=== PATIENT | male | born 1965 | race Two or more races ===

== ENCOUNTER → 2020-01-25 08:53 | Outpatient (BNVA) | payer OTHER, SELFPAY | PROVIDERS: PCP Internal Medicine Geriatric Medicine; Referring Provider Internal Medicine Geriatric Medicine; Visit Provider Internal Medicine | DX: Z76.89 Persons encountering health services in other specified circumstances (principal) ==

== ENCOUNTER → 2020-04-11 10:58 | Outpatient (BNVA) | payer OTHER, SELFPAY | PROVIDERS: PCP Internal Medicine Geriatric Medicine; Visit Provider Internal Medicine | DX: E11.65 Type 2 diabetes mellitus with hyperglycemia (principal); E78.5 Hyperlipidemia, unspecified; I10 Essential (primary) hypertension; E55.9 Vitamin D deficiency, unspecified; Z79.4 Long term (current) use of insulin | CPT/HCPCS: 82947; 96372; 99212 ==

== ENCOUNTER 2020-04-12 14:22 | Outpatient (REF) | payer OTHER, SELFPAY ==
[2020-04-12 15:30] LABS: Alanine Aminotransferase 22 U/L (0-40); Albumin Level 4.7 g/dL (3.5-5.0); Alkaline Phosphatase 72 U/L (39-117); Anion Gap 13 (12-20); Aspartate Amino Transferase 30 U/L (5-37); Bilirubin Total 0.5 mg/dL (0.0-1.0); Blood Urea Nitrogen 15 mg/dL (9-16); Calcium 10.1 mg/dL (8.4-10.2); Carbon Dioxide 30 mmol/L (22-29); Chloride 102 mmol/L (96-108); Cholesterol 158 mg/dL; Estimated Glomerular Filt Rate > 60; Glucose Random 301 mg/dL (60-115); HDL Cholesterol 77 mg/dL; LDL Cholesterol Calculated 72 mg/dl; Sodium 140 mmol/L (135-145); Total Protein 7.2 g/dL (6.5-8.0); Triglycerides 49 mg/dL
[2020-04-12 15:43] LABS: Creatinine Urine 126.92 mg/dL; Microalbum/Creatinine Ratio Ur 41.7 ug/mg cr
[2020-04-12 15:51] LABS: Free T4 (Free Thyroxine) 0.97 ng/dL (0.71-1.85); Thyroid Stimulating Hormone 0.53 uIU/mL (0.32-4.0); Vitamin D 25-OH Total 28.7 ng/mL (>30)
[2020-04-12 15:52] LABS: Vitamin B12 530 pg/mL (200-900)
[2020-04-13 05:32] LABS: LDL Cholesterol Direct 61 mg/dL (<100)
[2020-04-16 15:28] LABS: Glutamic acid decarboxylase Ab <5 IU/mL (<5)
[2020-04-16 17:26] LABS: Insulinoma associated 2 aatb <5.4 U/mL (<5.4)
[2020-04-19 21:27] LABS: Islet Cell Antibody Screen NEGATIVE (NEGATIVE)
== END 2020-04-12 14:23 | disposition home or self-care (01) ==
LOC: HO.LAB 14:22
PROVIDERS: PCP Internal Medicine Geriatric Medicine; Visit Provider Internal Medicine
DX: E11.9 Type 2 diabetes mellitus without complications (principal); E55.9 Vitamin D deficiency, unspecified
CPT/HCPCS: 36415; 80053; 80061; 82043; 82306; 82607; 83721; 84439; 84443; 86255; 86341

== ENCOUNTER → 2020-05-11 09:39 | Outpatient (BNVA) | payer OTHER, SELFPAY | PROVIDERS: PCP Internal Medicine Geriatric Medicine; Visit Provider Dietitian, Registered ==

== ENCOUNTER → 2020-06-15 09:31 | Outpatient (BNVA) | payer OTHER, SELFPAY | PROVIDERS: PCP Internal Medicine Geriatric Medicine; Visit Provider Dietitian, Registered | DX: E11.65 Type 2 diabetes mellitus with hyperglycemia (principal); Z79.4 Long term (current) use of insulin | CPT/HCPCS: 97803 ==

== ENCOUNTER → 2020-07-07 10:42 | Outpatient (BNVA) | payer OTHER, SELFPAY | PROVIDERS: PCP Internal Medicine Geriatric Medicine; Visit Provider Internal Medicine | DX: E11.65 Type 2 diabetes mellitus with hyperglycemia (principal); E78.5 Hyperlipidemia, unspecified; I10 Essential (primary) hypertension; E55.9 Vitamin D deficiency, unspecified; Z72.0 Tobacco use; Z90.5 Acquired absence of kidney; Z79.4 Long term (current) use of insulin | CPT/HCPCS: Q3014 ==

== ENCOUNTER → 2020-08-03 12:37 | Outpatient (BNVA) | payer OTHER, SELFPAY | PROVIDERS: PCP Internal Medicine Geriatric Medicine; Visit Provider Dietitian, Registered | DX: E11.65 Type 2 diabetes mellitus with hyperglycemia (principal); Z79.4 Long term (current) use of insulin | CPT/HCPCS: 97803 ==

== ENCOUNTER 2020-08-17 09:38 | Outpatient (REF) | payer OTHER, SELFPAY ==
--- NOTE | ~2020-08-17 | US_ITS ---
EXAMINATION: US RETROPERITONEAL LIMITED (RENAL ONLY) CLINICAL INFORMATION: Left renal neoplasm post cryoablation. COMPARISON: Previous renal ultrasound most recent May 2019 CT of the abdomen and pelvis most recent November 2018 TECHNIQUE: Grayscale and color imaging of the kidneys FINDINGS: RIGHT KIDNEY: 11.3 x 4.1 x 6.2 cm (SAG x AP x TRV). The kidney is normal in size, contour, and echogenicity. Renal cortical thickness is normal. There is a 1.4 x 1.5 x 1.2 cm echogenic lesion in the upper pole of the right kidney. This does not appear changed. No calculi. No hydronephrosis. LEFT KIDNEY: 10.3 x 5 x 4.8 cm (SAG x AP x TRV). The kidney is normal in size, contour, and echogenicity. Renal cortical thickness is normal. There is focal cortical thinning and heterogeneous hyper and hypoechoic area in the lower pole suggestive of post cryoablation change. This is similar to previous exams. There is an increasing hypoechoic lesion with internal echoes exophytic to the midpole measuring 1.7 x 1.1 x 1.7 cm. Differential would include a complex cystic and solid lesion. This is increased from 0.8 x 0.6 x 0.7 cm on previous renal ultrasound May 2019 and is new from previous CT scan. No calculi. No hydronephrosis. US/US renal BI IMPRESSION: Stable 1.5 cm echogenic lesion in the upper pole of the right kidney. This may correspond to the high attenuation renal lesion precontrast on previous CT scans. Stable post cryoablation changes to the lower pole of the left kidney. Increasing now 1.7 x 1.1 x 1.7 cm hypoechoic lesion in the midpole of the left kidney. Differential would include a complex cyst and solid lesion. Follow-up CT or MR of the kidneys with and without contrast is recommended. Findings will be communicated by the Vel[employer] work flow rf engineer Elly Sullivan.
== END 2020-08-17 09:39 | disposition home or self-care (01) ==
LOC: HO.US 09:38
PROVIDERS: Visit Provider Urology
DX: D49.519 Neoplasm of unspecified behavior of unspecified kidney (principal); C64.9 Malignant neoplasm of unspecified kidney, except renal pelvis
CPT/HCPCS: 76775

== ENCOUNTER → 2020-10-12 14:03 | Outpatient (BNVA) | payer OTHER, SELFPAY | PROVIDERS: PCP Internal Medicine Geriatric Medicine; Visit Provider Internal Medicine | DX: E11.65 Type 2 diabetes mellitus with hyperglycemia (principal); E78.5 Hyperlipidemia, unspecified; E55.9 Vitamin D deficiency, unspecified; I10 Essential (primary) hypertension; Z79.4 Long term (current) use of insulin | CPT/HCPCS: 82947; 99212 ==

== ENCOUNTER → 2020-11-28 10:46 | Outpatient (BNVA) | payer OTHER, SELFPAY | PROVIDERS: PCP Internal Medicine Geriatric Medicine; Referring Provider Internal Medicine Geriatric Medicine; Visit Provider Surgery | DX: R19.00 Intra-abdominal and pelvic swelling, mass and lump, unspecified site (principal) | CPT/HCPCS: 99202 ==

== ENCOUNTER 2021-01-27 07:21 | Outpatient (REF) | payer OTHER, SELFPAY ==
--- NOTE | ~2021-01-27 | CT_ITS ---
EXAMINATION: CT ABDOMEN AND PELVIS WITHOUT CONTRAST CLINICAL INFORMATION: Abdominal wall bulge COMPARISON: Previous CT of the abdomen and pelvis November 2018 and renal ultrasounds most recent August 2020 TECHNIQUE: Multidetector volumetric imaging was performed from the superior aspect of the liver through the pubic symphysis. Sagittal and coronal reformatted images were obtained on the technologist's workstation. This CT examination was performed using dose optimization techniques as appropriate, variously including the following: *Automated exposure control *Adjustment of mA and/or kV according to patient size (this includes techniques or standardized protocols for targeted exams where dose is matched to indication/reason for exam; i.e. extremities or head) *Use of iterative reconstruction technique DLP: 224 mGy-cm FINDINGS: LUNG BASES: There is a 5 mm calcified left lower lobe pulmonary nodule probably representing a calcified granuloma. There are increased interstitial markings seen at the lung bases. There is a tiny right pleural effusion or pleural thickening. LIVER, GALLBLADDER, AND BILIARY TREE: The liver is normal in size, shape, and attenuation. No focal hepatic lesion or biliary ductal dilatation is present. The gallbladder is unremarkable with no evidence of radiopaque gallstones, gallbladder wall thickening, or obvious pericholecystic inflammatory changes. PANCREAS: Pancreas appears atrophic. There are calcifications in the pancreas suggestive of changes of chronic pancreatitis. The main pancreatic duct is slightly dilated measuring 4 to 5 mm. These findings are similar to previous exam. SPLEEN: Unremarkable. ADRENAL GLANDS: Unremarkable. KIDNEYS AND URETERS: There is cortical thinning or scarring in the lower pole the left kidney. There are adjacent calcification questionable for cortical calcification versus stone. There is a peripheral calcification in the upper pole the right kidney. When compared with previous CT scan without contrast may be related to a complex cyst. This is not well appreciated without IV contrast. BLADDER: Not optimally distended and not well evaluated. GASTROINTESTINAL TRACT: There is stool throughout the colon suggestive of constipation. The small and large bowel are otherwise unremarkable. The appendix is unremarkable. ABDOMINAL WALL: No hernia is seen. LYMPH NODES: Normal. VASCULAR: Unremarkable. PELVIC VISCERA: Unremarkable. OSSEOUS STRUCTURES: There is mild curvature of the lower lumbar spine to the left. There is an L5 pars defect. CT/CT abdomen pelvis wo con IMPRESSION: No hernia seen. Constipation. Cortical thinning or scarring in the lower pole of the left kidney and adjacent calcification. Small calcification in the peripheral upper pole the right kidney. Previously identified right upper pole cyst is not well visualized without IV contrast. Stable changes of chronic pancreatitis. Fleischner guidelines were followed.
== END 2021-01-27 07:22 | disposition home or self-care (01) ==
LOC: HO.CT 07:21
PROVIDERS: PCP Internal Medicine Geriatric Medicine; Visit Provider Surgery
DX: K59.00 Constipation, unspecified (principal); N02.9 Recurrent and persistent hematuria with unspecified morphologic changes
CPT/HCPCS: 74176

== ENCOUNTER → 2021-02-02 12:39 | Outpatient (BNVA) | payer OTHER, SELFPAY | PROVIDERS: PCP Internal Medicine Geriatric Medicine; Visit Provider Dietitian, Registered | DX: E11.65 Type 2 diabetes mellitus with hyperglycemia (principal); Z79.4 Long term (current) use of insulin | CPT/HCPCS: 97803 ==

== ENCOUNTER → 2021-02-16 09:54 | Outpatient (BNVA) | payer OTHER, SELFPAY | PROVIDERS: PCP Internal Medicine Geriatric Medicine; Referring Provider Internal Medicine Geriatric Medicine; Visit Provider Surgery | DX: R19.00 Intra-abdominal and pelvic swelling, mass and lump, unspecified site (principal) | CPT/HCPCS: 99212 ==

== ENCOUNTER → 2021-05-08 12:26 | Outpatient (BNVA) | payer OTHER, SELFPAY | PROVIDERS: PCP Internal Medicine Geriatric Medicine; Visit Provider Dietitian, Registered | DX: E11.65 Type 2 diabetes mellitus with hyperglycemia (principal); Z79.4 Long term (current) use of insulin | CPT/HCPCS: 97803 ==

== ENCOUNTER → 2021-07-13 10:11 | Outpatient (BNVA) | payer OTHER, SELFPAY | PROVIDERS: PCP Internal Medicine Geriatric Medicine; Visit Provider Dietitian, Registered | DX: E11.65 Type 2 diabetes mellitus with hyperglycemia (principal); Z79.4 Long term (current) use of insulin | CPT/HCPCS: 97803 ==

== ENCOUNTER → 2021-07-18 07:52 | Outpatient (BNVA) | payer OTHER, SELFPAY | PROVIDERS: PCP Internal Medicine Geriatric Medicine; Visit Provider Nurse Practitioner Gerontology | DX: E11.65 Type 2 diabetes mellitus with hyperglycemia (principal); Z79.4 Long term (current) use of insulin; E78.5 Hyperlipidemia, unspecified; E55.9 Vitamin D deficiency, unspecified; I10 Essential (primary) hypertension | CPT/HCPCS: 82947; 83036; 99212 ==

== ENCOUNTER → 2021-08-16 09:36 | Outpatient (BNVA) | payer OTHER, SELFPAY | PROVIDERS: PCP Internal Medicine Geriatric Medicine; Visit Provider Registered Nurse Diabetes Educator | DX: E11.65 Type 2 diabetes mellitus with hyperglycemia (principal); Z79.4 Long term (current) use of insulin | CPT/HCPCS: 99211 ==

== ENCOUNTER → 2021-11-14 12:09 | Outpatient (BNVA) | payer OTHER, SELFPAY | PROVIDERS: PCP Internal Medicine Geriatric Medicine; Visit Provider Dietitian, Registered | DX: E11.65 Type 2 diabetes mellitus with hyperglycemia (principal); Z79.4 Long term (current) use of insulin; Z71.3 Dietary counseling and surveillance | CPT/HCPCS: 97803 ==

== ENCOUNTER 2021-12-19 13:59 | Outpatient (REF) | payer OTHER, SELFPAY ==
--- NOTE | ~2021-12-19 | XR_ITS ---
EXAMINATION: XR CHEST CLINICAL INFORMATION: COPD exacerbation COMPARISON: Previous chest x-ray most recent January 2019 and CTA of the chest February 2019 TECHNIQUE: 2 views of the chest were obtained. FINDINGS: The cardiac and mediastinal contours are stable. The lungs are well inflated. There is a 4 mm stable dense nodule at the left lung base suggestive of a calcified granuloma. Lungs are otherwise clear. No pleural effusion or pneumothorax. Bony structures are unremarkable. XR/XR chest 2V IMPRESSION: Well-inflated lungs. No evidence for acute disease in the chest.
== END 2021-12-19 14:00 | disposition home or self-care (01) ==
LOC: HO.XRAY 13:59
PROVIDERS: PCP Internal Medicine Geriatric Medicine; Visit Provider Family Medicine
DX: J44.1 Chronic obstructive pulmonary disease with (acute) exacerbation (principal); R50.9 Fever, unspecified; E11.65 Type 2 diabetes mellitus with hyperglycemia; Z79.4 Long term (current) use of insulin
CPT/HCPCS: 71046; 99211

== ENCOUNTER 2022-01-16 14:27 | Outpatient (REF) | payer OTHER, SELFPAY ==
--- NOTE | ~2022-01-16 | US_ITS ---
EXAMINATION: US VENOUS ULTRASOUND WITH DOPPLER LOWER EXTREMITY, LEFT CLINICAL INFORMATION: Left leg pain and swelling. COMPARISON: None TECHNIQUE: Ultrasound of the deep veins is performed from the hip to the calf with compression sonography and color and pulse Doppler assessment. Spectral analysis with color-flow imaging is performed. FINDINGS: There is normal venous compression and respiratory variation and augmented flow. The visualized common femoral vein, superficial femoral vein, profunda femoral vein, popliteal vein, and the trifurcation region shows no evidence of deep venous thrombosis. There is no significant popliteal fossa cyst. There are small varicose veins visualized in distal anterior calf. If the patient's symptoms persist, followup ultrasound in 5 days 7 days might be of value to exclude proximal propagation from a non-visualized calf vein. US/US venous duplex LE LT IMPRESSION: No DVT demonstrated in the left lower extremity. Small varicose vein seen along the distal left anterior lower leg.
== END 2022-01-16 14:28 | disposition home or self-care (01) ==
LOC: HO.US 14:27
PROVIDERS: Visit Provider Nurse Practitioner Primary Care
DX: I80.9 Phlebitis and thrombophlebitis of unspecified site (principal); M79.605 Pain in left leg
CPT/HCPCS: 93971

== ENCOUNTER → 2022-06-14 08:56 | Outpatient (BNVA) | payer OTHER, SELFPAY | PROVIDERS: PCP Internal Medicine Geriatric Medicine; Visit Provider Surgery Vascular Surgery | DX: I83.12 Varicose veins of left lower extremity with inflammation (principal) | CPT/HCPCS: 99212 ==

== ENCOUNTER → 2022-07-02 12:37 | Outpatient (BNVA) | payer OTHER, SELFPAY | PROVIDERS: PCP Internal Medicine Geriatric Medicine; Visit Provider Nurse Practitioner Family | DX: C64.9 Malignant neoplasm of unspecified kidney, except renal pelvis (principal); D49.519 Neoplasm of unspecified behavior of unspecified kidney | CPT/HCPCS: 99202 ==

== ENCOUNTER 2022-07-11 10:11 | Outpatient (REF) | payer OTHER, SELFPAY ==
--- NOTE | ~2022-07-11 | US_ITS ---
EXAMINATION: US LOWER EXTREMITY VENOUS (REFLUX EXAM), BILATERAL CLINICAL INDICATION: Varicose veins COMPARISON: Left lower extremity duplex on 01/16/2022 TECHNIQUE: Color flow triplex imaging and compression Doppler was performed to evaluate both the deep and the superficial systems bilaterally. To evaluate the superficial system, the examination was performed in the upright position. Color-flow Doppler ultrasound and compression ultrasound were utilized. In addition, maneuvers were utilized to demonstrate reflux. FINDINGS: 1. DEEP VENOUS ULTRASOUND OF THE RIGHT LOWER EXTREMITY: Common Femoral Vein: Compressible, normal respiratory variation and augmented flow. Femoral Vein: Compressible, normal color flow and augmentation. Popliteal Vein: Compressible, normal augmentation. Deep Reflux: There is no evidence of reflux in the deep system in either the common femoral vein or the popliteal vein. There is no evidence of a Owens's cyst. 2. SUPERFICIAL ULTRASOUND WITH DOPPLER OF RIGHT LOWER EXTREMITY: GREAT SAPHENOUS VEIN: Saphenofemoral Junction: 0.5 cm; Reflux: 0 ms Proximal Thigh: 0.4 cm; Reflux: 0 ms Mid Thigh: 0.3 cm; Reflux: 0 ms Above Knee: 0.2 cm; Reflux: 0 ms At Knee: 0.3 cm; Reflux: 0 ms Below Knee: 0.3 cm; Reflux: 0 ms Mid Calf: 0.2 cm; Reflux: 0 ms Ankle: 0.3 cm; Reflux: 0 ms DUPLICATED MEDIAL GREAT SAPHENOUS VEIN: Diameter: None Imaged Reflux: NA DUPLICATED LATERAL GREAT SAPHENOUS VEIN: Proximal: 0.2 cm; Reflux: 0 ms Distal: 0.2 cm; Reflux: 0 ms SMALL SAPHENOUS VEIN: Proximal: 0.2 cm; Reflux: 0 ms Distal: 0.2 cm; Reflux: 0 ms VEIN OF GIACOMINI: None Imaged. PERFORATORS: Location: None Imaged Size: NA Reflux: NA VARICOSITIES: Location: Distal thigh Size: 0.3 cm Reflux: NA 3. DEEP VENOUS ULTRASOUND OF THE LEFT LOWER EXTREMITY: Common Femoral Vein: Compressible, normal respiratory variation and augmented flow. Femoral Vein: Compressible, normal color flow and augmentation. Popliteal Vein: Compressible, normal augmentation. Deep Reflux: There is no evidence of reflux in the deep system in either the common femoral vein or the popliteal vein. There is no evidence of a Owens's cyst. 4. SUPERFICIAL ULTRASOUND WITH DOPPLER OF LEFT LOWER EXTREMITY: GREAT SAPHENOUS VEIN: Saphenofemoral Junction: 0.7 cm; Reflux: 0 ms Proximal Thigh: 0.4 cm; Reflux: 0 ms Mid Thigh: 0.2 cm; Reflux: 0 ms Above Knee: 0.2 cm; Reflux: 0 ms At Knee: 0.2 cm; Reflux: 0 ms Below Knee: 0.2 cm; Reflux: 0 ms Mid Calf: 0.2 cm; Reflux: 0 ms Ankle: 0.2 cm; Reflux: 0 ms DUPLICATED MEDIAL GREAT SAPHENOUS VEIN: Diameter: None Imaged Reflux: NA DUPLICATED LATERAL GREAT SAPHENOUS VEIN: Diameter: None Imaged Reflux: NA SMALL SAPHENOUS VEIN: Proximal: 0.3 cm; Reflux: 0 ms Distal: 0.3 cm; Reflux: 0 ms VEIN OF GIACOMINI: None Imaged. PERFORATORS: Location: None Imaged Size: NA Reflux: NA VARICOSITIES: Location: None Imaged Size: NA Reflux: NA US/US venous duplex LE BI IMPRESSION: 1. No evidence of deep venous thrombosis. 2. The saphenous systems are competent bilaterally.
== END 2022-07-11 10:12 | disposition home or self-care (01) ==
LOC: HO.US 10:11
PROVIDERS: PCP Internal Medicine Geriatric Medicine; Visit Provider Surgery Vascular Surgery
DX: I83.12 Varicose veins of left lower extremity with inflammation (principal)
CPT/HCPCS: 93970

== ENCOUNTER → 2022-07-26 13:04 | Outpatient (BNVA) | payer OTHER, SELFPAY | PROVIDERS: PCP Internal Medicine Geriatric Medicine; Visit Provider Surgery Vascular Surgery | DX: R22.42 Localized swelling, mass and lump, left lower limb (principal) | CPT/HCPCS: 99212 ==

== ENCOUNTER 2022-08-13 08:13 | Outpatient (REF) | payer OTHER, SELFPAY | END 2022-08-13 08:14 | disposition home or self-care (01) | LOC: HO.LNP 08:13 | PROVIDERS: Visit Provider Surgery Vascular Surgery | DX: R22.42 Localized swelling, mass and lump, left lower limb (principal) | CPT/HCPCS: 11403 ==

== ENCOUNTER → 2022-08-13 13:25 | Outpatient (BNVA) | payer OTHER, SELFPAY | PROVIDERS: PCP Internal Medicine Geriatric Medicine; Visit Provider Surgery Vascular Surgery | DX: R22.42 Localized swelling, mass and lump, left lower limb (principal) | CPT/HCPCS: 27632 ==

== ENCOUNTER 2022-08-14 14:47 | Outpatient (REF) | payer OTHER, SELFPAY | END 2022-08-14 14:48 | disposition home or self-care (01) | LOC: HO.LNP 14:47 | PROVIDERS: Visit Provider Surgery Vascular Surgery | DX: R22.42 Localized swelling, mass and lump, left lower limb (principal) | CPT/HCPCS: 88305 ==

== ENCOUNTER 2022-08-17 08:36 | Outpatient (REF) | payer OTHER, SELFPAY ==
[2022-08-17 09:48] LABS: Blood Urea Nitrogen 16 mg/dL (9-16); Estimated Glomerular Filt Rate > 60
== END 2022-08-17 08:37 | disposition home or self-care (01) ==
LOC: HO.LAB 08:36
PROVIDERS: PCP Internal Medicine Geriatric Medicine; Visit Provider Nurse Practitioner Family
DX: Z12.5 Encounter for screening for malignant neoplasm of prostate (principal); R39.15 Urgency of urination; N40.0 Benign prostatic hyperplasia without lower urinary tract symptoms
CPT/HCPCS: 36415; 82565; 84153; 84520

== ENCOUNTER → 2022-08-27 09:21 | Outpatient (BNVA) | payer OTHER, SELFPAY | PROVIDERS: PCP Internal Medicine Geriatric Medicine; Visit Provider Surgery Vascular Surgery | DX: Z48.817 Encounter for surgical aftercare following surgery on the skin and subcutaneous tissue (principal); Z87.2 Personal history of diseases of the skin and subcutaneous tissue | CPT/HCPCS: 99212 ==

== ENCOUNTER 2022-09-12 08:49 | Outpatient (REF) | payer OTHER, SELFPAY ==
--- NOTE | ~2022-09-12 | CT_ITS ---
EXAMINATION: CT ABDOMEN AND PELVIS WITHOUT AND WITH CONTRAST CLINICAL INFORMATION: Renal neoplasm COMPARISON: Baseline including 01/27/2021 TECHNIQUE: Multidetector volumetric imaging was performed of the abdomen and pelvis before and after the IV administration of 85 mL of Omnipaque 350 intravenous contrast. Sagittal and coronal reformatted images were obtained on the technologist's workstation. This CT examination was performed using dose optimization techniques as appropriate, variously including the following: *Automated exposure control *Adjustment of mA and/or kV according to patient size (this includes techniques or standardized protocols for targeted exams where dose is matched to indication/reason for exam; i.e. extremities or head) *Use of iterative reconstruction technique DLP: 259 mGy-cm FINDINGS: LUNG BASES: Granuloma in pleural-parenchymal scarring both bases similar. LIVER, GALLBLADDER, AND BILIARY TREE: The liver is normal in size, shape, and attenuation. No focal hepatic lesion. Prominence of the extrahepatic biliary ductal system is stable. No choledocholithiasis or gross pancreatic head lesion.. The gallbladder is unremarkable with no evidence of radiopaque gallstones, gallbladder wall thickening, or obvious pericholecystic inflammatory changes. PANCREAS: Pancreatic parenchyma is markedly atrophic. Notable dilatation of the pancreatic duct. No discrete pancreatic head mass. Tiny calcific foci suggests the constellation of findings to be sequela of chronic pancreatitis. Correlate with patient history. No fluid collections. SPLEEN: Unremarkable ADRENAL GLANDS: Unremarkable KIDNEYS AND URETERS: Renal cortical cystic changes again noted. Presumably post cryoablation changes left lower pole cortex posterolaterally. Enlarging enhancing soft tissue attenuating midpole left kidney now measuring up to 18 mm. This is nonspecific but is suspicious for recurrent disease. No perinephric abnormality. BLADDER: Unremarkable GASTROINTESTINAL TRACT: The small and large bowel are unremarkable. The appendix is unremarkable. ABDOMINAL WALL: No significant hernia is appreciated. LYMPH NODES: Normal VASCULAR: Unremarkable PELVIC VISCERA: Unremarkable OSSEOUS STRUCTURES: Unremarkable CT/CT abdomen pelvis wo/w IV con IMPRESSION: 1. Enlarging enhancing soft tissue attenuating lesion upper to midpole left kidney suspicious for recurrent disease. 2. Changes of chronic pancreatitis. 3. No new findings. Fleischner guidelines were followed.
[2022-09-12] MEDS: iohexoL 350 MG/ML 100 ML INFUS..BTL IV (10:25)
== END 2022-09-12 08:50 | disposition home or self-care (01) ==
LOC: HO.CT 08:49
PROVIDERS: PCP Internal Medicine Geriatric Medicine; Visit Provider Nurse Practitioner Family
DX: C64.9 Malignant neoplasm of unspecified kidney, except renal pelvis (principal)
CPT/HCPCS: 74178; Q9967

== ENCOUNTER 2022-09-14 12:21 | Outpatient (AMB) | payer OTHER, SELFPAY ==
--- NOTE | 2022-09-14 12:23 | MHC.OFFVIS ---
Intake Vital Signs 09/14/22 12:28 Height 5 ft 6 in Weight 117 lb 15.157 oz BMI 19.0 BP 118/70 Blood Pressure Location Rt brachial Position Sitting Pulse 81 Pulse Source Pulse Oximeter Intake Visit Reasons: DM Intake Note: Patient present today to follow up on Type 2 Diabetes Mellitus. Previously follow by Renate Quintanilla. Last Diabetic Eye exam: Patient is requesting a referral. Due for Exam Last Podiatry Visit: Patient is requesting a referral. Random Glucose: 225 mg/dl HgA1C: 8.4% Mainframe Applications Developer Required: Yes Mainframe Applications Developer Language: Forensics Analyst Name: Catracho [email or web address] Information Interpreted: non-clinical & clinical Accompanied by: Self / Same As Patient Allergies No Known Allergies Allergy (Verified 09/14/22 12:30) Medication List - Last Reviewed 09/14/22 by JAYSON Phan acetaminophen 500 mg PO ONCE PRN albuterol sulfate 90 mcg/actuation 0 mcg inhalation alcohol swabs 0 pad topical aspirin 81 mg PO DAILY atorvastatin 40 mg PO DAILY 30 days blood sugar diagnostic As directed blood sugar diagnostic (Brightfish Ultra Test strips) As directed blood-glucose meter (Lendsquareuch Ultra2 Meter) As directed budesonide mg inhalation DAILY PRN buprenorphine-naloxone 8-2 mg (Suboxone) 10 mg sublingual BID cephalexin 500 mg PO BID ciclopirox 8% mL topical clonazepam 2 mg PO BEDTIME clonazepam 1 mg PO BID PRN dextrose 40% (Glutose-15) grams PO docusate sodium (DOK) 100 mg PO DAILY PRN flash glucose scanning reader (Enigma Software ProductionsStyle Kasey 2 Walnut) As directed checks 8X/day flash glucose sensor (FreeStyle Kasey 2 Sensor kit) USE DIRECTED TO TEST BLOOD SUGAR 8 TIMES PER DAY fluticasone furoate-vilanterol 100-25 mcg/dose (Breo Ellipta) 1 ea inhalation DAILY gabapentin 300 mg PO DAILY insulin aspart U-100 2 - 3 units subcut TID insulin glargine 10 units subcut BEDTIME lancets As directed lancing device with lancets (Brightfish Delica Plus Lancing Device kit) As directed lidocaine 5% 0 patches topical metformin ER 1,000 mg (2 x 500 mg) PO DAILY 30 days montelukast 10 mg PO DAILY multivitamin 1 tab PO DAILY naloxone 4 mg/actuation 0 sprays intranasal nicotine 0 patches transdermal pen needle, diabetic As directed ramelteon 8 mg PO BEDTIME sennosides (senna) 8.6 mg PO DAILY sennosides (senna) 17.2 mg PO DAILY venlafaxine ER 150 mg PO QAM venlafaxine ER 75 mg PO QAM HPI HPI Comments History of Present Illness Details Patient is a 57 yo male with DM type 2 diagnosed in 1988 when he was hospitalized with HHS/DKA who presents for management of diabetes. He last saw Renate Quintanilla NP on 07/18/21 Past medical history: Diabetes type 2, hypertension, hyperlipidemia, vitamin-D deficiency Pancreatitis after being kicked in the stomach by horse Micro and macrovascular complications: Diabetes medications: Metformin 1000 mg BID Lantus 10 units, NovoLog 2-3 units ac meals. Does report uses extra dose at night if bg is elevated. He had history of pancreatitis while on Januvia Blood glucose monitoring: In the past 2 weeks C GM is active 89% an average blood glucose of , GMI 8.2 %. Blood glucose in target range of 70-180, 40%. Blood glucose low from 54-690 %. Blood glucose very low less than 54 %. Blood glucose above goal 60 %. Pattern shows post-meal hyperglycemia Symptoms reported: + numbness, tingling in lower extremities. Denies cramping in lower extremities Hypoglycemia: Rare Reports symptoms of fatigue, shakiness, sweating. Carries glucose gel at all times Hyperglycemia: +urinary frequency, +nocturia, +polydypsia Exercise: 1/2 - 1 hour a day. Header Setup Operator : meghan. Clinical Services Director: denies Dental exam: has upcoming appointment, Ophthalmology evaluation: needs to make appt Other specialists: psychiatrist, therapist, nephrology Laboratory Tests 04/11/20 04/12/20 04/12/20 11:49 14:32 14:32 Hgb A1c (Clinic) 10.4 H LDL Cholesterol Di rect 61 25-OH Vitamin D To wayne 28.7 Microalb/Creat Rat io Islet Cell Ab Scre en NEGATIVE Islet Cell Ab Tite r TNP Anti-IA2 Antibody CARLOZ Antibody <5 04/12/20 04/12/20 14:32 14:32 Hgb A1c (Clinic) LDL Cholesterol Di rect 25-OH Vitamin D To wayne Microalb/Creat Rat io 41.7 Islet Cell Ab Scre en Islet Cell Ab Tite r Anti-IA2 Antibody <5.4 CARLOZ Antibody PFSH Medical History Abdominal wall bulge BPH loc w urin obs/LUTS COPD (chronic obstructive pulmonary disease) GERD (gastroesophageal reflux disease) H. pylori infection History of pancreatitis HLD (hyperlipidemia) HTN (hypertension) Hx of malignant neoplasm of renal pelvis Hypoglycemia unawareness associated with type 2 diabetes mellitus Mood disorder Opioid abuse Pulmonary tuberculosis Seborrheic dermatitis T2DM (type 2 diabetes mellitus) Tubular adenoma of colon Vitamin D deficiency Surgical History History of esophagogastroduodenoscopy (EGD) History of surgery Hx of colonoscopy Hx of hernia repair Hx of partial nephrectomy Hx of prior ablation treatment Family History Father Liver cancer Diabetes Alcohol abuse Mother Diabetes Breast cancer Social History Household Members: None Patient Tobacco Use Status: Current everyday Tobacco user Cigarettes Per Day: 2 Physical Exam Vital Signs: Last Vital Signs Pulse 81 09/14/22 12:28 BP 118/70 09/14/22 12:28 BMI result Body Mass Index 19.0 Absence of Cushingoid features. Absence of acromegalic features. Neck exam reveals nl size thyroid about 15 gms. No thyroid nodules palpable. No carotid bruits present. Lungs CTA. Heart S1 S2, Reg R/R. No M/R/ G. Skin exam reveals absence of vitiligo or acanthosis nigricans. Abdominal exam reveals Soft NT/ND with NA BS. No organomegaly present. Neck Other: . Extrem Other: Visual exam of foot performed. No ulcerations or open lesions. No onchomycosis, no callouses.Pulses 2 + distally Sensation intact to monofilament exam. Vibratory sensation sensed is intact with 128 Hz tuning fork. The left lower extremity has an open wound s/P surgery that the pt has f/u next wk Results AMB Hemoglobin A1c AMB Hemoglobin A1c 8.4 % Last Edit by JAYSON Phan on 09/14/22 12:56 Assessment & Plan Assessment & Plan (1) T2DM (type 2 diabetes mellitus): Code(s): E11.9 - Type 2 diabetes mellitus without complications Qualifiers: Diabetes mellitus complication status: with hyperglycemia Diabetes mellitus detention insulin use: with detention use Qualified Code(s): E11.65 - Type 2 diabetes mellitus with hyperglycemia; Z79.4 - manager terminal (current) use of insulin Plan: This is a 57-year-old male with history of type 2 diabetes being treated with basal-bolus insulin and metformin with fair glycemic control and no known microvascular or macrovascular complications. He appears to be very thin most likely is insulin deficient Plan is to increase the NovoLog to 6-7 units pre meals . I told him report any hypoglycemia. Will also check lipid profile and microalbumin to creatinine ratio. Will have patient follow-up with refrigerated cargo clerk. Stressed importance of glycemic control the correlation of poor glycemic control with development and progression of complications. He was told to follow-up with the surgeon regarding his lower extremity lesion Orders: Orders Lipid Panel Today E11.9 - Type 2 diabetes mellitus without complications Microalbumin, Random (w Creat) Today E11.9 - Type 2 diabetes mellitus without complications AMB Hemoglobin A1c Today E11.9 - Type 2 diabetes mellitus without complications Coding Level of Care Code Est Pt Level 4 (47563) Diagnoses T2DM (type 2 diabetes mellitus) E11.65; Z79.4 Diabetes mellitus complication status: with hyperglycemia Diabetes mellitus intermediate accountant insulin use: with intermediate accountant use
[2022-09-14 12:28] VITALS: BP 118/70; PULSE 81; BMI 19.0
[2022-09-14 12:48] LABS: Glucose, Whole Blood 225 mg/dL (60-115)
== END 2022-09-14 13:03 | disposition home or self-care (01) ==
PROVIDERS: PCP Internal Medicine Geriatric Medicine; Visit Provider Internal Medicine Endocrinology, Diabetes & Metabolism
DX: E11.65 Type 2 diabetes mellitus with hyperglycemia (principal); Z79.4 Long term (current) use of insulin; E11.9 Type 2 diabetes mellitus without complications
CPT/HCPCS: 99214

== ENCOUNTER → 2022-09-14 12:21 | Outpatient (BNVA) | payer OTHER, SELFPAY | PROVIDERS: PCP Internal Medicine Geriatric Medicine; Visit Provider Internal Medicine Endocrinology, Diabetes & Metabolism | DX: E11.65 Type 2 diabetes mellitus with hyperglycemia (principal); Z79.4 Long term (current) use of insulin | CPT/HCPCS: 82947; 83036; 99212 ==

== ENCOUNTER 2022-09-18 09:57 | Outpatient (AMB) | payer OTHER, SELFPAY ==
--- NOTE | 2022-09-18 09:59 | A.OFFVIS_ITS ---
Intake Intake Visit Reasons: 3 week leg check Intake Note: Patient is here for a 3 week leg check , pt stated incision is still oozing and its very painful even after completing antibiotic treatment Parachute Harness Rigger Required: Yes Parachute Harness Rigger Name: Teresa ROYAL Allergies No Known Allergies Allergy (Verified 09/18/22 10:01) HPI 3 week leg check HPI Details Complex 57-year-old gentleman presents for follow-up status post left leg mass excision. He had been doing relatively well for the 1st week or 2 it eventually opened up. There was some surrounding cellulitis. He has undergone a course of p.o. antibiotics with no significant improvement. Wound is been getting worse and it is quite tender form. He now presents for follow-up evaluation. [facility] Medical History Abdominal wall bulge BPH loc w urin obs/LUTS COPD (chronic obstructive pulmonary disease) GERD (gastroesophageal reflux disease) H. pylori infection History of pancreatitis HLD (hyperlipidemia) HTN (hypertension) Hx of malignant neoplasm of renal pelvis Hypoglycemia unawareness associated with type 2 diabetes mellitus Mood disorder Opioid abuse Pulmonary tuberculosis Seborrheic dermatitis T2DM (type 2 diabetes mellitus) Tubular adenoma of colon Vitamin D deficiency Surgical History History of esophagogastroduodenoscopy (EGD) History of surgery Hx of colonoscopy Hx of hernia repair Hx of partial nephrectomy Hx of prior ablation treatment Family History Father Liver cancer Diabetes Alcohol abuse Mother Diabetes Breast cancer Social History Household Members: None Patient Tobacco Use Status: Current everyday Tobacco user Cigarettes Per Day: 2 Review of Systems Const All systems reviewed & are unremarkable except as noted in HPI and below Reports no additional complaints ENT Reports Normal hearing present Card Denies chest pain, Denies chest pain at rest, Denies chest pain with activity and Denies pedal edema Resp Denies cough GI Denies abdominal pain Musc Denies abnormal gait, Denies muscle cramps and Denies radiating pain into limb Skin/Breast Denies skin ulcer and Denies wounds Neuro Reports Normal hearing present and Denies abnormal gait Psych Reports no additional complaints Physical Exam Const General: cooperative, healthy appearing and comfortable Orientation/consciousness: oriented to person, oriented to place and oriented to time HEENT Head: Yes normal to inspection Neck Neck: Yes normal visual inspection Carotids: no bruits Chest Chest palpation & inspection: normal inspection of the chest Resp Effort & Inspection: normal respiratory effort and able to speak in complete sentences Auscultation: clear to auscultation bilaterally, no crackles, no rales, no rhonchi and no wheezes Cardio Rate: regular rate Rhythm: regular rhythm Heart sounds: S1 normal heart sound present and S2 normal heart sound present Bruits: no carotid bruits Peripheral pulses: Peripheral pulses 2+ throughout GI Inspection: Yes normal to inspection Skin Other: Left pretibial surface approximately 2 cm opening Wounds: no wounds Hair: normal Neuro General: oriented to person, oriented to place and oriented to time Cranial nerves: Yes CN's II-XII intact bilaterally and Yes Normal hearing present Cognition (Neuro): normal cognition Motor exam (neuro): 5/5 motor strength present throughout Extrem Other: venous exam: No significant superficial varicosities or spider tel angiectasias, minimal edema General: No clubbing, No cyanosis and No edema Psych Appearance: grossly normal Mental Status: mental status grossly normal Speech and movement: Normal speech and movement present Assessment & Plan Assessment & Plan (1) Nonhealing ulcer of left lower extremity: Code(s): L97.929 - Non-pressure chronic ulcer of unspecified part of left lower leg with unspecified severity Plan: In short Hubert has a nonhealing left lower extremity ulcer. He needs operative debridement of that wound to get to a better granulation base to allow for wound healing. I did discuss this with the patient he is in agreement. Patient will require left lower extremity debridement. Risks benefits complications were discussed in detail with the patient with well drill operator rotary drill present. Thank you for allowing us to assist in his care. Coding Level of Care Code Est Pt Level 4 (30284) Diagnoses Nonhealing ulcer of left lower extremity L97.929
== END 2022-09-18 10:22 | disposition home or self-care (01) ==
PROVIDERS: PCP Internal Medicine Geriatric Medicine; Visit Provider Surgery Vascular Surgery
DX: L97.929 Non-pressure chronic ulcer of unspecified part of left lower leg with unspecified severity (principal)
CPT/HCPCS: 99214

== ENCOUNTER → 2022-09-18 09:57 | Outpatient (BNVA) | payer OTHER, SELFPAY | PROVIDERS: PCP Internal Medicine Geriatric Medicine; Visit Provider Surgery Vascular Surgery | DX: L97.929 Non-pressure chronic ulcer of unspecified part of left lower leg with unspecified severity (principal); L03.116 Cellulitis of left lower limb; E11.649 Type 2 diabetes mellitus with hypoglycemia without coma; F11.20 Opioid dependence, uncomplicated | CPT/HCPCS: 99212 ==

== ENCOUNTER 2022-09-21 12:43 | Outpatient (AMB) | payer OTHER, SELFPAY ==
--- NOTE | 2022-09-21 13:03 | A.OFFVIS_ITS ---
Intake Intake Visit Reasons: CT- follow up(set) Intake Note: Patient is present for follow up CT Scan (imaging 09/12) Urology Medications: none Blood Thinner: aspirin Instructor Substitute Cosmetology Required: No Instructor Substitute Cosmetology Name: Lee [id number] Accompanied by: Self / Same As Patient Allergies No Known Allergies Allergy (Verified 09/21/22 13:22) Medication List - Last Reconciled 09/21/22 by JUSTIN Caballero-PRANEETH acetaminophen 500 mg PO ONCE PRN albuterol sulfate 90 mcg/actuation 0 mcg inhalation alcohol swabs 0 pad topical aspirin 81 mg PO DAILY atorvastatin 40 mg PO DAILY 30 days blood sugar diagnostic As directed blood sugar diagnostic (made.comuch Ultra Test strips) As directed blood-glucose meter (made.comuch Ultra2 Meter) As directed budesonide mg inhalation DAILY PRN buprenorphine-naloxone 8-2 mg (Suboxone) 10 mg sublingual BID cephalexin 500 mg PO BID ciclopirox 8% mL topical clonazepam 2 mg PO BEDTIME clonazepam 1 mg PO BID PRN dextrose 40% (Glutose-15) grams PO docusate sodium (DOK) 100 mg PO DAILY PRN flash glucose scanning reader ([employer] Kasey 2 Henry) As directed checks 8X/day flash glucose sensor (FreeStyle Kasey 2 Sensor kit) USE DIRECTED TO TEST BLOOD SUGAR 8 TIMES PER DAY fluticasone furoate-vilanterol 100-25 mcg/dose (Breo Ellipta) 1 ea inhalation DAILY gabapentin 300 mg PO DAILY insulin aspart U-100 2 - 3 units subcut TID insulin glargine 10 units subcut BEDTIME lancets As directed lancing device with lancets (ContentForest Delica Plus Lancing Device kit) As directed lidocaine 5% 0 patches topical metformin ER 1,000 mg (2 x 500 mg) PO DAILY 30 days montelukast 10 mg PO DAILY multivitamin 1 tab PO DAILY naloxone 4 mg/actuation 0 sprays intranasal nicotine 0 patches transdermal pen needle, diabetic As directed ramelteon 8 mg PO BEDTIME sennosides (senna) 8.6 mg PO DAILY sennosides (senna) 17.2 mg PO DAILY venlafaxine ER 150 mg PO QAM venlafaxine ER 75 mg PO QAM HPI HPI Comments History of Present Illness Details Hubert is a pleasant 57-year-old male patient of Dr. Name. He has a past medical history of COPD, GERD, H pylori infection, history of pancreatitis, HLD, HTN, mood disorder, opioid abuse, pulmonary tuberculosis, type 2 diabetes, and vitamin-D deficiency. He presents to the office today for a follow up. Of note, patient was seen as a new patient approximately 2 and half months ago for history of renal cell carcinoma at which time a CT of the abdomen and pelvis was ordered. These results were reviewed with the patient today. Renal cortical cystic changes again noted. Presumably post cryoablation changes left lower pole cortex posterolaterally. Enlarging enhancing soft tissue attenuating midpole left kidney now measuring up to 18 mm. This is nonspecific but is suspicious for recurrent disease. No perinephric abnormality. The bladder is unremarkable. When asked he reports to be doing and feeling well. He reports his upcoming procedure with vascular surgery for ongoing issues to his left lower extremity. He reports to be undergoing surgical intervention soon. When asked he denies any urinary issues or concerns. When asked he denies urinary urgency, urinary frequency, incontinence, nocturia, hematuria, dysuria, foul smelling urine, changes to urinary stream, flank pain, fever, and or chills. PSA 08/24-- 0.10. In office urinalysis results reviewed with the patient. Discussed obtaining MRI imaging for further assessment and evaluation of enhancing soft tissue noted on CT. Patient otherwise denies any issues or concerns at this time. [facility] Medical History Abdominal wall bulge BPH loc w urin obs/LUTS COPD (chronic obstructive pulmonary disease) GERD (gastroesophageal reflux disease) H. pylori infection History of pancreatitis HLD (hyperlipidemia) HTN (hypertension) Hx of malignant neoplasm of renal pelvis Hypoglycemia unawareness associated with type 2 diabetes mellitus Mood disorder Opioid abuse Pulmonary tuberculosis Seborrheic dermatitis T2DM (type 2 diabetes mellitus) Tubular adenoma of colon Vitamin D deficiency Surgical History History of esophagogastroduodenoscopy (EGD) History of surgery Hx of colonoscopy Hx of hernia repair Hx of partial nephrectomy Hx of prior ablation treatment Family History Father Liver cancer Diabetes Alcohol abuse Mother Diabetes Breast cancer Social History Household Members: None Patient Tobacco Use Status: Current everyday Tobacco user Cigarettes Per Day: 2 Review of Systems Const All systems reviewed & are unremarkable except as noted in HPI and below Reports as per HPI Eyes Reports no additional complaints ENT Reports no additional complaints Card Reports as per HPI Resp Reports as per HPI GI Reports as per HPI Reports as per HPI Musc Reports no additional complaints Neuro Reports no additional complaints Psych Reports as per HPI Endo Reports as per HPI Dagoberto/Lymph Reports no additional complaints Aller/Immun Reports no additional complaints Physical Exam Const General: cooperative, comfortable, no acute distress, well developed, alert and awake Nutritional Appearance: thin Orientation/consciousness: patient oriented x3 Limitations: no limitations HEENT Head: Yes normal to inspection, Yes normocephalic and Yes atraumatic Ears: hearing grossly normal bilaterally Eyes General: appearance normal, both eyes and all related structures Neck Neck: Yes normal visual inspection and Yes trachea midline Chest Chest palpation & inspection: normal inspection of the chest Resp Effort & Inspection: normal respiratory effort and able to speak in complete sentences Cardio Rate: regular rate GI Inspection: Yes normal to inspection General: Yes no CVA tenderness Back/Spine/Pelvis Back: no CVA tenderness Skin General skin exam: no rashes or lesions noted Neuro General: patient oriented x3 Extrem General: Yes normal to inspection Psych Appearance: grossly normal and well kempt Mental Status: mental status grossly normal Speech and movement: Normal speech and movement present and Clear speech present Affect: normal affect Attitude: cooperative Thought process: Normal thought process present Thought content: Normal thought content present Insight: Fair insight present (Psych) Judgement: Fair judgement present (Psych) Results AMB Urinalysis, Automated UA Leukoctes 0 Aaron/uL Last Edit by [employer] on 09/21/22 13:13 UA Nitrite Last Edit by [employer] on 09/21/22 13:13 UA Urobilinogen 0.2 mg/dL Last Edit by [employer] on 09/21/22 13:13 UA Protein 0 mg/dL Last Edit by [employer] on 09/21/22 13:13 UA pH 6.5 Last Edit by [employer] on 09/21/22 13:13 UA Blood 0 Chaz/uL Last Edit by Ford Bowles on 09/21/22 13:13 UA Specific Hamilton 1.020 Last Edit by Ford Bowles on 09/21/22 13:13 UA Ketone Last Edit by Ford Bowles on 09/21/22 13:13 UA Bilirubin 0 mg/dL Last Edit by Ford Bowles on 09/21/22 13:13 UA Glucose 0 mg/dL Last Edit by Ford Bowles on 09/21/22 13:13 Results Reviewed Results Reviewed: Laboratory Last Values Urine pH (Auto) 6.5 09/21/22 13:11 Specific Hamilton (Auto) 1.020 09/21/22 13:11 Urine Protein (Auto) 0 mg/dL 09/21/22 13:11 Glucose (UA)(Auto) 0 mg/dL 09/21/22 13:11 Urine Blood (Auto) 0 Chaz/uL 09/21/22 13:11 Urine Bilirubin (Auto) 0 mg/dL 09/21/22 13:11 Urine Urobilinogen (Auto) 0.2 mg/dL 09/21/22 13:11 Leukocyte Esterase (Auto) 0 Aaron/uL 09/21/22 13:11 Date of Service: 09/12/22 EXAMINATION: CT ABDOMEN AND PELVIS WITHOUT AND WITH CONTRAST FINDINGS: LUNG BASES: Granuloma in pleural-parenchymal scarring both bases similar.? LIVER, GALLBLADDER, AND BILIARY TREE: The liver is normal in size, shape, and attenuation. No focal hepatic lesion. Prominence of the extrahepatic biliary ductal system is stable. No choledocholithiasis or gross pancreatic head lesion.. The gallbladder is unremarkable with no evidence of radiopaque gallstones, gallbladder wall thickening, or obvious pericholecystic inflammatory changes.? PANCREAS: Pancreatic parenchyma is markedly atrophic. Notable dilatation of the pancreatic duct. No discrete pancreatic head mass. Tiny calcific foci suggests the constellation of findings to be sequela of chronic pancreatitis. Correlate with patient history. No fluid collections.? SPLEEN: Unremarkable? ADRENAL GLANDS: Unremarkable? KIDNEYS AND URETERS: Renal cortical cystic changes again noted. Presumably post cryoablation changes left lower pole cortex posterolaterally. Enlarging enhancing soft tissue attenuating midpole left kidney now measuring up to 18 mm. This is nonspecific but is suspicious for recurrent disease. No perinephric abnormality. BLADDER: Unremarkable? GASTROINTESTINAL TRACT: The small and large bowel are unremarkable. The appendix is unremarkable.? ABDOMINAL WALL: No significant hernia is appreciated.? LYMPH NODES: Normal VASCULAR: Unremarkable PELVIC VISCERA: Unremarkable? OSSEOUS STRUCTURES: Unremarkable? IMPRESSION: 1.? Enlarging enhancing soft tissue attenuating lesion upper to midpole left kidney suspicious for recurrent disease. 2.? Changes of chronic pancreatitis. 3.? No new findings. Assessment & Plan Assessment & Plan (1) Renal neoplasm: Code(s): D49.519 - Neoplasm of unspecified behavior of unspecified kidney (2) Renal cell cancer: Code(s): C64.9 - Malignant neoplasm of unspecified kidney, except renal pelvis Plan In office urinalysis results reviewed with the patient today; as noted above Recent CT imaging results reviewed with the patient today; as noted above Discussed obtaining MRI renal mass protocol for further assessment evaluation Patient denies any urinary issues or concerns at this time Follow-up in 1-2 months with imaging to be completed prior; or sooner with any issues, concerns, and or questions. Orders: Orders MR kidney wo/w con Today N28.89 - Other specified disorders of kidney and ureter AMB Urinalysis Automated Today Z13.9 - Encounter for screening, unspecified Patient Instructions: The patient had an opportunity to ask questions regarding the treatment plan. All questions were answered. Physical exam, labs, and imaging were discussed and reviewed in detail. As well as risks, benefits, and discussion of treatment choices. No major barriers to understanding were identified. The patient expressed understanding and agreement with the above treatment plan. The patient was made aware they should contact our office by phone for worsening of their current condition, the appearance of new symptoms, or with any questions or concerns. Compliance is encouraged with any medications and follow up testing that is ordered. It is a privilege to be allowed the opportunity to participate in? your urological care.? Again, if you have any questions or concerns If you have any questions or concerns please do not hesitate to contact me. The office is [phone]. This note is constructed using voice recognition software. While every effort has been made to ensure accuracy gasoline locomotive crane operator errors may have been included. Yours sincerely, JANICE Caballero Coding Level of Care Code Est Pt Level 3 (75139) Diagnoses Renal neoplasm D49.519 Renal cell cancer C64.9
== END 2022-09-21 13:28 | disposition home or self-care (01) ==
PROVIDERS: PCP Internal Medicine Geriatric Medicine; Visit Provider Nurse Practitioner Family
DX: D49.519 Neoplasm of unspecified behavior of unspecified kidney (principal); C64.9 Malignant neoplasm of unspecified kidney, except renal pelvis
CPT/HCPCS: 99213

== ENCOUNTER → 2022-09-21 12:43 | Outpatient (BNVA) | payer OTHER, SELFPAY | PROVIDERS: PCP Internal Medicine Geriatric Medicine; Visit Provider Nurse Practitioner Family | DX: D49.519 Neoplasm of unspecified behavior of unspecified kidney (principal); C64.9 Malignant neoplasm of unspecified kidney, except renal pelvis | CPT/HCPCS: 99212 ==

== ENCOUNTER 2022-09-24 08:40 | Day surgery (SDC) | payer OTHER, SELFPAY ==
[2022-09-24 09:05] VITALS: BP 144/78; PULSE 89; RESP 16; TEMP 36.8; O2SAT 98
[2022-09-24 09:24] LABS: Glucose, Whole Blood 159 mg/dL (60-115)
[2022-09-24 09:29] LABS: Hematocrit 38.5 % (42.0-52.0); Hemoglobin 12.4 g/dl (14.0-18.0); Mean Corpuscular HGB Conc 32.2 g/dl (31.0-36.0); Mean Corpuscular Volume 90.2 fL (80.0-98.0); Mean Platelet Volume 10.3 fL (9.4-12.4); Platelet Count 236 X10*3/uL (160-400); Red Blood Count 4.27 X10*6/uL (4.60-5.80); Red Cell Distribution Width 13.3 % (11.0-16.0); White Blood Count 5.8 X10*3/uL (4.8-10.8)
[2022-09-24 09:42] LABS: Anion Gap 11 (12-20); Blood Urea Nitrogen 16 mg/dL (9-16); Calcium 9.9 mg/dL (8.4-10.2); Carbon Dioxide 28 mmol/L (22-29); Chloride 108 mmol/L (96-108); Creatinine Clr Calc Pharmacy 86.3; Estimated Glomerular Filt Rate > 60; Glucose Random 169 mg/dL (60-115); Potassium 4.3 mmol/L (3.3-5.1); Sodium 143 mmol/L (135-145)
--- NOTE | 2022-09-24 10:20 | HO.ANESPROP2 ---
Documented by User: Svitlana Goss NP 09/21/22 11:07 HPI - Anesthesia Eval Consult details Narrative: 57yo M Left Debridement Skin Leg Suboxone 10mg BID PMFSH Active Problems Active Problems: All Active Problems (Updated 09/18/22 @ 10:29 by Alexander Ovalles MD) Nonhealing ulcer of left lower extremity (Acute) Mass of left lower leg (Acute) BPH (benign prostatic hyperplasia) (Acute) Renal cell cancer (Acute) Varicose veins of left lower extremity with inflammation (Acute) Abdominal wall bulge (Acute) Renal neoplasm (Acute) Vitamin D deficiency (Acute) HLD (hyperlipidemia) (Acute) HTN (hypertension) (Acute) T2DM (type 2 diabetes mellitus) (Acute) Past Medical History Medical History Abdominal wall bulge BPH loc w urin obs/LUTS COPD (chronic obstructive pulmonary disease) GERD (gastroesophageal reflux disease) H. pylori infection History of pancreatitis HLD (hyperlipidemia) HTN (hypertension) Hx of malignant neoplasm of renal pelvis Hypoglycemia unawareness associated with type 2 diabetes mellitus Mood disorder Opioid abuse Pulmonary tuberculosis Seborrheic dermatitis T2DM (type 2 diabetes mellitus) Tubular adenoma of colon Vitamin D deficiency Family History Family History Father Liver cancer Diabetes Alcohol abuse Mother Diabetes Breast cancer Surgical History Surgical History History of esophagogastroduodenoscopy (EGD) History of surgery Hx of colonoscopy Hx of hernia repair Hx of partial nephrectomy Hx of prior ablation treatment Social History Social History Household Members: None Patient Tobacco Use Status: Current everyday Tobacco user Tobacco use type: Cigarette Cigarette Packs Per Day: 0.5 Cigarettes Per Day: 10.0 Use of substances other than those prescribed or required for medical reasons: No Are you DNR?: No Advance Directives: No Advance Directives Information Provided: Yes Advance Directives on File: No Meds Allergies Allergy/AdvReac Type Severity Reaction Status Date / Time No Known Allergies Allergy Verified 09/21/22 13:22 Home Medications Medication Instructions Recorded Confirmed Last Taken Type alcohol swabs 0 pad topical 01/25/20 02/16/21 Unknown History aspirin 81 mg tablet,delayed 81 mg PO DAILY 01/25/20 07/18/21 Unknown History release blood sugar diagnostic #10 ea 01/25/20 02/16/21 Unknown History budesonide 1 mg/2 mL suspension mg inhalation DAILY PRN 01/25/20 02/16/21 Unknown History for nebulization docusate sodium 100 mg capsule 100 mg PO DAILY PRN 01/25/20 02/16/21 Unknown History (DOK) gabapentin 300 mg capsule 300 mg PO DAILY 01/25/20 02/16/21 Unknown History lancets 33 gauge #100 ea 01/25/20 02/16/21 Unknown History montelukast 10 mg tablet 10 mg PO DAILY 01/25/20 02/16/21 Unknown History nicotine 7 mg/24 hr daily 0 patch transdermal 01/25/20 02/16/21 Unknown History transdermal patch pen needle, diabetic 32 gauge x #50 ea 01/25/20 07/18/21 Unknown History sennosides 8.6 mg capsule (senna) 8.6 mg PO DAILY 01/25/20 02/16/21 Unknown History venlafaxine 150 mg 150 mg PO QAM 01/25/20 02/16/21 Unknown History capsule,extended release 24 hr venlafaxine 75 mg capsule,extended 75 mg PO QAM 01/25/20 02/16/21 Unknown History release 24 hr ciclopirox 8 % topical solution ml topical 04/11/20 02/16/21 Unknown History albuterol sulfate 90 mcg/actuation 0 mcg inhalation 07/07/20 02/16/21 Unknown History aerosol inhaler clonazepam 2 mg tablet 2 mg PO BEDTIME 07/07/20 02/16/21 Unknown History multivitamin 1 tab PO DAILY 07/07/20 07/18/21 Unknown History ramelteon 8 mg tablet 8 mg PO BEDTIME 07/07/20 07/18/21 Unknown History acetaminophen 500 mg tablet 500 mg PO ONCE PRN fever or pain 10/12/20 02/16/21 Unknown History buprenorphine 8 mg-naloxone 2 mg 10 mg sublingual BID 11/28/20 07/18/21 Unknown History sublingual film (Suboxone) insulin aspart U-100 100 unit/mL 2 - 3 unit subcut TID 02/07/21 07/18/21 Unknown History (3 mL) subcutaneous pen clonazepam 1 mg tablet 1 mg PO BID PRN 10/09/21 Unknown History fluticasone furoate 100 1 ea inhalation DAILY 10/09/21 Unknown History mcg-vilanterol 25 mcg/dose inhalation powder (Breo Ellipta) sennosides 8.6 mg tablet (senna) 17.2 mg PO DAILY 10/09/21 Unknown History dextrose 40 % oral gel (Glutose-15) g PO 06/14/22 Unknown History lidocaine 5 % topical patch 0 patch topical 06/14/22 Unknown History naloxone 4 mg/actuation nasal spray 0 spray intranasal 06/14/22 Unknown History blood sugar diagnostic ([employer] 09/14/22 Unknown History Ultra Test strips) blood-glucose meter ([employer] 09/14/22 Unknown History Ultra2 Meter) insulin glargine 100 unit/mL (3 10 unit subcut BEDTIME 09/14/22 Unknown History mL) subcutaneous pen lancing device with lancets kit 09/14/22 Unknown History ([employer] People Delica Plus Lancing Device kit) Exam Exam Date and Time: September 21, 2022 1101 Pertinent Lab Results Pertinent Lab Results: Laboratory Tests 09/14/22 12:53 Hgb A1c (Clinic) 8.4 H Assessment and Plan Assessment Anesthesia Assessment: Chart Reviewed Documented by User: Sheila Alexandre DO 09/24/22 11:06 HPI - Anesthesia Eval Consult details Narrative: 57yo M Left Debridement Skin Leg Suboxone 10mg BID - took this AM. Used inhalers this morning. Hx of COPD and current smoker. [facility] Past Medical History Medical History Abdominal wall bulge BPH loc w urin obs/LUTS COPD (chronic obstructive pulmonary disease) GERD (gastroesophageal reflux disease) H. pylori infection History of pancreatitis HLD (hyperlipidemia) HTN (hypertension) Hx of malignant neoplasm of renal pelvis Hypoglycemia unawareness associated with type 2 diabetes mellitus Mood disorder Opioid abuse Pulmonary tuberculosis Seborrheic dermatitis T2DM (type 2 diabetes mellitus) Tubular adenoma of colon Vitamin D deficiency Family History Family History Father Liver cancer Diabetes Alcohol abuse Mother Diabetes Breast cancer Surgical History Surgical History History of esophagogastroduodenoscopy (EGD) History of surgery Hx of colonoscopy Hx of hernia repair Hx of partial nephrectomy Hx of prior ablation treatment History of Problems with Anesthesia: No Social History Social History Household Members: None Patient Tobacco Use Status: Current everyday Tobacco user Tobacco use type: Cigarette Cigarette Packs Per Day: 0.5 Cigarettes Per Day: 10.0 Use of substances other than those prescribed or required for medical reasons: No Are you DNR?: No Advance Directives: No Advance Directives Information Provided: Yes Advance Directives on File: No Meds Allergies Allergy/AdvReac Type Severity Reaction Status Date / Time No Known Allergies Allergy Verified 09/21/22 13:22 Home Medications Medication Instructions Recorded Confirmed Last Taken Type alcohol swabs 0 pad topical 01/25/20 02/16/21 Unknown History aspirin 81 mg tablet,delayed 81 mg PO DAILY 01/25/20 07/18/21 Unknown History release blood sugar diagnostic #10 ea 01/25/20 02/16/21 Unknown History budesonide 1 mg/2 mL suspension mg inhalation DAILY PRN 01/25/20 02/16/21 Unknown History for nebulization docusate sodium 100 mg capsule 100 mg PO DAILY PRN 01/25/20 02/16/21 Unknown History (DOK) gabapentin 300 mg capsule 300 mg PO DAILY 01/25/20 02/16/21 Unknown History lancets 33 gauge #100 ea 01/25/20 02/16/21 Unknown History montelukast 10 mg tablet 10 mg PO DAILY 01/25/20 02/16/21 Unknown History nicotine 7 mg/24 hr daily 0 patch transdermal 01/25/20 02/16/21 Unknown History transdermal patch pen needle, diabetic 32 gauge x #50 ea 01/25/20 07/18/21 Unknown History sennosides 8.6 mg capsule (senna) 8.6 mg PO DAILY 01/25/20 02/16/21 Unknown History venlafaxine 150 mg 150 mg PO QAM 01/25/20 02/16/21 Unknown History capsule,extended release 24 hr venlafaxine 75 mg capsule,extended 75 mg PO QAM 01/25/20 02/16/21 Unknown History release 24 hr ciclopirox 8 % topical solution ml topical 04/11/20 02/16/21 Unknown History albuterol sulfate 90 mcg/actuation 0 mcg inhalation 07/07/20 02/16/21 Unknown History aerosol inhaler clonazepam 2 mg tablet 2 mg PO BEDTIME 07/07/20 02/16/21 Unknown History multivitamin 1 tab PO DAILY 07/07/20 07/18/21 Unknown History ramelteon 8 mg tablet 8 mg PO BEDTIME 07/07/20 07/18/21 Unknown History acetaminophen 500 mg tablet 500 mg PO ONCE PRN fever or pain 10/12/20 02/16/21 Unknown History buprenorphine 8 mg-naloxone 2 mg 10 mg sublingual BID 11/28/20 07/18/21 Unknown History sublingual film (Suboxone) insulin aspart U-100 100 unit/mL 2 - 3 unit subcut TID 02/07/21 07/18/21 Unknown History (3 mL) subcutaneous pen clonazepam 1 mg tablet 1 mg PO BID PRN 10/09/21 Unknown History fluticasone furoate 100 1 ea inhalation DAILY 10/09/21 Unknown History mcg-vilanterol 25 mcg/dose inhalation powder (Breo Ellipta) sennosides 8.6 mg tablet (senna) 17.2 mg PO DAILY 10/09/21 Unknown History dextrose 40 % oral gel (Glutose-15) g PO 06/14/22 Unknown History lidocaine 5 % topical patch 0 patch topical 06/14/22 Unknown History naloxone 4 mg/actuation nasal spray 0 spray intranasal 06/14/22 Unknown History blood sugar diagnostic ([employer] 09/14/22 Unknown History Ultra Test strips) blood-glucose meter ([employer] 09/14/22 Unknown History Ultra2 Meter) insulin glargine 100 unit/mL (3 10 unit subcut BEDTIME 09/14/22 Unknown History mL) subcutaneous pen lancing device with lancets kit 09/14/22 Unknown History ([employer] Delica Plus Lancing Device kit) Exam Exam Date and Time: September 24, 2022 1020 Height,Weight and Vital Signs: Height 5 ft 6 in Weight 56.245 kg Vital Signs Temperature 98.2 F 09/24/22 09:05 Pulse Rate 89 09/24/22 09:05 Respiratory Rate 16 09/24/22 09:05 Blood Pressure 144/78 H 09/24/22 09:05 Pulse Oximetry 98 09/24/22 09:05 Oxygen Delivery Method Room Air 09/24/22 09:05 Temperature 98.2 F 09/24/22 09:05 Pulse Rate 89 09/24/22 09:05 Respiratory Rate 16 09/24/22 09:05 Blood Pressure 144/78 H 09/24/22 09:05 Pulse Oximetry 98 09/24/22 09:05 Oxygen Delivery Method Room Air 09/24/22 09:05 Airway Mallampati Class: I TM Dist: >3cm Neck ROM: Full Partial: Upper and Lower Loose/Missing/Broken Teeth: Yes (Edentulous top jaw) Heart: S1S2 Lungs: Scattered expiratory wheezing Assessment and Plan Assessment Anesthesia Assessment: Anesthesia Plan Discussed and Chart Reviewed Final Anesthetic Review History of Problems with Anesthesia: No NPO: Yes ASA Class: III Final Preanesthetic Review: No Changes in Pt Med Stat, Meds/Allgs Chart Reviewed, Consent Obtained/Reviewed and Anes Risks/Benef Reviewed Patient Risk: Intermediate Procedure Risk: Low Anesthetic Plan Anesthetic Plan: MAC: and Agree w/ Assess. and Plan Disposition: Standard PACU
[2022-09-24 11:37] VITALS: BP 102/57; PULSE 70; RESP 20; TEMP 36.6; O2SAT 100
--- NOTE | 2022-09-24 11:45 | W.PM.OPN ---
Operative Note Operative Note Date of Service: 09/24/22 Narrative: Operative note by [facility] Preoperative diagnosis: Nonhealing left pretibial ulcer Postoperative diagnosis: Same Procedure:1. Left pretibial excisional debridement into muscle 2. Complex flap closure of wound Surgeon:Alexander Ovalles M.D. Survey Technologist: Davey Anesthesia: Local with sedation by Dr. Alexandre in anesthesia Specimens: None Drains: None Estimated blood loss: Minimal Indications: 57-year-old gentleman with a pretibial ulcer that had been opened and debrided in the office failed to close. Tried several conservative measures but it it was extremely painful and not closing he now presents for operative debridement and closure. The patient has signed the informed consent after reviewing risks, complications, benefits, and alternatives previously discussed with the patient. The patient was given the opportunity to ask any additional questions or voice any concerns. All questions were answered to the patient's satisfaction. Procedure in detail: Patient was brought to the operating room prior to which a time-out was called for patient identification site verification. Left pretibial surface was clean. Any lip shape incision was carried out over the wound. This measured approximately 4 cm in length. Once this entire lips was removed we debrided all the way down into muscle. This was totally cleared just up to the pretibial surface. Ill hemostasis was achieved with electrocautery. We had to raise superior and inferior flaps this was done with needle-tip Bovie. Once this was accomplished we reapproximated the deep layer using a 3-0 Polysorb in interrupted fashion. Finally skin was closed using 2 0 nylon in a mattress fashion along with 4-0 nylon in a mattress fashion as well. The pre debridement mention was 4 x 2 x 0.1 cm post debridement measurement was 4.5 x 2.5 x 0.3 cm. This was closed to a complete closure after creation of flaps. Xeroform and a sterile dressing were applied at the end. At the end the case sponge instrument counts were correct. Patient tolerated the procedure well. Returned to recovery with stable vitals. This note is constructed using voice recognition software. While every effort has been made to ensure accuracy, bit gatherer errors may have been included. Thank you for allowing me to participate in the care of your patient. Yours sincerely, Alexander Ovalles MD, FACS, R.P.V.I.
[2022-09-24 11:52] VITALS: BP 100/61; PULSE 58; RESP 18; O2SAT 98
[2022-09-24 12:07] VITALS: BP 105/66; PULSE 57; RESP 16; O2SAT 96
[2022-09-24 12:22] VITALS: BP 122/82; PULSE 67; RESP 16; O2SAT 96
[2022-09-24 12:52] VITALS: BP 120/83; PULSE 67; RESP 16; TEMP 36.4; O2SAT 96
== END 2022-09-24 13:54 | disposition home or self-care (01) ==
PROVIDERS: PCP Internal Medicine Geriatric Medicine; Visit Provider Surgery Vascular Surgery
PROC: (CPT 11043; principal; 2022-09-24 10:10)
DX: L97.225 Non-pressure chronic ulcer of left calf with muscle involvement without evidence of necrosis (principal); I10 Essential (primary) hypertension; E11.9 Type 2 diabetes mellitus without complications; J44.9 Chronic obstructive pulmonary disease, unspecified
CPT/HCPCS: 11043; 36415; 80048; 82947; 85027; J0690; J2795; J3010

== ENCOUNTER → 2022-09-24 08:40 | Outpatient (BNV) | payer OTHER, SELFPAY | PROVIDERS: PCP Internal Medicine Geriatric Medicine; Visit Provider Surgery Vascular Surgery | DX: L97.825 Non-pressure chronic ulcer of other part of left lower leg with muscle involvement without evidence of necrosis (principal) | CPT/HCPCS: 11044 ==

== ENCOUNTER 2022-10-18 10:03 | Outpatient (AMB) | payer OTHER, SELFPAY ==
--- NOTE | 2022-10-18 10:05 | MHC.OFFVIS ---
Intake Intake Visit Reasons: 2wk post left leg debridement 09/24/22 Intake Note: Patient is here for a 2 week post left leg debridement 09/24/22, patient stated wound is healing [facility] Required: Yes [facility] Name: Teresa ROYAL Allergies No Known Allergies Allergy (Verified 10/18/22 10:07) HPI 2wk post left leg debridement 09/24/22 HPI Details Doing well status post left leg debridement. No interval issues. Reports that the pain and discomfort have improved significantly. He is now for postop check. [facility] Medical History Abdominal wall bulge BPH loc w urin obs/LUTS COPD (chronic obstructive pulmonary disease) GERD (gastroesophageal reflux disease) H. pylori infection History of pancreatitis HLD (hyperlipidemia) HTN (hypertension) Hx of malignant neoplasm of renal pelvis Hypoglycemia unawareness associated with type 2 diabetes mellitus Mood disorder Opioid abuse Pulmonary tuberculosis Seborrheic dermatitis T2DM (type 2 diabetes mellitus) Tubular adenoma of colon Vitamin D deficiency Surgical History History of esophagogastroduodenoscopy (EGD) History of surgery Hx of colonoscopy Hx of hernia repair Hx of partial nephrectomy Hx of prior ablation treatment Family History Father Liver cancer Diabetes Alcohol abuse Mother Diabetes Breast cancer Social History Household Members: None Patient Tobacco Use Status: Current everyday Tobacco user Tobacco use type: Cigarette Cigarette Packs Per Day: 0.5 Cigarettes Per Day: 10.0 Review of Systems Const All systems reviewed & are unremarkable except as noted in HPI and below Reports no additional complaints ENT Reports Normal hearing present Card Denies chest pain, Denies chest pain at rest, Denies chest pain with activity and Denies pedal edema Resp Denies cough GI Denies abdominal pain Musc Denies abnormal gait, Denies muscle cramps and Denies radiating pain into limb Skin/Breast Denies skin ulcer and Denies wounds Neuro Reports Normal hearing present and Denies abnormal gait Psych Reports no additional complaints Physical Exam Const General: cooperative, healthy appearing and comfortable Orientation/consciousness: oriented to person, oriented to place and oriented to time HEENT Head: Yes normal to inspection Neck Neck: Yes normal visual inspection Carotids: no bruits Chest Chest palpation & inspection: normal inspection of the chest Resp Effort & Inspection: normal respiratory effort and able to speak in complete sentences Auscultation: clear to auscultation bilaterally, no crackles, no rales, no rhonchi and no wheezes Cardio Rate: regular rate Rhythm: regular rhythm Heart sounds: S1 normal heart sound present and S2 normal heart sound present Bruits: no carotid bruits Peripheral pulses: Peripheral pulses 2+ throughout GI Inspection: Yes normal to inspection Skin Other: Pretibial ulcer nonhealing incision line sutures removed. Approximately 2 cm in length. Good granulation base. Wounds: no wounds Hair: normal Neuro General: oriented to person, oriented to place and oriented to time Cranial nerves: Yes CN's II-XII intact bilaterally and Yes Normal hearing present Cognition (Neuro): normal cognition Motor exam (neuro): 5/5 motor strength present throughout Extrem Other: venous exam: No significant superficial varicosities or spider telangiectasias, minimal edema General: No clubbing, No cyanosis and No edema Psych Appearance: grossly normal Mental Status: mental status grossly normal Speech and movement: Normal speech and movement present Assessment & Plan Assessment & Plan (1) Nonhealing ulcer of left lower extremity: Code(s): L97.929 - Non-pressure chronic ulcer of unspecified part of left lower leg with unspecified severity Plan: In short patient has nonhealing ulcer. It appears that what ever for material has been completely removed and it appears to be doing better. Unfortunately the incision line remains nonhealing. We will start him on Silvadene cream. We did discussed local wound care and dressing changes. He will follow up with us in approximately 3 weeks time. Medications: New silver sulfadiazine 1% (Silvadene) apply a 1.5 mm thickness 1 appl topical DAILY 20 grams 0RF L97.929 - Non-pressure chronic ulcer of unspecified part of left lower leg with unspecified severity Coding Level of Care Code Est Pt Level 4 (49622) Diagnoses Nonhealing ulcer of left lower extremity L97.929
== END 2022-10-18 10:23 | disposition home or self-care (01) ==
PROVIDERS: PCP Internal Medicine Geriatric Medicine; Visit Provider Surgery Vascular Surgery
DX: L97.929 Non-pressure chronic ulcer of unspecified part of left lower leg with unspecified severity (principal)
CPT/HCPCS: 99214

== ENCOUNTER → 2022-10-18 10:03 | Outpatient (BNVA) | payer OTHER, SELFPAY | PROVIDERS: PCP Internal Medicine Geriatric Medicine; Visit Provider Surgery Vascular Surgery | DX: L97.929 Non-pressure chronic ulcer of unspecified part of left lower leg with unspecified severity (principal) | CPT/HCPCS: 99212 ==

== ENCOUNTER 2022-11-08 10:24 | Outpatient (AMB) | payer OTHER, SELFPAY ==
--- NOTE | 2022-11-08 10:25 | MHC.OFFVIS ---
Intake Intake Visit Reasons: 3 week wound check Intake Note: Left LE non-healing wound, using Rx cream daily, healing Accompanied by: Self / Same As Patient Allergies No Known Allergies Allergy (Verified 11/08/22 10:26) HPI 3 week wound check HPI Details Very pleasant 57-year-old gentleman presents for follow-up regarding nonhealing ulcer. He has this left pretibial ulcer that originally underwent debridement it did not close well and reopened. He has been treated with Silvadene dressings. He reports that the pain and discomfort have decreased. He appears to be closing nicely. He now presents for follow-up check [facility] Medical History Tubular adenoma of colon History of pancreatitis Seborrheic dermatitis Mood disorder 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 pylori infection GERD (gastroesophageal reflux disease) Abdominal wall bulge Vitamin D deficiency HLD (hyperlipidemia) HTN (hypertension) T2DM (type 2 diabetes mellitus) Surgical History History of surgery Hx of hernia repair Hx of prior ablation treatment Hx of partial nephrectomy Hx of colonoscopy History of esophagogastroduodenoscopy (EGD) Family History Father Liver cancer Diabetes Alcohol abuse Mother Diabetes Breast cancer Social History Household Members: None Patient Tobacco Use Status: Current everyday Tobacco user Tobacco use type: Cigarette Cigarette Packs Per Day: 0.5 Cigarettes Per Day: 10.0 Review of Systems Const All systems reviewed & are unremarkable except as noted in HPI and below Reports no additional complaints ENT Reports Normal hearing present Card Denies chest pain, Denies chest pain at rest, Denies chest pain with activity and Denies pedal edema Resp Denies cough GI Denies abdominal pain Musc Denies abnormal gait, Denies muscle cramps and Denies radiating pain into limb Skin/Breast Denies skin ulcer and Denies wounds Neuro Reports Normal hearing present and Denies abnormal gait Psych Reports no additional complaints Physical Exam Const General: cooperative, healthy appearing and comfortable Orientation/consciousness: oriented to person, oriented to place and oriented to time HEENT Head: Yes normal to inspection Neck Neck: Yes normal visual inspection Carotids: no bruits Chest Chest palpation & inspection: normal inspection of the chest Resp Effort & Inspection: normal respiratory effort and able to speak in complete sentences Auscultation: clear to auscultation bilaterally, no crackles, no rales, no rhonchi and no wheezes Cardio Rate: regular rate Rhythm: regular rhythm Heart sounds: S1 normal heart sound present and S2 normal heart sound present Bruits: no carotid bruits Peripheral pulses: Peripheral pulses 2+ throughout GI Inspection: Yes normal to inspection Skin Other: Left pretibial surface cleaned 0.8 cm opening excellent granulation base in actuality it is nearly closed. Wounds: no wounds Hair: normal Neuro General: oriented to person, oriented to place and oriented to time Cranial nerves: Yes CN's II-XII intact bilaterally and Yes Normal hearing present Cognition (Neuro): normal cognition Motor exam (neuro): 5/5 motor strength present throughout Extrem Other: venous exam: No significant superficial varicosities or spider telangiectasias, minimal edema General: No clubbing, No cyanosis and No edema Psych Appearance: grossly normal Mental Status: mental status grossly normal Speech and movement: Normal speech and movement present Assessment & Plan Assessment & Plan (1) Nonhealing ulcer of left lower extremity: Code(s): L97.929 - Non-pressure chronic ulcer of unspecified part of left lower leg with unspecified severity Qualifiers: Non-pressure ulcer stage: with fat layer exposed Qualified Code(s): L97.922 - Non-pressure chronic ulcer of unspecified part of left lower leg with fat layer exposed Plan: In short patient has nonhealing ulcer of the left lower extremity. In general it appears to be closing nicely. We did discussed local wound care and continued use of Silvadene cream until it is complete. We also discussed the importance of keeping it covered and protected. He will follow up with us in approximately 4 weeks time to ensure that it is closed over completely. Thank you for allowing us to assist in his care. If there are any questions or concerns please do not hesitate to contact us Coding Level of Care Code Est Pt Level 3 (85714) Diagnoses Nonhealing ulcer of left lower extremity with fat layer exposed L97.922 Non-pressure ulcer stage: with fat layer exposed
== END 2022-11-08 10:37 | disposition home or self-care (01) ==
LOC: HO.HVS 10:24
PROVIDERS: PCP Internal Medicine Geriatric Medicine; Visit Provider Surgery Vascular Surgery
DX: L97.922 Non-pressure chronic ulcer of unspecified part of left lower leg with fat layer exposed (principal)
CPT/HCPCS: 99024

== ENCOUNTER → 2022-11-08 10:24 | Outpatient (BNVA) | payer OTHER, SELFPAY | PROVIDERS: PCP Internal Medicine Geriatric Medicine; Visit Provider Surgery Vascular Surgery | DX: L97.922 Non-pressure chronic ulcer of unspecified part of left lower leg with fat layer exposed (principal) | CPT/HCPCS: 99212 ==

== ENCOUNTER 2022-11-14 09:04 | Outpatient (REF) | payer OTHER, SELFPAY ==
--- NOTE | ~2022-11-14 | MR_ITS ---
EXAMINATION: MR ABDOMEN WITHOUT AND WITH CONTRAST CLINICAL INFORMATION: Renal mass protocol COMPARISON: CT abdomen 09/12/2022, 04/09/2018, 03/10/2014 TECHNIQUE: MRI of the abdomen before and after the IV administration of 5.5 mL of Gadavist was obtained using routine sequences. FINDINGS: LUNG BASES: Similar right basilar atelectasis. KIDNEYS AND URETERS: Postsurgical changes of left lower pole partial nephrectomy without associated enhancing soft tissue to suggest locally recurrent disease. 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 There are 3 additional smaller T2 hypointense renal lesions, see aiken images, which do not demonstrate intrinsic T1 hyperintense signal. The largest measures 1.2 cm in the right upper pole and demonstrates faint possible enhancement on today's exam although does not clearly demonstrate enhancement on prior multiphase CT, this previously measured 1.2 cm in 2019 and 0.7 cm in 2014. 2 additional subcentimeter lesions one in the right midpole measuring 0.7 cm new from remote priors in 2019 and one measuring 0.7 cm in the left mid pole increased in size from 2019 where it measured 4 mm are too small to discern with confidence if enhancing are not. GALLBLADDER: Unremarkable. LIVER AND BILIARY TREE: No loss of signal on opposed phase imaging to suggest hepatic steatosis. Mild intra and extrahepatic biliary duct dilatation with the common bile duct measuring 9 mm unchanged from 2015. PANCREAS: A 7 mm cyst in the pancreatic head. Pancreatic body and tail is atrophic with pancreatic duct dilatation to 4 mm which appears decreased with respect to remote priors previously 4 mm in 2019 and 5 mm in 2014. The pancreatic cyst has been present since at least 2014 where it measured 0.9 cm. SPLEEN: Unremarkable ADRENAL GLANDS: Unremarkable GASTROINTESTINAL TRACT: Unremarkable. LYMPH NODES: No lymphadenopathy. VASCULAR: Unremarkable ABDOMINAL WALL: Unremarkable. OSSEOUS STRUCTURES: Unremarkable. 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 Recommend urologic evaluation and management. * There are 3 additional smaller T2 hypointense renal lesions which do not demonstrate intrinsic T1 hyperintense signal. The largest measures 1.2 cm in the right upper pole and demonstrates faint possible enhancement on today's exam although does not clearly demonstrate enhancement on prior multiphase CT, unchanged in size from 2019 and only slightly increased in size from 2015 could possibly reflect an additional second neoplasm although is difficult to say with confidence is enhancing. 2 additional subcentimeter lesions one in the right midpole new from remote priors and one in the left mid pole increased in size from 2019 are too small to discern with confidence if enhancing or not, and are indeterminate for small additional neoplasms or hemorrhagic cysts. * A 7 mm cyst in the pancreatic head decreased from 2015. There is mild pancreatic duct dilatation which appears slightly decreased with respect to remote priors. Recommend continued imaging surveillance. * Mild intra and extrahepatic biliary duct dilatation with the common bile duct measuring 9 mm unchanged from 2015. The findings and recommendations were discussed with Valarie Hayes NP by telephone at 11/15/2022 2:06 PM and it was ascertained that the content and urgency of the report was understood at the time of direct communication.
[2022-11-14] MEDS: gadobutroL 7.5 ML VIAL IVPUSH (10:01)
== END 2022-11-14 09:05 | disposition home or self-care (01) ==
LOC: HO.MRI 09:04
PROVIDERS: PCP Internal Medicine Geriatric Medicine; Visit Provider Nurse Practitioner Family
DX: N28.89 Other specified disorders of kidney and ureter (principal)
CPT/HCPCS: 74181; A9585

== ENCOUNTER 2022-11-20 11:25 | Outpatient (AMB) | payer OTHER, SELFPAY ==
--- NOTE | 2022-11-20 11:51 | A.OFFVIS_ITS ---
Intake Intake Visit Reasons: MRI- follow up Intake Note: Patient is present for follow up MRI (imaging 11/14/22) Urology Medications: none Blood Thinner: aspirin Clinical Director Required: No Accompanied by: Self / Same As Patient Allergies No Known Allergies Allergy (Verified 11/20/22 18:45) Medication List - Last Reconciled 11/20/22 by JANICE Caballero acetaminophen 500 mg PO ONCE PRN albuterol sulfate 90 mcg/actuation 0 mcg inhalation alcohol swabs 0 pad topical aspirin 81 mg PO DAILY atorvastatin 40 mg PO DAILY 30 days blood sugar diagnostic As directed blood sugar diagnostic ([employer] Ultra Test strips) As directed blood-glucose meter ([employer] Ultra2 Meter) As directed budesonide mg inhalation DAILY PRN buprenorphine-naloxone 8-2 mg (Suboxone) 10 mg sublingual BID cephalexin 500 mg PO BID ciclopirox 8% mL topical clonazepam 2 mg PO BEDTIME clonazepam 1 mg PO BID PRN dextrose 40% (Glutose-15) grams PO docusate sodium (DOK) 100 mg PO DAILY PRN flash glucose scanning reader ([employer] Kasey 2 [place]) As directed checks 8X/day flash glucose sensor ([employer]iModel[employer] Kasey 2 Sensor kit) USE DIRECTED TO TEST BLOOD SUGAR 8 TIMES PER DAY fluticasone furoate-vilanterol 100-25 mcg/dose (Breo Ellipta) 1 ea inhalation DAILY gabapentin 300 mg PO DAILY insulin aspart U-100 2 - 3 units subcut TID insulin glargine 10 units subcut BEDTIME lancets As directed lancing device with lancets ([employer] Delica Plus Lancing Device kit) As directed lidocaine 5% 0 patches topical metformin ER 1,000 mg (2 x 500 mg) PO DAILY 30 days montelukast 10 mg PO DAILY multivitamin 1 tab PO DAILY naloxone 4 mg/actuation 0 sprays intranasal nicotine 0 patches transdermal pen needle, diabetic As directed ramelteon 8 mg PO BEDTIME sennosides (senna) 8.6 mg PO DAILY sennosides (senna) 17.2 mg PO DAILY silver sulfadiazine 1% (Silvadene) 1 appl topical DAILY venlafaxine ER 150 mg PO QAM venlafaxine ER 75 mg PO QAM HPI HPI Comments History of Present Illness Details Hubert is a pleasant 57-year-old male patient of Dr. Spain. He has a past medical history of COPD, GERD, H pylori infection, history of pancreatitis, HLD, HTN, mood disorder, opioid abuse, pulmonary tuberculosis, type 2 diabetes, and vitamin-D deficiency. He presents to the office today for a follow up of his history of renal cell carcinoma. Of note, patient was seen approximately 6 weeks ago at which time an MRI renal mass protocol was ordered for further assessment evaluation. These results reviewed with the patient today. 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 There are 3 additional smaller T2 hypointense renal lesions which do not demonstrate intrinsic T1 hyperintense signal. The largest measures 1.2 cm in the right upper pole and demonstrates faint possible enhancement on today's exam although does not clearly demonstrate enhancement on prior multiphase CT, unchanged in size from 2019 and only slightly increased in size from 2014 could possibly reflect an additional second neoplasm although is difficult to say with confidence is enhancing. 2 additional subcentimeter lesions one in the right midpole new from remote priors and one in the left mid pole increased in size from 2019 are too small to discern with confidence if enhancing or not, and are indeterminate for small additional neoplasms or hemorrhagic cysts. Discussed at length findings and further inter vention with left sided renal biopsy for further assessment and evaluation. When asked he denies any urinary issues or concerns. When asked he denies urinary urgency, urinary frequency, incontinence, nocturia, hematuria, dysuria, foul smelling urine, changes to urinary stream, flank pain, fever, and or chills. PSA 08/24-- 0.10. In office urinalysis results reviewed with the patient. In review of patient's chart it appears patient underwent hand assisted laparoscopic cryoablation of the left kidney with Dr. Mcbride October 2009. Of note, patient had already had previous biopsy suggestive of renal cancer prior to surgical procedure with Dr. Mcbride. [facility] Medical History Tubular adenoma of colon History of pancreatitis Seborrheic dermatitis Mood disorder 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 pylori infection GERD (gastroesophageal reflux disease) Abdominal wall bulge Vitamin D deficiency HLD (hyperlipidemia) HTN (hypertension) T2DM (type 2 diabetes mellitus) Surgical History History of surgery Hx of hernia repair Hx of prior ablation treatment Hx of partial nephrectomy Hx of colonoscopy History of esophagogastroduodenoscopy (EGD) Family History Father Liver cancer Diabetes Alcohol abuse Mother Diabetes Breast cancer Social History Household Members: None Patient Tobacco Use Status: Current everyday Tobacco user Tobacco use type: Cigarette Cigarette Packs Per Day: 0.5 Cigarettes Per Day: 10.0 Review of Systems Const All systems reviewed & are unremarkable except as noted in HPI and below Reports as per HPI Eyes Reports no additional complaints ENT Reports no additional complaints Card Reports as per HPI Resp Reports as per HPI GI Reports as per HPI Reports as per HPI Musc Reports no additional complaints Neuro Reports no additional complaints Psych Reports as per HPI Endo Reports as per HPI Dagoberto/Lymph Reports no additional complaints Aller/Immun Reports no additional complaints Physical Exam Const General: cooperative, comfortable, no acute distress, well developed, alert and awake Nutritional Appearance: thin Orientation/consciousness: patient oriented x3 Limitations: no limitations HEENT Head: Yes normal to inspection, Yes normocephalic and Yes atraumatic Ears: hearing grossly normal bilaterally Eyes General: appearance normal, both eyes and all related structures Neck Neck: Yes normal visual inspection and Yes trachea midline Chest Chest palpation & inspection: normal inspection of the chest Resp Effort & Inspection: normal respiratory effort and able to speak in complete sentences Cardio Rate: regular rate GI Inspection: Yes normal to inspection General: Yes no CVA tenderness Back/Spine/Pelvis Back: no CVA tenderness Skin General skin exam: no rashes or lesions noted Neuro General: patient oriented x3 Extrem General: Yes normal to inspection Psych Appearance: grossly normal and well kempt Mental Status: mental status grossly normal Speech and movement: Normal speech and movement present and Clear speech present Affect: normal affect Attitude: cooperative Thought process: Normal thought process present Thought content: Normal thought content present Insight: Fair insight present (Psych) Judgement: Fair judgement present (Psych) Results AMB Urinalysis, Automated UA Leukoctes 15 Aaron/uL Last Edit by Ford Bowles on 11/20/22 12:02 UA Nitrite Negative Last Edit by Ford Bowles on 11/20/22 12:02 UA Urobilinogen 0.2 mg/dL Last Edit by Ford Bowles on 11/20/22 12:02 UA Protein 15 mg/dL Last Edit by Ford Bowles on 11/20/22 12:02 UA pH 6.0 Last Edit by Ford Bowles on 11/20/22 12:02 UA Blood 0 Chaz/uL Last Edit by Ford Bowles on 11/20/22 12:02 UA Specific [place] 1.030 Last Edit by Ford Bowles on 11/20/22 12:02 UA Ketone Positive Last Edit by Ford Bowles on 11/20/22 12:02 UA Bilirubin 1 mg/dL Last Edit by Ford Bowles on 11/20/22 12:02 UA Glucose 0 mg/dL Last Edit by Ford Bowles on 11/20/22 12:02 Results Reviewed Results Reviewed: Laboratory Last Values Urine pH (Auto) 6.0 11/20/22 12:00 Specific [place] (Auto) 1.030 11/20/22 12:00 Urine Protein (Auto) 15 mg/dL 11/20/22 12:00 Glucose (UA)(Auto) 0 mg/dL 11/20/22 12:00 Urine Ketones (Auto) Positive 11/20/22 12:00 Urine Blood (Auto) 0 Chaz/uL 11/20/22 12:00 Urine Nitrite (Auto) Negative 11/20/22 12:00 Urine Bilirubin (Auto) 1 mg/dL 11/20/22 12:00 Urine Urobilinogen (Auto) 0.2 mg/dL 11/20/22 12:00 Leukocyte Esterase (Auto) 15 Aaron/uL 11/20/22 12:00 Date of Service: 11/14/22 EXAMINATION: MR ABDOMEN WITHOUT AND WITH CONTRAST FINDINGS: LUNG BASES: Similar right basilar atelectasis. KIDNEYS AND URETERS: Postsurgical changes of left lower pole partial nephrectomy without associated enhancing soft tissue to suggest locally recurrent disease. 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 There are 3 additional smaller T2 hypointense renal lesions, see aiken images, which do not demonstrate intrinsic T1 hyperintense signal. The largest measures 1.2 cm in the right upper pole and demonstrates faint possible enhancement on today's exam although does not clearly demonstrate enhancement on prior multiphase CT, this previously measured 1.2 cm in 2019 and 0.7 cm in 2015. 2 additional subcentimeter lesions one in the right midpole measuring 0.7 cm new from remote priors in 2019 and one measuring 0.7 cm in the left mid pole increased in size from 2019 where it measured 4 mm are too small to discern with confidence if enhancing are not. GALLBLADDER: Unremarkable. LIVER AND BILIARY TREE: No loss of signal on opposed phase imaging to suggest hepatic steatosis. Mild intra and extrahepatic biliary duct dilatation with the common bile duct measuring 9 mm unchanged from 2015. PANCREAS: A 7 mm cyst in the pancreatic head. Pancreatic body and tail is atrophic with pancreatic duct dilatation to 4 mm which appears decreased with respect to remote priors previously 4 mm in 2019 and 5 mm in 2014. The pancreatic cyst has been present since at least 2014 where it measured 0.9 cm. SPLEEN: Unremarkable ADRENAL GLANDS: Unremarkable GASTROINTESTINAL TRACT: Unremarkable. LYMPH NODES: No lymphadenopathy. VASCULAR: Unremarkable ABDOMINAL WALL: Unremarkable. OSSEOUS STRUCTURES: Unremarkable. 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 Recommend urologic evaluation and management. * There are 3 additional smaller T2 hypointense renal lesions which do not demonstrate intrinsic T1 hyperintense signal. The largest measures 1.2 cm in the right upper pole and demonstrates faint possible enhancement on today's exam although does not clearly demonstrate enhancement on prior multiphase CT, unchanged in size from 2019 and only slightly increased in size from 2015 could possibly reflect an additional second neoplasm although is difficult to say with confidence is enhancing. 2 additional subcentimeter lesions one in the right midpole new from remote priors and one in the left mid pole increased in size from 2019 are too small to discern with confidence if enhancing or not, and are indeterminate for small additional neoplasms or hemorrhagic cysts. * A 7 mm cyst in the pancreatic head decreased from 2015. There is mild pancreatic duct dilatation which appears slightly decreased with respect to remote priors. Recommend continued imaging surveillance. * Mild intra and extrahepatic biliary duct dilatation with the common bile duct measuring 9 mm unchanged from 2015. Assessment & Plan Assessment & Plan (1) Renal cell cancer: Code(s): C64.9 - Malignant neoplasm of unspecified kidney, except renal pelvis (2) Renal neoplasm: Code(s): D49.519 - Neoplasm of unspecified behavior of unspecified kidney Plan: Risks, benefits and alternatives to therapy were discussed. These include but are not limited to infection, bleeding, damage to local organs and tissues, need for further interventions. ? Anesthetic risks regarding cardiac arrhythmia, blood clots, and potential mortality were discussed. The patient understands the typical recovery time and the outpatient nature of the procedure. After consideration of these risks the patient gives full informed consent and they wish to move ahead with the procedure. Plan In office urinalysis results reviewed with the patient today. Recent MRI results reviewed with the patient today; as noted above. Discussed at length left-sided renal biopsy for further assessment evaluation. Discussed risks and benefits of left-sided renal biopsy. All questions were answered. Imaging reviewed with Dr. Mcdaniel Will schedule for left-sided renal biopsy and follow-up with Dr. Mcdaniel for further plan of care status post biopsy. Orders: Orders AMB Urinalysis Automated 11/20/22 Z13.9 - Encounter for screening, unspecified Patient Instructions: The patient had an opportunity to ask questions regarding the treatment plan. All questions were answered. Physical exam, labs, and imaging were discussed and reviewed in detail. As well as risks, benefits, and discussion of treatment choices. No major barriers to understanding were identified. The patient expressed understanding and agreement with the above treatment plan. The patient was made aware they should contact our office by phone for worsening of their current condition, the appearance of new symptoms, or with any questions or concerns. Compliance is encouraged with any medications and follow up testing that is ordered. It is a privilege to be allowed the opportunity to participate in? your urological care.? Again, if you have any questions or concerns If you have any questions or concerns please do not hesitate to contact me. The office is [phone]. This note is constructed using voice recognition software. While every effort has been made to ensure accuracy induction heating equipment setter errors may have been included. Yours sincerely, JANICE Caballero Coding Level of Care Code Est Pt Level 4 (76745) Diagnoses Renal cell cancer C64.9 Renal neoplasm D49.519
== END 2022-11-20 13:01 | disposition home or self-care (01) ==
PROVIDERS: PCP Internal Medicine Geriatric Medicine; Visit Provider Nurse Practitioner Family
DX: C64.9 Malignant neoplasm of unspecified kidney, except renal pelvis (principal); D49.519 Neoplasm of unspecified behavior of unspecified kidney
CPT/HCPCS: 99214

== ENCOUNTER → 2022-11-20 11:25 | Outpatient (BNVA) | payer OTHER, SELFPAY | PROVIDERS: PCP Internal Medicine Geriatric Medicine; Visit Provider Nurse Practitioner Family | DX: C64.9 Malignant neoplasm of unspecified kidney, except renal pelvis (principal); D49.519 Neoplasm of unspecified behavior of unspecified kidney | CPT/HCPCS: 81003; 99212 ==

== ENCOUNTER 2022-12-06 09:34 | Outpatient (AMB) | payer OTHER, SELFPAY ==
--- NOTE | 2022-12-06 09:45 | A.OFFVIS_ITS ---
Intake Intake Visit Reasons: 1 mo follow up wound left leg Intake Note: 1 mo follow up Left LE pretibial wound s/p Left Mass excision 08/13/22. Pt states almost healed, no longer uses cream, just cleans daily with soap and water, no drainage or dressing needed. Just has some scabbing. Accompanied by: Self / Same As Patient Allergies No Known Allergies Allergy (Verified 12/06/22 09:50) HPI 1 mo follow up wound left leg HPI Details Very pleasant 57-year-old gentleman presents for follow-up regarding nonhealing left pretibial ulcer. He had undergone debridement and subsequent Silvadene dressings. He reports that is doing fairly well. It has gone on to heal. He now presents for routine follow-up [facility], [facility] Medical History Tubular adenoma of colon History of pancreatitis Seborrheic dermatitis Mood disorder 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 pylori infection GERD (gastroesophageal reflux disease) Abdominal wall bulge Vitamin D deficiency HLD (hyperlipidemia) HTN (hypertension) T2DM (type 2 diabetes mellitus) Surgical History History of surgery Hx of hernia repair Hx of prior ablation treatment Hx of partial nephrectomy Hx of colonoscopy History of esophagogastroduodenoscopy (EGD) Family History Father Liver cancer Diabetes Alcohol abuse Mother Diabetes Breast cancer Social History (Updated 12/06/22 @ 09:51 by JAYSON Joyce) Household Members: None Patient Tobacco Use Status: Current everyday Tobacco user Tobacco use type: Cigarette Cigarette Packs Per Day: 0.5 Cigarettes Per Day: 3 Date Education Initiated: 12/06/22 Use of substances other than those prescribed or required for medical reasons: No Substance Use Type Other:: opiod Are you DNR?: No Advance Directives: No Advance Directives Information Provided: Yes Review of Systems Const All systems reviewed & are unremarkable except as noted in HPI and below Reports no additional complaints ENT Reports Normal hearing present Card Denies chest pain, Denies chest pain at rest, Denies chest pain with activity and Denies pedal edema Resp Denies cough GI Denies abdominal pain Musc Denies abnormal gait, Denies muscle cramps and Denies radiating pain into limb Skin/Breast Denies skin ulcer and Denies wounds Neuro Reports Normal hearing present and Denies abnormal gait Psych Reports no additional complaints Physical Exam Const General: cooperative, healthy appearing and comfortable Orientation/consciousness: oriented to person, oriented to place and oriented to time HEENT Head: Yes normal to inspection Neck Neck: Yes normal visual inspection Carotids: no bruits Chest Chest palpation & inspection: normal inspection of the chest Resp Effort & Inspection: normal respiratory effort and able to speak in complete sentences Auscultation: clear to auscultation bilaterally, no crackles, no rales, no rhonchi and no wheezes Cardio Rate: regular rate Rhythm: regular rhythm Heart sounds: S1 normal heart sound present and S2 normal heart sound present Bruits: no carotid bruits Peripheral pulses: Peripheral pulses 2+ throughout GI Inspection: Yes normal to inspection Skin Other: Left pretibial surface healed Wounds: no wounds Hair: normal Neuro General: oriented to person, oriented to place and oriented to time Cranial nerves: Yes CN's II-XII intact bilaterally and Yes Normal hearing present Cognition (Neuro): normal cognition Motor exam (neuro): 5/5 motor strength present throughout Extrem Other: venous exam: No significant superficial varicosities or spider telangiectasias, minimal edema General: No clubbing, No cyanosis and No edema Psych Appearance: grossly normal Mental Status: mental status grossly normal Speech and movement: Normal speech and movement present Assessment & Plan Assessment & Plan (1) Nonhealing ulcer of left lower extremity: Code(s): L97.929 - Non-pressure chronic ulcer of unspecified part of left lower leg with unspecified severity Qualifiers: Non-pressure ulcer stage: with fat layer exposed Qualified Code(s): L97.922 - Non-pressure chronic ulcer of unspecified part of left lower leg with fat layer exposed Plan: In short patient has a gone on to heal left lower extremity. Appears to be doing relatively well. We did discussed local protection along with moisturization. He will follow up with us on as-needed basis. Thank you for allowing us to assist in the care of this patient. If there are any questions or concerns please do not hesitate to contact us. Coding Level of Care Code Est Pt Level 4 (54185) Diagnoses Nonhealing ulcer of left lower extremity with fat layer exposed L97.922 Non-pressure ulcer stage: with fat layer exposed
== END 2022-12-06 09:58 | disposition home or self-care (01) ==
PROVIDERS: PCP Internal Medicine Geriatric Medicine; Visit Provider Surgery Vascular Surgery
DX: L97.922 Non-pressure chronic ulcer of unspecified part of left lower leg with fat layer exposed (principal)
CPT/HCPCS: 99213

== ENCOUNTER 2022-12-06 10:33 | Day surgery (SDC) | payer OTHER, SELFPAY ==
[2022-12-06 11:00] LABS: Basophils Absolute Auto 0.1 X10*3/uL (0.0-0.2); Basophils Percent Auto 1.1 % (0-2); Eosinophils Absolute Auto 0.6 X10*3/uL (0.0-0.4); Hematocrit 43.3 % (42.0-52.0); Hemoglobin 14.4 g/dl (14.0-18.0); Imm Gran Abs Auto 0.03 X10*3/uL (0.00-0.03); Imm Gran Pct Auto 0.3 % (0.0-0.4); Lymphocytes Absolute Auto 1.5 X10*3/uL (1.2-4.9); Lymphocytes Percent Auto 16.8 % (20-40); Mean Corpuscular HGB Conc 33.3 g/dl (31.0-36.0); Mean Corpuscular Hemoglobin 29.4 pg (27.0-33.0); Mean Corpuscular Volume 88.5 fL (80.0-98.0); Mean Platelet Volume 10.2 fL (9.4-12.4); Monocytes Absolute Auto 0.8 X10*3/uL (0.1-1.2); Monocytes Percent Auto 8.8 % (2-11); Neutrophils Absolute Auto 5.9 x10*3/uL (2.0-8.3); Platelet Count 305 X10*3/uL (160-400); Red Blood Count 4.89 X10*6/uL (4.60-5.80); Red Cell Distribution Width 13.7 % (11.0-16.0)
[2022-12-06 11:01] LABS: MANUAL DIFF FLAG NO
[2022-12-06 11:06] LABS: INTERNATIONAL NORM RATIO 0.9 (0.9-1.1); Prothrombin Time 10.4 SEC (11.1-13.3)
[2022-12-06 11:08] LABS: Partial Thromboplastin Time 28.5 SEC (26.0-36.4)
[2022-12-06 11:12] LABS: Anion Gap 16 (12-20); Blood Urea Nitrogen 19 mg/dL (9-16); Carbon Dioxide 24 mmol/L (22-29); Chloride 103 mmol/L (96-108); Estimated Glomerular Filt Rate > 60; Potassium 4.8 mmol/L (3.3-5.1); Sodium 138 mmol/L (135-145)
[2022-12-06 11:13] VITALS: BMI 20.3
[2022-12-06 11:17] VITALS: BP 126/72; PULSE 110; RESP 18; TEMP 36.6; O2SAT 95
[2022-12-06 13:35] VITALS: BP 109/70; PULSE 88; RESP 18; TEMP 36.3; O2SAT 97
[2022-12-06 14:05] VITALS: BP 129/76; PULSE 90; RESP 20; O2SAT 97
[2022-12-06 14:35] VITALS: BP 127/76; PULSE 86; RESP 16; O2SAT 95
[2022-12-06 14:50] VITALS: BP 118/76; PULSE 93; RESP 16; TEMP 37.4; O2SAT 91
== END 2022-12-06 15:33 | disposition home or self-care (01) ==
PROVIDERS: Radiology Vascular & Interventional Radiology; PCP Internal Medicine Geriatric Medicine; Visit Provider Nurse Practitioner Family
DX: C64.2 Malignant neoplasm of left kidney, except renal pelvis (principal); Z90.5 Acquired absence of kidney; J44.9 Chronic obstructive pulmonary disease, unspecified; I10 Essential (primary) hypertension; E78.5 Hyperlipidemia, unspecified; K21.9 Gastro-esophageal reflux disease without esophagitis; A15.0 Tuberculosis of lung; A04.8 Other specified bacterial intestinal infections; E11.649 Type 2 diabetes mellitus with hypoglycemia without coma; L97.922 Non-pressure chronic ulcer of unspecified part of left lower leg with fat layer exposed; R19.00 Intra-abdominal and pelvic swelling, mass and lump, unspecified site; E55.9 Vitamin D deficiency, unspecified; Z79.4 Long term (current) use of insulin; Z79.82 Long term (current) use of aspirin; Z79.899 Other long term (current) drug therapy; F17.210 Nicotine dependence, cigarettes, uncomplicated; F11.10 Opioid abuse, uncomplicated; Z98.890 Other specified postprocedural states
CPT/HCPCS: 36415; 50200; 76942; 80051; 82565; 82947; 84520; 85025; 85610; 85730; 88305; 88333; 99212; J2250; J3010

== ENCOUNTER → 2022-12-06 13:38 | Outpatient (BNV) | payer OTHER, SELFPAY | PROVIDERS: PCP Internal Medicine Geriatric Medicine; Visit Provider Radiology Vascular & Interventional Radiology | DX: D49.512 Neoplasm of unspecified behavior of left kidney (principal) | CPT/HCPCS: 50200; 76942 ==

== ENCOUNTER 2022-12-21 10:54 | Outpatient (AMB) | payer OTHER, SELFPAY ==
--- NOTE | 2022-12-21 10:55 | MHC.OFFVIS ---
Intake Intake Visit Reasons: renal biopsy results (12/06) Intake Note: Patient is Present for Telephone Follow Up Biopsy Results Urology Med: None Antibiotic Allergy:None Blood Thinner: Aspirin Pharamcy: [facility] Pharmacy Allergies No Known Allergies Allergy (Verified 12/06/22 09:50) Medication List - Last Reconciled 01/10/23 by Hipolito Mcdaniel MD acetaminophen 500 mg PO ONCE PRN albuterol sulfate 90 mcg/actuation 2 puffs inhalation Q4H PRN alcohol swabs 0 pad topical aspirin 81 mg PO DAILY atorvastatin 40 mg PO DAILY 30 days blood sugar diagnostic As directed blood sugar diagnostic ([employer] Ultra Test strips) As directed blood-glucose meter ([employer] Ultra2 Meter) As directed budesonide mg inhalation DAILY PRN buprenorphine-naloxone 8-2 mg (Suboxone) 10 mg sublingual BID cephalexin 500 mg PO BID ciclopirox 8% mL topical clonazepam 2 mg PO BEDTIME clonazepam 1 mg PO BID PRN dextrose 40% (Glutose-15) grams PO docusate sodium (DOK) 100 mg PO DAILY PRN flash glucose scanning reader ([employer]ann[employer]le Kasey 2 [place]) As directed checks 8X/day flash glucose sensor (FreeStyle Kasey 2 Sensor kit) USE DIRECTED TO TEST BLOOD SUGAR 8 TIMES PER DAY fluticasone furoate-vilanterol 100-25 mcg/dose (Breo Ellipta) 1 ea inhalation DAILY gabapentin 300 mg PO DAILY insulin aspart U-100 2 - 3 units subcut TID insulin glargine 10 units subcut BEDTIME lancets As directed lancing device with lancets ([employer] Delica Plus Lancing Device kit) As directed lidocaine 5% 0 patches topical metformin ER 1,000 mg (2 x 500 mg) PO DAILY 30 days montelukast 10 mg PO DAILY multivitamin 1 tab PO DAILY naloxone 4 mg/actuation 0 sprays intranasal nicotine 0 patches transdermal pen needle, diabetic As directed ramelteon 8 mg PO BEDTIME sennosides (senna) 8.6 mg PO DAILY sennosides (senna) 17.2 mg PO DAILY silver sulfadiazine 1% (Silvadene) 1 appl topical DAILY venlafaxine ER 150 mg PO QAM venlafaxine ER 75 mg PO QAM HPI HPI Comments History of Present Illness Details Hubert is a pleasant male. He is a patient of Dr. Spain. He seen for the following urologic conditions. - recurrent papillary renal cell carcinoma Discussion regarding targeting of biopsy-proven lesions Biopsy of 2.3 cm upper pole left renal mass confirmed papillary cell carcinoma Significant past medical history for COPD, history of pancreatitis, mood disorder, opioid abuse, pulmonary tuberculosis, type 1 diabetes Papillary cell carcinoma Prior cryotherapy in 2014 - for papillary cell carcinoma Imaging - 11/24 MRI 2.3 cm T2 hypointense left upper pole renal mass, 3 small of T2 hyperintense renal lesions on right side Recommendation left cryotherapy followed by right-sided biopsy [facility] Medical History Tubular adenoma of colon History of pancreatitis Seborrheic dermatitis Mood disorder 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 pylori infection GERD (gastroesophageal reflux disease) Abdominal wall bulge Vitamin D deficiency HLD (hyperlipidemia) HTN (hypertension) T2DM (type 2 diabetes mellitus) Surgical History History of surgery Hx of hernia repair Hx of prior ablation treatment Hx of partial nephrectomy Hx of colonoscopy History of esophagogastroduodenoscopy (EGD) Family History Father Liver cancer Diabetes Alcohol abuse Mother Diabetes Breast cancer Social History (Updated 12/06/22 @ 09:51 by JAYSON Joyce) Household Members: None Patient Tobacco Use Status: Current everyday Tobacco user Tobacco use type: Cigarette Cigarette Packs Per Day: 0.5 Cigarettes Per Day: 3 Review of Systems Const Denies chills and Denies fever(s) Card Reports no additional complaints and Denies syncope Resp Denies cough GI Denies abdominal pain and Denies heartburn Reports as per HPI and Denies change in libido Neuro Denies syncope Psych Denies change in libido Endo Denies change in libido Physical Exam Const General: cooperative, healthy appearing, comfortable and no acute distress Orientation/consciousness: patient oriented x3 HEENT Face and sinus: Yes normal facial exam Mouth: moist mucous membranes Neck Neck: Yes normal visual inspection, Yes full ROM and Yes trachea midline Chest Chest palpation & inspection: normal inspection of the chest Resp Effort & Inspection: normal respiratory effort, able to speak in complete sentences and no respiratory distress GI Inspection: Yes normal to inspection Back/Spine/Pelvis Cervical Spine: normal cervical lordosis Thoracic/Lumbar Spine: thoracic and lumbar spine normal to inspection Skin General skin exam: no rashes or lesions noted Neuro General: patient oriented x3, gait normal, tone normal and moves all extremities Extrem General: Yes normal to inspection and Yes capillary refill normal Assessment & Plan Assessment & Plan (1) Papillary renal cell carcinoma: Code(s): C64.9 - Malignant neoplasm of unspecified kidney, except renal pelvis Plan Risks, benefits and alternatives to therapy were discussed. These include but are not limited to infection, bleeding, damage to local organs and tissues, need for further interventions. Anesthetic risks regarding cardiac arrhythmia, blood clots, and potential mortality were discussed. The patient understands the typical recovery time and the outpatient nature of the procedure. After consideration of these risks the patient gives full informed consent and they wish to move ahead with the procedure. Procedure: CT-guided left renal cryoablation Side: Left Antibiotics: Kefzol 2 g Anesthesia: Yes Estimated Time: 60 minutes Clearance Needed: PAT Protocol Cardiac no Pulmonary no Special Equipment: Cryo equipment, we have to also coordinate with anesthesia Reps: Cryotherapy Patient Instructions: Imaging studies, laboratory and physical exam results were discussed and reviewed in detail. No major barriers to patient understanding were identified. An opportunity to ask questions regarding the treatment plan was provided. All questions were answered. The patient expressed understanding and agreement with the above treatment plan. The patient is aware they should contact our office by phone for worsening of their current condition or the appearance of new urologic symptoms. Compliance is encouraged with any medications and followup testing that is ordered. It is a privilege to participate in the urologic care of your patient. If you have any questions or concerns regarding treatment for the above conditions, or other urologic issues, please do not hesitate to contact me. The office telephone contact is [phone]. This note is constructed using voice recognition software. While every effort has been made to ensure accuracy pest control technician errors may have been included. Yours sincerely, Dr Hipolito Mcdaniel MD, [facility] - Urology Providers of Expert, Compassionate Care for the Genitourinary System Telehealth Telehealth Location of provider rendering services: practice address Location of patient: address on file Patient Identification confirmed using: Name, : Yes Telehealth method: voice only Patient verbally consented to treatment: Yes Patient verbally consented to billing insurance company: Yes Patient informed of any privacy concerns related to visit: Yes Coding Level of Care Code Est Pt Level 4 (92411) Diagnoses Papillary renal cell carcinoma C64.9
== END 2022-12-21 13:27 | disposition home or self-care (01) ==
LOC: HO.HUSH 10:54
PROVIDERS: PCP Internal Medicine Geriatric Medicine; Visit Provider Urology
DX: C64.9 Malignant neoplasm of unspecified kidney, except renal pelvis (principal)
CPT/HCPCS: 99214; 99442

== ENCOUNTER → 2022-12-21 10:54 | Outpatient (BNVA) | payer OTHER, SELFPAY | PROVIDERS: PCP Internal Medicine Geriatric Medicine; Visit Provider Urology | DX: C64.9 Malignant neoplasm of unspecified kidney, except renal pelvis (principal); N40.1 Benign prostatic hyperplasia with lower urinary tract symptoms; N13.8 Other obstructive and reflux uropathy | CPT/HCPCS: 99212 ==

== ENCOUNTER 2023-01-16 11:21 | Day surgery (SDC) | payer OTHER, SELFPAY ==
--- NOTE | 2023-01-15 08:28 | P.CONAN_ITS ---
Documented by User: Svitlana Goss NP 01/15/23 08:29 HPI - Anesthesia Eval Consult details Narrative: 57yo M for Kidney Cryo-Ablation s/p Left renal bx 12/06/22 with CS Suboxone daily PMFSH Active Problems Active Problems: All Active Problems (Updated 01/10/23 @ 15:12 by Hipolito Mcdaniel MD) Papillary renal cell carcinoma (Acute) Nonhealing ulcer of left lower extremity (Acute) Mass of left lower leg (Acute) BPH (benign prostatic hyperplasia) (Acute) Renal cell cancer (Acute) Varicose veins of left lower extremity with inflammation (Acute) Abdominal wall bulge (Acute) Renal neoplasm (Acute) Vitamin D deficiency (Acute) HLD (hyperlipidemia) (Acute) HTN (hypertension) (Acute) T2DM (type 2 diabetes mellitus) (Acute) Past Medical History Medical History (Updated 01/16/23 @ 12:41 by Sheila Jaimes RN) Anxiety Tubular adenoma of colon History of pancreatitis Seborrheic dermatitis Mood disorder 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 pylori infection GERD (gastroesophageal reflux disease) Abdominal wall bulge Vitamin D deficiency HLD (hyperlipidemia) HTN (hypertension) T2DM (type 2 diabetes mellitus) Family History Family History Father Liver cancer Diabetes Alcohol abuse Mother Diabetes Breast cancer Surgical History Surgical History History of surgery Hx of hernia repair Hx of prior ablation treatment Hx of partial nephrectomy Hx of colonoscopy History of esophagogastroduodenoscopy (EGD) History of Problems with Anesthesia: No Social History Social History (Updated 12/06/22 @ 09:51 by JAYSON Joyce) Household Members: None Patient Tobacco Use Status: Current everyday Tobacco user Tobacco use type: Cigarette Cigarette Packs Per Day: 0.5 Cigarettes Per Day: 10 Use of substances other than those prescribed or required for medical reasons: No Substance Use Type Other:: on suboxone Are you DNR?: No Advance Directives: No Advance Directives Information Provided: Yes Meds Allergies Allergy/AdvReac Type Severity Reaction Status Date / Time No Known Allergies Allergy Verified 01/16/23 12:41 Home Medications Medication Instructions Recorded Confirmed Last Taken Type aspirin 81 mg tablet,delayed 81 mg PO DAILY 01/25/20 01/16/23 01/09/23 History release (Adult Low Dose Aspirin) blood sugar diagnostic #10 ea 01/25/20 01/16/23 Unknown History budesonide 1 mg/2 mL suspension 1 mg inhalation DAILY PRN 01/25/20 01/16/23 Unknown History for nebulization (Pulmicort) Shortness Of Breath Or Wheezing docusate sodium 100 mg capsule 100 mg PO DAILY PRN Constipation 01/25/20 01/16/23 Unknown History (DOK) lancets 33 gauge #100 ea 01/25/20 01/16/23 Unknown History montelukast 10 mg tablet 10 mg PO DAILY 01/25/20 01/16/23 Unknown History (Singulair) nicotine 7 mg/24 hr daily 1 patch transdermal DAILY 01/25/20 01/16/23 Unknown History transdermal patch (Nicoderm CQ) pen needle, diabetic 32 gauge x #50 ea 01/25/20 01/16/23 Unknown History sennosides 8.6 mg capsule (senna) 8.6 mg PO DAILY 01/25/20 01/16/23 Unknown History venlafaxine 150 mg 150 mg PO QAM 01/25/20 01/16/23 Unknown History capsule,extended release 24 hr (Effexor XR) albuterol sulfate 90 mcg/actuation 2 puff inhalation Q4H PRN 07/07/20 01/16/23 Unknown History aerosol inhaler (Ventolin HFA) shortness of breath or wheeze clonazepam 2 mg tablet (Klonopin) 2 mg PO BEDTIME 07/07/20 01/16/23 Unknown History ramelteon 8 mg tablet (Rozerem) 8 mg PO BEDTIME 07/07/20 01/16/23 Unknown History acetaminophen 500 mg tablet 500 mg PO ONCE PRN fever or pain 10/12/20 01/16/23 Unknown History (Acetaminophen Pain Relief) buprenorphine 8 mg-naloxone 2 mg 10 mg sublingual BID 11/28/20 01/16/23 Unknown History sublingual film (Suboxone) insulin aspart U-100 100 unit/mL 2 - 3 unit subcut TID 02/07/21 01/16/23 Unknown History (3 mL) subcutaneous pen (Novolog FlexPen U-100 Insulin aspart) clonazepam 1 mg tablet (Klonopin) 1 mg PO BID PRN Anxiety 10/09/21 01/16/23 Unknown History fluticasone furoate 100 1 ea inhalation DAILY 10/09/21 01/16/23 Unknown History mcg-vilanterol 25 mcg/dose inhalation powder (Breo Ellipta) lidocaine 5 % topical patch 0 patch topical DAILY PRN Pain 06/14/22 01/16/23 Unknown History (Lidoderm) naloxone 4 mg/actuation nasal 0 spray intranasal NEEDED PRN 06/14/22 01/16/23 Unknown History spray (Narcan) Opioid Overdose blood sugar diagnostic ([employer]Touch 09/14/22 01/16/23 Unknown History Ultra Test strips) blood-glucose meter ([employer]Touch 09/14/22 01/16/23 Unknown History Ultra2 Meter) insulin glargine 100 unit/mL (3 10 unit subcut BEDTIME 09/14/22 01/16/23 Unknown History mL) subcutaneous pen (Lantus Solostar U-100 Insulin) lancing device with lancets kit 09/14/22 01/16/23 Unknown History (EntraTym[employer]uch Delica Plus Lancing Device kit) atorvastatin 40 mg tablet (Lipitor) 40 mg PO DAILY 01/16/23 01/16/23 Unknown History ibuprofen 800 mg tablet (IBU) 800 mg PO TID PRN pain 01/16/23 01/16/23 Unknown History quetiapine 50 mg tablet (Seroquel) 50 mg PO BID 01/16/23 01/16/23 Unknown History Exam Exam Date and Time: January 15, [id number] Pertinent Lab Results Pertinent Lab Results: Laboratory Tests 12/06/22 10:52 WBC 9.0 RBC 4.89 Hgb 14.4 Hct 43.3 Plt Count 305 D Sodium 138 Potassium 4.8 Chloride 103 Carbon Dioxide 24 BUN 19 H Creatinine 0.77 Assessment and Plan Assessment Anesthesia Assessment: Chart Reviewed Final Anesthetic Review History of Problems with Anesthesia: No Documented by User: Barb Parker MD 01/16/23 13:16 [facility] Past Medical History Medical History (Updated 01/16/23 @ 12:41 by Sheila Jaimes RN) Anxiety Tubular adenoma of colon History of pancreatitis Seborrheic dermatitis Mood disorder 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 pylori infection GERD (gastroesophageal reflux disease) Abdominal wall bulge Vitamin D deficiency HLD (hyperlipidemia) HTN (hypertension) T2DM (type 2 diabetes mellitus) Family History Family History Father Liver cancer Diabetes Alcohol abuse Mother Diabetes Breast cancer Family history of problems with anesthesia: No Surgical History Surgical History History of surgery Hx of hernia repair Hx of prior ablation treatment Hx of partial nephrectomy Hx of colonoscopy History of esophagogastroduodenoscopy (EGD) Social History Social History (Updated 12/06/22 @ 09:51 by JAYSON Joyce) Household Members: None Patient Tobacco Use Status: Current everyday Tobacco user Tobacco use type: Cigarette Cigarette Packs Per Day: 0.5 Cigarettes Per Day: 10 Use of substances other than those prescribed or required for medical reasons: No Substance Use Type Other:: on suboxone Are you DNR?: No Advance Directives: No Advance Directives Information Provided: Yes Meds Allergies Allergy/AdvReac Type Severity Reaction Status Date / Time No Known Allergies Allergy Verified 01/16/23 12:41 Home Medications Medication Instructions Recorded Confirmed Last Taken Type aspirin 81 mg tablet,delayed 81 mg PO DAILY 01/25/20 01/16/23 01/09/23 History release (Adult Low Dose Aspirin) blood sugar diagnostic #10 ea 01/25/20 01/16/23 Unknown History budesonide 1 mg/2 mL suspension 1 mg inhalation DAILY PRN 01/25/20 01/16/23 Unknown History for nebulization (Pulmicort) Shortness Of Breath Or Wheezing docusate sodium 100 mg capsule 100 mg PO DAILY PRN Constipation 01/25/20 01/16/23 Unknown History (DOK) lancets 33 gauge #100 ea 01/25/20 01/16/23 Unknown History montelukast 10 mg tablet 10 mg PO DAILY 01/25/20 01/16/23 Unknown History (Singulair) nicotine 7 mg/24 hr daily 1 patch transdermal DAILY 01/25/20 01/16/23 Unknown History transdermal patch (Nicoderm CQ) pen needle, diabetic 32 gauge x #50 ea 01/25/20 01/16/23 Unknown History sennosides 8.6 mg capsule (senna) 8.6 mg PO DAILY 01/25/20 01/16/23 Unknown History venlafaxine 150 mg 150 mg PO QAM 01/25/20 01/16/23 Unknown History capsule,extended release 24 hr (Effexor XR) albuterol sulfate 90 mcg/actuation 2 puff inhalation Q4H PRN 07/07/20 01/16/23 Unknown History aerosol inhaler (Ventolin HFA) shortness of breath or wheeze clonazepam 2 mg tablet (Klonopin) 2 mg PO BEDTIME 07/07/20 01/16/23 Unknown History ramelteon 8 mg tablet (Rozerem) 8 mg PO BEDTIME 07/07/20 01/16/23 Unknown History acetaminophen 500 mg tablet 500 mg PO ONCE PRN fever or pain 10/12/20 01/16/23 Unknown History (Acetaminophen Pain Relief) buprenorphine 8 mg-naloxone 2 mg 10 mg sublingual BID 11/28/20 01/16/23 Unknown History sublingual film (Suboxone) insulin aspart U-100 100 unit/mL 2 - 3 unit subcut TID 02/07/21 01/16/23 Unknown History (3 mL) subcutaneous pen (Novolog FlexPen U-100 Insulin aspart) clonazepam 1 mg tablet (Klonopin) 1 mg PO BID PRN Anxiety 10/09/21 01/16/23 Unknown History fluticasone furoate 100 1 ea inhalation DAILY 10/09/21 01/16/23 Unknown History mcg-vilanterol 25 mcg/dose inhalation powder (Breo Ellipta) lidocaine 5 % topical patch 0 patch topical DAILY PRN Pain 06/14/22 01/16/23 Unknown History (Lidoderm) naloxone 4 mg/actuation nasal 0 spray intranasal NEEDED PRN 06/14/22 01/16/23 Unknown History spray (Narcan) Opioid Overdose blood sugar diagnostic (OneTouch 07/14/23 11/15/23 Unknown History Ultra Test strips) blood-glucose meter (OneTouch 09/14/22 01/16/23 Unknown History Ultra2 Meter) insulin glargine 100 unit/mL (3 10 unit subcut BEDTIME 09/14/22 01/16/23 Unknown History mL) subcutaneous pen (Lantus Solostar U-100 Insulin) lancing device with lancets kit 09/14/22 01/16/23 Unknown History ([employer] DelAppetite+ Plus Lancing Device kit) atorvastatin 40 mg tablet (Lipitor) 40 mg PO DAILY 01/16/23 01/16/23 Unknown History ibuprofen 800 mg tablet (IBU) 800 mg PO TID PRN pain 01/16/23 01/16/23 Unknown History quetiapine 50 mg tablet (Seroquel) 50 mg PO BID 01/16/23 01/16/23 Unknown History Exam Airway Mallampati Class: II TM Dist: >3cm Neck ROM: Full Denture: Upper Partial: Lower Heart: rrr Lungs: cta Assessment and Plan Assessment Anesthesia Assessment: Anesthesia Plan Discussed Final Anesthetic Review Family History of Problems with Anesthesia: No NPO: Yes ASA Class: III Final Preanesthetic Review: No Changes in Pt Med Stat, Meds/Allgs Chart Reviewed and Consent Obtained/Reviewed Patient Risk: Intermediate Procedure Risk: Intermediate Anesthetic Plan Anesthetic Plan: GA Disposition: Standard PACU
[2023-01-16] VITALS (8 sets, daily range): BP systolic 122–144; BP diastolic 68–79; PULSE 81–89; RESP 15–16; TEMP 36.1–36.9; O2SAT 95–97; BMI 19.8
--- NOTE | ~2023-01-16 | CT_ITS ---
PROCEDURE: CT GUIDED PERCUTANEOUS CRYOBLATION LEFT RENAL TUMOR CLINICAL INFORMATION: 57-year-old male with left renal mass COMPARISON: CT abdomen and pelvis 09/12/2022, MRI abdomen 11/14/2022. Ultrasound biopsy renal mass 12/06/[address] examination was performed using dose optimization techniques as appropriate, variously including the following: *Automated exposure control *Adjustment of mA and/or kV according to patient size (this includes techniques or standardized protocols for targeted exams where dose is matched to indication/reason for exam; i.e. extremities or head) *Use of iterative reconstruction technique DLP: 40 mGy-cm TECHNIQUE/FINDINGS: Informed consent was obtained following a discussion of the risks and benefits of the procedure with the patient. The patient was placed on the CT gantry. General anesthesia was induced by anesthesiologist and findings in this regard are reported separately. Patient was initially scanned supine with left side slightly elevated. The tumor is seen to contact the chest wall. Therefore the patient was repositioned prone. Scan was performed there is redemonstration of the left renal mass at the mid pole measuring approximately up to 2.2 cm. There is contact between the tumor and the chest wall as well as between the tumor and the inferior pole of the spleen. Therefore, it was elected to perform hydrodissection. A 4 [employer] centesis catheter was inserted percutaneously into the retroperitoneal space posterior lateral to the left kidney. Hydrodissection was performed with saline. Images demonstrate the hydrodissection to be successful with displacement of the kidney anterior medially. The left renal tumor was then accessed percutaneously using 2 separate 17-gauge [employer] cryoprobes. Position was confirmed with CT scan. Cryoablation was then performed with a 10 minute freeze cycle followed by a 5 minute active thaw cycle followed by a 10 minute freeze cycle followed by a 5 minute active thaw cycle with intermittent CT fluoroscopy and CT images performed demonstrating satisfactory ice ball with no evidence of impingement of the hospital to adjacent critical structures. Once the Cryoblation was completed, the 2 probes in the 2 centesis catheter were removed. Post ablation CT scan was performed demonstrating satisfactory zone of ablation with no evidence of bleeding or any other immediate complication. The patient tolerated the procedure well. CT/CT guided ablation renal IMPRESSION: Redemonstration of left renal mass. Limited hydrodissection performed to displace the mass from the chest wall and spleen. Technically successful percutaneous cryoablation performed utilizing 2 cryoprobes as detailed above.
[2023-01-16 12:39] LABS: Basophils Absolute Auto 0.1 X10*3/uL (0.0-0.2); Basophils Percent Auto 1.3 % (0-2); Eosinophils Absolute Auto 0.2 X10*3/uL (0.0-0.4); Eosinophils Percent Auto 3.2 % (0-4); Hematocrit 42.6 % (42.0-52.0); Imm Gran Abs Auto 0.01 X10*3/uL (0.00-0.03); Imm Gran Pct Auto 0.2 % (0.0-0.4); Lymphocytes Absolute Auto 1.4 X10*3/uL (1.2-4.9); Lymphocytes Percent Auto 24.9 % (20-40); MANUAL DIFF FLAG NO; Mean Corpuscular HGB Conc 32.9 g/dl (31.0-36.0); Mean Corpuscular Hemoglobin 29.4 pg (27.0-33.0); Mean Corpuscular Volume 89.3 fL (80.0-98.0); Mean Platelet Volume 10.3 fL (9.4-12.4); Monocytes Absolute Auto 0.5 X10*3/uL (0.1-1.2); Monocytes Percent Auto 8.2 % (2-11); Neutrophils Absolute Auto 3.5 x10*3/uL (2.0-8.3); Neutrophils Percent Auto 62.2 % (45-73); Platelet Count 242 X10*3/uL (160-400); Red Blood Count 4.77 X10*6/uL (4.60-5.80); Red Cell Distribution Width 13.4 % (11.0-16.0); White Blood Count 5.6 X10*3/uL (4.8-10.8)
[2023-01-16 12:45] LABS: INTERNATIONAL NORM RATIO 0.9 (0.9-1.1); Prothrombin Time 11.2 SEC (11.1-13.3)
[2023-01-16 12:48] LABS: Partial Thromboplastin Time 28.8 SEC (26.0-36.4)
[2023-01-16 13:00] LABS: Glucose, Whole Blood 122 mg/dL (60-115)
== END 2023-01-16 17:57 | disposition home or self-care (01) ==
PROVIDERS: Physician Assistant Surgical; Student in an Organized Health Care Education/Training Program; PCP Internal Medicine Geriatric Medicine; Visit Provider Urology
DX: C64.9 Malignant neoplasm of unspecified kidney, except renal pelvis (principal); Z90.5 Acquired absence of kidney; I10 Essential (primary) hypertension; E78.5 Hyperlipidemia, unspecified; E55.9 Vitamin D deficiency, unspecified; J44.9 Chronic obstructive pulmonary disease, unspecified; A15.0 Tuberculosis of lung; F39 Unspecified mood [affective] disorder; K85.90 Acute pancreatitis without necrosis or infection, unspecified; E11.649 Type 2 diabetes mellitus with hypoglycemia without coma; Z79.4 Long term (current) use of insulin; Z79.51 Long term (current) use of inhaled steroids; Z79.82 Long term (current) use of aspirin; Z79.899 Other long term (current) drug therapy; F11.10 Opioid abuse, uncomplicated; F17.210 Nicotine dependence, cigarettes, uncomplicated
CPT/HCPCS: 36415; 50593; 77013; 82947; 85025; 85610; 85730; 86850; 86900; 86901; C1729; C2618; J0665; J0690; J1100; J1885; J2250; J2371; J2405; J2704; J3010

== ENCOUNTER → 2023-01-16 13:18 | Outpatient (BNV) | payer OTHER, SELFPAY | PROVIDERS: PCP Internal Medicine Geriatric Medicine; Visit Provider Student in an Organized Health Care Education/Training Program | DX: N28.89 Other specified disorders of kidney and ureter (principal) | CPT/HCPCS: 50593; 77013 ==

== ENCOUNTER 2023-01-29 16:00 | Outpatient (AMB) | payer OTHER, SELFPAY ==
--- NOTE | 2023-01-29 16:02 | MHC.OFFVIS ---
Intake Intake Visit Reasons: 2 wks cryo results Allergies No Known Allergies Allergy (Verified 01/16/23 12:41) Medication List - Last Reconciled 01/29/23 by Hipolito Mcdaniel MD acetaminophen (Acetaminophen Pain Relief) 500 mg PO ONCE PRN albuterol sulfate 90 mcg/actuation (Ventolin HFA) 2 puffs inhalation Q4H PRN aspirin (Adult Low Dose Aspirin) 81 mg PO DAILY atorvastatin (Lipitor) 40 mg PO DAILY blood sugar diagnostic As directed blood sugar diagnostic (Icelandic Glacial Ultra Test strips) As directed blood-glucose meter (Mod[employer] Ultra2 Meter) As directed budesonide (Pulmicort) 1 mg inhalation DAILY PRN buprenorphine-naloxone 8-2 mg (Suboxone) 10 mg sublingual BID clonazepam (Klonopin) 2 mg PO BEDTIME clonazepam (Klonopin) 1 mg PO BID PRN docusate sodium (DOK) 100 mg PO DAILY PRN flash glucose scanning reader ([employer] Kasey 2 [place]) As directed checks 8X/day flash glucose sensor (BioceptStyle Kasey 2 Sensor kit) USE DIRECTED TO TEST BLOOD SUGAR 8 TIMES PER DAY fluticasone furoate-vilanterol 100-25 mcg/dose (Breo Ellipta) 1 ea inhalation DAILY ibuprofen (IBU) 800 mg PO TID PRN insulin aspart U-100 (Novolog FlexPen U-100 Insulin aspart) 2 - 3 units subcut TID insulin glargine (Lantus Solostar U-100 Insulin) 10 units subcut BEDTIME lancets As directed lancing device with lancets (Icelandic Glacial Delica Plus Lancing Device kit) As directed lidocaine 5% (Lidoderm) 0 patches topical DAILY PRN metformin ER 1,000 mg (2 x 500 mg) PO DAILY 30 days montelukast (Singulair) 10 mg PO DAILY naloxone 4 mg/actuation (Narcan) 0 sprays intranasal NEEDED PRN nicotine (Nicoderm CQ) 1 patch transdermal DAILY pen needle, diabetic As directed quetiapine (Seroquel) 50 mg PO BID ramelteon (Rozerem) 8 mg PO BEDTIME sennosides (senna) 8.6 mg PO DAILY silver sulfadiazine 1% (Silvadene) 1 appl topical DAILY venlafaxine ER (Effexor XR) 150 mg PO QAM HPI HPI Comments History of Present Illness Details Hubert is a pleasant male. He is a patient of Dr. [place]. He seen for the following urologic conditions. - recurrent papillary renal cell carcinoma Telemedicine Evaluation 15 min Consultation Doximity Thalia Video attempted Main concern is pain management This is ongoing Minimal issues with left side Plan for repeat imaging in 6 months Significant past medical history for COPD, history of pancreatitis, mood disorder, opioid abuse, pulmonary tuberculosis, type 1 diabetes Papillary cell carcinoma Repeat cryotherapy performed last week Minimal issues Happy with outcome Plan repeat MRI in 6 months Prior cryotherapy in 2014 - for papillary cell carcinoma - 01/24 repeat cryotherapy of 2.3 cm upper pole left renal mass Imaging - 11/24 MRI 2.3 cm T2 hypointense left upper pole renal mass, 3 small of T2 hyperintense renal lesions on right side [facility] Medical History (Updated 01/16/23 @ 12:41 by Sheila Jaimes RN) Anxiety Tubular adenoma of colon History of pancreatitis Seborrheic dermatitis Mood disorder 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 pylori infection GERD (gastroesophageal reflux disease) Abdominal wall bulge Vitamin D deficiency HLD (hyperlipidemia) HTN (hypertension) T2DM (type 2 diabetes mellitus) Surgical History History of surgery Hx of hernia repair Hx of prior ablation treatment Hx of partial nephrectomy Hx of colonoscopy History of esophagogastroduodenoscopy (EGD) Family History Father Liver cancer Diabetes Alcohol abuse Mother Diabetes Breast cancer Social History (Updated 12/06/22 @ 09:51 by JAYSON Joyce) Household Members: None Patient Tobacco Use Status: Current everyday Tobacco user Tobacco use type: Cigarette Cigarette Packs Per Day: 0.5 Cigarettes Per Day: 10 Review of Systems Const All systems reviewed & are unremarkable except as noted in HPI and below Reports no additional complaints Resp Reports no additional complaints GI Reports no additional complaints Reports as per HPI Musc Reports no additional complaints Physical Exam Telemedicine evaluation Appropriate responses Regular breathing rate and rhythm HEENT Head: Yes normal to inspection Ears: hearing grossly normal bilaterally Eyes General: appearance normal, both eyes and all related structures Neck Neck: Yes normal visual inspection Chest Chest palpation & inspection: normal inspection of the chest Resp Effort & Inspection: normal respiratory effort and able to speak in complete sentences Assessment & Plan Assessment & Plan (1) Papillary renal cell carcinoma: Code(s): C64.9 - Malignant neoplasm of unspecified kidney, except renal pelvis Plan Six month follow-up imaging Orders: Orders Creatinine 6 Months C64.9 - Malignant neoplasm of unspecified kidney, except renal pelvis MR kidney wo/w con 6 Months C64.9 - Malignant neoplasm of unspecified kidney, except renal pelvis Blood Urea Nitrogen 6 Months C64.9 - Malignant neoplasm of unspecified kidney, except renal pelvis Patient Instructions: Imaging studies, laboratory and physical exam results were discussed and reviewed in detail. No major barriers to patient understanding were identified. An opportunity to ask questions regarding the treatment plan was provided. All questions were answered. The patient expressed understanding and agreement with the above treatment plan. The patient is aware they should contact our office by phone for worsening of their current condition or the appearance of new urologic symptoms. Compliance is encouraged with any medications and followup testing that is ordered. It is a privilege to participate in the urologic care of your patient. If you have any questions or concerns regarding treatment for the above conditions, or other urologic issues, please do not hesitate to contact me. The office telephone contact is [phone]. This note is constructed using voice recognition software. While every effort has been made to ensure accuracy director of learning errors may have been included. Yours sincerely, Dr Hipolito Mcdaniel MD, [facility] - Urology Providers of Expert, Compassionate Care for the Genitourinary System Telehealth Telehealth Location of provider rendering services: practice address Location of patient: address on file Patient Identification confirmed using: Name, : Yes Telehealth method: video Patient verbally consented to treatment: Yes Patient verbally consented to billing insurance company: Yes Patient informed of any privacy concerns related to visit: Yes Coding Level of Care Code Tele Est Pt Level 3 (76737) Diagnoses Papillary renal cell carcinoma C64.9
== END 2023-01-29 16:16 | disposition home or self-care (01) ==
LOC: HO.HUSH 16:00
PROVIDERS: PCP Internal Medicine Geriatric Medicine; Visit Provider Urology
DX: C64.9 Malignant neoplasm of unspecified kidney, except renal pelvis (principal)
CPT/HCPCS: 99213

== ENCOUNTER → 2023-01-29 16:00 | Outpatient (BNVA) | payer OTHER, SELFPAY | PROVIDERS: PCP Internal Medicine Geriatric Medicine; Visit Provider Urology ==

== ENCOUNTER 2023-03-29 09:11 | Outpatient (REF) | payer OTHER, SELFPAY ==
[2023-03-29 12:06] LABS: Alanine Aminotransferase 17 U/L (0-40); Albumin Level 4.6 g/dL (3.5-5.0); Alkaline Phosphatase 74 U/L (39-117); Aspartate Amino Transferase 23 U/L (5-37); Bilirubin Direct 0.4 mg/dL (0.0-0.5); Bilirubin Total 1.1 mg/dL (0.0-1.0); Total Protein 7.6 g/dL (6.5-8.0)
[2023-03-29 12:29] LABS: HIV AB/AG Nonreactive (Nonreactive); HIV Num 1 0.04 S/CO (0.00-0.99); ~HepC Num1 4.46 S/CO (0.00-0.79); ~Hepatitis C Antibody Reactive (Nonreactive)
[2023-04-03 18:59] LABS: HCV Log PCR <1.18 NOT DETECTED Log IU/mL (NOT DETECTED); HepC Viral Load <15 NOT DETECTED IU/mL (NOT DETECTED)
== END 2023-03-29 09:12 | disposition home or self-care (01) ==
LOC: HO.HHCL 09:11
PROVIDERS: Visit Provider Family Medicine
DX: F11.20 Opioid dependence, uncomplicated (principal)
CPT/HCPCS: 36415; 80076; 86803; 87389; 87522

== ENCOUNTER 2023-05-14 08:07 | Outpatient (REF) | payer OTHER, SELFPAY ==
[2023-05-14 09:56] LABS: Cholesterol 189 mg/dL (<200); HDL Cholesterol 92 mg/dL (>40); LDL Cholesterol Calculated 82 mg/dL (<100); Triglycerides 76 mg/dL (<150)
[2023-05-14 10:26] LABS: Microalbum/Creatinine Ratio Ur 28.8 ug/mg cr (<30)
== END 2023-05-14 08:08 | disposition home or self-care (01) ==
LOC: HO.LAB 08:07
PROVIDERS: PCP Internal Medicine Geriatric Medicine; Visit Provider Internal Medicine Endocrinology, Diabetes & Metabolism
DX: E11.9 Type 2 diabetes mellitus without complications (principal)
CPT/HCPCS: 36415; 80061; 82043; 82570

== ENCOUNTER 2023-05-28 09:05 | Outpatient (AMB) | payer OTHER, SELFPAY ==
--- NOTE | 2023-05-28 09:09 | A.OFFVIS_ITS ---
Intake Vital Signs 05/28/23 09:10 Height 5 ft 5 in Weight 121 lb 7.595 oz BMI 20.2 BP 130/76 Blood Pressure Location Lt brachial Position Sitting Pulse 97 Pulse Source Pulse Oximeter Intake Visit Reasons: DM-confiemed Intake Note: Patient present today to follow up on Type 2 Diabetes Mellitus. Last Diabetic Eye exam: Over 2 years Last Podiatry Visit: Doesn't have one Random Glucose:324 mg/dl HgA1C: 8.0% Hogshead Roller Required: No Accompanied by: Self / Same As Patient Allergies No Known Allergies Allergy (Verified 05/28/23 09:14) HPI HPI Comments History of Present Illness Details Patient is a 58 yo male with DM type 2 diagnosed in 1988 when he was hospitalized with HHS/DKA who presents for management of diabetes. Past medical history: Diabetes type 2, hypertension, hyperlipidemia, vitamin-D deficiency Pancreatitis after being kicked in the stomach by horse Micro and macrovascular complications: Diabetes medications: Metformin 1000 mg BID Lantus 10 units, NovoLog 6-7 units ac meals. Does report uses extra dose at night if bg is elevated. He had history of pancreatitis while on Januvia Blood glucose monitoring: In the past 2 weeks C GM is active 91% an average blood glucose of 193 , GMI 7.9 %. Blood glucose in target range of 70-180, 43%. Blood glucose low from 54-69 1 %. Blood glucose very low less than 54 0%. Blood glucose above goal 56 %. Pattern shows post-meal hyperglycemia Symptoms reported: + numbness, tingling in lower extremities. Denies cramping in lower extremities Hypoglycemia: Rare Reports symptoms of fatigue, shakiness, sweating. Carries glucose gel at all times Hyperglycemia: +urinary frequency, +nocturia, +polydypsia Exercise: 1/2 - 1 hour a day. Rn Wound Care : meghan. Assistant Operator: denies Dental exam: has upcoming appointment, Ophthalmology evaluation: needs to make appt Other specialists: psychiatrist, therapist, nephrology Laboratory Tests 04/11/20 04/12/20 04/12/20 11:49 14:32 14:32 Hgb A1c (Clinic) 10.4 H LDL Cholesterol Di rect 61 25-OH Vitamin D To wayne 28.7 Microalb/Creat Rat io Islet Cell Ab Scre en NEGATIVE Islet Cell Ab Tite r TNP Anti-IA2 Antibody CARLOZ Antibody <5 04/12/20 04/12/20 14:32 14:32 Hgb A1c (Clinic) LDL Cholesterol Di rect 25-OH Vitamin D To wayne Microalb/Creat Rat io 41.7 Islet Cell Ab Scre en Islet Cell Ab Tite r Anti-IA2 Antibody <5.4 CARLOZ Antibody PFS Medical History (Updated 01/16/23 @ 12:41 by Sheila Jaimes RN) Anxiety Tubular adenoma of colon History of pancreatitis Seborrheic dermatitis Mood disorder 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 pylori infection GERD (gastroesophageal reflux disease) Abdominal wall bulge Vitamin D deficiency HLD (hyperlipidemia) HTN (hypertension) T2DM (type 2 diabetes mellitus) Surgical History History of surgery Hx of hernia repair Hx of prior ablation treatment Hx of partial nephrectomy Hx of colonoscopy History of esophagogastroduodenoscopy (EGD) Family History Father Liver cancer Diabetes Alcohol abuse Mother Diabetes Breast cancer Social History (Updated 12/06/22 @ 09:51 by JAYSON Joyce) Household Members: None Patient Tobacco Use Status: Current everyday Tobacco user Tobacco use type: Cigarette Cigarette Packs Per Day: 0.5 Cigarettes Per Day: 10 Physical Exam Vital Signs: Last Vital Signs Pulse 97 05/28/23 09:10 BP 130/76 05/28/23 09:10 BMI result Body Mass Index 20.2 Absence of Cushingoid features. Absence of acromegalic features. Neck exam reveals nl size thyroid about 15 gms. No thyroid nodules palpable. No carotid bruits present. Lungs CTA. Heart S1 S2, Reg R/R. No M/R/ G. Skin exam reveals absence of vitiligo or acanthosis nigricans. Abdominal exam reveals Soft NT/ND with NA BS. No organomegaly present. Neck Other: . Extrem Other: Visual exam of foot performed. No ulcerations or open lesions. No onchomycosis, no callouses.Pulses 2 + distally Sensation intact to monofilament exam. Vibratory sensation sensed is intact with 128 Hz tuning fork. The left lower extremity has an open wound s/P surgery that the pt has f/u next wk Results AMB Hemoglobin A1c AMB Hemoglobin A1c 8.0 % Last Edit by JYASON Carcamo on 05/28/23 09:31 Results Reviewed Results Reviewed: Laboratory Last Values Glucose (Clinic) 324 mg/dL (60-115) H 05/28/23 09:17 Assessment & Plan Assessment & Plan (1) T2DM (type 2 diabetes mellitus): Code(s): E11.9 - Type 2 diabetes mellitus without complications Qualifiers: Diabetes mellitus spanish language lecturer insulin use: with custodial use Diabetes mellitus complication status: with hyperglycemia Qualified Code(s): E11.65 - Type 2 diabetes mellitus with hyperglycemia; Z79.4 - 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 He appears to be very thin most likely is insulin deficient Plan is to increase the NovoLog to 7-10 units pre dinner . Increase Lantus to 14 units . I told him report any hypoglycemia. Will have patient follow- up with school vocational educator. Can not use a G LP 1 agonist because of the history of pancreatitis. He might also benefit from use of an insulin pump I told him discuss this with the school vocational educator. Told him to also make follow-up appointment ophthalmology Orders: Orders AMB Hemoglobin A1c Today E11.9 - Type 2 diabetes mellitus without complications, Z13.9 - Encounter for screening, unspecified Coding Level of Care Code Est Pt Level 4 (28650) Diagnoses Type 2 diabetes mellitus with hyperglycemia, with long-term current use of insulin E11.65; Z79.4 Diabetes mellitus spanish language lecturer insulin use: with custodial use Diabetes mellitus complication status: with hyperglycemia
[2023-05-28 09:10] VITALS: BP 130/76; PULSE 97; BMI 20.2
[2023-05-28 09:22] LABS: Glucose, Whole Blood 324 mg/dL (60-115)
== END 2023-05-28 10:05 | disposition home or self-care (01) ==
PROVIDERS: PCP Internal Medicine Geriatric Medicine; Visit Provider Internal Medicine Endocrinology, Diabetes & Metabolism
DX: Z13.9 Encounter for screening, unspecified (principal); E11.9 Type 2 diabetes mellitus without complications; E11.65 Type 2 diabetes mellitus with hyperglycemia; Z79.4 Long term (current) use of insulin
CPT/HCPCS: 99214

== ENCOUNTER → 2023-05-28 09:05 | Outpatient (BNVA) | payer OTHER, SELFPAY | PROVIDERS: PCP Internal Medicine Geriatric Medicine; Visit Provider Internal Medicine Endocrinology, Diabetes & Metabolism | DX: E11.65 Type 2 diabetes mellitus with hyperglycemia (principal); I10 Essential (primary) hypertension; E78.5 Hyperlipidemia, unspecified; Z79.4 Long term (current) use of insulin; Z79.84 Long term (current) use of oral hypoglycemic drugs | CPT/HCPCS: 82947; 83036; 99212 ==

== ENCOUNTER 2023-06-11 12:07 | Outpatient (AMB) | payer OTHER, SELFPAY ==
--- NOTE | 2023-06-11 13:01 | A.OFFVIS_ITS ---
Intake Intake Visit Reasons: f/u Type 2 DM Cover Cutter Machine Required: No Accompanied by: Self / Same As Patient Allergies No Known Allergies Allergy (Verified 05/28/23 09:14) HPI Comprehensive Diabetes Asmnt Most Recent Diabetes Results: Microalb/Creat Ratio 28.8 ug/mg cr (<30) 05/14/23 Cholesterol 189 mg/dL (<200) 05/14/23 HDL Cholesterol 92 mg/dL (>40) 05/14/23 Triglycerides 76 mg/dL (<150) 05/14/23 AST 23 U/L (5-37) 03/29/23 ALT 17 U/L (0-40) 03/29/23 Total Protein 7.6 g/dL (6.5-8.0) 03/29/23 Albumin 4.6 g/dL (3.5-5.0) 03/29/23 [facility] Medical History (Updated 01/16/23 @ 12:41 by Sheila Jaimes RN) Anxiety Tubular adenoma of colon History of pancreatitis Seborrheic dermatitis Mood disorder 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 pylori infection GERD (gastroesophageal reflux disease) Abdominal wall bulge Vitamin D deficiency HLD (hyperlipidemia) HTN (hypertension) T2DM (type 2 diabetes mellitus) Surgical History History of surgery Hx of hernia repair Hx of prior ablation treatment Hx of partial nephrectomy Hx of colonoscopy History of esophagogastroduodenoscopy (EGD) Family History Father Liver cancer Diabetes Alcohol abuse Mother Diabetes Breast cancer Social History (Updated 12/06/22 @ 09:51 by JAYSON Joyce) Household Members: None Patient Tobacco Use Status: Current everyday Tobacco user Tobacco use type: Cigarette Cigarette Packs Per Day: 0.5 Cigarettes Per Day: 10 Assessment & Plan Assessment & Plan (1) T2DM (type 2 diabetes mellitus): Code(s): E11.9 - Type 2 diabetes mellitus without complications Qualifiers: Diabetes mellitus retirement insulin 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 The patient met all learning objectives and was able to verbalize understanding and provide teach back of education topics discussed . The patient was provided with the opportunity to ask questions and all questions were answered. Patient Assessment Assess patient education level/literacy/barriers Patient questions/concerns, patient lives in senior housing, [employer] prepares meals, does food shopping. Patient does receive snap benefits, discussed with patient using hip portion of snap benefit to supplement healthy fruits and vegetables in his diet. Was unable to review glucose levels at this visit, patient forgot meter at home What is Diabetes? Pathophysiology How the body produces and uses insulin Identify type of DM Risk factors Signs of Diabetes Brief overview of Diabetes Management Monitoring blood sugar Following a meal plan Regular exercise Maintaining a healthy weight Taking medication as needed Members of the care team (PCP, RN, MA, RD, CDE, food and nutrition services supervisor) Blood glucose monitoring When/how often to test Target blood sugar ranges Patient use [email or web address] 2 glucose sensor, did not bring meter to today's visit Introduction to Nutrition Importance of healthy diet in managing DM Diet is personalized to individual preference Review patient?s regular diet/food preferences Who prepares meals/does food shopping/ Dining out?/ Barriers? How diet effects glucose Eating 3 balanced meals a day with small, healthy snacks between meals Review food groups Carbohydrates: What is a carbohydrate/Which food/food groups are considered carbohydrates Effect of carbohydrates on blood glucose Portion sizes Reading food labels Basic carb counting (if applicable per nursing assessment) Plate method Meal planning Recommendations: Follow plate method, consistent carbs and read nutritional labels. Smart Goal: Patient will bring meter to every visit Educational Materials: The patient was provided with the following written educational materials: Planning Healthy Meals Handout Patient Response to instructions: Comprehension of Instructions: Fair Readiness to make changes: Contemplation How confident they feel about making changes: Positive Patient Instructions: Include regular daily activity. ADA recommends 30 minutes of exercise 5 days a week. Weight loss talk to PCP or Therapeutic Massage Technician before starting new plan. Test blood sugar as directed; Fasting and 2hpp largest meal. Watch trends in results. Utilize results and to assess how food, physical activity and medications affect blood sugar results. Bring glucometer or CGM to next visit. Be knowledgeable about diabetes medication, its action, side effects, efficacy, toxicity, prescribed dosage, appropriate timing and frequency of administration, effect of missed and delayed doses and instructions for storage, travel and safety. Problem solving techniques to monitor hypo/hyperglycemia episodes and treatments. Reduce risk reduction behaviors, smoking cessation, regular eye, foot and dental examinations. 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
== END 2023-06-11 13:05 | disposition home or self-care (01) ==
PROVIDERS: PCP Internal Medicine Geriatric Medicine; Visit Provider Registered Nurse Diabetes Educator
DX: E11.65 Type 2 diabetes mellitus with hyperglycemia (principal); Z79.4 Long term (current) use of insulin

== ENCOUNTER → 2023-06-11 12:07 | Outpatient (BNVA) | payer OTHER, SELFPAY | PROVIDERS: PCP Internal Medicine Geriatric Medicine; Visit Provider Registered Nurse Diabetes Educator | DX: E11.65 Type 2 diabetes mellitus with hyperglycemia (principal); Z79.4 Long term (current) use of insulin | CPT/HCPCS: 99211 ==

== ENCOUNTER 2023-08-02 09:10 | Outpatient (REF) | payer OTHER, SELFPAY ==
--- NOTE | ~2023-08-02 | MR_ITS ---
EXAMINATION: MR kidney with and without contrast CLINICAL INFORMATION: Malignant neoplasm left kidney post cryoablation 01/16/2023 COMPARISON: Previous MRI of the kidneys November 2022 CT of the abdomen and pelvis September 2022 and renal ultrasound August 2020 TECHNIQUE: Sagittal axial and coronal sequences through the abdomen with and without contrast. Patient received 5.5 mL Gadavist IV contrast. FINDINGS: There is a 1.8 x 2.3 cm lesion exophytic to the lateral upper to midpole of the left kidney. This is high signal on T1-weighted sequences, low signal on T2-weighted sequences and demonstrates delayed peripheral rim enhancement. This is decreased in size from approximately 2.1 x 2.3 cm November 2022 exam. There is stable appearance to the 1.2 cm low signal T1 low signal T2 lesion in the upper pole of the right kidney with faint enhancement for example axial image 43 series 104 postcontrast. 2 smaller similar signal lesions in the mid to lower pole the right kidney measuring 10 mm in the lower pole of the left kidney axial image 67 series 10 and 7 mm in the lower pole of the right kidney axial image 53 series 104 with question of faint enhancement. The 10 mm lesion in the lower pole of the left kidney appears increased in size from 7 mm on prior exam. 7 mm lesion in the lower pole the right kidney appears unchanged. There are additional smaller 4 to 5 mm lesions in the mid lower pole of both kidneys difficult to characterize. No hydronephrosis. Scarring or subsegmental atelectasis at the right lung base. The liver is normal in size, shape and signal. No focal liver lesion or intrahepatic biliary duct dilatation. Mild dilatation of the common bile duct measuring 9 mm similar to prior exam Normal gallbladder. No gallstones seen. Atrophic changes of the pancreas area and mild dilatation of the main pancreatic duct measuring 4 mm. Stable small cyst in the head of the pancreas measuring 6 mm. Normal spleen. Normal adrenal glands. There is abnormal signal seen in the medial cecum near the ileocecal valve. This measures approximately 3 cm. This is appreciated on sagittal and coronal T2 sequences only. This is not appreciated on coronal T1 fat-sat sequences postcontrast and may represent stool or prominent fat at the valve. Visualized bowel otherwise unremarkable. Normal vascular structures. No ascites or adenopathy. No hernia. Bone marrow signal is normal. MR/MR kidney wo/w con IMPRESSION: Interval decrease in size in the treated lesion in the exophytic to the lateral upper pole of the left kidney measuring 1.8 x 2.3 cm compared to 2.1 x 2.3 cm on previous exam. This demonstrates delayed peripheral enhancement. Continued imaging surveillance recommended. Stable appearance to the 1.2 cm lesion in the upper pole of the right kidney with signal and enhancement characteristics again questionable for papillary type renal cell carcinoma. There are 2 smaller lesions in the lower pole of the right and left kidneys with similar signal characteristics and question faint enhancement also suspicious for papillary type renal cell carcinoma. There is slight interval increase in the lesion in the lower pole of the left kidney now measuring 10 mm compared to 7 mm on prior exam. There are additional smaller 4 to 5 mm signal abnormalities in the mid and lower pole of both kidneys difficult to characterize. 3 cm area of abnormal signal in the medial cecum near the ileocecal valve seen on sagittal and coronal images only. This is not appreciated on fat sat postcontrast coronal sequences and may represent fatty infiltration / prominent ileocecal valve or stool.
[2023-08-02] MEDS: gadobutroL 7.5 ML VIAL IVPUSH (10:29)
== END 2023-08-02 09:11 | disposition home or self-care (01) ==
LOC: HO.MRI 09:10
PROVIDERS: PCP Internal Medicine Geriatric Medicine; Visit Provider Urology
DX: C64.9 Malignant neoplasm of unspecified kidney, except renal pelvis (principal)
CPT/HCPCS: 74183; A9585

== ENCOUNTER 2023-08-23 08:56 | Outpatient (REF) | payer OTHER, SELFPAY ==
[2023-08-23 12:14] LABS: Vitamin B12 386 pg/mL (200-900)
[2023-08-23 12:21] LABS: Anion Gap 13 (12-20); Blood Urea Nitrogen 18 mg/dL (9-16); Calcium 9.9 mg/dL (8.4-10.2); Carbon Dioxide 27 mmol/L (22-29); Chloride 105 mmol/L (96-108); Estimated Glomerular Filt Rate > 60; Glucose Random 164 mg/dL (60-115); Potassium 4.2 mmol/L (3.3-5.1); Sodium 141 mmol/L (135-145)
== END 2023-08-23 08:57 | disposition home or self-care (01) ==
LOC: HO.HHCL 08:56
PROVIDERS: Visit Provider Internal Medicine Geriatric Medicine
DX: E11.65 Type 2 diabetes mellitus with hyperglycemia (principal); J44.9 Chronic obstructive pulmonary disease, unspecified; Z79.4 Long term (current) use of insulin
CPT/HCPCS: 36415; 80048; 82607

== ENCOUNTER 2023-09-27 12:27 | Outpatient (AMB) | payer OTHER, SELFPAY ==
--- NOTE | 2023-09-27 13:07 | MHC.OFFVIS ---
Intake Visit Reasons: 8M Follow Up-MRI(set) Intake Note: Patient is Present for 8M Follow Up/MRI Urology Med: None Antibiotic Allergy:None Blood Thinner: Aspirin Research Manager Required: No Allergies No Known Allergies Allergy (Verified 09/27/23 13:08) Medication List - Last Reconciled 09/27/23 by Hipolito Mcdaniel MD acetaminophen (Acetaminophen Pain Relief) 500 mg PO ONCE PRN albuterol sulfate 90 mcg/actuation (Ventolin HFA) 2 puffs inhalation Q4H PRN aspirin (Adult Low Dose Aspirin) 81 mg PO DAILY atorvastatin (Lipitor) 40 mg PO DAILY blood sugar diagnostic As directed blood sugar diagnostic ([employer] Ultra Test strips) As directed blood-glucose meter ([place] [employer] Ultra2 Meter) As directed budesonide (Pulmicort) 1 mg inhalation DAILY PRN buprenorphine-naloxone 8-2 mg (Suboxone) 10 mg sublingual BID clonazepam (Klonopin) 2 mg PO BEDTIME clonazepam (Klonopin) 1 mg PO BID PRN docusate sodium (DOK) 100 mg PO DAILY PRN flash glucose scanning reader ([employer] Kasey 2 [place]) As directed checks 8X/day flash glucose sensor ([employer] Kasey 2 Sensor kit) USE DIRECTED TO TEST BLOOD SUGAR 8 TIMES DAILY fluticasone furoate-vilanterol 100-25 mcg/dose (Breo Ellipta) 1 ea inhalation DAILY ibuprofen (IBU) 800 mg PO TID PRN insulin aspart U-100 (Novolog FlexPen U-100 Insulin aspart) 2 - 3 units subcut TID insulin glargine (Lantus Solostar U-100 Insulin) 10 units subcut BEDTIME lancets As directed lancing device with lancets ([employer] Delica Plus Lancing Device kit) As directed lidocaine 5% (Lidoderm) 0 patches topical DAILY PRN metformin ER 1,000 mg (2 x 500 mg) PO DAILY 30 days montelukast (Singulair) 10 mg PO DAILY naloxone 4 mg/actuation (Narcan) 0 sprays intranasal NEEDED PRN nicotine (Nicoderm CQ) 1 patch transdermal DAILY pen needle, diabetic As directed quetiapine (Seroquel) 50 mg PO BID ramelteon (Rozerem) 8 mg PO BEDTIME sennosides (senna) 8.6 mg PO DAILY silver sulfadiazine 1% (Silvadene) 1 appl topical DAILY HPI Comments Details: Hubert is a pleasant male. He is a patient of Dr. Spain. He seen for the following urologic conditions. - recurrent papillary renal cell carcinoma Imaging shows shrinkage of area Continue surveillance Significant past medical history for COPD, history of pancreatitis, mood disorder, opioid abuse, pulmonary tuberculosis, type 1 diabetes Papillary cell carcinoma Repeat cryotherapy performed last week Minimal issues Happy with outcome Plan repeat MRI in 6 months Prior cryotherapy in 2014 - for papillary cell carcinoma - 01/24 repeat cryotherapy of 2.3 cm upper pole left renal mass Imaging - 11/24 MRI 2.3 cm T2 hypointense left upper pole renal mass, 3 small of T2 hyperintense renal lesions on right side - 08/25 MRI shows shrinkage of initial lesion with cryotherapy effect PFSH Medical History (Updated 01/16/23 @ 12:41 by Sheila Jaimes, COREY) Anxiety Tubular adenoma of colon History of pancreatitis Seborrheic dermatitis Mood disorder 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 pylori infection GERD (gastroesophageal reflux disease) Abdominal wall bulge Vitamin D deficiency HLD (hyperlipidemia) HTN (hypertension) T2DM (type 2 diabetes mellitus) Surgical History History of surgery Hx of hernia repair Hx of prior ablation treatment Hx of partial nephrectomy Hx of colonoscopy History of esophagogastroduodenoscopy (EGD) Family History Father Liver cancer Diabetes Alcohol abuse Mother Diabetes Breast cancer Social History (Updated 12/06/22 @ 09:51 by JAYSON Joyce) Household Members: None Patient Tobacco Use Status: Current everyday Tobacco user Tobacco use type: Cigarette Cigarette Packs Per Day: 0.5 Cigarettes Per Day: 10 Review of Systems Const Denies chills and Denies fever(s) Card Reports no additional complaints and Denies syncope Resp Denies cough GI Denies abdominal pain and Denies heartburn Reports as per HPI and Denies change in libido Neuro Denies syncope Psych Denies change in libido Endo Denies change in libido Physical Exam Const General: cooperative, healthy appearing, comfortable and no acute distress Orientation/consciousness: patient oriented x3 HEENT Face and sinus: Yes normal facial exam Mouth: moist mucous membranes Neck Neck: Yes normal visual inspection, Yes full ROM and Yes trachea midline Chest Chest palpation & inspection: normal inspection of the chest Resp Effort & Inspection: normal respiratory effort, able to speak in complete sentences and no respiratory distress GI Inspection: Yes normal to inspection Back/Spine/Pelvis Cervical Spine: normal cervical lordosis Thoracic/Lumbar Spine: thoracic and lumbar spine normal to inspection Skin General skin exam: no rashes or lesions noted Neuro General: patient oriented x3, gait normal, tone normal and moves all extremities Extrem General: Yes normal to inspection and Yes capillary refill normal Results AMB Urinalysis, Automated UA Leukoctes 0 Aaron/uL Last Edit by REILLY Cuba on 09/27/23 13:24 UA Nitrite Negative Last Edit by REILLY Cuba on 09/27/23 13:24 UA Urobilinogen 0.2 mg/dL Last Edit by REILLY Cuba on 09/27/23 13:24 UA Protein 0 mg/dL Last Edit by Edilia Menjivar CCM on 09/27/23 13:24 UA pH 5.5 Last Edit by Edilia Menjivar CCM on 09/27/23 13:24 UA Blood 0 Chaz/uL Last Edit by Edilia Menjivar CCM on 09/27/23 13:24 UA Specific [place] 1.020 Last Edit by REILLY Cuba on 09/27/23 13:24 UA Ketone Negative Last Edit by REILLY Cuba on 09/27/23 13:24 UA Bilirubin 0 mg/dL Last Edit by Edilia Menjivar CCM on 09/27/23 13:24 UA Glucose 0 mg/dL Last Edit by Edilia Menjivar CCM on 09/27/23 13:24 Results Reviewed Results Reviewed: Laboratory Last Values Urine pH (Auto) 5.5 09/27/23 13:23 Specific [place] (Auto) 1.020 09/27/23 13:23 Urine Protein (Auto) 0 mg/dL 09/27/23 13:23 Glucose (UA)(Auto) 0 mg/dL 09/27/23 13:23 Urine Ketones (Auto) Negative 09/27/23 13:23 Urine Blood (Auto) 0 Chaz/uL 09/27/23 13:23 Urine Nitrite (Auto) Negative 09/27/23 13:23 Urine Bilirubin (Auto) 0 mg/dL 09/27/23 13:23 Urine Urobilinogen (Auto) 0.2 mg/dL 09/27/23 13:23 Leukocyte Esterase (Auto) 0 Aaron/uL 09/27/23 13:23 Assessment & Plan Assessment & Plan (1) Papillary renal cell carcinoma: Code(s): C64.9 - Malignant neoplasm of unspecified kidney, except renal pelvis Category: Medical Plan Six month follow-up labs Orders: Orders AMB Urinalysis Automated Today Z13.9 - Encounter for screening, unspecified Creatinine 6 Months C64.9 - Malignant neoplasm of unspecified kidney, except renal pelvis Patient Instructions: Imaging studies, laboratory and physical exam results were discussed and reviewed in detail. No major barriers to patient understanding were identified. An opportunity to ask questions regarding the treatment plan was provided. All questions were answered. The patient expressed understanding and agreement with the above treatment plan. The patient is aware they should contact our office by phone for worsening of their current condition or the appearance of new urologic symptoms. Compliance is encouraged with any medications and followup testing that is ordered. It is a privilege to participate in the urologic care of your patient. If you have any questions or concerns regarding treatment for the above conditions, or other urologic issues, please do not hesitate to contact me. The office telephone contact is [phone]. This note is constructed using voice recognition software. While every effort has been made to ensure accuracy customer support assistant errors may have been included. Yours sincerely, Dr Hipolito Mcdaniel MD, [facility] - Urology Providers of Expert, Compassionate Care for the Genitourinary System Coding Level of Care Code Est Pt Level 3 (80681) Diagnoses Papillary renal cell carcinoma C64.9
== END 2023-09-27 13:52 | disposition home or self-care (01) ==
PROVIDERS: PCP Internal Medicine Geriatric Medicine; Visit Provider Urology
DX: C64.9 Malignant neoplasm of unspecified kidney, except renal pelvis (principal); Z13.9 Encounter for screening, unspecified
CPT/HCPCS: 99213

== ENCOUNTER → 2023-09-27 12:27 | Outpatient (BNVA) | payer OTHER, SELFPAY | PROVIDERS: PCP Internal Medicine Geriatric Medicine; Visit Provider Urology | DX: C64.9 Malignant neoplasm of unspecified kidney, except renal pelvis (principal) | CPT/HCPCS: 81003; 99212 ==

== ENCOUNTER 2023-10-04 09:44 | Outpatient (AMB) | payer OTHER, SELFPAY ==
[2023-10-04 09:46] VITALS: BP 100/70; PULSE 106; BMI 20.1
--- NOTE | 2023-10-04 09:46 | A.OFFVIS_ITS ---
Vital Signs 10/04/23 09:46 Height 5 ft 5 in Weight 120 lb 9.486 oz BMI 20.1 BP 100/70 Blood Pressure Location Lt brachial Position Sitting Pulse 106 H Pulse Source Pulse Oximeter Intake Visit Reasons: T2DM/CONFIRMED Intake Note: Patient presents today for [facility] follow up visit. Last Diabetic Eye exam: Over 5 years ago Last Podiatry Visit:Doesn't have one. Random Glucose: 196 mg/dl HgA1c: 9.2% Dispatcher Automobile Rental Required: No Accompanied by: Self / Same As Patient Allergies No Known Allergies Allergy (Verified 10/04/23 09:51) Medication List - Last Reconciled 10/04/23 by Kavya Reardon PA-C acetaminophen (Acetaminophen Pain Relief) 500 mg PO ONCE PRN albuterol sulfate 90 mcg/actuation (Ventolin HFA) 2 puffs inhalation Q4H PRN aspirin (Adult Low Dose Aspirin) 81 mg PO DAILY atorvastatin (Lipitor) 40 mg PO DAILY blood sugar diagnostic As directed blood sugar diagnostic ([employer] Ultra Test strips) As directed blood-glucose meter ([employer] Ultra2 Meter) As directed budesonide (Pulmicort) 1 mg inhalation DAILY PRN buprenorphine-naloxone 8-2 mg (Suboxone) 10 mg sublingual BID clonazepam (Klonopin) 2 mg PO BEDTIME clonazepam (Klonopin) 1 mg PO BID PRN docusate sodium (DOK) 100 mg PO DAILY PRN flash glucose scanning reader ([employer] Kasey 2 Wall) As directed checks 8X/day flash glucose sensor ([employer] Kasey 2 Sensor kit) USE DIRECTED TO TEST BLOOD SUGAR 8 TIMES DAILY fluticasone furoate-vilanterol 100-25 mcg/dose (Breo Ellipta) 1 ea inhalation DAILY ibuprofen (IBU) 800 mg PO TID PRN insulin aspart U-100 (Novolog FlexPen U-100 Insulin aspart) 2 - 3 units subcut TID lancets As directed lancing device with lancets ([employer] Delica Plus Lancing Device kit) As directed lidocaine 5% (Lidoderm) 0 patches topical DAILY PRN metformin ER 1,000 mg (2 x 500 mg) PO DAILY 30 days montelukast (Singulair) 10 mg PO DAILY naloxone 4 mg/actuation (Narcan) 0 sprays intranasal NEEDED PRN nicotine (Nicoderm CQ) 1 patch transdermal DAILY pen needle, diabetic As directed quetiapine (Seroquel) 50 mg PO BID ramelteon (Rozerem) 8 mg PO BEDTIME sennosides (senna) 8.6 mg PO DAILY silver sulfadiazine 1% (Silvadene) 1 appl topical DAILY HPI HPI T2DM/CONFIRMED: Details: Patient is a 58 yo male with DM type 2 diagnosed in 1988 when he was hospitalized with HHS/DKA who presents for management of diabetes. He last saw Dr. Ramirez in May. Kip is here today to help with translation. Past medical history: Diabetes type 2, hypertension, hyperlipidemia, vitamin-D deficiency Pancreatitis after being kicked in the stomach by horse Micro and macrovascular complications: Diabetes medications: Metformin 1000 mg BID Lantus 8 units, NovoLog 8 units ac meals. He had history of pancreatitis while on Januvia. A1c today is 9.2. Blood glucose monitoring: In the past 2 weeks CGM is active 96% an average blood glucose of 190 , GMI 7.1 %. Blood glucose in target range of 70-180, 45%. Blood glucose low from 54-69 1 %. Blood glucose very low less than 54 0%. Blood glucose above goal 54 %. Pattern shows post-meal hyperglycemia and overnight lows. Hypoglycemia: Reports symptoms of fatigue, shakiness, sweating. States that he corrects it with orange juice. Hyperglycemia: +urinary frequency, +nocturia, +polydypsia Denies having diabetic Education. Exercise: 1/2 - 1 hour a day. Clinical Coder : meghan. Treasury Director: denies Ophthalmology evaluation: needs to make appt Other specialists: psychiatrist, therapist, nephrology [facility] Medical History (Updated 10/04/23 @ 10:52 by Kavya Reardon PA-C) Anxiety Tubular adenoma of colon History of pancreatitis Seborrheic dermatitis Mood disorder 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 pylori infection GERD (gastroesophageal reflux disease) Abdominal wall bulge Vitamin D deficiency HLD (hyperlipidemia) HTN (hypertension) T2DM (type 2 diabetes mellitus) Surgical History History of surgery Hx of hernia repair Hx of prior ablation treatment Hx of partial nephrectomy Hx of colonoscopy History of esophagogastroduodenoscopy (EGD) Family History Father Liver cancer Diabetes Alcohol abuse Mother Diabetes Breast cancer Social History Household Members: None Patient Tobacco Use Status: Current everyday Tobacco user Tobacco use type: Cigarette Cigarette Packs Per Day: 0.5 Cigarettes Per Day: 10 Physical Exam Vital Signs: Last Vital Signs Pulse 106 H 10/04/23 09:46 BP 100/70 10/04/23 09:46 BMI result Body Mass Index 20.1 Const Orientation/consciousness: patient oriented x3 Neck Neck: Yes no lymphadenopathy Thyroid: Thyroid normal Carotids: no bruits Resp Auscultation: clear to auscultation bilaterally Cardio Rate: regular rate Rhythm: regular rhythm Heart sounds: S1 normal heart sound present and S2 normal heart sound present Peripheral pulses: dorsalis pedis present Neuro General: patient oriented x3, gait normal and no focal motor deficits Extrem Other: Monofilament sensation intact bilaterally. Vibratory sensation intact bilaterally. Skin intact. General: Yes normal to inspection Results AMB Hemoglobin A1c AMB Hemoglobin A1c 9.2 % Last Edit by JAYSON Carcamo on 10/04/23 10:23 Results Reviewed Results Reviewed: Laboratory Last Values Glucose (Clinic) 196 mg/dL (60-115) H 10/04/23 09:53 Laboratory Tests 05/28/23 08/23/23 09:22 08:57 Sodium 141 Potassium 4.2 Chloride 105 Carbon Dioxide 27 Anion Gap 13 BUN 18 H Creatinine 0.78 Estimated GFR > 60 Random Glucose 164 H Hgb A1c (Clinic) 8.0 H Assessment & Plan Assessment & Plan (1) Uncontrolled diabetes mellitus with hypoglycemia: Code(s): E11.649 - Type 2 diabetes mellitus with hypoglycemia without coma Category: Medical Qualifiers: Diabetes mellitus type: type 2 Coma presence: without coma Qualified Code(s): E11.649 - Type 2 diabetes mellitus with hypoglycemia without coma Plan: Patient reports today a family history of type 1 diabetes. Labs ordered today. Given his hypoglycemic events overnight I have advised him to eat a snack prior to going to bed. I will switch him to Tresiba 8 units nightly, ? If Lantus is wearing off as most of his high blood sugars are after 15:00. We will reduce NovoLog at supper time to 4 units due to the low sugars at sometimes happen at 21:00 and between 12 and 03:00. I spent more than 1 hour in [id number] time today discussing the pathophysiology of diabetes. We reviewed the complications associated with diabetes and warning signs of hypoglycemic events. Glucose tabs order to use as needed. Orders: Orders Glutamic acid decarboxylase Ab Today E11.649 - Type 2 diabetes mellitus with hypoglycemia without coma Islet Cell Antibody Scrn/Titer Today E11.649 - Type 2 diabetes mellitus with hypoglycemia without coma C Peptide Today E11.649 - Type 2 diabetes mellitus with hypoglycemia without coma AMB Hemoglobin A1c Today E11.65 - Type 2 diabetes mellitus with hyperglycemia, Z13.9 - Encounter for screening, unspecified, Z79.4 - intermediate (current) use of insulin Medications: New insulin degludec (Tresiba FlexTouch U-100 insulin) 8 units (0.08 mL) subcut DAILY 15 mL 3RF glucose (Dex4 Glucose) until symptoms of low blood sugar are controlled 16 grams (4 x 4 gram) PO Q15M PRN 100 tabs 0RF hypoglycemia insulin aspart U-100 (Novolog FlexPen U-100 Insulin aspart) inject sq 6 units with breakfast, 8 units with lunch, 4 units with supper. 15 mL 1RF Coding Level of Care Code Est Pt Level 5 (21787) Complex EM visit Add On G2211 Diagnoses Uncontrolled type 2 diabetes mellitus with hypoglycemia without coma E11.649 Diabetes mellitus type: type 2 Coma presence: without coma
[2023-10-04 09:57] LABS: Glucose, Whole Blood 196 mg/dL (60-115)
== END 2023-10-04 10:38 | disposition home or self-care (01) ==
PROVIDERS: PCP Internal Medicine Geriatric Medicine; Visit Provider Physician Assistant
DX: Z13.9 Encounter for screening, unspecified (principal); E11.65 Type 2 diabetes mellitus with hyperglycemia; Z79.4 Long term (current) use of insulin; E11.649 Type 2 diabetes mellitus with hypoglycemia without coma
CPT/HCPCS: 99215; G2211

== ENCOUNTER 2023-10-15 12:06 | Outpatient (AMB) | payer OTHER, SELFPAY ==
--- NOTE | 2023-10-15 13:03 | MHC.AMDMED ---
Intake Intake Visit Reasons: Type 2 DM-confirmed Document Advisor Required: Yes Document Advisor Language: Doctor Of Podiatric Medicine Name: Shaheed [facility] Accompanied by: Self / Same As Patient Allergies No Known Allergies Allergy (Verified 10/04/23 09:51) HPI Comprehensive Diabetes Asmnt Most Recent Diabetes Results: Creatinine 0.78 mg/dL (0.5-1.4) 08/23/23 Blood Urea Nitrogen 18 mg/dL (9-16) H 08/23/23 Sodium 141 mmol/L (135-145) 08/23/23 Potassium 4.2 mmol/L (3.3-5.1) 08/23/23 Chloride 105 mmol/L (96-108) 08/23/23 Carbon Dioxide 27 mmol/L (22-29) 08/23/23 Calcium 9.9 mg/dL (8.4-10.2) 08/23/23 [facility] Medical History (Updated 10/04/23 @ 10:52 by Kavya Reardon PA-C) Anxiety Tubular adenoma of colon History of pancreatitis Seborrheic dermatitis Mood disorder 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 pylori infection GERD (gastroesophageal reflux disease) Abdominal wall bulge Vitamin D deficiency HLD (hyperlipidemia) HTN (hypertension) T2DM (type 2 diabetes mellitus) Surgical History History of surgery Hx of hernia repair Hx of prior ablation treatment Hx of partial nephrectomy Hx of colonoscopy History of esophagogastroduodenoscopy (EGD) Family History Father Liver cancer Diabetes Alcohol abuse Mother Diabetes Breast cancer Social History Household Members: None Patient Tobacco Use Status: Current everyday Tobacco user Tobacco use type: Cigarette Cigarette Packs Per Day: 0.5 Cigarettes Per Day: 10 Assessment & Plan Assessment & Plan (1) T2DM (type 2 diabetes mellitus): Code(s): E11.9 - Type 2 diabetes mellitus without complications Qualifiers: Diabetes mellitus complication status: with hyperglycemia Diabetes mellitus termite exterminator helper insulin use: with termite exterminator helper use Qualified Code(s): E11.65 - Type 2 diabetes mellitus with hyperglycemia; Z79.4 - half-way (current) use of insulin Plan: Personal Continuous Glucose Monitor: Patients CGM information reviewed Reviewed patient's sensor data: Hypoglycemia: ? 1% Hyperglycemia:? 56% Time in Range:? 43% Average glucose for the last 2 weeks? 195 mg/dL Patient having postprandial hyperglycemia, recommended to patient for large meals use Humalog 5 units, for regular meals use Humalog 4 units Patient had 2 episodes of hypoglycemia in the last 14 days Reviewed with patient how to use rule of 15s to treat hypoglycemia, patient carries glucose tabs with him, reports he uses fruit juice to treat hypoglycemia at home Patient also given healthy plate handout, reviewed carb lists and portion sizes at mealtime Patient reports strong family history of diabetes Stated he wants to improve glucose levels to avoid complications that he is seen with his family Reviewed how to interpret trend arrows Reminded patient that to check finger sticks if symptoms do not match sensor reading. Discussed lag time between finger stick and sensor data.? Patient able to insert sensor independently at home without issue.? Recommended to patient he scan sensor every 4-6 hours while awake, to avoid gaps in glucose data Patient has follow-up appointment with physician's title assistant on 10/18/2023 Portions of this note were created using voice recognition software, please excuse any words or phrases that may have been misinterpreted. Patient Instructions: Patient will follow-up with powerhouse laborer in 1 month Coding Level of Care Code Est Pt Level 1 (93563) Diagnoses Type 2 diabetes mellitus with hyperglycemia, with long-term current use of insulin E11.65; Z79.4 Diabetes mellitus complication status: with hyperglycemia Diabetes mellitus termite exterminator helper insulin use: with termite exterminator helper use
== END 2023-10-15 13:05 | disposition home or self-care (01) ==
PROVIDERS: PCP Internal Medicine Geriatric Medicine; Visit Provider Registered Nurse Diabetes Educator
DX: E11.65 Type 2 diabetes mellitus with hyperglycemia (principal); Z79.4 Long term (current) use of insulin

== ENCOUNTER → 2023-10-15 12:06 | Outpatient (BNVA) | payer OTHER, SELFPAY | PROVIDERS: PCP Internal Medicine Geriatric Medicine; Visit Provider Registered Nurse Diabetes Educator | DX: E11.65 Type 2 diabetes mellitus with hyperglycemia (principal); E11.649 Type 2 diabetes mellitus with hypoglycemia without coma; Z79.4 Long term (current) use of insulin | CPT/HCPCS: 99211 ==

== ENCOUNTER 2023-10-16 10:13 | Outpatient (REF) | payer OTHER, SELFPAY ==
[2023-10-21 21:13] LABS: Glutamic acid decarboxylase Ab <5 IU/mL (<5)
[2023-10-29 03:39] LABS: Islet Cell Antibody Screen NEGATIVE (NEGATIVE)
== END 2023-10-16 10:14 | disposition home or self-care (01) ==
LOC: HO.HHCL 10:13
PROVIDERS: Visit Provider Physician Assistant
DX: E11.649 Type 2 diabetes mellitus with hypoglycemia without coma (principal)
CPT/HCPCS: 36415; 84681; 86341

== ENCOUNTER 2023-11-01 10:39 | Outpatient (AMB) | payer OTHER, SELFPAY ==
--- NOTE | 2023-11-01 10:42 | A.OFFVIS_ITS ---
Vital Signs 11/01/23 10:46 Height 5 ft 5 in Weight 116 lb 13.52 oz BMI 19.4 BP 120/78 Blood Pressure Location Rt brachial Position Sitting Pulse 88 Pulse Source Pulse Oximeter Intake Visit Reasons: DM Intake Note: Patient presents today for [facility] follow up visit. Last Diabetic Eye exam: Over 5 years ago Last Podiatry Visit: Does not see a Foot Caster Random Glucose: 196 mg/dl Most Recent HgA1c: 9.2%, 10/04/2023 Pain Management Physician Required: Yes Pain Management Physician Language: Alcohol And Drug Counselor Services: Pain Management Physician Present (VIA VIDEO CALL) Pain Management Physician Name: LIZ #[id number] Accompanied by: Self / Same As Patient Allergies No Known Allergies Allergy (Verified 10/04/23 09:51) Medication List - Last Reconciled 11/01/23 by Kavya Reardon PA-C acetaminophen (Acetaminophen Pain Relief) 500 mg PO ONCE PRN albuterol sulfate 90 mcg/actuation (Ventolin HFA) 2 puffs inhalation Q4H PRN aspirin (Adult Low Dose Aspirin) 81 mg PO DAILY atorvastatin (Lipitor) 40 mg PO DAILY blood sugar diagnostic As directed blood sugar diagnostic (OneTouch Ultra Test strips) As directed blood-glucose meter (OneTouch Ultra2 Meter) As directed budesonide (Pulmicort) 1 mg inhalation DAILY PRN buprenorphine-naloxone 8-2 mg (Suboxone) 10 mg sublingual BID clonazepam (Klonopin) 2 mg PO BEDTIME clonazepam (Klonopin) 1 mg PO BID PRN docusate sodium (DOK) 100 mg PO DAILY PRN flash glucose scanning reader (AffibodyStyle Kasey 2 [place]) As directed checks 8X/day flash glucose sensor (FreeStyle Kasey 2 Sensor kit) USE DIRECTED TO TEST BLOOD SUGAR 8 TIMES DAILY fluticasone furoate-vilanterol 100-25 mcg/dose (Breo Ellipta) 1 ea inhalation DAILY glucose (Dex4 Glucose) 16 grams (4 x 4 gram) PO Q15M PRN ibuprofen (IBU) 800 mg PO TID PRN insulin aspart U-100 (Novolog FlexPen U-100 Insulin aspart) inject sq 6 units with breakfast, 8 units with lunch, 4 units with supper. insulin degludec (Tresiba FlexTouch U-100 insulin) 8 units (0.08 mL) subcut DAILY lancets As directed lancing device with lancets ([employer] Delica Plus Lancing Device kit) As directed lidocaine 5% (Lidoderm) 0 patches topical DAILY PRN montelukast (Singulair) 10 mg PO DAILY naloxone 4 mg/actuation (Narcan) 0 sprays intranasal NEEDED PRN nicotine (Nicoderm CQ) 1 patch transdermal DAILY pen needle, diabetic As directed quetiapine (Seroquel) 50 mg PO BID ramelteon (Rozerem) 8 mg PO BEDTIME sennosides (senna) 8.6 mg PO DAILY silver sulfadiazine 1% (Silvadene) 1 appl topical DAILY HPI HPI DM: Details: Patient is a 58 yo male with DM type 2 diagnosed in 1988 when he was hospitalized with HHS/DKA who presents for management of diabetes. He last saw me about a month ago. I did order labs as he has a strong fam hx of type 1 dm. His c peptide is low. Antibodies are negative Endo: DM- Last a1c was 9.1. He is on metformin 1000 mg BID tresiba 8 units, NovoLog 6 units with breakfast, 8 units with lunch and 4 units with supper. States he recently adjusted this and it seems to be working better. -He had history of pancreatitis while on Januvia. Blood glucose monitoring: In the past 2 weeks CGM is active 92% an average blood glucose of 203 , GMI 8.1 %. Blood glucose in target range of 46%. Blood glucose low from 54-69 1 %. Blood glucose very low less than 54 0%. Blood glucose above goal 53 %. Pattern shows post-meal hyperglycemia and some morning lows. Hypoglycemia: Reports symptoms of fatigue, shakiness, sweating. States that he corrects it with orange juice. 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 pylori infection GERD (gastroesophageal reflux disease) Abdominal wall bulge Vitamin D deficiency HLD (hyperlipidemia) HTN (hypertension) T2DM (type 2 diabetes mellitus) Surgical History History of surgery Hx of hernia repair Hx of prior ablation treatment Hx of partial nephrectomy Hx of colonoscopy History of esophagogastroduodenoscopy (EGD) Family History Father Liver cancer Diabetes Alcohol abuse Mother Diabetes Breast cancer Social History Household Members: None Patient Tobacco Use Status: Current everyday Tobacco user Tobacco use type: Cigarette Cigarette Packs Per Day: 0.5 Cigarettes Per Day: 10 Physical Exam Vital Signs: Last Vital Signs Pulse 88 11/01/23 10:46 BP 120/78 11/01/23 10:46 BMI result Body Mass Index 19.4 Const Orientation/consciousness: patient oriented x3 Neck Neck: Yes no lymphadenopathy Thyroid: Thyroid normal Carotids: no bruits Resp Auscultation: clear to auscultation bilaterally Cardio Rate: regular rate Rhythm: regular rhythm Heart sounds: S1 normal heart sound present and S2 normal heart sound present Peripheral pulses: dorsalis pedis present Neuro General: patient oriented x3, gait normal and no focal motor deficits Extrem Other: Monofilament sensation intact bilaterally. Vibratory sensation intact bilaterally. Skin intact. General: Yes normal to inspection Results Reviewed Results Reviewed: Laboratory Tests 08/23/23 10/04/23 10/04/23 08:57 09:53 09:56 Sodium 141 Potassium 4.2 Chloride 105 Carbon Dioxide 27 Anion Gap 13 BUN 18 H Creatinine 0.78 Estimated GFR > 60 Glucose (Clinic) 196 H Hgb A1c (Clinic) 9.2 H C-Peptide Islet Cell Ab Screen Islet Cell Ab Titer CARLOZ Antibody 10/16/23 10:15 Sodium Potassium Chloride Carbon Dioxide Anion Gap BUN Creatinine Estimated GFR Glucose (Clinic) Hgb A1c (Clinic) C-Peptide 0.50 L Islet Cell Ab Screen NEGATIVE Islet Cell Ab Titer TNP CARLOZ Antibody <5 Assessment & Plan Assessment & Plan (1) Type 1.5 diabetes, managed as type 1: Code(s): E13.9 - Other specified diabetes mellitus without complications Category: Medical Plan: will stop the metformin. will increase the Tresiba to 10 units. He has a short- term follow-up in a couple weeks to be reassessed. He states that he has started to incorporate healthier eating habits over the last couple weeks as well. He will up sooner if needed. Signs and symptoms hyper and hypoglycemia that would require emergent medical treatment were discussed. Patient understands and agrees with this plan Medications: Changed From insulin degludec (Tresiba FlexTouch U-100 insulin) 8 units (0.08 mL) subcut DAILY 15 mL 3RF To insulin degludec (Tresiba FlexTouch U-100 insulin) 10 units (0.1 mL) subcut DAILY 15 mL 3RF Coding Level of Care Code Est Pt Level 4 (78717) Diagnoses Type 1.5 diabetes, managed as type 1 E13.9
[2023-11-01 10:46] VITALS: BP 120/78; PULSE 88; BMI 19.4
[2023-11-01 10:54] LABS: Glucose, Whole Blood 122 mg/dL (60-115)
== END 2023-11-01 11:11 | disposition home or self-care (01) ==
PROVIDERS: PCP Internal Medicine Geriatric Medicine; Visit Provider Physician Assistant
DX: E13.9 Other specified diabetes mellitus without complications (principal)
CPT/HCPCS: 99214

== ENCOUNTER → 2023-11-01 10:39 | Outpatient (BNVA) | payer OTHER, SELFPAY | PROVIDERS: PCP Internal Medicine Geriatric Medicine; Visit Provider Physician Assistant | DX: E13.9 Other specified diabetes mellitus without complications (principal) | CPT/HCPCS: 82947; 99212 ==

== ENCOUNTER 2023-11-18 09:20 | Outpatient (AMB) | payer OTHER, SELFPAY ==
--- NOTE | 2023-11-18 09:47 | A.OFFVIS_ITS ---
Intake Intake Visit Reasons: 60 min/CONFIRMED Regional Climate Change Analyst Required: No Accompanied by: Self / Same As Patient Allergies No Known Allergies Allergy (Verified 10/04/23 09:51) HPI Comprehensive Diabetes Asmnt Most Recent Diabetes Results: Hemoglobin A1c 8.6 % 04/29/19 Microalb/Creat Ratio 28.8 ug/mg cr (<30) 05/14/23 Cholesterol 189 mg/dL (<200) 05/14/23 HDL Cholesterol 92 mg/dL (>40) 05/14/23 Triglycerides 76 mg/dL (<150) 05/14/23 Creatinine 0.78 mg/dL (0.5-1.4) 08/23/23 Blood Urea Nitrogen 18 mg/dL (9-16) H 08/23/23 Sodium 141 mmol/L (135-145) 08/23/23 Potassium 4.2 mmol/L (3.3-5.1) 08/23/23 Chloride 105 mmol/L (96-108) 08/23/23 Carbon Dioxide 27 mmol/L (22-29) 08/23/23 Calcium 9.9 mg/dL (8.4-10.2) 08/23/23 AST 23 U/L (5-37) 03/29/23 ALT 17 U/L (0-40) 03/29/23 Total Protein 7.6 g/dL (6.5-8.0) 03/29/23 Albumin 4.6 g/dL (3.5-5.0) 03/29/23 PFSH Medical History (Updated 11/01/23 @ 10:52 by Kavya Reardon PA-C) Anxiety Tubular adenoma of colon History of pancreatitis Seborrheic dermatitis Mood disorder 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 pylori infection GERD (gastroesophageal reflux disease) Abdominal wall bulge Vitamin D deficiency HLD (hyperlipidemia) HTN (hypertension) T2DM (type 2 diabetes mellitus) Surgical History History of surgery Hx of hernia repair Hx of prior ablation treatment Hx of partial nephrectomy Hx of colonoscopy History of esophagogastroduodenoscopy (EGD) Family History Father Liver cancer Diabetes Alcohol abuse Mother Diabetes Breast cancer Social History Household Members: None Patient Tobacco Use Status: Current everyday Tobacco user Tobacco use type: Cigarette Cigarette Packs Per Day: 0.5 Cigarettes Per Day: 10 Assessment & Plan Assessment & Plan (1) Type 1.5 diabetes, managed as type 1: Code(s): E13.9 - Other specified diabetes mellitus without complications Plan: Personal Continuous Glucose Monitor: Patients CGM information reviewed Reviewed patient's sensor data: Hypoglycemia: ? 0% Hyperglycemia:? 52% Time in Range:? 48% Average glucose for the last 2 weeks? 187 mg/dL At last visit with PA patient was prescribed Tresiba 10 units daily. However, patient continued with Lantus 8 units daily, and started Tresiba 4 units before breakfast, 3 units at lunch, 4 units at supper Patient reported he had stopped NovoLog. Reviewed with patient insulin action of Tresiba and Lantus, explaining that Tresiba was meant to be used instead of the Lantus not with the Lantus. Instructed patient to stop Lantus 8 units daily Continue Tresiba 10 units daily Restart NovoLog 4 units before breakfast, 3 units at lunch, increase NovoLog to 6 units before supper Reviewed with patient if he is having low blood sugar to treat with rule of 15s Patient able to insert sensor independently at home without issue.? Portions of this note were created using voice recognition software, please excuse any words or phrases that may have been misinterpreted. Patient Instructions: Stop Lantus 8 units Continue Tresiba 10 units daily Restart Novolog 4 units before breakfast, 3 units for lunch, and 6 units If you are having low glucose levels after supper reduce Novolog to 4 units follow up with Diabetes education in 2 months Coding Level of Care Code Est Pt Level 1 (86740) Diagnoses Type 1.5 diabetes, managed as type 1 E13.9
== END 2023-11-18 09:55 | disposition home or self-care (01) ==
PROVIDERS: PCP Internal Medicine Geriatric Medicine; Visit Provider Registered Nurse Diabetes Educator
DX: E13.9 Other specified diabetes mellitus without complications (principal)

== ENCOUNTER → 2023-11-18 09:20 | Outpatient (BNVA) | payer OTHER, SELFPAY | PROVIDERS: PCP Internal Medicine Geriatric Medicine; Visit Provider Registered Nurse Diabetes Educator | DX: E13.9 Other specified diabetes mellitus without complications (principal) | CPT/HCPCS: 99211 ==

== ENCOUNTER 2023-12-20 11:36 | Outpatient (AMB) | payer OTHER, SELFPAY ==
--- NOTE | 2023-12-20 11:07 | A.OFFVIS_ITS ---
Vital Signs 12/20/23 11:39 Height 5 ft 5 in Weight 127 lb 13.89 oz BMI 21.3 BP 118/80 Blood Pressure Location Rt brachial Position Sitting Pulse 93 Pulse Source Pulse Oximeter Intake Visit Reasons: dm1.5 f/u with Nichole/LVM Intake Note: Patient presents today for D2MT follow up visit. Last Diabetic Eye exam: Over 5 years ago Last Podiatry Visit: Does not see a Quarry Supervisor Most Recent HgA1c: 9.2%, 10/04/2023 Random Glucose: 199 mg/dL, Today Feather Edger Required: Yes Feather Edger Language: Integration Solution Architect Services: Feather Edger Present (VIA VIDEO CALL) Feather Edger Name: JAYSON Thomas Information Interpreted: non-clinical & clinical Accompanied by: Self / Same As Patient Allergies No Known Allergies Allergy (Verified 10/04/23 09:51) HPI Comments Details: Patient is a 58 yo male with DM type 2 diagnosed in 1988 when he was hospitalized with HHS/DKA who presents for management of diabetes. He was last seen by Kellee VÁSQUEZ 6 weeks ago at which time Lantus was changed to Tresiba. The patient followed up with music educator 4 weeks ago and had been taking his insulin incorrectly. Hemoglobin A1c 12/20/2023 % 10/04/2023 9.2%. C-peptide 10/2023 0.5 CARLOZ <5 negative Islet cell AB screen The patient has h/o Pancreatitis after being kicked in the stomach by a horse, had pancreatitis while on Januvia per history Diabetes medications: Tresiba 8 units NovoLog Breakfast 4 units Lunch 3 units Supper 6 units Freestyle rhett sensor 2average glucose: 175 14 day glucose sensor report reviewed Glucose Management indicator 7.5 % TIme in ranges: Ten % very high (above 250) 35 % high (181-250) 53 % in range (70-180] 1 % low (69-55) 1 % very low (below 54) [ ] Glucose variability [ ] (target <36%) Interpretation of CGMS [ ] Last eye exam: none recent will schedule Has neuropathy: Symptoms reported: + numbness, tingling in lower extremities. Denies cramping in lower extremities Has nephropathy: Followed by Nephrology. Not on Som/Arb 08/23/2023 eGFR>60 05/14/2023: Microalbumin 45 Has HLD; on statin 05/2023 LDL 82 triglycerides 76 Hypoglycemia: Rare Reports symptoms of fatigue, shakiness, sweating when this occurs Carries glucose gel at all times Hyperglycemia: +urinary frequency, +nocturia, +polydypsia Exercise: 1/2 - 1 hour a day. 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 pylori infection GERD (gastroesophageal reflux disease) Abdominal wall bulge Vitamin D deficiency HLD (hyperlipidemia) HTN (hypertension) T2DM (type 2 diabetes mellitus) Surgical History History of surgery Hx of hernia repair Hx of prior ablation treatment Hx of partial nephrectomy Hx of colonoscopy History of esophagogastroduodenoscopy (EGD) Family History Father Liver cancer Diabetes Alcohol abuse Mother Diabetes Breast cancer Social History Household Members: None Patient Tobacco Use Status: Current everyday Tobacco user Tobacco use type: Cigarette Cigarette Packs Per Day: 0.5 Cigarettes Per Day: 10 Physical Exam Vital Signs: Last Vital Signs Pulse 93 12/20/23 11:39 BP 118/80 12/20/23 11:39 BMI result Body Mass Index 21.3 Const Other: Absence of Cushingoid features. Absence of acromegalic features. Neck exam reveals nl size thyroid about 15 gms. No thyroid nodules palpable. No carotid bruits present. Lungs CTA. Heart S1 S2, Reg R/R. No M/R G. Skin exam reveals absence of vitiligo or acanthosis nigricans. No edema Visual exam of foot performed. No ulcerations or open lesions. No inter digit maceration or fissuring. No onychomycosis, no callouses. Sensation intact to monofilament exam. Vibratory sensation is normal with 128 Hz tuning fork. Results Reviewed Results Reviewed: Laboratory Last Values Glucose (Clinic) 199 mg/dL (60-115) H 12/20/23 11:41 Assessment & Plan Assessment & Plan (1) Type 1.5 diabetes, managed as type 1: Code(s): E13.9 - Other specified diabetes mellitus without complications Category: Medical Plan: 58-year-old type 1.5 diabetic being treated as a type 1 with history of nephropathy and prior history of pancreatitis with improving glycemic control. Sensor download shows GMI 7.5% (equivalent to A1C for past two weeks) Increase Tresiba to 10 units. The patient had an opportunity to ask questions regarding treatment plan. The patient expressed understanding and agreement with the above treatment plan. The patient is aware they should contact our office by phone for worsening glucose readings or for any low blood sugars which may warrant a change in diabetes medication. Compliance is encouraged with medications and any followup testing/consults which may have been ordered. Patient Instructions: The patient was counseled to achieve a target A1C of 7% (154 avg). Fasting blood sugars should be 90-130 in the morning and less than 180 two hours after meals. Reviewed the relationship between poor diabetic control and the development of complications. The patient was counseled to always carry a source of sugar and on the rule of 15's: Take 3 glucose tablets and repeat again in 15 minutes if blood sugar is not in normal range. Continue to repeat every 15 minutes until blood sugar is normal. Coding Level of Care Code Est Pt Level 4 (79779) Diagnoses Type 1.5 diabetes, managed as type 1 E13.9 Time Spent (min) 40 Comment Time spent reviewing labs/provider notes, glucose,sensor reports, face to face, chart doc
[2023-12-20 11:39] VITALS: BP 118/80; PULSE 93; BMI 21.3
[2023-12-20 11:47] LABS: Glucose, Whole Blood 199 mg/dL (60-115)
== END 2023-12-20 12:10 | disposition home or self-care (01) ==
PROVIDERS: PCP Internal Medicine Geriatric Medicine; Visit Provider Nurse Practitioner Adult Health
DX: E13.9 Other specified diabetes mellitus without complications (principal)
CPT/HCPCS: 99214

== ENCOUNTER → 2023-12-20 11:36 | Outpatient (BNVA) | payer OTHER, SELFPAY | PROVIDERS: PCP Internal Medicine Geriatric Medicine; Visit Provider Nurse Practitioner Adult Health | DX: E10.649 Type 1 diabetes mellitus with hypoglycemia without coma (principal); E10.21 Type 1 diabetes mellitus with diabetic nephropathy; Z79.4 Long term (current) use of insulin | CPT/HCPCS: 82947; 99212 ==

== ENCOUNTER 2024-02-06 09:25 | Outpatient (AMB) | payer OTHER, SELFPAY ==
--- NOTE | 2024-02-06 09:37 | A.OFFVIS_ITS ---
Intake Intake Visit Reasons: DM-confirmed Hydro Generation Manager Required: No Accompanied by: Self / Same As Patient Allergies No Known Allergies Allergy (Verified 10/04/23 09:51) HPI Comprehensive Diabetes Asmnt Most Recent Diabetes Results: Hemoglobin A1c 8.6 % 04/29/19 Microalb/Creat Ratio 28.8 ug/mg cr (<30) 05/14/23 Cholesterol 189 mg/dL (<200) 05/14/23 HDL Cholesterol 92 mg/dL (>40) 05/14/23 Triglycerides 76 mg/dL (<150) 05/14/23 Creatinine 0.78 mg/dL (0.5-1.4) 08/23/23 Blood Urea Nitrogen 18 mg/dL (9-16) H 08/23/23 Sodium 141 mmol/L (135-145) 08/23/23 Potassium 4.2 mmol/L (3.3-5.1) 08/23/23 Chloride 105 mmol/L (96-108) 08/23/23 Carbon Dioxide 27 mmol/L (22-29) 08/23/23 Calcium 9.9 mg/dL (8.4-10.2) 08/23/23 AST 23 U/L (5-37) 03/29/23 ALT 17 U/L (0-40) 03/29/23 Total Protein 7.6 g/dL (6.5-8.0) 03/29/23 Albumin 4.6 g/dL (3.5-5.0) 03/29/23 PFSH Medical History (Updated 11/01/23 @ 10:52 by Kavya Reardon PA-C) Anxiety Tubular adenoma of colon History of pancreatitis Seborrheic dermatitis Mood disorder 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 pylori infection GERD (gastroesophageal reflux disease) Abdominal wall bulge Vitamin D deficiency HLD (hyperlipidemia) HTN (hypertension) T2DM (type 2 diabetes mellitus) Surgical History History of surgery Hx of hernia repair Hx of prior ablation treatment Hx of partial nephrectomy Hx of colonoscopy History of esophagogastroduodenoscopy (EGD) Family History Father Liver cancer Diabetes Alcohol abuse Mother Diabetes Breast cancer Social History Household Members: None Patient Tobacco Use Status: Current everyday Tobacco user Tobacco use type: Cigarette Cigarette Packs Per Day: 0.5 Cigarettes Per Day: 10 Assessment & Plan Assessment & Plan (1) Type 1.5 diabetes, managed as type 1: Code(s): E13.9 - Other specified diabetes mellitus without complications Plan: Personal Continuous Glucose Monitor: Patients CGM information reviewed, Pt uses OpTiere 2 sensor, with reader Today's visit patient only had 2-1/2 days' worth of sensor data Sensor data: Hypoglycemia: ?1% Hyperglycemia:? 57% Time in Range:? 42% Average glucose for the last 2 days 194 mg/dL Patient's last A1c in October 2023 9.4%, patient will be due for next A1c at visit with Dr. Ramirez on 02/12/2024 Reviewed with patient how to treat hypoglycemia with rule of 15s Patient given printed copy of current insulin plan Patient is taking Tresiba 10 units daily NovoLog: Breakfast 4 units Lunch 3 units Supper 6 units Hypoglycemia and Hyperglycemia * Signs and symptoms? * Causes?? * Treatment? * Preventing hypoglycemia? * When to seek medical attention Target Goals: * Blood glucose targets and how you feel when your blood glucose is in and out of your target ranges. * Monitoring and knowing your A1C. * What can make blood glucose go up and down and preventing high and low blood glucose. * Review of blood sugar targets in expected goal range and outside of expected goal range. * Problem solving and preventing hyper/hypoglycemia. * Sick day management of diabetes. * Using blood sugar results in decision making process in managing diabetes. ?Patient was receptive to information provided and participated in the discussion. Asked?appropriate questions and demonstrated good understanding of the topics discussed.? ? Reviewed how to interpret trend arrows Reminded patient that to check finger sticks if symptoms do not match sensor reading. Discussed lag time between finger stick and sensor data.? Patient able to insert sensor independently at home without issue.? Portions of this note were created using voice recognition software, please excuse any words or phrases that may have been misinterpreted. Patient Instructions: Follow-up with steffen house supervisor in 3 months Coding Level of Care Code Est Pt Level 1 (61100) Diagnoses Type 1.5 diabetes, managed as type 1 E13.9
== END 2024-02-06 09:45 | disposition home or self-care (01) ==
PROVIDERS: PCP Internal Medicine Geriatric Medicine; Visit Provider Registered Nurse Diabetes Educator
DX: E13.9 Other specified diabetes mellitus without complications (principal)

== ENCOUNTER → 2024-02-06 09:25 | Outpatient (BNVA) | payer OTHER, SELFPAY | PROVIDERS: PCP Internal Medicine Geriatric Medicine; Visit Provider Registered Nurse Diabetes Educator | DX: E13.9 Other specified diabetes mellitus without complications (principal); E13.649 Other specified diabetes mellitus with hypoglycemia without coma; Z79.4 Long term (current) use of insulin | CPT/HCPCS: 99211 ==

== ENCOUNTER 2024-02-18 12:45 | Outpatient (AMB) | payer OTHER, SELFPAY ==
--- NOTE | 2024-02-18 12:50 | MHC.OFFVIS ---
Vital Signs 02/18/24 13:03 Height 5 ft 5 in Weight 119 lb 7.849 oz BMI 19.9 BP 116/70 Blood Pressure Location Lt brachial Position Sitting Pulse 94 Pulse Source Pulse Oximeter Intake Visit Reasons: Type 1 DM/CONF Intake Note: Patient present today to follow up on Diabetes Mellitus. Last Diabetic Eye exam: Over 5 years Last Podiatry Visit: Does not see a Chief Pharmacist Random Glucose: 132 mg/dl HgA1C: 8.4% 02/18/24 Gutter Hanger Required: Yes Gutter Hanger Language: Hematology Technologist Services: Gutter Hanger Present Gutter Hanger Name: Tierra Information Interpreted: non-clinical & clinical Accompanied by: Self / Same As Patient Allergies No Known Allergies Allergy (Verified 02/18/24 13:04) HPI Comments Details: Patient is a 58 yo male with DM type 2 diagnosed in 1988 when he was hospitalized with HHS/DKA who presents for management of diabetes. Past medical history: Diabetes type 2, hypertension, hyperlipidemia, vitamin-D deficiency Pancreatitis after being kicked in the stomach by horse Micro and macrovascular complications: Diabetes medications: Tresiba 10 units, NovoLog 4-3-2 units ac meals. Does report uses extra dose at night if bg is elevated. He had history of pancreatitis while on Januvia Blood glucose monitoring: Sensor download from 02/05/24- 4shows the sensor was actually 85% of the time. Average glucose is 176 with GMI of 7.5 with variability of 29.8 %. 51% range with 48% hyperglycemia and 1% hypoglycemia. Pattern shows persistent elevation of blood sugar throughout the day with small spikes postprandially Symptoms reported: + numbness, tingling in lower extremities. Denies cramping in lower extremities Hypoglycemia: Rare Reports symptoms of fatigue, shakiness, sweating. Carries glucose gel at all times Hyperglycemia: +urinary frequency, +nocturia, +polydypsia Exercise: 1/2 - 1 hour a day. [employer] Officer : meghan. Chief Pharmacist: denies Dental exam: has upcoming appointment, Ophthalmology evaluation: has appt next mo Other specialists: psychiatrist, therapist, nephrology Laboratory Tests 04/11/20 04/12/20 04/12/20 11:49 14:32 14:32 Hgb A1c (Clinic) 10.4 H LDL Cholesterol Direct 61 25-OH Vitamin D Total 28.7 Microalb/Creat Ratio Islet Cell Ab Screen NEGATIVE Islet Cell Ab Titer TNP Anti-IA2 Antibody CARLOZ Antibody <5 04/12/20 04/12/20 14:32 14:32 Hgb A1c (Clinic) LDL Cholesterol Direct 25-OH Vitamin D Total Microalb/Creat Ratio 41.7 Islet Cell Ab Screen Islet Cell Ab Titer Anti-IA2 Antibody <5.4 CARLOZ Antibody PFSH Medical History (Updated 11/01/23 @ 10:52 by Kavya Reardon PA-C) Anxiety Tubular adenoma of colon History of pancreatitis Seborrheic dermatitis Mood disorder 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 pylori infection GERD (gastroesophageal reflux disease) Abdominal wall bulge Vitamin D deficiency HLD (hyperlipidemia) HTN (hypertension) T2DM (type 2 diabetes mellitus) Surgical History History of surgery Hx of hernia repair Hx of prior ablation treatment Hx of partial nephrectomy Hx of colonoscopy History of esophagogastroduodenoscopy (EGD) Family History Father Liver cancer Diabetes Alcohol abuse Mother Diabetes Breast cancer Social History Household Members: None Patient Tobacco Use Status: Current everyday Tobacco user Tobacco use type: Cigarette Cigarette Packs Per Day: 0.5 Cigarettes Per Day: 10 Physical Exam Const Other: Absence of Cushingoid features. Absence of acromegalic features. Neck exam reveals nl size thyroid about 15 gms. No thyroid nodules palpable. No carotid bruits present. Lungs CTA. Heart S1 S2, Reg R/R. No M/R G. Skin exam reveals absence of vitiligo or acanthosis nigricans. No edema Visual exam of foot performed. No ulcerations or open lesions. No inter digit maceration or fissuring. No onychomycosis, no callouses. Sensation intact to monofilament exam. Vibratory sensation is normal with 128 Hz tuning fork. Results AMB Hemoglobin A1c AMB Hemoglobin A1c 8.4 % Last Edit by JAYSON Phan on 02/18/24 13:29 Assessment & Plan Assessment & Plan (1) T2DM (type 2 diabetes mellitus): Code(s): E11.9 - Type 2 diabetes mellitus without complications Category: Medical Qualifiers: Diabetes mellitus skilled nursing insulin use: with ferry terminal agent use Diabetes mellitus complication status: with hyperglycemia Qualified Code(s): E11.65 - Type 2 diabetes mellitus with hyperglycemia; Z79.4 - shelter (current) use of insulin Plan: This is a 58-year-old male with history of type 2 diabetes being treated with basal-bolus insulin with fair glycemic control and no known microvascular or macrovascular complications. He appears to be very thin most likely is insulin deficient Plan is to increase Tresiba to 14 units and Humalog pre-dinner to 4 units . I told him report any hypoglycemia. He will follow up with Nichole Wilson NP in 6 wks Coding Level of Care Code Est Pt Level 4 (93769) Diagnoses Type 2 diabetes mellitus with hyperglycemia, with long-term current use of insulin E11.65; Z79.4 Diabetes mellitus ferry terminal agent insulin use: with ferry terminal agent use Diabetes mellitus complication status: with hyperglycemia
[2024-02-18 13:03] VITALS: BP 116/70; PULSE 94; BMI 19.9
[2024-02-18 13:15] LABS: Glucose, Whole Blood 132 mg/dL (60-115)
== END 2024-02-18 13:26 | disposition home or self-care (01) ==
PROVIDERS: PCP Internal Medicine Geriatric Medicine; Visit Provider Internal Medicine Endocrinology, Diabetes & Metabolism
DX: E11.65 Type 2 diabetes mellitus with hyperglycemia (principal); Z79.4 Long term (current) use of insulin; E13.9 Other specified diabetes mellitus without complications
CPT/HCPCS: 99214

== ENCOUNTER → 2024-02-18 12:45 | Outpatient (BNVA) | payer OTHER, SELFPAY | PROVIDERS: PCP Internal Medicine Geriatric Medicine; Visit Provider Internal Medicine Endocrinology, Diabetes & Metabolism | DX: E11.65 Type 2 diabetes mellitus with hyperglycemia (principal); Z79.4 Long term (current) use of insulin | CPT/HCPCS: 82947; 83036; 99212 ==

== ENCOUNTER 2024-03-29 10:57 | Emergency (ER) | payer OTHER, SELFPAY ==
--- NOTE | ~2024-03-29 | XR_ITS ---
CLINICAL HISTORY: cough, shortness of breath 1 view chest x-ray Comparison: CR/SR - XR CHEST 2V - 12/19/21 14:[address]/[place] [id number] - 02/26/19 13:51 EST Findings: Overinflation and interstitial prominence /peribronchial thickening as on priors. No consolidation. No overt pulmonary edema. No effusions or pneumothorax. Stable left lower lung granuloma. Normal heart size and mediastinal contour. Trachea is midline. Bones intact. Upper abdomen unremarkable. Impression: Overinflation and similar peribronchial cuffing. No consolidation. This document has been electronically signed by: Aubrey Low MD on 03/29/2024 12:43:35
[2024-03-29 11:11] VITALS: BP 115/76; PULSE 109; RESP 18; TEMP 37; O2SAT 93; BMI 19.9
--- NOTE | 2024-03-29 11:12 | ED.SOB ---
HPI - SOB/Dyspnea General Chief Complaint: Dyspnea Stated Complaint: DIFF BREATHING Time Seen by Provider: 03/29/24 11:33 Source: patient and old records reviewed Mode of arrival: ambulatory Limitations: no limitations History of Present Illness ED Provider: DR. Dent HPI Narrative: 58-year-old male came in to the emergency department for evaluation of 3 weeks of chest pain, shortness of breath, and productive cough, patient stated that the pain is little bit more than usual today feels like pressure on the chest (somebody sitting on my chest), no radiation, on arrival to the emergency department patient had a screening EKG for chest pain which suspected for ST elevation in the inferior leads, patient declined using any recreational drugs patient is on Suboxone, patient with known history of hypertension and poorly controlled diabetes type 1. ST-elevation [place] protocol was activated. Related Data Home Medications ?Medication ?Instructions ?Recorded ?Confirmed aspirin 81 mg tablet,delayed 81 mg PO DAILY 01/25/20 11/01/23 release (Adult Low Dose Aspirin) blood sugar diagnostic #10 ea 01/25/20 11/01/23 budesonide 1 mg/2 mL suspension 1 mg inhalation DAILY PRN 01/25/20 11/01/23 for nebulization (Pulmicort) Shortness Of Breath Or Wheezing docusate sodium 100 mg capsule 100 mg PO DAILY PRN Constipation 01/25/20 11/01/23 (DOK) lancets 33 gauge #100 ea 01/25/20 11/01/23 montelukast 10 mg tablet 10 mg PO DAILY 01/25/20 11/01/23 (Singulair) nicotine 7 mg/24 hr daily 1 patch transdermal DAILY 01/25/20 11/01/23 transdermal patch (Nicoderm CQ) pen needle, diabetic 32 gauge x #50 ea 01/25/20 11/01/23 sennosides 8.6 mg capsule (senna) 8.6 mg PO DAILY 01/25/20 11/01/23 albuterol sulfate 90 mcg/actuation 2 puff inhalation Q4H PRN 07/07/20 11/01/23 aerosol inhaler (Ventolin HFA) shortness of breath or wheeze clonazepam 2 mg tablet (Klonopin) 2 mg PO BEDTIME 07/07/20 11/01/23 ramelteon 8 mg tablet (Rozerem) 8 mg PO BEDTIME 07/07/20 11/01/23 acetaminophen 500 mg tablet 500 mg PO ONCE PRN fever or pain 10/12/20 11/01/23 (Acetaminophen Pain Relief) buprenorphine 8 mg-naloxone 2 mg 10 mg sublingual BID 11/28/20 11/01/23 sublingual film (Suboxone) clonazepam 1 mg tablet (Klonopin) 1 mg PO BID PRN Anxiety 10/09/21 11/01/23 fluticasone furoate 100 1 ea inhalation DAILY 10/09/21 11/01/23 mcg-vilanterol 25 mcg/dose inhalation powder (Breo Ellipta) lidocaine 5 % topical patch 0 patch topical DAILY PRN Pain 06/14/22 11/01/23 (Lidoderm) naloxone 4 mg/actuation nasal 0 spray intranasal NEEDED PRN 06/14/22 11/01/23 spray (Narcan) Opioid Overdose blood sugar diagnostic ([employer] [place] 09/14/22 11/01/23 Ultra Test strips) blood-glucose meter ([employer] 09/14/22 11/01/23 Ultra2 Meter) lancing device with lancets kit 09/14/22 11/01/23 ([employer] Delica Plus Lancing Device kit) atorvastatin 40 mg tablet (Lipitor) 40 mg PO DAILY 01/16/23 11/01/23 ibuprofen 800 mg tablet (IBU) 800 mg PO TID PRN pain 01/16/23 11/01/23 quetiapine 50 mg tablet (Seroquel) 50 mg PO BID 01/16/23 11/01/23 buspirone 15 mg tablet 15 mg PO BID 02/18/24 Previous Rx's ?Medication ?Instructions ?Recorded flash glucose scanning reader #1 ea 12/18/21 (FreeStyle [place]y 2 [place]) silver sulfadiazine 1 % topical 1 appl topical DAILY #20 grams 10/18/22 cream (Silvadene) flash glucose sensor (FreeStyle #2 kits 03/01/23 Kasey 2 Sensor kit) glucose 4 gram chewable tablet 16 g (4 x 4 gram) PO Q15M PRN 10/04/23 (Dex4 Glucose) hypoglycemia #100 tabs insulin degludec 100 unit/mL (3 10 unit (0.1 mL) subcut DAILY #15 08/30/24 mL) subcutaneous pen (Tresiba mL FlexTouch U-100 insulin) insulin aspart U-100 100 unit/mL See Rx Instructions subcut TID #15 03/02/24 (3 mL) subcutaneous pen (Novolog mL FlexPen U-100 Insulin aspart) Allergies Allergy/AdvReac Type Severity Reaction Status Date / Time No Known Allergies Allergy Verified 03/29/24 11:15 Review of Systems Review of Systems: All other systems are reviewed and are negative Constitutional: Reports as per HPI and Reports no additional constitutional complaints Eyes: Reports as per HPI and Reports no additional eye complaints Reports system reviewed and no additional complaints, except as documented Cardiovascular: Reports as per HPI and Reports no additional cardiovascular complaints Respiratory: Reports as per HPI and Reports no additional respiratory complaints Gastrointestinal: Reports as per HPI and Reports no additional gastrointestinal complaints Genitourinary: Reports no additional female genitourinary complaints Musculoskeletal: Reports no additional musculoskeletal complaints Skin/Breast: Reports system reviewed and no additional complaints, except as docu Psychiatric: Reports no additional psychiatric complaints Endocrine: Reports no additional endocrine complaints Hematologic/Lymphatic: Reports no additional hematologic/lymphatic complaints Allergic/Immunologic: Reports no additional allergic/immunologic complaints Reports system reviewed and no additional complaints, except as documented and Reports Abnormal speech present PMFSH Past Medical History Medical History Anxiety Tubular adenoma of colon History of pancreatitis Seborrheic dermatitis Mood disorder 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 pylori infection GERD (gastroesophageal reflux disease) Abdominal wall bulge Vitamin D deficiency HLD (hyperlipidemia) HTN (hypertension) T2DM (type 2 diabetes mellitus) Surgical History History of surgery Hx of hernia repair Hx of prior ablation treatment Hx of partial nephrectomy Hx of colonoscopy History of esophagogastroduodenoscopy (EGD) Family History Family History Father Liver cancer Diabetes Alcohol abuse Mother Diabetes Breast cancer Social History Social History Household Members: None Unable to assess alcohol history related to: Unknown Patient Tobacco Use Status: Current everyday Tobacco user Tobacco use type: Cigarette Cigarette Packs Per Day: 0.5 Cigarettes Per Day: 10 Smoked in Last 30 Days: No Use of substances other than those prescribed or required for medical reasons: No Advance Directives: No Advance Directives Information Provided: Yes Do you have a plan to hurt others: No Plan Physical Exam Vital Signs: Vital Signs: Last Vital Signs Temp 99 F 03/29/24 12:06 Pulse 83 03/29/24 12:06 Resp 18 03/29/24 12:06 BP 132/83 03/29/24 12:06 Pulse Ox 96 03/29/24 12:06 O2 Del Method Nasal Cannula 03/29/24 12:06 O2 Flow Rate 3 03/29/24 12:06 BMI result Body Mass Index 19.5 Vital signs have been reviewed and appear to be correct. Blood pressure elevated. Heart rate normal. Respiratory rate normal. Temperature normal. Oxygen saturation normal. Appearance: Alert. Oriented X3. No acute distress. Head: Normal external exam. Normocephalic. Atraumatic. No Wolfe signs noted. No raccoon eyes noted Eyes: PERRLA. EOMI. Conjunctiva and sclera normal. Eyelids normal. ENT: TM's Normal. Pharynx normal. Uvula midline. Moist mucous membranes. No trismus noted. No drooling noted. No muffled voice noted. Neck: Normal inspection. Neck supple. FROM. No adenopathy. Thyroid Normal. No meningeal signs. No neck mass noted. CVS: Normal heart rate and rhythm. Heart sound normal. No murmurs noted. Pulses normal throughout. Respiratory: No respiratory distress. Painless inspiration. Breath sounds normal. No wheezes/rales/rhonchi noted. Chest nontender. No accessory muscle usage noted or decreased air movement noted. Abdomen: Soft and nontender. Bowel sounds normal in all 4 quadrants. No distention noted. No organomegaly noted. No visible injury noted. Back: No CVA tenderness. Full range of motion noted. Skin: Skin warm and dry. Normal skin color. Normal skin turgor. No rashes/lesions/lacerations noted. Extremities: No lower extremity edema. Extremities exhibit normal range of motion. Extremities nontender. Neuro: Oriented X 3. Cranial nerve exam: II-XII are grossly intact No motor deficit. No sensory deficit. Reflexes normal. Course Course Course Narrative: This is a rapid medical exam. Deferred additional HPI, ROS, PE to primary provider. 58 yo male with history of DM, anxiety, depression, asthma here with complaints of shortness of breath, back pain, productive cough x several weeks. Will obtain labs, viral testing, CXR, EKG RHEA Ulloa APRN Reevaluation(s) Reevaluation #1: ST-elevation [place] with chest pain. Case was accepted by Dr. Faith Riley to the cardiac catheterization. Aspirin, heparin, Brilinta, nitro, beta deb, statins. Time: 11:57 Reevaluation #2: Patient is leaving our ER by EMS to the cardiac catheterization at [facility] now. Time: 12:04 Medications Administered Discontinued Medications Generic Name Dose Route Start Last Admin Trade Name Freq PRN Reason Stop Dose Admin Aspirin 325 mg 03/29/24 11:38 03/29/24 11:46 Aspirin Enteric Coated 325 Mg Tablet. PO 03/29/24 11:39 325 mg ONCE ONE Administration Atorvastatin Calcium 80 mg 03/29/24 11:38 03/29/24 11:46 Atorvastatin Calcium 80 Mg Tablet PO 03/29/24 11:39 80 mg ONCE ONE Administration Heparin Sodium (Porcine) 3,300 unit 03/29/24 11:38 03/29/24 11:48 Heparin Sodium,Porcine 5,000 Unit/Ml Vial 60 unit/kg (3300 unit) 03/29/24 11:39 3,300 unit IVPUSH Administration ONCE ONE Heparin Sodium/Sodium Chloride 25,000 unit in 250 mls @ 0 mls/hr 03/29/24 11:45 03/29/24 11:53 Heparin Sodium,Porcine/1/2ns IVCONT 12 units/kg/hr .Q0M ANANDA 6.56 mls/hr Administration Protocol Per Protocol Metoprolol Tartrate 5 mg 03/29/24 11:38 03/29/24 11:47 Metoprolol Tartrate 5 Mg/5 Ml Vial IVPUSH 03/29/24 11:39 5 mg ONCE ONE Administration Protocol Nitroglycerin 0.5 inch 03/29/24 11:54 03/29/24 12:19 Nitroglycerin 2 % Oint 1 Gm Packet TRANSDERMA 03/29/24 11:55 Not Given ONCE ONE Ticagrelor 180 mg 03/29/24 11:38 03/29/24 11:45 Ticagrelor 90 Mg Tablet PO 03/29/24 11:39 180 mg ONCE ONE Administration Medical Decision Making Differential Diagnosis Differential Diagnoses: The differential diagnosis associated with the presentation includes (STEMI, pneumonia, pneumothorax, pleural effusion, acute asthma exacerbation, electrolyte derangement, severe anemia.) Admission/Observation Consideration of admission/observation: Escalation of care including admission/observation considered Consult Healthcare Provider Management of the patient was discussed with: Custom Shoe Designer And Maker (Intervention flat surfacer jewel Dr.Goldswein Riley.) Lab Data MDM Lab Attestation statement: I reviewed the patient's lab results. 03/29/24 11:40 03/29/24 11:41 Labs: Lab Results 03/29/24 03/29/24 Range/Units 11:40 11:41 WBC 7.2 (4.8-10.8) X10*3/uL RBC 5.00 (4.60-5.80) X10*6/uL Hgb 14.7 (14.0-18.0) g/dl Hct 44.6 (42.0-52.0) % MCV 89.2 (80.0-98.0) fL MCH 29.4 (27.0-33.0) pg MCHC 33.0 (31.0-36.0) g/dl RDW 13.4 (11.0-16.0) % Plt Count 246 (160-400) X10*3/uL MPV 10.0 (9.4-12.4) fL Immature Gran % (Auto) 0.3 (0.0-0.4) % Neut % (Auto) 46.8 (45-73) % Lymph % (Auto) 26.2 (20-40) % [place] % (Auto) 9.4 (2-11) % Eos % (Auto) 15.5 H (0-4) % Baso % (Auto) 1.8 (0-2) % Lymph # (Auto) 1.9 (1.2-4.9) X10*3/uL [place] # (Auto) 0.7 (0.1-1.2) X10*3/uL Eos # (Auto) 1.1 H (0.0-0.4) X10*3/uL Baso # (Auto) 0.1 (0.0-0.2) X10*3/uL Abs Immat Gran (auto) 0.02 (0.00-0.03) X10*3/uL Absolute Neuts (auto) 3.4 (2.0-8.3) x10*3/uL Absolute Nucleated RBC 0.000 (0.0-0.012) X10*3/uL Nucleated RBC % (auto) 0.0 (0.0-0.2) /100WBC PT 11.7 (10.9-12.4) SEC INR 1.0 (0.9-1.1) APTT 30.0 (26.0-36.8) SEC Sodium 139 (135-145) mmol/L Potassium 4.9 (3.3-5.1) mmol/L Chloride 103 (96-108) mmol/L Carbon Dioxide 30 H (22-29) mmol/L Anion Gap 11 L (12-20) BUN 15 (9-16) mg/dL Creatinine 0.96 (0.5-1.4) mg/dL Estim Creat Clear Calc 65.6 Estimated GFR > 60 Random Glucose 203 H (60-115) mg/dL Calcium 9.9 (8.4-10.2) mg/dL Total Bilirubin 1.3 H (0.0-1.0) mg/dL Direct Bilirubin 0.4 (0.0-0.5) mg/dL AST 22 (5-37) U/L ALT 16 (0-40) U/L Alkaline Phosphatase 66 (39-117) U/L Troponin I High Sens 12.5 (<3.5-35.0) ng/L Total Protein 7.8 (6.5-8.0) g/dL Albumin 4.7 (3.5-5.0) g/dL Influenza Type A (PCR) NEGATIVE (Negative) Influenza Type B (PCR) NEGATIVE (Negative) RSV RNA Qual (PCR) NEGATIVE (Negative) SARS-CoV-2 RNA (RT-PCR) NEGATIVE (Negative) Critical Care Time Critical Care Time Critical Care Time: Yes Total Critical Care Time: 40 Attestation: The patient was critically ill with a high probability of imminent or life-threatening deterioration. I spent greater than 30 minutes of discontinuous time evaluating the patient, delivering critical care at the bedside, discussing evaluating data with consultants. Critical care time does not include time spent performing separately billable procedures or teaching. Time spent performing critical care was 40 minutes. Discharge Plan Discharge Clinical Impression: ST elevation (STEMI) myocardial infarction Patient Disposition: [facility] Hospital Transfer Details: Cardiac catheterization at [facility]. Prescriptions: No Action (DME) FreeStyle Kasey 2 [place] Misc See Rx Instructions .Route Qty: 1 0RF Rx Instructions: As directed checks 8X/day (DME) FreeStyle Kasey 2 Sensor Kit See Rx Instructions .ROUTE .COMPLEX Qty: 2 4RF Dose Instruction: USE DIRECTED TO TEST BLOOD SUGAR 8 TIMES DAILY Rx Instructions: USE DIRECTED TO TEST BLOOD SUGAR 8 TIMES DAILY insulin aspart U-100 [Novolog FlexPen U-100 Insulin] 100 unit/mL (3 mL) insulin pen See Rx Instructions subcut TID Qty: 15 2RF Rx Instructions: inject sq 6 units with breakfast, 8 units with lunch, 4 units with supper. ibuprofen [IBU] 800 mg tablet 800 mg PO TID PRN (Reason: pain) quetiapine [Seroquel] 50 mg Tablet 50 mg PO BID atorvastatin [Lipitor] 40 mg tablet 40 mg PO DAILY acetaminophen [Acetaminophen Pain Relief] 500 mg tablet 500 mg PO ONCE PRN (Reason: fever or pain) docusate sodium [DOK] 100 mg capsule 100 mg PO DAILY PRN (Reason: Constipation) montelukast [Singulair] 10 mg tablet 10 mg PO DAILY aspirin [Adult Low Dose Aspirin] 81 mg tablet,delayed release (DR/EC) 81 mg PO DAILY senna 8.6 mg capsule 8.6 mg PO DAILY (DME) lancets 33 gauge misc See Rx Instructions .ROUTE .MEDSUPPLY Qty: 100 Rx Instructions: As directed nicotine [Nicoderm CQ] 7 mg/24 hr patch 24 hour 1 patch transdermal DAILY budesonide [Pulmicort] 1 mg/2 mL suspension for nebulization 1 mg inhalation DAILY PRN (Reason: Shortness Of Breath Or Wheezing) (DME) pen needle, diabetic 32 gauge x 5/32 needle See Rx Instructions .ROUTE QID Qty: 50 Rx Instructions: As directed (DME) FreeStyle Lite Strips Strip See Rx Instructions Not Applicable TID Qty: 10 Rx Instructions: As directed ramelteon [Rozerem] 8 mg tablet 8 mg PO BEDTIME albuterol sulfate [Ventolin HFA] 90 mcg/actuation HFA aerosol inhaler 2 puff inhalation Q4H PRN (Reason: shortness of breath or wheeze) clonazepam [Klonopin] 2 mg tablet 2 mg PO BEDTIME buprenorphine-naloxone [Suboxone] 8-2 mg film 10 mg sublingual BID (DME) lancing device with lancets [Eden [employer]Touch Delica Plus Lanc Dev] Kit See Rx Instructions .Route Rx Instructions: As directed (DME) blood-glucose meter [[employer]Touch Ultra2 Meter] Misc See Rx Instructions .Route Rx Instructions: As directed (DME) [employer] Ultra Test Strip See Rx Instructions .Route Rx Instructions: As directed fluticasone furoate-vilanterol [Breo Ellipta] 100-25 mcg/dose blister with device 1 ea inhalation DAILY clonazepam [Klonopin] 1 mg tablet 1 mg PO BID PRN (Reason: Anxiety) naloxone [Narcan] 4 mg/actuation spray,non-aerosol 0 spray intranasal NEEDED PRN (Reason: Opioid Overdose) lidocaine [Lidoderm] 5 % adhesive patch,medicated 0 patch topical DAILY PRN (Reason: Pain) silver sulfadiazine [Silvadene] 1 % cream 1 appl topical DAILY Qty: 20 0RF Rx Instructions: apply a 1.5 mm thickness glucose [Dex4 Glucose] 4 gram tablet,chewable 16 g PO Q15M PRN (Reason: hypoglycemia) Qty: 100 0RF Rx Instructions: until symptoms of low blood sugar are controlled insulin degludec [Tresiba FlexTouch U-100] 100 unit/mL (3 mL) insulin pen 10 unit subcut DAILY Qty: 15 3RF buspirone 15 mg tablet 15 mg PO BID Referrals: Name,MD Ananda [Primary Care Provider] - Interventions: Acute Care Transfer Worksheet (ED) Last Done: 03/29/24 12:06 Discharge Date/Time: 03/29/24 12:07 Print Language: Cambodian
--- NOTE | 2024-03-29 11:15 | ECG_ITS ---
Test Reason : SOB, BACK PAIN Blood Pressure : */* mmHG Vent. Rate : 101 BPM Atrial Rate : 101 BPM P-R Int : 152 ms QRS Dur : 78 ms QT Int : 332 ms P-R-T Axes : 68 90 69 degrees QTcB Int : 430 ms Sinus tachycardia Rightward axis Minimal voltage criteria for LVH, may be normal variant ( Jeancarlos product ) Anteroseptal infarct (cited on or before 28-Apr-2019) ACUTE DC / STEMI Abnormal ECG When compared with ECG of 28-Apr-2019 23:48, ST more elevated in Anterior leads Referred By: Tiffanie Ulloa Electronically Signed By: JED JOHNS
[2024-03-29 11:37] VITALS: BMI 19.5
[2024-03-29 11:45] LABS: MANUAL DIFF FLAG NO
[2024-03-29] MEDS: Ticagrelor 90 MG TABLET 180 MG PO (11:45)
[2024-03-29] MEDS: Atorvastatin Calcium 80 MG TABLET PO (11:46)
[2024-03-29] MEDS: Aspirin Enteric Coated 325 MG TABLET.DR PO (11:46)
[2024-03-29] MEDS: Metoprolol Tartrate 5 MG/5 ML VIAL IVPUSH (11:47)
[2024-03-29 11:48] LABS: Basophils Absolute Auto 0.1 X10*3/uL (0.0-0.2); Basophils Percent Auto 1.8 % (0-2); Eosinophils Absolute Auto 1.1 X10*3/uL (0.0-0.4); Eosinophils Percent Auto 15.5 % (0-4); Hematocrit 44.6 % (42.0-52.0); Hemoglobin 14.7 g/dl (14.0-18.0); Imm Gran Abs Auto 0.02 X10*3/uL (0.00-0.03); Imm Gran Pct Auto 0.3 % (0.0-0.4); Lymphocytes Absolute Auto 1.9 X10*3/uL (1.2-4.9); Lymphocytes Percent Auto 26.2 % (20-40); Mean Corpuscular Hemoglobin 29.4 pg (27.0-33.0); Mean Corpuscular Volume 89.2 fL (80.0-98.0); Monocytes Absolute Auto 0.7 X10*3/uL (0.1-1.2); Monocytes Percent Auto 9.4 % (2-11); Neutrophils Absolute Auto 3.4 x10*3/uL (2.0-8.3); Neutrophils Percent Auto 46.8 % (45-73); Platelet Count 246 X10*3/uL (160-400); Red Cell Distribution Width 13.4 % (11.0-16.0); White Blood Count 7.2 X10*3/uL (4.8-10.8)
[2024-03-29] MEDS: Heparin Sodium,Porcine 5,000 UNIT/ML VIAL 3300 UNIT IVPUSH (11:48)
[2024-03-29 11:50] VITALS: BP 132/83; PULSE 83; RESP 18; TEMP 37.2; O2SAT 96
[2024-03-29 11:52] LABS: Prothrombin Time 11.7 SEC (10.9-12.4)
[2024-03-29] MEDS: Heparin Sodium,Porcine/1/2NS 25,000 UNIT/250 ML IV.SOLN 6.56 UNIT IVCONT (11:53)
[2024-03-29 12:01] LABS: Alanine Aminotransferase 16 U/L (0-40); Albumin Level 4.7 g/dL (3.5-5.0); Alkaline Phosphatase 66 U/L (39-117); Anion Gap 11 (12-20); Aspartate Amino Transferase 22 U/L (5-37); Bilirubin Direct 0.4 mg/dL (0.0-0.5); Bilirubin Total 1.3 mg/dL (0.0-1.0); Blood Urea Nitrogen 15 mg/dL (9-16); Calcium 9.9 mg/dL (8.4-10.2); Carbon Dioxide 30 mmol/L (22-29); Chloride 103 mmol/L (96-108); Creatinine Clr Calc Pharmacy 65.6; Estimated Glomerular Filt Rate > 60; Glucose Random 203 mg/dL (60-115); Potassium 4.9 mmol/L (3.3-5.1); Sodium 139 mmol/L (135-145); Total Protein 7.8 g/dL (6.5-8.0)
[2024-03-29 12:02] VITALS: BP 132/83; PULSE 83; RESP 18; TEMP 37.2; O2SAT 96
[2024-03-29 12:06] VITALS: BP 132/83; PULSE 83; RESP 18; TEMP 37.2; O2SAT 96
--- OUTSIDE RECORDS SUMMARY | 2024-03-29 12:06 | XMS_ITS | Encounter Summary ---
Author Organization [employer] Address [address] [facility] [address] [place] [address] Care Team Providers Care Filteration Operator Name Role Phone Name, Ananda CRANDALL Primary Care Provider [phone] Reason for Visit * Reason Onset Date Comments Durable Medical Equipment 02/28/2024 wipes Encounter Details Date Type Department Care Team ([facility] Contact Info) Description 02/28/2024 Telephone [facility] [address] [place], [place] [phone] Name, MD Ananda [address] [place] [address] Durable Medical Equipment (wipes) Social History Tobacco Use Types Packs/Day Years Used Date Smoking Tobacco: Every Day Cigarettes Passive Smoke Exposure: Current Smokeless Tobacco: Never Alcohol Use Standard Drinks/Week Comments Never 0 (1 standard drink = 0.6 oz pur e alcohol) Depression Answer Date Recorded Patient Health Questionnaire-9 Score 10 07/10/2023 Patient Health Questionnaire-9 Score 10 07/10/2023 Last PHQ-9: Questionnaire Data Not on file 0 07/10/2023 Housing Stability Answer Date Recorded What is your housing situation today? I have rosaura salmon 12/19/[address] you li ve. Do you have problems with any of the following? None of the above 12/19/2022 Food Insecurity Answer Date Recorded Within the past 12 months, y ou worried that your food would run out before you got money to buy more: Never True 12/19/2022 Within the past 12 months,th e food you bought just didn't last and you didn't have enough money to get more: Never True Transportation Answer Date Recorded In the past 12 months, has l ack of transportation kept you from medical appts, meetings, work or from getting things needed for daily living? No 12/19/2022 Utilities Answer Date Recorded In the past 12 months, has t he electric, gas, oil or water company threatened to shut off services in your home? No 12/19/2022 Depression Answer Date Recorded Patient Health Questionnaire-2 Score 2 07/10/2023 Sex and Gender Information Value Date Recorded Sex Assigned at Male 01/01/2022 10:14 AM EDT Legal Sex Male 10:14 AM EDT Gender Identity Male 01/01/2022 10:14 AM EDT Sexual Orientation Straight 01/01/2022 10 :14 AM EDT documented as of this encounter Miscellaneous Notes * Telephone Encounter - Aliyah Ayala - 02/28/2024 1:56 PM EST Confirmation of order form received from [employer] for wipes and sent to pcp via [employer] for e-signature. documented in this encounter Plan of Treatment Upcoming Encounters Date Type Department Care Team (Late st Contact Info) Description 04/15/2024 9:30 AM EST Clinical Support [facility] [address] [place] [address] Sonali Stubbs, COREY [address] [place] [address] 06/04/2024 9:45 AM EDT Office Visit [facility] [address] [place] [address] Natalie Davis, OD [address] [place] [address] documented as of this encounter Visit Diagnoses Not on filedocumented in this encounter Additional Health Concerns Assessment Noted Time PHQ-9 Depression Total Score: 10 024 9:15 AM EDT documented as of this encounter Care Teams Filteration Operator Relationship Specialty Start Date End Date Name, MD Ananda [address] [place] [address] PCP - General Family Medicine 06/01/15 documented as of this encounter
--- OUTSIDE RECORDS SUMMARY | 2024-03-29 12:06 | XMS_ITS | Encounter Summary ---
Author Organization [employer] Address [address] [facility] [address] [place] [address] Care Team Providers Care Capacitor Assembler Name Role Phone Name, Ananda CRANDALL Primary Care Provider [phone] Encounter Details Date Type Department Care Team (Latest Contact Info) Description 03/05/2024 9:45 AM EST Office Visit [facility] [address] [place], [place] [phone] Natalie Davis, OD [address] [place], [place] [phone] Type 2 diabetes mellitus without ophthalmic manifestations (CMS/HCC) (Primary Dx); Other specified disorders of choroid; Retinal scar of left eye; Regular astigmatism, bilateral; Reduced visual acuity Social History Tobacco Use Types Packs/Day Years [...] your housing situation today? I have rosaura viky 12/19/[address] you li [...] AM EDT documented as of this encounter Progress Notes * Natalie Davis, OD - 03/05/2024 9:45 AM EST Eye Care Progress Note Patient ID: Hubert Rios is a 58 y.o. male. HPI T2DM exam. Last A1c 8.1% (02/08/24). Last BSL 165mg/dl this AM Patient reports blurry vision both eyes (OU) at distance. Patient does not wear glasses. Patient reports longstanding monocular double vision (x~7 years) Last edited by Natalie Davis, OD on 03/05/2024 10:24 AM. Current Outpatient Medications Medication Sig Dispense Refill albuterol (2.5 MG/3ML) 0.083% nebulizer solution Take 3 mL (2.5 mg) by nebulization every 6 (six) hours if needed for wheezing. 75 mL 11 albuterol (Ventolin HFA) 108 (90 Base) MCG/ACT inhaler INHALE 2 PUFFS BY MOUTH EVERY 4 TO 6 HOURS NEEDED 18 g 5 Alcohol Swabs (Alcohol Prep) 70 % pads USE FOUR TIMES DAILY DIRECTED aspirin (Aspirin Low Dose) 81 MG EC tablet TAKE 1 TABLET BY MOUTH DAILY IN THE MORNING 90 tablet 0 atorvastatin (Lipitor) 40 MG tablet Take 1 tablet (40 mg) by mouth Once per day. as directed 90 tablet 0 budesonide (Pulmicort) 1 MG/2ML nebulizer solution INHALE 1 AMPULE USING A NEBULIZER ONCE DAILY. RINSE MOUTH AFTER USING. 60 mL 3 busPIRone (Buspar) 15 MG tablet Take 15 mg by mouth 2 times daily. clonazePAM (KlonoPIN) 1 MG tablet Take 1 mg by mouth 2 times daily. clonazePAM (KlonoPIN) 2 MG tablet Take 1 tablet by mouth at bedtime. Continuous Glucose Managing Consultant (FreeStyle Kasey 2 [place]) device Scan sensor every 8 hours 1 each 0 Continuous Glucose Sensor (FreeStyle Kasey 2 Sensor) [facility] USE DIRECTED TO TEST BLOOD SUGAR 8 TIMES PER DAY 2 each 11 docusate sodium (Colace) 100 MG capsule Take 1 capsule by mouth at bed time. Fluticasone-Salmeterol 100-50 MCG/ACT aerosol powder INHALE 1 PUFF BY MOUTH TWICE DAILY 60 each 2 glucose (Glutose 15) 40 % gel oral gel TAKE 15 GRAMS BY MOUTH NEEDED FOR LOW BLOOD SUGAR 37.5 g 1 glucose blood (FreeStyle Precision Isak Test) test strip 1 each by Other route 3 times daily. 100 each 3 glucose blood (OneTouch Verio) test strip every 8 (eight) hours. Lancets (OneTouch Delica Plus [id number]) [facility] TEST BLOOD SUGAR THREE TIMES DAILY Mis. Devices (Pulse Oximeter For Finger) [facility] 1 each 2 times daily. Call [facility] if consistently < 95% 1 each 0 montelukast (Singulair) 10 MG tablet TAKE 1 TABLET BY MOUTH EVERY DAY AT BEDTIME 90 tablet 1 Multiple Vitamin (Multivitamin) tablet Take 1 tablet by mouth Once daily. TAKE 1 TABLET BY MOUTH EVERY DAY WITH FOODTAKE 1 TABLET BY MOUTH EVERY DAY WITH FOOD 90 tablet 3 naloxone (Narcan) 4 mg/0.1 mL nasal spray Administer 1 spray (4 mg) into affected nostril(s) if needed for opioid reversal. 2 each 0 nicotine (Nicoderm CQ) 7 MG/24HR patch Place 1 patch on the skin 1 (one) time each day at the same time. 30 patch 0 nicotine polacrilex (Commit) 2 MG lozenge take 1 tablet by oral route every 8 hours dissolved slowly in the mouth as needed for cigarette craving NovoLOG FLEXPEN 100 UNIT/ML pen INJECT SUBCUTANEOUSLY THREE TIMES DAILY PER SLIDING SCALE: BLOOD SUGAR < 200: DO NOT USE, 201-250 = 2 UNITS, 251-300 = 4U, 301-350 = 8U, > 351 = 10U 15 mL 4 Pentips 32G X 4 MM misc USE DIRECTED FOUR TIMES DAILY 100 each 5 Propylene Glycol-Glycerin 1-0.3 % solution Use 2 gtt QID prn eye itchiness as needed ramelteon (Rozerem) 8 MG tablet Take 1 tablet by mouth at bed time. senna (Senokot) 8.6 MG tablet TAKE 2 TABLETS BY MOUTH EVERY DAY NEEDED FOR CONSTIPATION 60 tablet 5 Suboxone 8-[address] 3 Film under the tongue Once per day for 28 days. 84 Film 0 Tresiba FlexTouch 100 UNIT/ML injection INJECT 8 UNITS SUBCUTANEOUSLY EVERY DAY Umeclidinium Canones (Incruse Ellipta) 62.5 MCG/ACT aerosol powder Inhale 1 Inhalation Once per day. 30 each 3 venlafaxine XR (Effexor XR) 150 MG 24 hr capsule Take 1 capsule by mouth in the morning. Take with 75 mg capsule venlafaxine XR (Effexor XR) 75 MG 24 hr capsule Take 1 capsule by mouth in the morning. Take with 150 mc capsule No current facility-administered medications for this visit. Past Medical History: Diagnosis Date Anxiety Asthma Cancer (CMS/HCC) Hypertension Past Surgical History: Procedure Laterality Date CT GUIDED RF ABLATION RENAL LEFT Left 01/16/2023 CT GUIDED RF ABLATION RENAL LEFT No family history on file. Tobacco Use: High Risk (03/05/2024) Tobacco Smoking Tobacco Use: Every Day Smokeless Tobacco Use: Never Passive Exposure: Current No Known Allergies ROS Positive for: Endocrine, Eyes Negative for: Constitutional, Gastrointestinal, Neurological, Skin, Genitourinary, Musculoskeletal,HENT, Cardiovascular, Respiratory, Psychiatric, Allergic/Imm, Heme/Lymph Last edited by Natalie Davis, MADIE on 03/05/2024 9:37 AM. Base Eye Exam Visual Acuity (Snellen - Linear) Right Left Dist sc 20/50 -2 20/80 +2 Dist ph sc 20/50 20/60 +2 Diplopia right eye (OD) and left eye (OS) Tonometry (i[facility] , 9:54 AM) Right Left Pressure 21 23 Pupils Pupils APD Right PERRL None Left PERRL None Visual Diego (Counting fingers) Left Right Full Full Extraocular Movement Right Left Full Full Neuro/Psych Oriented x3: Yes Dilation Both eyes: 1.0% tropicamide @ 9:55 AM Additional Tests Amsler Right Left Superior nasal metamorphopsia Normal Additional Notes Cover test @ distance: ortho Slit Lamp and Fundus Exam External Exam Right Left External Normal Normal Slit Lamp Exam Right Left Lids/Lashes Clean and clear Clean and clear Conjunctiva/Sclera White and quiet White and quiet Cornea Clear Clear Anterior Chamber Deep and quiet, angles open gr 3 Deep and quiet, angles open gr 3 Iris Round and reactive, (-) NVI Round and reactive, (-) NVI Lens 1+ NS, 1+ cortical changes 1+ NS, 1+ cortical changes Fundus Exam Right Left Vitreous Clear Clear Disc North Light Plant and healthy, (-) NVD North Light Plant and healthy, (-) NVD C/D Ratio Vertical 0.20 0.30 C/D Ratio Horizontal 0.20 0.25 Macula Flat with even pigmentation, (-) CME Pigment irregularities, (-) CME Vessels Normal course and caliber, (-) NVE Normal course and caliber, (-) NVE Periphery No holes/tears/detachments 360 Large ~6x3DD retinal scar superior temporal midperiphery, no holes/tears/detachments 360 Refraction Manifest Refraction (Retinoscopy) Sphere Cylinder [place] Dist VA Add Right +0.25 -2.25 170 Left -0.50 -0.50 180 Manifest Refraction #2 (Auto) Sphere Cylinder [place] Dist VA Add Right +0.25 -2.25 011 Left -0.75 -0.75 100 Manifest Refraction #3 (Subjective) Sphere Cylinder [place] Dist VA Add Right -0.25 -1.50 005 20/50 +2.25 Left -1.00 -0.50 105 20/50 +2.25 Comments: Patient reports resolution of diplopia with MRx in trial frame Assessment and Plan Diagnoses and all orders for this visit: Type 2 diabetes mellitus without ophthalmic manifestations (CMS/HCC) - No diabetic retinopathy or diabetic macular edema both eyes (OU) - Discussed importance of tight blood glucose control, medication compliance and regular follow up with PCP 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 Pt denies h/o trauma or previous eye conditions. - Visually insignificant. Monitor. Regular astigmatism, bilateral - Held off on dispensing spec Rx at this time due to PEDs right eye (OD) Reduced visual acuity - BCVA OD: 20/50 does not correspond with non-fovea involving PEDs and no other ocular pathology present to explain reduced acuity. - Possible meridional amblyopia contributing to reduced acuity OD - BCVA OS: 20/50 does not correspond with findings. PIL intact subfoveally. - RTC for visual field RTC 3 months for DFE + visual field (will need to put Rx into trial frame to incorporate cyl) Natalie Davis, OD 03/05/2024, 10:50 AM Land Surveyor Manager Source: ___ None _x__ Bilingual Staff ___ Qualified Staff Insulation Worker Furnace Installer ___ Telephone Land Surveyor Manager; ID# ___ Land Surveyor Manager brought by patient (family member, friend, FINANCE EFFECTIVENESS MANAGER, etc) ___ In person data examination clerk ___ Ipad Land Surveyor Manager; ID#: Language Spoken During Exam: Bolivian and Guatemalan documented in this encounter Plan of Treatment Upcoming Encounters Date Type Department Care Team (Late st Contact Info) Description 04/15/2024 9:30 AM EST Clinical Support [facility] [address] [place] [address] Sonali Stubbs, RN [address] [place] [address] 06/04/2024 9:45 AM EDT Office Visit [facility] [address] [place] [address] Natalie Davis, MADIE [address] [place] [address] documented as of this encounter Procedures Procedure Name Priority Date/Time Associated Diagnosis Comments OCT, RETINA - OU - BOTH EYES Routine 03/05/2024 10:46 AM EST Other specified disorders of choroid documented in this encounter Results * OCT, Retina - OU - Both Eyes (03/05/2024 10:46 AM EST) Narrative Natalie Davis, OD - 03/05/2024 10:46 AM EST OCT MACULA INTERPRETATION Optical Coherence Tomography Interpretation Report Reliability: OD: 55 - good quality scan OS: 60 - good quality scan Measurements: Central subfoveal thickness OD: ??255 microns OS: ??236 microns Test findings: OD: Thick choroid with pachyvessels, 2 PEDs temporal to fovea, no CNVM visible, subfoveal retina undisturbed OS: Thick choroid with pachyvessels, PIL and RPE irregularity with a SIRE like lesion inferiorly encroaching onto fovea, VMA, no IRF/SRF Impression and Plan: Pachychoroid spectrum disorder both eyes (OU). RTC 3 months. 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
--- OUTSIDE RECORDS SUMMARY | 2024-03-29 12:06 | XMS_ITS | Encounter Summary ---
Author Organization [employer] Address [address] [facility] [address] [place] [address] Care Team Providers Care Assistant Librarian Name Role Phone Name, Ananda CRANDALL Primary Care Provider [phone] Reason for Visit * Reason Comments Med Refill Encounter Details Date Type Department Care Team (Late Contact Info) Description 12/07/2022 Refill [facility] [address] [place] [phone] Name, MD Ananda [address] [place] [phone] Type 2 diabetes mellitus without complication, unspecified whether long-term insulin use ([facility]); Type 2 diabetes mellitus without complication, with long-term current use of insulin ([facility]) Social History Tobacco Use Types Packs/Day Years Used Date Smoking Tobacco: Every Day Cigarettes Passive Smoke Exposure: Past Smokeless Tobacco: Never Alcohol Use Standard Drinks/Week Comments Never 0 (1 standard drink = 0.6 oz pur e alcohol) Depression Answer Date Recorded Patient Health Questionnaire-9 Score 3 10/03/2022 Depression Answer Date Recorded Patient Health Questionnaire-2 Score 1 10/03/2022 Sex and Gender Information Value Date Recorded Sex Assigned at Male 01/01/2022 10:14 AM EDT Legal Sex Male 10:14 AM EDT Gender Identity Male 01/01/2022 10:14 AM EDT Sexual Orientation Straight 01/01/2022 10 :14 AM EDT documented as of this encounter Plan of Treatment Upcoming Encounters Date Type Department Care Team (Late Contact Info) Description 04/15/2024 9:30 AM EST Clinical Support [facility] [address] [place] [address] Sonali Stubbs, RN [address] [place] [address] 06/04/2024 9:45 AM EDT Office Visit [facility] [address] [place] [address] Natalie Davis, OD [address] [place] [address] documented as of this encounter Visit Diagnoses Diagnosis Type 2 diabetes mellitus without complication, unspecified 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
--- OUTSIDE RECORDS SUMMARY | 2024-03-29 12:06 | XMS_ITS | Encounter Summary ---
Author Organization [employer] Address [address] [place] [address] Care Team Providers Care Cable Rigger Name Role Phone Name, Ananda CRANDALL Primary Care Provider [phone] Reason for Visit * Reason Onset Date Comments Durable Medical Equipment 03/11/2024 Encounter Details Date Type Department Care Team ([facility] st Contact Info) Description 03/11/2024 Telephone [facility] [address] [place], [place] [phone] Name, MD Ananda [address] [place] [address] Durable Medical Equipment Social History Tobacco Use Types Packs/Day Years [...] encounter Miscellaneous Notes * Telephone Encounter - Aliyahyolanda Mullinsiz - 03/26/2024 10:40 AM EST Confirmation of order for Wipes signed and faxed to [employer] . Confirmation received and sent to supervisor front/[place] team for scanning. If patient calls to check status on above, please advise them to contact [employer] at [phone]. * Telephone Encounter - Robert Cleveland RN - 03/11/2024 11:12 AM EST Confirmation of order for Wipes from [employer] placed on PCP desk for signature. documented in this encounter Plan of Treatment Upcoming Encounters Date Type Department Care Team (Late st Contact Info) Description 04/15/2024 9:30 AM EST Clinical Support [facility] [address] [place] [address] Sonali Stubbs, COREY [address] [place] [address] 06/04/2024 9:45 AM EDT Office Visit [facility] [address] [place] [address] Natalie Davis, OD [address] [place] [address] documented as of this encounter Visit Diagnoses Not on filedocumented in this encounter Additional Health Concerns Assessment Noted Time PHQ-9 Depression Total Score: 10 024 9:15 AM EDT documented as of this encounter Care Teams Cable Rigger Relationship Specialty Start Date End Date Name, MD Ananda [address] [place] [address] PCP - General Family Medicine 06/01/15 documented as of this encounter
--- OUTSIDE RECORDS SUMMARY | 2024-03-29 12:06 | XMS_ITS | Encounter Summary ---
Author Organization [employer] Address [address] [facility] [place] [address] Care Team Providers Care Cook Camp Name Role Phone Name, Ananda CRANDALL Primary Care Provider [phone] Encounter Details Date Type Department Care Team ([facility] Contact Info) Description 02/14/2022 Abstract [facility] [address] [place], [place] [phone] Provider, MD Damari Social History Tobacco Use Types Packs/Day Years Used Date Smoking Tobacco: Every Day Cigarettes Smokeless Tobacco: Never Alcohol Use Standard Drinks/Week Comments Never 0 (1 standard drink = 0.6 oz pur e alcohol) Sex and Gender Information Value Date Recorded Sex Assigned at Male 01/01/2022 10:14 AM EDT Legal Sex Male 10:14 AM EDT Gender Identity Male 01/01/2022 10:14 AM EDT Sexual Orientation Straight 01/01/2022 10 :14 AM EDT COVID-19 Exposure Response Date Recorded In the last 10 days, have yo u been in contact with someone who was confirmed or suspected to have Coronavirus/COVID-19? No / Unsure 02/14/2022 9:23 AM EST documented as of this encounter Plan of Treatment Upcoming Encounters Date Type Department Care Team (Late Contact Info) Description 04/15/2024 9:30 AM EST Clinical Support [facility] [address] [place] [address] Sonali Stubbs, COREY [address] [place] [address] 06/04/2024 9:45 AM EDT Office Visit [facility] [address] [place] [phone] Natalie Davis, OD [address] [place] [address] documented as of this encounter Visit Diagnoses Not on filedocumented in this encounter Care Teams Cook Camp Relationship Specialty Start Date End Date Name, MD Ananda [address] [place] [address] PCP - General Family Medicine 06/01/15 documented as of this encounter
--- OUTSIDE RECORDS SUMMARY | 2024-03-29 12:06 | XMS_ITS | Encounter Summary ---
Author Organization [employer] Address [address] [place] [address] Care Team Providers Care Sweatband Separator Name Role Phone Name, Ananda CRANDALL Primary Care Provider [phone] Encounter Details Date Type Department Care Team ([facility] Contact Info) Description 03/29/2024 Orders Only GENERIC EXTERNAL DATA DEPARTMENT Provider, Generic External Data Social History Tobacco Use Types Packs/Day Years [...] Description 04/15/2024 9:30 AM EST Clinical Support [facility] MEDICINE [address] [place] [address] Sonali Stubbs, RN 230 [place] [address] 06/04/2024 9:45 AM EDT Office Visit [facility] OPTOMETRY [address] [place] [address] Natalie Davis, OD [address] [place] [address] documented as of this encounter Procedures Procedure Name Priority Date/Time Associated Diagnosis Comments HEPATIC FUNCTION PANEL Routine 03/29/2024 11:41 AM EST BASIC METABOLIC PANEL Routine 03/29/2024 11:41 AM EST CBC WITH AUTO DIFFERENTIAL Routine 03/29/2024 11:40 AM EST PROTHROMBIN TIME-INR Routine 03/29/2024 11:40 AM EST documented in this encounter Results * (ABNORMAL) Basic Metabolic Panel (03/29/2024 11:41 AM EST) Sodium 139 135 - 145 mmol/L [facility] Potassium 4.9 3.3 - 5.1 mmol/L [facility] Chloride 103 96 - 108 mmol/L [facility] Carbon Dioxide 30(H) 22 - 29 mmol/L [facility] Anion Gap 11(L) 12 - 20 [facility] Urea Nitrogen (BUN) 15 9 - 16 mg/dL [facility] Creatinine, Serum 0.96 0.5 - 1.4 mg/dL [facility] Creatinine Clr Calc Pharmacy 65.6 [facility] Comment:eGFR (calculated fro m the MDRD study equation) and eCrCl(calculated from the Cockcroft-Gault equation) are based ondifferent parameters and may not yield comparable results.If eCrCl result is absurd, please check patient'sheight/weight. Estimated Glomerular Filt Rate >60 [facility] Comment:Chronic Kidney Disea se: Estimated GFR < 60 mL/min/1.42r0Bdekin Kidney Disease: Estimated GFR < 15 mL/min/1.73m2 Glucose 203(H) 60 - 115 mg/dL [facility] Calcium 9.9 8.4 - 10.2 mg/dL [facility] 03/29/2024 11:4 1 AM EST 03/29/2024 11:44 AM EST us Generic External Data Provider LAB BLOOD ORDERAB LES Final Result [facility] [address] [place] [address] [phone] * (ABNORMAL) Hepatic Function Panel (03/29/2024 11:41 AM EST) Bilirubin, Total 1.3(H) 0.0 - 1.0 mg/dL [facility] Bilirubin, Direct 0.4 0.0 - 0.5 mg/dL [facility] Aspartate Amino Transferase 22 5 - 37 U/L [facility] Alanine Aminotransferase 16 0 - 40 U/L [facility] Total Protein 7.8 6.5 - 8.0 g/dL [facility] Albumin Level 4.7 3.5 - 5.0 g/dL [facility] Alkaline Phosphatase 66 39 - 117 U/L [facility] 03/29/2024 11:4 1 AM EST 03/29/2024 11:44 AM EST us Generic External Data Provider LAB BLOOD ORDERAB LES Final Result Performing Organization Address [facility]/ZIP Co de Phone Number [facility] [address] [place] [phone] * Prothrombin Time-INR (03/29/2024 11:40 AM EST) Pathologist [facility] Prothrombin Time 11.7 10.9 - 12.4 SEC [facility] INTERNATIONAL NORM RATIO 1.0 0.9 - 1.1 [facility] Comment:INTERNATIONAL NORMAL IZED RATIO (INR) REFERENCE RANGES Reference RangeFor patients not on anticoagulant therapy: 0.9 - 1.1INR ranges for oral anticoagulanttherapy:For prevention and treatment of venous thrombosis and pulmonary embolism: 2.0 - 3.0For acute myocardial infarction with aspirin therapy: 2.0 - 3.0For acute myocardial infarction without aspirin therapy: 3.0 - 4.0For patients with mechanical prosthetic heart valves: 2.5 - 3.5 03/29/2024 11:4 0 AM EST 03/29/2024 11:44 AM EST Generic External Data Provider LAB BLOOD ORDERAB LES Final Result Performing Organization Address [facility] Co de Phone Number [facility] [address] [place] [phone] * (ABNORMAL) CBC auto differential (03/29/2024 11:40 AM EST) [facility] White Blood Count 7.2 4.8 - 10.8 X10*3/uL [facility] Red Blood Count 5.00 4.60 - 5.80 X10*6/uL [facility] Hemoglobin 14.7 14.0 - 18.0 g/dl [facility] Hematocrit 44.6 42.0 - 52.0 % [facility] Mean Corpuscular Volume 89.2 80.0 - 98.0 fL [facility] Mean Corpuscular Hemoglobin 29.4 27.0 - 33.0 pg [facility] Mean Corpuscular HGB Conc 33.0 31.0 - 36.0 g/dl [facility] Red Cell Distribution Width 13.4 11.0 - 16.0 % [facility] Platelet Count 246 160 - 400 X10*3/uL [facility] Mean Platelet Volume 10.0 9.4 - 12.4 fL [facility] Neutrophils Percent Auto 46.8 45 - 73 % [facility] Imm Gran Pct Auto 0.3 0.0 - 0.4 % [facility] Lymphocytes Percent Auto 26.2 20 - 40 % [facility] Monocytes Percent Auto 9.4 2 - 11 % [facility] Eosinophils Percent Auto 15.5(H) 0 - 4 % [facility] Basophils Percent Auto 1.8 0 - 2 % [facility] NRBC Pct Auto 0.0 0.0 - 0.2 /100WBC [facility] Neutrophils Absolute Auto 3.4 2.0 - 8.3 x10*3/uL [facility] Imm Gran Abs Auto 0.02 0.00 - 0.03 X10*3/uL [facility] Lymphocytes Absolute Auto 1.9 1.2 - 4.9 X10*3/uL [facility] Monocytes Absolute Auto 0.7 0.1 - 1.2 X10*3/uL [facility] Eosinophils Absolute Auto 1.1(H) 0.0 - 0.4 X10*3/uL [facility] Basophils Absolute Auto 0.1 0.0 - 0.2 X10*3/uL [facility] NRBC Abs Auto 0.000 0.0 - 0.012 X10*3/uL [facility] 03/29/2024 11:4 0 AM EST 03/29/2024 11:44 AM EST us Generic External Data Provider LAB BLOOD ORDERAB LES Final Result [facility] [address] [place] [address] [phone] documented in this encounter Visit Diagnoses Not on filedocumented in this encounter Additional Health Concerns Assessment Noted Time PHQ-9 Depression Total Score: 10 024 9:15 AM EDT documented as of this encounter Care Teams Sweatband Separator Relationship Specialty Start Date End Date Name, MD Ananda [address] [place] [address] PCP - General Family Medicine 06/01/15 documented as of this encounter
--- OUTSIDE RECORDS SUMMARY | 2024-03-29 12:06 | XMS_ITS | Encounter Summary ---
Author Organization [employer] Address [address] [facility] [place] [address] Care Team Providers Care Optical Goods Drill Operator Name Role Phone Name, Ananda CRANDALL Primary Care Provider [phone] Encounter Details Date Type Department Care Team (Latest Contact Info) Description 03/18/2024 Travel Social History Tobacco Use Types Packs/Day Years [...] Description 04/15/2024 9:30 AM EST Clinical Support [facility] MEDICINE [address] [place] [address] Sonali Stubbs, RN 230 [place] [address] 06/04/2024 9:45 AM EDT Office Visit [facility] OPTOMETRY [address] [place] [address] TarkaNatalie, OD [address] [place] [address] documented as of this encounter Visit Diagnoses Not on filedocumented in this encounter Additional Health Concerns Assessment Noted Time PHQ-9 Depression Total Score: 10 024 9:15 AM EDT documented as of this encounter Care Teams Optical Goods Drill Operator Relationship Specialty Start Date End Date Name, MD Ananda [address] [place] [phone] PCP - General Family Medicine 06/01/15 documented as of this encounter
--- OUTSIDE RECORDS SUMMARY | 2024-03-29 12:06 | XMS_ITS | Encounter Summary ---
Author Organization [employer] Address [address] 7[address] [place] [address] Care Team Providers Care Home Health Specialist Name Role Phone Name, Ananda CRANDALL Primary Care Provider [phone] Reason for Visit * Reason Onset Date Comments Prior Authorization 05/07/2022 Appointment 05/07/2022 Encounter Details Date Type Department Care Team ([facility] st Contact Info) Description 05/07/2022 Telephone [facility] ADULT DENTAL [address] [place] [address] Kelvin Haque, DDS [address] [place] [address] Prior Authorization; Appointment Social History Tobacco Use Types Packs/Day Years [...] suspected to have Coronavirus/COVID-19? No / Unsure 05/03/2022 9:38 AM EST documented as of this encounter Miscellaneous Notes * Telephone Encounter - Joanie Gonzalez - 05/07/2022 10:45 AM EST Patient called in to check in on status of PA for partials. Looked in chart and don't see it tx planned. Only looks like 30 minute visit suggested to be scheduled but doesn't specify if for partial. Don't see if [facility] has approved partials for patient. Patient verifying. documented in this encounter Plan of Treatment Upcoming Encounters Date Type Department Care Team (Late st Contact Info) Description 04/15/2024 9:30 AM EST Clinical Support [facility] MEDICINE [address] [place] [address] Sonali Stubbs, RN [address] [place] [address] 06/04/2024 9:45 AM EDT Office Visit [facility] OPTOMETRY [address] [place] [address] Natalie Davis, OD [address] [place] [address] documented as of this encounter Visit Diagnoses Not on filedocumented in this encounter Care Teams Home Health Specialist Relationship Specialty Start Date End Date Name, MD Ananda [address] [place] [address] PCP - General Family Medicine 06/01/15 documented as of this encounter
--- OUTSIDE RECORDS SUMMARY | 2024-03-29 12:06 | XMS_ITS | Encounter Summary ---
Author Organization [employer] Address [address] [place] [address] Care Team Providers Care Plate Mounter Name Role Phone Name, Ananda CRANDALL Primary Care Provider [phone] Encounter Details Date Type Department Care Team ([facility] st Contact Info) Description 03/28/2023 Abstract [facility] MEDICINE [address] [place], [place] [phone] Name, MD Ananda [address] [place] [address] Social History Tobacco Use Types Packs/Day Years Used Date Smoking Tobacco: Every Day Cigarettes Passive Smoke Exposure: Past Smokeless Tobacco: Never Alcohol Use Standard Drinks/Week Comments Never 0 (1 standard drink = 0.6 oz pur e alcohol) Depression Answer Date Recorded Patient Health Questionnaire-9 Score 3 10/03/2022 Housing Stability Answer Date Recorded What is [...] t he electric, gas, oil or water [employer] threatened to shut off services in your [...] Description 04/15/2024 9:30 AM EST Clinical Support [facility] MEDICINE [address] [place] [address] Sonali Stubbs, COREY [address] [place] [address] 06/04/2024 9:45 AM EDT Office Visit [facility] OPTOMETRY [address] [place] [address] Natalie Davis, OD [address] [place] [address] documented as of this encounter Visit Diagnoses Not on filedocumented in this encounter Additional Health Concerns Assessment Noted Time PHQ-9 Depression Total Score: 3 10/04/19 23 2:21 PM EDT documented as of this encounter Care Teams Plate Mounter Relationship Specialty Start Date End Date Name, MD Ananda [address] [place] [address] PCP - General Family Medicine 06/01/15 documented as of this encounter
--- OUTSIDE RECORDS SUMMARY | 2024-03-29 12:06 | XMS_ITS | Encounter Summary ---
Author Organization [employer] Address [address] [place] [address] Care Team Providers Care Salt Washer Harvesting Station Name Role Phone Name, Ananda CRANDALL Primary Care Provider [phone] Encounter Details Date Type Department Care Team ([facility] Contact Info) Description 03/28/2022 Orders Only [facility] [address] [place], [place] [phone] Teresa Moody LPN Social History Tobacco Use Types Packs/Day Years [...] suspected to have Coronavirus/COVID-19? No / Unsure 03/21/2022 10:06 AM EST documented as of this encounter Plan of Treatment Upcoming Encounters Date Type Department Care Team (Late Contact Info) Description 04/15/2024 9:30 AM EST Clinical Support [facility] MEDICINE [address] [place], [place] [phone] Sonali Stubbs, COREY [address] [place] [address] 06/04/2024 9:45 AM EDT Office Visit [facility] OPTOMETRY [address] [place] [address] Natalie Davis, OD [address] [place] [address] documented as of this encounter Visit Diagnoses Not on filedocumented in this encounter Care Teams Salt Washer Harvesting Station Relationship Specialty Start Date End Date Name, MD Ananda [address] [place] [address] PCP - General Family Medicine 06/01/15 documented as of this encounter
--- OUTSIDE RECORDS SUMMARY | 2024-03-29 12:06 | XMS_ITS | Encounter Summary ---
Author Organization [employer] Address [address] [place] [address] Care Team Providers Care Hand Candy Cutter Name Role Phone Name, Ananda CRANDALL Primary Care Provider [phone] Reason for Visit * Reason Comments Med Refill Encounter Details Date Type Department Care Team ([facility] Contact Info) Description 02/28/2023 Refill [facility] [address] [place], [place] [phone] Name, MD Ananda [address] [place] [address] Pain of left leg Social History Tobacco Use Types Packs/Day Years [...] Description 04/15/2024 9:30 AM EST Clinical Support [facility] MEDICINE [address] [place] [phone] Sonali Stubbs, COREY [address] [place] [address] 06/04/2024 9:45 AM EDT Office Visit [facility] OPTOMETRY [address] [place] [address] Natalie Davis, OD [address] [place] [address] documented as of this encounter Visit Diagnoses Diagnosis Pain of left leg documented in this encounter Additional Health Concerns Assessment Noted Time PHQ-9 Depression Total Score: 3 10/04/19 23 2:21 PM EDT documented as of this encounter Care Teams Hand Candy Cutter Relationship Specialty Start Date End Date Name, MD Ananda [address] [place] [address] PCP - General Family Medicine 06/01/15 documented as of this encounter
--- OUTSIDE RECORDS SUMMARY | 2024-03-29 12:06 | XMS_ITS | Encounter Summary ---
Author Organization [employer] Address [address] 7[address] [place] [address] Care Team Providers Care Metal Trades Instructor Name Role Phone Name, Ananda CRANDALL Primary Care Provider [phone] Reason for Visit * Reason Onset Date Comments Med Refill 03/11/2024 Encounter Details Date Type Department Care Team ([facility] st Contact Info) Description 03/11/2024 Refill [facility] MEDICINE [address] [place], [place] [phone] Sonali Stubbs, RN [address] [place] [address] Uncomplicated opioid dependence (CMS/HCC) Social History Tobacco Use Types Packs/Day Years [...] Description 04/15/2024 9:30 AM EST Clinical Support [facility] MEDICINE [address] [place] [address] Sonali Stubbs, RN [address] [place] [address] 06/04/2024 9:45 AM EDT Office Visit [facility] OPTOMETRY [address] [place] [address] Natalie Davis, OD [address] [place] [address] documented as of this encounter Visit Diagnoses Diagnosis Uncomplicated opioid dependence (CMS/HCC) documented in this encounter Additional Health Concerns Assessment Noted Time PHQ-9 Depression Total Score: 10 024 9:15 AM EDT documented as of this encounter Care Teams Metal Trades Instructor Relationship Specialty Start Date End Date Name, MD Ananda [address] [place] [address] PCP - General Family Medicine 06/01/15 documented as of this encounter
--- OUTSIDE RECORDS SUMMARY | 2024-03-29 12:06 | XMS_ITS | Encounter Summary ---
Author Organization [employer] Address [address] [place] [address] Care Team Providers Care Community Liaison Officer Name Role Phone Name, Ananda CRANDALL Primary Care Provider [phone] Reason for Visit * Reason Comments Obat f/u Encounter Details Date Type Department Care Team (Latest Contact Info) Description 03/18/2024 9:00 AM EST Clinical Support [facility] [address] [place] [address] Sonali Stubbs, COREY [address] [place] [address] Uncomplicated opioid dependence (CMS/HCC) (Primary Dx); Tobacco dependence Social History Tobacco Use Types Packs/Day Years [...] as of this encounter Progress Notes * Latrice Ibrahim MD - 03/18/2024 9:45 AM EST Subjective Patient ID: Hubert Rios is a 58 y.o. male who presents for OBAT RV. HPI Patient has been in the program for 14 years 8 months, since 07/2009. Currently seeing therapist, Yuko Thomas, at [facility], [address] [place] [address]. Haspsychiatrist, Teodoro Bee, in private practice. Prescribed benzo. Current dose of Suboxone is 24/6 mg daily, on a 4 week schedule appt. LFTs 03/20/23 (PCP ordered labs, including hepatic panel) WAREHOUSE TRAFFIC SUPERVISOR reviewed by provider. PrEP: declined 04/19/21 PCP: last seen 02/28/24 Tobacco use discussion: 08/07/23 Smoking 4-5 cigs per day, cutting down from 3 ppd. Dental care discussion: LAST VISIT: 02/19/24 Utox: pos bup, neg bzd (usually pos, Rx) Patient states he has a difficulty maintaining his weight. Increased life stressor. Smoking more cigarettes. His BG was low during this visit, and he just had a hard candy. He states he will be flying to [place] this Saturday to spend holidays with his nephew. Today: 03/18/24 Utox: Plan: Suboxone dosing schedule of 24/6 mg daily and management of side effects reviewed. Recovery support, harm reduction (including Narcan), and behavioral health attendance reviewed. Appointment for 4 weeks given. Patient expressed understanding and agreement with continuing plan of care. This information has been disclosed to you from records protected by federal confidentiality rules (42 CFR Part 2). The federal rules prohibit you from making any further disclosure of information inthis record that identifies a patient as having or having had a substance use disorder either directly, by reference to publicly available information, or through verification of such identification by another person unless further disclosure is expressly permitted by the written consent of the individual whose information is being disclosed or as otherwise permitted by (see2.3.1). The federal rules restrict any use of the information to investigate or prosecute with regard to a crime any patient with a substance use disorder, except as provided at 2.12??(5) and 2.65. Review of Systems Objective Physical Exam No visits with results within 1 Day(s) from this visit. Latest known visit with results is: Office Visit on 02/28/2024 Component Date Value Ref Range Status Glucose Blood, POC 02/28/2024 209 (A) 60 - 200 mg/dL Final QC Media Lot # 02/28/2024 [id number] Final Lot# Expiration Date 02/28/2024 [id number] Final Hemoglobin A1C 02/28/2024 8.1 (A) 4.0 - 6.0 % Final QC Media Lot # 02/28/2024 [id number] Final Lot# Expiration Date 02/28/2024 [id number] Final Assessment/Plan * Sonali Stubbs RN - 03/18/2024 9:00 AM EST Hubert Rios is a 58 y.o. male who presents for OBAT RV. Patient has been in the program for 14 years 8 months, since 07/2009. Currently seeing therapist, Yuko Thomas, at [facility], [address] [place] [address]. Haspsychiatrist, Teodoro Bee, in private practice. Prescribed benzo. Current dose of Suboxone is 24/6 mg daily, on a 4 week schedule appt. LFTs 03/20/23 (PCP ordered labs, including hepatic panel) WAREHOUSE TRAFFIC SUPERVISOR reviewed by provider. PrEP: declined 04/19/21 PCP: last seen 02/28/24 Tobacco use discussion: 08/07/23 Smoking 4-5 cigs per day, cutting down from 3 ppd. Dental care discussion: LAST VISIT: 02/19/24 Utox: pos bup, neg bzd (usually pos, Rx) Patient states he has a difficulty maintaining his weight. Increased life stressor. Smoking more cigarettes. His BG was low during this visit, and he just had a hard candy. He states he will be flying to [place] this Saturday to spend holidays with his nephew. Today: 03/18/24 Utox: BUP, BZO (Rx) Hubert seen today for opioid use disorder. Had a great time with nephew and other extended family in [place] over the holidays. He still grieves his mother and other family members lost, but also feels heis able to move forward with his life. Due for LFT's, ordered in PCP labs. Working hard on controlling his blood sugar. Continues with therapist and psychiatrist and takes prescribed bzo PRN anxiety. Plan: Suboxone dosing schedule of 24/6 mg daily and management of side effects reviewed. Recovery support, harm reduction (including Narcan), and behavioral health attendance reviewed. Appointment for 4 weeks given. Patient expressed understanding and agreement with continuing plan of care. This information has been disclosed to you from records protected by federal confidentiality rules (42 CFR Part 2). The federal rules prohibit you from making any further disclosure of information inthis record that identifies a patient as having or having had a substance use disorder either directly, by reference to publicly available information, or through verification of such identification by another person unless further disclosure is expressly permitted by the written consent of the individual whose information is being disclosed or as otherwise permitted by (see2.3.1). The federal rules restrict any use of the information to investigate or prosecute with regard to a crime any patient with a substance use disorder, except as provided at 2.12??(5) and 2.65. documented in this encounter Miscellaneous Notes * Assessment & Plan Note - Latrice Ibrahim MD - 03/18/2024 5:16 AM ESTAssociated Problem(s): Tobacco dependence - slowly cutting down - patient is interested in medication assisted treatment and will consult his PCP at next visit - continue current effort * Assessment & Plan Note - Latrice Ibrahim MD - 03/18/2024 5:16 AM ESTAssociated Problem(s): Opioid dependence (CMS/HCC) - in maintenance stage, long-term - BZD is prescribed by psychiatrist - No opi / fen in Utox for many years - continue current medication dose and visit frequency - continue education on overdose prevention, drug use trends in the community - continue current recovery support and recovery effort documented in this encounter Plan of Treatment Upcoming Encounters Date Type Department Care Team (Late st Contact Info) Description 04/15/2024 9:30 AM EST Clinical Support [facility] [address] [place] [address] Sonali Stubbs, COREY [address] [place] [address] 06/04/2024 9:45 AM EDT Office Visit [facility] [address] [place] [address] Natalie Davis, OD [address] [place] [address] documented as of this encounter Procedures Procedure Name Priority Date/Time Associated Diagnosis Comments POCT FARA-14 URINE DRUG SCREEN Routine 03/18/2024 9:30 AM EST Uncomplicated opioid dependence (CMS/HCC) documented in this encounter Results * POCT FARA-14 Urine Drug Screen (03/18/2024 9:30 AM EST) THC Negative Cocaine Screen, Urine Negative Opiate Screen, Urine Negative Methamphetamine Screen Urine Negative Amphetamine Screen, Urine Negative Benzodiazepines Screen, Urine Positive Barbiturate Screen, Urine Negative Methadone Screen, Urine Negative Buprenophine Screen, Urine Positive TCA, Urine Negative MDMA Urine Negative ng/mL Oxycodone Screen, Urine Negative Phencyclidine (PCP), Urine Negative Propoxyphene, Urine Negative Fentanyl, Urine Negative Urine Urine specimen obtained by clean catch procedure / Unknown 03/18/2024 9:30 AM EST Latrice Ibrahim MD POINT OF CARE TEST ENTER/EDIT OR DERABLES Final Result documented in this encounter Visit Diagnoses Diagnosis Uncomplicated opioid dependence (CMS/[facility])- Primary Tobacco dependence Tobacco use disorder documented in this encounter Additional Health Concerns Assessment Noted Time PHQ-9 Depression Total Score: 10 07/09/ 024 9:15 AM EDT documented as of this encounter Care Teams Community Liaison Officer Relationship Specialty Start Date End Date Name, MD Ananda [address] [place] [address] PCP - General Family Medicine 06/01/15 documented as of this encounter
--- OUTSIDE RECORDS SUMMARY | 2024-03-29 12:06 | XMS_ITS | Encounter Summary ---
Author Organization [employer] Address [address] [place] [address] Care Team Providers Care Mobile Solutions Architect Name Role Phone Name, Ananda CRANDALL Primary Care Provider [phone] Reason for Visit * Reason Comments Med Refill Encounter Details Date Type Department Care Team ([facility] Contact Info) Description 03/08/2024 Refill [facility] [address] [place], [place] [phone] Name, MD Ananda [address] [place] [address] Chronic obstructive pulmonary disease, unspecified COPD type (CMS/HCC) Social History Tobacco Use Types Packs/Day [...] [facility] [address] [place] [address] Sonali Stubbs, RN [address] [place] [address] 06/04/2024 9:45 AM EDT Office Visit [facility] [address] [place] [address] Natalie Davis OD [address] [place] [address] documented as of this encounter Visit Diagnoses Diagnosis Chronic obstructive pulmonary disease, unspecified COPD type (CMS/HCC) documented in this encounter Additional Health Concerns Assessment Noted Time PHQ-9 Depression Total Score: 10 024 9:15 AM EDT documented as of this encounter Care Teams Mobile Solutions Architect Relationship Specialty Start Date End Date Name, MD Ananda [address] [place] [id number] PCP - General Family Medicine 06/01/15 documented as of this encounter
--- OUTSIDE RECORDS SUMMARY | 2024-03-29 12:06 | XMS_ITS | Encounter Summary ---
Author Organization [employer] Address [address] [place] [address] Care Team Providers Care Supervisor [employer]spring Fabrication Name Role Phone Name, Ananda CRANDALL Primary Care Provider [phone] Encounter Details Date Type Department Care Team (Late Contact Info) Description 05/10/2022 Orders Only [facility] [address] [place] [phone] Alis Zavala, COREY Uncomplicated opioid dependence ([facility]) Social History Tobacco Use Types [...] Description 04/15/2024 9:30 AM EST Clinical Support [facility] [address] [place] [phone] Sonali Stubbs, COREY [address] [place] [address] 06/04/2024 9:45 AM EDT Office Visit [facility] [address] [place] [address], [place] [address] Natalie Davis, OD [address] [place] [address] documented as of this encounter Visit Diagnoses Diagnosis Uncomplicated opioid dependence (CMS/HCC) documented in this encounter Care Teams Supervisor [employer]spring Fabrication Relationship Specialty Start Date End Date Name, MD Ananda [address] [place], [place] [phone] PCP - General Family Medicine 06/01/15 documented as of this encounter
--- OUTSIDE RECORDS SUMMARY | 2024-03-29 12:06 | XMS_ITS | Encounter Summary ---
Author Organization [employer] Address [address] [place] [address] Care Team Providers Care Shrimp Peeling Machine Operator Name Role Phone Name, Ananda CRANDALL Primary Care Provider [phone] Encounter Details Date Type Department Care Team (Latest Contact Info) Description 02/28/2024 Travel Social History Tobacco Use Types Packs/Day [...] Description 04/15/2024 9:30 AM EST Clinical [address] [facility] [address] [place] [address] Sonali Stubbs, RN [address] [place] [address] 06/04/2024 9:45 AM EDT Office [address] [facility] [address] [place] [address] TarkaNatalie, OD [address] [place] [address] documented as of this encounter Visit Diagnoses Not on filedocumented in this encounter Additional Health Concerns Assessment Noted Time PHQ-9 Depression Total Score: 10 024 9:15 AM EDT documented as of this encounter Care Teams Shrimp Peeling Machine Operator Relationship Specialty Start Date End Date Name, MD Ananda [address] [place] [address] PCP - General Family Medicine 06/01/15 documented as of this encounter
--- OUTSIDE RECORDS SUMMARY | 2024-03-29 12:06 | XMS_ITS | Encounter Summary ---
Author Organization [employer] Address [address] [place] [address] Care Team Providers Care Book Mender Name Role Phone Name, Ananda CRANDALL Primary Care Provider [phone] Reason for Visit * Reason Comments Med Refill Encounter Details Date Type Department [facility] Team [facility] Description 03/16/2024 Refill [facility] [address] [place], [place] [phone] Name, MD Ananda [address] [place] [address] Type 2 diabetes mellitus with hyperglycemia, with long-term current use of insulin ([facility]) Social History Tobacco Use Types [...] Description 04/15/2024 9:30 AM EST Clinical Support [facility] [address] [place] [address] Sonali Stubbs, COREY [address] [place] [address] 06/04/2024 9:45 AM EDT Office Visit [facility] [address] [place] [address] Natalie Davis OD [address] [place] [address] documented as of this encounter Visit Diagnoses Diagnosis Type 2 diabetes mellitus with hyperglycemia, with long-term current use of insulin ([facility]) documented in this encounter Additional Health Concerns Assessment Noted Time PHQ-9 Depression Total Score: 024 9:15 AM EDT documented as of this encounter Care Teams Book Mender Relationship Specialty Start Date End Date Name, MD Ananda [address] [place] [address] PCP - General Family Medicine 06/01/15 documented as of this encounter
--- OUTSIDE RECORDS SUMMARY | 2024-03-29 12:06 | XMS_ITS | Encounter Summary ---
Author Organization [employer] Address [address] [facility] [address] [place] [address] Care Team Providers Care Sign Language Teacher Name Role Phone Name, Ananda CRANDALL Primary Care Provider [phone] Reason for Visit * Reason Comments Follow-up Encounter Details Date Type Department Care Team ([facility] Contact Info) Description 02/28/2024 11:00 AM EST Office Visit [facility] MEDICINE [address] [place], [place] [phone] Name, MD Ananda [address] [place] [address] Type 2 diabetes mellitus with hyperglycemia, with long-term current use of insulin ([facility]) (Primary Dx); Chronic obstructive pulmonary disease, unspecified COPD type ([facility]); Healthcare maintenance Social History Tobacco Use Types Packs/Day Years Used Date Smoking Tobacco: Every Day Cigarettes Passive Smoke Exposure: Current Smokeless Tobacco: Never Tobacco Cessation:Ready to Q uit: Not Asked; Counseling Given: Not Answered Alcohol Use Standard Drinks/Week Comments Never 0 [...] AM EDT documented as of this encounter Last Filed Vital Signs Vital Sign Reading Time Taken Comments Blood Pressure 137/83 02/28/2024 10:43 AM EST Pulse 105 02/28/2024 10:43 AM EST Temperature 37.1 ??C (98.7 ??F) 02/28/2024 10:[address] Respiratory Rate 14 02/28/2024 10:43 AM EST Oxygen Saturation - - Inhaled Oxygen Concentration - - Weight 55 kg (121 lb 3.2 oz) 02/28/2024 10:43 AM EST Height 167.6 cm (5' 6 ) 02/28/2024 10:43 AM EST Body Mass Index 19.56 02/28/2024 10:43 AM EST documented in this encounter Progress Notes * Ananda Spain MD - 02/28/2024 11:00 AM EST Images from the original note were not included. Subjective Patient ID: Hubert Rios is a 58 y.o. male who presents for Follow-up. Hubert comes for a follow up visit and he is doing well. Blood sugar is well controlled. He is following with endo at [facility] and has CGM in place. No lows at home He is doing well on Suboxone, he has not used illicits in more than year. He continues smoking cigarettes. He complains of mild cough on and off for the past week. No wheezing, no fevers, no chest pain, no sore throat, no shortness of breath. He is using his inhalers as prescribed. He asked me to refill albuterol for his nebulizer at home and I agreed. He is up-to-date with COVID, PCV 20 and flu vaccine. Review of Systems Constitutional: Negative for chills, fatigue and fever. HENT: Negative for sore throat. Respiratory: Positive for cough. Negative for chest tightness and shortness of breath. Cardiovascular: Negative for chest pain, palpitations and leg swelling. Gastrointestinal: Negative for abdominal pain and blood in stool. Visit Vitals BP 137/83 (BP Location: Left arm, Patient Position: Sitting, BP Cuff Size: Adult) Pulse 105 Temp 98.7 ??F (37.1 ??C) (Oral) Resp 14 Ht 5' 6 (1.676 m) Wt 121 lb 3.2 oz (55 kg) BMI 19.56 kg/m?? Smoking Status Every Day BSA 1.6 m?? Objective Physical Exam Constitutional: Appearance: Normal appearance. Cardiovascular: Rate and Rhythm: Normal rate and regular rhythm. Heart sounds: No murmur heard. Pulmonary: Effort: Pulmonary effort is normal. No respiratory distress. Breath sounds: No wheezing, rhonchi or rales. Abdominal: Palpations: Abdomen is soft. Tenderness: There is no abdominal tenderness. Musculoskeletal: Right lower leg: No edema. Left lower leg: No edema. Neurological: Mental Status: He is alert. Lab Results Component Value Date HGBA1C 8.1 (A) 02/28/2024 HGBA1C 8.5 (A) 11/20/2023 HGBA1C 9.0 (A) 07/24/2023 HGBA1C 8.2 (A) 04/23/2023 HGBA1C 8.6 (A) 01/21/2023 HGBA1C 9.0 (A) 10/09/2022 HGBA1C 8.7 (H) 02/13/2022 Lab Results Component Value Date GLUCOSE 132 (H) 02/18/2024 NA 141 08/23/2023 K 4.2 08/23/2023 CO2 27 08/23/2023 CL 105 08/23/2023 BUN 18 (H) 08/23/2023 CREATININE 0.78 08/23/2023 Albumin, Random Urine W/Creatinine Order: [id number] Status: Final result Visible to patient: No (inaccessible in MyChart) 0 Result Notes 1 HM Topic Component Ref Range & Units 9 mo ago 2 yr ago Creatinine, Urine mg/dL 156.10 Microalbumin Urine mg/L 45.0 3.3 R, CM Microalbum Creatinine Ratio Ur <30 ug/mg cr 28.8 Current Outpatient Medications on File Prior to Visit Medication Sig Dispense Refill albuterol (Ventolin HFA) 108 (90 Base) MCG/ACT [...] tablet by mouth at bedtime. Continuous Glucose Hearing Consultant (FreeStyle Kasey 2 [place]) device Scan sensor every 8 hours 1 each 0 Continuous Glucose Sensor (FreeStyle Kasey 2 Sensor) [facility] USE DIRECTED TO TEST BLOOD SUGAR 8 [...] 8 (eight) hours. Lancets (OneTouch Delica Plus [id number]) [facility] TEST BLOOD SUGAR THREE TIMES DAILY Misc. Devices (Pulse Oximeter For Finger) misc 1 each 2 times daily. Call [facility] if consistently < 95% 1 each 0 [...] INJECT 8 UNITS SUBCUTANEOUSLY EVERY DAY Umeclidinium Evergreen (Incruse Ellipta) 62.5 MCG/ACT aerosol powder Inhale 1 Inhalation Once per day. 30 each 3 venlafaxine XR (Effexor XR) 150 MG 24 hr capsule Take 1 capsule by mouth in the morning. Take with 75 mg capsule venlafaxine XR (Effexor XR) 75 MG 24 hr capsule Take 1 capsule by mouth in the morning. Take with 150 mc capsule No current facility-administered medications on file prior to visit. Assessment/Plan Diagnoses and all orders for this visit: Type 2 diabetes mellitus with hyperglycemia, with long-term current use of insulin (CMS/HCC) Comments: Continue management as recommended by his vault mechanic. He has appointment for eye exam in March. Check fasting blood work listed below. Orders: - POCT Glucose - POCT HGB A1C - CBC auto differential; Future - Comprehensive Metabolic Panel; Future - Lipid Panel, Standard; Future - Hemoglobin A1c; Future - Hepatitis B surface antigen, EIA; Future - Hepatitis B Surface Antibody, Qualitative; Future - Hepatitis A Antibody, Total; Future Chronic obstructive pulmonary disease, unspecified COPD type (CMS/HCC) Comments: He is recommended to quit smoking. I prescribed albuterol solution for his nebulizer. Continue using his inhalers daily. Orders: - CBC auto differential; Future - Comprehensive Metabolic Panel; Future - Lipid Panel, Standard; Future - Hemoglobin A1c; Future - Hepatitis A Antibody, Total; Future Healthcare maintenance Comments: I will verify immunity for hepatitis A and B. He was vaccinated many years ago for hepatitis A and B and we do not have records of his vaccinations. Other orders - albuterol (2.5 MG/3ML) 0.083% nebulizer solution; Take 3 mL (2.5 mg) by nebulization every 6 (six) hours if needed for wheezing. documented in this encounter Plan of Treatment Upcoming Encounters Date Type Department Care Team (Late st Contact Info) Description 04/15/2024 9:30 AM EST Clinical Support [facility] MEDICINE [address] [place] [address] Sonali Stubbs, COREY [address] [place] [address] 06/04/2024 9:45 AM EDT Office Visit [facility] OPTOMETRY [address] [place] [address] Natalie Davis, MADIE [address] [place] [address] Scheduled Orders Name Type Priority Associated Diagnoses Orde r Schedule CBC auto differential Lab Routine Type 2 diabetes mellitus with hyperglycemia, with long-term current use of insulin (CMS/HCC) Chronic obstructive pulmonary disease, unspecified COPD type (CMS/HCC) Expected: 02/28/2024 (Approximate), Expires: 02/27/2025 Comprehensive Metabolic Panel Lab Routine Type 2 diabetes mellitus with hyperglycemia, with long-term current use of insulin (CMS/HCC) Chronic obstructive pulmonary disease, unspecified COPD type (CMS/HCC) Expected: 02/28/2024 (Approximate), Expires: 02/27/2025 Lipid Panel, Standard Lab Routine Type 2 diabetes mellitus with hyperglycemia, with long-term current use of insulin (CMS/HCC) Chronic obstructive pulmonary disease, unspecified COPD type (CMS/HCC) Expected: 02/28/2024 (Approximate), Expires: 02/27/2025 Hemoglobin A1c Lab Routine Type 2 diabetes mellitus with hyperglycemia, with long-term current use of insulin (CMS/HCC) Chronic obstructive pulmonary disease, unspecified COPD type (CMS/HCC) Expected: 02/28/2024 (Approximate), Expires: 02/27/2025 Hepatitis B surface antigen, EIA Lab Routine Type 2 diabetes mellitus with hyperglycemia, with long-term current use of insulin ([facility]) Expected: 02/28/2024 (Approximate), Expires: 02/27/2025 Hepatitis B Surface Antibody, Qualitative Lab Routine Type 2 diabetes mellitus with hyperglycemia, with long-term current use of insulin (CMS/HCC) Expected: 02/28/2024 (Approximate), Expires: 02/27/2025 Hepatitis A Antibody, Total Lab Routine Type 2 diabetes mellitus with hyperglycemia, with long-term current use of insulin (CMS/HCC) Chronic obstructive pulmonary disease, unspecified COPD type (CMS/HCC) Expected: 02/28/2024 (Approximate), Expires: 02/27/2025 documented as of this encounter Procedures Procedure Name Priority Date/Time Associated Diagnosis Comments POCT GLYCATED HEMOGLOBIN, TOTAL Routine 02/28/2024 10:44 AM EST Type 2 diabetes mellitus with hyperglycemia, with long-term current use of insulin (CMS/HCC) POCT GLUCOSE Routine 02/28/2024 10:43 AM EST Type 2 diabetes mellitus with hyperglycemia, with long-term current use of insulin (CMS/HCC) documented in this encounter Results * (ABNORMAL) POCT HGB A1C (02/28/2024 10:44 AM EST) Hemoglobin A1C 8.1(A) 4.0 - 6.0 % QC Media Lot # [id number] Lot# Expiration Date 8959,[id number] Blood 02/28/2024 10:4 4 AM EST Ananda Spain MD POINT OF CARE TEST ENTER/EDIT OR DERABLES Final Result * (ABNORMAL) POCT Glucose (02/28/2024 10:43 AM EST) Pathologist [facility] Glucose Blood, POC 209(A) 60 - 200 mg/dL QC Media Lot # [id number] Lot# Expiration Date [id number] Blood Capillary blood specimen / Unknown 02/28/2024 10:43 AM EST Ananda Spain MD POINT OF CARE TEST ENTER/EDIT OR DERABLES Final Result documented in this encounter Visit Diagnoses Diagnosis Type 2 diabetes mellitus with hyperglycemia, with long-term current use of insulin ([facility])- Primary Chronic obstructive pulmonary disease, unspecified COPD type ([facility]) Healthcare maintenance documented in this encounter Additional Health Concerns Assessment Noted Time PHQ-9 Depression Total Score: 10 024 9:15 AM EDT documented as of this encounter Care Teams Sign Language Teacher Relationship Specialty Start Date End Date Name, MD Ananda [address] [place] [address] PCP - General Family Medicine 06/01/15 documented as of this encounter
--- OUTSIDE RECORDS SUMMARY | 2024-03-29 12:06 | XMS_ITS | Encounter Summary ---
Author Organization [employer] Address [address] [facility] [address] [place] [address] Care Team Providers Care Sewer Bricklayer Name Role Phone Name, Ananda CRANDALL Primary Care Provider [phone] Reason for Visit * Reason Comments Med Refill Encounter Details Date Type Department Care Team ([facility] st Contact Info) Description 03/05/2024 Refill [facility] MEDICINE [address] [place], [place] [phone] Name, MD Ananda [address] [place], [place] [phone] Papillary renal cell carcinoma (CMS/HCC) Social History Tobacco Use Types Packs/Day [...] 04/15/2024 9:30 AM EST Clinical Support [facility] MEDICINE [address] [place] [address] Sonali Stubbs, RN [address] [place] [address] 06/04/2024 9:45 AM EDT Office Visit [facility] OPTOMETRY [address] [place] [address] Natalie Davis, OD [address] [place] [address] documented as of this encounter Visit Diagnoses Diagnosis Papillary renal cell carcinoma (CMS/HCC) documented in this encounter Additional Health Concerns Assessment Noted Time PHQ-9 Depression Total Score: 10 024 9:15 AM EDT documented as of this encounter Care Teams Sewer Bricklayer Relationship Specialty Start Date End Date Name, MD Ananda [address] [place] [address] PCP - General Family Medicine 06/01/15 documented as of this encounter
--- OUTSIDE RECORDS SUMMARY | 2024-03-29 12:06 | XMS_ITS | Encounter Summary ---
Author Organization [employer] Address [address] [facility] [address] [place] [address] Care Team Providers Care Title Department Manager Name Role Phone Name, Ananda CRANDALL Primary Care Provider [phone] Reason for Visit * Reason Comments Med Refill Encounter Details Date Type Department Care Team ([facility] Contact Info) Description 03/21/2024 Refill [facility] MEDICINE [address] [place], [place] [phone] Name, MD Ananda [address] [place] [address] Chronic obstructive pulmonary disease, unspecified COPD type [...] Clinical Support [facility] MEDICINE [address] [place] [address] Sonali Stubbs, RN [address] [place] [address] 06/04/2024 9:45 AM EDT Office Visit [facility] OPTOMETRY [address] [place] [address] Natalie Davis OD [address] [place] [address] documented as of this encounter Visit Diagnoses Diagnosis Chronic obstructive pulmonary disease, unspecified COPD type (CMS/HCC) documented in this encounter Additional Health Concerns Assessment Noted Time PHQ-9 Depression Total Score: 10 024 9:15 AM EDT documented as of this encounter Care Teams Title Department Manager Relationship Specialty Start Date End Date Name, MD Ananda [address] [place] [id number] PCP - General Family Medicine 06/01/15 documented as of this encounter
--- OUTSIDE RECORDS SUMMARY | 2024-03-29 12:06 | XMS_ITS | Encounter Summary ---
Author Organization [employer] Address [address] [facility] [facility] [address] [place] [address] Care Team Providers Care Art Class Model Name Role Phone Name, Ananda CRANDALL Primary Care Provider [phone] Encounter Details Date Type Department Care Team (Latest Contact Info) Description 03/05/2024 Travel Social History Tobacco Use Types Packs/Day [...] Description 04/15/2024 9:30 AM EST Clinical Support [facility] MEDICINE [address] [place] [address] Sonali Stubbs, RN [address] [place] [address] 06/04/2024 9:45 AM EDT Office Visit [facility] OPTOMETRY [address] [place] [address] TarkaNatalie, OD [address] [place] [address] documented as of this encounter Visit Diagnoses Not on filedocumented in this encounter Additional Health Concerns Assessment Noted Time PHQ-9 Depression Total Score: 10 024 9:15 AM EDT documented as of this encounter Care Teams Art Class Model Relationship Specialty Start Date End Date Name, MD Ananda [address] [place] [address] PCP - General Family Medicine 06/01/15 documented as of this encounter
--- OUTSIDE RECORDS SUMMARY | 2024-03-29 12:07 | XMS_ITS | Encounter Summary ---
Author Organization [employer] Address [address] [facility] [address] [place] [address] Care Team Providers Care Metal Mine Inspector Name Role Phone Name, Ananda CRANDALL Primary Care Provider [phone] Encounter Details Date Type Department Care Team (Latest Contact Info) Description 01/09/2021 Abstract [facility] CONVERSIONS Dental, Provider, DDS Social History Tobacco Use Types Packs/Day Years Used Date Smoking Tobacco: Never Assessed Sex and Gender Information Value Date Recorded Sex Assigned at Male 01/01/2022 10:14 AM EDT Legal Sex Male 10:14 AM EDT Gender Identity Male 01/01/2022 10:14 AM EDT Sexual Orientation Straight 01/01/2022 10 :14 AM EDT documented as of this encounter Plan of Treatment Upcoming Encounters Date Type Department Care Team (Late st Contact Info) Description 04/15/2024 9:30 AM EST Clinical Support [facility] MEDICINE [address] [place] [address] Sonali Stubbs, RN [address] [place] [address] 06/04/2024 9:45 AM EDT Office Visit [facility] OPTOMETRY [address] [place] [address] Natalie Davis OD [address] [place] [address] documented as of this encounter Visit Diagnoses Not on filedocumented in this encounter Care Teams Metal Mine Inspector Relationship Specialty Start Date End Date Name, MD Ananda [address] [place] [address] PCP - General Family Medicine 06/01/15 documented as of this encounter
--- OUTSIDE RECORDS SUMMARY | 2024-03-29 12:07 | XMS_ITS | Encounter Summary ---
Author Organization [employer] Address [address] [facility] [address] [place] [address] Care Team Providers Care Slate Worker Name Role Phone Name, Ananda CRANDALL Primary Care Provider [phone] Encounter Details Date Type Department Care Team ([facility] Contact Info) Description 08/13/2022 Abstract [facility] MEDICINE [address] [place] [phone] Name, MD Ananda [address] [place] [address] Social History Tobacco Use Types Packs/Day Years [...] suspected to have Coronavirus/COVID-19? No / Unsure 08/08/2022 9:06 AM EDT documented as of this encounter Plan of Treatment Upcoming Encounters Date Type Department Care Team ([facility] Contact Info) Description 04/15/2024 9:30 AM EST Clinical Support [facility] MEDICINE [address] [place] [address] Sonali Stubbs RN [address] [place] [address] 06/04/2024 9:45 AM EDT Office Visit [facility] OPTOMETRY [address] [place] [address] Griseldaclara Natalie, OD [address] [place] [address] documented as of this encounter Procedures Procedure Name Priority Date/Time Associated Diagnosis Comments HM COLONOSCOPY Routine 08/16/2015 1:52 PM EDT documented in this encounter Results * Hm Colonoscopy (08/16/2015 1:52 PM EDT) Colonoscopy Normal Normal Narrative Gloria Álvarez - 08/16/2015 1:52 PM EDT Recommended 10 year follow up Historical Provider HEALTH MAINTENANCE Final Result documented in this encounter Visit Diagnoses Not on filedocumented in this encounter Care Teams Slate Worker Relationship Specialty Start Date End Date Name, MD Ananda [address] [place] [address] PCP - General Family Medicine 06/01/15 documented as of this encounter
--- OUTSIDE RECORDS SUMMARY | 2024-03-29 12:07 | XMS_ITS | Encounter Summary ---
Author Organization [employer] Address [address] [place] [address] Care Team Providers Care Braille Proofreader Name Role Phone Name, Ananda CRANDALL Primary Care Provider [phone] Reason for Visit * Reason Onset Date Comments Appointment 09/06/2022 Encounter Details Date Type Department Care Team ([facility] Contact Info) Description 09/06/2022 Telephone [facility] ADULT DENTAL [address] [place], [place] [address] Kelvin Haque, LENNY [address] [place] [address] Appointment Social History Tobacco Use Types Packs/Day [...] suspected to have Coronavirus/COVID-19? No / Unsure 09/05/2022 9:02 AM EDT documented as of this encounter Miscellaneous Notes * Telephone Encounter - Joanie Gonzalez - 09/06/2022 9:38 AM EDT Patient called in because he had a medical emergency and was unable to schedule his next partial visit due to a medical emergency and had to have emergency surgery. He is checking in to see if case is back from lab so that he can be scheduled to continue treatment documented in this encounter Plan of Treatment Upcoming Encounters Date Type Department Care Team (Late st Contact Info) Description 04/15/2024 9:30 AM EST Clinical Support [facility] MEDICINE [address] [place] [address] Sonali Stubbs, RN [address] [place] [address] 06/04/2024 9:45 AM EDT Office Visit [facility] OPTOMETRY [address] [place], [place] [phone] Natalie Davis, OD [address] [place] [address] documented as of this encounter Visit Diagnoses Not on filedocumented in this encounter Care Teams Braille Proofreader Relationship Specialty Start Date End Date Name, MD Ananda [address] [place] [address] PCP - General Family Medicine 06/01/15 documented as of this encounter
--- OUTSIDE RECORDS SUMMARY | 2024-03-29 12:07 | XMS_ITS | Clinical Summary ---
Author Organization [employer] Address [address] [place] [address] Care Team Providers Care Ocean Freight Manager Name Role Phone Name, Ananda CRANDALL Primary Care Provider [phone] Allergies No known active allergies Medications docusate sodium (Colace) 100 MG capsule Take 1 capsule by mouth at bed time. 021 Active glucose blood (Atlas Health TechnologiesTouch Verio) test strip every 8 (eight) hours. 022 Active nicotine polacrilex (Commit) 2 MG lozenge take 1 tablet by oral route every 8 hours dissolved slowly in the mouth as needed for cigarette craving 021 Active Propylene Glycol-Glycerin 1-0.3 % solution Use 2 gtt QID prn eye itchiness as needed 021 Active ramelteon (Rozerem) 8 MG tablet Take 1 tablet by mouth at bed time. Active Misc. Devices (Pulse Oximeter For Finger) miscIndications :COPD exacerbation (CMS/HCC) 1 each 2 times daily. Call [facility] if consistently < 95% 1 each 023 Active Alcohol Swabs (Alcohol Prep) 70 % pads USE FOUR TIMES DAILY DIRECTED 023 Active clonazePAM (KlonoPIN) 1 MG tablet Take 1 mg by mouth 2 times daily. 023 Active Lancets (Atlas Health TechnologiesTouch Delica Plus [id number]) [facility] TEST BLOOD SUGAR THREE TIMES DAILY 023 Active naloxone (Narcan) 4 mg/0.1 mL nasal spray Administer 1 spray (4 mg) into affected nostril(s) if needed for opioid reversal. 2 each 023 Active clonazePAM (KlonoPIN) 2 MG tablet Take 1 tablet by mouth at bedtime. 023 Active venlafaxine XR (Effexor XR) 150 MG 24 hr capsule Take 1 capsule by mouth in the morning. Take with 75 mg capsule 023 Active venlafaxine XR (Effexor XR) 75 MG 24 hr capsule Take 1 capsule by mouth in the morning. Take with 150 mc capsule 023 Active budesonide (Pulmicort) 1 MG/2ML nebulizer solutionIndicat ions:Chronic obstructive pulmonary disease, unspecified COPD type ([facility]) INHALE 1 AMPULE USING A NEBULIZER ONCE DAILY. RINSE MOUTH AFTER USING. 60 mL 3 023 Active glucose (Glutose 15) 40 % gel oral gelIndications: Type 2 diabetes mellitus without complication, with long-term current use of insulin ([facility]) TAKE 15 GRAMS BY MOUTH NEEDED FOR LOW BLOOD SUGAR 37.5 g 1 023 Active aspirin (Aspirin Low Dose) 81 MG EC tabletIndicatio ns:Pain of left leg TAKE 1 TABLET BY MOUTH DAILY IN THE MORNING 90 tablet 023 Active NovoLOG FLEXPEN 100 UNIT/ML penIndications: Diabetes mellitus type 2 in nonobese ([facility]) INJECT SUBCUTANEOUSLY THREE TIMES DAILY PER SLIDING SCALE: BLOOD SUGAR < 200: DO NOT USE, 201-250 = 2 UNITS, 251-300 = 4U, 301-350 = 8U, > 351 = 10U 15 mL 4 024 Active busPIRone (Buspar) 15 MG tablet Take 15 mg by mouth 2 times daily. 024 Active Continuous Glucose Sensor (FreeStyle Kasey 2 Sensor) [facility] [place] USE DIRECTED TO TEST BLOOD SUGAR 8 TIMES PER DAY 2 each 024 Active Continuous Glucose Medicaid Billing Specialist (FreeStyle Kasey 2 [place]) device Scan sensor every 8 hours 1 each 024 Active Multiple Vitamin (Multivitamin) tablet Take 1 tablet by mouth Once daily. TAKE 1 TABLET BY MOUTH EVERY DAY WITH FOODTAKE 1 TABLET BY MOUTH EVERY DAY WITH FOOD 90 tablet 3 024 2024 Active nicotine (Nicoderm CQ) 7 MG/24HR patch Place 1 patch on the skin 1 (one) time each day at the same time. 30 patch 024 Active senna (Senokot) 8.6 MG tabletIndicatio ns:Constipation , unspecified constipation type TAKE 2 TABLETS BY MOUTH EVERY DAY NEEDED FOR CONSTIPATION 60 tablet 5 024 Active Tresiba FlexTouch 100 UNIT/ML injection INJECT 8 UNITS SUBCUTANEOUSLY EVERY DAY 024 Active albuterol (Ventolin HFA) 108 (90 Base) MCG/ACT inhalerIndicati ons:Chronic obstructive pulmonary disease, unspecified COPD type ([facility]) INHALE 2 PUFFS BY MOUTH EVERY 4 TO 6 HOURS NEEDED 18 g 5 024 Active montelukast (Singulair) 10 MG tabletIndicatio ns:Seasonal allergic rhinitis, unspecified trigger TAKE 1 TABLET BY MOUTH EVERY DAY AT BEDTIME 90 tablet 1 024 Active Pentips 32G X 4 MM miscIndications :Type 2 diabetes mellitus without complication, unspecified whether manager long term care insulin use ([facility]) USE DIRECTED FOUR TIMES DAILY 100 each 5 024 Active glucose blood (FreeStyle Precision Isak Test) test stripIndication s:Type 2 diabetes mellitus with hyperglycemia, with long-term current use of insulin ([facility]) 1 each by Other route 3 times daily. 100 each 3 024 Active Fluticasone-Bowen meterol 100-50 MCG/ACT aerosol powder INHALE 1 PUFF BY MOUTH TWICE DAILY 60 each 2 024 Active albuterol (2.5 MG/3ML) 0.083% nebulizer solution Take 3 mL (2.5 mg) by nebulization every 6 (six) hours if needed for wheezing. 75 mL 11 024 2024 Active Acetaminophen Extra Strength 500 MG tabletIndicatio ns:Papillary renal cell carcinoma ([facility]) TAKE 1 TABLET BY MOUTH THREE TIMES DAILY 90 tablet 2 025 Active Suboxone 8-2 MG SL filmIndications :Uncomplicated opioid dependence ([facility]) Place 3 Film under the tongue Once per day for 28 days. 84 Film 025 2024 Active atorvastatin (Lipitor) 40 MG tabletIndicatio ns:Type 2 diabetes mellitus with hyperglycemia, with long-term current use of insulin (CMS/HCC) TAKE 1 TABLET BY MOUTH EVERY DAY DIRECTED 90 tablet 025 Active Incruse Ellipta 62.5 MCG/ACT aerosol powderIndicatio ns:Chronic obstructive pulmonary disease, unspecified COPD type (CMS/HCC) INHALE 1 PUFF BY MOUTH EVERY DAY AT THE SAME TIME RINSE MOUTH AFTER USING 30 each 3 025 Active atorvastatin (Lipitor) 40 MG tabletIndicatio ns:Type 2 diabetes mellitus with hyperglycemia, with long-term current use of insulin (CMS/HCC) Take 1 tablet (40 mg) by mouth Once per day. as directed 90 tablet 024 2024 Discontinued Umeclidinium [place] (Incruse Ellipta) 62.5 MCG/ACT aerosol powderIndicatio ns:Chronic obstructive pulmonary disease, unspecified COPD type (CMS/HCC) Inhale 1 Inhalation Once per day. 30 each 3 024 2024 Discontinued Acetaminophen Extra Strength 500 MG tabletIndicatio ns:Papillary renal cell carcinoma (CMS/HCC) Take 500 mg by mouth 3 times daily. 90 tablet 2 024 2024 Discontinued Suboxone 8-2 MG SL filmIndications :Uncomplicated opioid dependence (CMS/HCC) Place 3 Film under the tongue Once per day for 28 days. 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 Overview (02/28/2024): Prior cryotherapy in 2014 - for papillary cell carcinoma - 01/24 repeat cryotherapy of 2.3 cm upper pole left renal mass Imaging - 11/24 MRI 2.3 cm T2 hypointense left upper pole renal mass, 3 small of T2 hyperintense renal lesions on right side - 08/25 MRI shows shrinkage of initial lesion with cryotherapy effect (last Cryotherapy was 08/2023) He follows with Dr Mcdaniel with MRI Q 6 months Varicose veins of left lower extremity with infl ammation 10/01/2022 Vitamin D deficiency 10/01/2022 Edentulous maxilla 07/26/2022 Dental caries 06/20/2022 Chronic obstructive lung disease 02/01/2022 Adenomatous polyp of colon 02/01/2022 Pulmonary Mycobacterium avium complex (MAC) infe ction 02/01/2022 Contusion of chest 10/24/2017 Chronic low back pain 11/07/2016 Lung mass 11/07/2016 Overview (10/09/2022): CT chest from 2018: 1. Mild pulmonary emphysema. 2. Old granulomatous disease. The calcified and noncalcified nodules are stable compared to 10/30/2016. No interval development of a suspicious nodule, mass or lymphadenopathy. CT chest 2019: 1. No evidence of pulmonary emboli. 2. Geographic ground-glass opacities. Some have resolved since the prior study and there are multiple new areas present. 3. Evidence of previous granulomatous disease with calcified mediastinal nodes and left lower lobe calcified large granuloma. 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 Opioid dependence 08/15/2011 Assessment & Plan (03/18/2024 5:16 AM EST): - in maintenance stage, long-term - BZD is prescribed by psychiatrist - No opi / fen in [place] for many years - continue current medication dose and visit frequency - continue education on overdose prevention, drug use trends in the community - continue current recovery support and recovery effort Assessment & Plan (02/19/2024 5:38 AM EST): - in maintenance stage, long-term - BZD is prescribed by psychiatrist - No opi / fen in [place] for many years - continue current medication dose and visit frequency - continue education on overdose prevention, drug use trends in the community - continue current recovery support and recovery effort Assessment & Plan (08/07/2023 4:51 AM EDT): - in maintenance stage, long-term, celebrating 14 years in our program today - BZD is prescribed by psychiatrist - No opi / fen in [place] for many years - continue current medication dose and visit frequency - continue education on overdose prevention, drug use trends in the community - continue current recovery support and recovery effort Assessment & Plan (07/10/2023 10:00 AM EDT): - in maintenance stage, long-term, celebrating 14 years in our program today - BZD is prescribed by psychiatrist - No opi / fen in [place] for many years - continue current medication dose and visit frequency - continue education on overdose prevention, drug use trends in the community - continue current recovery support and recovery effort Assessment & Plan (06/12/2023 4:50 AM EDT): - in maintenance stage, long-term - BZD is prescribed by psychiatrist - No opi / fen in [place] for many years - continue current medication dose and visit frequency - continue education on overdose prevention, drug use trends in the community - continue current recovery support and recovery effort Assessment & Plan (05/15/2023 5:04 AM EDT): - in maintenance stage, long-term - BZD is prescribed by psychiatrist - No opi / fen in [place] for many years - continue current medication dose and visit frequency - continue education on overdose prevention, drug use trends in the community - continue current recovery support and recovery effort Assessment & Plan (04/16/2023 4:58 PM EST): - in maintenance stage, long-term - BZD is prescribed by psychiatrist - No opi / fen in [place] for many years - continue current medication dose and visit frequency - continue education on overdose prevention, drug use trends in the community - continue current recovery support and recovery effort Assessment & Plan (02/19/2023 10:42 PM EST): - in maintenance stage, long-term - BZD is prescribed by psychiatrist - No opi / fen in [place] for many years - continue current medication dose and visit frequency - continue education on overdose prevention, drug use trends in the community - continue current recovery support and recovery effort Assessment & Plan (01/30/2023 5:02 AM EST): - in maintenance stage, long-term - BZD is prescribed by psychiatrist - No opi / fen in [place] for many years - continue current medication dose and visit frequency - continue education on overdose prevention, drug use trends in the community - continue current recovery support and recovery effort Assessment & Plan (10/03/2022 9:22 AM EDT): - in maintenance stage, long-term - BZD is prescribed by psychiatrist - No opi / fen in [place] for many years - continue current medication dose and visit frequency - continue education on overdose prevention, drug use trends in the community - continue current recovery support and recovery effort Assessment & Plan (06/13/2022 12:22 PM EDT): - in maintenance stage, long-term - BZD is prescribed by psychiatrist - No opi / fen in [place] for many years - continue current medication dose and visit frequency - continue education on overdose prevention, drug use trends in the community - continue current recovery support and recovery effort Seborrheic dermatitis 08/15/2011 Tobacco dependence 08/15/2011 Assessment & Plan (03/18/2024 5:16 AM EST): - slowly cutting down - patient is interested in medication assisted treatment and will consult his PCP at next visit - continue current effort Assessment & Plan (08/07/2023 4:51 AM EDT): - slowly cutting down - patient is interested in medication assisted treatment and will consult his PCP at next visit - continue current effort Assessment & Plan (06/12/2023 4:50 AM EDT): - slowly cutting down - patient is interested in medication assisted treatment and will consult his PCP at next visit - continue current effort Assessment & Plan (05/15/2023 9:27 AM EDT): - slowly cutting down - patient is interested in medication assisted treatment and will consult his PCP at next visit - continue current effort Backache 08/01/2011 Mood disorder 08/01/2011 Cognitive disorder 08/31/2009 T2DM (type 2 diabetes mellitus) 07/23/2007 Resolved Problems Problem Noted Date Diagnosed Date Resolved Date Mass of left lower leg 10/01/202207/23 Renal neoplasm 10/01/2022 07/24/2023 Disorder of abdomen 02/01/2022 07/24/19 Abdominal wall bulge 02/01/2022 024 Rib pain 08/01/2017 07/24/2023 Rib lesion 09/21/2016 08/29/2022 Wheezing 08/08/2016 08/29/2022 Encounters Date Type Department Care Team Description 03/29/2024 Orders Only GENERIC EXTERNAL DATA DEPARTMENT Provider, Generic External Data 03/21/2024 Refill [facility] [address] [place] [address] Ananda Spain MD Chronic obstructive pulmonary disease, unspecified COPD type ([facility]) 03/18/2024 9:00 AM EST Clinical Support [facility] [address] [place] [address] Sonali Stubbs, COREY Uncomplicated opioid dependence ([facility]) (Primary Dx); Tobacco dependence 03/18/2024 Travel 03/16/2024 Refill [facility] [address] [place] [address] Ananda Spain MD Type 2 diabetes mellitus with hyperglycemia, with long-term current use of insulin ([facility]) 03/11/2024 Refill [facility] [address] [place] [address] Sonali Stubbs, COREY Uncomplicated opioid dependence ([facility]) 03/11/2024 Telephone [facility] [address] [place] [address] Ananda Spain MD Durable Medical Equipment 03/08/2024 Refill [facility] [address] [place] [address] Ananda Spain MD Chronic obstructive pulmonary disease, unspecified COPD type ([facility]/HCC) 03/05/2024 9:45 AM EST Office Visit [facility] [address] [place] [address] Natalie Davis, OD Type 2 diabetes mellitus without ophthalmic manifestations ([facility]) (Primary Dx); Other specified disorders of choroid; Retinal scar of left eye; Regular astigmatism, bilateral; Reduced visual acuity 03/05/2024 [facility]ill [facility] [place] [place] [address] Ananda Spain MD Papillary renal cell carcinoma ([facility]) 03/05/2024 Travel 02/28/2024 11:00 AM EST Office Visit [facility] [place] [id number] Ananda Spain MD Type 2 diabetes mellitus with hyperglycemia, with long-term current use of insulin ([facility]) (Primary Dx); Chronic obstructive pulmonary disease, unspecified COPD type ([facility]); Healthcare maintenance 02/28/2024 Telephone [facility] [place] [address] Ananda Spain MD Durable Medical Equipment (wipes) 02/28/2024 Travel 02/27/2024 Travel 02/25/2024 Telephone [facility] [place] [address] Crystal Stevens MA Chart Prep 02/19/2024 9:30 AM EST Office Visit [facility] [place] [address] Latrice Ibrahim MD Uncomplicated opioid dependence ([facility]) (Primary Dx) 02/19/2024 Travel 02/19/2024 Refill [facility] [place] [address] Ananda Spain MD 02/18/2024 Orders Only GENERIC EXTERNAL DATA DEPARTMENT Provider, Generic External Data 02/12/2024 Refill [facility] [place] [address] Sonali Stubbs, COREY Uncomplicated opioid dependence ([facility]/HCC) 01/28/2024 Telephone [facility] [place] [address] Evelyn Reeves, COREY 01/22/2024 9:30 AM EST Clinical Support [address] [address] Maya Jolly RN Uncomplicated opioid dependence ([facility]) (Primary Dx) 01/22/2024 Patient Outreach [address] [id number] Osiel Mondragon 01/22/2024 Travel 01/17/2024 Telephone [facility] [address] [place] [address] Name, MD James Malave 01/15/2024 Refill [facility] [address] [place] [address] Sonali Stubbs, COREY Uncomplicated opioid dependence ([facility]) 01/06/2024 Refill [facility] [address] [place], [place] [phone] Kim Montez, COREY Type 2 diabetes mellitus with hyperglycemia, with long-term current use of insulin ([facility]) (Primary Dx) from Last 3 Months Immunizations Name Administration Dates Next Due Hep A, Adult 05/11/2009 Influenza injectable quadriv alent preservative free 01/21/2023,01/02/2022,02/10/2021,03/07,01/13/2019,01/11/2018 Influenza, Split (incl. aba fied surface antigen) 12/24/2012,11/06/2011 Influenza, seasonal, injecta ble, preservative free 11/20/2023 Kambit SARS-CoV-2 Vaccination 05/18/2020 Pfizer Covid-19 Vaccine 12+ 02/10/2021 Pneumococcal Conjugate PCV 20 01/21/2023 Pneumococcal Polysaccharide PPSV23 05/25/2011 Td (adult), 5 Lf tetanus tox oid, preservative free, adsorbed 08/14/2014 Tdap 05/25/2011 Zoster, Recombinant 01/11/2018 Social History Tobacco Use Types Packs/Day Years [...] Orientation Straight 01/01/2022 10 :14 AM EDT Last Filed Vital Signs Vital Sign Reading Time Taken Comments Blood Pressure 137/83 02/28/2024 10:43 AM EST Pulse 105 02/28/2024 10:43 AM EST Temperature 37.1 ??C (98.7 ??F) 02/28/2024 10:[address] Respiratory Rate 14 02/28/2024 10:43 AM EST Oxygen Saturation 96% 11/20/2023 10:50 AM EDT Inhaled Oxygen Concentration - - Weight 55 kg (121 lb 3.2 oz) 02/28/2024 10:43 AM EST Height 167.6 cm (5' 6 ) 02/28/2024 10:43 AM EST Body Mass Index 19.56 02/28/2024 10:43 AM EST Plan of Treatment Upcoming Encounters Date Type Department Care Team (Late st Contact Info) Description 04/15/2024 9:30 AM EST Clinical Support [facility] [address] [place] [address] Sonali Stubbs, COREY [address] [place] [address] 06/04/2024 9:45 AM EDT Office Visit [facility] [address] [place] [address] Natalie Davis, OD [address] [place] [address] Health Maintenance Due Date Last Done Comments CT Colonography 1966 Dental Oral Exam 1966 Dental Prophylaxis 1966 Dental X-Ray: Bitewings 1966 Dental X-Ray: Full Mouth 1966 FIT DNA/Cologuard 1966 FIT 1966 FOBT 1966 Sigmoidoscopy 1966 Alcohol/Substance Use Screening 1978 Hepatitis B Vaccines (1 of 3 - 19+ 3-dose series) 1985 Hepatitis A Vaccines (2 of 2 - Risk 2-dose series) 11/11/2009 05/11/2009 Zoster Vaccines (2 of 2) 03/08/2018 01/11/2018 Colonoscopy 08/15/2020 08/16/2015 Colorectal Cancer Screening 08/15/2020 COVID-19 Vaccine (2023- season) 2023 02/10/2021, 05/18/2020 Depression Monitoring (PHQ-9) 01/10/2024 07/10/2023, 07/10/2023 Diabetes: Urine Protein Screening 05/13/2024 05/14/2023, 02/13/2022, 05/09/2021, Additional history exists Lipid Panel 05/13/2024 05/14/2023, 02/01, 05/09/2021 Diabetes: Hemoglobin A1C 05/28/202402/27/2 024, 11/20/2023, 07/24/2023, Additional history exists Depression Screening 07/09/2024 07/10/2023, 07/10/19 24 SDOH Screening 07/09/2024 07/10/2023 Diabetes: Foot Exam 07/23/2024 07/24/2023, 07/24/2023, 07/24/2023, Additional history exists DTaP/Tdap/Td Vaccines (3 - Td or Tdap) 08/14/2024 08/14/2014, 05/25/2011 Tobacco Screening 03/05/2025 03/05/2024 Eye Exam 03/05/2026 03/05/2024, 04/2024, 03/05/2024, Additional history exists RSV Patients and Patients Aged 60 years or older (1 - 1-dose 75+ series) 2041 Pneumococcal Vaccine: Pediatrics (0 to 5 Years) and At-Risk Patients (6 to 64 Years) Completed 01/21/2023, 05/25/2011 HIV Screening Completed 03/29/2023, 07/06/2020 Hepatitis C Screening Completed 03/29/2023, 024 Influenza Vaccine Completed 11/20/2023, , 01/02/2022, Additional history exists HIB Vaccines Aged Out No longer eligi ble based on patient's age to complete this topic HPV Vaccines Aged Out No longer eligi ble based on patient's age to complete this topic IPV Vaccines Aged Out No longer eligi ble based on patient's age to complete this topic Meningococcal Vaccine Aged Out No nena marsha eligible based on patient's age to complete this topic RSV under 20 months Aged Out No longe r eligible based on patient's age to complete this topic Rotavirus Vaccines Aged Out No longer eligible based on patient's age to complete this topic Procedures Procedure Name Priority Date/Time Associated Diagnosis Comments BASIC METABOLIC PANEL Routine 03/29/2024 11:41 AM EST HEPATIC FUNCTION PANEL Routine 03/29/2024 11:41 AM EST PROTHROMBIN TIME-INR Routine 03/29/2024 11:40 AM EST CBC WITH AUTO DIFFERENTIAL Routine 03/29/2024 11:40 AM EST POCT FARA-14 URINE DRUG SCREEN Routine 03/18/2024 9:30 AM EST Uncomplicated opioid dependence (CMS/HCC) OCT, RETINA - OU - BOTH EYES Routine 03/05/2024 10:46 AM EST Other specified disorders of choroid POCT GLYCATED HEMOGLOBIN, TOTAL Routine 02/28/2024 10:44 AM EST Type 2 diabetes mellitus with hyperglycemia, with long-term current use of insulin (CMS/HCC) POCT GLUCOSE Routine 02/28/2024 10:43 AM EST Type 2 diabetes mellitus with hyperglycemia, with long-term current use of insulin (CMS/HCC) POCT FARA-14 URINE DRUG SCREEN Routine 02/19/2024 9:38 AM EST Uncomplicated opioid dependence (CMS/HCC) GLUCOSE, WHOLE BLOOD Routine 02/18/2024 1:10 PM EST POCT FARA-14 URINE DRUG SCREEN Routine 01/22/2024 9:34 AM EST Uncomplicated opioid dependence (CMS/HCC) LIPID PANEL, STANDARD Routine 05/14/2023 8:29 AM EDT ALBUMIN, RANDOM URINE W/CREATININE Routine 05/14/2023 8:16 AM EDT HEPATITIS C AB W/REFL TO HCV RNA, QN, PCR Routine 03/29/2023 9:12 AM EST HIV 1/2 ANTIGEN/ANTIBODY, FOURTH GENERATION W/RFL Routine 03/29/2023 9:12 AM EST HM COLONOSCOPY Routine 08/16/2015 1:52 PM EDT from Last 3 Months or Most Recently Relevant to Health Maintenance Results * (ABNORMAL) Hepatic Function Panel (03/29/2024 11:41 AM EST) Bilirubin, Total 1.3(H) 0.0 - 1.0 mg/dL [facility] Bilirubin, Direct 0.4 0.0 - 0.5 mg/dL [facility] Aspartate Amino Transferase 22 5 - 37 U/L [facility] Alanine Aminotransferase 16 0 - 40 U/L [facility] Total Protein 7.8 6.5 - 8.0 g/dL [facility] Albumin Level 4.7 3.5 - 5.0 g/dL [facility] Alkaline Phosphatase 66 39 - 117 U/L [facility] 03/29/2024 11:4 1 AM EST 03/29/2024 11:44 AM EST us Generic External Data Provider LAB BLOOD ORDERAB LES Final Result [facility] [address] [place] [phone] * (ABNORMAL) Basic Metabolic Panel (03/29/2024 11:41 AM EST) Sodium 139 135 - 145 mmol/L [facility] Potassium 4.9 3.3 - 5.1 mmol/L [facility] Chloride 103 96 - 108 mmol/L [facility] Carbon Dioxide 30(H) 22 - 29 mmol/L [facility] Anion Gap 11(L) 12 - 20 [facility] Urea Nitrogen (BUN) 15 9 - 16 mg/dL [facility] Creatinine, Serum 0.96 0.5 - 1.4 mg/dL [facility] Creatinine Clr Calc Pharmacy 65.6 [facility] Comment:eGFR (calculated fro m the MDRD study equation) and eCrCl(calculated from the Cockcroft-Gault equation) are based ondifferent parameters and may not yield comparable results.If eCrCl result is absurd, please check patient'sheight/weight. Estimated Glomerular Filt Rate >60 [facility] Comment:Chronic Kidney Disea se: Estimated GFR < 60 mL/min/1.00f9Lwsriy Kidney Disease: Estimated GFR < 15 mL/min/1.73m2 Glucose 203(H) 60 - 115 mg/dL [facility] Calcium 9.9 8.4 - 10.2 mg/dL [facility] 03/29/2024 11:4 1 AM EST 03/29/2024 11:44 AM EST us Generic External Data Provider LAB BLOOD ORDERAB LES Final Result [facility] [address], [place] [phone] * (ABNORMAL) CBC auto differential (03/29/2024 11:40 AM EST) White Blood Count 7.2 4.8 - 10.8 X10*3/uL [facility] Red Blood Count 5.00 4.60 - 5.80 X10*6/uL [facility] Hemoglobin 14.7 14.0 - 18.0 g/dl [facility] Hematocrit 44.6 42.0 - 52.0 % [facility] Mean Corpuscular Volume 89.2 80.0 - 98.0 fL [facility] Mean Corpuscular Hemoglobin 29.4 27.0 - 33.0 pg [facility] Mean Corpuscular HGB Conc 33.0 31.0 - 36.0 g/dl [facility] Red Cell Distribution Width 13.4 11.0 - 16.0 % [facility] Platelet Count 246 160 - 400 X10*3/uL [facility] Mean Platelet Volume 10.0 9.4 - 12.4 fL [facility] Neutrophils Percent Auto 46.8 45 - 73 % [facility] Imm Gran Pct Auto 0.3 0.0 - 0.4 % [facility] Lymphocytes Percent Auto 26.2 20 - 40 % [facility] Monocytes Percent Auto 9.4 2 - 11 % [facility] Eosinophils Percent Auto 15.5(H) 0 - 4 % [facility] Basophils Percent Auto 1.8 0 - 2 % [facility] NRBC Pct Auto 0.0 0.0 - 0.2 /100WBC [facility] Neutrophils Absolute Auto 3.4 2.0 - 8.3 x10*3/uL [facility] Imm Gran Abs Auto 0.02 0.00 - 0.03 X10*3/uL [facility] Lymphocytes Absolute Auto 1.9 1.2 - 4.9 X10*3/uL [facility] Monocytes Absolute Auto 0.7 0.1 - 1.2 X10*3/uL [facility] Eosinophils Absolute Auto 1.1(H) 0.0 - 0.4 X10*3/uL [facility] Basophils Absolute Auto 0.1 0.0 - 0.2 X10*3/uL [facility] NRBC Abs Auto 0.000 0.0 - 0.012 X10*3/uL [facility] 03/29/2024 11:4 0 AM EST 03/29/2024 11:44 AM EST Generic External Data Provider LAB BLOOD ORDERAB LES Final Result Performing Organization Address [facility] de Phone Number [facility] [address] [place] [phone] * Prothrombin Time-INR (03/29/2024 11:40 AM EST) Prothrombin Time 11.7 10.9 - 12.4 SEC [facility] INTERNATIONAL NORM RATIO 1.0 0.9 - 1.1 [facility] Comment:INTERNATIONAL NORMAL IZED RATIO (INR) [...] ORDERAB LES Final Result Performing Organization Address [facility] de Phone Number [facility] [address] [place] [phone] * POCT FARA-14 Urine Drug Screen (03/18/2024 9:30 AM EST) Only the most recent of3 resultswithin the time period is included. THC Negative Cocaine Screen, Urine Negative Opiate [...] procedure / Unknown 03/18/2024 9:30 AM EST Result [facility] Latrice Ibrahim MD POINT OF CARE TEST ENTER/EDIT OR DERABLES Final Result * OCT, Retina - OU - Both [...] disorder both eyes (OU). RTC 3 months. Result [facility] Natalie Davis OD OPHTH TOMOGRAPHY Edited Result - Final * (ABNORMAL) POCT HGB A1C (02/28/2024 10:44 AM EST) Hemoglobin A1C 8.1(A) 4.0 - 6.0 % QC Media Lot # [id number] Lot# Expiration Date [id number] Blood 02/28/2024 10:4 4 AM EST Result [facility] Ananda Spain MD POINT OF CARE TEST ENTER/EDIT OR DERABLES Final Result * (ABNORMAL) POCT Glucose (02/28/2024 10:43 AM EST) Glucose Blood, POC 209(A) 60 - 200 mg/dL QC Media Lot # [id number] Lot# Expiration Date Blood Capillary blood specimen / Unknown 02/28/2024 10:43 AM EST us Ananda Spain MD POINT OF CARE TEST ENTER/EDIT OR DERABLES Final Result * (ABNORMAL) Glucose, Whole Blood (02/18/2024 1:10 PM EST) Glucose, Whole Blood 132(H) 60 - 115 mg/dL [facility] Comment:METER #: [id number] 5Testing performed in the Endocrinology Department [address] , [address], [facility]. 02/18/2024 1:10 PM EST 02/18/2024 1:15 PM EST us Generic External Data Provider LAB BLOOD ORDERAB LES Final Result [facility] [address] [place] [phone] * Lipid Panel, Standard (05/14/2023 8:29 AM EDT) Triglycerides 76 <150 mg/dL [facility] Comment:Desirable Triglyceri de: less than 150 mg/dLBorderline High Triglyceride 150-199 mg/dLHigh Triglyceride: 200-499 mg/dLVery High Triglyceride: greater than or equal to 5OO mg/dL Cholesterol 189 <200 mg/dL [facility] Comment:Desirable Cholestero l: less than 200 mg/dLBorderline High Cholesterol: 200-239 mg/dLHigh Cholesterol: greater than 239 mg/dL LDL Cholesterol Calculated 82 <100 mg/dL [facility] Comment:Desirable LDL: less than 100 mg/dLNear Optimal/Above Optimal LDL: 110- 129 mg/dLBorderline High LDL: 130-159 mg/dLHigh LDL: 160-189 mg/dLVery High LDL: greater than or equal to 190 mg/dL HDL Cholesterol 92 >40 mg/dL [facility] Comment:Desirable HDL: great er than 40 mg/dL Note: This HDL assay may give artificially low results in patients with liver disease. 05/14/2023 8:29 AM EDT 05/14/2023 8:29 AM EDT us Generic External Data Provider LAB BLOOD ORDERAB LES Final Result Performing Organization Address [facility] de Phone Number [facility] [address] [place] [phone] * Albumin, Random Urine W/Creatinine (05/14/2023 8:16 AM EDT) Creatinine, Urine 156.10 mg/dL [facility] Microalbumin Urine 45.0 mg/L [facility] Microalbum Creatinine Ratio Ur 28.8 <30 ug/mg cr [facility] Comment:Albumin/Creatinine R atio Reference Ranges: Normal: < 30 ug/mg creatinine Microalbuminuria: 30 - 300 ug/mg creatinineClinical Albuminuria: > 300 ug/mg creatinine 05/14/2023 8:16 AM EDT 05/14/2023 9:26 AM EDT us Generic External Data Provider LAB URINE ORDERAB LES Final Result Performing Organization Address [facility] Co de Phone Number [facility] [address] [place] [phone] * (ABNORMAL) Hepatitis C Antibody with Reflex to HCV, RNA, Quantitative, Real- Time PCR (03/29/2023 9:12 AM EST) Hepatitis C Antibody Reactive( A) Nonreactive [facility] Comment:Presumptive evidence of antibodies to HCV. 03/29/2023 9:12 AM EST 03/29/2023 11:11 AM EST us Latrice Sakurai MD LAB BLOOD ORDERABLES Final Resul t Performing Organization Address City/[facility]/ZIP Co de Phone Number [facility] [address] [place] [phone] * HIV-1/2 Antigen and Antibodies, Fourth Generation, with Reflexes (03/29/2023 9:12 AM EST) HIV AB/AG Nonreactive Nonreactive [facility] Comment:HIV-1 p24 Ag and/or HIV-1/HIV-2 Ab not detected.A test result that is nonreactive does not exclude thepossibility of exposure to or infection with HIV-1 and/orHIV-2. Nonreactive results in this assay for individualswith prior exposure to HIV-1 and/or HIV-2 may be due toantigen and antibody levels that are below the limit ofdetection of this assay.The [place] HIV Ag/Ab Combo assay result andsupplemental assay results should be interpreted inconjunction with the patient's clinical presentation,history and other laboratory results. If the results areinconsistent with clinical evidence, additional testing issuggested to confirm the result. 03/29/2023 9:12 AM EST 03/29/2023 11:11 AM EST Latrice Ibrahim MD LAB BLOOD ORDERABLES Final Resul t Performing Organization Address [facility]/ZIP Co de Phone Number [facility] [address] [place] [phone] * Hm Colonoscopy (08/16/2015 1:52 PM EDT) Colonoscopy Normal Normal Narrative Gloria Álvarez - 08/16/2015 1:52 PM EDT Recommended 10 year follow up Damari Provider HEALTH MAINTENANCE Final Result from Last 3 Months or Most Recently Relevant to Health Maintenance Insurance [facility] - [facility] Care Teams Ocean Freight Manager Relationship Specialty Start Date End Date Name, MD Ananda [address] [place] [phone] PCP - General Family Medicine 06/01/15
--- OUTSIDE RECORDS SUMMARY | 2024-03-29 12:07 | XMS_ITS | Encounter Summary ---
Author Organization [employer] Address [address] [place] [address] Care Team Providers Care Assistant Laboratory Director Name Role Phone Name, Ananda CRANDALL Primary Care Provider [phone] Reason for Visit * Reason Comments Med Refill Encounter Details Date Type Department Care Team ([facility] Contact Info) Description 12/11/2023 Refill [facility] [address] [place], [place] [phone] Name, MD Ananda [address] [place] [address] Type 2 diabetes mellitus without complication, unspecified whether correction insulin use ([facility]) Social History Tobacco Use Types Packs/Day Years [...] Description 04/15/2024 9:30 AM EST Clinical Support [facility] [address] [place] [address] Sonali Stubbs, COREY [address] [place] [address] 06/04/2024 9:45 AM EDT Office Visit [facility] [address] [place] [address] Natalie Davis OD [address] [place] [address] documented as of this encounter Visit Diagnoses Diagnosis Type 2 diabetes mellitus without complication, unspecified whether long term care social worker insulin use ([facility]) documented in this encounter Additional Health Concerns Assessment Noted Time PHQ-9 Depression Total Score: 024 9:15 AM EDT documented as of this encounter Care Teams Assistant Laboratory Director Relationship Specialty Start Date End Date Name, MD Ananda [address] [place] [phone] PCP - General Family Medicine 06/01/15 documented as of this encounter
--- OUTSIDE RECORDS SUMMARY | 2024-03-29 12:07 | XMS_ITS | Encounter Summary ---
Author Organization [employer] Address [address] [place] [address] Care Team Providers Care Basket Patcher Name Role Phone Name, Ananda CRANDALL Primary Care Provider [phone] Reason for Visit * Reason Comments Med Refill Encounter Details Date Type Department Care Team ([facility] Contact Info) Description 06/07/2022 Refill [facility] [address] [place] [address] [phone] Sebastián Graves MD [address] [place], [place] [phone] Pain of left leg Social History Tobacco [...] suspected to have Coronavirus/COVID-19? No / Unsure 05/24/2022 2:24 PM EDT documented as of this encounter Plan of Treatment Upcoming Encounters Date Type Department Care Team ([facility] Contact Info) Description 04/15/2024 9:30 AM EST Clinical Support [facility] MEDICINE [address] [place] [address] Sonali Stubbs RN [address] [place] [address] 06/04/2024 9:45 AM EDT Office Visit [facility] [address] [place] [address] Natalie Davis, OD [address] [place] [address] documented as of this encounter Visit Diagnoses Diagnosis Pain of left leg documented in this encounter Care Teams Basket Patcher Relationship Specialty Start Date End Date Name, MD Ananda [address] [place] [address] PCP - General Family Medicine 06/01/15 documented as of this encounter
--- OUTSIDE RECORDS SUMMARY | 2024-03-29 12:07 | XMS_ITS | Encounter Summary ---
Author Organization [employer] Address [address] [place] [address] Care Team Providers Care Bonbon Cream Warmer Name Role Phone Name, Ananda CRANDALL Primary Care Provider [phone] Reason for Visit * Reason Onset Date Comments Durable Medical Equipment 09/18/2022 Encounter Details Date Type Department Care Team ([facility] st Contact Info) Description 09/18/2022 Telephone [facility] MEDICINE [address] [place], [place] [phone] Name, MD Ananda [address] [place] [address] Durable Medical Equipment Social History Tobacco Use [...] encounter Miscellaneous Notes * Telephone Encounter - Christy Finn RN - 09/21/2022 1:49 PM EDT Incoming call from [facility] PT regarding message below. [facility] PT states they have no record of pt ever going to their offices and getting PT. Unsure what next steps should be at this point. * Telephone Encounter - Christy Finn RN - 09/21/2022 1:39 PM EDT TC X1 to [facility] Core PT [phone] regarding message below. LVM to return call to nurses. * Telephone Encounter - Lauren Walsh - 09/20/2022 3:14 PM EDT Tc from patient returning call back, regarding message below. Patient states he's going to PT in [facility]. [address] [place] [address] [place] [address] Dr. Mcdaniel. * Telephone Encounter - Christy Finn RN - 09/19/2022 2:41 PM EDT TC X1 to pt regarding message below. LVM to return call to nurses as to which PT office he is goingto or if referral is needed. * Telephone Encounter - Netta Alvares - 09/18/2022 10:49 AM EDT Tc from pt states [facility] wont give him the seat lift until PCP confirms pt is currently going to physical therapy. documented in this encounter Plan of Treatment Upcoming Encounters Date Type Department Care Team (Late st Contact Info) Description 04/15/2024 9:30 AM EST Clinical Support [facility] MEDICINE [address] [place] [address] Sonali Stubbs, RN [address] [place] [address] 06/04/2024 9:45 AM EDT Office Visit [facility] [address] [place] [address] Natalie Davis, OD [address] [place] [address] documented as of this encounter Visit Diagnoses Not on filedocumented in this encounter Care Teams Bonbon Cream Warmer Relationship Specialty Start Date End Date Name, MD Ananda [address] [place] [phone] PCP - General Family Medicine 06/01/15 documented as of this encounter
--- OUTSIDE RECORDS SUMMARY | 2024-03-29 12:07 | XMS_ITS | Encounter Summary ---
Author Organization [employer] Address [address] [place] [address] Care Team Providers Care Automatic Edger Name Role Phone Name, Ananda CRANDALL Primary Care Provider [phone] Reason for Visit * Reason Comments Med Refill Encounter Details Date Type Department Care Team ([facility] st Contact Info) Description 09/19/[address] [facility] PEDS [address] [place], [place] [phone] Name, MD Ananda [address] [place] [address] Pain of left leg Social History Tobacco [...] Description 04/15/2024 9:30 AM EST Clinical Support [facility] MEDICINE [address] [place] [address] Sonali Stubbs, COREY [address] [place] [address] 06/04/2024 9:45 AM EDT Office Visit [facility] OPTOMETRY [address] [place] [address] Natalie Davis, OD [address] [place] [address] documented as of this encounter Visit Diagnoses Diagnosis Pain of left leg documented in this encounter Additional Health Concerns Assessment Noted Time PHQ-9 Depression Total Score: 024 9:15 AM EDT documented as of this encounter Care Teams Automatic Edger Relationship Specialty Start Date End Date Name, MD Ananda [address] [place] [address] PCP - General Family Medicine 06/01/15 documented as of this encounter
--- OUTSIDE RECORDS SUMMARY | 2024-03-29 12:07 | XMS_ITS | Encounter Summary ---
Author Organization [employer] Address [address] [place] [address] Care Team Providers Care Chassis Wirer Name Role Phone Name, Ananda CRANDALL Primary Care Provider [phone] Reason for Visit * Reason Onset Date Comments case in lab 10/03/2022 Encounter Details Date Type Department Care Team ([facility] st Contact Info) Description 10/03/2022 Telephone [facility] [address] [place] [address] Kelvin Haque, DDS [address] [place] [address] case in lab Social History Tobacco Use Types Packs/Day Years [...] * Telephone Encounter - Joanie Gonzalez - 10/03/2022 2:29 PM EDT Hubert from [employer] called in noel that the soonest they can get case back in to office would be 10/10. They stated it is 5 business days and does not include drop off or supervisor opening and picking date. Confirmed with Hubert that as of yet appt has not been scheduled to return and that I would inform officeDR documented in this encounter Plan of Treatment Upcoming Encounters Date Type Department Care Team (Late st Contact Info) Description 04/15/2024 9:30 AM EST Clinical Support [facility] MEDICINE [address] [place] [address] Sonali Stubbs RN [address] [place] [address] 06/04/2024 9:45 AM EDT Office Visit [facility] OPTOMETRY [address] [place] [address] Natalie Davis, OD [address] [place] [address] documented as of this encounter Visit Diagnoses Not on filedocumented in this encounter Additional Health Concerns Assessment Noted Time PHQ-9 Depression Total Score: 3 10/04/19 23 2:21 PM EDT documented as of this encounter Care Teams Chassis Wirer Relationship Specialty Start Date End Date Name, MD Ananda [address] [place] [address] PCP - General Family Medicine 06/01/15 documented as of this encounter
--- OUTSIDE RECORDS SUMMARY | 2024-03-29 12:07 | XMS_ITS | Encounter Summary ---
Author Organization [employer] Address [address] [place] [address] Care Team Providers Care Spring Fitter Name Role Phone Name, Ananda CRANDALL Primary Care Provider [phone] Reason for Visit * Reason Onset Date Comments ER Follow-up 09/26/2022 Encounter Details Date Type Department Care Team ([facility] st Contact Info) Description 09/26/2022 Telephone [facility] [address] [place], [place] [phone] Name, MD Ananda [address] [place] [address] ER Follow-up Social History Tobacco Use Types Packs/Day Years [...] encounter Miscellaneous Notes * Telephone Encounter - Em Leblanc RN - 10/01/2022 10:24 AM EDT T/c to pt. Through [employer] interpreters id - [id number] for below message, pt. 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 Pt. States he was kept into hospital for more than 24 hours. Pt. Schedule for HDF on 10/03. Pt.'s surgery notes is in pt.'s chart. Pt. Also advised to schedule follow up apt. With surgeon. Pt states he is having upcoming follow up apt. With surgeon in next month. Pt. Also advised to go to nearest ED in case of any new or worseningsymptoms. [facility] hours are reviewed. * Telephone Encounter - Hawa Morales - 10/01/2022 9:35 AM EDT Tc from pt returning call regarding message below. Please contact pt at [phone] (israeli speaker) * Telephone Encounter - Em Leblanc RN - 09/27/2022 3:29 PM EDT T/C to pt. On [phone] through [employer] id - [id number] for status check and to schedule follow up apt. No answer. LVM to call back on [phone]. * Telephone Encounter - Netta Alvares - 09/26/2022 11:04 AM EDT Tc from pt calling to advise PCP of an ER visit to [facility] on 09/24/22 for surgery on the left leg. Pt advised will forward to team nurse for f/u. Please contact pt at [phone] (Chinese) documented in this encounter Plan of Treatment Upcoming Encounters Date Type Department Care Team (Late st Contact Info) Description 04/15/2024 9:30 AM EST Clinical Support [facility] [address] [place] [address] [place] [address] Sonali Stubbs, RN [address] [place] [address] 06/04/2024 9:45 AM EDT Office Visit [facility] OPT[facility] [address] [place] [address] Natalie Davis, OD [address] [place] [address] documented as of this encounter Visit Diagnoses Not on filedocumented in this encounter Care Teams Spring Fitter Relationship Specialty Start Date End Date Name, MD Ananda [address] [place] [address] PCP - General Family Medicine 06/01/15 documented as of this encounter
--- OUTSIDE RECORDS SUMMARY | 2024-03-29 12:07 | XMS_ITS | Encounter Summary ---
Author Organization [employer] Address [address] [place] [address] Care Team Providers Care Car Driver Name Role Phone Name, Ananda CRANDALL Primary Care Provider [phone] Reason for Visit * Reason Onset Date Comments Durable Medical Equipment 06/08/2022 Encounter Details Date Type Department Care Team ([facility] st Contact Info) Description 06/08/2022 Telephone [facility] MED[facility]INE [address] [place], [place] [phone] Name, MD Ananda [address] [place] [address] Durable Medical Equipment Social History Tobacco Use [...] PM EDT documented as of this encounter Miscellaneous Notes * Telephone Encounter - Davina Rubin - 06/11/2022 12:30 PM EDT Tc from pt returning call , states unable to get a hold of fieldwork coordinator and would like to know if PCP can send script directly to [facility] . Please contact at [phone] * Telephone Encounter - Arleen Ramirez - 06/11/2022 11:28 AM EDT TC to patient and informed him to contact his home visit field care manager as a script for a recliner was emailed to her previously. Patient understood and agreed with plan. * Telephone Encounter - Darian Joiner - 06/08/2022 4:29 PM EDT Tc from pt requesting a script for a recliner chair to be send to [facility] please contact pt at [phone] documented in this encounter Plan of Treatment Upcoming Encounters Date Type Department Care Team (Late st Contact Info) Description 04/15/2024 9:30 AM EST Clinical Support [facility] MEDICINE [address] [place] [address] Sonali Stubbs, COREY [address] [place] [address] 06/04/2024 9:45 AM EDT Office Visit [facility] OPTOMETRY [address] [place] [address] Natalie Davis, OD [address] [place] [address] documented as of this encounter Visit Diagnoses Not on filedocumented in this encounter Care Teams Car Driver Relationship Specialty Start Date End Date Name, MD Ananda [address] [place] [address] PCP - General Family Medicine 06/01/15 documented as of this encounter
--- OUTSIDE RECORDS SUMMARY | 2024-03-29 12:07 | XMS_ITS | Encounter Summary ---
Author Organization [employer] Address [address] [place] [address] Care Team Providers Care Governor Assembler Name Role Phone Name, Ananda CRANDALL Primary Care Provider [phone] Encounter Details Date Type Department Care Team (Latest Contact Info) Description 01/06/2019 Abstract [facility] CONVERSIONS Dental, Provider, DDS Social History Tobacco [...] Description 04/15/2024 9:30 AM EST Clinical Support [facility] MEDICINE [address] [place] [address] Sonali Stubbs, RN [address] [place] [address] 06/04/2024 9:45 AM EDT Office Visit [facility] OPTOMETRY [address] [place] [address] Natalie Davis OD [address] [place] [address] documented as of this encounter Visit Diagnoses Not on filedocumented in this encounter Care Teams Governor Assembler Relationship Specialty Start Date End Date Name, MD Ananda [address] [place] [phone] PCP - General Family Medicine 06/01/15 documented as of this encounter
[2024-03-29 12:08] LABS: Troponin-I High Sensitivity 12.5 ng/L (<3.5-35.0)
--- NOTE | 2024-03-29 12:08 | PC.NURSE ---
See MAR for med. details; bedside report gv to [facility]; pt reports intermittent 5/10chest pressure at this time; no SOB at this time; IV Heparin infusing per protocol at 12 units/kg/hour; [address]; pt SRper monitor w/ marked ST elevations; pt out of department at 1205; unable to reach drop crew laborer RN at this time; will cont to attempt report
[2024-03-29 12:29] LABS: Influenza A PCR NEGATIVE (Negative); Influenza B PCR NEGATIVE (Negative); Resp Syncy Virus RNA Qual PCR NEGATIVE (Negative); SARS COV2 PCR INHOUSE NEGATIVE (Negative)
--- NOTE | 2024-03-29 12:41 | PC.NURSE ---
Report called to COREY Beach at [facility]
== END 2024-03-29 12:07 | disposition short-term general hospital (02) ==
PROVIDERS: Nurse Practitioner Family; Emergency Provider Emergency Medicine; PCP Internal Medicine Geriatric Medicine
DX: I21.3 ST elevation (STEMI) myocardial infarction of unspecified site (principal); R06.02 Shortness of breath; R07.89 Other chest pain; Z79.899 Other long term (current) drug therapy; Z03.818 Encounter for observation for suspected exposure to other biological agents ruled out
CPT/HCPCS: 0241U; 36415; 71045; 80048; 80076; 84484; 85025; 85610; 85730; 93005; 96374; 96375; 96376; 99285; J1644

== ENCOUNTER → 2024-03-29 11:15 | Outpatient (BNV) | payer OTHER, SELFPAY | PROVIDERS: Emergency Provider Emergency Medicine; PCP Internal Medicine Geriatric Medicine; Visit Provider Radiology Diagnostic Radiology | DX: R05.9 Cough, unspecified (principal); R06.02 Shortness of breath | CPT/HCPCS: 71045 ==

== ENCOUNTER → 2024-03-29 11:15 | Outpatient (BNV) | payer OTHER, SELFPAY | PROVIDERS: Emergency Provider Emergency Medicine; PCP Internal Medicine Geriatric Medicine; Visit Provider Internal Medicine | DX: R06.02 Shortness of breath (principal); R00.0 Tachycardia, unspecified; R94.31 Abnormal electrocardiogram [ECG] [EKG] | CPT/HCPCS: 93010 ==

== ENCOUNTER 2024-04-01 10:32 | Outpatient (AMB) | payer OTHER, SELFPAY ==
--- NOTE | 2024-04-01 10:33 | A.OFFVIS_ITS ---
Intake Visit Reasons: 6M Creatinine Results(Set) Intake Note: Patient is present for 6M CREATININE RESULTS Urology Medication:NONE Antibiotic Allergy:NONE Blood Thinner:ASPIRIN Pest Control Chemical Technician Required: No Allergies No Known Allergies Allergy (Verified 04/14/24 09:22) HPI Comments Details: Hubert is a pleasant male. He is a patient of Dr. Spain. He seen for the following urologic conditions. - recurrent papillary renal cell carcinoma Imaging shows shrinkage of area Continue surveillance Significant past medical history for COPD, history of pancreatitis, mood disorder, opioid abuse, pulmonary tuberculosis, type 1 diabetes Papillary cell carcinoma Repeat cryotherapy performed last week Minimal issues Happy with outcome Plan repeat MRI in 6 months Prior cryotherapy in 2014 - for papillary cell carcinoma - 01/24 repeat cryotherapy of 2.3 cm upper pole left renal mass Imaging - 11/24 MRI 2.3 cm T2 hypointense left upper pole renal mass, 3 small of T2 hyperintense renal lesions on right side - 08/25 MRI shows shrinkage of initial lesion with cryotherapy effect PFSH Medical History Anxiety Tubular adenoma of colon History of pancreatitis Seborrheic dermatitis Mood disorder 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 pylori infection GERD (gastroesophageal reflux disease) Abdominal wall bulge Vitamin D deficiency HLD (hyperlipidemia) HTN (hypertension) T2DM (type 2 diabetes mellitus) Surgical History History of surgery Hx of hernia repair Hx of prior ablation treatment Hx of partial nephrectomy Hx of colonoscopy History of esophagogastroduodenoscopy (EGD) Family History Father Liver cancer Diabetes Alcohol abuse Mother Diabetes Breast cancer Social History Household Members: None Unable to assess alcohol history related to: Unknown Patient Tobacco Use Status: Current everyday Tobacco user Tobacco use type: Cigarette Cigarette Packs Per Day: 0.5 Cigarettes Per Day: 10 Review of Systems Const Denies chills and Denies fever(s) Card Reports no additional complaints and Denies syncope Resp Denies cough GI Denies abdominal pain and Denies heartburn Reports as per HPI and Denies change in libido Neuro Denies syncope Psych Denies change in libido Endo Denies change in libido Physical Exam Const General: cooperative, healthy appearing, comfortable and no acute distress Orientation/consciousness: patient oriented x3 HEENT Face and sinus: Yes normal facial exam Mouth: moist mucous membranes Neck Neck: Yes normal visual inspection, Yes full ROM and Yes trachea midline Chest Chest palpation & inspection: normal inspection of the chest Resp Effort & Inspection: normal respiratory effort, able to speak in complete sentences and no respiratory distress GI Inspection: Yes normal to inspection Back/Spine/Pelvis Cervical Spine: normal cervical lordosis Thoracic/Lumbar Spine: thoracic and lumbar spine normal to inspection Skin General skin exam: no rashes or lesions noted Neuro General: patient oriented x3, gait normal, tone normal and moves all extremities Extrem General: Yes normal to inspection and Yes capillary refill normal Assessment & Plan Assessment & Plan (1) BPH (benign prostatic hyperplasia): Code(s): N40.0 - Benign prostatic hyperplasia without lower urinary tract symptoms Category: Medical (2) Papillary renal cell carcinoma: Code(s): C64.9 - Malignant neoplasm of unspecified kidney, except renal pelvis Category: Medical Plan Continue interval surveillance imaging Orders: Orders US renal BI 6 Months C64.9 - Malignant neoplasm of unspecified kidney, except renal pelvis Patient Instructions: This note is constructed using voice recognition software. While every effort has been made to ensure accuracy convention services director errors may have been included. Imaging studies, laboratory and physical exam results were discussed and reviewed in detail. No major barriers to patient understanding were identified. An opportunity to ask questions regarding the treatment plan was provided. All questions were answered. The patient expressed understanding and agreement with the above treatment plan. The patient is aware they should contact our office by phone for worsening of their current condition or the appearance of new urologic symptoms. Compliance is encouraged with any medications and followup testing that is ordered. It is a privilege to participate in the urologic care of your patient. If you have any questions or concerns regarding treatment for the above conditions, or other urologic issues, please do not hesitate to contact me. The office telephone contact is [phone]. Sincerely, Dr Hipolito Mcdaniel MD, [facility] - Urology Compassionate Specialist Care for the Genitourinary System Coding Level of Care Code Est Pt Level 3 (20460) Diagnoses BPH (benign prostatic hyperplasia) N40.0 Papillary renal cell carcinoma C64.9
--- OUTSIDE RECORDS SUMMARY | 2024-04-01 12:37 | XMS_ITS | Encounter Summary ---
Author Organization [employer] Address [address] [place] [address] Care Team Providers Care Water Valve Mechanic Name Role Phone Name, Ananda CRANDALL Primary Care Provider [phone] Encounter Details Date Type Department Care Team ([facility] Contact Info) Description 03/29/2024 Orders Only GENERIC [...] Description 04/15/2024 9:30 AM EST Clinical Support [facility] MEDIC[facility] [address] [place] [address] Sonali Stubbs, COREY [address] [place] [address] 04/16/2024 10:00 AM EST Office Visit [facility] [address] [place] [address] Name, MD Ananda [address] [place] [address] 06/04/2024 9:45 AM EDT Office Visit [facility] OPTOMETRY [address] [place] [address] Natalie Davis OD [address] [place] [address] documented as of this encounter Procedures Procedure Name Priority Date/Time Associated Diagnosis Comments XR CHEST 1 VIEW Routine 03/29/2024 12:43 PM EST HEPATIC FUNCTION PANEL Routine 03/29/2024 11:41 AM EST BASIC METABOLIC PANEL Routine 03/29/2024 11:41 AM EST HIGH SENSITIVITY TROPONIN I Routine 03/29/2024 11:40 AM EST SARS COV2/INFLUENZA A/B AND RSV RNA QL NAAT Routine 03/29/2024 11:40 AM EST CBC WITH AUTO DIFFERENTIAL Routine 03/29/2024 11:40 AM EST APTT Routine 03/29/2024 11:40 AM EST PROTHROMBIN TIME-INR Routine 03/29/2024 11:40 AM EST documented in this encounter Results * XR Chest 1 View (03/29/2024 12:43 PM EST) Anatomical Region Laterality Modality Chest Radiographic Altagracia ging 03/29/2024 12:4 3 PM EST Narrative 03/29/2024 12:44 PM EST ? [facility] ?[address] ?[place] [address] ?XRay Report ? Signed ? Patient: Gabriel DineronteHubert Padilla ?MR#: ?? [id number] ? : 1965 ?Acct:[id number] ? Age/Sex: 58 / M ?ADM Date: 03/29/24 ? Loc: HO.ED ? Attending Dr: ? Ordering Physician: Tiffanie Ulloa NP ?? Date of Service: 03/29/24 ?? Procedure(s): XR chest 1V ?? Accession Number(s): [id number] ? cc: Ananda Spain MD; Tiffanie Ulloa NP ? CLINICAL HISTORY: cough, shortness of breath ? 1 view chest x-ray ? Comparison: CR/SR - XR CHEST 2V - 12/19/21 14:24 EDT ?? CT/[place] [id number] - 02/26/19 13:51 EST ? Findings: ?? Overinflation and interstitial prominence /peribronchial thickening as on ?? priors. No consolidation. ?? No overt pulmonary edema. No effusions or pneumothorax. Stable left lower ?? lung granuloma. ?? Normal heart size and mediastinal contour. Trachea is midline. ?? Bones intact. Upper abdomen unremarkable. ? Impression: ?? Overinflation and similar peribronchial cuffing. ?? No consolidation. ? This document has been electronically signed by: Aubrey Low MD on ?? 03/29/2024 12:43:35 ? Dictated By: ?Aubrey Low MD ? Signed By: ?<Electronically signed by Aubrey Low MD in OV> ? 03/29/24 1244 ? DD/ 1243 ? TD/TT: 03/29/24 1243 ? Wrecking Car Driver: ? Procedure Note Donotuseinterpreter, Image - 03/29/[address] [address] XRay Report Signed Patient: Hubert Cruz MMR#: [id number] : 1965Acct:[id number] Age/Sex: 58 / MADM Date: 03/29/24 Loc: HO.ED Attending Dr: Ordering Physician: Tiffanie Ullao NP Date of Service: 03/29/24 Procedure(s): XR chest 1V Accession Number(s): [id number] cc: Name,Ananda CRANDALL; Tiffanie Ulloa NP CLINICAL HISTORY: cough, shortness of breath 1 view chest x-ray Comparison: CR/SR - XR CHEST 2V - 12/19/21 14:[address]/[place] [id number] - 02/26/19 13:51 EST Findings: Overinflation and interstitial prominence /peribronchial thickening as on priors. No consolidation. No overt pulmonary edema. No effusions or pneumothorax. Stable left lower lung granuloma. Normal heart size and mediastinal contour. Trachea is midline. Bones intact. Upper abdomen unremarkable. Impression: Overinflation and similar peribronchial cuffing. No consolidation. This document has been electronically signed by: Aubrey Low MD on 03/29/2024 12:43:35 Dictated By: Aubrey Low MD Signed By: <Electronically signed by Aubrey Low MD in OV> 03/29/24 1244 DD/ 1243 TD/TT: 03/29/24 1243 Wrecking Car Driver: us [facility] External Provider IMG XR PROCEDURES Edited Result - Final * (ABNORMAL) Basic Metabolic Panel (03/29/2024 11:41 AM EST) Sodium 139 135 - 145 mmol/L [facility] Potassium 4.9 3.3 - 5.1 mmol/L [facility] Chloride 103 96 - 108 mmol/L [facility] Carbon Dioxide 30(H) 22 - 29 mmol/L [facility] Anion Gap 11(L) 12 - 20 [facility] Urea Nitrogen (BUN) 15 9 - 16 mg/dL [facility] Creatinine, Serum 0.96 0.5 - 1.4 mg/dL [facility] Creatinine Clr Calc Pharmacy 65.6 [facility] Comment:eGFR (calculated fro m the MDRD study equation) and eCrCl(calculated from the Cockcroft-Gault equation) are based ondifferent parameters and may not yield comparable results.If eCrCl result is absurd, please check patient'sheight/weight. Estimated Glomerular Filt Rate >60 [facility] Comment:Chronic Kidney Disea se: Estimated GFR < 60 mL/min/1.80k4Twmipv Kidney Disease: Estimated GFR < 15 mL/min/1.73m2 Glucose 203(H) 60 - 115 mg/dL [facility] Calcium 9.9 8.4 - 10.2 mg/dL [facility] 03/29/2024 11:4 1 AM EST 03/29/2024 11:44 AM EST us Generic External Data Provider LAB BLOOD ORDERAB LES Final Result [facility] [address] [place] [phone] * (ABNORMAL) Hepatic Function Panel (03/29/2024 11:41 AM EST) Bilirubin, Total 1.3(H) 0.0 - 1.0 mg/dL [facility] Bilirubin, Direct 0.4 0.0 - 0.5 mg/dL [facility] Aspartate Amino Transferase 22 5 - 37 U/L [facility] Alanine Aminotransferase 16 0 - 40 U/L [facility] Total Protein 7.8 6.5 - 8.0 g/dL [facility] Albumin Level 4.7 3.5 - 5.0 g/dL [facility] Alkaline Phosphatase 66 39 - 117 U/L [facility] 03/29/2024 11:4 1 AM EST 03/29/2024 11:44 AM EST Generic External Data Provider LAB BLOOD ORDERAB LES Final Result Performing Organization Address [facility]/ZIP Co de Phone Number [facility] [address] [place] [phone] * Partial Thromboplastin Time, Activated (APTT) (03/29/2024 11:40 AM EST) Partial Thromboplastin Time 30.0 26.0 - 36.8 SEC [facility] Comment:For information rega rding the monitoring of direct thrombininhibitors, please refer to Pharmacy. 03/29/2024 11:4 0 AM EST 03/29/2024 11:44 AM EST Generic External Data Provider LAB BLOOD ORDERAB LES Final Result Performing Organization Address [facility] [[email or web address]] Co de Phone Number [facility] [address] [place] [phone] * SARS-CoV-2 RNA, Influenza A/B, and RSV RNA, Ql NAAT (03/29/2024 11:40 AM EST) Influenza A PCR NEGATIVE Negative [facility] Influenza B PCR NEGATIVE Negative [facility] Resp Syncy Virus RNA Qual PCR NEGATIVE Negative [facility] SARS COV2 PCR NEGATIVE Negative [facility] Comment:All test results mus t be correlated with clinical findings.Negative results do not preclude SARS-CoV2, influenza Avirus, influenza B virus and/or RSV infectionand should not be used as the sole basis for treatment orother patient management decisions. Negative results must becombined with clinical observations, patient history, andepidemiological information.This test has not been evaluated for monitoring treatment ofinfection.This test has been authorized by the FDA under an EmergencyUse Authorization (EUA) for use by authorized laboratories.Testing performed on the [employer] GeneXpert utilizingreal-time RT-PCR.All SARS CoV2 and positive influenza A/B results arereported to [facility]. 03/29/2024 11:4 0 AM EST 03/29/2024 11:44 AM EST Generic External Data Provider LAB MICROBIOLOGY - GENERAL ORDERABLES Final Result Performing Organization Address [facility] de Phone Number [facility] [address] [place] [phone] * High Sensitivity Troponin I (03/29/2024 11:40 AM EST) TROPONIN I HIGH SENSITIVITY 12.5 <3.5 - 35.0 ng/L [facility] Comment:The [place]rano high sens itivity Troponin-I results should beused in conjunction with other diagnostic information suchas ECG, clinical observations and information, and patientsymptoms to aid in the diagnosis of PR. 03/29/2024 11:4 0 AM EST 03/29/2024 11:44 AM EST Generic External Data Provider LAB BLOOD ORDERAB LES Final Result Performing Organization Address [facility] Phone Number [facility] [address] [place] [phone] * Prothrombin Time-INR (03/29/2024 11:40 AM EST) Prothrombin Time 11.7 10.9 - 12.4 SEC [facility] INTERNATIONAL NORM RATIO 1.0 0.9 - 1.1 [facility] Comment:INTERNATIONAL NORMAL IZED RATIO (INR) [...] Provider LAB BLOOD ORDERAB LES Final Result [facility] [address] [place] [phone] [phone] * (ABNORMAL) CBC auto differential (03/29/2024 11:40 AM EST) White Blood Count 7.2 4.8 - 10.8 X10*3/uL [facility] Red Blood Count 5.00 4.60 - 5.80 X10*6/uL [facility] Hemoglobin 14.7 14.0 - 18.0 g/dl [facility] Hematocrit 44.6 42.0 - 52.0 % [facility] Mean Corpuscular Volume 89.2 80.0 - 98.0 fL [facility] Mean Corpuscular Hemoglobin 29.4 27.0 - 33.0 pg [facility] Mean Corpuscular HGB Conc 33.0 31.0 - 36.0 g/dl [facility] Red Cell Distribution Width 13.4 11.0 - 16.0 % [facility] Platelet Count 246 160 - 400 X10*3/uL [facility] Mean Platelet Volume 10.0 9.4 - 12.4 fL [facility] Neutrophils Percent Auto 46.8 45 - 73 % [facility] Imm Gran Pct Auto 0.3 0.0 - 0.4 % [facility] Lymphocytes Percent Auto 26.2 20 - 40 % [facility] Monocytes Percent Auto 9.4 2 - 11 % [facility] Eosinophils Percent Auto 15.5(H) 0 - 4 % [facility] Basophils Percent Auto 1.8 0 - 2 % [facility] NRBC Pct Auto 0.0 0.0 - 0.2 /100WBC [facility] Neutrophils Absolute Auto 3.4 2.0 - 8.3 x10*3/uL [facility] Imm Gran Abs Auto 0.02 0.00 - 0.03 X10*3/uL [facility] Lymphocytes Absolute Auto 1.9 1.2 - 4.9 X10*3/uL [facility] Monocytes Absolute Auto 0.7 0.1 - 1.2 X10*3/uL [facility] Eosinophils Absolute Auto 1.1(H) 0.0 - 0.4 X10*3/uL [facility] Basophils Absolute Auto 0.1 0.0 - 0.2 X10*3/uL [facility] NRBC Abs Auto 0.000 0.0 - 0.012 X10*3/uL [facility] 03/29/2024 11:4 0 AM EST 03/29/2024 11:44 AM EST us Generic External Data Provider LAB BLOOD ORDERAB LES Final Result [facility] [address] [place] [phone] documented in this encounter Visit Diagnoses Not on filedocumented in this encounter Additional Health Concerns Assessment Noted Time PHQ-9 Depression Total Score: 10 024 9:15 AM EDT documented as of this encounter Care Teams Water Valve Mechanic Relationship Specialty Start Date End Date Name, MD Ananda [address] [place] [address] PCP - General Family Medicine 06/01/15 documented as of this encounter
--- OUTSIDE RECORDS SUMMARY | 2024-04-01 12:37 | XMS_ITS | Encounter Summary ---
Author Organization [employer] Address [address] [place] [address] Care Team Providers Care Shoe Sprayer Name Role Phone Name, Ananda CRANDALL Primary Care Provider [phone] Reason for Visit * Reason Comments Med Refill Encounter Details Date Type Department Care Team ([facility] Contact Info) Description 02/28/2023 Refill [facility] [address] [place], [place] [phone] Name, MD Ananda [address] [place] [address] Pain of left leg Social History Tobacco [...] is your housing situation today? I have rosauar salmon 12/19/[address] you [...] Description 04/15/2024 9:30 AM EST Clinical Support [facility] [address] [place] [phone] Sonali Stubbs, COREY [address] [place] [address] 04/16/2024 10:00 AM EST Office Visit [facility] [address] [place] [phone] NameAnanda MD [address] [place] [address] 06/04/2024 9:45 AM EDT Office Visit [facility] [address] [place] [address] [place] Natalie, OD [address] [place] [address] documented as of this encounter Visit Diagnoses Diagnosis Pain of left leg documented in this encounter Additional Health Concerns Assessment Noted Time PHQ-9 Depression Total Score: 3 10/04/19 23 2:21 PM EDT documented as of this encounter Care Teams Shoe Sprayer Relationship Specialty Start Date End Date Ananda Spain MD [address] [place] [phone] PCP - General Family Medicine 06/01/15 documented as of this encounter
--- OUTSIDE RECORDS SUMMARY | 2024-04-01 12:37 | XMS_ITS | Encounter Summary ---
Author Organization [employer] Address [address] [place] [address] Care Team Providers Care Refrigeration Service Technician Name Role Phone Name, Ananda CRANDALL Primary Care Provider Encounter Details Date Type Department Care Team ([facility] Contact Info) Description 03/28/2022 Orders Only [facility] [address] [place], [place] [phone] Teresa Moody LPN Social History Tobacco Use [...] Description 04/15/2024 9:30 AM EST Clinical Support [address] [phone] Sonali Stubbs, COREY [address] [place] [phone] 04/16/2024 10:00 AM EST Office Visit [address] [address] Name, MD Ananda [address] [place] [address] 06/04/2024 9:45 AM EDT Office Visit [facility] [address] [place] [address] Natalie Davis, OD [address] [place] [address] documented as of this encounter Visit Diagnoses Not on filedocumented in this encounter Care Teams Refrigeration Service Technician Relationship Specialty Start Date End Date Name, MD Ananda [address] [place] [address] PCP - General Family Medicine 06/01/15 documented as of this encounter
--- OUTSIDE RECORDS SUMMARY | 2024-04-01 12:37 | XMS_ITS | Encounter Summary ---
Author Organization [employer] Address [address] [place] [address] Care Team Providers Care Banking Specialist Name Role Phone Name, Ananda CRANDALL Primary Care Provider [phone] Encounter Details Date Type Department Care Team ([facility] st Contact Info) Description 03/28/2023 Abstract [facility] [address] [place], [place] [phone] Name, MD Ananda [address] [place] [address] Social History Tobacco Use Types Packs/Day Years [...] t he electric, gas, oil or water [employer] threatened to shut off services in your [...] Description 04/15/2024 9:30 AM EST Clinical Support [facility] [address] [place] [phone] Sonali Stubbs, COREY [address] [place] [address] 04/16/2024 10:00 AM EST Office Visit [facility] [address] [place] [phone] Name, MD Ananda [address] [place] [phone] 06/04/2024 9:45 AM EDT Office Visit [facility] [address] [place] [address] Natalie Davis, OD [address] [place] [address] documented as of this encounter Visit Diagnoses Not on filedocumented in this encounter Additional Health Concerns Assessment Noted Time PHQ-9 Depression Total Score: 3 10/04/19 23 2:21 PM EDT documented as of this encounter Care Teams Banking Specialist Relationship Specialty Start Date End Date Ananda Spain MD [address] [place] [phone] PCP - General Family Medicine 06/01/15 documented as of this encounter
--- OUTSIDE RECORDS SUMMARY | 2024-04-01 12:37 | XMS_ITS | Encounter Summary ---
Author Organization [employer] Address [address] [facility] [address] 7t [place] [address] Care Team Providers Care Supervisor Net Making Name Role Phone Name, Ananda CRANDALL Primary Care Provider [phone] Reason for Visit * Reason Comments Med Refill Encounter Details Date Type Department Care Team ([facility] Contact Info) Description 03/21/2024 Refill [facility] 230 [place], [place] [phone] Name, MD Ananda 230 [place] [address] Chronic obstructive pulmonary disease, unspecified COPD type [...] 04/15/2024 9:30 AM EST Clinical Support [facility] [address] [place] [address] Sonali Stubbs, COREY [address] [place] [address] 04/16/2024 10:00 AM EST Office Visit [facility] [address] [place] [address] NameAnanda MD [address] [place] [address] 06/04/2024 9:45 AM EDT Office Visit [facility] OPTOMETRY 267 [place] [address] Natalie Davis, OD 267 [place] [address] documented as of this encounter Visit Diagnoses Diagnosis Chronic obstructive pulmonary disease, unspecified COPD type (CMS/HCC) documented in this encounter Additional Health Concerns Assessment Noted Time PHQ-9 Depression Total Score: 10 024 9:15 AM EDT documented as of this encounter Care Teams Supervisor Net Making Relationship Specialty Start Date End Date NameAnanda MD [address] [place] [address] PCP - General Family Medicine 06/01/15 documented as of this encounter
--- OUTSIDE RECORDS SUMMARY | 2024-04-01 12:37 | XMS_ITS | Encounter Summary ---
Author Organization [employer] Address [address] 7t [place] [address] Care Team Providers Care Automatic I Threading Machine Feeder Name Role Phone Name, Ananda CRANDALL Primary Care Provider [phone] Encounter Details Date Type Department Care Team [...] EST Clinical Support [facility] [address] [place] [address] Sonali Stubbs, RN [address] [place] [address] 04/16/2024 10:00 AM EST Office Visit [facility] [address] [place] [address] NameAnanda MD [address] [place] [address] 06/04/2024 9:45 AM EDT Office Visit [facility] OPT[facility]RY 267 [place] [address] TarkaNatalie, OD 267 [place] [address] documented as of this encounter Visit Diagnoses Not on filedocumented in this encounter Additional Health Concerns Assessment Noted Time PHQ-9 Depression Total Score: 10 024 9:15 AM EDT documented as of this encounter Care Teams Automatic I Threading Machine Feeder Relationship Specialty Start Date End Date NameAnanda MD [address] [place] [address] PCP - General Family Medicine 06/01/15 documented as of this encounter
--- OUTSIDE RECORDS SUMMARY | 2024-04-01 12:37 | XMS_ITS | Encounter Summary ---
Author Organization [employer] Address [address] 7t [place] [address] Care Team Providers Care Onion Topper Name Role Phone Name, Ananda CRANDALL Primary Care Provider [phone] Reason for Visit * Reason Comments Med Refill Encounter Details Date Type Department [facility] Description 04/25/2022 Refill [facility] [address] [place] [address] [phone] Name, MD Ananda [address] [place] [address] Wheezing (Primary Dx) Social History Tobacco Use Types Packs/Day Years [...] suspected to have Coronavirus/COVID-19? No / Unsure 04/17/2022 9:24 AM EST documented as of this encounter Plan of Treatment Upcoming Encounters Date Type Department Care Team ([facility] Contact Info) Description 04/15/2024 9:30 AM EST Clinical Support [facility] MEDICINE [address] [place] [address] Sonali Stubbs RN 230 [place] [address] 04/16/2024 10:00 AM EST Office Visit [facility] MEDICINE 230 [place] [address] Name, MD Ananda 230 [place] [address] 06/04/2024 9:45 AM EDT Office Visit [facility] OPTOMETRY 267 [place] [address] Natalie Davis, OD 267 [place] [address] documented as of this encounter Visit Diagnoses Diagnosis Wheezing- Primary documented in this encounter Care Teams Onion Topper Relationship Specialty Start Date End Date NameAnanda MD 230 [place] [address] PCP - General Family Medicine 06/01/15 documented as of this encounter
--- OUTSIDE RECORDS SUMMARY | 2024-04-01 12:37 | XMS_ITS | Encounter Summary ---
Author Organization [employer] Address [address] 7t [place] [address] Care Team Providers Care Patent Law Specialist Name Role Phone Name, Ananda CRANDALL Primary Care Provider Reason for Visit * Reason Comments Obat f/u Encounter Details Date Type Department Care Team (Latest Contact Info) Description 03/18/2024 9:00 AM EST Clinical Support [facility] MEDICINE 230 [place] [address] Sonali Stubbs, COREY 230 [place] [address] Uncomplicated opioid dependence (CMS/HCC) (Primary Dx); Tobacco [...] 07/2009. Currently seeing therapist, Yuko Thomas, at [facility], [address] [place] [address]. Haspsychiatrist, Teodoro Bee, in private practice. Prescribed benzo. Current dose of Suboxone is 24/6 mg daily, on a 4 week schedule appt. LFTs 03/20/23 (PCP ordered labs, including hepatic panel) SCHOOL OPERATIONS MANAGER reviewed by provider. PrEP: declined 04/19/21 PCP: [...] He states he will be flying to [place] this Saturday to spend holidays with his [...] 07/2009. Currently seeing therapist, Yuko Thomas, at [facility], [address] [place] [address]. Haspsychiatrist, Teodoro Bee, in private practice. Prescribed benzo. Current dose of Suboxone is 24/6 mg daily, on a 4 week schedule appt. LFTs 03/20/23 (PCP ordered labs, including hepatic panel) SCHOOL OPERATIONS MANAGER reviewed by provider. PrEP: declined 04/19/21 PCP: [...] He states he will be flying to [place] this Saturday to spend holidays with his nephew. Today: 03/18/24 Utox: BUP, BZO (Rx) Hubert seen today for opioid use disorder. Had a great time with nephew and other extended family in [place] over the holidays. He still grieves his [...] Clinical Support [facility] MEDICINE [address] [place] [address] Sonali Stubbs, COREY 230 [place] [address] 04/16/2024 10:00 AM EST Office Visit [facility] MEDICINE [address] [place] [address] Name, MD Ananda 230 [place] [address] 06/04/2024 9:45 AM EDT Office Visit [facility] OPTOMETRY 267 [place] [address] Natalie Davis, MADIE 267 [place] [address] documented as of this encounter Procedures Procedure [...] encounter Visit Diagnoses Diagnosis Uncomplicated opioid dependence (CMS/HCC)- Primary Tobacco dependence Tobacco use disorder documented in this encounter Additional Health Concerns Assessment Noted Time PHQ-9 Depression Total Score: 10 024 9:15 AM EDT documented as of this encounter Care Teams Patent Law Specialist Relationship Specialty Start Date End Date Name, MD Ananda 230 [place] [address] PCP - General Family Medicine 06/01/15 documented as of this encounter
--- OUTSIDE RECORDS SUMMARY | 2024-04-01 12:37 | XMS_ITS | Encounter Summary ---
Author Organization [employer] Address [address] 7t [place] [address] Care Team Providers Care Egg Separator Name Role Phone NameAnanda MD Primary Care Provider [phone] Encounter Details Date Type Department Care Team ([facility] Contact Info) Description 02/14/[address] [address] Provider, MD Damari Social History Tobacco Use [...] Description 04/15/2024 9:30 AM EST Clinical Support [address] [address] Sonali Stubbs, COREY [address] [place] [address] 04/16/2024 10:00 AM EST Office Visit [address] [phone] Name, MD Ananda 230 [place] [address] 06/04/2024 9:45 AM EDT Office Visit [facility] OPTOMETRY 267 [place] [address] Natalie Davis, OD 267 [place] [address] documented as of this encounter Visit Diagnoses Not on filedocumented in this encounter Care Teams Egg Separator Relationship Specialty Start Date End Date Name, MD Ananda 230 [place] [address] PCP - General Family Medicine 06/01/15 documented as of this encounter
--- OUTSIDE RECORDS SUMMARY | 2024-04-01 12:37 | XMS_ITS | Encounter Summary ---
Author Organization [employer] Address [address] 7t [place] [address] Care Team Providers Care Behavior Support Specialist Name Role Phone Name, Ananda CRANDALL Primary Care Provider [phone] Encounter Details Date Type Department Care Team (Late Contact Info) Description 05/10/2022 Orders Only [address] [address] Alis Zavala, COREY Uncomplicated opioid dependence ([facility]) Social History Tobacco Use Types Packs/Day Years [...] Description 04/15/2024 9:30 AM EST Clinical Support [address] [address] Sonali Stubbs, COREY [address] [place] [address] 04/16/2024 10:00 AM EST Office Visit [address] [place] [address] Name, MD Ananda 230 [place] [address] 06/04/2024 9:45 AM EDT Office Visit [facility] OPTOMETRY 267 [place], [place] [phone] Natalie Davis, OD [address] [employer] [place], [place] [phone] documented as of this encounter Visit Diagnoses Diagnosis Uncomplicated opioid dependence (CMS/HCC) documented in this encounter Care Teams Behavior Support Specialist Relationship Specialty Start Date End Date Name, MD Ananda [address] [place] [address] PCP - General Family Medicine 06/01/15 documented as of this encounter
--- OUTSIDE RECORDS SUMMARY | 2024-04-01 12:37 | XMS_ITS | Encounter Summary ---
Author Organization [employer] Address [address] [facility] [address] 7t [place] [address] Care Team Providers Care Waste Disposal Plant Operator Name Role Phone Name, Ananda CRANDALL Primary Care Provider [phone] Reason for Visit * Reason Onset Date Comments Prior Authorization 05/07/2022 Appointment 05/07/2022 Encounter Details Date Type Department Care Team ([facility] st Contact Info) Description 05/07/2022 Telephone [facility] ADULT DENTAL 230 [place] [address] Kelvin Haque, DDS 230 [place] [address] Prior Authorization; Appointment Social History Tobacco Use [...] specify if for partial. Don't see if [facility] has approved partials for patient. Patient verifying. documented in this encounter Plan of Treatment Upcoming Encounters Date Type Department Care Team (Late st Contact Info) Description 04/15/2024 9:30 AM EST Clinical Support [facility] MEDICINE 230 [place] [address] Sonali Stubbs, RN 230 [place] [address] 04/16/2024 10:00 AM EST Office Visit [facility] MEDICINE [address] [place] [address] Name, MD Ananda [address] [place] [address] 06/04/2024 9:45 AM EDT Office Visit [facility] OPTOMETRY 267 [place] [address] Natalie Davis, OD 267 [place] [address] documented as of this encounter Visit Diagnoses Not on filedocumented in this encounter Care Teams Waste Disposal Plant Operator Relationship Specialty Start Date End Date NameAnanda MD [address] [place] [address]67 PCP - General Family Medicine 06/01/15 documented as of this encounter
--- OUTSIDE RECORDS SUMMARY | 2024-04-01 12:38 | XMS_ITS | Encounter Summary ---
Author Organization [employer] Address [address] [facility] [address] [facility] [address] 7t [place] [address] Care Team Providers Care Cardiac Nurse Specialist Name Role Phone Name, Ananda CRANDALL Primary Care Provider [phone] Reason for Visit * Reason Comments Med Refill Encounter Details Date Type Department Care Team ([facility] Contact Info) Description 03/08/2024 Refill [facility] 230 [place], [place] [phone] Name, MD Ananda 230 [place] [address] Chronic obstructive pulmonary disease, unspecified COPD type [...] 04/15/2024 9:30 AM EST Clinical Support [facility] MEDICINE [address] [place] [address] Sonali Stubbs, COREY [address] [place] [address] 04/16/2024 10:00 AM EST Office Visit [facility] MED[facility] [address] [place] [address] NameAnanda MD [address] [place] [address] 06/04/2024 9:45 AM EDT Office Visit [facility] OPTOMETRY 267 [place] [address] Natalie Davis, OD 267 [place] [address] documented as of this encounter Visit Diagnoses Diagnosis Chronic obstructive pulmonary disease, unspecified COPD type (CMS/HCC) documented in this encounter Additional Health Concerns Assessment Noted Time PHQ-9 Depression Total Score: 10 024 9:15 AM EDT documented as of this encounter Care Teams Cardiac Nurse Specialist Relationship Specialty Start Date End Date NameAnanda MD [address] [place] [address] PCP - General Family Medicine 06/01/15 documented as of this encounter
--- OUTSIDE RECORDS SUMMARY | 2024-04-01 12:38 | XMS_ITS | Encounter Summary ---
Author Organization [employer] Address [address] [facility] [address] [facility] [address] 7t [place] [address] Care Team Providers Care Cotton Buyer Name Role Phone Name, Ananda CRANDALL Primary Care Provider [phone] Reason for Visit * Reason Onset Date Comments case in lab 10/03/2022 Encounter Details Date Type Department Care Team ([facility] st Contact Info) Description 10/03/2022 Telephone [facility]ULT D[facility]AL [address] [place] [address] Kelvin Haque, DDS [address] [place] [address] case in lab Social History Tobacco Use [...] - 10/03/2022 2:29 PM EDT Hubert from [place] called in noel that the soonest they can get case back in to office would be 10/10. They stated it is 5 business days and does not include drop off or seed cone picker date. Confirmed with Hubert that as of yet appt has not been scheduled to return and that I would inform officeDR documented in this encounter Plan of Treatment Upcoming Encounters Date Type Department Care Team (Late st Contact Info) Description 04/15/2024 9:30 AM EST Clinical Support [facility] MEDICINE [address] [place] [address] Sonali Stubbs, COREY 230 [place] [address] 04/16/2024 10:00 AM EST Office Visit [facility] MEDICINE 230 [place] [address] Name, MD Ananda 230 [place] [address] 06/04/2024 9:45 AM EDT Office Visit [facility] OPTOMETRY 267 [place] [address] Natalie Davis, OD 267 [place] [address] documented as of this encounter Visit Diagnoses Not on filedocumented in this encounter Additional Health Concerns Assessment Noted Time PHQ-9 Depression Total Score: 3 10/04/19 23 2:21 PM EDT documented as of this encounter Care Teams Cotton Buyer Relationship Specialty Start Date End Date Name, MD Ananda [address] [place] [address] PCP - General Family Medicine 06/01/15 documented as of this encounter
--- OUTSIDE RECORDS SUMMARY | 2024-04-01 12:38 | XMS_ITS | Encounter Summary ---
Author Organization [employer] Address [address] [facility] [facility] [address] 7t [place] [address] Care Team Providers Care Roller Turner Name Role Phone Name, Ananda CRANDALL Primary Care Provider [phone] Reason for Visit * Reason Comments Med Refill Encounter Details Date Type Department Care Team ([facility] st Contact Info) Description 03/05/2024 Refill [facility] 230 [place], [place] [phone] Name, MD Ananda 230 [place], [place] [phone] Papillary renal cell carcinoma (CMS/HCC) Social History [...] Description 04/15/2024 9:30 AM EST Clinical Support [facility] MEDICINE [address] [place] [address] Sonali Stubbs, COREY [address] [place] [address] 04/16/2024 10:00 AM EST Office Visit [facility] MED[facility]INE [address] [place] [address] Name, MD Ananda [address] [place] [address] 06/04/2024 9:45 AM EDT Office Visit [facility] OPTOMETRY 267 [place] [address] Natalie Davis OD 267 [place] [address] documented as of this encounter Visit Diagnoses Diagnosis Papillary renal cell carcinoma (CMS/HCC) documented in this encounter Additional Health Concerns Assessment Noted Time PHQ-9 Depression Total Score: 10 024 9:15 AM EDT documented as of this encounter Care Teams Roller Turner Relationship Specialty Start Date End Date NameAnanda MD [address] [place] [address] PCP - General Family Medicine 06/01/15 documented as of this encounter
--- OUTSIDE RECORDS SUMMARY | 2024-04-01 12:38 | XMS_ITS | Encounter Summary ---
Author Organization [employer] Address [address] 7t [place] [address] Care Team Providers Care Post Graduate Internship Name Role Phone Name, Ananda CRANDALL Primary Care Provider [phone] Reason for Visit * Reason Comments Med Refill Encounter Details Date Type Department Care Team (Late Contact Info) Description 12/07/2022 Refill [facility] MEDICINE [address] [place] [address] [phone] Name, MD Ananda [address] [place] [address] Type 2 diabetes mellitus without complication, unspecified whether halfway insulin use ([facility]); Type 2 diabetes mellitus without complication, with long-term current use of insulin ([facility]) Social History Tobacco Use Types Packs/Day Years [...] Description 04/15/2024 9:30 AM EST Clinical Support [facility] MEDICINE [address] [place] [address] Sonali Stubbs, RN 230 [place] [address] 04/16/2024 10:00 AM EST Office Visit [facility] MEDICINE 230 [place] [address] Name, MD Ananda 230 [place] [address] 06/04/2024 9:45 AM EDT Office Visit [facility] OPTOMETRY 267 [place] [address] Natalie Davis, OD 267 [place] [address] documented as of this encounter Visit Diagnoses Diagnosis Type 2 diabetes mellitus without complication, unspecified whether halfway insulin use ([facility]) documented in this encounter Additional Health Concerns Assessment Noted Time PHQ-9 Depression Total Score: 3 10/04/19 23 2:21 PM EDT documented as of this encounter Care Teams Post Graduate Internship Relationship Specialty Start Date End Date Name, MD Ananda [address] [place] [address] PCP - General Family Medicine 06/01/15 documented as of this encounter
--- OUTSIDE RECORDS SUMMARY | 2024-04-01 12:38 | XMS_ITS | Encounter Summary ---
Author Organization [employer] Address [address] [facility] [address] 7t [place] [address] Care Team Providers Care Gse Mechanic Name Role Phone Name, Ananda CRANDALL Primary Care Provider Reason for Visit * Reason Onset Date Comments Med Refill 03/11/2024 Encounter Details Date Type Department Care Team ([facility] st Contact Info) Description 03/11/2024 Refill [facility] MEDICINE 230 [place], [place] [phone] Sonali Stubbs, RN 230 [place] [address] Uncomplicated opioid dependence (CMS/HCC) Social History Tobacco [...] Description 04/15/2024 9:30 AM EST Clinical Support [facility] MEDICINE [address] [place] [address] Sonali Stubbs, COREY [address] [place] [address] 04/16/2024 10:00 AM EST Office Visit [facility] MEDICINE [address] [place] [address] Name, MD Ananda [address] [place] [address] 06/04/2024 9:45 AM EDT Office Visit [facility] OPTOMETRY 267 [place] [address] Natalie Davis OD 267 [place] [address] documented as of this encounter Visit Diagnoses Diagnosis Uncomplicated opioid dependence (CMS/HCC) documented in this encounter Additional Health Concerns Assessment Noted Time PHQ-9 Depression Total Score: 10 024 9:15 AM EDT documented as of this encounter Care Teams Gse Mechanic Relationship Specialty Start Date End Date Ananda Spain MD [address] [place] [address] PCP - General Family Medicine 06/01/15 documented as of this encounter
--- OUTSIDE RECORDS SUMMARY | 2024-04-01 12:38 | XMS_ITS | Encounter Summary ---
Author Organization [employer] Address [address] [address] [address] 7t [place] [address] Care Team Providers Care Coil Cleaner Name Role Phone Name, Ananda CRANDALL Primary Care Provider [phone] Reason for Visit * Reason Onset Date Comments Durable Medical Equipment 03/11/2024 Encounter Details Date Type Department Care Team ([facility] st Contact Info) Description 03/11/2024 Telephone [facility] MEDICINE 230 [place], [place] [phone] Name, MD Ananda 230 [place] [address] Durable Medical Equipment Social History Tobacco Use [...] [employer] . Confirmation received and sent to front office representative/wakonda team for scanning. If patient calls to check status on above, please advise them to contact [employer] at [phone]. * Telephone Encounter - Robert Cleveland RN - 03/11/2024 11:12 AM EST Confirmation of order for Wipes from [employer] placed on PCP desk for signature. documented in this encounter Plan of Treatment Upcoming Encounters Date Type Department Care Team (Late st Contact Info) Description 04/15/2024 9:30 AM EST Clinical Support [facility] MEDICINE [address] [place] [address] Sonali Stubbs RN [address] [place] [address] 04/16/2024 10:00 AM EST Office Visit [facility] MEDICINE [address] [place] [address] Name, MD Ananda [address] [place] [address] 06/04/2024 9:45 AM EDT Office Visit [facility] OPTOMETRY 267 [place], [place] [phone] Natalie Davis, OD 267 [place] [address] documented as of this encounter Visit Diagnoses Not on filedocumented in this encounter Additional Health Concerns Assessment Noted Time PHQ-9 Depression Total Score: 10 024 9:15 AM EDT documented as of this encounter Care Teams Coil Cleaner Relationship Specialty Start Date End Date Name, MD Ananda 230 [place] [address] PCP - General Family Medicine 06/01/15 documented as of this encounter
--- OUTSIDE RECORDS SUMMARY | 2024-04-01 12:38 | XMS_ITS | Encounter Summary ---
Author Organization [employer] Address [address] [place] [address] Care Team Providers Care University Services Program Associate Name Role Phone Name, Ananda CRANDALL Primary Care Provider [phone] Encounter Details Date Type Department Care Team (Latest Contact Info) Description 03/05/2024 9:45 AM EST Office Visit [facility] OPTOMETRY [address] [place], [place] [phone] Natalie Davis, OD [address] [place], [place] [phone] Type 2 diabetes mellitus without ophthalmic manifestations [...] tablet by mouth at bedtime. Continuous Glucose Ancillary Services Manager Therapy (FreeStyle Kasey 2 Alpine) device Scan sensor every 8 hours 1 each 0 Continuous Glucose Sensor (FreeStyle Kasey 2 Sensor) [facility] USE DIRECTED TO TEST BLOOD SUGAR 8 [...] 8 (eight) hours. Lancets (OneTouch Delica Plus Enhgli38Q) [facility] TEST BLOOD SUGAR THREE TIMES DAILY Mis. Devices (Pulse Oximeter For Finger) [facility] 1 each 2 times daily. Call [facility] if consistently < 95% 1 each [...] INJECT 8 UNITS SUBCUTANEOUSLY EVERY DAY Umeclidinium [place] (Incruse Ellipta) 62.5 MCG/ACT aerosol powder Inhale [...] Exam Right Left Vitreous Clear Clear Disc [place] and healthy, (-) NVD [place] and healthy, (-) NVD C/D Ratio Vertical 0.20 0.30 C/D Ratio Horizontal 0.20 0.25 Macula Flat with even pigmentation, (-) CME Pigment irregularities, (-) CME Vessels Normal course and caliber, (-) NVE Normal course and caliber, (-) NVE Periphery No holes/tears/detachments 360 Large ~6x3DD retinal scar superior temporal midperiphery, no holes/tears/detachments 360 Refraction Manifest Refraction (Retinoscopy) Sphere Cylinder [place] Add Right +0.25 -2.25 170 Left -0.50 -0.50 180 Manifest Refraction #2 (Auto) Sphere Cylinder [place] Add Right +0.25 -2.25 011 Left -0.75 -0.75 100 Manifest Refraction #3 (Subjective) Sphere Cylinder [place] Add Right -0.25 -1.50 005 [...] cyl) Natalie Davis, OD 03/05/2024, 10:50 AM Knot Bumper Source: ___ None _x__ Bilingual Staff ___ Qualified Staff Sap Enterprise Portal Consultant ___ Telephone Knot Bumper; ID# ___ Knot Bumper brought by patient (family member, friend, DETASSELING CREW SUPERVISOR, etc) ___ In person stummel selector ___ Ipad Knot Bumper; ID#: Language Spoken During Exam: Malagasy and Guinean documented in this encounter Plan of Treatment Upcoming Encounters Date Type Department Care Team (Late st Contact Info) Description 04/15/2024 9:30 AM EST Clinical Support [facility] MEDICINE [address] [place] [phone] Sonali Stubbs, RN [address] [place] [address] 04/16/2024 10:00 AM EST Office Visit [facility] MEDICINE [address] [place] [phone] Name, MD Ananda [address] [place] [address] 06/04/2024 9:45 AM EDT Office Visit [facility] OPTOMETRY [address] [place] [address] Natalie Davis, OD [address] [place] [address] documented as of this encounter Procedures Procedure Name Priority Date/Time Associated Diagnosis Comments OCT, RETINA - OU - BOTH EYES Routine 03/05/2024 10:46 AM EST Other specified disorders of choroid documented in this encounter Results * OCT, Retina - OU - Both Eyes (03/05/2024 10:46 AM EST) Natalie Hoff, OD - 03/05/2024 10:46 AM EST OCT [...] disorder both eyes (OU). RTC 3 months. us Natalie Davis OD OPHTH TOMOGRAPHY Edited Result [...] documented as of this encounter Care Teams University Services Program Associate Relationship Specialty Start Date End Date Name, MD Ananda [address] [place] [phone] PCP - General Family Medicine 06/01/15 documented as of this encounter
--- OUTSIDE RECORDS SUMMARY | 2024-04-01 12:38 | XMS_ITS | Encounter Summary ---
Author Organization [employer] Address [address] [place] [address] Care Team Providers Care Rib Matcher And Fitter Name Role Phone Name, Ananda CRANDALL Primary Care Provider [phone] Encounter Details Date Type Department Care Team ([facility] Contact Info) Description 04/01/[address] [facility] MEDICINE [address] [place] [address] Torrie Balderrama, RN Social History Tobacco Use Types Packs/Day Years [...] t he electric, gas, oil or water [employer] threatened to shut off services in your [...] encounter Miscellaneous Notes * Telephone Encounter - Torrie Balderrama RN - 04/01/2024 11:37 AM EST Incoming pt to [facility] team informing [facility] staff of hospital admission from 03/29/24- 03/30/24 dx chest pain, COPD exacerbation, Malnutrition. Pt requesting HDF appointment. Pt booked with PCP on 04/16/24. [facility] records obtained and placed in medical records bin to be scanned into chart. documented in this encounter Plan of Treatment Upcoming Encounters Date Type Department Care Team (Late st Contact Info) Description 04/15/2024 9:30 AM EST Clinical Support [facility] MEDICINE [address] [place] [phone] Sonali Stubbs, RN [address] [place] [phone] 04/16/2024 10:00 AM EST Office Visit [facility] MEDICINE [address] [place] [phone] Name, MD Ananda [address] [place] [address] 06/04/2024 9:45 AM EDT Office Visit [facility] OPTOMETRY [address] [place] [address] Natalie Davis, OD [address] [place] [address] documented as of this encounter Visit Diagnoses Not on filedocumented in this encounter Additional Health Concerns Assessment Noted Time PHQ-9 Depression Total Score: 10 024 9:15 AM EDT documented as of this encounter Care Teams Rib Matcher And Fitter Relationship Specialty Start Date End Date Name, MD Ananda [address] [place] [address] PCP - General Family Medicine 06/01/15 documented as of this encounter
--- OUTSIDE RECORDS SUMMARY | 2024-04-01 12:38 | XMS_ITS | Encounter Summary ---
Author Organization [employer] Address [address] [place] [address] Care Team Providers Care Direct Marketing Intern Name Role Phone Name, Ananda CRANDALL Primary Care Provider [phone] Encounter Details Date Type Department Care Team (Latest Contact Info) Description 01/06/2019 Abstract [facility] CONVERSIONS Dental, Provider, DDS Social History Tobacco [...] 9:30 AM EST Clinical Support [facility] MEDICINE [address] [place] [phone] Sonali Stubbs, RN [address] [place] [phone] 04/16/2024 10:00 AM EST Office Visit [facility] MEDICINE [address] [place] [phone] Name, MD Ananda [address] [place] [phone] 06/04/2024 9:45 AM EDT Office Visit [facility] OPTOMETRY [address] [place] [phone] Natalie Davis, OD [address] [place] [address] documented as of this encounter Visit Diagnoses Not on filedocumented in this encounter Care Teams Direct Marketing Intern Relationship Specialty Start Date End Date Name, MD Ananda [address] [place] [address] PCP - General Family Medicine 06/01/15 documented as of this encounter
--- OUTSIDE RECORDS SUMMARY | 2024-04-01 12:38 | XMS_ITS | Encounter Summary ---
Author Organization [employer] Address [address] [place] [address] Care Team Providers Care Triage Specialist Name Role Phone Name, Ananda CRANDALL Primary Care Provider [phone] Reason for Visit * Reason Comments Med Refill Encounter Details Date Type Department Care Team ([facility] Contact Info) Description 03/16/2024 Refill [facility] MEDICINE [address] [place], [place] [phone] Name, MD Ananda [address] [place] [address] Type 2 diabetes mellitus with hyperglycemia, with long-term current use of insulin ([facility]) Social History Tobacco Use Types Packs/Day Years [...] 9:30 AM EST Clinical Support [facility] [address] [place] [phone] Sonali Stubbs, COREY [address] [place] [phone] 04/16/2024 10:00 AM EST Office Visit [facility] [address] [place] [phone] NameAnanda MD [address] [place] [phone] 06/04/2024 9:45 AM EDT Office Visit [facility] OPTOMETRY [address] [place] [address] Natalie Davis, OD [address] [place] [address] documented as of this encounter Visit Diagnoses Diagnosis Type 2 diabetes mellitus with hyperglycemia, with long-term current use of insulin ([facility]) documented in this encounter Additional Health Concerns Assessment Noted Time PHQ-9 Depression Total Score: 10 024 9:15 AM EDT documented as of this encounter Care Teams Triage Specialist Relationship Specialty Start Date End Date Ananda Spain MD [address] [place] [phone] PCP - General Family Medicine 06/01/15 documented as of this encounter
--- OUTSIDE RECORDS SUMMARY | 2024-04-01 12:38 | XMS_ITS | Clinical Summary ---
Author Organization [employer] Address [address] [place] [address] Care Team Providers Care Space [employer] Operations Craftsman Name Role Phone Name, Ananda CRANDALL Primary Care Provider [phone] Allergies No known active allergies Medications docusate sodium (Colace) 100 MG capsule Take 1 capsule by mouth at bed time. 021 Active glucose blood (LeosphereTouch Verio) test strip every 8 (eight) hours. [...] (CMS/HCC) 1 each 2 times daily. Call [facility] if consistently < 95% 1 each 023 Active Alcohol Swabs (Alcohol Prep) 70 % pads USE FOUR TIMES DAILY DIRECTED 023 Active clonazePAM (KlonoPIN) 1 MG tablet Take 1 mg by mouth 2 times daily. 023 Active Lancets (LeosphereTouch Delica Plus Icownx11X) [facility] [place] BLOOD SUGAR THREE TIMES DAILY 023 [...] ions:Chronic obstructive pulmonary disease, unspecified COPD type ([facility]) INHALE 1 AMPULE USING A NEBULIZER ONCE DAILY. RINSE MOUTH AFTER USING. 60 mL 3 023 Active glucose (Glutose 15) 40 % gel oral gelIndications: Type 2 diabetes mellitus without complication, with long-term current use of insulin ([facility]) TAKE 15 GRAMS BY MOUTH NEEDED FOR LOW BLOOD SUGAR 37.5 g 1 023 Active aspirin (Aspirin Low Dose) 81 MG EC tabletIndicatio ns:Pain of left leg TAKE 1 TABLET BY MOUTH DAILY IN THE MORNING 90 tablet 023 Active NovoLOG FLEXPEN 100 UNIT/ML penIndications: Diabetes mellitus type 2 in nonobese ([facility]) INJECT SUBCUTANEOUSLY THREE TIMES DAILY PER SLIDING SCALE: BLOOD SUGAR < 200: DO NOT USE, 201-250 = 2 UNITS, 251-300 = 4U, 301-350 = 8U, > 351 = 10U 15 mL 4 024 Active busPIRone (Buspar) 15 MG tablet Take 15 mg by mouth 2 times daily. 024 Active Continuous Glucose Sensor (FreeStyle Kasey 2 Sensor) [facility] USE DIRECTED TO TEST BLOOD SUGAR 8 TIMES PER DAY 2 each 024 Active Continuous Glucose Pipe Fitter Gas Pipe (FreeStyle Kasey 2 [place]) device Scan sensor every 8 hours 1 [...] ons:Chronic obstructive pulmonary disease, unspecified COPD type ([facility]) INHALE 2 PUFFS BY MOUTH EVERY 4 TO 6 HOURS NEEDED 18 g 5 024 Active montelukast (Singulair) 10 MG tabletIndicatio ns:Seasonal allergic rhinitis, unspecified trigger TAKE 1 TABLET BY MOUTH EVERY DAY AT BEDTIME 90 tablet 1 024 Active Pentips 32G X 4 MM miscIndications :Type 2 diabetes mellitus without complication, unspecified whether oysterman insulin use ([facility]) USE DIRECTED FOUR TIMES DAILY 100 each 5 024 Active glucose blood (FreeStyle Precision Isak Test) test stripIndication s:Type 2 diabetes mellitus with hyperglycemia, with long-term current use of insulin ([facility]) 1 each by Other route 3 times [...] 500 MG tabletIndicatio ns:Papillary renal cell carcinoma ([facility]) TAKE 1 TABLET BY MOUTH THREE TIMES DAILY 90 tablet 2 025 Active Suboxone 8-2 MG SL filmIndications :Uncomplicated opioid dependence ([facility]) Place 3 Film under the tongue Once [...] directed 90 tablet 024 2024 Discontinued Umeclidinium Plato (Incruse Ellipta) 62.5 MCG/ACT aerosol powderIndicatio ns:Chronic [...] Encounters Date Type Department Care Team Description 04/01/2024 Telephone [facility] [address] [place] [address] Torrie Balderrama, COREY 03/29/2024 Orders Only GENERIC EXTERNAL DATA DEPARTMENT Provider, Generic External Data 03/21/2024 Refill [facility] [address] [place] [address] Ananda Spain MD Chronic obstructive pulmonary disease, unspecified COPD type ([facility]/HCC) 03/18/2024 9:00 AM EST Clinical Support [facility] [address] [place] [address] Sonali Stubbs, COREY Uncomplicated opioid dependence ([facility]) (Primary Dx); Tobacco dependence 03/18/2024 Travel 03/16/2024 Refill [facility] [address] [place] [address] Ananda Spain MD Type 2 diabetes mellitus with hyperglycemia, with long-term current use of insulin ([facility]) 03/11/2024 Refill [facility] [address] [place] [address] Sonali Stubbs, RN Uncomplicated opioid dependence ([facility]) 03/11/2024 Telephone [facility] [address] [place] [address] Ananda Spain MD Durable Medical Equipment 03/08/2024 Refill [facility] [address] [place] [address] Ananda Spain MD Chronic obstructive pulmonary disease, unspecified COPD type ([facility]/HCC) 03/05/2024 9:45 AM EST Office Visit [facility] [address] [place] [address] Natalie Davis, OD Type 2 diabetes mellitus without ophthalmic manifestations ([facility]/HCC) (Primary Dx); Other specified disorders of choroid; Retinal scar of left eye; Regular astigmatism, bilateral; Reduced visual acuity 03/05/2024 Refill [facility] [address] [place] [phone] Ananda Spain MD Papillary renal cell carcinoma ([facility]/HCC) 03/05/2024 Travel 02/28/2024 11:00 AM EST Office Visit [address] [address] Ananda Spain MD Type 2 diabetes mellitus with hyperglycemia, with long-term current use of insulin ([facility]) (Primary Dx); Chronic obstructive pulmonary disease, unspecified COPD type ([facility]); Healthcare maintenance 02/28/2024 Telephone [facility] [address] [place] [phone] Ananda Spain MD Durable Medical Equipment (wipes) 02/28/2024 Travel 02/27/2024 Travel 02/25/2024 Telephone [facility] [address] [place] [phone] Crystal Stevens MA Chart Prep 02/19/2024 9:30 AM EST Office Visit [address] [address] Latrice Ibrahim MD Uncomplicated opioid dependence ([facility]) (Primary Dx) 02/19/2024 Travel 02/19/2024 Refill [facility] [address] [place] [phone] Ananda Spain MD 02/18/2024 Orders Only GENERIC EXTERNAL DATA DEPARTMENT Provider, Generic External Data 02/12/2024 Refill [facility] [address] [place] [phone] Sonali Stubbs, COREY Uncomplicated opioid dependence ([facility]/HCC) 01/28/[address] [address] Evelyn Reeves RN 01/22/2024 9:30 AM EST Clinical Support [address] [address] Maya Jolly, COREY Uncomplicated opioid dependence ([facility]) (Primary Dx) 01/22/2024 Patient Outreach [facility] [address] [place] [address] Osiel Mondragon 01/22/2024 Travel 01/17/2024 Telephone [facility] [address] [place] [address] Name, MD James Malave 01/15/2024 Refill [facility] [address] [place] [address] Sonali Stubbs, COREY Uncomplicated opioid dependence ([facility]) 01/06/2024 Refill [facility] [address] [place] [address] Kim Montez RN Type 2 diabetes mellitus with hyperglycemia, with long-term current use of insulin ([facility]) (Primary Dx) from Last 3 Months Immunizations Name Administration Dates Next Due Hep A, Adult 05/11/2009 Influenza injectable quadriv alent preservative free 01/21/2023,01/02/2022,02/10/2021,03/07,01/13/2019,01/11/2018 Influenza, Split (incl. aba fied surface antigen) 12/24/2012,11/06/2011 Influenza, seasonal, injecta ble, preservative free 11/20/2023 Juan Manuel SARS-CoV-2 Vaccination 05/18/2020 Pfizer Covid-19 Vaccine 12+ [...] AM EST Clinical Support [facility] [address] [place] [address] Sonali Stubbs, COREY [address] [place] [address] 04/16/2024 10:00 AM EST Office Visit [facility] [address] [place] [address] Name, MD Ananda [address] [place] [address] 06/04/2024 9:45 AM EDT Office Visit [facility] [address] [place] [address] TarNatalie elizabeth, OD [address] [place] [address] Health Maintenance Due Date Last Done Comments [...] 08/16/2015 Colorectal Cancer Screening 08/15/2020 COVID-19 Vaccine ( season) 2023 02/10/2021, 05/18/2020 Depression Monitoring (PHQ-9) 01/10/2024 07/10/2023, 07/10/2023 Diabetes: Urine Protein Screening 05/13/2024 05/14/2023, 02/13/2022, 05/09/2021, Additional history exists Lipid Panel 05/13/2024 05/14/2023, 02/01, 05/09/2021 Diabetes: Hemoglobin A1C 05/28/202402/27/2 024, 11/20/2023, 07/24/2023, Additional history exists Depression Screening 07/09/2024 07/10/2023, 07/10/19 SDOH Screening 07/09/2024 07/10/2023 Diabetes: Foot Exam 07/23/2024 07/24/2023, 07/24/2023, 07/24/2023, Additional history exists DTaP/Tdap/Td Vaccines (3 - Td or Tdap) 08/14/2024 08/14/2014, 05/25/2011 Tobacco Screening 03/05/2025 03/05/2024 Eye Exam 03/05/2026 03/05/2024, 04/2024, 03/05/2024, Additional history exists RSV Patients and Patients Aged 60 years or older (1 - 1-dose 75+ series) 2041 Pneumococcal Vaccine: 50+ Years Completed 01/21/2023, 05/25/2011 HIV Screening Completed 03/29/2023, 07/06/2020 Hepatitis C Screening Completed 03/29/2023, 024 Influenza Vaccine Completed 03/30/2024, , 01/21/2023, Additional history exists HIB Vaccines Aged Out [...] 1 VIEW Routine 03/29/2024 12:43 PM EST BASIC METABOLIC PANEL Routine 03/29/2024 11:41 AM EST HEPATIC FUNCTION PANEL Routine 03/29/2024 11:41 AM EST APTT Routine 03/29/2024 11:40 AM EST HIGH SENSITIVITY TROPONIN I Routine 03/29/2024 11:40 AM EST PROTHROMBIN TIME-INR Routine 03/29/2024 11:40 AM EST CBC WITH AUTO DIFFERENTIAL Routine 03/29/2024 11:40 AM EST SARS COV2/INFLUENZA A/B AND RSV RNA QL NAAT Routine 03/29/2024 11:40 AM EST POCT FARA-14 [...] Recently Relevant to Health Maintenance Results * XR Chest 1 View (03/29/2024 12:43 PM EST) Anatomical Region Laterality Modality Chest Radiographic Altagracia ging 03/29/2024 12:4 3 PM EST Narrative 03/29/2024 12:44 PM EST ? [facility] ?[address] ?[place] [address] ?XRay Report ? Signed ? Patient: Hubert Cruz ?MR#: ?? [id number] ? : 1965 ?Acct:[id number] ? Age/Sex: 58 / M ?ADM Date: 03/29/24 ? Loc: HO.ED ? Attending Dr: ? Ordering Physician: Tiffanie Ulloa NP ?? Date of Service: 03/29/24 ?? Procedure(s): XR chest 1V ?? Accession Number(s): [id number] ? cc: Ananda Spain MD; Tiffanie Ulloa NP ? CLINICAL HISTORY: cough, shortness of breath ? 1 view chest x-ray ? Comparison: CR/SR - XR CHEST 2V - 12/19/21 14:24 EDT ?? [place] [id number] - 02/26/19 13:51 EST ? Findings: ?? [...] by Aubrey Low MD in OV> ? 03/29/241243 ? DD/ 1243 ? TD/TT: 03/29/243 ? Button Clamper: ? Procedure Note Donotuseinterpreter, Image - 03/29/[address] [address] XRay Report Signed Patient: Hubert Cruz MMR#: [id number] : 1965Acct:[id number] Age/Sex: 58 / MADM Date: 03/29/24 Loc: HO.ED Attending Dr: Ordering Physician: Tiffaine Ulloa NP Date of Service: 03/29/24 Procedure(s): XR chest 1V Accession Number(s): [id number] cc: Name,Ananda CRANDALL; Tiffanie Ulloa NP CLINICAL HISTORY: cough, shortness of breath 1 view chest x-ray Comparison: CR/SR - XR CHEST 2V - 12/19/21 14:[address] [id number] - 02/26/19 13:51 EST Findings: Overinflation and [...] 03/29/24 1244 DD/ 1243 TD/TT: 03/29/24 1243 Button Clamper: us [facility] External Provider IMG XR PROCEDURES Edited Result - Final * (ABNORMAL) Hepatic Function Panel (03/29/2024 11:41 AM EST) Bilirubin, Total 1.3(H) 0.0 - 1.0 mg/dL [facility] Bilirubin, Direct 0.4 0.0 - 0.5 mg/dL [facility] Aspartate Amino Transferase 22 5 - 37 U/L [facility] Alanine Aminotransferase 16 0 - 40 U/L [facility] Total Protein 7.8 6.5 - 8.0 g/dL [facility] Albumin Level 4.7 3.5 - 5.0 g/dL [facility] Alkaline Phosphatase 66 39 - 117 U/L [facility] 03/29/2024 11:4 1 AM EST 03/29/2024 11:44 AM EST us Generic External Data Provider LAB BLOOD ORDERAB LES Final Result [facility] [address] [place] [address] [phone] * (ABNORMAL) Basic Metabolic Panel (03/29/2024 11:41 AM EST) Sodium 139 135 - 145 mmol/L [facility] Potassium 4.9 3.3 - 5.1 mmol/L [facility] Chloride 103 96 - 108 mmol/L [facility] Carbon Dioxide 30(H) 22 - 29 mmol/L [facility] Anion Gap 11(L) 12 - 20 [facility] Urea Nitrogen (BUN) 15 9 - 16 mg/dL [facility] Creatinine, Serum 0.96 0.5 - 1.4 mg/dL [facility] Creatinine Clr Calc Pharmacy 65.6 [facility] Comment:eGFR (calculated fro m the MDRD study equation) and eCrCl(calculated from the Cockcroft-Gault equation) are based ondifferent parameters and may not yield comparable results.If eCrCl result is absurd, please check patient'sheight/weight. Estimated Glomerular Filt Rate >60 [facility] Comment:Chronic Kidney Disea se: Estimated GFR < 60 mL/min/1.22z5Vtftxg Kidney Disease: Estimated GFR < 15 mL/min/1.73m2 Glucose 203(H) 60 - 115 mg/dL [facility] Calcium 9.9 8.4 - 10.2 mg/dL [facility] 03/29/2024 11:4 1 AM EST 03/29/2024 11:44 AM EST Generic External Data Provider LAB BLOOD ORDERAB LES Final Result Performing Organization Address [facility] Co de Phone Number [facility] [address] [place] [phone] * High Sensitivity Troponin I (03/29/2024 11:40 AM EST) TROPONIN I HIGH SENSITIVITY 12.5 <3.5 - 35.0 ng/L [facility] Comment:The [place] high sens itivity Troponin-I results should beused in conjunction with other diagnostic information suchas ECG, clinical observations and information, and patientsymptoms to aid in the diagnosis of UT. 03/29/2024 11:4 0 AM EST 03/29/2024 11:44 AM EST Generic External Data Provider LAB BLOOD ORDERAB LES Final Result Performing Organization Address [facility] Co de Phone Number [facility] [address] [place] [phone] * SARS-CoV-2 RNA, Influenza A/B, and RSV RNA, Ql NAAT (03/29/2024 11:40 AM EST) Pathologist [facility] Influenza A PCR NEGATIVE Negative [facility] Influenza B PCR NEGATIVE Negative [facility] Resp Syncy Virus RNA Qual PCR NEGATIVE Negative [facility] SARS COV2 PCR NEGATIVE Negative [facility] Comment:All test results mus t [...] use by authorized laboratories.Testing performed on the [employer] GeneXpert utilizingreal-time RT-PCR.All SARS CoV2 and positive influenza A/B results arereported to [facility]. 03/29/2024 11:4 0 AM EST 03/29/2024 11:44 AM EST us Generic External Data Provider LAB MICROBIOLOGY - GENERAL ORDERABLES Final Result [facility] [address] [place] [phone] * (ABNORMAL) CBC auto differential (03/29/2024 11:40 AM EST) White Blood Count 7.2 4.8 - 10.8 X10*3/uL [facility] Red Blood Count 5.00 4.60 - 5.80 X10*6/uL [facility] Hemoglobin 14.7 14.0 - 18.0 g/dl [facility] Hematocrit 44.6 42.0 - 52.0 % [facility] Mean Corpuscular Volume 89.2 80.0 - 98.0 fL [facility] Mean Corpuscular Hemoglobin 29.4 27.0 - 33.0 pg [facility] Mean Corpuscular HGB Conc 33.0 31.0 - 36.0 g/dl [facility] Red Cell Distribution Width 13.4 11.0 - 16.0 % [facility] Platelet Count 246 160 - 400 X10*3/uL [facility] Mean Platelet Volume 10.0 9.4 - 12.4 fL [facility] Neutrophils Percent Auto 46.8 45 - 73 % [facility] Imm Gran Pct Auto 0.3 0.0 - 0.4 % [facility] Lymphocytes Percent Auto 26.2 20 - 40 % [facility] Monocytes Percent Auto 9.4 2 - 11 % [facility] Eosinophils Percent Auto 15.5(H) 0 - 4 % [facility] Basophils Percent Auto 1.8 0 - 2 % [facility] NRBC Pct Auto 0.0 0.0 - 0.2 /100WBC [facility] Neutrophils Absolute Auto 3.4 2.0 - 8.3 x10*3/uL [facility] Imm Gran Abs Auto 0.02 0.00 - 0.03 X10*3/uL [facility] Lymphocytes Absolute Auto 1.9 1.2 - 4.9 X10*3/uL [facility] Monocytes Absolute Auto 0.7 0.1 - 1.2 X10*3/uL [facility] Eosinophils Absolute Auto 1.1(H) 0.0 - 0.4 X10*3/uL [facility] Basophils Absolute Auto 0.1 0.0 - 0.2 X10*3/uL [facility] NRBC Abs Auto 0.000 0.0 - 0.012 X10*3/uL [facility] 03/29/2024 11:4 0 AM EST 03/29/2024 11:44 AM EST us Generic External Data Provider LAB BLOOD ORDERAB LES Final Result Performing Organization Address City/[facility]/ZIP Co de Phone Number [facility] [address] [place] [phone] * Partial Thromboplastin Time, Activated (APTT) (03/29/2024 11:40 AM EST) Partial Thromboplastin Time 30.0 26.0 - 36.8 SEC [facility] Comment:For information rega rding the monitoring of direct thrombininhibitors, please refer to Pharmacy. 03/29/2024 11:4 0 AM EST 03/29/2024 11:44 AM EST us Generic External Data Provider LAB BLOOD ORDERAB LES Final Result Performing Organization Address [facility]/ZIP Co de Phone Number [facility] [address] [place] [phone] * Prothrombin Time-INR (03/29/2024 11:40 AM EST) Prothrombin Time 11.7 10.9 - 12.4 SEC [facility] INTERNATIONAL NORM RATIO 1.0 0.9 - 1.1 [facility] Comment:INTERNATIONAL NORMAL IZED RATIO (INR) [...] ORDERAB LES Final Result Performing Organization Address City/State/[facility] Co de Phone Number [facility] [address] [place] [phone] * POCT FARA-14 Urine Drug Screen [...] Media Lot # [id number] Lot# Expiration Date [id number] Blood 02/28/2024 10:4 4 AM EST Ananda Spain MD POINT OF CARE TEST ENTER/EDIT OR DERABLES Final Result * (ABNORMAL) POCT Glucose (02/28/2024 10:43 AM EST) Glucose Blood, POC 209(A) 60 - 200 mg/dL QC Media Lot # [id number] Lot# Expiration Date 5,025 Blood Capillary blood specimen / Unknown 02/28/2024 10:43 AM EST Ananda Spain MD POINT OF CARE TEST ENTER/EDIT OR DERABLES Final Result * (ABNORMAL) Glucose, Whole Blood (02/18/2024 1:10 PM EST) Glucose, Whole Blood 132(H) 60 - 115 mg/dL [facility] Comment:METER #: [id number] 5Testing performed in the Endocrinology Department [address] , [address], [place] [facility] 02/18/2024 1:10 PM EST 02/18/2024 1:15 PM EST us Generic External Data Provider LAB BLOOD ORDERAB LES Final Result Performing Organization Address [facility]/ZIP Co de Phone Number [facility] [address] [place] [phone] * Lipid Panel, Standard (05/14/2023 8:29 AM EDT) Triglycerides 76 <150 mg/dL [facility] Comment:Desirable Triglyceri de: less than 150 mg/dLBorderline High Triglyceride 150-199 mg/dLHigh Triglyceride: 200-499 mg/dLVery High Triglyceride: greater than or equal to 5OO mg/dL Cholesterol 189 <200 mg/dL [facility] Comment:Desirable Cholestero l: less than 200 mg/dLBorderline High Cholesterol: 200-239 mg/dLHigh Cholesterol: greater than 239 mg/dL LDL Cholesterol Calculated 82 <100 mg/dL [facility] Comment:Desirable LDL: less than 100 mg/dLNear Optimal/Above Optimal LDL: 110- 129 mg/dLBorderline High LDL: 130-159 mg/dLHigh LDL: 160-189 mg/dLVery High LDL: greater than or equal to 190 mg/dL HDL Cholesterol 92 >40 mg/dL [facility] Comment:Desirable HDL: great er than 40 mg/dL Note: This HDL assay may give artificially low results in patients with liver disease. 05/14/2023 8:29 AM EDT 05/14/2023 8:29 AM EDT us Generic External Data Provider LAB BLOOD ORDERAB LES Final Result Performing Organization Address City/[facility]/ZIP Co de Phone Number [facility] [address] [place] [phone] [phone] * Albumin, Random Urine W/Creatinine (05/14/2023 8:16 AM EDT) Creatinine, Urine 156.10 mg/dL [facility] Microalbumin Urine 45.0 mg/L [facility] Microalbum Creatinine Ratio Ur 28.8 <30 ug/mg cr [facility] Comment:Albumin/Creatinine R atio Reference Ranges: Normal: < 30 ug/mg creatinine Microalbuminuria: 30 - 300 ug/mg creatinineClinical Albuminuria: > 300 ug/mg creatinine 05/14/2023 8:16 AM EDT 05/14/2023 9:26 AM EDT us Generic External Data Provider LAB URINE ORDERAB LES Final Result Performing Organization Address [facility] Co de Phone Number [facility] [address] [place] [phone] * (ABNORMAL) Hepatitis C Antibody with Reflex to HCV, RNA, Quantitative, Real- Time PCR (03/29/2023 9:12 AM EST) Hepatitis C Antibody Reactive( A) Nonreactive [facility] Comment:Presumptive evidence of antibodies to HCV. 03/29/2023 9:12 AM EST 03/29/2023 11:11 AM EST us Latrice Ibrahim MD LAB BLOOD ORDERABLES Final Resul t Performing Organization Address [facility] Co de Phone Number [facility] [address] [place] [phone] * HIV-1/2 Antigen and Antibodies, Fourth Generation, with Reflexes (03/29/2023 9:12 AM EST) HIV AB/AG Nonreactive Nonreactive [facility] Comment:HIV-1 p24 Ag and/or HIV-1/HIV-2 Ab not detected.A test result that is nonreactive does not exclude thepossibility of exposure to or infection with HIV-1 and/orHIV-2. Nonreactive results in this assay for individualswith prior exposure to HIV-1 and/or HIV-2 may be due toantigen and antibody levels that are below the limit ofdetection of this assay.The [employer] HIV Ag/Ab Combo assay result andsupplemental assay results should be interpreted inconjunction with the patient's clinical presentation,history and other laboratory results. If the results areinconsistent with clinical evidence, additional testing issuggested to confirm the result. 03/29/2023 9:12 AM EST 03/29/2023 11:11 AM EST us Latrice Ibrahim MD LAB BLOOD ORDERABLES Final Resul t [facility] [address] [place] [phone] * Hm Colonoscopy (08/16/2015 1:52 PM EDT) Colonoscopy Normal Normal Narrative Gloria Álvarez - 08/16/2015 1:52 PM EDT Recommended 10 year follow up us Historical Provider HEALTH MAINTENANCE Final Result from Last 3 Months or Most Recently Relevant to Health Maintenance Insurance [facility] Care Teams Space Systems Operations Craftsman Relationship Specialty Start Date End Date Name, MD Ananda [address] [place] [phone] PCP - General Family Medicine 06/01/15
--- OUTSIDE RECORDS SUMMARY | 2024-04-01 12:38 | XMS_ITS | Encounter Summary ---
Author Organization [employer] Address [address] [facility] [address] 7t [place] [address] Care Team Providers Care Application Integrator Name Role Phone Name, Ananda CRANDALL Primary Care Provider [phone] Encounter Details Date Type Department Care Team [...] Description 04/15/2024 9:30 AM EST Clinical Support [facility] [address] [place] [address] Sonali Stubbs, RN [address] [place] [address] 04/16/2024 10:00 AM EST Office Visit [facility] [address] [place] [address]65 NameAnanda MD [address] [place] [address] 06/04/2024 9:45 AM EDT Office Visit [facility] OPTOMETRY [address] [place] [address] TarkaNatalie, OD 267 [place] [address] documented as of this encounter Visit Diagnoses Not on filedocumented in this encounter Additional Health Concerns Assessment Noted Time PHQ-9 Depression Total Score: 10 024 9:15 AM EDT documented as of this encounter Care Teams Application Integrator Relationship Specialty Start Date End Date NameAnanda MD [address] [place] [address] PCP - General Family Medicine 06/01/15 documented as of this encounter
--- OUTSIDE RECORDS SUMMARY | 2024-04-01 12:38 | XMS_ITS | Encounter Summary ---
Author Organization [employer] Address [address] [facility] [address] 7t [place] [address] Care Team Providers Care Energy Efficiency Specialist Name Role Phone Name, Ananda CRANDALL Primary Care Provider [phone] Encounter Details Date Type Department Care Team (Latest Contact Info) Description 01/09/2021 Abstract [facility] CONVERSIONS Dental, Provider, DDS Social History [...] 04/15/2024 9:30 AM EST Clinical Support [facility] MEDICINE [address] [place] [address] Sonali Stubbs, RN [address] [place] [address] 04/16/2024 10:00 AM EST Office Visit [facility] MEDICINE [address] [place] [address] Name, MD Ananda [address] [place] [address] 06/04/2024 9:45 AM EDT Office Visit [facility] OPTOMETRY [address] [place] [address] Natalie Davis, OD 267 [place] [address] documented as of this encounter Visit Diagnoses Not on filedocumented in this encounter Care Teams Energy Efficiency Specialist Relationship Specialty Start Date End Date Name, MD Ananda [address] [place] [address] PCP - General Family Medicine 06/01/15 documented as of this encounter
--- OUTSIDE RECORDS SUMMARY | 2024-04-01 12:38 | XMS_ITS | Encounter Summary ---
Author Organization [employer] Address [address] [facility] [address] 7t [place] [address] Care Team Providers Care Monkey Breeder Name Role Phone Name, Ananda CRANDALL Primary Care Provider [phone] Reason for Visit * Reason Onset Date Comments Appointment 09/06/2022 Encounter Details Date Type Department Care Team ([facility] Contact Info) Description 09/06/2022 Telephone [facility] ADULT DENTAL [address] [place], [place] [phone] Kelvin Haque, LENNY [address] [place] [address] Appointment Social History Tobacco Use Types Packs/Day [...] he can be scheduled to continue treatment DR documented in this encounter Plan of Treatment Upcoming Encounters Date Type Department Care Team (Late st Contact Info) Description 04/15/2024 9:30 AM EST Clinical Support [facility] MEDICINE [address] [place] [address] Sonali Stubbs, RN 230 [place] [address] 04/16/2024 10:00 AM EST Office Visit [facility] MEDICINE 230 [place] [address] Name, MD Ananda 230 [place] [address] 06/04/2024 9:45 AM EDT Office Visit [facility] OPTOMETRY [address] [place] [address] Natalie Davis, OD 267 [place] [address] documented as of this encounter Visit Diagnoses Not on filedocumented in this encounter Care Teams Monkey Breeder Relationship Specialty Start Date End Date Ananda Spain MD [address] [place] [address] PCP - General Family Medicine 06/01/15 documented as of this encounter
--- OUTSIDE RECORDS SUMMARY | 2024-04-01 12:39 | XMS_ITS | Encounter Summary ---
Author Organization [employer] Address [address] [facility] [address] 7t h [place] [address] Care Team Providers Care Athletic Trainer Name Role Phone Name, Ananda CRANDALL Primary Care Provider [phone] Reason for Visit * Reason Onset Date Comments Durable Medical Equipment 09/18/2022 Encounter Details Date Type Department Care Team ([facility] st Contact Info) Description 09/18/2022 Telephone [facility] MEDICINE 230 [place], [place] [phone] Name, MD Aannda 230 [place] [address] Durable Medical Equipment Social History Tobacco Use [...] 09/21/2022 1:49 PM EDT Incoming call from [facility] PT regarding message below. [facility] PT states they have no record of pt ever going to their offices and getting PT. Unsure what next steps should be at this point. * Telephone Encounter - Christy Finn RN - 09/21/2022 1:39 PM EDT TC X1 to [facility] PT [phone] regarding message below. LVM to return call to nurses. * Telephone Encounter - Lauren Walsh - 09/20/2022 3:14 PM EDT Tc from patient returning call back, regarding message below. Patient states he's going to PT in [facility]. [address] [place] [address] [place] [address] Dr. Mcdaniel. * Telephone Encounter - Christy [...] Description 04/15/2024 9:30 AM EST Clinical Support [facility] MEDICINE 230 [place] [address] Sonali Stubbs, RN 230 [place] [address] 04/16/2024 10:00 AM EST Office Visit [facility] MEDICINE 230 [place] [address] Name, MD Ananda 230 [place] [address] 06/04/2024 9:45 AM EDT Office Visit [facility] OPTOMETRY 267 [place] [address] Natalie Davis, OD 267 [place] [address] documented as of this encounter Visit Diagnoses Not on filedocumented in this encounter Care Teams Athletic Trainer Relationship Specialty Start Date End Date NameAnanda MD [address] [place] [address] PCP - General Family Medicine 06/01/15 documented as of this encounter
--- OUTSIDE RECORDS SUMMARY | 2024-04-01 12:39 | XMS_ITS | Encounter Summary ---
Author Organization [employer] Address [address] [facility] [address] 7t [place] [address] Care Team Providers Care Water Purifier Name Role Phone Name, Ananda CRANDALL Primary Care Provider [phone] Encounter Details Date Type Department Care Team ([facility] Contact Info) Description 08/13/2022 Abstract [facility] MEDICINE [address] [place] [address] Name, MD Ananda [address] [place] [address] Social History Tobacco Use Types Packs/Day Years [...] Upcoming Encounters Date Type Department Care Team ([facility] Contact Info) Description 04/15/2024 9:30 AM EST Clinical Support [facility] MED[facility]INE [address] [place] [address] Sonali Stubbs RN [address] [place] [address] 04/16/2024 10:00 AM EST Office Visit [facility] MEDICINE 230 [place] [address] Name, MD Ananda 230 [place] [address] 06/04/2024 9:45 AM EDT Office Visit [facility] OPTOMETRY 267 [place] [address] Griseldaclara Natalie, OD 267 [place] [address] documented as of this encounter Procedures Procedure Name Priority Date/Time Associated Diagnosis Comments COLONOSCOPY Routine 08/16/2015 1:52 PM EDT documented in this encounter Results * Colonoscopy (08/16/2015 1:52 PM EDT) Colonoscopy Normal Normal Narrative Gloria Álvarez - 08/16/2015 1:52 PM EDT Recommended 10 year follow up Historical Provider HEALTH MAINTENANCE Final Result documented in this encounter Visit Diagnoses Not on filedocumented in this encounter Care Teams Water Purifier Relationship Specialty Start Date End Date Name, MD Ananda [address] [facility] [place] [address] PCP - General Family Medicine 06/01/15 documented as of this encounter
--- OUTSIDE RECORDS SUMMARY | 2024-04-01 12:39 | XMS_ITS | Encounter Summary ---
Author Organization [employer] Address [address] [facility] [address] 7t [place] [address] Care Team Providers Care Medical Receptionist Name Role Phone Name, Ananda CRANDALL Primary Care Provider [phone] Reason for Visit * Reason Comments Med Refill Encounter Details Date Type Department Care Team ([facility] Contact Info) Description 06/07/2022 Refill [facility] [address] [place] [address] [phone] Sebastián Graves MD 230 [place], [place] [phone] Pain of left leg Social History Tobacco [...] Upcoming Encounters Date Type Department Care Team ([facility] Contact Info) Description 04/15/2024 9:30 AM EST Clinical Support [facility] 230 [place] [address] Sonali Stubbs RN 230 [place] [address] 04/16/2024 10:00 AM EST Office Visit [facility] 230 [place] [address] Name, MD Ananda 230 [place], [place] 06/04/2024 9:45 AM EDT Office Visit [facility] OPTOM[facility] [address] [place], [place] [phone] Natalie Davis, OD 267 [place] [address] documented as of this encounter Visit Diagnoses Diagnosis Pain of left leg documented in this encounter Care Teams Medical Receptionist Relationship Specialty Start Date End Date NameAnanda MD [address] [place] [address] PCP - General Family Medicine 06/01/15 documented as of this encounter
--- OUTSIDE RECORDS SUMMARY | 2024-04-01 12:39 | XMS_ITS | Encounter Summary ---
Author Organization [employer] Address 75 [facility] [address] 7t [place] [address] Care Team Providers Care Welding Robot Operator Name Role Phone Name, Ananda CRANDALL Primary Care Provider [phone] Reason for Visit * Reason Comments Med Refill Encounter Details Date Type Department Care Team ([facility] Contact Info) Description 12/11/2023 Refill [facility] 230 [place], [place] [phone] Name, MD Ananda 230 [place] [address] Type 2 diabetes mellitus without complication, unspecified whether residential insulin use ([facility]) Social History Tobacco Use [...] 9:30 AM EST Clinical Support [facility] [address] [place] [address] Sonali Stubbs, COREY [address] [place] [address] 04/16/2024 10:00 AM EST Office Visit [facility] [address] [place] [address] 69868 NameAnanda MD [address] [place] [address] 06/04/2024 9:45 AM EDT Office Visit [facility] OPTOMETRY 267 [place] [address] Natalie Davis, OD 267 [place] [address] documented as of this encounter Visit Diagnoses Diagnosis Type 2 diabetes mellitus without complication, unspecified whether intermission coordinator insulin use ([facility]) documented in this encounter Additional Health Concerns Assessment Noted Time PHQ-9 Depression Total Score: 10 024 9:15 AM EDT documented as of this encounter Care Teams Welding Robot Operator Relationship Specialty Start Date End Date Ananda Spain MD [address] [place] [address] PCP - General Family Medicine 06/01/15 documented as of this encounter
--- OUTSIDE RECORDS SUMMARY | 2024-04-01 12:39 | XMS_ITS | Encounter Summary ---
Author Organization [employer] Address [address] [facility] [facility] [address] 7t [place] [address] Care Team Providers Care Him Clerk Name Role Phone Name, Ananda CRANDALL Primary Care Provider [phone] Reason for Visit * Reason Onset Date Comments Durable Medical Equipment 06/08/2022 Encounter Details Date Type Department Care Team ([facility] st Contact Info) Description 06/08/2022 Telephone [facility] MED[facility] 230 [place], [place] [phone] Name, MD Ananda 230 [place] [address] Durable Medical Equipment Social History Tobacco Use [...] states unable to get a hold of regional education coordinator and would like to know if PCP can send script directly to [facility] . Please contact at [phone] * Telephone Encounter - Arleen Ramirez - 06/11/2022 11:28 AM EDT TC to patient and informed him to contact his rn homecare as a script for a recliner was emailed to her previously. Patient understood and agreed with plan. * Telephone Encounter - Darian Joiner - 06/08/2022 4:29 PM EDT Tc from pt requesting a script for a recliner chair to be send to [facility] please contact pt at [phone] documented in this encounter Plan of Treatment Upcoming Encounters Date Type Department Care Team (Late st Contact Info) Description 04/15/2024 9:30 AM EST Clinical Support [facility] MED[facility] [address] [place] [address] Sonali Stubbs, COREY [address] [place] [address] 04/16/2024 10:00 AM EST Office Visit [facility] [address] [place] [address] Name, MD Ananda 230 [place] [address] 06/04/2024 9:45 AM EDT Office Visit [facility] OPTOMETRY [address] [place] [address] Natalie Davis, MADIE 267 [place] [address] documented as of this encounter Visit Diagnoses Not on filedocumented in this encounter Care Teams Him Clerk Relationship Specialty Start Date End Date Name, MD Ananda [address] [place] [address] PCP - General Family Medicine 06/01/15 documented as of this encounter
--- OUTSIDE RECORDS SUMMARY | 2024-04-01 12:39 | XMS_ITS | Encounter Summary ---
Author Organization [employer] Address [address] [facility] [address] 7t [place] [address] Care Team Providers Care Dye Tub Tender Name Role Phone Name, Ananda CRANDALL Primary Care Provider Reason for Visit * Reason Onset Date Comments ER Follow-up 09/26/2022 Encounter Details Date Type Department Care Team ([facility] st Contact Info) Description 09/26/[address] [facility] MEDICINE 230 [place], [place] [phone] Name, MD Ananda 230 [place] [address] ER Follow-up Social History Tobacco Use Types [...] to pt. Through [employer] id - [id number] for below message, pt. 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 [facility] hours are reviewed. * Telephone Encounter - Hawa Morales - 10/01/2022 9:35 AM EDT Tc from pt returning call regarding message below. Please contact pt at [phone] (tunisian speaker) * Telephone Encounter - Em Leblanc RN - 09/27/2022 3:29 PM EDT T/C to pt. On [phone] through [employer] id - [id number] for status check and to schedule follow up apt. No answer. LVM to call back on [phone]. * Telephone Encounter - Netta Alvares - 09/26/2022 11:04 AM EDT Tc from pt calling to advise PCP of an ER visit to [facility] on 09/24/22 for surgery on the left leg. Pt advised will forward to team nurse for f/u. Please contact pt at [phone] (Montserratian) documented in this encounter Plan of Treatment Upcoming Encounters Date Type Department Care Team (Late st Contact Info) Description 04/15/2024 9:30 AM EST Clinical Support [facility] MEDICINE [address] [place] [address] [place] [address] Sonali Stubbs, RN 230 [place] [address] 04/16/2024 10:00 AM EST Office Visit [facility] MEDICINE 230 [place] [address] Name, MD Ananda [address] [place] [address] 06/04/2024 9:45 AM EDT Office Visit [facility] OPTOMETRY 267 [place] [address] Natalie Davis, OD 267 [place] [address] documented as of this encounter Visit Diagnoses Not on filedocumented in this encounter Care Teams Dye Tub Tender Relationship Specialty Start Date End Date Name, MD Ananda [address] [place] [address] PCP - General Family Medicine 06/01/15 documented as of this encounter
--- OUTSIDE RECORDS SUMMARY | 2024-04-01 12:39 | XMS_ITS | Encounter Summary ---
Author Organization [employer] Address [address] [facility] [address] 7t [place] [address] Care Team Providers Care Lawn Mower Operator Name Role Phone Name, Ananda CRANDALL Primary Care Provider [phone] Reason for Visit * Reason Comments Med Refill Encounter Details Date Type Department Care Team ([facility] st Contact Info) Description 09/19/2023 Refill [facility] [address] [place], [place] [phone] Name, MD Ananda 230 [place] [address] Pain of left leg Social History Tobacco [...] AM EST Clinical Support [facility] MEDICINE [address] [place] [address] Sonali Stubbs, COREY [address] [place] [address] 04/16/2024 10:00 AM EST Office Visit [facility] [address] [place] [address] Name, MD Ananda [address] [place] [address] 06/04/2024 9:45 AM EDT Office Visit [facility] OPTOMETRY [address] [place] [address] Natalie Davis OD [address] [place] [address] documented as of this encounter Visit Diagnoses Diagnosis Pain of left leg documented in this encounter Additional Health Concerns Assessment Noted Time PHQ-9 Depression Total Score: 10 024 9:15 AM EDT documented as of this encounter Care Teams Lawn Mower Operator Relationship Specialty Start Date End Date NameAnanda MD [address] [place] [address] PCP - General Family Medicine 06/01/15 documented as of this encounter
== END 2024-04-01 11:31 | disposition home or self-care (01) ==
LOC: HO.HUSH 10:32
PROVIDERS: PCP Internal Medicine Geriatric Medicine; Visit Provider Urology
DX: N40.0 Benign prostatic hyperplasia without lower urinary tract symptoms (principal); C64.9 Malignant neoplasm of unspecified kidney, except renal pelvis
CPT/HCPCS: 99213

== ENCOUNTER → 2024-04-01 10:32 | Outpatient (BNVA) | payer OTHER, SELFPAY | PROVIDERS: PCP Internal Medicine Geriatric Medicine; Visit Provider Urology | DX: N40.0 Benign prostatic hyperplasia without lower urinary tract symptoms (principal); C64.9 Malignant neoplasm of unspecified kidney, except renal pelvis | CPT/HCPCS: 99212 ==

== ENCOUNTER 2024-04-12 13:25 | Emergency (ER) | payer OTHER, SELFPAY ==
--- NOTE | ~2024-04-12 | XR_ITS ---
CLINICAL HISTORY: SOB 2 view chest x-ray Comparison: CR - XR CHEST 1V - 03/29/24 11:18 EST Findings: Small calcified granuloma within the left lower lung. No consolidation or pleural effusion. Normal size heart. No acute fracture. IMPRESSION: 1. No acute findings. This document has been electronically signed by: Kim Acuna MD on 04/12/2024 15:17:02
[2024-04-12 13:51] VITALS: BP 112/73; PULSE 114; RESP 18; TEMP 37.3; O2SAT 92; BMI 19.0
--- NOTE | 2024-04-12 13:51 | ED_ITS ---
HPI - Asthma General Chief Complaint: Asthma Stated Complaint: asthma Related Data Home Medications ?Medication ?Instructions ?Recorded ?Confirmed aspirin 81 mg tablet,delayed 81 mg PO DAILY 01/25/20 11/01/23 release (Adult Low Dose Aspirin) blood sugar diagnostic #10 ea 01/25/20 11/01/23 budesonide 1 mg/2 mL suspension 1 mg inhalation DAILY PRN 01/25/20 11/01/23 for nebulization (Pulmicort) Shortness Of Breath Or Wheezing docusate sodium 100 mg capsule 100 mg PO DAILY PRN Constipation 01/25/20 11/01/23 (DOK) lancets 33 gauge #100 ea 01/25/20 11/01/23 montelukast 10 mg tablet 10 mg PO DAILY 01/25/20 11/01/23 (Singulair) nicotine 7 mg/24 hr daily 1 patch transdermal DAILY 01/25/20 11/01/23 transdermal patch (Nicoderm CQ) pen needle, diabetic 32 gauge x #50 ea 01/25/20 11/01/2332 sennosides 8.6 mg capsule (senna) 8.6 mg PO DAILY 01/25/20 11/01/23 albuterol sulfate 90 mcg/actuation 2 puff inhalation Q4H PRN 07/07/20 11/01/23 aerosol inhaler (Ventolin HFA) shortness of breath or wheeze clonazepam 2 mg tablet (Klonopin) 2 mg PO BEDTIME 07/07/20 11/01/23 ramelteon 8 mg tablet (Rozerem) 8 mg PO BEDTIME 07/07/20 11/01/23 acetaminophen 500 mg tablet 500 mg PO ONCE PRN fever or pain 10/12/20 11/01/23 (Acetaminophen Pain Relief) buprenorphine 8 mg-naloxone 2 mg 10 mg sublingual BID 11/28/20 11/01/23 sublingual film (Suboxone) clonazepam 1 mg tablet (Klonopin) 1 mg PO BID PRN Anxiety 10/09/21 11/01/23 fluticasone furoate 100 1 ea inhalation DAILY 10/09/21 11/01/23 mcg-vilanterol 25 mcg/dose inhalation powder (Breo Ellipta) lidocaine 5 % topical patch 0 patch topical DAILY PRN Pain 06/14/22 11/01/23 (Lidoderm) naloxone 4 mg/actuation nasal 0 spray intranasal NEEDED PRN 06/14/22 11/01/23 spray (Narcan) Opioid Overdose blood sugar diagnostic ([facility] 09/14/22 11/01/23 Ultra Test strips) blood-glucose meter ([facility] 09/14/22 11/01/23 Ultra2 Meter) lancing device with lancets kit 09/14/22 11/01/23 ([employer] Delica Plus Lancing Device kit) atorvastatin 40 mg tablet (Lipitor) 40 mg PO DAILY 01/16/23 11/01/23 ibuprofen 800 mg tablet (IBU) 800 mg PO TID PRN pain 01/16/23 11/01/23 quetiapine 50 mg tablet (Seroquel) 50 mg PO BID 01/16/23 11/01/23 buspirone 15 mg tablet 15 mg PO BID 02/18/24 Previous Rx's ?Medication ?Instructions ?Recorded flash glucose scanning reader #1 ea 12/18/21 (FreeStyle Kasey 2 [place]) silver sulfadiazine 1 % topical 1 appl topical DAILY #20 grams 10/18/22 cream (Silvadene) flash glucose sensor (FreeStyle #2 kits 03/01/23 Kasey 2 Sensor kit) glucose 4 gram chewable tablet 16 g (4 x 4 gram) PO Q15M PRN 10/04/23 (Dex4 Glucose) hypoglycemia #100 tabs insulin degludec 100 unit/mL (3 10 unit (0.1 mL) subcut DAILY #15 11/01/23 mL) subcutaneous pen (Tresiba mL FlexTouch U-100 insulin) insulin aspart U-100 100 unit/mL See Rx Instructions subcut TID #15 03/02/24 (3 mL) subcutaneous pen (Novolog mL FlexPen U-100 Insulin aspart) Allergies Allergy/AdvReac Type Severity Reaction Status Date / Time No Known Allergies Allergy Verified 04/12/24 13:53 PMFSH Past Medical History Medical History Anxiety Tubular adenoma of colon History of pancreatitis Seborrheic dermatitis Mood disorder 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 pylori infection GERD (gastroesophageal reflux disease) Abdominal wall bulge Vitamin D deficiency HLD (hyperlipidemia) HTN (hypertension) T2DM (type 2 diabetes mellitus) Surgical History History of surgery Hx of hernia repair Hx of prior ablation treatment Hx of partial nephrectomy Hx of colonoscopy History of esophagogastroduodenoscopy (EGD) Family History Family History Father Liver cancer Diabetes Alcohol abuse Mother Diabetes Breast cancer Social History Social History Household Members: None Unable to assess alcohol history related to: Unknown Patient Tobacco Use Status: Current everyday Tobacco user Tobacco use type: Cigarette Cigarette Packs Per Day: 0.5 Cigarettes Per Day: 10 Advance Directives: No Advance Directives Information Provided: No Physical Exam 2 Vital Signs: Vital Signs: Last Vital Signs Temp 99.1 F 04/12/24 13:51 Pulse 100 04/12/24 16:58 Resp 22 H 04/12/24 16:58 BP 112/73 04/12/24 13:51 Pulse Ox 92 04/12/24 13:51 O2 Del Method Room Air 04/12/24 13:51 BMI result Body Mass Index 19.0 Course Course Course Narrative: This is an RME performed by Shraddha Rooney CNP: Additional HPI, ROS, PE not included below will be deferred to primary provider. Patient is a 59-year-old male presents emergency department endorsing an asthma exacerbation over the past 2 days not relieved with inhaler at home having productive cough, shortness of breath. Lung sounds with inspiratory and expiratory lesion, room air O2 saturation 93%, tachycardic. Plan: EKG, CXR, viral serologies, serum labs Reevaluation(s) Reevaluation #1: LWCT CBC is without leukocytosis, mild normocytic anemia, no thrombocytopenia. No electrolyte derangement. No EDWARD. Non-anion gap hyperglycemia 227. LFTs normal. High sensitive troponin within normal limits. BNP normal. Viral serologies negative. 2 view chest x-ray Comparison: CR - XR CHEST 1V - 03/29/24 11:18 EST Findings: Small calcified granuloma within the left lower lung. No consolidation or pleural effusion. Normal size heart. No acute fracture. IMPRESSION: 1. No acute findings. Time: 18:59 Medications Administered Discontinued Medications Generic Name Dose Route Start Last Admin Trade Name Freq PRN Reason Stop Dose Admin Albuterol Sulfate 5 mg/ 0 mg 04/12/24 16:54 04/12/24 16:58 Albuterol/Ipratropium 3 ml INHALE 04/12/24 16:55 1 each ONCE ONE Administration Medical Decision Making Lab Data 04/12/24 14:06 04/12/24 14:06 Labs: Lab Results 04/12/24 Range/Units 14:06 WBC 10.3 (4.8-10.8) X10*3/uL RBC 4.64 (4.60-5.80) X10*6/uL Hgb 13.8 L (14.0-18.0) g/dl Hct 41.9 L (42.0-52.0) % MCV 90.3 (80.0-98.0) fL MCH 29.7 (27.0-33.0) pg MCHC 32.9 (31.0-36.0) g/dl RDW 13.3 (11.0-16.0) % Plt Count 275 (160-400) X10*3/uL MPV 10.2 (9.4-12.4) fL Immature Gran % (Auto) 0.2 (0.0-0.4) % Neut % (Auto) 60.6 (45-73) % Lymph % (Auto) 18.4 L (20-40) % [place] % (Auto) 8.5 (2-11) % Eos % (Auto) 11.1 H (0-4) % Baso % (Auto) 1.2 (0-2) % Lymph # (Auto) 1.9 (1.2-4.9) X10*3/uL [place] # (Auto) 0.9 (0.1-1.2) X10*3/uL Eos # (Auto) 1.1 H (0.0-0.4) X10*3/uL Baso # (Auto) 0.1 (0.0-0.2) X10*3/uL Abs Immat Gran (auto) 0.02 (0.00-0.03) X10*3/uL Absolute Neuts (auto) 6.2 (2.0-8.3) x10*3/uL Absolute Nucleated RBC 0.000 (0.0-0.012) X10*3/uL Nucleated RBC % (auto) 0.0 (0.0-0.2) /100WBC PT 11.3 (10.9-12.4) SEC INR 1.0 (0.9-1.1) Sodium 141 (135-145) mmol/L Potassium 4.3 (3.3-5.1) mmol/L Chloride 102 (96-108) mmol/L Carbon Dioxide 29 (22-29) mmol/L Anion Gap 14 (12-20) BUN 18 H (9-16) mg/dL Creatinine 0.95 (0.5-1.4) mg/dL Estim Creat Clear Calc 64.1 Estimated GFR > 60 Random Glucose 227 H (60-115) mg/dL Calcium 10.0 (8.4-10.2) mg/dL Magnesium 1.9 (1.6-2.6) mg/dL Total Bilirubin 0.9 (0.0-1.0) mg/dL AST 30 (5-37) U/L ALT 24 (0-40) U/L Alkaline Phosphatase 56 (39-117) U/L Troponin I High Sens 6.3 (<3.5-35.0) ng/L B-Natriuretic Peptide 11 (<100) pg/mL Total Protein 7.7 (6.5-8.0) g/dL Albumin 4.7 (3.5-5.0) g/dL Influenza Type A (PCR) NEGATIVE (Negative) Influenza Type B (PCR) NEGATIVE (Negative) RSV RNA Qual (PCR) NEGATIVE (Negative) SARS-CoV-2 RNA (RT-PCR) NEGATIVE (Negative) Discharge Plan Discharge Clinical Impression: Shortness of breath Patient Disposition: Left W/O Completing Treatment Prescriptions: No Action (DME) FreeStyle Kasey 2 [place] Misc See Rx Instructions .Route Qty: 1 0RF Rx Instructions: As directed checks 8X/day (DME) FreeStyle Kasey 2 Sensor Kit See Rx Instructions .ROUTE .COMPLEX Qty: 2 4RF Dose Instruction: USE DIRECTED TO TEST BLOOD SUGAR 8 TIMES DAILY Rx Instructions: USE DIRECTED TO TEST BLOOD SUGAR 8 TIMES DAILY insulin aspart U-100 [Novolog FlexPen U-100 Insulin] 100 unit/mL (3 mL) insulin pen See Rx Instructions subcut TID Qty: 15 2RF Rx Instructions: inject sq 6 units with breakfast, 8 units with lunch, 4 units with supper. ibuprofen [IBU] 800 mg tablet 800 mg PO TID PRN (Reason: pain) quetiapine [Seroquel] 50 mg Tablet 50 mg PO BID atorvastatin [Lipitor] 40 mg tablet 40 mg PO DAILY acetaminophen [Acetaminophen Pain Relief] 500 mg tablet 500 mg PO ONCE PRN (Reason: fever or pain) docusate sodium [DOK] 100 mg capsule 100 mg PO DAILY PRN (Reason: Constipation) montelukast [Singulair] 10 mg tablet 10 mg PO DAILY aspirin [Adult Low Dose Aspirin] 81 mg tablet,delayed release (DR/EC) 81 mg PO DAILY senna 8.6 mg capsule 8.6 mg PO DAILY (DME) lancets 33 gauge misc See Rx Instructions .ROUTE .MEDSUPPLY Qty: 100 Rx Instructions: As directed nicotine [Nicoderm CQ] 7 mg/24 hr patch 24 hour 1 patch transdermal DAILY budesonide [Pulmicort] 1 mg/2 mL suspension for nebulization 1 mg inhalation DAILY PRN (Reason: Shortness Of Breath Or Wheezing) (DME) pen needle, diabetic 32 gauge x 5/32 needle See Rx Instructions .ROUTE QID Qty: 50 Rx Instructions: As directed (DME) FreeStyle Lite Strips Strip See Rx Instructions Not Applicable TID Qty: 10 Rx Instructions: As directed ramelteon [Rozerem] 8 mg tablet 8 mg PO BEDTIME albuterol sulfate [Ventolin HFA] 90 mcg/actuation HFA aerosol inhaler 2 puff inhalation Q4H PRN (Reason: shortness of breath or wheeze) clonazepam [Klonopin] 2 mg tablet 2 mg PO BEDTIME buprenorphine-naloxone [Suboxone] 8-2 mg film 10 mg sublingual BID (DME) lancing device with lancets [[employer] Delica Plus Lanc Dev] Kit See Rx Instructions .Route Rx Instructions: As directed (DME) blood-glucose meter [KickfireTouch Ultra2 Meter] Misc See Rx Instructions .Route Rx Instructions: As directed (DME) OneTouch Ultra Test Strip See Rx Instructions .Route Rx Instructions: As directed fluticasone furoate-vilanterol [Breo Ellipta] 100-25 mcg/dose blister with device 1 ea inhalation DAILY clonazepam [Klonopin] 1 mg tablet 1 mg PO BID PRN (Reason: Anxiety) naloxone [Narcan] 4 mg/actuation spray,non-aerosol 0 spray intranasal NEEDED PRN (Reason: Opioid Overdose) lidocaine [Lidoderm] 5 % adhesive patch,medicated 0 patch topical DAILY PRN (Reason: Pain) silver sulfadiazine [Silvadene] 1 % cream 1 appl topical DAILY Qty: 20 0RF Rx Instructions: apply a 1.5 mm thickness glucose [Dex4 Glucose] 4 gram tablet,chewable 16 g PO Q15M PRN (Reason: hypoglycemia) Qty: 100 0RF Rx Instructions: until symptoms of low blood sugar are controlled insulin degludec [Tresiba FlexTouch U-100] 100 unit/mL (3 mL) insulin pen 10 unit subcut DAILY Qty: 15 3RF buspirone 15 mg tablet 15 mg PO BID
--- NOTE | 2024-04-12 13:55 | ECG_ITS ---
Test Reason : SOB Blood Pressure : */* mmHG Vent. Rate : 109 BPM Atrial Rate : 109 BPM P-R Int : 148 ms QRS Dur : 76 ms QT Int : 320 ms P-R-T Axes : 78 89 64 degrees QTcB Int : 430 ms Sinus tachycardia Possible Left atrial enlargement Anterior infarct (cited on or before 28-Apr-2019) Abnormal ECG When compared with ECG of 29-Mar-2024 11:29, ST less elevated in Anterior leads Referred By: Pebbles Rooney Electronically Signed By: CRISTA SALGADO MD
--- OUTSIDE RECORDS SUMMARY | 2024-04-12 14:10 | XMS_ITS | Encounter Summary ---
Author Organization [employer] Address [address] [place] [address] Care Team Providers Care Carpenters Helper Name Role Phone Name, Ananda CRANDALL Primary Care Provider [phone] Reason for Visit * Reason Comments Med Refill Encounter Details Date Type Department Care Team ([facility] Contact Info) Description 03/08/2024 Refill [facility] [address] [place], [place] [phone] Name, MD Ananda [address] [place] [address] Chronic obstructive pulmonary disease, unspecified COPD type [...] EST Clinical Support [facility] [address] [place] [phone] Sonali Stubbs, RN [address] [place] [address] 04/16/2024 10:00 AM EST Office Visit [address] [address] Grabiel, MD Ananda [address] [place] [address] 05/13/2024 9:30 AM EDT Office Visit [facility] [address] [place] [address] Latrice Ibrahim MD [address] [place] [address] 06/04/2024 9:45 AM EDT Office Visit [facility] [address] [place] [address] Natalie Davis, MADIE [address] [place] [address] documented as of this encounter Visit Diagnoses Diagnosis Chronic obstructive pulmonary disease, unspecified COPD type (CMS/HCC) documented in this encounter Additional Health Concerns Assessment Noted Time PHQ-9 Depression Total Score: 10 024 9:15 AM EDT documented as of this encounter Care Teams Carpenters Helper Relationship Specialty Start Date End Date Name, MD Ananda [address] [place] [address] PCP - General Family Medicine 06/01/15 documented as of this encounter
--- OUTSIDE RECORDS SUMMARY | 2024-04-12 14:10 | XMS_ITS | Encounter Summary ---
Author Organization [employer] Address [address] [place] [address] Care Team Providers Care Stone Setter Name Role Phone Name, Ananda CRANDALL Primary Care Provider [phone] Reason for Visit * Reason Comments Med Refill Encounter Details Date Type Department Care Team ([facility] Contact Info) Description 04/25/2022 Refill [facility] [address] [place] [address] [phone] Name, MD Ananda [address] [place] [phone] Wheezing (Primary Dx) Social History Tobacco Use [...] Upcoming Encounters Date Type Department Care Team ([facility] Contact Info) Description 04/15/2024 9:30 AM EST Clinical Support [facility] [address] [place] [address] Sonali Stubbs RN [address] [place] [address] 04/16/2024 10:00 AM EST Office Visit [facility] [address] [place] [address] Name, MD Ananda [address] [place] [address] 05/13/2024 9:30 AM EDT Office Visit [facility] [address] [place] [address] Latrice Ibrahim MD [address] [place] [address] 06/04/2024 9:45 AM EDT Office Visit [facility] [address] [place] [address] Natalie Davis, OD [address] [place] [address] documented as of this encounter Visit Diagnoses Diagnosis Wheezing- Primary documented in this encounter Care Teams Stone Setter Relationship Specialty Start Date End Date Name, MD Ananda [address] [place] [address] PCP - General Family Medicine 06/01/15 documented as of this encounter
--- OUTSIDE RECORDS SUMMARY | 2024-04-12 14:10 | XMS_ITS | Encounter Summary ---
Author Organization [email or web address] Address [address] [facility] [address] [place] [address] Care Team Providers Care Spinning Frame Tender Name Role Phone Name, Ananda CRANDALL Primary Care Provider [phone] Reason for Visit * Reason Comments Med Refill Encounter Details Date Type Department Care Team ([facility] Contact Info) Description 03/16/2024 Refill [facility] [address] [place], [place] [phone] Name, MD Ananda [address] [place] [address] Type 2 diabetes mellitus with hyperglycemia, with long-term current use of insulin ([facility]) Social History Tobacco Use Types Packs/Day [...] EST Clinical Support [facility] [address] [place] [address] Sonali Stubbs, COREY [address] [place] [address] 04/16/2024 10:00 AM EST Office Visit [address] [address] Ananda Spain MD [address] [place] [address] 05/13/2024 9:30 AM EDT Office Visit [facility] [address] [place] [address] Latrice Ibrahim MD [address] [place] [address] 06/04/2024 9:45 AM EDT Office Visit [facility] [address] [place] [address] Natalie Davis, MADIE [address] [place] [address] documented as of this encounter Visit Diagnoses Diagnosis Type 2 diabetes mellitus with hyperglycemia, with long-term current use of insulin ([facility]) documented in this encounter Additional Health Concerns Assessment Noted Time PHQ-9 Depression Total Score: 10 024 9:15 AM EDT documented as of this encounter Care Teams Spinning Frame Tender Relationship Specialty Start Date End Date Name, MD Ananda [address] [place] [address] PCP - General Family Medicine 06/01/15 documented as of this encounter
--- OUTSIDE RECORDS SUMMARY | 2024-04-12 14:10 | XMS_ITS | Encounter Summary ---
Author Organization [employer] Address [address] [place] [address] Care Team Providers Care Window Sash Installer Name Role Phone Name, Ananda CRANDALL Primary Care Provider [phone] Reason for Visit * Reason Comments Med Refill Encounter Details Date Type Department Care Team ([facility] Contact Info) Description 03/21/2024 Refill [facility] [address] [place], [place] [phone] Name, MD Ananda [address] [place] [address] Chronic obstructive pulmonary disease, unspecified COPD type [...] Clinical Support [facility] [address] [place] [address] Sonali Stubbs, RN [address] [place] [address] 04/16/2024 10:00 AM EST Office Visit [address] [address] Grabiel, MD Ananda [address] [place] [address] 05/13/2024 9:30 AM EDT Office Visit [facility] [address] [place] [address] Latrice Ibrahim MD [address] [place] [address] 06/04/2024 9:45 AM EDT Office Visit [facility] [address] [place] [address] Natalie Davis, MADIE [address] [place] [address] documented as of this encounter Visit Diagnoses Diagnosis Chronic obstructive pulmonary disease, unspecified COPD type (CMS/HCC) documented in this encounter Additional Health Concerns Assessment Noted Time PHQ-9 Depression Total Score: 10 024 9:15 AM EDT documented as of this encounter Care Teams Window Sash Installer Relationship Specialty Start Date End Date Name, MD Ananda [address] [place] [address] PCP - General Family Medicine 06/01/15 documented as of this encounter
--- OUTSIDE RECORDS SUMMARY | 2024-04-12 14:10 | XMS_ITS | Encounter Summary ---
Author Organization [employer] Address [address] [place] [address] Care Team Providers Care Color Maker Formulator Name Role Phone Name, Ananda CRANDALL Primary Care Provider [phone] Reason for Visit * Reason Onset Date Comments Durable Medical Equipment 03/11/2024 Encounter Details Date Type Department Care Team ([facility] st Contact Info) Description 03/11/[address] [facility] [address] [place], [place] [phone] Name, MD Ananda [address] [place] [address] Durable Medical Equipment Social History Tobacco Use [...] . Confirmation received and sent to front desk attendant/[place] team for scanning. If patient calls to check status on above, please advise them to contact [employer] at [phone]. * Telephone Encounter - Robert Cleveland RN - 03/11/2024 11:12 AM EST Confirmation of order for Wipes from [employer] placed on PCP desk for signature. documented in this encounter Plan of Treatment Upcoming Encounters Date Type Department Care Team (Late st Contact Info) Description 04/15/2024 9:30 AM EST Clinical Support [facility] [address] [place] [phone] Sonali Stubbs RN [address] [place] [address] 04/16/2024 10:00 AM EST Office Visit [facility] [address] [place] [phone] Name, MD Ananda [address] [place] [address] 05/13/2024 9:30 AM EDT Office Visit [facility] [address] [place] [address] Latrice Ibrahim MD [address] [place] [address] 06/04/2024 9:45 AM EDT Office Visit [facility] OPT[facility] [address] [place], [place] [phone] Nataile Davis, OD [address] [place] [address] documented as of this encounter Visit Diagnoses Not on filedocumented in this encounter Additional Health Concerns Assessment Noted Time PHQ-9 Depression Total Score: 10 07/09/ 024 9:15 AM EDT documented as of this encounter Care Teams Color Maker Formulator Relationship Specialty Start Date End Date Name, MD Ananda [address] [place] [address] [phone] PCP - General Family Medicine 06/01/15 documented as of this encounter
--- OUTSIDE RECORDS SUMMARY | 2024-04-12 14:10 | XMS_ITS | Encounter Summary ---
Author Organization [employer] Address [address] [place] [address] Care Team Providers Care Box Office Attendant Name Role Phone NameAnanda MD Primary Care Provider [phone] Encounter Details Date Type Department Care Team ([facility] [address] Contact Info) Description 02/14/[address] [address] Provider, MD Damari Social History Tobacco Use [...] Description 04/15/2024 9:30 AM EST Clinical Support [address] [address] Sonali Stubbs, COREY [address] [place] [address] 04/16/2024 10:00 AM EST Office Visit [address] [phone] Name, MD Ananda [address] [place] [address] 05/13/2024 9:30 AM EDT Office Visit [facility] [address] [place] [address] Latrice Ibrahim MD [address] [place] [address] 06/04/2024 9:45 AM EDT Office Visit [facility] OPT[facility]RY [address] [place], [place] [phone] Natalie Davis, OD [address] [place] [address] documented as of this encounter Visit Diagnoses Not on filedocumented in this encounter Care Teams Box Office Attendant Relationship Specialty Start Date End Date Name, MD Ananda [address] [place] [address] PCP - General Family Medicine 06/01/15 documented as of this encounter
--- OUTSIDE RECORDS SUMMARY | 2024-04-12 14:10 | XMS_ITS | Encounter Summary ---
Author Organization [email or web address] Address [address] [place] [address] Care Team Providers Care Director Shopper Marketing Name Role Phone Name, Ananda CRANDALL Primary Care Provider [phone] Encounter Details Date Type Department Care Team (Latest Contact Info) Description 01/09/2021 Abstract [facility] CONVERSIONS Dental, Provider, DDS Social History Tobacco [...] Upcoming Encounters Date Type Department Care Team ( st Contact Info) Description 04/15/2024 9:30 AM EST Clinical Support [address] [address] Sonali Stubbs, RN [address] [place] [address] 04/16/2024 10:00 AM EST Office Visit [address] [address] Name, MD Ananda [address] [place] [address] 05/13/2024 9:30 AM EDT Office Visit [address] [address] Latrice Ibrahim MD [address] [place] [phone] 06/04/2024 9:45 AM EDT Office Visit [facility] [address] [place], [place] [phone] Natalie Davis, OD [address] [place] [address] documented as of this encounter Visit Diagnoses Not on filedocumented in this encounter Care Teams Director Shopper Marketing Relationship Specialty Start Date End Date Name, MD Ananda [address] [place] [address] PCP - General Family Medicine 06/01/15 documented as of this encounter
--- OUTSIDE RECORDS SUMMARY | 2024-04-12 14:10 | XMS_ITS | Encounter Summary ---
Author Organization [employer] Address [address] [facility] [address] 7[address] [place] [address] Care Team Providers Care Lawnmower Repair Mechanic Name Role Phone Name, Ananda CRANDALL Primary Care Provider [phone] Reason for Visit * Reason Onset Date Comments Med Refill 2024 Encounter Details Date Type Department Care Team ([facility] st Contact Info) Description 2024 Refill [facility] MED[facility] [address] [place], [place] [phone] Sonali Stubbs, RN 230 [place] [address] Uncomplicated opioid dependence (CMS/HCC) Social History Tobacco [...] Description 04/15/2024 9:30 AM EST Clinical Support [facility] MEDICINE [address] [place] [address] Sonali Stubbs, COREY [address] [place] [address] 04/16/2024 10:00 AM EST Office Visit [address] [address] Grabiel, MD Ananda [address] [place] [address] 05/13/2024 9:30 AM EDT Office Visit [address] [address] Latrice Ibrahim MD [address] [place] [address] 06/04/2024 9:45 AM EDT Office Visit [facility] OPT[facility] [address] [place] [address] Natalie Davis OD 267 [place] [address] documented as of this encounter Visit Diagnoses Diagnosis Uncomplicated opioid dependence (CMS/HCC) documented in this encounter Additional Health Concerns Assessment Noted Time PHQ-9 Depression Total Score: 10 024 9:15 AM EDT documented as of this encounter Care Teams Lawnmower Repair Mechanic Relationship Specialty Start Date End Date Name, MD Ananda 230 [place] [address] PCP - General Family Medicine 06/01/15 documented as of this encounter
--- OUTSIDE RECORDS SUMMARY | 2024-04-12 14:10 | XMS_ITS | Encounter Summary ---
Author Organization [employer] Address [address] 7t [place] [address] Care Team Providers Care Dehydrogenation Operator Head Name Role Phone Name, Ananda CRANDALL Primary Care Provider [phone] Reason for Visit * Reason Comments Med Refill Encounter Details Date Type Department Care Team (Late Contact Info) Description 12/07/2022 Refill [facility] MEDICINE [address] [place] [address] [phone] Name, MD Ananda [address] [place] [address] Type 2 diabetes mellitus without complication, unspecified whether jail insulin use ([facility]); Type 2 diabetes mellitus without complication, with long-term current use of insulin ([facility]) Social History Tobacco Use Types [...] Description 04/15/2024 9:30 AM EST Clinical Support [facility] MEDICINE [address] [place] [address] Sonali Stubbs, RN [address] [place] [address] 04/16/2024 10:00 AM EST Office Visit [facility] MEDICINE [address] [place] [address] Ananda Spain MD [address] [place] [address] 05/13/2024 9:30 AM EDT Office Visit [facility] MEDICINE [address] [place] [address] Latrice Ibrahim MD 230 [place] [address] 06/04/2024 9:45 AM EDT Office Visit [facility] OPTOMETRY [address] [place] [address] Natalie Davis OD 267 [place] [address] documented as of this encounter Visit Diagnoses Diagnosis Type 2 diabetes mellitus without complication, unspecified whether buttermaker helper insulin use ([facility]) documented in this encounter Additional Health Concerns Assessment Noted Time PHQ-9 Depression Total Score: 3 10/04/19 23 2:21 PM EDT documented as of this encounter Care Teams Dehydrogenation Operator Head Relationship Specialty Start Date End Date Ananda Spain MD [address] [place] [address] PCP - General Family Medicine 06/01/15 documented as of this encounter
--- OUTSIDE RECORDS SUMMARY | 2024-04-12 14:10 | XMS_ITS | Encounter Summary ---
Author Organization [employer] Address [address] [facility] [address] 7t [place] [address] Care Team Providers Care Mirror Framer Name Role Phone Name, Ananda CRANDALL Primary Care Provider [phone] Encounter Details Date Type Department Care Team [...] EST Clinical Support [facility] MED[facility]INE [address] [place] [address] Sonali Stubbs, RN [address] [place] [address] 04/16/2024 10:00 AM EST Office Visit [address] [address] Ananda Spain MD [address] [place] [address] 05/13/2024 9:30 AM EDT Office Visit [facility] [address] [place] [address] Latrice Ibrahim MD [address] [place] [address] 06/04/2024 9:45 AM EDT Office Visit [facility] OPTOM[facility] [address] [place] [address] Natalie Davis OD 267 [place] [address] documented as of this encounter Visit Diagnoses Not on filedocumented in this encounter Additional Health Concerns Assessment Noted Time PHQ-9 Depression Total Score: 10 024 9:15 AM EDT documented as of this encounter Care Teams Mirror Framer Relationship Specialty Start Date End Date Ananda Spain MD [address] [place] [address] PCP - General Family Medicine 06/01/15 documented as of this encounter
--- OUTSIDE RECORDS SUMMARY | 2024-04-12 14:10 | XMS_ITS | Encounter Summary ---
Author Organization [employer] Address [address] [facility] [address] 7t [place] [address] Care Team Providers Care Blocker Heated Metal Forms Name Role Phone Name, Ananda CRANDALL Primary Care Provider [phone] Encounter Details Date Type Department Care Team (Late Contact Info) Description 05/10/[address] [address] Alis Zavala, COREY Uncomplicated opioid dependence ([facility]) Social History Tobacco Use Types Packs/Day Years [...] Description 04/15/2024 9:30 AM EST Clinical Support [address] [address] Sonali Stubbs, COREY [address] [place] [address] 04/16/2024 10:00 AM EST Office Visit [address] [place] [address] Name, MD Ananda 230 [place] [address] 05/13/2024 9:30 AM EDT Office Visit [facility] MED[facility]INE 230 [place] [address] Latrice Ibrahim MD 230 [place] [address] 06/04/2024 9:45 AM EDT Office Visit [facility] OPTOMETRY 267 [place] [address] Natalie Davis, OD 267 [place] [address] documented as of this encounter Visit Diagnoses Diagnosis Uncomplicated opioid dependence (CMS/HCC) documented in this encounter Care Teams Blocker Heated Metal Forms Relationship Specialty Start Date End Date NameAnanda MD [address] [place] [address] [phone] PCP - General Family Medicine 06/01/15 documented as of this encounter
--- OUTSIDE RECORDS SUMMARY | 2024-04-12 14:10 | XMS_ITS | Encounter Summary ---
Author Organization [employer] Address [address] [facility] [address]t [place] [address] Care Team Providers Care Team Assistant Name Role Phone Name, Ananda CRANDALL Primary Care Provider [phone] Encounter Details Date Type Department Care Team ([facility] st Contact Info) Description 03/28/2023 Abstract [facility] MED[facility]INE 230 [place], [place] [phone] Name, MD Ananda 230 [place] [address] Social History Tobacco Use Types Packs/Day Years [...] t he electric, gas, oil or water [employer] threatened to shut off services in your [...] 9:30 AM EST Clinical Support [facility] MEDICINE [address] [place] [address] Sonali Stubbs, COREY [address] [place] [address] 04/16/2024 10:00 AM EST Office Visit [address] [address] Ananda Spain MD [address] [place] [address] 05/13/2024 9:30 AM EDT Office Visit [facility] MED[facility] [address] [place] [address] Latrice Ibrahim MD [address] [place] [address] 06/04/2024 9:45 AM EDT Office Visit [facility] OPTOMETRY [address] [place] [address] Natalie Davis, OD [address] [place] [address] documented as of this encounter Visit Diagnoses Not on filedocumented in this encounter Additional Health Concerns Assessment Noted Time PHQ-9 Depression Total Score: 3 10/04/19 23 2:21 PM EDT documented as of this encounter Care Teams Team Assistant Relationship Specialty Start Date End Date Ananda Spain MD [address] [place] [address] PCP - General Family Medicine 06/01/15 documented as of this encounter
--- OUTSIDE RECORDS SUMMARY | 2024-04-12 14:10 | XMS_ITS | Encounter Summary ---
Author Organization [employer] Address [address] [facility] [address]t [place] [address] Care Team Providers Care Online Advertising Analyst Name Role Phone Name, Ananda CRANDALL Primary Care Provider [phone] Encounter Details Date Type Department Care Team (Latest Contact Info) Description 01/06/2019 Abstract [facility] CONVERSIONS Dental, Provider, DDS Social History [...] Description 04/15/2024 9:30 AM EST Clinical Support [address] [address] Sonali Stubbs, RN [address] [place] [address] 04/16/2024 10:00 AM EST Office Visit [address] [address] Name, MD Ananda [address] [place] [address] 05/13/2024 9:30 AM EDT Office Visit [address] [address] Latrice Ibrahim MD [address] [place] [address] 06/04/2024 9:45 AM EDT Office Visit [facility] [address] [place], [place] [phone] Natalie Davis, OD 267 [place] [address] documented as of this encounter Visit Diagnoses Not on filedocumented in this encounter Care Teams Online Advertising Analyst Relationship Specialty Start Date End Date Name, MD Ananda [address] [place] [address] PCP - General Family Medicine 06/01/15 documented as of this encounter
--- OUTSIDE RECORDS SUMMARY | 2024-04-12 14:10 | XMS_ITS | Encounter Summary ---
Author Organization [facility] [employer] Address [address] [facility] [address] 7t [place] [address] Care Team Providers Care Vmware Architect Name Role Phone Name, Ananda CRANDALL Primary Care Provider [phone] Reason for Visit * Reason Onset Date Comments Appointment 09/06/2022 Encounter Details Date Type Department Care Team ([facility] Contact Info) Description 09/06/2022 Telephone [facility] 230 [place], [place] [phone] Kelvin Haque, LENNY 230 [place] [address] Appointment Social History Tobacco Use Types Packs/Day [...] 04/15/2024 9:30 AM EST Clinical Support [facility] MEDICINE [address] [place] [address] Sonali Stubbs, RN [address] [place] [address] 04/16/2024 10:00 AM EST Office Visit [address] [address] Name, MD Ananda [address] [place] [address] 05/13/2024 9:30 AM EDT Office Visit [address] [address] Latrice Ibrahim MD 230 [place] [address] 06/04/2024 9:45 AM EDT Office Visit [facility] OPTOMETRY 267 [place] [address] TarNatalie elizabeth, OD 267 [place] [address] documented as of this encounter Visit Diagnoses Not on filedocumented in this encounter Care Teams Vmware Architect Relationship Specialty Start Date End Date Name, MD Ananda [address] [place] [address] PCP - General Family Medicine 06/01/15 documented as of this encounter
--- OUTSIDE RECORDS SUMMARY | 2024-04-12 14:10 | XMS_ITS | Encounter Summary ---
Author Organization [employer] Address [address] [facility] [address] 7t [place] [address] Care Team Providers Care Communications Clerk Name Role Phone Name, Ananda CRANDALL Primary Care Provider Reason for Visit * Reason Onset Date Comments Prior Authorization 05/07/2022 Appointment 05/07/2022 Encounter Details Date Type Department Care Team ([facility] st Contact Info) Description 05/07/2022 Telephone [facility] 230 [place] [address] Kelvin Haque, DDS 230 [place] [address] Prior Authorization; Appointment Social History Tobacco Use [...] for partial. Don't see if [facility] has approved partials for patient. Patient verifying. DR documented in this encounter Plan of Treatment Upcoming Encounters Date Type Department Care Team (Late st Contact Info) Description 04/15/2024 9:30 AM EST Clinical Support [facility] [address] [place] [address] Sonali Stubbs, RN 230 [place] [address] 04/16/2024 10:00 AM EST Office Visit [address] [address] Name, MD Ananda 230 [place] [address] 05/13/2024 9:30 AM EDT Office Visit [address] [address] Latrice Ibrahim MD 230 [place] [address] 06/04/2024 9:45 AM EDT Office Visit [facility] OPT[facility] 267 [place] [address] Natalie Davis, OD 267 [place] [address] documented as of this encounter Visit Diagnoses Not on filedocumented in this encounter Care Teams Communications Clerk Relationship Specialty Start Date End Date Name, MD Ananda [address] [place] [address] PCP - General Family Medicine 06/01/15 documented as of this encounter
--- OUTSIDE RECORDS SUMMARY | 2024-04-12 14:10 | XMS_ITS | Encounter Summary ---
Author Organization [employer] Address [address] [facility] [facility] [address] 7t [place] [address] Care Team Providers Care Poultry Picker Name Role Phone Name, Ananda CRANDALL Primary Care Provider [phone] Encounter Details Date Type Department Care Team ([facility] st Contact Info) Description 04/01/2024 Telephone [facility] MEDICINE 230 [place] [address] Torrie Balderrama, RN Social History Tobacco Use [...] 04/01/2024 11:37 AM EST Incoming pt to [place] team informing FD staff of hospital admission [...] 04/15/2024 9:30 AM EST Clinical Support [facility] MEDICINE [address] [place] [address] Sonali Stubbs, RN [address] [place] [address] 04/16/2024 10:00 AM EST Office Visit [facility] MED[facility]INE [address] [place] [address] Name, MD Ananda [address] [place] [address] 05/13/2024 9:30 AM EDT Office Visit [facility] MED[facility]INE [address] [place] [address] Latrice Ibrahim MD [address] [place] [address] 06/04/2024 9:45 AM EDT Office Visit [facility] OPTOMETRY [address] [place] [address] Ryan Natalie, OD [address] [place] [address] documented as of this encounter Visit Diagnoses Not on filedocumented in this encounter Additional Health Concerns Assessment Noted Time PHQ-9 Depression Total Score: 10 024 9:15 AM EDT documented as of this encounter Care Teams Poultry Picker Relationship Specialty Start Date End Date Name, MD Ananda 230 [place] [address] PCP - General Family Medicine 06/01/15 documented as of this encounter
--- OUTSIDE RECORDS SUMMARY | 2024-04-12 14:10 | XMS_ITS | Encounter Summary ---
Author Organization [employer] Address [address] [facility] [address] 7[address] [place] [address] Care Team Providers Care Farm Operations Manager Name Role Phone Name, Ananda CRANDALL Primary Care Provider [phone] Reason for Visit * Reason Comments Obat f/u Encounter Details Date Type Department Care Team (Latest Contact Info) Description 03/18/2024 9:00 AM EST Clinical Support [facility] MEDICINE 230 [place] [address] Sonali Stubbs, COREY 230 [place] [address] Uncomplicated opioid dependence (CMS/HCC) (Primary Dx); Tobacco [...] 07/2009. Currently seeing therapist, Yuko Thomas, at [facility], [address] [place] [address]. Haspsychiatrist, Teodoro Bee, in private practice. Prescribed benzo. Current dose of Suboxone is 24/6 mg daily, on a 4 week schedule appt. LFTs 03/20/23 (PCP ordered labs, including hepatic panel) MARKET RESEARCH ASSISTANT reviewed by provider. PrEP: declined 04/19/21 PCP: [...] He states he will be flying to [place] this Saturday to spend holidays with his [...] 07/2009. Currently seeing therapist, Yuko Thomas, at [facility], [address] [place] [address]. Haspsychiatrist, Teodoro Bee, in private practice. Prescribed benzo. Current dose of Suboxone is 24/6 mg daily, on a 4 week schedule appt. LFTs 03/20/23 (PCP ordered labs, including hepatic panel) MARKET RESEARCH ASSISTANT reviewed by provider. PrEP: declined 04/19/21 PCP: [...] He states he will be flying to [place] this Saturday to spend holidays with his nephew. Today: 03/18/24 Utox: BUP, BZO (Rx) Hubert seen today for opioid use disorder. Had a great time with nephew and other extended family in [place] over the holidays. He still grieves his [...] Description 04/15/2024 9:30 AM EST Clinical Support [facility] MEDICINE [address] [place] [address] Sonali Stubbs, COREY [address] [place] [address] 04/16/2024 10:00 AM EST Office Visit [address] [address] Name, MD Ananda [address] [place] [address] 05/13/2024 9:30 AM EDT Office Visit [facility] MED[facility]INE [address] [place] [address] Latrice Ibrahim MD [address] [place] [address] 06/04/2024 9:45 AM EDT Office Visit [facility] OPTOMETRY [address] [place] [address] Natalie Davis, OD 267 [place] [address] documented as of this encounter Procedures Procedure [...] Noted Time PHQ-9 Depression Total Score: 10 0508/2 024 9:15 AM EDT documented as of this encounter Care Teams Farm Operations Manager Relationship Specialty Start Date End Date Name, MD Ananda [address] [place] [address] PCP - General Family Medicine 06/01/15 documented as of this encounter
--- OUTSIDE RECORDS SUMMARY | 2024-04-12 14:10 | XMS_ITS | Clinical Summary ---
Author Organization [employer] Address [address] [place] [address] Care Team Providers Care Director Gift Name Role Phone Name, Ananda CRANDALL Primary Care Provider [phone] Allergies No known active allergies Medications docusate sodium (Colace) 100 MG capsule Take 1 capsule by mouth at bed time. 021 Active glucose blood (Abelite Design Automation, IncTouch Verio) test strip every 8 (eight) hours. [...] (CMS/HCC) 1 each 2 times daily. Call [facility] if consistently < 95% 1 each 023 Active Alcohol Swabs (Alcohol Prep) 70 % pads USE FOUR TIMES DAILY DIRECTED 023 Active clonazePAM (KlonoPIN) 1 MG tablet Take 1 mg by mouth 2 times daily. 023 Active Lancets (Abelite Design Automation, IncTouch Delica Plus [id number]) [facility] TEST BLOOD SUGAR THREE TIMES DAILY 023 [...] ions:Chronic obstructive pulmonary disease, unspecified COPD type ([facility]) INHALE 1 AMPULE USING A NEBULIZER ONCE DAILY. RINSE MOUTH AFTER USING. 60 mL 3 023 Active glucose (Glutose 15) 40 % gel oral gelIndications: Type 2 diabetes mellitus without complication, with long-term current use of insulin ([facility]) TAKE 15 GRAMS BY MOUTH NEEDED FOR LOW BLOOD SUGAR 37.5 g 1 023 Active aspirin (Aspirin Low Dose) 81 MG EC tabletIndicatio ns:Pain of left leg TAKE 1 TABLET BY MOUTH DAILY IN THE MORNING 90 tablet 023 Active NovoLOG FLEXPEN 100 UNIT/ML penIndications: Diabetes mellitus type 2 in nonobese ([facility]) INJECT SUBCUTANEOUSLY THREE TIMES DAILY PER SLIDING SCALE: BLOOD SUGAR < 200: DO NOT USE, 201-250 = 2 UNITS, 251-300 = 4U, 301-350 = 8U, > 351 = 10U 15 mL 4 024 Active busPIRone (Buspar) 15 MG tablet Take 15 mg by mouth 2 times daily. 024 Active Continuous Glucose Sensor (FreeStyle Kasey 2 Sensor) [facility] USE DIRECTED TO TEST BLOOD SUGAR 8 TIMES PER DAY 2 each 024 Active Continuous Glucose Cutter Operator Brick (FreeStyle Kasey 2 [place]) device Scan sensor every 8 hours 1 [...] ons:Chronic obstructive pulmonary disease, unspecified COPD type ([facility]) INHALE 2 PUFFS BY MOUTH EVERY 4 TO 6 HOURS NEEDED 18 g 5 024 Active montelukast (Singulair) 10 MG tabletIndicatio ns:Seasonal allergic rhinitis, unspecified trigger TAKE 1 TABLET BY MOUTH EVERY DAY AT BEDTIME 90 tablet 1 024 Active Pentips 32G X 4 MM miscIndications :Type 2 diabetes mellitus without complication, unspecified whether emt intermediate insulin use ([facility]) USE DIRECTED FOUR TIMES DAILY 100 each 5 024 Active glucose blood (FreeStyle Precision Isak Test) test stripIndication s:Type 2 diabetes mellitus with hyperglycemia, with long-term current use of insulin ([facility]) 1 each by Other route 3 times [...] 500 MG tabletIndicatio ns:Papillary renal cell carcinoma ([facility]) TAKE 1 TABLET BY MOUTH THREE TIMES DAILY 90 tablet 2 025 Active atorvastatin (Lipitor) 40 MG tabletIndicatio ns:Type 2 diabetes mellitus with hyperglycemia, with long-term current use of insulin ([facility]) TAKE 1 TABLET BY MOUTH EVERY DAY DIRECTED 90 tablet 025 Active Incruse Ellipta 62.5 MCG/ACT aerosol powderIndicatio ns:Chronic obstructive pulmonary disease, unspecified COPD type (CMS/HCC) INHALE 1 PUFF BY MOUTH EVERY DAY AT THE SAME TIME RINSE MOUTH AFTER USING 30 each 3 025 Active Suboxone 8-2 MG SL filmIndications [...] directed 90 tablet 024 2024 Discontinued Umeclidinium [place] (Incruse Ellipta) 62.5 MCG/ACT aerosol powderIndicatio ns:Chronic obstructive pulmonary disease, unspecified COPD type (CMS/HCC) Inhale 1 Inhalation Once per day. 30 each 3 024 2024 Discontinued Suboxone 8-2 MG SL filmIndications :Uncomplicated opioid dependence (CMS/HCC) Place 3 Film under the tongue Once per day for 28 days. 84 Film 025 2024 Discontinued(R eorder (will not trigger notification [...] Encounters Date Type Department Care Team Description 04/10/2024 Telephone [facility] [address] [place] [address] Kim Montez RN 2024 Refill [facility] [address] [place] [place] [address] Sonali Stubbs, COREY Uncomplicated opioid dependence ([facility]/HCC) 04/01/2024 Telephone [facility] [address] [place] [address] Torrie Balderrama RN 03/29/2024 Orders Only GENERIC EXTERNAL DATA DEPARTMENT Provider, Generic External Data 03/21/2024 Refill [facility] [address] [place] [address] Ananda Spain MD Chronic obstructive pulmonary disease, unspecified COPD type ([facility]/HCC) 03/18/2024 9:00 AM EST Clinical Support [facility] [address] [place] [address] Sonali Stubbs RN Uncomplicated opioid dependence ([facility]) (Primary Dx); Tobacco dependence 03/18/2024 Travel 03/16/2024 Refill [facility] [address] [place] [address] Ananda Spain MD Type 2 diabetes mellitus with hyperglycemia, with long-term current use of insulin ([facility]/HCC) 03/11/2024 Refill [facility] [address] [place] [address] Sonali Stubbs, COREY Uncomplicated opioid dependence ([facility]/HCC) 03/11/2024 Telephone [facility] [address] [place] [address] Ananda Spain MD Durable Medical Equipment 03/08/2024 Refill [facility] [address] [place] [address] Ananda Spain MD Chronic obstructive pulmonary disease, unspecified COPD type ([facility]/HCC) 03/05/2024 9:45 AM EST Office Visit [facility] OPTOMETRY [address] [place] [address] Griseldaclara Natalie, OD Type 2 diabetes mellitus without ophthalmic manifestations ([facility]) (Primary Dx); Other specified disorders of choroid; Retinal scar of left eye; Regular astigmatism, bilateral; Reduced visual acuity 03/05/2024 Refill [facility]INE [address] [place] [address] Ananda Spain MD Papillary renal cell carcinoma ([facility]) 03/05/2024 Travel 02/28/2024 11:00 AM EST Office Visit [facility]INE [address] [place] [address] Ananda Spain MD Type 2 diabetes mellitus with hyperglycemia, with long-term current use of insulin ([facility]) (Primary Dx); Chronic obstructive pulmonary disease, unspecified COPD type ([facility]); Healthcare maintenance 02/28/2024 Telephone [facility]INE [address] [place] [address] Ananda Spain MD Durable Medical Equipment (wipes) 02/28/2024 Travel 02/27/2024 Travel 02/25/2024 Telephone [facility] [address] [place] [address] Crystal Stevens MA Chart Prep 02/19/2024 9:30 AM EST Office Visit [facility] MEDICINE [address] [place] [address] Latrice Ibrahim MD Uncomplicated opioid dependence ([facility]) (Primary Dx) 02/19/2024 Travel 02/19/2024 Refill [facility] [place] [address] Ananda Spain MD 02/18/2024 Orders Only GENERIC EXTERNAL DATA DEPARTMENT Provider, Generic External Data 02/12/2024 Refill [facility] [address] [place] [address] Sonali Stubbs, COREY Uncomplicated opioid dependence ([facility]/HCC) 01/28/2024 Telephone [facility] MEDICINE [address] [place] [phone] Evelyn Reeves RN 01/22/2024 9:30 AM EST Clinical Support [facility] [address] [place] [phone] Maya Jolly, COREY Uncomplicated opioid dependence (CMS/HCC) (Primary Dx) 01/22/2024 Patient Outreach [address] [address] Giancarlo Osiel 01/22/2024 Travel 01/17/[address] [address] Name, MD James Malave 01/15/[address] [address] Sonali Stubbs RN Uncomplicated opioid dependence (CMS/HCC) from Last 3 Months Immunizations Name Administration Dates Next Due Hep A, Adult 05/11/2009 Influenza injectable quadriv alent preservative free 01/21/2023,01/02/2022,02/10/2021,03/07,01/13/2019,01/11/2018 Influenza, Split (incl. aba fied surface antigen) 12/24/2012,11/06/2011 Influenza, seasonal, injecta ble, preservative free 11/20/2023 [employer] SARS-CoV-2 Vaccination 05/18/2020 Pfizer Covid-19 Vaccine 12+ [...] 04/15/2024 9:30 AM EST Clinical Support [facility]INE [address] [place] [address] Sonali Stubbs, COREY [address] [place] [address] 04/16/2024 10:00 AM EST Office Visit [facility]INE [address] [place] [address] Ananda Spain MD [address] [place] [address] 05/13/2024 9:30 AM EDT Office Visit [facility]INE [address] [place] [address] Latrice Ibrahim MD [address] [place] [address] 06/04/2024 9:45 AM EDT Office Visit [facility] OPTOMETRY [address] [place] [address] Natalie Davis, OD [address] [place] [address] Health Maintenance Due Date Last Done Comments [...] 05/13/2024 05/14/2023, 02/01, 05/09/2021 Diabetes: Hemoglobin A1C 05/28/2024 024, 11/20/2023, 07/24/2023, Additional history exists Depression [...] EST Narrative 03/29/2024 12:44 PM EST ? [facility] ?[address] ?[place] [address] ?XRay Report ? Signed ? Patient: Hubert Cruz ?MR#: ?? [id number] ? : 1965 ?Acct:[id number] ? Age/Sex: 58 / M ?ADM Date: 03/29/24 ? Loc: HO.ED ? Attending Dr: ? Ordering Physician: Tiffanie Ulloa NP ?? Date of Service: 03/29/24 ?? Procedure(s): XR chest 1V ?? Accession Number(s): [id number] ? cc: Ananda Spain MD; Tiffanie Ulloa NP ? CLINICAL HISTORY: cough, shortness of breath ? 1 view chest x-ray ? Comparison: CR/SR - XR CHEST 2V - 12/19/21 14:24 EDT ?? [place] [id number] - 02/26/19 13:51 EST ? Findings: ?? [...] DD/ 1243 ? TD/TT: 03/29/24 1243 ? Manager Technical Training: ? Procedure Note Donotleonelainterpreter, Image - 03/29/[address] [address] XRay Report Signed Patient: Hubert Cruz MMR#: [id number] : 1965Acct:[id number] Age/Sex: 58 / MADM Date: 03/29/24 Loc: HO.ED Attending Dr: Ordering Physician: Tiffanie Ulloa NP Date of Service: 03/29/24 Procedure(s): XR chest 1V Accession Number(s): [id number] cc: Name,Ananda CRANDALL; Tiffanie Ulloa NP CLINICAL HISTORY: cough, shortness of breath 1 view chest x-ray Comparison: CR/SR - XR CHEST 2V - 12/19/21 14:[address] [id number] - 02/26/19 13:51 EST Findings: Overinflation and [...] Low MD Signed By: <Electronically signed by uAbrey Low MD in OV> 03/29/24 1244 DD/ 124 TD/TT: 03/29/24 1243 Manager Technical Training: [facility] External Provider IMG XR PROCEDURES Edited Result - Final * (ABNORMAL) Hepatic Function Panel (03/29/2024 11:41 AM EST) Bilirubin, Total 1.3(H) 0.0 - 1.0 mg/dL [facility] Bilirubin, Direct 0.4 0.0 - 0.5 mg/dL [facility] Aspartate Amino Transferase 22 5 - 37 U/L [facility] Alanine Aminotransferase 16 0 - 40 U/L [facility] Total Protein 7.8 6.5 - 8.0 g/dL [facility] Albumin Level 4.7 3.5 - 5.0 g/dL [facility] Alkaline Phosphatase 66 39 - 117 U/L [facility] 03/29/2024 11:4 1 AM EST 03/29/2024 11:44 AM EST us Generic External Data Provider LAB BLOOD ORDERAB LES Final Result [facility] [address] [place] [phone] * (ABNORMAL) Basic Metabolic Panel (03/29/2024 11:41 AM EST) Pathologist [facility] Sodium 139 135 - 145 mmol/L [facility] Potassium 4.9 3.3 - 5.1 mmol/L [facility] Chloride 103 96 - 108 mmol/L [facility] Carbon Dioxide 30(H) 22 - 29 mmol/L [facility] Anion Gap 11(L) 12 - 20 [facility] Urea Nitrogen (BUN) 15 9 - 16 mg/dL [facility] Creatinine, Serum 0.96 0.5 - 1.4 mg/dL [facility] Creatinine Clr Calc Pharmacy 65.6 [facility] Comment:eGFR (calculated fro m the MDRD study equation) and eCrCl(calculated from the Cockcroft-Gault equation) are based ondifferent parameters and may not yield comparable results.If eCrCl result is absurd, please check patient'sheight/weight. Estimated Glomerular Filt Rate >60 [facility] Comment:Chronic Kidney Disea se: Estimated GFR < 60 mL/min/1.25g0Iplkno Kidney Disease: Estimated GFR < 15 mL/min/1.73m2 Glucose 203(H) 60 - 115 mg/dL [facility] Calcium 9.9 8.4 - 10.2 mg/dL [facility] 03/29/2024 11:4 1 AM EST 03/29/2024 11:44 AM EST Generic External Data Provider LAB BLOOD ORDERAB LES Final Result Performing Organization Address [facility] Phone Number [facility] [address] [place] [phone] * High Sensitivity Troponin I (03/29/2024 11:40 AM EST) Pathologist [facility] TROPONIN I HIGH SENSITIVITY 12.5 <3.5 - 35.0 ng/L [facility] Comment:The [place] high sens itivity Troponin-I results should beused in conjunction with other diagnostic information suchas ECG, clinical observations and information, and patientsymptoms to aid in the diagnosis of [place]. 03/29/2024 11:4 0 AM EST 03/29/2024 11:44 AM EST [employer] External Data Provider LAB BLOOD ORDERAB LES Final Result Performing Organization Address [facility] Phone Number [facility] [address] [place] [phone] * SARS-CoV-2 RNA, Influenza A/B, and RSV RNA, Ql NAAT (03/29/2024 11:40 AM EST) Pathologist [facility] Influenza A PCR NEGATIVE Negative [facility] Influenza B PCR NEGATIVE Negative [facility] Resp Syncy Virus RNA Qual PCR NEGATIVE Negative [facility] SARS COV2 PCR NEGATIVE Negative [facility] Comment:All test results mus t [...] use by authorized laboratories.Testing performed on the [employer] GeneXpert utilizingreal-time RT-PCR.All SARS CoV2 and positive influenza A/B results arereported to [facility]. 03/29/2024 11:4 0 AM EST 03/29/2024 11:44 AM EST us Generic External Data Provider LAB MICROBIOLOGY - GENERAL ORDERABLES Final Result [facility] [address] [place] [phone] * (ABNORMAL) CBC auto differential (03/29/2024 11:40 AM EST) White Blood Count 7.2 4.8 - 10.8 X10*3/uL [facility] Red Blood Count 5.00 4.60 - 5.80 X10*6/uL [facility] Hemoglobin 14.7 14.0 - 18.0 g/dl [facility] Hematocrit 44.6 42.0 - 52.0 % [facility] Mean Corpuscular Volume 89.2 80.0 - 98.0 fL [facility] Mean Corpuscular Hemoglobin 29.4 27.0 - 33.0 pg [facility] Mean Corpuscular HGB Conc 33.0 31.0 - 36.0 g/dl [facility] Red Cell Distribution Width 13.4 11.0 - 16.0 % [facility] Platelet Count 246 160 - 400 X10*3/uL [facility] Mean Platelet Volume 10.0 9.4 - 12.4 fL [facility] Neutrophils Percent Auto 46.8 45 - 73 % [facility] Imm Gran Pct Auto 0.3 0.0 - 0.4 % [facility] Lymphocytes Percent Auto 26.2 20 - 40 % [facility] Monocytes Percent Auto 9.4 2 - 11 % [facility] Eosinophils Percent Auto 15.5(H) 0 - 4 % [facility] Basophils Percent Auto 1.8 0 - 2 % [facility] NRBC Pct Auto 0.0 0.0 - 0.2 /100WBC [facility] Neutrophils Absolute Auto 3.4 2.0 - 8.3 x10*3/uL [facility] Imm Gran Abs Auto 0.02 0.00 - 0.03 X10*3/uL [facility] Lymphocytes Absolute Auto 1.9 1.2 - 4.9 X10*3/uL [facility] Monocytes Absolute Auto 0.7 0.1 - 1.2 X10*3/uL [facility] Eosinophils Absolute Auto 1.1(H) 0.0 - 0.4 X10*3/uL [facility] Basophils Absolute Auto 0.1 0.0 - 0.2 X10*3/uL [facility] NRBC Abs Auto 0.000 0.0 - 0.012 X10*3/uL [facility] 03/29/2024 11:4 0 AM EST 03/29/2024 11:44 AM EST us Generic External Data Provider LAB BLOOD ORDERAB LES Final Result Performing Organization Address [facility]/ZIP Co de Phone Number [facility] [address] [place] [phone] * Partial Thromboplastin Time, Activated (APTT) (03/29/2024 11:40 AM EST) Partial Thromboplastin Time 30.0 26.0 - 36.8 SEC [facility] Comment:For information rega rding the monitoring of direct thrombininhibitors, please refer to Pharmacy. 03/29/2024 11:4 0 AM EST 03/29/2024 11:44 AM EST us Generic External Data Provider LAB BLOOD ORDERAB LES Final Result Performing Organization Address City/[facility]/ZIP Co de Phone Number [facility] [address] [place] [phone] * Prothrombin Time-INR (03/29/2024 11:40 AM EST) Prothrombin Time 11.7 10.9 - 12.4 SEC [facility] INTERNATIONAL NORM RATIO 1.0 0.9 - 1.1 [facility] Comment:INTERNATIONAL NORMAL IZED RATIO (INR) REFERENCE [...] Provider LAB BLOOD ORDERAB LES Final Result [facility] [address] [place] [phone] * POCT FARA-14 Urine Drug Screen [...] procedure / Unknown 03/18/2024 9:30 AM EST us Latrice Ibrahim MD POINT OF CARE TEST [...] Media Lot # [id number] Lot# Expiration Date 734, Blood 02/28/2024 10:4 4 AM EST us Ananda Spain MD POINT OF CARE TEST ENTER/EDIT OR DERABLES Final Result * (ABNORMAL) POCT Glucose (02/28/2024 10:43 AM EST) Glucose Blood, POC 209(A) 60 - 200 mg/dL QC Media Lot # [id number] Lot# Expiration Date ,818 Blood Capillary blood specimen / Unknown 02/28/2024 10:43 AM EST us Ananda Spain MD POINT OF CARE TEST ENTER/EDIT OR DERABLES Final Result * (ABNORMAL) Glucose, Whole Blood (02/18/2024 1:10 PM EST) Glucose, Whole Blood 132(H) 60 - 115 mg/dL [facility] Comment:METER #: [id number] 5Testing performed in the Endocrinology Department [address], [address], [facility]. 02/18/2024 1:10 PM EST 02/18/2024 1:15 PM EST us Generic External Data Provider LAB BLOOD ORDERAB LES Final Result Performing Organization Address City/[facility]/ZIP Co de Phone Number [facility] [address] [place] [phone] * Lipid Panel, Standard (05/14/2023 8:29 AM EDT) Triglycerides 76 <150 mg/dL [facility] Comment:Desirable Triglyceri de: less than 150 mg/dLBorderline High Triglyceride 150-199 mg/dLHigh Triglyceride: 200-499 mg/dLVery High Triglyceride: greater than or equal to 5OO mg/dL Cholesterol 189 <200 mg/dL [facility] Comment:Desirable Cholestero l: less than 200 mg/dLBorderline High Cholesterol: 200-239 mg/dLHigh Cholesterol: greater than 239 mg/dL LDL Cholesterol Calculated 82 <100 mg/dL [facility] Comment:Desirable LDL: less than 100 mg/dLNear Optimal/Above Optimal LDL: 110- 129 mg/dLBorderline High LDL: 130-159 mg/dLHigh LDL: 160-189 mg/dLVery High LDL: greater than or equal to 190 mg/dL HDL Cholesterol 92 >40 mg/dL [facility] Comment:Desirable HDL: great er than 40 mg/dL Note: This HDL assay may give artificially low results in patients with liver disease. 05/14/2023 8:29 AM EDT 05/14/2023 8:29 AM EDT us Generic External Data Provider LAB BLOOD ORDERAB LES Final Result Performing Organization Address City/[facility]/ZIP Co de Phone Number [facility] [address] [place] [phone] [phone] * Albumin, Random Urine W/Creatinine (05/14/2023 8:16 AM EDT) Creatinine, Urine 156.10 mg/dL [facility] Microalbumin Urine 45.0 mg/L [facility] Microalbum Creatinine Ratio Ur 28.8 <30 ug/mg cr [facility] Comment:Albumin/Creatinine R atio Reference Ranges: Normal: < 30 ug/mg creatinine Microalbuminuria: 30 - 300 ug/mg creatinineClinical Albuminuria: > 300 ug/mg creatinine 05/14/2023 8:16 AM EDT 05/14/2023 9:26 AM EDT us Generic External Data Provider LAB URINE ORDERAB LES Final Result Performing Organization Address [facility]/ZIP Co de Phone Number [facility] [address] [place] [phone] * (ABNORMAL) Hepatitis C Antibody with Reflex to HCV, RNA, Quantitative, Real- Time PCR (03/29/2023 9:12 AM EST) Hepatitis C Antibody Reactive( A) Nonreactive [facility] Comment:Presumptive evidence of antibodies to HCV. 03/29/2023 9:12 AM EST 03/29/2023 11:11 AM EST us Latrice Ibrahim MD LAB BLOOD ORDERABLES Final Resul t Performing Organization Address [facility] Co de Phone Number [facility] [address] [place] [phone] * HIV-1/2 Antigen and Antibodies, Fourth Generation, with Reflexes (03/29/2023 9:12 AM EST) HIV AB/AG Nonreactive Nonreactive [facility] Comment:HIV-1 p24 Ag and/or HIV-1/HIV-2 Ab not detected.A test result that is nonreactive does not exclude thepossibility of exposure to or infection with HIV-1 and/orHIV-2. Nonreactive results in this assay for individualswith prior exposure to HIV-1 and/or HIV-2 may be due toantigen and antibody levels that are below the limit ofdetection of this assay.The [email or web address] HIV Ag/Ab Combo assay result andsupplemental assay results should be interpreted inconjunction with the patient's clinical presentation,history and other laboratory results. If the results areinconsistent with clinical evidence, additional testing issuggested to confirm the result. 03/29/2023 9:12 AM EST 03/29/2023 11:11 AM EST us Latrice Ibrahim MD LAB BLOOD ORDERABLES Final Resul t [facility] [address] [place] [address] [phone] * Hm Colonoscopy (08/16/2015 1:52 PM EDT) Colonoscopy Normal Normal Narrative Gloria Álvarez - 08/16/2015 1:52 PM EDT Recommended 10 year follow up us Historical Provider HEALTH MAINTENANCE Final Result from Last 3 Months or Most Recently Relevant to Health Maintenance Insurance [facility] - [facility] Care Teams Director Gift Relationship Specialty Start Date End Date Name, MD Ananda [address] [place] [address] PCP - General Family Medicine 06/01/15
--- OUTSIDE RECORDS SUMMARY | 2024-04-12 14:10 | XMS_ITS | Encounter Summary ---
Author Organization [employer] Address [address] 7t [place] [address] Care Team Providers Care Bait Packer Name Role Phone Name, Ananda CRANDALL Primary Care Provider [phone] Reason for Visit * Reason Comments Med Refill Encounter Details Date Type Department Care Team ([facility] Contact Info) Description 02/28/2023 Refill [facility] [address] [place], [place] [phone] Name, MD Ananda 230 [place] [address] Pain of left leg Social History Tobacco [...] Description 04/15/2024 9:30 AM EST Clinical Support [facility] [address] [place] [address] Sonali Stubbs, COREY [address] [place] [address] 04/16/2024 10:00 AM EST Office Visit [address] [address] Ananda Spain MD [address] [place] [address] 05/13/2024 9:30 AM EDT Office Visit [facility] [address] [place] [address] Latrice Ibrahim MD [address] [place] [address] 06/04/2024 9:45 AM EDT Office Visit [facility] [address] [place] [address] Natalie Davis, OD [address] [place] [address] documented as of this encounter Visit Diagnoses Diagnosis Pain of left leg documented in this encounter Additional Health Concerns Assessment Noted Time PHQ-9 Depression Total Score: 3 10/04/19 23 2:21 PM EDT documented as of this encounter Care Teams Bait Packer Relationship Specialty Start Date End Date Ananda Spain MD [address] [place] [address] PCP - General Family Medicine 06/01/15 documented as of this encounter
--- OUTSIDE RECORDS SUMMARY | 2024-04-12 14:10 | XMS_ITS | Encounter Summary ---
Author Organization [employer] Address [address] [facility] [address] 7t [place] [address] Care Team Providers Care Dry End Operator Name Role Phone Name, Ananda CRANDALL Primary Care Provider [phone] Encounter Details Date Type Department Care Team ([facility] Contact Info) Description 03/28/2022 Orders Only [facility] [address] [place], [place] [phone] Teresa Moody LPN Social History Tobacco Use [...] Description 04/15/2024 9:30 AM EST Clinical Support [address] [phone] Sonali Stubbs, COREY [address] [place] [address] 04/16/2024 10:00 AM EST Office Visit [address] [address] Name, MD Ananda 230 [place] [address] 05/13/2024 9:30 AM EDT Office Visit [facility] 230 [place] [address] Latrice Ibrahim MD 230 [place] [address] 06/04/2024 9:45 AM EDT Office Visit [facility] [address] [place] [address] Natalie Davis, OD [address] [place] [address] documented as of this encounter Visit Diagnoses Not on filedocumented in this encounter Care Teams Dry End Operator Relationship Specialty Start Date End Date Name, MD Ananda [address] [place] [address] PCP - General Family Medicine 06/01/15 documented as of this encounter
--- OUTSIDE RECORDS SUMMARY | 2024-04-12 14:10 | XMS_ITS | Encounter Summary ---
Author Organization [employer] Address [address] 7t [place] [address] Care Team Providers Care Viticulture Teacher Name Role Phone Name, Ananda CRANDALL Primary Care Provider [phone] Encounter Details Date Type Department Care Team ([facility] Contact Info) Description 03/29/2024 Orders Only GENERIC [...] Description 04/15/2024 9:30 AM EST Clinical Support [facility] [address] [place] [address] Sonali Stubbs, COREY 230 [place] [address] 04/16/2024 10:00 AM EST Office Visit [facility] [address] [place] [address] Name, MD Ananda 230 [place] [address] 05/13/2024 9:30 AM EDT Office Visit [facility] [address] [place] [address] Latrice Ibrahim MD 230 [place] [address] 06/04/2024 9:45 AM EDT Office Visit [facility] [address] [place] [address] Natalie Davis, OD [address] [place] [address] documented as of this encounter Procedures Procedure [...] EST Narrative 03/29/2024 12:44 PM EST ? [facility] ?[address] ?[place] [address] ?XRay Report ? Signed ? Patient: Hubert Cruz ?MR#: ?? [id number] ? : 1965 ?Acct:[id number] ? Age/Sex: 58 / M ?ADM Date: 03/29/24 ? Loc: HO.ED ? Attending Dr: ? Ordering Physician: Tiffanie Ulloa NP ?? Date of Service: 03/29/24 ?? Procedure(s): XR chest 1V ?? Accession Number(s): [id number] ? cc: Ananda Spain MD; Tiffanie Ulloa NP ? CLINICAL HISTORY: cough, shortness of breath ? 1 view chest x-ray ? Comparison: CR/SR - XR CHEST 2V - 12/19/21 14:24 EDT ?? [place] [id number] - 02/26/19 13:51 EST ? Findings: ?? [...] DD/ 1243 ? TD/TT: 03/29/24 1243 ? Enrobing Machine Operator: ? Procedure Note Donotuseinterpreter, Image - 03/29/[address] [address] XRay Report Signed Patient: Hubert Cruz MMR#: [id number] : 1965Acct:[id number] Age/Sex: 58 / MADM Date: 03/29/24 Loc: HO.ED Attending Dr: Ordering Physician: Tiffanie Ulloa NP Date of Service: 03/29/24 Procedure(s): XR chest 1V Accession Number(s): [id number] cc: Name,Ananda CRANDALL; Tiffanie Ulloa NP CLINICAL HISTORY: cough, shortness of breath 1 view chest x-ray Comparison: CR/SR - XR CHEST 2V - 12/19/21 14:[address]/[place] [id number] - 02/26/19 13:51 EST Findings: Overinflation and [...] 03/29/24 1244 DD/ 1243 TD/TT: 03/29/24 1243 Enrobing Machine Operator: us [facility] External Provider IMG XR PROCEDURES Edited Result - Final * (ABNORMAL) Basic Metabolic Panel (03/29/2024 11:41 AM EST) Sodium 139 135 - 145 mmol/L [facility] Potassium 4.9 3.3 - 5.1 mmol/L [facility] Chloride 103 96 - 108 mmol/L [facility] Carbon Dioxide 30(H) 22 - 29 mmol/L [facility] Anion Gap 11(L) 12 - 20 [facility] Urea Nitrogen (BUN) 15 9 - 16 mg/dL [facility] Creatinine, Serum 0.96 0.5 - 1.4 mg/dL [facility] Creatinine Clr Calc Pharmacy 65.6 [facility] Comment:eGFR (calculated fro m the MDRD study equation) and eCrCl(calculated from the Cockcroft-Gault equation) are based ondifferent parameters and may not yield comparable results.If eCrCl result is absurd, please check patient'sheight/weight. Estimated Glomerular Filt Rate >60 [facility] Comment:Chronic Kidney Disea se: Estimated GFR < 60 mL/min/1.54s0Eieufe Kidney Disease: Estimated GFR < 15 mL/min/1.73m2 Glucose 203(H) 60 - 115 mg/dL [facility] Calcium 9.9 8.4 - 10.2 mg/dL [facility] 03/29/2024 11:4 1 AM EST 03/29/2024 11:44 AM EST us Generic External Data Provider LAB BLOOD ORDERAB LES Final Result [facility] [address] [place] [phone] * (ABNORMAL) Hepatic Function Panel (03/29/2024 11:41 AM EST) Bilirubin, Total 1.3(H) 0.0 - 1.0 mg/dL [facility] Bilirubin, Direct 0.4 0.0 - 0.5 mg/dL [facility] Aspartate Amino Transferase 22 5 - 37 U/L [facility] Alanine Aminotransferase 16 0 - 40 U/L [facility] Total Protein 7.8 6.5 - 8.0 g/dL [facility] Albumin Level 4.7 3.5 - 5.0 g/dL [facility] Alkaline Phosphatase 66 39 - 117 U/L [facility] 03/29/2024 11:4 1 AM EST 03/29/2024 11:44 AM EST Generic External Data Provider LAB BLOOD ORDERAB LES Final Result Performing Organization Address [facility] [address]/[facility] Co de Phone Number [facility] [address] [place] [phone] * Partial Thromboplastin Time, Activated (APTT) (03/29/2024 11:40 AM EST) Partial Thromboplastin Time 30.0 26.0 - 36.8 SEC [facility] Comment:For information rega rding the monitoring of direct thrombininhibitors, please refer to Pharmacy. 03/29/2024 11:4 0 AM EST 03/29/2024 11:44 AM EST Generic External Data Provider LAB BLOOD ORDERAB LES Final Result Performing Organization Address [facility] [address]/[facility] Co de Phone Number [facility] [address] [place] [phone] * SARS-CoV-2 RNA, Influenza A/B, and RSV RNA, Ql NAAT (03/29/2024 11:40 AM EST) Influenza A PCR NEGATIVE Negative [facility] Influenza B PCR NEGATIVE Negative [facility] Resp Syncy Virus RNA Qual PCR NEGATIVE Negative [facility] SARS COV2 PCR NEGATIVE Negative [facility] Comment:All test results mus t [...] use by authorized laboratories.Testing performed on the [employer] GeneXpert utilizingreal-time RT-PCR.All SARS CoV2 and positive influenza A/B results arereported to [facility]. 03/29/2024 11:4 0 AM EST 03/29/2024 11:44 AM EST Generic External Data Provider LAB MICROBIOLOGY - GENERAL ORDERABLES Final Result Performing Organization Address [facility] [address]/[facility] Co de Phone Number [facility] [address] [place] [phone] * High Sensitivity Troponin I (03/29/2024 11:40 AM EST) TROPONIN I HIGH SENSITIVITY 12.5 <3.5 - 35.0 ng/L [facility] Comment:The [employer] high sens itivity Troponin-I results should beused in conjunction with other diagnostic information suchas ECG, clinical observations and information, and patientsymptoms to aid in the diagnosis of [place]. 03/29/2024 11:4 0 AM EST 03/29/2024 11:44 AM EST [employer] External Data Provider LAB BLOOD ORDERAB LES Final Result Performing Organization Address [facility] de Phone Number [facility] [address] [place] [phone] * Prothrombin Time-INR (03/29/2024 11:40 AM EST) Prothrombin Time 11.7 10.9 - 12.4 SEC [facility] INTERNATIONAL NORM RATIO 1.0 0.9 - 1.1 [facility] Comment:INTERNATIONAL NORMAL IZED RATIO (INR) REFERENCE [...] ORDERAB LES Final Result Performing Organization Address City/State/[facility] Co de Phone Number [facility] [address] [place] [phone] * (ABNORMAL) CBC auto differential (03/29/2024 11:40 AM EST) White Blood Count 7.2 4.8 - 10.8 X10*3/uL [facility] Red Blood Count 5.00 4.60 - 5.80 X10*6/uL [facility] Hemoglobin 14.7 14.0 - 18.0 g/dl [facility] Hematocrit 44.6 42.0 - 52.0 % [facility] Mean Corpuscular Volume 89.2 80.0 - 98.0 fL [facility] Mean Corpuscular Hemoglobin 29.4 27.0 - 33.0 pg [facility] Mean Corpuscular HGB Conc 33.0 31.0 - 36.0 g/dl [facility] Red Cell Distribution Width 13.4 11.0 - 16.0 % [facility] Platelet Count 246 160 - 400 X10*3/uL [facility] Mean Platelet Volume 10.0 9.4 - 12.4 fL [facility] Neutrophils Percent Auto 46.8 45 - 73 % [facility] Imm Gran Pct Auto 0.3 0.0 - 0.4 % [facility] Lymphocytes Percent Auto 26.2 20 - 40 % [facility] Monocytes Percent Auto 9.4 2 - 11 % [facility] Eosinophils Percent Auto 15.5(H) 0 - 4 % [facility] Basophils Percent Auto 1.8 0 - 2 % [facility] NRBC Pct Auto 0.0 0.0 - 0.2 /100WBC [facility] Neutrophils Absolute Auto 3.4 2.0 - 8.3 x10*3/uL [facility] Imm Gran Abs Auto 0.02 0.00 - 0.03 X10*3/uL [facility] Lymphocytes Absolute Auto 1.9 1.2 - 4.9 X10*3/uL [facility] Monocytes Absolute Auto 0.7 0.1 - 1.2 X10*3/uL [facility] Eosinophils Absolute Auto 1.1(H) 0.0 - 0.4 X10*3/uL [facility] Basophils Absolute Auto 0.1 0.0 - 0.2 X10*3/uL [facility] NRBC Abs Auto 0.000 0.0 - 0.012 X10*3/uL [facility] 03/29/2024 11:4 0 AM EST 03/29/2024 11:44 AM EST us Generic External Data Provider LAB BLOOD ORDERAB LES Final Result Performing Organization Address City/State/[facility] Co de Phone Number [facility] [address] [place] [phone] documented in this encounter Visit Diagnoses Not on filedocumented in this encounter Additional Health Concerns Assessment Noted Time PHQ-9 Depression Total Score: 10 07/09/2 024 9:15 AM EDT documented as of this encounter Care Teams Viticulture Teacher Relationship Specialty Start Date End Date Name, MD Ananda [address] [place] [address] PCP - General Family Medicine 06/01/15 documented as of this encounter
--- OUTSIDE RECORDS SUMMARY | 2024-04-12 14:10 | XMS_ITS | Encounter Summary ---
Author Organization [employer] Address [address] 7t [place] [address] Care Team Providers Care Manager Retail Sales Name Role Phone Name, Ananda CRANDALL Primary Care Provider [phone] Reason for Visit * Reason Onset Date Comments case in lab 10/03/2022 Encounter Details Date Type Department Care Team ([facility] st Contact Info) Description 10/03/2022 Telephone C [facility] [address] [place] [address] Kelvin Haque, DDS [address] [place] [address] case in lab Social History Tobacco Use [...] - 10/03/2022 2:29 PM EDT Hubert from [employer] called in noel that the soonest they can get case back in to office would be 10/10. They stated it is 5 business days and does not include drop off or crab picker date. Confirmed with Hubert that as of yet appt has not been scheduled to return and that I would inform officeDR documented in this encounter Plan of Treatment Upcoming Encounters Date Type Department Care Team (Late st Contact Info) Description 04/15/2024 9:30 AM EST Clinical Support [facility] [address] [place] [address] Sonali Stubbs RN [address] [place] [address] 04/16/2024 10:00 AM EST Office Visit [address] [address] NameAnanda MD 230 [place] [address] 05/13/2024 9:30 AM EDT Office Visit [facility] [address] [place] [address] Latrice Ibrahim MD 230 [place] [address] 06/04/2024 9:45 AM EDT Office Visit [facility] [address] [place] [address] Natalie Davis, OD 267 [place] [address] documented as of this encounter Visit Diagnoses Not on filedocumented in this encounter Additional Health Concerns Assessment Noted Time PHQ-9 Depression Total Score: 3 10/04/19 23 2:21 PM EDT documented as of this encounter Care Teams Manager Retail Sales Relationship Specialty Start Date End Date Ananda Spain MD [address] [place] [phone] PCP - General Family Medicine 06/01/15 documented as of this encounter
[2024-04-12 14:11] LABS: MANUAL DIFF FLAG NO
--- OUTSIDE RECORDS SUMMARY | 2024-04-12 14:11 | XMS_ITS | Encounter Summary ---
Author Organization [employer] Address [address] 7t [place] [address] Care Team Providers Care Layout Artist Name Role Phone Name, Ananda CRANDALL Primary Care Provider [phone] Reason for Visit * Reason Comments Med Refill Encounter Details Date Type Department Care Team ([facility] Contact Info) Description 06/07/2022 Refill [facility] [address] [place] [address] [phone] Sebastián Graves MD [address] [place], [place] [phone] Pain of left leg Social History Tobacco [...] Upcoming Encounters Date Type Department Care Team ([facility] Contact Info) Description 04/15/2024 9:30 AM EST Clinical Support [facility] MEDIC[facility] [address] [place] [address] Sonali Stubbs RN 230 [place] [address] 04/16/2024 10:00 AM EST Office Visit [facility] [address] [place] [address] Name, MD Ananda [address] [place] [address] 05/13/2024 9:30 AM EDT Office Visit [facility] [address] [place] [address] Latrice Ibrahim MD [address] [place] [address] 06/04/2024 9:45 AM EDT Office Visit [facility]OM[facility] [address] [place] [address] Natalie Davis, OD [address] [place] [address] documented as of this encounter Visit Diagnoses Diagnosis Pain of left leg documented in this encounter Care Teams Layout Artist Relationship Specialty Start Date End Date Name, MD Ananda [address] [place] [address] PCP - General Family Medicine 06/01/15 documented as of this encounter
--- OUTSIDE RECORDS SUMMARY | 2024-04-12 14:11 | XMS_ITS | Encounter Summary ---
Author Organization [employer] Address [address] 7[address] [place] [address] Care Team Providers Care Fourdrinier Tender Name Role Phone Name, Ananda CRANDALL Primary Care Provider [phone] Encounter Details Date Type Department Care Team ([facility] [place] Contact Info) Description 08/13/2022 Abstract [facility] [address] [place] [phone] Name, MD Ananda [address] [place] [address] Social History Tobacco Use Types Packs/Day Years [...] 04/15/2024 9:30 AM EST Clinical Support [facility] [address] [place] [address] Sonali Stubbs RN [address] [place] [address] 04/16/2024 10:00 AM EST Office Visit [facility] 230 [place] [address] Name, MD Ananda 230 [place] [address] 05/13/2024 9:30 AM EDT Office Visit [facility] 230 [place] [address] Latrice Ibrahim MD 230 [place] [address] 06/04/2024 9:45 AM EDT Office Visit [facility] [address] [place] [address] Natalie Davis, OD 267 [place] [address] documented as of this encounter Procedures Procedure Name Priority Date/Time Associated Diagnosis Comments HM COLONOSCOPY Routine 08/16/2015 1:52 PM EDT documented in this encounter Results * Hm Colonoscopy (08/16/2015 1:52 PM EDT) Colonoscopy Normal Normal Narrative Glorai Álvarez - 08/16/2015 1:52 PM EDT Recommended 10 year follow up Historical Provider HEALTH MAINTENANCE Final Result documented in this encounter Visit Diagnoses Not on filedocumented in this encounter Care Teams Fourdrinier Tender Relationship Specialty Start Date End Date Name, MD Ananda [address] [place] [phone] PCP - General Family Medicine 06/01/15 documented as of this encounter
--- OUTSIDE RECORDS SUMMARY | 2024-04-12 14:11 | XMS_ITS | Encounter Summary ---
Author Organization [employer] Address [address] [facility] [address] [address] [place] [address] Care Team Providers Care Public Address Systems Mechanic Name Role Phone Name, Ananda CRANDALL Primary Care Provider [phone] Reason for Visit * Reason Comments Med Refill Encounter Details Date Type Department Care Team ([facility] Contact Info) Description 12/11/2023 Refill [facility] [address] [place], [place] [phone] Name, MD Ananda 230 [place] [address] Type 2 diabetes mellitus without complication, unspecified whether [facility] insulin use ([facility]) Social History Tobacco Use Types Packs/Day [...] 04/15/2024 9:30 AM EST Clinical Support [facility] [address] [place] [address] Sonali Stubbs, COREY [address] [place] [address] 04/16/2024 10:00 AM EST Office Visit [address] [address] Ananda Spain MD [address] [place] [address] 05/13/2024 9:30 AM EDT Office Visit [facility] [address] [place] [address] Latrice Ibrahim MD [address] [place] [address] 06/04/2024 9:45 AM EDT Office Visit [facility] [address] [place] [address] Natalie Davis, MADIE [address] [place] [address] documented as of this encounter Visit Diagnoses Diagnosis Type 2 diabetes mellitus without complication, unspecified whether assistant terminal manager insulin use ([facility]) documented in this encounter Additional Health Concerns Assessment Noted Time PHQ-9 Depression Total Score: 10 024 9:15 AM EDT documented as of this encounter Care Teams Public Address Systems Mechanic Relationship Specialty Start Date End Date Name, MD Ananda 230 [place] [address] PCP - General Family Medicine 06/01/15 documented as of this encounter
--- OUTSIDE RECORDS SUMMARY | 2024-04-12 14:11 | XMS_ITS | Encounter Summary ---
Author Organization [employer] Address [address] [address] [place] [address] Care Team Providers Care Millinery Teacher Name Role Phone Name, Ananda CRANDALL Primary Care Provider Reason for Visit * Reason Comments Med Refill Encounter Details Date Type Department Care Team ([facility] st Contact Info) Description 09/19/2023 Refill [facility] [address] [place], [place] [phone] Name, MD Ananda 230 [place] [address] Pain of left leg Social History Tobacco [...] 9:30 AM EST Clinical Support [facility] [address] [place] [address] Sonali Stubbs, COREY [address] [place] [address] 04/16/2024 10:00 AM EST Office Visit [address] [address] Name, MD Ananda [address] [place] [address] 05/13/2024 9:30 AM EDT Office Visit [address] [address] Latrice Ibrahim MD [address] [place] [address] 06/04/2024 9:45 AM EDT Office Visit [facility] [address] [place] [address] [phone] Natalie Davis OD [address] [place] [address] documented as of this encounter Visit Diagnoses Diagnosis Pain of left leg documented in this encounter Additional Health Concerns Assessment Noted Time PHQ-9 Depression Total Score: 10 024 9:15 AM EDT documented as of this encounter Care Teams Millinery Teacher Relationship Specialty Start Date End Date Name, MD Ananda 230 [place] [address] PCP - General Family Medicine 06/01/15 documented as of this encounter
--- OUTSIDE RECORDS SUMMARY | 2024-04-12 14:11 | XMS_ITS | Encounter Summary ---
Author Organization [email or web address] Address [address] [place] [address] Care Team Providers Care Regulatory Associate Name Role Phone Name, Ananda CRANDALL Primary Care Provider Reason for Visit * Reason Onset Date Comments Durable Medical Equipment 09/18/2022 Encounter Details Date Type Department Care Team ([facility] st Contact Info) Description 09/18/2022 Telephone [facility] [address] [place], [place] [phone] Name, MD Ananda [address] [place] [address] Durable Medical Equipment Social History Tobacco Use [...] 09/21/2022 1:49 PM EDT Incoming call from [facility] [place] message below. [facility] [place] they have no record of pt ever going to their offices and getting PT. Unsure what next steps should be at this point. * Telephone Encounter - Christy Finn RN - 09/21/2022 1:39 PM EDT TC X1 to [facility] [phone] regarding message below. LVM to return call to nurses. * Telephone Encounter - Lauren Walsh - 09/20/2022 3:14 PM EDT Tc from patient returning call back, regarding message below. Patient states he's going to [place] [facility] [address] [place] [address] [place] [address] Dr. Mcdaniel. * Telephone Encounter - Christy [...] 9:30 AM EST Clinical Support [facility] [address] [place] [address] Sonali Stubbs, RN [address] [place] [address] 04/16/2024 10:00 AM EST Office Visit [facility] [address] [place] [address] Name, MD Ananda [address] [place] [address] 05/13/2024 9:30 AM EDT Office Visit [facility] [address] [place] [address] Latrice Ibrahim MD [address] [place] [address] 06/04/2024 9:45 AM EDT Office Visit [facility] [address] [place] [address] Natalie Davis, OD [address] [place] [address] documented as of this encounter Visit Diagnoses Not on filedocumented in this encounter Care Teams Regulatory Associate Relationship Specialty Start Date End Date Name, MD Ananda [address] [place] [phone] PCP - General Family Medicine 06/01/15 documented as of this encounter
--- OUTSIDE RECORDS SUMMARY | 2024-04-12 14:11 | XMS_ITS | Encounter Summary ---
Author Organization [employer] Address [address] [place] [address] Care Team Providers Care Economic Forecaster Name Role Phone Name, Ananda CRANDALL Primary Care Provider [phone] Reason for Visit * Reason Onset Date Comments Durable Medical Equipment 06/08/2022 Encounter Details Date Type Department Care Team ([facility] st Contact Info) Description 06/08/2022 Telephone [facility] [address] [place], [place] [phone] Name, MD Ananda [address] [place] [address] Durable Medical Equipment Social History Tobacco Use [...] states unable to get a hold of scan coordinator and would like to know if PCP can send script directly to [facility] . Please contact at [phone] * Telephone Encounter - Arleen Ramirez - 06/11/2022 11:28 AM EDT TC to patient and informed him to contact his hearing care professional as a script for a recliner was emailed to her previously. Patient understood and agreed with plan. * Telephone Encounter - Darian Joiner - 06/08/2022 4:29 PM EDT Tc from pt requesting a script for a recliner chair to be send to [facility] please contact pt at [phone] documented in this encounter Plan of Treatment Upcoming Encounters Date Type Department Care Team (Late st Contact Info) Description 04/15/2024 9:30 AM EST Clinical Support [facility] [address] [place] [address] Sonali Stubbs, COREY [address] [place] [address] 04/16/2024 10:00 AM EST Office Visit [address] [address] Name, MD Ananda [address] [place] [phone] 05/13/2024 9:30 AM EDT Office Visit [facility] [address] [place] [address] Latrice Ibrahim MD [address] [place] [address] 06/04/2024 9:45 AM EDT Office Visit [facility] [address] [place] [address] Natalie Davis, OD [address] [place] [address] documented as of this encounter Visit Diagnoses Not on filedocumented in this encounter Care Teams Economic Forecaster Relationship Specialty Start Date End Date Name, MD Ananda [address] [place] [phone] PCP - General Family Medicine 06/01/15 documented as of this encounter
--- OUTSIDE RECORDS SUMMARY | 2024-04-12 14:11 | XMS_ITS | Encounter Summary ---
Author Organization [employer] Address [address] [place] [address] Care Team Providers Care Scraper Hand Name Role Phone Name, Ananda CRANDALL Primary Care Provider Reason for Visit * Reason Onset Date Comments ER Follow-up 09/26/2022 Encounter Details Date Type Department Care Team ([facility] st Contact Info) Description 09/26/[address] [facility] [address] [place], [place] [phone] Name, MD Ananda [address] [place] [address] ER Follow-up Social History Tobacco Use Types [...] to pt. Through pacific interpreters id - [id number] for below message, pt. [place] [facility] [place] - pressure chronic ulcer of [...] in case of any new or worseningsymptoms. [facility] hours are reviewed. * Telephone Encounter - Hawa Morales - 10/01/2022 9:35 AM EDT Tc from pt returning call regarding message below. Please contact pt at [phone] (citizen [place] speaker) * Telephone Encounter - Em Leblanc RN - 09/27/2022 3:29 PM EDT T/C to pt. On [phone] through [employer] id - [id number] for status check and to schedule follow up apt. No answer. LVM to call back on [phone]. * Telephone Encounter - Netta Alvares - 09/26/2022 11:04 AM EDT Tc from pt calling to advise PCP of an ER visit [place] [facility] [place] for surgery on the left leg. Pt advised will forward to team nurse for f/u. Please contact pt at [phone] ([place]icar[place]uan) documented in this encounter Plan of Treatment Upcoming Encounters Date Type Department Care Team (Late st Contact Info) Description 04/15/2024 9:30 AM EST Clinical Support [facility] [address] [place] [phone] Sonali Stubbs, RN [address] [place] [phone] 04/16/2024 10:00 AM EST Office Visit [address] [address] Ananda Sapin MD [address] [place] [phone] 05/13/2024 9:30 AM EDT Office Visit [facility] [address] [place] [address] Latrice Ibrahim MD [address] [place] [phone] 06/04/2024 9:45 AM EDT Office Visit [facility] [address] [place] [phone] Natalie Davis OD [address] [place] [address] documented as of this encounter Visit Diagnoses Not on filedocumented in this encounter Care Teams Scraper Hand Relationship Specialty Start Date End Date Ananda Spain MD [address] [place] [address] PCP - General Family Medicine 06/01/15 documented as of this encounter
[2024-04-12 14:12] LABS: Basophils Absolute Auto 0.1 X10*3/uL (0.0-0.2); Basophils Percent Auto 1.2 % (0-2); Eosinophils Absolute Auto 1.1 X10*3/uL (0.0-0.4); Eosinophils Percent Auto 11.1 % (0-4); Hematocrit 41.9 % (42.0-52.0); Hemoglobin 13.8 g/dl (14.0-18.0); Imm Gran Abs Auto 0.02 X10*3/uL (0.00-0.03); Imm Gran Pct Auto 0.2 % (0.0-0.4); Lymphocytes Absolute Auto 1.9 X10*3/uL (1.2-4.9); Lymphocytes Percent Auto 18.4 % (20-40); Mean Corpuscular HGB Conc 32.9 g/dl (31.0-36.0); Mean Corpuscular Hemoglobin 29.7 pg (27.0-33.0); Mean Corpuscular Volume 90.3 fL (80.0-98.0); Mean Platelet Volume 10.2 fL (9.4-12.4); Monocytes Absolute Auto 0.9 X10*3/uL (0.1-1.2); Monocytes Percent Auto 8.5 % (2-11); Neutrophils Absolute Auto 6.2 x10*3/uL (2.0-8.3); Neutrophils Percent Auto 60.6 % (45-73); Platelet Count 275 X10*3/uL (160-400); Red Blood Count 4.64 X10*6/uL (4.60-5.80); Red Cell Distribution Width 13.3 % (11.0-16.0); White Blood Count 10.3 X10*3/uL (4.8-10.8)
[2024-04-12 14:18] LABS: Prothrombin Time 11.3 SEC (10.9-12.4)
[2024-04-12 14:26] LABS: Alanine Aminotransferase 24 U/L (0-40); Albumin Level 4.7 g/dL (3.5-5.0); Alkaline Phosphatase 56 U/L (39-117); Anion Gap 14 (12-20); Aspartate Amino Transferase 30 U/L (5-37); Bilirubin Total 0.9 mg/dL (0.0-1.0); Blood Urea Nitrogen 18 mg/dL (9-16); Carbon Dioxide 29 mmol/L (22-29); Chloride 102 mmol/L (96-108); Creatinine Clr Calc Pharmacy 64.1; Estimated Glomerular Filt Rate > 60; Glucose Random 227 mg/dL (60-115); Magnesium 1.9 mg/dL (1.6-2.6); Potassium 4.3 mmol/L (3.3-5.1); Sodium 141 mmol/L (135-145); Total Protein 7.7 g/dL (6.5-8.0)
[2024-04-12 14:32] LABS: B Type Natriuretic Peptide 11 pg/mL (<100)
[2024-04-12 14:33] LABS: Troponin-I High Sensitivity 6.3 ng/L (<3.5-35.0)
[2024-04-12 14:55] LABS: Influenza A PCR NEGATIVE (Negative); Influenza B PCR NEGATIVE (Negative); Resp Syncy Virus RNA Qual PCR NEGATIVE (Negative); SARS COV2 PCR INHOUSE NEGATIVE (Negative)
[2024-04-12 16:58] VITALS: PULSE 100; RESP 22; O2SAT 92
[2024-04-12] MEDS: Albuterol Sulfate 5 MG, Albuterol/Iprat 2.5/0.5MG 3 ML 3 ML INHALE (16:58)
== END 2024-04-12 19:13 | disposition left against medical advice (07) ==
PROVIDERS: Nurse Practitioner Family; Emergency Provider Emergency Medicine; PCP Internal Medicine Geriatric Medicine
DX: R06.02 Shortness of breath (principal); J45.909 Unspecified asthma, uncomplicated; R00.0 Tachycardia, unspecified; E11.9 Type 2 diabetes mellitus without complications; Z79.4 Long term (current) use of insulin; F17.210 Nicotine dependence, cigarettes, uncomplicated; Z79.899 Other long term (current) drug therapy; Z03.818 Encounter for observation for suspected exposure to other biological agents ruled out
CPT/HCPCS: 0241U; 71046; 80053; 83735; 83880; 84484; 85025; 85610; 93005; 94640; 99284

== ENCOUNTER → 2024-04-12 13:55 | Outpatient (BNV) | payer OTHER, SELFPAY | PROVIDERS: PCP Internal Medicine Geriatric Medicine; Visit Provider Radiology Diagnostic Radiology | DX: R06.02 Shortness of breath (principal) | CPT/HCPCS: 71046 ==

== ENCOUNTER → 2024-04-12 13:55 | Outpatient (BNV) | payer OTHER, SELFPAY | PROVIDERS: Emergency Provider Emergency Medicine; PCP Internal Medicine Geriatric Medicine; Visit Provider Internal Medicine Cardiovascular Disease | DX: R06.02 Shortness of breath (principal); R00.0 Tachycardia, unspecified; R94.31 Abnormal electrocardiogram [ECG] [EKG] | CPT/HCPCS: 93010 ==

== ENCOUNTER 2024-04-14 09:08 | Outpatient (AMB) | payer OTHER, SELFPAY ==
--- NOTE | 2024-04-14 08:33 | MHC.OFFVIS ---
Vital Signs 04/14/24 09:14 Height 5 ft 6 in Weight 114 lb 10.246 oz BMI 18.5 BP 116/78 Blood Pressure Location Rt brachial Position Sitting Pulse 102 H Pulse Source Pulse Oximeter Intake Visit Reasons: T1DM Intake Note: Patient presents today for a follow-up on Type 2 Diabetes Mellitus: Last Diabetic eye exam was on: 04/04/2024 Last Podiatry exam was on: Patient does not see a Farm Machine Tender Most recent HbA1c: 8.4%, 02/08/2024 Random Glucose- 154 mg/dL, Today Assistant Elementary Teacher Required: Yes Assistant Elementary Teacher Language: Subsystems Engineer Services: Assistant Elementary Teacher Offered & Declined Accompanied by: Self / Same As Patient Allergies No Known Allergies Allergy (Verified 04/14/24 09:22) HPI Comments Details: pie cutter [id number] utilized for appt Patient is a 59 yo male with diabetes diagnosed in 1988 when he was hospitalized with HHS/DKA who presents for management of diabetes. He was last seen by Dr. Ramirez 02/18/2024. Hemoglobin A1c 02/18/2024 8.4% down from previous 9.2. Initially diagnosed as type 2. Is now insulin deficient. He has a history of pancreatitis after being kicked in the abdomen by a horse. C-peptide 0.50 10/2023 CARLOZ <5.0 islet cell antibodies negative History of pancreatitis while on Januvia Diabetes medications: Tresiba 10 units NovoLog 6 units before meals Does report uses extra dose at night if bg is elevated. 3+ over 240 K[place]y average glucose: 234 14 day continuous glucose monitor report reviewed Glucose Managment indicator 8.9 % Days with CGM data [ ] % TIme in ranges: Forty-one % very high (above 250) 36 % high ?(181-250) 23 % in range ?(70-180] 0 % low (69-55) 0 % ?very low (below 54) Interpretation [ readings consistently high] Has neuropathy: Symptoms reported: + numbness, tingling in lower extremities. Denies cramping in lower extremities Hypoglycemia: none recent Reports symptoms of fatigue, shakiness, sweating. Carries glucose gel at all times Denies retinopathy: last eye exam 03/2024 seen by coding validator [facility] Has nephropathy: 04/12/2024 eGFR>60 microalbumin 45 06/2023 Has HLD on statin 06/2023 LDL 82 BNP 11 Exercise: 1/2 - 1 hour a day. Other specialists: psychiatrist, therapist, nephrology [facility] screen Fibrosis-4 (Fib-4) Index for liver fibrosis (calculated on lab work done: 04/28) 1.29 points Advanced fibrosis excluded Approximate Fibrosis stage Brad 0-1 *Use with caution in patients <35 or >65 years old, as the score has been shown to be less reliable in these patients. Prior Imaging 09/2022 LIVER, GALLBLADDER, AND BILIARY TREE: The liver is normal in size, shape, and attenuation. No focal hepatic lesion. Prominence of the extrahepatic biliary ductal system is stable. No choledocholithiasis or gross pancreatic head lesion.. The gallbladder is unremarkable with no evidence of radiopaque gallstones, gallbladder wall thickening, or obvious pericholecystic inflammatory changes. Action Plan: rescreen two years from date of screening labs 04/2026 [facility] Medical History Anxiety Tubular adenoma of colon History of pancreatitis Seborrheic dermatitis Mood disorder 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 pylori infection GERD (gastroesophageal reflux disease) Abdominal wall bulge Vitamin D deficiency HLD (hyperlipidemia) HTN (hypertension) T2DM (type 2 diabetes mellitus) Surgical History History of surgery Hx of hernia repair Hx of prior ablation treatment Hx of partial nephrectomy Hx of colonoscopy History of esophagogastroduodenoscopy (EGD) Family History Father Liver cancer Diabetes Alcohol abuse Mother Diabetes Breast cancer Social History Household Members: None Unable to assess alcohol history related to: Unknown Patient Tobacco Use Status: Current everyday Tobacco user Tobacco use type: Cigarette Cigarette Packs Per Day: 0.5 Cigarettes Per Day: 10 Physical Exam Vital Signs: Last Vital Signs Pulse 102 H 04/14/24 09:14 BP 116/78 04/14/24 09:14 BMI result Body Mass Index 18.5 Const Other: Absence of Cushingoid features. Absence of acromegalic features. Neck exam reveals nl size thyroid about 15 gms. No thyroid nodules palpable. Heart S1 S2, Reg R/R. No M/R G. Skin exam reveals absence of vitiligo or acanthosis nigricans. Visual exam of foot performed. No ulcerations or open lesions. No inter digit maceration or fissuring. No onychomycosis, no callouses. Sensation intact to monofilament exam. Vibratory sensation is normal with 128 Hz tuning fork. good cap refill positive pulses Results Reviewed Results Reviewed: Laboratory Last Values Glucose (Clinic) 154 mg/dL (60-115) H 04/14/24 09:22 Assessment & Plan Assessment & Plan (1) Type 1.5 diabetes, managed as type 1: Code(s): E13.9 - Other specified diabetes mellitus without complications Category: Medical Plan: This is a 58-year-old male with history of type 2 diabetes with a history of pancreatitis a now with lower C-peptide being treated with basal-bolus insulin with fair glycemic control and no known microvascular or macrovascular complications. Will increase both tresiba and short acting insulin. Consider insulin pump Prepump education CDE and RD Orders: Orders Creatinine Urine Today E13.9 - Other specified diabetes mellitus without complications Microalbumin, Random (w Creat) Today E13.9 - Other specified diabetes mellitus without complications Patient Instructions: Take 15 carb carbohydrate grams to treat a low sugar (3-4 glucose tablets, half a glass of juice or 15 carbohydrate grams of soft candy such as gummie snacks). Recheck your sugar in 15 minutes and re-treat again with 15 carbohydrate grams if low or still with symptoms. Do not drive a car or operate machinery if you do not know what your blood sugar is, if it is low or in excess of 300. The patient was counseled to achieve a target A1C of 7% (154 avg). Fasting blood sugars should be 90-130 in the morning and less than 180 two hours after meals. Reviewed the relationship between poor diabetic control and the development of complications. Coding Level of Care Code Est Pt Level 4 (30649) Complex EM visit Add On G2211 Diagnoses Type 1.5 diabetes, managed as type 1 E13.9 Time Spent (min) 30 Comment Time spent reviewing labs/provider notes, face to face, chart doc
[2024-04-14 09:14] VITALS: BP 116/78; PULSE 102; BMI 18.5
[2024-04-14 09:26] LABS: Glucose, Whole Blood 154 mg/dL (60-115)
== END 2024-04-14 09:51 | disposition home or self-care (01) ==
PROVIDERS: PCP Internal Medicine Geriatric Medicine; Visit Provider Nurse Practitioner Adult Health
DX: E13.9 Other specified diabetes mellitus without complications (principal)
CPT/HCPCS: 99214; G2211

== ENCOUNTER → 2024-04-14 09:08 | Outpatient (BNVA) | payer OTHER, SELFPAY | PROVIDERS: PCP Internal Medicine Geriatric Medicine; Visit Provider Nurse Practitioner Adult Health | DX: E13.9 Other specified diabetes mellitus without complications (principal) | CPT/HCPCS: 82947; 99212 ==

== ENCOUNTER 2024-05-08 12:59 | Outpatient (AMB) | payer OTHER, SELFPAY ==
[2024-05-08 13:15] VITALS: BP 138/68; PULSE 88; O2SAT 94; BMI 19.2
--- NOTE | 2024-05-08 13:15 | MHC.OFFVIS ---
Vital Signs 05/08/24 13:15 Height 5 ft 6 in Weight 119 lb BMI 19.2 BP 138/68 Blood Pressure Location Rt brachial Position Sitting Pulse 88 Pulse Source Pulse Oximeter Pulse Oximetry (%) 94 Oxygen Delivery Method Nasal Cannula Oxygen Flow Rate 2 Intake Visit Reasons: Hypoxia/COPD Casting Operator Required: No Test Engine Operator: Test Engine Operator offered & declined Accompanied by: Self / Same As Patient Allergies No Known Allergies Allergy (Verified 05/08/24 13:22) Medication List - Last Reconciled 05/08/24 by Yarelis Naqvi LPN acetaminophen (Acetaminophen Pain Relief) 500 mg PO ONCE PRN albuterol sulfate 90 mcg/actuation (Ventolin HFA) 2 puffs inhalation Q4H PRN aspirin (Adult Low Dose Aspirin) 81 mg PO DAILY atorvastatin (Lipitor) 40 mg PO DAILY blood sugar diagnostic As directed blood sugar diagnostic ([employer] Ultra Test strips) As directed blood-glucose meter ([employer] Ultra2 Meter) As directed budesonide (Pulmicort) 1 mg inhalation DAILY PRN buprenorphine-naloxone 8-2 mg (Suboxone) 10 mg sublingual BID buspirone 15 mg PO BID clonazepam (Klonopin) 2 mg PO BEDTIME clonazepam (Klonopin) 1 mg PO BID PRN docusate sodium (DOK) 100 mg PO DAILY PRN flash glucose scanning reader ([employer] Kasey 2 [place]) As directed checks 8X/day flash glucose sensor ([employer] Kasey 2 Sensor kit) USE DIRECTED TO TEST BLOOD SUGAR 8 TIMES DAILY fluticasone furoate-vilanterol 100-25 mcg/dose (Breo Ellipta) 1 ea inhalation DAILY glucose (Dex4 Glucose) 16 grams (4 x 4 gram) PO Q15M PRN ibuprofen (IBU) 800 mg PO TID PRN insulin aspart U-100 (Novolog FlexPen U-100 Insulin aspart) inject sq 6 units with breakfast, 8 units with lunch, 4 units with supper. insulin degludec (Tresiba FlexTouch U-100 insulin) 10 units (0.1 mL) subcut DAILY lancets As directed lancing device with lancets ([employer] Delica Plus Lancing Device kit) As directed lidocaine 5% (Lidoderm) 0 patches topical DAILY PRN montelukast (Singulair) 10 mg PO DAILY naloxone 4 mg/actuation (Narcan) 0 sprays intranasal NEEDED PRN nicotine (Nicoderm CQ) 1 patch transdermal DAILY pen needle, diabetic As directed quetiapine (Seroquel) 50 mg PO BID ramelteon (Rozerem) 8 mg PO BEDTIME sennosides (senna) 8.6 mg PO DAILY silver sulfadiazine 1% (Silvadene) 1 appl topical DAILY HPI HPI Hypoxia/COPD: Details: Hubert is a pleasant 59 year old male, current smoker, with 120+ pack year history with underlying COPD, HTN, HLD, DMII, and PAD. He was referred by PCP after recent hospital admission to [facility] for COPD exacerbation, discharged on 2L supplemental oxygen. CXR revealed curvilinear 1.9 cm density seen projecting in the left mid lung over the left posterior sixth rib, with no further imaging. He denies prior hospitalizations related to respiratory distress or need for supplemental oxygen. He reports asthma diagnosed a few years ago, never requiring intubation. He was previously on Pulmicort however switched to Breo after recent admission with suboptimal effect. He continues to report dyspnea on exertion, dry cough and wheezing. He denies any seasonal allergies. He denies any occupational exposures. He denies any pertinent family history. Unfortunately, he continues to smoke a few cigarettes per day. He cut down a few months ago previously smoking 3 ppd. [facility] Medical History (Updated 05/11/24 @ 13:15 by Chanel Thomas NP) Anxiety Tubular adenoma of colon History of pancreatitis Seborrheic dermatitis Mood disorder 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 pylori infection GERD (gastroesophageal reflux disease) Abdominal wall bulge Vitamin D deficiency HLD (hyperlipidemia) HTN (hypertension) T2DM (type 2 diabetes mellitus) Surgical History History of surgery Hx of hernia repair Hx of prior ablation treatment Hx of partial nephrectomy Hx of colonoscopy History of esophagogastroduodenoscopy (EGD) Family History Father Liver cancer Diabetes Alcohol abuse Mother Diabetes Breast cancer Social History (Updated 05/08/24 @ 13:25 by Yarelis Naqvi LPN) Household Members: None Unable to assess alcohol history related to: Unknown Patient Tobacco Use Status: Current everyday Tobacco user Tobacco use type: Cigarette Cigarettes Per Day: 3 Review of Systems Const Denies chills, Denies excessive sweating, Denies fever(s), Denies headache(s) and Denies night sweats Eyes Denies dry eyes, Denies irritation and Denies itchy eyes ENT Reports Normal hearing present, Denies headache(s), Denies nasal congestion, Denies nasal discharge, Denies post nasal drip and Denies sore throat Card Denies chest pain, Denies chest pain at rest, Denies chest pain with activity, Denies claudication, Denies leg edema, Denies dyspnea, Denies orthopnea and Denies paroxysmal nocturnal dyspnea Resp Denies chest congestion, Denies excessive phlegm production, Denies pain on inspiration, Denies pain with cough, Denies dyspnea and Denies stridor Musc Denies myalgias Neuro Reports Normal hearing present and Denies headache(s) Endo Denies excessive sweating Dagoberto/Lymph Denies lymphadenopathy Aller/Immun Denies itchy eyes and Denies seasonal rhinorrhea Physical Exam Vital Signs: Last Vital Signs Pulse 88 05/08/24 13:15 BP 138/68 05/08/24 13:15 Pulse Ox 94 05/08/24 13:15 Oxygen Delivery Method Nasal Cannula 05/08/24 13:15 Oxygen Flow Rate 2 05/08/24 13:15 BMI result Body Mass Index 19.2 Const General: cooperative, healthy appearing, comfortable, no acute distress, well developed and alert Orientation/consciousness: patient oriented x3 Limitations: no limitations HEENT Head: Yes normal to inspection, Yes normocephalic and Yes atraumatic Ears: hearing grossly normal bilaterally and external ears normal Eyes General: appearance normal, both eyes and all related structures Eyelids: Yes eyelids normal Sclerae: sclerae normal EOM: EOMs intact bilaterally Neck Neck: Yes normal visual inspection and Yes no lymphadenopathy Lymphatic: no lymphadenopathy noted Chest Chest palpation & inspection: normal inspection of the chest Resp Effort & Inspection: normal respiratory effort, able to speak in complete sentences, no audible wheezes, no cough, no stridor, not tachypneic, no tripod positioning and no use of accessory muscles Auscultation: diminished lung sounds Cardio Jugular venous distension: no JVD Rate: regular rate Rhythm: regular rhythm Skin Other: warm, dry General skin exam: no rashes or lesions noted Neuro General: patient oriented x3 Cranial nerves: Yes Normal hearing present Cognition (Neuro): normal cognition Gait exam (Neuro): Normal gait present Extrem General: Yes normal to inspection, Yes capillary refill normal, Yes no clubbing, cyanosis or edema and Yes no pedal edema Psych Appearance: grossly normal and well kempt Speech and movement: Normal speech and movement present and Clear speech present Affect: normal affect Attitude: cooperative Thought process: Normal thought process present Thought content: Normal thought content present Insight: Good insight present (Psych) Judgement: Good judgement present (Psych) Results Reviewed Results Reviewed: RESULT: Chest 2 Views Frontal and Lat Chest 2 Views Frontal and Lat Reason: Shortness of Breath; Clinical Question(s): Pneumonia; COMPARISON: Chest x-ray dated 03/23/2019 FINDINGS: LINES AND TUBES: None. LUNGS AND PLEURA: Large lung volumes. Curvilinear 1.9 cm density seen projecting in the left mid lung over the left posterior sixth rib. No pleural effusion. No pneumothorax. HEART, MEDIASTINUM AND ALEX: Heart is normal in size. Normal mediastinal and hilar contour. BONES AND SOFT TISSUES: No acute abnormality. Chronic healed left-sided rib fractures. IMPRESSION: Curvilinear peripherally dense opacity projecting over the left midlung on the frontal view of uncertain significance. This may reflect scarring or peripherally dense nodule. Correlation with any interval imaging would be of benefit. Alternatively, if no imaging is available for comparison, chest CT can be performed for further characterization. I have personally reviewed the images and I agree with this report. WSN: [id number] Ordering Physician: Glen Clancy Reason For Exam Shortness of Breath Signature Line Dictated By: Corazon Burton DO Dictated Date/Time: 05/06/24 9:34 am Reviewed By: Serena Gould MD Signed By: Serena Gould MD Signed Date/Time: 05/06/24 9:39 am Transcribed By: YINKA Transcribed Date/Time: 05/06/24 8:07 am Assessment & Plan Assessment & Plan (1) COPD (chronic obstructive pulmonary disease): Code(s): J44.9 - Chronic obstructive pulmonary disease, unspecified Category: Medical (2) On supplemental oxygen therapy: Code(s): Z99.81 - Dependence on supplemental oxygen Category: Medical (3) Nicotine dependence, cigarettes, uncomplicated: Code(s): F17.210 - Nicotine dependence, cigarettes, uncomplicated Category: Medical (4) Abnormal chest xray: Code(s): R93.89 - Abnormal findings on diagnostic imaging of other specified body structures Category: Medical Plan Hubert presents for pulmonary evaluation after recent admission for acute respiratory failure with hypoxemia, now currently requiring 2L supplemental oxygen. He continues to report suboptimal effect with Breo, will switch to Trelegy. Smoking cessation reviewed, motivated to quit on own. Will send for PFT to assess severity of obstructive defect. Will send for chest CT given abnormal finding on CXR and smoking history. Will perform 6MWT at next visit to assess need for continued supplemental oxygen. All questions were answered and patient is in agreement of plan. Will follow up in 6-8 weeks or sooner if needed. Orders: Orders CT chest wo IV con Today F17.210 - Nicotine dependence, cigarettes, uncomplicated, R93.89 - Abnormal findings on diagnostic imaging of other specified body structures PFT pulmonary function test Today J44.9 - Chronic obstructive pulmonary disease, unspecified Medications: New wpeeoiapekn-irrueqjzz-axyvukum 200-62.5-25 mcg (Trelegy Ellipta) 1 inh inhalation DAILY 60 ea 6RF Coding Level of Care Code New Pt Level 4 (87967) Diagnoses COPD (chronic obstructive pulmonary disease) J44.9 On supplemental oxygen therapy Z99.81 Nicotine dependence, cigarettes, uncomplicated F17.210 Abnormal chest xray R93.89
--- OUTSIDE RECORDS SUMMARY | 2024-05-08 14:39 | XMS_ITS | Encounter Summary ---
Author Organization [employer] Address [address] [place] [address] Care Team Providers Care Straight Edger Name Role Phone Name, Ananda CRANDALL Primary Care Provider [phone] Encounter Details Date Type Department Care Team (Late Contact Info) Description 05/10/2022 Orders Only [facility] [address] [place] [phone] Alis Zavala, COREY Uncomplicated opioid dependence ([facility]) Social History Tobacco Use Types Packs/Day [...] Department Care Team (Late Contact Info) Description 05/13/2024 9:30 AM EDT Office Visit [facility] [address] [place] [address] [phone] Latrice Ibrahim MD [address] [place] [address] [phone] 06/01/2024 9:00 AM EDT Medication Management [facility] [address] [place] [phone] Geeta Dove, PharmD [address] [place] [address] 06/04/2024 9:45 AM EDT Office Visit [facility] [address] [place] [phone] Natalie Davis, OD [address] [place] [address] 06/10/2024 9:30 AM EDT Clinical Support [address] [address] Sonali Stubbs, COREY [address] [place] [phone] 07/15/2024 10:45 AM EDT Office Visit [facility] [address] [place] [phone] Name, MD Ananda [address] [place] [phone] documented as of this encounter Visit Diagnoses Diagnosis Uncomplicated opioid dependence (CMS/HCC) documented in this encounter Care Teams Straight Edger Relationship Specialty Start Date End Date Ananda Spain MD [address] [place] [phone] PCP - General Family Medicine 06/01/15 documented as of this encounter
--- OUTSIDE RECORDS SUMMARY | 2024-05-08 14:39 | XMS_ITS | Encounter Summary ---
Author Organization [employer] Address [address] [place] [address] Care Team Providers Care Aquaculture Farm Manager Name Role Phone Name, Ananda CRANDALL Primary Care Provider [phone] Encounter Details Date Type Department Care Team ([facility] Contact Info) Description 03/28/2022 Orders Only [facility] [address] [place], [place] [phone] Teresa Moody LPN Social History Tobacco Use [...] Upcoming Encounters Date Type Department Care Team ([facility] Contact Info) Description 05/13/2024 9:30 AM EDT Office Visit [facility] [address] [place] [address] [phone] Latrice Ibrahim MD [address] [place] [phone] 06/01/2024 9:00 AM EDT Medication Management [facility] [address] [place] [phone] Geeta Dove, PharmD [address] [place] [address] 06/04/2024 9:45 AM EDT Office Visit [facility] [address] [place] [phone] Natalie Davis, OD [address] [place] [address] 06/10/2024 9:30 AM EDT Clinical Support [address] [address] Sonali Stubbs, COREY [address] [place] [address] 07/15/2024 10:45 AM EDT Office Visit [facility] [address] [place] [address] Name, MD Ananda [address] [place] [address] documented as of this encounter Visit Diagnoses Not on filedocumented in this encounter Care Teams Aquaculture Farm Manager Relationship Specialty Start Date End Date NameAnanda MD [address] [place] [phone] PCP - General Family Medicine 06/01/15 documented as of this encounter
--- OUTSIDE RECORDS SUMMARY | 2024-05-08 14:39 | XMS_ITS | Encounter Summary ---
Author Organization [employer] Address [address] [place] [address] Care Team Providers Care Cook Apprentice Pastry Name Role Phone Name, Ananda CRANDALL Primary Care Provider Reason for Visit * Reason Comments Med Refill Encounter Details Date Type Department Care Team ([facility] Contact Info) Description 02/28/2023 Refill [facility] [address] [place], [place] [phone] Name, MD Ananda [address] [place] [address] Pain of left leg Social History Tobacco [...] Care Team (Late st Contact Info) Description 05/13/2024 9:30 AM EDT Office Visit [facility] [address] [place] [phone] Latrice Ibrahim MD [address] [place] [address] 06/01/2024 9:00 AM EDT Medication Management [address] [address] Geeta Dove, PharmD [address] [place] [address] 06/04/2024 9:45 AM EDT Office Visit [facility] [address] [place] [phone] Natalie Davis, OD [address] [place] [address] 06/10/2024 9:30 AM EDT Clinical Support [facility] [address] [place] [phone] Sonali Stubbs, COREY [address] [place] [address] 07/15/2024 10:45 AM EDT Office Visit [address] [phone] Name, MD Ananda [address] [place] [address] documented as of this encounter Visit Diagnoses Diagnosis Pain of left leg documented in this encounter Additional Health Concerns Assessment Noted Time PHQ-9 Depression Total Score: 3 10/04/19 23 2:21 PM EDT documented as of this encounter Care Teams Cook Apprentice Pastry Relationship Specialty Start Date End Date Name, MD Ananda [address] [place] [address] PCP - General Family Medicine 06/01/15 documented as of this encounter
--- OUTSIDE RECORDS SUMMARY | 2024-05-08 14:39 | XMS_ITS | Encounter Summary ---
Author Organization [employer] Address [address] [place] [address] Care Team Providers Care Reimbursement Counselor Name Role Phone Name, Ananda CRANDALL Primary Care Provider [phone] Reason for Visit * Reason Onset Date Comments Med Refill 2024 Encounter Details Date Type Department Care Team ([facility] st Contact Info) Description 2024 Refill [facility] [address] [place], [place] [phone] Sonali Stubbs, RN [address] [place] [address] Uncomplicated opioid dependence (CMS/HCC) Social History Tobacco [...] Description 05/13/2024 9:30 AM EDT Office Visit [facility] [address] [place] [phone] Latrice Ibrahim MD [address] [place] [phone] 06/01/2024 9:00 AM EDT Medication Management [address] [address] Geeta Dove, PharmD [address] [place] [phone] 06/04/2024 9:45 AM EDT Office Visit [facility] [address] [place] [phone] Natalie Davis, OD [address] [place] [phone] 06/10/2024 9:30 AM EDT Clinical Support [facility] [address] [place] [phone] Sonali Stubbs, RN [address] [place] [phone] 07/15/2024 10:45 AM EDT Office Visit [facility] [address] [place] [phone] Grabiel, MD Ananda [address] [place] [address] documented as of this encounter Visit Diagnoses Diagnosis Uncomplicated opioid dependence (CMS/HCC) documented in this encounter Additional Health Concerns Assessment Noted Time PHQ-9 Depression Total Score: 10 024 9:15 AM EDT documented as of this encounter Care Teams Reimbursement Counselor Relationship Specialty Start Date End Date Name, MD Ananda [address] [place] [address] PCP - General Family Medicine 06/01/15 documented as of this encounter
--- OUTSIDE RECORDS SUMMARY | 2024-05-08 14:39 | XMS_ITS | Encounter Summary ---
Author Organization web care [employer] Address [address] [place] [address] Care Team Providers Care Painter Drum Name Role Phone Ananda Spain MD Primary Care Provider [phone] Reason for Referral * Consultation (Routine) - Authorized Specialty Diagnoses / Procedures Referred By Contac t Referred To Contact Pulmonary Disease Diagnoses COPD exacerbation (CMS/HCC) Chronic obstructive pulmonary disease, unspecified COPD type (CMS/HCC) Hypoxia Ananda Spain MD [address] [place] [address] Phone: tel: fax: [facility] [address] Floor [place], [place] Phone: tel: fax: Referral ID Status Reason Start Date Expiration Date Visits Requested Visits Authorized [id number] Authorized Specialty Services Required 04/16/2024 04/16/2025 1 1 * Consultation (Routine) - Authorized Specialty Diagnoses / Procedures Referred By Contac t Referred To Contact Pharmacy Diagnoses COPD exacerbation (CMS/HCC) Ananda Spain MD [address] [place] [address] Phone: tel: fax: Referral ID Status Reason Start Date Expiration Date Visits Requested Visits Authorized [id number] Authorized Consult and Treat 04/16/2024 04/16/2025 6 6 Reason for Visit * Reason Comments Hospital Follow-up Encounter Details Date Type Department Care Team ([facility] st Contact Info) Description 04/16/2024 10:00 AM EST Office Visit [facility] [address] [place] [place] [address] Name, MD Ananda [address] [place] [address] Chronic obstructive pulmonary disease, unspecified COPD type (CMS/HCC) (Primary Dx); COPD exacerbation (CMS/HCC); Hypoxia; Non-cardiac chest pain; Type 2 diabetes mellitus with hyperglycemia, with long-term current use of insulin (CMS/HCC) Social History Tobacco Use Types Packs/Day [...] Sign Reading Time Taken Comments Blood Pressure 126/82 04/16/2024 10:12 AM EST Pulse 96 04/16/2024 10:12 AM EST Temperature 36.8 ??C (98.2 ??F) 04/16/2024 10:[address] Respiratory Rate 16 04/16/2024 10:12 AM EST Oxygen Saturation 97% 04/16/2024 10:12 AM EST Inhaled Oxygen Concentration - - Weight 55 kg (121 lb 3.2 oz) 04/16/2024 10:12 AM EST Height - - Body Mass Index 19.56 02/28/2024 10:43 AM EST documented in this encounter Progress Notes * Ananda Spain MD - 04/16/2024 10:00 AM EST Subjective Patient ID: Hubert Rios is a 59 y.o. male who presents for Hospital Follow-up. Patient comes for a follow-up visit. He feels well. His oxygen saturation is normal and he is not using his oxygen supplementation during his visit. He continues smoking 2 cigarettes a day. He has been using Breo and albuterol at home. He is not using Incruse. He recently finished another course ofprednisone prescribed at walk-in clinic. His blood sugar has been in the 200s since he is on the prednisone. He was recently hospitalized with chest pain in the setting of COPD exacerbation. He had EKG abnormalities that prompted transfer to [facility] where he had a negative cardiac catheterization. He was discharged with a diagnosis of COPD exacerbation. He was discharged on Breo. He was previously pre scribed Advair and Incruse that he was not using regularly. Summary of the recent hospitalization is written below: [facility] (03/29/24-03/30/24) Patient presented to [place] ED with complaint of 5/10 chest pain. Transferred to [facility] for cardiac cath. Cardiac cath showed no significant active coronary artery disease. Patient also c/o SOB and andworsening wheezing. Pain thought to be possibly pleurisy/costochondritis in the setting of COPD exacerbation. Started on Breo inhaler, prednisone and amoxicillin. Evaluated by pulmonary RN and patient discharged on 2L of O2 on ambulation ([employer] is [place]). Medication changes that occurred during hospitalization include: ?? Added ?? Breo Ellipta 100*25 mcg/inh - 1 puff once daily ?? Azithromycin 500 mg once daily x 4 days ?? Prednisone 20 mg - 2 tabs once daily x 5 days ?? Changed: none ?? Discontinued: none Review of Systems Constitutional: Negative for chills, fatigue and fever. HENT: Negative for sore throat. Respiratory: Positive for cough, shortness of breath and wheezing. Negative for chest tightness. Cardiovascular: Negative for chest pain, palpitations and leg swelling. Gastrointestinal: Negative for abdominal pain and blood in stool. Visit Vitals BP 126/82 Pulse 96 Temp 98.2 ??F (36.8 ??C) (Oral) Resp 16 Wt 121 lb 3.2 oz (55 kg) SpO2 97% BMI 19.56 kg/m?? Smoking Status Every Day BSA 1.6 m?? Objective Physical Exam Constitutional: Appearance: Normal appearance. Cardiovascular: Rate and Rhythm: Normal rate and regular rhythm. Heart sounds: No murmur heard. Pulmonary: Effort: Pulmonary effort is normal. No respiratory distress. Breath sounds: Wheezing present. No rhonchi or rales. Abdominal: Palpations: Abdomen is soft. Tenderness: There is no abdominal tenderness. Musculoskeletal: Right lower leg: No edema. Left lower leg: No edema. Neurological: Mental Status: He is alert. Assessment/Plan Diagnoses and all orders for this visit: Chronic obstructive pulmonary disease, unspecified COPD type ([facility]) Comments: I recommended the patient to restart Incruse Ellipta daily, continue rescue albuterol, continue Breo, I will start azithromycin 3 times a week, I will refer him back to pulmonary at [facility]. I did not give him more prednisone since he is feeling better and his blood sugars have been too high. Respiratory panel was negative recently at [facility]. Chest x-rays have been unremarkable negative for acute pathology at [facility]. Referral to smoking cessation program. Orders: - Umeclidinium [place] (Incruse Ellipta) 62.5 MCG/ACT aerosol powder ; Inhale 1 Act (62.5 mcg) Onceper day. - albuterol (Ventolin HFA) 108 (90 Base) MCG/ACT inhaler; INHALE 2 PUFFS BY MOUTH EVERY 4 TO 6 HOURS NEEDED - Referral to Pulmonology; Future COPD exacerbation ([facility]) - Referral to Pharmacy CDTM - Referral to Pulmonology; Future Hypoxia Comments: Symptoms have improved. The patient was prescribed 2 L with ambulation. Orders: - Referral to Pulmonology; Future Non-cardiac chest pain Comments: Resolved. Recent cardiac cath was negative. Type 2 diabetes mellitus with hyperglycemia, with long-term current use of insulin ([facility]) Comments: Recent hyperglycemia secondary to prednisone use. Continue insulin as prescribed by [facility]. Avoidsweets and soda. I did not prescribe more prednisone at this point. Orders: - POCT Glucose - POCT HGB A1C Other orders - Fluticasone Furoate-Vilanterol 100-25 MCG/ACT aerosol powder ; Inhale 1 puff Once per day. Same time every day - azithromycin (Zithromax) 500 MG tablet; Take 1 tablet (500 mg) by mouth every 3 (three) days. documented in this encounter Plan of Treatment Upcoming Encounters Date Type Department Care Team ([facility] st Contact Info) Description 05/13/2024 9:30 AM EDT Office Visit [facility] [address] [place] [address] Latrice Ibrahim MD [address] [place] [address] 06/01/2024 9:00 AM EDT Medication Management [facility] [address] [place] [address] Geeta Dove PharmD [address] [place] [address] 06/04/2024 9:45 AM EDT Office Visit [facility] [address] [place] [address] Natalie Davis, OD [address] [place] [address] 06/10/2024 9:30 AM EDT Clinical Support [address] [address] Sonali Stubbs, RN [address] [place] [address] 07/15/2024 10:45 AM EDT Office Visit [address] [address] NameAnanda MD [address] [place] [phone] Scheduled Referrals Name Type Priority Associated Diagnoses Orde r Schedule Referral to Pharmacy CDTM Outpatient Referral Routine COPD exacerbation (CMS/HCC) Ordered: 04/16/2024 Referral to Pulmonology Outpatient Referral Routine COPD exacerbation ([facility]) Chronic obstructive pulmonary disease, unspecified COPD type ([facility]) Hypoxia Expected: 04/16/2024 (Approximate), Expires: 04/16/2025 documented as of this encounter Procedures Procedure Name Priority Date/Time Associated Diagnosis Comments POCT GLYCATED HEMOGLOBIN, TOTAL Routine 04/16/2024 10:24 AM EST Type 2 diabetes mellitus with hyperglycemia, with long-term current use of insulin ([facility]) POCT GLUCOSE Routine 04/16/2024 10:21 AM EST Type 2 diabetes mellitus with hyperglycemia, with long-term current use of insulin ([facility]) documented in this encounter Results * (ABNORMAL) POCT HGB A1C (04/16/2024 10:24 AM EST) Hemoglobin A1C 8.8(A) 4.0 - 6.0 % QC Media Lot # [id number] Lot# Expiration Date 835,621 Blood 04/16/2024 10:2 4 AM EST Ananda Spain MD POINT OF CARE TEST ENTER/EDIT OR DERABLES Final Result * (ABNORMAL) POCT Glucose (04/16/2024 10:21 AM EST) Glucose Blood, POC 229(A) 60 - 200 mg/dL QC Media Lot # [id number] Lot# Expiration Date Blood Capillary blood specimen / Unknown 04/16/2024 10:21 AM EST Ananda Spain MD POINT OF CARE TEST ENTER/EDIT OR DERABLES Final Result documented in this encounter Visit Diagnoses Diagnosis Chronic obstructive pulmonary disease, unspecified COPD type (CMS/HCC)- Primary COPD exacerbation (CMS/HCC) Obstructive chronic bronchitis with exacerbation Hypoxia Hypoxemia Non-cardiac chest pain Other chest pain Type 2 diabetes mellitus with hyperglycemia, with long-term current use of insulin (CMS/HCC) documented in this encounter Additional Health Concerns Assessment Noted Time PHQ-9 Depression Total Score: 10 024 9:15 AM EDT documented as of this encounter Care Teams Painter Drum Relationship Specialty Start Date End Date Name, MD Ananda [address] [place] [address] PCP - General Family Medicine 06/01/15 documented as of this encounter
--- OUTSIDE RECORDS SUMMARY | 2024-05-08 14:39 | XMS_ITS | Data Portability ---
Author Organization [employer] [facility], [facility] in - [facility] Address [address] [place] [phone] Care Team Providers Care Lab Instructor Name Role Phone HIM CCA OTHER Assessment Encounter Date Assessment Date Assessment LastModified by Organization Details LastModified Time 04/23/2024 04/23/2024 I have reviewed and agree with the assessment and plan as documented by the consumer affairs specialist. I provided real-time medical direction for this encounter and was immediately available to provide additional phone-based assistance as needed. History as noted in EMR and by consumer affairs specialist. I would add / emphasize: Patient seen for home pulse oximeter demonstrating hypoxemia. Found to be hypoxemic on our monitor to the high 80s on room air desaturating to the low 80s with ambulation as well as tachycardic. Seemingly asymptomatic with negative COVID and flu testing however unclear etiology of patient's significant tachycardia and hypoxemia. Recommended ED evaluation for this. Patient was in agreement transported to [facility] subsequently. pallfather Not available 04/24/2024 14:02:36 Plan of Treatment Reminders Order Date Submit Date Provider Last Modified By Organization Details Last Modified Time Details Appointments None recorded. Lab rapid SARS CoV 2 Ag, QL IA, respiratory specimen 2024 025 [facility], [address] [place] [address], [id number], 5 14:47:38 rapid flu (A+B) [address], [id number], 5 14:47:39 Referral None recorded. Procedures None recorded. Surgeries None recorded. Imaging None recorded. Medication Orders None recorded. Patient TargetsNo targets recorded. Patient InstructionsNo instructions recorded. Reason for Referral None Reported. Results Created Date Observation Date Name Description Value Unit Range Abnormal Flag Note LastModifiedBy Organization Detail LastModifiedTime Result Notes None recorded. Medical Equipment None Reported. Allergies No known drug allergies Medications Name Sig Start Date Stop Date Status Note LastModified by Organization Details LastModified Time multivitamin tablet TAKE 1 TABLET BY MOUTH EVERY DAY WITH FOOD active Not Available Not Available No t Available atorvastatin 40 mg tablet TAKE 1 TABLET BY MOUTH EVERY DAY DIRECTED active Not Available Not Available No t Available venlafaxine ER 75 mg capsule,exte nded release 24 hr TAKE 1 CAPSULE BY MOUTH EVERY MORNING WITH 150 MG CAPSULE active Not Available Not Available No t Available albuterol sulfate 2.5 mg/3 mL (0.083 %) solution for nebulization INHALE 1 AMPULE USING A NEBULIZER EVERY 6 HOURS NEEDED FOR WHEEZING active Not Available Not Available No t Available azithromycin 250 mg tablet TAKE 1 TABLET BY MOUTH EVERY DAY FOR 4 DAYS active Not Available Not Available No t Available senna 8.6 mg tablet TAKE 2 TABLETS BY MOUTH EVERY DAY NEEDED FOR CONSTIPATIO N active Not Available Not Available No t Available prednisone 20 mg tablet TAKE 2 TABLETS BY MOUTH EVERY DAY FOR 5 DAYS active Not Available Not Available No t Available clonazepam 1 mg tablet TAKE 1 TABLET BY MOUTH TWICE DAILY active Not Available Not Available No t Available venlafaxine ER 150 mg capsule,exte nded release 24 hr TAKE 1 CAPSULE BY MOUTH EVERY MORNING WITH 75 MG CAPSULE active Not Available Not Available No t Available acetaminophe n 500 mg tablet TAKE 1 TABLET BY MOUTH THREE TIMES DAILY active Not Available Not Available Not Available clonazepam 2 mg tablet TAKE 1 TABLET BY MOUTH AT BEDTIME active Not Available Not Available No t Available glucose 4 gram chewable tablet CHEW 4 TABLETS BY MOUTH EVERY 15 MINUTES NEEDED FOR LOW BLOOD SUGAR UNTIL SYMPTOMS RESOLVED OR LOW BLOOD SUGAR IS RESOLVED active Not Available Not Available No t Available montelukast 10 mg tablet TAKE 1 TABLET BY MOUTH EVERY DAY AT BEDTIME active Not Available Not Available No t Available fluticasone 100 mcg-salmeter ol 50 mcg/dose blistr powdr for inhalation INHALE 1 PUFFS BY MOUTH TWICE DAILY. RINSE MOUTH AFTER USING. active Not Available Not Available No t Available metformin ER 500 mg tablet,exten ded release 24 hr TAKE 1 TABLET BY MOUTH EVERY DAY WITH A MEAL active Not Available Not Available No t Available nicotine 7 mg/24 hr daily transdermal patch APPLY 1 PATCH TOPICALLY TO THE SKIN IN THE MORNING DO NOT SMOKE WHILE USING PATCH active Not Available Not Available No t Available Ventolin HFA 90 mcg/actuatio n aerosol inhaler INHALE 2 PUFFS BY MOUTH EVERY 4 TO 6 HOURS NEEDED active Not Available Not Available No t Available buspirone 15 mg tablet TAKE 1 TABLET BY MOUTH TWICE DAILY active Not Available Not Available No t Available azithromycin 500 mg tablet TAKE 1 TABLET BY MOUTH EVERY 3 DAYS active Not Available Not Available No t Available Novolog FlexPen U-100 Insulin aspart 100 unit/mL (3 mL) subcutaneous INJECT SUBCUTANEOU SLY 6 UNITS WITH BREAKFAST, 8 UNITS WITH LUNCH, AND 4 UNITS WITH SUPPER active Not Available Not Available Not Available ramelteon 8 mg tablet TAKE 1 TABLET BY MOUTH AT BEDTIME active Not Available Not Available No t Available Lantus Solostar U-100 Insulin 100 unit/mL (3 mL) subcutaneous pen INJECT 10 UNITS SUBCUTANEOU SLY AT BEDTIME active Not Available Not Available No t Available BD Ultra-Fine Pham Pen Needle 32 gauge x 5/32 USE DIRECTED FOUR TIMES DAILY active Not Available Not Available No t Available Suboxone 8 mg-2 mg sublingual film DISSOLVE 3 FILMS UNDER THE TONGUE EVERY DAY FOR 28 DAYS active Not Available Not Available Not Available fluticasone furoate 100 mcg-vilanter ol 25 mcg/dose inhalation powder INHALE 1 PUFF BY MOUTH EVERY DAY - SAME TIME EVERY DAY active Not Available Not Available No t Available Incruse Ellipta 62.5 mcg/actuatio n powder for inhalation INHALE 1 PUFF BY MOUTH EVERY DAY AT THE SAME TIME RINSE MOUTH AFTER USING active Not Available Not Available Not Available Tresiba FlexTouch U-100 insulin 100 unit/mL (3 mL) subcutaneous pen INJECT 10 UNITS SUBCUTANEOU SLY EVERY DAY active Not Available Not Available No t Available FreeStyle Precision Isak Strips USE DIRECTED TO TEST BLOOD SUGAR THREE TIMES DAILY active Not Available Not Available Not Available FreeStyle Kasey 2 Sensor kit USE DIRECTED TO TEST BLOOD SUGAR 8 TIMES DAILY active Not Available Not Available Not Available Vitals Date Recorded Oxygen saturation Oxygen saturation in Arterial blood by Pulse oximetry Heart rate Body temperature Respiratory rate Systolic blood pressure Diastolic blood pressure Provider Name and Address Organization Details Last Updated DateTime 5 87 % 87 % 104 /min 98.1 [degF] 16 /min 126 mm[Hg] 74 mm[Hg] Not Available [facility] - production 18:36:46 Social History None recorded. Functional Status None recorded. Mental Status None recorded. Family History Nothing Reported. Medical History No medical history recorded. Past Encounters Encounter ID Performer Location Encounter Start Date Encounter Closed Date Diagnosis/Indication Diagnosis SNOMED-CT Code Diagnosis ICD10 Code Diagnosis Note [id number] Dillon Galeano MD Main - [facility] [address] [place] [address] 04/23/2024 18:36:39 04/24/2024 20:56:44 Hypoxemia 412035235 R09.02 Health Concerns Section Related Observation LastModified by Organization Detai ls LastModified Time None Recorded Concern Status LastModified by Organization Details LastModified Time None Recorded Advance Directives Directive None Recorded Payers Encounter Date Sequence Insurance Name Policy Number Policy Tomlin Covered Member ID Tomlin Member ID Guarantor Name 04/23/2024 1 [facility] - DOS ON OR AFTER 2022 - DUAL ELIGIBLE - SKILLED NURSING OPTIONS AND ONE CARE (MEDICARE REPLACEMENT/ADV ANTAGE - HMO) Hubert Rios [id number] Hubert Rios Notes Date Note Type Note Provider Name and Address Organization Details Recorded Time 04/23/2024 text/html [facility] Nurse Triage Notes (Parvin Barrios - RN): Reason For Request: Patient having breathing problems. Denies: Increased work of breathing/labored ? with or without fever Unable to speak in full sentences without distress Discoloration of skin -cyanosis Needs to sleep sitting up, can? t catch breath Shortness of breath in setting of confusion Chief Complaints: Breathing problems PMH: Asthma, Diabetes Mellitus Type 2, Anxiety Disorder PMH Reviewed at 04/23/2024 - 12:25 Allergies Reviewed at 04/23/2024 - 12:25 Comments: Reporting 02 sat 94% room air at 930a today. Used to wear oxygen but was taken off a long time ago. Patient is asymptomatic. Denies any respiratory s/sx. Patient doctor advised patient to call if 02 level was this low. Speaking full sentences without any resp distress. Education provided on the response time and the member was advised to monitor reported s/s and seek emergency treatment if needed. 04/23 1450- Patient called to give update on clinical status. Patient reporting 02 is still 94% room air. does not report any new symptoms- [place] .Net Programmer Organization Information for [employer] Business Legal Name: [employer], [employer]? Address: [address] [place] [id number], Carpenter General: Gucci VELEZ No.: [id number] .Net Programmer POC Test Results from [employer] [facility] - NIEVES Rapid COVID antigen (18:34:09) COVID: - Attachments uploaded as part of this test result can be found under Documents section. Rapid influenza antigen (18:34:10) Flu: - Attachments uploaded as part of this test result can be found under Documents section. .................. .................. .................. .................. .................. .................. .................. ............... .Net Programmer Note From [employer] [facility]: Dispatched to above address for breathing problem. On arrival patient 59 y/o M, met SC8 at the door, walking unassisted with normal gait, AOX4, airway patent, speaking in full sentences, good color, in no apparent distress. Patient reports he has been checking his SPO2 at home and for the last 2 days has noticed it trending down to the mid 90s, HX COPD, states he feels fine otherwise, just concerned about the number. Patients vital signs checked. SPO2 on RA at rest found to be high 80s, tachycardic in the low 100s at rest. Covid-19 and Flu test checked, both negative, results uploaded. Secondary assessment, pupils PERRL, airway patent, no JVD, trachea midline, equal chest rise and fall, faint expiratory wheezing in upper lobes, normal work of breathing, abdomen soft non tender, no signs of trauma, good radial pulse, skin pink warm and dry. Ambulatory assessment preformed, SPO2 decreased to low 80s, HR increased to 115-120. [facility] contacted, advised of patient complaints, exam findings and test results. [facility] recommends transport to ER for further evaluation due to concerns for PE. Patient agrees with this plan. 911 called, Laurnet MONTAN[facility] and [facility] responded. Verbal report given to [facility] .Net Programmer, took over patient care, will transport to [facility]. Sc8 clear. EOR. .................. .................. .................. .................. .................. .................. .................. ............... [facility] Consulted: Dillon Galeano .................. .................. .................. .................. .................. .................. .................. ............... Disposition: Fulfilled Dillon Galeano MD [address] [facility], [place], [phone], [employer] 04/24/2024 14:02:45
--- OUTSIDE RECORDS SUMMARY | 2024-05-08 14:39 | XMS_ITS | Encounter Summary ---
Author Organization [employer] Address [address] [place] [address] Care Team Providers Care Circulation Tender Name Role Phone Name, Ananda CRANDALL Primary Care Provider [phone] Reason for Visit * Reason Comments Med Refill Encounter Details Date Type Department Care Team (Late st Contact Info) Description 12/07/2022 Refill [facility] [address] [place] [phone] Name, MD Ananda [address] [place] [phone] Type 2 diabetes mellitus without complication, unspecified whether rv mechanic insulin use ([facility]); Type 2 diabetes mellitus without complication, with long-term current use of insulin ([facility]) Social History Tobacco Use Types Packs/Day Years [...] Upcoming Encounters Date Type Department Care Team ([facility] Contact Info) Description 05/13/2024 9:30 AM EDT Office Visit [facility] [address] [place] [phone] Latrice Ibrahim MD [address] [place] [address] 06/01/2024 9:00 AM EDT Medication Management [facility] [address] [place] [address] Geeta Dove, LoretoD [address] [place] [address] 06/04/2024 9:45 AM EDT Office Visit [facility] [address] [place] [address] Natalie Davis, OD [address] [place] [address] 06/10/2024 9:30 AM EDT Clinical Support [facility] [address] [place] [address] Sonali Stubbs, RN [address] [place] [phone] 07/15/2024 10:45 AM EDT Office Visit [facility] [address] [place] [phone] Name, MD Ananda [address] [place] [phone] documented as of this encounter Visit Diagnoses Diagnosis Type 2 diabetes mellitus without complication, unspecified whether rv mechanic insulin use ([facility]) documented in this encounter Additional Health Concerns Assessment Noted Time PHQ-9 Depression Total Score: 3 10/04/19 23 2:21 PM EDT documented as of this encounter Care Teams Circulation Tender Relationship Specialty Start Date End Date Name, MD Ananda [address] [place] [address] PCP - General Family Medicine 06/01/15 documented as of this encounter
--- OUTSIDE RECORDS SUMMARY | 2024-05-08 14:39 | XMS_ITS | Encounter Summary ---
Author Organization [employer] Address [address] [facility] [address] [facility] [address] [place] [address] Care Team Providers Care Hand Driller Name Role Phone Name, Ananda CRANDALL Primary Care Provider [phone] Reason for Visit * Reason Onset Date Comments case in lab 10/03/2022 Encounter Details Date Type Department Care Team ([facility] st Contact Info) Description 10/03/2022 Telephone [facility] [address] [place] [address] Kelvin Haque, DDS [address] [place] [address] case in lab Social History Tobacco Use [...] - 10/03/2022 2:29 PM EDT Hubert from [employer] called in noel that the soonest they can get case back in to office would be 10/10. They stated it is 5 business days and does not include drop off or continuous pickling line pickler helper date. Confirmed with Hubert that as of yet appt has not been scheduled to return and that I would inform officeDR documented in this encounter Plan of Treatment Upcoming Encounters Date Type Department Care Team (Late st Contact Info) Description 05/13/2024 9:30 AM EDT Office Visit [facility] MED[facility] [address] [place] [address] Latrice Ibrahim MD [address] [place] [address] 06/01/2024 9:00 AM EDT Medication Management [address] [address] Geeta Dove, PharmD [address] [place] [address] 06/04/2024 9:45 AM EDT Office Visit [facility] [address] [place] [address] Natalie Davis, OD [address] [place] [address] 06/10/2024 9:30 AM EDT Clinical Support [facility] [address] [place] [address] Sonali Stubbs, RN [address] [place] [address] 07/15/2024 10:45 AM EDT Office Visit [address] [address] Name, MD Ananda [address] [place] [address] documented as of this encounter Visit Diagnoses Not on filedocumented in this encounter Additional Health Concerns Assessment Noted Time PHQ-9 Depression Total Score: 3 10/04/19 23 2:21 PM EDT documented as of this encounter Care Teams Hand Driller Relationship Specialty Start Date End Date Name, MD Ananda [address] [place] [address] PCP - General Family Medicine 06/01/15 documented as of this encounter
--- OUTSIDE RECORDS SUMMARY | 2024-05-08 14:39 | XMS_ITS | Encounter Summary ---
Author Organization [employer] Address [address] [place] [address] Care Team Providers Care Film Inspector Name Role Phone Name, Ananda CRANDALL Primary Care Provider [phone] Reason for Visit * Reason Comments Med Refill Encounter Details Date Type Department Care Team ([facility] Contact Info) Description 04/25/2022 Refill [facility] MED[facility]INE [address] [place] [address] [phone] Name, MD Ananda [address] [place] [address] Wheezing (Primary Dx) Social History Tobacco Use [...] Upcoming Encounters Date Type Department Care Team ([facility] Contact Info) Description 05/13/2024 9:30 AM EDT Office Visit [facility] MED[facility]INE [address] [place] [address] [phone] Latrice Ibrahim MD [address] [place] [address] 06/01/2024 9:00 AM EDT Medication Management [facility] [address] [place] [address] Geeta Dove, LoretoD [address] [place] [address] 06/04/2024 9:45 AM EDT Office Visit [facility] OPTOM[facility]RY [address] [place] [address] TarkaNatalie, OD [address] [place] [address] 06/10/2024 9:30 AM EDT Clinical Support [facility] [address] [place] [address] Sonali Stubbs, RN [address] [place] [address] 07/15/2024 10:45 AM EDT Office Visit [facility] [address] [place] [address] Name, MD Ananda [address] [place] [address] documented as of this encounter Visit Diagnoses Diagnosis Wheezing- Primary documented in this encounter Care Teams Film Inspector Relationship Specialty Start Date End Date Name, MD Ananda [address] [place] [address] PCP - General Family Medicine 06/01/15 documented as of this encounter
--- OUTSIDE RECORDS SUMMARY | 2024-05-08 14:39 | XMS_ITS | Continuity of Care Document ---
Author Organization [employer] [facility] Address [address] [place] [phone] Care Team Providers Care Back Roll Lathe Operator Name Role Phone HIM CCA OTHER Assessment Encounter Date Assessment Date Assessment LastModified by Organization Details LastModified Time 04/23/2024 04/23/2024 I have reviewed and agree with the assessment and plan as documented by the mud analysis well logging operator. I provided real-time medical direction for this encounter and was immediately available to provide additional phone-based assistance as needed. History as noted in EMR and by mud analysis well logging operator. I would add / emphasize: Patient seen [...] this. Patient was in agreement transported to [facility] subsequently. pallfather Not available 04/24/2024 14:02:36 Plan of Treatment Reminders Order Date Submit Date Provider Last Modified By Organization Details Last Modified Time Details Appointments None recorded. Lab rapid SARS CoV 2 Ag, QL IA, respiratory specimen 2024 025 [facility], [address] [place] [address], [id number], 5 14:47:38 rapid flu (A+B) 2024 025 [facility], [address] [place] [address], [id number], 5 14:47:39 Referral None recorded. Procedures None [...] SNOMED-CT Code Diagnosis ICD10 Code Diagnosis Note [id number] Dillon Galeano MD Main - instED [address] [place] [phone] 04/23/2024 18:36:39 04/24/2024 20:56:44 Hypoxemia [id number] R09.02 Health Concerns Section Related Observation LastModified by Organization Detai ls LastModified Time None Recorded Concern Status LastModified by Organization Details LastModified Time None Recorded Payers Encounter Date Sequence Insurance Name Policy Number Policy Tomlin Covered Member ID Tomlin Member ID Guarantor Name 04/23/2024 1 [facility] - DOS ON OR AFTER 2022 - DUAL ELIGIBLE - SENIOR LIVING OPTIONS AND ONE CARE (MEDICARE REPLACEMENT/ADV ANTAGE - HMO) Hubert Rios [id number] Hubert Rios Notes Date Note Type Note [...] does not report any new symptoms- [place] [employer] Organization Information for [employer] Business Legal Name: [employer]? Address: [address] [place] [id number], Phys Therapist: Gucci VELEZ No.: [id number] [employer] T[employer] POC Test Results from [facility] Rapid COVID antigen (18:34:09) COVID: - Attachments uploaded as part of this test result can be found under Documents section. Rapid influenza antigen (18:34:10) Flu: - Attachments uploaded as part of this test result can be found under Documents section. .................. .................. .................. .................. .................. .................. .................. ............... 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 [facility] contacted, advised of patient complaints, exam findings and test results. [facility] recommends transport to ER for further evaluation due to concerns for PE. Patient agrees with this plan. 911 called, Laurent MONTANO and [facility] responded. Verbal report given to [facility] [employer], took over patient care, will transport to [facility]. Sc8 clear. EOR. .................. .................. .................. .................. .................. .................. .................. ............... [facility] Consulted: Dillon Galeano .................. .................. .................. .................. .................. .................. .................. ............... Disposition: Fulfilled Dillon Galeano MD [address] [facility], [place], [address], [employer] 04/24/2024 14:02:45
--- OUTSIDE RECORDS SUMMARY | 2024-05-08 14:39 | XMS_ITS | Encounter Summary ---
Author Organization [employer] Address [address] 7[address] [place] [address] Care Team Providers Care Box Puller Name Role Phone Name, Ananda CRANDALL Primary Care Provider [phone] Reason for Visit * Reason Comments Med Refill Encounter Details Date Type Department Care Team ([facility] Contact Info) Description 04/23/2024 Refill [facility] MEDICINE [address] [place], [place] [phone] Name, MD Ananda [address] [place] [address] Constipation, unspecified constipation type Social History Tobacco Use Types Packs/Day Years [...] Description 05/13/2024 9:30 AM EDT Office Visit [facility] MEDICINE [address] [place] [address] Latrice Ibrahim MD [address] [place] [address] 06/01/2024 9:00 AM EDT Medication Management [facility] MEDICINE [address] [place] [address] Geeta Dove, LoretoD [address] [place] [address] 06/04/2024 9:45 AM EDT Office Visit [facility] OPTOMETRY [address] [place] [address] Natalie Davis, OD [address] [place] [address] 06/10/2024 9:30 AM EDT Clinical Support [facility] MEDICINE [address] [place] [address] Sonali Stubbs, COREY [address] [place] [phone] 07/15/2024 10:45 AM EDT Office Visit [facility] MEDICINE [address] [place] [address] Grabiel, MD Ananda [address] [place] [address] documented as of this encounter Visit Diagnoses Diagnosis Constipation, unspecified constipation type documented in this encounter Additional Health Concerns Assessment Noted Time PHQ-9 Depression Total Score: 10 024 9:15 AM EDT documented as of this encounter Care Teams Box Puller Relationship Specialty Start Date End Date Name, MD Ananda [address] [place] [address] PCP - General Family Medicine 06/01/15 documented as of this encounter
--- OUTSIDE RECORDS SUMMARY | 2024-05-08 14:39 | XMS_ITS | Encounter Summary ---
Author Organization [employer] Address [address] [place] [address] Care Team Providers Care [employer] Membership Sales Agent Name Role Phone Name, Ananda CRANDALL Primary Care Provider [phone] Reason for Visit * Reason Comments Asthma Encounter Details Date Type Department Care Team ([facility] Contact Info) Description 04/13/2024 11:00 AM EST Office Visit [facility] [address] [place], [place] [phone] Breanna Das NP [address] [place] [address] Cough in adult patient (Primary Dx); COPD with acute exacerbation (CMS/HCC) Social History Tobacco Use Types Packs/Day [...] Sign Reading Time Taken Comments Blood Pressure 115/73 04/13/2024 11:11 AM EST Pulse 110 04/13/2024 11:11 AM EST Temperature 36.6 ??C (97.9 ??F) 04/13/2024 11:[address] Respiratory Rate 16 04/13/2024 11:11 AM EST Oxygen Saturation 94% 04/13/2024 11:11 AM EST Inhaled Oxygen Concentration - - Weight 52.6 kg (116 lb) 04/13/2024 11:11 AM EST Height - - Body Mass Index 18.72 02/28/2024 10:43 AM EST documented in this encounter Progress Notes * Breanna Das NP - 04/13/2024 11:00 AM EST SUBJECTIVE: Hubert Rios is a 59 y.o. male who presents to [facility] for a sick visit. Denies recent illness, injury, or hospitalization. HPI States he went to [facility] ED last night but left before being seen due to his ride not being able to wait. Reports decreased appetite, increased cough that's productive of white sputum and headache. Reports wheezing and some shortness of breath also. Has been using advair discus, budesonide neb solution and albuterol inhalers with no improvement. Current smoker of 5 cigarettes per day. Denies fevers. Review of Systems Constitutional: Negative. Negative for chills and fever. HENT: Negative. Negative for congestion and sore throat. Eyes: Negative for discharge. Respiratory: Positive for cough, chest tightness, shortness of breath and wheezing. Cardiovascular: Negative for chest pain and palpitations. Gastrointestinal: Negative. Negative for abdominal pain, constipation, diarrhea and nausea. Genitourinary: Negative. Negative for difficulty urinating. Musculoskeletal: Negative. Negative for arthralgias and myalgias. Skin: Negative for rash. Neurological: Negative. Negative for dizziness, speech difficulty, light- headedness and headaches. Hematological: Negative. Psychiatric/Behavioral: Negative for behavioral problems, self-injury and suicidal ideas. The patient is not nervous/anxious. OBJECTIVE: Visit Vitals BP 115/73 (BP Location: Left arm, Patient Position: Sitting, BP Cuff Size: Adult) Pulse 110 Temp 97.9 ??F (36.6 ??C) (Temporal) Resp 16 Wt 116 lb (52.6 kg) SpO2 94% BMI 18.72 kg/m?? Smoking Status Every Day BSA 1.56 m?? Patient Active Problem List Diagnosis Chronic obstructive lung disease (CMS/HCC) Adenomatous polyp of colon Backache Pulmonary Mycobacterium avium complex (MAC) infection (CMS/HCC) Chronic low back pain Cognitive disorder Contusion of chest T2DM (type 2 diabetes mellitus) (CMS/HCC) Lung mass Mood disorder (CMS/HCC) Nocturia Non-cardiac chest pain Opioid dependence (CMS/HCC) Retinal scar Seasonal allergic rhinitis Seborrheic dermatitis Tobacco dependence Dental caries Edentulous maxilla BPH (benign prostatic hyperplasia) HLD (hyperlipidemia) HTN (hypertension) Nonhealing ulcer of left lower extremity (CMS/HCC) 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 Constitutional: General: He is not in acute distress. Appearance: Normal appearance. He is not ill-appearing. HENT: Head: Normocephalic and atraumatic. Right Ear: External ear normal. Left Ear: External ear normal. Nose: Nose normal. Eyes: General: No scleral icterus. Extraocular Movements: Extraocular movements intact. Cardiovascular: Rate and Rhythm: Normal rate and regular rhythm. Pulses: Normal pulses. Heart sounds: Normal heart sounds. Pulmonary: Effort: Pulmonary effort is normal. No respiratory distress. Breath sounds: Wheezing present. Musculoskeletal: General: Normal range of motion. Cervical back: Normal range of motion. Skin: General: Skin is warm and dry. Neurological: General: No focal deficit present. Mental Status: He is alert and oriented to person, place, and time. Gait: Gait normal. Psychiatric: Mood and Affect: Mood normal. Behavior: Behavior normal. Assessment/Plan Diagnoses and all orders for this visit: Cough in adult patient - Influenza B (ID NOW Rapid Molecular) - Influenza A (ID NOW Rapid Molecular) - POCT Rapid COVID Ag - Acetaminophen Extra Strength 500 MG tablet; Take 1 tablet (500 mg) by mouth 3 times daily. COPD with acute exacerbation ([facility]) Comments: -POCT flu and COVID negative -vital signs are stable and patient does not appear to be in any acute distress at this time -was discharged from [facility] 03/30 and treated with z-tal and 5 day course of prednisone 40 for COPD exacerbation. - rx'ed additional course of prednisone 40 for persistent symptoms. No need for repeat antibiotics as he recently completed a course. -advised continuation of current respiratory regimen -he is scheduled to F on 04/16. Encouraged to keep this appointment and report is no improvement in symptoms. -ED precaution reviewed -patient verbalize understanding Orders: - predniSONE (Deltasone) 20 MG tablet; Take 2 tablets (40 mg) by mouth Once per day for 5 days. Citizen Of [place] Translation: Patient is bilingual and declines translation services documented in this encounter Plan of Treatment Upcoming Encounters Date Type Department Care Team (Late st Contact Info) Description 05/13/2024 9:30 AM EDT Office Visit [facility] [address] [place] [address] Latrice Ibrhaim MD [address] [place] [address] 06/01/2024 9:00 AM EDT Medication Management [facility] [address] [place] [address] Geeta Dove, Donte [address] [place] [address] 06/04/2024 9:45 AM EDT Office Visit [facility] OPT[facility] [address] [place] [address] Natalie Davis, OD [address] [place] [address] 06/10/2024 9:30 AM EDT Clinical Support [facility] [address] [place] [address] Sonali Stubbs, COREY [address] [place] [address] 07/15/2024 10:45 AM EDT Office Visit [facility] [address] [place] [address] Name, MD Ananda [address] [place] [address] documented as of this encounter Procedures Procedure Name Priority Date/Time Associated Diagnosis Comments POCT INFLUENZA B (ID NOW RAPID MOLECULAR) Routine 04/13/2024 11:34 AM EST Cough in adult patient POCT INFLUENZA A (ID NOW RAPID MOLECULAR) Routine 04/13/2024 11:34 AM EST Cough in adult patient POCT RAPID COVID ANTIGEN Routine 04/13/2024 11:33 AM EST Cough in adult patient documented in this encounter Results * Influenza A (ID NOW Rapid Molecular) (04/13/2024 11:34 AM EST) [facility] Influenza A Negative Negative, Indeterminate [facility] Swab 04/13/2024 11:3 4 AM EST us Breanna Das PRODUCTS MECHANICAL DESIGN ENGINEER POINT OF CARE TEST ENTER/EDIT O RDERABLES Final Result [facility] [address] [place] [address] [phone] * Influenza B (ID NOW Rapid Molecular) (04/13/2024 11:34 AM EST) [facility] Influenza B Negative Negative, Indeterminate [facility] Swab 04/13/2024 11:3 4 AM EST us Breanna Das PRODUCTS MECHANICAL DESIGN ENGINEER POINT OF CARE TEST ENTER/EDIT O RDERABLES Final Result [facility] [address] [place] [address] [phone] * POCT Rapid COVID Ag (04/13/2024 11:33 AM EST) Rapid COVID Ag Negative Swab 04/13/2024 11:3 3 AM EST us Breanna Das PRODUCTS MECHANICAL DESIGN ENGINEER POINT OF CARE TEST ENTER/EDIT O RDERABLES Final Result documented in this encounter Visit Diagnoses Diagnosis Cough in adult patient- Primary COPD with acute exacerbation (CMS/HCC) documented in this encounter Additional Health Concerns Assessment Noted Time PHQ-9 Depression Total Score: 10 024 9:15 AM EDT documented as of this encounter Care Teams [employer] Membership Sales Agent Relationship Specialty Start Date End Date Name, MD Ananda [address] [place] [address] PCP - General Family Medicine 06/01/15 documented as of this encounter
--- OUTSIDE RECORDS SUMMARY | 2024-05-08 14:39 | XMS_ITS | Encounter Summary ---
Author Organization [employer] Address [address] [facility] [place] [address] Care Team Providers Care Physical Biochemist Name Role Phone Name, Ananda CRANDALL Primary Care Provider [phone] Encounter Details Date Type Department Care Team ([facility] st Contact Info) Description 03/28/2023 Abstract [facility] MED[facility]INE [address] [place], [place] [phone] Name, MD Ananda [address] [place] [address] Social History Tobacco Use Types Packs/Day Years [...] t he electric, gas, oil or water [employer] threatened to shut off services in your [...] Description 05/13/2024 9:30 AM EDT Office Visit [facility] MEDICINE [address] [place] [address] Latrice Ibrahim MD [address] [place] [address] 06/01/2024 9:00 AM EDT Medication Management [address] [address] Geeta Dove, PharmD [address] [place] [address] 06/04/2024 9:45 AM EDT Office Visit [facility] OPTOMET[facility] [address] [place] [phone] Natalie Davis, OD [address] [place] [address] 06/10/2024 9:30 AM EDT Clinical Support [facility] [address] [place] [address] Sonali Stubbs, COREY [address] [place] [address] 07/15/2024 10:45 AM EDT Office Visit [address] [address] Grabiel, MD Ananda [address] [place] [address] documented as of this encounter Visit Diagnoses Not on filedocumented in this encounter Additional Health Concerns Assessment Noted Time PHQ-9 Depression Total Score: 3 10/04/19 23 2:21 PM EDT documented as of this encounter Care Teams Physical Biochemist Relationship Specialty Start Date End Date Name, MD Ananda [address] [place] [address] PCP - General Family Medicine 06/01/15 documented as of this encounter
--- OUTSIDE RECORDS SUMMARY | 2024-05-08 14:39 | XMS_ITS | Encounter Summary ---
Author Organization [employer] Address [address] 7t [place] [address] Care Team Providers Care Development Administrator Name Role Phone Name, Ananda CRANDALL Primary Care Provider [phone] Reason for Visit * Reason Comments OBAT Encounter Details Date Type Department Care Team (Latest Contact Info) Description 04/15/2024 9:30 AM EST Clinical Support [facility] [address] [place], [place] [phone] Sonali Stubbs RN [address] [place] [address] Uncomplicated opioid dependence (CMS/HCC) (Primary Dx) Social History Tobacco Use Types [...] as of this encounter Progress Notes * Amy Carrera MA - 04/15/2024 9:30 AM EST * Sonali Stubbs RN - 04/15/2024 9:30 AM EST Subjective Patient ID: Hubert Rios is a 58 y.o. male who presents for OBAT RV. HPI Patient has been in the program for 14 years 8 months, since 07/2009. Currently seeing therapist, Yuko Thomas, at [facility], [address] [place] [address]. Haspsychiatrist, Teodoro Bee, in private practice. Prescribed benzo. Current dose of Suboxone is 24/6 mg daily, on a 4 week schedule appt. LFTs done 04/12/24. [employer] reviewed by provider. PrEP: declined 04/19/21 PCP: last seen 02/28/24 Tobacco use discussion: 08/07/23 Smoking 4-5 cigs per day, cutting down from 3 ppd. LAST VISIT: 03/18/24 Utox: BUP, BZO (Rx) Hubert seen today for opioid use disorder. Had a great time with nephew and other extended family in [place] over the holidays. He still grieves his mother and other family members lost, but also feels heis able to move forward with his life. Due for LFT's, ordered in PCP labs. Working hard on controlling his blood sugar. Continues with therapist and psychiatrist and takes prescribed bzo PRN anxiety. Today 04/15/24 Utox bup, bzo Hubert seen today for follow up for opioid use disorder. Reports he was hospitalized with dx chest pain, COPD exacerbation, Malnutrition at [facility] 03/29/23-03/30/24. [facility] Reports feeling better since hospitalization although sometimes has an asthma exacerbation. OnFriday he is going to [facility] for [facility] and is looking forward to the trip. Plan: Suboxone dosing schedule of 24/6 mg [...] 2.12??(5) and 2.65. documented in this encounter Plan of Treatment Upcoming Encounters Date Type Department Care Team (Late st Contact Info) Description 05/13/2024 9:30 AM EDT Office Visit [facility] [address] [place] [address] [phone] Latrice Ibrahim MD [address] [place] [address] 06/01/2024 9:00 AM EDT Medication Management [facility] [address] [place] [address] [phone] Geeta Dove, PharmD [address] [place] [address] 06/04/2024 9:45 AM EDT Office Visit [facility] [address] [place] [address] Natalie Davis, OD [address] [place] [address] 06/10/2024 9:30 AM EDT Clinical Support [facility] [address] [place] [address] Sonali Stubbs, RN [address] [place] [address] 07/15/2024 10:45 AM EDT Office Visit [facility] [address] [place] [phone] Name, MD Ananda [address] [place] [address] documented as of this encounter Procedures Procedure Name Priority Date/Time Associated Diagnosis Comments POCT FARA-14 URINE DRUG SCREEN Routine 04/15/2024 9:24 AM EST Uncomplicated opioid dependence (CMS/HCC) documented in this encounter Results * POCT FARA-14 Urine Drug Screen (04/15/2024 9:24 AM EST) THC Negative Cocaine Screen, Urine [...] obtained by clean catch procedure / Unknown 04/15/2024 9:24 AM EST Latrice Ibrahim MD POINT OF CARE TEST ENTER/EDIT OR DERABLES Final Result documented in this encounter Visit Diagnoses Diagnosis Uncomplicated opioid dependence (CMS/HCC)- Primary documented in this encounter Additional Health Concerns Assessment Noted Time PHQ-9 Depression Total Score: 10 024 9:15 AM EDT documented as of this encounter Care Teams Development Administrator Relationship Specialty Start Date End Date Name, MD Ananda [address] [place] [address] PCP - General Family Medicine 06/01/15 documented as of this encounter
--- OUTSIDE RECORDS SUMMARY | 2024-05-08 14:39 | XMS_ITS | Encounter Summary ---
Author Organization [employer] Address [address] [facility] 7t [place] [address] Care Team Providers Care Production Control Pegboard Clerk Name Role Phone Name, Ananda CRANDALL Primary Care Provider [phone] Reason for Visit * Reason Onset Date Comments chartprep 04/14/2024 Encounter Details Date Type Department Care Team ([facility] st Contact Info) Description 04/14/2024 Telephone [facility] [address] [place], [place] [phone] Gerda Gutierrez MA chartprep Social History Tobacco Use Types Packs/Day Years [...] encounter Miscellaneous Notes * Telephone Encounter - Gerda Gutierrez MA - 04/14/2024 9:58 AM EST Chart Prep Labs: done except order from 02/28/24 Images: done Vaccines due: yes zoster, covid, Hep A, Hep B Referrals: complete GI appt was on 03/18/24, optometry appt was on 03/05/24 Screenings: colonoscopy Overdue care gaps: A1C, Glucose, Sbirt, PHQ-9, Oral Health, CARLOZ-7 A1C due on 05/28/24 documented in this encounter Plan of Treatment Upcoming Encounters Date Type Department Care Team (Late st Contact Info) Description 05/13/2024 9:30 AM EDT Office Visit [facility] MED[facility] [address] [place] [address] Latrice Ibrahim MD [address] [place] [address] 06/01/2024 9:00 AM EDT Medication Management [facility] MED[facility]INE [address] [place] [address] Geeta Dove PharmD [address] [place] [address] 06/04/2024 9:45 AM EDT Office Visit [facility] OPTOMETRY [address] [place] [address] Natalie Davis, OD [address] [place] [address] 06/10/2024 9:30 AM EDT Clinical Support [address] [address] Sonali Stubbs, RN [address] [place] [address] 07/15/2024 10:45 AM EDT Office Visit [address] [address] Name, MD Ananda [address] [place] [address] documented as of this encounter Visit Diagnoses Not on filedocumented in this encounter Additional Health Concerns Assessment Noted Time PHQ-9 Depression Total Score: 10 024 9:15 AM EDT documented as of this encounter Care Teams Production Control Pegboard Clerk Relationship Specialty Start Date End Date NameAnanda MD [address] [place] [address] PCP - General Family Medicine 06/01/15 documented as of this encounter
--- OUTSIDE RECORDS SUMMARY | 2024-05-08 14:39 | XMS_ITS | Encounter Summary ---
Author Organization [employer] Address [address] 7t [place] [address] Care Team Providers Care Contact Center Engineer Name Role Phone Name, Ananda CRANDALL Primary Care Provider [phone] Reason for Visit * Reason Onset Date Comments No Show 05/06/2024 Encounter Details Date Type Department Care Team ([facility] Contact Info) Description 05/06/[address] [facility] [address] [place], [place] [phone] Name, MD Ananda [address] [place] [address] No Show Social History Tobacco Use Types Packs/Day Years [...] Telephone Encounter - Torrie Balderrama RN - 05/06/2024 11:51 AM EST TC x 2 placed to pt via BLS receiving associate store (Parvin ID#[id number]) as pt no showed to sick on site today 05/06/24 with Breanna Das for ED follow up chest pain, [facility] 04/23/2024. No answer, LVM to call office back and ask to speak to blue team nurses. * Telephone Encounter - Itzel Alvares - 05/06/2024 10:47 AM EST Patient no show to [facility]ICK [facility] appointment on 05/06/24 with Breanna Das. documented in this encounter Plan of Treatment Upcoming Encounters Date Type Department Care Team (Late st Contact Info) Description 05/13/2024 9:30 AM EDT Office Visit [facility] [address] [place] [address] Latrice Ibrahim MD [address] [place] [address] 06/01/2024 9:00 AM EDT Medication Management [facility] [address] [place] [address] Geeta Dove, PharmD [address] [place] [address] 06/04/2024 9:45 AM EDT Office Visit [facility] OPTOMETRY [address] [place] [address] Ryan Natalie, OD [address] [place] [address] 06/10/2024 9:30 AM EDT Clinical Support [facility] [address] [place] [address] Sonali Stubbs, RN [address] [place] [address] 07/15/2024 10:45 AM EDT Office Visit [facility] [address] [place] [address] Name, MD Ananda [address] [place] [address] documented as of this encounter Visit Diagnoses Not on filedocumented in this encounter Additional Health Concerns Assessment Noted Time PHQ-9 Depression Total Score: 10 024 9:15 AM EDT documented as of this encounter Care Teams Contact Center Engineer Relationship Specialty Start Date End Date NameAnanda MD [address] [place] [address] PCP - General Family Medicine 06/01/15 documented as of this encounter
--- OUTSIDE RECORDS SUMMARY | 2024-05-08 14:39 | XMS_ITS | Encounter Summary ---
Author Organization [employer] Address [address] 7t [place] [address] Care Team Providers Care Athletics Director Name Role Phone Name, Ananda CRANDALL Primary Care Provider [phone] Encounter Details Date Type Department Care Team (Latest Contact Info) Description 04/15/2024 Travel Social History Tobacco Use Types Packs/Day [...] Description 05/13/2024 9:30 AM EDT Office [facility] [address] [place] [address] Latrice Ibrahim MD [address] [place] [address] 06/01/2024 9:00 AM EDT Medication Management [facility] [address] [place] [address] Geeta Dove PharmD [address] [place] [address] 06/04/2024 9:45 AM EDT Office Visit [facility] OPTOMETRY [address] [place] [address] Natalie Davis, OD [address] [place] [address] 06/10/2024 9:30 AM EDT Clinical Support [facility] [address] [place] [address] Sonali Stubbs, COREY [address] [place] [address] 07/15/2024 10:45 AM EDT Office Visit [facility] [address] [place] [address] Ananda Spain MD [address] [place] [address] documented as of this encounter Visit Diagnoses Not on filedocumented in this encounter Additional Health Concerns Assessment Noted Time PHQ-9 Depression Total Score: 10 024 9:15 AM EDT documented as of this encounter Care Teams Athletics Director Relationship Specialty Start Date End Date Name, MD Ananda [address] [place] [address] PCP - General Family Medicine 06/01/15 documented as of this encounter
--- OUTSIDE RECORDS SUMMARY | 2024-05-08 14:39 | XMS_ITS | Encounter Summary ---
Author Organization [employer] Address [address] h Floor [address] Care Team Providers Care Global Compensation Analyst Name Role Phone Name, Ananda CRANDALL Primary Care Provider Reason for Referral * Consultation (Routine) - Authorized Specialty Diagnoses / Procedures Referred By Contac t Referred To Contact Pharmacy Diagnoses Tobacco dependence NameAnanda MD [address] [place] [address] Phone: tel: fax: Referral ID Status Reason Start Date Expiration Date Visits Requested Visits Authorized [id number] Authorized Consult and Treat 05/06/2024 05/06/2025 6 6 Encounter Details Date Type Department Care Team ([facility] st Contact Info) Description 05/06/2024 Telephone [facility] [address] [place] [address] [phone] Ananda Sharpe MD [address] [place], [place] [phone] Social History Tobacco Use Types Packs/Day Years [...] as of this encounter Miscellaneous Notes * Addendum Note - Ananda Sharpe MD - 05/06/2024 10:13 AM ESTAddended by: ANANDA SHARPE on: 05/06/2024 10:13 AM Modules accepted: Orders * Telephone Encounter - Geeta Dove PharmD - 05/06/2024 9:30 AM EST Pharmacy is requesting an updated CDTM referral with a diagnosis of smoking cessation / tobacco dependence (F17.200). This is to replace existing referral 04/16 w/ attached diagnosis of COPD for whichpharmacy does not have an existing CDTM agreement. Patient is already scheduled w/ [facility] 06/01.Thank you! documented in this encounter Plan of Treatment Upcoming Encounters Date Type Department Care Team (Late st Contact Info) Description 05/13/2024 9:30 AM EDT Office Visit [facility] [address] [place] [address] Latrice Ibrahim MD [address] [place] [address] 06/01/2024 9:00 AM EDT Medication Management [address] [address] Geeta Dove, PharmD [address] [place] [address] 06/04/2024 9:45 AM EDT Office Visit [facility] OPTOMETRY [address] [place] [address] Natalie Davis, OD [address] [place] [address] 06/10/2024 9:30 AM EDT Clinical Support [address] [address] Sonali Stubbs, RN [address] [place] [address] 07/15/2024 10:45 AM EDT Office Visit [address] [address] Ananda Sharpe MD [address] [place] [address] Scheduled Referrals Name Type Priority Associated Diagnoses Orde r Schedule Referral to Pharmacy CDTM Outpatient Referral Routine Tobacco dependence Ordered: 05/06/2024 documented as of this encounter Visit Diagnoses Diagnosis Tobacco dependence- Primary Tobacco use disorder documented in this encounter Additional Health Concerns Assessment Noted Time PHQ-9 Depression Total Score: 10 024 9:15 AM EDT documented as of this encounter Care Teams Global Compensation Analyst Relationship Specialty Start Date End Date NameAnanda MD [address] [place] [address] PCP - General Family Medicine 06/01/15 documented as of this encounter
--- OUTSIDE RECORDS SUMMARY | 2024-05-08 14:39 | XMS_ITS | Encounter Summary ---
Author Organization [employer] Address [address] [facility] [address] [address] [facility] [address] 7t [place] [address] Care Team Providers Care Desk Reporter Name Role Phone Name, Ananda CRANDALL Primary Care Provider [phone] Encounter Details Date Type Department Care Team ([facility] Contact Info) Description 02/14/[address] [address] ProviderDamari MD Social History Tobacco Use Types Packs/Day Years [...] Description 05/13/2024 9:30 AM EDT Office Visit [address] [phone] Latrice Ibrahim MD [address] [place] [address] 06/01/2024 9:00 AM EDT Medication Management [address] [address] Geeta Dove, PharmD 230 [place] [address] 06/04/2024 9:45 AM EDT Office Visit [facility] OPTOMETRY [address] [place] [address] Natalie Davis, OD [address] [place] [address] 06/10/2024 9:30 AM EDT Clinical Support [facility] MEDICINE [address] [place] [address] Sonali Stubbs, COREY [address] [place] [address] 07/15/2024 10:45 AM EDT Office Visit [facility] [address] [place] [address] Name, MD Ananda [address] [place] [address] documented as of this encounter Visit Diagnoses Not on filedocumented in this encounter Care Teams Desk Reporter Relationship Specialty Start Date End Date NameAnanda MD [address] [place] [address] PCP - General Family Medicine 06/01/15 documented as of this encounter
--- OUTSIDE RECORDS SUMMARY | 2024-05-08 14:39 | XMS_ITS | Encounter Summary ---
Author Organization [employer] Address [address] 7t [place] [address] Care Team Providers Care Market Research Executive Name Role Phone Name, Ananda CRANDALL Primary Care Provider [phone] Encounter Details Date Type Department Care Team (Latest Contact Info) Description 01/09/2021 Abstract [facility] CONVERSIONS Dental, Provider, DDS Social History Tobacco [...] Encounters Date Type Department Care Team ( Contact Info) Description 05/13/2024 9:30 AM EDT Office Visit [facility] MEDICINE [address] [place] [address] Latrice Ibrahim MD [address] [place] [address] 06/01/2024 9:00 AM EDT Medication Management [facility] MED[facility] [address] [place] [address] Geeta Dove, PharmD [address] [place] [address] 06/04/2024 9:45 AM EDT Office Visit [facility] OPTOMETRY [address] [place] [address] Natalie Davis, OD [address] [place] [address] 06/10/2024 9:30 AM EDT Clinical Support [address] [address] Sonali Stubbs, RN [address] [place] [address] 07/15/2024 10:45 AM EDT Office Visit [address] [address] Name, MD Ananda [address] [place] [address] documented as of this encounter Visit Diagnoses Not on filedocumented in this encounter Care Teams Market Research Executive Relationship Specialty Start Date End Date Name, MD Ananda [address] [place] [address] PCP - General Family Medicine 06/01/15 documented as of this encounter
--- OUTSIDE RECORDS SUMMARY | 2024-05-08 14:39 | XMS_ITS | Encounter Summary ---
Author Organization [employer] Address [address] [facility] [address] [address] 7t [place] [address] Care Team Providers Care Cooler Tender Name Role Phone Name, Ananda CRANDALL Primary Care Provider [phone] Reason for Visit * Reason Onset Date Comments Appointment 09/06/2022 Encounter Details Date Type Department Care Team ([facility] Contact Info) Description 09/06/2022 Telephone [facility] ADULT DENTAL [address] [place], [place] [phone] Kelvin Haque, LENNY [address] [place] [address] Appointment Social History Tobacco Use Types Packs/Day [...] Description 05/13/2024 9:30 AM EDT Office Visit [facility] MEDICINE [address] [place] [address] Latrice Ibrahim MD [address] [place] [address] 06/01/2024 9:00 AM EDT Medication Management [address] [address] Geeta Dove, PharmD [address] [place] [address] 06/04/2024 9:45 AM EDT Office Visit [facility] OPTOMETRY [address] [place] [address] Natalie Davis, OD [address] [place] [address] 06/10/2024 9:30 AM EDT Clinical Support [address] [address] Sonali Stubbs, COREY [address] [place] [address] 07/15/2024 10:45 AM EDT Office Visit [address] [address] Name, MD Ananda [address] [place] [address] documented as of this encounter Visit Diagnoses Not on filedocumented in this encounter Care Teams Cooler Tender Relationship Specialty Start Date End Date Name, MD Ananda [address] [place] [address] PCP - General Family Medicine 06/01/15 documented as of this encounter
--- OUTSIDE RECORDS SUMMARY | 2024-05-08 14:39 | XMS_ITS | Encounter Summary ---
Author Organization [employer] Address [address] 7t [place] [address] Care Team Providers Care Cook Night Name Role Phone Name, Ananda CRANDALL Primary Care Provider [phone] Reason for Visit * Reason Onset Date Comments Prior Authorization 05/07/2022 Appointment 05/07/2022 Encounter Details Date Type Department Care Team ([facility] st Contact Info) Description 05/07/2022 Telephone [facility] ADULT DENTAL [address] [place] [address] Kelvin Haque, DDS [address] [place] [address] Prior Authorization; Appointment Social History Tobacco Use [...] specify if for partial. Don't see if [facility] has approved partials for patient. Patient verifying. DR documented in this encounter Plan of Treatment Upcoming Encounters Date Type Department Care Team (Late st Contact Info) Description 05/13/2024 9:30 AM EDT Office Visit [facility] MEDICINE [address] [place] [address] Latrice Ibrahim MD [address] [place] [address] 06/01/2024 9:00 AM EDT Medication Management [address] [address] Geeta Dove PharmD [address] [place] [address] 06/04/2024 9:45 AM EDT Office Visit [facility] OPTOMETRY [address] [place] [address] Natalie Davis, OD [address] [place] [address] 06/10/2024 9:30 AM EDT Clinical Support [address] [address] Sonali Stubbs, COREY [address] [place] [address] 07/15/2024 10:45 AM EDT Office Visit [address] [address] NameAnanda MD [address] [place] [address] documented as of this encounter Visit Diagnoses Not on filedocumented in this encounter Care Teams Cook Night Relationship Specialty Start Date End Date Name, MD Ananda [address] [place] [address] PCP - General Family Medicine 06/01/15 documented as of this encounter
--- OUTSIDE RECORDS SUMMARY | 2024-05-08 14:39 | XMS_ITS | Encounter Summary ---
Author Organization [employer] Address [address] [facility] [address] 7t [place] [address] Care Team Providers Care Middle School French Teacher Name Role Phone Name, Ananda CRANDALL Primary Care Provider [phone] Encounter Details Date Type Department Care Team (Latest Contact Info) Description 04/16/2024 Travel Social History Tobacco Use Types Packs/Day [...] Description 05/13/2024 9:30 AM EDT Office Visit [facility] MEDICINE [address] [place] [address] Latrice Ibrahim MD [address] [place] [address] 06/01/2024 9:00 AM EDT Medication Management [facility] MEDICINE [address] [place] [address] Geeta Dove PharmD [address] [place] [address] 06/04/2024 9:45 AM EDT Office Visit [facility] OPTOMETRY [address] [place] [address] Natalie Davis, OD [address] [place] [address] 06/10/2024 9:30 AM EDT Clinical Support [facility] MEDICINE [address] [place] [address] Sonali Stubbs, COREY [address] [place] [address] 07/15/2024 10:45 AM EDT Office Visit [facility] MEDICINE [address] [place] [address] Ananda Spain MD [address] [place] [address] documented as of this encounter Visit Diagnoses Not on filedocumented in this encounter Additional Health Concerns Assessment Noted Time PHQ-9 Depression Total Score: 10 024 9:15 AM EDT documented as of this encounter Care Teams [employer] French Teacher Relationship Specialty Start Date End Date Name, MD Ananda 230 [place] [address] PCP - General Family Medicine 06/01/15 documented as of this encounter
--- OUTSIDE RECORDS SUMMARY | 2024-05-08 14:39 | XMS_ITS | Encounter Summary ---
Author Organization [employer] Address [address] [facility] [address] 7t [place] [address] Care Team Providers Care Inside Sales Coordinator Name Role Phone Name, Ananda CRANDALL Primary Care Provider [phone] Encounter Details Date Type Department [facility] Description 04/14/2024 Orders Only GENERIC EXTERNAL DATA DEPARTMENT Provider, [...] 05/13/2024 9:30 AM EDT Office Visit [facility] MEDICINE [address] [place] [address] Latrice Ibrahim MD [address] [place] [address] 06/01/2024 9:00 AM EDT Medication Management [address] [address] Geeta Dove, PharmD [address] [place] [address] 06/04/2024 9:45 AM EDT Office Visit [facility] OPTOMETRY [address] [place] [address] Natalie Davis, OD [address] [place] [address] 06/10/2024 9:30 AM EDT Clinical Support [address] [address] Sonali Stubbs, COREY [address] [place] [address] 07/15/2024 10:45 AM EDT Office Visit [address] [address] Ananda Spain MD [address] [place] [address] documented as of this encounter Procedures Procedure Name Priority Date/Time Associated Diagnosis Comments GLUCOSE, WHOLE BLOOD Routine 04/14/2024 9:22 AM EST documented in this encounter Results * (ABNORMAL) Glucose, Whole Blood (04/14/2024 9:22 AM EST) Glucose, Whole Blood 154(H) 60 - 115 mg/dL [facility] Comment:METER #: [id number] 5Testing performed in the Endocrinology Department [address] , [address], [facility]. 04/14/2024 9:22 AM EST 04/14/2024 9:26 AM EST us Generic External Data Provider LAB BLOOD ORDERAB LES Final Result [facility] [address] [place] [phone] documented in this encounter Visit Diagnoses Not on filedocumented in this encounter Additional Health Concerns Assessment Noted Time PHQ-9 Depression Total Score: 10 024 9:15 AM EDT documented as of this encounter Care Teams Inside Sales Coordinator Relationship Specialty Start Date End Date Name, MD Ananda 230 [place] [address] PCP - General Family Medicine 06/01/15 documented as of this encounter
--- OUTSIDE RECORDS SUMMARY | 2024-05-08 14:39 | XMS_ITS | Encounter Summary ---
Author Organization [employer] Address [address] [facility] [address] 7t [place] [address] Care Team Providers Care Slitter Creaser Slotter Operator Name Role Phone Name, Ananda CRANDALL Primary Care Provider Encounter Details Date Type Department Care Team ([facility] Contact Info) Description 04/23/2024 Telephone [facility] MED[facility]INE [address] [place], [place] [phone] Name, MD Ananda 230 [place] [address] Social History Tobacco Use Types Packs/Day Years [...] encounter Miscellaneous Notes * Telephone Encounter - Kim Montez RN - 04/23/2024 9:08 AM EST Ananda Spain MD [facility] Blue Team Nurses Please call [employer] for this patient. We can discontinue his oxygen based on recent readings. T/C placed to [employer]. Advised Guerda of message from PCP. Guerda requests that discontinue order be faxed to [phone]. Faxed as requested with pulmonary rehab note. documented in this encounter Plan of Treatment Upcoming Encounters Date Type Department Care Team (Late st Contact Info) Description 05/13/2024 9:30 AM EDT Office Visit [facility] MED[facility]INE [address] [place] [address] Latrice Ibrahim MD 230 [place] [address] 06/01/2024 9:00 AM EDT Medication Management [facility] MEDICINE [address] [place] [address] Geeta Dove, LoretoD 230 [place] [address] 06/04/2024 9:45 AM EDT Office Visit [facility] OPTOMETRY [address] [place] [address] Natalie Davis, OD [address] [place] [address] 06/10/2024 9:30 AM EDT Clinical Support [address] [address] Sonali Stubbs, RN [address] [place] [address] 07/15/2024 10:45 AM EDT Office Visit [address] [address] Name, MD Ananda [address] [place] [address] documented as of this encounter Visit Diagnoses Not on filedocumented in this encounter Additional Health Concerns Assessment Noted Time PHQ-9 Depression Total Score: 10 024 9:15 AM EDT documented as of this encounter Care Teams Slitter Creaser Slotter Operator Relationship Specialty Start Date End Date NameAnanda MD [address] [place] [address] PCP - General Family Medicine 06/01/15 documented as of this encounter
--- OUTSIDE RECORDS SUMMARY | 2024-05-08 14:39 | XMS_ITS | Encounter Summary ---
Author Organization [employer] Address [address] [facility] [address] 7t [place] [address] Care Team Providers Care Global Compensation Manager Name Role Phone Name, Ananda CRANDALL Primary Care Provider [phone] Reason for Visit * Reason Onset Date Comments Med Refill 05/06/2024 Encounter Details Date Type Department Care Team ([facility] st Contact Info) Description 05/06/2024 Refill [facility] MEDICINE 230 [place], [place] [phone] Sonali Stubbs, RN 230 [place] [address] Uncomplicated opioid dependence (CMS/HCC) Social History Tobacco [...] Description 05/13/2024 9:30 AM EDT Office Visit [facility] MEDICINE [address] [place] [address] Latrice Ibrahim MD [address] [place] [address] 06/01/2024 9:00 AM EDT Medication Management [address] [address] Geeta Dove, PharmD [address] [place] [address] 06/04/2024 9:45 AM EDT Office Visit [facility] OPTOMETRY [address] [place] [address] Natalie Davis, OD [address] [place] [address] 06/10/2024 9:30 AM EDT Clinical Support [facility] MEDICINE [address] [place] [address] Sonali Stubbs, RN [address] [place] [address] 07/15/2024 10:45 AM EDT Office Visit [facility] MEDICINE [address] [place] [address] Grabiel, MD Ananda 230 [place] [address] documented as of this encounter Visit Diagnoses Diagnosis Uncomplicated opioid dependence (CMS/HCC) documented in this encounter Additional Health Concerns Assessment Noted Time PHQ-9 Depression Total Score: 10 024 9:15 AM EDT documented as of this encounter Care Teams Global Compensation Manager Relationship Specialty Start Date End Date Name, MD Ananda 230 [place] [address] PCP - General Family Medicine 06/01/15 documented as of this encounter
--- OUTSIDE RECORDS SUMMARY | 2024-05-08 14:39 | XMS_ITS | Encounter Summary ---
Author Organization [email or web address] Address [address] [facility] [address] 7t [place] [address] Care Team Providers Care Foundation Maker Name Role Phone Name, Aannda CRANDALL Primary Care Provider [phone] Reason for Visit * Reason Onset Date Comments chartprep 04/30/2024 Encounter Details Date Type Department Care Team ([facility] Contact Info) Description 04/30/2024 Telephone [facility]ED[facility] [address] [place], [place] [phone] Name, MD Ananda 230 [place] [address] chartprep Social History Tobacco Use Types Packs/Day [...] encounter Miscellaneous Notes * Telephone Encounter - Zainab Thomas MA - 04/30/2024 10:13 AM EST Chart Prep Labs: done Images: done Vaccines due: yes Covid, hep a, hep b, and zoster. Referrals: pending appt Screenings: colonoscopy , Foot Exam Overdue care gaps: A1C, Glucose, SDOH, PHQ-9, CARLOZ-7 documented in this encounter Plan of Treatment Upcoming Encounters Date Type Department Care Team ([facility] st Contact Info) Description 05/13/2024 9:30 AM EDT Office Visit [facility] MEDICINE [address] [place] [address] Latrice Ibrahim MD 230 [place] [address] 06/01/2024 9:00 AM EDT Medication Management [facility] MEDICINE 230 [place] [address] Geeta Dove PharmD 230 [place] [address] 06/04/2024 9:45 AM EDT Office Visit [facility] OPTOMETRY [address] [place] [address] Natalie Davis, OD 267 [place] [address] 06/10/2024 9:30 AM EDT Clinical Support [address] [address] Sonali Stubbs, RN [address] [place] [address] 07/15/2024 10:45 AM EDT Office Visit [address] [address] Name, MD Ananda [address] [place] [address] documented as of this encounter Visit Diagnoses Not on filedocumented in this encounter Additional Health Concerns Assessment Noted Time PHQ-9 Depression Total Score: 10 024 9:15 AM EDT documented as of this encounter Care Teams Foundation Maker Relationship Specialty Start Date End Date NameAnanda MD [address] [place] [address] PCP - General Family Medicine 06/01/15 documented as of this encounter
--- OUTSIDE RECORDS SUMMARY | 2024-05-08 14:39 | XMS_ITS | Encounter Summary ---
Author Organization [employer] Address [address] [facility] [address] 7t [place] [address] Care Team Providers Care Quality Systems Manager Name Role Phone Name, Ananda CRANDALL Primary Care Provider [phone] Reason for Visit * Reason Comments Med Refill Encounter Details Date Type Department Care Team ([facility] Contact Info) Description 03/08/2024 Refill [facility] MEDICINE 230 [place], [place] [phone] Name, MD Ananda 230 [place], [place] [phone] Chronic obstructive pulmonary disease, unspecified COPD type [...] Description 05/13/2024 9:30 AM EDT Office Visit [facility] MEDICINE [address] [place] [address] Latrice Ibrahim MD [address] [place] [address] 06/01/2024 9:00 AM EDT Medication Management [address] [address] Geeta Dove, PharmD [address] [place] [address] 06/04/2024 9:45 AM EDT Office Visit [facility] OPTOMETRY [address] [place] [address] Natalie Davis, OD [address] [place] [address] 06/10/2024 9:30 AM EDT Clinical Support [facility] MEDICINE [address] [place] [address] Sonali Stubbs, COREY [address] [place] [address] 07/15/2024 10:45 AM EDT Office Visit [address] [address] Name, MD Ananda 230 [place] [address] documented as of this encounter Visit Diagnoses Diagnosis Chronic obstructive pulmonary disease, unspecified COPD type (CMS/HCC) documented in this encounter Additional Health Concerns Assessment Noted Time PHQ-9 Depression Total Score: 10 07/09/ 024 9:15 AM EDT documented as of this encounter Care Teams Quality Systems Manager Relationship Specialty Start Date End Date Name, MD Ananda 230 [place] [address] PCP - General Family Medicine 06/01/15 documented as of this encounter
--- OUTSIDE RECORDS SUMMARY | 2024-05-08 14:39 | XMS_ITS | Encounter Summary ---
Author Organization [employer] Address [address] [facility] [address] 7t [place] [address] Care Team Providers Care Lumber Hacker Name Role Phone Name, Ananda CRANDALL Primary Care Provider [phone] Reason for Visit * Reason Onset Date Comments No Show 05/06/2024 Patient no show for sick on site Encounter Details Date Type Department Care Team ([facility] st Contact Info) Description 05/06/2024 Telephone [facility] MEDICINE 230 [place], [place] [phone] Name, MD Ananda 230 [place] [address] No Show (Patient no show for sick on site ) Social History Tobacco Use Types Packs/Day Years [...] Encounter - Torrie Balderrama RN - 05/06/2024 11:57 AM EST TC x 2 placed to pt via BLS maintenance supervisor 2nd shift (Parvin ID#[id number]) as pt no showed to sick on site today 05/06/24 with Breanna Das for ED follow up chest pain, [facility] 04/23/2024. No answer, LVM to call office back and ask to speak to blue team nurses. * Telephone Encounter - Marilyn Washington - 05/06/2024 11:15 AM EST Patient no show for sick on site documented in this encounter Plan of Treatment Upcoming Encounters Date Type Department Care Team (Late st Contact Info) Description 05/13/2024 9:30 AM EDT Office Visit [facility] MEDICINE [address] [place] [address] Latrice Ibrahim MD 230 [place] [address] 06/01/2024 9:00 AM EDT Medication Management [facility] MEDICINE [address] [place] [address] Geeta Dove, PharmD 230 [place] [address] 06/04/2024 9:45 AM EDT Office Visit [facility] OPTOMETRY 267 [place] [address] Ryan Natalie, OD 267 [place] [address] 06/10/2024 9:30 AM EDT Clinical Support [facility] MEDICINE 230 [place] [address] Sonali Stubbs, RN 230 [place] [address] 07/15/2024 10:45 AM EDT Office Visit [facility] MEDICINE [address] [place] [address] Name, MD Ananda [address] [place] [address] documented as of this encounter Visit Diagnoses Not on filedocumented in this encounter Additional Health Concerns Assessment Noted Time PHQ-9 Depression Total Score: 10 024 9:15 AM EDT documented as of this encounter Care Teams Lumber Hacker Relationship Specialty Start Date End Date NameAnanda MD [address] [place] [address] PCP - General Family Medicine 06/01/15 documented as of this encounter
--- OUTSIDE RECORDS SUMMARY | 2024-05-08 14:39 | XMS_ITS | Encounter Summary ---
Author Organization [employer] Address [address] [facility] [address] 7t [place] [address] Care Team Providers Care Digital Imaging Technician Name Role Phone Name, Ananda CRANDALL Primary Care Provider [phone] Encounter Details Date Type Department Care Team (Latest Contact Info) Description 01/06/2019 Abstract [facility] CONVERSIONS Dental, Provider, DDS Social History [...] Care Team ( st Contact Info) Description 05/13/2024 9:30 AM EDT Office Visit [facility] MEDICINE 230 [place] [address] Latrice Ibrahim MD 230 [place] [address] 06/01/2024 9:00 AM EDT Medication Management [facility] MEDICINE 230 [place] [address] Geeta Dove, PharmD 230 [place] [address] 06/04/2024 9:45 AM EDT Office Visit [facility] OPTOMETRY [address] [place] [address] Natalie Davis, OD [address] [place] [address] 06/10/2024 9:30 AM EDT Clinical Support [address] [address] Sonali Stubbs, RN 230 [place] [address] 07/15/2024 10:45 AM EDT Office Visit [address] [address] Name, MD Ananda [address] [place] [address] documented as of this encounter Visit Diagnoses Not on filedocumented in this encounter Care Teams Digital Imaging Technician Relationship Specialty Start Date End Date Name, MD Ananda [address] [place] [address] PCP - General Family Medicine 06/01/15 documented as of this encounter
--- OUTSIDE RECORDS SUMMARY | 2024-05-08 14:39 | XMS_ITS | Encounter Summary ---
Author Organization [employer] Address [address] [facility] [address] 7t [place] [address] Care Team Providers Care Dish Maker Name Role Phone Name, Ananda CRANDALL Primary Care Provider [phone] Encounter Details Date Type Department Care Team ([facility] st Contact Info) Description 04/10/2024 Telephone [facility] MEDICINE 230 [place], [place] [phone] Kim Montez, RN 230 [place] [address] Social History Tobacco Use Types Packs/Day Years [...] Telephone Encounter - Kim Montez RN - 04/10/2024 11:24 AM EST Fax received from [facility] pharmacy requesting PA for [employer] 2 sensor. PA form faxed to [facility], confirmation received. documented in this encounter Plan of Treatment Upcoming Encounters Date Type Department Care Team (Late st Contact Info) Description 05/13/2024 9:30 AM EDT Office Visit [facility] MEDICINE [address] [place] [address] Latrice Ibrahim MD 230 [place] [address] 06/01/2024 9:00 AM EDT Medication Management [facility] MEDICINE [address] [place] [address] Geeta Dove, PharmD 230 [place] [address] 06/04/2024 9:45 AM EDT Office Visit [facility] OPTOMETRY 267 [place] [address] Natalie Davis, OD 267 [place] [address] 06/10/2024 9:30 AM EDT Clinical Support [facility] MEDICINE [address] [place] [address] Sonali Stubbs, RN [address] [place] [address] 07/15/2024 10:45 AM EDT Office Visit [facility] MEDICINE 230 [place] [address] Name, MD Ananda 230 [place] [address] documented as of this encounter Visit Diagnoses Not on filedocumented in this encounter Additional Health Concerns Assessment Noted Time PHQ-9 Depression Total Score: 10 024 9:15 AM EDT documented as of this encounter Care Teams Dish Maker Relationship Specialty Start Date End Date Name, MD Ananda [address] [place] [address] PCP - General Family Medicine 06/01/15 documented as of this encounter
--- OUTSIDE RECORDS SUMMARY | 2024-05-08 14:40 | XMS_ITS | Encounter Summary ---
Author Organization [employer] Address [address] [facility] [facility] [address] 7t [place] [address] Care Team Providers Care Shear Scrapman Name Role Phone Name, Ananda CRANDALL Primary Care Provider [phone] Encounter Details Date Type Department Care Team ([facility] Contact Info) Description 08/13/2022 Abstract [facility] MEDICINE [address] [place] [address] [phone] Name, MD Ananda [address] [place] [address] [phone] Social History Tobacco Use Types Packs/Day Years [...] Date Type Department Care Team ([facility] Contact Info) Description 05/13/2024 9:30 AM EDT Office Visit [facility] MEDICINE [address] [place] [address] [phone] Latrice Ibrahim MD 230 [place], [place] [phone] 06/01/2024 9:00 AM EDT Medication Management [facility] MEDICINE [address] [place] [address] Geeta Dove, PharmD 230 [place] [address] 06/04/2024 9:45 AM EDT Office Visit [facility] OPTOMETRY 267 [place] [address] Tarclara Natalie, OD 267 [place] [address] 06/10/2024 9:30 AM EDT Clinical Support [address] [address] Sonali Stubbs, RN [address] [place] [address] 07/15/2024 10:45 AM EDT Office Visit [address] [address] Name, MD Ananda [address] [place] [address] documented as of this encounter Procedures Procedure Name Priority Date/Time Associated Diagnosis Comments COLONOSCOPY Routine 08/16/2015 1:52 PM EDT documented in this encounter Results * Colonoscopy (08/16/2015 1:52 PM EDT) Colonoscopy Normal Normal Narrative Gloria Álvarez - 08/16/2015 1:52 PM EDT Recommended 10 year follow up us Historical Provider HEALTH MAINTENANCE Final Result documented in this encounter Visit Diagnoses Not on filedocumented in this encounter Care Teams Shear Scrapman Relationship Specialty Start Date End Date Name, MD Ananda [address] [place] [address] PCP - General Family Medicine 06/01/15 documented as of this encounter
--- OUTSIDE RECORDS SUMMARY | 2024-05-08 14:40 | XMS_ITS | Encounter Summary ---
Author Organization [employer] Address [address] [facility] [address] 7t [place] [address] Care Team Providers Care Manager Orange Name Role Phone Name, Ananda CRANDALL Primary Care Provider [phone] Reason for Visit * Reason Comments Med Refill Encounter Details Date Type Department Care Team ([facility] Contact Info) Description 12/11/2023 Refill [facility] MEDICINE 230 [place], [place] [phone] Name, MD Ananda 230 [place] [address] Type 2 diabetes mellitus without complication, unspecified whether long term care social worker insulin use ([facility]) Social History Tobacco Use Types Packs/Day Years [...] Description 05/13/2024 9:30 AM EDT Office Visit [facility] MEDICINE [address] [place] [address] Latrice Ibrahim MD [address] [place] [address] 06/01/2024 9:00 AM EDT Medication Management [facility] MEDICINE [address] [place] [address] Geeta Dove, PharmD [address] [place] [address] 06/04/2024 9:45 AM EDT Office Visit [facility] OPTOMETRY [address] [place] [address] Natalie Davis, OD [address] [place] [address] 06/10/2024 9:30 AM EDT Clinical Support [facility] MEDICINE [address] [place] [address] Sonali Stubbs, COREY [address] [place] [address] 07/15/2024 10:45 AM EDT Office Visit [facility] MEDICINE [address] [place] [address] Name, MD Ananda [address] [place] [address] documented as of this encounter Visit Diagnoses Diagnosis Type 2 diabetes mellitus without complication, unspecified whether long term care social worker insulin use ([facility]) documented in this encounter Additional Health Concerns Assessment Noted Time PHQ-9 Depression Total Score: 10 024 9:15 AM EDT documented as of this encounter Care Teams Manager Orange Relationship Specialty Start Date End Date Name, MD Ananda 230 [place] [address] PCP - General Family Medicine 06/01/15 documented as of this encounter
--- OUTSIDE RECORDS SUMMARY | 2024-05-08 14:40 | XMS_ITS | Encounter Summary ---
Author Organization [employer] Address [address] [place] [address] Care Team Providers Care Tour Director Name Role Phone Name, Ananda CRANDALL Primary Care Provider Encounter Details Date Type Department Care Team ([facility] Contact Info) Description 04/12/2024 Orders Only GENERIC EXTERNAL DATA DEPARTMENT Provider, [...] Description 05/13/2024 9:30 AM EDT Office Visit [facility] MEDICINE [address] [place] [phone] Latrice Ibrahim MD [address] [place] [phone] 06/01/2024 9:00 AM EDT Medication Management [address] [address] Geeta Dove, PharmD [address] [place] [address] 06/04/2024 9:45 AM EDT Office Visit [facility] OPTOMETRY [address] [place] [address] Natalie Davis, OD [address] [place] [address] 06/10/2024 9:30 AM EDT Clinical Support [address] [address] Sonali Stubbs, COREY [address] [place] [phone] 07/15/2024 10:45 AM EDT Office Visit [address] [address] Ananda Spain MD [address] [place] [phone] documented as of this encounter Procedures Procedure Name Priority Date/Time Associated Diagnosis Comments XR CHEST 2 VIEWS Routine 04/12/2024 3:17 PM EST HIGH SENSITIVITY TROPONIN I Routine 04/12/2024 2:06 PM EST SARS COV2/INFLUENZA A/B AND RSV RNA QL NAAT Routine 04/12/2024 2:06 PM EST CBC WITH AUTO DIFFERENTIAL Routine 04/12/2024 2:06 PM EST PROTHROMBIN TIME-INR Routine 04/12/2024 2:06 PM EST B TYPE NATRIURETIC PEPTIDE (BNP) Routine 04/12/2024 2:06 PM EST MAGNESIUM Routine 04/12/2024 2:06 PM EST COMPREHENSIVE METABOLIC PANEL Routine 04/12/2024 2:06 PM EST documented in this encounter Results * XR Chest 2 Views (04/12/2024 3:17 PM EST) Anatomical Region Laterality Modality Chest Radiographic Altagracia ging 04/12/2024 3:17 PM EST Narrative 04/12/2024 3:18 PM EST ? [facility] ?[address] ?[place] [address] ?XRay Report ? Signed ? Patient: Hubert Cruz ?MR#: ?? [id number] ? : 1965 ?Acct:[id number] ? Age/Sex: 59 / M ?ADM Date: 04/12/24 ? Loc: HO.ED ? Attending Dr: ? Ordering Physician: Pebbles Rooney CREDENTIALER ?? Date of Service: 04/12/24 ?? Procedure(s): XR chest 2V ?? Accession Number(s): [id number] ? cc: Pebbles Rooney CNP; Name,Ananda CRANDALL ? CLINICAL HISTORY: SOB ? 2 view chest x-ray ? Comparison: CR - XR CHEST - 03/29/24 11:18 EST ? Findings: ?? Small calcified granuloma within the left lower lung. No consolidation or ?? pleural effusion. ?? Normal size heart. ?? No acute fracture. ? IMPRESSION: ?? 1. No acute findings. ? This document has been electronically signed by: Kim Acuna MD on ?? 04/12/2024 15:17:02 ? Dictated By: ?Kim Acuna MD ? Signed By: ?<Electronically signed by Kim Acuna MD in OV> ? 04/12/241517 ? DD/ ? TD/TT: 04/12/24 1517 ? [employer]: ? Procedure Note Donotuseinterpreter, Image - 04/12/[address] [address] XRay Report Signed Patient: Hubert Cruz MMR#: [id number] : 1965Acct:[id number] Age/Sex: 59 / MADM Date: 04/12/24 Loc: HO.ED Attending Dr: Ordering Physician: Pebbles Rooney CNP Date of Service: 04/12/24 Procedure(s): XR chest 2V Accession Number(s): [id number] cc: Pebbles Rooney CNP; Name,Ananda CRANDALL CLINICAL HISTORY: SOB 2 view chest x-ray Comparison: CR - XR CHEST 1V - 03/29/24 11:18 EST Findings: Small calcified granuloma within the left lower lung. No consolidation or pleural effusion. Normal size heart. No acute fracture. IMPRESSION: 1. No acute findings. This document has been electronically signed by: Kim Acuna MD on 04/12/2024 15:17:02 Dictated By: Kim Acuna MD Signed By: <Electronically signed by Kim Acuna MD in OV> 04/12/248 DD/ 1517 TD/TT: 04/12/24 151 [employer]: us [facility] External Provider IMG XR PROCEDURES Edited Result - Final * SARS-CoV-2 RNA, Influenza A/B, and RSV RNA, Ql NAAT (04/12/2024 2:06 PM EST) Influenza A PCR NEGATIVE Negative [facility] Influenza B PCR NEGATIVE Negative [facility] Resp Syncy Virus RNA Qual PCR NEGATIVE Negative [facility] SARS COV2 PCR NEGATIVE Negative [facility] Comment:All test results mus t [...] use by authorized laboratories.Testing performed on the [employer] GeneXpert utilizingreal-time RT-PCR.All SARS CoV2 and positive influenza A/B results arereported to [facility]. 04/12/2024 2:06 PM EST 04/12/2024 2:09 PM EST Generic External Data Provider LAB MICROBIOLOGY - GENERAL ORDERABLES Final Result Performing Organization Address [facility]/ZIP Co de Phone Number [facility] [address] [place] [phone] * High Sensitivity Troponin I (04/12/2024 2:06 PM EST) [facility] TROPONIN I HIGH SENSITIVITY 6.3 <3.5 - 35.0 ng/L [facility] Comment:The [place] high sens itivity Troponin-I results should beused in conjunction with other diagnostic information suchas ECG, clinical observations and information, and patientsymptoms to aid in the diagnosis of PA. 04/12/2024 2:06 PM EST 04/12/2024 2:09 PM EST us Generic External Data Provider LAB BLOOD ORDERAB LES Final Result Performing Organization Address [facility] Co de Phone Number [facility] [address] [place] [phone] * B Type Natriuretic Peptide (BNP) (04/12/2024 2:06 PM EST) [facility] B Type Natriuretic Peptide 11 <100 pg/mL [facility] Comment:For those patients w ho are being treated with Natrecor(nesiritide, recombinant BNP), BNP testing should beperformed at least two hours post treatment in order toensure that only endogenous levels of BNP are detected. 04/12/2024 2:06 PM EST 04/12/2024 2:09 PM EST Generic External Data Provider LAB BLOOD ORDERAB LES Final Result Performing Organization Address [facility]/ZIP Co de Phone Number [facility] [address] [place] [phone] * Magnesium (04/12/2024 2:06 PM EST) [facility] Magnesium 1.9 1.6 - 2.6 mg/dL [facility] 04/12/2024 2:06 PM EST 04/12/2024 2:09 PM EST [id number] External Data Provider LAB BLOOD ORDERAB LES Final Result Performing Organization Address [facility] de Phone Number [facility] [address] [place] [phone] * (ABNORMAL) Comprehensive Metabolic Panel (04/12/2024 2:06 PM EST) Pathologist [facility] Sodium 141 135 - 145 mmol/L [facility] Potassium 4.3 3.3 - 5.1 mmol/L [facility] Chloride 102 96 - 108 mmol/L [facility] Carbon Dioxide 29 22 - 29 mmol/L [facility] Anion Gap 14 12 - 20 [facility] Urea Nitrogen (BUN) 18(H) 9 - 16 mg/dL [facility] Creatinine, Serum 0.95 0.5 - 1.4 mg/dL [facility] Creatinine Clr Calc Pharmacy 64.1 [facility] Comment:eGFR (calculated fro m the MDRD study equation) and eCrCl(calculated from the Cockcroft-Gault equation) are based ondifferent parameters and may not yield comparable results.If eCrCl result is absurd, please check patient'sheight/weight. Estimated Glomerular Filt Rate >60 [facility] Comment:Chronic Kidney Disea se: Estimated GFR < 60 mL/min/1.62y1Rtrkat Kidney Disease: Estimated GFR < 15 mL/min/1.73m2 Glucose 227(H) 60 - 115 mg/dL [facility] Calcium 10.0 8.4 - 10.2 mg/dL [facility] Bilirubin, Total 0.9 0.0 - 1.0 mg/dL [facility] Aspartate Amino Transferase 30 5 - 37 U/L [facility] Alanine Aminotransferase 24 0 - 40 U/L [facility] Total Protein 7.7 6.5 - 8.0 g/dL [facility] Albumin Level 4.7 3.5 - 5.0 g/dL [facility] Alkaline Phosphatase 56 39 - 117 U/L [facility] 04/12/2024 2:06 PM EST 04/12/2024 2:09 PM EST us Generic External Data Provider LAB BLOOD ORDERAB LES Final Result Performing Organization Address City/State/[facility] Co de Phone Number [facility] [address] [place] [phone] * Prothrombin Time-INR (04/12/2024 2:06 PM EST) Prothrombin Time 11.3 10.9 - 12.4 SEC [facility] INTERNATIONAL NORM RATIO 1.0 0.9 - 1.1 [facility] Comment:INTERNATIONAL NORMAL IZED RATIO (INR) REFERENCE RANGES Reference RangeFor patients not on anticoagulant therapy: 0.9 - 1.1INR ranges for oral anticoagulanttherapy:For prevention and treatment of venous thrombosis and pulmonary embolism: 2.0 - 3.0For acute myocardial infarction with aspirin therapy: 2.0 - 3.0For acute myocardial infarction without aspirin therapy: 3.0 - 4.0For patients with mechanical prosthetic heart valves: 2.5 - 3.5 04/12/2024 2:06 PM EST 04/12/2024 2:09 PM EST us Generic External Data Provider LAB BLOOD ORDERAB LES Final Result [facility] [address] [place] [phone] * (ABNORMAL) CBC auto differential (04/12/2024 2:06 PM EST) White Blood Count 10.3 4.8 - 10.8 X10*3/uL [facility] Red Blood Count 4.64 4.60 - 5.80 X10*6/uL [facility] Hemoglobin 13.8(L) 14.0 - 18.0 g/dl [facility] Hematocrit 41.9(L) 42.0 - 52.0 % [facility] Mean Corpuscular Volume 90.3 80.0 - 98.0 fL [facility] Mean Corpuscular Hemoglobin 29.7 27.0 - 33.0 pg [facility] Mean Corpuscular HGB Conc 32.9 31.0 - 36.0 g/dl [facility] Red Cell Distribution Width 13.3 11.0 - 16.0 % [facility] Platelet Count 275 160 - 400 X10*3/uL [facility] Mean Platelet Volume 10.2 9.4 - 12.4 fL [facility] Neutrophils Percent Auto 60.6 45 - 73 % [facility] Imm Gran Pct Auto 0.2 0.0 - 0.4 % [facility] Lymphocytes Percent Auto 18.4(L) 20 - 40 % [facility] Monocytes Percent Auto 8.5 2 - 11 % [facility] Eosinophils Percent Auto 11.1(H) 0 - 4 % [facility] Basophils Percent Auto 1.2 0 - 2 % [facility] NRBC Pct Auto 0.0 0.0 - 0.2 /100WBC [facility] Neutrophils Absolute Auto 6.2 2.0 - 8.3 x10*3/uL [facility] Imm Gran Abs Auto 0.02 0.00 - 0.03 X10*3/uL [facility] Lymphocytes Absolute Auto 1.9 1.2 - 4.9 X10*3/uL [facility] Monocytes Absolute Auto 0.9 0.1 - 1.2 X10*3/uL [facility] Eosinophils Absolute Auto 1.1(H) 0.0 - 0.4 X10*3/uL [facility] Basophils Absolute Auto 0.1 0.0 - 0.2 X10*3/uL [facility] NRBC Abs Auto 0.000 0.0 - 0.012 X10*3/uL [facility] 04/12/2024 2:06 PM EST 04/12/2024 2:09 PM EST us Generic External Data Provider LAB BLOOD ORDERAB LES Final Result Performing Organization Address City/State/[facility] Co de Phone Number [facility] [address] [place] [phone] documented in this encounter Visit Diagnoses Not on filedocumented in this encounter Additional Health Concerns Assessment Noted Time PHQ-9 Depression Total Score: 10 024 9:15 AM EDT documented as of this encounter Care Teams Tour Director Relationship Specialty Start Date End Date Name, MD Ananda [address] [place] [address] PCP - General Family Medicine 06/01/15 documented as of this encounter
--- OUTSIDE RECORDS SUMMARY | 2024-05-08 14:40 | XMS_ITS | Clinical Summary ---
Author Organization [employer] Address [address] [place] [address] Care Team Providers Care Fire Control System Installer Name Role Phone Name, Ananda CRANDALL Primary Care Provider [phone] Allergies No known active allergies Medications docusate sodium (Colace) 100 MG capsule Take 1 capsule by mouth at bed time. 021 Active glucose blood (RaisedDigitalTouch Verio) test strip every 8 (eight) hours. [...] (CMS/HCC) 1 each 2 times daily. Call [facility] if consistently < 95% 1 each 023 Active Alcohol Swabs (Alcohol Prep) 70 % pads USE FOUR TIMES DAILY DIRECTED 023 Active clonazePAM (KlonoPIN) 1 MG tablet Take 1 mg by mouth 2 times daily. 023 Active Lancets (RaisedDigitalTouch Delica Plus [id number]) [facility] [place]OD [place] THREE TIMES DAILY 023 Active naloxone (Narcan) 4 mg/0.1 mL nasal spray Administer 1 spray (4 mg) into affected nostril(s) if needed for opioid reversal. 2 each 04/12/2 023 Active clonazePAM (KlonoPIN) 2 MG tablet Take 1 tablet by mouth at bedtime. Active venlafaxine XR (Effexor XR) 150 MG 24 hr capsule Take 1 capsule by mouth in the morning. Take with 75 mg capsule Active venlafaxine XR (Effexor XR) 75 MG 24 hr capsule Take 1 capsule by mouth in the morning. Take with 150 mc capsule Active aspirin (Aspirin Low Dose) 81 MG EC tabletIndicatio ns:Pain of left leg TAKE 1 TABLET BY MOUTH DAILY IN THE MORNING 90 tablet Active NovoLOG FLEXPEN 100 UNIT/ML penIndications: Diabetes mellitus type 2 in nonobese (CMS/HCC) INJECT SUBCUTANEOUSLY THREE TIMES DAILY PER SLIDING SCALE: BLOOD SUGAR < 200: DO NOT USE, 201-250 = 2 UNITS, 251-300 = 4U, 301-350 = 8U, > 351 = 10U 15 mL 4 Active busPIRone (Buspar) 15 MG tablet Take 15 mg by mouth 2 times daily. 024 Active Continuous Glucose Sensor (FreeStyle Kasey 2 Sensor) [facility] [place] DIRECTED TO TEST BLOOD SUGAR 8 TIMES PER DAY 2 each Active Continuous Glucose Agency Cashier (FreeStyle Kasey 2 [place]) device Scan sensor every 8 hours 1 [...] day at the same time. 30 patch Active Tresiba FlexTouch 100 UNIT/ML injection INJECT 8 UNITS SUBCUTANEOUSLY EVERY DAY Active montelukast (Singulair) 10 MG tabletIndicatio ns:Seasonal allergic rhinitis, unspecified trigger TAKE 1 TABLET BY MOUTH EVERY DAY AT BEDTIME 90 tablet 1 Active Pentips 32G X 4 MM miscIndications :Type 2 diabetes mellitus without complication, unspecified whether long term care phlebotomist insulin use (CMS/HCC) USE DIRECTED FOUR TIMES DAILY 100 each 5 Active glucose blood (FreeStyle Precision Isak Test) test stripIndication s:Type 2 diabetes mellitus with hyperglycemia, with long-term current use of insulin ([facility]) 1 each by Other route 3 times daily. 100 each 3 Active albuterol (2.5 MG/3ML) 0.083% nebulizer solution Take 3 mL (2.5 mg) by nebulization every 6 (six) hours if needed for wheezing. 75 mL 11 024 2024 Active atorvastatin (Lipitor) 40 MG tabletIndicatio ns:Type 2 diabetes mellitus with hyperglycemia, with long-term current use of insulin ([facility] [place]) TAKE 1 TABLET BY MOUTH EVERY DAY DIRECTED 90 tablet Active Acetaminophen Extra Strength 500 MG tabletIndicatio ns:Cough in adult patient Take 1 tablet (500 mg) by mouth 3 times daily. 90 tablet 2 Active glucose 4 g chewable tablet CHEW 4 TABLETS BY MOUTH EVERY 15 MINUTES NEEDED FOR LOW BLOOD SUGAR UNTIL SYMPTOMS RESOLVED OR LOW BLOOD SUGAR IS RESOLVED Active Fluticasone Furoate-Vilante rol 100-25 MCG/ACT aerosol powder Inhale 1 puff Once per day. Same time every day 60 each 3 025 2024 Active Umeclidinium [place] (Incruse Ellipta) 62.5 MCG/ACT aerosol powderIndicatio ns:Chronic obstructive pulmonary disease, unspecified COPD type ([facility]) Inhale 1 Act (62.5 mcg) Once per day. 30 each 11 025 2025 Active albuterol (Ventolin HFA) 108 (90 Base) MCG/ACT inhalerIndicati ons:Chronic obstructive pulmonary disease, unspecified COPD type ([facility]) INHALE 2 PUFFS BY MOUTH EVERY 4 TO 6 HOURS NEEDED 18 g 5 Active azithromycin (Zithromax) 500 MG tablet Take 1 tablet (500 mg) by mouth every 3 (three) days. 10 tablet 025 2024 Active senna (Senokot) 8.6 MG tabletIndicatio ns:Constipation , unspecified constipation type TAKE 2 TABLETS BY MOUTH EVERY DAY NEEDED FOR CONSTIPATION 60 tablet 5 025 Active Suboxone 8-2 MG SL filmIndications :Uncomplicated opioid dependence (CMS/HCC) Place 3 Film under the tongue Once per day for 28 days. 84 Film 025 2024 Active budesonide (Pulmicort) 1 MG/2ML nebulizer solutionIndicat ions:Chronic obstructive pulmonary disease, unspecified COPD type (CMS/HCC) INHALE 1 AMPULE USING A NEBULIZER ONCE DAILY. RINSE MOUTH AFTER USING. 60 mL 3 023 2024 Discontinued glucose (Glutose 15) 40 % gel oral gelIndications: Type 2 diabetes mellitus without complication, with long-term current use of insulin (CMS/HCC) TAKE 15 GRAMS BY MOUTH NEEDED FOR LOW BLOOD SUGAR 37.5 g 1 023 2024 Discontinued(M ed list cleanup (will not trigger notification to Pharmacy)) senna (Senokot) 8.6 MG tabletIndicatio ns:Constipation , unspecified constipation type TAKE 2 TABLETS BY MOUTH EVERY DAY NEEDED FOR CONSTIPATION 60 tablet 5 024 2024 Discontinued albuterol (Ventolin HFA) 108 (90 Base) MCG/ACT inhalerIndicati ons:Chronic obstructive pulmonary disease, unspecified COPD type (CMS/HCC) INHALE 2 PUFFS BY MOUTH EVERY 4 TO 6 HOURS NEEDED 18 g 5 024 2024 Discontinued(R eorder (will not trigger notification to Pharmacy)) Fluticasone-Bowen meterol 100-50 MCG/ACT aerosol powder INHALE 1 PUFF BY MOUTH TWICE DAILY 60 each 2 024 2024 Discontinued(M ed list cleanup (will not trigger notification to Pharmacy)) Acetaminophen Extra Strength 500 MG tabletIndicatio ns:Papillary renal cell carcinoma (CMS/HCC) TAKE 1 TABLET BY MOUTH THREE TIMES DAILY 90 tablet 2 025 2024 Discontinued(R eorder (will not trigger notification to Pharmacy)) Incruse Ellipta 62.5 MCG/ACT aerosol powderIndicatio ns:Chronic obstructive pulmonary disease, unspecified COPD type (CMS/HCC) INHALE 1 PUFF BY MOUTH EVERY DAY AT THE SAME TIME RINSE MOUTH AFTER USING 30 each 3 025 2024 Discontinued(R eorder (will not trigger notification to Pharmacy)) Suboxone 8-2 MG SL filmIndications :Uncomplicated opioid dependence (CMS/HCC) Place 3 Film under the tongue Once per day for 28 days. 84 Film 025 2024 Discontinued(R eorder (will not trigger notification to Pharmacy)) predniSONE (Deltasone) 20 MG tabletIndicatio ns:COPD with acute exacerbation (CMS/HCC) Take 2 tablets (40 mg) by mouth Once per day for 5 days. 10 tablet 025 2024 Fluticasone Furoate-Vilante rol 100-25 MCG/ACT aerosol powder Inhale 1 puff 1 (one) time each day. Same time every day 025 2024 Discontinued(R eorder (will not trigger [...] 10/01/2022 07/24/2023 Disorder of abdomen 02/01/2022 07/24/19 24 Abdominal wall bulge 02/01/2022 024 Rib pain 08/01/2017 07/24/2023 Rib lesion 09/21/2016 08/29/2022 Wheezing 08/08/2016 08/29/2022 Encounters Date Type Department Care Team Description 05/06/2024 Refill [facility] [address] [place] [phone] Sonali Stubbs, RN Uncomplicated opioid dependence ([facility]/HCC) 05/06/[address] [phone] NameAnanda MD No Show (Patient no show for sick on site ) 05/06/2024 Telephone [facility] [address] [place] [phone] Ananda Spain MD No Show 05/06/[address] [address] Ananda Spain MD 04/30/2024 Telephone [facility] [address] [place] [address] NameAnanda MD chartprep 04/23/2024 Telephone [facility] [address] [place] [phone] Ananda Spain MD 04/23/2024 Refill [facility] [address] [place] [phone] Ananda Spain MD Constipation, unspecified constipation type 04/16/2024 10:00 AM EST Office Visit [address] [address] Ananda Spain MD Chronic obstructive pulmonary disease, unspecified COPD type ([facility]) (Primary Dx); COPD exacerbation ([facility]); Hypoxia; Non-cardiac chest pain; Type 2 diabetes mellitus with hyperglycemia, with long-term current use of insulin ([facility]/HCC) 04/16/2024 Travel 04/15/2024 9:30 AM EST Clinical Support [facility] [address] [place] [phone] Sonali Stubbs, COREY Uncomplicated opioid dependence ([facility]/HCC) (Primary Dx) 04/15/2024 Travel 04/14/[address] [address] Gerda Gutierrez MA chartprep 04/14/2024 Orders Only GENERIC EXTERNAL DATA DEPARTMENT Provider, Generic External Data 04/13/2024 11:00 AM EST Office Visit [facility] [address] [place] [address] Breanna Das NP Cough in adult patient (Primary Dx); COPD with acute exacerbation ([facility]) 04/12/2024 Orders Only GENERIC EXTERNAL DATA DEPARTMENT Provider, Generic External Data 04/10/2024 Telephone [facility] [address] [place] [phone] Kim Montez, COREY 2024 Refill [facility] [address] [place] [phone] Sonali Stubbs RN Uncomplicated opioid dependence ([facility]) 04/01/2024 Telephone [facility] [address] [place] [phone] Torrie Balderrama RN 03/29/2024 Orders Only GENERIC EXTERNAL DATA DEPARTMENT Provider, Generic External Data 03/21/2024 Refill [facility] [address] [place] [phone] Ananda Spain MD Chronic obstructive pulmonary disease, unspecified COPD type ([facility]) 03/18/2024 9:00 AM EST Clinical Support [facility] [address] [place] [phone] Sonali Stubbs RN Uncomplicated opioid dependence ([facility]) (Primary Dx); Tobacco dependence 03/18/2024 Travel 03/16/2024 Refill [facility] [address] [place] [phone] Ananda Spain MD Type 2 diabetes mellitus with hyperglycemia, with long-term current use of insulin ([facility]) 03/11/2024 Refill [facility] [address] [place] [phone] Sonali Stubbs, COREY Uncomplicated opioid dependence ([facility]) 03/11/2024 Telephone [facility] [address] [place] [phone] Ananda Spain MD Durable Medical Equipment 03/08/2024 Refill [facility] [address] [place] [phone] Ananda Spain MD Chronic obstructive pulmonary disease, unspecified COPD type ([facility]/HCC) 03/05/2024 9:45 AM EST Office Visit [facility] [address] [place] [address] Ryan NatalieMADIE Type 2 diabetes mellitus without ophthalmic manifestations ([facility]) (Primary Dx); Other specified disorders of choroid; Retinal scar of left eye; Regular astigmatism, bilateral; Reduced visual acuity 03/05/2024 Refill [facility] [address] [place] [address] Ananda Spain MD Papillary renal cell carcinoma ([facility]) 03/05/2024 Travel 02/28/2024 11:00 AM EST Office Visit [facility] [address] [place] [address] Ananda Spain MD Type 2 diabetes mellitus with hyperglycemia, with long-term current use of insulin ([facility]) (Primary Dx); Chronic obstructive pulmonary disease, unspecified COPD type ([facility]); Healthcare maintenance 02/28/2024 Telephone [facility] [address] [place] [address] Ananda Spain MD Durable Medical Equipment (wipes) 02/28/2024 Travel 02/27/2024 Travel 02/25/2024 Telephone [facility] [address] [place] [address] Crystal Stevens MA Chart Prep 02/19/2024 9:30 AM EST Office Visit [facility] [address] [place] [address] Latrice Ibrahim MD Uncomplicated opioid dependence ([facility]) (Primary Dx) 02/19/2024 Travel 02/19/2024 Refill [facility] [address] [place] [address] Ananda Spain MD 02/18/2024 Orders Only GENERIC EXTERNAL DATA DEPARTMENT Provider, Generic External Data 02/12/2024 Refill [facility] [address] [place] [address] Sonali Stubbs, COREY Uncomplicated opioid dependence ([facility]) from Last 3 Months Immunizations Name Administration Dates Next Due Hep A, Adult 05/11/2009 Influenza injectable quadriv alent preservative free 01/21/2023,01/02/2022,02/10/2021,03/07,01/13/2019,01/11/2018 Influenza, Split (incl. aba fied surface antigen) 12/24/2012,11/06/2011 Influenza, seasonal, injecta ble, preservative free 11/20/2023 Cequint SARS-CoV-2 Vaccination 05/18/2020 Pfizer Covid-19 Vaccine 12+ [...] 3.2 oz) 04/16/2024 10:12 AM EST Height 167.6 cm (5' 6 ) 02/28/2024 10:43 AM EST Body Mass Index 19.56 02/28/2024 10:43 AM EST Plan of Treatment Upcoming Encounters Date Type Department Care Team (Late st Contact Info) Description 05/13/2024 9:30 AM EDT Office Visit [facility] [address] [place] [phone] Latrice Ibrahim MD [address] [place] [address] 06/01/2024 9:00 AM EDT Medication Management [facility] [address] [place] [address] Geeta Dove, PharmD [address] [place] [address] 06/04/2024 9:45 AM EDT Office Visit [facility] [address] [place] [address] Natalie Davis, OD [address] [place] [address] 06/10/2024 9:30 AM EDT Clinical Support [facility] [address] [place] [phone] Sonali Stubbs, COREY [address] [place] [address] 07/15/2024 10:45 AM EDT Office Visit [facility] [address] [place] [address] Name, MD Ananda [address] [place] [address] Health Maintenance Due Date Last Done Comments [...] exists Lipid Panel 05/13/2024 05/14/2023, 02/01, 05/09/2021 Depression Screening 07/09/2024 07/10/2023, 07/10/19 24 SDOH Screening 07/09/2024 07/10/2023 Diabetes: Hemoglobin A1C 07/14/2024 025, 02/28/2024, 11/20/2023, Additional history exists Diabetes: Foot Exam 07/23/2024 07/24/2023, 07/24/2023, 07/24/2023, [...] 03/29/2023, 024 Influenza Vaccine Completed 03/30/2024, , 11/20/2023, Additional history exists HIB Vaccines Aged Out [...] hyperglycemia, with long-term current use of insulin ([facility]) POCT GLUCOSE Routine 04/16/2024 10:21 AM EST Type 2 diabetes mellitus with hyperglycemia, with long-term current use of insulin ([facility]) POCT FARA-14 URINE DRUG SCREEN Routine 04/15/2024 9:24 AM EST Uncomplicated opioid dependence ([facility]) GLUCOSE, WHOLE BLOOD Routine 04/14/2024 9:22 AM EST POCT INFLUENZA A (ID NOW RAPID MOLECULAR) Routine 04/13/2024 11:34 AM EST Cough in adult patient POCT INFLUENZA B (ID NOW RAPID MOLECULAR) Routine 04/13/2024 11:34 AM EST Cough in adult patient POCT RAPID COVID ANTIGEN Routine 04/13/2024 11:33 AM EST Cough in adult patient XR CHEST 2 VIEWS Routine 04/12/2024 3:17 PM EST HIGH SENSITIVITY TROPONIN I Routine 04/12/2024 2:06 PM EST B TYPE NATRIURETIC PEPTIDE (BNP) Routine 04/12/2024 2:06 PM EST MAGNESIUM Routine 04/12/2024 2:06 PM EST COMPREHENSIVE METABOLIC PANEL Routine 04/12/2024 2:06 PM EST PROTHROMBIN TIME-INR Routine 04/12/2024 2:06 PM EST CBC WITH AUTO DIFFERENTIAL Routine 04/12/2024 2:06 PM EST SARS COV2/INFLUENZA A/B AND RSV RNA QL NAAT Routine 04/12/2024 2:06 PM EST XR CHEST 1 VIEW Routine 03/29/2024 12:43 PM EST BASIC METABOLIC PANEL Routine 03/29/2024 11:41 AM EST HEPATIC FUNCTION PANEL Routine 11:41 AM EST APTT Routine 03/29/2024 11:40 [...] WHOLE BLOOD Routine 02/18/2024 1:10 PM EST LIPID PANEL, STANDARD Routine 05/14/2023 8:29 AM EDT ALBUMIN, RANDOM URINE W/CREATININE Routine 05/14/2023 8:16 AM EDT HEPATITIS C AB W/REFL TO HCV RNA, QN, PCR Routine 03/29/2023 9:12 AM EST HIV 1/2 ANTIGEN/ANTIBODY, FOURTH GENERATION W/RFL Routine 03/29/2023 9:12 AM EST HM COLONOSCOPY Routine 08/16/2015 1:52 PM EDT from Last 3 Months or Most Recently Relevant to Health Maintenance Results * (ABNORMAL) POCT HGB A1C (04/16/2024 10:24 AM EST) Only the most recent of2 resultswithin the time period is included. Hemoglobin A1C 8.8(A) 4.0 - 6.0 % QC Media Lot # [id number] Lot# Expiration Date Blood 04/16/2024 10:2 4 AM EST us Ananda Spain MD POINT OF CARE TEST ENTER/EDIT OR DERABLES Final Result * (ABNORMAL) POCT Glucose (04/16/2024 10:21 AM EST) Only the most recent of2 resultswithin the time period is included. Pathologist [facility] Glucose Blood, POC 229(A) 60 - 200 mg/dL QC Media Lot # [id number] Lot# Expiration Date Blood Capillary blood specimen / Unknown 04/16/2024 10:21 AM EST us Ananda Spain MD POINT OF CARE TEST ENTER/EDIT OR DERABLES Final Result * POCT FARA-14 Urine Drug Screen (04/15/2024 9:24 AM EST) Only the most recent of3 resultswithin the time period is included. Pathologist [facility] THC Negative Cocaine Screen, Urine Negative Opiate [...] procedure / Unknown 04/15/2024 9:24 AM EST us Latrice Ibrahim MD POINT OF CARE TEST ENTER/EDIT OR DERABLES Final Result * (ABNORMAL) Glucose, Whole Blood (04/14/2024 9:22 AM EST) Only the most recent of2 resultswithin the time period is included. Pathologist [facility] Glucose, Whole Blood 154(H) 60 - 115 mg/dL [facility] Comment:METER #: [id number] 5Testing performed in the Endocrinology Department [address] , [address], [facility]. 04/14/2024 9:22 AM EST 04/14/2024 9:26 AM EST Generic External Data Provider LAB BLOOD ORDERAB LES Final Result Performing Organization Address [facility]/ZIP Co de Phone Number [facility] [address] [place] [phone] * Influenza B (ID NOW Rapid Molecular) (04/13/2024 11:34 AM EST) [facility] Influenza B Negative Negative, Indeterminate [facility] Swab 04/13/2024 11:3 4 AM EST Breanna Das AGRONOMY ADVISOR POINT OF CARE TEST ENTER/EDIT O RDERABLES Final Result Performing Organization Address [facility] Co de Phone Number [facility] [address] [place] [phone] * Influenza A (ID NOW Rapid Molecular) (04/13/2024 11:34 AM EST) [facility] Influenza A Negative Negative, Indeterminate [facility] Swab 04/13/2024 11:3 4 AM EST Breanna Appram AGRONOMY ADVISOR POINT OF CARE TEST ENTER/EDIT O RDERABLES Final Result Performing Organization Address [facility] Co de Phone Number [facility] [address] [place] [phone] * POCT Rapid COVID Ag (04/13/2024 11:33 AM EST) [facility] Rapid COVID Ag Negative Swab 04/13/2024 11:3 3 AM EST us Breanna Das AGRONOMY ADVISOR POINT OF CARE TEST ENTER/EDIT O RDERABLES Final Result * XR Chest 2 Views (04/12/2024 3:17 PM EST) Anatomical Region Laterality Modality Chest Radiographic Altagracia ging 04/12/2024 3:1 7 PM EST Narrative 04/12/2024 3:18 PM EST ? [facility] ?[address] ?[place] [address] ?XRay Report ? Signed ? Patient: Hubert Cruz ?MR#: ?? [id number] ? : 1965 ?Acct:[id number] ? Age/Sex: 59 / M ?ADM Date: 04/12/24 ? Loc: HO.ED ? Attending Dr: ? Ordering Physician: Pebbles Rooney CNP ?? Date of Service: 04/12/24 ?? Procedure(s): XR chest 2V ?? Accession Number(s): [id number] ? cc: Pebbles Rooney CNP; Name,Ananda CRANDALL ? CLINICAL HISTORY: SOB ? 2 view chest x-ray ? Comparison: CR - XR CHEST 1V - 03/29/24 11:18 EST ? Findings: ?? [...] by Kim Acuna MD in OV> ? 04/12/24 1518 ? DD/ 16 ? TD/TT: 04/12/241516 ? Bail Bonding Agent: ? Procedure Note Alex Villanueva - 04/12/[address] [address] XRay Report Signed Patient: Hubert Cruz MMR#: [id number] : 1965Acct:[id number] Age/Sex: 59 / MADM Date: 04/12/24 Loc: HO.ED Attending Dr: Ordering Physician: Pebbles Rooney CNP Date of Service: 04/12/24 Procedure(s): XR chest 2V Accession Number(s): [id number] cc: Pebbles Rooney CNP; Name,Ananda CRANDALL CLINICAL [...] signed by Kim Acuna MD in OV> 04/12/24 1518 DD/ 16 TD/TT: 04/12/24 151 Bail Bonding Agent: [facility] External Provider IMG XR PROCEDURES Edited Result - Final * High Sensitivity Troponin I (04/12/2024 2:06 PM EST) Only the most recent of2 resultswithin the time period is included. [facility] TROPONIN I HIGH SENSITIVITY 6.3 <3.5 - 35.0 ng/L [facility] Comment:The [place] high sens itivity Troponin-I results should beused in conjunction with other diagnostic information suchas ECG, clinical observations and information, and patientsymptoms to aid in the diagnosis of [place]. 04/12/2024 2:06 PM EST 04/12/2024 2:09 PM EST Generic External Data Provider LAB BLOOD ORDERAB LES Final Result [facility] [address] [place] [phone] * SARS-CoV-2 RNA, Influenza A/B, and RSV RNA, Ql NAAT (04/12/2024 2:06 PM EST) Only the most recent of2 resultswithin the time period is included. [facility] Influenza A PCR NEGATIVE Negative [facility] Influenza B PCR NEGATIVE Negative [facility] Resp Syncy Virus RNA Qual PCR NEGATIVE Negative [facility] SARS COV2 PCR NEGATIVE Negative [facility] Comment:All test results mus t [...] use by authorized laboratories.Testing performed on the [employer] Search[employer]pert utilizingreal-time RT-PCR.All SARS CoV2 and positive influenza A/B results arereported to [facility]. 04/12/2024 2:06 PM EST 04/12/2024 2:09 PM EST Generic External Data Provider LAB MICROBIOLOGY - GENERAL ORDERABLES Final Result [facility] [address] [place] [phone] * (ABNORMAL) CBC auto differential (04/12/2024 2:06 PM EST) Only the most recent of2 resultswithin the time period is included. Pathologist [facility] White Blood Count 10.3 4.8 - 10.8 X10*3/uL [facility] Red Blood Count 4.64 4.60 - 5.80 X10*6/uL [facility] Hemoglobin 13.8(L) 14.0 - 18.0 g/dl [facility] Hematocrit 41.9(L) 42.0 - 52.0 % [facility] Mean Corpuscular Volume 90.3 80.0 - 98.0 fL [facility] Mean Corpuscular Hemoglobin 29.7 27.0 - 33.0 pg [facility] Mean Corpuscular HGB Conc 32.9 31.0 - 36.0 g/dl [facility] Red Cell Distribution Width 13.3 11.0 - 16.0 % [facility] Platelet Count 275 160 - 400 X10*3/uL [facility] Mean Platelet Volume 10.2 9.4 - 12.4 fL [facility] Neutrophils Percent Auto 60.6 45 - 73 % [facility] Imm Gran Pct Auto 0.2 0.0 - 0.4 % [facility] Lymphocytes Percent Auto 18.4(L) 20 - 40 % [facility] Monocytes Percent Auto 8.5 2 - 11 % [facility] Eosinophils Percent Auto 11.1(H) 0 - 4 % [facility] Basophils Percent Auto 1.2 0 - 2 % [facility] NRBC Pct Auto 0.0 0.0 - 0.2 /100WBC [facility] Neutrophils Absolute Auto 6.2 2.0 - 8.3 x10*3/uL [facility] Imm Gran Abs Auto 0.02 0.00 - 0.03 X10*3/uL [facility] Lymphocytes Absolute Auto 1.9 1.2 - 4.9 X10*3/uL [facility] Monocytes Absolute Auto 0.9 0.1 - 1.2 X10*3/uL [facility] Eosinophils Absolute Auto 1.1(H) 0.0 - 0.4 X10*3/uL [facility] Basophils Absolute Auto 0.1 0.0 - 0.2 X10*3/uL [facility] NRBC Abs Auto 0.000 0.0 - 0.012 X10*3/uL [facility] 04/12/2024 2:06 PM EST 04/12/2024 2:09 PM EST us Generic External Data Provider LAB BLOOD ORDERAB LES Final Result [facility] [address] [place] [address] [phone] * Prothrombin Time-INR (04/12/2024 2:06 PM EST) Only the most recent of2 resultswithin the time period is included. Pathologist [facility] Prothrombin Time 11.3 10.9 - 12.4 SEC [facility] INTERNATIONAL NORM RATIO 1.0 0.9 - 1.1 [facility] Comment:INTERNATIONAL NORMAL IZED RATIO (INR) [...] Final Result Performing Organization Address [facility] Co de Phone Number [facility] [address] [place] [phone] * B Type Natriuretic Peptide (BNP) (04/12/2024 2:06 PM EST) [facility] B Type Natriuretic Peptide 11 <100 pg/mL [facility] Comment:For those patients w ho are being treated with Natrecor(nesiritide, recombinant BNP), BNP testing should beperformed at least two hours post treatment in order toensure that only endogenous levels of BNP are detected. 04/12/2024 2:06 PM EST 04/12/2024 2:09 PM EST [employer] External Data Provider LAB BLOOD ORDERAB LES Final Result Performing Organization Address [facility] Co de Phone Number [facility] [address] [place] [phone] * Magnesium (04/12/2024 2:06 PM EST) [facility] Magnesium 1.9 1.6 - 2.6 mg/dL [facility] 04/12/2024 2:06 PM EST 04/12/2024 2:09 PM EST us Generic External Data Provider LAB BLOOD ORDERAB LES Final Result [facility] [address] [place] [address] [phone] * (ABNORMAL) Comprehensive Metabolic Panel (04/12/2024 2:06 PM EST) Sodium 141 135 - 145 mmol/L [facility] Potassium 4.3 3.3 - 5.1 mmol/L [facility] Chloride 102 96 - 108 mmol/L [facility] Carbon Dioxide 29 22 - 29 mmol/L [facility] Anion Gap 14 12 - 20 [facility] Urea Nitrogen (BUN) 18(H) 9 - 16 mg/dL [facility] Creatinine, Serum 0.95 0.5 - 1.4 mg/dL [facility] Creatinine Clr Calc Pharmacy 64.1 [facility] Comment:eGFR (calculated fro m the MDRD study equation) and eCrCl(calculated from the Cockcroft-Gault equation) are based ondifferent parameters and may not yield comparable results.If eCrCl result is absurd, please check patient'sheight/weight. Estimated Glomerular Filt Rate >60 [facility] Comment:Chronic Kidney Disea se: Estimated GFR < 60 mL/min/1.57c6Fsmvex Kidney Disease: Estimated GFR < 15 mL/min/1.73m2 Glucose 227(H) 60 - 115 mg/dL [facility] Calcium 10.0 8.4 - 10.2 mg/dL [facility] Bilirubin, Total 0.9 0.0 - 1.0 mg/dL [facility] Aspartate Amino Transferase 30 5 - 37 U/L [facility] Alanine Aminotransferase 24 0 - 40 U/L [facility] Total Protein 7.7 6.5 - 8.0 g/dL [facility] Albumin Level 4.7 3.5 - 5.0 g/dL [facility] Alkaline Phosphatase 56 39 - 117 U/L [facility] 04/12/2024 2:06 PM EST 04/12/2024 2:09 PM EST us Generic External Data Provider LAB BLOOD ORDERAB LES Final Result [facility] [address] [facility] [place] [address] [phone] * XR Chest 1 View (03/29/2024 12:43 PM EST) Anatomical Region Laterality Modality Chest Radiographic Altagracia ging 03/29/2024 12:4 3 PM EST Narrative 03/29/2024 12:44 PM EST ? [facility] ?[address] ?[place] Mazariegos [address] ?XRay Report ? Signed ? Patient: Hubert Cruz ?MR#: ?? [id number] ? : 1965 ?Acct:[id number] ? Age/Sex: 58 / M ?ADM Date: 03/29/24 ? Loc: HO.ED ? Attending Dr: ? Ordering Physician: Tiffanie Ulloa NP ?? Date of Service: 03/29/24 ?? Procedure(s): XR chest 1V ?? Accession Number(s): [id number] ? cc: Ananda Spain MD; Tiffanie Ulloa NP ? CLINICAL HISTORY: cough, shortness of breath ? 1 view chest x-ray ? Comparison: CR/SR - XR CHEST 2V - 12/19/21 14:24 EDT ?? [place] [id number] - 02/26/19 13:51 EST ? Findings: ?? [...] DD/ 1243 ? TD/TT: 03/29/24 1243 ? Bail Bonding Agent: ? Procedure Note Donmustaphater, Image - 03/29/[address] [address] XRay Report Signed Patient: Hubert Cruz MMR#: [id number] : 1965Acct:[id number] Age/Sex: 58 / MADM Date: 03/29/24 Loc: HO.ED Attending Dr: Ordering Physician: Tiffanie Ulloa NP Date of Service: 03/29/24 Procedure(s): XR chest 1V Accession Number(s): [id number] cc: Name,Ananda CRANDALL; Tiffanie Ulloa NP CLINICAL HISTORY: cough, shortness of breath 1 view chest x-ray Comparison: CR/SR - XR CHEST 2V - 12/19/21 14:[address] [place] [id number] - 02/26/19 13:51 EST Findings: Overinflation and [...] 03/29/24 1244 DD/ 1243 TD/TT: 03/29/24 1243 Bail Bonding Agent: [facility] External Provider IMG XR PROCEDURES Edited Result - Final * (ABNORMAL) Hepatic Function Panel (03/29/2024 11:41 AM EST) Bilirubin, Total 1.3(H) 0.0 - 1.0 mg/dL [facility] Bilirubin, Direct 0.4 0.0 - 0.5 mg/dL [facility] Aspartate Amino Transferase 22 5 - 37 U/L [facility] Alanine Aminotransferase 16 0 - 40 U/L [facility] Total Protein 7.8 6.5 - 8.0 g/dL [facility] Albumin Level 4.7 3.5 - 5.0 g/dL [facility] Alkaline Phosphatase 66 39 - 117 U/L [facility] 03/29/2024 11:4 1 AM EST 03/29/2024 11:44 AM EST us Generic External Data Provider LAB BLOOD ORDERAB LES Final Result [facility] [address] [place] [address] [phone] * (ABNORMAL) Basic Metabolic Panel (03/29/2024 11:41 AM EST) Sodium 139 135 - 145 mmol/L [facility] Potassium 4.9 3.3 - 5.1 mmol/L [facility] Chloride 103 96 - 108 mmol/L [facility] Carbon Dioxide 30(H) 22 - 29 mmol/L [facility] Anion Gap 11(L) 12 - 20 [facility] Urea Nitrogen (BUN) 15 9 - 16 mg/dL [facility] Creatinine, Serum 0.96 0.5 - 1.4 mg/dL [facility] Creatinine Clr Calc Pharmacy 65.6 [facility] Comment:eGFR (calculated fro m the MDRD study equation) and eCrCl(calculated from the Cockcroft-Gault equation) are based ondifferent parameters and may not yield comparable results.If eCrCl result is absurd, please check patient'sheight/weight. Estimated Glomerular Filt Rate >60 [facility] Comment:Chronic Kidney Disea se: Estimated GFR < 60 mL/min/1.44z3Qbkqmk Kidney Disease: Estimated GFR < 15 mL/min/1.73m2 Glucose 203(H) 60 - 115 mg/dL [facility] Calcium 9.9 8.4 - 10.2 mg/dL [facility] 03/29/2024 11:4 1 AM EST 03/29/2024 11:44 AM EST Generic External Data Provider LAB BLOOD ORDERAB LES Final Result Performing Organization Address [facility] Co de Phone Number [facility] [address] [place] [phone] * Partial Thromboplastin Time, Activated (APTT) (03/29/2024 11:40 AM EST) Partial Thromboplastin Time 30.0 26.0 - 36.8 SEC [facility] Comment:For information rega rding the monitoring of direct thrombininhibitors, please refer to Pharmacy. 03/29/2024 11:4 0 AM EST 03/29/2024 11:44 AM EST [employer] External Data Provider LAB BLOOD ORDERAB LES Final Result Performing Organization Address [facility] de Phone Number [facility] [address] [place] [phone] * OCT, Retina - OU - Both [...] OPHTH TOMOGRAPHY Edited Result - Final * Lipid Panel, Standard (05/14/2023 8:29 AM EDT) Triglycerides 76 <150 mg/dL [facility] Comment:Desirable Triglyceri de: less than 150 mg/dLBorderline High Triglyceride 150-199 mg/dLHigh Triglyceride: 200-499 mg/dLVery High Triglyceride: greater than or equal to 5OO mg/dL Cholesterol 189 <200 mg/dL [facility] Comment:Desirable Cholestero l: less than 200 mg/dLBorderline High Cholesterol: 200-239 mg/dLHigh Cholesterol: greater than 239 mg/dL LDL Cholesterol Calculated 82 <100 mg/dL [facility] Comment:Desirable LDL: less than 100 mg/dLNear Optimal/Above Optimal LDL: 110- 129 mg/dLBorderline High LDL: 130-159 mg/dLHigh LDL: 160-189 mg/dLVery High LDL: greater than or equal to 190 mg/dL HDL Cholesterol 92 >40 mg/dL [facility] Comment:Desirable HDL: great er than 40 mg/dL Note: This HDL assay may give artificially low results in patients with liver disease. 05/14/2023 8:29 AM EDT 05/14/2023 8:29 AM EDT us Generic External Data Provider LAB BLOOD ORDERAB LES Final Result [facility] [address] [place] [phone] * Albumin, Random Urine W/Creatinine (05/14/2023 8:16 AM EDT) Creatinine, Urine 156.10 mg/dL [facility] Microalbumin Urine 45.0 mg/L [facility] Microalbum Creatinine Ratio Ur 28.8 <30 ug/mg cr [facility] Comment:Albumin/Creatinine R atio Reference Ranges: Normal: < 30 ug/mg creatinine Microalbuminuria: 30 - 300 ug/mg creatinineClinical Albuminuria: > 300 ug/mg creatinine 05/14/2023 8:16 AM EDT 05/14/2023 9:26 AM EDT us Generic External Data Provider LAB URINE ORDERAB LES Final Result Performing Organization Address [facility] Co de Phone Number [facility] [address] [place] [phone] * (ABNORMAL) Hepatitis C Antibody with Reflex to HCV, RNA, Quantitative, Real- Time PCR (03/29/2023 9:12 AM EST) Hepatitis C Antibody Reactive( A) Nonreactive [facility] Comment:Presumptive evidence of antibodies to HCV. 03/29/2023 9:12 AM EST 03/29/2023 11:11 AM EST us Latrice Ibrahim MD LAB BLOOD ORDERABLES Final Resul t Performing Organization Address [facility] Co de Phone Number [facility] [address] [place] [phone] * HIV-1/2 Antigen and Antibodies, Fourth Generation, with Reflexes (03/29/2023 9:12 AM EST) HIV AB/AG Nonreactive Nonreactive [facility] Comment:HIV-1 p24 Ag and/or HIV-1/HIV-2 Ab not detected.A test result that is nonreactive does not exclude thepossibility of exposure to or infection with HIV-1 and/orHIV-2. Nonreactive results in this assay for individualswith prior exposure to HIV-1 and/or HIV-2 may be due toantigen and antibody levels that are below the limit ofdetection of this assay.The [employer] HIV Ag/Ab Combo assay result andsupplemental assay results should be interpreted inconjunction with the patient's clinical presentation,history and other laboratory results. If the results areinconsistent with clinical evidence, additional testing issuggested to confirm the result. 03/29/2023 9:12 AM EST 03/29/2023 11:11 AM EST us Latrice Ibrahim MD LAB BLOOD ORDERABLES Final Resul t [facility] [address] [place] [address] [phone] * Hm Colonoscopy (08/16/2015 1:52 PM EDT) Colonoscopy Normal Normal Narrative Gloria Álvarez - 08/16/2015 1:52 PM EDT Recommended 10 year follow up us Historical Provider HEALTH MAINTENANCE Final Result from Last 3 Months or Most Recently Relevant to Health Maintenance Insurance [facility] - [facility] Care Teams Fire Control System Installer Relationship Specialty Start Date End Date Name, MD Ananda [address] [place] [phone] PCP - General Family Medicine 06/01/15
--- OUTSIDE RECORDS SUMMARY | 2024-05-08 14:40 | XMS_ITS | Encounter Summary ---
Author Organization [employer] Address [address] [place] [address] Care Team Providers Care Bobcat Operator Name Role Phone Name, Ananda CRANDALL Primary Care Provider [phone] Reason for Visit * Reason Onset Date Comments ER Follow-up 09/26/2022 Encounter Details Date Type Department Care Team ([facility] st Contact Info) Description 09/26/2022 Telephone [facility] MEDICINE [address] [place], [place] [phone] Name, MD Ananda [address] [place] [address] ER Follow-up Social History Tobacco Use Types [...] to pt. Through pacific interpreters id - [id number] for below message, pt. Has surgery at [facility] for non - pressure chronic ulcer of [...] in case of any new or worseningsymptoms. [facility] hours are reviewed. * Telephone Encounter - Hawa Morales - 10/01/2022 9:35 AM EDT Tc from pt returning call regarding message below. Please contact pt at [phone] (yakut speaker) * Telephone Encounter - Em Leblanc RN - 09/27/2022 3:29 PM EDT T/C to pt. On [phone] through [employer] id - [id number] for status check and to schedule follow up apt. No answer. LVM to call back on [phone]. * Telephone Encounter - Netta Alvares - 09/26/2022 11:04 AM EDT Tc from pt calling to advise PCP of an ER visit to [facility] on 09/24/22 for surgery on the left leg. Pt advised will forward to team nurse for f/u. Please contact pt at [phone] (Greek) documented in this encounter Plan of Treatment Upcoming Encounters Date Type Department Care Team ([facility] st Contact Info) Description 05/13/2024 9:30 AM EDT Office Visit [facility] MEDICINE [address] [place] [address] Latrice Ibrahim MD [address] [place] [address] 06/01/2024 9:00 AM EDT Medication Management [address] [address] Geeta Dove, PharmD [address] [place] [address] 06/04/2024 9:45 AM EDT Office Visit [facility] OPTOMETRY [address] [place] [address] Natalie Davis, OD [address] [place] [address] 06/10/2024 9:30 AM EDT Clinical Support [address] [address] Sonali Stubbs, RN [address] [place] [address] 07/15/2024 10:45 AM EDT Office Visit [address] [address] Ananda Spain MD [address] [place] [address] documented as of this encounter Visit Diagnoses Not on filedocumented in this encounter Care Teams Bobcat Operator Relationship Specialty Start Date End Date Ananda Spain MD [address] [place] [address] PCP - General Family Medicine 06/01/15 documented as of this encounter
--- OUTSIDE RECORDS SUMMARY | 2024-05-08 14:40 | XMS_ITS | Encounter Summary ---
Author Organization [employer] Address [address] [place] [address] Care Team Providers Care Rolloff Driver Name Role Phone Name, Ananda CRANDALL Primary Care Provider [phone] Reason for Visit * Reason Onset Date Comments Durable Medical Equipment 06/08/2022 Encounter Details Date Type Department Care Team ([facility] st Contact Info) Description 06/08/2022 Telephone [facility] MED[facility]INE [address] [place], [place] [phone] Name, MD Ananda [address] [place] [address] Durable Medical Equipment Social History Tobacco Use [...] states unable to get a hold of sales project coordinator and would like to know if PCP can send script directly to [facility] . Please contact at [phone] * Telephone Encounter - Arleen Ramirez - 06/11/2022 11:28 AM EDT TC to patient and informed him to contact his care management assistant as a script for a recliner was emailed to her previously. Patient understood and agreed with plan. * Telephone Encounter - Darian Joiner - 06/08/2022 4:29 PM EDT Tc from pt requesting a script for a recliner chair to be send to [facility] please contact pt at [phone] documented in this encounter Plan of Treatment Upcoming Encounters Date Type Department Care Team ([facility] st Contact Info) Description 05/13/2024 9:30 AM EDT Office Visit [facility] MEDICINE [address] [place] [address] Latrice Ibrahim MD [address] [place] [address] 06/01/2024 9:00 AM EDT Medication Management [facility] [address] [place] [address] Geeta Dove, PharmD [address] [place] [address] 06/04/2024 9:45 AM EDT Office Visit [facility] OPTOMETRY [address] [place] [address] Natalie Davis OD [address] [place] [address] 06/10/2024 9:30 AM EDT Clinical Support [facility] [address] [place] [address] Sonali Stubbs, RN [address] [place] [address] 07/15/2024 10:45 AM EDT Office Visit [facility] [address] [place] [address] Name, MD Ananda [address] [place] [address] documented as of this encounter Visit Diagnoses Not on filedocumented in this encounter Care Teams Rolloff Driver Relationship Specialty Start Date End Date Name, MD Ananda [address] [place] [address] PCP - General Family Medicine 06/01/15 documented as of this encounter
--- OUTSIDE RECORDS SUMMARY | 2024-05-08 14:40 | XMS_ITS | Encounter Summary ---
Author Organization [employer] Address [address] [place] [address] Care Team Providers Care Business Economist Name Role Phone Name, Ananda CRANDALL Primary Care Provider [phone] Reason for Visit * Reason Onset Date Comments Durable Medical Equipment 09/18/2022 Encounter Details Date Type Department Care Team ([facility] st Contact Info) Description 09/18/2022 Telephone [facility] MEDICINE [address] [place], [place] [phone] Name, MD Ananda [address] [place] [address] Durable Medical Equipment Social History Tobacco Use [...] 09/21/2022 1:49 PM EDT Incoming call from [facility] PT regarding message below. [facility] PT states they have no record of pt ever going to their offices and getting PT. Unsure what next steps should be at this point. * Telephone Encounter - Christy Finn RN - 09/21/2022 1:39 PM EDT TC X1 to [facility] PT [phone] regarding message below. LVM to return call to nurses. * Telephone Encounter - Lauren Walsh - 09/20/2022 3:14 PM EDT Tc from patient returning call back, regarding message below. Patient states he's going to PT in [facility]. [address] [place] [address] [place] [address] Dr. Mcdaniel. * Telephone Encounter - Christy [...] 9:30 AM EDT Office Visit [facility] MEDICINE [address] [place] [address] Latrice Ibrahim MD [address] [place] [address] 06/01/2024 9:00 AM EDT Medication Management [facility] MED[facility] [address] [place] [address] Geeta Dove, LoretoD [address] [place] [address] 06/04/2024 9:45 AM EDT Office Visit [facility] OPTOMETRY [address] [place] [address] TarNatalie elizabeth, OD [address] [place] [address] 06/10/2024 9:30 AM EDT Clinical Support [facility] MEDICINE [address] [place] [address] Sonali Stubbs, RN [address] [place] [address] 07/15/2024 10:45 AM EDT Office Visit [facility] MEDICINE [address] [place] [address] Name, MD Ananda [address] [place] [address] documented as of this encounter Visit Diagnoses Not on filedocumented in this encounter Care Teams Business Economist Relationship Specialty Start Date End Date Name, MD Ananda [address] [place] [address] PCP - General Family Medicine 06/01/15 documented as of this encounter
--- OUTSIDE RECORDS SUMMARY | 2024-05-08 14:40 | XMS_ITS | Encounter Summary ---
Author Organization [employer] Address [address] [place] [address] Care Team Providers Care Flat Hammerer Name Role Phone Name, Ananda CRANDALL Primary Care Provider [phone] Reason for Visit * Reason Comments Med Refill Encounter Details Date Type Department Care Team ([facility] Contact Info) Description 06/07/2022 Refill [facility] [address] [place], [place] [phone] Sebastián Graves MD [address] [place], [place] [phone] Pain of left leg Social History Tobacco [...] Upcoming Encounters Date Type Department Care Team ([facility] Contact Info) Description 05/13/2024 9:30 AM EDT Office Visit [facility] [address] [place] [address] Latrice Ibrahim MD [address] [place] [address] 06/01/2024 9:00 AM EDT Medication Management [facility] [address] [place] [address] Geeta Dove, PharmD [address] [place] [address] 06/04/2024 9:45 AM EDT Office Visit [facility] OPTOMETRY [address] [place] [address] TarNatalie elizabeth, OD [address] [place] [address] 06/10/2024 9:30 AM EDT Clinical Support [facility] [address] [place] [address] Sonali Stubbs, RN [address] [place] [address] 07/15/2024 10:45 AM EDT Office Visit [facility] [address] [place] [address] Name, MD Ananda [address] [place] [address] documented as of this encounter Visit Diagnoses Diagnosis Pain of left leg documented in this encounter Care Teams Flat Hammerer Relationship Specialty Start Date End Date Name, MD Ananda [address] [place] [address] PCP - General Family Medicine 06/01/15 documented as of this encounter
--- OUTSIDE RECORDS SUMMARY | 2024-05-08 14:40 | XMS_ITS | Encounter Summary ---
Author Organization [employer] Address [address] [place] [address] Care Team Providers Care Community Health Nurse Name Role Phone Name, Ananda CRANDALL Primary Care Provider [phone] Reason for Visit * Reason Comments Med Refill Encounter Details Date Type Department Care Team ([facility] st Contact Info) Description 09/19/2023 Refill [facility] [address] [place], [place] [phone] Name, MD Ananda [address] [place] [address] Pain of left leg Social History Tobacco [...] 9:30 AM EDT Office Visit [facility] [address] [place] [address] Latrice Ibrahim MD [address] [place] [address] 06/01/2024 9:00 AM EDT Medication Management [address] [address] Geeta Dove, PharmD [address] [place] [address] 06/04/2024 9:45 AM EDT Office Visit [facility] OPT[facility] [address] [place] [address] Natalie Davis, OD [address] [place] [address] 06/10/2024 9:30 AM EDT Clinical Support [facility] [address] [place] [address] Sonali Stubbs, RN [address] [place] [address] 07/15/2024 10:45 AM EDT Office Visit [address] [address] GrabielAnanda MD [address] [place] [address] documented as of this encounter Visit Diagnoses Diagnosis Pain of left leg documented in this encounter Additional Health Concerns Assessment Noted Time PHQ-9 Depression Total Score: 10 024 9:15 AM EDT documented as of this encounter Care Teams Community Health Nurse Relationship Specialty Start Date End Date Name, MD Ananda [address] [place] [address] PCP - General Family Medicine 06/01/15 documented as of this encounter
== END 2024-05-08 15:08 | disposition home or self-care (01) ==
LOC: HO.HPSW 13:00
PROVIDERS: PCP Internal Medicine Geriatric Medicine; Referring Provider Internal Medicine Geriatric Medicine; Visit Provider Nurse Practitioner Family
DX: J44.9 Chronic obstructive pulmonary disease, unspecified (principal); Z99.81 Dependence on supplemental oxygen; F17.210 Nicotine dependence, cigarettes, uncomplicated; R93.89 Abnormal findings on diagnostic imaging of other specified body structures
CPT/HCPCS: 99204

== ENCOUNTER → 2024-05-08 12:59 | Outpatient (BNVA) | payer OTHER, SELFPAY | PROVIDERS: PCP Internal Medicine Geriatric Medicine; Referring Provider Internal Medicine Geriatric Medicine; Visit Provider Nurse Practitioner Family | DX: J44.9 Chronic obstructive pulmonary disease, unspecified (principal); R93.89 Abnormal findings on diagnostic imaging of other specified body structures; F17.210 Nicotine dependence, cigarettes, uncomplicated; Z99.81 Dependence on supplemental oxygen | CPT/HCPCS: 99202 ==

== ENCOUNTER 2024-05-19 08:41 | Outpatient (AMB) | payer OTHER, SELFPAY ==
--- NOTE | 2024-05-14 13:36 | A.OFFVIS_ITS ---
Vital Signs 05/19/24 08:48 Height 5 ft 6 in Weight 123 lb 7.342 oz BMI 19.9 BP 120/82 Blood Pressure Location Rt brachial Position Sitting Pulse 96 Pulse Source Pulse Oximeter Pulse Oximetry (%) 98 Oxygen Delivery Method Room Air Intake Visit Reasons: DM Intake Note: Patient presents today for a follow-up on Type 2 Diabetes Mellitus: Last Diabetic eye exam was on: 04/04/2024 Last Podiatry exam was on: Patient does not see a Aircraft Refueler Most recent HbA1c: 7.9%, 05/19/2024 Random Glucose- 90 mg/dL, Today Film Reader Required: Yes Film Reader Language: Ground Intelligence Officer Services: Film Reader Present Film Reader Name: JAYSON Thomas/ALLEN JACKSON Information Interpreted: clinical only Accompanied by: Self / Same As Patient Allergies No Known Allergies Allergy (Verified 05/08/24 13:22) HPI Comments Details: Patient is a 59 yo male with diabetes diagnosed in 1988 when he was hospitalized with HHS/DKA who presents for management of diabetes. He was last seen in Endocrine Clinic 04/14/24. Hemoglobin A1c 05/19/24: 7.9% 02/18/2024 8.4% down from previous 9.2. Initially diagnosed as type 2. Is now insulin deficient. He has a history of pancreatitis after being kicked in the abdomen by a horse. C-peptide 0.50 10/2023 CARLOZ <5.0 islet cell antibodies negative History of pancreatitis while on Januvia Diabetes medications: Tresiba 11 units NovoLog 6 units before meals scale goes up to 10 units 10 units if over 200 Freestyle rhett sensor 3 average glucose: 218 14 day continuous glucose sensor report reviewed Glucose Management indicator 8.5 % TIme in ranges: 31 % very high (above 250) 37 % high (181-250) 32 % in range (70-180] 0 % low (69-55) 0 % very low (below 54) Interpretation of CGMS glucose readings persistently 70-80 points higher than target Has neuropathy: Symptoms reported: + numbness, tingling in lower extremities. Denies cramping in lower extremities Hypoglycemia: none recent Reports symptoms of fatigue, shakiness, sweating. Carries glucose gel at all times Denies retinopathy: last eye exam 03/2024 seen by rim fire charger operator [facility] Has nephropathy: 04/12/2024 eGFR>60 microalbumin 45 06/2023 Has HLD on statin 06/2023 LDL 82 BNP 11 Exercise: 1/2 - 1 hour a day. Other specialists: psychiatrist, therapist, nephrology [facility] screen Fibrosis-4 (Fib-4) Index for liver fibrosis (calculated on lab work done: 04/28) 1.29 points Advanced fibrosis excluded Approximate Fibrosis stage Brad 0-1 *Use with caution in patients <35 or >65 years old, as the score has been shown to be less reliable in these patients. Prior Imaging 09/2022 LIVER, GALLBLADDER, AND BILIARY TREE: The liver is normal in size, shape, and attenuation. No focal hepatic lesion. Prominence of the extrahepatic biliary ductal system is stable. No choledocholithiasis or gross pancreatic head lesion.. The gallbladder is unremarkable with no evidence of radiopaque gallstones, gallbladder wall thickening, or obvious pericholecystic inflammatory changes. 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 pylori infection GERD (gastroesophageal reflux disease) Abdominal wall bulge Vitamin D deficiency HLD (hyperlipidemia) HTN (hypertension) T2DM (type 2 diabetes mellitus) Surgical History History of surgery Hx of hernia repair Hx of prior ablation treatment Hx of partial nephrectomy Hx of colonoscopy History of esophagogastroduodenoscopy (EGD) Family History Father Liver cancer Diabetes Alcohol abuse Mother Diabetes Breast cancer Social History (Updated 05/08/24 @ 13:25 by Yarelis Naqvi LPN) Household Members: None Unable to assess alcohol history related to: Unknown Patient Tobacco Use Status: Current everyday Tobacco user Tobacco use type: Cigarette Cigarettes Per Day: 3 Physical Exam Vital Signs: Last Vital Signs Pulse 96 05/19/24 08:48 BP 120/82 05/19/24 08:48 Pulse Ox 98 05/19/24 08:48 Oxygen Delivery Method Room Air 05/19/24 08:48 BMI result Body Mass Index 19.9 Const Other: Absence of Cushingoid features. Absence of acromegalic features. Neck exam reveals nl size thyroid about 15 gms. No thyroid nodules palpable. No carotid bruits present. Lungs CTA. Heart S1 S2, Reg R/R. No M/R G. Skin exam reveals absence of vitiligo or acanthosis nigricans. No edema Visual exam of foot performed. No ulcerations or open lesions. No inter digit maceration or fissuring. No onychomycosis, no callouses. Sensation intact to monofilament exam. Vibratory sensation is normal with 128 Hz tuning fork. Results AMB Hemoglobin A1c AMB Hemoglobin A1c 7.9 % Last Edit by JAYSON Thomas on 05/19/24 09:14 Results Reviewed Results Reviewed: Laboratory Last Values Glucose (Clinic) 90 mg/dL (60-115) 05/19/24 08:54 Assessment & Plan Assessment & Plan (1) Type 1.5 diabetes, managed as type 1: Code(s): E13.9 - Other specified diabetes mellitus without complications Category: Medical Plan: see below Plan This is a 58-year-old male with history of type 2 diabetes with a history of pancreatitis a now with lower C-peptide being treated with basal- bolus insulin with fair glycemic control and no known microvascular or macrovascular complications. A1c is gradually improving in his now at 7.9%. New dosing: Tresiba 14 units NovoLog 80-150 6 units 151-200 8 units 201-250 10 units 251-300 12 units over 300 14 units I will see the patient back in 2 weeks to review his readings The patient had an opportunity to ask questions regarding treatment plan. The patient expressed understanding and agreement with the above treatment plan. The patient is aware they should contact our office by phone for worsening glucose readings or for any low blood sugars which may warrant a change in diabetes medication. Compliance is encouraged with medications and any followup testing/consults which may have been ordered. Patient Instructions: The patient was counseled to achieve a target A1C of 7% (154 avg). Fasting blood sugars should be 90-130 in the morning and less than 180 two hours after meals. Reviewed the relationship between poor diabetic control and the development of complications. Coding Level of Care Code Est Pt Level 3 (50970) Complex EM visit Add On G2211 Diagnoses Type 1.5 diabetes, managed as type 1 E13.9 Time Spent (min) 20 Comment Time spent reviewing labs/provider notes, face to face, chart doc, glucose sensor
[2024-05-19 08:48] VITALS: BP 120/82; PULSE 96; O2SAT 98; BMI 19.9
[2024-05-19 08:59] LABS: Glucose, Whole Blood 90 mg/dL (60-115)
--- OUTSIDE RECORDS SUMMARY | 2024-05-19 09:00 | XMS_ITS | Encounter Summary ---
Author Organization [email or web address] Address [address] [facility] [address] 7[address] [place] [address] Care Team Providers Care Application Support Developer Name Role Phone Name, Ananda CRANDALL Primary Care Provider [phone] Reason for Referral * Consultation (Routine) - Authorized Specialty Diagnoses / Procedures Referred By Contac t Referred To Contact Pharmacy Diagnoses Tobacco dependence NameAnanda MD [address] [place] [address] Phone: tel: fax: Referral ID Status Reason Start Date Expiration Date Visits Requested Visits Authorized [id number] Authorized Consult and Treat 05/06/2024 05/06/2025 6 6 Encounter Details Date Type Department Care Team ([facility] st Contact Info) Description 05/06/2024 Telephone [facility] MEDICINE [address] [place] [address] [phone] Ananda Sharpe MD [address] [place], [place] [phone] Social History Tobacco Use Types Packs/Day Years [...] CDTM agreement. Patient is already scheduled w/ [facility] 06/01.Thank you! documented in this encounter Plan of Treatment Upcoming Encounters Date Type Department Care Team (Late st Contact Info) Description 06/01/2024 9:00 AM EDT Medication Management [facility] [address] [place] [address] Geeta Dove, PharmD [address] [place] [address] 06/04/2024 9:45 AM EDT Office Visit [facility] OPTOMETRY [address] [place] [phone] Natalie Davis, OD [address] [place] [address] 06/10/2024 9:30 AM EDT Clinical Support [address] [address] Sonali Stubbs, COREY [address] [place] [phone] 07/15/2024 10:45 AM EDT Office Visit [address] [address] Name, MD Ananda [address] [place] [address] Scheduled Referrals Name Type Priority Associated Diagnoses Orde r Schedule Referral to Pharmacy CDTM Outpatient Referral Routine Tobacco dependence Ordered: 05/06/2024 documented as of this encounter Visit Diagnoses Diagnosis Tobacco dependence- Primary Tobacco use disorder documented in this encounter Additional Health Concerns Assessment Noted Time PHQ-9 Depression Total Score: 10 024 9:15 AM EDT documented as of this encounter Care Teams Application Support Developer Relationship Specialty Start Date End Date Name, MD Ananda [address] [place] [phone] PCP - General Family Medicine 06/01/15 documented as of this encounter
--- OUTSIDE RECORDS SUMMARY | 2024-05-19 09:00 | XMS_ITS | Encounter Summary ---
Author Organization [employer] Address [address] [facility] [address] [place] [address] Care Team Providers Care Petroleum Refining Equipment Operator Name Role Phone Name, Ananda CRANDALL Primary Care Provider [phone] Reason for Visit * Reason Onset Date Comments Med Refill 05/06/2024 Encounter Details Date Type Department Care Team ([facility] st Contact Info) Description 05/06/2024 Refill [facility] MED[facility] [address] [place], [place] [phone] Sonali Stubbs, RN [address] [place] [address] Uncomplicated opioid dependence (CMS/HCC) Social History Tobacco [...] Description 06/01/2024 9:00 AM EDT Medication Management [facility] MEDICINE [address] [place] [address] Geeta Dove PharmD [address] [place] [address] 06/04/2024 9:45 AM EDT Office Visit [facility] OPTOMETRY [address] [place] [address] Natalie Davis, OD [address] [place] [address] 06/10/2024 9:30 AM EDT Clinical Support [facility] MED[facility]INE [address] [place] [address] Sonali Stubbs, COREY [address] [place] [address] 07/15/2024 10:45 AM EDT Office Visit [facility] MED[facility]INE [address] [place] [address] Name, MD Ananda [address] [place] [address] documented as of this encounter Visit Diagnoses Diagnosis Uncomplicated opioid dependence (CMS/HCC) documented in this encounter Additional Health Concerns Assessment Noted Time PHQ-9 Depression Total Score: 10 024 9:15 AM EDT documented as of this encounter Care Teams Petroleum Refining Equipment Operator Relationship Specialty Start Date End Date Name, MD Ananda [address] [place] [address] PCP - General Family Medicine 06/01/15 documented as of this encounter
--- OUTSIDE RECORDS SUMMARY | 2024-05-19 09:00 | XMS_ITS | Encounter Summary ---
Author Organization [employer] Address [address] [facility] [address] 7t [place] [address] Care Team Providers Care Cannon Fire Direction Specialist Name Role Phone Name, Ananda CRANDALL Primary Care Provider [phone] Reason for Visit * Reason Comments Med Refill Encounter Details Date Type Department Care Team ([facility] Contact Info) Description 02/28/2023 Refill [facility] [address] [place], [place] [phone] Name, MD Ananda [address] [place] [address] Pain of left leg Social History Tobacco [...] Description 06/01/2024 9:00 AM EDT Medication Management [facility] MEDICINE [address] [place] [phone] Geeta Dove, PharmD [address] [place] [address] 06/04/2024 9:45 AM EDT Office Visit [facility] OPTOMETRY [address] [place] [address] TarNatalie elizabeth, OD [address] [place] [address] 06/10/2024 9:30 AM EDT Clinical Support [address] [address] Sonali Stubbs, RN [address] [place] [address] 07/15/2024 10:45 AM EDT Office Visit [facility] MEDICINE [address] [place] [address] Ananda Spain MD [address] [place] [address] documented as of this encounter Visit Diagnoses Diagnosis Pain of left leg documented in this encounter Additional Health Concerns Assessment Noted Time PHQ-9 Depression Total Score: 3 10/04/19 23 2:21 PM EDT documented as of this encounter Care Teams Cannon Fire Direction Specialist Relationship Specialty Start Date End Date Ananda Spain MD [address] [place] [address], [place] [address] PCP - General Family Medicine 06/01/15 documented as of this encounter
--- OUTSIDE RECORDS SUMMARY | 2024-05-19 09:00 | XMS_ITS | Encounter Summary ---
Author Organization [employer] Address [address] [facility] [address] [place] [address] Care Team Providers Care Electrical Mechanic Name Role Phone Name, Ananda CRANDALL Primary Care Provider [phone] Encounter Details Date Type Department Care Team (Late Contact Info) Description 05/10/2022 Orders Only [facility] MEDICINE [address] [place] [phone] Alis Zavala, COREY Uncomplicated opioid dependence ([facility]) Social History Tobacco Use Types Packs/Day Years [...] Department Care Team (Late Contact Info) Description 06/01/2024 9:00 AM EDT Medication Management [facility] MEDICINE [address] [place] [address] [phone] Geeta Dove, PharmD [address] [place] [address] [phone] 06/04/2024 9:45 AM EDT Office Visit [facility] OPTOMETRY [address] [place] [address] Natalie Davis, OD [address] [place] [address] 06/10/2024 9:30 AM EDT Clinical Support [facility] MEDICINE [address] [place] [address] Sonali Stubbs, COREY [address] [place] [address] 07/15/2024 10:45 AM EDT Office Visit [facility] MEDICINE [address] [place] [address] Ananda Spain MD [address] [place] [address] documented as of this encounter Visit Diagnoses Diagnosis Uncomplicated opioid dependence (CMS/HCC) documented in this encounter Care Teams Electrical Mechanic Relationship Specialty Start Date End Date Ananda Spain MD [address] [place] [phone] PCP - General Family Medicine 06/01/15 documented as of this encounter
--- OUTSIDE RECORDS SUMMARY | 2024-05-19 09:00 | XMS_ITS | Continuity of Care Document ---
Author Organization [employer] [facility] - [facility] Address [address] [place] [phone] Care Team Providers Care Supervisor Dry Cleaning Name Role Phone HIM CCA OTHER Assessment Encounter Date Assessment Date Assessment LastModified by Organization Details LastModified Time 04/23/2024 04/23/2024 I have reviewed and agree with the assessment and plan as documented by the automatic typewriter inspector. I provided real-time medical direction for this encounter and was immediately available to provide additional phone-based assistance as needed. History as noted in EMR and by automatic typewriter inspector. I would add / emphasize: Patient seen [...] this. Patient was in agreement transported to [facility] subsequently. pallfather Not available 04/24/2024 14:02:36 Plan of Treatment Reminders Order Date Submit Date Provider Last Modified By Organization Details Last Modified Time Details Appointments None recorded. Lab rapid SARS CoV 2 Ag, QL IA, respiratory specimen 2024 025 [facility], [address] [place] [address], [id number], 5 14:47:38 rapid flu (A+B) 2024 025 [facility], [address] [place] [address], [id number], 5 14:47:39 Referral None recorded. Procedures None [...] SNOMED-CT Code Diagnosis ICD10 Code Diagnosis Note [id number] Dillon Galeano MD Main - instED [address] [place] [phone] 04/23/2024 18:36:39 04/24/2024 20:56:44 Hypoxemia [id number] R09.02 Health Concerns Section Related Observation LastModified by Organization Detai ls LastModified Time None Recorded Concern Status LastModified by Organization Details LastModified Time None Recorded Payers Encounter Date Sequence Insurance Name Policy Number Policy Tomlin Covered Member ID Tomlin Member ID Guarantor Name 04/23/2024 1 [facility] - DOS ON OR AFTER 2022 - DUAL ELIGIBLE - HALF-WAY OPTIONS AND ONE CARE (MEDICARE REPLACEMENT/ADV ANTAGE - HMO) Hubert Rios [id number] Hubert Rios Notes Date Note Type Note [...] does not report any new symptoms- [place] Audio Narrator Organization Information for [facility] Business Legal Name: [employer]? Address: [address] [place] [address], Associate Principal: Gucci VELEZ No.: [id number] Audio Narrator POC Test Results from [facility] Rapid COVID antigen (18:34:09) COVID: - Attachments uploaded as part of this test result can be found under Documents section. Rapid influenza antigen (18:34:10) Flu: - Attachments uploaded as part of this test result can be found under Documents section. .................. .................. .................. .................. .................. .................. .................. ............... Audio Narrator Note From [facility]: Dispatched to above [...] to low 80s, HR increased to 115-120. [facility] contacted, advised of patient complaints, exam findings and test results. [facility] recommends transport to ER for further evaluation due to concerns for PE. Patient agrees with this plan. 911 called, Laurent MONTANO and [facility] responded. Verbal report given to [facility] Audio Narrator, took over patient care, will transport to [facility]. Sc8 clear. EOR. .................. .................. .................. .................. .................. .................. .................. ............... [facility] Consulted: Dillon Galeano .................. .................. .................. .................. .................. .................. .................. ............... Disposition: Fulfilled Dillon Galeano MD [address] [facility],[address], [place], [address], Acer - Rigel 04/24/2024 14:02:45
--- OUTSIDE RECORDS SUMMARY | 2024-05-19 09:00 | XMS_ITS | Encounter Summary ---
Author Organization [employer] Address [address] [facility] [address] 7t [place] [address] Care Team Providers Care Wind Farm Engineer Name Role Phone Name, Ananda CRANDALL Primary Care Provider [phone] Reason for Visit * Reason Onset Date Comments Prior Authorization 05/07/2022 Appointment 05/07/2022 Encounter Details Date Type Department Care Team ([facility] st Contact Info) Description 05/07/2022 Telephone [facility]ULT DENTAL [address] [place] [address] Kelvin Haque, DDS [address] [place] [address] Prior Authorization; Appointment Social History Tobacco Use [...] specify if for partial. Don't see if [facility] has approved partials for patient. Patient verifying. documented in this encounter Plan of Treatment Upcoming Encounters Date Type Department Care Team (Late st Contact Info) Description 06/01/2024 9:00 AM EDT Medication Management [facility] MEDICINE [address] [place] [phone] Geeta Dove, PharmD [address] [place] [address] 06/04/2024 9:45 AM EDT Office Visit [facility] OPTOMETRY [address] [place] [address] Natalie Davis, OD [address] [place] [address] 06/10/2024 9:30 AM EDT Clinical Support [address] [address] Sonali Stubbs, RN [address] [place] [address] 07/15/2024 10:45 AM EDT Office Visit [address] [address] Name, MD Ananda [address] [place] [address] documented as of this encounter Visit Diagnoses Not on filedocumented in this encounter Care Teams Wind Farm Engineer Relationship Specialty Start Date End Date Name, MD Ananda [address] [place] [address] PCP - General Family Medicine 06/01/15 documented as of this encounter
--- OUTSIDE RECORDS SUMMARY | 2024-05-19 09:00 | XMS_ITS | Encounter Summary ---
Author Organization [employer] Address [address] [facility] [address] 7[address] [place] [address] Care Team Providers Care Male Impersonator Name Role Phone Name, Ananda CRANDALL Primary Care Provider [phone] Encounter Details Date Type Department Care Team ([facility] Contact Info) Description 03/28/2022 Orders Only [facility] [address] [place], [place] [phone] Teresa Moody LPN Social History Tobacco Use [...] Upcoming Encounters Date Type Department Care Team ([facility] Contact Info) Description 06/01/2024 9:00 AM EDT Medication Management [facility] MEDICINE [address] [place], [place] [phone] Geeta Dove, PharmD [address] [place], [place] [phone] 06/04/2024 9:45 AM EDT Office Visit [facility] OPTOMETRY [address] [place] [address] Ryan Natalie, OD [address] [place] [address] 06/10/2024 9:30 AM EDT Clinical Support [facility] MED[facility] [address] [place] [address] Sonali Stubbs, RN [address] [place] [address] 07/15/2024 10:45 AM EDT Office Visit [facility] MEDICINE [address] [place] [address] Name, MD Ananda [address] [place] [address] documented as of this encounter Visit Diagnoses Not on filedocumented in this encounter Care Teams Male Impersonator Relationship Specialty Start Date End Date NameAnanda MD [address] [place] [address] PCP - General Family Medicine 06/01/15 documented as of this encounter
--- OUTSIDE RECORDS SUMMARY | 2024-05-19 09:00 | XMS_ITS | Encounter Summary ---
Author Organization [employer] Address [address] [facility] [address] [place] [address] Care Team Providers Care Molecular Biology Director Name Role Phone Name, Ananda CRANDALL Primary Care Provider [phone] Reason for Visit * Reason Comments Med Refill Encounter Details Date Type Department Care Team ([facility] Contact Info) Description 03/08/2024 Refill [facility] [address] [place], [place] [phone] Name, MD Ananda [address] [place] [address] Chronic obstructive pulmonary disease, unspecified COPD type [...] Description 06/01/2024 9:00 AM EDT Medication Management [facility] [address] [place] [address] Geeta Dove, PharmD [address] [place] [address] 06/04/2024 9:45 AM EDT Office Visit [facility] OPTOMETRY [address] [place] [address] Natalie Davis, OD [address] [place] [phone] 06/10/2024 9:30 AM EDT Clinical Support [facility] MED[facility] [address] [place] [address] Sonali Stubbs, COREY [address] [place] [address] 07/15/2024 10:45 AM EDT Office Visit [address] [address] Name, MD Ananda [address] [place] [address] documented as of this encounter Visit Diagnoses Diagnosis Chronic obstructive pulmonary disease, unspecified COPD type (CMS/HCC) documented in this encounter Additional Health Concerns Assessment Noted Time PHQ-9 Depression Total Score: 10 024 9:15 AM EDT documented as of this encounter Care Teams Molecular Biology Director Relationship Specialty Start Date End Date Name, MD Ananda [address] [place] [address] PCP - General Family Medicine 06/01/15 documented as of this encounter
--- OUTSIDE RECORDS SUMMARY | 2024-05-19 09:00 | XMS_ITS | Encounter Summary ---
Author Organization [employer] Address [address] [place] [address] Care Team Providers Care Cafe Manager Name Role Phone Name, Ananda CRANDALL Primary Care Provider [phone] Reason for Visit * Reason Comments Med Refill Encounter Details Date Type Department Care Team ([facility] Contact Info) Description 04/25/2022 Refill [facility] MEDICINE [address] [place] [address] [phone] Name, MD Ananda [address] [place] [address] Wheezing (Primary Dx) Social History Tobacco Use [...] Upcoming Encounters Date Type Department Care Team ([facility] Contact Info) Description 06/01/2024 9:00 AM EDT Medication Management [facility] MEDICINE [address] [place] [address] [phone] Geeta Dove, PharmD 230 [place] [address] 06/04/2024 9:45 AM EDT Office Visit [facility] OPTOMETRY [address] [place] [address] Natalie Davis, OD [address] [place] [address] 06/10/2024 9:30 AM EDT Clinical Support [facility] MEDICINE [address] [place] [address] Sonali Stubbs, RN [address] [place] [address] 07/15/2024 10:45 AM EDT Office Visit [facility] MEDICINE [address] [place] [address] Name, MD Ananda [address] [place] [address] documented as of this encounter Visit Diagnoses Diagnosis Wheezing- Primary documented in this encounter Care Teams Cafe Manager Relationship Specialty Start Date End Date Name, MD Ananda [address] [place] [address] PCP - General Family Medicine 06/01/15 documented as of this encounter
--- OUTSIDE RECORDS SUMMARY | 2024-05-19 09:00 | XMS_ITS | Encounter Summary ---
Author Organization [employer] Address [address] 7t [place] [address] Care Team Providers Care Pharmaceutical Operator Name Role Phone Name, Ananad CRANDALL Primary Care Provider Reason for Visit * Reason Onset Date Comments No Show 05/06/2024 Patient no show for sick on site Encounter Details Date Type Department Care Team ([facility] st Contact Info) Description 05/06/2024 Telephone [facility] MEDICINE [address] [place], [place] [phone] Name, MD Ananda 230 [place] [address] No Show (Patient no show for sick [...] x 2 placed to pt via BLS language interpreter (Parvin ID#[id number]) as pt no showed to sick on site today 05/06/24 with Breanna Das for ED follow up chest pain, [facility] 04/23/2024. No answer, LVM to call office back and ask to speak to blue team nurses. * Telephone Encounter - Marilyn Washington - 05/06/2024 11:15 AM EST Patient no show for sick on site documented in this encounter Plan of Treatment Upcoming Encounters Date Type Department Care Team (Late st Contact Info) Description 06/01/2024 9:00 AM EDT Medication Management [facility] MEDICINE [address] [place], [place] [phone] Geeta Dove, PharmD 230 [place] [address] 06/04/2024 9:45 AM EDT Office Visit [facility] OPTOMETRY [address] [place], [place] [phone] Natalie Davis, OD [address] [place] [address] 06/10/2024 9:30 AM EDT Clinical Support [address] [address] Sonali Stubbs, RN [address] [place] [address] 07/15/2024 10:45 AM EDT Office Visit [address] [address] Name, MD Ananda [address] [place] [address] documented as of this encounter Visit Diagnoses Not on filedocumented in this encounter Additional Health Concerns Assessment Noted Time PHQ-9 Depression Total Score: 10 024 9:15 AM EDT documented as of this encounter Care Teams Pharmaceutical Operator Relationship Specialty Start Date End Date NameAnanda MD [address] [place] [address] PCP - General Family Medicine 06/01/15 documented as of this encounter
--- OUTSIDE RECORDS SUMMARY | 2024-05-19 09:00 | XMS_ITS | Encounter Summary ---
Author Organization [employer] Address [address] 7t [place] [address] Care Team Providers Care Lodge Attendant Name Role Phone Name, Ananda CRANDALL Primary Care Provider [phone] Encounter Details Date Type Department Care Team ([facility] st Contact Info) Description 03/28/2023 Abstract [facility] MEDICINE 230 [place], [place] [phone] Name, MD Ananda 230 [place] [address] Social History Tobacco Use Types Packs/Day Years [...] t he electric, gas, oil or water [employer] threatened to shut off services in your [...] Description 06/01/2024 9:00 AM EDT Medication Management [facility] MEDICINE [address] [place] [address] Geeta Dove, LoretoD [address] [place] [address] 06/04/2024 9:45 AM EDT Office Visit [facility] OPTOMETRY [address] [place] [address] Natalie Davis, OD [address] [place] [address] 06/10/2024 9:30 AM EDT Clinical Support [address] [address] Sonali Stubbs, RN [address] [place] [address] 07/15/2024 10:45 AM EDT Office Visit [facility] [address] [place] [address] NameAnanda MD [address] [place] [address] documented as of this encounter Visit Diagnoses Not on filedocumented in this encounter Additional Health Concerns Assessment Noted Time PHQ-9 Depression Total Score: 3 10/04/19 23 2:21 PM EDT documented as of this encounter Care Teams Lodge Attendant Relationship Specialty Start Date End Date Ananda Spain MD [address] [place] [address] PCP - General Family Medicine 06/01/15 documented as of this encounter
--- OUTSIDE RECORDS SUMMARY | 2024-05-19 09:00 | XMS_ITS | Encounter Summary ---
Author Organization [employer] Address [address] 7t [place] [address] Care Team Providers Care Reconditioning Associate Name Role Phone Name, Ananda CRANDALL Primary Care Provider [phone] Reason for Visit * Reason Onset Date Comments chartprep 04/30/2024 Encounter Details Date Type Department Care Team ([facility] Contact Info) Description 04/30/2024 Telephone [facility] [address] [place], [place] [phone] Name, MD Ananda 230 [place] [address] chartprep Social History Tobacco Use Types Packs/Day [...] Description 06/01/2024 9:00 AM EDT Medication Management [facility] [address] [place] [address] Geeta Dove, PharmD 230 [place] [address] 06/04/2024 9:45 AM EDT Office Visit [facility] OPTOMETRY 267 [place] [address] Natalie Davis OD 267 [place] [address] 06/10/2024 9:30 AM EDT Clinical Support [facility] [address] [place] [address] Sonali Stubbs, COREY 230 [place] [address] 07/15/2024 10:45 AM EDT Office Visit [facility] 230 [place] [address] Name, MD Ananda 230 [place] [address] documented as of this encounter Visit Diagnoses Not on filedocumented in this encounter Additional Health Concerns Assessment Noted Time PHQ-9 Depression Total Score: 10 024 9:15 AM EDT documented as of this encounter Care Teams Reconditioning Associate Relationship Specialty Start Date End Date Name, MD Ananda [address] [place] [address] PCP - General Family Medicine 06/01/15 documented as of this encounter
--- OUTSIDE RECORDS SUMMARY | 2024-05-19 09:00 | XMS_ITS | Encounter Summary ---
Author Organization [employer] Address [address] 7t [place] [address] Care Team Providers Care Court Interpreter Name Role Phone Name, Ananda CRANDALL Primary Care Provider [phone] Encounter Details Date Type Department Care Team ([facility] Contact Info) Description 04/23/2024 Telephone [facility] MEDICINE [address] [place], [place] [phone] Name, MD Ananda 230 [place] [address] Social History Tobacco Use Types Packs/Day Years [...] 04/23/2024 9:08 AM EST Ananda Spain MD [facility] Blue Team Nurses Please call [employer] for this patient. We can discontinue his oxygen based on recent readings. T/C placed to [employer]. Advised Guerda of message from PCP. Guerda requests that discontinue order be faxed to [phone]. Faxed as requested with pulmonary rehab note. documented in this encounter Plan of Treatment Upcoming Encounters Date Type Department Care Team (Late st Contact Info) Description 06/01/2024 9:00 AM EDT Medication Management [facility] MEDICINE [address] [place] [address] Geeta Dove, PharmD 230 [place] [address] 06/04/2024 9:45 AM EDT Office Visit [facility] OPTOMETRY [address] [place] [address] Natalie Davis OD 267 [place] [address] 06/10/2024 9:30 AM EDT Clinical Support [facility] MEDICINE [address] [place] [address] Sonali Stubbs, COREY 230 [place] [address] 07/15/2024 10:45 AM EDT Office Visit [facility] MEDICINE [address] [place] [address] Name, MD Ananda 230 [place] [address] documented as of this encounter Visit Diagnoses Not on filedocumented in this encounter Additional Health Concerns Assessment Noted Time PHQ-9 Depression Total Score: 10 024 9:15 AM EDT documented as of this encounter Care Teams Court Interpreter Relationship Specialty Start Date End Date Name, MD Ananda [address] [place] [address] PCP - General Family Medicine 06/01/15 documented as of this encounter
--- OUTSIDE RECORDS SUMMARY | 2024-05-19 09:00 | XMS_ITS | Encounter Summary ---
Author Organization [employer] Address [address] [facility] [facility] [address] 7t [place] [address] Care Team Providers Care Bender Hand Name Role Phone Name, Ananda CRANDALL Primary Care Provider [phone] Encounter Details Date Type Department Care Team ([facility] Contact Info) Description 02/14/[address] [facility] MEDICINE 230 [place], [place] [phone] Provider, MD Damari Social History Tobacco Use [...] Upcoming Encounters Date Type Department Care Team ([facility] Contact Info) Description 06/01/2024 9:00 AM EDT Medication Management [facility] MEDICINE 230 [place], [place] [phone] Geeta Dove, PharmD 230 [place] [address] 06/04/2024 9:45 AM EDT Office Visit [facility] OPTOMETRY [address] [place] [address] [place] [address] Ryan Natalie, OD 267 [place] [address] 06/10/2024 9:30 AM EDT Clinical Support [facility] MEDICINE [address] [place] [address] Sonali Stubbs, COREY 230 [place] [address] 07/15/2024 10:45 AM EDT Office Visit [facility] MEDICINE [address] [place] [address] Name, MD Ananda [address] [place] [address] documented as of this encounter Visit Diagnoses Not on filedocumented in this encounter Care Teams Bender Hand Relationship Specialty Start Date End Date Name, MD Ananda [address] [place] [address] PCP - General Family Medicine 06/01/15 documented as of this encounter
--- OUTSIDE RECORDS SUMMARY | 2024-05-19 09:00 | XMS_ITS | Encounter Summary ---
Author Organization [employer] Address [address] 7[address] [place] [address] Care Team Providers Care Head School Custodian Name Role Phone Name, Ananda CRANDALL Primary Care Provider [phone] Reason for Visit * Reason Comments Med Refill Encounter Details Date Type Department Care Team ([facility] Contact Info) Description 04/23/2024 Refill [facility] MEDICINE 230 [place], [place] [phone] Name, MD Ananda 230 [place] [address] Constipation, unspecified constipation type Social History Tobacco [...] Description 06/01/2024 9:00 AM EDT Medication Management [facility] MED[facility]INE [address] [place] [address] Geeta Dove, LoretoD [address] [place] [address] 06/04/2024 9:45 AM EDT Office Visit [facility] OPTOMETRY [address] [place] [address] Natalie Davis, OD [address] [place] [address] 06/10/2024 9:30 AM EDT Clinical Support [facility] [address] [place] [address] Sonali Stubbs, COREY [address] [place] [address] 07/15/2024 10:45 AM EDT Office Visit [facility] MED[facility] [address] [place] [address] Name, MD Ananda [address] [place] [address] documented as of this encounter Visit Diagnoses Diagnosis Constipation, unspecified constipation type documented in this encounter Additional Health Concerns Assessment Noted Time PHQ-9 Depression Total Score: 10 024 9:15 AM EDT documented as of this encounter Care Teams Head School Custodian Relationship Specialty Start Date End Date Name, MD Ananda 230 [place] [address] PCP - General Family Medicine 06/01/15 documented as of this encounter
--- OUTSIDE RECORDS SUMMARY | 2024-05-19 09:00 | XMS_ITS | Encounter Summary ---
Author Organization [employer] Address [address] [facility] [address] 7t [place] [address] Care Team Providers Care Sewer Pipe Layer Name Role Phone Name, Ananda CRANDALL Primary Care Provider [phone] Reason for Visit * Reason Comments Med Refill Encounter Details Date Type Department Care Team (Late Contact Info) Description 12/07/2022 Refill [facility] MEDICINE [address] [place] [address] [phone] Name, MD Ananda [address] [place] [address] Type 2 diabetes mellitus without complication, unspecified whether longwall headgate operator insulin use ([facility]); Type 2 diabetes mellitus without complication, with long-term current use of insulin ([facility]) Social History [...] Description 06/01/2024 9:00 AM EDT Medication Management [facility] MEDICINE [address] [place] [address] Geeta Dove, PharmD 230 [place] [address] 06/04/2024 9:45 AM EDT Office Visit [facility] OPTOMETRY [address] [place] [address] Griseldaclara Natalie, OD 267 [place] [address] 06/10/2024 9:30 AM EDT Clinical Support [facility] MEDICINE 230 [place] [address] Sonali Stubbs, COREY [address] [place] [address] 07/15/2024 10:45 AM EDT Office Visit [facility] MEDICINE [address] [place] [address] Name, MD Ananda [address] [place] [address] documented as of this encounter Visit Diagnoses Diagnosis Type 2 diabetes mellitus without complication, unspecified whether correction insulin use ([facility]) documented in this encounter Additional Health Concerns Assessment Noted Time PHQ-9 Depression Total Score: 3 10/04/19 23 2:21 PM EDT documented as of this encounter Care Teams Sewer Pipe Layer Relationship Specialty Start Date End Date NameAnanda MD [address] [place] [address] PCP - General Family Medicine 06/01/15 documented as of this encounter
--- OUTSIDE RECORDS SUMMARY | 2024-05-19 09:01 | XMS_ITS | Encounter Summary ---
Author Organization [employer] Address [address] 7t [place] [address] Care Team Providers Care Dean For Student Affairs Name Role Phone Name, Ananda CRANDALL Primary Care Provider [phone] Encounter Details Date Type Department Care Team (Latest Contact Info) Description 01/06/2019 Abstract [facility] CONVERSIONS Dental, Provider, DDS Social History [...] 9:00 AM EDT Medication Management [facility] MEDICINE 230 [place] [address] Geeta Dove, PharmD 230 [place] [address] 06/04/2024 9:45 AM EDT Office Visit [facility] OPTOMETRY 267 [place] [address] Natalie Davis OD 267 [place] [address] 06/10/2024 9:30 AM EDT Clinical Support [facility] MEDICINE 230 [place] [address] Sonali Stubbs, RN 230 [place] [address] 07/15/2024 10:45 AM EDT Office Visit [facility] MEDICINE [address] [place] [address] Name, MD Ananda [address] [place] [address] documented as of this encounter Visit Diagnoses Not on filedocumented in this encounter Care Teams Dean For Student Affairs Relationship Specialty Start Date End Date Name, MD Ananda [address] [place] [address] PCP - General Family Medicine 06/01/15 documented as of this encounter
--- OUTSIDE RECORDS SUMMARY | 2024-05-19 09:01 | XMS_ITS | Encounter Summary ---
Author Organization [employer] Address [address] 7t [place] [address] Care Team Providers Care Sales Management Trainee Name Role Phone Name, Ananda CRANDALL Primary Care Provider [phone] Reason for Visit * Reason Onset Date Comments No Show 05/06/2024 Encounter Details Date Type Department Care Team ([facility] Contact Info) Description 05/06/2024 Telephone [facility] MEDICINE 230 [place], [place] [phone] Name, MD Ananda 230 [place] [address] No Show Social History Tobacco Use Types [...] x 2 placed to pt via BLS doorshaker (Parvin ID#[id number]) as pt no showed to sick on site today 05/06/24 with Breanna Das for ED follow up chest pain, [facility] 04/23/2024. No answer, LVM to call office [...] Description 06/01/2024 9:00 AM EDT Medication Management [facility] MEDICINE 230 [place], [place] [phone] Geeta Dove, PharmD 230 [place] [address] 06/04/2024 9:45 AM EDT Office Visit [facility] OPTOMETRY [address] [place] [address] Natalie Davis, OD [address] [place] [address] 06/10/2024 9:30 AM EDT Clinical Support [address] [address] Sonali Stubbs, RN [address] [place] [address] 07/15/2024 10:45 AM EDT Office Visit [address] [address] Name, MD Ananda [address] [place] [address] documented as of this encounter Visit Diagnoses Not on filedocumented in this encounter Additional Health Concerns Assessment Noted Time PHQ-9 Depression Total Score: 10 024 9:15 AM EDT documented as of this encounter Care Teams Sales Management Trainee Relationship Specialty Start Date End Date NameAnanda MD [address] [place] [address] PCP - General Family Medicine 06/01/15 documented as of this encounter
--- OUTSIDE RECORDS SUMMARY | 2024-05-19 09:01 | XMS_ITS | Encounter Summary ---
Author Organization [employer] Address [address] [place] [address] Care Team Providers Care Fur Liner Name Role Phone Name, Ananda CRANDALL Primary Care Provider [phone] Reason for Visit * Reason Comments OBAT F/U Encounter Details Date Type Department Care Team (Latest Contact Info) Description 05/13/2024 9:30 AM EDT Office Visit [facility] [address] [place], [place] [phone] Latrice Ibrahim MD [address] [place] [address] Uncomplicated opioid dependence (CMS/HCC) (Primary Dx); Tobacco [...] Sign Reading Time Taken Comments Blood Pressure - - Pulse 88 05/13/2024 10:13 AM EDT Temperature - - Respiratory Rate - - Oxygen Saturation 98% 05/13/2024 10:13 AM EDT Inhaled Oxygen Concentration - - Weight - - Height - - Body Mass Index - - documented in this encounter Progress Notes * Latrice Ibrahim MD - 05/13/2024 9:30 AM EDT Subjective Patient ID: Hubert iRos is a 59 y.o. male who presents for OBAT RV. HPI Patient has been in the program for 14 years 8 months, since 07/2009. Currently seeing therapist, Yuko Thomas, at [facility], [address] [place] [address]. Haspsychiatrist, Teodoro Bee, in private practice. Prescribed benzo. Current dose of Suboxone is 24/6 mg daily, on a 4 week schedule appt. LFTs done 04/12/24. Y[facility] DYER reviewed by provider. PrEP: declined 04/19/21 PCP: last seen 02/28/24 Tobacco use discussion: Smoking 1 cig per day on 05/13/24, using nicotine patch 21 mg (not every day) LAST VISIT: 04/15/24 frannie Mann seen today for follow up for opioid use disorder. Reports he was hospitalized with dx chest pain, COPD exacerbation, Malnutrition at [facility] 03/29/23-03/30/24. [facility] Reports feeling better since hospitalization although sometimes has an asthma exacerbation. Oniday he is going to [facility] for two weeks and is looking forward to the trip. Interim Hx: Seen by PCP on 04/16/24. Rx azithromycin three times per week and referred to utility arborist. InstED visit for SOB and hypoxemia on 04/23/24. ED visit on 05/06/24 for SOB. Seen by utility arborist on 05/08/24. Fluticasone furonate / vilanterol (Breo) was changed to fluticasone / umeclidinium / vilanterol (Trelegy). On oxygen. Today: 05/13/24 Utox: pos bup; (neg bzd Rx'd) He states he is feeling much better. He is recovering from pneumonia in Mar 2024. He is no longer on oxygen. He is proud to tell us that he is now down to 1 cig per day. He has pulse ox which was 98%on RA during this visit. He thinks winter in [place] is too cold, and he always gets sick in winter. He states he was referred to smoking cessation class (CDTM) by PCP. Plan: Suboxone dosing schedule of 24/6 mg [...] at 2.12??(5) and 2.65. Review of Systems Constitutional: Negative for activity change, appetite change, chills, fatigue and fever. Skin: Negative for wound. Objective Physical Exam Constitutional: General: He is not in acute distress. Appearance: Normal appearance. Pulmonary: Effort: Pulmonary effort is normal. Neurological: Mental Status: He is alert. Psychiatric: Mood and Affect: Mood normal. Behavior: Behavior normal. Office Visit on 05/13/2024 Component Date Value Ref Range Status THC 05/13/2024 Negative Final Cocaine Screen, Urine 05/13/2024 Negative Final Opiate Screen, Urine 05/13/2024 Negative Final Methamphetamine Screen Urine 05/13/2024 Negative Final Amphetamine Screen, Urine 05/13/2024 Negative Final Benzodiazepines Screen, Urine 05/13/2024 Negative Final Barbiturate Screen, Urine 05/13/2024 Negative Final Methadone Screen, Urine 05/13/2024 Negative Final Buprenophine Screen, Urine 05/13/2024 Positive Final TCA, Urine 05/13/2024 Negative Final MDMA Urine 05/13/2024 Negative ng/mL Final Oxycodone Screen, Urine 05/13/2024 Negative Final Phencyclidine (PCP), Urine 05/13/2024 Negative Final Propoxyphene, Urine 05/13/2024 Negative Final Fentanyl, Urine 05/13/2024 Negative Final Overdose Risk Tool In the past 6 months: co -occurring medical conditions (hepatitis/cirrhosis, pulmonary disease, renal impairment, sleep apnea, HIV), mental health diagnosis, medications that increase respiratory depression (opioids, benzodiazepines, certain antidepressants), and recent hospitalization Score: 6/8 Overdose risks reviewed. Assessment/Plan documented in this encounter Miscellaneous Notes * Assessment & Plan Note - Latrice Ibrahim MD - 05/13/2024 10:16 AM EDTAssociated Problem(s): Tobacco dependence - in progress - down to 1 cig per day! - continue current effort - invited to [facility] tobacco use d/o support group * Assessment & Plan Note - Latrice Ibrahim MD - 05/12/2024 4:22 PM EDTAssociated Problem(s): Opioid dependence (CMS/HCC) - in maintenance stage, long-term - BZD is prescribed by psychiatrist - No opi / fen in [place] for many years - overdose risk: high - recent hospitalization, COPD on oxygen, depression, co- prescription of high-risk medication - continue current medication dose and visit frequency - continue education on overdose prevention, drug use trends in the community - continue current recovery support and recovery effort documented in this encounter Plan of Treatment Upcoming Encounters Date Type Department Care Team (Late st Contact Info) Description 06/01/2024 9:00 AM EDT Medication Management [facility] [address] [place] [phone] Geeta Dove, PharmD [address] [place] [address] 06/04/2024 9:45 AM EDT Office Visit [facility] [address] [place] [address] TarNatalie elizabeth, OD [address] [place] [address] 06/10/2024 9:30 AM EDT Clinical Support [address] [address] Sonali Stubbs, COREY [address] [place] [address] 07/15/2024 10:45 AM EDT Office Visit [address] [address] Name, MD Ananda [address] [place] [address] documented as of this encounter Goals Goal Patient Goal Type Associated Problems Recent Progress Patient-Stated? Author Increase coping skills to promote long-term recovery and improve ability to perform daily activities General No Sonali Stubbs, RN documented as of this encounter Procedures Procedure Name Priority Date/Time Associated Diagnosis Comments POCT FARA-14 URINE DRUG SCREEN Routine 05/13/2024 9:43 AM EDT Uncomplicated opioid dependence (CMS/HCC) documented in this encounter Results * POCT FARA-14 Urine Drug Screen (05/13/2024 9:43 AM EDT) THC Negative Cocaine Screen, Urine Negative Opiate Screen, Urine Negative Methamphetamine Screen Urine Negative Amphetamine Screen, Urine Negative Benzodiazepines Screen, Urine Negative Barbiturate Screen, Urine Negative Methadone Screen, Urine Negative Buprenophine Screen, Urine Positive TCA, Urine Negative MDMA Urine Negative ng/mL Oxycodone Screen, Urine Negative Phencyclidine (PCP), Urine Negative Propoxyphene, Urine Negative Fentanyl, Urine Negative Urine Urine specimen obtained by clean catch procedure / Unknown 05/13/2024 9:43 AM EDT Latrice Ibrahim MD POINT OF CARE TEST ENTER/EDIT OR DERABLES Final Result documented in this encounter Visit Diagnoses Diagnosis Uncomplicated opioid dependence (CMS/HCC)- Primary Tobacco dependence Tobacco use disorder documented in this encounter Additional Health Concerns Assessment Noted Time PHQ-9 Depression Total Score: 10 024 9:15 AM EDT documented as of this encounter Care Teams Fur Liner Relationship Specialty Start Date End Date Name, MD Ananda [address] [place] [address] PCP - General Family Medicine 06/01/15 documented as of this encounter
--- OUTSIDE RECORDS SUMMARY | 2024-05-19 09:01 | XMS_ITS | Data Portability ---
Author Organization [employer] [facility] Address [address] [place] [id number] Care Team Providers Care Toy Painter Name Role Phone HIM CCA OTHER Assessment Encounter Date Assessment Date Assessment LastModified by Organization Details LastModified Time 04/23/2024 04/23/2024 I have reviewed and agree with the assessment and plan as documented by the care worker. I provided real-time medical direction for this encounter and was immediately available to provide additional phone-based assistance as needed. History as noted in EMR and by care worker. I would add / emphasize: Patient seen [...] this. Patient was in agreement transported to [facility] subsequently. pallfather Not available 04/24/2024 14:02:36 Plan of Treatment Reminders Order Date Submit Date Provider Last Modified By Organization Details Last Modified Time Details Appointments None recorded. Lab rapid SARS CoV 2 Ag, QL IA, respiratory specimen 2024 025 [facility], [address] [place] [address], [id number], 5 14:47:38 rapid flu (A+B) [address], [id number], 5 14:47:39 Referral None recorded. Procedures None [...] SNOMED-CT Code Diagnosis ICD10 Code Diagnosis Note [id number] Dillon Galeano MD Main - instED [address] [place] [address] 04/23/2024 18:36:39 04/24/2024 20:56:44 Hypoxemia 905982042 R09.02 Health Concerns Section Related Observation LastModified by Organization Detai ls LastModified Time None Recorded Concern Status LastModified by Organization Details LastModified Time None Recorded Advance Directives Directive None Recorded Payers Encounter Date Sequence Insurance Name Policy Number Policy Tomlin Covered Member ID Tomlin Member ID Guarantor Name 04/23/[address] [facility] - DOS ON OR AFTER 2022 - DUAL ELIGIBLE - CUSTODIAL OPTIONS AND ONE CARE (MEDICARE REPLACEMENT/ADV ANTAGE - HMO) Hubert Rios [id number] Hubert Rios Notes Date Note Type Note [...] does not report any new symptoms- [place] Sap Abap Developer Organization Information for [employer] Business Legal Name: [employer]? Address: [address] [place] [id number], Utility Tractor Operator: Gucci VELEZ No.: [id number] [employer] Developer POC Test Results from [employer] - NIEVES Rapid COVID antigen (18:34:09) COVID: - Attachments uploaded as part of this test result can be found under Documents section. Rapid influenza antigen (18:34:10) Flu: - Attachments uploaded as part of this test result can be found under Documents section. .................. .................. .................. .................. .................. .................. .................. ............... Sap Abap Developer Note From [employer]: Dispatched to above [...] to low 80s, HR increased to 115-120. [facility] [place], advised of patient complaints, exam findings and test results. [facility] [place] transport to ER for further evaluation due to concerns for PE. Patient agrees with this plan. 911 called, Laurent MONTANO and [facility] responded. Verbal report given to [facility] Sap Abap Developer, took over patient care, will transport to [facility]. Sc8 clear. EOR. .................. .................. .................. .................. .................. .................. .................. ............... [facility] Consulted: Dillon Galeano .................. .................. .................. .................. .................. .................. .................. ............... Disposition: Fulfilled Dillon Galeano MD [address] [facility], [place], [address], [employer] 04/24/2024 14:02:45
--- OUTSIDE RECORDS SUMMARY | 2024-05-19 09:01 | XMS_ITS | Encounter Summary ---
Author Organization [employer] Address [address] [place] [address] Care Team Providers Care Councilor Name Role Phone Name, Ananda CRANDALL Primary Care Provider [phone] Encounter Details Date Type Department Care Team (Latest Contact Info) Description 05/13/2024 Travel Social History Tobacco Use Types Packs/Day [...] Description 06/01/2024 9:00 AM EDT Medication Management [facility] [address] [place] [address] PuiaGeeta, PharmD [address] [place] [address] 06/04/2024 9:45 AM EDT Office Visit [facility] [address] [place] [address] TarkaNatalie, OD [address] [place] [address] 06/10/2024 9:30 AM EDT Clinical Support [address] [address] Sonali Stubbs RN [address] [place] [address] 07/15/2024 10:45 AM EDT Office Visit [address] [address] Ananda Spain MD [address] [place] [address] documented as of this encounter Goals Goal Patient Goal Type Associated Problems Recent Progress Patient-Stated? Author Increase coping skills to promote long-term recovery and improve ability to perform daily activities General No Sonali Stubbs, RN documented as of this encounter Visit Diagnoses Not on filedocumented in this encounter Additional Health Concerns Assessment Noted Time PHQ-9 Depression Total Score: 10 024 9:15 AM EDT documented as of this encounter Care Teams Councilor Relationship Specialty Start Date End Date Ananda Spain MD [address] [place] [address] PCP - General Family Medicine 06/01/15 documented as of this encounter
--- OUTSIDE RECORDS SUMMARY | 2024-05-19 09:01 | XMS_ITS | Encounter Summary ---
Author Organization [employer] Address [address] [place] [address] Care Team Providers Care Director Of Marketing And Promotions Name Role Phone Name, Ananda CRANDALL Primary Care Provider [phone] Encounter Details Date Type Department Care Team ([facility] Contact Info) Description 05/14/2024 Telephone [facility] [address] [place], [place] [phone] Name, MD Ananda [address] [place] [address] Social History Tobacco Use Types Packs/Day Years [...] Telephone Encounter - Kim Montez RN - 05/14/2024 9:06 AM EDT Pt discharged from [facility] 05/06/24 Dx: COPD exacerbation, weight loss. T/C placed to pt via [employer] Valentina #[id number] to schedule HDF. No answer x 2 attempts. V/M left to return call to [place] team nurses. documented in this encounter Plan of Treatment Upcoming Encounters Date Type Department Care Team (Late st Contact Info) Description 06/01/2024 9:00 AM EDT Medication Management [facility] [address] [place] [address] Geeta Dove, PharmD [address] [place] [address] 06/04/2024 9:45 AM EDT Office Visit [facility] [address] [place] [address] Natalie Davis, OD [address] [place] [address] 06/10/2024 9:30 AM EDT Clinical Support [facility] [address] [place] [address] Sonali Stubbs, RN [address] [place] [address] 07/15/2024 10:45 AM EDT Office Visit [facility] [address] [place] [address] Name, MD Ananda [address] [place] [address] documented as of this encounter Goals Goal [...] documented as of this encounter Care Teams Director Of Marketing And Promotions Relationship Specialty Start Date End Date Name, MD Ananda [address] [place] [address] PCP - General Family Medicine 06/01/15 documented as of this encounter
--- OUTSIDE RECORDS SUMMARY | 2024-05-19 09:01 | XMS_ITS | Encounter Summary ---
Author Organization [employer] Address [address] [place] [address] Care Team Providers Care Lead Embedded Software Engineer Name Role Phone Name, Ananda CRANDALL Primary Care Provider [phone] Reason for Visit * Reason Onset Date Comments Durable Medical Equipment 09/18/2022 Encounter Details Date Type Department Care Team ([facility] st Contact Info) Description 09/18/2022 Telephone [facility] [address] [place], [place] [phone] Name, MD Ananda [address] [place] [address] Durable Medical Equipment Social History Tobacco Use [...] encounter Miscellaneous Notes * Telephone Encounter - Crhisty Finn RN - 09/21/2022 1:49 PM EDT Incoming call from [facility] regarding message below. [facility] states they have no record of pt ever going to their offices and getting PT. Unsure what next steps should be at this point. * Telephone Encounter - Christy Finn RN - 09/21/2022 1:39 PM EDT TC X1 to [facility] [phone] regarding message below. LVM to return call to nurses. * Telephone Encounter - Lauren Walsh - 09/20/2022 3:14 PM EDT Tc from patient returning call back, regarding message below. Patient states he's going to PT in [facility]. [address] [place] [address] [place] [address] Dr. Mcdaniel. * Telephone Encounter - Christy [...] 9:00 AM EDT Medication Management [facility] [address] [place] [address] Geeta Dove, PharmD [address] [place] [address] 06/04/2024 9:45 AM EDT Office Visit [facility] [address] [place] [address] Natalie Davis, OD [address] [place] [address] 06/10/2024 9:30 AM EDT Clinical Support [facility] [address] [place] [address] Sonali Stubbs, RN [address] [place] [address] 07/15/2024 10:45 AM EDT Office Visit [facility] [address] [place] [address] Name, MD Ananda [address] [place] [address] documented as of this encounter Visit Diagnoses Not on filedocumented in this encounter Care Teams Lead Embedded Software Engineer Relationship Specialty Start Date End Date Name, MD Ananda [address] [place] [address] PCP - General Family Medicine 06/01/15 documented as of this encounter
--- OUTSIDE RECORDS SUMMARY | 2024-05-19 09:01 | XMS_ITS | Clinical Summary ---
Author Organization [employer] Address [address] [place] [address] Care Team Providers Care Construction Lineman Name Role Phone Name, Ananda CRANDALL Primary Care Provider [phone] Allergies No known active allergies Medications docusate sodium (Colace) 100 MG capsule Take 1 capsule by mouth at bed time. 021 Active glucose blood (NexgenceTouch Verio) test strip every 8 (eight) hours. [...] (CMS/HCC) 1 each 2 times daily. Call [facility] if consistently < 95% 1 each 023 Active Alcohol Swabs (Alcohol Prep) 70 % pads USE FOUR TIMES DAILY DIRECTED 023 Active clonazePAM (KlonoPIN) 1 MG tablet Take 1 mg by mouth 2 times daily. 023 Active Lancets (NexgenceTouch Delica Plus [id number]) [facility] [place] BLOOD SUGAR THREE TIMES DAILY 023 [...] Continuous Glucose Sensor (FreeStyle Kasey 2 Sensor) [facility] USE DIRECTED TO TEST BLOOD SUGAR 8 TIMES PER DAY 2 each Active Continuous Glucose Trauma Program Manager (FreeStyle Kasey 2 [place]) device Scan sensor every 8 hours 1 [...] 2 diabetes mellitus without complication, unspecified whether extermination supervisor insulin use (CMS/HCC) USE DIRECTED FOUR TIMES DAILY 100 each 5 024 Active glucose blood (FreeStyle Precision Isak Test) test stripIndication s:Type 2 diabetes mellitus with hyperglycemia, with long-term current use of insulin ([facility]) 1 each by Other route 3 times daily. 100 each 3 024 Active albuterol (2.5 MG/3ML) 0.083% nebulizer solution Take 3 mL (2.5 mg) by nebulization every 6 (six) hours if needed for wheezing. 75 mL 11 024 2024 Active atorvastatin (Lipitor) 40 MG tabletIndicatio ns:Type 2 diabetes mellitus with hyperglycemia, with long-term current use of insulin ([facility]) TAKE 1 TABLET BY MOUTH EVERY DAY DIRECTED 90 tablet 025 Active Acetaminophen Extra Strength 500 MG tabletIndicatio ns:Cough in adult patient Take 1 tablet (500 mg) by mouth 3 times daily. 90 tablet 2 025 Active glucose 4 g chewable tablet CHEW 4 TABLETS BY MOUTH EVERY 15 MINUTES NEEDED FOR LOW BLOOD SUGAR UNTIL SYMPTOMS RESOLVED OR LOW BLOOD SUGAR IS RESOLVED Active Fluticasone Furoate-Vilante rol 100-25 MCG/ACT aerosol powder Inhale 1 puff Once per day. Same time every day 60 each 3 Active Umeclidinium [place] (Incruse Ellipta) 62.5 MCG/ACT aerosol powderIndicatio ns:Chronic obstructive pulmonary disease, unspecified COPD type ([facility]) Inhale 1 Act (62.5 mcg) Once per day. 30 each 025 2025 Active albuterol (Ventolin HFA) 108 (90 Base) MCG/ACT inhalerIndicati ons:Chronic obstructive pulmonary disease, unspecified COPD type ([facility]) INHALE 2 PUFFS BY MOUTH EVERY 4 TO 6 HOURS NEEDED 18 g 025 Active senna (Senokot) 8.6 MG tabletIndicatio ns:Constipation , unspecified constipation type TAKE 2 TABLETS BY MOUTH EVERY DAY NEEDED FOR CONSTIPATION 60 tablet 5 025 Active Suboxone 8-2 MG SL filmIndications :Uncomplicated opioid dependence ([facility]) Place 3 Film under the tongue Once per day for 28 days. 84 Film 025 2024 Active senna (Senokot) 8.6 MG tabletIndicatio ns:Constipation , unspecified constipation type TAKE 2 TABLETS BY MOUTH EVERY DAY NEEDED FOR CONSTIPATION 60 tablet 5 024 2024 Discontinued Suboxone 8-2 MG SL filmIndications :Uncomplicated opioid dependence (CMS/HCC) Place 3 Film under the tongue Once per day for 28 days. 84 Film 025 2024 Discontinued(R eorder (will not trigger notification to Pharmacy)) azithromycin (Zithromax) 500 MG tablet Take 1 tablet (500 mg) by mouth every 3 (three) days. 10 tablet 025 2024 Active Problems Problem Noted Date Diagnosed Date [...] 12/19/2011 Opioid dependence 08/15/2011 Assessment & Plan (05/12/2024 4:32 PM EDT): - in maintenance stage, long-term - BZD is prescribed by psychiatrist - No opi / fen in [place] for many years - overdose risk: high - recent hospitalization, COPD on oxygen, depression, co-prescription of high-risk medication - continue current medication dose and visit frequency - continue education on overdose prevention, drug use trends in the community - continue current recovery support and recovery effort Assessment & Plan (03/18/2024 5:16 AM EST): [...] 08/15/2011 Tobacco dependence 08/15/2011 Assessment & Plan (05/13/2024 10:16 AM EDT): - in progress - down to 1 cig per day! - continue current effort - invited to [facility] tobacco use d/o support group Assessment & Plan (03/18/2024 5:16 AM EST): [...] Encounters Date Type Department Care Team Description 05/19/2024 Orders Only GENERIC EXTERNAL DATA DEPARTMENT Provider, Generic External Data 05/14/2024 Telephone [facility] MED[facility] [address] [place] [address] Ananda Spain MD 05/13/2024 9:30 AM EDT Office Visit [facility] [address] [place] [address] Latrice Ibrahim MD Uncomplicated opioid dependence ([facility]) (Primary Dx); Tobacco dependence 05/13/2024 Travel 05/06/2024 Refill [facility] [address] [place] [address] Sonali Stubbs, COREY Uncomplicated opioid dependence ([facility]/HCC) 05/06/2024 Telephone [facility] [address] [place] [address] Ananda Spain MD No Show (Patient no show for sick on site ) 05/06/2024 Telephone [facility] MED[facility]INE [address] [place] [address] Ananda Spain MD No Show 05/06/2024 Telephone [facility] [address] [place] [address] Ananda Spain MD 04/30/2024 Telephone [facility] [address], [place] [phone] Ananda Spain MD chartprep 04/23/2024 Telephone [facility] MED[facility]INE [address] [place] [address] Ananda Spain MD 04/23/2024 Refill [facility] MED[facility]INE [address] [place] [phone] Ananda Spain MD Constipation, unspecified constipation type 04/16/2024 10:00 AM EST Office Visit [address] [address] Ananda Spain MD Chronic obstructive pulmonary disease, unspecified COPD type ([facility]/HCC) (Primary Dx); COPD exacerbation ([facility]/HCC); Hypoxia; Non-cardiac chest pain; Type 2 diabetes mellitus with hyperglycemia, with long-term current use of insulin ([facility]) 04/16/2024 Travel 04/15/2024 9:30 AM EST Clinical Support [address] [address] Sonali Stubbs, COREY Uncomplicated opioid dependence ([facility]) (Primary Dx) 04/15/2024 Travel 04/14/[address] [address] Gerda Gutierrez MA chartprep 04/14/2024 Orders Only GENERIC EXTERNAL DATA DEPARTMENT Provider, Generic External Data 04/13/2024 11:00 AM EST Office Visit [facility]ALK[facility] [address] [place] [phone] Breanna Das NP Cough in adult patient (Primary Dx); COPD with acute exacerbation ([facility]) 04/12/2024 Orders Only GENERIC EXTERNAL DATA DEPARTMENT Provider, Generic External Data 04/10/[address] [address] Kim Montez, COREY 2024 Refill [facility]INE [address] [place] [phone] Sonali Stubbs, COREY Uncomplicated opioid dependence ([facility]/HCC) 04/01/2024 Telephone [facility] MED[facility]INE [address] [place] [phone] Torrie Balderrama, COREY 03/29/2024 Orders Only GENERIC EXTERNAL DATA DEPARTMENT Provider, Generic External Data 03/21/2024 Refill [facility]INE [address] [place] [phone] Ananda Spain MD Chronic obstructive pulmonary disease, unspecified COPD type ([facility]/HCC) 03/18/2024 9:00 AM EST Clinical Support [facility] [address] [place] [address] Sonali Stubbs, COREY Uncomplicated opioid dependence (CMS/HCC) (Primary Dx); Tobacco dependence 03/18/2024 Travel 03/16/2024 Refill [facility] [address] [place] [address] Ananda Spain MD Type 2 diabetes mellitus with hyperglycemia, with long-term current use of insulin (CMS/HCC) 03/11/2024 Refill [facility] MED[facility]INE [address] [place] [address] Sonali Stubbs, COREY Uncomplicated opioid dependence (CMS/HCC) 03/11/2024 Telephone [facility] MEDICINE [address] [place] [address] Ananda Spain MD Durable Medical Equipment 03/08/2024 Refill [facility] [address] [place] [address] Ananda Spain MD Chronic obstructive pulmonary disease, unspecified COPD type (CMS/HCC) 03/05/2024 9:45 AM EST Office Visit [facility] OPTOMETRY [address] [place] [address] Natalie Davis, MADIE Type 2 diabetes mellitus without ophthalmic manifestations (CMS/HCC) (Primary Dx); Other specified disorders of choroid; Retinal scar of left eye; Regular astigmatism, bilateral; Reduced visual acuity 03/05/2024 Refill [facility] [address] [place] [address] Ananda Spain MD 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 Travel 02/28/2024 11:00 AM EST Office Visit [facility] MEDICINE [address] [place] [address] Ananda Spain MD Type 2 diabetes mellitus with hyperglycemia, with long-term current use of insulin (CMS/HCC) (Primary Dx); Chronic obstructive pulmonary disease, unspecified COPD type (CMS/HCC); Healthcare maintenance 02/28/2024 Telephone [facility] MED[facility]INE [address] [place] [address] Ananda Spain MD Durable Medical Equipment (wipes) 02/28/2024 Travel 02/27/2024 Travel 02/25/2024 Telephone [facility] MEDICINE [address] [place] [address] Crystal Stevens MA Chart Prep 02/19/2024 9:30 AM EST Office Visit [facility] MED[facility]INE [address] [place] [address] Latrice Ibrahim MD Uncomplicated opioid dependence (CMS/HCC) (Primary Dx) 02/19/2024 Travel 02/19/2024 Refill [facility] MED[facility]INE [address] [place] [address] Name, MD Ananda from Last 3 Months Immunizations Name Administration Dates Next Due Hep A, Adult 05/11/2009 Influenza injectable quadriv alent preservative free 01/21/2023,01/02/2022,02/10/2021,03/07,01/13/2019,01/11/2018 Influenza, Split (incl. aba fied surface antigen) 12/24/2012,11/06/2011 Influenza, seasonal, injecta ble, preservative free 11/20/2023 Mobile Pulse SARS-CoV-2 Vaccination 05/18/2020 Pfizer Covid-19 Vaccine 12+ [...] your housing situation today? I have rosaura sing 12/19/[address] you li [...] Pressure 126/82 04/16/2024 10:12 AM EST Pulse 88 05/13/2024 10:13 AM EDT Temperature 36.8 ??C (98.2 ??F) 04/16/2024 10:[address] Respiratory Rate 16 04/16/2024 10:12 AM EST Oxygen Saturation 98% 05/13/2024 10:13 AM EDT [...] Medication Management [facility] MED[facility]INE [address] [place] [address] Geeta Dove, PharmD [address] [place], [place] [phone] 06/04/2024 9:45 AM EDT Office Visit [facility] OPTOMETRY [address] [place] [address] Ryan Natalie, OD [address] [place] [address] 06/10/2024 9:30 AM EDT Clinical Support [facility] MEDICINE [address] [place] [address] Sonali Stubbs, COREY [address] [place] [address] 07/15/2024 10:45 AM EDT Office Visit [facility] MEDICINE [address] [place] [address] Name, MD Ananda [address] [place] [address] Health Maintenance Due Date Last Done Comments CT Colonography 1966 Dental Oral Exam 1966 Dental Prophylaxis 1966 Dental X-Ray: Bitewings 1966 Dental X-Ray: Full Mouth 1966 FIT DNA/Cologuard 1966 FIT 1966 FOBT 1966 Sigmoidoscopy 1966 Alcohol/Substance Use Screening 1978 Hepatitis B Vaccines (1 of 3 - 19+ 3-dose series) 1985 Zoster Vaccines (2 of 2) 03/08/2018 01/11/2018 [...] older (1 - 1-dose 75+ series) 2041 Hepatitis A Vaccines Aged Out 05/11/2009 No long er eligible based on patient's age to complete this topic Pneumococcal Vaccine: 50+ Years Completed 01/21/2023, 05/25/2011 [...] on patient's age to complete this topic Goals Goal Patient Goal Type Associated Problems Recent Progress Patient-Stated? Author Increase coping skills to promote long-term recovery and improve ability to perform daily activities General No Sonali Stubbs, landscaper Procedure Name Priority Date/Time Associated Diagnosis Comments GLUCOSE, WHOLE BLOOD Routine 05/19/2024 8:54 AM EDT POCT FARA-14 URINE DRUG SCREEN Routine 05/13/2024 9:43 AM EDT Uncomplicated opioid dependence (CMS/HCC) POCT GLYCATED HEMOGLOBIN, TOTAL Routine 04/16/2024 10:24 AM EST Type 2 diabetes mellitus with hyperglycemia, with long-term current use of insulin (CMS/HCC) POCT GLUCOSE Routine 04/16/2024 10:21 AM EST Type 2 diabetes mellitus with hyperglycemia, with long-term current use of insulin (CMS/[facility]) POCT FARA-14 URINE DRUG SCREEN Routine 04/15/2024 9:24 AM EST Uncomplicated opioid dependence (CMS/HCC) GLUCOSE, WHOLE BLOOD Routine 04/14/2024 9:22 AM [...] 9:38 AM EST Uncomplicated opioid dependence (CMS/HCC) LIPID [...] Recently Relevant to Health Maintenance Results * Glucose, Whole Blood (05/19/2024 8:54 AM EDT) Only the most recent of2 resultswithin the time period is included. Glucose, Whole Blood 90 60 - 115 mg/dL [facility] Comment:METER #: [id number] Testing performed in the Endocrinology Department [address], [address], [facility]. 05/19/2024 8:54 AM EDT 05/19/2024 8:59 AM EDT us Generic External Data Provider LAB BLOOD ORDERAB LES Final Result [facility] [address] [place] [phone] * POCT FARA-14 Urine Drug Screen (05/13/2024 9:43 AM EDT) Only the most recent of4 resultswithin the time period is included. THC [...] procedure / Unknown 05/13/2024 9:43 AM EDT us Latrice Ibrahim MD POINT OF CARE TEST ENTER/EDIT OR DERABLES Final Result * (ABNORMAL) POCT HGB A1C (04/16/2024 10:24 AM EST) Only the most recent of2 resultswithin the time period is included. Hemoglobin A1C 8.8(A) 4.0 - 6.0 % QC Media Lot # [id number] Lot# Expiration Date Blood 04/16/2024 10:2 4 AM EST Ananda Spain MD POINT OF CARE TEST ENTER/EDIT OR DERABLES Final Result * (ABNORMAL) POCT Glucose (04/16/2024 10:21 AM EST) Only the most recent of2 resultswithin the time period is included. Glucose Blood, POC 229(A) 60 - 200 mg/dL QC Media Lot # [id number] Lot# Expiration Date Blood Capillary blood specimen / Unknown 04/16/2024 10:21 AM EST us Ananda Spain MD POINT OF CARE TEST ENTER/EDIT OR DERABLES Final Result * Influenza B (ID NOW Rapid Molecular) (04/13/2024 11:34 AM EST) Influenza B Negative Negative, Indeterminate [facility] Swab 04/13/2024 11:3 4 AM EST us Breanna Das NP POINT OF CARE TEST ENTER/EDIT O RDERABLES Final Result [facility] [address] [place] [phone] * Influenza A (ID NOW Rapid Molecular) (04/13/2024 11:34 AM EST) Influenza A Negative Negative, Indeterminate [facility] Swab 04/13/2024 11:3 4 AM EST us Breanna Appram CANOE INSPECTOR FINAL POINT OF CARE TEST ENTER/EDIT O RDERABLES Final Result [facility] [address] [place] [address] [phone] * POCT Rapid COVID Ag (04/13/2024 11:33 AM EST) Pathologist [facility] Rapid COVID Ag Negative Swab 04/13/2024 11:3 3 AM EST us Breanna Appram CANOE INSPECTOR FINAL POINT OF CARE TEST ENTER/EDIT O RDERABLES Final Result * XR Chest 2 Views (04/12/2024 3:17 PM EST) Anatomical Region Laterality Modality Chest Radiographic Altagracia ging 04/12/2024 3:17 PM EST Narrative 04/12/2024 3:18 PM EST ? [facility] ?[address] ?[place] [address] ?XRay Report ? Signed ? Patient: Hubert Cruz ?MR#: ?? [id number] ? : 1965 ?Acct:[id number] ? Age/Sex: 59 / M ?ADM Date: 04/12/24 ? Loc: HO.ED ? Attending Dr: ? Ordering Physician: Pebbles Rooney HOT FRAME TENDER ?? Date of Service: 04/12/24 ?? Procedure(s): XR chest 2V ?? Accession Number(s): [id number] ? cc: Pebbles Rooney CNP; Name,Ananda CRANDALL ? CLINICAL HISTORY: SOB ? 2 view chest x-ray ? Comparison: CR - XR CHEST 03/29/24 11:18 EST ? Findings: ?? Small [...] by Kim Acuna MD in OV> ? 04/12/248 ? DD/ ? TD/TT: 04/12/24 1517 ? Night Warehouse Selector: ? Procedure Note Donotleonelainterpreter, Image - 04/12/[address] [address] XRay Report Signed Patient: Hubert Cruz MMR#: [id number] : 1965Acct:[id number] Age/Sex: 59 / MADM Date: 04/12/24 Loc: HO.ED Attending Dr: Ordering Physician: Pebbles Rooney CNP Date of Service: 04/12/24 Procedure(s): XR chest 2V Accession Number(s): [id number] cc: Pebbles Rooney CNP; Name,Ananda CRANDALL CLINICAL [...] Acuna MD in OV> 04/12/24 1518 DD/ 1517 TD/TT: 04/12/24 1517 Night Warehouse Selector: [facility] External Provider IMG XR PROCEDURES Edited Result - Final * High Sensitivity Troponin I (04/12/2024 2:06 PM EST) Only the most recent of2 resultswithin the time period is included. TROPONIN I HIGH SENSITIVITY 6.3 <3.5 - 35.0 ng/L [facility] Comment:The [place] high sens itivity Troponin-I results should beused in conjunction with other diagnostic information suchas ECG, clinical observations and information, and patientsymptoms to aid in the diagnosis of OR. 04/12/2024 2:06 PM EST 04/12/2024 2:09 PM EST Generic External Data Provider LAB BLOOD ORDERAB LES Final Result Performing Organization Address [facility]/ZIP Co de Phone Number [facility] [address] [place] [phone] * SARS-CoV-2 RNA, Influenza A/B, and RSV RNA, Ql NAAT (04/12/2024 2:06 PM EST) Only the most recent of2 resultswithin the time period is included. Influenza A PCR NEGATIVE Negative [facility] Influenza B PCR NEGATIVE Negative [facility] Resp Syncy Virus RNA Qual PCR NEGATIVE Negative [facility] SARS COV2 PCR NEGATIVE Negative [facility] Comment:All test results mus t [...] use by authorized laboratories.Testing performed on the [employer] GeneXpert utilizingreal-time RT-PCR.All SARS CoV2 and positive influenza A/B results arereported to [facility]. 04/12/2024 2:06 PM EST 04/12/2024 2:09 PM EST us Generic External Data Provider LAB MICROBIOLOGY - GENERAL ORDERABLES Final Result Performing Organization Address [facility]/ZIP Co de Phone Number [facility] [address] [place] [phone] * (ABNORMAL) CBC auto differential (04/12/2024 2:06 PM EST) Only the most recent of2 resultswithin the time period is included. White Blood Count 10.3 4.8 - 10.8 X10*3/uL [facility] Red Blood Count 4.64 4.60 - 5.80 X10*6/uL [facility] Hemoglobin 13.8(L) 14.0 - 18.0 g/dl [facility] Hematocrit 41.9(L) 42.0 - 52.0 % [facility] Mean Corpuscular Volume 90.3 80.0 - 98.0 fL [facility] Mean Corpuscular Hemoglobin 29.7 27.0 - 33.0 pg [facility] Mean Corpuscular HGB Conc 32.9 31.0 - 36.0 g/dl [facility] Red Cell Distribution Width 13.3 11.0 - 16.0 % [facility] Platelet Count 275 160 - 400 X10*3/uL [facility] Mean Platelet Volume 10.2 9.4 - 12.4 fL [facility] Neutrophils Percent Auto 60.6 45 - 73 % [facility] Imm Gran Pct Auto 0.2 0.0 - 0.4 % [facility] Lymphocytes Percent Auto 18.4(L) 20 - 40 % [facility] Monocytes Percent Auto 8.5 2 - 11 % [facility] Eosinophils Percent Auto 11.1(H) 0 - 4 % [facility] Basophils Percent Auto 1.2 0 - 2 % [facility] NRBC Pct Auto 0.0 0.0 - 0.2 /100WBC [facility] Neutrophils Absolute Auto 6.2 2.0 - 8.3 x10*3/uL [facility] Imm Gran Abs Auto 0.02 0.00 - 0.03 X10*3/uL [facility] Lymphocytes Absolute Auto 1.9 1.2 - 4.9 X10*3/uL [facility] Monocytes Absolute Auto 0.9 0.1 - 1.2 X10*3/uL [facility] Eosinophils Absolute Auto 1.1(H) 0.0 - 0.4 X10*3/uL [facility] Basophils Absolute Auto 0.1 0.0 - 0.2 X10*3/uL [facility] NRBC Abs Auto 0.000 0.0 - 0.012 X10*3/uL [facility] 04/12/2024 2:06 PM EST 04/12/2024 2:09 PM EST us Generic External Data Provider LAB BLOOD ORDERAB LES Final Result Performing Organization Address City/[facility]/ZIP Co de Phone Number [facility] [address] [place] [phone] * Prothrombin Time-INR (04/12/2024 2:06 PM EST) Only the most recent of2 resultswithin the time period is included. Prothrombin Time 11.3 10.9 - 12.4 SEC [facility] INTERNATIONAL NORM RATIO 1.0 0.9 - 1.1 [facility] Comment:INTERNATIONAL NORMAL IZED RATIO (INR) [...] ORDERAB LES Final Result Performing Organization Address City/[facility]/ZIP Co de Phone Number [facility] [address] [place] [phone] * B Type Natriuretic Peptide (BNP) (04/12/2024 2:06 PM EST) B Type Natriuretic Peptide 11 <100 pg/mL [facility] Comment:For those patients w ho are being treated with Natrecor(nesiritide, recombinant BNP), BNP testing should beperformed at least two hours post treatment in order toensure that only endogenous levels of BNP are detected. 04/12/2024 2:06 PM EST 04/12/2024 2:09 PM EST Generic External Data Provider LAB BLOOD ORDERAB LES Final Result Performing Organization Address [facility]/ZIP Co de Phone Number [facility] [address] [place] [phone] * Magnesium (04/12/2024 2:06 PM EST) Pathologist [facility] Magnesium 1.9 1.6 - 2.6 mg/dL [facility] 04/12/2024 2:06 PM EST 04/12/2024 2:09 PM EST Sold External Data Provider LAB BLOOD ORDERAB LES Final Result Performing Organization Address [facility] de Phone Number [facility] [address] [place] [phone] * (ABNORMAL) Comprehensive Metabolic Panel (04/12/2024 2:06 PM EST) Pathologist [facility] Sodium 141 135 - 145 mmol/L [facility] Potassium 4.3 3.3 - 5.1 mmol/L [facility] Chloride 102 96 - 108 mmol/L [facility] Carbon Dioxide 29 22 - 29 mmol/L [facility] Anion Gap 14 12 - 20 [facility] Urea Nitrogen (BUN) 18(H) 9 - 16 mg/dL [facility] Creatinine, Serum 0.95 0.5 - 1.4 mg/dL [facility] Creatinine Clr Calc Pharmacy 64.1 [facility] Comment:eGFR (calculated fro m the MDRD study equation) and eCrCl(calculated from the Cockcroft-Gault equation) are based ondifferent parameters and may not yield comparable results.If eCrCl result is absurd, please check patient'sheight/weight. Estimated Glomerular Filt Rate >60 [facility] Comment:Chronic Kidney Disea se: Estimated GFR < 60 mL/min/1.73i3Emctvt Kidney Disease: Estimated GFR < 15 mL/min/1.73m2 Glucose 227(H) 60 - 115 mg/dL [facility] Calcium 10.0 8.4 - 10.2 mg/dL [facility] Bilirubin, Total 0.9 0.0 - 1.0 mg/dL [facility] Aspartate Amino Transferase 30 5 - 37 U/L [facility] Alanine Aminotransferase 24 0 - 40 U/L [facility] Total Protein 7.7 6.5 - 8.0 g/dL [facility] Albumin Level 4.7 3.5 - 5.0 g/dL [facility] Alkaline Phosphatase 56 39 - 117 U/L [facility] 04/12/2024 2:06 PM EST 04/12/2024 2:09 PM EST us Generic External Data Provider LAB BLOOD ORDERAB LES Final Result [facility] [address] [place] [address] [phone] * XR Chest 1 View (03/29/2024 12:43 PM EST) Anatomical Region Laterality Modality Chest Radiographic Altagracia ging 03/29/2024 12:4 3 PM EST Narrative 03/29/2024 12:44 PM EST ? [facility] ?[address] ?[place] [address] ?XRay Report ? Signed ? Patient: Hubert Cruz ?MR#: ?? [id number] ? : 1965 ?Acct:[id number] ? Age/Sex: 58 / M ?ADM Date: 01/26/25 ? Loc: HO.ED ? Attending Dr: ? Ordering Physician: Tiffanie Ulloa NP ?? Date of Service: 03/29/24 ?? Procedure(s): XR chest 1V ?? Accession Number(s): [id number] ? cc: Name,Ananda CRANDALL; Tiffanie Ulloa NP ? CLINICAL HISTORY: cough, shortness of breath ? 1 view chest x-ray ? Comparison: CR/SR - XR CHEST 2V - 12/19/21 14:24 EDT ?? [place] [id number] - 02/26/19 13:51 EST ? Findings: ?? [...] DD/ 1243 ? TD/TT: 03/29/24 1243 ? Night Warehouse Selector: ? Procedure Note Mykenateleonelahair, Image - 03/29/2024 [place] [address] XRay Report Signed Patient: Hubert Cruz [facility]#: [id number] : 1965Acct:[id number] Age/Sex: 58 / MADM Date: 03/29/24 Loc: HO.ED Attending Dr: Ordering Physician: Tiffanie Ulloa NP Date of Service: 03/29/24 Procedure(s): XR chest 1V Accession Number(s): [id number] cc: Name,Ananda CRANDALL; Tiffanie Ulloa NP CLINICAL HISTORY: cough, shortness of breath 1 view chest x-ray Comparison: CR/SR - XR CHEST 2V - 12/19/21 14:[address] [id number] - 02/26/19 13:51 EST Findings: Overinflation and [...] 03/29/24 1244 DD/ 1243 TD/TT: 03/29/24 1243 Night Warehouse Selector: [facility] External Provider IMG XR PROCEDURES Edited Result - Final * (ABNORMAL) Hepatic Function Panel (03/29/2024 11:41 AM EST) Pathologist [facility] Bilirubin, Total 1.3(H) 0.0 - 1.0 mg/dL [facility] Bilirubin, Direct 0.4 0.0 - 0.5 mg/dL [facility] Aspartate Amino Transferase 22 5 - 37 U/L [facility] Alanine Aminotransferase 16 0 - 40 U/L [facility] Total Protein 7.8 6.5 - 8.0 g/dL [facility] Albumin Level 4.7 3.5 - 5.0 g/dL [facility] Alkaline Phosphatase 66 39 - 117 U/L [facility] 03/29/2024 11:4 1 AM EST 03/29/2024 11:44 AM EST Generic External Data Provider LAB BLOOD ORDERAB LES Final Result [facility] [address] [place] [address] [phone] * (ABNORMAL) Basic Metabolic Panel (03/29/2024 11:41 AM EST) Pathologist [facility] Sodium 139 135 - 145 mmol/L [facility] Potassium 4.9 3.3 - 5.1 mmol/L [facility] Chloride 103 96 - 108 mmol/L [facility] Carbon Dioxide 30(H) 22 - 29 mmol/L [facility] Anion Gap 11(L) 12 - 20 [facility] Urea Nitrogen (BUN) 15 9 - 16 mg/dL [facility] Creatinine, Serum 0.96 0.5 - 1.4 mg/dL [facility] Creatinine Clr Calc Pharmacy 65.6 [facility] Comment:eGFR (calculated fro m the MDRD study equation) and eCrCl(calculated from the Cockcroft-Gault equation) are based ondifferent parameters and may not yield comparable results.If eCrCl result is absurd, please check patient'sheight/weight. Estimated Glomerular Filt Rate >60 [facility] Comment:Chronic Kidney Disea se: Estimated GFR < 60 mL/min/1.11s8Cndgqq Kidney Disease: Estimated GFR < 15 mL/min/1.73m2 Glucose 203(H) 60 - 115 mg/dL [facility] Calcium 9.9 8.4 - 10.2 mg/dL [facility] 03/29/2024 11:4 1 AM EST 03/29/2024 11:44 AM EST us Generic External Data Provider LAB BLOOD ORDERAB LES Final Result Performing Organization Address City/[facility]/ZIP Co de Phone Number [facility] [address] [place] [phone] * Partial Thromboplastin Time, Activated (APTT) (03/29/2024 11:40 AM EST) Partial Thromboplastin Time 30.0 26.0 - 36.8 SEC [facility] Comment:For information rega rding the monitoring of direct thrombininhibitors, please refer to Pharmacy. 03/29/2024 11:4 0 AM EST 03/29/2024 11:44 AM EST us Generic External Data Provider LAB BLOOD ORDERAB LES Final Result Performing Organization Address City/[facility]/ZIP Co de Phone Number [facility] [address] [place] [phone] * OCT, Retina - OU - [...] 8:29 AM EDT) Triglycerides 76 <150 mg/dL [facility] Comment:Desirable Triglyceri de: less than 150 mg/dLBorderline High Triglyceride 150-199 mg/dLHigh Triglyceride: 200-499 mg/dLVery High Triglyceride: greater than or equal to 5OO mg/dL Cholesterol 189 <200 mg/dL [facility] Comment:Desirable Cholestero l: less than 200 mg/dLBorderline High Cholesterol: 200-239 mg/dLHigh Cholesterol: greater than 239 mg/dL LDL Cholesterol Calculated 82 <100 mg/dL [facility] Comment:Desirable LDL: less than 100 mg/dLNear Optimal/Above Optimal LDL: 110- 129 mg/dLBorderline High LDL: 130-159 mg/dLHigh LDL: 160-189 mg/dLVery High LDL: greater than or equal to 190 mg/dL HDL Cholesterol 92 >40 mg/dL [facility] Comment:Desirable HDL: great er than 40 mg/dL Note: This HDL assay may give artificially low results in patients with liver disease. 05/14/2023 8:29 AM EDT 05/14/2023 8:29 AM EDT us Generic External Data Provider LAB BLOOD ORDERAB LES Final Result Performing Organization Address [facility] Co de Phone Number [facility] [address] [place] [phone] * Albumin, Random Urine W/Creatinine (05/14/2023 8:16 AM EDT) Creatinine, Urine 156.10 mg/dL [facility] Microalbumin Urine 45.0 mg/L [facility] Microalbum Creatinine Ratio Ur 28.8 <30 ug/mg cr [facility] Comment:Albumin/Creatinine R atio Reference Ranges: Normal: < 30 ug/mg creatinine Microalbuminuria: 30 - 300 ug/mg creatinineClinical Albuminuria: > 300 ug/mg creatinine 05/14/2023 8:16 AM EDT 05/14/2023 9:26 AM EDT us Generic External Data Provider LAB URINE ORDERAB LES Final Result Performing Organization Address [facility] Co de Phone Number [facility] [address] [place] [phone] * (ABNORMAL) Hepatitis C Antibody with Reflex to HCV, RNA, Quantitative, Real- Time PCR (03/29/2023 9:12 AM EST) Hepatitis C Antibody Reactive( A) Nonreactive [facility] Comment:Presumptive evidence of antibodies to HCV. 03/29/2023 9:12 AM EST 03/29/2023 11:11 AM EST us Latrice Ibrahim MD LAB BLOOD ORDERABLES Final Resul t Performing Organization Address [facility] Co de Phone Number [facility] [address] [place] [phone] * HIV-1/2 Antigen and Antibodies, Fourth Generation, with Reflexes (03/29/2023 9:12 AM EST) HIV AB/AG Nonreactive Nonreactive [facility] Comment:HIV-1 p24 Ag and/or HIV-1/HIV-2 Ab not detected.A test result that is nonreactive does not exclude thepossibility of exposure to or infection with HIV-1 and/orHIV-2. Nonreactive results in this assay for individualswith prior exposure to HIV-1 and/or HIV-2 may be due toantigen and antibody levels that are below the limit ofdetection of this assay.The [employer] HIV Ag/Ab Combo assay result andsupplemental assay results should be interpreted inconjunction with the patient's clinical presentation,history and other laboratory results. If the results areinconsistent with clinical evidence, additional testing issuggested to confirm the result. 03/29/2023 9:12 AM EST 03/29/2023 11:11 AM EST Latrice Ibrahim MD LAB BLOOD ORDERABLES Final Resul t [facility] [address] [place] [phone] * Hm Colonoscopy (08/16/2015 1:52 PM EDT) Colonoscopy Normal Normal Narrative Gloria Álvarez - 08/16/2015 1:52 PM EDT Recommended 10 year follow up Historical Provider HEALTH MAINTENANCE Final Result from Last 3 Months or Most Recently Relevant to Health Maintenance Insurance [facility] Care Teams Construction Lineman Relationship Specialty Start Date End Date Name, MD Ananda [address] [place] [address] PCP - General Family Medicine 06/01/15
--- OUTSIDE RECORDS SUMMARY | 2024-05-19 09:01 | XMS_ITS | Encounter Summary ---
Author Organization [employer] Address [address] [place] [address] Care Team Providers Care Aquarist Name Role Phone Name, Ananda CRANDALL Primary Care Provider [phone] Reason for Visit * Reason Onset Date Comments case in lab 10/03/2022 Encounter Details Date Type Department Care Team ([facility] st Contact Info) Description 10/03/2022 Telephone [facility] [address] [place] [address] Kelvin Haque, DDS [address] [place] [address] case in lab Social History Tobacco Use [...] - 10/03/2022 2:29 PM EDT Hubert from [employer] called in noel that the soonest they can get case back in to office would be 10/10. They stated it is 5 business days and does not include drop off or greens picker date. Confirmed with Hubert that as of yet appt has not been scheduled to return and that I would inform officeDR documented in this encounter Plan of Treatment Upcoming Encounters Date Type Department Care Team (Late st Contact Info) Description 06/01/2024 9:00 AM EDT Medication Management [facility] [address] [place] [address] Geeta Dove PharmD [address] [place] [address] 06/04/2024 9:45 AM EDT Office Visit [facility] [address] [place] [address] Natalie Davis, OD [address] [place] [address] 06/10/2024 9:30 AM EDT Clinical Support [address] [address] Sonali Stubbs, RN [address] [place] [address] 07/15/2024 10:45 AM EDT Office Visit [facility] [address] [place] [address] Name, MD Ananda [address] [place] [address] documented as of this encounter Visit Diagnoses Not on filedocumented in this encounter Additional Health Concerns Assessment Noted Time PHQ-9 Depression Total Score: 3 10/04/19 23 2:21 PM EDT documented as of this encounter Care Teams Aquarist Relationship Specialty Start Date End Date Name, MD Ananda [address] [place] [address] PCP - General Family Medicine 06/01/15 documented as of this encounter
--- OUTSIDE RECORDS SUMMARY | 2024-05-19 09:01 | XMS_ITS | Encounter Summary ---
Author Organization [employer] Address [address] [place] [address] Care Team Providers Care Sheet Finisher Name Role Phone Name, Ananda CRANDALL Primary Care Provider [phone] Encounter Details Date Type Department Care Team (Latest Contact Info) Description 01/09/2021 Abstract [facility] CONVERSIONS Dental, Provider, DDS Social History Tobacco [...] Care Team ( st Contact Info) Description 06/01/2024 9:00 AM EDT Medication Management [facility] MEDICINE [address] [place] [address] Geeta Dove, PharmD [address] [place] [address] 06/04/2024 9:45 AM EDT Office Visit [facility] OPTOMETRY [address] [place] [address] Natalie Davis OD [address] [place] [address] 06/10/2024 9:30 AM EDT Clinical Support [facility] MEDICINE [address] [place] [address] Sonali Stubbs, COREY [address] [place] [address] 07/15/2024 10:45 AM EDT Office Visit [facility] MEDICINE [address] [place] [address] Name, MD Ananda [address] [place] [address] documented as of this encounter Visit Diagnoses Not on filedocumented in this encounter Care Teams Sheet Finisher Relationship Specialty Start Date End Date Name, MD Ananda [address] [place] [address] PCP - General Family Medicine 06/01/15 documented as of this encounter
--- OUTSIDE RECORDS SUMMARY | 2024-05-19 09:01 | XMS_ITS | Encounter Summary ---
Author Organization [employer] Address [address] [facility] [address] [address] [place] [address] Care Team Providers Care Casino Floor Supervisor Name Role Phone Name, Ananda CRANDALL Primary Care Provider [phone] Reason for Visit * Reason Onset Date Comments Appointment 09/06/2022 Encounter Details Date Type Department Care Team ([facility] Contact Info) Description 09/06/2022 Telephone [facility] ADULT DENTAL [address] [place], [place] [phone] Kelvin Haque, LENNY [address] [place] [address] Appointment Social History Tobacco Use Types Packs/Day [...] Medication Management [facility] MEDICINE [address] [place] [address] Geeta Dove, PharmD [address] [place] [address] 06/04/2024 9:45 AM EDT Office Visit [facility] OPT[facility] [address] [place] [address] Natalie Davis, OD [address] [place] [address] 06/10/2024 9:30 AM EDT Clinical Support [address] [address] Sonali Stubbs, RN [address] [place] [address] 07/15/2024 10:45 AM EDT Office Visit [address] [address] Name, MD Ananda [address] [place] [address] documented as of this encounter Visit Diagnoses Not on filedocumented in this encounter Care Teams Casino Floor Supervisor Relationship Specialty Start Date End Date Name, MD Ananda [address] [place] [address] PCP - General Family Medicine 06/01/15 documented as of this encounter
--- OUTSIDE RECORDS SUMMARY | 2024-05-19 09:02 | XMS_ITS | Encounter Summary ---
Author Organization [employer] Address [address] 7[address] [place] [address] Care Team Providers Care Belt Polisher Name Role Phone Name, Ananda CRANDALL Primary Care Provider Encounter Details Date Type Department Care Team ([facility] Contact Info) Description 08/13/2022 Abstract [facility] [address] [place] [address] [phone] Name, MD Ananda [address] [place] [address] Social History Tobacco Use Types Packs/Day Years [...] Department Care Team ([facility] Contact Info) Description 06/01/2024 9:00 AM EDT Medication Management [facility] [address] [place] [address] [phone] Geeta Dove, PharmD [address] [place], [place] [phone] 06/04/2024 9:45 AM EDT Office Visit [facility] [address] [place] [address] Natalie Davis, OD [address] [place] [address] 06/10/2024 9:30 AM EDT Clinical Support [facility] [address] [place] [address] Sonali Stubbs, RN [address] [place] [address] 07/15/2024 10:45 AM EDT Office Visit [facility] [address] [place] [address] Name, MD Ananda [address] [place] [address] documented as of this encounter Procedures Procedure [...] on filedocumented in this encounter Care Teams Belt Polisher Relationship Specialty Start Date End Date Name, MD Ananda [address] [place] [address] PCP - General Family Medicine 06/01/15 documented as of this encounter
--- OUTSIDE RECORDS SUMMARY | 2024-05-19 09:02 | XMS_ITS | Encounter Summary ---
Author Organization [employer] Address [address] [place] [address] Care Team Providers Care Candy Cooker Helper Name Role Phone Name, Ananda CRANDALL Primary Care Provider [phone] Reason for Visit * Reason Onset Date Comments ER Follow-up 09/26/2022 Encounter Details Date Type Department Care Team ([facility] st Contact Info) Description 09/26/2022 Telephone [facility] MEDICINE [address] [place], [place] [phone] Name, MD Ananda [address] [place] [address] ER Follow-up Social History Tobacco Use Types [...] to pt. Through pacific interpreters id - [id number] for below message, pt. 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 [facility] hours are reviewed. * Telephone Encounter - Hawa Morales - 10/01/2022 9:35 AM EDT Tc from pt returning call regarding message below. Please contact pt at [phone] (kuwaiti speaker) * Telephone Encounter - Em Leblanc RN - 09/27/2022 3:29 PM EDT T/C to pt. On [phone] through [employer] id - [id number] for status check and to schedule follow up apt. No answer. LVM to call back on [phone]. * Telephone Encounter - Netta Alvares - 09/26/2022 11:04 AM EDT Tc from pt calling to advise PCP of an ER visit to [facility] on 09/24/22 for surgery on the left leg. Pt advised will forward to team nurse for f/u. Please contact pt at [phone] (Austrian) documented in this encounter Plan of Treatment Upcoming Encounters Date Type Department Care Team ([facility] st Contact Info) Description 06/01/2024 9:00 AM EDT Medication Management [facility] MEDICINE [address] [place] [phone] Geeta Dove, PharmD [address] [place] [address] 06/04/2024 9:45 AM EDT Office Visit [facility] OPT[facility] [address] [place] [address] Natalie Davis, OD [address] [place] [address] 06/10/2024 9:30 AM EDT Clinical Support [address] [address] Sonali Stubbs, COREY [address] [place] [address] 07/15/2024 10:45 AM EDT Office Visit [facility] MEDICINE [address] [place] [address] Name, MD Ananda [address] [place] [address] documented as of this encounter Visit Diagnoses Not on filedocumented in this encounter Care Teams Candy Cooker Helper Relationship Specialty Start Date End Date Ananda Spain MD [address] [place] [address] PCP - General Family Medicine 06/01/15 documented as of this encounter
--- OUTSIDE RECORDS SUMMARY | 2024-05-19 09:02 | XMS_ITS | Encounter Summary ---
Author Organization [employer] Address [address] [place] [address] Care Team Providers Care Eeo Officer Name Role Phone Name, Ananda CRANDALL Primary Care Provider [phone] Reason for Visit * Reason Onset Date Comments Durable Medical Equipment 06/08/2022 Encounter Details Date Type Department Care Team ([facility] st Contact Info) Description 06/08/2022 Telephone [facility] [address] [place], [place] [phone] Name, MD Ananda [address] [place] [address] Durable Medical Equipment Social History Tobacco Use [...] states unable to get a hold of it coordinator and would like to know if PCP can send script directly to [facility] . Please contact at [phone] * Telephone Encounter - Arleen Ramirez - 06/11/2022 11:28 AM EDT TC to patient and informed him to contact his nurse healthcare manager as a script for a recliner was emailed to her previously. Patient understood and agreed with plan. * Telephone Encounter - Darian Joiner - 06/08/2022 4:29 PM EDT Tc from pt requesting a script for a recliner chair to be send to [facility] please contact pt at [phone] documented in this encounter Plan of Treatment Upcoming Encounters Date Type Department Care Team (Late st Contact Info) Description 06/01/2024 9:00 AM EDT Medication Management [facility] [address] [place] [address] Geeta Dove, PharmD [address] [place] [address] 06/04/2024 9:45 AM EDT Office Visit [facility] [address] [place] [address] Natalie Davis OD [address] [place] [address] 06/10/2024 9:30 AM EDT Clinical Support [facility] [address] [place] [phone] Sonali Stubbs, COREY [address] [place] [address] 07/15/2024 10:45 AM EDT Office Visit [address] [address] Name, MD Ananda [address] [place] [address] documented as of this encounter Visit Diagnoses Not on filedocumented in this encounter Care Teams Eeo Officer Relationship Specialty Start Date End Date Name, MD Ananda 230 [place] [address] PCP - General Family Medicine 06/01/15 documented as of this encounter
--- OUTSIDE RECORDS SUMMARY | 2024-05-19 09:02 | XMS_ITS | Encounter Summary ---
Author Organization [employer] Address [address] [place] [address] Care Team Providers Care Aeronautical Project Engineer Name Role Phone Name, Ananda CRANDALL Primary Care Provider [phone] Reason for Visit * Reason Comments Med Refill Encounter Details Date Type Department Care Team ([facility] Contact Info) Description 12/11/2023 Refill [facility] MEDICINE [address] [place], [place] [phone] Name, MD Ananda [address] [place] [address] Type 2 diabetes mellitus without complication, unspecified whether terminal gauger insulin use ([facility]) Social History Tobacco [...] Description 06/01/2024 9:00 AM EDT Medication Management [facility] MEDICINE [address] [place] [address] Geeta Dove PharmD [address] [place] [address] 06/04/2024 9:45 AM EDT Office Visit [facility] [address] [place] [address] Natalie Daivs, OD [address] [place] [address] 06/10/2024 9:30 AM EDT Clinical Support [facility] MEDICINE [address] [place] [address] Sonali Stubbs, RN [address] [place] [address] 07/15/2024 10:45 AM EDT Office Visit [facility] MEDICINE [address] [place] [address] Name, MD Ananda [address] [place] [address] documented as of this encounter Visit Diagnoses Diagnosis Type 2 diabetes mellitus without complication, unspecified whether fpc insulin use ([facility]) documented in this encounter Additional Health Concerns Assessment Noted Time PHQ-9 Depression Total Score: 10 024 9:15 AM EDT documented as of this encounter Care Teams Aeronautical Project Engineer Relationship Specialty Start Date End Date Name, MD Ananda [address] [place] [address] PCP - General Family Medicine 06/01/15 documented as of this encounter
--- OUTSIDE RECORDS SUMMARY | 2024-05-19 09:02 | XMS_ITS | Encounter Summary ---
Author Organization [employer] Address [address] [address] [facility] [address] 7[address] [place] [address] Care Team Providers Care Legal Writing Professor Name Role Phone Name, Ananda CRANDALL Primary Care Provider [phone] Reason for Visit * Reason Comments Med Refill Encounter Details Date Type Department Care Team ([facility] st Contact Info) Description 09/19/2023 Refill [facility] MED & PEDS [address] [place], [place] [phone] Name, MD Ananda [address] [place] [address] Pain of left leg Social History Tobacco [...] Description 06/01/2024 9:00 AM EDT Medication Management [facility] MEDICINE [address] [place] [address] Geeta Dove, LoretoD [address] [place] [address] 06/04/2024 9:45 AM EDT Office Visit [facility] OPTOMETRY [address] [place] [address] Natalie Davis, OD [address] [place] [address] 06/10/2024 9:30 AM EDT Clinical Support [facility] MEDICINE [address] [place] [address] Sonali Stubbs, COREY [address] [place] [address] 07/15/2024 10:45 AM EDT Office Visit [facility] MEDICINE [address] [place] [address] Name, MD Ananda [address] [place] [address] documented as of this encounter Visit Diagnoses Diagnosis Pain of left leg documented in this encounter Additional Health Concerns Assessment Noted Time PHQ-9 Depression Total Score: 10 024 9:15 AM EDT documented as of this encounter Care Teams Legal Writing Professor Relationship Specialty Start Date End Date Name, MD Ananda [address] [place] [address] PCP - General Family Medicine 06/01/15 documented as of this encounter
--- OUTSIDE RECORDS SUMMARY | 2024-05-19 09:02 | XMS_ITS | Encounter Summary ---
Author Organization [employer] Address [address] [facility] [address] 7t [place] [address] Care Team Providers Care Robotics Testing Technician Name Role Phone Name, Ananda CRANDALL Primary Care Provider [phone] Reason for Visit * Reason Comments Med Refill Encounter Details Date Type Department Care Team ([facility] Contact Info) Description 06/07/2022 Refill [facility] [address] [place], [place] [phone] Sebastián Graves MD [address] [place], [place] [phone] Pain of left leg Social History Tobacco [...] Upcoming Encounters Date Type Department Care Team ([facility] Contact Info) Description 06/01/2024 9:00 AM EDT Medication Management [facility] MEDICINE [address] [place] [address] Geeta Dove PharmD [address] [place] [address] 06/04/2024 9:45 AM EDT Office Visit [facility] OPTOMETRY [address] [place] [address] Ryan Natalie, OD [address] [place] [address] 06/10/2024 9:30 AM EDT Clinical Support [facility] MEDICINE [address] [place] [address] Sonali Stubbs, RN [address] [place] [address] 07/15/2024 10:45 AM EDT Office Visit [facility] MEDICINE [address] [place] [address] Name, MD Ananda [address] [place] [address] documented as of this encounter Visit Diagnoses Diagnosis Pain of left leg documented in this encounter Care Teams Robotics Testing Technician Relationship Specialty Start Date End Date Name, MD Ananda [address] [place] [address] PCP - General Family Medicine 06/01/15 documented as of this encounter
== END 2024-05-19 09:06 | disposition home or self-care (01) ==
LOC: HO.ENCR 08:41
PROVIDERS: PCP Internal Medicine Geriatric Medicine; Visit Provider Nurse Practitioner Adult Health
DX: E13.9 Other specified diabetes mellitus without complications (principal)
CPT/HCPCS: 99213; G2211

== ENCOUNTER → 2024-05-19 08:41 | Outpatient (BNVA) | payer OTHER, SELFPAY | PROVIDERS: PCP Internal Medicine Geriatric Medicine; Visit Provider Nurse Practitioner Adult Health | DX: E13.9 Other specified diabetes mellitus without complications (principal); Z79.4 Long term (current) use of insulin; Z79.899 Other long term (current) drug therapy | CPT/HCPCS: 82947; 83036; 99212 ==

== ENCOUNTER 2024-05-27 08:18 | Outpatient (REF) | payer OTHER, SELFPAY ==
[2024-05-27 08:41] LABS: MANUAL DIFF FLAG NO
[2024-05-27 09:29] LABS: Basophils Absolute Auto 0.1 X10*3/uL (0.0-0.2); Basophils Percent Auto 1.2 % (0-2); Eosinophils Absolute Auto 0.6 X10*3/uL (0.0-0.4); Eosinophils Percent Auto 6.6 % (0-4); Hematocrit 41.9 % (42.0-52.0); Hemoglobin 13.7 g/dl (14.0-18.0); Imm Gran Abs Auto 0.02 X10*3/uL (0.00-0.03); Imm Gran Pct Auto 0.2 % (0.0-0.4); Lymphocytes Absolute Auto 3.6 X10*3/uL (1.2-4.9); Mean Corpuscular HGB Conc 32.7 g/dl (31.0-36.0); Mean Corpuscular Hemoglobin 29.4 pg (27.0-33.0); Mean Corpuscular Volume 89.9 fL (80.0-98.0); Mean Platelet Volume 10.8 fL (9.4-12.4); Monocytes Absolute Auto 0.9 X10*3/uL (0.1-1.2); Monocytes Percent Auto 10.4 % (2-11); Neutrophils Absolute Auto 3.2 x10*3/uL (2.0-8.3); Neutrophils Percent Auto 38.6 % (45-73); Platelet Count 270 X10*3/uL (160-400); Red Blood Count 4.66 X10*6/uL (4.60-5.80); Red Cell Distribution Width 14.6 % (11.0-16.0); White Blood Count 8.3 X10*3/uL (4.8-10.8)
[2024-05-27 09:35] LABS: Estimated Average Glucose 192 mg/dL; Hemoglobin A1c % 8.3 % (<6.0)
[2024-05-27 10:26] LABS: Alanine Aminotransferase 28 U/L (0-40); Albumin Level 4.7 g/dL (3.5-5.0); Alkaline Phosphatase 55 U/L (39-117); Anion Gap 11 (12-20); Aspartate Amino Transferase 38 U/L (5-37); Bilirubin Total 1.3 mg/dL (0.0-1.0); Blood Urea Nitrogen 14 mg/dL (9-16); Calcium 10.2 mg/dL (8.4-10.2); Carbon Dioxide 30 mmol/L (22-29); Chloride 109 mmol/L (96-108); Cholesterol 221 mg/dL (<200); Estimated Glomerular Filt Rate > 60; HDL Cholesterol 132 mg/dL (>40); LDL Cholesterol Calculated 75 mg/dL (<100); Potassium 3.6 mmol/L (3.3-5.1); Sodium 146 mmol/L (135-145); Total Protein 7.3 g/dL (6.5-8.0); Triglycerides 73 mg/dL (<150)
[2024-05-27 10:33] LABS: HBS Num1 10.11 mIU/mL (0-7.99); HBsAGNum1 0.36 S/CO (0.00-0.99); Hepatitis B Surface Antigen Negative (Negative)
[2024-05-27 10:36] LABS: Glucose Random 46 mg/dL (60-115); Hepatitis A Antibody IgG REACTIVE (Nonreactive); ~Hepatitis A Antibody IgG 11.26 S/CO (0.00-0.99)
[2024-05-27 11:58] LABS: HBS Num2 12.15 mIU/mL (0-7.99); HBS Num3 12.18 mIU/mL (0-7.99); ~Hepatitis B Surface Antibody REACTIVE (Nonreactive)
== END 2024-05-27 08:19 | disposition home or self-care (01) ==
LOC: HO.LAB 08:18
PROVIDERS: Urology; Absent Provider Nurse Practitioner Adult Health; PCP Internal Medicine Geriatric Medicine; Visit Provider Internal Medicine Geriatric Medicine
DX: E11.65 Type 2 diabetes mellitus with hyperglycemia (principal); J44.9 Chronic obstructive pulmonary disease, unspecified; Z79.4 Long term (current) use of insulin
CPT/HCPCS: 36415; 80053; 80061; 83036; 85025; 86706; 86708; 87340

== ENCOUNTER 2024-05-28 09:08 | Outpatient (AMB) | payer OTHER, SELFPAY ==
--- NOTE | 2024-05-28 09:41 | A.OFFVIS_ITS ---
VS Expanded 05/28/24 09:42 Height 5 ft 6 in Weight 125 lb 3.561 oz BMI 20.2 Intake Visit Reasons: Type 1 DM Allergies No Known Allergies Allergy (Verified 05/08/24 13:22) Nutrition Presentation Details: Pt present for MNT for T1DM Last nutrition visit in 2021 Pt reports having 3 meals/day and a glucerna shake with each meal Reports taking insulin according to sliding scale prescribed by remediation technician specialist Pt reports sometimes having low blood glucose after the meal - related to reducing portion sizes due to elevated blood glucose prior to the meal. Pt was advised to not reduce portion sizes but keep consistent in,the amount of food as he continues to follow the sliding scale, to prevent low blood glucose. food frequency fruits: 1/d or fruit juice 1-2 /d dairy : 2 serving a day mostly at bedtime fish: 0-1/wk starches > 20 ve/d Pt reports having 3 meals/day B: pancake and scrambled eggs, milk L: sandwich or burger amanda meal burger/fries/soda D:dinner: rice/beans/chicken , or fish, Has glucerna shakes with each meal hypoglycemia denies constipation/diarrhea: denies snack: cheerios with milk or small pizza or fried wing BS Monitoring Most Recent Diabetes Results: Microalb/Creat Ratio 11.8 ug/mg cr (<30) 05/29/24 Cholesterol 221 mg/dL (<200) H 05/27/24 HDL Cholesterol 132 mg/dL (>40) 05/27/24 Triglycerides 73 mg/dL (<150) 05/27/24 Creatinine 0.73 mg/dL (0.5-1.4) 05/27/24 Blood Urea Nitrogen 14 mg/dL (9-16) 05/27/24 Sodium 146 mmol/L (135-145) H 05/27/24 Potassium 3.6 mmol/L (3.3-5.1) 05/27/24 Chloride 109 mmol/L (96-108) H 05/27/24 Carbon Dioxide 30 mmol/L (22-29) H 05/27/24 Calcium 10.2 mg/dL (8.4-10.2) 05/27/24 AST 38 U/L (5-37) H 05/27/24 ALT 28 U/L (0-40) 05/27/24 Total Protein 7.3 g/dL (6.5-8.0) 05/27/24 Albumin 4.7 g/dL (3.5-5.0) 05/27/24 MMW-Mehqdhp-Fi.Chelsy Equation Height: 5 ft 6 in Weight: 125 lb Resting Metabolic Rate: 1333.81 Calculated Activity Level: Heavy Activity Calories Needed to Maintain Weight: 2267.48 PFSH Medical History (Updated 05/11/24 @ 13:15 by Chanel Thomas NP) Anxiety Tubular adenoma of colon History of pancreatitis Seborrheic dermatitis Mood disorder 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 pylori infection GERD (gastroesophageal reflux disease) Abdominal wall bulge Vitamin D deficiency HLD (hyperlipidemia) HTN (hypertension) T2DM (type 2 diabetes mellitus) Surgical History History of surgery Hx of hernia repair Hx of prior ablation treatment Hx of partial nephrectomy Hx of colonoscopy History of esophagogastroduodenoscopy (EGD) Family History Father Liver cancer Diabetes Alcohol abuse Mother Diabetes Breast cancer Social History (Updated 05/08/24 @ 13:25 by Yarelis Naqvi LPN) Household Members: None Unable to assess alcohol history related to: Unknown Patient Tobacco Use Status: Current everyday Tobacco user Tobacco use type: Cigarette Cigarettes Per Day: 3 Assessment & Plan Assessment & Plan (1) Type 1.5 diabetes, managed as type 1: Code(s): E13.9 - Other specified diabetes mellitus without complications Category: Medical Plan: Wt: 57 Kg ( 05/26 ) Est kcal needs as per MSJ: 2300 (+ 1000 to prevent weight loss) (40% carb, 30% protein/fat) Est fluid needs as per 25-30 ml/d: 1800 Est prot per day as per 1 g/kg bw: 60 Recommend fiber intake : 8-10 g per day and gradually increase to 25-28 g per day for women and 35-38 g for men or as tolerated Recommend sodium intake per day : less than 2000 mg Educated patient on: ( R = reviewed V = verbalizes understanding N/R = needs review N/A = not applicable * Food sources of carbohydrate, adequate serving sizes and its role in various health conditions: R * Differences between complex carbohydrates a simple carbohydrates, role of fiber in diet: R V N/R * Lean protein sources of foods: R V NR * Differences between types of fats and role in diet (mono on saturated fat fatty acids, saturated fatty acids, trans fats): R V N/R * Food sources of sodium in salt and healthy modifications for heart health in kidney health: R V R/V * Vitamins and minerals: R V N/R * Healthy plate method concept: R V N/R * Physical activity: Benefits a precaution: R V N/R * Hypoglycemia protocol (rule of 15): R * Dietary prevention of Hyperglycemia: R V R/V Patient Instructions: Continue with a consistent amount of portions, do not reduce portion sizes of food, to prevent low blood sugar Add 1-2 servings of lean protein at dinner time Coding Level of Care Code Nutr Indiv Intake (90706) Diagnoses Type 1.5 diabetes, managed as type 1 E13.9 Time Spent (min) 30
[2024-05-28 09:42] VITALS: BMI 20.2
[2024-06-02 12:54] VITALS: BMI 20.2
== END 2024-05-28 09:55 | disposition home or self-care (01) ==
LOC: HO.ENCR 09:09
PROVIDERS: PCP Internal Medicine Geriatric Medicine; Visit Provider Dietitian, Registered
DX: E13.9 Other specified diabetes mellitus without complications (principal)

== ENCOUNTER → 2024-05-28 09:08 | Outpatient (BNVA) | payer OTHER, SELFPAY | PROVIDERS: PCP Internal Medicine Geriatric Medicine; Visit Provider Dietitian, Registered | DX: E13.9 Other specified diabetes mellitus without complications (principal); Z71.3 Dietary counseling and surveillance | CPT/HCPCS: 97802 ==

== ENCOUNTER 2024-05-29 08:36 | Outpatient (REF) | payer OTHER, SELFPAY ==
[2024-05-29 10:17] LABS: Creatinine Urine 126.68 mg/dL; Microalbum/Creatinine Ratio Ur 11.8 ug/mg cr (<30)
== END 2024-05-29 08:37 | disposition home or self-care (01) ==
LOC: HO.LAB 08:36
PROVIDERS: PCP Internal Medicine Geriatric Medicine; Visit Provider Nurse Practitioner Adult Health
DX: E13.9 Other specified diabetes mellitus without complications (principal)
CPT/HCPCS: 82043; 82570

== ENCOUNTER 2024-06-09 11:13 | Outpatient (AMB) | payer OTHER, SELFPAY ==
--- NOTE | 2024-06-09 11:18 | MHC.AMDMED ---
Intake Intake Visit Reasons: DM [place] Guide Required: Yes [place] Guide Language: Copper Plate Lithographer Name: Casey [phone] Accompanied by: Self / Same As Patient Allergies No Known Allergies Allergy (Verified 05/08/24 13:22) HPI Comprehensive Diabetes Asmnt Most Recent Diabetes Results: Hemoglobin A1c 8.6 % 04/29/19 Microalb/Creat Ratio 11.8 ug/mg cr (<30) 05/29/24 Cholesterol 221 mg/dL (<200) H 05/27/24 HDL Cholesterol 132 mg/dL (>40) 05/27/24 Triglycerides 73 mg/dL (<150) 05/27/24 Creatinine 0.73 mg/dL (0.5-1.4) 05/27/24 Blood Urea Nitrogen 14 mg/dL (9-16) 05/27/24 Sodium 146 mmol/L (135-145) H 05/27/24 Potassium 3.6 mmol/L (3.3-5.1) 05/27/24 Chloride 109 mmol/L (96-108) H 05/27/24 Carbon Dioxide 30 mmol/L (22-29) H 05/27/24 Calcium 10.2 mg/dL (8.4-10.2) 05/27/24 AST 38 U/L (5-37) H 05/27/24 ALT 28 U/L (0-40) 05/27/24 Total Protein 7.3 g/dL (6.5-8.0) 05/27/24 Albumin 4.7 g/dL (3.5-5.0) 05/27/24 PFSH Medical History (Updated 05/11/24 @ 13:15 by Chanel Thomas NP) Anxiety Tubular adenoma of colon History of pancreatitis Seborrheic dermatitis Mood disorder 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 pylori infection GERD (gastroesophageal reflux disease) Abdominal wall bulge Vitamin D deficiency HLD (hyperlipidemia) HTN (hypertension) T2DM (type 2 diabetes mellitus) Surgical History History of surgery Hx of hernia repair Hx of prior ablation treatment Hx of partial nephrectomy Hx of colonoscopy History of esophagogastroduodenoscopy (EGD) Family History Father Liver cancer Diabetes Alcohol abuse Mother Diabetes Breast cancer Social History (Updated 05/08/24 @ 13:25 by Yarelis Naqvi LPN) Household Members: None Unable to assess alcohol history related to: Unknown Patient Tobacco Use Status: Current everyday Tobacco user Tobacco use type: Cigarette Cigarettes Per Day: 3 Assessment & Plan Assessment & Plan (1) Type 1.5 diabetes, managed as type 1: Code(s): E13.9 - Other specified diabetes mellitus without complications Plan: Personal Continuous Glucose Monitor: Patients CGM information reviewed, Patient is experiencing postprandial hypoglycemia Patient reports that he is taking Tresiba U 100 11 units daily He received new sliding scale at last visit with provider, however he reports he has only been taking NovoLog 8 units before meals He reports that he takes NovoLog prior to meal, and never takes more than 8 units. Reviewed with patient action of Tresiba and of NovoLog Reduce patient's sliding scale that he was given at last visit, asked him to follow-up for the next 14 days He will return to educator senior clinical for glucose review. At next visit we will insulin pump therapy Patient agreed to plan Instructed patient to contact educator senior clinical?with questions or concerns Pt able to insert sensor independently at home without issue.? Portions of this note were created using voice recognition software, please excuse any words or phrases that may have been misinterpreted. Patient Instructions: New dosing: Tresiba 11 units NovoLog 80-150 4 units 151-200 5 units 201-250 6 units 251-300 7 units over 300 8 units Coding Level of Care Code Est Pt Level 1 (44279) Diagnoses Type 1.5 diabetes, managed as type 1 E13.9
--- OUTSIDE RECORDS SUMMARY | 2024-06-09 13:44 | XMS_ITS | Encounter Summary ---
Author Organization [employer] Address [address] [facility] [facility] [address] [place] [address] Care Team Providers Care Automotive Electrician Name Role Phone Name, Ananda CRANDALL Primary Care Provider [phone] Reason for Visit * Reason Onset Date Comments Prior Authorization 05/07/2022 Appointment 05/07/2022 Encounter Details Date Type Department Care Team ([facility] st Contact Info) Description 05/07/2022 Telephone [facility] ADULT DENTAL [address] [place] [address] Kelvin Haque, DDS [address] [place] [address] Prior Authorization; Appointment Social History Tobacco Use [...] specify if for partial. Don't see if [facility] has approved partials for patient. Patient verifying. documented in this encounter Plan of Treatment Upcoming Encounters Date Type Department Care Team (Late st Contact Info) Description 06/10/2024 9:30 AM EDT Clinical Support [address] [address] Sonali Stubbs, COREY [address] [place] [address] 07/08/2024 9:15 AM EDT Office Visit [address] [address] Latrice Ibrahim MD [address] [place] [address] 07/15/2024 10:45 AM EDT Office Visit [address] [address] Name, MD Ananda [address] [place] [address] documented as of this encounter Visit Diagnoses Not on filedocumented in this encounter Care Teams Automotive Electrician Relationship Specialty Start Date End Date Name, MD Ananda [address] [place] [address] PCP - General Family Medicine 06/01/15 documented as of this encounter
--- OUTSIDE RECORDS SUMMARY | 2024-06-09 13:44 | XMS_ITS | Encounter Summary ---
Author Organization [employer] Address [address] [facility] [address] 7[address] [place] [address] Care Team Providers Care Chef Assistant Name Role Phone Name, Ananda CRANDALL Primary Care Provider [phone] Reason for Visit * Reason Comments Med Refill Encounter Details Date Type Department Care Team ([facility] Contact Info) Description 04/25/2022 Refill [facility] MEDICINE [address] [place] [address] [phone] Name, MD Ananda [address] [place] [address] Wheezing (Primary Dx) Social History Tobacco Use [...] Upcoming Encounters Date Type Department Care Team ([facility] Contact Info) Description 06/10/2024 9:30 AM EDT Clinical Support [facility] MEDICINE [address] [place] [address] Sonali Stubbs RN [address] [place] [address] 9[address] 07/08/2024 9:15 AM EDT Office Visit [facility] MEDICINE [address] [place] [address] Latrice Ibrahim MD [address] [place] [address] 524[address] 07/15/2024 10:45 AM EDT Office Visit [facility] MEDICINE [address] [place] [address] Name, MD Ananda [address] [place] [address] 22618 documented as of this encounter Visit Diagnoses Diagnosis Wheezing- Primary documented in this encounter Care Teams Chef Assistant Relationship Specialty Start Date End Date NameAnanda MD [address] [place] [address] PCP - General Family Medicine 06/01/15 documented as of this encounter
--- OUTSIDE RECORDS SUMMARY | 2024-06-09 13:44 | XMS_ITS | Encounter Summary ---
Author Organization [employer] Address [address] [facility] [address] [place] [address] Care Team Providers Care Agricultural Services Director Name Role Phone Name, Ananda CRANDALL Primary Care Provider [phone] Reason for Visit * Reason Comments Med Refill Encounter Details Date Type Department Care Team ([facility] Contact Info) Description 06/07/[address] [facility] 230 [place], [place] [phone] Sebastián Graves MD 230 [place], [place] [phone] Pain of left leg Social History Tobacco [...] Upcoming Encounters Date Type Department Care Team ([facility] Contact Info) Description 06/10/2024 9:30 AM EDT Clinical Support [facility] MEDICINE [address] [place] [address] Sonali Stubbs RN [address] [place] [address] 07/08/2024 9:15 AM EDT Office Visit [facility] MEDICINE [address] [place] [address] Latrice Ibrahim MD [address] [place] [address] 9[address] 07/15/2024 10:45 AM EDT Office Visit [facility] MED[facility]INE [address] [place] [address] Name, MD Ananda [address] [place] [address] 76057 documented as of this encounter Visit Diagnoses Diagnosis Pain of left leg documented in this encounter Care Teams Agricultural Services Director Relationship Specialty Start Date End Date Name, MD Ananda [address] [place] [address] PCP - General Family Medicine 06/01/15 documented as of this encounter
--- OUTSIDE RECORDS SUMMARY | 2024-06-09 13:44 | XMS_ITS | Encounter Summary ---
Author Organization [employer] Address [address] [facility] [address]t [place] [address] Care Team Providers Care Patient Registration Manager Name Role Phone Name, Ananda CRANDALL Primary Care Provider [phone] Encounter Details Date Type Department Care Team ([facility] st Contact Info) Description 06/05/2024 Telephone [facility] MEDICINE 230 [place], [place] [phone] Name, MD Ananda [address] [place] [address] Social History Tobacco Use Types Packs/Day Years [...] encounter Miscellaneous Notes * Telephone Encounter - Nichole Palmer - 06/05/2024 11:44 AM EDT Removed from CDTM - Smoking Cessation on 06/05/24, as patient no showed and/or canceled 2 consecutive times. documented in this encounter Plan of Treatment Upcoming Encounters Date Type Department Care Team (Late st Contact Info) Description 06/10/2024 9:30 AM EDT Clinical Support [address] [address] Sonali Stubbs RN [address] [place] [address] 07/08/2024 9:15 AM EDT Office Visit [address] [address] Latrice Ibrahim MD [address] [place] [address] 07/15/2024 10:45 AM EDT Office Visit [address] [address] Name, MD Ananda [address] [place] [address] 8[address] documented as of this encounter Goals Goal [...] documented as of this encounter Care Teams Patient Registration Manager Relationship Specialty Start Date End Date Name, MD Aannda [address] [place] [address] PCP - General Family Medicine 06/01/15 documented as of this encounter
--- OUTSIDE RECORDS SUMMARY | 2024-06-09 13:44 | XMS_ITS | Encounter Summary ---
Author Organization [employer] Address [address] [facility] [address] 7t [place] [address] Care Team Providers Care Title Specialist Name Role Phone Name, Ananda CRANDALL Primary Care Provider [phone] Reason for Visit * Reason Onset Date Comments Appointment 09/06/2022 Encounter Details Date Type Department Care Team ([facility] Contact Info) Description 09/06/2022 Telephone [facility] ADULT DENTAL [address] [place], [place] [phone] Kelvin Haque, LENNY [address] [place] [address] Appointment Social History Tobacco Use Types Packs/Day [...] Description 06/10/2024 9:30 AM EDT Clinical Support [address] [address] Sonali Stubbs, COREY [address] [place] [address] 07/08/2024 9:15 AM EDT Office Visit [address] [address] Latrice Ibrahim MD [address] [place] [address] 07/15/2024 10:45 AM EDT Office Visit [address] [address] Name, MD Ananda [address] [place] [address] documented as of this encounter Visit Diagnoses Not on filedocumented in this encounter Care Teams Title Specialist Relationship Specialty Start Date End Date NameAnanda MD [address] [place] [address] PCP - General Family Medicine 06/01/15 documented as of this encounter
--- OUTSIDE RECORDS SUMMARY | 2024-06-09 13:44 | XMS_ITS | Encounter Summary ---
Author Organization [employer] Address [address] [facility] [address] [place] [address] Care Team Providers Care Pump Installation And Servicer Name Role Phone Name, Ananda CRANDALL Primary Care Provider [phone] Reason for Visit * Reason Onset Date Comments case in lab 10/03/2022 Encounter Details Date Type Department Care Team ([facility] st Contact Info) Description 10/03/2022 Telephone [facility] [address] [place] [address] Kelvin Haque, DDS [address] [place] [address] case in lab Social History Tobacco Use [...] - 10/03/2022 2:29 PM EDT Hubert from [employer] called in tain that the soonest they can get case back in to office would be 10/10. They stated it is 5 business days and does not include drop off or mushroom picker date. Confirmed with Hubert that as of yet appt has not been scheduled to return and that I would inform officeDR documented in this encounter Plan of Treatment Upcoming Encounters Date Type Department Care Team (Late st Contact Info) Description 06/10/2024 9:30 AM EDT Clinical Support [address] [address] Sonali Stubbs RN [address] [place] [address] 07/08/2024 9:15 AM EDT Office Visit [address] [address] Latrice Ibrahim MD [address] [place] [address] 07/15/2024 10:45 AM EDT Office Visit [address] [address] Name, MD Ananda [address] [place] [address] documented as of this encounter Visit Diagnoses Not on filedocumented in this encounter Additional Health Concerns Assessment Noted Time PHQ-9 Depression Total Score: 3 10/04/19 23 2:21 PM EDT documented as of this encounter Care Teams Pump Installation And Servicer Relationship Specialty Start Date End Date Name, MD Ananda [address] [place] [phone] PCP - General Family Medicine 06/01/15 documented as of this encounter
--- OUTSIDE RECORDS SUMMARY | 2024-06-09 13:44 | XMS_ITS | Encounter Summary ---
Author Organization [employer] Address [address] [facility] [address] [place] [address] Care Team Providers Care Home Service Technician Name Role Phone Name, Ananda CRANDALL Primary Care Provider [phone] Reason for Visit * Reason Comments Med Refill Encounter Details Date Type Department Care Team (Late Contact Info) Description 12/07/2022 Refill [facility] MEDICINE [address] [place] [address] [phone] Name, MD Ananda [address] [place] [phone] Type 2 diabetes mellitus without complication, unspecified whether buttermilk drier operator insulin use ([facility]); Type 2 diabetes mellitus without complication, with long-term current use of insulin ([facility]) Social History Tobacco Use Types [...] Department Care Team (Late Contact Info) Description 06/10/2024 9:30 AM EDT Clinical Support [facility] MEDICINE [address] [place] [address] Sonali Stubbs, COREY [address] [place] [address] 07/08/2024 9:15 AM EDT Office Visit [facility] MED[facility]INE [address] [place] [address] Latrice Ibrahim MD [address] [place] [address] 07/15/2024 10:45 AM EDT Office Visit [facility] MEDICINE [address] [place] [address] Name, MD Ananda [address] [place] [address] documented as of this encounter Visit Diagnoses Diagnosis Type 2 diabetes mellitus without complication, unspecified whether custodial insulin use ([facility]) documented in this encounter Additional Health Concerns Assessment Noted Time PHQ-9 Depression Total Score: 3 10/04/19 23 2:21 PM EDT documented as of this encounter Care Teams Home Service Technician Relationship Specialty Start Date End Date Name, MD Ananda [address] [place] [address] PCP - General Family Medicine 06/01/15 documented as of this encounter
--- OUTSIDE RECORDS SUMMARY | 2024-06-09 13:44 | XMS_ITS | Encounter Summary ---
Author Organization [employer] Address [address] [place] [address] Care Team Providers Care Sanitary Landfill Operator Name Role Phone Name, Ananda CRANDALL Primary Care Provider [phone] Encounter Details Date Type Department Care Team ([facility] st Contact Info) Description 03/28/[address] [facility] MEDICINE [address] [place], [place] [phone] Name, MD Ananda [address] [place] [address] Social History Tobacco Use Types Packs/Day Years [...] t he electric, gas, oil or water [employer] threatened to shut off services in your [...] Description 06/10/2024 9:30 AM EDT Clinical Support [address] [address] Sonali Stubbs RN [address] [place] [phone] 07/08/2024 9:15 AM EDT Office Visit [address] [address] Latrice Ibrahim MD [address] [place] [phone] 07/15/2024 10:45 AM EDT Office Visit [address] [address] NameAnanda MD [address] [place] [phone] documented as of this encounter Visit Diagnoses Not on filedocumented in this encounter Additional Health Concerns Assessment Noted Time PHQ-9 Depression Total Score: 3 10/04/19 23 2:21 PM EDT documented as of this encounter Care Teams Sanitary Landfill Operator Relationship Specialty Start Date End Date NameAnanda MD [address] [place] [phone] PCP - General Family Medicine 06/01/15 documented as of this encounter
--- OUTSIDE RECORDS SUMMARY | 2024-06-09 13:44 | XMS_ITS | Encounter Summary ---
Author Organization [employer] Address [address] [place] [address] Care Team Providers Care Caramel Cutter Helper Name Role Phone Name, Ananda CRANDALL Primary Care Provider [phone] Encounter Details Date Type Department Care Team (Latest Contact Info) Description 01/09/2021 Abstract [facility] CONVERSIONS Dental, Provider, DDS Social History [...] Care Team ( st Contact Info) Description 06/10/2024 9:30 AM EDT Clinical Support [address] [address] Snoali Stubbs, COREY [address] [place] [phone] 07/08/2024 9:15 AM EDT Office Visit [address] [address] Latrice Ibrahim MD [address] [place] [phone] 07/15/2024 10:45 AM EDT Office Visit [address] [address] Name, MD Ananda [address] [place] [phone] documented as of this encounter Visit Diagnoses Not on filedocumented in this encounter Care Teams Caramel Cutter Helper Relationship Specialty Start Date End Date Name, MD Ananda [address] [place] [address] PCP - General Family Medicine 06/01/15 documented as of this encounter
--- OUTSIDE RECORDS SUMMARY | 2024-06-09 13:44 | XMS_ITS | Encounter Summary ---
Author Organization [employer] Address [address] [place] [address] Care Team Providers Care [employer] Certified Network Associate Name Role Phone Name, Ananda CRANDALL Primary Care Provider [phone] Reason for Visit * Reason Comments Med Refill Encounter Details Date Type Department Care Team ([facility] Contact Info) Description 02/28/2023 Refill [facility] [address] [place], [place] [phone] Name, MD Ananda [address] [place] [address] Pain of left leg Social History Tobacco [...] Description 06/10/2024 9:30 AM EDT Clinical Support [address] [address] Sonali Stubbs, COREY [address] [place] [phone] 07/08/2024 9:15 AM EDT Office Visit [address] [address] Latrice Ibrahim MD [address] [place] [phone] 07/15/2024 10:45 AM EDT Office Visit [address] [address] Name, MD Ananda [address] [place] [phone] documented as of this encounter Visit Diagnoses Diagnosis Pain of left leg documented in this encounter Additional Health Concerns Assessment Noted Time PHQ-9 Depression Total Score: 3 10/04/19 23 2:21 PM EDT documented as of this encounter Care Teams [employer] Certified Network Associate Relationship Specialty Start Date End Date Name, MD Ananda [address] [place] [phone] PCP - General Family Medicine 06/01/15 documented as of this encounter
--- OUTSIDE RECORDS SUMMARY | 2024-06-09 13:44 | XMS_ITS | Clinical Summary ---
Author Organization [employer] Address [address] [place] [address] Care Team Providers Care Pl Sql Developer Name Role Phone Name, Ananda CRANDALL Primary Care Provider [phone] Allergies No known active allergies Medications docusate sodium (Colace) 100 MG capsule Take 1 capsule by mouth at bed time. 021 Active glucose blood (UpdateLogicTouch Verio) test strip every 8 (eight) hours. [...] (CMS/HCC) 1 each 2 times daily. Call [facility] if consistently < 95% 1 each 023 Active Alcohol Swabs (Alcohol Prep) 70 % pads USE FOUR TIMES DAILY DIRECTED 023 Active clonazePAM (KlonoPIN) 1 MG tablet Take 1 mg by mouth 2 times daily. 023 Active Lancets (UpdateLogicTouch Delica Plus [id number]) [facility] TEST BLOOD SUGAR THREE TIMES DAILY 023 [...] Continuous Glucose Sensor (FreeStyle Kasey 2 Sensor) [facility] USE DIRECTED TO TEST BLOOD SUGAR 8 TIMES PER DAY 2 each Active Continuous Glucose Maintenance Plumber (FreeStyle Kasey 2 Shoup) device Scan sensor every 8 hours 1 each 024 Active Multiple Vitamin (Multivitamin) tablet Take 1 tablet by mouth Once daily. 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 75 mL 11 024 2024 Active atorvastatin (Lipitor) 40 MG tabletIndicatio ns:Type 2 diabetes mellitus with hyperglycemia, with long-term current use of insulin ([facility]) TAKE 1 TABLET BY MOUTH [...] OR LOW BLOOD SUGAR IS RESOLVED Active albuterol (Ventolin HFA) 108 (90 Base) MCG/ACT inhalerIndicati ons:Chronic obstructive pulmonary disease, unspecified COPD type ([facility]) INHALE 2 PUFFS BY MOUTH EVERY 4 TO 6 HOURS NEEDED 18 g 5 025 Active senna (Senokot) 8.6 MG tabletIndicatio ns:Constipation , unspecified constipation type TAKE 2 TABLETS BY MOUTH EVERY DAY NEEDED FOR CONSTIPATION 60 tablet 5 025 Active Nicotine Step 1 21 MG/24HR patch APPLY 1 PATCH TOPICALLY EVERY DAY. REMOVE OLD PATCH BEFORE APPLYING NEW ONE. Active Trelegy Ellipta 200-62.5-25 MCG/ACT aerosol powder Inhale 1 puff 1 (one) time each day at the same time. 025 Active FreeStyle Precision Isak Test test stripIndication s:Type 2 diabetes mellitus with hyperglycemia, with long-term current use of insulin ([facility]) USE DIRECTED TO TEST BLOOD SUGAR THREE TIMES DAILY 100 strip 3 025 Active Suboxone 8-2 MG SL filmIndications :Uncomplicated opioid dependence ([facility]) Place 3 Film under the tongue Once per day for 28 days. 84 Film 025 2024 Active nicotine (Nicoderm CQ) 7 MG/24HR patch Place 1 patch on the skin 1 (one) time each day at the same time. 30 patch 024 2024 Discontinued(M ed list cleanup (will not trigger notification to Pharmacy)) glucose blood (FreeStyle Precision Isak Test) test stripIndication s:Type 2 diabetes mellitus with hyperglycemia, with long-term current use of insulin ([facility]) 1 each by Other route 3 times daily. 100 each 3 024 2024 Discontinued Fluticasone Furoate-Vilante rol 100-25 MCG/ACT aerosol powder Inhale 1 puff Once per day. Same time every day 60 each 3 025 2024 Discontinued(M ed list cleanup (will not trigger notification to Pharmacy)) Umeclidinium [place] (Incruse Ellipta) 62.5 MCG/ACT aerosol powderIndicatio ns:Chronic obstructive pulmonary disease, unspecified COPD type ([facility]) Inhale 1 Act (62.5 mcg) Once per day. 30 each 11 025 2024 Discontinued(M ed list cleanup (will not trigger notification to Pharmacy)) azithromycin (Zithromax) 500 MG tablet Take 1 tablet (500 mg) by mouth every 3 (three) days. 10 tablet 025 2024 Discontinued(M ed list cleanup (will not trigger notification to Pharmacy)) Suboxone 8-2 MG SL filmIndications :Uncomplicated opioid dependence ([facility]) Place 3 Film under the [...] caries 06/20/2022 Chronic obstructive lung disease 02/01/2022 Assessment & Plan (05/21/2024 12:22 PM EDT): Patient seems to be is stable advised to avoid triggers Continue with same medication regimen and follow-up with pulmonary and PCP Adenomatous polyp of colon 02/01/2022 Pulmonary Mycobacterium [...] 08/15/2011 Tobacco dependence 08/15/2011 Assessment & Plan (05/21/2024 12:22 PM EDT): Patient was congratulated about his decrease smoking and encouraged to continue with his smoking cessation program Assessment & Plan (05/13/2024 10:16 AM EDT): [...] Encounters Date Type Department Care Team Description 06/08/2024 Telephone [facility] MED & PEDS [address] [place], [place] [phone] NameAnanda MD Durable Medical Equipment 06/05/2024 Telephone [facility] MEDICINE [address] [place], [place] [phone] NameAnanda MD 06/03/2024 Orders Only [facility] MEDICINE [address] [place], [place] [phone] Ananda Spain MD 06/03/2024 Refill [facility] MED[facility]INE [address] [place] [phone] Sonali Stubbs, COREY Uncomplicated opioid dependence (CMS/HCC) 06/02/2024 Telephone [facility] MEDICINE [address] [place] [phone] Geeta Dove, PharmD 05/29/2024 Orders Only GENERIC EXTERNAL DATA DEPARTMENT Provider, Generic External Data 05/28/2024 Refill [facility] MED[facility] [address] [place] [phone] Ananda Spain MD Type 2 diabetes mellitus with hyperglycemia, with long-term current use of insulin (CMS/HCC) 05/27/2024 Telephone [facility] MEDICINE [address] [place] [phone] Evelyn Reeves RN 05/21/2024 9:30 AM EDT Office Visit [address] [address] So Lebron MD Chronic bronchitis, unspecified chronic bronchitis type ([facility]/HCC) (Primary Dx); Tobacco dependence 05/21/2024 Travel 05/20/2024 Telephone [facility] MEDICINE [address] [place] [phone] Ananda Spain MD Chart Prep 05/19/2024 Orders Only GENERIC EXTERNAL DATA DEPARTMENT Provider, Generic External Data 05/14/2024 Telephone [facility] MEDICINE [address] [place] [phone] Ananda Spain MD Appointment Request 05/13/2024 9:30 AM EDT Office Visit [facility] [address] [place] [phone] Latrice Ibrahim MD Uncomplicated opioid dependence (CMS/HCC) (Primary Dx); Tobacco dependence 05/13/2024 Travel 05/06/2024 Refill [facility] [address] [place] [phone] Sonali Stubbs, COREY Uncomplicated opioid dependence (CMS/HCC) 05/06/2024 Telephone [facility] MEDICINE [address] [place] [phone] Ananda Spain MD No Show (Patient no show for sick on site ) 05/06/[address] [phone] NameAnanda MD No Show 05/06/[address] [address] Ananda Spain MD 04/30/2024 Telephone [facility] PEDS [address] [place], [place] [phone] Name, MD Ananda chartprep 04/23/[address] [address] NameAnanda MD 04/23/[address] [address] Ananda Spain MD Constipation, unspecified constipation type 04/16/2024 10:00 AM EST Office Visit [address] [address] NameAnanda MD Chronic obstructive pulmonary disease, unspecified COPD type (CMS/HCC) (Primary Dx); COPD exacerbation (CMS/HCC); Hypoxia; Non-cardiac chest pain; Type 2 diabetes mellitus with hyperglycemia, with long-term current use of insulin (CMS/HCC) 04/16/2024 Travel 04/15/2024 9:30 AM EST Clinical Support [address] [address] Sonali Stubbs, COREY Uncomplicated opioid dependence (CMS/HCC) (Primary Dx) 04/15/2024 Travel 04/14/[address] [address] Gerda Gutierrez DE chartprep 04/14/2024 Orders Only GENERIC EXTERNAL DATA DEPARTMENT Provider, Generic External Data 04/13/2024 11:00 AM EST Office Visit [facility] [address] [place] [phone] Breanna Das NP Cough in adult patient (Primary Dx); COPD with acute exacerbation (CMS/HCC) 04/12/2024 Orders Only GENERIC EXTERNAL DATA DEPARTMENT Provider, Generic External Data 04/10/[address] [address] Kim Montez, COREY 2024 Refill [facility] MED[facility]INE [address] [place] [address] [phone] Sonali Stubbs RN Uncomplicated opioid dependence ([facility]/HCC) 04/01/2024 Telephone [facility] MEDICINE [address] [place] [phone] Torrie Balderrama, COREY 03/29/2024 Orders Only GENERIC EXTERNAL DATA DEPARTMENT Provider, Generic External Data 03/21/2024 Refill [facility] MED[facility]INE [address] [place] [phone] Ananda Spain MD Chronic obstructive pulmonary disease, unspecified COPD type ([facility]) 03/18/2024 9:00 AM EST Clinical Support [facility] MEDICINE [address] [place] [phone] Sonali Stubbs RN Uncomplicated opioid dependence ([facility]) (Primary Dx); Tobacco dependence 03/18/2024 Travel 03/16/2024 Refill [facility] MED[facility]INE [address] [place] [phone] Ananda Spain MD Type 2 diabetes mellitus with hyperglycemia, with long-term current use of insulin ([facility]) 03/11/2024 Refill [facility] MED[facility] [address] [place] [phone] Sonali Stubbs RN Uncomplicated opioid dependence ([facility]) 03/11/2024 Telephone [facility] MED[facility]INE [address] [place] [phone] Ananda Spain MD Durable Medical Equipment from Last 3 Months Immunizations Name Administration Dates Next Due Hep A, Adult 05/11/2009 Influenza injectable quadriv alent preservative free 01/21/2023,01/02/2022,02/10/2021,03/07,01/13/2019,01/11/2018 Influenza, Split (incl. aba fied surface antigen) 12/24/2012,11/06/2011 Influenza, seasonal, injecta ble, preservative free 03/30/2024,11/20/2023 Juan Manuel SARS-CoV-2 Vaccination 05/18/2020 Pfizer Covid-19 [...] Sign Reading Time Taken Comments Blood Pressure 130/89 05/21/2024 9:20 AM EDT Pulse 97 05/21/2024 9:55 AM EDT Temperature 35.7 ??C (96.2 ??F) 05/21/2024 9:20 AM ED T Respiratory Rate 16 05/21/2024 9:20 AM EDT Oxygen Saturation 98% 05/13/2024 10:13 AM EDT Inhaled Oxygen Concentration - - Weight 55.9 kg (123 lb 3.2 oz) 05/21/2024 9:20 A M EDT Height 167.6 cm (5' 6 ) 05/21/2024 9:20 AM EDT Body Mass Index 19.89 05/21/2024 9:20 AM EDT Plan of Treatment Upcoming Encounters Date Type Department Care Team (Late st Contact Info) Description 06/10/2024 9:30 AM EDT Clinical Support [address] [address] Sonali Stubbs, COREY [address] [place] [phone] 07/08/2024 9:15 AM EDT Office Visit [address] [address] Latrice Ibrahim MD [address] [place] [phone] 07/15/2024 10:45 AM EDT Office Visit [address] [address] NameAnanda MD [address] [place] [phone] Health Maintenance Due Date Last Done Comments [...] 05/18/2020 Depression Monitoring (PHQ-9) 01/10/2024 07/10/2023, 07/10/2023 Depression Screening 07/09/2024 07/10/2023, 07/10/19 24 SDOH Screening 07/09/2024 07/10/2023 Diabetes: Foot Exam 07/23/2024 07/24/2023, 07/24/2023, 07/24/2023, Additional history exists DTaP/Tdap/Td Vaccines (3 - Td or Tdap) 08/14/2024 08/14/2014, 05/25/2011 Diabetes: Hemoglobin A1C 08/27/2024 025, 04/16/2024, 02/28/2024, Additional history exists Tobacco Screening 05/21/2025 05/21/2024 Lipid Panel 05/27/2025 05/27/2024, 05/02, 02/13/2022, Additional history exists Diabetes: Urine Protein Screening 05/29/2025 05/29/2024, 05/14/2023, 02/13/2022, Additional history exists Eye Exam 03/05/2026 03/05/2024, 04/2024, 03/05/2024, Additional [...] perform daily activities General No Sonali Stubbs, director graphics Procedure Name Priority Date/Time Associated Diagnosis Comments ALBUMIN, RANDOM URINE W/CREATININE Routine 05/29/2024 8:43 AM EDT HEPATITIS A ANTIBODY, TOTAL Routine 05/27/2024 8:40 AM EDT Type 2 diabetes mellitus with hyperglycemia, with long-term current use of insulin (CMS/HCC) Chronic obstructive pulmonary disease, unspecified COPD type (CMS/HCC) HEPATITIS B SURFACE ANTIBODY, QUALITATIVE Routine 05/27/2024 8:40 AM EDT Type 2 diabetes mellitus with hyperglycemia, with long-term current use of insulin (CMS/HCC) HEPATITIS B SURFACE ANTIGEN, EIA Routine 05/27/2024 8:40 AM EDT Type 2 diabetes mellitus with hyperglycemia, with long-term current use of insulin (CMS/HCC) HEMOGLOBIN A1C Routine 05/27/2024 8:40 AM EDT Type 2 diabetes mellitus with hyperglycemia, with long-term current use of insulin (CMS/HCC) Chronic obstructive pulmonary disease, unspecified COPD type (CMS/HCC) LIPID PANEL, STANDARD Routine 05/27/2024 8:40 AM EDT Type 2 diabetes mellitus with hyperglycemia, with long-term current use of insulin (CMS/HCC) Chronic obstructive pulmonary disease, unspecified COPD type (CMS/HCC) COMPREHENSIVE METABOLIC PANEL Routine 05/27/2024 8:40 AM EDT Type 2 diabetes mellitus with hyperglycemia, with long-term current use of insulin (CMS/HCC) Chronic obstructive pulmonary disease, unspecified COPD type (CMS/HCC) CBC WITH AUTO DIFFERENTIAL Routine 05/27/2024 8:40 AM EDT Type 2 diabetes mellitus with hyperglycemia, with long-term current use of insulin ([facility]) Chronic obstructive pulmonary disease, unspecified COPD type ([facility]) GLUCOSE, WHOLE BLOOD Routine 05/19/2024 8:54 AM EDT POCT FARA-14 URINE DRUG SCREEN Routine 05/13/2024 9:43 AM EDT Uncomplicated opioid dependence ([facility]) POCT GLYCATED HEMOGLOBIN, TOTAL Routine 04/16/2024 10:24 AM EST Type 2 diabetes mellitus with hyperglycemia, with long-term current use of insulin ([facility]) POCT GLUCOSE Routine 04/16/2024 10:21 AM EST Type 2 diabetes mellitus with hyperglycemia, with long-term current use of insulin ([facility]) POCT FARA-14 URINE DRUG SCREEN Routine 04/15/2024 9:24 AM EST Uncomplicated opioid dependence ([facility]) GLUCOSE, WHOLE BLOOD Routine [...] 9:30 AM EST Uncomplicated opioid dependence (CMS/HCC) HEPATITIS C AB W/REFL TO HCV RNA, QN, PCR Routine 03/29/2023 9:12 AM EST HIV 1/2 ANTIGEN/ANTIBODY, FOURTH GENERATION W/RFL Routine 03/29/2023 9:12 AM EST HM COLONOSCOPY Routine 08/16/2015 1:52 PM EDT from Last 3 Months or Most Recently Relevant to Health Maintenance Results * Albumin, Random Urine W/Creatinine (05/29/2024 8:43 AM EDT) Creatinine, Urine 126.68 mg/dL [facility] Microalbumin Urine 15.0 mg/L [facility] Microalbum Creatinine Ratio Ur 11.8 <30 ug/mg cr [facility] Comment:Albumin/Creatinine R atio Reference Ranges: Normal: < 30 ug/mg creatinine Microalbuminuria: 30 - 300 ug/mg creatinineClinical Albuminuria: > 300 ug/mg creatinine 05/29/2024 8:43 AM EDT 05/29/2024 9:05 AM EDT us Generic External Data Provider LAB URINE ORDERAB LES Final Result [facility] [address] [place] [phone] * (ABNORMAL) CBC auto differential (05/27/2024 8:40 AM EDT) Only the most recent of3 resultswithin the time period is included. White Blood Count 8.3 4.8 - 10.8 X10*3/uL [facility] Red Blood Count 4.66 4.60 - 5.80 X10*6/uL [facility] Hemoglobin 13.7(L) 14.0 - 18.0 g/dl [facility] Hematocrit 41.9(L) 42.0 - 52.0 % [facility] Mean Corpuscular Volume 89.9 80.0 - 98.0 fL [facility] Mean Corpuscular Hemoglobin 29.4 27.0 - 33.0 pg [facility] Mean Corpuscular HGB Conc 32.7 31.0 - 36.0 g/dl [facility] Red Cell Distribution Width 14.6 11.0 - 16.0 % [facility] Platelet Count 270 160 - 400 X10*3/uL [facility] Mean Platelet Volume 10.8 9.4 - 12.4 fL [facility] Neutrophils Percent Auto 38.6(L) 45 - 73 % [facility] Imm Gran Pct Auto 0.2 0.0 - 0.4 % [facility] Lymphocytes Percent Auto 43.0(H) 20 - 40 % [facility] Monocytes Percent Auto 10.4 2 - 11 % [facility] Eosinophils Percent Auto 6.6(H) 0 - 4 % [facility] Basophils Percent Auto 1.2 0 - 2 % [facility] NRBC Pct Auto 0.0 0.0 - 0.2 /100WBC [facility] Neutrophils Absolute Auto 3.2 2.0 - 8.3 x10*3/uL [facility] Imm Gran Abs Auto 0.02 0.00 - 0.03 X10*3/uL [facility] Lymphocytes Absolute Auto 3.6 1.2 - 4.9 X10*3/uL [facility] Monocytes Absolute Auto 0.9 0.1 - 1.2 X10*3/uL [facility] Eosinophils Absolute Auto 0.6(H) 0.0 - 0.4 X10*3/uL [facility] Basophils Absolute Auto 0.1 0.0 - 0.2 X10*3/uL [facility] NRBC Abs Auto 0.000 0.0 - 0.012 X10*3/uL [facility] Blood Venous blood specimen / Unknown 05/27/2024 8:40 AM EDT 05/27/2024 8:40 AM EDT us Ananda Name LAB BLOOD ORDERABLES Final Resul t [facility] [address] [place] [phone] * Hepatitis A Antibody, Total (05/27/2024 8:40 AM EDT) Hepatitis A Antibody IgG REACTIVE Nonreactive [facility] Comment:The presence of IgG anti-HAV implies past HAV infection(recent or distant) or vaccination against HAV. Blood Venous blood specimen / Unknown 05/27/2024 8:40 AM EDT 05/27/2024 8:40 AM EDT us Ananda Spain MD LAB BLOOD ORDERABLES Final Resul t Performing Organization Address [facility] de Phone Number [facility] [address] [place] [phone] * Hepatitis B surface antigen, EIA (05/27/2024 8:40 AM EDT) Pathologist [facility] Hepatitis B Surface Ag Negative Negative [facility] Blood Venous blood specimen / Unknown 05/27/2024 8:40 AM EDT 05/27/2024 8:40 AM EDT us Ananda Spain MD LAB BLOOD ORDERABLES Final Resul t Performing Organization Address [facility] de Phone Number [facility] [address] [place] [phone] * Hepatitis B Surface Antibody, Qualitative (05/27/2024 8:40 AM EDT) Pathologist [facility] ~Hepatitis B Surface Antibody REACTIVE Nonreactive [facility] Comment:REACTIVE: > 11.99 mI U/mL Blood Venous blood specimen / Unknown 05/27/2024 8:40 AM EDT 05/27/2024 8:40 AM EDT Ananda Spain MD LAB BLOOD ORDERABLES Final Resul t Performing Organization Address [facility] de Phone Number [facility] [address] [place] [phone] * (ABNORMAL) Hemoglobin A1c (05/27/2024 8:40 AM EDT) Hemoglobin A1c 8.3(H) <6.0 % [facility] Comment:Hemoglobin A1C Refer ence Range Adults: 4.8 - 6.0 % Non diabetic: < 6.0 % Goal: < 7.0 %Additional Action Suggested: > 8.0 %Note: Hemoglobin A1c results are invalid for patients with abnormal amounts of HbF. Blood transfusions may impact the HbA1c concentration in the patient sample. Estimated Average Glucose 192 mg/dL [facility] Comment:eAG = Estimated ave rage glucose which is %A1C expressed asaverage glucose, using the formula of the T1P-WjgrzzxLuxegrf Glucose study (ADAG), Diabetes Care, Vol.31,#8,2007 Blood Venous blood specimen / Unknown 05/27/2024 8:40 AM EDT 05/27/2024 8:40 AM EDT us Ananda Spain MD LAB BLOOD ORDERABLES Final Resul t [facility] [address] [place] [address] [phone] * (ABNORMAL) Lipid Panel, Standard (05/27/2024 8:40 AM EDT) Triglycerides 73 <150 mg/dL [facility] Comment:Desirable Triglyceri de: less than 150 mg/dLBorderline High Triglyceride 150-199 mg/dLHigh Triglyceride: 200-499 mg/dLVery High Triglyceride: greater than or equal to 5OO mg/dL Cholesterol 221(H) <200 mg/dL [facility] Comment:Desirable Cholestero l: less than 200 mg/dLBorderline High Cholesterol: 200-239 mg/dLHigh Cholesterol: greater than 239 mg/dL LDL Cholesterol Calculated 75 <100 mg/dL [facility] Comment:Desirable LDL: less than 100 mg/dLNear Optimal/Above Optimal LDL: 110- 129 mg/dLBorderline High LDL: 130-159 mg/dLHigh LDL: 160-189 mg/dLVery High LDL: greater than or equal to 190 mg/dL HDL Cholesterol 132 >40 mg/dL [facility] Comment:Desirable HDL: great er than 40 mg/dL Note: This HDL assay may give artificially low results in patients with liver disease. Blood Venous blood specimen / Unknown 05/27/2024 8:40 AM EDT 05/27/2024 8:40 AM EDT us Ananda Name LAB BLOOD ORDERABLES Final Resul t [facility] [address] [place] [phone] * (ABNORMAL) Comprehensive Metabolic Panel (05/27/2024 8:40 AM EDT) Only the most recent of2 resultswithin the time period is included. Sodium 146(H) 135 - 145 mmol/L [facility] Potassium 3.6 3.3 - 5.1 mmol/L [facility] Chloride 109(H) 96 - 108 mmol/L [facility] Carbon Dioxide 30(H) 22 - 29 mmol/L [facility] Anion Gap 11(L) 12 - 20 [facility] Urea Nitrogen (BUN) 14 9 - 16 mg/dL [facility] Creatinine, Serum 0.73 0.5 - 1.4 mg/dL [facility] Estimated Glomerular Filt Rate >60 [facility] Comment:Chronic Kidney Disea se: Estimated GFR < 60 mL/min/[id number] Kidney Disease: Estimated GFR < 15 mL/min/1.73m2 Glucose 46(LL) 60 - 115 mg/dL [facility] Comment:Critical value for G ELENI: Results called to and read hungy: BOZENA Paige Person calling: NAYLA Date: 05-27-24 Time:1035 Calcium 10.2 8.4 - 10.2 mg/dL [facility] Bilirubin, Total 1.3(H) 0.0 - 1.0 mg/dL [facility] Aspartate Amino Transferase 38(H) 5 - 37 U/L [facility] Alanine Aminotransferase 28 0 - 40 U/L [facility] Total Protein 7.3 6.5 - 8.0 g/dL [facility] Albumin Level 4.7 3.5 - 5.0 g/dL [facility] Alkaline Phosphatase 55 39 - 117 U/L [facility] Blood Venous blood specimen / Unknown 05/27/2024 8:40 AM EDT 05/27/2024 8:40 AM EDT Ananda Spain MD LAB BLOOD ORDERABLES Final Resul t Performing Organization Address [facility]/ZIP Co de Phone Number [facility] [address] [place] [phone] * Glucose, Whole Blood (05/19/2024 8:54 AM EDT) Only the most recent of2 resultswithin the time period is included. Glucose, Whole Blood 90 60 - 115 mg/dL [facility] Comment:METER #: [id number] Testing performed in the Endocrinology Department [address] , [address], [facility]. 05/19/2024 8:54 AM EDT 05/19/2024 8:59 AM EDT us Un[employer]ym External Data Provider LAB BLOOD ORDERAB LES Final Result Performing Organization Address [facility] Co de Phone Number [facility] [address] [place] [phone] * POCT FARA-14 Urine Drug Screen (05/13/2024 9:43 AM EDT) Only the most recent of3 resultswithin the [...] POCT HGB A1C (04/16/2024 10:24 AM EST) Pathologist [facility] Hemoglobin A1C 8.8(A) 4.0 - 6.0 % QC Media Lot # [id number] Lot# Expiration Date Blood 04/16/2024 10:2 4 AM EST us Ananda Spain MD POINT OF CARE TEST ENTER/EDIT OR DERABLES Final Result * (ABNORMAL) POCT Glucose (04/16/2024 10:21 AM EST) Pathologist [facility] Glucose Blood, POC 229(A) 60 - 200 mg/dL QC Media Lot # [id number] Lot# Expiration Date Blood Capillary blood specimen / Unknown 04/16/2024 10:21 AM EST Result Tianna Spain MD POINT OF CARE TEST ENTER/EDIT OR DERABLES Final Result * Influenza B (ID NOW Rapid Molecular) (04/13/2024 11:34 AM EST) Pathologist [facility] Influenza B Negative Negative, Indeterminate [facility] Swab 04/13/2024 11:3 4 AM EST Result Tianna Das NP POINT OF CARE TEST ENTER/EDIT O RDERABLES Final Result Performing Organization Address [facility]/ZIP Co de Phone Number [facility] [address] [place] [address] [phone] * Influenza A (ID NOW Rapid Molecular) (04/13/2024 11:34 AM EST) Pathologist [facility] Influenza A Negative Negative, Indeterminate [facility] Swab 04/13/2024 11:3 4 AM EST us Breanna Das NP POINT OF CARE TEST ENTER/EDIT O RDERABLES Final Result Performing Organization Address City/[facility]/ZIP Co de Phone Number [facility] [address] [place] [phone] * POCT Rapid COVID Ag (04/13/2024 11:33 AM EST) Rapid COVID Ag Negative Swab 04/13/2024 11:3 3 AM EST us Breanna Appram DRAFT ROLLER PICKER POINT OF CARE TEST ENTER/EDIT O RDERABLES Final Result * XR Chest 2 Views (04/12/2024 3:17 PM EST) Anatomical Region Laterality Modality Chest Radiographic Altagracia ging 04/12/2024 3:1 7 PM EST Narrative 04/12/2024 3:18 PM EST ? [facility] ?[address] ?[place] [address] ?XRay Report ? Signed ? Patient: Hubert Cruz M ?MR#: ?? [id number] ? : 1965 ?Acct:[id number] ? Age/Sex: 59 / M ?ADM Date: 04/12/24 ? Loc: HO.ED ? Attending Dr: ? Ordering Physician: Pebbles Rooney CNP ?? Date of Service: 04/12/24 ?? Procedure(s): XR chest 2V ?? Accession Number(s): [id number] ? cc: Pebbles Rooney CNP; Name,Ananda CRANDALL [...] in OV> ? 04/12/24 1518 ? DD/ 1517 ? TD/TT: 04/12/24 1517 ? 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 TROPONIN I HIGH SENSITIVITY 6.3 <3.5 - 35.0 ng/L [facility] Comment:The Medrano high sens itivity Troponin-I results should beused in conjunction with other diagnostic information suchas ECG, clinical observations and information, and patientsymptoms to aid in the diagnosis of AL. 04/12/2024 2:06 PM EST 04/12/2024 2:09 PM EST Generic External Data Provider LAB BLOOD ORDERAB LES Final Result Performing Organization Address City/State/[facility] de Phone Number [facility] [address] [place] [phone] * SARS-CoV-2 RNA, Influenza A/B, and RSV RNA, Ql NAAT (04/12/2024 2:06 PM EST) Only the most recent of2 resultswithin the time period is included. Influenza A PCR NEGATIVE Negative [facility] Influenza B PCR NEGATIVE Negative [facility] Resp Syncy Virus RNA Qual PCR NEGATIVE Negative [facility] SARS COV2 PCR NEGATIVE Negative [facility] Comment:All test results mus t be [...] use by authorized laboratories.Testing performed on the [employer] GeneXpert utilizingreal-time RT-PCR.All SARS CoV2 and positive influenza A/B results arereported to [facility]. 04/12/2024 2:06 PM EST 04/12/2024 2:09 PM EST Generic External Data Provider LAB MICROBIOLOGY - GENERAL ORDERABLES Final Result Performing Organization Address [facility] Co de Phone Number [facility] [address] [place] [phone] * Prothrombin Time-INR (04/12/2024 2:06 PM EST) Only the most recent of2 resultswithin the time period is included. Prothrombin Time 11.3 10.9 - 12.4 SEC [facility] INTERNATIONAL NORM RATIO 1.0 0.9 - 1.1 [facility] Comment:INTERNATIONAL NORMAL IZED RATIO (INR) REFERENCE [...] ORDERAB LES Final Result Performing Organization Address [facility] de Phone Number [facility] [address] [place] [address] [phone] * B Type Natriuretic Peptide (BNP) (04/12/2024 2:06 PM EST) Pathologist [facility] B Type Natriuretic Peptide 11 <100 pg/mL [facility] Comment:For those patients w ho are being treated with Natrecor(nesiritide, recombinant BNP), BNP testing should beperformed at least two hours post treatment in order toensure that only endogenous levels of BNP are detected. 04/12/2024 2:06 PM EST 04/12/2024 2:09 PM EST us Un[employer] External Data Provider LAB BLOOD ORDERAB LES Final Result Performing Organization Address [facility] de Phone Number [facility] [address] [place] [phone] * Magnesium (04/12/2024 2:06 PM EST) Pathologist [facility] Magnesium 1.9 1.6 - 2.6 mg/dL [facility] 04/12/2024 2:06 PM EST 04/12/2024 2:09 PM EST Generic External Data Provider LAB BLOOD ORDERAB LES Final Result Performing Organization Address [facility] de Phone Number [facility] [address] [place] [phone] * XR Chest 1 View (03/29/2024 12:43 PM EST) Anatomical Region Laterality Modality Chest Radiographic Altagracia ging 03/29/2024 12:4 3 PM EST Narrative 03/29/2024 12:44 PM EST ? [facility] ?[address] ?[place] [address] ?XRay Report ? Signed ? Patient: Hubert Cruz ?MR#: ?? [id number] ? : 1965 ?Acct:[id number] ? Age/Sex: 58 / M ?ADM Date: 03/29/24 ? Loc: HO.ED ? Attending Dr: ? Ordering Physician: Tiffanie Ulloa NP ?? Date of Service: 03/29/24 ?? Procedure(s): XR chest 1V ?? Accession Number(s): [id number] ? cc: Name,Ananda CRANDALL; Tiffanie Ulloa NP ? CLINICAL HISTORY: cough, shortness of breath ? 1 view chest x-ray ? Comparison: CR/SR - XR CHEST 2V - 12/19/21 14:24 EDT ?? [place] [id number] - 02/26/19 13:51 EST ? Findings: ?? [...] DD/ 1243 ? TD/TT: 03/29/24 1243 ? 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 Procedure Note Kay, Image - 03/29/[address] [place] [facility] [place] [address] XRay Report Signed Patient: Hubert Cruz [facility]#: [id number] : 1965Acct:[id number] Age/Sex: 58 / MADM Date: 03/29/24 Loc: HO.ED Attending Dr: Ordering Physician: Tiffanie Ulloa NP Date of Service: 03/29/24 Procedure(s): XR chest 1V Accession Number(s): [id number] cc: Name,Ananda CRANDALL; Tiffanie Ulloa NP CLINICAL HISTORY: cough, shortness of breath 1 view chest x-ray Comparison: CR/SR - XR CHEST 2V - 12/19/21 14:[address] [id number] - 02/26/19 13:51 EST Findings: Overinflation and [...] 03/29/24 1244 DD/ 1243 TD/TT: 03/29/24 1243 Pet[employer] Terminal Plant Operator: [facility] External Provider IMG XR PROCEDURES Edited Result - Final * (ABNORMAL) Hepatic Function Panel (03/29/2024 11:41 AM EST) Bilirubin, Total 1.3(H) 0.0 - 1.0 mg/dL [facility] Bilirubin, Direct 0.4 0.0 - 0.5 mg/dL [facility] Aspartate Amino Transferase 22 5 - 37 U/L [facility] Alanine Aminotransferase 16 0 - 40 U/L [facility] Total Protein 7.8 6.5 - 8.0 g/dL [facility] Albumin Level 4.7 3.5 - 5.0 g/dL [facility] Alkaline Phosphatase 66 39 - 117 U/L [facility] 03/29/2024 11:4 1 AM EST 03/29/2024 11:44 AM EST us Generic External Data Provider LAB BLOOD ORDERAB LES Final Result Performing Organization Address City/[facility]/ZIP Co de Phone Number [facility] [address] [place] [phone] * (ABNORMAL) Basic Metabolic Panel (03/29/2024 11:41 AM EST) Sodium 139 135 - 145 mmol/L [facility] Potassium 4.9 3.3 - 5.1 mmol/L [facility] Chloride 103 96 - 108 mmol/L [facility] Carbon Dioxide 30(H) 22 - 29 mmol/L [facility] Anion Gap 11(L) 12 - 20 [facility] Urea Nitrogen (BUN) 15 9 - 16 mg/dL [facility] Creatinine, Serum 0.96 0.5 - 1.4 mg/dL [facility] Creatinine Clr Calc Pharmacy 65.6 [facility] Comment:eGFR (calculated fro m the MDRD study equation) and eCrCl(calculated from the Cockcroft-Gault equation) are based ondifferent parameters and may not yield comparable results.If eCrCl result is absurd, please check patient'sheight/weight. Estimated Glomerular Filt Rate >60 [facility] Comment:Chronic Kidney Disea se: Estimated GFR < 60 mL/min/1.85g3Ttmoni Kidney Disease: Estimated GFR < 15 mL/min/1.73m2 Glucose 203(H) 60 - 115 mg/dL [facility] Calcium 9.9 8.4 - 10.2 mg/dL [facility] 03/29/2024 11:4 1 AM EST 03/29/2024 11:44 AM EST us Generic External Data Provider LAB BLOOD ORDERAB LES Final Result [facility] [address] [place] [phone] * Partial Thromboplastin Time, Activated (APTT) (03/29/2024 11:40 AM EST) Partial Thromboplastin Time 30.0 26.0 - 36.8 SEC [facility] Comment:For information rega rding the monitoring of direct thrombininhibitors, please refer to Pharmacy. 03/29/2024 11:4 0 AM EST 03/29/2024 11:44 AM EST us Generic External Data Provider LAB BLOOD ORDERAB LES Final Result Performing Organization Address [facility] Phone Number [facility] [address] [place] [phone] * (ABNORMAL) Hepatitis C Antibody with Reflex to HCV, RNA, Quantitative, Real- Time PCR (03/29/2023 9:12 AM EST) Hepatitis C Antibody Reactive( A) Nonreactive [facility] Comment:Presumptive evidence of antibodies to HCV. 03/29/2023 9:12 AM EST 03/29/2023 11:11 AM EST us Latrice Ibrahim MD LAB BLOOD ORDERABLES Final Resul t Performing Organization Address [facility] de Phone Number [facility] [address] [place] [phone] * HIV-1/2 Antigen and Antibodies, Fourth Generation, with Reflexes (03/29/2023 9:12 AM EST) HIV AB/AG Nonreactive Nonreactive [facility] Comment:HIV-1 p24 Ag and/or HIV-1/HIV-2 Ab not detected.A test result that is nonreactive does not exclude thepossibility of exposure to or infection with HIV-1 and/orHIV-2. Nonreactive results in this assay for individualswith prior exposure to HIV-1 and/or HIV-2 may be due toantigen and antibody levels that are below the limit ofdetection of this assay.The [employer] HIV Ag/Ab Combo assay result andsupplemental assay results should be interpreted inconjunction with the patient's clinical presentation,history and other laboratory results. If the results areinconsistent with clinical evidence, additional testing issuggested to confirm the result. 03/29/2023 9:12 AM EST 03/29/2023 11:11 AM EST us Latrice Ibrahim MD LAB BLOOD ORDERABLES Final Resul t [facility] [address] [place] [phone] * Hm Colonoscopy (08/16/2015 1:52 PM EDT) Colonoscopy Normal Normal Narrative Gloria Álvarez - 08/16/2015 1:52 PM EDT Recommended 10 year follow up us Historical Provider HEALTH MAINTENANCE Final Result from Last 3 Months or Most Recently Relevant to Health Maintenance Insurance [facility] Care Teams Pl Sql Developer Relationship Specialty Start Date End Date Name, MD Ananda [address] [place] [phone] PCP - General Family Medicine 06/01/15
--- OUTSIDE RECORDS SUMMARY | 2024-06-09 13:44 | XMS_ITS | Encounter Summary ---
Author Organization [employer] Address [address] [place] [address] Care Team Providers Care Tufting Machine Fixer Name Role Phone Name, Ananda CRANDALL Primary Care Provider [phone] Reason for Visit * Reason Onset Date Comments Durable Medical Equipment 09/18/2022 Encounter Details Date Type Department Care Team ([facility] st Contact Info) Description 09/18/[address] [facility] [address] [place], [place] [phone] Name, MD Ananda [address] [place] [address] Durable Medical Equipment Social History Tobacco Use [...] 09/21/2022 1:49 PM EDT Incoming call from [facility] regarding message below. [facility] states they have no record of pt ever going to their offices and getting PT. Unsure what next steps should be at this point. * Telephone Encounter - Christy Finn RN - 09/21/2022 1:39 PM EDT TC X1 to [facility] [phone] regarding message below. LVM to return call to nurses. * Telephone Encounter - Lauren Walsh - 09/20/2022 3:14 PM EDT Tc from patient returning call back, regarding message below. Patient states he's going to PT in [facility]. [address] [place] [address] [place] [address] Dr. Mcdaniel. * Telephone Encounter - Christy [...] Description 06/10/2024 9:30 AM EDT Clinical Support [facility] [address] [place] [address] Sonali Stubbs, RN [address] [place] [address] 07/08/2024 9:15 AM EDT Office Visit [facility] [address] [place] [address] Latrice Ibrahim MD [address] [place] [address] 07/15/2024 10:45 AM EDT Office Visit [address] [address] Name, MD Ananda [address] [place] [address] documented as of this encounter Visit Diagnoses Not on filedocumented in this encounter Care Teams Tufting Machine Fixer Relationship Specialty Start Date End Date Name, MD Ananda [address] [place] [address] PCP - General Family Medicine 06/01/15 documented as of this encounter
--- OUTSIDE RECORDS SUMMARY | 2024-06-09 13:44 | XMS_ITS | Encounter Summary ---
Author Organization [employer] Address [address] [place] [address] Care Team Providers Care Retail Interior Designer Name Role Phone Name, Ananda CRANDALL Primary Care Provider [phone] Encounter Details Date Type Department Care Team (Latest Contact Info) Description 01/06/2019 Abstract [facility] CONVERSIONS Dental, Provider, DDS Social History [...] Description 06/10/2024 9:30 AM EDT Clinical Support [address] [address] Sonali Stubbs RN [address] [place] [address] 07/08/2024 9:15 AM EDT Office Visit [address] [address] Latrice Ibrahim MD [address] [place] [address] 07/15/2024 10:45 AM EDT Office Visit [address] [address] Name, MD Ananda [address] [place] [address] documented as of this encounter Visit Diagnoses Not on filedocumented in this encounter Care Teams Retail Interior Designer Relationship Specialty Start Date End Date Name, MD Ananda [address] [place] [address] PCP - General Family Medicine 06/01/15 documented as of this encounter
--- OUTSIDE RECORDS SUMMARY | 2024-06-09 13:44 | XMS_ITS | Data Portability ---
Author Organization [employer] [place], [place] - [facility] Address [address] [place] [phone] Care Team Providers Care Boat Wrapper Name Role Phone HIM CCA OTHER Assessment Encounter Date Assessment Date Assessment LastModified by Organization Details LastModified Time 04/23/2024 04/23/2024 I have reviewed and agree with the assessment and plan as documented by the chief recordist. I provided real-time medical direction for this encounter and was immediately available to provide additional phone-based assistance as needed. History as noted in EMR and by chief recordist. I would add / emphasize: Patient seen [...] this. Patient was in agreement transported to [facility] subsequently. pallfather Not available 04/24/2024 14:02:36 Plan of Treatment Reminders Order Date Submit Date Provider Last Modified By Organization Details Last Modified Time Details Appointments None recorded. Lab rapid SARS CoV 2 Ag, QL [place], respiratory specimen [address], [phone] 5 14:47:38 rapid flu (A+B) [address], [phone] 5 14:47:39 Referral None recorded. Procedures None [...] Ultra-Fine Pham Pen Needle 32 gauge x USE DIRECTED FOUR TIMES DAILY active Not [...] Not Available No t Available FreeStyle Precision Iska Strips USE DIRECTED TO TEST BLOOD SUGAR [...] 74 mm[Hg] Not Available [facility] - production 5 18:36:46 Social History None recorded. Functional Status None recorded. Mental Status None recorded. Family History Nothing Reported. Medical History No medical history recorded. Past Encounters Encounter ID Performer Location Encounter Start Date Encounter Closed Date Diagnosis/Indication Diagnosis SNOMED-CT Code Diagnosis ICD10 Code Diagnosis Note [id number] Dillon Galeano MD Main - [facility] [address] [place] [address] 04/23/2024 18:36:39 04/24/2024 20:56:44 Hypoxemia 399924258 R09.02 Health Concerns Section Related Observation LastModified by Organization Detai ls LastModified Time None Recorded Concern Status LastModified by Organization Details LastModified Time None Recorded Advance Directives Directive None Recorded Payers Encounter Date Sequence Insurance Name Policy Number Policy Tom[place] Covered Member ID Tomlin Member ID Guarantor Name 04/23/[address] [facility] - DOS ON OR AFTER 2022 - DUAL ELIGIBLE - INTERMEDIATE OPTIONS AND ONE CARE (MEDICARE REPLACEMENT/ADV ANTAGE - HMO) Hubert Rios [id number] Hubert Rios Notes Date Note Type Note [...] does not report any new symptoms- NE Varnish Melter Helper Organization Information for [facility] Business Legal Name: [employer]? Address: [address] [place] [address], [place] [address], Control Systems Eng: Gucci VELEZ No.: [id number] Varnish Melter Helper POC Test Results from [facility] Rapid COVID antigen (18:34:09) COVID: - Attachments uploaded as part of this test result can be found under Documents section. Rapid influenza antigen (18:34:10) Flu: - Attachments uploaded as part of this test result can be found under Documents section. .................. .................. .................. .................. .................. .................. .................. ............... Varnish Melter Helper Note From [facility]: Dispatched to above [...] to low 80s, HR increased to 115-120. [facility] contacted, advised of patient complaints, exam findings and test results. [facility] recommends transport to ER for further evaluation due to concerns for PE. Patient agrees with this plan. 911 called, [facility] and [facility] responded. Verbal report given to [facility] Varnish Melter Helper, took over patient care, will transport to [facility]. Sc8 clear. EOR. .................. .................. .................. .................. .................. .................. .................. ............... [facility] Consulted: Dillon Galeano .................. .................. .................. .................. .................. .................. .................. ............... Disposition: Fulfilled Dillon Galeano MD [address] [facility] [address], [place], [address], [employer] 04/24/2024 14:02:45
--- OUTSIDE RECORDS SUMMARY | 2024-06-09 13:44 | XMS_ITS | Encounter Summary ---
Author Organization [employer] Address [address] [place] [address] Care Team Providers Care Artificial Insemination Technician Name Role Phone Name, Ananda CRANDALL Primary Care Provider [phone] Reason for Visit * Reason Comments Med Refill Encounter Details Date Type Department Care Team ([facility] Contact Info) Description 03/08/2024 Refill [facility] [address] [place], [place] [phone] Name, MD Ananda [address] [place] [address] Chronic obstructive pulmonary disease, unspecified COPD type [...] Description 06/10/2024 9:30 AM EDT Clinical Support [address] [address] Sonali Stubbs RN [address] [place] [address] 07/08/2024 9:15 AM EDT Office Visit [address] [address] Latrice Ibrahim MD [address] [place] [address] 07/15/2024 10:45 AM EDT Office Visit [address] [address] NameAnanda MD [address] [place] [phone] documented as of this encounter Visit Diagnoses Diagnosis Chronic obstructive pulmonary disease, unspecified COPD type (CMS/HCC) documented in this encounter Additional Health Concerns Assessment Noted Time PHQ-9 Depression Total Score: 10 024 9:15 AM EDT documented as of this encounter Care Teams Artificial Insemination Technician Relationship Specialty Start Date End Date Ananda Spain MD [address] [place] [phone] PCP - General Family Medicine 06/01/15 documented as of this encounter
--- OUTSIDE RECORDS SUMMARY | 2024-06-09 13:44 | XMS_ITS | Encounter Summary ---
Author Organization [employer] Address [address] [facility] [address] 7[address] [place] [address] Care Team Providers Care Maintenance Department Manager Name Role Phone Name, Ananda CRANDALL Primary Care Provider [phone] Encounter Details Date Type Department Care Team ([facility] Contact Info) Description 02/14/2022 Abstract [facility] [address] [place] [address] Provider, MD Damari Social History Tobacco Use [...] Upcoming Encounters Date Type Department Care Team ([facility] Contact Info) Description 06/10/2024 9:30 AM EDT Clinical Support [facility] [address] [place] [address] Sonali Stubbs, COREY [address] [place] [address] 07/08/2024 9:15 AM EDT Office Visit [facility] [address] [place] [address] [phone] Latrice Ibrahim MD [facility] [place] [address] 07/15/2024 10:45 AM EDT Office Visit [facility] [place] [address] Name, [place] [address] documented as of this encounter Visit Diagnoses Not on filedocumented in this encounter Care Teams Maintenance Department Manager Relationship Specialty Start Date End Date Name, MD Ananda [facility] [place] [address] PCP - General Family Medicine 06/01/15 documented as of this encounter
--- OUTSIDE RECORDS SUMMARY | 2024-06-09 13:44 | XMS_ITS | Encounter Summary ---
Author Organization [employer] Address [address] [facility] [facility] [address] 7t [place] [address] Care Team Providers Care Business Records Manager Name Role Phone Name, Ananda CRANDALL Primary Care Provider Reason for Visit * Reason Onset Date Comments Durable Medical Equipment 06/08/2024 Encounter Details Date Type Department Care Team ([facility] st Contact Info) Description 06/08/2024 Telephone [facility] [address] [place], [place] [phone] Name, MD Ananda [address] [place] [address] Durable Medical Equipment Social History Tobacco Use [...] Telephone Encounter - Zainab Thomas MA - 06/08/2024 10:17 AM EDT DME for Boost from [employer] received and is being processed. Placed on provider's desk for signature. documented in this encounter Plan of Treatment Upcoming Encounters Date Type Department Care Team (Late st Contact Info) Description 06/10/2024 9:30 AM EDT Clinical Support [address] [address] Sonali Stubbs, COREY [address] [place] [address] 07/08/2024 9:15 AM EDT Office Visit [address] [address] Latrice Ibrahim MD [address] [place] [address] 07/15/2024 10:45 AM EDT Office Visit [address] [address] Name, MD Ananda [address] [place] [address] documented as of this encounter Goals Goal Patient Goal Type Associated Problems Recent Progress Patient-Stated? Author Increase coping skills to promote long-term recovery and improve ability to perform daily activities General No Sonali Stubbs RN documented as of this encounter Visit Diagnoses Not on filedocumented in this encounter Additional Health Concerns Assessment Noted Time PHQ-9 Depression Total Score: 10 024 9:15 AM EDT documented as of this encounter Care Teams Business Records Manager Relationship Specialty Start Date End Date Name, MD Ananda [address] [place] [address] PCP - General Family Medicine 06/01/15 documented as of this encounter
--- OUTSIDE RECORDS SUMMARY | 2024-06-09 13:44 | XMS_ITS | Encounter Summary ---
Author Organization [employer] Address [address] [address] [facility] [facility] [address] 7t [place] [address] Care Team Providers Care Facility Maintenance Manager Name Role Phone Name, Ananda CRANDALL Primary Care Provider [phone] Encounter Details Date Type Department Care Team ([facility] Contact Info) Description 03/28/2022 Orders Only [facility]S [address] [place], [place] [phone] Teresa Moody LPN Social History Tobacco Use [...] Description 06/10/2024 9:30 AM EDT Clinical Support [address] [address] Sonali Stubbs, COREY [address] [place] [address] 07/08/2024 9:15 AM EDT Office Visit [address] [address] Latrice Ibrahim MD [facility] [place] [address] 07/15/2024 10:45 AM EDT Office Visit [facility] [address] [facility] [place] [address] Name, [place] [address] documented as of this encounter Visit Diagnoses Not on filedocumented in this encounter Care Teams Facility Maintenance Manager Relationship Specialty Start Date End Date Name, MD Ananda [facility] [place] [address] PCP - General Family Medicine 06/01/15 documented as of this encounter
--- OUTSIDE RECORDS SUMMARY | 2024-06-09 13:44 | XMS_ITS | Encounter Summary ---
Author Organization [employer] Address [address] [facility] [address] 7t [place] [address] Care Team Providers Care Asbestos Brake Lining Finisher Helper Name Role Phone Name, Ananda CRANDALL Primary Care Provider [phone] Encounter Details Date Type Department Care Team (Late Contact Info) Description 05/10/2022 Orders Only [address] [address] Alis Zavala RN Uncomplicated opioid dependence ([facility]) Social History Tobacco Use Types [...] Description 06/10/2024 9:30 AM EDT Clinical Support [address] [phone] Sonali Stubbs, COREY [address] [place] [address] 07/08/2024 9:15 AM EDT Office Visit [facility] [address] [place] [address] [place] [address] 07/15/2024 10:45 AM EDT Office Visit [address] [address] Name, [place] [address] documented as of this encounter Visit Diagnoses Diagnosis Uncomplicated opioid dependence (CMS/HCC) documented in this encounter Care Teams Asbestos Brake Lining Finisher Helper Relationship Specialty Start Date End Date Name, MD Ananda [address] [place] [address] PCP - General Family Medicine 06/01/15 documented as of this encounter
--- OUTSIDE RECORDS SUMMARY | 2024-06-09 13:44 | XMS_ITS | Encounter Summary ---
Author Organization [employer] Address [address] [facility] [address] 7t [place] [address] Care Team Providers Care Powerhouse Mechanic Name Role Phone Name, Ananda CRANDALL Primary Care Provider Reason for Visit * Reason Onset Date Comments ER Follow-up 09/26/2022 Encounter Details Date Type Department Care Team ([facility] st Contact Info) Description 09/26/2022 Telephone [facility] 230 [place], [place] [phone] Name, MD Ananda 230 [place] [address] ER Follow-up Social History Tobacco Use Types [...] to pt. Through pacific interpreters id - [id number] for below message, pt. 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 [facility] hours are reviewed. * Telephone Encounter - Hawa Morales - 10/01/2022 9:35 AM EDT Tc from pt returning call regarding message below. Please contact pt at [phone] (mohawk speaker) * Telephone Encounter - Em Leblanc RN - 09/27/2022 3:29 PM EDT T/C to pt. On [phone] through [employer] id - [id number] for status check and to schedule follow up apt. No answer. LVM to call back on [phone]. * Telephone Encounter - Netta Alvares - 09/26/2022 11:04 AM EDT Tc from pt calling to advise PCP of an ER visit to [facility] on 09/24/22 for surgery on the left leg. Pt advised will forward to team nurse for f/u. Please contact pt at [phone] (Croatian) documented in this encounter Plan of Treatment Upcoming Encounters Date Type Department Care Team (Late st Contact Info) Description 06/10/2024 9:30 AM EDT Clinical Support [facility] [address] [place] [address] Sonali Stubbs, COREY [address] [place] [address] 07/08/2024 9:15 AM EDT Office Visit [address] [address] Latrice Ibrahim MD [address] [place] [address] 07/15/2024 10:45 AM EDT Office Visit [address] [address] Name, MD Ananda [address] [place] [address] documented as of this encounter Visit Diagnoses Not on filedocumented in this encounter Care Teams Powerhouse Mechanic Relationship Specialty Start Date End Date Name, MD Ananda [address] [place] [address] PCP - General Family Medicine 06/01/15 documented as of this encounter
--- OUTSIDE RECORDS SUMMARY | 2024-06-09 13:45 | XMS_ITS | Encounter Summary ---
Author Organization [employer] Address [address] 7t [place] [address] Care Team Providers Care Automotive Professional Name Role Phone Name, Ananda CRANDALL Primary Care Provider [phone] Reason for Visit * Reason Comments Med Refill Encounter Details Date Type Department Care Team ([facility] Contact Info) Description 12/11/2023 Refill [facility] 230 [place], [place] [phone] Name, MD Ananda 230 [place] [address] Type 2 diabetes mellitus without complication, unspecified whether exterminator helper termite insulin use ([facility]) Social History Tobacco Use [...] Description 06/10/2024 9:30 AM EDT Clinical Support [address] [address] Sonali Stubbs RN [address] [place] [address] 07/08/2024 9:15 AM EDT Office Visit [address] [address] Latrice Ibrahim MD [address] [place] [address] 07/15/2024 10:45 AM EDT Office Visit [address] [address] Ananda Spain MD [address] [place] [address] documented as of this encounter Visit Diagnoses Diagnosis Type 2 diabetes mellitus without complication, unspecified whether chcf insulin use ([facility]) documented in this encounter Additional Health Concerns Assessment Noted Time PHQ-9 Depression Total Score: 10 024 9:15 AM EDT documented as of this encounter Care Teams Automotive Professional Relationship Specialty Start Date End Date Ananda Spain MD [address] [place] [address] PCP - General Family Medicine 06/01/15 documented as of this encounter
--- OUTSIDE RECORDS SUMMARY | 2024-06-09 13:45 | XMS_ITS | Encounter Summary ---
Author Organization [employer] Address [address] 7t [place] [address] Care Team Providers Care Labor Custodian Name Role Phone Name, Ananda CRANDALL Primary Care Provider Encounter Details Date Type Department Care Team ([facility] Contact Info) Description 08/13/2022 Abstract [facility] [address] [place] [address] Name, MD Ananda [address] [place] [address] Social History Tobacco Use Types Packs/Day Years [...] Upcoming Encounters Date Type Department Care Team ([facility] Contact Info) Description 06/10/2024 9:30 AM EDT Clinical Support [facility] [address] [place] [address] Sonali Stubbs RN 230 [place] [address] 07/08/2024 9:15 AM EDT Office Visit [facility] [place] [address] [place] [address] 07/15/2024 10:45 AM EDT Office Visit [facility] [place] [address] Name, [place] [address] documented as of this encounter Procedures Procedure [...] on filedocumented in this encounter Care Teams Labor Custodian Relationship Specialty Start Date [place] [address] PCP - General Family Medicine 06/01/15 documented as of this encounter
--- OUTSIDE RECORDS SUMMARY | 2024-06-09 13:45 | XMS_ITS | Encounter Summary ---
Author Organization [employer] Address [address] [facility] 7t [place] [address] Care Team Providers Care Cream Tester Name Role Phone Name, Ananda CRANDALL Primary Care Provider [phone] Reason for Visit * Reason Onset Date Comments Durable Medical Equipment 06/08/2022 Encounter Details Date Type Department Care Team ([facility] st Contact Info) Description 06/08/2022 Telephone [facility] 230 [place], [place] [phone] Name, MD Ananda 230 [place] [address] Durable Medical Equipment Social History Tobacco Use [...] states unable to get a hold of survey coordinator and would like to know if PCP can send script directly to [facility] . Please contact at [phone] * Telephone Encounter - Arleen Ramirez - 06/11/2022 11:28 AM EDT TC to patient and informed him to contact his transitional care manager as a script for a recliner was emailed to her previously. Patient understood and agreed with plan. * Telephone Encounter - Darian Joiner - 06/08/2022 4:29 PM EDT Tc from pt requesting a script for a recliner chair to be send to L&C please contact pt at [phone] documented in this encounter Plan of Treatment Upcoming Encounters Date Type Department Care Team (Late st Contact Info) Description 06/10/2024 9:30 AM EDT Clinical Support [address] [address] Sonali Stubbs, COREY [address] [place] [address] 07/08/2024 9:15 AM EDT Office Visit [address] [address] Latrice Ibrahim MD [address] [place] [address] 07/15/2024 10:45 AM EDT Office Visit [address] [address] Grabiel, MD Ananda [address] [place] [address] documented as of this encounter Visit Diagnoses Not on filedocumented in this encounter Care Teams Cream Tester Relationship Specialty Start Date End Date Name, MD Ananda [address] [place] [address] PCP - General Family Medicine 06/01/15 documented as of this encounter
--- OUTSIDE RECORDS SUMMARY | 2024-06-09 13:45 | XMS_ITS | Encounter Summary ---
Author Organization [employer] Address [address] [facility] [address] [place] [address] Care Team Providers Care Quill Machine Operator Name Role Phone Name, Ananda CRANDALL Primary Care Provider [phone] Reason for Visit * Reason Comments Med Refill Encounter Details Date Type Department Care Team ([facility] st Contact Info) Description 09/19/2023 Refill [facility] MED & PEDS [address] [place], [place] [phone] Name, MD Ananda 230 [place] [address] Pain of left leg Social History Tobacco [...] Description 06/10/2024 9:30 AM EDT Clinical Support [address] [address] Sonali Stubbs, COREY [address] [place] [address] 07/08/2024 9:15 AM EDT Office Visit [address] [address] Latrice Ibrahim MD [address] [place] [address] 07/15/2024 10:45 AM EDT Office Visit [address] [address] NameAnanda MD [address] [place] [address] documented as of this encounter Visit Diagnoses Diagnosis Pain of left leg documented in this encounter Additional Health Concerns Assessment Noted Time PHQ-9 Depression Total Score: 10 024 9:15 AM EDT documented as of this encounter Care Teams Quill Machine Operator Relationship Specialty Start Date End Date Ananda Spain MD [address] [place] [address] PCP - General Family Medicine 06/01/15 documented as of this encounter
== END 2024-06-09 11:45 | disposition home or self-care (01) ==
LOC: HO.ENCR 11:13
PROVIDERS: PCP Internal Medicine Geriatric Medicine; Visit Provider Registered Nurse Diabetes Educator
DX: E13.9 Other specified diabetes mellitus without complications (principal)

== ENCOUNTER → 2024-06-09 11:13 | Outpatient (BNVA) | payer OTHER, SELFPAY | PROVIDERS: PCP Internal Medicine Geriatric Medicine; Visit Provider Registered Nurse Diabetes Educator | DX: E13.9 Other specified diabetes mellitus without complications (principal); Z79.4 Long term (current) use of insulin | CPT/HCPCS: 99211 ==

== ENCOUNTER 2024-06-12 10:13 | Outpatient (AMB) | payer OTHER, SELFPAY ==
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
[2024-06-12 10:19] VITALS: BP 134/74; PULSE 78; O2SAT 95; BMI 19.9
[2024-06-12 10:35] LABS: Glucose, Whole Blood 104 mg/dL (60-115)
[2024-06-12 10:57] LABS: Glucose, Whole Blood 175 mg/dL (60-115)
--- OUTSIDE RECORDS SUMMARY | 2024-06-12 10:59 | XMS_ITS | Encounter Summary ---
Author Organization [employer] Address [address] 7t [place] [address] Care Team Providers Care Power Distribution Engineer Name Role Phone Name, Ananda CRANDALL Primary Care Provider [phone] Encounter Details Date Type Department Care Team (Latest Contact Info) Description 01/06/2019 Abstract [facility] CONVERSIONS Dental, Provider, DDS Social [...] Care Team ( st Contact Info) Description 07/08/2024 9:15 AM EDT Office Visit [facility] MEDICINE [address] [place] [address] Latrice Ibrahim MD [address] [place] [address] 07/15/2024 10:45 AM EDT Office Visit [facility] MEDICINE [address] [place] [address] [phone] Grabiel, MD Ananda [address] [place] [address] 07/17/2024 11:15 AM EDT Office Visit [facility] OPTOMETRY [address] [place], [place] [phone] Natalie Davis, OD [address] [place] [address] 07/21/2024 9:30 AM EDT Telemedicine [facility] MEDICINE 230 [place], [place] [phone] Geeta Dove, Donte [address] [place] [address] documented as of this encounter Visit Diagnoses Not on filedocumented in this encounter Care Teams Power Distribution Engineer Relationship Specialty Start Date End Date Name, MD Ananda [address] [place] [address] PCP - General Family Medicine 06/01/15 documented as of this encounter
--- OUTSIDE RECORDS SUMMARY | 2024-06-12 10:59 | XMS_ITS | Encounter Summary ---
Author Organization [employer] Address [address] [place] [address] Care Team Providers Care Tours Captain Name Role Phone Name, Ananda CRANDALL Primary Care Provider [phone] Reason for Visit * Reason Onset Date Comments Durable Medical Equipment 09/18/2022 Encounter Details Date Type Department Care Team ([facility] st Contact Info) Description 09/18/2022 Telephone [facility] MEDICINE [address] [place], [place] [phone] Name, MD Ananda 230 [place] [address] Durable Medical Equipment Social History Tobacco Use [...] 09/21/2022 1:49 PM EDT Incoming call from [facility] PT regarding message below. [facility] PT states they have no record of pt ever going to their offices and getting PT. Unsure what next steps should be at this point. * Telephone Encounter - Christy Finn RN - 09/21/2022 1:39 PM EDT TC X1 to [facility] [phone] regarding message below. LVM to return call to nurses. * Telephone Encounter - Lauren Walsh - 09/20/2022 3:14 PM EDT Tc from patient returning call back, regarding message below. Patient states he's going to PT in [facility]. [address] [place] [address] [place] [address] Dr. Mcdaniel. * Telephone Encounter - Christy [...] Care Team (Late st Contact Info) Description 07/08/2024 9:15 AM EDT Office Visit [facility] MEDICINE [address] [place] [address] Latrice Ibrahim MD [address] [place] [address] 07/15/2024 10:45 AM EDT Office Visit [facility] MEDICINE [address] [place] [phone] Name, MD Ananda 230 [place] [address] 07/17/2024 11:15 AM EDT Office Visit [facility] OPTOMETRY [address] [place] [address] TarkaNatalie, OD [address] [place] [address] 07/21/2024 9:30 AM EDT Telemedicine [facility] MEDICINE [address] [place] [address] Geeta Dove, PharmD [address] [place] [address] documented as of this encounter Visit Diagnoses Not on filedocumented in this encounter Care Teams Tours Captain Relationship Specialty Start Date End Date Name, MD Ananda [address] [place] [address] PCP - General Family Medicine 06/01/15 documented as of this encounter
--- OUTSIDE RECORDS SUMMARY | 2024-06-12 10:59 | XMS_ITS | Encounter Summary ---
Author Organization [employer] Address [address] [facility] [address] [place] [address] Care Team Providers Care City Supervisor Name Role Phone Name, Ananda CRANDALL Primary Care Provider [phone] Reason for Visit * Reason Comments OBAT F/U Encounter Details Date Type Department Care Team (Latest Contact Info) Description 06/10/2024 9:30 AM EDT Clinical Support [facility] MEDICINE [address] [place], [place] [phone] Sonali Stubbs, RN [address] [place] [address] Opioid type dependence, continuous (CMS/HCC) (Primary Dx) Social History Tobacco Use [...] as of this encounter Progress Notes * Sonali Stubbs, COREY - 06/10/2024 9:30 AM EDT Hubert Rios is a 59 y.o. male who presents for OBAT RV. Patient has been in the program for 14 years 11 months, since 07/2009. Currently seeing therapist, Yuko Thomas, at [facility], [address] [place] [address]. Haspsychiatrist, Teodoro Bee, in private practice. Prescribed benzo. Current dose of Suboxone is 24/6 mg daily, on a 4 week schedule appt. LFTs done 04/12/24. SUPERINTENDENT MAINTENANCE reviewed by provider. PrEP: declined 04/19/21 PCP: last seen 02/28/24 Tobacco use discussion: Smoking 1 cig per day on 05/13/24, using nicotine patch 21 mg (not every day) LAST VISIT: 05/13/24 Utox: pos bup; (neg bzd Rx'd) He states he is feeling much better. He is recovering from pneumonia in Mar 2024. He is no longer on oxygen. He is proud to tell us that he is now down to 1 cig per day. He has pulse ox which was 98%on RA during this visit. He thinks winter in [place] is too cold, and he always gets sick in winter. He states he was referred to smoking cessation class (CDTM) by PCP. Today 06/10/24 Utox: pos bup Hubert seen today for follow up for opioid use disorder. Reports doing ok. Reports monitoring his oxygen and it has been in an acceptable range. Also kept endocrinology appointments for diabetes follow up. Smoking 1 cigarette a day and missed CDTM appointment, RN sent message to reschedule. Reportsmood has been stable. No concerns with Suboxone, no cravings, substance use, or adverse effects. Plan: Suboxone dosing schedule of 24/6 mg [...] Description 07/08/2024 9:15 AM EDT Office Visit [facility] MEDICINE [address] [place] [address] Latrice Ibrahim MD [address] [place] [address] 07/15/2024 10:45 AM EDT Office Visit [facility] MEDICINE [address] [place] [address] Grabiel, MD Ananda [address] [place] [address] 07/17/2024 11:15 AM EDT Office Visit [facility] OPTOMETRY [address] [place] [address] Natalie Davis, OD [address] [place] [address] 07/21/2024 9:30 AM EDT Telemedicine [facility] MEDICINE [address] [place] [address] Geeta Dove, PharmD [address] [place] [address] documented as of this encounter Goals Goal Patient Goal Type Associated Problems Recent Progress Patient-Stated? Author Increase coping skills to promote long-term recovery and improve ability to perform daily activities General On track( 025 9:51 AM EDT) No Sonali Stubbs, RN Reduce tobacco use (cigarettes, smokeless, etc) Tobacco Use No Sonali Stubbs, RN documented as of this encounter Procedures Procedure Name Priority Date/Time Associated Diagnosis Comments POCT FARA-14 URINE DRUG SCREEN Routine 06/10/2024 9:27 AM EDT Opioid type dependence, continuous (CMS/HCC) documented in this encounter Results * POCT FARA-14 Urine Drug Screen (06/10/2024 9:27 AM EDT) THC Negative Cocaine Screen, Urine Negative Opiate Screen, Urine Negative Methamphetamine Screen Urine Negative Amphetamine Screen, Urine Negative Benzodiazepines Screen, Urine Negative Barbiturate Screen, Urine Negative Methadone Screen, Urine Negative Buprenophine Screen, Urine Positive TCA, Urine Negative MDMA Urine Negative ng/mL Oxycodone Screen, Urine Negative Phencyclidine (PCP), Urine Negative Fentanyl, Urine Negative Urine Urine specimen obtained by clean catch procedure / Unknown 06/10/2024 9:27 AM EDT Luis Espinoza MD POINT OF CARE TEST ENTER/EDIT OR DERABLES Final Result documented in this encounter Visit Diagnoses Diagnosis Opioid type dependence, continuous (CMS/HCC)- Primary Opioid type dependence, continuous documented in this encounter Additional Health Concerns Assessment Noted Time PHQ-9 Depression Total Score: 10 024 9:15 AM EDT documented as of this encounter Care Teams City Supervisor Relationship Specialty Start Date End Date Name, MD Ananda [address] [place] [address] PCP - General Family Medicine 06/01/15 documented as of this encounter
--- OUTSIDE RECORDS SUMMARY | 2024-06-12 10:59 | XMS_ITS | Encounter Summary ---
Author Organization [employer] Address [address] 7[address] [place] [address] Care Team Providers Care Assistant Front Desk Manager Name Role Phone Name, Ananda CRANDALL Primary Care Provider [phone] Encounter Details Date Type Department Care Team (Latest Contact Info) Description 01/09/2021 Abstract [facility] CONVERSIONS Dental, Provider, DDS Social History [...] Department Care Team ( Contact Info) Description 07/08/2024 9:15 AM EDT Office Visit [facility] MEDICINE [address] [place] [address] Latrice Ibrahim MD [address] [place] [address] 07/15/2024 10:45 AM EDT Office Visit [facility] MEDICINE [address] [place] [phone] Name, MD Ananda [address] [place] [address] 07/17/2024 11:15 AM EDT Office Visit [facility] OPTOMETRY [address] [place], [place] [phone] Natalie Davis, OD [address] [place] [address] 07/21/2024 9:30 AM EDT Telemedicine [facility] MEDICINE [address] [place], [place] [phone] Geeta Dove, LoretoD 230 [place] [address] documented as of this encounter Visit Diagnoses Not on filedocumented in this encounter Care Teams Assistant Front Desk Manager Relationship Specialty Start Date End Date Name, MD Ananda 230 [place] [address] PCP - General Family Medicine 06/01/15 documented as of this encounter
--- OUTSIDE RECORDS SUMMARY | 2024-06-12 10:59 | XMS_ITS | Encounter Summary ---
Author Organization [employer] Address [address] [place] [address] Care Team Providers Care Pharmacy Billing Adjudicator Name Role Phone Name, Ananda CRANDALL Primary Care Provider [phone] Reason for Visit * Reason Onset Date Comments Appointment 09/06/2022 Encounter Details Date Type Department Care Team ([facility] Contact Info) Description 09/06/2022 Telephone [facility] ADULT DENTAL [address] [place], [place] [phone] Kelvin Haque, LENNY [address] [place] [address] Appointment Social History Tobacco Use Types Packs/Day [...] Description 07/08/2024 9:15 AM EDT Office Visit [facility] MEDICINE [address] [place] [address] Latrice Ibrahim MD [address] [place] [address] 07/15/2024 10:45 AM EDT Office Visit [facility] MEDICINE [address] [place] [phone] Name, MD Ananda [address] [place] [address] 07/17/2024 11:15 AM EDT Office Visit [facility] OPTOMETRY [address] [place] [address] Tarka, Natalie, OD [address] [place] [address] 07/21/2024 9:30 AM EDT Telemedicine [facility] MEDICINE 230 [place] [address] JamilahiaGeeta, PharmD [address] [place] [address] documented as of this encounter Visit Diagnoses Not on filedocumented in this encounter Care Teams Pharmacy Billing Adjudicator Relationship Specialty Start Date End Date NameAnanda MD [address] [place] [phone] PCP - General Family Medicine 06/01/15 documented as of this encounter
--- OUTSIDE RECORDS SUMMARY | 2024-06-12 10:59 | XMS_ITS | Data Portability ---
Author Organization [employer] [place] - [facility] Address [address] [place] [phone] Care Team Providers Care Box Fabricator Name Role Phone HIM CCA OTHER Assessment Encounter Date Assessment Date Assessment LastModified by Organization Details LastModified Time 04/23/2024 04/23/2024 I have reviewed and agree with the assessment and plan as documented by the dental service technician. I provided real-time medical direction for this encounter and was immediately available to provide additional phone-based assistance as needed. History as noted in EMR and by dental service technician. I would add / emphasize: Patient seen [...] this. Patient was in agreement transported to [facility] subsequently. pallfather Not available 04/24/2024 14:02:36 Plan of Treatment Reminders Order Date Submit Date Provider Last Modified By Organization Details Last Modified Time Details Appointments None recorded. Lab rapid SARS CoV 2 Ag, QL [place], respiratory specimen [address], [id number] 5 14:47:38 rapid flu (A+B) [address], [id number] 5 14:47:39 Referral None recorded. Procedures None [...] SNOMED-CT Code Diagnosis ICD10 Code Diagnosis Note [id number] Dillon Galeano MD Main - [facility] [address] [place] [phone] 04/23/2024 18:36:39 04/24/2024 20:56:44 Hypoxemia [id number] R09.02 Health Concerns Section Related Observation LastModified by Organization Detai ls LastModified Time None Recorded Concern Status LastModified by Organization Details LastModified Time None Recorded Advance Directives Directive None Recorded Payers Encounter Date Sequence Insurance Name Policy Number Policy Tom[place] Covered Member ID Tomlin Member ID Guarantor Name 04/23/2024 1 [facility] - DOS ON OR AFTER 2022 - DUAL ELIGIBLE - ALF OPTIONS AND ONE CARE (MEDICARE REPLACEMENT/ADV ANTAGE - HMO) Hubert Rios [id number] Hubert Rios Notes Date Note Type Note [...] does not report any new symptoms- NE Supervisor [employer] Organization Information for [employer] Business Legal Name: [employer]? Address: [address] [place] [address], [place] [address], Electric Blanket Wirer: Gucci VELEZ No.: [id number] Supervisor [employer] POC Test Results from [employer] Rapid COVID antigen (18:34:09) COVID: - Attachments uploaded as part of this test result can be found under Documents section. Rapid influenza antigen (18:34:10) Flu: - Attachments uploaded as part of this test result can be found under Documents section. .................. .................. .................. .................. .................. .................. .................. ............... Supervisor [employer] Note From [employer] [facility]: Dispatched to above [...] to low 80s, HR increased to 115-120. [facility] contacted, advised of patient complaints, exam findings and test results. [facility] recommends transport to ER for further evaluation due to concerns for PE. Patient agrees with this plan. 911 called, [facility] and [facility] responded. Verbal report given to [facility] Supervisor [employer], took over patient care, will transport to [facility]. Sc8 clear. EOR. .................. .................. .................. .................. .................. .................. .................. ............... [facility] Consulted: Dillon Galeano .................. .................. .................. .................. .................. .................. .................. ............... Disposition: Fulfilled Dillon Galeano MD [address] [facility], [place], [address], [email or web address] 04/24/2024 14:02:45
--- OUTSIDE RECORDS SUMMARY | 2024-06-12 10:59 | XMS_ITS | Encounter Summary ---
Author Organization [employer] Address [address] [place] [address] Care Team Providers Care Retread Builder Name Role Phone Name, Ananda CRANDALL Primary Care Provider [phone] Reason for Visit * Reason Comments Med Refill Encounter Details Date Type Department Care Team ([facility] Contact Info) Description 02/28/2023 Refill [facility] [address] [place], [place] [phone] Name, MD Ananda [address] [place] [address] Pain of left leg Social History Tobacco [...] 07/08/2024 9:15 AM EDT Office Visit [facility] MEDICINE [address] [place] [address] Latrice Ibrahim MD [address] [place] [address] 07/15/2024 10:45 AM EDT Office Visit [facility] MEDICINE [address] [place] [address] Ananda Spain MD [address] [place] [address] 07/17/2024 11:15 AM EDT Office Visit [facility] OPTOMETRY [address] [place] [address] TarkaNatalie, OD [address] [place] [address] 07/21/2024 9:30 AM EDT Telemedicine [facility] MEDICINE [address] [place] [address] Geeta Dove, PharmD [address] [place] [address] documented as of this encounter Visit Diagnoses Diagnosis Pain of left leg documented in this encounter Additional Health Concerns Assessment Noted Time PHQ-9 Depression Total Score: 3 10/04/19 23 2:21 PM EDT documented as of this encounter Care Teams Retread Builder Relationship Specialty Start Date End Date Ananda Spain MD [address] [place] [address] PCP - General Family Medicine 06/01/15 documented as of this encounter
--- OUTSIDE RECORDS SUMMARY | 2024-06-12 10:59 | XMS_ITS | Clinical Summary ---
Author Organization [email or web address] Address [facility] [address] [place] [address] Care Team Providers Care Business Systems Lead Name Role Phone Name, Ananda CRANDALL Primary Care Provider [phone] Allergies No known active allergies Medications docusate sodium (Colace) 100 MG capsule Take 1 capsule by mouth at bed time. 021 Active glucose blood (AdBuddy IncTouch Verio) test strip every 8 (eight) [...] (CMS/HCC) 1 each 2 times daily. Call [facility] if consistently < 95% 1 each 023 Active Alcohol Swabs (Alcohol Prep) 70 % pads USE FOUR TIMES DAILY DIRECTED 023 Active clonazePAM (KlonoPIN) 1 MG tablet Take 1 mg by mouth 2 times daily. 023 Active Lancets (AdBuddy IncTouch Delica Plus Uebaiz27X) [facility] TEST BLOOD SUGAR THREE TIMES DAILY 023 [...] Continuous Glucose Sensor (FreeStyle Kasey 2 Sensor) [facility] USE DIRECTED TO TEST BLOOD SUGAR 8 TIMES PER DAY 2 each Active Continuous Glucose Database Administration Manager (FreeStyle Kasey 2 [place]) device Scan sensor every 8 hours 1 [...] 2 diabetes mellitus without complication, unspecified whether intermediate teacher insulin use (CMS/HCC) USE DIRECTED FOUR TIMES DAILY 100 each 5 024 Active albuterol (2.5 MG/3ML) 0.083% nebulizer solution Take 3 mL (2.5 mg) by nebulization every 6 (six) hours if needed for wheezing. 75 mL 11 024 2024 Active atorvastatin (Lipitor) 40 MG tabletIndicatio ns:Type 2 diabetes mellitus with hyperglycemia, with long-term current use of insulin ([facility]) TAKE 1 TABLET BY MOUTH EVERY DAY [...] ons:Chronic obstructive pulmonary disease, unspecified COPD type ([facility]) INHALE 2 PUFFS BY MOUTH [...] hyperglycemia, with long-term current use of insulin ([facility]) USE DIRECTED TO TEST BLOOD SUGAR THREE TIMES DAILY 100 strip 3 025 Active Suboxone 8-2 MG SL filmIndications :Uncomplicated opioid dependence ([facility]) Place 3 Film under the [...] hyperglycemia, with long-term current use of insulin ([facility]) 1 each by Other route 3 times daily. 100 each 3 024 2024 Discontinued Fluticasone Furoate-Vilante rol 100-25 MCG/ACT aerosol powder Inhale 1 puff Once per day. Same time every day 60 each 3 025 2024 Discontinued(M ed list cleanup (will not trigger notification to Pharmacy)) Umeclidinium [place] (Incruse Ellipta) 62.5 MCG/ACT aerosol powderIndicatio ns:Chronic obstructive pulmonary disease, unspecified COPD type (CMS/[facility]) Inhale 1 Act (62.5 mcg) Once per day. 30 each 11 025 2024 Discontinued(M ed list cleanup (will not trigger notification to Pharmacy)) azithromycin (Zithromax) 500 MG tablet Take 1 tablet (500 mg) by mouth every 3 (three) days. 10 tablet 025 2024 Discontinued(M ed list cleanup (will not trigger notification to Pharmacy)) Suboxone 8-2 MG SL filmIndications :Uncomplicated opioid dependence ([facility]) Place 3 Film under the [...] Encounters Date Type Department Care Team Description 06/12/2024 Orders Only GENERIC EXTERNAL DATA DEPARTMENT Provider, Generic External Data 06/12/2024 Refill [facility] [address] [place] [address] Name, MD Ananda Type 2 diabetes mellitus without complication, unspecified whether longterm insulin use ([facility]) 06/10/2024 9:30 AM EDT Clinical Support [facility] [address] [place] [address] Sonali Stubbs, COREY Opioid type dependence, continuous ([facility]) (Primary Dx) 06/10/2024 Telephone [facility] [address] [place] [phone] Ananda Spain MD 06/10/2024 Travel 06/08/2024 Telephone [facility] [address] [place] [address] Ananda Spain MD Durable Medical Equipment 06/05/[address] [address] Ananda Spain MD 06/03/2024 Orders Only [facility] [address] [place] [phone] Ananda Spain MD 06/03/[address] [address] Sonali Stubbs RN Uncomplicated opioid dependence ([facility]) 06/02/[address] [address] Geeta Dove, PharmD 05/29/2024 Orders Only GENERIC EXTERNAL DATA DEPARTMENT Provider, Generic External Data 05/28/[address] [address] Ananda Spain MD Type 2 diabetes mellitus with hyperglycemia, with long-term current use of insulin ([facility]) 05/27/[address] [address] Evelyn Reeves RN 05/21/2024 9:30 AM EDT Office Visit [address] [address] So Lebron MD Chronic bronchitis, unspecified chronic bronchitis type ([facility]) (Primary Dx); Tobacco dependence 05/21/2024 Travel 05/20/[address] [address] Ananda Spain MD Chart Prep 05/19/2024 Orders Only GENERIC EXTERNAL DATA DEPARTMENT Provider, Generic External Data 05/14/[address] [address] Ananda Spain MD Appointment Request 05/13/2024 9:30 AM EDT Office Visit [facility] [address] [place], [place] [address] [address] Latrice Ibrahim MD Uncomplicated opioid dependence (CMS/HCC) (Primary Dx); Tobacco dependence 05/13/2024 Travel 05/06/2024 Refill [facility] [address] [place] [address] Sonali Stubbs RN Uncomplicated opioid dependence (CMS/HCC) 05/06/2024 Telephone [facility] [address] [place] [address] [place] [phone] Ananda Spain MD No Show (Patient no show for sick on site ) 05/06/2024 Telephone [facility] [address] [place] [phone] Ananda Spain MD No Show 05/06/2024 Telephone [facility] [address] [place] [phone] Ananda Spain MD 04/30/2024 Telephone [facility] [address] [place] [address] Ananda Spain MD chartprep 04/23/2024 Telephone [facility] [address] [place] [phone] Ananda Spain MD 04/23/2024 Refill [facility] [address] [place] [phone] Ananda Spain MD Constipation, unspecified constipation type 04/16/2024 10:00 AM EST Office Visit [facility] [address] [place] [phone] Ananda Spain MD Chronic obstructive pulmonary disease, unspecified COPD type ([facility]/HCC) (Primary Dx); COPD exacerbation ([facility]/HCC); Hypoxia; Non-cardiac chest pain; Type 2 diabetes mellitus with hyperglycemia, with long-term current use of insulin (CMS/HCC) 04/16/2024 Travel 04/15/2024 9:30 AM EST Clinical Support [address] [address] Sonali Stubbs RN Uncomplicated opioid dependence (CMS/HCC) (Primary Dx) 04/15/2024 Travel 04/14/2024 Telephone [facility] [address] [place] [address] Gerda Gutierrez MA chartprep 04/14/2024 Orders Only GENERIC EXTERNAL DATA DEPARTMENT Provider, Generic External Data 04/13/2024 11:00 AM EST Office Visit [facility] [address] [place] [address] Breanna Das NP Cough in adult patient (Primary Dx); COPD with acute exacerbation ([facility]) 04/12/2024 Orders Only GENERIC EXTERNAL DATA DEPARTMENT Provider, Generic External Data 04/10/2024 Telephone [facility] [address] [place] [address] Kim Montez RN 2024 Refill [facility] [address] [place] [phone] Sonali Stubbs, COREY Uncomplicated opioid dependence ([facility]) 04/01/2024 Telephone [facility] [address] [place] [address] Torrie Balderrama RN 03/29/2024 Orders Only GENERIC EXTERNAL DATA DEPARTMENT Provider, Generic External Data 03/21/2024 Refill [facility] [place] [address] Ananda Spain MD Chronic obstructive pulmonary disease, unspecified COPD type ([facility]) 03/18/2024 9:00 AM EST Clinical Support [facility] [place] [address] Sonali Stubbs, COREY Uncomplicated opioid dependence ([facility]) (Primary Dx); Tobacco dependence 03/18/2024 Travel 03/16/2024 Refill [facility] [place] [address] Ananda Spain MD Type 2 diabetes mellitus with hyperglycemia, with long-term current use of insulin ([facility]) from Last 3 Months Immunizations Name Administration [...] is your housing situation today? I have rosauravel salmon 12/19/[address] you [...] Description 07/08/2024 9:15 AM EDT Office Visit [facility] [address] [place] [address] Latrice Ibrahim MD [address] [place] [address] 07/15/2024 10:45 AM EDT Office Visit [facility] [address] [place] [phone] Name, MD Ananda [address] [place] [address] 07/17/2024 11:15 AM EDT Office Visit [facility] [address] [place] [address] Natalie Davis, OD [address] [place] [address] 07/21/2024 9:30 AM EDT Telemedicine [facility] [address] [place] [phone] Geeta Dove, LoretoD [address] [place] [address] Health Maintenance Due Date Last Done Comments [...] ( season) 2023 02/10/2021, 05/18/2020 Depression Monitoring 01/10/2024 07/10/2023, 024 Depression Screening 07/09/2024 07/10/2023, 07/10/19 24 SDOH [...] 025 9:51 AM EDT) No Sonali Stubbs, COREY Reduce tobacco use (cigarettes, smokeless, etc) Tobacco Use No Sonali Stubbs, clinical product specialist Procedure Name Priority Date/Time Associated Diagnosis Comments GLUCOSE, WHOLE BLOOD Routine 06/12/2024 10:49 AM EDT GLUCOSE, WHOLE BLOOD Routine 06/12/2024 10:26 AM EDT POCT FARA-14 URINE DRUG SCREEN Routine 06/10/2024 9:27 AM EDT Opioid type dependence, continuous (CMS/HCC) ALBUMIN, RANDOM URINE W/CREATININE Routine 05/29/2024 8:43 [...] obstructive pulmonary disease, unspecified COPD type (CMS/HCC) GLUCOSE, WHOLE BLOOD Routine 05/19/2024 8:54 AM [...] (CMS/HCC) POCT FARA-14 URINE DRUG SCREEN Routine 04/15/2024 [...] Relevant to Health Maintenance Results * (ABNORMAL) Glucose, Whole Blood (06/12/2024 10:49 AM EDT) Only the most recent of4 resultswithin the time period is included. Glucose, Whole Blood 175(H) 60 - 115 mg/dL [facility] Comment:METER #: [id number] Testing performed in the Endocrinology Department [address] , [address], [place]ah KINCAID. 06/12/2024 10:4 9 AM EDT 06/12/2024 10:57 AM EDT us Generic External Data Provider LAB BLOOD ORDERAB LES Final Result [facility] [address] [place] [address] [phone] * POCT FARA-14 Urine Drug Screen (06/10/2024 9:27 AM EDT) Only the most recent of4 [...] TEST ENTER/EDIT OR DERABLES Final Result * Albumin, Random Urine W/Creatinine (05/29/2024 8:43 AM EDT) Creatinine, Urine 126.68 mg/dL [facility] Microalbumin Urine 15.0 mg/L [facility] Microalbum Creatinine Ratio Ur 11.8 <30 ug/mg cr [facility] Comment:Albumin/Creatinine R atio Reference Ranges: Normal: < 30 ug/mg creatinine Microalbuminuria: 30 - 300 ug/mg creatinineClinical Albuminuria: > 300 ug/mg creatinine 05/29/2024 8:43 AM EDT 05/29/2024 9:05 AM EDT us Generic External Data Provider LAB URINE ORDERAB LES Final Result [facility] [address] [place] [address] [phone] * (ABNORMAL) CBC auto differential (05/27/2024 8:40 AM EDT) Only the most recent of3 resultswithin the time period is included. White Blood Count 8.3 4.8 - 10.8 X10*3/uL [facility] Red Blood Count 4.66 4.60 - 5.80 X10*6/uL [facility] Hemoglobin 13.7(L) 14.0 - 18.0 g/dl [facility] Hematocrit 41.9(L) 42.0 - 52.0 % [facility] Mean Corpuscular Volume 89.9 80.0 - 98.0 fL [facility] Mean Corpuscular Hemoglobin 29.4 27.0 - 33.0 pg [facility] Mean Corpuscular HGB Conc 32.7 31.0 - 36.0 g/dl [facility] Red Cell Distribution Width 14.6 11.0 - 16.0 % [facility] Platelet Count 270 160 - 400 X10*3/uL [facility] Mean Platelet Volume 10.8 9.4 - 12.4 fL [facility] Neutrophils Percent Auto 38.6(L) 45 - 73 % [facility] Imm Gran Pct Auto 0.2 0.0 - 0.4 % [facility] Lymphocytes Percent Auto 43.0(H) 20 - 40 % [facility] Monocytes Percent Auto 10.4 2 - 11 % [facility] Eosinophils Percent Auto 6.6(H) 0 - 4 % [facility] Basophils Percent Auto 1.2 0 - 2 % [facility] NRBC Pct Auto 0.0 0.0 - 0.2 /100WBC [facility] Neutrophils Absolute Auto 3.2 2.0 - 8.3 x10*3/uL [facility] Imm Gran Abs Auto 0.02 0.00 - 0.03 X10*3/uL [facility] Lymphocytes Absolute Auto 3.6 1.2 - 4.9 X10*3/uL [facility] Monocytes Absolute Auto 0.9 0.1 - 1.2 X10*3/uL [facility] Eosinophils Absolute Auto 0.6(H) 0.0 - 0.4 X10*3/uL [facility] Basophils Absolute Auto 0.1 0.0 - 0.2 X10*3/uL [facility] NRBC Abs Auto 0.000 0.0 - 0.012 X10*3/uL [facility] Blood Venous blood specimen / Unknown 05/27/2024 8:40 AM EDT 05/27/2024 8:40 AM EDT us Ananda Spain MD LAB BLOOD ORDERABLES Final Resul t Performing Organization Address [facility] Co de Phone Number [facility] [address] [place] [phone] * Hepatitis A Antibody, Total (05/27/2024 8:40 AM EDT) Hepatitis A Antibody IgG REACTIVE Nonreactive [facility] Comment:The presence of IgG anti-HAV implies past HAV infection(recent or distant) or vaccination against HAV. Blood Venous blood specimen / Unknown 05/27/2024 8:40 AM EDT 05/27/2024 8:40 AM EDT us Ananda Spain MD LAB BLOOD ORDERABLES Final Resul t Performing Organization Address [facility] de Phone Number [facility] [address] [place] [phone] * Hepatitis B surface antigen, EIA (05/27/2024 8:40 AM EDT) Hepatitis B Surface Ag Negative Negative [facility] Blood Venous blood specimen / Unknown 05/27/2024 8:40 AM EDT 05/27/2024 8:40 AM EDT us Ananda Spain MD LAB BLOOD ORDERABLES Final Resul t Performing Organization Address [facility] de Phone Number [facility] [address] [place] [phone] * Hepatitis B Surface Antibody, Qualitative (05/27/2024 8:40 AM EDT) ~Hepatitis B Surface Antibody REACTIVE Nonreactive [facility] Comment:REACTIVE: > 11.99 mI U/mL Blood Venous blood specimen / Unknown 05/27/2024 8:40 AM EDT 05/27/2024 8:40 AM EDT us Ananda Spain MD LAB BLOOD ORDERABLES Final Resul t Performing Organization Address [facility] Co de Phone Number [facility] [address] [place] [phone] * (ABNORMAL) Hemoglobin A1c (05/27/2024 8:40 AM EDT) Hemoglobin A1c 8.3(H) <6.0 % [facility] Comment:Hemoglobin A1C Refer ence Range Adults: 4.8 - 6.0 % Non diabetic: < 6.0 % Goal: < 7.0 %Additional Action Suggested: > 8.0 %Note: Hemoglobin A1c results are invalid for patients with abnormal amounts of HbF. Blood transfusions may impact the HbA1c concentration in the patient sample. Estimated Average Glucose 192 mg/dL [facility] Comment:eAG = Estimated ave rage glucose which is %A1C expressed asaverage glucose, using the formula of the B8O-OyuhxytCurozoe Glucose study (ADAG), Diabetes Care, Vol.31,#8,Oct. 2007 Blood Venous blood specimen / Unknown 05/27/2024 8:40 AM EDT 05/27/2024 8:40 AM EDT us Ananda Spain MD LAB BLOOD ORDERABLES Final Resul t Performing Organization Address [facility] Co de Phone Number [facility] [address] [place] [phone] * (ABNORMAL) Lipid Panel, Standard (05/27/2024 8:40 AM EDT) Triglycerides 73 <150 mg/dL [facility] Comment:Desirable Triglyceri de: less than 150 mg/dLBorderline High Triglyceride 150-199 mg/dLHigh Triglyceride: 200-499 mg/dLVery High Triglyceride: greater than or equal to 5OO mg/dL Cholesterol 221(H) <200 mg/dL [facility] Comment:Desirable Cholestero l: less than 200 mg/dLBorderline High Cholesterol: 200-239 mg/dLHigh Cholesterol: greater than 239 mg/dL LDL Cholesterol Calculated 75 <100 mg/dL [facility] Comment:Desirable LDL: less than 100 mg/dLNear Optimal/Above Optimal LDL: 110- 129 mg/dLBorderline High LDL: 130-159 mg/dLHigh LDL: 160-189 mg/dLVery High LDL: greater than or equal to 190 mg/dL HDL Cholesterol 132 >40 mg/dL [facility] Comment:Desirable HDL: great er than 40 mg/dL Note: This HDL assay may give artificially low results in patients with liver disease. Blood Venous blood specimen / Unknown 05/27/2024 8:40 AM EDT 05/27/2024 8:40 AM EDT us Ananda Name LAB BLOOD ORDERABLES Final Resul t [facility] [address] [place] [phone] * (ABNORMAL) Comprehensive Metabolic Panel (05/27/2024 8:40 AM EDT) Only the most recent of2 resultswithin the time period is included. Sodium 146(H) 135 - 145 mmol/L [facility] Potassium 3.6 3.3 - 5.1 mmol/L [facility] Chloride 109(H) 96 - 108 mmol/L [facility] Carbon Dioxide 30(H) 22 - 29 mmol/L [facility] Anion Gap 11(L) 12 - 20 [facility] Urea Nitrogen (BUN) 14 9 - 16 mg/dL [facility] Creatinine, Serum 0.73 0.5 - 1.4 mg/dL [facility] Estimated Glomerular Filt Rate >60 [facility] Comment:Chronic Kidney Disea se: Estimated GFR < 60 mL/min/1.80u4Ymchxa Kidney Disease: Estimated GFR < 15 mL/min/1.73m2 Glucose 46(LL) 60 - 115 mg/dL [facility] Comment:Critical value for G ELENI: Results called to and read backby: BOZENA Paige Person calling: NAYLA Date: 05-27-24 Time:1035 Calcium 10.2 8.4 - 10.2 mg/dL [facility] Bilirubin, Total 1.3(H) 0.0 - 1.0 mg/dL [facility] Aspartate Amino Transferase 38(H) 5 - 37 U/L [facility] Alanine Aminotransferase 28 0 - 40 U/L [facility] Total Protein 7.3 6.5 - 8.0 g/dL [facility] Albumin Level 4.7 3.5 - 5.0 g/dL [facility] Alkaline Phosphatase 55 39 - 117 U/L [facility] Blood Venous blood specimen / Unknown 05/27/2024 8:40 AM EDT 05/27/2024 8:40 AM EDT us Ananda Spain MD LAB BLOOD ORDERABLES Final Resul t [facility] [address] [place], [place] [phone] * (ABNORMAL) POCT HGB A1C (04/16/2024 10:24 [...] AM EST) Influenza B Negative Negative, Indeterminate [facility] Swab 04/13/2024 11:3 4 AM EST us Breanna Das NP POINT OF CARE TEST ENTER/EDIT O RDERABLES Final Result Performing Organization Address [facility]/ZIP Co de Phone Number [facility] [address] [place] [phone] * Influenza A (ID NOW Rapid Molecular) (04/13/2024 11:34 AM EST) Influenza A Negative Negative, Indeterminate [facility] Swab 04/13/2024 11:3 4 AM EST us Breanna Das NP POINT OF CARE TEST ENTER/EDIT O RDERABLES Final Result Performing Organization Address [facility] Co de Phone Number [facility] [address] [place] [phone] * POCT Rapid COVID Ag (04/13/2024 11:33 AM EST) Rapid COVID Ag Negative Swab 04/13/2024 11:3 3 AM EST us Breanna Das [employer]OVER POINT OF CARE TEST ENTER/EDIT O RDERABLES Final Result * XR Chest 2 Views (04/12/2024 3:17 PM EST) Anatomical Region Laterality Modality Chest Radiographic Altagraica ging 04/12/2024 3:17 PM EST Narrative 04/12/2024 3:18 PM EST ? [facility] ?[address] ?[place] [address] ?XRay Report ? Signed ? Patient: Esparra Seals,Hari ?MR#: ?? [id number] ? : 1965 ?Acct:[id number] ? Age/Sex: 59 / M ?ADM Date: 04/12/24 ? Loc: HO.ED ? Attending Dr: ? Ordering Physician: Pebbles Rooney CNP ?? Date of Service: 04/12/24 ?? Procedure(s): XR chest 2V ?? Accession Number(s): [id number] ? cc: Pebbles Rooney CNP; Name,Ananda CRANDALL [...] MD in OV> ? 04/12/248 ? DD/ 16 ? TD/TT: 04/12/241516 ? Captain Waiter: ? Procedure Note Alex Villanueva - 04/12/2024 [place] [address] XRay Report Signed Patient: Hubert Cruz MMR#: [id number] : 1965Acct:[id number] Age/Sex: 59 / MADM Date: 04/12/24 Loc: HO.ED Attending Dr: Ordering Physician: Pebbles Rooney CNP Date of Service: 04/12/24 Procedure(s): XR chest 2V Accession Number(s): [id number] cc: Pebbles Rooney CNP; Name,Ananda CRANDALL CLINICAL [...] 04/12/24 1518 DD/ 1517 TD/TT: 04/12/24 1517 Captain Waiter: [facility] External Provider IMG XR PROCEDURES Edited Result - Final * High Sensitivity Troponin I (04/12/2024 2:06 PM EST) Only the most recent of2 resultswithin the time period is included. Pathologist [facility] TROPONIN I HIGH SENSITIVITY 6.3 <3.5 - 35.0 ng/L [facility] Comment:The [place] high sens itivity Troponin-I results should beused in conjunction with other diagnostic information suchas ECG, clinical observations and information, and patientsymptoms to aid in the diagnosis of SC. 04/12/2024 2:06 PM EST 04/12/2024 2:09 PM EST Generic External Data Provider LAB BLOOD ORDERAB LES Final Result [facility] [address] [place] [phone] * SARS-CoV-2 RNA, Influenza A/B, and RSV RNA, Ql NAAT (04/12/2024 2:06 PM EST) Only the most recent of2 resultswithin the time period is included. Pathologist [facility] Influenza A PCR NEGATIVE Negative [facility] Influenza B PCR NEGATIVE Negative [facility] Resp Syncy Virus RNA Qual PCR NEGATIVE Negative [facility] SARS COV2 PCR NEGATIVE Negative [facility] Comment:All test results mus t [...] use by authorized laboratories.Testing performed on the [employer] GeneXpert utilizingreal-time RT-PCR.All SARS CoV2 and positive influenza A/B results arereported to [facility]. 04/12/2024 2:06 PM EST 04/12/2024 2:09 PM EST Generic External Data Provider LAB MICROBIOLOGY - GENERAL ORDERABLES Final Result Performing Organization Address [facility] Co de Phone Number [facility] [address] [place] [phone] * Prothrombin Time-INR (04/12/2024 2:06 PM EST) Only the most recent of2 resultswithin the time period is included. [facility] Prothrombin Time 11.3 10.9 - 12.4 SEC [facility] [facility] INTERNATIONAL NORM RATIO 1.0 0.9 - 1.1 [facility] Comment:INTERNATIONAL NORMAL IZED RATIO (INR) [...] LES Final Result Performing Organization Address [facility] de Phone Number [facility] [address] [place] [phone] * B Type Natriuretic Peptide (BNP) (04/12/2024 2:06 PM EST) [facility] B Type Natriuretic Peptide 11 <100 pg/mL [facility] Comment:For those patients w ho are being treated with Natrecor(nesiritide, recombinant BNP), BNP testing should beperformed at least two hours post treatment in order toensure that only endogenous levels of BNP are detected. 04/12/2024 2:06 PM EST 04/12/2024 2:09 PM EST Generic External Data Provider LAB BLOOD ORDERAB LES Final Result Performing Organization Address [facility] de Phone Number [facility] [address] [place] [address] [phone] * Magnesium (04/12/2024 2:06 PM EST) [facility] Magnesium 1.9 1.6 - 2.6 mg/dL [facility] 04/12/2024 2:06 PM EST 04/12/2024 2:09 PM EST [employer] External Data Provider LAB BLOOD ORDERAB LES Final Result Performing Organization Address [facility] de Phone Number [facility] [address] [place] [address] [phone] * XR Chest 1 View (03/29/2024 12:43 PM EST) Anatomical Region Laterality Modality Chest Radiographic Altagracia ging 03/29/2024 12:4 3 PM EST Narrative 03/29/2024 12:44 PM EST ? [facility] ?[address] ?[place] [address] ?XRay Report ? Signed ? Patient: Hubert Cruz ?MR#: ?? [id number] ? : 1965 ?Acct:[id number] ? Age/Sex: 58 / M ?ADM Date: 01/26/25 ? Loc: HO.ED ? Attending Dr: ? Ordering Physician: Tiffanie Ulloa NP ?? Date of Service: 03/29/24 ?? Procedure(s): XR chest 1V ?? Accession Number(s): [id number] ? cc: Name,Ananda CRANDALL; Tiffanie Ulloa NP ? CLINICAL HISTORY: cough, shortness of breath ? 1 view chest x-ray ? Comparison: CR/SR - XR CHEST 2V - 12/19/21 14:24 EDT ?? [place] [id number] - 02/26/19 13:51 EST ? Findings: ?? [...] DD/ 1243 ? TD/TT: 03/29/24 1243 ? Captain Waiter: ? Procedure Note Kay, Image - 03/29/2024 [place] [address] XRay Report Signed Patient: Hubert Cruz MMR#: [id number] : 1965Acct:[id number] Age/Sex: 58 / MADM Date: 03/29/24 Loc: HO.ED Attending Dr: Ordering Physician: Tiffanie Ulloa NP Date of Service: 03/29/24 Procedure(s): XR chest 1V Accession Number(s): [id number] cc: Name,Ananda CRANDALL; Tiffanie Ulloa NP CLINICAL HISTORY: cough, shortness of breath 1 view chest x-ray Comparison: CR/SR - XR CHEST 2V - 12/19/21 14:[address] [id number] - 02/26/19 13:51 EST Findings: Overinflation and [...] 03/29/24 1244 DD/ 1243 TD/TT: 03/29/24 1243 Captain Waiter: [facility] External Provider IMG XR PROCEDURES Edited Result - Final * (ABNORMAL) Hepatic Function Panel (03/29/2024 11:41 AM EST) Bilirubin, Total 1.3(H) 0.0 - 1.0 mg/dL [facility] Bilirubin, Direct 0.4 0.0 - 0.5 mg/dL [facility] Aspartate Amino Transferase 22 5 - 37 U/L [facility] Alanine Aminotransferase 16 0 - 40 U/L [facility] Total Protein 7.8 6.5 - 8.0 g/dL [facility] Albumin Level 4.7 3.5 - 5.0 g/dL [facility] Alkaline Phosphatase 66 39 - 117 U/L [facility] 03/29/2024 11:4 1 AM EST 03/29/2024 11:44 AM EST Generic External Data Provider LAB BLOOD ORDERAB LES Final Result [facility] [address], [place] [phone] * (ABNORMAL) Basic Metabolic Panel (03/29/2024 11:41 AM EST) Pathologist [facility] Sodium 139 135 - 145 mmol/L [facility] Potassium 4.9 3.3 - 5.1 mmol/L [facility] Chloride 103 96 - 108 mmol/L [facility] Carbon Dioxide 30(H) 22 - 29 mmol/L [facility] Anion Gap 11(L) 12 - 20 [facility] Urea Nitrogen (BUN) 15 9 - 16 mg/dL [facility] Creatinine, Serum 0.96 0.5 - 1.4 mg/dL [facility] Creatinine Clr Calc Pharmacy 65.6 [facility] Comment:eGFR (calculated fro m the MDRD study equation) and eCrCl(calculated from the Cockcroft-Gault equation) are based ondifferent parameters and may not yield comparable results.If eCrCl result is absurd, please check patient'sheight/weight. Estimated Glomerular Filt Rate >60 [facility] Comment:Chronic Kidney Disea se: Estimated GFR < 60 mL/min/1.15k0Umxyxd Kidney Disease: Estimated GFR < 15 mL/min/1.73m2 Glucose 203(H) 60 - 115 mg/dL [facility] Calcium 9.9 8.4 - 10.2 mg/dL [facility] 03/29/2024 11:4 1 AM EST 03/29/2024 11:44 AM EST us Generic External Data Provider LAB BLOOD ORDERAB LES Final Result Performing Organization Address [facility] Co de Phone Number [facility] [address] [place] [phone] * Partial Thromboplastin Time, Activated (APTT) (03/29/2024 11:40 AM EST) Partial Thromboplastin Time 30.0 26.0 - 36.8 SEC [facility] Comment:For information rega rding the monitoring of direct thrombininhibitors, please refer to Pharmacy. 03/29/2024 11:4 0 AM EST 03/29/2024 11:44 AM EST us Generic External Data Provider LAB BLOOD ORDERAB LES Final Result Performing Organization Address [facility]/ZIP Co de Phone Number [facility] [address] [place] [phone] * (ABNORMAL) Hepatitis C Antibody with Reflex to HCV, RNA, Quantitative, Real- Time PCR (03/29/2023 9:12 AM EST) Hepatitis C Antibody Reactive( A) Nonreactive [facility] Comment:Presumptive evidence of antibodies to HCV. 03/29/2023 9:12 AM EST 03/29/2023 11:11 AM EST Latrice Ibrahim MD LAB BLOOD ORDERABLES Final Resul t Performing Organization Address [facility]/ZIP Co de Phone Number [facility] [address] [place] [phone] * HIV-1/2 Antigen and Antibodies, Fourth Generation, with Reflexes (03/29/2023 9:12 AM EST) HIV AB/AG Nonreactive Nonreactive [facility] Comment:HIV-1 p24 Ag and/or HIV-1/HIV-2 Ab not detected.A test result that is nonreactive does not exclude thepossibility of exposure to or infection with HIV-1 and/orHIV-2. Nonreactive results in this assay for individualswith prior exposure to HIV-1 and/or HIV-2 may be due toantigen and antibody levels that are below the limit ofdetection of this assay.The [employer] HIV Ag/Ab Combo assay result andsupplemental assay results should be interpreted inconjunction with the patient's clinical presentation,history and other laboratory results. If the results areinconsistent with clinical evidence, additional testing issuggested to confirm the result. 03/29/2023 9:12 AM EST 03/29/2023 11:11 AM EST Latrice Ibrahim MD LAB BLOOD ORDERABLES Final Resul t Performing Organization Address City/[facility]/ZIP Co de Phone Number [facility] [address] [place] [address] [phone] * Hm Colonoscopy (08/16/2015 1:52 PM EDT) Colonoscopy Normal Normal Narrative Gloria Álvarez - 08/16/2015 1:52 PM EDT Recommended 10 year follow up Historical Provider MD HEALTH MAINTENANCE Final Result from Last 3 Months or Most Recently Relevant to Health Maintenance Insurance [facility] DENTAL - [facility] Care Teams Business Systems Lead Relationship Specialty Start Date End Date Name, MD Ananda [address] [place] [address] PCP - General Family Medicine 06/01/15
--- OUTSIDE RECORDS SUMMARY | 2024-06-12 10:59 | XMS_ITS | Encounter Summary ---
Author Organization [employer] Address [address] [facility] [address] [place] [address] Care Team Providers Care Union Carpenter Name Role Phone Name, Ananda CRANDALL Primary Care Provider [phone] Encounter Details Date Type Department Care Team ([facility] st Contact Info) Description 03/28/2023 Abstract [facility] MEDICINE [address] [place], [place] [phone] Name, MD Ananda [address] [place] [address] Social History Tobacco Use Types Packs/Day Years [...] t he electric, gas, oil or water [email or web address] threatened to shut off services in your [...] Description 07/08/2024 9:15 AM EDT Office Visit [facility] MEDICINE [address] [place] [address] Latrice Ibrahim MD [address] [place] [address] 07/15/2024 10:45 AM EDT Office Visit [facility] MEDICINE [address] [place] [address] Ananda Spain MD [address] [place] [address] 07/17/2024 11:15 AM EDT Office Visit [facility] OPTOMETRY [address] [place] [address] Tarka, Natalie, OD [address] [place] [address] 07/21/2024 9:30 AM EDT Telemedicine [facility] MEDICINE [address] [place] [address] Geeta Dove, PharmD [address] [place] [address] documented as of this encounter Visit Diagnoses Not on filedocumented in this encounter Additional Health Concerns Assessment Noted Time PHQ-9 Depression Total Score: 3 10/04/19 23 2:21 PM EDT documented as of this encounter Care Teams Union Carpenter Relationship Specialty Start Date End Date Ananda Spain MD [address] [place] [address] PCP - General Family Medicine 06/01/15 documented as of this encounter
--- OUTSIDE RECORDS SUMMARY | 2024-06-12 10:59 | XMS_ITS | Encounter Summary ---
Author Organization [employer] Address [address] [facility] [address] [place] [address] Care Team Providers Care Game Programmer Name Role Phone Name, Ananda CRANDALL Primary Care Provider [phone] Reason for Visit * Reason Onset Date Comments Prior Authorization 05/07/2022 Appointment 05/07/2022 Encounter Details Date Type Department Care Team ([facility] st Contact Info) Description 05/07/2022 Telephone [facility] ADULT DENTAL [address] [place] [address] Kelvin Haque, DDS [address] [place] [address] Prior Authorization; Appointment Social History Tobacco Use [...] specify if for partial. Don't see if [facility] has approved partials for patient. Patient verifying. DR documented in this encounter Plan of Treatment Upcoming Encounters Date Type Department Care Team (Late st Contact Info) Description 07/08/2024 9:15 AM EDT Office Visit [facility] MEDICINE [address] [place] [address] Latrice Ibrahim MD [address] [place] [address] 07/15/2024 10:45 AM EDT Office Visit [address] [address] Name, MD Ananda [address] [place] [address] 07/17/2024 11:15 AM EDT Office Visit [facility] OPTOMETRY [address] [place] [address] TarNatalie elizabeth, OD [address] [place] [address] 07/21/2024 9:30 AM EDT Telemedicine [facility] MEDICINE [address] [place] [address] Geeta Dove, PharmD [address] [place] [address] documented as of this encounter Visit Diagnoses Not on filedocumented in this encounter Care Teams Game Programmer Relationship Specialty Start Date End Date Name, MD Ananda [address] [place] [address] PCP - General Family Medicine 06/01/15 documented as of this encounter
--- OUTSIDE RECORDS SUMMARY | 2024-06-12 10:59 | XMS_ITS | Encounter Summary ---
Author Organization [employer] Address [address] [facility] [address]t [place] [address] Care Team Providers Care Cinetechnician Name Role Phone Name, Ananda CRANDALL Primary Care Provider Encounter Details Date Type Department Care Team ([facility] Contact Info) Description 06/12/2024 Orders Only GENERIC EXTERNAL DATA [...] Description 07/08/2024 9:15 AM EDT Office Visit [facility] MEDICINE [address] [place] [address] Latrice Ibrahim MD [address] [place] [address] 07/15/2024 10:45 AM EDT Office Visit [address] [address] Ananda Spain MD [address] [place] [address] 07/17/2024 11:15 AM EDT Office Visit [facility] OPTOMETRY [address] [place] [address] TarkaNatalie, OD [address] [place] [address] 07/21/2024 9:30 AM EDT Telemedicine [facility] MEDICINE [address] [place] [address] Geeta Dove, PharmD [address] [place] [address] documented as of this encounter Goals Goal [...] WHOLE BLOOD Routine 06/12/2024 10:26 AM EDT documented in this encounter Results * (ABNORMAL) Glucose, Whole Blood (06/12/2024 10:49 AM EDT) Glucose, Whole Blood 175(H) 60 - 115 mg/dL [facility] Comment:METER #: [id number] Testing performed in the Endocrinology Department [address], [address], [facility]. 06/12/2024 10:4 9 AM EDT 06/12/2024 10:57 AM EDT us Generic External Data Provider LAB BLOOD ORDERAB LES Final Result Performing Organization Address [facility]/ZIP Co de Phone Number [facility] [address] [place] [phone] * Glucose, Whole Blood (06/12/2024 10:26 AM EDT) Glucose, Whole Blood 104 60 - 115 mg/dL [facility] Comment:METER #: [id number] 5Testing performed in the Endocrinology Department [address], [address], [facility]. 06/12/2024 10:2 6 AM EDT 06/12/2024 10:34 AM EDT us Generic External Data Provider LAB BLOOD ORDERAB LES Final Result Performing Organization Address [facility]/ZIP Co de Phone Number [facility] [address] [place] [phone] documented in this encounter Visit Diagnoses Not on filedocumented in this encounter Additional Health Concerns Assessment Noted Time PHQ-9 Depression Total Score: 10 024 9:15 AM EDT documented as of this encounter Care Teams Cinetechnician Relationship Specialty Start Date End Date Name, MD Ananda [address] [place] [address] PCP - General Family Medicine 06/01/15 documented as of this encounter
--- OUTSIDE RECORDS SUMMARY | 2024-06-12 10:59 | XMS_ITS | Encounter Summary ---
Author Organization [employer] Address [address] [facility] [address] [facility] [address] 7t [place] [address] Care Team Providers Care Steel Finisher Name Role Phone Name, Ananda CRANDALL Primary Care Provider [phone] Reason for Visit * Reason Onset Date Comments case in lab 10/03/2022 Encounter Details Date Type Department Care Team ([facility] st Contact Info) Description 10/03/2022 Telephone [facility] ADULT DENTAL [address] [place] [address] Kelvin Haque, DDS [address] [place] [address] case in lab Social History Tobacco Use [...] - 10/03/2022 2:29 PM EDT Hubert from [employer] called in noel that the soonest they [...] 07/08/2024 9:15 AM EDT Office Visit [facility] MEDICINE [address] [place] [address] Latrice Ibrahim MD [address] [place] [address] 07/15/2024 10:45 AM EDT Office Visit [facility] MEDICINE [address] [place] [address] Ananda Spain MD [address] [place] [address] 07/17/2024 11:15 AM EDT Office Visit [facility] OPTOMETRY [address] [place] [address] TarkaNatalie, OD [address] [place] [address] 07/21/2024 9:30 AM EDT Telemedicine [facility] MEDICINE [address] [place] [address] Geeta Dove, PharmD [address] [place] [address] documented as of this encounter Visit Diagnoses Not on filedocumented in this encounter Additional Health Concerns Assessment Noted Time PHQ-9 Depression Total Score: 3 10/04/19 23 2:21 PM EDT documented as of this encounter Care Teams Steel Finisher Relationship Specialty Start Date End Date Ananda Spain MD [address] [place] [address] PCP - General Family Medicine 06/01/15 documented as of this encounter
--- OUTSIDE RECORDS SUMMARY | 2024-06-12 10:59 | XMS_ITS | Encounter Summary ---
Author Organization [employer] Address [address] [facility] [facility] [address] 7[address] [place] [address] Care Team Providers Care Senior Packaging Engineer Name Role Phone NameAnanda MD Primary Care Provider [phone] Reason for Referral * Consultation (Routine) - Authorized Specialty Diagnoses / Procedures Referred By Contac t Referred To Contact Pharmacy Diagnoses Tobacco dependence NameAnanda MD [address] [place] [address] Phone: tel: fax: Referral ID Status Reason Start Date Expiration Date Visits Requested Visits Authorized [id number] Authorized Consult and Treat 06/10/2024 06/10/2025 6 6 Encounter Details Date Type Department Care Team ([facility] st Contact Info) Description 06/10/2024 Telephone [facility] MEDICINE [address] [place] [address] [phone] Ananda Sharpe MD [address] [place], [place] [phone] Social History Tobacco Use Types Packs/Day Years [...] your housing situation today? I have rosaura samlon 12/19/[address] you li [...] Addendum Note - Ananda Sharpe MD - 06/10/2024 3:05 PM EDTAddended by: ANANDA SHARPE on: 06/10/2024 03:05 PM Modules accepted: Orders * Telephone Encounter - Nichole Washington - 06/10/2024 2:54 PM EDT Pharmacy is requesting an updated CDTM referral with a diagnosis of smoking cessation / tobacco dependence F17.200 Tobacco dependence. This is to replace existing referral that no longer meets visit requirements. Please send at your earliest convenience. Thank you! documented in this encounter Plan of Treatment Upcoming Encounters Date Type Department Care Team (Late st Contact Info) Description 07/08/2024 9:15 AM EDT Office Visit [facility] MEDICINE [address] [place] [address] Latrice Ibrahim MD [address] [place] [address] 07/15/2024 10:45 AM EDT Office Visit [facility] MEDICINE [address] [place] [address] Ananda Sharpe MD [address] [place] [address] 07/17/2024 11:15 AM EDT Office Visit [facility] OPTOMETRY [address] [place] [address] Tarka, Natalie, OD [address] [place] [address] 07/21/2024 9:30 AM EDT Telemedicine [facility] MEDICINE [address] [place] [address] Geeta Dove, PharmD [address] [place] [address] Scheduled Referrals Name Type Priority Associated Diagnoses Orde r Schedule Referral to Pharmacy CDTM Outpatient Referral Routine Tobacco dependence Ordered: 06/10/2024 documented as of this encounter Goals Goal Patient Goal Type Associated Problems Recent Progress Patient-Stated? Author Increase coping skills to promote long-term recovery and improve ability to perform daily activities General On track( 025 9:51 AM EDT) No Sonali Stubbs, RN Reduce tobacco use (cigarettes, smokeless, etc) Tobacco Use No Sonali Stubbs, COREY documented as of this encounter Visit Diagnoses Diagnosis Tobacco dependence- Primary Tobacco use disorder documented in this encounter Additional Health Concerns Assessment Noted Time PHQ-9 Depression Total Score: 10 024 9:15 AM EDT documented as of this encounter Care Teams Senior Packaging Engineer Relationship Specialty Start Date End Date NameAnanda MD [address] [place] [address] PCP - General Family Medicine 06/01/15 documented as of this encounter
--- OUTSIDE RECORDS SUMMARY | 2024-06-12 10:59 | XMS_ITS | Encounter Summary ---
Author Organization [employer] Address [address] [facility] [address] [place] [address] Care Team Providers Care Pot Runner Name Role Phone Name, Ananda CRANDALL Primary Care Provider [phone] Reason for Visit * Reason Comments Med Refill Encounter Details Date Type Department Care Team ([facility] Contact Info) Description 03/08/2024 Refill [facility] MEDICINE [address] [place], [place] [phone] Name, MD Ananda [address] [place], [place] [phone] Chronic obstructive pulmonary disease, unspecified COPD type [...] 9:15 AM EDT Office Visit [facility] MEDICINE [address] [place] [address] Latrice Ibrahim MD [address] [place] [address] 07/15/2024 10:45 AM EDT Office Visit [facility] MEDICINE [address] [place] [address] Ananda Spain MD [address] [place] [address] 07/17/2024 11:15 AM EDT Office Visit [facility] OPTOMETRY [address] [place] [address] Natalie Davis, OD [address] [place] [address] 07/21/2024 9:30 AM EDT Telemedicine [facility] MEDICINE [address] [place] [address] Geeta Dove, Donte [address] [place] [address] documented as of this encounter Visit Diagnoses Diagnosis Chronic obstructive pulmonary disease, unspecified COPD type (CMS/HCC) documented in this encounter Additional Health Concerns Assessment Noted Time PHQ-9 Depression Total Score: 10 024 9:15 AM EDT documented as of this encounter Care Teams Pot Runner Relationship Specialty Start Date End Date Name, MD Ananda [address] [place] [address] PCP - General Family Medicine 06/01/15 documented as of this encounter
--- OUTSIDE RECORDS SUMMARY | 2024-06-12 10:59 | XMS_ITS | Encounter Summary ---
Author Organization [employer] Address [address] [facility] [address] [place] [address] Care Team Providers Care Consumer Recruiter Name Role Phone Name, Ananda CRANDALL Primary Care Provider [phone] Encounter Details Date Type Department Care Team (Late Contact Info) Description 05/10/2022 Orders Only [facility] MEDICINE [address] [place] [address] [phone] Alis Zavala, COREY Uncomplicated opioid dependence ([facility]) Social History Tobacco Use Types [...] Department Care Team (Late Contact Info) Description 07/08/2024 9:15 AM EDT Office Visit [facility] MEDICINE [address] [place] [address] [phone] Latrice Ibrahim MD [address] [place] [address] [phone] 07/15/2024 10:45 AM EDT Office Visit [facility] MEDICINE [address] [place] [address] Name, MD Ananda [address] [place] [address] 07/17/2024 11:15 AM EDT Office Visit [facility] OPTOMETRY [address] [place] [address] Natalie Davis, OD [address] [place] [address] 07/21/2024 9:30 AM EDT Telemedicine [facility] MEDICINE [address] [place] [address] Geeta Dove, PharmD [address] [place] [address] documented as of this encounter Visit Diagnoses Diagnosis Uncomplicated opioid dependence ([facility]) documented in this encounter Care Teams Consumer Recruiter Relationship Specialty Start Date End Date NameAnanda MD [address] [place] [address] PCP - General Family Medicine 06/01/15 documented as of this encounter
--- OUTSIDE RECORDS SUMMARY | 2024-06-12 10:59 | XMS_ITS | Encounter Summary ---
Author Organization [employer] Address [address] [facility] [address] 7t [place] [address] Care Team Providers Care Channel Opener Outsoles Name Role Phone Name, Ananda CRANDALL Primary Care Provider [phone] Reason for Visit * Reason Comments Med Refill Encounter Details Date Type Department Care Team ([facility] Contact Info) Description 04/25/2022 Refill [facility] MEDICINE [address] [place] [address] [phone] Name, MD Ananda [address] [place] [address] 6[address] Wheezing (Primary Dx) Social History Tobacco Use [...] Upcoming Encounters Date Type Department Care Team ([facility] Contact Info) Description 07/08/2024 9:15 AM EDT Office Visit [facility] MEDICINE [address] [place] [address] [phone] Latrice Ibrahim MD [address] [place] [address] 07/15/2024 10:45 AM EDT Office Visit [facility] MEDICINE [address] [place] [address] 69714 NameAnanda MD 230 [place] [address] 07/17/2024 11:15 AM EDT Office Visit [facility] OPTOMETRY [address] [place] [address] Tarka, Natalie, OD [address] [place] [address] 07/21/2024 9:30 AM EDT Telemedicine [facility] MEDICINE [address] [place] [address] 13042 Geeta Dove, PharmD 230 [place] [address] documented as of this encounter Visit Diagnoses Diagnosis Wheezing- Primary documented in this encounter Care Teams Channel Opener Outsoles Relationship Specialty Start Date End Date NameAnanda MD [address] [place] [address] 11036 PCP - General Family Medicine 06/01/15 documented as of this encounter
--- OUTSIDE RECORDS SUMMARY | 2024-06-12 10:59 | XMS_ITS | Encounter Summary ---
Author Organization [employer] Address [address] [facility] [address] 7t [place] [address] Care Team Providers Care Door Paneler Name Role Phone Name, Ananda CRANDALL Primary Care Provider [phone] Encounter Details Date Type Department Care Team (Latest Contact Info) Description 06/10/2024 Travel Social History Tobacco Use Types Packs/Day [...] 9:15 AM EDT Office Visit [facility] MEDICINE [address] [place] [address] 81385 Latrice Ibrahim MD [address] [place] [address] 0[address] 07/15/2024 10:45 AM EDT Office Visit [facility] MEDICINE [address] [place] [address] 40553 Ananda Spain MD [address] [place] [address] 67[address] 07/17/2024 11:15 AM EDT Office Visit [facility] OPTOMETRY [address] [place] [address] TarNatalie elizabeth, OD [address] [place] [address] 07/21/2024 9:30 AM EDT Telemedicine [facility] MEDICINE [address] [place] [address] 05995 Geeta Dove, PharmD [address] [place] [address] 399[address] documented as of this encounter Goals Goal [...] Noted Time PHQ-9 Depression Total Score: 10 05/08/2 024 9:15 AM EDT documented as of this encounter Care Teams Door Paneler Relationship Specialty Start Date End Date Name, MD Ananda 230 [place] [address] PCP - General Family Medicine 06/01/15 documented as of this encounter
--- OUTSIDE RECORDS SUMMARY | 2024-06-12 10:59 | XMS_ITS | Encounter Summary ---
Author Organization [employer] Address [address] [facility] [address] 7t [place] [address] Care Team Providers Care Boat Builder Name Role Phone Name, Ananda CRANDALL Primary Care Provider [phone] Reason for Visit * Reason Comments Med Refill Encounter Details Date Type Department Care Team (Late Contact Info) Description 12/07/2022 Refill [facility] MEDICINE [address] [place] [address] [phone] Name, MD Ananda [address] [place] [address] 12931 Type 2 diabetes mellitus without complication, unspecified whether ferry terminal agent insulin use ([facility]); Type 2 diabetes mellitus without complication, with long-term current use of insulin ([facility]) Social History Tobacco Use [...] Upcoming Encounters Date Type Department Care Team ([facility] Contact Info) Description 07/08/2024 9:15 AM EDT Office Visit [facility] MEDICINE [address] [place] [address] 30746 Latrice Ibrahim MD 230 [place] [address] 07/15/2024 10:45 AM EDT Office Visit [facility] MEDICINE 230 [place] [address] Name, MD Ananda 230 [place] [address] 07/17/2024 11:15 AM EDT Office Visit [facility] OPTOMETRY 267 [place] [address] Natalie Davis, OD 267 [place] [address] 07/21/2024 9:30 AM EDT Telemedicine [facility] MEDICINE [address] [place] [address] 79386 Geeta Dove, PharmD 230 [place] [address] documented as of this encounter Visit Diagnoses Diagnosis Type 2 diabetes mellitus without complication, unspecified whether shelter insulin use ([facility]) documented in this encounter Additional Health Concerns Assessment Noted Time PHQ-9 Depression Total Score: 3 10/04/19 23 2:21 PM EDT documented as of this encounter Care Teams Boat Builder Relationship Specialty Start Date End Date Name, MD Ananda [address] [place] [address] 090[address] PCP - General Family Medicine 06/01/15 documented as of this encounter
--- OUTSIDE RECORDS SUMMARY | 2024-06-12 10:59 | XMS_ITS | Encounter Summary ---
Author Organization [employer] Address [address] [facility] [address] 7t [place] [address] Care Team Providers Care Flow Trader Name Role Phone Name, Ananda CRANDALL Primary Care Provider [phone] Encounter Details Date Type Department Care Team ([facility] Contact Info) Description 03/28/2022 Orders Only [facility] CHC MED & PEDS [address] [place], [place] [phone] Teresa Moody LPN Social History Tobacco Use [...] Encounters Date Type Department Care Team ([facility] Contact Info) Description 07/08/2024 9:15 AM EDT Office Visit [facility] MEDICINE [address] [place] [address] [phone] Latrice Ibrahim MD 230 [place] [address] 07/15/2024 10:45 AM EDT Office Visit [facility] MEDICINE [address] [place] [address] 025[address] Name, MD Ananda 230 [place] [address] 07/17/2024 11:15 AM EDT Office Visit [facility] OPTOMETRY 267 [place] [address] Natalie Davis, OD 267 [place] [address] 07/21/2024 9:30 AM EDT Telemedicine [facility] MEDICINE [address] [place] [address] 601[address] Geeta Dove, LoretoD 230 [place] [address] documented as of this encounter Visit Diagnoses Not on filedocumented in this encounter Care Teams Flow Trader Relationship Specialty Start Date End Date Name, MD Ananda [address] [place] [address] 68487 PCP - General Family Medicine 06/01/15 documented as of this encounter
--- OUTSIDE RECORDS SUMMARY | 2024-06-12 10:59 | XMS_ITS | Encounter Summary ---
Author Organization [employer] Address [address] [facility] [address] 7t [place] [address] Care Team Providers Care Journeyman Painter Name Role Phone Name, Ananda CRANDALL Primary Care Provider [phone] Reason for Visit * Reason Comments Med Refill Encounter Details Date Type Department Care Team ([facility] Contact Info) Description 06/12/2024 Refill [facility] MED[facility]INE 230 [place], [place] [phone] Name, MD Ananda 230 [place], [place] [phone] Type 2 diabetes mellitus without complication, unspecified whether terminal gauger supervisor insulin use ([facility]) Social History Tobacco [...] 9:15 AM EDT Office Visit [facility] MEDICINE [address] [place] [address] 50854 Latrice Ibrahim MD [address] [place] [address] 07/15/2024 10:45 AM EDT Office Visit [facility]INE [address] [place] [address] 30493 Ananda Spain MD [address] [place] [address] 6[address] 07/17/2024 11:15 AM EDT Office Visit [facility] OPTOMETRY [address] [place] [address] 96560 Natalie Davis, OD [address] [place] [address] 07/21/2024 9:30 AM EDT Telemedicine [facility] MEDICINE [address] [place] [address] 96690 Geeta Dove, LoretoD [address] [place] [address] 92238 documented as of this encounter Goals Goal [...] without complication, unspecified whether correction insulin use ([facility]) documented in this encounter Additional Health Concerns Assessment Noted Time PHQ-9 Depression Total Score: 10 024 9:15 AM EDT documented as of this encounter Care Teams Journeyman Painter Relationship Specialty Start Date End Date Name, MD Ananda 230 [place] [address] PCP - General Family Medicine 06/01/15 documented as of this encounter
--- OUTSIDE RECORDS SUMMARY | 2024-06-12 10:59 | XMS_ITS | Encounter Summary ---
Author Organization [employer] Address [address] [facility] [address] 7t [place] [address] Care Team Providers Care Lease Purchase Driver Name Role Phone Name, Ananda CRANDALL Primary Care Provider [phone] Encounter Details Date Type Department Care Team ([facility] Contact Info) Description 02/14/2022 Abstract [facility] MEDICINE [address] [place] [address] 40641 ProviderDamari MD Social History Tobacco Use Types [...] Upcoming Encounters Date Type Department Care Team ([facility] Contact Info) Description 07/08/2024 9:15 AM EDT Office Visit [facility] MEDICINE [address] [place] [address] 40616 Latrice Ibrahim MD [address] [place] [address] 9[address] 07/15/2024 10:45 AM EDT Office Visit [address] [address] Name, MD Ananda 230 [place] [address] 07/17/2024 11:15 AM EDT Office Visit [facility] OPTOMETRY 267 [place] [address] Natalie Davis, OD 267 [place] [address] 07/21/2024 9:30 AM EDT Telemedicine [facility] MEDICINE 230 [place] [address] Geeta Dove, PharmD 230 [place] [address] documented as of this encounter Visit Diagnoses Not on filedocumented in this encounter Care Teams Lease Purchase Driver Relationship Specialty Start Date End Date Name, MD Ananda [address] [place] [address] 59200 PCP - General Family Medicine 06/01/15 documented as of this encounter
--- OUTSIDE RECORDS SUMMARY | 2024-06-12 11:00 | XMS_ITS | Encounter Summary ---
Author Organization [employer] Address [address] [facility] [facility] [address] 7t [place] [address] Care Team Providers Care Earth Observations Chief Scientist Name Role Phone Name, Ananda CRANDALL Primary Care Provider [phone] Encounter Details Date Type Department Care Team ([facility] Contact Info) Description 08/13/2022 Abstract [facility] MEDICINE [address] [place] [address] [phone] Name, MD Ananda [address] [place] [address] [phone] Social History Tobacco Use Types Packs/Day Years [...] Upcoming Encounters Date Type Department Care Team ([facility] Contact Info) Description 07/08/2024 9:15 AM EDT Office Visit [facility] [address] [place] [address] [phone] Latrice Ibrahim MD 230 [place], [place] [phone] 07/15/2024 10:45 AM EDT Office Visit [facility] 230 [place] [address] Name, MD Ananda 230 [place] [address] 07/17/2024 11:15 AM EDT Office Visit [facility] OPTOMETRY 267 [place] [address] Tarka, Natalie, OD 267 [place] [address] 07/21/2024 9:30 AM EDT Telemedicine [facility] 230 [place] [address] JamilahiaGeeta, PharmD 230 [place] [address] documented as of this encounter Procedures Procedure [...] on filedocumented in this encounter Care Teams Earth Observations Chief Scientist Relationship Specialty Start Date End Date Name, MD Ananda [address] [place] [address] 06794 PCP - General Family Medicine 06/01/15 documented as of this encounter
--- OUTSIDE RECORDS SUMMARY | 2024-06-12 11:00 | XMS_ITS | Encounter Summary ---
Author Organization [employer] Address [address] [facility] [address] 7t [place] [address] Care Team Providers Care Certified Personal Finance Counselor Name Role Phone Name, Ananda CRANDALL Primary Care Provider [phone] Encounter Details Date Type Department Care Team ([facility] st Contact Info) Description 06/02/2024 Telephone [facility] MEDICINE 230 [place], [place] [phone] Geeta Dove, PharmD 230 [place], [place] [phone] Social History Tobacco Use Types Packs/Day Years [...] encounter Miscellaneous Notes * Telephone Encounter - Sonali Stubbs RN - 06/10/2024 9:41 AM EDT Hi, saw Hubert today for OBAT follow up. He said he still really does want to participate in CDTM and had some confusion about incoming calls and caller ID. I see you have already tried calling him, but could you try once more? Thank you! Sonali * Telephone Encounter - Geeta Dove PharmD - 06/02/2024 11:32 AM EDT Patient no showed to CDTM- smoking cessation in person yesterday AM. He was outreached by pharmacy CHW yesterday PM and rescheduled into an open spot for today, 06/02, as a televisit. Outgoing call to patient at 9:30 am for CDTM, as scheduled. States he is at the store & requests a call back at 11:30 am. Outgoing call to patient at 11:30 am for CDTM as requested. No answer. [facility] requesting return call to pharmacy CHW at [phone] for scheduling. documented in this encounter Plan of Treatment Upcoming Encounters Date Type Department Care Team (Late st Contact Info) Description 07/08/2024 9:15 AM EDT Office Visit [facility] MEDICINE [address] [place] [address] 71315 Latrice Ibrahim MD 230 [place] [address] 07/15/2024 10:45 AM EDT Office Visit [facility] MEDICINE [address] [place] [address] 19537 Name, MD Ananda 230 [place], [place] 07/17/2024 11:15 AM EDT Office Visit [facility] OPTOMETRY 267 [place] [address] Natalie Davis, OD 267 [place] [address] 07/21/2024 9:30 AM EDT Telemedicine [facility] MEDICINE [address] [place] [address] 836[address] Geeta Dove, PharmD [address] [place] [address] 18267 documented as of this encounter Goals Goal [...] documented as of this encounter Care Teams Certified Personal Finance Counselor Relationship Specialty Start Date End Date Name, MD Ananda [address] [place] [address] PCP - General Family Medicine 06/01/15 documented as of this encounter
--- OUTSIDE RECORDS SUMMARY | 2024-06-12 11:00 | XMS_ITS | Encounter Summary ---
Author Organization [employer] Address [address] [facility] [address] 7t [place] [address] Care Team Providers Care City Mail Carrier Name Role Phone Name, Ananda CRANDALL Primary Care Provider [phone] Reason for Visit * Reason Onset Date Comments Durable Medical Equipment 06/08/2022 Encounter Details Date Type Department Care Team ([facility] st Contact Info) Description 06/08/2022 Telephone [facility] MEDICINE 230 [place], [place] [phone] Name, MD Ananda 230 [place] [address] Durable Medical Equipment Social History Tobacco Use [...] states unable to get a hold of customer account coordinator and would like to know if PCP can send script directly to [facility] . Please contact at [phone] * Telephone Encounter - Arleen Ramirez - 06/11/2022 11:28 AM EDT TC to patient and informed him to contact his field care coordinator as a script for a recliner was emailed to her previously. Patient understood and agreed with plan. * Telephone Encounter - Darian Joiner - 06/08/2022 4:29 PM EDT Tc from pt requesting a script for a recliner chair to be send to [facility] please contact pt at [phone] documented in this encounter Plan of Treatment Upcoming Encounters Date Type Department Care Team (Late st Contact Info) Description 07/08/2024 9:15 AM EDT Office Visit [facility] MEDICINE [address] [place] [address] 23019 Latrice Ibrahim MD 230 [place] [address] 07/15/2024 10:45 AM EDT Office Visit [facility] MEDICINE [address] [place] [address] 42521 Name, MD Ananda 230 [place] [address] 07/17/2024 11:15 AM EDT Office Visit [facility] OPTOMETRY 267 [place] [address] Natalie Davis OD 267 [place] [address] 07/21/2024 9:30 AM EDT Telemedicine [facility] MEDICINE 230 [place] [address] Geeta Dove, PharmD 230 [place] [address] documented as of this encounter Visit Diagnoses Not on filedocumented in this encounter Care Teams City Mail Carrier Relationship Specialty Start Date End Date Name, MD Ananda 230 [place] [address] PCP - General Family Medicine 06/01/15 documented as of this encounter
--- OUTSIDE RECORDS SUMMARY | 2024-06-12 11:00 | XMS_ITS | Encounter Summary ---
Author Organization [employer] Address [address] [facility] [address] 7t [place] [address] Care Team Providers Care Recreation Therapist Name Role Phone Name, Ananda CRANDALL Primary Care Provider [phone] Reason for Visit * Reason Onset Date Comments ER Follow-up 09/26/2022 Encounter Details Date Type Department Care Team ([facility] st Contact Info) Description 09/26/2022 Telephone [facility] MEDICINE 230 [place], [place] [phone] Name, MD Ananda 230 [place] [address] ER Follow-up Social History Tobacco Use Types [...] to pt. Through pacific interpreters id - [id number] for below message, pt. 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 [facility] hours are reviewed. * Telephone Encounter - Hawa Morales - 10/01/2022 9:35 AM EDT Tc from pt returning call regarding message below. Please contact pt at [phone] (tuvaluan speaker) * Telephone Encounter - Em Leblanc RN - 09/27/2022 3:29 PM EDT T/C to pt. On [phone] through [employer] id - [id number] for status check and to schedule follow up apt. No answer. LVM to call back on [phone]. * Telephone Encounter - Netta Alvares - 09/26/2022 11:04 AM EDT Tc from pt calling to advise PCP of an ER visit to [facility] on 09/24/22 for surgery on the left leg. Pt advised will forward to team nurse for f/u. Please contact pt at [phone] (Irish) documented in this encounter Plan of Treatment Upcoming Encounters Date Type Department Care Team ([facility] st Contact Info) Description 07/08/2024 9:15 AM EDT Office Visit [facility] MEDICINE [address] [place] [address] Latrice Ibrahim MD [address] [place] [address] 07/15/2024 10:45 AM EDT Office Visit [facility] MEDICINE [address] [place] [address] Name, MD Ananda 230 [place] [address] 07/17/2024 11:15 AM EDT Office Visit [facility] OPTOMETRY [address] [place] [address] 9[address] Natalie Davis, OD 267 [place] [address] 07/21/2024 9:30 AM EDT Telemedicine [facility] MEDICINE [address] [place] [address] Geeta Dove, PharmD [address] [place] [address] 00865 documented as of this encounter Visit Diagnoses Not on filedocumented in this encounter Care Teams Recreation Therapist Relationship Specialty Start Date End Date NameAnanda MD [address] [place] [address] 07454 PCP - General Family Medicine 06/01/15 documented as of this encounter
--- OUTSIDE RECORDS SUMMARY | 2024-06-12 11:00 | XMS_ITS | Encounter Summary ---
Author Organization [employer] Address [address] [facility] [address] 7t [place] [address] Care Team Providers Care Qualification Engineer Name Role Phone Name, Ananda CRANDALL Primary Care Provider [phone] Reason for Visit * Reason Comments Med Refill Encounter Details Date Type Department Care Team ([facility] st Contact Info) Description 09/19/2023 Refill [facility] MED & PEDS [address] [place], [place] [phone] Name, MD Ananda 230 [place] [address] Pain of left leg Social History Tobacco [...] Description 07/08/2024 9:15 AM EDT Office Visit [facility] MEDICINE [address] [place] [address] Latrice Ibrahim MD [address] [place] [address] 07/15/2024 10:45 AM EDT Office Visit [facility] MEDICINE [address] [place] [address] 6[address] Ananda Spain MD [address] [place] [address] 6[address] 07/17/2024 11:15 AM EDT Office Visit [facility] OPTOMETRY [address] [place] [address] Natalie Davis, OD 267 [place] [address] 07/21/2024 9:30 AM EDT Telemedicine [facility] MEDICINE [address] [place] [address] Geeta Dove, Donte [address] [place] [address] documented as of this encounter Visit Diagnoses Diagnosis Pain of left leg documented in this encounter Additional Health Concerns Assessment Noted Time PHQ-9 Depression Total Score: 10 024 9:15 AM EDT documented as of this encounter Care Teams Qualification Engineer Relationship Specialty Start Date End Date Name, MD Ananda 230 [place] [address] PCP - General Family Medicine 06/01/15 documented as of this encounter
--- OUTSIDE RECORDS SUMMARY | 2024-06-12 11:00 | XMS_ITS | Encounter Summary ---
Author Organization [employer] Address [address] [facility] [address]t [place] [address] Care Team Providers Care Radiation Oncology Therapist Name Role Phone Name, Ananda CRANDALL Primary Care Provider [phone] Reason for Visit * Reason Comments Med Refill Encounter Details Date Type Department Care Team ([facility] Contact Info) Description 12/11/[address] [facility] MEDICINE [address] [place], [place] [phone] Name, MD Ananda 230 [place] [address] Type 2 diabetes mellitus without complication, unspecified whether intermediate frame tender insulin use ([facility]) Social History Tobacco Use Types [...] Visit [facility] MEDICINE [address] [place] [address] Latrice Ibrahim MD [address] [place] [address] 07/15/2024 10:45 AM EDT Office Visit [facility] MEDICINE [address] [place] [address] Ananda Spain MD [address] [place] [address] 07/17/2024 11:15 AM EDT Office Visit [facility] OPTOMETRY [address] [place] [address] Natalie Davis, OD [address] [place] [address] 07/21/2024 9:30 AM EDT Telemedicine [facility] MEDICINE [address] [place] [address] 116[address] Geeta Dove, LoretoD [address] [place] [address] documented as of this encounter Visit Diagnoses Diagnosis Type 2 diabetes mellitus without complication, unspecified whether intermediate frame tender insulin use ([facility]) documented in this encounter Additional Health Concerns Assessment Noted Time PHQ-9 Depression Total Score: 10 024 9:15 AM EDT documented as of this encounter Care Teams Radiation Oncology Therapist Relationship Specialty Start Date End Date Name, MD Ananda 230 [place] [address] PCP - General Family Medicine 06/01/15 documented as of this encounter
--- OUTSIDE RECORDS SUMMARY | 2024-06-12 11:00 | XMS_ITS | Encounter Summary ---
Author Organization [employer] Address [address] [facility] [address] 7t [place] [address] Care Team Providers Care Hospice Superintendent Name Role Phone Name, Ananda CRANDALL Primary Care Provider [phone] Reason for Visit * Reason Comments Med Refill Encounter Details Date Type Department Care Team ([facility] Contact Info) Description 06/07/[address] [facility] [address] [place], [place] [phone] Sebastián Graves MD 230 [place], [place] [phone] Pain of left leg Social History Tobacco [...] ([facility] Contact Info) Description 07/08/2024 9:15 AM EDT Office Visit [facility] MEDICINE [address] [place] [address] Latrice Ibrahim MD [address] [place] [address] 07/15/2024 10:45 AM EDT Office Visit [facility] MED[facility]INE [address] [place] [address] Name, MD Ananda [address] [place] [address] 07/17/2024 11:15 AM EDT Office Visit [facility] OPTOMETRY [address] [place] [address] Tarka, Natalie, OD [address] [place] [address] 07/21/2024 9:30 AM EDT Telemedicine [facility] MED[facility]INE [address] [place] [address] Geeta Dove, PharmD [address] [place] [address] documented as of this encounter Visit Diagnoses Diagnosis Pain of left leg documented in this encounter Care Teams Hospice Superintendent Relationship Specialty Start Date End Date Name, MD Ananda [address] [place] [address] PCP - General Family Medicine 06/01/15 documented as of this encounter
--- OUTSIDE RECORDS SUMMARY | 2024-06-12 11:00 | XMS_ITS | Encounter Summary ---
Author Organization [employer] Address [address] 7t [place] [address] Care Team Providers Care Bottle Caser Name Role Phone Name, Ananda CRANDALL Primary Care Provider [phone] Reason for Visit * Reason Onset Date Comments Durable Medical Equipment 06/08/2024 Encounter Details Date Type Department Care Team ([facility] st Contact Info) Description 06/08/2024 Telephone C [facility] [address] [place], [place] [phone] Name, MD Ananda 230 [place] [address] Durable Medical Equipment Social History Tobacco Use [...] encounter Miscellaneous Notes * Telephone Encounter - Chanel Tang MA - 06/11/2024 8:20 AM EDT Received forms below signed by pcp I faxed them back to dme supplier and also scanned forms. * Telephone Encounter - Zainab Thomas MA - 06/08/2024 10:17 AM EDT DME for [employer] from [employer] received and is being processed. Placed on provider's desk for signature. documented in this encounter Plan of Treatment Upcoming Encounters Date Type Department Care Team (Late st Contact Info) Description 07/08/2024 9:15 AM EDT Office Visit [facility] MED[facility]INE [address] [place] [address] Latrice Ibrahim MD [address] [place] [address] 07/15/2024 10:45 AM EDT Office Visit [facility] [address] [place] [address] Name, MD Ananda [address] [place] [address] 07/17/2024 11:15 AM EDT Office Visit [facility] OPTOMETRY [address] [place] [address] Ryan Natalie, OD 267 [place] [address] 07/21/2024 9:30 AM EDT Telemedicine [facility] 230 [place] [address] Geeta Dove, PharmD 230 [place] [address] documented as of this encounter Goals Goal [...] documented as of this encounter Care Teams Bottle Caser Relationship Specialty Start Date End Date Name, MD Ananda 230 [place] [address] PCP - General Family Medicine 06/01/15 documented as of this encounter
== END 2024-06-12 10:56 | disposition home or self-care (01) ==
LOC: HO.ENCR 10:13
PROVIDERS: PCP Internal Medicine Geriatric Medicine; Visit Provider Nurse Practitioner Adult Health
DX: E13.9 Other specified diabetes mellitus without complications (principal)
CPT/HCPCS: 99214; G2211

== ENCOUNTER → 2024-06-12 10:13 | Outpatient (BNVA) | payer OTHER, SELFPAY | PROVIDERS: PCP Internal Medicine Geriatric Medicine; Visit Provider Nurse Practitioner Adult Health | DX: E13.9 Other specified diabetes mellitus without complications (principal); Z79.4 Long term (current) use of insulin; Z79.899 Other long term (current) drug therapy | CPT/HCPCS: 82947; 99212 ==

== ENCOUNTER 2024-06-26 08:48 | Outpatient (AMB) | payer OTHER, SELFPAY ==
--- OUTSIDE RECORDS SUMMARY | 2024-06-26 08:53 | XMS_ITS | Encounter Summary ---
Author Organization [employer] Address [address] 7t [place] [address] Care Team Providers Care Defence Force Senior Officer Name Role Phone Name, Ananda CRANDALL Primary Care Provider [phone] Encounter Details Date Type Department Care Team (Latest Contact Info) Description 01/09/2021 Abstract [facility] CONVERSIONS Dental, Provider, DDS Social [...] Description 07/08/2024 9:15 AM EDT Office Visit [facility] MEDICINE [address] [place] [address] Latrice Ibrahim MD [address] [place] [address] 07/15/2024 10:45 AM EDT Office Visit [facility] MEDICINE [address] [place] [address] [phone] Name, MD Ananda 230 [place] [address] 07/17/2024 11:15 AM EDT Office Visit [facility] OPTOMETRY 267 [place], [place] [phone] Natalie Davis, OD 267 [place] [address] 07/21/2024 9:30 AM EDT Telemedicine [facility] MEDICINE 230 [place], [place] [phone] Geeta Dove, LoretoD 230 [place] [address] documented as of this encounter Visit Diagnoses Not on filedocumented in this encounter Care Teams Defence Force Senior Officer Relationship Specialty Start Date End Date Name, MD Ananda 230 [place] [address] PCP - General Family Medicine 06/01/15 documented as of this encounter
--- OUTSIDE RECORDS SUMMARY | 2024-06-26 08:53 | XMS_ITS | Encounter Summary ---
Author Organization [employer] Address [address] [facility] [address] 7t [place] [address] Care Team Providers Care Termite Control Servicer Name Role Phone Name, Ananda CRANDALL Primary Care Provider [phone] Reason for Visit * Reason Comments Med Refill Encounter Details Date Type Department Care Team ([facility] Contact Info) Description 12/11/2023 Refill [facility] 230 [place], [place] [phone] Name, MD Ananda 230 [place] [address] Type 2 diabetes mellitus without complication, unspecified whether long term acute care registered nurse insulin use ([facility]) Social History Tobacco Use Types [...] [facility] [address] [place] [address] Latrice Ibrahim MD [address] [place] [address] 07/15/2024 10:45 AM EDT Office Visit [facility] MEDICINE [address] [place] [address] Ananda Spain MD [address] [place] [address] 07/17/2024 11:15 AM EDT Office Visit [facility] OPTOMETRY [address] [place] [address] Natalie Davis, OD [address] [place] [address] 07/21/2024 9:30 AM EDT Telemedicine [facility] MEDICINE [address] [place] [address] Geeta Dove, LoretoD [address] [place] [address] documented as of this encounter Visit Diagnoses Diagnosis Type 2 diabetes mellitus without complication, unspecified whether long term acute care registered nurse insulin use ([facility]) documented in this encounter Additional Health Concerns Assessment Noted Time PHQ-9 Depression Total Score: 10 024 9:15 AM EDT documented as of this encounter Care Teams Termite Control Servicer Relationship Specialty Start Date End Date Name, MD Ananda 230 [place] [address] PCP - General Family Medicine 06/01/15 documented as of this encounter
--- OUTSIDE RECORDS SUMMARY | 2024-06-26 08:53 | XMS_ITS | Encounter Summary ---
Author Organization [employer] Address [address] [facility] [facility] [address] 7t [place] [address] Care Team Providers Care Thermodynamic Physicist Name Role Phone Name, Ananda CRANDALL Primary Care Provider [phone] Reason for Visit * Reason Comments Med Refill Encounter Details Date Type Department Care Team ([facility] Contact Info) Description 02/28/2023 Refill [facility] 230 [place], [place] [phone] Name, MD Ananda 230 [place] [address] Pain of left leg Social History Tobacco [...] Description 07/08/2024 9:15 AM EDT Office Visit [facility] MEDICINE [address] [place] [address] Latrice Ibrahim MD [address] [place] [address] 07/15/2024 10:45 AM EDT Office Visit [facility] MEDICINE [address] [place] [address] Ananda Spain MD [address] [place] [address] 2020[address] 07/17/2024 11:15 AM EDT Office Visit [facility] OPTOMETRY [address] [place] [address] TarkaNatalie, OD 267 [place] [address] 07/21/2024 9:30 AM EDT Telemedicine [facility] MEDICINE [address] [place] [address] Geeta Dove, PharmD [address] [place] [address] documented as of this encounter Visit Diagnoses Diagnosis Pain of left leg documented in this encounter Additional Health Concerns Assessment Noted Time PHQ-9 Depression Total Score: 3 10/04/19 23 2:21 PM EDT documented as of this encounter Care Teams Thermodynamic Physicist Relationship Specialty Start Date End Date Ananda Spain MD 230 [place] [address] PCP - General Family Medicine 06/01/15 documented as of this encounter
--- OUTSIDE RECORDS SUMMARY | 2024-06-26 08:53 | XMS_ITS | Encounter Summary ---
Author Organization [employer] Address [address] [facility] [address] 7t [place] [address] Care Team Providers Care Organizational Development Specialist Name Role Phone Name, Ananda CRANDALL Primary Care Provider [phone] Reason for Visit * Reason Onset Date Comments ER Follow-up 09/26/2022 Encounter Details Date Type Department Care Team ([facility] st Contact Info) Description 09/26/[address] [facility] MEDICINE 230 [place], [place] [phone] Name, MD Ananda 230 [place] [address] ER Follow-up Social History Tobacco Use Types [...] to pt. Through pacific interpreters id - [id number] for below message, pt. 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 [facility] hours are reviewed. * Telephone Encounter - Hawa Morales - 10/01/2022 9:35 AM EDT Tc from pt returning call regarding message below. Please contact pt at [phone] (gabonese speaker) * Telephone Encounter - Em Leblanc RN - 09/27/2022 3:29 PM EDT T/C to pt. On [phone] through [employer] id - [id number] for status check and to schedule follow up apt. No answer. LVM to call back on [phone]. * Telephone Encounter - Netta Alvares - 09/26/2022 11:04 AM EDT Tc from pt calling to advise PCP of an ER visit to [facility] on 09/24/22 for surgery on the left leg. Pt advised will forward to team nurse for f/u. Please contact pt at [phone] (Malawian) documented in this encounter Plan of Treatment Upcoming Encounters Date Type Department Care Team ([facility] st Contact Info) Description 07/08/2024 9:15 AM EDT Office Visit [facility] MEDICINE [address] [place] [address] Latrice Ibrahim MD 230 [place] [address] 07/15/2024 10:45 AM EDT Office Visit [facility] MEDICINE [address] [place] [address] Name, MD Ananda 230 [place] [address] 07/17/2024 11:15 AM EDT Office Visit [facility] OPTOMETRY [address] [place] [address] Natalie Davis, OD 267 [place] [address] 07/21/2024 9:[address] [facility] MEDICINE [address] [place] [address] Geeta Dove, PharmD [address] [place] [address] documented as of this encounter Visit Diagnoses Not on filedocumented in this encounter Care Teams Organizational Development Specialist Relationship Specialty Start Date End Date NameAnanda MD [address] [place] [address] PCP - General Family Medicine 06/01/15 documented as of this encounter
--- OUTSIDE RECORDS SUMMARY | 2024-06-26 08:53 | XMS_ITS | Encounter Summary ---
Author Organization [employer] Address [address] [facility] [address] 7t [place] [address] Care Team Providers Care Manager Analytical Name Role Phone Name, Ananda CRANDALL Primary Care Provider [phone] Encounter Details Date Type Department Care Team ([facility] Contact Info) Description 02/14/2022 Abstract [facility] MEDICINE [address] [place] [address] ProviderDamari MD Social History Tobacco Use Types [...] Upcoming Encounters Date Type Department Care Team ([facility] Contact Info) Description 07/08/2024 9:15 AM EDT Office Visit [facility] MEDICINE [address] [place] [address] Latrice Ibrahim MD [address] [place] [address] 07/15/2024 10:45 AM EDT Office Visit [address] [address] Name, MD Ananda 230 [place] [address] 07/17/2024 11:15 AM EDT Office Visit [facility] OPTOMETRY 267 [place] [address] Natalie Davis, OD 267 [place] [address] 07/21/2024 9:30 AM EDT Telemedicine [facility] MEDICINE 230 [place] [address] Geeta Dove, PharmD 230 [place] [address] documented as of this encounter Visit Diagnoses Not on filedocumented in this encounter Care Teams Manager Analytical Relationship Specialty Start Date End Date Name, MD Ananda [address] [place] [address] PCP - General Family Medicine 06/01/15 documented as of this encounter
--- OUTSIDE RECORDS SUMMARY | 2024-06-26 08:53 | XMS_ITS | Encounter Summary ---
Author Organization [employer] Address [address] [facility] [facility] [address] 7t [place] [address] Care Team Providers Care Block Making Machine Operator Name Role Phone Name, Ananda CRANDALL Primary Care Provider [phone] Reason for Visit * Reason Comments Med Refill Encounter Details Date Type Department Care Team ([facility] st Contact Info) Description 09/19/2023 Refill [facility] PEDS [address] [place], [place] [phone] Name, MD Ananda 230 [place] [address] Pain of left leg Social History Tobacco [...] 9:15 AM EDT Office Visit [facility] MEDICINE [address] [place] [address] Latrice Ibrahim MD [address] [place] [address] 07/15/2024 10:45 AM EDT Office Visit [facility] MEDICINE [address] [place] [address] Ananda Spain MD [address] [place] [address] 07/17/2024 11:15 AM EDT Office Visit [facility] OPTOMETRY [address] [place] [address] Natalie Davis, OD 267 [place] [address] 07/21/2024 9:30 AM EDT Telemedicine [facility] MEDICINE [address] [place] [address] Geeta Dove, Donte [address] [place] [address] documented as of this encounter Visit Diagnoses Diagnosis Pain of left leg documented in this encounter Additional Health Concerns Assessment Noted Time PHQ-9 Depression Total Score: 10 024 9:15 AM EDT documented as of this encounter Care Teams Block Making Machine Operator Relationship Specialty Start Date End Date Name, MD Ananda 230 [place] [address] PCP - General Family Medicine 06/01/15 documented as of this encounter
--- OUTSIDE RECORDS SUMMARY | 2024-06-26 08:53 | XMS_ITS | Encounter Summary ---
Author Organization [employer] Address [address] [facility] [address] 7t [place] [address] Care Team Providers Care Brim Raiser Name Role Phone Name, Ananda CRANDALL Primary Care Provider [phone] Reason for Visit * Reason Onset Date Comments Prior Authorization 05/07/2022 Appointment 05/07/2022 Encounter Details Date Type Department Care Team ([facility] st Contact Info) Description 05/07/2022 Telephone [facility] ADULT DENTAL 230 [place] [address] Kelvin Haque, DDS 230 [place] [address] Prior Authorization; Appointment Social History Tobacco Use [...] specify if for partial. Don't see if [facility] has approved partials for patient. Patient verifying. DR documented in this encounter Plan of Treatment Upcoming Encounters Date Type Department Care Team (Late st Contact Info) Description 07/08/2024 9:15 AM EDT Office Visit [facility] MEDICINE [address] [place] [address] Latrice Ibrahim MD 230 [place] [address] 07/15/2024 10:45 AM EDT Office Visit [address] [address] Name, MD Ananda [address] [place] [address] 07/17/2024 11:15 AM EDT Office Visit [facility] OPTOMETRY 267 [place] [address] TarNatalie elizabeth, OD 267 [place] [address] 07/21/2024 9:30 AM EDT Telemedicine [facility] MEDICINE [address] [place] [address] Geeta Dove, PharmD 230 [place] [address] documented as of this encounter Visit Diagnoses Not on filedocumented in this encounter Care Teams Brim Raiser Relationship Specialty Start Date End Date Name, MD Ananda [address] [place] [address] PCP - General Family Medicine 06/01/15 documented as of this encounter
--- OUTSIDE RECORDS SUMMARY | 2024-06-26 08:53 | XMS_ITS | Encounter Summary ---
Author Organization [employer] Address [address] [facility] [address] 7t [place] [address] Care Team Providers Care Abrasive Water Jet Cutter Operator Name Role Phone Name, Ananda CRANDALL Primary Care Provider [phone] Reason for Visit * Reason Onset Date Comments case in lab 10/03/2022 Encounter Details Date Type Department Care Team ([facility] st Contact Info) Description 10/03/2022 Telephone C [facility] [address] [place] [address] Kelvin Haque, DDS [address] [place] [address] case in lab Social History Tobacco Use [...] - 10/03/2022 2:29 PM EDT Hubert from [employer] called in noel that the soonest they can get case back in to office would be 10/10. They stated it is 5 business days and does not include drop off or cook pickled meat date. Confirmed with Hubert that as of yet appt has not been scheduled to return and that I would inform officeDR documented in this encounter Plan of Treatment Upcoming Encounters Date Type Department Care Team (Late st Contact Info) Description 07/08/2024 9:15 AM EDT Office Visit [facility] MEDICINE [address] [place] [address] Latrice Ibrahim MD 230 [place] [address] 07/15/2024 10:45 AM EDT Office Visit [facility] MEDICINE [address] [place] [address] Ananda Spain MD 230 [place] [address] 07/17/2024 11:15 AM EDT Office Visit [facility] OPTOMETRY 267 [place] [address] TarkaNatalie, OD 267 [place] [address] 07/21/2024 9:30 AM EDT Telemedicine [facility] MEDICINE 230 [place] [address] Geeta Dove, PharmD 230 [place] [address] documented as of this encounter Visit Diagnoses Not on filedocumented in this encounter Additional Health Concerns Assessment Noted Time PHQ-9 Depression Total Score: 3 10/04/19 23 2:21 PM EDT documented as of this encounter Care Teams Abrasive Water Jet Cutter Operator Relationship Specialty Start Date End Date Ananda Spain MD [address] [place] [address] PCP - General Family Medicine 06/01/15 documented as of this encounter
--- OUTSIDE RECORDS SUMMARY | 2024-06-26 08:53 | XMS_ITS | Encounter Summary ---
Author Organization [employer] Address [address] [facility] [address] 7t [place] [address] Care Team Providers Care Count Room Clerk Name Role Phone Name, Ananda CRANDALL Primary Care Provider [phone] Reason for Visit * Reason Comments Med Refill Encounter Details Date Type Department Care Team ([facility] Contact Info) Description 04/25/2022 Refill [facility] MEDICINE [address] [place] [address] [phone] Name, MD Ananda [address] [place] [address] Wheezing (Primary Dx) Social History Tobacco Use [...] Upcoming Encounters Date Type Department Care Team ([facility] Contact Info) Description 07/08/2024 9:15 AM EDT Office Visit [facility] MEDICINE [address] [place] [address] [phone] Latrice Ibrahim MD [address] [place] [address] 07/15/2024 10:45 AM EDT Office Visit [facility] MEDICINE [address] [place] [address] NameAnanda MD 230 [place] [address] 07/17/2024 11:15 AM EDT Office Visit [facility] OPTOMETRY [address] [place] [address] Tarka, Natalie, OD 267 [place] [address] 07/21/2024 9:30 AM EDT Telemedicine [facility] MEDICINE [address] [place] [address] Geeta Dove, PharmD 230 [place] [address] documented as of this encounter Visit Diagnoses Diagnosis Wheezing- Primary documented in this encounter Care Teams Count Room Clerk Relationship Specialty Start Date End Date NameAnanda MD [address] [place] [address] PCP - General Family Medicine 06/01/15 documented as of this encounter
--- OUTSIDE RECORDS SUMMARY | 2024-06-26 08:53 | XMS_ITS | Encounter Summary ---
Author Organization [employer] Address [address] [facility] [address] 7t [place] [address] Care Team Providers Care Shirt Ironer Name Role Phone Name, Ananda CRANDALL Primary Care Provider [phone] Reason for Visit * Reason Comments Med Refill Encounter Details Date Type Department Care Team ([facility] Contact Info) Description 06/07/2022 Refill [facility] 230 [place], [place] [phone] Sebastián Graves MD 230 [place], [place] [phone] Pain of left leg Social History Tobacco [...] Upcoming Encounters Date Type Department Care Team ([facility] Contact Info) Description 07/08/2024 9:15 AM EDT Office Visit [facility] MEDICINE 230 [place] [address] Latrice Ibrahim MD [address] [place] [address] 07/15/2024 10:45 AM EDT Office Visit [facility] MEDICINE [address] [place] [address] Name, MD Ananda [address] [place] [address] 07/17/2024 11:15 AM EDT Office Visit [facility] OPTOMETRY [address] [place] [address] Tarka, Natalie, OD 267 [place] [address] 07/21/2024 9:30 AM EDT Telemedicine [facility] MEDICINE [address] [place] [address] Geeta Dove, PharmD [address] [place] [address] documented as of this encounter Visit Diagnoses Diagnosis Pain of left leg documented in this encounter Care Teams Shirt Ironer Relationship Specialty Start Date End Date Name, MD Ananda [address] [place] [address] PCP - General Family Medicine 06/01/15 documented as of this encounter
--- OUTSIDE RECORDS SUMMARY | 2024-06-26 08:53 | XMS_ITS | Encounter Summary ---
Author Organization [employer] Address [address] [place] [address] Care Team Providers Care Sueding And Buffing Machine Operator Name Role Phone Name, Ananda CRANDALL Primary Care Provider [phone] Reason for Visit * Reason Onset Date Comments Durable Medical Equipment 06/08/2022 Encounter Details Date Type Department Care Team ([facility] st Contact Info) Description 06/08/2022 Telephone [facility] MEDICINE [address] [place], [place] [phone] Name, MD Ananda [address] [place] [address] Durable Medical Equipment Social History Tobacco Use [...] states unable to get a hold of audio visual collections coordinator and would like to know if PCP can send script directly to [facility] . Please contact at [phone] * Telephone Encounter - Arleen Ramirez - 06/11/2022 11:28 AM EDT TC to patient and informed him to contact his home health care case manager as a script for a recliner was emailed to her previously. Patient understood and agreed with plan. * Telephone Encounter - Darian Joiner - 06/08/2022 4:29 PM EDT Tc from pt requesting a script for a recliner chair to be send to [facility] please contact pt at [phone] documented in this encounter Plan of Treatment Upcoming Encounters Date Type Department Care Team (Late st Contact Info) Description 07/08/2024 9:15 AM EDT Office Visit [facility] MEDICINE [address] [place] [phone] Latrice Ibrahim MD [address] [place] [address] 07/15/2024 10:45 AM EDT Office Visit [facility] MEDICINE [address] [place] [phone] Name, MD Ananda [address] [place] [address] 07/17/2024 11:15 AM EDT Office Visit [facility] OPTOMETRY [address] [place] [address] Natalie Davis OD [address] [place] [address] 07/21/2024 9:30 AM EDT Telemedicine [facility] MEDICINE [address] [place] [address] Geeta Dove, PharmD [address] [place] [address] documented as of this encounter Visit Diagnoses Not on filedocumented in this encounter Care Teams Sueding And Buffing Machine Operator Relationship Specialty Start Date End Date Name, MD Ananda [address] [place] [address] PCP - General Family Medicine 06/01/15 documented as of this encounter
--- OUTSIDE RECORDS SUMMARY | 2024-06-26 08:53 | XMS_ITS | Encounter Summary ---
Author Organization [employer] Address [address] [place] [address] Care Team Providers Care Fried Cake Maker Name Role Phone Name, Ananda CRANDALL Primary Care Provider [phone] Reason for Visit * Reason Onset Date Comments Durable Medical Equipment 09/18/2022 Encounter Details Date Type Department Care Team ([facility] st Contact Info) Description 09/18/2022 Telephone [facility] MEDICINE [address] [place], [place] [phone] Name, MD Ananda [address] [place] [address] Durable Medical Equipment Social History Tobacco Use [...] 1:49 PM EDT Incoming call from [facility] PT regarding message below. [facility] PT states they have no record of pt ever going to their offices and getting PT. Unsure what next steps should be at this point. * Telephone Encounter - Christy Finn RN - 09/21/2022 1:39 PM EDT TC X1 to [facility] PT [phone] regarding message below. LVM to return call to nurses. * Telephone Encounter - Lauren Walsh - 09/20/2022 3:14 PM EDT Tc from patient returning call back, regarding message below. Patient states he's going to PT in [facility]. [address] [place] [address] [place] [address] Dr. Mcdaniel. * Telephone Encounter - Christy [...] Description 07/08/2024 9:15 AM EDT Office Visit [facility] MEDICINE [address] [place] [address] Latrice Ibrahim MD [address] [place] [address] 07/15/2024 10:45 AM EDT Office Visit [facility] MEDICINE [address] [place] [phone] Name, MD Ananda [address] [place] [address] 07/17/2024 11:15 AM EDT Office Visit [facility] OPTOMETRY [address] [place] [address] TarkaNatalie, OD [address] [place] [address] 07/21/2024 9:30 AM EDT Telemedicine [facility] MEDICINE [address] [place] [phone] Geeta Dove, PharmD [address] [place] [address] documented as of this encounter Visit Diagnoses Not on filedocumented in this encounter Care Teams Fried Cake Maker Relationship Specialty Start Date End Date Name, MD Ananda [address] [place] [phone] PCP - General Family Medicine 06/01/15 documented as of this encounter
--- OUTSIDE RECORDS SUMMARY | 2024-06-26 08:53 | XMS_ITS | Encounter Summary ---
Author Organization [employer] Address [address] [place] [address] Care Team Providers Care Automotive Sales Associate Name Role Phone Name, Ananda CRANDALL Primary Care Provider [phone] Reason for Visit * Reason Onset Date Comments Appointment 09/06/2022 Encounter Details Date Type Department Care Team ([facility] Contact Info) Description 09/06/[address] [facility] ADULT DENTAL [address] [place], [place] [phone] Kelvin Haque, LENNY [address] [place] [address] Appointment Social History Tobacco Use Types Packs/Day [...] [facility] MEDICINE [address] [place] [phone] Latrice Ibrahim MD [address] [place] [address] 07/15/2024 10:45 AM EDT Office Visit [facility] MEDICINE [address] [place] [phone] Name, MD Ananda [address] [place] [address] 07/17/2024 11:15 AM EDT Office Visit [facility] OPTOMETRY [address] [place] [address] Tarka, Natalie, OD [address] [place] [address] 07/21/2024 9:30 AM EDT Telemedicine [facility] MEDICINE [address] [place] [address] JamilahiaGeeta, PharmD [address] [place] [address] documented as of this encounter Visit Diagnoses Not on filedocumented in this encounter Care Teams Automotive Sales Associate Relationship Specialty Start Date End Date NameAnanda MD [address] [place] [id number] PCP - General Family Medicine 06/01/15 documented as of this encounter
--- OUTSIDE RECORDS SUMMARY | 2024-06-26 08:53 | XMS_ITS | Clinical Summary ---
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 021 Active glucose blood (AvneraTouch Verio) test strip every 8 (eight) hours. [...] (CMS/HCC) 1 each 2 times daily. Call [facility] if consistently < 95% 1 each 023 Active Alcohol Swabs (Alcohol Prep) 70 % pads USE FOUR TIMES DAILY DIRECTED 023 Active clonazePAM (KlonoPIN) 1 MG tablet Take 1 mg by mouth 2 times daily. 023 Active Lancets (AvneraTouch Delica Plus [id number]) [facility] [place]LOOD SUGAR [...] PER DAY 2 each Active Continuous Glucose Front End Manager (FreeStyle Kasey 2 [place]) device Scan sensor every 8 hours 1 each 024 Active Multiple Vitamin (Multivitamin) tablet Take 1 tablet by mouth Once daily. TAKE 1 TABLET BY MOUTH EVERY DAY WITH FOODTAKE 1 TABLET BY MOUTH EVERY DAY WITH FOOD 90 tablet 3 024 2024 Active Tresiba FlexTouch 100 UNIT/ML injection INJECT 8 UNITS SUBCUTANEOUSLY EVERY DAY Active albuterol (2.5 MG/3ML) 0.083% nebulizer solution [...] RESOLVED OR LOW BLOOD SUGAR IS RESOLVED 024 Active albuterol (Ventolin HFA) 108 (90 Base) MCG/ACT inhalerIndicati ons:Chronic obstructive pulmonary disease, unspecified COPD type ([facility]) INHALE 2 PUFFS BY MOUTH EVERY 4 TO 6 HOURS NEEDED 18 g 5 025 Active senna (Senokot) 8.6 MG tabletIndicatio ns:Constipation , unspecified constipation type TAKE 2 TABLETS BY MOUTH EVERY DAY NEEDED FOR CONSTIPATION 60 tablet 5 025 Active Nicotine Step 1 21 MG/24HR patch APPLY 1 PATCH TOPICALLY EVERY DAY. REMOVE OLD PATCH BEFORE APPLYING NEW ONE. 025 Active Trelegy Ellipta 200-62.5-25 MCG/ACT aerosol powder Inhale 1 puff 1 (one) time each day at the same time. 025 Active FreeStyle Precision Isak Test test stripIndication s:Type 2 diabetes mellitus with hyperglycemia, with long-term current use of insulin ([facility]) USE DIRECTED TO TEST BLOOD SUGAR THREE TIMES DAILY 100 strip 3 025 Active Suboxone 8-2 MG SL filmIndications :Uncomplicated opioid dependence ([facility]) Place 3 Film under the tongue Once per day for 28 days. 84 Film 025 2024 Active BD Pen Needle Pham U/F 32G X 4 MM miscIndications :Type 2 diabetes mellitus without complication, unspecified whether termite inspector insulin use ([facility]) USE DIRECTED FOUR TIMES DAILY 100 each 5 025 Active benzonatate (Tessalon Perles) 100 MG capsuleIndicati ons:Viral URI with cough Take 1 capsule (100 mg) by mouth if needed in the morning, at noon, and at bedtime for cough for up to 7 days. Do not crush or chew. 20 capsule 025 2024 Active montelukast (Singulair) 10 MG tabletIndicatio ns:Seasonal allergic rhinitis, unspecified trigger TAKE 1 TABLET BY MOUTH EVERY DAY AT BEDTIME 90 tablet 1 025 Active montelukast (Singulair) 10 MG tabletIndicatio ns:Seasonal allergic rhinitis, unspecified trigger TAKE 1 TABLET BY MOUTH EVERY DAY AT BEDTIME 90 tablet 1 024 2024 Discontinued Pentips 32G X 4 MM miscIndications :Type 2 diabetes mellitus without complication, unspecified whether termite inspector insulin use ([facility]) USE DIRECTED FOUR TIMES DAILY 100 each 5 024 2024 Discontinued glucose blood (FreeStyle Precision Isak Test) test stripIndication s:Type 2 diabetes mellitus with hyperglycemia, with long-term current use of insulin ([facility]) 1 each by Other route 3 times daily. 100 each 3 024 2024 Discontinued Suboxone 8-2 MG SL filmIndications :Uncomplicated opioid dependence ([facility]) Place 3 Film under the tongue Once [...] Encounters Date Type Department Care Team Description 06/22/2024 Refill [facility] [address] [place] [address] Name, MD Ananda Seasonal allergic rhinitis, unspecified trigger 06/19/2024 11:20 AM EDT Office Visit [facility] [address] [place] [address] Luis Espinoza MD Viral URI with cough 06/19/2024 Travel 06/12/2024 Orders Only GENERIC EXTERNAL DATA DEPARTMENT Provider, Generic External Data 06/12/2024 Refill [facility] [address] [place] [address] Ananda Spain MD Type 2 diabetes mellitus without complication, unspecified whether longterm insulin use ([facility]) 06/10/2024 9:30 AM EDT Clinical Support [address] [address] Sonali Stubbs, COREY Opioid type dependence, continuous ([facility]) (Primary Dx) 06/10/[address] [address] Ananda Spain MD 06/10/2024 Travel 06/08/2024 Telephone [facility] [address] [place] [address] Ananda Spain MD Durable Medical Equipment 06/05/[address] [address] Ananda Spain MD 06/03/2024 Orders Only [address] [address] Ananda Spain MD 06/03/[address] [address] Sonali Stubbs RN Uncomplicated opioid dependence ([facility]) 06/02/[address] [address] Geeta Dove, PharmD 05/29/2024 Orders Only GENERIC EXTERNAL DATA DEPARTMENT Provider, Generic External Data 05/28/[address] [address] Ananda Spain MD Type 2 diabetes mellitus with hyperglycemia, with long-term current use of insulin ([facility]) 05/27/[address] [address] Evelyn Reeves RN 05/21/2024 9:30 AM EDT Office Visit [address] [address] So Lebron MD Chronic bronchitis, unspecified chronic bronchitis type ([facility]) (Primary Dx); Tobacco dependence 05/21/2024 Travel 05/20/[address] [address] Ananda Spain MD Chart Prep 05/19/2024 Orders Only GENERIC EXTERNAL DATA DEPARTMENT Provider, Generic External Data 05/14/2024 Telephone [facility] [address] [place] [address] Ananda Spain MD Appointment Request 05/13/2024 9:30 AM EDT Office Visit [facility] [place] [address] Latrice Ibrahim MD Uncomplicated opioid dependence (CMS/HCC) (Primary Dx); Tobacco dependence 05/13/2024 Travel 05/06/2024 Refill [facility] [address] [place] [address] Sonali Stubsb, COREY Uncomplicated opioid dependence (CMS/HCC) 05/06/2024 Telephone [facility] [address] [place] [address] Ananda Spain MD No Show (Patient no show for sick on site ) 05/06/2024 Telephone [facility] [address] [place] [address] Ananda Spain MD No Show 05/06/[address] [address] Ananda Spain MD 04/30/2024 Telephone [facility] [address] [place] [address] Ananda Spain MD chartprep 04/23/2024 Telephone [facility] [address] [place] [address] Ananda Spain MD 04/23/2024 Refill [facility] [address] [place] [address] Ananda Spain MD Constipation, unspecified constipation type 04/16/2024 10:00 AM EST Office Visit [facility] [place] [address] Ananda Spain MD Chronic obstructive pulmonary disease, unspecified COPD type ([facility]) (Primary Dx); COPD exacerbation (CMS/HCC); Hypoxia; Non-cardiac chest pain; Type 2 diabetes mellitus with hyperglycemia, with long-term current use of insulin (CMS/HCC) 04/16/2024 Travel 04/15/2024 9:30 AM EST Clinical Support [address] [address] Sonali Stubbs, COREY Uncomplicated opioid dependence ([facility]) (Primary Dx) 04/15/2024 Travel 04/14/2024 Telephone [facility] [address] [place] [address] Gerda Gutierrez MA chartprep 04/14/2024 Orders Only GENERIC EXTERNAL DATA DEPARTMENT Provider, Generic External Data 04/13/2024 11:00 AM EST Office Visit [facility] [address] [place] [address] Breanna Das NP Cough in adult patient (Primary Dx); COPD with acute exacerbation ([facility]) 04/12/2024 Orders Only GENERIC EXTERNAL DATA DEPARTMENT Provider, Generic External Data 04/10/2024 Telephone [facility] [address] [place] [phone] Kim Montez, COREY 2024 Refill [facility] [address] [place] [address] Sonali Stubbs, COREY Uncomplicated opioid dependence ([facility]) 04/01/2024 Telephone [facility] [address] [place] [address] Torrie Balderrama, COREY 03/29/2024 Orders Only GENERIC EXTERNAL DATA DEPARTMENT Provider, Generic External Data from Last 3 Months Immunizations Name Administration [...] Sign Reading Time Taken Comments Blood Pressure 158/91 06/19/2024 10:50 AM EDT Pulse 102 06/19/2024 10:50 AM EDT Temperature 36.8 ??C (98.3 ??F) 06/19/2024 10:50 AM E DT Respiratory Rate 18 06/19/2024 10:50 AM EDT Oxygen Saturation 97% 06/19/2024 10:50 AM EDT Inhaled Oxygen Concentration - - Weight 57.2 kg (126 lb) 06/19/2024 10:50 AM EDT Height 167.6 cm (5' 6 ) 05/21/2024 9:20 AM EDT Body Mass Index 20.34 05/21/2024 9:20 AM EDT Plan of Treatment Upcoming Encounters Date Type Department Care Team (Late st Contact Info) Description 07/08/2024 9:15 AM EDT Office Visit [facility] [address] [place] [phone] Latrice Ibrahim MD [address] [place] [phone] 07/15/2024 10:45 AM EDT Office Visit [facility] [address] [place] [phone] Ananda Spain MD [address] [place] [address] 07/17/2024 11:15 AM EDT Office Visit [facility] [address] [place] [address] Tarka, Natalie, OD [address] [place] [address] 07/21/2024 9:30 AM EDT Telemedicine [facility] [address] [place] [phone] PuiaGeeta, PharmD [address] [place] [address] Health Maintenance Due Date Last Done Comments [...] Vaccine ( season) 2023 02/10/2021, 05/18/2020 Depression Screening 07/09/2024 07/10/2023, 07/10/19 24 SDOH [...] track( 025 9:51 AM EDT) No Sonali Stubbs RN Reduce tobacco use (cigarettes, smokeless, etc) Tobacco Use No Sonali Stubbs, purchasing expeditor Procedure Name Priority Date/Time Associated Diagnosis Comments POCT RAPID COVID ANTIGEN Routine 06/19/2024 10:57 AM EDT Viral URI with cough POCT INFLUENZA B (ID NOW RAPID MOLECULAR) Routine 06/19/2024 10:57 AM EDT Viral URI with cough POCT INFLUENZA A (ID NOW RAPID MOLECULAR) Routine 06/19/2024 10:57 AM EDT Viral URI with cough GLUCOSE, WHOLE BLOOD Routine 06/12/2024 10:49 AM [...] QL NAAT Routine 03/29/2024 11:40 AM EST HEPATITIS C AB W/REFL TO HCV RNA, QN, PCR Routine 03/29/2023 9:12 AM EST HIV 1/2 ANTIGEN/ANTIBODY, FOURTH GENERATION W/RFL Routine 03/29/2023 9:12 AM EST HM COLONOSCOPY Routine 08/16/2015 1:52 PM EDT from Last 3 Months or Most Recently Relevant to Health Maintenance Results * Influenza B (ID NOW Rapid Molecular) (06/19/2024 10:57 AM EDT) Only the most recent of2 resultswithin the time period is included. Influenza B Negative Negative, Indeterminate [facility] Swab 06/19/2024 10:5 7 AM EDT us Luis Espinoza MD POINT OF CARE TEST ENTER/EDIT OR DERABLES Final Result [facility] [address] [place] [phone] * Influenza A (ID NOW Rapid Molecular) (06/19/2024 10:57 AM EDT) Only the most recent of2 resultswithin the time period is included. Influenza A Negative Negative, Indeterminate [facility] Swab 06/19/2024 10:5 7 AM EDT us Luis Espinoza MD POINT OF CARE TEST ENTER/EDIT OR DERABLES Final Result Performing Organization Address [facility] Co de Phone Number [facility] [address] [place] [address] [phone] * POCT Rapid COVID Ag (06/19/2024 10:57 AM EDT) Only the most recent of2 resultswithin the time period is included. [facility] Rapid COVID Ag Negative Swab 06/19/2024 10:5 7 AM EDT Luis Espinoza MD POINT OF CARE TEST ENTER/EDIT OR DERABLES Final Result * (ABNORMAL) Glucose, Whole Blood (06/12/2024 10:49 AM EDT) Only the most recent of4 resultswithin the time period is included. [facility] Glucose, Whole Blood 175(H) 60 - 115 mg/dL [facility] Comment:METER #: [id number] Testing performed in the Endocrinology Department [address], [address], [employer]. 06/12/2024 10:4 9 AM EDT 06/12/2024 10:57 AM EDT Generic External Data Provider LAB BLOOD ORDERAB LES Final Result Performing Organization Address [facility] Co de Phone Number [facility] [address] [place] [address] [phone] * POCT FARA-14 Urine Drug Screen (06/10/2024 9:27 AM EDT) Only the most recent of3 resultswithin the time period is included. [facility] THC Negative Cocaine Screen, Urine Negative Opiate [...] procedure / Unknown 06/10/2024 9:27 AM EDT us Luis Espinoza MD POINT OF CARE TEST ENTER/EDIT OR DERABLES Final Result * Albumin, Random Urine W/Creatinine (05/29/2024 8:43 AM EDT) Pathologist [facility] Creatinine, Urine 126.68 mg/dL [facility] Microalbumin Urine 15.0 mg/L [facility] Microalbum Creatinine Ratio Ur 11.8 <30 ug/mg cr [facility] Comment:Albumin/Creatinine R atio Reference Ranges: Normal: < 30 ug/mg creatinine Microalbuminuria: 30 - 300 ug/mg creatinineClinical Albuminuria: > 300 ug/mg creatinine 05/29/2024 8:43 AM EDT 05/29/2024 9:05 AM EDT us Generic External Data Provider LAB URINE ORDERAB LES Final Result Performing Organization Address City/State/[facility] Co de Phone Number [facility] [address] [place] [phone] * (ABNORMAL) CBC auto differential (05/27/2024 8:40 AM EDT) Only the most recent of3 resultswithin the time period is included. White Blood Count 8.3 4.8 - 10.8 X10*3/uL [facility] Red Blood Count 4.66 4.60 - 5.80 X10*6/uL [facility] Hemoglobin 13.7(L) 14.0 - 18.0 g/dl [facility] Hematocrit 41.9(L) 42.0 - 52.0 % [facility] Mean Corpuscular Volume 89.9 80.0 - 98.0 fL [facility] Mean Corpuscular Hemoglobin 29.4 27.0 - 33.0 pg [facility] Mean Corpuscular HGB Conc 32.7 31.0 - 36.0 g/dl [facility] Red Cell Distribution Width 14.6 11.0 - 16.0 % [facility] Platelet Count 270 160 - 400 X10*3/uL [facility] Mean Platelet Volume 10.8 9.4 - 12.4 fL [facility] Neutrophils Percent Auto 38.6(L) 45 - 73 % [facility] Imm Gran Pct Auto 0.2 0.0 - 0.4 % [facility] Lymphocytes Percent Auto 43.0(H) 20 - 40 % [facility] Monocytes Percent Auto 10.4 2 - 11 % [facility] Eosinophils Percent Auto 6.6(H) 0 - 4 % [facility] Basophils Percent Auto 1.2 0 - 2 % [facility] NRBC Pct Auto 0.0 0.0 - 0.2 /100WBC [facility] Neutrophils Absolute Auto 3.2 2.0 - 8.3 x10*3/uL [facility] Imm Gran Abs Auto 0.02 0.00 - 0.03 X10*3/uL [facility] Lymphocytes Absolute Auto 3.6 1.2 - 4.9 X10*3/uL [facility] Monocytes Absolute Auto 0.9 0.1 - 1.2 X10*3/uL [facility] Eosinophils Absolute Auto 0.6(H) 0.0 - 0.4 X10*3/uL [facility] Basophils Absolute Auto 0.1 0.0 - 0.2 X10*3/uL [facility] NRBC Abs Auto 0.000 0.0 - 0.012 X10*3/uL [facility] Blood Venous blood specimen / Unknown 05/27/2024 8:40 AM EDT 05/27/2024 8:40 AM EDT us Ananda Spain MD LAB BLOOD ORDERABLES Final Resul t [facility] [address] [place] [phone] * Hepatitis A Antibody, Total (05/27/2024 8:40 AM EDT) Hepatitis A Antibody IgG REACTIVE Nonreactive [facility] Comment:The presence of IgG anti-HAV implies past HAV infection(recent or distant) or vaccination against HAV. Blood Venous blood specimen / Unknown 05/27/2024 8:40 AM EDT 05/27/2024 8:40 AM EDT us Ananda Spain MD LAB BLOOD ORDERABLES Final Resul t Performing Organization Address [facility] Co de Phone Number [facility] [address] [place] [phone] * Hepatitis B surface antigen, EIA (05/27/2024 8:40 AM EDT) Pathologist [facility] Hepatitis B Surface Ag Negative Negative [facility] Blood Venous blood specimen / Unknown 05/27/2024 8:40 AM EDT 05/27/2024 8:40 AM EDT us Ananda Spain MD LAB BLOOD ORDERABLES Final Resul t Performing Organization Address [facility] de Phone Number [facility] [address] [place] [phone] * Hepatitis B Surface Antibody, Qualitative (05/27/2024 8:40 AM EDT) Pathologist [facility] ~Hepatitis B Surface Antibody REACTIVE Nonreactive [facility] Comment:REACTIVE: > 11.99 mI U/mL Blood Venous blood specimen / Unknown 05/27/2024 8:40 AM EDT 05/27/2024 8:40 AM EDT us Ananda Spain MD LAB BLOOD ORDERABLES Final Resul t Performing Organization Address [facility] de Phone Number [facility] [address] [place] [phone] * (ABNORMAL) Hemoglobin A1c (05/27/2024 8:40 AM EDT) Hemoglobin A1c 8.3(H) <6.0 % [facility] Comment:Hemoglobin A1C Refer ence Range Adults: 4.8 - 6.0 % Non diabetic: < 6.0 % Goal: < 7.0 %Additional Action Suggested: > 8.0 %Note: Hemoglobin A1c results are invalid for patients with abnormal amounts of HbF. Blood transfusions may impact the HbA1c concentration in the patient sample. Estimated Average Glucose 192 mg/dL [facility] Comment:eAG = Estimated ave rage glucose which is %A1C expressed asaverage glucose, using the formula of the H3L-[id number] Glucose study (ADAG), Diabetes Care, Vol.31,#8,2007 Blood Venous blood specimen / Unknown 05/27/2024 8:40 AM EDT 05/27/2024 8:40 AM EDT us Ananda Spain MD LAB BLOOD ORDERABLES Final Resul t [facility] [address] [place] [phone] * (ABNORMAL) Lipid Panel, Standard (05/27/2024 8:40 AM EDT) Triglycerides 73 <150 mg/dL [facility] Comment:Desirable Triglyceri de: less than 150 mg/dLBorderline High Triglyceride 150-199 mg/dLHigh Triglyceride: 200-499 mg/dLVery High Triglyceride: greater than or equal to 5OO mg/dL Cholesterol 221(H) <200 mg/dL [facility] Comment:Desirable Cholestero l: less than 200 mg/dLBorderline High Cholesterol: 200-239 mg/dLHigh Cholesterol: greater than 239 mg/dL LDL Cholesterol Calculated 75 <100 mg/dL [facility] Comment:Desirable LDL: less than 100 mg/dLNear Optimal/Above Optimal LDL: 110- 129 mg/dLBorderline High LDL: 130-159 mg/dLHigh LDL: 160-189 mg/dLVery High LDL: greater than or equal to 190 mg/dL HDL Cholesterol 132 >40 mg/dL [facility] Comment:Desirable HDL: great er than 40 mg/dL Note: This HDL assay may give artificially low results in patients with liver disease. Blood Venous blood specimen / Unknown 05/27/2024 8:40 AM EDT 05/27/2024 8:40 AM EDT us Ananda Spain MD LAB BLOOD ORDERABLES Final Resul t [facility] [address] [place], [place] [phone] * (ABNORMAL) Comprehensive Metabolic Panel (05/27/2024 8:40 AM EDT) Only the most recent of2 resultswithin the time period is included. Sodium 146(H) 135 - 145 mmol/L [facility] Potassium 3.6 3.3 - 5.1 mmol/L [facility] Chloride 109(H) 96 - 108 mmol/L [facility] Carbon Dioxide 30(H) 22 - 29 mmol/L [facility] Anion Gap 11(L) 12 - 20 [facility] Urea Nitrogen (BUN) 14 9 - 16 mg/dL [facility] Creatinine, Serum 0.73 0.5 - 1.4 mg/dL [facility] Estimated Glomerular Filt Rate >60 [facility] Comment:Chronic Kidney Disea se: Estimated GFR < 60 mL/min/[id number] Kidney Disease: Estimated GFR < 15 mL/min/1.73m2 Glucose 46(LL) 60 - 115 mg/dL [facility] Comment:Critical value for G ELENI: Results called to and read hungy: BOZENA Paige Person calling: NAYLA Date: 05-27-24 Time:1035 Calcium 10.2 8.4 - 10.2 mg/dL [facility] Bilirubin, Total 1.3(H) 0.0 - 1.0 mg/dL [facility] Aspartate Amino Transferase 38(H) 5 - 37 U/L [facility] Alanine Aminotransferase 28 0 - 40 U/L [facility] Total Protein 7.3 6.5 - 8.0 g/dL [facility] Albumin Level 4.7 3.5 - 5.0 g/dL [facility] Alkaline Phosphatase 55 39 - 117 U/L [facility] Blood Venous blood specimen / Unknown 05/27/2024 8:40 AM EDT 05/27/2024 8:40 AM EDT us Ananda Spain MD LAB BLOOD ORDERABLES Final Resul t [facility] [address] [place] [address] [phone] * (ABNORMAL) POCT HGB A1C (04/16/2024 10:24 AM EST) Hemoglobin A1C 8.8(A) 4.0 - 6.0 % QC Media Lot # [id number] Lot# Expiration Date Blood 04/16/2024 10:2 4 AM EST Result [facility] Ananda Spain MD POINT OF CARE TEST ENTER/EDIT OR DERABLES Final Result * (ABNORMAL) POCT Glucose (04/16/2024 10:21 AM EST) Glucose Blood, POC 229(A) 60 - 200 mg/dL QC Media Lot # [id number] Lot# Expiration Date Blood Capillary blood specimen / Unknown 04/16/2024 10:21 AM EST Result [facility] Ananda Spain MD POINT OF CARE TEST ENTER/EDIT OR DERABLES Final Result * XR Chest 2 Views (04/12/2024 3:17 PM EST) Anatomical Region Laterality Modality Chest Radiographic Altagracia ging 04/12/2024 3:17 PM EST Narrative 04/12/2024 3:18 PM EST ? [facility] ?[address] ?[place] [address] ?XRay Report ? Signed ? Patient: Esparra Seals,Hari ?MR#: ?? [id number] ? : 1965 ?Acct:[id number] ? Age/Sex: 59 / M ?ADM Date: 04/12/24 ? Loc: HO.ED ? Attending Dr: ? Ordering Physician: Pebbles Rooney CNP ?? Date of Service: 04/12/24 ?? Procedure(s): XR chest 2V ?? Accession Number(s): [id number] ? cc: Pebbles oRoney CNP; Name,Ananda CRANDALL ? CLINICAL HISTORY: SOB [...] ? DD/ 16 ? TD/TT: 04/12/241516 ? Director Of Slot Operations: ? Procedure Note Wilter, Image - 04/12/[address] [address] XRay Report Signed Patient: Hubert Cruz MMR#: [id number] : 1965Acct:[id number] Age/Sex: 59 / MADM Date: 04/12/24 Loc: HO.ED Attending Dr: Ordering Physician: Pebbles Rooney CNP Date of Service: 04/12/24 Procedure(s): XR chest 2V Accession Number(s): [id number] cc: Pebbles Rooney CNP; Name,Ananda CRANDALL CLINICAL [...] OV> 04/12/24 1518 DD/ 1517 TD/TT: 04/12/24 151 Director Of Slot Operations: [facility] External Provider IMG XR PROCEDURES Edited Result - Final * High Sensitivity Troponin I (04/12/2024 2:06 PM EST) Only the most recent of2 resultswithin the time period is included. TROPONIN I HIGH SENSITIVITY 6.3 <3.5 - 35.0 ng/L [facility] Comment:The [place] high sens itivity Troponin-I results should beused in conjunction with other diagnostic information suchas ECG, clinical observations and information, and patientsymptoms to aid in the diagnosis of [place]. 04/12/2024 2:06 PM EST 04/12/2024 2:09 PM EST Generic External Data Provider LAB BLOOD ORDERAB LES Final Result [facility] [address] [place] [phone] * SARS-CoV-2 RNA, Influenza A/B, and RSV RNA, Ql NAAT (04/12/2024 2:06 PM EST) Only the most recent of2 resultswithin the time period is included. Influenza A PCR NEGATIVE Negative [facility] Influenza B PCR NEGATIVE Negative [facility] Resp Syncy Virus RNA Qual PCR NEGATIVE Negative [facility] SARS COV2 PCR NEGATIVE Negative [facility] Comment:All test results mus t [...] use by authorized laboratories.Testing performed on the [employer] GeneXpert utilizingreal-time RT-PCR.All SARS CoV2 and positive influenza A/B results arereported to [facility]. 04/12/2024 2:06 PM EST 04/12/2024 2:09 PM EST Generic External Data Provider LAB MICROBIOLOGY - GENERAL ORDERABLES Final Result Performing Organization Address [facility] Co de Phone Number [facility] [address] [place] [phone] * Prothrombin Time-INR (04/12/2024 2:06 PM EST) Only the most recent of2 resultswithin the time period is included. Prothrombin Time 11.3 10.9 - 12.4 SEC [facility] INTERNATIONAL NORM RATIO 1.0 0.9 - 1.1 [facility] Comment:INTERNATIONAL NORMAL IZED RATIO (INR) [...] ORDERAB LES Final Result Performing Organization Address [facility] Co de Phone Number [facility] [address] [place] [phone] * B Type Natriuretic Peptide (BNP) (04/12/2024 2:06 PM EST) B Type Natriuretic Peptide 11 <100 pg/mL [facility] Comment:For those patients w ho are being treated with Natrecor(nesiritide, recombinant BNP), BNP testing should beperformed at least two hours post treatment in order toensure that only endogenous levels of BNP are detected. 04/12/2024 2:06 PM EST 04/12/2024 2:09 PM EST Generic External Data Provider LAB BLOOD ORDERAB LES Final Result Performing Organization Address [facility] de Phone Number [facility] [address] [place] [address] [phone] * Magnesium (04/12/2024 2:06 PM EST) Magnesium 1.9 1.6 - 2.6 mg/dL [facility] 04/12/2024 2:06 PM EST 04/12/2024 2:09 PM EST Generic External Data Provider LAB BLOOD ORDERAB LES Final Result Performing Organization Address [facility] de Phone Number [facility] [address] [place] [phone] * XR Chest 1 View (03/29/2024 12:43 PM EST) Anatomical Region Laterality Modality Chest Radiographic Altagracia ging 03/29/2024 12:4 3 PM EST Narrative 03/29/2024 12:44 PM EST ? [facility] ?[address] ?[place] [address] ?XRay Report ? Signed ? Patient: Hubert Cruz ?MR#: ?? [id number] ? : 1965 ?Acct:[id number] ? Age/Sex: 58 / M ?ADM Date: 01/26/25 ? Loc: HO.ED ? Attending Dr: ? Ordering Physician: Tiffanie Ulloa NP ?? Date of Service: 03/29/24 ?? Procedure(s): XR chest 1V ?? Accession Number(s): [id number] ? cc: Name,Ananda CRANDALL; Tiffanie Ulloa NP ? CLINICAL HISTORY: cough, shortness of breath ? 1 view chest x-ray ? Comparison: CR/SR - XR CHEST 2V - 12/19/21 14:24 EDT ?? [place] [id number] - 02/26/19 13:51 EST ? Findings: ?? [...] DD/ 1243 ? TD/TT: 03/29/24 1243 ? Director Of Slot Operations: ? Procedure Note Kay, Image - 03/29/2024 [place] [address] XRay Report Signed Patient: Hubert Cruz MMR#: [id number] : 1965Acct:[id number] Age/Sex: 58 / MADM Date: 03/29/24 Loc: HO.ED Attending Dr: Ordering Physician: Tiffanie Ulloa NP Date of Service: 03/29/24 Procedure(s): XR chest 1V Accession Number(s): [id number] cc: Ananda Spain MD; Tiffanie Ulloa NP CLINICAL HISTORY: cough, shortness of breath 1 view chest x-ray Comparison: CR/SR - XR CHEST 2V - 12/19/21 14:[address] [id number] - 02/26/19 13:51 EST Findings: Overinflation and [...] 03/29/24 1244 DD/ 1243 TD/TT: 03/29/24 1243 Director Of Slot Operations: [facility] External Provider IMG XR PROCEDURES Edited Result - Final * (ABNORMAL) Hepatic Function Panel (03/29/2024 11:41 AM EST) Bilirubin, Total 1.3(H) 0.0 - 1.0 mg/dL [facility] Bilirubin, Direct 0.4 0.0 - 0.5 mg/dL [facility] Aspartate Amino Transferase 22 5 - 37 U/L [facility] Alanine Aminotransferase 16 0 - 40 U/L [facility] Total Protein 7.8 6.5 - 8.0 g/dL [facility] Albumin Level 4.7 3.5 - 5.0 g/dL [facility] Alkaline Phosphatase 66 39 - 117 U/L [facility] 03/29/2024 11:4 1 AM EST 03/29/2024 11:44 AM EST Generic External Data Provider LAB BLOOD ORDERAB LES Final Result [facility] [address] [place] [address] [phone] * (ABNORMAL) Basic Metabolic Panel (03/29/2024 11:41 AM EST) Sodium 139 135 - 145 mmol/L [facility] Potassium 4.9 3.3 - 5.1 mmol/L [facility] Chloride 103 96 - 108 mmol/L [facility] Carbon Dioxide 30(H) 22 - 29 mmol/L [facility] Anion Gap 11(L) 12 - 20 [facility] Urea Nitrogen (BUN) 15 9 - 16 mg/dL [facility] Creatinine, Serum 0.96 0.5 - 1.4 mg/dL [facility] Creatinine Clr Calc Pharmacy 65.6 [facility] Comment:eGFR (calculated fro m the MDRD study equation) and eCrCl(calculated from the Cockcroft-Gault equation) are based ondifferent parameters and may not yield comparable results.If eCrCl result is absurd, please check patient'sheight/weight. Estimated Glomerular Filt Rate >60 [facility] Comment:Chronic Kidney Disea se: Estimated GFR < 60 mL/min/1.85g2Cwkqxw Kidney Disease: Estimated GFR < 15 mL/min/1.73m2 Glucose 203(H) 60 - 115 mg/dL [facility] Calcium 9.9 8.4 - 10.2 mg/dL [facility] 03/29/2024 11:4 1 AM EST 03/29/2024 11:44 AM EST Generic External Data Provider LAB BLOOD ORDERAB LES Final Result Performing Organization Address City/[facility]/ZIP Co de Phone Number [facility] [address] [place] [phone] * Partial Thromboplastin Time, Activated (APTT) (03/29/2024 11:40 AM EST) [facility] Partial Thromboplastin Time 30.0 26.0 - 36.8 SEC [facility] Comment:For information rega rding the monitoring of direct thrombininhibitors, please refer to Pharmacy. 03/29/2024 11:4 0 AM EST 03/29/2024 11:44 AM EST us Generic External Data Provider LAB BLOOD ORDERAB LES Final Result Performing Organization Address [facility] Co de Phone Number [facility] [address] [place] [phone] * (ABNORMAL) Hepatitis C Antibody with Reflex to HCV, RNA, Quantitative, Real- Time PCR (03/29/2023 9:12 AM EST) Pathologist [facility] Hepatitis C Antibody Reactive( A) Nonreactive [facility] Comment:Presumptive evidence of antibodies to HCV. 03/29/2023 9:12 AM EST 03/29/2023 11:11 AM EST us Latrice Ibrahim MD LAB BLOOD ORDERABLES Final Resul t [facility] [address] [place] [phone] [phone] * HIV-1/2 Antigen and Antibodies, Fourth Generation, with Reflexes (03/29/2023 9:12 AM EST) Pathologist [facility] HIV AB/AG Nonreactive Nonreactive [facility] Comment:HIV-1 p24 Ag and/or HIV-1/HIV-2 Ab not detected.A test result that is nonreactive does not exclude thepossibility of exposure to or infection with HIV-1 and/orHIV-2. Nonreactive results in this assay for individualswith prior exposure to HIV-1 and/or HIV-2 may be due toantigen and antibody levels that are below the limit ofdetection of this assay.The [employer] HIV Ag/Ab Combo assay result andsupplemental assay results should be interpreted inconjunction with the patient's clinical presentation,history and other laboratory results. If the results areinconsistent with clinical evidence, additional testing issuggested to confirm the result. 03/29/2023 9:12 AM EST 03/29/2023 11:11 AM EST us Latrice Ibrahim MD LAB BLOOD ORDERABLES Final Resul t [facility] [address] [place] [phone] [phone] * Hm Colonoscopy (08/16/2015 1:52 PM EDT) Colonoscopy Normal Normal Narrative Preeti Gloria - 08/16/2015 1:52 PM EDT Recommended 10 year follow up Historical Provider HEALTH MAINTENANCE Final Result from Last 3 Months or Most Recently Relevant to Health Maintenance Insurance [facility] Member Subscriber Plan / Payer ( fective 2013-Present) Name:Hubert Rios Relation to Subscriber:Self Name:Hubert Rios Payer ID:Not on file Group ID:[id number] Type:Not on file Address: [address] ONE CARE < 66 [place] [address] Care Teams Industrial Fabric Cutter Relationship Specialty Start Date End Date Name, MD Ananda [address] [place] [address] PCP - General Family Medicine 06/01/15
--- OUTSIDE RECORDS SUMMARY | 2024-06-26 08:53 | XMS_ITS | Encounter Summary ---
Author Organization [employer] Address [address] [place] [address] Care Team Providers Care Promotion Officer Name Role Phone Name, Ananda CRANDALL Primary Care Provider [phone] Reason for Visit * Reason Comments Med Refill Encounter Details Date Type Department Care Team (Late Contact Info) Description 12/07/2022 Refill [facility] [address] [place] [address] [phone] Name, MD Ananda [address] [place] [phone] Type 2 diabetes mellitus without complication, unspecified whether predatory animal exterminator insulin use ([facility]); Type 2 diabetes mellitus without complication, with long-term current use of insulin ([facility]) Social History Tobacco Use Types Packs/Day [...] Upcoming Encounters Date Type Department Care Team ([facility] Contact Info) Description 07/08/2024 9:15 AM EDT Office Visit [facility] [address] [place] [phone] Latrice Ibrahim MD [address] [place] [address] 07/15/2024 10:45 AM EDT Office Visit [facility] [address] [place] [address] Name, MD Ananda [address] [place] [address] 07/17/2024 11:15 AM EDT Office Visit [facility] [address] [place] [address] Natalie Davis, OD [address] [place] [address] 07/21/2024 9:30 AM EDT Telemedicine [facility] [address] [place] [address] Geeta Dove, PharmD [address] [place] [address] documented as of this encounter Visit Diagnoses Diagnosis Type 2 diabetes mellitus without complication, unspecified whether mcfp insulin use ([facility]) documented in this encounter Additional Health Concerns Assessment Noted Time PHQ-9 Depression Total Score: 3 10/04/19 23 2:21 PM EDT documented as of this encounter Care Teams Promotion Officer Relationship Specialty Start Date End Date Name, MD Ananda [address] [place] [phone] PCP - General Family Medicine 06/01/15 documented as of this encounter
--- OUTSIDE RECORDS SUMMARY | 2024-06-26 08:53 | XMS_ITS | Data Portability ---
Author Organization [employer] [place] [facility] Address [address] [place] [phone] Care Team Providers Care Metal Washing Machine Operator Name Role Phone HIM CCA OTHER Assessment Encounter Date Assessment Date Assessment LastModified by Organization Details LastModified Time 04/23/2024 04/23/2024 I have reviewed and agree with the assessment and plan as documented by the biotechnologist. I provided real-time medical direction for this encounter and was immediately available to provide additional phone-based assistance as needed. History as noted in EMR and by biotechnologist. I would add / emphasize: Patient seen [...] this. Patient was in agreement transported to [facility] subsequently. pallfather Not available 04/24/2024 14:02:36 Plan of Treatment Reminders Order Date Submit Date Provider Last Modified By Organization Details Last Modified Time Details Appointments None recorded. Lab rapid SARS CoV 2 Ag, QL [place], respiratory specimen [address], [phone] 5 14:47:38 rapid flu (A+B) [address], [phone] 5 14:47:39 Referral None recorded. Procedures None [...] SNOMED-CT Code Diagnosis ICD10 Code Diagnosis Note [id number] Dillon Galeano MD Main - instED [address] [place] [phone] 04/23/2024 18:36:39 04/24/2024 20:56:44 Hypoxemia 693682298 R09.02 Health Concerns Section Related Observation LastModified by Organization Detai ls LastModified Time None Recorded Concern Status LastModified by Organization Details LastModified Time None Recorded Advance Directives Directive None Recorded Payers Encounter Date Sequence Insurance Name Policy Number Policy Tomlin Covered Member ID Tomlin Member ID Guarantor Name 04/23/2024 1 [facility] - DOS ON OR AFTER 2022 - DUAL ELIGIBLE - [facility] OPT[facility] AND ONE CARE (MEDICARE REPLACEMENT/ADV ANTAGE - HMO) Hubert Rios [id number] Hubert Rios Notes Date Note Type Note [...] does not report any new symptoms- NE Rn Immunology Organization Information for [facility] Business Legal Name: [employer]? Address: [address] [place] [address], [place] [address], Middleware Architect: Gucci VELEZ No.: [id number] Rn Immunology POC Test Results from [facility] Rapid COVID antigen (18:34:09) COVID: - Attachments uploaded as part of this test result can be found under Documents section. Rapid influenza antigen (18:34:10) Flu: - Attachments uploaded as part of this test result can be found under Documents section. .................. .................. .................. .................. .................. .................. .................. ............... Rn Immunology Note From [facility]: Dispatched to above [...] to low 80s, HR increased to 115-120. [facility] contacted, advised of patient complaints, exam findings and test results. [facility] recommends transport to ER for further evaluation due to concerns for PE. Patient agrees with this plan. 911 called, [facility] and [facility] responded. Verbal report given to [facility] Rn Immunology, took over patient care, will transport to [facility]. Sc8 clear. EOR. .................. .................. .................. .................. .................. .................. .................. ............... [facility] Consulted: Dillon Galeano .................. .................. .................. .................. .................. .................. .................. ............... Disposition: Fulfilled Dillon Galeano MD [address] [facility],[address], [place], [address], Varthana 04/24/2024 14:02:45
--- OUTSIDE RECORDS SUMMARY | 2024-06-26 08:53 | XMS_ITS | Encounter Summary ---
Author Organization [employer] Address [address] [place] [address] Care Team Providers Care Barber Apprentice Name Role Phone Name, Ananda CRANDALL Primary Care Provider [phone] Encounter Details Date Type Department Care Team ([facility] Contact Info) Description 08/13/2022 Abstract [facility] [address] [place] [address] [phone] Name, MD Ananda [address] [place] [address] [phone] Social History Tobacco Use Types Packs/Day Years [...] Upcoming Encounters Date Type Department Care Team ([facility] Contact Info) Description 07/08/2024 9:15 AM EDT Office Visit [facility] [address] [place] [address] [phone] Latrice Ibrahim MD [address] [place], [place] [phone] 07/15/2024 10:45 AM EDT Office Visit [facility] [address] [place] [address] Name, MD Ananda [address] [place] [address] 07/17/2024 11:15 AM EDT Office Visit [facility] OPTOMETRY [address] [place] [address] Tarka, Natalie, OD [address] [place] [address] 07/21/2024 9:30 AM EDT Telemedicine [facility] [address] [place] [address] JamilahiaGeeta, PharmD [address] [place] [address] documented as of this encounter Procedures Procedure [...] on filedocumented in this encounter Care Teams Barber Apprentice Relationship Specialty Start Date End Date Name, MD Ananda [address] [place] [phone] PCP - General Family Medicine 06/01/15 documented as of this encounter
--- OUTSIDE RECORDS SUMMARY | 2024-06-26 08:53 | XMS_ITS | Encounter Summary ---
Author Organization [employer] Address [address] [place] [address] Care Team Providers Care Director Of Clinical Trials Name Role Phone Name, Ananda CRANDALL Primary Care Provider [phone] Reason for Visit * Reason Comments Med Refill Encounter Details Date Type Department Care Team ([facility] Contact Info) Description 06/22/2024 Refill [facility] [address] [place], [place] [phone] Name, MD Ananda [address] [place] [address] Seasonal allergic rhinitis, unspecified trigger Social History Tobacco Use Types Packs/Day Years [...] Description 07/08/2024 9:15 AM EDT Office Visit [facility] [address] [place] [phone] Latrice Ibrahim MD [address] [place] [address] 07/15/2024 10:45 AM EDT Office Visit [facility] [address] [place] [phone] Ananda Spain MD [address] [place] [phone] 07/17/2024 11:15 AM EDT Office Visit [facility] OPTOMETRY [address] [place] [phone] Natalie Davis, OD [address] [place] [address] 07/21/2024 9:30 AM EDT Telemedicine [facility] [address] [place] [phone] Geeta Dove PharmD [address] [place] [phone] documented as of this encounter Goals Goal Patient Goal Type Associated Problems Recent Progress Patient-Stated? Author Increase coping skills to promote long-term recovery and improve ability to perform daily activities General On track( 025 9:51 AM EDT) No Sonali Stubbs, RN Reduce tobacco use (cigarettes, smokeless, etc) Tobacco Use No Sonali Stubbs, RN documented as of this encounter Visit Diagnoses Diagnosis Seasonal allergic rhinitis, unspecified trigger documented in this encounter Additional Health Concerns Assessment Noted Time PHQ-9 Depression Total Score: 10 024 9:15 AM EDT documented as of this encounter Care Teams Director Of Clinical Trials Relationship Specialty Start Date End Date Name, MD Ananda [address] [place] [address] PCP - General Family Medicine 06/01/15 documented as of this encounter
--- OUTSIDE RECORDS SUMMARY | 2024-06-26 08:53 | XMS_ITS | Encounter Summary ---
Author Organization [employer] Address [address] [place] [address] Care Team Providers Care Occupational Health And Safety Adviser Name Role Phone Name, Ananda CRANDALL Primary Care Provider [phone] Encounter Details Date Type Department Care Team ([facility] st Contact Info) Description 03/28/2023 Abstract [facility] [address] [place], [place] [phone] Name, MD Ananda [address] [place] [address] Social History Tobacco Use Types Packs/Day Years [...] t he electric, gas, oil or water [employer] threatened to shut off services in your [...] Office Visit [facility] [address] [place] [address] Latrice Ibrahim MD [address] [place] [phone] 07/15/2024 10:45 AM EDT Office Visit [facility] [address] [place] [phone] Ananda Spain MD [address] [place] [phone] 07/17/2024 11:15 AM EDT Office Visit [facility] OPTOMETRY [address] [place] [phone] Tarka, Natalie, OD [address] [place] [address] 07/21/2024 9:30 AM EDT Telemedicine [facility] [address] [place] [phone] Geeta Dove, PharmD [address] [place] [phone] documented as of this encounter Visit Diagnoses Not on filedocumented in this encounter Additional Health Concerns Assessment Noted Time PHQ-9 Depression Total Score: 3 10/04/19 23 2:21 PM EDT documented as of this encounter Care Teams Occupational Health And Safety Adviser Relationship Specialty Start Date End Date Ananda Spain MD [address] [place] [phone] PCP - General Family Medicine 06/01/15 documented as of this encounter
--- OUTSIDE RECORDS SUMMARY | 2024-06-26 08:53 | XMS_ITS | Encounter Summary ---
Author Organization [employer] Address [address] [place] [address] Care Team Providers Care Lan Engineer Name Role Phone Name, Ananda CRANDALL Primary Care Provider [phone] Encounter Details Date Type Department Care Team (Late Contact Info) Description 05/10/2022 Orders Only [facility] [address] [place] [address] [phone] Alis Zavala RN Uncomplicated opioid dependence ([facility]) Social History Tobacco Use [...] Description 07/08/2024 9:15 AM EDT Office Visit [facility] [address] [place] [address] [phone] Latrice Ibrahim MD [address] [place] [address] [phone] 07/15/2024 10:45 AM EDT Office Visit [facility] [address] [place] [address] Name, MD Ananda [address] [place] [address] 07/17/2024 11:15 AM EDT Office Visit [facility] [address] [place] [address] Natalie Davis, OD [address] [place] [address] 07/21/2024 9:30 AM EDT Telemedicine [facility] [address] [place] [address] Geeta Dove, PharmD [address] [place] [address] documented as of this encounter Visit Diagnoses Diagnosis Uncomplicated opioid dependence ([facility]) documented in this encounter Care Teams Lan Engineer Relationship Specialty Start Date End Date NameAnanda MD [address] [place] [address] PCP - General Family Medicine 06/01/15 documented as of this encounter
--- OUTSIDE RECORDS SUMMARY | 2024-06-26 08:53 | XMS_ITS | Encounter Summary ---
Author Organization [employer] Address [address] [facility] [address] 7[address] [place] [address] Care Team Providers Care Artificial Foliage Arranger Name Role Phone Name, Ananda CRANDALL Primary Care Provider [phone] Reason for Visit * Reason Comments Med Refill Encounter Details Date Type Department Care Team ([facility] Contact Info) Description 03/08/2024 Refill [facility] MEDICINE [address] [place], [place] [phone] Name, MD Ananda 230 [place], [place] [phone] Chronic obstructive pulmonary disease, unspecified COPD type [...] 07/08/2024 9:15 AM EDT Office Visit [facility] MEDICINE [address] [place] [address] 36[address] Latrice Ibrahim MD [address] [place] [address] 84[address] 07/15/2024 10:45 AM EDT Office Visit [facility] MEDICINE [address] [place] [address] 07296 Ananda Spain MD [address] [place] [address] 48[address] 07/17/2024 11:15 AM EDT Office Visit [facility] OPTOMETRY [address] [place] [phone] Natalie Davis, OD [address] [place] [address] 07/21/2024 9:30 AM EDT Telemedicine [facility] MEDICINE [address] [place] [address] 17[address] Geeta Dove, Donte [address] [place] [address] 8[address]10 documented as of this encounter Visit Diagnoses Diagnosis Chronic obstructive pulmonary disease, unspecified COPD type (CMS/HCC) documented in this encounter Additional Health Concerns Assessment Noted Time PHQ-9 Depression Total Score: 10 024 9:15 AM EDT documented as of this encounter Care Teams Artificial Foliage Arranger Relationship Specialty Start Date End Date Name, MD Ananda 230 [place] [address] PCP - General Family Medicine 06/01/15 documented as of this encounter
--- OUTSIDE RECORDS SUMMARY | 2024-06-26 08:53 | XMS_ITS | Encounter Summary ---
Author Organization [employer] Address [address] [facility] [address] 7t [place] [address] Care Team Providers Care Club Licensee Name Role Phone Name, Ananda CRANDALL Primary Care Provider [phone] Encounter Details Date Type Department Care Team ([facility] Contact Info) Description 03/28/2022 Orders Only [facility] CHC MED & PEDS [address] [place], [place] [phone] Teresa Moody LPN Social History Tobacco Use [...] Care Team ([facility] Contact Info) Description 07/08/2024 9:15 AM EDT Office Visit [facility] MEDICINE [address] [place] [address] [phone] Latrice Ibrahim MD 230 [place] [address] 07/15/2024 10:45 AM EDT Office Visit [facility] MEDICINE [address] [place] [address] 10[address] Name, MD Ananda 230 [place] [address] 07/17/2024 11:15 AM EDT Office Visit [facility] OPTOMETRY [address] [place] [address] Natalie Davis, OD [address] [place] [address] 07/21/2024 9:30 AM EDT Telemedicine [facility] MEDICINE [address] [place] [address] 50821 Geeta Dove, LoretoD 230 [place] [address] documented as of this encounter Visit Diagnoses Not on filedocumented in this encounter Care Teams Club Licensee Relationship Specialty Start Date End Date Name, MD Ananda [address] [place] [address] PCP - General Family Medicine 06/01/15 documented as of this encounter
--- OUTSIDE RECORDS SUMMARY | 2024-06-26 08:53 | XMS_ITS | Encounter Summary ---
Author Organization [employer] Address [address] [facility] [address] 7[address] [place] [address] Care Team Providers Care Extension Service Agent Name Role Phone Name, Ananda CRANDALL Primary Care Provider [phone] Encounter Details Date Type Department Care Team (Latest Contact Info) Description 01/06/2019 Abstract [facility] CONVERSIONS Dental, Provider, DDS Social History Tobacco [...] Description 07/08/2024 9:15 AM EDT Office Visit [facility] MEDICINE [address] [place] [address] Latrice Ibrahim MD [address] [place] [address] 34[address] 07/15/2024 10:45 AM EDT Office Visit [facility] MEDICINE [address] [place] [address] [phone] Grabiel, MD Ananda 230 [place] [address] 07/17/2024 11:15 AM EDT Office Visit [facility] OPTOMETRY [address] [place], [place] [phone] Natalie Davis, OD 267 [place] [address] 07/21/2024 9:30 AM EDT Telemedicine [facility] MEDICINE 230 [place], [place] [phone] Geeta Dove, Donte 230 [place] [address] documented as of this encounter Visit Diagnoses Not on filedocumented in this encounter Care Teams Extension Service Agent Relationship Specialty Start Date End Date Name, MD Ananda 230 [place] [address] PCP - General Family Medicine 06/01/15 documented as of this encounter
[2024-06-26 09:06] VITALS: BP 119/69; PULSE 82; BMI 20.1
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
== END 2024-06-26 09:59 | disposition home or self-care (01) ==
PROVIDERS: PCP Internal Medicine Geriatric Medicine; Visit Provider Nurse Practitioner
DX: Z01.818 Encounter for other preprocedural examination (principal); Z12.11 Encounter for screening for malignant neoplasm of colon; Z86.0101 Personal history of adenomatous and serrated colon polyps
CPT/HCPCS: 99024

== ENCOUNTER → 2024-06-26 08:48 | Outpatient (BNVA) | payer OTHER, SELFPAY | PROVIDERS: PCP Internal Medicine Geriatric Medicine; Visit Provider Nurse Practitioner Family | DX: Z01.818 Encounter for other preprocedural examination (principal); J44.9 Chronic obstructive pulmonary disease, unspecified; F17.210 Nicotine dependence, cigarettes, uncomplicated; D12.6 Benign neoplasm of colon, unspecified; Z87.828 Personal history of other (healed) physical injury and trauma | CPT/HCPCS: 99212 ==

== ENCOUNTER 2024-07-02 07:41 | Outpatient (REF) | payer OTHER, SELFPAY ==
--- NOTE | ~2024-07-02 | CT_ITS ---
EXAMINATION: CT CHEST WITHOUT IV CONTRAST INDICATION: R93.89 - Abnormal findings on diagnostic imaging of other specified body... COMPARISON: Comparison is made with the prior examination dated 02/26/2019. TECHNIQUE: Helical CT scan of the chest was performed without intravenous contrast. Coronal and sagittal reformatted images were generated and reviewed. This CT exam was performed with one or more of the following dose reduction techniques: automated exposure control, adjustment of the mA and/or kV according to patient size, use of iterative reconstruction technique. DLP: 110 mGy-cm CHEST: THYROID: The thyroid is unremarkable. LUNGS: There are mild emphysematous changes. There is mild biapical pleural and parenchymal scarring. There is a subcentimeter curvilinear density in the right upper lobe (series 4, image 67) without change. There is a 3 mm nodule in the right lower lobe (series 4, image 93). Again seen is a calcified granuloma at the left lung base (series 4, image 129). There is mild fibrotic change at the lung bases. Nodular airspace opacities in the right posterior costophrenic angle are unchanged. MEDIASTINUM: There are subcentimeter subcarinal lymph nodes. There is no mediastinal lymphadenopathy. ALEX: Evaluation of the hilar regions is limited by lack of intravenous contrast material. CARDIOVASCULATURE: The heart is normal in size. There is no pericardial effusion. The thoracic aorta is normal in caliber. DEGREE OF CORONARY CALCIFICATION: mild PLEURA: There is no pleural effusion. No pneumothorax. MAIN AIRWAYS: The mainstem bronchi and proximal branches are patent. AXILLA: There is no axillary lymphadenopathy. BONES AND SOFT TISSUES: Unremarkable UPPER ABDOMEN: The visualized portions of the liver, spleen, and adrenals have an unremarkable unenhanced appearance. CT/CT chest wo IV con IMPRESSION: Mild emphysema. Chronic lung changes as described. No acute abnormality is identified. Electronically signed by: Víctor Barnes MD 07/02/2024 09:58 AM EDT
--- OUTSIDE RECORDS SUMMARY | 2024-07-02 07:43 | XMS_ITS | Encounter Summary ---
Author Organization [employer] Address [address] 7t [place] [address] Care Team Providers Care Merchandise Examiner Name Role Phone Name, Ananda CRANDALL Primary Care Provider [phone] Encounter Details Date Type Department Care Team ([facility] Contact Info) Description 03/28/2022 Orders Only [facility] CHC MED & PEDS [address] [place], [place] [phone] Teresa Moody LPN Social History Tobacco Use [...] Upcoming Encounters Date Type Department Care Team ([facility] Contact Info) Description 07/08/2024 9:15 AM EDT Office Visit [facility] MEDICINE [address] [place] [address] [phone] Latrice Ibrahim MD 230 [place] [address] 07/15/2024 10:45 AM EDT Office Visit [facility] MEDICINE [address] [place] [address] 22627 Name, MD Ananda 230 [place] [address] 07/17/2024 11:15 AM EDT Office Visit [facility] OPTOMETRY [address] [place] [address] Natalie Davis, OD [address] [place] [address] 07/21/2024 9:30 AM EDT Telemedicine [facility] MEDICINE [address] [place] [address] 31685 Geeta Dove PharmD [address] [place] [address] 09294 08/05/2024 9:15 AM EDT Clinical Support [address] [address] Sonali Stubbs, RN [address] [place] [address] 43208 documented as of this encounter Visit Diagnoses Not on filedocumented in this encounter Care Teams Merchandise Examiner Relationship Specialty Start Date End Date Name, MD Ananda [address] [place] [address] 41726 PCP - General Family Medicine 06/01/15 documented as of this encounter
--- OUTSIDE RECORDS SUMMARY | 2024-07-02 07:43 | XMS_ITS | Encounter Summary ---
Author Organization [employer] Address [address] [facility] [address] 7t [place] [address] Care Team Providers Care Environmental Property Assessor Name Role Phone Name, Ananda CRANDALL Primary Care Provider Reason for Visit * Reason Comments Med Refill Encounter Details Date Type Department Care Team ([facility] Contact Info) Description 03/08/2024 Refill [facility] MEDICINE 230 [place], [place] [phone] Name, MD Ananda 230 [place], [place] [phone] Chronic obstructive pulmonary disease, unspecified COPD type [...] 07/08/2024 9:15 AM EDT Office Visit [facility] MEDICINE [address] [place] [address] Latrice Ibrahim MD [address] [place] [address] 6[address] 07/15/2024 10:45 AM EDT Office Visit [address] [address] NameAnanda MD [address] [place] [address] 0[address] 07/17/2024 11:15 AM EDT Office Visit [facility] OPTOMETRY [address] [place] [address] 265[address] Natalie Davis, OD [address] [place] [address] 07/21/2024 9:30 AM EDT Telemedicine [address] [address] Geeta Dove, Donte [address] [place] [address] 56677 08/05/2024 9:15 AM EDT Clinical Support [address] [address] Sonali Stubbs, RN 230 [place] [address] documented as of this encounter Visit Diagnoses Diagnosis Chronic obstructive pulmonary disease, unspecified COPD type (CMS/HCC) documented in this encounter Additional Health Concerns Assessment Noted Time PHQ-9 Depression Total Score: 10 024 9:15 AM EDT documented as of this encounter Care Teams Environmental Property Assessor Relationship Specialty Start Date End Date Name, MD Ananda 230 [place] [address] PCP - General Family Medicine 06/01/15 documented as of this encounter
--- OUTSIDE RECORDS SUMMARY | 2024-07-02 07:43 | XMS_ITS | Encounter Summary ---
Author Organization [employer] Address [address] [facility] [address] 7t [place] [address] Care Team Providers Care Visitor Services Specialist Name Role Phone Name, Ananda CRANDALL Primary Care Provider [phone] Reason for Visit * Reason Onset Date Comments Prior Authorization 05/07/2022 Appointment 05/07/2022 Encounter Details Date Type Department Care Team ([facility] st Contact Info) Description 05/07/2022 Telephone [facility] ADULT DENTAL [address] [place] [address] Kelvin Haque, DDS [address] [place] [address] Prior Authorization; Appointment Social History Tobacco Use [...] specify if for partial. Don't see if [facility] has approved partials for patient. Patient verifying. DR documented in this encounter Plan of Treatment Upcoming Encounters Date Type Department Care Team (Late st Contact Info) Description 07/08/2024 9:15 AM EDT Office Visit [facility] MEDICINE [address] [place] [address] 423[address] Latrice Ibrahim MD [address] [place] [address] 116[address] 07/15/2024 10:45 AM EDT Office Visit [address] [address] Name, MD Ananda [address] [place] [address] 40931 07/17/2024 11:15 AM EDT Office Visit [facility] OPTOMETRY [address] [place] [address] Natalie Davis, OD [address] [place] [address] 07/21/2024 9:30 AM EDT Telemedicine [address] [address] Geeta Dove, PharmD [address] [place] [address] 827[address] 08/05/2024 9:15 AM EDT Clinical Support [address] [address] Sonali Stubbs, COREY [address] [place] [address] documented as of this encounter Visit Diagnoses Not on filedocumented in this encounter Care Teams Visitor Services Specialist Relationship Specialty Start Date End Date Name, MD Ananda [address] [place] [address] 11549 PCP - General Family Medicine 06/01/15 documented as of this encounter
--- OUTSIDE RECORDS SUMMARY | 2024-07-02 07:43 | XMS_ITS | Encounter Summary ---
Author Organization [employer] Address [address] [facility] [address] 7t [place] [address] Care Team Providers Care Appeals Rn Name Role Phone Name, Ananda CRANDALL Primary Care Provider [phone] Reason for Visit * Reason Onset Date Comments case in lab 10/03/2022 Encounter Details Date Type Department Care Team ([facility] st Contact Info) Description 10/03/2022 Telephone [facility] ADULT DENTAL [address] [place] [address] Kelvin Haque, DDS [address] [place] [address] case in lab Social History Tobacco Use [...] - 10/03/2022 2:29 PM EDT Hubert from [employer] called in noel that the soonest they can get case back in to office would be 10/10. They stated it is 5 business days and does not include drop off or pick up driver date. Confirmed with Hubert that as of yet appt has not been scheduled to return and that I would inform officeDR documented in this encounter Plan of Treatment Upcoming Encounters Date Type Department Care Team (Late st Contact Info) Description 07/08/2024 9:15 AM EDT Office Visit [facility] MEDICINE [address] [place] [address]83 Latrice Ibrahim MD [address] [place] [address] 07/15/2024 10:45 AM EDT Office Visit [facility] MEDICINE [address] [place] [address] Ananda Spain MD [address] [place] [address] 07/17/2024 11:15 AM EDT Office Visit [facility] OPTOMETRY [address] [place] [address] Natalie Davis, OD 267 [place] [address] 07/21/2024 9:30 AM EDT Telemedicine [facility] MEDICINE [address] [place] [address] Geeta Dove, PharmD [address] [place] [address] 08/05/2024 9:15 AM EDT Clinical Support [address] [address] Sonali Stubbs, COREY [address] [place] [address] documented as of this encounter Visit Diagnoses Not on filedocumented in this encounter Additional Health Concerns Assessment Noted Time PHQ-9 Depression Total Score: 3 10/04/19 23 2:21 PM EDT documented as of this encounter Care Teams Appeals Rn Relationship Specialty Start Date End Date Name, MD Ananda 230 [place] [address] PCP - General Family Medicine 06/01/15 documented as of this encounter
--- OUTSIDE RECORDS SUMMARY | 2024-07-02 07:43 | XMS_ITS | Encounter Summary ---
Author Organization [employer] Address [address] [facility] [address] 7t [place] [address] Care Team Providers Care Acting Teacher Name Role Phone Name, Ananda CRANDALL Primary Care Provider [phone] Reason for Visit * Reason Comments Med Refill Encounter Details Date Type Department Care Team (Late Contact Info) Description 12/07/2022 Refill [facility] MEDICINE [address] [place] [address] [phone] Name, MD Ananda [address] [place] [address] Type 2 diabetes mellitus without complication, unspecified whether half-way insulin use ([facility]); Type 2 diabetes mellitus without complication, with long-term current use of insulin ([facility]) Social History Tobacco Use Types Packs/Day Years [...] Upcoming Encounters Date Type Department Care Team ([facility] Contact Info) Description 07/08/2024 9:15 AM EDT Office Visit [facility] MEDICINE [address] [place] [address] Latrice Ibrahim MD 230 [place] [address] 07/15/2024 10:45 AM EDT Office Visit [facility] MEDICINE [address] [place] [address] Name, MD Ananda 230 [place] [address] 07/17/2024 11:15 AM EDT Office Visit [facility] OPTOMETRY [address] [place] [address] Natalie Davis, OD 267 [place] [address] 07/21/2024 9:30 AM EDT Telemedicine [facility] MEDICINE [address] [place] [address] Geeta Dove, PharmD [address] [place] [address] 08/05/2024 9:15 AM EDT Clinical Support [facility] MEDICINE [address] [place] [address] Sonali Stubbs, COREY [address] [place] [address] documented as of this encounter Visit Diagnoses Diagnosis Type 2 diabetes mellitus without complication, unspecified whether half-way insulin use ([facility]) documented in this encounter Additional Health Concerns Assessment Noted Time PHQ-9 Depression Total Score: 3 10/04/19 23 2:21 PM EDT documented as of this encounter Care Teams Acting Teacher Relationship Specialty Start Date End Date Name, MD Ananda [address] [place] [address] PCP - General Family Medicine 06/01/15 documented as of this encounter
--- OUTSIDE RECORDS SUMMARY | 2024-07-02 07:43 | XMS_ITS | Encounter Summary ---
Author Organization [employer] Address [address] [facility] [address] 7t [place] [address] Care Team Providers Care Certified Medication Technician Name Role Phone Name, Ananda CRANDALL Primary Care Provider [phone] Reason for Visit * Reason Comments Med Refill Encounter Details Date Type Department Care Team ([facility] Contact Info) Description 04/25/2022 Refill [facility] MEDICINE [address] [place] [address] [phone] Name, MD Ananda [address] [place] [phone] Wheezing (Primary Dx) Social History Tobacco Use [...] Team ([facility] Contact Info) Description 07/08/2024 9:15 AM EDT Office Visit [facility] MEDICINE [address] [place] [address] [phone] Latrice Ibrahim MD [address] [place] [address] 9[address] 07/15/2024 10:45 AM EDT Office Visit [facility] MEDICINE [address] [place] [address] 17205 Name, MD Ananda [address] [place] [address] 28692 07/17/2024 11:15 AM EDT Office Visit [facility] OPTOMETRY [address] [place] [address] 301[address] Tarka, Natalie, OD 267 [place] [address] 07/21/2024 9:30 AM EDT Telemedicine [facility] MEDICINE [address] [place] [address] 56341 JamilahiaGeeta, PharmD 230 [place] [address] 08/05/2024 9:15 AM EDT Clinical Support [facility] MEDICINE [address] [place] [address] 19603 Sonali Stubbs, COREY [address] [place] [address] 12266 documented as of this encounter Visit Diagnoses Diagnosis Wheezing- Primary documented in this encounter Care Teams Certified Medication Technician Relationship Specialty Start Date End Date Name, MD Ananda [address] [place] [address] 60236 PCP - General Family Medicine 06/01/15 documented as of this encounter
--- OUTSIDE RECORDS SUMMARY | 2024-07-02 07:43 | XMS_ITS | Encounter Summary ---
Author Organization [employer] Address [address] [facility] [address] 7t [place] [address] Care Team Providers Care Redeye Gunner Name Role Phone Name, Ananda CRANDALL Primary Care Provider [phone] Encounter Details Date Type Department Care Team (Latest Contact Info) Description 01/06/2019 Abstract [facility] CONVERSIONS Dental, Provider, DDS Social History Tobacco [...] 9:15 AM EDT Office Visit [facility] MEDICINE [address] [place] [address] 8[address]74 Latrice Ibrahim MD [address] [place] [address] 95871 07/15/2024 10:45 AM EDT Office Visit [facility] MEDICINE [address] [place] [address] [phone] Grabiel, MD Ananda 230 [place] [address] 07/17/2024 11:15 AM EDT Office Visit [facility] OPTOMETRY 267 [place], [place] [phone] Natalie Davis, OD 267 [place] [address] 07/21/2024 9:30 AM EDT Telemedicine [address] [address] Geeta Dove PharmD 230 [place] [address] 08/05/2024 9:15 AM EDT Clinical Support [address] [address] Sonali Stubbs, RN [address] [place] [address] documented as of this encounter Visit Diagnoses Not on filedocumented in this encounter Care Teams Redeye Gunner Relationship Specialty Start Date End Date Name, MD Ananda [address] [place] [address] 23984 PCP - General Family Medicine 06/01/15 documented as of this encounter
--- OUTSIDE RECORDS SUMMARY | 2024-07-02 07:43 | XMS_ITS | Encounter Summary ---
Author Organization [employer] Address [address] [facility] [address] 7t [place] [address] Care Team Providers Care Tower Supervisor Name Role Phone Name, Ananda CRANDALL Primary Care Provider [phone] Encounter Details Date Type Department Care Team ([facility] st Contact Info) Description 03/28/[address] [facility] MEDICINE 230 [place], [place] [phone] Name, MD Ananda 230 [place] [address] Social History Tobacco Use Types Packs/Day Years [...] t he electric, gas, oil or water [employer] threatened to shut off services in your [...] 07/08/2024 9:15 AM EDT Office Visit [facility] MEDICINE [address] [place] [address] Latrice Ibrahim MD [address] [place] [address] 07/15/2024 10:45 AM EDT Office Visit [address] [address] Ananda Spain MD [address] [place] [address] 77[address] 07/17/2024 11:15 AM EDT Office Visit [facility] OPTOMETRY [address] [place] [address] 7[address] TarkaNatalie, OD [address] [place] [address] 9[address] 07/21/2024 9:30 AM EDT Telemedicine [facility] MEDICINE [address] [place] [address] 32979 Geeta Dove, PharmD [address] [place] [address] 08/05/2024 9:15 AM EDT Clinical Support [address] [address] Sonali Stubbs, COREY [address] [place] [address] 9[address]15 documented as of this encounter Visit Diagnoses Not on filedocumented in this encounter Additional Health Concerns Assessment Noted Time PHQ-9 Depression Total Score: 3 10/04/19 23 2:21 PM EDT documented as of this encounter Care Teams Tower Supervisor Relationship Specialty Start Date End Date Name, MD Ananda 230 [place] [address] PCP - General Family Medicine 06/01/15 documented as of this encounter
--- OUTSIDE RECORDS SUMMARY | 2024-07-02 07:43 | XMS_ITS | Encounter Summary ---
Author Organization [employer] Address [address] [facility] [address] 7t [place] [address] Care Team Providers Care Rail Assembler Name Role Phone Name, Ananda CRANDALL Primary Care Provider Reason for Visit * Reason Comments Med Refill Encounter Details Date Type Department Care Team ([facility] Contact Info) Description 02/28/2023 Refill [facility] 230 [place], [place] [phone] Name, MD Ananda 230 [place] [address] Pain of left leg Social History Tobacco [...] Description 07/08/2024 9:15 AM EDT Office Visit [facility] MEDICINE [address] [place] [address] 478[address] Latrice Ibrahim MD [address] [place] [address] 216[address] 07/15/2024 10:45 AM EDT Office Visit [address] [address] Ananda Spain MD [address] [place] [address] 07/17/2024 11:15 AM EDT Office Visit [facility] OPTOMETRY [address] [place] [address] 9[address] TarNatalie elizabeth, OD 267 [place] [address] 07/21/2024 9:30 AM EDT Telemedicine [facility] MEDICINE [address] [place] [address] Geeta Dove, PharmD [address] [place] [address] 08/05/2024 9:15 AM EDT Clinical Support [address] [address] Sonali Stubbs RN [address] [place] [address] 14182 documented as of this encounter Visit Diagnoses Diagnosis Pain of left leg documented in this encounter Additional Health Concerns Assessment Noted Time PHQ-9 Depression Total Score: 3 10/04/19 23 2:21 PM EDT documented as of this encounter Care Teams Rail Assembler Relationship Specialty Start Date End Date Name, MD Ananda 230 [place] [address] PCP - General Family Medicine 06/01/15 documented as of this encounter
--- OUTSIDE RECORDS SUMMARY | 2024-07-02 07:43 | XMS_ITS | Encounter Summary ---
Author Organization [employer] Address [address] [facility] [address] 7t [place] [address] Care Team Providers Care Block Placer Name Role Phone Name, Ananda CRANDALL Primary Care Provider [phone] Encounter Details Date Type Department Care Team ([facility] Contact Info) Description 02/14/2022 Abstract [facility] MEDICINE [address] [place] [address] ProviderDamari MD Social History Tobacco Use Types [...] Upcoming Encounters Date Type Department Care Team ([facility] Contact Info) Description 07/08/2024 9:15 AM EDT Office Visit [facility] MEDICINE [address] [place] [address] Latrice Ibrahim MD [address] [place] [address] 07/15/2024 10:45 AM EDT Office Visit [address] [address] Name, MD Ananda 230 [place] [address] 07/17/2024 11:15 AM EDT Office Visit [facility] OPTOMETRY 267 [place] [address] Natalie Davis, OD 267 [place] [address] 07/21/2024 9:30 AM EDT Telemedicine [facility] MEDICINE [address] [place] [address] Geeta Dove, LoretoD 230 [place] [address] 08/05/2024 9:15 AM EDT Clinical Support [facility] MEDICINE [address] [place] [address] Sonali Stubbs, COREY [address] [place] [address] 9[address]13 documented as of this encounter Visit Diagnoses Not on filedocumented in this encounter Care Teams Block Placer Relationship Specialty Start Date End Date Name, MD Ananda [address] [place] [address] 14182 PCP - General Family Medicine 06/01/15 documented as of this encounter
--- OUTSIDE RECORDS SUMMARY | 2024-07-02 07:43 | XMS_ITS | Encounter Summary ---
Author Organization [employer] Address [address] [facility] [address] 7t [place] [address] Care Team Providers Care Remelt Pan Tank Operator Name Role Phone Name, Ananda CRANDALL Primary Care Provider [phone] Reason for Visit * Reason Onset Date Comments Med Refill 07/01/2024 Encounter Details Date Type Department Care Team ([facility] st Contact Info) Description 07/01/2024 Refill [facility] MEDICINE 230 [place], [place] [phone] Sonali Stubbs, RN 230 [place] [address] Uncomplicated opioid dependence (CMS/HCC) Social History Tobacco [...] 9:15 AM EDT Office Visit [facility] MEDICINE [address] [place] [address] Latrice Ibrahim MD [address] [place] [address] 116[address] 07/15/2024 10:45 AM EDT Office Visit [address] [address] Ananda Spain MD [address] [place] [address] 8[address] 07/17/2024 11:15 AM EDT Office Visit [facility] OPTOMETRY [address] [place] [address] Natalie Davis, OD [address] [place] [address] 6[address] 07/21/2024 9:30 AM EDT Telemedicine [facility] MEDICINE [address] [place] [address] Geeta Dove, Donte [address] [place] [address] 08/05/2024 9:15 AM EDT Clinical Support [address] [address] Sonali Stubbs, COREY 230 [place] [address] documented as of this encounter Goals Goal Patient Goal Type Associated Problems Recent Progress Patient-Stated? Author Increase coping skills to promote long-term recovery and improve ability to perform daily activities General On track( 025 9:51 AM EDT) No Sonali Stubbs RN Reduce tobacco use (cigarettes, smokeless, etc) Tobacco Use No Sonali Stubbs RN documented as of this encounter Visit Diagnoses Diagnosis Uncomplicated opioid dependence (CMS/HCC) documented in this encounter Additional Health Concerns Assessment Noted Time PHQ-9 Depression Total Score: 10 024 9:15 AM EDT documented as of this encounter Care Teams Remelt Pan Tank Operator Relationship Specialty Start Date End Date Name, MD Ananda 230 [place] [address] PCP - General Family Medicine 06/01/15 documented as of this encounter
--- OUTSIDE RECORDS SUMMARY | 2024-07-02 07:43 | XMS_ITS | Encounter Summary ---
Author Organization [employer] Address [address] [facility] [address] 7t [place] [address] Care Team Providers Care Education Program Coordinator Name Role Phone Name, Ananda CRANDALL Primary Care Provider [phone] Encounter Details Date Type Department Care Team (Late Contact Info) Description 05/10/2022 Orders Only [facility] MEDICINE [address] [place] [address] [phone] Alis Zavala, COREY Uncomplicated opioid dependence ([facility]) Social History Tobacco Use Types Packs/Day [...] 07/08/2024 9:15 AM EDT Office Visit [facility] MEDICINE [address] [place] [address] [phone] Latrice Ibrahim MD [address] [place] [address] [phone] 07/15/2024 10:45 AM EDT Office Visit [facility] MEDICINE [address] [place] [address] 19119 Name, MD Ananda 230 [place] [address] 07/17/2024 11:15 AM EDT Office Visit [facility] OPTOMETRY [address] [place] [address] Natalie Davis, OD 267 [place] [address] 07/21/2024 9:30 AM EDT Telemedicine [facility] MEDICINE [address] [place] [address] Geeta Dove PharmD [address] [place] [address] 08/05/2024 9:15 AM EDT Clinical Support [address] [address] Sonali Stubbs, RN [address] [place] [address] 15743 documented as of this encounter Visit Diagnoses Diagnosis Uncomplicated opioid dependence (CMS/HCC) documented in this encounter Care Teams Education Program Coordinator Relationship Specialty Start Date End Date NameAnanda MD [address] [place] [address] PCP - General Family Medicine 06/01/15 documented as of this encounter
--- OUTSIDE RECORDS SUMMARY | 2024-07-02 07:43 | XMS_ITS | Encounter Summary ---
Author Organization [employer] Address [address] [facility] [address] 7t [place] [address] Care Team Providers Care Train Electronic Technician Name Role Phone Name, Ananda CRANDALL Primary Care Provider [phone] Encounter Details Date Type Department Care Team (Latest Contact Info) Description 01/09/2021 Abstract [facility] CONVERSIONS Dental, Provider, DDS Social [...] Description 07/08/2024 9:15 AM EDT Office Visit [facility] MEDICINE [address] [place] [address] Latrice Ibrahim MD [address] [place] [address] 07/15/2024 10:45 AM EDT Office Visit [facility] MEDICINE [address] [place] [address] [phone] Name, MD Ananda 230 [place] [address] 07/17/2024 11:15 AM EDT Office Visit [facility] OPTOMETRY 267 [place], [place] [phone] Natalie Davis, OD 267 [place] [address] 07/21/2024 9:30 AM EDT Telemedicine [address] [address] Geeta Dove, Donte 230 [place] [address] 08/05/2024 9:15 AM EDT Clinical Support [address] [address] Sonali Stubbs, RN [address] [place] [address] 18[address] documented as of this encounter Visit Diagnoses Not on filedocumented in this encounter Care Teams Train Electronic Technician Relationship Specialty Start Date End Date Name, MD Ananda [address] [place] [address]20 PCP - General Family Medicine 06/01/15 documented as of this encounter
--- OUTSIDE RECORDS SUMMARY | 2024-07-02 07:44 | XMS_ITS | Encounter Summary ---
Author Organization [employer] Address [address] [facility] [address] 7t [place] [address] Care Team Providers Care Gameplay Programmer Name Role Phone Name, Ananda CRANDALL Primary Care Provider [phone] Reason for Visit * Reason Comments Med Refill Encounter Details Date Type Department Care Team ([facility] st Contact Info) Description 09/19/2023 Refill [facility]EDS [address] [place], [place] [phone] Name, MD Ananda 230 [place] [address] Pain of left leg Social History Tobacco [...] Description 07/08/2024 9:15 AM EDT Office Visit [facility] MEDICINE [address] [place] [address]854 Latrice Ibrahim MD [address] [place] [address] 07/15/2024 10:45 AM EDT Office Visit [address] [address] Name, MD Ananda [address] [place] [address] 07/17/2024 11:15 AM EDT Office Visit [facility] OPTOMETRY [address] [place] [address] Natalie Davis, OD [address] [place] [address] 07/21/2024 9:30 AM EDT Telemedicine [facility] MEDICINE [address] [place] [address] Geeta Dove PharmD [address] [place] [address] 407[address] 08/05/2024 9:15 AM EDT Clinical Support [address] [address] Sonali Stubbs, RN 230 [place] [address] documented as of this encounter Visit Diagnoses Diagnosis Pain of left leg documented in this encounter Additional Health Concerns Assessment Noted Time PHQ-9 Depression Total Score: 10 024 9:15 AM EDT documented as of this encounter Care Teams Gameplay Programmer Relationship Specialty Start Date End Date Name, MD Ananda 230 [place] [address] PCP - General Family Medicine 06/01/15 documented as of this encounter
--- OUTSIDE RECORDS SUMMARY | 2024-07-02 07:44 | XMS_ITS | Encounter Summary ---
Author Organization [employer] Address [address] [facility] [address] 7t [place] [address] Care Team Providers Care Shellfish Processing Laborer Name Role Phone Name, Ananda CRANDALL Primary Care Provider [phone] Reason for Visit * Reason Comments Med Refill Encounter Details Date Type Department Care Team ([facility] Contact Info) Description 12/11/2023 Refill [facility] MEDICINE 230 [place], [place] [phone] Name, MD Ananda 230 [place] [address] Type 2 diabetes mellitus without complication, unspecified whether prison insulin use ([facility]) Social History Tobacco Use Types Packs/Day Years [...] Description 07/08/2024 9:15 AM EDT Office Visit [address] [address] Latrice Ibrahim MD [address] [place] [address] 07/15/2024 10:45 AM EDT Office Visit [address] [address] Ananda Spain MD [address] [place] [address] 07/17/2024 11:15 AM EDT Office Visit [facility] OPTOMETRY [address] [place] [address] Natalie Davis, OD [address] [place] [address] 07/21/2024 9:30 AM EDT Telemedicine [address] [address] Geeta Dove, Donte [address] [place] [address] 97[address] 08/05/2024 9:15 AM EDT Clinical Support [address] [address] Sonali Stubbs, RN 230 [place] [address] documented as of this encounter Visit Diagnoses Diagnosis Type 2 diabetes mellitus without complication, unspecified whether terminal gauger insulin use ([facility]) documented in this encounter Additional Health Concerns Assessment Noted Time PHQ-9 Depression Total Score: 10 024 9:15 AM EDT documented as of this encounter Care Teams Shellfish Processing Laborer Relationship Specialty Start Date End Date Name, MD Ananda 230 [place] [address] PCP - General Family Medicine 06/01/15 documented as of this encounter
--- OUTSIDE RECORDS SUMMARY | 2024-07-02 07:44 | XMS_ITS | Encounter Summary ---
Author Organization [employer] Address [address] [place] [address] 7t [place] [address] Care Team Providers Care Software Engineer Sales Name Role Phone Name, Ananda CRANDALL Primary Care Provider [phone] Encounter Details Date Type Department Care Team ([facility] Contact Info) Description 08/13/2022 Abstract [facility] MEDICINE [address] [place] [address] [phone] Name, MD Ananda [address] [place] [address] [phone] Social History Tobacco Use Types Packs/Day Years [...] Upcoming Encounters Date Type Department Care Team ([facility] Contact Info) Description 07/08/2024 9:15 AM EDT Office Visit [facility] MEDICINE [address] [place] [address] [phone] Latrice Ibrahim MD 230 [place], [place] [phone] 07/15/2024 10:45 AM EDT Office Visit [facility] MEDICINE [address] [place] [address] Name, MD Ananda [address] [place] [address] 07/17/2024 11:15 AM EDT Office Visit [facility] OPTOMETRY [address] [place] [address] Tarclara Natalie, OD 267 [place] [address] 07/21/2024 9:30 AM EDT Telemedicine [address] [address] Geeta Dove, PharmD [address] [place] [address] 08/05/2024 9:15 AM EDT Clinical Support [facility] MEDICINE [address] [place] [address] Sonali Stubbs, COREY [address] [place] [address] documented as of this encounter Procedures Procedure [...] on filedocumented in this encounter Care Teams Software Engineer Sales Relationship Specialty Start Date End Date Name, MD Ananda [address] [place] [address] PCP - General Family Medicine 06/01/15 documented as of this encounter
--- OUTSIDE RECORDS SUMMARY | 2024-07-02 07:44 | XMS_ITS | Encounter Summary ---
Author Organization [employer] Address [address] [facility] [address] 7t [place] [address] Care Team Providers Care Analytics Specialist Name Role Phone Name, Ananda CRANDALL Primary Care Provider [phone] Reason for Visit * Reason Onset Date Comments Durable Medical Equipment 06/08/2022 Encounter Details Date Type Department Care Team ([facility] st Contact Info) Description 06/08/2022 Telephone [facility] MEDICINE 230 [place], [place] [phone] Name, MD Ananda 230 [place] [address] Durable Medical Equipment Social History Tobacco Use [...] states unable to get a hold of guest services coordinator and would like to know if PCP can send script directly to [facility] . Please contact at [phone] * Telephone Encounter - Arleen Ramirez - 06/11/2022 11:28 AM EDT TC to patient and informed him to contact his long term care phlebotomist as a script for a recliner was emailed to her previously. Patient understood and agreed with plan. * Telephone Encounter - Darian Joiner - 06/08/2022 4:29 PM EDT Tc from pt requesting a script for a recliner chair to be send to [facility] please contact pt at [phone] documented in this encounter Plan of Treatment Upcoming Encounters Date Type Department Care Team (Late st Contact Info) Description 07/08/2024 9:15 AM EDT Office Visit [facility] MEDICINE [address] [place] [address] Latrice Ibrahim MD 230 [place] [address] 07/15/2024 10:45 AM EDT Office Visit [facility] MEDICINE [address] [place] [address] Name, MD Ananda 230 [place] [address] 07/17/2024 11:15 AM EDT Office Visit [facility] OPTOMETRY 267 [place] [address] Natalie Davis OD 267 [place] [address] 07/21/2024 9:30 AM EDT Telemedicine [facility] MEDICINE 230 [place] [address] Geeta Dove, PharmD 230 [place] [address] 08/05/2024 9:15 AM EDT Clinical Support [facility] MEDICINE 230 [place] [address] Sonali Stubbs, RN 230 [place] [address] documented as of this encounter Visit Diagnoses Not on filedocumented in this encounter Care Teams Analytics Specialist Relationship Specialty Start Date End Date Name, MD Ananda 230 [place] [address] PCP - General Family Medicine 06/01/15 documented as of this encounter
--- OUTSIDE RECORDS SUMMARY | 2024-07-02 07:44 | XMS_ITS | Clinical Summary ---
Author Organization [employer] Address [address] [place] [address] Care Team Providers Care Map Mounter Name Role Phone Name, Ananda CRANDALL Primary Care Provider [phone] Allergies No known active allergies Medications docusate sodium (Colace) 100 MG capsule Take 1 capsule by mouth at bed time. 021 Active glucose blood (LuxolaTouch Verio) test strip every 8 (eight) hours. [...] (CMS/HCC) 1 each 2 times daily. Call [facility] if consistently < 95% 1 each 023 Active Alcohol Swabs (Alcohol Prep) 70 % pads USE FOUR TIMES DAILY DIRECTED 023 Active clonazePAM (KlonoPIN) 1 MG tablet Take 1 mg by mouth 2 times daily. 023 Active Lancets (LuxolaTouch Delica Plus [id number]) [facility] [place], [place] TEST BLOOD SUGAR THREE TIMES DAILY 023 [...] Continuous Glucose Sensor (FreeStyle Kasey 2 Sensor) [facility] [place], [place] USE DIRECTED TO TEST BLOOD SUGAR 8 TIMES PER DAY 2 each Active Continuous Glucose Linux Server Engineer (FreeStyle Kasey 2 [place]) device Scan sensor every 8 hours 1 [...] ons:Chronic obstructive pulmonary disease, unspecified COPD type ([facility]) INHALE 2 PUFFS BY MOUTH [...] hyperglycemia, with long-term current use of insulin ([facility]) USE DIRECTED TO TEST BLOOD SUGAR THREE TIMES DAILY 100 strip 3 025 Active BD Pen Needle Pham U/F 32G X 4 MM miscIndications :Type 2 diabetes mellitus without complication, unspecified whether custodial insulin use ([facility]) USE DIRECTED FOUR TIMES DAILY 100 each 5 025 Active montelukast (Singulair) 10 MG tabletIndicatio ns:Seasonal allergic rhinitis, unspecified trigger Take 1 tablet (10 mg) by mouth at bedtime. 90 tablet 1 025 Active montelukast (Singulair) 10 MG tabletIndicatio ns:Seasonal allergic rhinitis, unspecified trigger TAKE 1 TABLET BY MOUTH EVERY DAY AT BEDTIME 90 tablet 1 024 2024 Discontinued Pentips 32G X 4 MM miscIndications :Type 2 diabetes mellitus without complication, unspecified whether custodial insulin use ([facility]) USE DIRECTED FOUR TIMES DAILY 100 each 5 024 2024 Discontinued Suboxone 8-2 MG SL filmIndications :Uncomplicated opioid dependence (CMS/HCC) Place 3 Film under the tongue Once per day for 28 days. 84 Film 025 2024 Discontinued(R eorder (will not trigger notification to Pharmacy)) Suboxone 8-2 MG SL filmIndications :Uncomplicated opioid dependence (CMS/HCC) Place 3 Film under the tongue Once per day for 28 days. 84 Film 025 2024 benzonatate (Tessalon Perles) 100 MG capsuleIndicati ons:Viral URI with cough Take 1 capsule (100 mg) by mouth if needed in the morning, at noon, and at bedtime for cough for up to 7 days. Do not crush or chew. 20 capsule 025 2024 montelukast (Singulair) 10 MG tabletIndicatio ns:Seasonal allergic rhinitis, unspecified trigger TAKE 1 TABLET BY MOUTH EVERY DAY AT BEDTIME 90 tablet 1 025 2024 Discontinued(R eorder (will not trigger notification to Pharmacy)) predniSONE (Deltasone) 20 MG tablet Take 2 tablets (40 mg) by mouth Once per day for 5 days. 10 tablet 025 2024 azithromycin (Zithromax) 250 MG tablet Take 2 tablets (500 mg) by mouth Once per day for 1 day, THEN 1 tablet (250 mg) Once per day for 4 days. 6 tablet 025 2024 Active Problems Problem Noted [...] Encounters Date Type Department Care Team Description 07/01/2024 Refill [facility] [address] [place] [address] Sonali Stubbs, RN Uncomplicated opioid dependence (CMS/HCC) 06/26/2024 11:00 AM EDT Office Visit [facility] [address] [place] [address] Ananda Spain MD COPD exacerbation ([facility]) (Primary Dx); Cough in adult patient; Seasonal allergic rhinitis, unspecified trigger 06/22/2024 Refill [facility] [address] [place] [phone] Ananda Spain MD Seasonal allergic rhinitis, unspecified trigger 06/19/2024 11:20 AM EDT Office Visit [facility] [address] [place] [phone] Luis Espinoza MD Viral URI with cough 06/19/2024 Travel 06/12/2024 Orders Only GENERIC EXTERNAL DATA DEPARTMENT Provider, Generic External Data 06/12/2024 Refill [facility] [address] [place] [phone] Ananda Spain MD Type 2 diabetes mellitus without complication, unspecified whether predatory animal exterminator insulin use ([facility]) 06/10/2024 9:30 AM EDT Clinical Support [facility] [address] [place] [phone] Sonali Stubbs, RN Opioid type dependence, continuous ([facility]) (Primary Dx) 06/10/2024 Telephone [facility] [address] [place] [address] Ananda Spain MD 06/10/2024 Travel 06/08/[address] [facility] [address] [place] [address] Ananda Spain MD Durable Medical Equipment 06/05/2024 Telephone [facility] [address] [place] [phone] Ananda Spain MD 06/03/2024 Orders Only [facility] [address] [place] [address] [phone] Ananda Spain MD 06/03/2024 Refill [facility] [address] [place] [address] [phone] Sonali Stubbs, RN Uncomplicated opioid dependence ([facility]) 06/02/2024 Telephone [facility] [address] [place] [address] [phone] Geeta Dove, PharmD 05/29/2024 Orders Only GENERIC EXTERNAL DATA DEPARTMENT Provider, Generic External Data 05/28/2024 Refill [facility] [address] [place] [address] [phone] Ananda Spain MD Type 2 diabetes mellitus with hyperglycemia, with long-term current use of insulin ([facility]) 05/27/2024 Telephone [facility] [address] [place] [address] [phone] Evelyn Reeves, COREY 05/21/2024 9:30 AM EDT Office Visit [address] [phone] So Lebron MD Chronic bronchitis, unspecified chronic bronchitis type ([facility]) (Primary Dx); Tobacco dependence 05/21/2024 Travel 05/20/2024 Telephone [facility] [address] [place] [phone] Ananda Spain MD Chart Prep 05/19/2024 Orders Only GENERIC EXTERNAL DATA DEPARTMENT Provider, Generic External Data 05/14/[address] [phone] Ananda Spain MD Appointment Request 05/13/2024 9:30 AM EDT Office Visit [address] [address] Latrice Ibrahim MD Uncomplicated opioid dependence ([facility]) (Primary Dx); Tobacco dependence 05/13/2024 Travel 05/06/2024 Refill [facility] [address] [place] [phone] Sonali Stubbs, COREY Uncomplicated opioid dependence ([facility]/HCC) 05/06/[address] [address] Ananda Spain MD No Show (Patient no show for sick on site ) 05/06/2024 Telephone [facility] [address] [place] [phone] Ananda Spain MD No Show 05/06/2024 Telephone [facility] [address] [place] [phone] Ananda Spain MD 04/30/[address] [facility] [address] [place] [address] nAanda Spain MD chartprep 04/23/2024 Telephone [facility] [address] [place] [address] 137[address] Ananda Spain MD 04/23/2024 Refill [facility] [address] [place] [phone] Ananda Spain MD Constipation, unspecified constipation type 04/16/2024 10:00 AM EST Office Visit [address] [phone] Ananda Spain MD Chronic obstructive pulmonary disease, unspecified COPD type ([facility]CC) (Primary Dx); COPD exacerbation (CMS/HCC); Hypoxia; Non-cardiac chest pain; Type 2 diabetes mellitus with hyperglycemia, with long-term current use of insulin ([facility]) 04/16/2024 Travel 04/15/2024 9:30 AM EST Clinical Support [address] [address] Sonali Stubbs, COREY Uncomplicated opioid dependence ([facility]/HCC) (Primary Dx) 04/15/2024 Travel 04/14/2024 Telephone [facility] [address] [place] [phone] Gerda Gutierrez MA chartprep 04/14/2024 Orders Only GENERIC EXTERNAL DATA DEPARTMENT Provider, Generic External Data 04/13/2024 11:00 AM EST Office Visit [facility] [address] [place] [phone] Breanna Das NP Cough in adult patient (Primary Dx); COPD with acute exacerbation ([facility]CC) 04/12/2024 Orders Only GENERIC EXTERNAL DATA DEPARTMENT Provider, Generic External Data 04/10/2024 Telephone [facility] [address] [place] [address] [phone] Kim Montez RN 2024 Refill [facility] [address] [place] [address] Sonali Stubbs, COREY Uncomplicated opioid dependence ([facility]/HCC) from Last 3 Months Immunizations Name Administration [...] Sign Reading Time Taken Comments Blood Pressure 126/88 06/26/2024 10:45 AM EDT Pulse 96 06/26/2024 10:45 AM EDT Temperature 36.9 ??C (98.4 ??F) 06/26/2024 10:45 AM E DT Respiratory Rate 19 06/26/2024 10:45 AM EDT Oxygen Saturation 96% 06/26/2024 10:45 AM EDT Inhaled Oxygen Concentration - - Weight 56.5 kg (124 lb 9.6 oz) 06/26/2024 10:45 AM EDT Height 167.6 cm (5' 6 ) 06/26/2024 10:45 AM EDT Body Mass Index 20.11 06/26/2024 10:45 AM EDT Plan of Treatment Upcoming Encounters Date Type Department Care Team (Late st Contact Info) Description 07/08/2024 9:15 AM EDT Office Visit [facility] [address] [place] [phone] Latrice Ibrahim MD [address] [place] [phone] 07/15/2024 10:45 AM EDT Office Visit [facility] [address] [place] [address] Name, MD Ananda [address] [place] [address] 07/17/2024 11:15 AM EDT Office Visit [facility] [address] [place] [address] Natalie Davis, OD [address] [place] [address] 07/21/2024 9:30 AM EDT Telemedicine [facility] [address] [place] [address] Geeta Dove [employer] [address] [place] [address] 08/05/2024 9:15 AM EDT Clinical Support [facility] [address] [place] [address] Sonali Stubbs, RN [address] [place] [address] Health Maintenance Due Date Last Done Comments [...] 08/27/2024 025, 04/16/2024, 02/28/2024, Additional history exists Lipid Panel 05/27/2025 05/27/2024, 05/02, 02/13/2022, Additional history exists Diabetes: Urine Protein Screening 05/29/2025 05/29/2024, 05/14/2023, 02/13/2022, Additional history exists Tobacco Screening 06/26/2025 06/26/2024 Eye Exam 03/05/2026 03/05/2024, 04/2024, 03/05/2024, Additional [...] smokeless, etc) Tobacco Use No Sonali Stubbs, stone engraver Procedure Name Priority Date/Time Associated Diagnosis Comments POCT COVID-19 AG RAO ID NOW Routine 06/26/2024 10:53 AM EDT Cough in adult patient POCT RAPID STREP A Routine 06/26/2024 10 :53 AM EDT Cough in adult patient POCT INFLUENZA A (ID NOW RAPID MOLECULAR) Routine 06/26/2024 10:53 AM EDT Cough in adult patient POCT INFLUENZA B (ID NOW RAPID MOLECULAR) Routine 06/26/2024 10:53 AM EDT Cough in adult patient POCT RAPID COVID ANTIGEN Routine 06/19/2024 10:57 [...] hyperglycemia, with long-term current use of insulin ([facility]) Chronic obstructive pulmonary disease, unspecified COPD type ([facility]) COMPREHENSIVE METABOLIC PANEL Routine 05/27/2024 8:40 AM EDT Type 2 diabetes mellitus with hyperglycemia, with long-term current use of insulin ([facility]) Chronic obstructive pulmonary disease, unspecified COPD type ([facility]) CBC WITH AUTO DIFFERENTIAL Routine 05/27/2024 8:40 AM EDT Type 2 diabetes mellitus with hyperglycemia, with long-term current use of insulin ([facility]) Chronic obstructive pulmonary disease, unspecified COPD type ([facility]) GLUCOSE, WHOLE BLOOD Routine 05/19/2024 8:54 AM EDT POCT FARA-14 URINE DRUG SCREEN Routine 05/13/2024 9:43 AM EDT Uncomplicated opioid dependence ([facility]) POCT GLYCATED HEMOGLOBIN, TOTAL Routine 04/16/2024 10:24 AM EST Type 2 diabetes mellitus with hyperglycemia, with long-term current use of insulin ([facility]) POCT GLUCOSE Routine 04/16/2024 10:21 AM EST Type 2 diabetes mellitus with hyperglycemia, with long-term current use of insulin ([facility]) POCT FARA-14 URINE DRUG SCREEN Routine 04/15/2024 9:24 AM EST Uncomplicated opioid dependence ([facility]) GLUCOSE, WHOLE BLOOD Routine 04/14/2024 9:22 AM [...] QL NAAT Routine 04/12/2024 2:06 PM EST HEPATITIS C AB W/REFL TO HCV RNA, QN, PCR Routine 03/29/2023 9:12 AM EST HIV 1/2 ANTIGEN/ANTIBODY, FOURTH GENERATION W/RFL Routine 03/29/2023 9:12 AM EST HM COLONOSCOPY Routine 08/16/2015 1:52 PM EDT from Last 3 Months or Most Recently Relevant to Health Maintenance Results * Influenza B (ID NOW Rapid Molecular) (06/26/2024 10:53 AM EDT) Only the most recent of3 resultswithin the time period is included. Influenza B Negative Negative, Indeterminate [facility] Swab 06/26/2024 10:5 3 AM EDT Ananda Spain MD POINT OF CARE TEST ENTER/EDIT OR DERABLES Final Result [facility] [address] [place] [phone] * Influenza A (ID NOW Rapid Molecular) (06/26/2024 10:53 AM EDT) Only the most recent of3 resultswithin the time period is included. [facility] Influenza A Negative Negative, Indeterminate [facility] Swab 06/26/2024 10:5 3 AM EDT us Ananda Spain MD POINT OF CARE TEST ENTER/EDIT OR DERABLES Final Result Performing Organization Address City/[facility]/ZIP Co de Phone Number [facility] [address] [place] [phone] * POCT COVID-19 Ag Rao ID NOW (06/26/2024 10:53 AM EDT) [facility] Coronavirus Antigen PCR Negative Negative, Indeterminate, None Detected, Invalid, Specimen unsatisfactory for evaluation, Weakly Positive Swab 06/26/2024 10:5 3 AM EDT us Ananda Spain MD POINT OF CARE TEST ENTER/EDIT OR DERABLES Final Result * POCT rapid strep A manually resulted (06/26/2024 10:53 AM EDT) [facility] Rapid Strep A Screen Negative Negative, None Detected Swab 06/26/2024 10:5 3 AM EDT us Ananda Spain MD POINT OF CARE TEST ENTER/EDIT OR DERABLES Final Result * POCT Rapid COVID Ag (06/19/2024 10:57 AM EDT) Only the most recent of2 resultswithin the time period is included. [facility] Rapid COVID Ag Negative Swab 06/19/2024 10:5 7 AM EDT us Luis Espinoza MD POINT OF CARE TEST ENTER/EDIT OR DERABLES Final Result * (ABNORMAL) Glucose, Whole Blood (06/12/2024 10:49 AM EDT) Only the most recent of4 resultswithin the time period is included. Glucose, Whole Blood 175(H) 60 - 115 mg/dL [facility] Comment:METER #: [id number] Testing performed in the Endocrinology Department [address] , [address], [facility]. 06/12/2024 10:4 9 AM EDT 06/12/2024 10:57 AM EDT Generic External Data Provider LAB BLOOD ORDERAB LES Final Result Performing Organization Address City/State/[facility] Co de Phone Number [facility] [address] [place] [phone] * POCT FARA-14 Urine Drug Screen [...] 8:43 AM EDT) Creatinine, Urine 126.68 mg/dL [facility] Microalbumin Urine 15.0 mg/L [facility] Microalbum Creatinine Ratio Ur 11.8 <30 ug/mg cr [facility] Comment:Albumin/Creatinine R atio Reference Ranges: Normal: < 30 ug/mg creatinine Microalbuminuria: 30 - 300 ug/mg creatinineClinical Albuminuria: > 300 ug/mg creatinine 05/29/2024 8:43 AM EDT 05/29/2024 9:05 AM EDT us Generic External Data Provider LAB URINE ORDERAB LES Final Result [facility] [address] [place] [address] [phone] * (ABNORMAL) CBC auto differential (05/27/2024 8:40 AM EDT) Only the most recent of2 resultswithin the time period is included. White Blood Count 8.3 4.8 - 10.8 X10*3/uL [facility] Red Blood Count 4.66 4.60 - 5.80 X10*6/uL [facility] Hemoglobin 13.7(L) 14.0 - 18.0 g/dl [facility] Hematocrit 41.9(L) 42.0 - 52.0 % [facility] Mean Corpuscular Volume 89.9 80.0 - 98.0 fL [facility] Mean Corpuscular Hemoglobin 29.4 27.0 - 33.0 pg [facility] Mean Corpuscular HGB Conc 32.7 31.0 - 36.0 g/dl [facility] Red Cell Distribution Width 14.6 11.0 - 16.0 % [facility] Platelet Count 270 160 - 400 X10*3/uL [facility] Mean Platelet Volume 10.8 9.4 - 12.4 fL [facility] Neutrophils Percent Auto 38.6(L) 45 - 73 % [facility] Imm Gran Pct Auto 0.2 0.0 - 0.4 % [facility] Lymphocytes Percent Auto 43.0(H) 20 - 40 % [facility] Monocytes Percent Auto 10.4 2 - 11 % [facility] Eosinophils Percent Auto 6.6(H) 0 - 4 % [facility] Basophils Percent Auto 1.2 0 - 2 % [facility] NRBC Pct Auto 0.0 0.0 - 0.2 /100WBC [facility] Neutrophils Absolute Auto 3.2 2.0 - 8.3 x10*3/uL [facility] Imm Gran Abs Auto 0.02 0.00 - 0.03 X10*3/uL [facility] Lymphocytes Absolute Auto 3.6 1.2 - 4.9 X10*3/uL [facility] Monocytes Absolute Auto 0.9 0.1 - 1.2 X10*3/uL [facility] Eosinophils Absolute Auto 0.6(H) 0.0 - 0.4 X10*3/uL [facility] Basophils Absolute Auto 0.1 0.0 - 0.2 X10*3/uL [facility] NRBC Abs Auto 0.000 0.0 - 0.012 X10*3/uL [facility] Blood Venous blood specimen / Unknown 05/27/2024 8:40 AM EDT 05/27/2024 8:40 AM EDT us Ananda Spain MD LAB BLOOD ORDERABLES Final Resul t Performing Organization Address [facility] Co de Phone Number [facility] [address] [place] [phone] * Hepatitis A Antibody, Total (05/27/2024 8:40 AM EDT) Hepatitis A Antibody IgG REACTIVE Nonreactive [facility] Comment:The presence of IgG anti-HAV implies past HAV infection(recent or distant) or vaccination against HAV. Blood Venous blood specimen / Unknown 05/27/2024 8:40 AM EDT 05/27/2024 8:40 AM EDT us Ananda Spain MD LAB BLOOD ORDERABLES Final Resul t Performing Organization Address [facility]/ZIP Co de Phone Number [facility] [address] [place] [phone] * Hepatitis B surface antigen, EIA (05/27/2024 8:40 AM EDT) Hepatitis B Surface Ag Negative Negative [facility] Blood Venous blood specimen / Unknown 05/27/2024 8:40 AM EDT 05/27/2024 8:40 AM EDT us Ananda Spain MD LAB BLOOD ORDERABLES Final Resul t Performing Organization Address [facility] de Phone Number [facility] [address] [place] [phone] * Hepatitis B Surface Antibody, Qualitative (05/27/2024 8:40 AM EDT) Pathologist [facility] ~Hepatitis B Surface Antibody REACTIVE Nonreactive [facility] Comment:REACTIVE: > 11.99 mI U/mL Blood Venous blood specimen / Unknown 05/27/2024 8:40 AM EDT 05/27/2024 8:40 AM EDT us Ananda Spain MD LAB BLOOD ORDERABLES Final Resul t Performing Organization Address [facility] de Phone Number [facility] [address] [place] [phone] * (ABNORMAL) Hemoglobin A1c (05/27/2024 8:40 AM EDT) Pathologist [facility] Hemoglobin A1c 8.3(H) <6.0 % [facility] Comment:Hemoglobin A1C Refer ence Range Adults: 4.8 - 6.0 % Non diabetic: < 6.0 % Goal: < 7.0 %Additional Action Suggested: > 8.0 %Note: Hemoglobin A1c results are invalid for patients with abnormal amounts of HbF. Blood transfusions may impact the HbA1c concentration in the patient sample. Estimated Average Glucose 192 mg/dL [facility] Comment:eAG = Estimated ave rage glucose which is %A1C expressed asaverage glucose, using the formula of the O0K-HfcusjxHfsuodd Glucose study (ADAG), Diabetes Care, Vol.31,#8,2007 Blood Venous blood specimen / Unknown 05/27/2024 8:40 AM EDT 05/27/2024 8:40 AM EDT us Ananda Spain MD LAB BLOOD ORDERABLES Final Resul t Performing Organization Address [facility] de Phone Number [facility] [address] [place] [phone] * (ABNORMAL) Lipid Panel, Standard (05/27/2024 8:40 AM EDT) Triglycerides 73 <150 mg/dL [facility] Comment:Desirable Triglyceri de: less than 150 mg/dLBorderline High Triglyceride 150-199 mg/dLHigh Triglyceride: 200-499 mg/dLVery High Triglyceride: greater than or equal to 5OO mg/dL Cholesterol 221(H) <200 mg/dL [facility] Comment:Desirable Cholestero l: less than 200 mg/dLBorderline High Cholesterol: 200-239 mg/dLHigh Cholesterol: greater than 239 mg/dL LDL Cholesterol Calculated 75 <100 mg/dL [facility] Comment:Desirable LDL: less than 100 mg/dLNear Optimal/Above Optimal LDL: 110- 129 mg/dLBorderline High LDL: 130-159 mg/dLHigh LDL: 160-189 mg/dLVery High LDL: greater than or equal to 190 mg/dL HDL Cholesterol 132 >40 mg/dL [facility] Comment:Desirable HDL: great er than 40 mg/dL Note: This HDL assay may give artificially low results in patients with liver disease. Blood Venous blood specimen / Unknown 05/27/2024 8:40 AM EDT 05/27/2024 8:40 AM EDT us Ananda Spain MD LAB BLOOD ORDERABLES Final Resul t Performing Organization Address [facility] Co de Phone Number [facility] [address] [place] [phone] * (ABNORMAL) Comprehensive Metabolic Panel (05/27/2024 8:40 AM EDT) Only the most recent of2 resultswithin the time period is included. Sodium 146(H) 135 - 145 mmol/L [facility] Potassium 3.6 3.3 - 5.1 mmol/L [facility] Chloride 109(H) 96 - 108 mmol/L [facility] Carbon Dioxide 30(H) 22 - 29 mmol/L [facility] Anion Gap 11(L) 12 - 20 [facility] Urea Nitrogen (BUN) 14 9 - 16 mg/dL [facility] Creatinine, Serum 0.73 0.5 - 1.4 mg/dL [facility] Estimated Glomerular Filt Rate >60 [facility] Comment:Chronic Kidney Disea se: Estimated GFR < 60 mL/min/[id number] Kidney Disease: Estimated GFR < 15 mL/min/1.73m2 Glucose 46(LL) 60 - 115 mg/dL [facility] Comment:Critical value for G ELENI: Results called to and read backby: BOZENA Paige Person calling: NAYLA Date: 05-27-24 Time:1035 Calcium 10.2 8.4 - 10.2 mg/dL [facility] Bilirubin, Total 1.3(H) 0.0 - 1.0 mg/dL [facility] Aspartate Amino Transferase 38(H) 5 - 37 U/L [facility] Alanine Aminotransferase 28 0 - 40 U/L [facility] Total Protein 7.3 6.5 - 8.0 g/dL [facility] Albumin Level 4.7 3.5 - 5.0 g/dL [facility] Alkaline Phosphatase 55 39 - 117 U/L [facility] Blood Venous blood specimen / Unknown 05/27/2024 8:40 AM EDT 05/27/2024 8:40 AM EDT us Ananda Spain MD LAB BLOOD ORDERABLES Final Resul t [facility] [address] [place] [phone] * (ABNORMAL) POCT HGB A1C (04/16/2024 10:24 AM EST) Hemoglobin A1C 8.8(A) 4.0 - 6.0 % QC Media Lot # [id number] Lot# Expiration Date ,026 Blood 04/16/2024 10:2 4 AM EST Ananda Name POINT OF CARE TEST ENTER/EDIT OR DERABLES Final Result * (ABNORMAL) POCT Glucose (04/16/2024 10:21 AM EST) Pathologist [facility] Glucose Blood, POC 229(A) 60 - 200 mg/dL QC Media Lot # [id number] Lot# Expiration Date , Blood Capillary blood specimen / Unknown 04/16/2024 10:21 AM EST Ananda Name POINT OF CARE TEST ENTER/EDIT OR DERABLES Final Result * XR Chest 2 Views (04/12/2024 3:17 PM EST) Anatomical Region Laterality Modality Chest Radiographic Altagracia ging 04/12/2024 3:17 PM EST Narrative 04/12/2024 3:18 PM EST ? [facility] ?[address] ?[place] [address] ?XRay Report ? Signed ? Patient: Huebrt Cruz ?MR#: ?? [id number] ? : 1965 ?Acct:[id number] ? Age/Sex: 59 / M ?ADM Date: 04/12/24 ? Loc: HO.ED ? Attending Dr: ? Ordering Physician: Pebbles Rooney NECKTIE MAKER ?? Date of Service: 04/12/24 ?? Procedure(s): XR chest 2V ?? Accession Number(s): [id number] ? cc: Pebbles Rooney CNP; Name,Ananda CRANDALL [...] MD in OV> ? 04/12/241517 ? DD/ 1517 ? TD/TT: 04/12/24 1517 ? Tank Processor: ? Procedure Note Donmustaphater, Image - 04/12/[address] [address] XRay Report Signed Patient: Hubert Cruz MMR#: [id number] : 1965Acct:[id number] Age/Sex: 59 / MADM Date: 04/12/24 Loc: HO.ED Attending Dr: Ordering Physician: Pebbles Rooney CNP Date of Service: 04/12/24 Procedure(s): XR chest 2V Accession Number(s): [id number] cc: Pebbles Rooney CNP; Name,Ananda CRANDALL CLINICAL [...] in OV> 04/12/24 1518 DD/ 1517 TD/TT: 04/12/241516 Tank Processor: [facility] External Provider IMG XR PROCEDURES Edited Result - Final * High Sensitivity Troponin I (04/12/2024 2:06 PM EST) TROPONIN I HIGH SENSITIVITY 6.3 <3.5 - 35.0 ng/L [facility] Comment:The Rao high sens itivity Troponin-I results should beused in conjunction with other diagnostic information suchas ECG, clinical observations and information, and patientsymptoms to aid in the diagnosis of ME. 04/12/2024 2:06 PM EST 04/12/2024 2:09 PM EST Generic External Data Provider LAB BLOOD ORDERAB LES Final Result Performing Organization Address [facility] Co de Phone Number [facility] [address] [place] [phone] * SARS-CoV-2 RNA, Influenza A/B, and RSV RNA, Ql NAAT (04/12/2024 2:06 PM EST) [facility] Influenza A PCR NEGATIVE Negative [facility] Influenza B PCR NEGATIVE Negative [facility] Resp Syncy Virus RNA Qual PCR NEGATIVE Negative [facility] SARS COV2 PCR NEGATIVE Negative [facility] Comment:All test results mus [...] use by authorized laboratories.Testing performed on the [employer] GeneXpert utilizingreal-time RT-PCR.All SARS CoV2 and positive influenza A/B results arereported to [facility]. 04/12/2024 2:06 PM EST 04/12/2024 2:09 PM EST Generic External Data Provider LAB MICROBIOLOGY - GENERAL ORDERABLES Final Result Performing Organization Address [facility] Co de Phone Number [facility] [address] [place] [phone] * Prothrombin Time-INR (04/12/2024 2:06 PM EST) [facility] Prothrombin Time 11.3 10.9 - 12.4 SEC [facility] INTERNATIONAL NORM RATIO 1.0 0.9 - 1.1 [facility] Comment:INTERNATIONAL NORMAL IZED RATIO (INR) [...] ORDERAB LES Final Result Performing Organization Address [facility] Co de Phone Number [facility] [address] [place] [phone] * B Type Natriuretic Peptide (BNP) (04/12/2024 2:06 PM EST) [facility] B Type Natriuretic Peptide 11 <100 pg/mL [facility] Comment:For those patients w ho are being treated with Natrecor(nesiritide, recombinant BNP), BNP testing should beperformed at least two hours post treatment in order toensure that only endogenous levels of BNP are detected. 04/12/2024 2:06 PM EST 04/12/2024 2:09 PM EST Generic External Data Provider LAB BLOOD ORDERAB LES Final Result Performing Organization Address [facility] Co de Phone Number [facility] [address] [place] [phone] * Magnesium (04/12/2024 2:06 PM EST) [facility] Magnesium 1.9 1.6 - 2.6 mg/dL [facility] 04/12/2024 2:06 PM EST 04/12/2024 2:09 PM EST us Generic External Data Provider LAB BLOOD ORDERAB LES Final Result Performing Organization Address [facility]/ZIP Co de Phone Number [facility] [address] [place] [phone] * (ABNORMAL) Hepatitis C Antibody with Reflex to HCV, RNA, Quantitative, Real- Time PCR (03/29/2023 9:12 AM EST) Hepatitis C Antibody Reactive( A) Nonreactive [facility] Comment:Presumptive evidence of antibodies to HCV. 03/29/2023 9:12 AM EST 03/29/2023 11:11 AM EST us Latrice Ibrahim MD LAB BLOOD ORDERABLES Final Resul t Performing Organization Address [facility] Co de Phone Number [facility] [address] [place] [phone] * HIV-1/2 Antigen and Antibodies, Fourth Generation, with Reflexes (03/29/2023 9:12 AM EST) HIV AB/AG Nonreactive Nonreactive [facility] Comment:HIV-1 p24 Ag and/or HIV-1/HIV-2 Ab not detected.A test result that is nonreactive does not exclude thepossibility of exposure to or infection with HIV-1 and/orHIV-2. Nonreactive results in this assay for individualswith prior exposure to HIV-1 and/or HIV-2 may be due toantigen and antibody levels that are below the limit ofdetection of this assay.The [employer] HIV Ag/Ab Combo assay result andsupplemental assay results should be interpreted inconjunction with the patient's clinical presentation,history and other laboratory results. If the results areinconsistent with clinical evidence, additional testing issuggested to confirm the result. 03/29/2023 9:12 AM EST 03/29/2023 11:11 AM EST us Latrice Sakurai MD LAB BLOOD ORDERABLES Final Resul t [facility] [address] [place] [phone] * Hm Colonoscopy (08/16/2015 1:52 PM EDT) Colonoscopy Normal Normal Narrative Gloria Álvarez - 08/16/2015 1:52 PM EDT Recommended 10 year follow up us Historical Provider HEALTH MAINTENANCE Final Result from Last 3 Months or Most Recently Relevant to Health Maintenance Insurance CCA ONE CARE < 65 CCA ONE CARE < 65 Care Teams Map Mounter Relationship Specialty Start Date End Date Name, MD Ananda [address] [place] [address] PCP - General Family Medicine 06/01/15
--- OUTSIDE RECORDS SUMMARY | 2024-07-02 07:44 | XMS_ITS | Encounter Summary ---
Author Organization [employer] Address [address] [place] [address] Care Team Providers Care Executive Recruiter Name Role Phone Name, Ananda CRANDALL Primary Care Provider [phone] Reason for Visit * Reason Comments Med Refill Encounter Details Date Type Department Care Team ([facility] Contact Info) Description 06/07/2022 Refill [facility] [address] [place], [place] [phone] Sebastián Graves MD [address] [place], [place] [phone] Pain of left leg Social History Tobacco [...] Upcoming Encounters Date Type Department Care Team ([facility] Contact Info) Description 07/08/2024 9:15 AM EDT Office Visit [facility] [address] [place] [address] Latrice Ibrahim MD [address] [place] [address] 07/15/2024 10:45 AM EDT Office Visit [facility] [address] [place] [address] Name, MD Ananda [address] [place] [address] 07/17/2024 11:15 AM EDT Office Visit [facility] OPTOMETRY [address] [place] [address] Tarka, Natalie, OD [address] [place] [address] 07/21/2024 9:30 AM EDT Telemedicine [facility] [address] [place] [address] Geeta Dove, PharmD [address] [place] [address] 08/05/2024 9:15 AM EDT Clinical Support [facility] [address] [place] [address] Sonali Stubbs, COREY [address] [place] [address] documented as of this encounter Visit Diagnoses Diagnosis Pain of left leg documented in this encounter Care Teams Executive Recruiter Relationship Specialty Start Date End Date Name, MD Ananda [address] [place] [address] PCP - General Family Medicine 06/01/15 documented as of this encounter
--- OUTSIDE RECORDS SUMMARY | 2024-07-02 07:44 | XMS_ITS | Encounter Summary ---
Author Organization [employer] Address [address] [place] [address] Care Team Providers Care Industrial Electrical Engineer Name Role Phone Name, Ananda CRANDALL Primary Care Provider [phone] Reason for Visit * Reason Onset Date Comments ER Follow-up 09/26/2022 Encounter Details Date Type Department Care Team ([facility] st Contact Info) Description 09/26/2022 Telephone [facility] [address] [place], [place] [phone] Name, MD Ananda [address] [place] [address] ER Follow-up Social History Tobacco Use Types [...] to pt. Through pacific interpreters id - [id number] for below message, pt. Has surgery [place] [facility] for non - pressure chronic ulcer of [...] in case of any new or worseningsymptoms. [facility] hours are reviewed. * Telephone Encounter - Hawa Morales - 10/01/2022 9:35 AM EDT Tc from pt returning call regarding message below. Please contact pt at [phone] (burkinan speaker) * Telephone Encounter - Em Leblanc RN - 09/27/2022 3:29 PM EDT T/C to pt. On [phone] through [facility] id - [id number] for status check and to schedule follow up apt. No answer. LVM to call back on [phone]. * Telephone Encounter - Netta Alvares - 09/26/2022 11:04 AM EDT Tc from pt calling to advise PCP of an ER visit to [facility] on 09/24/22 for surgery on the left leg. Pt advised will forward to team nurse for f/u. Please contact pt at [phone] (Egyptian) documented in this encounter Plan of Treatment Upcoming Encounters Date Type Department Care Team ([facility] st Contact Info) Description 07/08/2024 9:15 AM EDT Office Visit [facility] [address] [place] [address] Latrice Ibrahim MD [address] [place] [address] 07/15/2024 10:45 AM EDT Office Visit [address] [address] Name, MD Ananda [address] [place] [address] 07/17/2024 11:15 AM EDT Office Visit [facility] OPTOMETRY [address] [place] [address] Natalie Davis, OD [address] [place] [address] 07/21/2024 9:30 AM EDT Telemedicine [facility] [address] [place] [address] Geeta Dove, PharmD [address] [place] [address] 08/05/2024 9:15 AM EDT Clinical Support [address] [address] Sonali Stubbs, RN [address] [place] [address] documented as of this encounter Visit Diagnoses Not on filedocumented in this encounter Care Teams Industrial Electrical Engineer Relationship Specialty Start Date End Date NameAnanda MD [address] [place] [address] PCP - General Family Medicine 06/01/15 documented as of this encounter
--- OUTSIDE RECORDS SUMMARY | 2024-07-02 07:44 | XMS_ITS | Data Portability ---
Author Organization [employer] [place] [facility] Address [address] [place] [phone] Care Team Providers Care Chest Painting Leader Name Role Phone HIM CCA OTHER Assessment Encounter Date Assessment Date Assessment LastModified by Organization Details LastModified Time 04/23/2024 04/23/2024 I have reviewed and agree with the assessment and plan as documented by the washroom cleaner. I provided real-time medical direction for this encounter and was immediately available to provide additional phone-based assistance as needed. History as noted in EMR and by washroom cleaner. I would add / emphasize: Patient seen [...] this. Patient was in agreement transported to [facility] subsequently. pallfather Not available 04/24/2024 14:02:36 Plan of Treatment Reminders Order Date Submit Date Provider Last Modified By Organization Details Last Modified Time Details Appointments None recorded. Lab rapid SARS CoV 2 Ag, QL [place], respiratory specimen [address], [id number] 5 14:47:38 rapid flu (A+B) [address], [phone] 5 14:47:39 Referral None recorded. Procedures None [...] SNOMED-CT Code Diagnosis ICD10 Code Diagnosis Note [id number] Dillon Galeano MD Main - [facility] [address] [place] [phone] 04/23/2024 18:36:39 04/24/2024 20:56:44 Hypoxemia [id number] R09.02 Health Concerns Section Related Observation LastModified by Organization Detai ls LastModified Time None Recorded Concern Status LastModified by Organization Details LastModified Time None Recorded Advance Directives Directive None Recorded Payers Encounter Date Sequence Insurance Name Policy Number Policy Tomlin Covered Member ID Tomlin Member ID Guarantor Name 04/23/2024 1 [facility] - DOS ON OR AFTER 2022 - DUAL ELIGIBLE - HALFWAY OPTIONS AND ONE CARE (MEDICARE REPLACEMENT/ADV ANTAGE - HMO) Hubert Rios [id number] Hubert Rios Notes Date Note Type Note [...] does not report any new symptoms- [place] Industrial Cafeteria Manager Organization Information for [employer] [employer] Business Legal Name: [employer]? Address: [address] [place] [address], [place] [address], Small Products Ii Assembler: [employer] VELEZ No.: [id number] Industrial Cafeteria Manager POC Test Results from [facility] Rapid COVID antigen (18:34:09) COVID: - Attachments uploaded as part of this test result can be found under Documents section. Rapid influenza antigen (18:34:10) Flu: - Attachments uploaded as part of this test result can be found under Documents section. .................. .................. .................. .................. .................. .................. .................. ............... Industrial Cafeteria Manager Note From [facility]: Dispatched to above [...] to low 80s, HR increased to 115-120. [facility] contacted, advised of patient complaints, exam findings and test results. [facility] recommends transport to ER for further evaluation due to concerns for PE. Patient agrees with this plan. 911 called, [facility] and [facility] responded. Verbal report given to [facility] Industrial Cafeteria Manager, took over patient care, will transport to [facility]. Sc8 clear. EOR. .................. .................. .................. .................. .................. .................. .................. ............... [facility] Consulted: Dillon Galeano .................. .................. .................. .................. .................. .................. .................. ............... Disposition: Fulfilled Dillon Galeano MD [address] [facility], [place], [address], [employer] 04/24/2024 14:02:45
--- OUTSIDE RECORDS SUMMARY | 2024-07-02 07:44 | XMS_ITS | Encounter Summary ---
Author Organization [employer] Address [address] [place] [address] Care Team Providers Care Middle School Sports Coach Name Role Phone Name, Ananda CRANDALL Primary Care Provider [phone] Reason for Visit * Reason Onset Date Comments Durable Medical Equipment 09/18/2022 Encounter Details Date Type Department Care Team ([facility] st Contact Info) Description 09/18/2022 Telephone [facility] [address] [place], [place] [phone] Name, MD Ananda [address] [place] [address] Durable Medical Equipment Social History Tobacco Use [...] 09/21/2022 1:49 PM EDT Incoming call from [facility] PT regarding message below. [facility] PT states they have no record of pt ever going to their offices and getting PT. Unsure what next steps should be at this point. * Telephone Encounter - Christy Finn RN - 09/21/2022 1:39 PM EDT TC X1 to [facility] PT [phone] regarding message below. LVM to return call to nurses. * Telephone Encounter - Lauren Walsh - 09/20/2022 3:14 PM EDT Tc from patient returning call back, regarding message below. Patient states he's going to PT in [facility]. [address] [place] [address] [place] [address] Dr. Mcdaniel. * Telephone Encounter - Christy [...] 9:15 AM EDT Office Visit [facility] [address] [place] [address] Latrice Ibrahim MD [address] [place] [address] 07/15/2024 10:45 AM EDT Office Visit [facility] MEDICINE [address] [place] [address] Name, MD Ananda [address] [place] [address] 07/17/2024 11:15 AM EDT Office Visit [facility] OPTOMETRY [address] [place] [address] Tarka Natalie, OD [address] [place] [address] 07/21/2024 9:30 AM EDT Telemedicine [facility] MEDICINE [address] [place] [address] JamilahiaGeeta, PharmD [address] [place] [address] 08/05/2024 9:15 AM EDT Clinical Support [facility] [address] [place] [address] Sonali Stubbs, COREY [address] [place] [address] documented as of this encounter Visit Diagnoses Not on filedocumented in this encounter Care Teams Middle School Sports Coach Relationship Specialty Start Date End Date Name, MD Ananda [address] [place] [address] PCP - General Family Medicine 06/01/15 documented as of this encounter
--- OUTSIDE RECORDS SUMMARY | 2024-07-02 07:44 | XMS_ITS | Encounter Summary ---
Author Organization [employer] Address [address] [place] [address] Care Team Providers Care Heel Lift Gouger Name Role Phone Name, Ananda CRANDALL Primary Care Provider [phone] Reason for Visit * Reason Onset Date Comments Appointment 09/06/2022 Encounter Details Date Type Department Care Team ([facility] Contact Info) Description 09/06/2022 Telephone [facility] [address] [place], [place] [phone] Kelvin Haque, LENNY [address] [place] [address] Appointment Social History Tobacco Use Types Packs/Day [...] Description 07/08/2024 9:15 AM EDT Office Visit [facility] MED[facility]INE [address] [place] [address] Latrice Ibrahim MD [address] [place] [address] 07/15/2024 10:45 AM EDT Office Visit [address] [address] Name, MD Ananda [address] [place] [address] 07/17/2024 11:15 AM EDT Office Visit [facility] OPTOMETRY [address] [place] [address] Tarka, Natalie, OD [address] [place] [address] 07/21/2024 9:30 AM EDT Telemedicine [address] [address] Geeta Dove, PharmD [address] [place] [address] 08/05/2024 9:15 AM EDT Clinical Support [address] [address] Sonali Stubbs, COREY [address] [place] [address] documented as of this encounter Visit Diagnoses Not on filedocumented in this encounter Care Teams Heel Lift Gouger Relationship Specialty Start Date End Date Name, MD Ananda [address] [place] [address] PCP - General Family Medicine 06/01/15 documented as of this encounter
== END 2024-07-02 07:42 | disposition home or self-care (01) ==
LOC: HO.CT 07:41
PROVIDERS: PCP Internal Medicine Geriatric Medicine; Visit Provider Nurse Practitioner Family
DX: R93.89 Abnormal findings on diagnostic imaging of other specified body structures (principal); F17.210 Nicotine dependence, cigarettes, uncomplicated
CPT/HCPCS: 71250

== ENCOUNTER → 2024-07-02 07:43 | Outpatient (BNV) | payer OTHER, SELFPAY | PROVIDERS: PCP Internal Medicine Geriatric Medicine; Visit Provider Radiology Diagnostic Radiology | DX: J43.9 Emphysema, unspecified (principal) | CPT/HCPCS: 71250 ==

== ENCOUNTER 2024-07-03 08:41 | Outpatient (AMB) | payer OTHER, SELFPAY ==
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
[2024-07-03 08:53] VITALS: BP 132/76; PULSE 95; O2SAT 93; BMI 19.6
[2024-07-03 09:02] LABS: Glucose, Whole Blood 219 mg/dL (60-115)
--- OUTSIDE RECORDS SUMMARY | 2024-07-03 09:07 | XMS_ITS | Encounter Summary ---
Author Organization [employer] Address [address] [place] [address] Care Team Providers Care Orthotic Finish Grinding Technician Name Role Phone Name, Ananda CRANDALL Primary Care Provider [phone] Reason for Visit * Reason Comments Med Refill Encounter Details Date Type Department Care Team ([facility] Contact Info) Description 04/25/2022 Refill [facility] MEDICINE [address] [place] [address] [phone] Name, MD Ananda [address] [place] [address] Wheezing (Primary Dx) Social History Tobacco Use [...] Upcoming Encounters Date Type Department Care Team ([facility] Contact Info) Description 07/08/2024 9:15 AM EDT Office Visit [facility] MEDICINE [address] [place] [address] [phone] Latrice Ibrahim MD [address] [place] [phone] 07/15/2024 10:45 AM EDT Office Visit [facility] MEDICINE [address] [place] [phone] Name, MD Ananda [address] [place] [address] 07/17/2024 11:15 AM EDT Office Visit [facility] OPTOMETRY [address] [place] [phone] Tarka, Natalie, OD [address] [place] [address] 07/21/2024 9:30 AM EDT Telemedicine [facility] MEDICINE [address] [place] [phone] JamliahiaGeeta, PharmD [address] [place] [address] 08/05/2024 9:15 AM EDT Clinical Support [facility] MEDICINE [address] [place] [address] Sonali Stubbs, COREY [address] [place] [phone] documented as of this encounter Visit Diagnoses Diagnosis Wheezing- Primary documented in this encounter Care Teams Orthotic Finish Grinding Technician Relationship Specialty Start Date End Date Name, MD Ananda [address] [place] [phone] PCP - General Family Medicine 06/01/15 documented as of this encounter
--- OUTSIDE RECORDS SUMMARY | 2024-07-03 09:07 | XMS_ITS | Encounter Summary ---
Author Organization [employer] Address [address] [place] [address] Care Team Providers Care Ndt Inspector Name Role Phone Name, Ananda CRANDALL Primary Care Provider [phone] Reason for Visit * Reason Onset Date Comments Prior Authorization 05/07/2022 Appointment 05/07/2022 Encounter Details Date Type Department Care Team ([facility] st Contact Info) Description 05/07/2022 Telephone [facility] ADULT DENTAL [address] [place] [address] Kelvin Haque, DDS [address] [place] [address] Prior Authorization; Appointment Social History Tobacco Use [...] specify if for partial. Don't see if [facility] has approved partials for patient. Patient verifying. DR documented in this encounter Plan of Treatment Upcoming Encounters Date Type Department Care Team (Late st Contact Info) Description 07/08/2024 9:15 AM EDT Office Visit [facility] MEDICINE [address] [place] [address] Latrice Ibrahim MD [address] [place] [phone] 07/15/2024 10:45 AM EDT Office Visit [address] [address] Name, MD Ananda [address] [place] [address] 07/17/2024 11:15 AM EDT Office Visit [facility] OPTOMETRY [address] [place] [address] Natalie Davis, OD [address] [place] [address] 07/21/2024 9:30 AM EDT Telemedicine [address] [address] Geeta Dove, PharmD [address] [place] [phone] 08/05/2024 9:15 AM EDT Clinical Support [address] [address] Sonali Stubbs, COREY [address] [place] [address] documented as of this encounter Visit Diagnoses Not on filedocumented in this encounter Care Teams Ndt Inspector Relationship Specialty Start Date End Date Name, MD Ananda [address] [place] [phone] PCP - General Family Medicine 06/01/15 documented as of this encounter
--- OUTSIDE RECORDS SUMMARY | 2024-07-03 09:07 | XMS_ITS | Encounter Summary ---
Author Organization [employer] Address [address] [place] [address] Care Team Providers Care Patient Transport Orderly Name Role Phone Name, Ananda CRANDALL Primary Care Provider [phone] Encounter Details Date Type Department Care Team (Late Contact Info) Description 05/10/2022 Orders Only [facility] MEDICINE [address] [place] [address] [phone] Alis Zavala, COREY Uncomplicated opioid dependence ([facility]) Social History Tobacco Use [...] AM EDT Office Visit [facility]INE [address] [place] [address] [phone] Latrice Ibrahim MD [address] [place] [address] [phone] 07/15/2024 10:45 AM EDT Office Visit [facility]INE [address] [place] [phone] Name, MD Ananda [address] [place] [address] 07/17/2024 11:15 AM EDT Office Visit [facility] OPTOMETRY [address] [place] [phone] Natalie Davis, OD [address] [place] [address] 07/21/2024 9:30 AM EDT Telemedicine [facility] [address] [place] [phone] Geeta Dove PharmD [address] [place] [phone] 08/05/2024 9:15 AM EDT Clinical Support [address] [address] Sonali Stubbs, RN [address] [place] [phone] documented as of this encounter Visit Diagnoses Diagnosis Uncomplicated opioid dependence (CMS/HCC) documented in this encounter Care Teams Patient Transport Orderly Relationship Specialty Start Date End Date NameAnanda MD [address] [place] [phone] PCP - General Family Medicine 06/01/15 documented as of this encounter
--- OUTSIDE RECORDS SUMMARY | 2024-07-03 09:08 | XMS_ITS | Encounter Summary ---
Author Organization [employer] Address [address] [place] [address] Care Team Providers Care Distillery Worker General Name Role Phone Name, Ananda CRANDALL Primary Care Provider [phone] Encounter Details Date Type Department Care Team ([facility] st Contact Info) Description 03/28/2023 Abstract [facility] MEDICINE [address] [place], [place] [phone] Name, MD Ananda [address] [place] [address] Social History Tobacco Use Types Packs/Day Years [...] t he electric, gas, oil or water [employer] threatened to shut off services in your [...] Office Visit [facility] MEDICINE [address] [place] [phone] Latrice Ibrahim MD [address] [place] [phone] 07/15/2024 10:45 AM EDT Office Visit [address] [address] Ananda Spain MD [address] [place] [phone] 07/17/2024 11:15 AM EDT Office Visit [facility] OPTOMETRY [address] [place] [address] TarkaNatalie, OD [address] [place] [address] 07/21/2024 9:30 AM EDT Telemedicine [facility] MEDICINE [address] [place] [phone] Geeta Dove, PharmD [address] [place] [address] 08/05/2024 9:15 AM EDT Clinical Support [address] [address] Sonali Stubbs, COREY [address] [place] [phone] documented as of this encounter Visit Diagnoses Not on filedocumented in this encounter Additional Health Concerns Assessment Noted Time PHQ-9 Depression Total Score: 3 10/04/19 23 2:21 PM EDT documented as of this encounter Care Teams Distillery Worker General Relationship Specialty Start Date End Date Name, MD Ananda [address] [place] [address] PCP - General Family Medicine 06/01/15 documented as of this encounter
--- OUTSIDE RECORDS SUMMARY | 2024-07-03 09:08 | XMS_ITS | Encounter Summary ---
Author Organization [employer] Address [address] [place] [address] Care Team Providers Care Media Services Director Name Role Phone Name, Ananda CRANDALL Primary Care Provider [phone] Reason for Visit * Reason Comments Med Refill Encounter Details Date Type Department Care Team ([facility] st Contact Info) Description 09/19/2023 Refill [facility] MED [facility] PEDS [address] [place], [place] [phone] Name, MD Ananda [address] [place] [address] Pain of left leg Social History Tobacco [...] 9:15 AM EDT Office Visit [facility] MEDICINE [address] [place] [phone] Latrice Ibrahim MD [address] [place] [phone] 07/15/2024 10:45 AM EDT Office Visit [address] [address] Name, MD Ananda [address] [place] [address] 07/17/2024 11:15 AM EDT Office Visit [facility] OPTOMETRY [address] [place] [address] Natalie Davis, OD [address] [place] [phone] 07/21/2024 9:30 AM EDT Telemedicine [facility] MEDICINE [address] [place] [phone] Geeta Dove PharmD [address] [place] [address] 08/05/2024 9:15 AM EDT Clinical Support [address] [address] Sonali Stubbs, RN [address] [place] [address] documented as of this encounter Visit Diagnoses Diagnosis Pain of left leg documented in this encounter Additional Health Concerns Assessment Noted Time PHQ-9 Depression Total Score: 10 024 9:15 AM EDT documented as of this encounter Care Teams Media Services Director Relationship Specialty Start Date End Date Name, MD Ananda [address] [place] [address] PCP - General Family Medicine 06/01/15 documented as of this encounter
--- OUTSIDE RECORDS SUMMARY | 2024-07-03 09:08 | XMS_ITS | Clinical Summary ---
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 021 Active glucose blood (freshbagTouch Verio) test strip every 8 (eight) hours. [...] (CMS/HCC) 1 each 2 times daily. Call [facility] if consistently < 95% 1 each 023 Active Alcohol Swabs (Alcohol Prep) 70 % pads USE FOUR TIMES DAILY DIRECTED 023 Active clonazePAM (KlonoPIN) 1 MG tablet Take 1 mg by mouth 2 times daily. 023 Active Lancets (freshbagTouch Delica Plus [id number]) [facility] [place] BLOOD SUGAR THREE TIMES DAILY 023 [...] Take with 150 mc capsule 023 Active aspirin (Aspirin Low Dose) 81 [...] Continuous Glucose Sensor (FreeStyle Kasey 2 Sensor) [facility] USE DIRECTED TO TEST BLOOD SUGAR 8 TIMES PER DAY 2 each 024 Active Continuous Glucose Solutions Engineer (FreeStyle Kasey 2 Cromona) device Scan sensor every 8 hours 1 each 024 Active Multiple Vitamin (Multivitamin) tablet Take 1 tablet by mouth Once daily. TAKE 1 TABLET BY MOUTH EVERY DAY WITH FOODTAKE 1 TABLET BY MOUTH EVERY DAY WITH FOOD 90 tablet 3 024 2024 Active Tresiba FlexTouch 100 UNIT/ML injection INJECT 8 UNITS SUBCUTANEOUSLY EVERY DAY Active atorvastatin (Lipitor) 40 MG tabletIndicatio ns:Type 2 diabetes mellitus with hyperglycemia, with long-term current use of insulin ([facility]) TAKE 1 TABLET BY MOUTH EVERY [...] ons:Chronic obstructive pulmonary disease, unspecified COPD type ([facility]) INHALE 2 PUFFS BY MOUTH EVERY 4 TO 6 HOURS NEEDED 18 g 5 025 Active senna (Senokot) 8.6 MG tabletIndicatio ns:Constipation , unspecified constipation type TAKE 2 TABLETS BY MOUTH EVERY DAY NEEDED FOR CONSTIPATION 60 tablet 5 Active Nicotine Step 1 21 MG/24HR patch APPLY 1 PATCH TOPICALLY EVERY DAY. REMOVE OLD PATCH BEFORE APPLYING NEW ONE. Active Trelegy Ellipta 200-62.5-25 MCG/ACT aerosol powder Inhale 1 puff 1 (one) time each day at the same time. Active FreeStyle Precision Isak Test test stripIndication s:Type 2 diabetes mellitus with hyperglycemia, with long-term current use of insulin ([facility]) USE DIRECTED TO TEST BLOOD SUGAR THREE TIMES DAILY 100 strip 3 Active BD Pen Needle Pham U/F 32G X 4 MM miscIndications :Type 2 diabetes mellitus without complication, unspecified whether long-term insulin use ([facility]) USE DIRECTED FOUR TIMES DAILY 100 each 5 Active montelukast (Singulair) 10 MG tabletIndicatio ns:Seasonal allergic rhinitis, unspecified trigger Take 1 tablet (10 mg) by mouth at bedtime. 90 tablet 1 Active Suboxone 8-2 MG SL filmIndications :Uncomplicated opioid dependence ([facility]) Place 3 Film under the tongue Once per day for 28 days. 84 Film 025 2024 Active albuterol (2.5 MG/3ML) 0.083% nebulizer solution INHALE 1 AMPULE USING A NEBULIZER EVERY 6 HOURS NEEDED FOR WHEEZING 90 mL 11 025 Active montelukast (Singulair) 10 MG tabletIndicatio ns:Seasonal allergic rhinitis, unspecified trigger TAKE 1 TABLET BY MOUTH EVERY DAY AT BEDTIME 90 tablet 1 024 2024 Discontinued Pentips 32G X 4 MM miscIndications :Type 2 diabetes mellitus without complication, unspecified whether long-term insulin use ([facility]) USE DIRECTED FOUR TIMES DAILY 100 each 5 024 2024 Discontinued albuterol (2.5 MG/3ML) 0.083% nebulizer solution Take 3 mL (2.5 mg) by nebulization every 6 (six) hours if needed for wheezing. 75 mL 11 024 2024 Discontinued Suboxone 8-2 MG SL filmIndications :Uncomplicated opioid dependence ([facility]) Place 3 Film under the tongue Once per day for 28 days. 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 [address] [place] [address] Ananda Spain MD 07/01/[address] [facility] [address] [place] [address] Sonali Stubbs RN Uncomplicated opioid dependence ([facility]) 06/26/2024 11:00 AM EDT [facility] [address] [address] Ananda Spain MD COPD exacerbation ([facility]) (Primary Dx); Cough in adult patient; Seasonal allergic rhinitis, unspecified trigger 06/22/[address] [facility] [address] [place] [phone] Ananda Spain MD Seasonal allergic rhinitis, unspecified trigger 06/19/2024 11:20 AM EDT Office Visit [address] [address] Luis Espinoza MD Viral URI with cough 06/19/2024 Travel 06/12/2024 Orders Only GENERIC EXTERNAL DATA DEPARTMENT Provider, Generic External Data 06/12/[address] [facility] [address] [place] [phone] Ananda Spain MD Type 2 diabetes mellitus without complication, unspecified whether long-term insulin use ([facility]) 06/10/2024 9:30 AM EDT Clinical Support [address] [address] Sonali Stubbs, RN Opioid type dependence, continuous ([facility]) (Primary Dx) 06/10/[address] [facility] [address] [place] [phone] Ananda Spain MD 06/10/2024 Travel 06/08/2024 Telephone [facility] [address] [place], [place] [phone] Ananda Spain MD Durable Medical Equipment 06/05/[address] [facility] [address] [place] [phone] Ananda Spain MD 06/03/2024 Orders Only [facility] [address] [place] [phone] Ananda Spain MD 06/03/[address] [facility] [address] [place] [phone] Sonali Stubbs, RN Uncomplicated opioid dependence ([facility]/HCC) 06/02/[address] [address] Geeta Dove, LoretoD 05/29/2024 Orders Only GENERIC EXTERNAL DATA DEPARTMENT Provider, Generic External Data 05/28/[address] [facility] [address] [place] [phone] Ananda Spain MD Type 2 diabetes mellitus with hyperglycemia, with long-term current use of insulin ([facility]) 05/27/[address] [facility] [address] [place] [phone] Evelyn Reeves RN 05/21/2024 9:30 AM EDT Office Visit [address] [phone] So Lebron MD Chronic bronchitis, unspecified chronic bronchitis type ([facility]) (Primary Dx); Tobacco dependence 05/21/2024 Travel 05/20/[address] [facility] [address] [place] [phone] Ananda Spain MD Chart Prep 05/19/2024 Orders Only GENERIC EXTERNAL DATA DEPARTMENT Provider, Generic External Data 05/14/[address] [address] Ananda Spain MD Appointment Request 05/13/2024 9:30 AM EDT Office Visit [facility] [address] [place] [phone] Latrice Ibrahim MD Uncomplicated opioid dependence ([facility]/HCC) (Primary Dx); Tobacco dependence 05/13/2024 Travel 05/06/[address] [facility] [address] [place] [phone] Sonali Stubbs, RN Uncomplicated opioid dependence ([facility]/HCC) 05/06/[address] [facility] [address] [place] [phone] Ananda Spain MD No Show (Patient no show for sick on site ) 05/06/[address] [address] Ananda Spain MD No Show 05/06/[address] [phone] Ananda Spain MD 04/30/2024 Telephone [facility] [address] [place] [address] Ananda Spain MD chartprep 04/23/[address] [address] Ananda Spain MD 04/23/[address] [address] Ananda Spain MD Constipation, unspecified constipation type 04/16/2024 10:00 AM EST Office Visit [address] [address] Ananda Spain MD Chronic obstructive pulmonary disease, unspecified COPD type (CMS/HCC) (Primary Dx); COPD exacerbation (CMS/HCC); Hypoxia; Non-cardiac chest pain; Type 2 diabetes mellitus with hyperglycemia, with long-term current use of insulin (CMS/HCC) 04/16/2024 Travel 04/15/2024 9:30 AM EST Clinical Support [address] [address] Sonali Stubbs, COREY Uncomplicated opioid dependence ([facility]/HCC) (Primary Dx) 04/15/2024 Travel 04/14/[address] [address] Gerda Gutierrez MA chartprep 04/14/2024 Orders Only GENERIC EXTERNAL DATA DEPARTMENT Provider, Generic External Data 04/13/2024 11:00 AM EST Office Visit [facility] [address] [place] [phone] Breanna Das NP Cough in adult patient (Primary Dx); COPD with acute exacerbation (CMS/HCC) 04/12/2024 Orders Only GENERIC EXTERNAL DATA DEPARTMENT Provider, Generic External Data 04/10/[address] [place] [address] Kim Montez, COREY [address] [facility] [address] [place] [address] Sonali Stubbs, RN Uncomplicated opioid dependence ([facility]) from Last 3 Months Immunizations Name [...] AM EDT Office Visit [facility] [address] [place] [address] Latrice Ibrahim MD [address] [place] [phone] 07/15/2024 10:45 AM EDT Office Visit [facility] [address] [place] [phone] Name, MD Ananda [address] [place] [address] 07/17/2024 11:15 AM EDT Office Visit [facility] [address] [place] [address] Ryan Natalie, OD [address] [place] [address] 07/21/2024 9:30 AM EDT Telemedicine [facility] [address] [place] [address] Geeta Dove, PharmD [address] [place] [address] 08/05/2024 9:15 AM EDT Clinical Support 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 Glucose, Whole Blood 219(H) 60 - 115 mg/dL [facility] Comment:METER #: [id number] 5Testing performed in the Endocrinology Department [address] , [address], [place]. 07/03/2024 8:57 AM EDT 07/03/2024 9:01 AM EDT us Generic External Data Provider LAB BLOOD ORDERAB LES Final Result [facility] [address] [place] [phone] * CT Chest w/o Contrast (07/02/2024 7:47 AM EDT) Anatomical Region Laterality Modality Body, Chest Computed Tomogra phy 07/02/2024 7:47 AM EDT Narrative 07/02/2024 10:01 AM EDT ? [facility] ?[address] ?[place] [address] ? CT Scan Report ? Signed ? Patient: Esparra,Hari ?MR#: [id number] ?? [id number] ? : 1965 ?Acct:[id number] ? Age/Sex: 59 / M ?ADM Date: 05/01/25 ? Loc: HO.CT ? Attending Dr: Chanel Thomas FLOWER ARRANGER ? Ordering Physician: Chanel Thomas NP ?? Date of Service: 07/02/24 ?? Procedure(s): CT chest wo IV con ?? Accession Number(s): [id number] ? cc: Name,Ananda CRANDALL; Chanel Thomas NP ? Report Number: ?? [id number]: Total DLP = ??110.00 mGy-cm ?? EXAMINATION: CT CHEST WITHOUT IV CONTRAST ? INDICATION: R93.89 - Abnormal findings on diagnostic imaging of other ?? specified body... ? COMPARISON: Comparison is made with the prior examination dated ?? 02/26/2019. ? TECHNIQUE: Helical CT scan of the chest was performed without ?? intravenous contrast. ??Coronal and sagittal reformatted images were ?? generated and reviewed. ? This CT exam was performed with one or more of the following dose ?? reduction techniques: automated exposure control, adjustment of the mA ?? and/or kV according to patient size, use of iterative reconstruction ?? technique. ? DLP: 110 mGy-cm ? CHEST: ? THYROID: The thyroid is unremarkable. ? LUNGS: There are mild emphysematous changes. There is mild biapical ?? pleural and parenchymal scarring. There is a subcentimeter curvilinear ?? density in the right upper lobe (series 4, image 67) without change. ?? There is a 3 mm nodule in the right lower lobe (series 4, image 93). ?? Again seen is a calcified granuloma at the left lung base (series 4, ?? image 129). There is mild fibrotic change at the lung bases. Nodular ?? airspace opacities in the right posterior costophrenic angle are ?? unchanged. ? MEDIASTINUM: There are subcentimeter subcarinal lymph nodes. There is ?? no mediastinal lymphadenopathy. ? ALEX: Evaluation of the hilar regions is limited by lack of intravenous ?? contrast material. ? CARDIOVASCULATURE: The heart is normal in size. ??There is no ?? pericardial effusion. ??The thoracic aorta is normal in caliber. ? DEGREE OF CORONARY CALCIFICATION: ??mild ? PLEURA: ??There is no pleural effusion. ??No pneumothorax. ? MAIN AIRWAYS: The mainstem bronchi and proximal branches are patent. ? AXILLA: There is no axillary lymphadenopathy. ? BONES AND SOFT TISSUES: Unremarkable ? UPPER ABDOMEN: The visualized portions of the liver, spleen, and ?? adrenals have an unremarkable unenhanced appearance. ? CT/CT chest wo IV con ?? IMPRESSION: ?? Mild emphysema. Chronic lung changes as described. No acute abnormality ?? is identified. ? Electronically signed by: ??Víctor Barnes MD ??07/02/2024 09:58 AM EDT ? Dictated By: ?Víctor Barnes MD ? Signed By: ?<Electronically signed by Víctor Barnes MD in OV> ?07/02/24957 ? DD/ 0747 ? TD/TT: 07/02/24 0752 ? Internet Sales Associate: ? Procedure Note Kay, Alex - 07/02/[address] [place] [address] [address] Scan Report Signed Patient: Hubert Rios MMR#: [id number] : 1965Acct:[id number] Age/Sex: 59 / MADM Date: 07/02/24 Loc: HO.CT Attending Dr: Chanel Thomas NP Ordering Physician: Chanel Thomas NP Date of Service: 07/02/24 Procedure(s): CT chest wo IV con Accession Number(s): [id number] cc: Name,Ananda CRANDALL; Chanel Thomas NP Report Number: [id number]: Total DLP = 110.00 mGy-cm EXAMINATION: CT CHEST WITHOUT IV CONTRAST INDICATION: R93.89 - Abnormal findings on diagnostic imaging of other specified body... COMPARISON: Comparison is made with the prior examination dated 02/26/2019. TECHNIQUE: Helical CT scan of the chest was performed without intravenous contrast. Coronal and sagittal reformatted images were generated and reviewed. This CT exam was performed with one or more of the following dose reduction techniques: automated exposure control, adjustment of the mA and/or kV according to patient size, use of iterative reconstruction technique. DLP: 110 mGy-cm CHEST: THYROID: The thyroid is unremarkable. LUNGS: There are mild emphysematous changes. There is mild biapical pleural and parenchymal scarring. There is a subcentimeter curvilinear density in the right upper lobe (series 4, image 67) without change. There is a 3 mm nodule in the right lower lobe (series 4, image 93). Again seen is a calcified granuloma at the left lung base (series 4, image 129). There is mild fibrotic change at the lung bases. Nodular airspace opacities in the right posterior costophrenic angle are unchanged. MEDIASTINUM: There are subcentimeter subcarinal lymph nodes. There is no mediastinal lymphadenopathy. ALEX: Evaluation of the hilar regions is limited by lack of intravenous contrast material. CARDIOVASCULATURE: The heart is normal in size. There is no pericardial effusion. The thoracic aorta is normal in caliber. DEGREE OF CORONARY CALCIFICATION: mild PLEURA: There is no pleural effusion. No pneumothorax. MAIN AIRWAYS: The mainstem bronchi and proximal branches are patent. AXILLA: There is no axillary lymphadenopathy. BONES AND SOFT TISSUES: Unremarkable UPPER ABDOMEN: The visualized portions of the liver, spleen, and adrenals have an unremarkable unenhanced appearance. CT/CT chest wo IV con IMPRESSION: Mild emphysema. Chronic lung changes as described. No acute abnormality is identified. Electronically signed by: Víctor Barnes MD 07/02/2024 09:58 AM EDT Dictated By: Víctor Barnes MD Signed By: <Electronically signed by Víctor Barnes MD in OV> 07/02/24 0958 DD/ 0747 TD/TT: 07/02/24 0752 Internet Sales Associate: [facility] External Provider IMG CT PROCEDURES Final Result * Influenza B (ID NOW Rapid Molecular) (06/26/2024 10:53 AM EDT) Only the most recent of3 resultswithin the time period is included. Influenza B Negative Negative, Indeterminate [facility] Swab 06/26/2024 10:5 3 AM EDT Ananda Spain MD POINT OF CARE TEST ENTER/EDIT OR DERABLES Final Result Performing Organization Address City/[facility]/ZIP Co de Phone Number [facility] [address] [place] [phone] * Influenza A (ID NOW Rapid Molecular) (06/26/2024 10:53 AM EDT) Only the most recent of3 resultswithin the time period is included. [facility] Influenza A Negative Negative, Indeterminate [facility] Swab 06/26/2024 10:5 3 AM EDT Ananda Spain MD POINT OF CARE TEST ENTER/EDIT OR DERABLES Final Result Performing Organization Address [facility] Co de Phone Number [facility] [address] [place] [phone] * POCT COVID-19 Ag Rao ID NOW (06/26/2024 10:53 AM EDT) [facility] Coronavirus Antigen PCR Negative Negative, Indeterminate, None Detected, Invalid, Specimen unsatisfactory for evaluation, Weakly Positive Swab 06/26/2024 10:5 3 AM EDT Ananda Spain MD POINT OF CARE TEST ENTER/EDIT OR DERABLES Final Result * POCT rapid strep A manually resulted (06/26/2024 10:53 AM EDT) [facility] Rapid Strep A Screen Negative Negative, None Detected Swab 06/26/2024 10:5 3 AM EDT Ananda Spain MD POINT OF CARE TEST ENTER/EDIT OR DERABLES Final Result * POCT Rapid COVID Ag (06/19/2024 10:57 AM EDT) Only the most recent of2 resultswithin the time period is included. [facility] Rapid COVID Ag Negative Swab 06/19/2024 10:5 7 AM EDT Luis Espinoza MD POINT OF CARE TEST ENTER/EDIT OR DERABLES Final Result * POCT FARA-14 Urine Drug Screen (06/10/2024 [...] 8:43 AM EDT) Creatinine, Urine 126.68 mg/dL [facility] Microalbumin Urine 15.0 mg/L [facility] Microalbum Creatinine Ratio Ur 11.8 <30 ug/mg cr [facility] Comment:Albumin/Creatinine R atio Reference Ranges: Normal: < 30 ug/mg creatinine Microalbuminuria: 30 - 300 ug/mg creatinineClinical Albuminuria: > 300 ug/mg creatinine 05/29/2024 8:43 AM EDT 05/29/2024 9:05 AM EDT Generic External Data Provider LAB URINE ORDERAB LES Final Result [facility] [address] [place] [phone] * (ABNORMAL) CBC auto differential (05/27/2024 8:40 AM EDT) Only the most recent of2 resultswithin the time period is included. White Blood Count 8.3 4.8 - 10.8 X10*3/uL [facility] Red Blood Count 4.66 4.60 - 5.80 X10*6/uL [facility] Hemoglobin 13.7(L) 14.0 - 18.0 g/dl [facility] Hematocrit 41.9(L) 42.0 - 52.0 % [facility] Mean Corpuscular Volume 89.9 80.0 - 98.0 fL [facility] Mean Corpuscular Hemoglobin 29.4 27.0 - 33.0 pg [facility] Mean Corpuscular HGB Conc 32.7 31.0 - 36.0 g/dl [facility] Red Cell Distribution Width 14.6 11.0 - 16.0 % [facility] Platelet Count 270 160 - 400 X10*3/uL [facility] Mean Platelet Volume 10.8 9.4 - 12.4 fL [facility] Neutrophils Percent Auto 38.6(L) 45 - 73 % [facility] Imm Gran Pct Auto 0.2 0.0 - 0.4 % [facility] Lymphocytes Percent Auto 43.0(H) 20 - 40 % [facility] Monocytes Percent Auto 10.4 2 - 11 % [facility] Eosinophils Percent Auto 6.6(H) 0 - 4 % [facility] Basophils Percent Auto 1.2 0 - 2 % [facility] NRBC Pct Auto 0.0 0.0 - 0.2 /100WBC [facility] Neutrophils Absolute Auto 3.2 2.0 - 8.3 x10*3/uL [facility] Imm Gran Abs Auto 0.02 0.00 - 0.03 X10*3/uL [facility] Lymphocytes Absolute Auto 3.6 1.2 - 4.9 X10*3/uL [facility] Monocytes Absolute Auto 0.9 0.1 - 1.2 X10*3/uL [facility] Eosinophils Absolute Auto 0.6(H) 0.0 - 0.4 X10*3/uL [facility] Basophils Absolute Auto 0.1 0.0 - 0.2 X10*3/uL [facility] NRBC Abs Auto 0.000 0.0 - 0.012 X10*3/uL [facility] Blood Venous blood specimen / Unknown 05/27/2024 8:40 AM EDT 05/27/2024 8:40 AM EDT us Ananda Spain MD LAB BLOOD ORDERABLES Final Resul t Performing Organization Address [facility] Co de Phone Number [facility] [address] [place] [phone] * Hepatitis A Antibody, Total (05/27/2024 8:40 AM EDT) Hepatitis A Antibody IgG REACTIVE Nonreactive [facility] Comment:The presence of IgG anti-HAV implies past HAV infection(recent or distant) or vaccination against HAV. Blood Venous blood specimen / Unknown 05/27/2024 8:40 AM EDT 05/27/2024 8:40 AM EDT us Ananda Spain MD LAB BLOOD ORDERABLES Final Resul t Performing Organization Address [facility] de Phone Number [facility] [address] [place] [phone] * Hepatitis B surface antigen, EIA (05/27/2024 8:40 AM EDT) Hepatitis B Surface Ag Negative Negative [facility] Blood Venous blood specimen / Unknown 05/27/2024 8:40 AM EDT 05/27/2024 8:40 AM EDT us Ananda Spain MD LAB BLOOD ORDERABLES Final Resul t Performing Organization Address [facility] de Phone Number [facility] [address] [place] [phone] * Hepatitis B Surface Antibody, Qualitative (05/27/2024 8:40 AM EDT) ~Hepatitis B Surface Antibody REACTIVE Nonreactive [facility] Comment:REACTIVE: > 11.99 mI U/mL Blood Venous blood specimen / Unknown 05/27/2024 8:40 AM EDT 05/27/2024 8:40 AM EDT us Ananda Spain MD LAB BLOOD ORDERABLES Final Resul t Performing Organization Address City/[facility]/ZIP Co de Phone Number [facility] [address] [place] [address] [phone] * (ABNORMAL) Hemoglobin A1c (05/27/2024 8:40 AM EDT) Pathologist [facility] Hemoglobin A1c 8.3(H) <6.0 % [facility] Comment:Hemoglobin A1C Refer ence Range Adults: 4.8 - 6.0 % Non diabetic: < 6.0 % Goal: < 7.0 %Additional Action Suggested: > 8.0 %Note: Hemoglobin A1c results are invalid for patients with abnormal amounts of HbF. Blood transfusions may impact the HbA1c concentration in the patient sample. Estimated Average Glucose 192 mg/dL [facility] Comment:eAG = Estimated ave rage glucose which is %A1C expressed asaverage glucose, using the formula of the C7H-[id number] Glucose study (ADAG), Diabetes Care, Vol.31,#8,Oct. 2007 Blood Venous blood specimen / Unknown 05/27/2024 8:40 AM EDT 05/27/2024 8:40 AM EDT us Ananda Spain MD LAB BLOOD ORDERABLES Final Resul t Performing Organization Address City/[facility]/ZIP Co de Phone Number [facility] [address] [place] [address] [phone] * (ABNORMAL) Lipid Panel, Standard (05/27/2024 8:40 AM EDT) Triglycerides 73 <150 mg/dL [facility] Comment:Desirable Triglyceri de: less than 150 mg/dLBorderline High Triglyceride 150-199 mg/dLHigh Triglyceride: 200-499 mg/dLVery High Triglyceride: greater than or equal to 5OO mg/dL Cholesterol 221(H) <200 mg/dL [facility] Comment:Desirable Cholestero l: less than 200 mg/dLBorderline High Cholesterol: 200-239 mg/dLHigh Cholesterol: greater than 239 mg/dL LDL Cholesterol Calculated 75 <100 mg/dL [facility] Comment:Desirable LDL: less than 100 mg/dLNear Optimal/Above Optimal LDL: 110- 129 mg/dLBorderline High LDL: 130-159 mg/dLHigh LDL: 160-189 mg/dLVery High LDL: greater than or equal to 190 mg/dL HDL Cholesterol 132 >40 mg/dL [facility] Comment:Desirable HDL: great er than 40 mg/dL Note: This HDL assay may give artificially low results in patients with liver disease. Blood Venous blood specimen / Unknown 05/27/2024 8:40 AM EDT 05/27/2024 8:40 AM EDT us Ananda Name MD LAB BLOOD ORDERABLES Final Resul t [facility] [address] [place] [address] [phone] * (ABNORMAL) Comprehensive Metabolic Panel (05/27/2024 8:40 AM EDT) Only the most recent of2 resultswithin the time period is included. Sodium 146(H) 135 - 145 mmol/L [facility] Potassium 3.6 3.3 - 5.1 mmol/L [facility] Chloride 109(H) 96 - 108 mmol/L [facility] Carbon Dioxide 30(H) 22 - 29 mmol/L [facility] Anion Gap 11(L) 12 - 20 [facility] Urea Nitrogen (BUN) 14 9 - 16 mg/dL [facility] Creatinine, Serum 0.73 0.5 - 1.4 mg/dL [facility] Estimated Glomerular Filt Rate >60 [facility] Comment:Chronic Kidney Disea se: Estimated GFR < 60 mL/min/1.27t4Zlvrzq Kidney Disease: Estimated GFR < 15 mL/min/1.73m2 Glucose 46(LL) 60 - 115 mg/dL [facility] Comment:Critical value for G ELENI: Results called to and read hungy: BOZENA Paige Person calling: NAYLA Date: 05-27-24 Time:1035 Calcium 10.2 8.4 - 10.2 mg/dL [facility] Bilirubin, Total 1.3(H) 0.0 - 1.0 mg/dL [facility] Aspartate Amino Transferase 38(H) 5 - 37 U/L [facility] Alanine Aminotransferase 28 0 - 40 U/L [facility] Total Protein 7.3 6.5 - 8.0 g/dL [facility] Albumin Level 4.7 3.5 - 5.0 g/dL [facility] Alkaline Phosphatase 55 39 - 117 U/L [facility] Blood Venous blood specimen / Unknown 05/27/2024 8:40 AM EDT 05/27/2024 8:40 AM EDT us Ananda Spain MD LAB BLOOD ORDERABLES Final Resul t [facility] [address] [place] [phone] * (ABNORMAL) POCT HGB A1C (04/16/2024 [...] Unknown 04/16/2024 10:21 AM EST us Ananda Name MD POINT OF CARE TEST ENTER/EDIT OR DERABLES Final Result * XR Chest 2 Views (04/12/2024 3:17 PM EST) Anatomical Region Laterality Modality Chest Radiographic Altagracia ging 04/12/2024 3:17 PM EST Narrative 04/12/2024 3:18 PM EST ? [facility] ?[address] ?[place] [address] ?XRay Report ? Signed ? Patient: Gabriel DineroHubert pedraza ?MR#: ?? [id number] ? : 1965 ?Acct:[id number] ? Age/Sex: 59 / M ?ADM Date: 04/12/24 ? Loc: HO.ED ? Attending Dr: ? Ordering Physician: Pebbles Rooney CNP ?? Date of Service: 04/12/24 ?? Procedure(s): XR chest 2V ?? Accession Number(s): [id number] ? cc: Pebbles Rooney CNP; Name,Ananda CRANDALL [...] DD/ 1517 ? TD/TT: 04/12/24 1517 ? Internet Sales Associate: ? Procedure Note Alex Villanueva - 04/12/2024 [facility] [address] [facility] [place] [address] XRay Report Signed Patient: Hubert Cruz [facility]#: [id number] : 1965Acct:[id number] Age/Sex: 59 / MADM Date: 04/12/24 Loc: HO.ED Attending Dr: Ordering Physician: Pebbles Rooney CNP Date of Service: 04/12/24 Procedure(s): XR chest 2V Accession Number(s): [id number] cc: Pebbles Rooney CNP; Name,Ananda CRANDALL CLINICAL [...] 04/12/24 1518 DD/ 1517 TD/TT: 04/12/24 151 Internet Sales Associate: [facility] External Provider IMG XR PROCEDURES Edited Result - Final * High Sensitivity Troponin I (04/12/2024 2:06 PM EST) TROPONIN I HIGH SENSITIVITY 6.3 <3.5 - 35.0 ng/L [facility] Comment:The Rao high sens itivity Troponin-I results should beused in conjunction with other diagnostic information suchas ECG, clinical observations and information, and patientsymptoms to aid in the diagnosis of [place]. 04/12/2024 2:06 PM EST 04/12/2024 2:09 PM EST Generic External Data Provider LAB BLOOD ORDERAB LES Final Result [facility] [address] [place] [phone] * SARS-CoV-2 RNA, Influenza A/B, and RSV RNA, Ql NAAT (04/12/2024 2:06 PM EST) Influenza A PCR NEGATIVE Negative [facility] Influenza B PCR NEGATIVE Negative [facility] Resp Syncy Virus RNA Qual PCR NEGATIVE Negative [facility] SARS COV2 PCR NEGATIVE Negative [facility] Comment:All test results mus t be [...] use by authorized laboratories.Testing performed on the [employer] GeneXpert utilizingreal-time RT-PCR.All SARS CoV2 and positive influenza A/B results arereported to [facility]. 04/12/2024 2:06 PM EST 04/12/2024 2:09 PM EST us Generic External Data Provider LAB MICROBIOLOGY - GENERAL ORDERABLES Final Result [facility] [address] [place] [phone] * Prothrombin Time-INR (04/12/2024 2:06 PM EST) Prothrombin Time 11.3 10.9 - 12.4 SEC [facility] INTERNATIONAL NORM RATIO 1.0 0.9 - 1.1 [facility] Comment:INTERNATIONAL NORMAL IZED RATIO (INR) [...] ORDERAB LES Final Result Performing Organization Address [facility] de Phone Number [facility] [address] [place] [phone] * B Type Natriuretic Peptide (BNP) (04/12/2024 2:06 PM EST) [facility] B Type Natriuretic Peptide 11 <100 pg/mL [facility] Comment:For those patients w ho are being treated with Natrecor(nesiritide, recombinant BNP), BNP testing should beperformed at least two hours post treatment in order toensure that only endogenous levels of BNP are detected. 04/12/2024 2:06 PM EST 04/12/2024 2:09 PM EST Generic External Data Provider LAB BLOOD ORDERAB LES Final Result Performing Organization Address [facility] de Phone Number [facility] [address] [place] [phone] * Magnesium (04/12/2024 2:06 PM EST) [facility] Magnesium 1.9 1.6 - 2.6 mg/dL [facility] 04/12/2024 2:06 PM EST 04/12/2024 2:09 PM EST Generic External Data Provider LAB BLOOD ORDERAB LES Final Result Performing Organization Address [facility] de Phone Number [facility] [address] [place] [phone] * (ABNORMAL) Hepatitis C Antibody with Reflex to HCV, RNA, Quantitative, Real- Time PCR (03/29/2023 9:12 AM EST) [facility] Hepatitis C Antibody Reactive( A) Nonreactive [facility] Comment:Presumptive evidence of antibodies to HCV. 03/29/2023 9:12 AM EST 03/29/2023 11:11 AM EST Latrice Ibrahim MD LAB BLOOD ORDERABLES Final Resul t Performing Organization Address [facility] Co de Phone Number [facility] [address] [place] [phone] * HIV-1/2 Antigen and Antibodies, Fourth Generation, with Reflexes (03/29/2023 9:12 AM EST) HIV AB/AG Nonreactive Nonreactive [facility] Comment:HIV-1 p24 Ag and/or HIV-1/HIV-2 Ab not detected.A test result that is nonreactive does not exclude thepossibility of exposure to or infection with HIV-1 and/orHIV-2. Nonreactive results in this assay for individualswith prior exposure to HIV-1 and/or HIV-2 may be due toantigen and antibody levels that are below the limit ofdetection of this assay.[employer] HIV Ag/Ab Combo assay result andsupplemental assay results should be interpreted inconjunction with the patient's clinical presentation,history and other laboratory results. If the results areinconsistent with clinical evidence, additional testing issuggested to confirm the result. 03/29/2023 9:12 AM EST 03/29/2023 11:11 AM EST Latrice Ibrahim MD LAB BLOOD ORDERABLES Final Resul t Performing Organization Address City/[facility] Co de Phone Number [facility] [address] [place] [phone] * Hm Colonoscopy (08/16/2015 1:52 PM EDT) Colonoscopy Normal Normal Narrative Gloria Álvarez - 08/16/2015 1:52 PM EDT Recommended 10 year follow up Damari Zhang MD HEALTH MAINTENANCE Final Result from Last 3 Months or Most Recently Relevant to Health Maintenance Insurance [employer]ARE < 65 Care Teams Cigarette Making Machine Hopper Feeder Relationship Specialty Start Date End Date Name, MD Ananda [address] [place] [phone] PCP - General Family Medicine 06/01/15
--- OUTSIDE RECORDS SUMMARY | 2024-07-03 09:08 | XMS_ITS | Encounter Summary ---
Author Organization [email or web address] Address [address] [facility] [address] [place] [address] Care Team Providers Care Metal Burrer Name Role Phone Name, Ananda CRANDALL Primary Care Provider [phone] Reason for Visit * Reason Comments Med Refill Encounter Details Date Type Department Care Team ([facility] Contact Info) Description 02/28/2023 Refill [facility] [address] [place], [place] [phone] Name, MD Ananda [address] [place] [address] Pain of left leg Social History Tobacco [...] [facility] MEDICINE [address] [place] [phone] Latrice Ibrahim MD [address] [place] [address] 07/15/2024 10:45 AM EDT Office Visit [address] [address] Ananda Spain MD [address] [place] [address] 07/17/2024 11:15 AM EDT Office Visit [facility] OPTOMETRY [address] [place] [address] TarNatalie elizabeth, OD [address] [place] [address] 07/21/2024 9:30 AM EDT Telemedicine [facility] MEDICINE [address] [place] [address] Geeta Dove, PharmD [address] [place] [address] 08/05/2024 9:15 AM EDT Clinical Support [address] [address] Sonali Stubbs RN [address] [place] [address] documented as of this encounter Visit Diagnoses Diagnosis Pain of left leg documented in this encounter Additional Health Concerns Assessment Noted Time PHQ-9 Depression Total Score: 3 10/04/19 23 2:21 PM EDT documented as of this encounter Care Teams Metal Burrer Relationship Specialty Start Date End Date Name, MD Ananda [address] [place] [address] PCP - General Family Medicine 06/01/15 documented as of this encounter
--- OUTSIDE RECORDS SUMMARY | 2024-07-03 09:08 | XMS_ITS | Encounter Summary ---
Author Organization [employer] Address [address] [facility] [address] [place] [address] Care Team Providers Care Logistics Account Manager Name Role Phone Name, Ananda CRANDALL Primary Care Provider [phone] Reason for Visit * Reason Comments Med Refill Encounter Details Date Type Department Care Team ([facility] Contact Info) Description 07/02/2024 Refill [facility] [address] [place], [place] [phone] Name, MD Ananda [address] [place] [address] Social History Tobacco Use Types Packs/Day Years [...] Office Visit [facility] [address] [place] [phone] Latrice Ibrahim MD [address] [place] [address] 07/15/2024 10:45 AM EDT Office Visit [facility] [address] [place] [phone] Name, MD Ananda [address] [place] [address] 07/17/2024 11:15 AM EDT Office Visit [facility] OPTOMETRY [address] [place] [address] Natalie Davis, MADIE [address] [place] [address] 07/21/2024 9:30 AM EDT Telemedicine [facility] [address] [place] [address] Geeta Dove PharmD [address] [place] [address] 08/05/2024 9:15 AM EDT Clinical Support [facility] [address] [place] [address] Sonali Stubbs, COREY [address] [place] [address] documented as of this encounter Goals Goal [...] documented as of this encounter Care Teams Logistics Account Manager Relationship Specialty Start Date End Date Name, MD Ananda [address] [place] [address] PCP - General Family Medicine 06/01/15 documented as of this encounter
--- OUTSIDE RECORDS SUMMARY | 2024-07-03 09:08 | XMS_ITS | Encounter Summary ---
Author Organization [email or web address] Address [address] [facility] [address] [place] [address] Care Team Providers Care Nurse Staff Community Health Name Role Phone Name, Ananda CRANDALL Primary Care Provider [phone] Reason for Visit * Reason Comments Med Refill Encounter Details Date Type Department Care Team (Late Contact Info) Description 12/07/2022 Refill [facility] [address] [place] [address] [phone] Name, MD Ananda [address] [place] [address] Type 2 diabetes mellitus without complication, unspecified whether skilled nursing insulin use ([facility]); Type 2 diabetes mellitus without complication, with long-term current use of insulin ([facility]) Social History Tobacco Use Types [...] Upcoming Encounters Date Type Department Care Team ([facility] Contact Info) Description 07/08/2024 9:15 AM EDT Office Visit [facility] [address] [place] [phone] Latrice Ibrahim MD [address] [place] [address] 07/15/2024 10:45 AM EDT Office Visit [facility] [address] [place] [phone] Name, MD Ananda [address] [place] [address] 07/17/2024 11:15 AM EDT Office Visit [facility] OPTOMETRY [address] [place] [address] Natalie Davis, OD [address] [place] [address] 07/21/2024 9:30 AM EDT Telemedicine [facility] [address] [place] [phone] Geeta Doev, PharmD [address] [place] [address] 08/05/2024 9:15 AM EDT Clinical Support [facility] [address] [place] [address] Sonali Stubbs, COREY [address] [place] [address] documented as of this encounter Visit Diagnoses Diagnosis Type 2 diabetes mellitus without complication, unspecified whether skilled nursing insulin use ([facility]) documented in this encounter Additional Health Concerns Assessment Noted Time PHQ-9 Depression Total Score: 3 10/04/19 23 2:21 PM EDT documented as of this encounter Care Teams Nurse Staff Community Health Relationship Specialty Start Date End Date Name, MD Ananda [address] [place] [phone] PCP - General Family Medicine 06/01/15 documented as of this encounter
--- OUTSIDE RECORDS SUMMARY | 2024-07-03 09:08 | XMS_ITS | Encounter Summary ---
Author Organization [employer] Address [address] [facility] [address] [place] [address] Care Team Providers Care Costume Rental Clerk Name Role Phone Name, Ananda CRANDALL Primary Care Provider [phone] Reason for Visit * Reason Comments Med Refill Encounter Details Date Type Department Care Team ([facility] Contact Info) Description 06/07/2022 Refill [facility] [address] [place], [place] [phone] Sebastián Graves MD [address] [place], [place] [phone] Pain of left leg Social History Tobacco [...] Description 07/08/2024 9:15 AM EDT Office Visit [facility] [address] [place] [address] Latrice Ibrahim MD [address] [place] [address] 07/15/2024 10:45 AM EDT Office Visit [facility] [address] [place] [phone] Name, MD Ananda [address] [place] [phone] 07/17/2024 11:15 AM EDT Office Visit [facility] [address] [place] [address] Tarka, Natalie, OD [address] [place] [address] 07/21/2024 9:30 AM EDT Telemedicine [facility] [address] [place] [address] Geeta Dove, PharmD [address] [place] [address] 08/05/2024 9:15 AM EDT Clinical Support [facility] [address] [place] [phone] Sonali Stubbs, COREY [address] [place] [address] documented as of this encounter Visit Diagnoses Diagnosis Pain of left leg documented in this encounter Care Teams Costume Rental Clerk Relationship Specialty Start Date End Date Name, MD Ananda [address] [place] [address] PCP - General Family Medicine 06/01/15 documented as of this encounter
--- OUTSIDE RECORDS SUMMARY | 2024-07-03 09:08 | XMS_ITS | Encounter Summary ---
Author Organization [employer] Address [address] [facility] [address] [place] [address] Care Team Providers Care Business Division Chair Name Role Phone Name, Ananda CRANDALL Primary Care Provider [phone] Encounter Details Date Type Department Care Team ([facility] Contact Info) Description 08/13/2022 Abstract [facility] [address] [place] [address] [phone] Name, MD Ananda [address] [place] [address] [phone] Social History Tobacco Use Types Packs/Day Years [...] Upcoming Encounters Date Type Department Care Team ([facility] Contact Info) Description 07/08/2024 9:15 AM EDT Office Visit [facility] [address] [place] [address] [phone] Latrice Ibrahim MD [address] [place], [place] [phone] 07/15/2024 10:45 AM EDT Office Visit [facility] [address] [place] [phone] Name, MD Ananda [address] [place] [address] 07/17/2024 11:15 AM EDT Office Visit [facility] OPTOMET[facility] [address] [place] [address] Tarclara Natalie, OD [address] [place] [address] 07/21/2024 9:30 AM EDT Telemedicine [address] [address] Geeta Dove, PharmD [address] [place] [address] 08/05/2024 9:15 AM EDT Clinical Support [facility] [address] [place] [address] Sonali Stubbs, COREY [address] [place] [address] documented as of this encounter Procedures Procedure [...] filedocumented in this encounter Care Teams Business Division Chair Relationship Specialty Start Date End Date Name, MD Ananda [address] [place] [phone] PCP - General Family Medicine 06/01/15 documented as of this encounter
--- OUTSIDE RECORDS SUMMARY | 2024-07-03 09:08 | XMS_ITS | Encounter Summary ---
Author Organization [employer] Address [address] [facility] [address] [place] [address] Care Team Providers Care 3D Specialist Name Role Phone Name, Ananda CRANDALL Primary Care Provider [phone] Encounter Details Date Type Department Care Team (Latest Contact Info) Description 01/09/2021 Abstract [facility] CONVERSIONS Dental, Provider, DDS Social History [...] Description 07/08/2024 9:15 AM EDT Office Visit [facility] [address] [place] [phone] Latrice Ibrahim MD [address] [place] [address] 07/15/2024 10:45 AM EDT Office Visit [facility] [address] [place] [address] [phone] Name, MD Ananda [address] [place] [phone] 07/17/2024 11:15 AM EDT Office Visit [facility] OPTOMETRY [address] [place], [place] [phone] Natalie Davis, OD [address] [place] [address] 07/21/2024 9:30 AM EDT Telemedicine [address] [address] Geeta Dove, Donte [address] [place] [address] 08/05/2024 9:15 AM EDT Clinical Support [address] [address] Sonali Stubbs, RN [address] [place] [address] documented as of this encounter Visit Diagnoses Not on filedocumented in this encounter Care Teams 3D Specialist Relationship Specialty Start Date End Date Name, MD Ananda [address] [place] [phone] PCP - General Family Medicine 06/01/15 documented as of this encounter
--- OUTSIDE RECORDS SUMMARY | 2024-07-03 09:08 | XMS_ITS | Encounter Summary ---
Author Organization [employer] Address [address] 7t [place] [address] Care Team Providers Care Camera Tuning Engineer Name Role Phone Name, Ananda CRANDALL Primary Care Provider [phone] Encounter Details Date Type Department Care Team ([facility] st Contact Info) Description 07/02/2024 Orders Only [facility] External Provider, [facility] Social History Tobacco Use Types Packs/Day Years [...] Description 07/08/2024 9:15 AM EDT Office Visit [facility] [address] [place] [address] Latrice Ibrahim MD [address] [place] [address] 07/15/2024 10:45 AM EDT Office Visit [address] [address] Ananda Spain MD [address] [place] [address] 19886 07/17/2024 11:15 AM EDT Office Visit [facility] [address] [place] [address] Natalie Davis, OD [address] [place] [address] 07/21/2024 9:30 AM EDT Telemedicine [facility] [address] [place] [address] Geeta Dove, PharmD [address] [place] [address] 08/05/2024 9:15 AM EDT Clinical Support [address] [address] Sonali Stubbs, COREY [address] [place] [address] documented as of this encounter Goals Goal Patient Goal Type Associated Problems Recent Progress Patient-Stated? Author Increase coping skills to promote long-term recovery and improve ability to perform daily activities General On track( 025 9:51 AM EDT) No Sonali Stubbs RN Reduce tobacco use (cigarettes, smokeless, etc) Tobacco Use No Sonali Stubbs RN documented as of this encounter Procedures Procedure Name Priority Date/Time Associated Diagnosis Comments CT CHEST WO CONTRAST Routine 07/02/2024 7:47 AM EDT documented in this encounter Results * CT Chest w/o Contrast (07/02/2024 7:47 AM EDT) Anatomical Region Laterality Modality Body, Chest Computed Tomogra phy 07/02/2024 7:47 AM EDT Narrative 07/02/2024 10:01 AM EDT ? [facility] ?[address] ?[place] [address] ? CT Scan Report ? Signed ? Patient: Hubert Rios ?MR#: [id number] ?? [id number] ? : 1965 ?Acct:[id number] ? Age/Sex: 59 / M ?ADM Date: 07/02/24 ? Loc: HO.CT ? Attending Dr: Chanel Thomas NP ? Ordering Physician: Chanel Thomas NP ?? Date of Service: 07/02/24 ?? Procedure(s): CT chest wo IV con ?? Accession Number(s): [id number] ? cc: Ananda Spain MD; Chanle Thomas NP ? Report Number: ?? [id number]: Total DLP = ??110.00 mGy-cm ?? EXAMINATION: [...] ??Víctor Barnes MD ??07/02/2024 09:58 AM EDT ?? RP ? Dictated By: ?Víctor Barnes MD ? Signed By: ?<Electronically signed by Víctor Barnes MD in OV> ?07/02/24 0958 ? DD/ 0747 ? TD/TT: 07/02/24 0752 ? Animal Physiology Teacher: ? Procedure Note Donotuseinterpreter, Image - 07/02/[address] [address] [address] Scan Report Signed Patient: Hubert Rios MMR#: [id number] : 1965Acct:[id number] Age/Sex: 59 / MADM Date: 07/02/24 Loc: HO.CT Attending Dr: Chanel Thomas NP Ordering Physician: Chanel Thomas NP Date of Service: 07/02/24 Procedure(s): CT chest wo IV con Accession Number(s): [id number] cc: Grabiel,Ananda CRANDALL; Chanel Thomas NP Report Number: [id number]: Total DLP = 110.00 mGy-cm EXAMINATION: CT [...] Víctor Barnes MD 07/02/2024 09:58 AM EDT RP Dictated By: Víctor Barnes MD Signed By: <Electronically signed by Víctor Barnes MD in OV> 07/02/24 0958 DD/ 0747 TD/TT: 07/02/24 0752 Animal Physiology Teacher: [facility] External Provider IMG CT PROCEDURES Final Result documented in this encounter Visit Diagnoses Not on filedocumented in this encounter Additional Health Concerns Assessment Noted Time PHQ-9 Depression Total Score: 10 024 9:15 AM EDT documented as of this encounter Care Teams Camera Tuning Engineer Relationship Specialty Start Date End Date Name, MD Ananda [address] [place] [address] PCP - General Family Medicine 06/01/15 documented as of this encounter
--- OUTSIDE RECORDS SUMMARY | 2024-07-03 09:08 | XMS_ITS | Encounter Summary ---
Author Organization [employer] Address [address] 7t [place] [address] Care Team Providers Care Assistant Property Manager Name Role Phone Name, Ananda CRANDALL Primary Care Provider [phone] Encounter Details Date Type Department Care Team (Latest Contact Info) Description 01/06/2019 Abstract [facility] CONVERSIONS Dental, Provider, DDS Social [...] 9:15 AM EDT Office Visit [facility]INE [address] [place] [address] Latrice Ibrahim MD [address] [place] [address] 07/15/2024 10:45 AM EDT Office Visit [facility] MEDICINE [address] [place] [address] [phone] Grabiel, MD Ananda [address] [place] [address] 07/17/2024 11:15 AM EDT Office Visit [facility] [address] [place], [place] [phone] Natalie Davis, OD [address] [place] [address] 07/21/2024 9:30 AM EDT Telemedicine [address] [address] Geeta Dove PharmD [address] [place] [address] 08/05/2024 9:15 AM EDT Clinical Support [address] [address] Sonali Stubbs, RN [address] [place] [address] documented as of this encounter Visit Diagnoses Not on filedocumented in this encounter Care Teams Assistant Property Manager Relationship Specialty Start Date End Date Name, MD Ananda [address] [place] [address] PCP - General Family Medicine 06/01/15 documented as of this encounter
--- OUTSIDE RECORDS SUMMARY | 2024-07-03 09:08 | XMS_ITS | Encounter Summary ---
Author Organization [employer] Address [address] 7t [place] [address] Care Team Providers Care Development Director Name Role Phone Name, Ananda CRANDALL Primary Care Provider [phone] Reason for Visit * Reason Onset Date Comments Durable Medical Equipment 09/18/2022 Encounter Details Date Type Department Care Team ([facility] st Contact Info) Description 09/18/2022 Telephone [facility] [address] [place], [place] [phone] Name, MD Ananda [address] [place] [address] Durable Medical Equipment Social History Tobacco Use [...] 09/21/2022 1:49 PM EDT Incoming call from [facility] regarding message below. [facility] PT states they have no record of pt ever going to their offices and getting PT. Unsure what next steps should be at this point. * Telephone Encounter - Christy Finn RN - 09/21/2022 1:39 PM EDT TC X1 to [facility] [phone] regarding message below. LVM to return call to nurses. * Telephone Encounter - Lauren [place] - 09/20/2022 3:14 PM EDT Tc from patient returning call back, regarding message below. Patient states he's going to PT in [facility]. [address] [place] [address] [place] [address] [address]. Mcdaniel. * Telephone Encounter - Christy [...] Description 07/08/2024 9:15 AM EDT Office Visit [facility] 230 [place] [address] Latrice Ibrahim MD [address] [place] [address] 07/15/2024 10:45 AM EDT Office Visit [facility] [address] [place] [address] Name, MD Ananda [address] [place] [address] 07/17/2024 11:15 AM EDT Office Visit [facility] [address] [place] [address] Tarka Natalie, OD [address] [place] [address] 07/21/2024 9:30 AM EDT Telemedicine [facility] [address] [place] [address] JamilahiaGeeta, PharmD [address] [place] [address] 08/05/2024 9:15 AM EDT Clinical Support [facility] [address] [place] [address] Sonali Stubbs, COREY [address] [place] [address] documented as of this encounter Visit Diagnoses Not on filedocumented in this encounter Care Teams Development Director Relationship Specialty Start Date End Date Name, MD Ananda [address] [place] [address] PCP - General Family Medicine 06/01/15 documented as of this encounter
--- OUTSIDE RECORDS SUMMARY | 2024-07-03 09:08 | XMS_ITS | Encounter Summary ---
Author Organization [employer] Address [address] 7t [place] [address] Care Team Providers Care Sap Treasury Consultant Name Role Phone Name, Ananda CRANDALL Primary Care Provider [phone] Encounter Details Date Type Department Care Team ([facility] Contact Info) Description 02/14/2022 Abstract [facility] [address] [place] [address] ProviderDamari MD Social History Tobacco Use Types [...] Date Type Department Care Team ([facility] Contact Info) Description 07/08/2024 9:15 AM EDT Office Visit [facility] [address] [place] [address] Latrice Ibrahim MD [address] [place] [address] 07/15/2024 10:45 AM EDT Office Visit [address] [address] Name, MD Ananda [address] [place] [address] 07/17/2024 11:15 AM EDT Office Visit [facility] 267 [place] [address] Natalie Davis, OD 267 [place] [address] 07/21/2024 9:30 AM EDT Telemedicine [facility] [address] [place] [address] Geeta Dove, LoretoD 230 [place] [address] 08/05/2024 9:15 AM EDT Clinical Support [facility] [address] [place] [address] Sonali Stubbs, COREY [address] [place] [address] documented as of this encounter Visit Diagnoses Not on filedocumented in this encounter Care Teams Sap Treasury Consultant Relationship Specialty Start Date End Date Name, MD Ananda [address] [place] [address] PCP - General Family Medicine 06/01/15 documented as of this encounter
--- OUTSIDE RECORDS SUMMARY | 2024-07-03 09:08 | XMS_ITS | Encounter Summary ---
Author Organization [employer] Address [address] 7t [place] [address] Care Team Providers Care Construction Site Crossing Guard Name Role Phone Name, Ananda CRANDALL Primary Care Provider Reason for Visit * Reason Comments Med Refill Encounter Details Date Type Department Care Team ([facility] Contact Info) Description 03/08/2024 Refill [facility] 230 [place], [place] [phone] Name, MD Ananda [address] [place], [place] [phone] Chronic obstructive pulmonary disease, unspecified COPD type [...] 07/08/2024 9:15 AM EDT Office Visit [facility] [address] [place] [address] Latrice Ibrahim MD [address] [place] [address] 07/15/2024 10:45 AM EDT Office Visit [address] [address] NameAnanda MD [address] [place] [address] 07/17/2024 11:15 AM EDT Office Visit [facility] [address] [place] [address] Natalie Davis, OD [address] [place] [address] 07/21/2024 9:30 AM EDT Telemedicine [address] [address] Geeta Dove, Donte [address] [place] [address] 08/05/2024 9:15 AM EDT Clinical Support [address] [address] Sonali Stubbs, RN 230 [place] [address] documented as of this encounter Visit Diagnoses Diagnosis Chronic obstructive pulmonary disease, unspecified COPD type (CMS/HCC) documented in this encounter Additional Health Concerns Assessment Noted Time PHQ-9 Depression Total Score: 10 024 9:15 AM EDT documented as of this encounter Care Teams Construction Site Crossing Guard Relationship Specialty Start Date End Date Name, MD Ananda 230 [place] [address] PCP - General Family Medicine 06/01/15 documented as of this encounter
--- OUTSIDE RECORDS SUMMARY | 2024-07-03 09:08 | XMS_ITS | Encounter Summary ---
Author Organization [employer] Address [address] 7t [place] [address] Care Team Providers Care Business Analysis Consultant Name Role Phone Name, Ananda CRANDALL Primary Care Provider [phone] Reason for Visit * Reason Onset Date Comments Appointment 09/06/2022 Encounter Details Date Type Department Care Team ([facility] Contact Info) Description 09/06/2022 Telephone [facility] ADULT DENTAL 230 [place], [place] [phone] Kelvin Haque, LENNY [address] [place] [address] Appointment Social History Tobacco Use Types Packs/Day [...] 9:15 AM EDT Office Visit [facility] MEDICINE [address] [place] [address] Latrice Ibrahim MD [address] [place] [address] 07/15/2024 10:45 AM EDT Office Visit [address] [address] Name, MD Ananda [address] [place] [address] 07/17/2024 11:15 AM EDT Office Visit [facility] OPT[facility] [address] [place] [address] Tarka, Natalie, OD [address] [place] [address] 07/21/2024 9:30 AM EDT Telemedicine [address] [address] Geeta Dove, PharmD [address] [place] [address] 08/05/2024 9:15 AM EDT Clinical Support [address] [address] Sonali Stubbs, COREY [address] [place] [address] documented as of this encounter Visit Diagnoses Not on filedocumented in this encounter Care Teams Business Analysis Consultant Relationship Specialty Start Date End Date Name, MD Ananda [address] [place] [address] PCP - General Family Medicine 06/01/15 documented as of this encounter
--- OUTSIDE RECORDS SUMMARY | 2024-07-03 09:08 | XMS_ITS | Encounter Summary ---
Author Organization [employer] Address [address] 7t [place] [address] Care Team Providers Care Commodity Specialist Name Role Phone Name, Ananda CRANDALL Primary Care Provider [phone] Encounter Details Date Type Department Care Team ([facility] Contact Info) Description 03/28/2022 Orders Only [facility] MED & PEDS [address] [place], [place] [phone] Teresa Moody LPN Social History Tobacco Use [...] Encounters Date Type Department Care Team ([facility] Contact Info) Description 07/08/2024 9:15 AM EDT Office Visit [facility] MEDICINE [address] [place] [address] [phone] Latrice Ibrahim MD 230 [place] [address] 07/15/2024 10:45 AM EDT Office Visit [facility] MEDICINE [address] [place] [address] Name, MD Ananda [address] [place] [address] 07/17/2024 11:15 AM EDT Office Visit [facility] OPT[facility] [address] [place] [address] Natalie Davis, OD [address] [place] [address] 07/21/2024 9:30 AM EDT Telemedicine [facility] MEDICINE [address] [place] [address] Geeta Dove PharmD [address] [place] [address] 08/05/2024 9:15 AM EDT Clinical Support [address] [address] Sonali Stubbs, RN [address] [place] [address] documented as of this encounter Visit Diagnoses Not on filedocumented in this encounter Care Teams Commodity Specialist Relationship Specialty Start Date End Date Name, MD Ananda [address] [place] [address] PCP - General Family Medicine 06/01/15 documented as of this encounter
--- OUTSIDE RECORDS SUMMARY | 2024-07-03 09:08 | XMS_ITS | Encounter Summary ---
Author Organization [employer] Address [address] 7t [place] [address] Care Team Providers Care Turret Press Operator Name Role Phone Name, Ananda CRANDLAL Primary Care Provider [phone] Reason for Visit * Reason Onset Date Comments case in lab 10/03/2022 Encounter Details Date Type Department Care Team ([facility] st Contact Info) Description 10/03/2022 Telephone [facility] [address] [place] [address] Kelvin Haque, DDS [address] [place] [address] case in lab Social History Tobacco Use [...] - 10/03/2022 2:29 PM EDT Hubert from [employer] called in noel that the soonest they can get case back in to office would be 10/10. They stated it is 5 business days and does not include drop off or rock picker date. Confirmed with Hubert that as of yet appt has not been scheduled to return and that I would inform officeDR documented in this encounter Plan of Treatment Upcoming Encounters Date Type Department Care Team (Late st Contact Info) Description 07/08/2024 9:15 AM EDT Office Visit [facility] MEDICINE [address] [place] [address] Latrice Ibrahim MD [address] [place] [address] 07/15/2024 10:45 AM EDT Office Visit [facility] MED[facility]INE [address] [place] [address] Ananda Spain MD [address] [place] [address] 07/17/2024 11:15 AM EDT Office Visit [facility] [address] [place] [address] Natalie Davis, OD [address] [place] [address] 07/21/2024 9:30 AM EDT Telemedicine [facility] MEDICINE [address] [place] [address] Geeta Dove, PharmD [address] [place] [address] 08/05/2024 9:15 AM EDT Clinical Support [address] [address] Sonali Stubbs, COREY [address] [place] [address] documented as of this encounter Visit Diagnoses Not on filedocumented in this encounter Additional Health Concerns Assessment Noted Time PHQ-9 Depression Total Score: 3 10/04/19 23 2:21 PM EDT documented as of this encounter Care Teams Turret Press Operator Relationship Specialty Start Date End Date Name, MD Ananda 230 [place] [address] PCP - General Family Medicine 06/01/15 documented as of this encounter
--- OUTSIDE RECORDS SUMMARY | 2024-07-03 09:08 | XMS_ITS | Encounter Summary ---
Author Organization [employer] Address [address] 7t [place] [address] Care Team Providers Care Internet Sales Manager Name Role Phone Name, Ananda CRANDALL Primary Care Provider [phone] Reason for Visit * Reason Comments Med Refill Encounter Details Date Type Department Care Team ([facility] Contact Info) Description 12/11/2023 Refill [facility] 230 [place], [place] [phone] Name, MD Ananda 230 [place] [address] Type 2 diabetes mellitus without complication, unspecified whether fpc insulin use ([facility]) Social History Tobacco Use Types [...] Description 07/08/2024 9:15 AM EDT Office Visit [address] [address] Latrice Ibrahim MD [address] [place] [address] 07/15/2024 10:45 AM EDT Office Visit [address] [address] Ananda Spain MD [address] [place] [address] 07/17/2024 11:15 AM EDT Office Visit [facility] [address] [place] [address] Natalie Davis, OD [address] [place] [address] 07/21/2024 9:30 AM EDT Telemedicine [address] [address] Geeta Dove, Donte [address] [place] [address] 08/05/2024 9:15 AM EDT Clinical Support [address] [address] Sonali Stubbs, RN 230 [place] [address] documented as of this encounter Visit Diagnoses Diagnosis Type 2 diabetes mellitus without complication, unspecified whether timber skidder insulin use ([facility]) documented in this encounter Additional Health Concerns Assessment Noted Time PHQ-9 Depression Total Score: 10 024 9:15 AM EDT documented as of this encounter Care Teams Internet Sales Manager Relationship Specialty Start Date End Date Name, MD Ananda 230 [place] [address] PCP - General Family Medicine 06/01/15 documented as of this encounter
--- OUTSIDE RECORDS SUMMARY | 2024-07-03 09:08 | XMS_ITS | Encounter Summary ---
Author Organization [employer] Address [address] 7t [place] [address] Care Team Providers Care Evaluation Analyst Name Role Phone Name, Ananda CRANDALL Primary Care Provider [phone] Reason for Visit * Reason Onset Date Comments Med Refill 07/01/2024 Encounter Details Date Type Department Care Team ([facility] st Contact Info) Description 07/01/2024 Refill [facility] MEDICINE 230 [place], [place] [phone] Sonali Stubbs, RN 230 [place] [address] Uncomplicated opioid dependence (CMS/HCC) Social History Tobacco [...] 9:15 AM EDT Office Visit [facility] MEDICINE [address] [place] [address] Latrice Ibrahim MD [address] [place] [address] 07/15/2024 10:45 AM EDT Office Visit [address] [address] Ananda Spain MD [address] [place] [address] 07/17/2024 11:15 AM EDT Office Visit [facility] OPTOMETRY [address] [place] [address] Natalie Davis, OD [address] [place] [address] 07/21/2024 9:30 AM EDT Telemedicine [facility] MEDICINE [address] [place] [address] Geeta Dove, Donte [address] [place] [address] 08/05/2024 9:15 AM EDT Clinical Support [address] [address] Sonali Stubbs, COREY 230 [place] [address] documented as of this encounter Goals Goal [...] documented as of this encounter Care Teams Evaluation Analyst Relationship Specialty Start Date End Date Name, MD Ananda 230 [place] [address] PCP - General Family Medicine 06/01/15 documented as of this encounter
--- OUTSIDE RECORDS SUMMARY | 2024-07-03 09:08 | XMS_ITS | Encounter Summary ---
Author Organization [employer] Address [address] 7t [place] [address] Care Team Providers Care Newspaper Clipper Name Role Phone Name, Ananda CRANDALL Primary Care Provider [phone] Encounter Details Date Type Department Care Team ([facility] Contact Info) Description 07/03/2024 Orders Only GENERIC EXTERNAL DATA [...] 07/08/2024 9:15 AM EDT Office Visit [facility] [address] [place] [address] Latrice Ibrahim MD [address] [place] [address] 07/15/2024 10:45 AM EDT Office Visit [address] [address] Ananda Spain MD [address] [place] [address] 07/17/2024 11:15 AM EDT Office Visit [facility] [address] [place] [address] Natalie Davis, OD 267 [place] [address] 07/21/2024 9:30 AM EDT Telemedicine [address] [address] Geeta Dove, PharmD [address] [place] [address] 08/05/2024 9:15 AM EDT Clinical Support [address] [address] Sonali Stubbs, COREY [address] [place] [address] documented as of this encounter Goals Goal [...] WHOLE BLOOD Routine 07/03/2024 8:57 AM EDT documented in this encounter Results * (ABNORMAL) Glucose, Whole Blood (07/03/2024 8:57 AM EDT) Glucose, Whole Blood 219(H) 60 - 115 mg/dL [facility] Comment:METER #: [id number] 5Testing performed in the Endocrinology Department [address] , [address], [facility]. 07/03/2024 8:57 AM EDT 07/03/2024 9:01 AM EDT us Generic External Data Provider LAB BLOOD ORDERAB LES Final Result [facility] [address] [place] [phone] documented in this encounter Visit Diagnoses Not on filedocumented in this encounter Additional Health Concerns Assessment Noted Time PHQ-9 Depression Total Score: 10 024 9:15 AM EDT documented as of this encounter Care Teams Newspaper Clipper Relationship Specialty Start Date End Date Name, MD Ananda 230 [place] [address] PCP - General Family Medicine 06/01/15 documented as of this encounter
--- OUTSIDE RECORDS SUMMARY | 2024-07-03 09:08 | XMS_ITS | Encounter Summary ---
Author Organization [employer] Address [address] 7t [place] [address] Care Team Providers Care Candle Making Supervisor Name Role Phone Name, Ananda CRANDALL Primary Care Provider [phone] Reason for Visit * Reason Onset Date Comments Durable Medical Equipment 06/08/2022 Encounter Details Date Type Department Care Team ([facility] st Contact Info) Description 06/08/2022 Telephone [facility] MED[facility]INE [address] [place], [place] [phone] Name, MD Ananda [address] [place] [address] Durable Medical Equipment Social History Tobacco Use [...] states unable to get a hold of nursing unit coordinator and would like to know if PCP can send script directly to [facility] . Please contact at [phone] * Telephone Encounter - Arleen Ramirez - 06/11/2022 11:28 AM EDT TC to patient and informed him to contact his health care marketing manager as a script for a recliner was emailed to her previously. Patient understood and agreed with plan. * Telephone Encounter - Darian Joiner - 06/08/2022 4:29 PM EDT Tc from pt requesting a script for a recliner chair to be send to [facility] please contact pt at [phone] documented in this encounter Plan of Treatment Upcoming Encounters Date Type Department Care Team (Late st Contact Info) Description 07/08/2024 9:15 AM EDT Office Visit [facility] MEDICINE [address] [place] [address] Latrice Ibrahim MD [address] [place] [address] 07/15/2024 10:45 AM EDT Office Visit [facility] [address] [place] [address] Name, MD Ananda [address] [place] [address] 07/17/2024 11:15 AM EDT Office Visit [facility] OPTOMETRY [address] [place] [address] Natalie Davis OD [address] [place] [address] 07/21/2024 9:30 AM EDT Telemedicine [facility] MEDICINE [address] [place] [address] Geeta Dove, PharmD [address] [place] [address] 08/05/2024 9:15 AM EDT Clinical Support [facility] [address] [place] [address] Sonali Stubsb, RN [address] [place] [address] documented as of this encounter Visit Diagnoses Not on filedocumented in this encounter Care Teams Candle Making Supervisor Relationship Specialty Start Date End Date Name, MD Ananda [address] [place] [address] PCP - General Family Medicine 06/01/15 documented as of this encounter
--- OUTSIDE RECORDS SUMMARY | 2024-07-03 09:08 | XMS_ITS | Encounter Summary ---
Author Organization [employer] Address [address] [facility] [facility] [address] 7t [place] [address] Care Team Providers Care Apple Picker Name Role Phone Name, Ananda CRANDALL Primary Care Provider [phone] Reason for Visit * Reason Onset Date Comments ER Follow-up 09/26/2022 Encounter Details Date Type Department Care Team ([facility] st Contact Info) Description 09/26/2022 Telephone [facility] [address] [place], [place] [phone] Name, MD Ananda 230 [place] [address] ER Follow-up Social History Tobacco Use Types [...] to pt. Through pacific interpreters id - [id number] for below message, pt. Has surgery at [facility] for non - pressure chronic ulcer of [...] in case of any new or worseningsymptoms. [facility] hours are reviewed. * Telephone Encounter - Hawa Morales - 10/01/2022 9:35 AM EDT Tc from pt returning call regarding message below. Please contact pt at [phone] (north korean speaker) * Telephone Encounter - Em Leblanc RN - 09/27/2022 3:29 PM EDT T/C to pt. On [phone] through [employer] id - [id number] for status check and to schedule follow up apt. No answer. LVM to call back on [phone]. * Telephone Encounter - Netta Alvares - 09/26/2022 11:04 AM EDT Tc from pt calling to advise PCP of an ER visit to [facility] on 09/24/22 for surgery on the left leg. Pt advised will forward to team nurse for f/u. Please contact pt at [phone] (Bermudian) documented in this encounter Plan of Treatment Upcoming Encounters Date Type Department Care Team ([facility] st Contact Info) Description 07/08/2024 9:15 AM EDT Office Visit [facility] MED[facility] [address] [place] [address] Latrice Ibrahim MD [address] [place] [address] 07/15/2024 10:45 AM EDT Office Visit [address] [address] Name, MD Ananda [address] [place] [address] 07/17/2024 11:15 AM EDT Office Visit [facility] OPTOMETRY [address] [place] [address] Natalie Davis, OD [address] [place] [address] 07/21/2024 9:30 AM EDT Telemedicine [facility]INE [address] [place] [address] Geeta Dove, PharmD [address] [place] [address] 08/05/2024 9:15 AM EDT Clinical Support [address] [address] Sonali Stubbs, RN [address] [place] [address] documented as of this encounter Visit Diagnoses Not on filedocumented in this encounter Care Teams Apple Picker Relationship Specialty Start Date End Date NameAnanda MD [address] [place] [address] PCP - General Family Medicine 06/01/15 documented as of this encounter
== END 2024-07-03 09:21 | disposition home or self-care (01) ==
LOC: HO.ENCR 08:42
PROVIDERS: PCP Internal Medicine Geriatric Medicine; Visit Provider Nurse Practitioner Adult Health
DX: E13.9 Other specified diabetes mellitus without complications (principal)
CPT/HCPCS: 99214; G2211

== ENCOUNTER → 2024-07-03 08:41 | Outpatient (BNVA) | payer OTHER, SELFPAY | PROVIDERS: PCP Internal Medicine Geriatric Medicine; Visit Provider Nurse Practitioner Adult Health | DX: E13.9 Other specified diabetes mellitus without complications (principal); F17.210 Nicotine dependence, cigarettes, uncomplicated; Z79.4 Long term (current) use of insulin; Z79.899 Other long term (current) drug therapy | CPT/HCPCS: 82947; 99212 ==

== ENCOUNTER 2024-07-22 08:37 | Outpatient (AMB) | payer OTHER, SELFPAY ==
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
--- OUTSIDE RECORDS SUMMARY | 2024-07-22 09:54 | XMS_ITS | Encounter Summary ---
Author Organization [employer] Address [address] [facility] 7t [place] [address] Care Team Providers Care Vacuum Cleaner Mechanic Name Role Phone Name, Ananda CRANDALL Primary Care Provider [phone] Geeta Dove PharmD Unavailable [phone] Reason for Visit * Reason Comments Med Refill Encounter Details Date Type Department Care Team ([facility] Contact Info) Description 04/25/2022 Refill [facility] MEDICINE [address] [place] [address] [phone] Name, MD Ananda [address] [place] [address] Wheezing (Primary Dx) Social History Tobacco Use [...] Department Care Team ([facility] Contact Info) Description 08/05/2024 9:15 AM EDT Clinical Support [facility] MEDICINE [address] [place] [address] Sonali Stubbs, RN [address] [place] [address] 08/18/2024 10:30 AM EDT Medication Management [facility] MED[facility]INE [address] [place] [address] Geeta Dove PharmD [address] [place] [address] documented as of this encounter Visit Diagnoses Diagnosis Wheezing- Primary documented in this encounter Care Teams Vacuum Cleaner Mechanic Relationship Specialty Start Date End Date Name, MD Ananda [address] [place] [address] [phone] PCP - General Family Medicine 06/01/15 Geeta Dove PharmD [address] [place] [address] Pharmacist Internal Medicine 07/21/24 documented as of this encounter
--- OUTSIDE RECORDS SUMMARY | 2024-07-22 09:54 | XMS_ITS | Encounter Summary ---
Author Organization [employer] Address [address] 7t [place] [address] Care Team Providers Care Twx Operator Name Role Phone Name, Ananda CRANDALL Primary Care Provider [phone] Geeta Dove PharmD Unavailable [phone] Encounter Details Date Type Department Care Team ([facility] st Contact Info) Description 03/28/2023 Abstract [facility] MEDICINE [address] [place], [place] [phone] Name, MD Ananda [address] [place] [address] Social History Tobacco Use Types Packs/Day Years [...] Care Team (Late st Contact Info) Description 08/05/2024 9:15 AM EDT Clinical Support [address] [address] Sonali Stubbs, COREY [address] [place] [address] 08/18/2024 10:30 AM EDT Medication Management [address] [address] Geeta Dove, PharmD [address] [place] [address] documented as of this encounter Visit Diagnoses Not on filedocumented in this encounter Additional Health Concerns Assessment Noted Time PHQ-9 Depression Total Score: 3 10/04/19 23 2:21 PM EDT documented as of this encounter Care Teams Twx Operator Relationship Specialty Start Date End Date Name, MD Ananda [address] [place] [address] PCP - General Family Medicine 06/01/15 Geeta Dove, PharmD [address] [place] [address] Pharmacist Internal Medicine 07/21/24 documented as of this encounter
--- OUTSIDE RECORDS SUMMARY | 2024-07-22 09:54 | XMS_ITS | Encounter Summary ---
Author Organization [employer] Address [address] [facility] 7t [place] [address] Care Team Providers Care Tuyere Fitter Name Role Phone Name, Ananda CRANDALL Primary Care Provider [phone] Geeta Dove PharmD Unavailable [phone] Reason for Visit * Reason Onset Date Comments Prior Authorization 05/07/2022 Appointment 05/07/2022 Encounter Details Date Type Department Care Team (Late st Contact Info) Description 05/07/2022 Telephone [facility] D[facility] [address] [place], [place] [phone] Kelvin Haque DDS [address] [place], [place] [phone] Prior Authorization; Appointment Social History Tobacco Use [...] if for partial. Don't see if [facility] has approved partials for patient. Patient verifying. DR documented in this encounter Plan of Treatment Upcoming Encounters Date Type Department Care Team (Late st Contact Info) Description 08/05/2024 9:15 AM EDT Clinical Support [address] [address] Sonali Stubbs, COREY [address] [place] [address] 08/18/2024 10:30 AM EDT Medication Management [address] [address] Geeta Dove PharmD [address] [place] [address] documented as of this encounter Visit Diagnoses Not on filedocumented in this encounter Care Teams Tuyere Fitter Relationship Specialty Start Date End Date Name, MD Ananda [address] [place] [address] PCP - General Family Medicine 06/01/15 Geeta Dove PharmD [address] [place] [address] Pharmacist Internal Medicine 07/21/24 documented as of this encounter
--- OUTSIDE RECORDS SUMMARY | 2024-07-22 09:54 | XMS_ITS | Encounter Summary ---
Author Organization [employer] Address [address] [facility] 7t [place] [address] Care Team Providers Care Rural Sociologist Name Role Phone Name, Ananda CRANDALL Primary Care Provider [phone] Geeta Dove PharmD Unavailable [phone] Encounter Details Date Type Department Care Team (Late Contact Info) Description 02/14/[address] [facility] MEDICINE [address] [place] [address] [phone] ProviderDamari MD Social History Tobacco Use Types [...] Department Care Team (Late Contact Info) Description 08/05/2024 9:15 AM EDT Clinical Support [facility] MED[facility]INE [address] [place] [address] Sonali Stubbs, COREY [address] [place] [address] 08/18/2024 10:30 AM EDT Medication Management [facility] MED[facility]INE [address] [place] [address] Geeta Dove PharmD [address] [place] [address] documented as of this encounter Visit Diagnoses Not on filedocumented in this encounter Care Teams Rural Sociologist Relationship Specialty Start Date End Date Name, MD Ananda [address] [place] [address] PCP - General Family Medicine 06/01/15 Geeta Dove PharmD 230 [place] [address] Pharmacist Internal Medicine 07/21/24 documented as of this encounter
--- OUTSIDE RECORDS SUMMARY | 2024-07-22 09:54 | XMS_ITS | Encounter Summary ---
Author Organization [employer] Address [address] [facility] 7t [place] [address] Care Team Providers Care Integration Director Name Role Phone Name, Ananda CRANDALL Primary Care Provider [phone] Geeta Dove PharmD Unavailable [phone] Encounter Details Date Type Department Care Team (Late Contact Info) Description 05/10/2022 Orders Only [facility] MEDICINE [address] [place] [address] [phone] Alis Zavala RN Uncomplicated opioid dependence (CMS/[facility]) Social History Tobacco Use [...] 9:15 AM EDT Clinical Support [facility] [address] [place] [address] Sonali Stubbs, COREY 230 [place] [address] 08/18/2024 10:30 AM EDT Medication Management [facility] 230 [place] [address] Geeta Dove PharmD 230 [place] [address] documented as of this encounter Visit Diagnoses Diagnosis Uncomplicated opioid dependence (CMS/HCC) documented in this encounter Care Teams Integration Director Relationship Specialty Start Date End Date Name, MD Ananda [address] [place] [address] PCP - General Family Medicine 06/01/15 Geeta Dove PharmD [address] [place] [address] Pharmacist Internal Medicine 07/21/24 documented as of this encounter
--- OUTSIDE RECORDS SUMMARY | 2024-07-22 09:54 | XMS_ITS | Encounter Summary ---
Author Organization [employer] Address [address] [facility] [address] [address] 7t [place] [address] Care Team Providers Care Forms Analyst Name Role Phone NameAnanda MD Primary Care Provider [phone] Geeta Dove PharmD Unavailable [phone] Reason for Visit * Reason Comments Med Refill Encounter Details Date Type Department Care Team ([facility] st Contact Info) Description 02/28/2023 Refill [facility] 230 [place], [place] [phone] Name, MD Ananda 230 [place], [place] [phone] Pain of left leg Social History Tobacco [...] Description 08/05/2024 9:15 AM EDT Clinical Support [address] [address] Sonali Stubbs, RN [address] [place] [address] 08/18/2024 10:30 AM EDT Medication Management [address] [address] Geeta Dove, PharmD [address] [place] [address] documented as of this encounter Visit Diagnoses Diagnosis Pain of left leg documented in this encounter Additional Health Concerns Assessment Noted Time PHQ-9 Depression Total Score: 3 10/04/19 23 2:21 PM EDT documented as of this encounter Care Teams Forms Analyst Relationship Specialty Start Date End Date Name, MD Ananda [address] [place] [address] PCP - General Family Medicine 06/01/15 Geeta Dove PharmD [address] [place] [address] Pharmacist Internal Medicine 07/21/24 documented as of this encounter
--- OUTSIDE RECORDS SUMMARY | 2024-07-22 09:55 | XMS_ITS | Encounter Summary ---
Author Organization [employer] Address [address] [facility] [address] [facility] [address] 7[address] [place] [address] Care Team Providers Care Technical Service Specialist Name Role Phone Name, Ananda CRANDALL Primary Care Provider [phone] Geeta Dove PharmD Unavailable [phone] Encounter Details Date Type Department Care Team (Late Contact Info) Description 03/28/2022 Orders Only [facility] [address] [place] [address] Teresa Moody LPN Social History Tobacco Use [...] Upcoming Encounters Date Type Department Care Team ([facility] Contact Info) Description 08/05/2024 9:15 AM EDT Clinical Support [facility] [address] [place] [address] Sonali Stubbs, COREY 230 [place] [address] 08/18/2024 10:30 AM EDT Medication Management [facility] [address] [place] [address] Geeta Dove PharmD 230 [place] [address] documented as of this encounter Visit Diagnoses Not on filedocumented in this encounter Care Teams Technical Service Specialist Relationship Specialty Start Date End Date Name, MD Ananda [address] [place] [address] PCP - General Family Medicine 06/01/15 Geeta Dove PharmD [address] [place] [address] Pharmacist Internal Medicine 07/21/24 documented as of this encounter
--- OUTSIDE RECORDS SUMMARY | 2024-07-22 09:55 | XMS_ITS | Encounter Summary ---
Author Organization [employer] Address [address] [facility] 7t [place] [address] Care Team Providers Care Vp Global Name Role Phone Name, Ananda CRANDALL Primary Care Provider [phone] Geeta Dove PharmD Unavailable [phone] Reason for Visit * Reason Comments Med Refill Encounter Details Date Type Department Care Team (Late st Contact Info) Description 12/07/[address] [facility] [address] [place], [place] [phone] Name, MD Ananda 230 [place] [address] Type 2 diabetes mellitus without complication, unspecified whether mcc insulin use ([facility]); Type 2 diabetes mellitus without complication, with long-term current use of insulin ([facility]) Social History Tobacco Use Types Packs/Day [...] Description 08/05/2024 9:15 AM EDT Clinical Support [facility] [address] [place] [address] Sonali Stubbs, RN [address] [place] [address] 08/18/2024 10:30 AM EDT Medication Management [facility] [address] [place] [address] Geeta Dove PharmD [address] [place] [address] documented as of this encounter Visit Diagnoses Diagnosis Type 2 diabetes mellitus without complication, unspecified whether mcc insulin use ([facility]) documented in this encounter Additional Health Concerns Assessment Noted Time PHQ-9 Depression Total Score: 3 10/04/19 23 2:21 PM EDT documented as of this encounter Care Teams Vp Global Relationship Specialty Start Date End Date Name, MD Ananda [address] [place] [address] PCP - General Family Medicine 06/01/15 Geeta Dove PharmD [address] [place] [address] Pharmacist Internal Medicine 07/21/24 documented as of this encounter
--- OUTSIDE RECORDS SUMMARY | 2024-07-22 09:56 | XMS_ITS | Encounter Summary ---
Author Organization [employer] [facility] Address [address] [facility] 7t [place] [address] Care Team Providers Care Forecast Analyst Name Role Phone Name, Ananda CRANDALL Primary Care Provider [phone] Geeta Dove PharmD Unavailable [phone] Encounter Details Date Type Department Care Team (Latest Contact Info) Description 01/09/2021 Abstract [facility] CONVERSIONS Dental, Provider, DDS Social [...] Upcoming Encounters Date Type Department Care Team ([facility] st Contact Info) Description 08/05/2024 9:15 AM EDT Clinical Support [facility] MEDICINE [address] [place] [address] Sonali Stubbs, RN [address] [place] [address] 08/18/2024 10:30 AM EDT Medication Management [facility] MEDICINE [address] [place] [address] Geeta Dove, PharmD 230 [place] [address] documented as of this encounter Visit Diagnoses Not on filedocumented in this encounter Care Teams Forecast Analyst Relationship Specialty Start Date End Date Name, MD Ananda 230 [place] [address] PCP - General Family Medicine 06/01/15 Geeta Dove PharmD 230 [place] [address] Pharmacist Internal Medicine 07/21/24 documented as of this encounter
--- OUTSIDE RECORDS SUMMARY | 2024-07-22 09:56 | XMS_ITS | Encounter Summary ---
Author Organization [employer] Address 75 [facility] 7t [place] [address] Care Team Providers Care Scada Operator Name Role Phone Name, Ananda CRANDALL Primary Care Provider [phone] Geeta Dove PharmD Unavailable [phone] Reason for Visit * Reason Comments Med Refill Encounter Details Date Type Department Care Team ([facility] st Contact Info) Description 03/08/2024 Refill [facility] MEDICINE [address] [place], [place] [phone] Name, MD Ananda [address] [place] [address] Chronic obstructive pulmonary disease, unspecified COPD type [...] Clinical Support [facility] MEDICINE [address] [place] [address] Sonali Stubbs, COREY [address] [place] [address] 08/18/2024 10:30 AM EDT Medication Management [address] [address] Geeta Dove PharmD [address] [place] [address] documented as of this encounter Visit Diagnoses Diagnosis Chronic obstructive pulmonary disease, unspecified COPD type (CMS/HCC) documented in this encounter Additional Health Concerns Assessment Noted Time PHQ-9 Depression Total Score: 10 024 9:15 AM EDT documented as of this encounter Care Teams Scada Operator Relationship Specialty Start Date End Date Name, MD Ananda [address] [place] [address] PCP - General Family Medicine 06/01/15 Geeta Dove, PharmD [address] [place] [address] Pharmacist Internal Medicine 07/21/24 documented as of this encounter
--- OUTSIDE RECORDS SUMMARY | 2024-07-22 09:56 | XMS_ITS | Encounter Summary ---
Author Organization [employer] Address [address] [facility] [address] 7t [place] [address] Care Team Providers Care Manager Management Name Role Phone Name, Ananda CRANDALL Primary Care Provider [phone] Encounter Details Date Type Department Care Team ([facility] Contact Info) Description 07/17/2024 11:15 AM EDT Office Visit C OPTOMETRY [address] [place], [place] [phone] TarNatalie elizabeth, OD [address] [place], [place] [phone] Reduced visual acuity (Primary Dx) Social History Tobacco Use Types Packs/Day Years Used Date Smoking Tobacco: Every Day Cigarettes Passive Smoke Exposure: Current Smokeless Tobacco: Never Alcohol Use Standard Drinks/Week Comments Never 0 (1 standard drink = 0.6 oz pur e alcohol) Depression Answer Date Recorded Patient Health Questionnaire-9 Score 5 07/15/2024 Patient Health Questionnaire-9 Score 5 07/15/2024 Last PHQ-9: Questionnaire Data Not on file 0 07/15/2024 Housing Stability Answer Date Recorded What is your housing situation today? I have rosaura salmon 07/15/[address] you li ve. Do you have problems with any of the following? I am not sure 07/15/2024 Food Insecurity Answer Date Recorded Within the past 12 months, y ou worried that your food would run out before you got money to buy more: Sometimes True 2024 Within the past 12 months,th e food you bought just didn't last and you didn't have enough money to get more: Sometimes True 07/15/2024 Transportation Answer Date Recorded In the past 12 months, has l ack of transportation kept you from medical appts, meetings, work or from getting things needed for daily living? Yes, it has kept me from medical appointments or getting medications. 07/15/2024 Utilities Answer Date Recorded In the past 12 months, has t he electric, gas, oil or water company threatened to shut off services in your home? No 07/15/2024 Depression Answer Date Recorded Patient Health Questionnaire-2 Score 1 07/15/2024 Internet Access Answer Date Recorded Internet Access Q1 Yes 07/15/2024 Internet Access Q2 Not on file 07/15/2024 Sex and Gender Information Value Date Recorded Sex Assigned at Male 01/01/2022 10:14 AM EDT Legal Sex Male 10:14 AM EDT Gender Identity Male 01/01/2022 10:14 AM EDT Sexual Orientation Straight 01/01/2022 10 :14 AM EDT documented as of this encounter Plan of Treatment Upcoming Encounters Date Type Department Care Team (Late st Contact Info) Description 08/05/2024 9:15 AM EDT Clinical Support [address] [address] Sonali Stubbs, COREY [address] [place] [address] 08/18/2024 10:30 AM EDT Medication Management [address] [address] Geeta Dove, PharmD [address] [place] [address] documented as of this encounter Goals Goal Patient Goal Type Associated Problems Recent Progress Patient-Stated? Author Increase coping skills to promote long-term recovery and improve ability to perform daily activities General On track( 025 9:58 AM EDT) No Sonali Stubbs, RN Reduce tobacco use (cigarettes, smokeless, etc) Tobacco Use On track( 025 9:58 AM EDT) No Sonali Stubbs, RN Note: 1-2 cigs per day documented as of this encounter Procedures Procedure Name Priority Date/Time Associated Diagnosis Comments OCT, RETINA - OU - BOTH EYES Routine 07/17/2024 1:28 PM EDT Reduced visual acuity documented in this encounter Results * OCT, Retina - OU - Both Eyes (07/17/2024 1:28 PM EDT) Result [facility] Natalie Davis OD OPHTH TOMOGRAPHY Final Result documented in this encounter Visit Diagnoses Diagnosis Reduced visual acuity- Primary documented in this encounter Additional Health Concerns Assessment Noted Time PHQ-9 Depression Total Score: 5 07/16/19 25 11:03 AM EDT documented as of this encounter Care Teams Manager Management Relationship Specialty Start Date End Date Name, MD Ananda [address] [place] [address] PCP - General Family Medicine 06/01/15 documented as of this encounter
--- OUTSIDE RECORDS SUMMARY | 2024-07-22 09:56 | XMS_ITS | Encounter Summary ---
Author Organization [employer] [facility] Address 75 [facility] 7t [place] [address] Care Team Providers Care Bullet Swaging Machine Operator Name Role Phone Name, Ananda CRANDALL Primary Care Provider [phone] Geeta Dove PharmD Unavailable [phone] Encounter Details Date Type Department Care Team (Latest Contact Info) Description 01/06/2019 Abstract [facility] CONVERSIONS Dental, Provider, DDS Social History Tobacco [...] Upcoming Encounters Date Type Department Care Team ([facility] st Contact Info) Description 08/05/2024 9:15 AM EDT Clinical Support [facility] MEDICINE [address] [place] [address] Sonali Stubbs, RN [address] [place] [address] 08/18/2024 10:30 AM EDT Medication Management [facility] MEDICINE [address] [place] [address] Geeta Dvoe, PharmD [address] [place] [address] documented as of this encounter Visit Diagnoses Not on filedocumented in this encounter Care Teams Bullet Swaging Machine Operator Relationship Specialty Start Date End Date Name, MD Ananda [address] [place] [address] PCP - General Family Medicine 06/01/15 Geeta Dove PharmD [address] [place] [address] Pharmacist Internal Medicine 07/21/24 documented as of this encounter
--- OUTSIDE RECORDS SUMMARY | 2024-07-22 09:57 | XMS_ITS | Encounter Summary ---
Author Organization [employer] Address 75 [facility] 7t [place] [address] Care Team Providers Care Pressed Or Blown Glass Worker Name Role Phone Name, Ananda CRANDALL Primary Care Provider [phone] Geeta Dove PharmD Unavailable [phone] Reason for Visit * Consultation (Routine) - Canceled Specialty Diagnoses / Procedures Referred By Contac t Referred To Contact Pharmacy Diagnoses COPD exacerbation ([facility]) Name, MD Ananda [address] [place] [address] Phone: tel: fax: Referral ID Status Reason Start Date Expiration Date V isits Requested Visits Authorized [id number] Canceled Consult and Treat 04/16/2024 04/16/2025 6 6 Encounter Details Date Type Department Care Team ([facility] Contact Info) Description 07/21/2024 9:30 AM EDT Telemedicine [facility] [address] [place], [place] [phone] Geeta Dove, PharmD [address] [place], [place] [phone] Tobacco dependence (Primary Dx) Social History Tobacco Use Types Packs/Day Years Used Date Smoking Tobacco: Every Day Cigarettes 2.8 14 Started: 07/21/2010 Passive Smoke Exposure: Current Smokeless Tobacco: Never Tobacco Cessation:Ready to Q uit: Yes; Counseling Given: Yes Alcohol Use Standard Drinks/Week Comments Never 0 [...] as of this encounter Progress Notes * Geeta Dove PharmD - 07/21/2024 9:30 AM EDT Pharmacy Consult Visit Type: CDTM (referral expires 06/10/25) Pharmacist: Geeta Dove PharmD Hubert Rios is a 59 y.o. year old patient here for new patient visit completed over the phone. Subjective History: General / Intake (updated 07/21/24) Allergies: has no known allergies. Read/Write: Yes, in Rwandan (but limited per patient report) Recent Hospitalizations: No Social History as reported by patient: Tobacco: Current, see discussion below Alcohol: Denies Caffeine: Current, 1 cup of coffee daily QAM Illicit drugs: Denies; tx with Suboxone via [facility] program x15 years Adherence / patient self-management Takes from vials Denies missed doses or purposeful omission of any medication d/t suspected PAULA Refill history demonstrates adherence. 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 Regardless, he is followed by [facility] endocrinology & is not a candidate for CDTM-DM as a result. Smoking cessation Past Medical History: Negative for: depression, seizure disorder, chest pain, eating disorder, suicidal ideation Positive for neuropsychiatric disorder (dx: mood disorder), COPD Patient follows closely with his counselor and his psychiatric prescriber (Cam Barron). He reports that he is well maintained on his current medications and that no doses/meds have been modified recently. Smoking History Reports smoking 3 ppd for 14 years. Currently smoking 2 cigarettes per day. First cigarette greater than 30 minutes of waking. Denies smoking in the home, awaking at night to smoke. Endorses triggers such as daily/AM routine, coffee use CT scan completed 07/02/24: Mild emphysema. Chronic lung changes as described. No acute abnormality is identified . Consider referral next year for annual screening with LDCT per USPSTF recommendation given the patient is between 50-80 years old, has 20 pack-year smoking history and currently smokes. Past Quit Attempts Endorses multiple previous quit attempts, most recent quit attempt was 1 yr ago, longest quit attempt lasted 1 mo Tried nicotine patches, nicotine lozenges, and nicotine gum to quit previously Patch, gum, lozenge didn't do anything // never used it combo but not interested in trialing thisd/t poor previous success with these agents. Per chart review, used Chantix in 2019 w/o documentation of PAULA. Current Quit Attempt Motivational factors for cessation: improved respiratory health, reduced cost Barriers to cessation: fear of failing again Patient declares readiness to quit is a 10 out of 10 Patient would, ideally, like to set a quit date for this Monday 07/24. 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, MRI Q6 mo), mood disorder, opioid dependence, COPD, lung nodules Medication: n/a Recent labs: Lab Results Component Value Date ALT 28 05/27/2024 AST 38 (H) 05/27/2024 LDLCHOLCAL 75 05/27/2024 TRIG 73 05/27/2024 K 3.6 05/27/2024 NA 146 (H) 05/27/2024 VITB12 386 08/23/2023 MICROALBCREU 11.8 05/29/2024 CREATININE 0.73 05/27/2024 EGFR >60 05/27/2024 HGBA1C 8.1 (A) 07/15/2024 HGBA1C 8.3 (H) 05/27/2024 HGBA1C 8.8 (A) 04/16/2024 Recent blood pressure readings: BP Readings from Last 4 Encounters: 07/15/24 128/78 07/07/24 106/72 06/26/24 126/88 06/19/24 (!) 158/91 Pulse Readings from Last 4 Encounters: 07/15/24 94 07/07/24 92 06/26/24 96 06/19/24 102 Immunizations Due: The following gaps identified but not discussed today (televisit); revisit at next in person apt Shingrix series (age > 50 yo) - overdue for dose #2 of 2 to complete series Tetanus (q10 yrs) - due on/after 08/14/24 Preferred Pharmacy: [facility] - [facility] Mazariegos - [address] [address] Assessment/Plan: Smoking Cessation (Stage: Preparation) Pharmacotherapy: None currently Goals of therapy per the [facility] Treating Tobacco Use and Dependence Clinical Practice Guideline: Achieve cessation via pharmacologic & non-pharmacologic intervention Plan: Start Varenicline 0.5 mg daily on days 1-3, 0.5 mg twice daily on days 4-7 then 1 mg twice daily x12-24 total weeks of therapy to achieve tobacco cessation. Patient does not have any contradiction touse. Discussed taper instructions & target quit date between days 8 & 35, per product labeling. Patient confirmed understanding. Discussed potential PAULA including nausea, insomnia, dream disturbance and rare but serious AE of depression, suicidal ideation. Patient verbalized understanding; will discontinue med & reach out to provider team immediately if PAULA occur. Patient to follow up in CDTM in 4 weeks for ongoing support. documented in this encounter Plan of Treatment Upcoming Encounters Date Type Department Care Team (Late st Contact Info) Description 08/05/2024 9:15 AM EDT Clinical Support [facility] MEDICINE [address] [place] [address] Sonali Stubbs, RN [address] [place] [address] 08/18/2024 10:30 AM EDT Medication Management [address] [address] Geeta Dove PharmD [address] [place] [address] documented as of this encounter Goals Goal Patient Goal Type Associated Problems Recent Progress Patient-Stated? Author Increase coping skills to promote long-term recovery and improve ability to perform daily activities General On track( 9:58 AM EDT) No Sonali Sutbbs, RN Reduce tobacco use (cigarettes, smokeless, etc) Tobacco Use On track( 025 9:58 AM EDT) No Sonali Stubbs, RN Note: 1-2 cigs per day documented as of this encounter Visit Diagnoses Diagnosis Tobacco dependence- Primary Tobacco use disorder documented in this encounter Additional Health Concerns Assessment Noted Time PHQ-9 Depression Total Score: 5 07/16/19 11:03 AM EDT documented as of this encounter Care Teams Pressed Or Blown Glass Worker Relationship Specialty Start Date End Date Name, MD Ananda [address] [place] [address] PCP - General Family Medicine 06/01/15 Geeta Dove PharmD [address] [place] [address] Pharmacist Internal Medicine 07/21/24 documented as of this encounter
--- OUTSIDE RECORDS SUMMARY | 2024-07-22 09:57 | XMS_ITS | Encounter Summary ---
Author Organization [employer] Address 75 [facility] 7t [place] [address] Care Team Providers Care Mainspring Reverse Winder Name Role Phone Name, Ananda CRANDALL Primary Care Provider [phone] Geeta Dove PharmD Unavailable [phone] Reason for Visit * Reason Comments Med Refill Encounter Details Date Type Department Care Team ([facility] st Contact Info) Description 07/21/2024 Refill [facility] MEDICINE [address] [place], [place] [phone] So Lebron MD [address] [place], [place] [phone] Type 2 diabetes mellitus with hyperglycemia, with long-term current use of insulin ([facility]) Social History Tobacco Use Types [...] Description 08/05/2024 9:15 AM EDT Clinical Support [address] [address] Sonali Stubbs, RN [address] [place] [address] 08/18/2024 10:30 AM EDT Medication Management [facility] MEDICINE [address] [place] [address] Geeta Dove, PharmD [address] [place] [address] documented as of this encounter Goals Goal Patient Goal Type Associated Problems Recent Progress Patient-Stated? Author Increase coping skills to promote long-term recovery and improve ability to perform daily activities General On track( 9:58 AM EDT) No Sonali Stubbs, RN Reduce tobacco use (cigarettes, smokeless, etc) Tobacco Use On track( 9:58 AM EDT) No Sonali Stubbs, RN Note: 1-2 cigs per day documented as of this encounter Visit Diagnoses Diagnosis Type 2 diabetes mellitus with hyperglycemia, with long-term current use of insulin ([facility]) documented in this encounter Additional Health Concerns Assessment Noted Time PHQ-9 Depression Total Score: 5 07/16/19 11:03 AM EDT documented as of this encounter Care Teams Mainspring Reverse Winder Relationship Specialty Start Date End Date Name, MD Ananda [address] [place] [address] PCP - General Family Medicine 06/01/15 Geeta Dove PharmD [address] [place] [address] Pharmacist Internal Medicine 07/21/24 documented as of this encounter
--- OUTSIDE RECORDS SUMMARY | 2024-07-22 09:57 | XMS_ITS | Encounter Summary ---
Author Organization [employer] Address 75 [facility] 7t [place] [address] Care Team Providers Care Invas Tech Name Role Phone Name, Ananda CRANDALL Primary Care Provider [phone] Geeta Dove PharmD Unavailable [phone] Reason for Visit * Reason Onset Date Comments Appointment 09/06/2022 Encounter Details Date Type Department Care Team ([facility] st Contact Info) Description 09/06/2022 Telephone [facility] ADULT DENTAL [address] [place] [address] Kelvin Haque DDS [address] [place] [address] Appointment Social History Tobacco Use Types Packs/Day [...] Description 08/05/2024 9:15 AM EDT Clinical Support [address] [address] Sonali Stubbs, RN [address] [place] [address] 08/18/2024 10:30 AM EDT Medication Management [address] [address] Geeta Dove PharmD [address] [place] [address] documented as of this encounter Visit Diagnoses Not on filedocumented in this encounter Care Teams Invas Tech Relationship Specialty Start Date End Date Name, MD Ananda [address] [place] [address] PCP - General Family Medicine 06/01/15 Geeta Dove PharmD [address] [place] [address] Pharmacist Internal Medicine 07/21/24 documented as of this encounter
--- OUTSIDE RECORDS SUMMARY | 2024-07-22 09:57 | XMS_ITS | Data Portability ---
Author Organization [employer] [place] [place] [facility] Address [address] [place] [phone] Care Team Providers Care Wheel Truer Name Role Phone HIM CCA OTHER Assessment Encounter Date Assessment Date Assessment LastModified by Organization Details LastModified Time 04/23/2024 04/23/2024 I have reviewed and agree with the assessment and plan as documented by the probation and parole officer. I provided real-time medical direction for this encounter and was immediately available to provide additional phone-based assistance as needed. History as noted in EMR and by probation and parole officer. I would add / emphasize: Patient seen [...] this. Patient was in agreement transported to [facility] subsequently. pallfather Not available 04/24/2024 14:02:36 Plan of Treatment Reminders Order Date Submit Date Provider Last Modified By Organization Details Last Modified Time Details Appointments None recorded. Lab rapid SARS CoV 2 Ag, QL IA, respiratory specimen [address], [id number] 5 14:47:38 rapid flu (A+B) [address], [id number] 5 14:47:39 Referral None recorded. Procedures None [...] SNOMED-CT Code Diagnosis ICD10 Code Diagnosis Note [id number] Dillon Galeano MD Main - [facility] [address] [place] [address] 04/23/2024 18:36:39 04/24/2024 20:56:44 Hypoxemia [id number] R09.02 Health Concerns Section Related Observation LastModified by Organization Detai ls LastModified Time None Recorded Concern Status LastModified by Organization Details LastModified Time None Recorded Advance Directives Directive None Recorded Payers Insurance Date Sequence Insurance Name Policy Number Policy Tomlin Covered Member ID Tomlin Member ID Guarantor Name 04/23/2024 1 [facility] - DOS ON OR AFTER 2022 - DUAL ELIGIBLE - LONG TERM OPTIONS AND ONE CARE (MEDICARE REPLACEMENT/ADV ANTAGE - HMO) Hubert Rios [id number] Hubert Rios Notes Date Note Type Note [...] does not report any new symptoms- NE Head Sugar Reprocess Operator Organization Information for [employer] Business Legal Name: [employer]? Address: [address] [place] [address], [place] [address], Military Pilot: Gucci VELEZ No.: [id number] Head Sugar Reprocess Operator POC Test Results from [employer] Rapid COVID antigen (18:34:09) COVID: - Attachments uploaded as part of this test result can be found under Documents section. Rapid influenza antigen (18:34:10) Flu: - Attachments uploaded as part of this test result can be found under Documents section. .................. .................. .................. .................. .................. .................. .................. ............... Head Sugar Reprocess Operator Note From [employer]: Dispatched to above [...] this plan. 911 called, [facility] and [facility] responded. Verbal report given to [facility] Head Sugar Reprocess Operator, took over patient care, will transport to [facility]. Sc8 clear. EOR. .................. .................. .................. .................. .................. .................. .................. ............... [facility] Consulted: Dillon Galeano .................. .................. .................. .................. .................. .................. .................. ............... Disposition: Fulfilled Dillon Galeano MD [address] [facility],[address], [place], [address], Soonr 04/24/2024 14:02:45
--- OUTSIDE RECORDS SUMMARY | 2024-07-22 09:57 | XMS_ITS | Encounter Summary ---
Author Organization [employer] Address [address] [facility] [address] 7[address] [place] [address] Care Team Providers Care Transfer Engineer Name Role Phone Name, Ananda CRANDALL Primary Care Provider [phone] Geeta Dove PharmD Unavailable [phone] Reason for Visit * Reason Comments Med Refill Encounter Details Date Type Department Care Team ([facility] st Contact Info) Description 07/21/2024 Refill [facility] MEDICINE 230 [place], [place] [phone] Teresa Hope DO [address] [place], [place] [phone] Pain of left leg Social History Tobacco [...] Description 08/05/2024 9:15 AM EDT Clinical Support [address] [address] Sonali Stubbs, COREY [address] [place] [address] 08/18/2024 10:30 AM EDT Medication Management [address] [address] Geeta Dove, PharmD [address] [place] [address] documented as of this encounter Goals Goal [...] documented as of this encounter Care Teams Transfer Engineer Relationship Specialty Start Date End Date Name, MD Ananda 230 [place] [address] PCP - General Family Medicine 06/01/15 Geeta Dove PharmD [address] [place] [address] Pharmacist Internal Medicine 07/21/24 documented as of this encounter
--- OUTSIDE RECORDS SUMMARY | 2024-07-22 09:57 | XMS_ITS | Encounter Summary ---
Author Organization [employer] Address [address] [facility] 7t [place] [address] Care Team Providers Care Electromechanical Equipment Assembler Name Role Phone Name, Ananda CRANDALL Primary Care Provider [phone] Encounter Details Date Type Department Care Team (Latest Contact Info) Description 07/17/2024 Travel Social History Tobacco Use Types Packs/Day [...] Description 08/05/2024 9:15 AM EDT Clinical Support [address] [address] Sonali Stubbs, RN [address] [place] [phone] 08/18/2024 10:30 AM EDT Medication Management [address] [address] Geeta Dove, PharmD [address] [place] [phone] documented as of this encounter Goals Goal Patient Goal Type Associated Problems Recent Progress Patient-Stated? Author Increase coping skills to promote long-term recovery and improve ability to perform daily activities General On track( 9:58 AM EDT) No Sonali Stubbs, COREY Reduce tobacco use (cigarettes, smokeless, etc) Tobacco Use On track( 9:58 AM EDT) No Sonali Stubbs, COREY Note: 1-2 cigs per day documented as of this encounter Visit Diagnoses Not on filedocumented in this encounter Additional Health Concerns Assessment Noted Time PHQ-9 Depression Total Score: 5 07/16/19 25 11:03 AM EDT documented as of this encounter Care Teams Electromechanical Equipment Assembler Relationship Specialty Start Date End Date Name, MD Ananda [address] [place] [phone] PCP - General Family Medicine 3/30/16 documented as of this encounter
--- OUTSIDE RECORDS SUMMARY | 2024-07-22 09:57 | XMS_ITS | Encounter Summary ---
Author Organization [employer] Address [address] [facility] [address] [place] [address] Care Team Providers Care Visual Presentation Manager Name Role Phone Name, Ananda CRANDALL Primary Care Provider [phone] Geeta Dove PharmD Unavailable [phone] Reason for Visit * Reason Onset Date Comments case in lab 10/03/2022 Encounter Details Date Type Department Care Team ([facility] st Contact Info) Description 10/03/2022 Telephone [facility] [address] [place] [address] Kelvin Haque DDS [address] [place] [address] case in lab Social History Tobacco Use [...] AM EDT documented as of this encounter Functional Status * Over the past 2 weeks, how often have you been bothered by any of the following problems? Question Answer Date of Assessment Author Patient Health Questionnaire-2 Score 1 04/2022 2:21 PM Almita Kline * If you checked off any problems on this questionnaire so far, Question Answer Date of Assessment Author How difficult have these problems made it for you to do your work, take care of things at home, or get along with other people? Not difficult at all 10/03/2022 2:21 PM Almita Kline * Over the past 2 weeks, how often have you been bothered by any of the following problems? Question Answer Date of Assessment Author Little interest or pleasure in doing things Not at all 10/03/2022 2:21 PM Almita Kline Feeling down, depressed, or hopeless Several days 10/03/2022 2:21 PM Almita Kline Trouble falling or staying a sleep, or sleeping too much Not at all 10/03/2022 2:21 PM Almita Kline Feeling tired or having bryn le energy Several days 10/03/2022 2:21 PM Almita Kline Poor appetite or overeating Several days 10/03/2022 2: 21 PM Almita Kline Feeling bad about yourself - or that you are a failure or have let yourself or your family down Not at all 10/03/2022 2:21 PM Nisha Kline Trouble concentrating on thi ngs, such as reading the newspaper or watching television Not at all 10/03/2022 2:21 PM Almita Kline Moving or speaking so slowly that other people could have noticed? Or the opposite - being so fidgety or restless that you have been moving around a lot more than usual. Not at all 10/03/2022 2:21 PM Jose Elias Kline illeen Thoughts that you would be b liliam off or hurting yourself in some way Not at all 10/03/2022 2:21 PM Almita Kline Patient Health Questionnaire -9 Score 3 10/03/2022 2:21 PM Almita Kline documented as of this encounter Miscellaneous Notes * Telephone Encounter - Joanie Gonzalez - 10/03/2022 2:29 PM EDT Hubert from [employer] called in [facility] that the soonest they can get case back in to office would be 10/10. They stated it is 5 business days and does not include drop off or flower picker date. Confirmed with Hubert that as of yet appt has not been scheduled to return and that I would inform officeDR documented in this encounter Plan of Treatment Upcoming Encounters Date Type Department Care Team (Late st Contact Info) Description 08/05/2024 9:15 AM EDT Clinical Support [facility] [address] [place] [phone] Sonali Stubbs, RN [address] [place] [phone] 08/18/2024 10:30 AM EDT Medication Management [facility] [address] [place] [phone] Geeta Dove, PharmD [address] [place] [phone] documented as of this encounter Visit Diagnoses Not on filedocumented in this encounter Additional Health Concerns Assessment Noted Time PHQ-9 Depression Total Score: 3 10/04/19 23 2:21 PM EDT documented as of this encounter Care Teams Visual Presentation Manager Relationship Specialty Start Date End Date Name, MD Ananda [address] [place] [address] PCP - General Family Medicine 06/01/15 Geeta Dove, PharmD [address] [place] [phone] Pharmacist Internal Medicine 07/21/24 documented as of this encounter
--- OUTSIDE RECORDS SUMMARY | 2024-07-22 09:58 | XMS_ITS | Encounter Summary ---
Author Organization [employer] Address [address] [facility] [address] [place] [address] Care Team Providers Care Lending Manager Name Role Phone Name, Ananda CRANDALL Primary Care Provider [phone] Geeta Dove PharmD Unavailable [phone] Reason for Visit * Reason Onset Date Comments Durable Medical Equipment 06/08/2022 Encounter Details Date Type Department Care Team ([facility] st Contact Info) Description 06/08/2022 Telephone [facility] [address] [place], [place] [phone] Name, MD Ananda [address] [place] [address] Durable Medical Equipment Social History Tobacco Use [...] Miscellaneous Notes * Telephone Encounter - Davina Scottie - 06/11/2022 12:30 PM EDT Tc from pt returning call , states unable to get a hold of corporate coordinator and would like to know if PCP can send script directly to [facility] . Please contact at [phone] * Telephone Encounter - Arleen Ramirez - 06/11/2022 11:28 AM EDT TC to patient and informed him to contact his managed care nurse as a script for a recliner was emailed to her previously. Patient understood and agreed with plan. * Telephone Encounter - Darian Joiner - 06/08/2022 4:29 PM EDT Tc from pt requesting a script for a recliner chair to be send to [facility] please contact pt at [phone] documented in this encounter Plan of Treatment Upcoming Encounters Date Type Department Care Team (Late st Contact Info) Description 08/05/2024 9:15 AM EDT Clinical Support [address] [address] Sonali Stubbs RN [address] [place] [phone] 08/18/2024 10:30 AM EDT Medication Management [address] [address] Geeta Dove PharmD [address] [place] [phone] documented as of this encounter Visit Diagnoses Not on filedocumented in this encounter Care Teams Lending Manager Relationship Specialty Start Date End Date Name, MD Ananda [address] [place] [address] PCP - General Family Medicine 06/01/15 Geeta Dove PharmD [address] [place] [phone] Pharmacist Internal Medicine 07/21/24 documented as of this encounter
--- OUTSIDE RECORDS SUMMARY | 2024-07-22 09:58 | XMS_ITS | Clinical Summary ---
Author Organization [employer] Address [address] [facility] [address] [place] [address] Care Team Providers Care Genetic Coordinator Name Role Phone Name, Ananda CRANDALL Primary Care Provider [phone] Geeta Dove PharmD Unavailable [phone] Allergies No known active allergies Medications docusate sodium (Colace) 100 MG capsule Take 1 capsule by mouth at bed time. 021 Active ramelteon (Rozerem) 8 MG tablet Take 1 tablet by mouth at bed time. Active Misc. Devices (Pulse Oximeter For Finger) miscIndications :COPD exacerbation (CMS/HCC) 1 each 2 times daily. Call [facility] if consistently < 95% 1 each 023 Active Alcohol Swabs (Alcohol Prep) 70 % pads USE FOUR TIMES DAILY DIRECTED 023 Active clonazePAM (KlonoPIN) 1 MG tablet Take 1 mg by mouth 2 times daily. 023 Active Lancets (OneTouch Delica Plus [id number]) mis TEST BLOOD SUGAR THREE TIMES DAILY 023 [...] IN THE MORNING 90 tablet 023 Active Additional Information Patient not taking.Reason: refills needed, Reported on 07/21/2024 NovoLOG FLEXPEN 100 UNIT/ML penIndications: Diabetes mellitus type 2 in nonobese ([facility]) INJECT SUBCUTANEOUSLY THREE TIMES DAILY PER SLIDING SCALE: BLOOD SUGAR < 200: DO NOT USE, 201-250 = 2 UNITS, 251-300 = 4U, 301-350 = 8U, > 351 = 10U 15 mL 4 Active busPIRone (Buspar) 15 MG tablet Take 15 mg by mouth 2 times daily. Active Multiple Vitamin (Multivitamin) tablet Take 1 [...] with long-term current use of insulin ([facility]) TAKE 1 TABLET BY MOUTH EVERY DAY DIRECTED 90 tablet Active glucose 4 g chewable tablet CHEW 4 TABLETS BY MOUTH EVERY 15 MINUTES NEEDED FOR LOW BLOOD SUGAR UNTIL SYMPTOMS RESOLVED OR LOW BLOOD SUGAR IS RESOLVED Active albuterol (Ventolin HFA) 108 (90 Base) MCG/ACT inhalerIndicati ons:Chronic obstructive pulmonary disease, unspecified COPD type ([facility]) INHALE 2 PUFFS BY MOUTH EVERY 4 TO 6 HOURS NEEDED 18 g 5 025 Active senna (Senokot) 8.6 MG tabletIndicatio ns:Constipation , unspecified constipation type TAKE 2 TABLETS BY MOUTH EVERY DAY NEEDED FOR CONSTIPATION 60 tablet 5 Active Trelegy Ellipta 200-62.5-25 MCG/ACT aerosol powder Inhale 1 puff 1 (one) time each day at the same time. 03/07/2 025 Active FreeStyle Precision Isak Test test stripIndication s:Type 2 diabetes mellitus with hyperglycemia, with long-term current use of insulin ([facility]) USE DIRECTED TO TEST BLOOD SUGAR THREE TIMES DAILY 100 strip 3 025 Active BD Pen Needle Pham U/F 32G X 4 MM miscIndications :Type 2 diabetes mellitus without complication, unspecified whether type bar and segment assembler insulin use (CMS/HCC) USE DIRECTED FOUR TIMES DAILY 100 each 5 025 Active montelukast (Singulair) 10 MG tabletIndicatio ns:Seasonal allergic rhinitis, unspecified trigger Take 1 tablet (10 mg) by mouth at bedtime. 90 tablet 1 025 Active Suboxone 8-2 MG SL filmIndications :Uncomplicated opioid dependence ([facility]) Place 3 Film under the tongue Once per day for 28 days. 84 Film 025 2024 Active albuterol (2.5 MG/3ML) 0.083% nebulizer solution INHALE 1 AMPULE USING A NEBULIZER EVERY 6 HOURS NEEDED FOR WHEEZING 90 mL 11 025 Active Acetaminophen Extra Strength 500 MG tabletIndicatio ns:Cough in adult patient TAKE 1 TABLET BY MOUTH THREE TIMES DAILY 90 tablet 2 025 Active Varenicline Tartrate, Starter, (Chantix Starting Month ) 0.5 MG X 11 & 1 MG X 42 tablet therapy packIndications :Tobacco dependence Take 0.5 mg by mouth Once per day for 3 days, THEN 0.5 mg 2 times daily for 4 days, THEN 1 mg 2 times daily for 21 days. 53 each 025 2024 Active varenicline (Chantix) 1 MG tabletIndicatio ns:Tobacco dependence Take 1 tablet (1 mg) by mouth 2 times daily. Take with full glass of water. 56 tablet 4 025 Active Continuous Glucose Sensor (FreeStyle Kasey 3 Plus Sensor) misc 2 each every 8 (eight) hours. Active glucose blood (OneTouch Verio) test strip every 8 (eight) hours. 022 2024 Discontinued(M ed list cleanup (will not trigger notification to Pharmacy)) nicotine polacrilex (Commit) 2 MG lozenge take 1 tablet by oral route every 8 hours dissolved slowly in the mouth as needed for cigarette craving 021 2024 Discontinued(A lternate therapy) Propylene Glycol-Glycerin 1-0.3 % solution Use 2 gtt QID prn eye itchiness as needed 021 2024 Discontinued(M ed list cleanup (will not trigger notification to Pharmacy)) Continuous Glucose Sensor (FreeStyle Kasey 2 Sensor) [facility] [place] USE DIRECTED TO TEST BLOOD SUGAR 8 TIMES PER DAY 2 each 024 2024 Discontinued(M ed list cleanup (will not trigger notification to Pharmacy)) Continuous Glucose Cell Stripper Final (FreeStyle Kasey 2 [place]) device Scan sensor every 8 hours 1 each 024 2024 Discontinued(M ed list cleanup (will not trigger notification to Pharmacy)) montelukast (Singulair) 10 MG tabletIndicatio ns:Seasonal allergic rhinitis, unspecified trigger TAKE 1 TABLET BY MOUTH EVERY DAY AT BEDTIME 90 tablet 1 024 2024 Discontinued albuterol (2.5 MG/3ML) 0.083% nebulizer solution Take 3 mL (2.5 mg) by nebulization every 6 (six) hours if needed for wheezing. 75 mL 11 024 2024 Discontinued Acetaminophen Extra Strength 500 MG tabletIndicatio ns:Cough in adult patient Take 1 tablet (500 mg) by mouth 3 times daily. 90 tablet 2 025 2024 Discontinued Nicotine Step 1 21 MG/24HR patch APPLY 1 PATCH TOPICALLY EVERY DAY. REMOVE OLD PATCH BEFORE APPLYING NEW ONE. 025 2024 Discontinued(A lternate therapy) Suboxone 8-2 MG SL filmIndications :Uncomplicated opioid [...] for 5 days. 10 tablet 025 2024 Discontinued(R eorder (will not trigger notification to Pharmacy)) azithromycin (Zithromax) 250 MG tablet Take 2 tablets (500 mg) by mouth Once per day for 1 day, THEN 1 tablet (250 mg) Once per day for 4 days. 6 tablet 025 2024 predniSONE (Deltasone) 20 MG tablet Take 2 tablets (40 mg) by mouth Once per day for 5 days. 10 tablet 025 2024 amoxicillin-cla vulanate (Augmentin) 875-125 MG tablet Take 1 tablet by mouth 2 times daily for 5 days. 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 Mild pulmonary [...] and left lower lobe calcified large granuloma. [place] [address] [address] Scan Report Signed Patient: Hubert Rios MR#: [id number] : 1965 Acct:[id number] Age/Sex: 59 / M ADM Date: 07/02/24 Loc: HO.CT Attending Dr: Chanel Thomas NP Ordering Physician: Chanel Thomas NP Date of Service: 07/02/24 Procedure(s): CT chest wo IV con Accession Number(s): [id number] cc: Ananda Spain MD; Chanel Thomas NP Report Number: [id number]: Total DLP = 110.00 mGy-cm EXAMINATION: CT [...] Víctor Barnes MD 07/02/2024 09:58 AM EDT Seasonal allergic rhinitis 08/08/2016 Nocturia 08/06/2012 Retinal scar 12/19/2011 Opioid dependence 08/15/2011 Assessment & Plan (07/08/2024 5:10 AM EDT): - in maintenance stage, long-term [...] support and recovery effort Assessment & Plan (05/12/2024 4:32 PM EDT): - in maintenance stage, long-term - BZD is prescribed by psychiatrist - No opi / fen in [facility] for many years - overdose risk: high [...] psychiatrist - No opi / fen in [place] for many years - continue current medication dose and visit frequency - continue education on overdose prevention, drug use trends in the community - continue current recovery support and recovery effort Assessment & Plan (02/19/2024 5:38 AM EST): - in maintenance stage, long-term - BZD is prescribed by psychiatrist - No opi / fen in [facility] for many years - continue current medication dose and visit frequency - continue education on overdose prevention, drug use trends in the community - continue current recovery support and recovery effort Assessment & Plan (08/07/2023 4:51 AM EDT): - in maintenance stage, long-term, celebrating 14 years in our program today - BZD is prescribed by psychiatrist - No opi / fen in [facility] for many years - continue current medication dose and visit frequency - continue education on overdose prevention, drug use trends in the community - continue current recovery support and recovery effort Assessment & Plan (07/10/2023 10:00 AM EDT): - in maintenance stage, long-term, celebrating 14 years in our program today - BZD is prescribed by psychiatrist - No opi / fen in [place] for many years - continue current medication [...] at next visit - continue current effort Mood disorder 08/01/2011 Cognitive disorder 08/31/2009 T2DM (type 2 diabetes mellitus) 07/23/2007 Resolved Problems Problem Noted Date Diagnosed Date Resolved Date Mass of left lower leg 10/01/202207/23 Nonhealing ulcer of left lower extremity 10/01/2022 07/15/2024 Renal neoplasm 10/01/2022 07/24/2023 Varicose veins of left lower extremity with inflammation 10/01/2022 07/15/2024 Disorder of abdomen 02/01/2022 07/24/19 Abdominal wall bulge 02/01/2022 024 Contusion of chest 10/24/2017 Rib pain 08/01/2017 07/24/2023 Non-cardiac chest pain 11/07/201607/15 Rib lesion 09/21/2016 08/29/2022 Wheezing 08/08/2016 08/29/2022 Backache 08/01/2011 07/15/2024 Encounters Date Type Department Care Team Description 07/21/2024 9:30 AM EDT Telemedicine [facility] MEDICINE [address] [place] [address] Geeta Dove, LoretoD Tobacco dependence (Primary Dx) 07/21/2024 Refill [facility] MEDICINE [address] [place] [address] Teresa Hope DO Pain of left leg 07/21/2024 Refill [facility] MEDICINE [address] [place] [address] So Lebron MD Type 2 diabetes mellitus with hyperglycemia, with long-term current use of insulin ([facility]) 07/17/2024 11:15 AM EDT Office Visit [facility] OPTOMETRY [address] [place] [address] Tarka, Natalie, OD Reduced visual acuity (Primary Dx) 07/17/2024 Travel 07/15/2024 10:45 AM EDT Office Visit [facility] MEDICINE [address] [place] [address] Ananda Spain MD Chronic obstructive pulmonary disease, unspecified COPD type ([facility]) (Primary Dx); Tobacco dependence; Type 2 diabetes mellitus with hyperglycemia, with long-term current use of insulin ([facility]) 07/15/2024 Travel 07/14/2024 Telephone [facility] MEDICINE [address] [place] [address] Ananda Spain MD Chart Prep 07/10/2024 Telephone [facility] MEDICINE [address] [place] [address] Sonali Stubbs, RN OBAT - PA for brand name Suboxone 07/08/2024 9:15 AM EDT Telemedicine [facility] MEDICINE [address] [place] [phone] Latrice Ibrahim MD Uncomplicated opioid dependence ([facility]) (Primary Dx) 07/08/2024 Travel 07/07/2024 9:40 AM EDT [facility] [address] [address] Sebastián Graves MD COPD exacerbation ([facility]) (Primary Dx); Acute URI 07/07/2024 Telephone [facility] MEDICINE [address] [place] [phone] Maya Jolly RN 07/05/[address] [address] Breanna Das NP Cough in adult patient 07/03/2024 Orders Only GENERIC EXTERNAL DATA DEPARTMENT Provider, Generic External Data 07/02/2024 Orders Only [facility] External Provider, [facility] 07/02/2024 Refill [facility] MEDICINE [address] [place] [phone] Ananda Spain MD 07/01/2024 Refill [facility] MEDICINE [address] [place] [phone] Sonali Stubbs, RN Uncomplicated opioid dependence ([facility]) 06/26/2024 11:00 AM EDT Office Visit [address] [address] Ananda Spain MD COPD exacerbation ([facility]) (Primary Dx); Cough in adult patient; Seasonal allergic rhinitis, unspecified trigger 06/22/2024 Refill [facility] MEDICINE [address] [place] [phone] Ananda Spain MD Seasonal allergic rhinitis, unspecified trigger 06/19/2024 11:20 AM EDT [facility] [address] [address] Luis Espinoza MD Viral URI with cough 06/19/2024 Travel 06/12/2024 Orders Only GENERIC EXTERNAL DATA DEPARTMENT Provider, Generic External Data 06/12/2024 Refill [facility] MEDICINE [address] [place] [phone] Ananda Spain MD Type 2 diabetes mellitus without complication, unspecified whether long-term insulin use ([facility]) 06/10/2024 9:30 AM EDT Clinical Support [facility] MEDICINE [address] [place] [phone] Sonali Stubbs, COREY Opioid type dependence, continuous ([facility]) (Primary Dx) 06/10/2024 Telephone [facility] MEDICINE [address] [place] [phone] Ananda Spain MD 06/10/2024 Travel 06/08/2024 Telephone [facility] MED [facility] [address] [place] [address] Ananda Spain MD Durable Medical Equipment 06/05/[address] [address] Ananda Spain MD 06/03/2024 Orders Only [facility] MEDICINE [address] [place] [phone] Ananda Spain MD 06/03/2024 Refill [facility] MEDICINE [address] [place] [phone] Sonali Stubbs RN Uncomplicated opioid dependence ([facility]) 06/02/[address] [address] Geeta Dove, PharmD 05/29/2024 Orders Only GENERIC EXTERNAL DATA DEPARTMENT Provider, Generic External Data 05/28/2024 Refill [facility] MEDICINE [address] [place] [phone] Ananda Spain MD Type 2 diabetes mellitus with hyperglycemia, with long-term current use of insulin ([facility]) 05/27/2024 Telephone [facility] MEDICINE [address] [place] [phone] Evelyn Reeves RN 05/21/2024 9:30 AM EDT Office Visit [facility] MEDICINE [address] [place] [phone] So Lebron MD Chronic bronchitis, unspecified chronic bronchitis type ([facility]/HCC) (Primary Dx); Tobacco dependence 05/21/2024 Travel 05/20/[address] [address] Ananda Spain MD Chart Prep 05/19/2024 Orders Only GENERIC EXTERNAL DATA DEPARTMENT Provider, Generic External Data 05/14/[address] [address] Ananda Spain MD Appointment Request 05/13/2024 9:30 AM EDT Office Visit [address] [address] Latrice Ibrahim MD Uncomplicated opioid dependence (CMS/HCC) (Primary Dx); Tobacco dependence 05/13/2024 Travel 05/06/[address] [address] Sonali Stubbs, COREY Uncomplicated opioid dependence ([facility]/HCC) 05/06/[address] [address] Ananda Spain MD No Show (Patient no show for sick on site ) 05/06/[address] [address] Ananda Spain MD No Show 05/06/[address] [address] Ananda Spain MD 04/30/2024 Telephone [facility] MED & PEDS [address], [place] [phone] Ananda Spain MD chartprep from Last 3 Months Immunizations Immunization Administration Dates Next Due Hep A, Adult [...] the past 12 months, has t he [employer], gas, oil or water company threatened to [...] Sign Reading Time Taken Comments Blood Pressure 128/78 07/15/2024 10:51 AM EDT Pulse 94 07/15/2024 10:51 AM EDT Temperature 37.1 ??C (98.7 ??F) 07/15/2024 10:51 AM E DT Respiratory Rate 22 07/15/2024 10:51 AM EDT Oxygen Saturation 96% 07/07/2024 9:43 AM EDT Inhaled Oxygen Concentration - - Weight 55.8 kg (123 lb) 07/15/2024 10:51 AM EDT Height 167.6 cm (5' 6 ) 07/15/2024 10:51 AM EDT Body Mass Index 19.85 07/15/2024 10:51 AM EDT Plan of Treatment Upcoming Encounters Date Type Department Care Team (Late st Contact Info) Description 08/05/2024 9:15 AM EDT Clinical Support [facility] MEDICINE [address] [place] [phone] Sonali Stubbs, RN [address] [place] [phone] 08/18/2024 10:30 AM EDT Medication Management [facility] MEDICINE [address] [place] [phone] Geeta Dove, PharmD [address] [place] [phone] Health Maintenance Due Date Last Done Comments CT Colonography 1965 Dental Oral Exam 1966 Dental Prophylaxis 1966 Dental X-Ray: Bitewings 1966 Dental X-Ray: Full Mouth 1966 FIT DNA/Cologuard 1966 FIT 1966 FOBT 1965 Sigmoidoscopy 1966 Alcohol/Substance Use Screening 1978 Hepatitis B Vaccines (1 of 3 - 19+ 3-dose series) 1985 Lung Cancer Screening 2016 Zoster Vaccines (2 of 2) 03/08/2018 01/11/2018 Colonoscopy 08/15/2020 08/16/2015 Colorectal Cancer Screening 08/15/2020 COVID-19 Vaccine ( season) 2023 02/10/2021, 05/18/2020 Diabetes: Foot Exam 07/23/2024 07/24/2023, 07/24/2023, 07/24/2023, Additional history exists DTaP/Tdap/Td Vaccines (3 - Td or Tdap) 08/14/2024 08/14/2014, 05/25/2011 Diabetes: Hemoglobin A1C 10/15/2024 025, 05/27/2024, 04/16/2024, Additional history exists Lipid Panel 05/27/2025 05/27/2024, 05/02, 02/13/2022, Additional history exists Diabetes: Urine Protein Screening 05/29/2025 05/29/2024, 05/14/2023, 02/13/2022, Additional history exists Depression Screening 07/15/2025 07/15/2024, 07/16/19 Disability Screening 07/15/2025 07/15/2024 SDOH Screening 07/15/2025 07/15/2024 Tobacco Screening 07/21/2025 07/21/2024 Eye Exam 07/17/2026 07/17/2024, 07/02, 07/17/2024, Additional history exists RSV Patients and Patients [...] patient's age to complete this topic Meningococcal B Vaccine Aged Out No l onger eligible based on patient's age to complete [...] Stubbs, COREY Note: 1-2 cigs per day Procedures Procedure Name Priority Date/Time Associated Diagnosis Comments OCT, RETINA - OU - BOTH EYES Routine 07/17/2024 1:28 PM EDT Reduced visual acuity POCT GLYCATED HEMOGLOBIN, TOTAL Routine 07/15/2024 10:54 AM EDT Type 2 diabetes mellitus with hyperglycemia, with long-term current use of insulin ([facility]) POCT GLUCOSE Routine 07/15/2024 10:54 AM EDT Type 2 diabetes mellitus with hyperglycemia, with long-term current use of insulin ([facility]) POCT INFLUENZA B (ID NOW RAPID MOLECULAR) Routine 07/07/2024 10:10 AM EDT Acute URI POCT INFLUENZA A (ID NOW RAPID MOLECULAR) Routine 07/07/2024 10:10 AM EDT Acute URI POCT RAPID COVID ANTIGEN Routine 07/07/2024 10:10 AM EDT Acute URI GLUCOSE, WHOLE BLOOD Routine 07/03/2024 8:57 AM [...] 9:43 AM EDT Uncomplicated opioid dependence (CMS/HCC) HEPATITIS C AB W/REFL TO HCV RNA, QN, PCR Routine 03/29/2023 9:12 AM EST HIV 1/2 ANTIGEN/ANTIBODY, FOURTH GENERATION W/RFL Routine 03/29/2023 9:12 AM EST HM COLONOSCOPY Routine 08/16/2015 1:52 PM EDT from Last 3 Months or Most Recently Relevant to Health Maintenance Results * OCT, Retina - OU - Both Eyes (07/17/2024 1:28 PM EDT) Natalie Davis OD OPHTH TOMOGRAPHY Final Result * (ABNORMAL) POCT HGB A1C (07/15/2024 10:54 AM EDT) [facility] Hemoglobin A1C 8.1(A) 4.0 - 6.0 % QC Media Lot # [id number] Lot# Expiration Date 727 Blood 07/15/2024 10:5 4 AM EDT Ananda Spain MD POINT OF CARE TEST ENTER/EDIT OR DERABLES Final Result * (ABNORMAL) POCT Glucose (07/15/2024 10:54 AM EDT) [facility] Glucose Blood, POC 222(A) 60 - 200 mg/dL QC Media Lot # [id number] Lot# Expiration Date [id number] Blood Capillary blood specimen / Unknown 07/15/2024 10:54 AM EDT Ananda Spain MD POINT OF CARE TEST ENTER/EDIT OR DERABLES Final Result * Influenza B (ID NOW Rapid Molecular) (07/07/2024 10:10 AM EDT) Only the most recent of3 resultswithin the time period is included. [facility] Influenza B Negative Negative, Indeterminate [facility] Swab 07/07/2024 10:1 0 AM EDT Sebastián Graves MD POINT OF CARE TEST ENTER/EDIT OR DERABLES Final Result [facility] [address] [place] [address] [phone] * Influenza A (ID NOW Rapid Molecular) (07/07/2024 10:10 AM EDT) Only the most recent of3 resultswithin the time period is included. [facility] Influenza A Negative Negative, Indeterminate [facility] Swab 07/07/2024 10:1 0 AM EDT Sebastián Graves MD POINT OF CARE TEST ENTER/EDIT OR DERABLES Final Result Performing Organization Address [facility] Co de Phone Number [facility] [address] [place] [phone] * POCT Rapid COVID Ag (07/07/2024 10:10 AM EDT) Only the most recent of2 resultswithin the time period is included. Rapid COVID Ag Negative [facility] Swab 07/07/2024 10:1 0 AM EDT Sebastián Graves MD POINT OF CARE TEST ENTER/EDIT OR DERABLES Final Result Performing Organization Address [facility] Phone Number [facility] [address] [place] [phone] * (ABNORMAL) Glucose, Whole Blood (07/03/2024 8:57 AM EDT) Only the most recent of4 resultswithin the time period is included. Glucose, Whole Blood 219(H) 60 - 115 mg/dL [facility] Comment:METER #: [id number] 5Testing performed in the Endocrinology Department [address] , [address], [facility]. 07/03/2024 8:57 AM EDT 07/03/2024 9:01 AM EDT us Generic External Data Provider LAB BLOOD ORDERAB LES Final Result Performing Organization Address [facility] Co de Phone Number [facility] [address] [place] [phone] * CT Chest w/o Contrast (07/02/2024 7:47 AM EDT) Anatomical Region Laterality Modality Body, Chest Computed Tomogra phy 07/02/2024 7:47 AM EDT Narrative 07/02/2024 10:01 AM EDT ? [facility] ?[address] ?[place] [address] ? CT Scan Report ? Signed ? Patient: Esparra,Hari ?MR#: [id number] ?? [id number] ? : 1965 ?Acct:[id number] ? Age/Sex: 59 / M ?ADM Date: 07/02/24 ? Loc: HO.CT ? Attending Dr: Chanel Thomas PAINTER INTERIOR FINISH ? Ordering Physician: Chanel Thomas NP ?? Date of Service: 07/02/24 ?? Procedure(s): CT chest wo IV con ?? Accession Number(s): [id number] ? cc: Name,Ananda CRANDALL; Chanel Thomas NP ? Report Number: ?? [id number]: Total DLP = ??110.00 mGy-cm ?? EXAMINATION: [...] DD/ 0747 ? TD/TT: 07/02/24 0752 ? Net Sql Developer: ? Procedure Note Alex [place] - 07/02/[address] [address] [address] Scan Report Signed Patient: Hubert Rios MMR#: [id number] : 1965Acct:[id number] Age/Sex: 59 / MADM Date: 07/02/24 Loc: HO.CT Attending Dr: Chanel Thomas PAINTER INTERIOR FINISH Ordering Physician: Chanel Thomas NP Date of Service: 07/02/24 Procedure(s): CT chest wo IV con Accession Number(s): [id number] cc: Grabiel,Ananda CRANDALL; Chanel Thomas NP Report Number: [id number]: Total DLP = 110.00 mGy-cm EXAMINATION: CT [...] 07/02/24 0958 DD/ 0747 TD/TT: 07/02/24 0752 Net Sql Developer: [facility] External Provider IMG CT PROCEDURES Final Result * POCT COVID-19 Ag Rao ID NOW (06/26/2024 10:53 AM EDT) Pathologist [facility] Coronavirus Antigen PCR Negative Negative, Indeterminate, None Detected, Invalid, Specimen unsatisfactory for evaluation, Weakly Positive Swab 06/26/2024 10:5 3 AM EDT Result [facility] Ananda Spain MD POINT OF CARE TEST ENTER/EDIT OR DERABLES Final Result * POCT rapid strep A manually resulted (06/26/2024 10:53 AM EDT) Pathologist [facility] Rapid Strep A Screen Negative Negative, None Detected Swab 06/26/2024 10:5 3 AM EDT Result [facility] us Ananda Spain MD POINT OF CARE TEST ENTER/EDIT OR DERABLES Final Result * POCT FARA-14 Urine Drug Screen (06/10/2024 9:27 AM EDT) Only the most recent of2 resultswithin the time period is included. Pathologist [facility] THC Negative Cocaine Screen, Urine Negative Opiate [...] procedure / Unknown 06/10/2024 9:27 AM EDT Result [facility] Luis Espinoza MD POINT OF CARE TEST ENTER/EDIT OR DERABLES Final Result * Albumin, Random Urine W/Creatinine (05/29/2024 8:43 AM EDT) Creatinine, Urine 126.68 mg/dL [facility] Microalbumin Urine 15.0 mg/L [facility] Microalbum Creatinine Ratio Ur 11.8 <30 ug/mg cr [facility] Comment:Albumin/Creatinine R atio Reference Ranges: Normal: < 30 ug/mg creatinine Microalbuminuria: 30 - 300 ug/mg creatinineClinical Albuminuria: > 300 ug/mg creatinine 05/29/2024 8:43 AM EDT 05/29/2024 9:05 AM EDT us Generic External Data Provider LAB URINE ORDERAB LES Final Result [facility] [address] [place] [phone] * (ABNORMAL) CBC auto differential (05/27/2024 8:40 AM EDT) White Blood Count 8.3 4.8 - 10.8 X10*3/uL [facility] Red Blood Count 4.66 4.60 - 5.80 X10*6/uL [facility] Hemoglobin 13.7(L) 14.0 - 18.0 g/dl [facility] Hematocrit 41.9(L) 42.0 - 52.0 % [facility] Mean Corpuscular Volume 89.9 80.0 - 98.0 fL [facility] Mean Corpuscular Hemoglobin 29.4 27.0 - 33.0 pg [facility] Mean Corpuscular HGB Conc 32.7 31.0 - 36.0 g/dl [facility] Red Cell Distribution Width 14.6 11.0 - 16.0 % [facility] Platelet Count 270 160 - 400 X10*3/uL [facility] Mean Platelet Volume 10.8 9.4 - 12.4 fL [facility] Neutrophils Percent Auto 38.6(L) 45 - 73 % [facility] Imm Gran Pct Auto 0.2 0.0 - 0.4 % [facility] Lymphocytes Percent Auto 43.0(H) 20 - 40 % [facility] Monocytes Percent Auto 10.4 2 - 11 % [facility] Eosinophils Percent Auto 6.6(H) 0 - 4 % [facility] Basophils Percent Auto 1.2 0 - 2 % [facility] NRBC Pct Auto 0.0 0.0 - 0.2 /100WBC [facility] Neutrophils Absolute Auto 3.2 2.0 - 8.3 x10*3/uL [facility] Imm Gran Abs Auto 0.02 0.00 - 0.03 X10*3/uL [facility] Lymphocytes Absolute Auto 3.6 1.2 - 4.9 X10*3/uL [facility] Monocytes Absolute Auto 0.9 0.1 - 1.2 X10*3/uL [facility] Eosinophils Absolute Auto 0.6(H) 0.0 - 0.4 X10*3/uL [facility] Basophils Absolute Auto 0.1 0.0 - 0.2 X10*3/uL [facility] NRBC Abs Auto 0.000 0.0 - 0.012 X10*3/uL [facility] Blood Venous blood specimen / Unknown 05/27/2024 8:40 AM EDT 05/27/2024 8:40 AM EDT us Ananda Name LAB BLOOD ORDERABLES Final Resul t [facility] [address] [place] [phone] * Hepatitis A Antibody, Total (05/27/2024 8:40 AM EDT) Hepatitis A Antibody IgG REACTIVE Nonreactive [facility] Comment:The presence of IgG anti-HAV implies past HAV infection(recent or distant) or vaccination against HAV. Blood Venous blood specimen / Unknown 05/27/2024 8:40 AM EDT 05/27/2024 8:40 AM EDT us Ananda Spain MD LAB BLOOD ORDERABLES Final Resul t Performing Organization Address [facility] Co de Phone Number [facility] [address] [place] [phone] * Hepatitis B surface antigen, EIA (05/27/2024 8:40 AM EDT) Hepatitis B Surface Ag Negative Negative [facility] Blood Venous blood specimen / Unknown 05/27/2024 8:40 AM EDT 05/27/2024 8:40 AM EDT us Ananda Spain MD LAB BLOOD ORDERABLES Final Resul t Performing Organization Address [facility] de Phone Number [facility] [address] [place] [phone] * Hepatitis B Surface Antibody, Qualitative (05/27/2024 8:40 AM EDT) ~Hepatitis B Surface Antibody REACTIVE Nonreactive [facility] Comment:REACTIVE: > 11.99 mI U/mL Blood Venous blood specimen / Unknown 05/27/2024 8:40 AM EDT 05/27/2024 8:40 AM EDT us Ananda Spain MD LAB BLOOD ORDERABLES Final Resul t Performing Organization Address [facility] Co de Phone Number [facility] [address] [place] [phone] * (ABNORMAL) Hemoglobin A1c (05/27/2024 8:40 AM EDT) Hemoglobin A1c 8.3(H) <6.0 % [facility] Comment:Hemoglobin A1C Refer ence Range Adults: 4.8 - 6.0 % Non diabetic: < 6.0 % Goal: < 7.0 %Additional Action Suggested: > 8.0 %Note: Hemoglobin A1c results are invalid for patients with abnormal amounts of HbF. Blood transfusions may impact the HbA1c concentration in the patient sample. Estimated Average Glucose 192 mg/dL [facility] Comment:eAG = Estimated ave rage glucose which is %A1C expressed asaverage glucose, using the formula of the U2D-DbfaykaGnwreoq Glucose study (ADAG), Diabetes Care, Vol.31,#8,Oct. 2007 Blood Venous blood specimen / Unknown 05/27/2024 8:40 AM EDT 05/27/2024 8:40 AM EDT us Ananda Spain MD LAB BLOOD ORDERABLES Final Resul t [facility] [address] [place] [address] [phone] * (ABNORMAL) Lipid Panel, Standard (05/27/2024 8:40 AM EDT) Triglycerides 73 <150 mg/dL [facility] Comment:Desirable Triglyceri de: less than 150 mg/dLBorderline High Triglyceride 150-199 mg/dLHigh Triglyceride: 200-499 mg/dLVery High Triglyceride: greater than or equal to 5OO mg/dL Cholesterol 221(H) <200 mg/dL [facility] Comment:Desirable Cholestero l: less than 200 mg/dLBorderline High Cholesterol: 200-239 mg/dLHigh Cholesterol: greater than 239 mg/dL LDL Cholesterol Calculated 75 <100 mg/dL [facility] Comment:Desirable LDL: less than 100 mg/dLNear Optimal/Above Optimal LDL: 110- 129 mg/dLBorderline High LDL: 130-159 mg/dLHigh LDL: 160-189 mg/dLVery High LDL: greater than or equal to 190 mg/dL HDL Cholesterol 132 >40 mg/dL [facility] Comment:Desirable HDL: great er than 40 mg/dL Note: This HDL assay may give artificially low results in patients with liver disease. Blood Venous blood specimen / Unknown 05/27/2024 8:40 AM EDT 05/27/2024 8:40 AM EDT us Ananda Spain MD LAB BLOOD ORDERABLES Final Resul t [facility] [address] [place], [place] [phone] * (ABNORMAL) Comprehensive Metabolic Panel (05/27/2024 8:40 AM EDT) Sodium 146(H) 135 - 145 mmol/L [facility] Potassium 3.6 3.3 - 5.1 mmol/L [facility] Chloride 109(H) 96 - 108 mmol/L [facility] Carbon Dioxide 30(H) 22 - 29 mmol/L [facility] Anion Gap 11(L) 12 - 20 [facility] Urea Nitrogen (BUN) 14 9 - 16 mg/dL [facility] Creatinine, Serum 0.73 0.5 - 1.4 mg/dL [facility] Estimated Glomerular Filt Rate >60 [facility] Comment:Chronic Kidney Disea se: Estimated GFR < 60 mL/min/1.46j2Yxbqqr Kidney Disease: Estimated GFR < 15 mL/min/1.73m2 Glucose 46(LL) 60 - 115 mg/dL [facility] Comment:Critical value for G ELENI: Results called to and read ashok Paige Person calling: NAYLA Date: 05-27-24 Time:1035 Calcium 10.2 8.4 - 10.2 mg/dL [facility] Bilirubin, Total 1.3(H) 0.0 - 1.0 mg/dL [facility] Aspartate Amino Transferase 38(H) 5 - 37 U/L [facility] Alanine Aminotransferase 28 0 - 40 U/L [facility] Total Protein 7.3 6.5 - 8.0 g/dL [facility] Albumin Level 4.7 3.5 - 5.0 g/dL [facility] Alkaline Phosphatase 55 39 - 117 U/L [facility] Blood Venous blood specimen / Unknown 05/27/2024 8:40 AM EDT 05/27/2024 8:40 AM EDT us Ananda Spain MD LAB BLOOD ORDERABLES Final Resul t Performing Organization Address [facility] Co de Phone Number [facility] [address] [place] [phone] * (ABNORMAL) Hepatitis C Antibody with Reflex to HCV, RNA, Quantitative, Real- Time PCR (03/29/2023 9:12 AM EST) Hepatitis C Antibody Reactive( A) Nonreactive [facility] Comment:Presumptive evidence of antibodies to HCV. 03/29/2023 9:12 AM EST 03/29/2023 11:11 AM EST Latrice Ibrahim MD LAB BLOOD ORDERABLES Final Resul t Performing Organization Address [facility] Phone Number [facility] [address] [place] [phone] * HIV-1/2 Antigen and Antibodies, Fourth Generation, with Reflexes (03/29/2023 9:12 AM EST) HIV AB/AG Nonreactive Nonreactive [facility] Comment:HIV-1 p24 Ag and/or HIV-1/HIV-2 Ab not detected.A test result that is nonreactive does not exclude thepossibility of exposure to or infection with HIV-1 and/orHIV-2. Nonreactive results in this assay for individualswith prior exposure to HIV-1 and/or HIV-2 may be due toantigen and antibody levels that are below the limit ofdetection of this assay.The [employer]dikniFifty[employer]iver HIV Ag/Ab Combo assay result andsupplemental assay results should be interpreted inconjunction with the patient's clinical presentation,history and other laboratory results. If the results areinconsistent with clinical evidence, additional testing issuggested to confirm the result. 03/29/2023 9:12 AM EST 03/29/2023 11:11 AM EST Latrice Ibrahim MD LAB BLOOD ORDERABLES Final Resul t Performing Organization Address [facility]/ZIP Co de Phone Number [facility] [address] [place] [phone] * Hm Colonoscopy (08/16/2015 1:52 PM EDT) Colonoscopy Normal Normal Narrative Gloria Álvarez - 08/16/2015 1:52 PM EDT Recommended 10 year follow up Historical Provider MD HEALTH MAINTENANCE Final Result from Last 3 Months or Most Recently Relevant to Health Maintenance Insurance [facility] < 65 Care Teams Genetic Coordinator Relationship Specialty Start Date End Date Name, MD Ananda [address] [place] [address] PCP - General Family Medicine 06/01/15 Geeta Dove PharmD [address] [place] [address] Pharmacist Internal Medicine 07/21/24
--- OUTSIDE RECORDS SUMMARY | 2024-07-22 09:58 | XMS_ITS | Encounter Summary ---
Author Organization [employer] Address [address] [place] [address] Care Team Providers Care Intake Counselor Name Role Phone Name, Ananda CRANDALL Primary Care Provider [phone] Geeta Dove PharmD Unavailable [phone] Reason for Visit * Reason Comments Med Refill Encounter Details Date Type Department Care Team (Late st Contact Info) Description 09/19/2023 Refill [facility] [address] [place], [place] [phone] Name, MD Ananda [address] [place] [address] Pain of left leg Social History Tobacco [...] Description 08/05/2024 9:15 AM EDT Clinical Support [facility] MED[facility]INE [address] [place] [address] Sonali Stubbs, COREY [address] [place] [address] 08/18/2024 10:30 AM EDT Medication Management [facility] [address] [place] [address] Geeta Dove PharmD [address] [place] [address] documented as of this encounter Visit Diagnoses Diagnosis Pain of left leg documented in this encounter Additional Health Concerns Assessment Noted Time PHQ-9 Depression Total Score: 10 024 9:15 AM EDT documented as of this encounter Care Teams Intake Counselor Relationship Specialty Start Date End Date Name, MD Ananda [address] [place] [address] PCP - General Family Medicine 06/01/15 Geeta Dove PharmD [address] [place] [address] Pharmacist Internal Medicine 07/21/24 documented as of this encounter
--- OUTSIDE RECORDS SUMMARY | 2024-07-22 09:58 | XMS_ITS | Encounter Summary ---
Author Organization [employer] Address [address] [facility] 7t [place] [address] Care Team Providers Care Rubber Goods Tester Name Role Phone Name, Ananda CRANDALL Primary Care Provider [phone] Geeta Dove PharmD Unavailable [phone] Encounter Details Date Type Department Care Team (Late Contact Info) Description 08/13/2022 Abstract [facility] [address] [place] [address] Name, MD Ananda [address] [place] [address] Social History Tobacco Use Types Packs/Day Years [...] Description 08/05/2024 9:15 AM EDT Clinical Support [facility] [address] [place] [address] Sonali Stubbs, RN [address] [place] [address] 08/18/2024 10:30 AM EDT Medication Management [facility] [address] [place] [address] Geeta Dove PharmD [address] [place] [address] documented as of this encounter Procedures Procedure [...] on filedocumented in this encounter Care Teams Rubber Goods Tester Relationship Specialty Start Date End Date Name, MD Ananda [address] [place] [address] PCP - General Family Medicine 06/01/15 Geeta Dove, Donte [address] [place] [address] Pharmacist Internal Medicine 07/21/24 documented as of this encounter
--- OUTSIDE RECORDS SUMMARY | 2024-07-22 09:58 | XMS_ITS | Encounter Summary ---
Author Organization [employer] Address [address] [place] [address] Care Team Providers Care Jackaroo Name Role Phone Name, Ananda CRANDALL Primary Care Provider [phone] Geeta Dove PharmD Unavailable [phone] Reason for Visit * Reason Comments Med Refill Encounter Details Date Type Department Care Team ([facility] Contact Info) Description 06/07/2022 Refill [facility] [address] [place] [address] Sebastián Graves MD [address] [place] [address] Pain of left leg Social History Tobacco [...] Upcoming Encounters Date Type Department Care Team ([facility] Contact Info) Description 08/05/2024 9:15 AM EDT Clinical Support [facility] [address] [place] [address] Sonali Stubbs, RN [address] [place] [address] 08/18/2024 10:30 AM EDT Medication Management [facility] [address] [place] [address] Geeta Dove PharmD [address] [place] [address] documented as of this encounter Visit Diagnoses Diagnosis Pain of left leg documented in this encounter Care Teams Jackaroo Relationship Specialty Start Date End Date Name, MD Ananda [address] [place] [address] PCP - General Family Medicine 06/01/15 Geeta Dove PharmD [address] [place] [address] Pharmacist Internal Medicine 07/21/24 documented as of this encounter
--- OUTSIDE RECORDS SUMMARY | 2024-07-22 09:58 | XMS_ITS | Encounter Summary ---
Author Organization [employer] Address [address] [facility] 7t [place] [address] Care Team Providers Care Records Custodian Name Role Phone Name, Ananda CRANDALL Primary Care Provider [phone] Geeta Dove PharmD Unavailable [phone] Reason for Visit * Reason Onset Date Comments ER Follow-up 09/26/2022 Encounter Details Date Type Department Care Team ([facility] st Contact Info) Description 09/26/2022 Telephone [facility] [address] [place], [place] [phone] Name, MD Ananda [address] [place] [address] ER Follow-up Social History Tobacco Use Types [...] 10:24 AM EDT T/c to pt. Through [employer] id - [id number] for below message, pt. 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 [facility] hours are reviewed. * Telephone Encounter - Hawa Morales - 10/01/2022 9:35 AM EDT Tc from pt returning call regarding message below. Please contact pt at [phone] (serbian speaker) * Telephone Encounter - Em Leblanc RN - 09/27/2022 3:29 PM EDT T/C to pt. On [phone] through [employer] id - [id number] for status check and to schedule follow up apt. No answer. LVM to call back on [phone]. * Telephone Encounter - Netta Alvares - 09/26/2022 11:04 AM EDT Tc from pt calling to advise PCP of an ER visit to [facility] on 09/24/22 for surgery on the left leg. Pt advised will forward to team nurse for f/u. Please contact pt at [phone] (South Sudanese) documented in this encounter Plan of Treatment Upcoming Encounters Date Type Department Care Team (Late st Contact Info) Description 08/05/2024 9:15 AM EDT Clinical Support [address] [address] Sonali Stubbs, RN [address] [place] [address] 08/18/2024 10:30 AM EDT Medication Management [address] [address] Geeta Dove PharmD [address] [place] [address] documented as of this encounter Visit Diagnoses Not on filedocumented in this encounter Care Teams Records Custodian Relationship Specialty Start Date End Date Name, MD Ananda [address] [place] [address] PCP - General Family Medicine 06/01/15 Geeta Dove PharmD [address] [place] [address] Pharmacist Internal Medicine 07/21/24 documented as of this encounter
--- OUTSIDE RECORDS SUMMARY | 2024-07-22 09:58 | XMS_ITS | Encounter Summary ---
Author Organization [employer] Address [address] [facility] 7t [place] [address] Care Team Providers Care Aging Department Supervisor Name Role Phone Name, Ananda CRANDALL Primary Care Provider [phone] Geeta Dove PharmD Unavailable [phone] Reason for Visit * Reason Onset Date Comments Durable Medical Equipment 09/18/2022 Encounter Details Date Type Department Care Team ([facility] st Contact Info) Description 09/18/2022 Telephone [facility] [address] [place], [place] [phone] Name, MD Ananda [address] [place] [address] Durable Medical Equipment Social History Tobacco Use [...] 09/21/2022 1:49 PM EDT Incoming call from [facility] PT regarding message below. [facility] PT states they have no record of pt ever going to their offices and getting PT. Unsure what next steps should be at this point. * Telephone Encounter - Christy Finn RN - 09/21/2022 1:39 PM EDT TC X1 to [facility] PT [phone] regarding message below. LVM to return call to nurses. * Telephone Encounter - Lauren Walsh - 09/20/2022 3:14 PM EDT Tc from patient returning call back, regarding message below. Patient states he's going to PT in [facility]. [address] [place] [address] [place] [address] [address] Mcdaniel. * Telephone Encounter - Christy [...] Description 08/05/2024 9:15 AM EDT Clinical Support [address] [place] [address] Sonali Stubbs, RN [address] [place] [address] 08/18/2024 10:30 AM EDT Medication Management [facility] [address] [place] [phone] Geeta Dove PharmD [address] [place] [address] documented as of this encounter Visit Diagnoses Not on filedocumented in this encounter Care Teams Aging Department Supervisor Relationship Specialty Start Date End Date Name, MD Ananda [address] [place] [address] PCP - General Family Medicine 06/01/15 Geeta Dove PharmD [address] [place] [address] Pharmacist Internal Medicine 07/21/24 documented as of this encounter
--- OUTSIDE RECORDS SUMMARY | 2024-07-22 09:58 | XMS_ITS | Encounter Summary ---
Author Organization [employer] Address [address] [facility] 7t [place] [address] Care Team Providers Care Corporate Driver Name Role Phone Name, Ananda CRANDALL Primary Care Provider [phone] Geeta Dove PharmD Unavailable [phone] Reason for Visit * Reason Comments Med Refill Encounter Details Date Type Department Care Team ([facility] st Contact Info) Description 12/11/2023 Refill [facility] MED[facility] [address] [place], [place] [phone] Name, MD Ananda [address] [place] [address] Type 2 diabetes mellitus without complication, unspecified whether long-term insulin use ([facility]) Social History Tobacco Use Types Packs/Day [...] Description 08/05/2024 9:15 AM EDT Clinical Support [facility] [address] [place] [address] Sonali Stubbs, COREY [address] [place] [address] 08/18/2024 10:30 AM EDT Medication Management [address] [address] Geeta Dove PharmD [address] [place] [address] documented as of this encounter Visit Diagnoses Diagnosis Type 2 diabetes mellitus without complication, unspecified whether long-term insulin use ([facility]) documented in this encounter Additional Health Concerns Assessment Noted Time PHQ-9 Depression Total Score: 024 9:15 AM EDT documented as of this encounter Care Teams Corporate Driver Relationship Specialty Start Date End Date Name, MD Ananda [address] [place] [address] PCP - General Family Medicine 06/01/15 Geeta Dove, PharmD [address] [place] [address] Pharmacist Internal Medicine 07/21/24 documented as of this encounter
== END 2024-07-22 09:18 | disposition home or self-care (01) ==
LOC: HO.ENCR 08:38
PROVIDERS: PCP Internal Medicine Geriatric Medicine; Visit Provider Registered Nurse Diabetes Educator
DX: E13.9 Other specified diabetes mellitus without complications (principal)

== ENCOUNTER → 2024-07-22 08:37 | Outpatient (BNVA) | payer OTHER, SELFPAY | PROVIDERS: PCP Internal Medicine Geriatric Medicine; Visit Provider Registered Nurse Diabetes Educator | DX: E13.9 Other specified diabetes mellitus without complications (principal) | CPT/HCPCS: 99211 ==

== ENCOUNTER 2024-07-23 12:15 | Outpatient (REF) | payer OTHER, SELFPAY ==
--- OUTSIDE RECORDS SUMMARY | 2024-07-23 12:28 | XMS_ITS | Encounter Summary ---
Author Organization [employer] Address [address] [facility] 7t [place] [address] Care Team Providers Care Rolled Glass Crosscutter Name Role Phone Name, Ananda CRANDALL Primary Care Provider [phone] Geeta Dove PharmD Unavailable [phone] Reason for Visit * Reason Comments Med Refill Encounter Details Date Type Department Care Team (Late st Contact Info) Description 07/21/2024 Refill [facility] [address] [place], [place] [phone] So Lebron MD 230 [place], [place] [phone] Type 2 diabetes mellitus with hyperglycemia, with long-term current use of insulin ([facility]); Pain of left leg Social History Tobacco [...] the past 12 months, has t he [employer], [employer], oil or water [employer] threatened to shut off services in your [...] Description 08/05/2024 9:15 AM EDT Clinical Support [facility] [address] [place] [address] Sonali Stubbs, RN 230 [place] [address] 08/06/2024 9:00 AM EDT Office Visit [facility] [address] [place] [address] Natalie Davis, OD [address] [place] [address] 08/18/2024 10:30 AM EDT Medication Management [facility] [address] [place] [address] Geeta Dove, PharmD 230 [place] [address] documented as of this encounter Goals Goal [...] of insulin ([facility]) Pain of left leg documented in this encounter Additional Health Concerns Assessment Noted Time PHQ-9 Depression Total Score: 5 07/16/19 11:03 AM EDT documented as of this encounter Care Teams Rolled Glass Crosscutter Relationship Specialty Start Date End Date Name, MD Ananda [address] [place] [address] PCP - General Family Medicine 06/01/15 Geeta Dove PharmD [address] [place] [address] Pharmacist Internal Medicine 07/21/24 documented as of this encounter
--- OUTSIDE RECORDS SUMMARY | 2024-07-23 12:28 | XMS_ITS | Encounter Summary ---
Author Organization [employer] Address [address] [facility] [address] 7t [place] [address] Care Team Providers Care Asset Protection Assistant Name Role Phone NameAnanda MD Primary Care Provider [phone] Geeta Dove PharmD Unavailable [phone] Reason for Visit * Reason Comments Med Refill Encounter Details Date Type Department Care Team ([facility] st Contact Info) Description 02/28/2023 Refill [facility] [address] [place], [place] [phone] Name, MD Ananda 230 [place], [place] [phone] Pain of left leg Social History Tobacco [...] Description 08/05/2024 9:15 AM EDT Clinical Support [facility] [address] [place] [address] Sonali Stubbs, RN [address] [place] [address] 08/06/2024 9:00 AM EDT Office Visit [facility] [address] [place] [address] TarNatalie elizabeth, OD [address] [place] [address] 08/18/2024 10:30 AM EDT Medication Management [facility] [address] [place] [address] Geeta Dove PharmD [address] [place] [address] documented as of this encounter Visit Diagnoses Diagnosis Pain of left leg documented in this encounter Additional Health Concerns Assessment Noted Time PHQ-9 Depression Total Score: 3 10/04/19 23 2:21 PM EDT documented as of this encounter Care Teams Asset Protection Assistant Relationship Specialty Start Date End Date Name, MD Ananda [address] [place] [address] PCP - General Family Medicine 06/01/15 Geeta Dove, PharmD [address] [place] [address] Pharmacist Internal Medicine 07/21/24 documented as of this encounter
--- OUTSIDE RECORDS SUMMARY | 2024-07-23 12:28 | XMS_ITS | Encounter Summary ---
Author Organization [employer] Address 75 [facility] 7t [place] [address] Care Team Providers Care Pot Room Tapper Name Role Phone Name, Ananda CRANDALL Primary Care Provider [phone] Geeta Dove PharmD Unavailable [phone] Encounter Details Date Type Department Care Team (Late st Contact Info) Description 02/14/2022 Abstract [facility] [address] [place] [address] ProviderDamari MD Social History Tobacco Use Types [...] Description 08/05/2024 9:15 AM EDT Clinical Support [facility] [address] [place] [address] Sonali Stbubs, COREY 230 [place] [address] 08/06/2024 9:00 AM EDT Office Visit [facility] [address] [place] [address] Natalie Davis, OD [address] [place] [address] 08/18/2024 10:30 AM EDT Medication Management [facility] 230 [place] [address] Geeta Dove PharmD 230 [place] [address] documented as of this encounter Visit Diagnoses Not on filedocumented in this encounter Care Teams Pot Room Tapper Relationship Specialty Start Date End Date Name, MD Ananda [address] [place] [address] PCP - General Family Medicine 06/01/15 Geeta Dove PharmD [address] [place] [address] Pharmacist Internal Medicine 07/21/24 documented as of this encounter
--- OUTSIDE RECORDS SUMMARY | 2024-07-23 12:28 | XMS_ITS | Encounter Summary ---
Author Organization [employer] Address 75 [facility] 7t [place] [address] Care Team Providers Care Rail Car Repair Carman Name Role Phone Name, Ananda CRANDALL Primary Care Provider [phone] Geeta Dove PharmD Unavailable [phone] Reason for Visit * Consultation (Routine) - Canceled Specialty Diagnoses / Procedures Referred By Contac t Referred To Contact Pharmacy Diagnoses COPD exacerbation ([facility]) Name, MD Ananda 230 [place] [address] Phone: tel: fax: Referral ID Status Reason Start Date Expiration Date V isits Requested Visits Authorized [id number] Canceled Consult and Treat 04/16/2024 04/16/2025 6 6 Encounter Details Date Type Department Care Team ([facility] Contact Info) Description 07/21/2024 9:30 AM EDT Telemedicine [facility] 230 [place], [place] [phone] Geeta Dove, PharmD 230 [place], [place] [phone] Tobacco dependence (Primary Dx) Social History Tobacco [...] has no known allergies. Read/Write: Yes, in Trinidadian (but limited per patient report) Recent Hospitalizations: No Social History as reported by patient: Tobacco: Current, see discussion below Alcohol: Denies Caffeine: Current, 1 cup of coffee daily QAM Illicit drugs: Denies; tx with Suboxone via [facility] OBAT program x15 years Adherence / patient self-management Takes from vials Denies missed doses or purposeful omission of any medication d/t suspected PAULA Refill history demonstrates adherence. 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 Regardless, he is followed by [facility] endocrinology & is not a candidate for [...] yrs) - due on/after 08/14/24 Preferred Pharmacy: [facility] - CODI Mazariegos - [address] [place] [address] Assessment/Plan: Smoking Cessation (Stage: Preparation) Pharmacotherapy: None currently Goals of therapy per the [facility] Treating Tobacco Use and Dependence Clinical Practice [...] EDT Clinical Support [facility] [address] [address] Sonali Stubbs, RN 230 [place] [address] 08/06/2024 9:00 AM EDT Office Visit [facility] OPT[facility] [address] [place] [address] Natalie Davis, MADIE [address] [place] [address] 08/18/2024 10:30 AM EDT Medication Management [facility] [address] [place] [address] Geeta Dove PharmD 230 [place] [address] documented as of this encounter Goals Goal [...] as of this encounter Care Teams Rail Car Repair Carman Relationship Specialty Start Date End Date Name, MD Ananda [address] [place] [address] PCP - General Family Medicine 06/01/15 Geeta Dove PharmD [address] [place] [address] Pharmacist Internal Medicine 07/21/24 documented as of this encounter
--- OUTSIDE RECORDS SUMMARY | 2024-07-23 12:28 | XMS_ITS | Encounter Summary ---
Author Organization [employer] Address 75 [facility] 7t [place] [address] Care Team Providers Care Business And Financial Counsel Name Role Phone Name, Ananda CRANDALL Primary Care Provider [phone] Geeta Dove PharmD Unavailable [phone] Encounter Details Date Type Department Care Team (Latest Contact Info) Description 01/06/2019 Abstract [facility] CONVERSIONS Dental, Provider, DDS Social History [...] Description 08/05/2024 9:15 AM EDT Clinical Support [facility] [address] [place] [address] Sonali Stubbs, COREY 230 [place] [address] 08/06/2024 9:00 AM EDT Office Visit [facility] [address] [place] [address] Natalie Davis OD 267 [place] [address] 08/18/2024 10:30 AM EDT Medication Management [facility] 230 [place] [address] Geeta Dove PharmD 230 [place] [address] documented as of this encounter Visit Diagnoses Not on filedocumented in this encounter Care Teams Business And Financial Counsel Relationship Specialty Start Date End Date Name, MD Ananda [address] [place] [address] PCP - General Family Medicine 06/01/15 Geeta Dove, LoretoD [address] [place] [address] Pharmacist Internal Medicine 07/21/24 documented as of this encounter
--- OUTSIDE RECORDS SUMMARY | 2024-07-23 12:28 | XMS_ITS | Encounter Summary ---
Author Organization [employer] Address 75 [facility] 7t [place] [address] Care Team Providers Care Physical Anthropologist Name Role Phone Name, Ananda CRANDALL Primary Care Provider [phone] Geeta Dove PharmD Unavailable [phone] Encounter Details Date Type Department Care Team (Latest Contact Info) Description 01/09/2021 Abstract [facility] CONVERSION[facility] Dental, Provider, DDS Social [...] Description 08/05/2024 9:15 AM EDT Clinical Support [facility] [address] [place] [address] Sonali Stubbs, RN 230 [place] [address] 08/06/2024 9:00 AM EDT Office Visit [facility] [address] [place] [address] Natalie Davis OD 267 [place] [address] 08/18/2024 10:30 AM EDT Medication Management [facility] [address] [place] [address] Geeta Dove PharmD 230 [place] [address] documented as of this encounter Visit Diagnoses Not on filedocumented in this encounter Care Teams Physical Anthropologist Relationship Specialty Start Date End Date Name, MD Ananda [address] [place] [address] PCP - General Family Medicine 06/01/15 Geeta Dove, PharmD [address] [place] [address] Pharmacist Internal Medicine 07/21/24 documented as of this encounter
--- OUTSIDE RECORDS SUMMARY | 2024-07-23 12:28 | XMS_ITS | Encounter Summary ---
Author Organization [employer] Address 75 [facility] 7t [place] [address] Care Team Providers Care Paper Handler Name Role Phone Name, Ananda CRANDALL Primary Care Provider [phone] Geeta Dove PharmD Unavailable [phone] Reason for Visit * Reason Onset Date Comments Appointment 09/06/2022 Encounter Details Date Type Department Care Team ([facility] st Contact Info) Description 09/06/2022 Telephone [facility] [address] [place] [address] Kelvin Haque DDS 230 [place] [address] Appointment Social History Tobacco Use Types Packs/Day [...] Description 08/05/2024 9:15 AM EDT Clinical Support [facility] MEDICINE [address] [place] [address] Sonali Stubbs, RN 230 [place] [address] 08/06/2024 9:00 AM EDT Office Visit [facility] OPT[facility] [address] [place] [address] Natalie Davis, OD [address] [place] [address] 08/18/2024 10:30 AM EDT Medication Management [facility] 230 [place] [address] Geeta Dove PharmD 230 [place] [address] documented as of this encounter Visit Diagnoses Not on filedocumented in this encounter Care Teams Paper Handler Relationship Specialty Start Date End Date Name, MD Ananda [address] [place] [address] PCP - General Family Medicine 06/01/15 Geeta Dove, PharmD [address] [place] [address] Pharmacist Internal Medicine 07/21/24 documented as of this encounter
--- OUTSIDE RECORDS SUMMARY | 2024-07-23 12:28 | XMS_ITS | Encounter Summary ---
Author Organization [employer] Address [address] [facility] [address] 7t [place] [address] Care Team Providers Care Car Restorer Name Role Phone Name, Ananda CRANDALL Primary Care Provider [phone] Geeta Dove PharmD Unavailable [phone] Encounter Details Date Type Department Care Team (Late Contact Info) Description 03/28/2022 Orders Only [facility] [address] [place] [address] Teresa Moody LPN Social History Tobacco Use [...] Support [facility] 230 [place] [address] Sonali Stubbs, COREY 230 [place] [address] 08/06/2024 9:00 AM EDT Office Visit [facility] [address] [place] [address] Natalie Davis, OD [address] [place] [address] 08/18/2024 10:30 AM EDT Medication Management [facility] 230 [place] [address] Geeta Dove PharmD 230 [place] [address] documented as of this encounter Visit Diagnoses Not on filedocumented in this encounter Care Teams Car Restorer Relationship Specialty Start Date End Date Name, MD Ananda [address] [place] [address] PCP - General Family Medicine 06/01/15 Geeta Dove PharmD [address] [place] [address] Pharmacist Internal Medicine 07/21/24 documented as of this encounter
--- OUTSIDE RECORDS SUMMARY | 2024-07-23 12:28 | XMS_ITS | Clinical Summary ---
Author Organization [employer] Address [address] [facility] [address] [place] [address] Care Team Providers Care Valve Repairer Name Role Phone Name, Ananda CRANDALL Primary Care Provider [phone] Geeta Dove PharmD Unavailable [phone] Allergies No known active allergies Medications docusate sodium (Colace) 100 MG capsule Take 1 capsule by mouth at bed time. 021 Active ramelteon (Rozerem) 8 MG tablet Take 1 tablet by mouth at bed time. Active Misc. Devices (Pulse Oximeter For Finger) miscIndications :COPD exacerbation (CMS/HCC) 1 each 2 times daily. Call [facility] if consistently < 95% 1 each 023 Active Alcohol Swabs (Alcohol Prep) 70 % pads USE FOUR TIMES DAILY DIRECTED 023 Active clonazePAM (KlonoPIN) 1 MG tablet Take 1 mg by mouth 2 times daily. 023 Active Lancets (OneTouch Delica Plus [id number]) mis TEST BLOOD SUGAR THREE TIMES DAILY [...] Take with 150 mc capsule 023 Active NovoLOG FLEXPEN 100 UNIT/ML penIndications: Diabetes mellitus type 2 in nonobese ([facility]) INJECT SUBCUTANEOUSLY THREE TIMES DAILY PER SLIDING SCALE: BLOOD SUGAR < 200: DO NOT USE, 201-250 = 2 UNITS, 251-300 = 4U, 301-350 = 8U, > 351 = 10U 15 mL 4 024 Active busPIRone (Buspar) 15 MG tablet Take 15 mg by mouth 2 times daily. 024 Active Multiple Vitamin (Multivitamin) tablet Take 1 tablet by mouth Once daily. TAKE 1 TABLET BY MOUTH EVERY DAY WITH FOODTAKE 1 TABLET BY MOUTH EVERY DAY WITH FOOD 90 tablet 3 024 2024 Active Tresiba FlexTouch 100 UNIT/ML injection INJECT 8 UNITS SUBCUTANEOUSLY EVERY DAY Active glucose 4 g chewable tablet CHEW 4 TABLETS BY MOUTH EVERY 15 MINUTES NEEDED FOR LOW BLOOD SUGAR UNTIL SYMPTOMS RESOLVED OR LOW BLOOD SUGAR IS RESOLVED Active albuterol (Ventolin HFA) 108 (90 Base) MCG/ACT inhalerIndicati ons:Chronic obstructive pulmonary disease, unspecified COPD type ([facility]) INHALE 2 PUFFS BY MOUTH EVERY 4 TO 6 HOURS NEEDED 18 g 5 025 Active senna (Senokot) 8.6 MG tabletIndicatio ns:Constipation , unspecified constipation type TAKE 2 TABLETS BY MOUTH EVERY DAY NEEDED FOR CONSTIPATION 60 tablet 5 025 Active Trelegy Ellipta 200-62.5-25 MCG/ACT aerosol powder Inhale 1 puff 1 (one) time each day at the same time. 025 Active FreeStyle Precision Isak Test test stripIndication s:Type 2 diabetes mellitus with hyperglycemia, with long-term current use of insulin ([facility]) USE DIRECTED TO TEST BLOOD SUGAR THREE TIMES DAILY 100 strip 3 025 Active BD Pen Needle Pham U/F 32G X 4 MM miscIndications :Type 2 diabetes mellitus without complication, unspecified whether longterm insulin use ([facility]) USE DIRECTED FOUR TIMES DAILY 100 each [...] MOUTH THREE TIMES DAILY 90 tablet 2 Active Varenicline Tartrate, Starter, (Chantix Starting Month [...] full glass of water. 56 tablet 4 Active atorvastatin (Lipitor) 40 MG tabletIndicatio ns:Type 2 diabetes mellitus with hyperglycemia, with long-term current use of insulin (CMS/HCC) TAKE 1 TABLET BY MOUTH EVERY DAY DIRECTED 90 tablet 1 025 Active Continuous Glucose Sensor (FreeStyle Kasey 3 Plus Sensor) misc 2 each every 8 (eight) hours. Active aspirin (Aspirin Low Dose) 81 MG EC tabletIndicatio ns:Pain of left leg TAKE 1 TABLET BY MOUTH DAILY IN THE MORNING 90 tablet 1 025 Active glucose blood (OneTouch Verio) test strip every 8 (eight) hours. 022 2024 Discontinued( ed list cleanup (will not trigger notification [...] cleanup (will not trigger notification to Pharmacy)) aspirin (Aspirin Low Dose) 81 MG EC tabletIndicatio ns:Pain of left leg TAKE 1 TABLET BY MOUTH DAILY IN THE MORNING 90 tablet 023 2024 Discontinued(R eorder (will not trigger notification to Pharmacy)) Continuous Glucose Sensor (FreeStyle Kasey 2 Sensor) [facility] USE DIRECTED TO TEST BLOOD SUGAR 8 TIMES PER DAY 2 each 024 2024 Discontinued(M ed list cleanup (will not trigger notification to Pharmacy)) Continuous Glucose [employer] (FreeStyle Kasey 2 [place]) device Scan sensor every 8 hours 1 each 024 2024 Discontinued(M ed list cleanup (will not trigger notification to Pharmacy)) albuterol (2.5 MG/3ML) 0.083% nebulizer solution Take 3 mL (2.5 mg) by nebulization every 6 (six) hours if needed for wheezing. 75 mL 11 024 2024 Discontinued atorvastatin (Lipitor) 40 MG tabletIndicatio ns:Type 2 diabetes mellitus with hyperglycemia, with long-term current use of insulin (CMS/HCC) TAKE 1 TABLET BY MOUTH EVERY DAY DIRECTED 90 tablet 025 2024 Discontinued Acetaminophen Extra Strength 500 MG [...] and left lower lobe calcified large granuloma. [place] [address] [address] Scan Report Signed Patient: Hubert Rios MR#: [id number] 0650 : 1965 Acct:[id number] Age/Sex: 59 / M ADM Date: 07/02/24 Loc: HO.CT Attending Dr: Chanel Thomas OIL FIELD TECHNICIAN Ordering Physician: Chanel Thomas NP Date of Service: 07/02/24 Procedure(s): CT chest wo IV con Accession Number(s): [id number] cc: Name,Ananda CRANDALL; Chanel Thomas NP Report Number: [id number]: Total DLP = 110.00 mGy-cm EXAMINATION: CT [...] Barnes MD 07/02/2024 09:58 AM EDT RP Seasonal allergic rhinitis 08/08/2016 Nocturia 08/06/2012 Retinal [...] Team Description 07/21/2024 9:30 AM EDT Telemedicine [facility] MEDICINE [address] [place] [address] Geeta Dove PharmD Tobacco dependence (Primary Dx) 07/21/2024 Refill [facility] [address] [place] [address] Teresa Hope DO Pain of left leg 07/21/2024 Refill [facility] [address] [place] [address] So Lebron MD Type 2 diabetes mellitus with hyperglycemia, with long-term current use of insulin ([facility]); Pain of left leg 07/17/2024 11:15 AM EDT Office Visit [facility] OPTOMETRY [address] [place] [address] Tarka, Natalie, OD Reduced visual acuity (Primary Dx) 07/17/2024 Travel 07/15/2024 10:45 AM EDT Office Visit [facility] MEDICINE [address] [place] [address] Ananda Spain MD Chronic obstructive pulmonary disease, unspecified COPD type ([facility]) (Primary Dx); Tobacco dependence; Type 2 diabetes mellitus with hyperglycemia, with long-term current use of insulin ([facility]) 07/15/2024 Travel 07/14/2024 Telephone [facility] MEDICINE [address] [place] [address] Ananda Spain MD Chart Prep 07/10/2024 Telephone [facility] MEDICINE [address] [place] [phone] Sonali Stubbs, RN OBAT - PA for brand name Suboxone 07/08/2024 9:15 AM EDT Telemedicine [facility] MEDICINE [address] [place] [phone] Latrice Ibrahim MD Uncomplicated opioid dependence ([facility]/HCC) (Primary Dx) 07/08/2024 Travel 07/07/2024 9:40 AM EDT [facility] [address] [address] Sebastián Graves MD COPD exacerbation ([facility]) (Primary Dx); Acute URI 07/07/2024 Telephone [facility] MEDICINE [address] [place] [phone] Maya Jolly RN 07/05/2024 [facility]ill [facility] [address] [place] [phone] Breanna Das NP Cough in adult patient 07/03/2024 Orders Only GENERIC EXTERNAL DATA DEPARTMENT Provider, Generic External Data 07/02/2024 Orders Only [facility] External Provider, [facility] 07/02/2024 Refill [facility] MEDICINE [address] [place] [phone] Ananda Spain MD 07/01/2024 Refill [facility] MEDICINE [address] [place] [phone] Sonali Stubbs, COREY Uncomplicated opioid dependence ([facility]/HCC) 06/26/2024 11:00 AM EDT [facility] [address] [place] [phone] Ananda Spain MD COPD exacerbation ([facility]) (Primary Dx); Cough in adult patient; Seasonal allergic rhinitis, unspecified trigger 06/22/2024 Refill [facility] MEDICINE [address] [place] [phone] Ananda Spain MD Seasonal allergic rhinitis, unspecified trigger 06/19/2024 11:20 AM EDT Office Visit [facility] WALK-IN CENTER [address] [place] [phone] Luis Espinoza MD Viral URI with cough 06/19/2024 Travel 06/12/2024 Orders Only GENERIC EXTERNAL DATA DEPARTMENT Provider, Generic External Data 06/12/2024 Refill [facility] MEDICINE [address] [place] [phone] Ananda Spain MD Type 2 diabetes mellitus without complication, unspecified whether longterm insulin use ([facility]) 06/10/2024 9:30 AM EDT Clinical Support [facility] [address] [place] [phone] Sonali Stubbs, RN Opioid type dependence, continuous (CMS/[facility]) (Primary Dx) 06/10/2024 Telephone [facility] MEDICINE [address] [place] [phone] Ananda Spain MD 06/10/2024 Travel 06/08/2024 Telephone [facility] MED [facility] P[facility] [address] [place] [address] Ananda Spain MD Durable Medical Equipment 06/05/2024 Telephone [facility] MEDICINE [address] [place] [phone] Ananda Spain MD 06/03/2024 Orders Only [facility] [address] [place] [phone] Ananda Spain MD 06/03/[address] [address] Sonali Stubbs, COREY Uncomplicated opioid dependence (CMS/[facility]) 06/02/[address] [address] Geeta Dove, PharmD 05/29/2024 Orders Only GENERIC EXTERNAL DATA DEPARTMENT Provider, Generic External Data 05/28/2024 Refill [facility] MED[facility]INE [address] [place] [address] Ananda Spain MD Type 2 diabetes mellitus with hyperglycemia, with long-term current use of insulin ([facility]) 05/27/2024 Telephone [facility] MEDICINE [address] [place] [phone] Evelyn Reeves RN 05/21/2024 9:30 AM EDT Office Visit [address] [address] So Lebron MD Chronic bronchitis, unspecified chronic bronchitis type ([facility]/HCC) (Primary Dx); Tobacco dependence 05/21/2024 Travel 05/20/[address] [address] Ananda Spain MD Chart Prep 05/19/2024 Orders Only GENERIC EXTERNAL DATA DEPARTMENT Provider, Generic External Data 05/14/[address] [address] Ananda Spain MD Appointment Request 05/13/2024 9:30 AM EDT Office Visit [address] [address] Latrice Ibrahim MD Uncomplicated opioid dependence (CMS/HCC) (Primary Dx); Tobacco dependence 05/13/2024 Travel 05/06/[address] [address] Sonali Stubbs, COREY Uncomplicated opioid dependence (CMS/HCC) 05/06/[address] [address] Ananda Spain MD No Show (Patient no show for sick on site ) 05/06/[address] [address] Ananda Spain MD No Show 05/06/[address] [address] Ananda Spain MD 04/30/2024 Telephone [facility] & PEDS [address] [place], [place] [phone] Ananda Spain MD chartprep from Last 3 Months Immunizations Immunization Administration Dates Next Due Hep A, Adult 05/11/2009 Influenza injectable quadriv alent preservative free 01/21/2023,01/02/2022,02/10/2021,03/07,01/13/2019,01/11/2018 Influenza, Split (incl. aba fied surface antigen) 12/24/2012,11/06/2011 Influenza, seasonal, injecta ble, preservative free 03/30/2024,11/20/2023 [employer] SARS-CoV-2 Vaccination 05/18/2020 Pfizer Covid-19 Vaccine 12+ [...] Description 08/05/2024 9:15 AM EDT Clinical Support [facility] MEDICINE [address] [place] [phone] Sonali Stubbs, RN [address] [place] [address] 08/06/2024 9:00 AM EDT Office Visit [facility] OPTOMETRY [address] [place] [address] Natalie Davis, OD [address] [place] [address] 08/18/2024 10:30 AM EDT Medication Management [facility] MEDICINE [address] [place] [address] Geeta Dove, PharmD [address] [place] [address] Health Maintenance Due Date Last Done Comments [...] Colorectal Cancer Screening 08/15/2020 COVID-19 Vaccine (3 2023- season) 2023 02/10/2021, 05/18/2020 Diabetes: Foot Exam 07/23/2024 07/24/2023, 07/24/2023, 07/24/2023, Additional history exists DTaP/Tdap/Td Vaccines (3 - Td or Tdap) 08/14/2024 08/14/2014, 05/25/2011 Diabetes: Hemoglobin A1C 10/15/2024 025, 05/27/2024, 04/16/2024, Additional history exists Lipid Panel 05/27/2025 05/27/2024, 05/02, 02/13/2022, Additional history exists Diabetes: Urine Protein Screening 05/29/2025 05/29/2024, 05/14/2023, 02/13/2022, Additional history exists Depression Screening 07/15/2025 07/15/2024, 07/16/19 25 Disability Screening 07/15/2025 07/15/2024 SDOH Screening 07/15/2025 [...] Stubbs, RN Note: 1-2 cigs per day Procedures Procedure Name Priority Date/Time Associated Diagnosis Comments OCT, RETINA - OU - BOTH EYES Routine 07/17/2024 1:28 PM EDT Reduced visual acuity POCT GLYCATED HEMOGLOBIN, TOTAL Routine 07/15/2024 10:54 AM EDT Type 2 diabetes mellitus with hyperglycemia, with long-term current use of insulin ([facility]) POCT GLUCOSE Routine 07/15/2024 10:54 AM EDT Type 2 diabetes mellitus with hyperglycemia, with long-term current use of insulin ([facility]) POCT INFLUENZA B (ID NOW RAPID MOLECULAR) [...] POCT HGB A1C (07/15/2024 10:54 AM EDT) Pathologist [facility] Hemoglobin A1C 8.1(A) 4.0 - 6.0 % QC Media Lot # [id number] Lot# Expiration Date ,727 Blood 07/15/2024 10:5 4 AM EDT Ananda Spain MD POINT OF CARE TEST ENTER/EDIT OR DERABLES Final Result * (ABNORMAL) POCT Glucose (07/15/2024 10:54 AM EDT) Pathologist [facility] Glucose Blood, POC 222(A) 60 - 200 [...] time period is included. Pathologist [facility] Influenza B Negative Negative, Indeterminate [facility] Swab 07/07/2024 10:1 0 AM EDT us Sebastián Graves MD POINT OF CARE TEST ENTER/EDIT OR DERABLES Final Result Performing Organization Address City/[facility]/ZIP Co de Phone Number [facility] [address] [place] [address] [phone] * Influenza A (ID NOW Rapid Molecular) (07/07/2024 10:10 AM EDT) Only the most recent of3 resultswithin the time period is included. Influenza A Negative Negative, Indeterminate [facility] Swab 07/07/2024 10:1 0 AM EDT us Sebastián Graves MD POINT OF CARE TEST ENTER/EDIT OR DERABLES Final Result Performing Organization Address [facility]/ZIP Co de Phone Number [facility] [address] [place] [phone] * POCT Rapid COVID Ag (07/07/2024 10:10 AM EDT) Only the most recent of2 resultswithin the time period is included. Rapid COVID Ag Negative [facility] Swab 07/07/2024 10:1 0 AM EDT us Sebastián Graves MD POINT OF CARE TEST ENTER/EDIT OR DERABLES Final Result Performing Organization Address City/[facility]/ZIP Co de Phone Number [facility] [address] [place] [address] [phone] * (ABNORMAL) Glucose, Whole Blood (07/03/2024 8:57 AM EDT) Only the most recent of4 resultswithin the time period is included. Glucose, Whole Blood 219(H) 60 - 115 mg/dL [facility] Comment:METER #: [id number] 5Testing performed in the Endocrinology Department [address] , [address], [facility]. 07/03/2024 8:57 AM EDT 07/03/2024 9:01 AM EDT us Generic External Data Provider LAB BLOOD ORDERAB LES Final Result [facility] [address] [place] [address] [phone] * CT Chest w/o Contrast (07/02/2024 7:47 AM EDT) Anatomical Region Laterality Modality Body, Chest Computed Tomogra phy 07/02/2024 7:47 AM EDT Narrative 07/02/2024 10:01 AM EDT ? [facility] ?[address] ?[place] [address] ? CT Scan Report ? Signed ? Patient: Hubert Rios ?MR#: [id number] ?? 0650 ? : 1965 ?Acct:[id number] ? Age/Sex: 59 / M ?ADM Date: 07/02/24 ? Loc: HO.CT ? Attending Dr: Chanel Thomas NP ? Ordering Physician: Chanel Thomas NP ?? Date of Service: 07/02/24 ?? Procedure(s): CT chest wo IV con ?? Accession Number(s): [id number] ? cc: Name,Ananda CRANDALL; Chanel Thomas NP ? Report Number: ?? [id number]: Total DLP = ??110.00 mGy-cm ?? EXAMINATION: [...] DD/ 0747 ? TD/TT: 07/02/24 0752 ? Bridge Toll Collector: ? Procedure Note Alex Villanueva - 07/02/[address] [address] [address] Scan Report Signed Patient: Hubert Rios [facility]#: [id number] 0650 : 1965Acct:[id number] Age/Sex: 59 / MADM Date: 07/02/24 Loc: HO.CT Attending Dr: Chanel Thomas NP Ordering Physician: Chanel Thomas NP Date of Service: 07/02/24 Procedure(s): CT chest wo IV con Accession Number(s): [id number] cc: Name,Ananda CRANDALL; Chanel Thomas NP Report Number: [id number]: Total DLP = 110.00 mGy-cm EXAMINATION: CT [...] 07/02/24 0958 DD/ 0747 TD/TT: 07/02/24 0752 Bridge Toll Collector: [facility] External Provider IMG CT PROCEDURES Final [...] of2 resultswithin the time period is included. [facility] THC Negative Cocaine Screen, Urine Negative [...] 8:43 AM EDT) Creatinine, Urine 126.68 mg/dL [facility] Microalbumin Urine 15.0 mg/L [facility] Microalbum Creatinine Ratio Ur 11.8 <30 ug/mg cr [facility] Comment:Albumin/Creatinine R atio Reference Ranges: Normal: < 30 ug/mg creatinine Microalbuminuria: 30 - 300 ug/mg creatinineClinical Albuminuria: > 300 ug/mg creatinine 05/29/2024 8:43 AM EDT 05/29/2024 9:05 AM EDT us Generic External Data Provider LAB URINE ORDERAB LES Final Result [facility] [address] [place] [phone] * (ABNORMAL) CBC auto differential (05/27/2024 8:40 AM EDT) White Blood Count 8.3 4.8 - 10.8 X10*3/uL [facility] Red Blood Count 4.66 4.60 - 5.80 X10*6/uL [facility] Hemoglobin 13.7(L) 14.0 - 18.0 g/dl [facility] Hematocrit 41.9(L) 42.0 - 52.0 % [facility] Mean Corpuscular Volume 89.9 80.0 - 98.0 fL [facility] Mean Corpuscular Hemoglobin 29.4 27.0 - 33.0 pg [facility] Mean Corpuscular HGB Conc 32.7 31.0 - 36.0 g/dl [facility] Red Cell Distribution Width 14.6 11.0 - 16.0 % [facility] Platelet Count 270 160 - 400 X10*3/uL [facility] Mean Platelet Volume 10.8 9.4 - 12.4 fL [facility] Neutrophils Percent Auto 38.6(L) 45 - 73 % [facility] Imm Gran Pct Auto 0.2 0.0 - 0.4 % [facility] Lymphocytes Percent Auto 43.0(H) 20 - 40 % [facility] Monocytes Percent Auto 10.4 2 - 11 % [facility] Eosinophils Percent Auto 6.6(H) 0 - 4 % [facility] Basophils Percent Auto 1.2 0 - 2 % [facility] NRBC Pct Auto 0.0 0.0 - 0.2 /100WBC [facility] Neutrophils Absolute Auto 3.2 2.0 - 8.3 x10*3/uL [facility] Imm Gran Abs Auto 0.02 0.00 - 0.03 X10*3/uL [facility] Lymphocytes Absolute Auto 3.6 1.2 - 4.9 X10*3/uL [facility] Monocytes Absolute Auto 0.9 0.1 - 1.2 X10*3/uL [facility] Eosinophils Absolute Auto 0.6(H) 0.0 - 0.4 X10*3/uL [facility] Basophils Absolute Auto 0.1 0.0 - 0.2 X10*3/uL [facility] NRBC Abs Auto 0.000 0.0 - 0.012 X10*3/uL [facility] Blood Venous blood specimen / Unknown 05/27/2024 8:40 AM EDT 05/27/2024 8:40 AM EDT us Ananda Name LAB BLOOD ORDERABLES Final Resul t [facility] [address] [place] [phone] * Hepatitis A Antibody, Total (05/27/2024 8:40 AM EDT) Hepatitis A Antibody IgG REACTIVE Nonreactive [facility] Comment:The presence of IgG anti-HAV implies past HAV infection(recent or distant) or vaccination against HAV. Blood Venous blood specimen / Unknown 05/27/2024 8:40 AM EDT 05/27/2024 8:40 AM EDT us Ananda Spain MD LAB BLOOD ORDERABLES Final Resul t Performing Organization Address [facility] Co ar Phone Number [facility] [address] [place] [phone] * Hepatitis B surface antigen, EIA (05/27/2024 8:40 AM EDT) Hepatitis B Surface Ag Negative Negative [facility] Blood Venous blood specimen / Unknown 05/27/2024 8:40 AM EDT 05/27/2024 8:40 AM EDT us Ananda Spain MD LAB BLOOD ORDERABLES Final Resul t Performing Organization Address [facility] Co de Phone Number [facility] [address] [place] [phone] * Hepatitis B Surface Antibody, Qualitative (05/27/2024 8:40 AM EDT) ~Hepatitis B Surface Antibody REACTIVE Nonreactive [facility] Comment:REACTIVE: > 11.99 mI U/mL Blood Venous blood specimen / Unknown 05/27/2024 8:40 AM EDT 05/27/2024 8:40 AM EDT us Ananda Spain MD LAB BLOOD ORDERABLES Final Resul t Performing Organization Address [facility] Co de Phone Number [facility] [address] [place] [phone] * (ABNORMAL) Hemoglobin A1c (05/27/2024 8:40 AM EDT) Hemoglobin A1c 8.3(H) <6.0 % [facility] Comment:Hemoglobin A1C Refer ence Range Adults: 4.8 - 6.0 % Non diabetic: < 6.0 % Goal: < 7.0 %Additional Action Suggested: > 8.0 %Note: Hemoglobin A1c results are invalid for patients with abnormal amounts of HbF. Blood transfusions may impact the HbA1c concentration in the patient sample. Estimated Average Glucose 192 mg/dL [facility] Comment:eAG = Estimated ave rage glucose which is %A1C expressed asaverage glucose, using the formula of the R2J-CyxtcqtAvehafz Glucose study (ADAG), Diabetes Care, Vol.31,#8,2007 Blood Venous blood specimen / Unknown 05/27/2024 8:40 AM EDT 05/27/2024 8:40 AM EDT us Ananda Name LAB BLOOD ORDERABLES Final Resul t [facility] [address] [place] [address] [phone] * (ABNORMAL) Lipid Panel, Standard (05/27/2024 8:40 AM EDT) Triglycerides 73 <150 mg/dL [facility] LABS Comment:Desirable Triglyceri de: less than 150 mg/dLBorderline High Triglyceride 150-199 mg/dLHigh Triglyceride: 200-499 mg/dLVery High Triglyceride: greater than or equal to 5OO mg/dL Cholesterol 221(H) <200 mg/dL [facility] Comment:Desirable Cholestero l: less than 200 mg/dLBorderline High Cholesterol: 200-239 mg/dLHigh Cholesterol: greater than 239 mg/dL LDL Cholesterol Calculated 75 <100 mg/dL [facility] Comment:Desirable LDL: less than 100 mg/dLNear Optimal/Above Optimal LDL: 110- 129 mg/dLBorderline High LDL: 130-159 mg/dLHigh LDL: 160-189 mg/dLVery High LDL: greater than or equal to 190 mg/dL HDL Cholesterol 132 >40 mg/dL [facility] Comment:Desirable HDL: great er than 40 mg/dL Note: This HDL assay may give artificially low results in patients with liver disease. Blood Venous blood specimen / Unknown 05/27/2024 8:40 AM EDT 05/27/2024 8:40 AM EDT us Ananda Name LAB BLOOD ORDERABLES Final Resul t [facility] [address] [place] [address] [phone] * (ABNORMAL) Comprehensive Metabolic Panel (05/27/2024 8:40 AM EDT) Sodium 146(H) 135 - 145 mmol/L [facility] Potassium 3.6 3.3 - 5.1 mmol/L [facility] Chloride 109(H) 96 - 108 mmol/L [facility] Carbon Dioxide 30(H) 22 - 29 mmol/L [facility] Anion Gap 11(L) 12 - 20 [facility] Urea Nitrogen (BUN) 14 9 - 16 mg/dL [facility] Creatinine, Serum 0.73 0.5 - 1.4 mg/dL [facility] Estimated Glomerular Filt Rate >60 [facility] Comment:Chronic Kidney Disea se: Estimated GFR < 60 mL/min/[id number] Kidney Disease: Estimated GFR < 15 mL/min/1.73m2 Glucose 46(LL) 60 - 115 mg/dL [facility] Comment:Critical value for G ELENI: Results called to and read dereck: BOZENA Paige Person calling: NAYLA Date: 05-27-24 Time:1035 Calcium 10.2 8.4 - 10.2 mg/dL [facility] Bilirubin, Total 1.3(H) 0.0 - 1.0 mg/dL [facility] Aspartate Amino Transferase 38(H) 5 - 37 U/L [facility] Alanine Aminotransferase 28 0 - 40 U/L [facility] Total Protein 7.3 6.5 - 8.0 g/dL [facility] Albumin Level 4.7 3.5 - 5.0 g/dL [facility] Alkaline Phosphatase 55 39 - 117 U/L [facility] Blood Venous blood specimen / Unknown 05/27/2024 8:40 AM EDT 05/27/2024 8:40 AM EDT Ananda Spain MD LAB BLOOD ORDERABLES Final Resul t Performing Organization Address [facility] Co de Phone Number [facility] [address] [place] [phone] * (ABNORMAL) Hepatitis C Antibody with Reflex to HCV, RNA, Quantitative, Real- Time PCR (03/29/2023 9:12 AM EST) Hepatitis C Antibody Reactive( A) Nonreactive [facility] Comment:Presumptive evidence of antibodies to HCV. 03/29/2023 9:12 AM EST 03/29/2023 11:11 AM EST Latrice Ibrahim MD LAB BLOOD ORDERABLES Final Resul t Performing Organization Address [facility] Co de Phone Number [facility] [address] [place] [phone] * HIV-1/2 Antigen and Antibodies, Fourth Generation, with Reflexes (03/29/2023 9:12 AM EST) HIV AB/AG Nonreactive Nonreactive [facility] Comment:HIV-1 p24 Ag and/or HIV-1/HIV-2 Ab not detected.A test result that is nonreactive does not exclude thepossibility of exposure to or infection with HIV-1 and/orHIV-2. Nonreactive results in this assay for individualswith prior exposure to HIV-1 and/or HIV-2 may be due toantigen and antibody levels that are below the limit ofdetection of this assay.The [employer] HIV Ag/Ab Combo assay result andsupplemental assay results should be interpreted inconjunction with the patient's clinical presentation,history and other laboratory results. If the results areinconsistent with clinical evidence, additional testing issuggested to confirm the result. 03/29/2023 9:12 AM EST 03/29/2023 11:11 AM EST us Latrice Ibrahim MD LAB BLOOD ORDERABLES Final Resul t [facility] [address] [place] [phone] [phone] * Hm Colonoscopy (08/16/2015 1:52 PM EDT) Colonoscopy Normal Normal Narrative Gloria Álvarez - 08/16/2015 1:52 PM EDT Recommended 10 year follow up Historical Provider HEALTH MAINTENANCE Final Result from Last 3 Months or Most Recently Relevant to Health Maintenance Insurance [facility] ONE CARE < 65 Care Teams Valve Repairer Relationship Specialty Start Date End Date Name, MD Ananda [address] [place] [address] 65[address] PCP - General Family Medicine 06/01/15 Geeta Dove PharmD [address] [place] [address] 8[address]84 Pharmacist Internal Medicine 07/21/24
--- OUTSIDE RECORDS SUMMARY | 2024-07-23 12:28 | XMS_ITS | Encounter Summary ---
Author Organization [employer] Address [address] [facility] 7t [place] [address] Care Team Providers Care Estimator And Drafter Supervisor Name Role Phone Name, Ananda CRANDALL Primary Care Provider [phone] Getea Dove PharmD Unavailable [phone] Encounter Details Date Type Department Care Team (Late Contact Info) Description 05/10/2022 Orders Only [facility] [address] [place] [address] [phone] Alis Zavala RN Uncomplicated opioid dependence (CMS/[facility]) Social History Tobacco Use Types Packs/Day [...] AM EDT Clinical Support [facility] [address] [place] [address] [phone] Sonali Stubbs, COREY [address] [place] [address] 08/06/2024 9:00 AM EDT Office Visit [facility] [address] [place] [address] Natalie Davis, OD [address] [place] [address] 08/18/2024 10:30 AM EDT Medication Management [facility] [address] [place] [address] Geeta Dove PharmD [address] [place] [address] documented as of this encounter Visit Diagnoses Diagnosis Uncomplicated opioid dependence (CMS/HCC) documented in this encounter Care Teams Estimator And Drafter Supervisor Relationship Specialty Start Date End Date Name, MD Ananda [address] [place] [address] PCP - General Family Medicine 06/01/15 Geeta Dove PharmD [address] [place] [address] [phone] Pharmacist Internal Medicine 07/21/24 documented as of this encounter
--- OUTSIDE RECORDS SUMMARY | 2024-07-23 12:28 | XMS_ITS | Encounter Summary ---
Author Organization [employer] Address [address] 7t [place] [address] Care Team Providers Care Records Section Supervisor Name Role Phone Name, Ananda CRANDALL Primary Care Provider [phone] Geeta Dove PharmD Unavailable [phone] Encounter Details Date Type Department Care Team ([facility] st Contact Info) Description 03/28/2023 Abstract [facility] [address] [place], [place] [phone] Name, MD Ananda [address] [place] [address] Social History Tobacco Use Types Packs/Day Years [...] 9:15 AM EDT Clinical Support [facility] [address] [place] [address] Sonali Stubbs, COREY [address] [place] [address] 08/06/2024 9:00 AM EDT Office Visit [facility] [address] [place] [address] TarNatalie elizabeth, OD [address] [place] [address] 08/18/2024 10:30 AM EDT Medication Management [facility] [address] [place] [address] Geeta Dove PharmD [address] [place] [address] documented as of this encounter Visit Diagnoses Not on filedocumented in this encounter Additional Health Concerns Assessment Noted Time PHQ-9 Depression Total Score: 3 10/04/19 23 2:21 PM EDT documented as of this encounter Care Teams Records Section Supervisor Relationship Specialty Start Date End Date Name, MD Ananda [address] [place] [address] 116[address] PCP - General Family Medicine 06/01/15 Geeta Dove PharmD [address] [place] [address] Pharmacist Internal Medicine 07/21/24 documented as of this encounter
--- OUTSIDE RECORDS SUMMARY | 2024-07-23 12:28 | XMS_ITS | Encounter Summary ---
Author Organization [employer] Address [address] 7t [place] [address] Care Team Providers Care Program And Research Coordinator Name Role Phone Name, Ananda CRANDALL Primary Care Provider [phone] Geeta Dove PharmD Unavailable [phone] Reason for Visit * Reason Onset Date Comments case in lab 10/03/2022 Encounter Details Date Type Department Care Team ([facility] st Contact Info) Description 10/03/2022 Telephone [facility] [address] [place] [address] eKlvin Haque DDS [address] [place] [address] case in lab Social History Tobacco Use [...] - 10/03/2022 2:29 PM EDT Hubert from [employer] [facility] called in [facility] that the soonest they can get case back in to office would be 10/10. They stated it is 5 business days and does not include drop off or brick picker date. Confirmed with Hubert that as of yet appt has not been scheduled to return and that I would inform officeDR documented in this encounter Plan of Treatment Upcoming Encounters Date Type Department Care Team (Late st Contact Info) Description 08/05/2024 9:15 AM EDT Clinical Support [facility] [address] [place] [address] Sonali Stubbs, RN [address] [place] [address] 08/06/2024 9:00 AM EDT Office Visit [facility] [address] [place] [address] Natalie Davis, OD [address] [place] [address] 08/18/2024 10:30 AM EDT Medication Management [facility] [address] [place] [address] Geeta Dove, PharmD [address] [place] [address] documented as of this encounter Visit Diagnoses Not on filedocumented in this encounter Additional Health Concerns Assessment Noted Time PHQ-9 Depression Total Score: 3 10/04/19 23 2:21 PM EDT documented as of this encounter Care Teams Program And Research Coordinator Relationship Specialty Start Date End Date Name, MD Ananda [address] [place] [phone] PCP - General Family Medicine 06/01/15 Geeta Dove, PharmD [address] [place] [address] Pharmacist Internal Medicine 07/21/24 documented as of this encounter
--- OUTSIDE RECORDS SUMMARY | 2024-07-23 12:28 | XMS_ITS | Encounter Summary ---
Author Organization [employer] Address [address] [facility] 7t [place] [address] Care Team Providers Care Instrument/Control Technician Name Role Phone Name, Ananda CRANDALL Primary Care Provider [phone] Geeta Dove PharmD Unavailable [phone] Reason for Visit * Reason Onset Date Comments Prior Authorization 05/07/2022 Appointment 05/07/2022 Encounter Details Date Type Department Care Team (Late st Contact Info) Description 05/07/2022 Telephone [facility] [address] [place], [place] [phone] Kelvin Haque DDS [address] [place], [place] [phone] Prior Authorization; Appointment Social History Tobacco Use [...] specify if for partial. Don't see if [facility] has approved partials for patient. Patient verifying. DR documented in this encounter Plan of Treatment Upcoming Encounters Date Type Department Care Team (Late st Contact Info) Description 08/05/2024 9:15 AM EDT Clinical Support [facility] [address] [place] [address] Sonali Stubbs, COREY [address] [place] [address] 08/06/2024 9:00 AM EDT Office Visit [facility] [address] [place] [address] Natalie Davis, OD [address] [place] [address] 08/18/2024 10:30 AM EDT Medication Management [facility] [address] [place] [address] Geeta Dove PharmD [address] [place] [address] documented as of this encounter Visit Diagnoses Not on filedocumented in this encounter Care Teams Instrument/Control Technician Relationship Specialty Start Date End Date Name, MD Ananda [address] [place] [address] PCP - General Family Medicine 06/01/15 Geeta Dove PharmD [address] [place] [address] Pharmacist Internal Medicine 07/21/24 documented as of this encounter
--- OUTSIDE RECORDS SUMMARY | 2024-07-23 12:28 | XMS_ITS | Encounter Summary ---
Author Organization [employer] Address [address] [facility] 7t [place] [address] Care Team Providers Care Blade Operator Name Role Phone Name, Ananda CRANDALL Primary Care Provider [phone] Geeta Dove PharmD Unavailable [phone] Reason for Visit * Reason Comments Med Refill Encounter Details Date Type Department Care Team ([place] [facility] st Contact Info) Description 03/08/2024 Refill [facility] [address] [place], [place] [phone] Name, MD Ananda [address] [place] [address] Chronic obstructive pulmonary disease, unspecified COPD type [...] 08/05/2024 9:15 AM EDT Clinical Support [facility] [address] [place] [address] Sonali Stubbs, RN [address] [place] [address] 08/06/2024 9:00 AM EDT Office Visit [facility] [address] [place] [address] Natalie Davis, OD [address] [place] [address] 08/18/2024 10:30 AM EDT Medication Management [facility] [address] [place] [address] Geeta Dove, PharmD [address] [place] [address] documented as of this encounter Visit Diagnoses Diagnosis Chronic obstructive pulmonary disease, unspecified COPD type (CMS/HCC) documented in this encounter Additional Health Concerns Assessment Noted Time PHQ-9 Depression Total Score: 10 024 9:15 AM EDT documented as of this encounter Care Teams Blade Operator Relationship Specialty Start Date End Date Name, MD Ananda [address] [place] [address] [phone] PCP - General Family Medicine 06/01/15 Geeta Dove, LoretoD [address] [place] [address] [place] [address] Pharmacist Internal Medicine 07/21/24 documented as of this encounter
--- OUTSIDE RECORDS SUMMARY | 2024-07-23 12:28 | XMS_ITS | Data Portability ---
Author Organization [employer] [place] [facility] Address [address] [place] [phone] Care Team Providers Care Lieutenant Governor Name Role Phone HIM CCA OTHER Assessment Encounter Date Assessment Date Assessment LastModified by Organization Details LastModified Time 04/23/2024 04/23/2024 I have reviewed and agree with the assessment and plan as documented by the parts counter specialist. I provided real-time medical direction for this encounter and was immediately available to provide additional phone-based assistance as needed. History as noted in EMR and by parts counter specialist. I would add / emphasize: Patient [...] this. Patient was in agreement transported to [facility] subsequently. pallfather Not available 04/24/2024 14:02:36 Plan of Treatment Reminders Order Date Submit Date Provider Last Modified By Organization Details Last Modified Time Details Appointments None recorded. Lab rapid SARS CoV 2 Ag, QL [place], respiratory specimen [address], [id number] 5 14:47:38 rapid flu (A+B) [address], [id number] 5 14:47:39 Referral None recorded. Procedures None [...] SNOMED-CT Code Diagnosis ICD10 Code Diagnosis Note [id number] Dillon Galeano MD Main - [facility] [address] [place] [address] 04/23/2024 18:36:39 04/24/2024 20:56:44 Hypoxemia 691779774 R09.02 Health Concerns Section Related Observation LastModified by Organization Detai ls LastModified Time None Recorded Concern Status LastModified by Organization Details LastModified Time None Recorded Advance Directives Directive None Recorded Payers Insurance Date Sequence Insurance Name Policy Number Policy Tomlin Covered Member ID Tomlin Member ID Guarantor Name 04/23/2024 1 [facility] - DOS ON OR AFTER 2022 - DUAL ELIGIBLE - INTERMEDIATE OPTIONS AND ONE CARE (MEDICARE REPLACEMENT/ADV ANTAGE - HMO) Hubert Rios [id number] Hubert Rios Notes Date Note Type Note [...] does not report any new symptoms- [place] Clinical Program Consultant Organization Information for [facility] Business Legal Name: [employer] Address: [address] [place] [address], [place] [address], [employer] Developer: Gucci VELEZ No.: [id number] Clinical Program Consultant POC Test Results from [facility] Rapid COVID antigen (18:34:09) COVID: - Attachments uploaded as part of this test result can be found under Documents section. Rapid influenza antigen (18:34:10) Flu: - Attachments uploaded as part of this test result can be found under Documents section. .................. .................. .................. .................. .................. .................. .................. ............... Clinical Program Consultant Note From [facility]: Dispatched to above [...] to low 80s, HR increased to 115-120. [facility] contacted, advised of patient complaints, exam findings and test results. [facility] recommends transport to ER for further evaluation due to concerns for PE. Patient agrees with this plan. 911 called, [facility] and [facility] responded. Verbal report given to [facility] Clinical Program Consultant, took over patient care, will transport to [facility]. Sc8 clear. EOR. .................. .................. .................. .................. .................. .................. .................. ............... [facility] Consulted: Dillon Galeano .................. .................. .................. .................. .................. .................. .................. ............... Disposition: Fulfilled Dillon Galeano MD [address] [facility],[address], [place], [address], [employer] 04/24/2024 14:02:45
--- OUTSIDE RECORDS SUMMARY | 2024-07-23 12:28 | XMS_ITS | Encounter Summary ---
Author Organization [employer] Address [address] [facility] [address]t [place] [address] Care Team Providers Care Barrel Endshake Adjuster Name Role Phone Name, Ananda CRANDALL Primary Care Provider [phone] Geeta Dove PharmD Unavailable [phone] Reason for Visit * Reason Comments Med Refill Encounter Details Date Type Department Care Team ([facility] st Contact Info) Description 07/21/2024 Refill [facility] [address] [place], [place] [phone] Teresa Hope DO [address] [place], [place] [phone] Pain of left leg Social History Tobacco [...] Description 08/05/2024 9:15 AM EDT Clinical Support [facility] [address] [place] [address] Sonali Stubbs, RN [address] [place] [address] 08/06/2024 9:00 AM EDT Office Visit [facility] [address] [place] [address] Natalie Davis, OD [address] [place] [address] 08/18/2024 10:30 AM EDT Medication Management [facility] [address] [place] [address] Geeta Dove, PharmD [address] [place] [address] documented as of this encounter Goals Goal [...] documented as of this encounter Care Teams Barrel Endshake Adjuster Relationship Specialty Start Date End Date Name, MD Ananda [address] [place] [address] PCP - General Family Medicine 06/01/15 Geeta Dove PharmD [address] [place] [address] Pharmacist Internal Medicine 07/21/24 documented as of this encounter
--- OUTSIDE RECORDS SUMMARY | 2024-07-23 12:28 | XMS_ITS | Encounter Summary ---
Author Organization [employer] Address [address] [facility] 7t [place] [address] Care Team Providers Care Medical File Clerk Name Role Phone Name, Ananda CRANDALL Primary Care Provider [phone] Geeta Dove PharmD Unavailable [phone] Reason for Visit * Reason Comments Med Refill Encounter Details Date Type Department Care Team ([facility] Contact Info) Description 04/25/2022 Refill [facility] [address] [place] [address] [phone] Name, MD Ananda [address] [place] [address] Wheezing (Primary Dx) Social History Tobacco Use [...] Encounters Date Type Department Care Team ([facility] Contact Info) Description 08/05/2024 9:15 AM EDT Clinical Support [facility] [address] [place] [address] Sonali Stubbs, RN [address] [place] [address] 08/06/2024 9:00 AM EDT Office Visit [facility] [address] [place], [place] [phone] Griseldaclara Natalie, OD [address] [place], [place] 08/18/2024 10:30 AM EDT Medication Management [facility] [address] [place], [place] [phone] Geeta Dove PharmD [address] [place] [address] documented as of this encounter Visit Diagnoses Diagnosis Wheezing- Primary documented in this encounter Care Teams Medical File Clerk Relationship Specialty Start Date End Date Name, MD Ananda [address] [place] [address] PCP - General Family Medicine 06/01/15 Geeta Dove PharmD [address] [place] [address] Pharmacist Internal Medicine 07/21/24 documented as of this encounter
--- OUTSIDE RECORDS SUMMARY | 2024-07-23 12:28 | XMS_ITS | Encounter Summary ---
Author Organization [employer] Address [address] [facility] 7t [place] [address] Care Team Providers Care Literacy Education Professor Name Role Phone Name, Ananda CRANDALL Primary Care Provider [phone] Geeta Dove PharmD Unavailable [phone] Reason for Visit * Reason Comments Med Refill Encounter Details Date Type Department Care Team (Late st Contact Info) Description 12/07/2022 Refill [facility] [address] [place], [place] [phone] Name, MD Ananda [address] [place] [address] Type 2 diabetes mellitus without complication, unspecified whether intermediate insulin use ([facility]); Type 2 diabetes mellitus without complication, with long-term current use of insulin ([facility]) Social History Tobacco Use Types Packs/Day [...] Description 08/05/2024 9:15 AM EDT Clinical Support [facility] [address] [place] [address] Sonali Stubbs, RN [address] [place], [place] 08/06/2024 9:00 AM EDT Office Visit [facility] [address] [place] [address] Tarclara Natalie, OD [address] [place] [address] 08/18/2024 10:30 AM EDT Medication Management [facility] [address] [place] [address] Geeta Dove PharmD [address] [place] [address] documented as of this encounter Visit Diagnoses Diagnosis Type 2 diabetes mellitus without complication, unspecified whether rn long term care insulin use ([facility]) documented in this encounter Additional Health Concerns Assessment Noted Time PHQ-9 Depression Total Score: 3 10/04/19 23 2:21 PM EDT documented as of this encounter Care Teams Literacy Education Professor Relationship Specialty Start Date End Date Name, MD Ananda [address] [place] [address] PCP - General Family Medicine 06/01/15 Geeta Dove PharmD [address] [place] [address] Pharmacist Internal Medicine 07/21/24 documented as of this encounter
--- OUTSIDE RECORDS SUMMARY | 2024-07-23 12:29 | XMS_ITS | Encounter Summary ---
Author Organization [employer] Address [address] [facility] [address]t [place] [address] Care Team Providers Care Shovel Oiler Name Role Phone Name, Ananda CRANDALL Primary Care Provider [phone] Geeta Dove PharmD Unavailable [phone] Reason for Visit * Reason Comments Med Refill Encounter Details Date Type Department Care Team (Late st Contact Info) Description 09/19/2023 Refill [facility] PEDS [address] [place], [place] [phone] Name, MD Ananda [address] [place] [address] Pain of left leg Social History Tobacco [...] Description 08/05/2024 9:15 AM EDT Clinical Support [facility] MEDICINE [address] [place] [address] Sonali Stubbs, COREY [address] [place] [address] 08/06/2024 9:00 AM EDT Office Visit [facility] OPTOMETRY [address] [place] [address] Natalie Davis, OD [address] [place] [address] 08/18/2024 10:30 AM EDT Medication Management [facility] MEDICINE [address] [place] [address] Geeta Dove, PharmD [address] [place] [address] documented as of this encounter Visit Diagnoses Diagnosis Pain of left leg documented in this encounter Additional Health Concerns Assessment Noted Time PHQ-9 Depression Total Score: 10 024 9:15 AM EDT documented as of this encounter Care Teams Shovel Oiler Relationship Specialty Start Date End Date Name, MD Ananda [address] [place] [address] PCP - General Family Medicine 06/01/15 Geeta Dove, LoretoD [address] [place] [address] Pharmacist Internal Medicine 07/21/24 documented as of this encounter
--- OUTSIDE RECORDS SUMMARY | 2024-07-23 12:29 | XMS_ITS | Encounter Summary ---
Author Organization [employer] Address 75 [facility] 7t [place] [address] Care Team Providers Care Software Release Manager Name Role Phone Name, Ananda CRANDALL Primary Care Provider [phone] Geeta Dove PharmD Unavailable [phone] Encounter Details Date Type Department Care Team (Late Contact Info) Description 08/13/2022 Abstract [facility] MEDICINE [address] [place] [phone] Name, MD Ananda [address] [place] [address] Social History Tobacco Use Types Packs/Day Years [...] Description 08/05/2024 9:15 AM EDT Clinical Support [facility] [address] [place] [address] Sonali Stubbs, RN 230 [place] [address] 08/06/2024 9:00 AM EDT Office Visit [facility] OPTOMETRY [address] [place] [address] Natalie Davis, OD [address] [place] [address] 08/18/2024 10:30 AM EDT Medication Management [facility] MEDIC[facility] [address] [place] [address] Geeta Dove PharmD 230 [place] [address] documented as of this encounter Procedures Procedure [...] filedocumented in this encounter Care Teams Software Release Manager Relationship Specialty Start Date End Date Name, MD Ananda [address] [place] [address] PCP - General Family Medicine 06/01/15 Geeta Dove, LoretoD [address] [place] [address] Pharmacist Internal Medicine 07/21/24 documented as of this encounter
--- OUTSIDE RECORDS SUMMARY | 2024-07-23 12:29 | XMS_ITS | Encounter Summary ---
Author Organization [employer] Address 75 [facility] 7t [place] [address] Care Team Providers Care Sailing Officer Name Role Phone Name, Ananda CRANDALL Primary Care Provider [phone] Geeta Dove PharmD Unavailable [phone] Reason for Visit * Reason Comments Med Refill Encounter Details Date Type Department Care Team ([facility] st Contact Info) Description 12/11/2023 Refill [facility] MEDICINE [address] [place], [place] [phone] Name, MD Ananda [address] [place] [address] Type 2 diabetes mellitus without complication, unspecified whether usp insulin use ([facility]) Social History Tobacco Use Types [...] 9:15 AM EDT Clinical Support [facility] MEDICINE [address] [place] [address] Sonali Stubbs, COREY [address] [place] [address] 08/06/2024 9:00 AM EDT Office Visit [facility] OPTOMETRY [address] [place] [address] Natalie Davis, OD [address] [place] [address] 08/18/2024 10:30 AM EDT Medication Management [facility] MEDICINE [address] [place] [address] Geeta Dove, PharmD [address] [place] [address] documented as of this encounter Visit Diagnoses Diagnosis Type 2 diabetes mellitus without complication, unspecified whether usp insulin use ([facility]) documented in this encounter Additional Health Concerns Assessment Noted Time PHQ-9 Depression Total Score: 10 024 9:15 AM EDT documented as of this encounter Care Teams Sailing Officer Relationship Specialty Start Date End Date Name, MD Ananda [address] [place] [address] PCP - General Family Medicine 06/01/15 Geeta Dove PharmD [address] [place] [address] Pharmacist Internal Medicine 07/21/24 documented as of this encounter
--- OUTSIDE RECORDS SUMMARY | 2024-07-23 12:29 | XMS_ITS | Encounter Summary ---
Author Organization [employer] Address 75 [facility] 7t [place] [address] Care Team Providers Care Pulp Operator Name Role Phone Name, Ananda CRANDALL Primary Care Provider [phone] Geeta Dove PharmD Unavailable [phone] Reason for Visit * Reason Onset Date Comments Durable Medical Equipment 06/08/2022 Encounter Details Date Type Department Care Team ([facility] st Contact Info) Description 06/08/[address] [facility] MEDICINE [address] [place], [place] [phone] Name, MD Ananda [address] [place] [address] Durable Medical Equipment Social History Tobacco Use [...] states unable to get a hold of human service coordinator and would like to know if PCP can send script directly to [facility] . Please contact at [phone] * Telephone Encounter - Arleen Ramirez - 06/11/2022 11:28 AM EDT TC to patient and informed him to contact his career technical education teacher as a script for a recliner was emailed to her previously. Patient understood and agreed with plan. * Telephone Encounter - Darian Joiner - 06/08/2022 4:29 PM EDT Tc from pt requesting a script for a recliner chair to be send to [facility] please contact pt at [phone] documented in this encounter Plan of Treatment Upcoming Encounters Date Type Department Care Team (Late st Contact Info) Description 08/05/2024 9:15 AM EDT Clinical Support [facility] [address] [place] [address] Sonali Stubbs, COREY [address] [place] [address] 08/06/2024 9:00 AM EDT Office Visit [facility] OPTOMETRY [address] [place] [address] Natalie Davis, OD [address] [place] [address] 08/18/2024 10:30 AM EDT Medication Management [facility] [address] [place] [address] Geeta Dove, LoretoD [address] [place] [address] documented as of this encounter Visit Diagnoses Not on filedocumented in this encounter Care Teams Pulp Operator Relationship Specialty Start Date End Date Name, MD Ananda [address] [place], [place] [phone] PCP - General Family Medicine 06/01/15 Geeta Dove PharmD [address] [place] [address] Pharmacist Internal Medicine 07/21/24 documented as of this encounter
--- OUTSIDE RECORDS SUMMARY | 2024-07-23 12:29 | XMS_ITS | Encounter Summary ---
Author Organization [employer] Address 75 [facility] 7t [place] [address] Care Team Providers Care Small Engine Specialist Name Role Phone Name, Ananda CRANDALL Primary Care Provider [phone] Geeta Dove PharmD Unavailable [phone] Reason for Visit * Reason Onset Date Comments ER Follow-up 09/26/2022 Encounter Details Date Type Department Care Team ([facility] st Contact Info) Description 09/26/2022 Telephone [facility] MEDICINE [address] [place], [place] [phone] Name, MD Ananda 230 [place] [address] ER Follow-up Social History Tobacco Use Types [...] 10:24 AM EDT T/c to pt. Through [employer] id - [id number] for below message, pt. Has surgery at [facility] for non - pressure chronic ulcer of [...] in case of any new or worseningsymptoms. [facility] hours are reviewed. * Telephone Encounter - Hawa Morales - 10/01/2022 9:35 AM EDT Tc from pt returning call regarding message below. Please contact pt at [phone] (frisian speaker) * Telephone Encounter - Em Leblanc RN - 09/27/2022 3:29 PM EDT T/C to pt. On [phone] through [employer] id - [id number] for status check and to schedule follow up apt. No answer. LVM to call back on [phone]. * Telephone Encounter - Netta Alvares - 09/26/2022 11:04 AM EDT Tc from pt calling to advise PCP of an ER visit to [facility] on 09/24/22 for surgery on the left leg. Pt advised will forward to team nurse for f/u. Please contact pt at [phone] (Peruvian) documented in this encounter Plan of Treatment Upcoming Encounters Date Type Department Care Team (Late st Contact Info) Description 08/05/2024 9:15 AM EDT Clinical Support [facility] MEDICINE [address] [place] [address] Sonali Stubbs, RN [address] [place] [address] 08/06/2024 9:00 AM EDT Office Visit [facility] OPTOMETRY [address] [place] [address] Natalie Davis, OD [address] [place] [address] 08/18/2024 10:30 AM EDT Medication Management [facility] MEDICINE [address] [place] [address] Geeta Dove PharmD [address] [place] [address] documented as of this encounter Visit Diagnoses Not on filedocumented in this encounter Care Teams Small Engine Specialist Relationship Specialty Start Date End Date Name, MD Ananda [address] [place] [address] PCP - General Family Medicine 06/01/15 Geeta Dove PharmD [address] [place] [address] Pharmacist Internal Medicine 07/21/24 documented as of this encounter
--- OUTSIDE RECORDS SUMMARY | 2024-07-23 12:29 | XMS_ITS | Encounter Summary ---
Author Organization [employer] Address 75 [facility] 7t [place] [address] Care Team Providers Care Batch Unloader Name Role Phone Name, Ananda CRANDALL Primary Care Provider [phone] Geeta Dove PharmD Unavailable [phone] Reason for Visit * Reason Onset Date Comments Durable Medical Equipment 09/18/2022 Encounter Details Date Type Department Care Team ([facility] st Contact Info) Description 09/18/2022 Telephone [facility] MEDICINE [address] [place], [place] [phone] Name, MD Ananda [address] [place] [address] Durable Medical Equipment Social History Tobacco Use [...] 09/21/2022 1:49 PM EDT Incoming call from [facility] PT regarding message below. [facility] PT states they have no record of pt ever going to their offices and getting PT. Unsure what next steps should be at this point. * Telephone Encounter - Christy Finn RN - 09/21/2022 1:39 PM EDT TC X1 to [facility] PT [phone] regarding message below. LVM to return call to nurses. * Telephone Encounter - Lauren Walsh - 09/20/2022 3:14 PM EDT Tc from patient returning call back, regarding message below. Patient states he's going to PT in [facility]. [address] [place] [address] [place] [address] [address] Mcdaniel. * Telephone Encounter - Christy [...] Description 08/05/2024 9:15 AM EDT Clinical Support [address] [place] [address] Sonali Stubbs, RN [address] [place] [address] 08/06/2024 9:00 AM EDT Office Visit [facility] OPTOMETRY [address] [place], [place] [phone] Griseldaclara Natalie, OD [address] [place] [address] 08/18/2024 10:30 AM EDT Medication Management [facility] MEDICINE [address] [place], [place] [phone] Geeta Dove PharmD [address] [place] [address] documented as of this encounter Visit Diagnoses Not on filedocumented in this encounter Care Teams Batch Unloader Relationship Specialty Start Date End Date Name, MD Ananda [address] [place] [address] PCP - General Family Medicine 06/01/15 Geeta Dove PharmD [address] [place] [address] Pharmacist Internal Medicine 07/21/24 documented as of this encounter
--- OUTSIDE RECORDS SUMMARY | 2024-07-23 12:29 | XMS_ITS | Encounter Summary ---
Author Organization [employer] Address [address] [facility] [address] 7t [place] [address] Care Team Providers Care Acid Leveler Name Role Phone Name, Ananda CRANDALL Primary Care Provider [phone] Geeta Dove PharmD Unavailable [phone] Reason for Visit * Reason Comments Med Refill Encounter Details Date Type Department Care Team ([facility] Contact Info) Description 06/07/2022 Refill [facility] [address] [place] [address] Sebastián Graves MD [address] [place] [address] Pain of left leg Social History Tobacco [...] Upcoming Encounters Date Type Department Care Team ([facility] Contact Info) Description 08/05/2024 9:15 AM EDT Clinical Support [facility] MEDICINE [address] [place] [address] Sonali Stubbs, RN [address] [place] [address] 08/06/2024 9:00 AM EDT Office Visit [facility] OPTOMETRY [address] [place] [address] Ryan Natalie, OD [address] [place] [address] 08/18/2024 10:30 AM EDT Medication Management [facility] MEDICINE 230 [place] [address] Geeta Dove PharmD [address] [place] [address] documented as of this encounter Visit Diagnoses Diagnosis Pain of left leg documented in this encounter Care Teams Acid Leveler Relationship Specialty Start Date End Date Name, MD Ananda [address] [place] [address] PCP - General Family Medicine 06/01/15 Geeta Dove PharmD [address] [place] [address] Pharmacist Internal Medicine 07/21/24 documented as of this encounter
--- NOTE | 2024-07-23 12:57 | PFT_ITS ---
Flows: FEV1: 83 % of predicted at 2.66 L FVC: 92 % of predicted at 3.76 L FEV1/FVC: 71 % Bronchodilator response: Absent Volumes: Total lung capacity: 98 % of predicted at 6.19 L Residual volume: 133 % of predicted at 2.51 L Slow vital capacity: 82 % of predicted at 3.68 L Expiratory reserve volume: 140 % of predicted at 1.55 L Diffusion capacity: Normal Impression: Reversible mild obstructive ventilatory defect with no bronchodilator response. Increased residual volume suggests air trapping. MTDD
[2024-07-23 13:40] VITALS: PULSE 73; O2SAT 97
== END 2024-07-23 12:16 | disposition home or self-care (01) ==
LOC: HO.RESP 12:15
PROVIDERS: PCP Internal Medicine Geriatric Medicine; Visit Provider Nurse Practitioner Family
DX: J44.9 Chronic obstructive pulmonary disease, unspecified (principal)
CPT/HCPCS: 94010; 94640; 94727; 94729

== ENCOUNTER → 2024-07-23 12:57 | Outpatient (BNV) | payer OTHER, SELFPAY | PROVIDERS: PCP Internal Medicine Geriatric Medicine; Visit Provider Internal Medicine Pulmonary Disease | DX: J44.9 Chronic obstructive pulmonary disease, unspecified (principal) | CPT/HCPCS: 94060; 94727; 94729 ==

== ENCOUNTER 2024-07-24 11:09 | Outpatient (AMB) | payer OTHER, SELFPAY ==
--- OUTSIDE RECORDS SUMMARY | 2024-07-24 11:15 | XMS_ITS | Encounter Summary ---
Author Organization [employer] Address 75 [facility] 7t [place] [address] Care Team Providers Care Telemarketing Agent Name Role Phone Name, Ananda CRANDALL Primary Care Provider [phone] Geeta Dove PharmD Unavailable [phone] Reason for Visit * Reason Comments Med Refill Encounter Details Date Type Department Care Team ([facility] Contact Info) Description 04/25/2022 Refill [facility] MEDICINE [address] [place] [address] [phone] Name, MD Ananda [address] [place] [phone] Wheezing (Primary Dx) Social History Tobacco Use [...] Date Type Department Care Team ([facility] Contact Info) Description 08/05/2024 9:15 AM EDT Clinical Support [facility] MEDICINE [address] [place] [address] Sonali Stubbs, RN 230 [place] [address] 08/06/2024 9:00 AM EDT Office Visit [facility] OPTOMETRY [address] [place], [place] [phone] Griseldaclara Natalie, OD [address] [place], [place] 08/18/2024 10:30 AM EDT Medication Management [facility] MEDICINE [address] [place], [place] [phone] Geeta Dove PharmD 230 [place] [address] documented as of this encounter Visit Diagnoses Diagnosis Wheezing- Primary documented in this encounter Care Teams Telemarketing Agent Relationship Specialty Start Date End Date Name, MD Ananda [address] [place] [address] PCP - General Family Medicine 06/01/15 Geeta Dove PharmD [address] [place] [address] Pharmacist Internal Medicine 07/21/24 documented as of this encounter
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
[2024-07-24 11:25] VITALS: BP 110/56; PULSE 91; O2SAT 94; BMI 20.2
[2024-07-24 11:56] VITALS: PULSE 90; O2SAT 95
== END 2024-07-24 11:50 | disposition home or self-care (01) ==
LOC: HO.HPSW 11:09
PROVIDERS: PCP Internal Medicine Geriatric Medicine; Visit Provider Nurse Practitioner Family
DX: J44.9 Chronic obstructive pulmonary disease, unspecified (principal); F17.210 Nicotine dependence, cigarettes, uncomplicated; R93.89 Abnormal findings on diagnostic imaging of other specified body structures; R91.8 Other nonspecific abnormal finding of lung field
CPT/HCPCS: 99214

== ENCOUNTER → 2024-07-24 11:09 | Outpatient (BNVA) | payer OTHER, SELFPAY | PROVIDERS: PCP Internal Medicine Geriatric Medicine; Visit Provider Nurse Practitioner Family | DX: J44.9 Chronic obstructive pulmonary disease, unspecified (principal); R93.89 Abnormal findings on diagnostic imaging of other specified body structures; R91.8 Other nonspecific abnormal finding of lung field; G47.34 Idiopathic sleep related nonobstructive alveolar hypoventilation; F17.210 Nicotine dependence, cigarettes, uncomplicated; Z99.81 Dependence on supplemental oxygen | CPT/HCPCS: 99212 ==

== ENCOUNTER 2024-08-11 08:01 | Outpatient (AMB) | payer OTHER, SELFPAY ==
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
--- OUTSIDE RECORDS SUMMARY | 2024-08-11 08:06 | XMS_ITS | Encounter Summary ---
Author Organization [employer] Address [address] [facility] [address] [place] [address] Care Team Providers Care Backend Python Developer Name Role Phone Name, Ananda CRANDALL Primary Care Provider [phone] Geeta Dove PharmD Unavailable [phone] Reason for Visit * Reason Comments Med Refill Encounter Details Date Type Department Care Team ([facility] Contact Info) Description 04/25/2022 Refill [facility] [address] [place] [phone] Name, MD Ananda [address] [place] [phone] Wheezing (Primary Dx) Social History Tobacco Use [...] ([facility] Contact Info) Description 08/18/2024 10:30 AM EDT Medication Management [facility] [address] [place] [address] [phone] Geeta Dove PharmD [address] [place] [phone] 09/02/2024 9:00 AM EDT Clinical Support [address] [address] Melvina Macias, RN [address] [place] [phone] 11/10/2024 9:15 AM EDT Office Visit [address] [address] Name, MD Ananda [address] [place] [phone] documented as of this encounter Visit Diagnoses Diagnosis Wheezing- Primary documented in this encounter Care Teams Backend Python Developer Relationship Specialty Start Date End Date Name, MD Ananda [address] [place] [phone] PCP - General Family Medicine 06/01/15 Geeta Dove, PharmD [address] [place] [phone] Pharmacist Internal Medicine 07/21/24 documented as of this encounter
[2024-08-11 08:15] VITALS: BP 116/68; PULSE 76; O2SAT 96; BMI 19.6
[2024-08-11 08:25] LABS: Glucose, Whole Blood 191 mg/dL (60-115)
== END 2024-08-11 08:39 | disposition home or self-care (01) ==
LOC: HO.ENCR 08:02
PROVIDERS: PCP Internal Medicine Geriatric Medicine; Visit Provider Nurse Practitioner Adult Health
DX: E13.9 Other specified diabetes mellitus without complications (principal)
CPT/HCPCS: 95251; 99214; G2211

== ENCOUNTER → 2024-08-11 08:01 | Outpatient (BNVA) | payer OTHER, SELFPAY | PROVIDERS: PCP Internal Medicine Geriatric Medicine; Visit Provider Nurse Practitioner Adult Health | DX: E13.9 Other specified diabetes mellitus without complications (principal) | CPT/HCPCS: 82947; 99212 ==

== ENCOUNTER 2024-08-26 08:31 | Outpatient (AMB) | payer OTHER, SELFPAY ==
--- OUTSIDE RECORDS SUMMARY | 2024-08-26 08:50 | XMS_ITS | Encounter Summary ---
Author Organization [employer] Address [address] [facility] [address] [place] [address] Care Team Providers Care Corporate Trust Officer Name Role Phone Name, Ananda CRANDALL Primary Care Provider [phone] Geeta Dove PharmD Unavailable [phone] Reason for Visit * Reason Comments Med Refill Encounter Details Date Type Department Care Team ([facility] st Contact Info) Description 08/23/2024 Refill [facility] [address] [place], [place] [phone] Name, MD Ananda [address] [place] [address] Chronic obstructive pulmonary disease, unspecified COPD type (CMS/HCC) Social History Tobacco Use Types Packs/Day Years Used Date Smoking Tobacco: Every Day Cigarettes 2.8 14.1 Started: 07/21/2010 Passive Smoke Exposure: Current Smokeless [...] Care Team (Late st Contact Info) Description 09/02/2024 9:00 AM EDT Clinical Support [facility] [address] [place] [phone] Melvina Macias, COREY [address] [place] [phone] 09/08/2024 9:30 AM EDT Medication Management [facility] [address] [place] [phone] Geeta Dove, PharmD [address] [place] [phone] 11/10/2024 9:15 AM EDT Office Visit [facility] [address] [place] [phone] Name, MD Ananda [address] [place] [phone] 02/05/2025 9:45 AM EST Office Visit [facility] OPTOMETRY [address] [place] [phone] Natalie Davis, OD [address] [place] [address] documented as of this encounter Goals Goal Patient Goal Type Associated Problems Recent Progress Patient-Stated? Author Increase coping skills to promote long-term recovery and improve ability to perform daily activities General On track( 9:37 AM EDT) No Sonali Stubbs, RN Reduce tobacco use (cigarettes, smokeless, etc) Tobacco Use On track( 025 9:37 AM EDT) No Sonali Stubbs, RN Note: 1-2 cigs per day documented as of this encounter Visit Diagnoses Diagnosis Chronic obstructive pulmonary disease, unspecified COPD type (CMS/HCC) documented in this encounter Additional Health Concerns Assessment Noted Time PHQ-9 Depression Total Score: 5 07/16/19 11:03 AM EDT documented as of this encounter Care Teams Corporate Trust Officer Relationship Specialty Start Date End Date Name, MD Ananda [address] [place] [address] PCP - General Family Medicine 06/01/15 Geeta Dove PharmD [address] [place] [phone] Pharmacist Internal Medicine 07/21/24 documented as of this encounter
[2024-08-26 09:12] VITALS: BMI 19.6
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
== END 2024-08-26 09:34 | disposition home or self-care (01) ==
LOC: HO.ENCR 08:32
PROVIDERS: PCP Internal Medicine Geriatric Medicine; Visit Provider Dietitian, Registered
DX: E13.9 Other specified diabetes mellitus without complications (principal)

== ENCOUNTER → 2024-08-26 08:31 | Outpatient (BNVA) | payer OTHER, SELFPAY | PROVIDERS: PCP Internal Medicine Geriatric Medicine; Visit Provider Dietitian, Registered | DX: Z71.3 Dietary counseling and surveillance (principal); E13.9 Other specified diabetes mellitus without complications | CPT/HCPCS: 97803 ==

== ENCOUNTER 2024-08-31 08:51 | Outpatient (AMB) | payer OTHER, SELFPAY ==
--- OUTSIDE RECORDS SUMMARY | 2024-08-31 09:05 | XMS_ITS | Encounter Summary ---
Author Organization [employer] Address [address] [facility] [address] [place] [address] Care Team Providers Care Traveling Crane Operator Name Role Phone Name, Ananda CRANDALL Primary Care Provider [phone] Geeta Dove PharmD Unavailable [phone] Encounter Details Date Type Department Care Team (Latest Contact Info) Description 01/06/2019 Abstract [facility] Dental, Provider, DDS Social History Tobacco [...] Care Team ( st Contact Info) Description 09/02/2024 9:00 AM EDT Clinical Support [facility] [address] [place] [phone] Melvina Macias, COREY [address] [place] [address] 09/08/2024 9:30 AM EDT Medication Management [facility] [address] [place] [phone] Geeta Dove, PharmD [address] [place] [address] 09/30/2024 9:15 AM EDT Clinical Support [facility] [address] [place] [phone] Maya Jolly, COREY 11/10/2024 9:15 AM EDT Office Visit [facility] [address] [place] [phone] Name, MD Ananda [address] [place] [phone] 02/05/2025 9:45 AM EST Office Visit [facility] [address] [place], [place] [phone] Natalie Davis, OD [address] [place] [address] documented as of this encounter Visit Diagnoses Not on filedocumented in this encounter Care Teams Traveling Crane Operator Relationship Specialty Start Date End Date Name, MD Ananda [address] [place] [phone] PCP - General Family Medicine 06/01/15 Geeta Dove PharmD [address] [place] [phone] Pharmacist Internal Medicine 07/21/24 documented as of this encounter
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
== END 2024-08-31 09:37 | disposition home or self-care (01) ==
LOC: HO.ENCR 08:52
PROVIDERS: PCP Internal Medicine Geriatric Medicine; Visit Provider Registered Nurse Diabetes Educator
DX: E13.9 Other specified diabetes mellitus without complications (principal)

== ENCOUNTER → 2024-08-31 08:51 | Outpatient (BNVA) | payer OTHER, SELFPAY | PROVIDERS: PCP Internal Medicine Geriatric Medicine; Visit Provider Registered Nurse Diabetes Educator | DX: Z46.81 Encounter for fitting and adjustment of insulin pump (principal); E13.9 Other specified diabetes mellitus without complications | CPT/HCPCS: 99211 ==

== ENCOUNTER 2024-09-30 10:46 | Outpatient (REF) | payer OTHER, SELFPAY ==
--- NOTE | ~2024-09-30 | US_ITS ---
CLINICAL HISTORY: I73.9 - Peripheral vascular disease, unspecified --- Additional Notes or Special Instructions: prior heavy smoker in a diabetic patient Ankle-brachial index Comparison: None Findings: Right brachial artery 146 mmHg Right posterior tibial artery 161 mmHg Right dorsalis pedis artery 158 mmHg Left brachial artery 146 mmHg Left posterior tibial artery 159 mmHg Left dorsalis pedis artery 150 mmHg Impression: 1. Right JANAE 1.10 2. Left JANAE 1.09 This document has been electronically signed by: Yarely Allan MD on 09/30/2024 13:41:30
--- OUTSIDE RECORDS SUMMARY | 2024-09-30 11:45 | XMS_ITS | Encounter Summary ---
Author Organization [employer] Address [address] [facility] [address] [place] [address] Care Team Providers Care Necktie Centralizing Machine Operator Name Role Phone Name, Ananda CRANDALL Primary Care Provider [phone] Geeta Dove PharmD Unavailable [phone] Encounter Details Date Type Department Care Team (Latest Contact Info) Description 09/29/2024 Travel Social History Tobacco Use Types Packs/Day Years Used Date Smoking Tobacco: Every Day Cigarettes 2.8 14.2 Started: 07/21/2010 Passive Smoke Exposure: Current Smokeless [...] Care Team (Late st Contact Info) Description 10/28/2024 9:00 AM EDT Office Visit [facility] [address] [place] [phone] Latrice Ibrahim MD [address] [place] [phone] 10/29/2024 9:00 AM EDT Medication Management [facility] [address] [place] [phone] Geeta Dove, PharmD [address] [place] [phone] 11/10/2024 9:15 AM EDT Office Visit [facility] [address] [place] [phone] Ananda Spain MD [address] [place] [address] 02/05/2025 9:45 AM EST Office Visit [facility] [address] [place] [address] Natalie Davis OD [address] [place] [address] documented as of this encounter Goals Goal Patient Goal Type Associated Problems Recent Progress Patient-Stated? Author Increase coping skills to promote long-term recovery and improve ability to perform daily activities General On track( 025 9:37 AM EDT) No [...] documented as of this encounter Care Teams Necktie Centralizing Machine Operator Relationship Specialty Start Date End Date Name, MD Ananda [address] [place] [address] PCP - General Family Medicine 06/01/15 Geeta Dove PharmD [address] [place] [address] Pharmacist Internal Medicine 07/21/24 documented as of this encounter
== END 2024-09-30 10:47 | disposition home or self-care (01) ==
LOC: HO.US 10:46
PROVIDERS: PCP Internal Medicine Geriatric Medicine; Visit Provider Nurse Practitioner Adult Health
DX: I73.9 Peripheral vascular disease, unspecified (principal)
CPT/HCPCS: 93923

== ENCOUNTER → 2024-09-30 10:48 | Outpatient (BNV) | payer OTHER, SELFPAY | PROVIDERS: PCP Internal Medicine Geriatric Medicine; Visit Provider Radiology Diagnostic Radiology | DX: I73.9 Peripheral vascular disease, unspecified (principal) | CPT/HCPCS: 93923 ==

== ENCOUNTER 2024-10-09 08:16 | Outpatient (REF) | payer OTHER, SELFPAY ==
[2024-10-09 08:27] LABS: MANUAL DIFF FLAG NO
--- OUTSIDE RECORDS SUMMARY | 2024-10-09 08:27 | XMS_ITS | Encounter Summary ---
Author Organization [employer] Address [address] [place] [address] 7[address] [place] [address] Care Team Providers Care Emergency Medicine Name Role Phone Name, Ananda CRANDALL Primary Care Provider [phone] Geeta Dove PharmD Unavailable [phone] Encounter Details Date Type Department Care Team (Latest Contact Info) Description 01/06/2019 Abstract [facility] CONVERSIONS Dental, Provider, DDS Social History [...] Care Team ( st Contact Info) Description 10/28/2024 9:00 AM EDT Office Visit [facility] [address] [place] [phone] Latrice Ibrahim MD [address] [place] [phone] 10/29/2024 9:00 AM EDT Medication Management [facility] [address] [place] [phone] Geeta Dove, PharmD [address] [place] [phone] 11/10/2024 9:15 AM EDT Office Visit [address] [address] Name, MD Ananda [address] [place] [address] 02/05/2025 9:45 AM EST Office Visit [facility] [address] [place], [place] [phone] Griseldaclara Natalie, OD [address] [place], [place] [phone] documented as of this encounter Visit Diagnoses Not on filedocumented in this encounter Care Teams Emergency Medicine Relationship Specialty Start Date End Date Name, MD Ananda [address] [place] [phone] PCP - General Family Medicine 06/01/15 Geeta Dove, Donte [address] [place] [phone] Pharmacist Internal Medicine 07/21/24 documented as of this encounter
[2024-10-09 09:13] LABS: Hematocrit 40.9 % (42.0-52.0); Hemoglobin 13.5 g/dl (14.0-18.0); Imm Gran Abs Auto 0.02 X10*3/uL (0.00-0.03); Imm Gran Pct Auto 0.3 % (0.0-0.4); Lymphocytes Absolute Auto 1.9 X10*3/uL (1.2-4.9); Mean Corpuscular HGB Conc 33.0 g/dl (31.0-36.0); Mean Corpuscular Hemoglobin 29.6 pg (27.0-33.0); Mean Corpuscular Volume 89.7 fL (80.0-98.0); NRBC Abs Auto 0.000 X10*3/uL (0.0-0.012); NRBC Pct Auto 0.0 /100WBC (0.0-0.2); Platelet Count 237 X10*3/uL (160-400); Red Blood Count 4.56 X10*6/uL (4.60-5.80); White Blood Count 5.9 X10*3/uL (4.8-10.8)
[2024-10-17 05:28] LABS: Class Alternaria alternata 0; Class Aspergillus fumigatus 0; Class Bermuda Grass 0; Class Birch 0; Class Cat Dander 0; Class Cladosporium herbarum 0; Class Cockroach 0/1; Class Common Ragweed 0/1; Class Cottonwood 0; Class Derm. pterony 2; Class Dermatophagoides farinae 2; Class Dog Dander 0; Class Elm 0; Class Maple Box Elder 0; Class Mountain Cedar 0; Class Mouse Urine Protein 0; Class Mugwort 0; Class Oak 0; Class Penicillium crysogenum 0; Class Rough Pigweed 0; Class Sheep Sorrel 0; Class Sycamore 0; Class Timothy Grass 0; Class Walnut Tree 0; Class White Ash 0; Class White Mulberry 0; D002 - IgE D farinae 0.99 kU/L; E001 - IgE Cat Dander <0.10 kU/L; E005 - IgE Dog Dander <0.10 kU/L; G006 - IgE Timothy Grass <0.10 kU/L; I006-IgE Cockroach, German 0.17 kU/L; M002 - IgE Cladosporium herbar <0.10 kU/L; M003 - IgE Aspergillus fumigat <0.10 kU/L; M006 - IgE Alternaria alternat <0.10 kU/L; T001 IgE Maple/Box Elder <0.10 kU/L; T006 - IgE Cedar, Mountain <0.10 kU/L; T007 - IgE Oak, White <0.10 kU/L; T008 IgE Elm, American <0.10 kU/L; T010 - IgE Walnut <0.10 kU/L; T011 - IgE Maple Leaf Sycamore <0.10 kU/L; T014 - IgE Cottonwood <0.10 kU/L; T015 - IgE Ash, White <0.10 kU/L; T070 - IgE White Mulberry <0.10 kU/L; W001 - IgE Ragweed, Short 0.12 kU/L; W006 - IgE Mugwort <0.10 kU/L; W014 IgE Pigweed, Common <0.10 kU/L; W018 IgE Sheep Sorrel <0.10 kU/L
== END 2024-10-09 08:17 | disposition home or self-care (01) ==
LOC: HO.LAB 08:16
PROVIDERS: PCP Internal Medicine Geriatric Medicine; Visit Provider Nurse Practitioner Family
DX: Z01.84 Encounter for antibody response examination (principal); Z91.09 Other allergy status, other than to drugs and biological substances
CPT/HCPCS: 36415; 82785; 85025; 86003

== ENCOUNTER 2024-10-13 08:40 | Outpatient (AMB) | payer OTHER, SELFPAY ==
[2024-10-13 08:42] VITALS: BP 116/66; PULSE 104; O2SAT 93; BMI 19.7
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
[2024-10-13 08:53] LABS: Glucose, Whole Blood 93 mg/dL (60-115)
--- OUTSIDE RECORDS SUMMARY | 2024-10-13 08:55 | XMS_ITS | Encounter Summary ---
Author Organization [employer] Address [address] [facility] [address] [place] [address] Care Team Providers Care Restaurant Server Name Role Phone Name, Ananda CRANDALL Primary Care Provider [phone] Geeta Dove PharmD Unavailable [phone] Encounter Details Date Type Department Care Team ([facility] Contact Info) Description 10/13/2024 Orders Only GENERIC EXTERNAL DATA DEPARTMENT Provider, Generic External Data Social History Tobacco Use Types Packs/Day Years Used Date Smoking Tobacco: Every Day Cigarettes 2.7 14.2 Started: 07/21/2010 Passive Smoke Exposure: Current [...] Upcoming Encounters Date Type Department Care Team ([facility] st Contact Info) Description 10/28/2024 9:00 AM EDT Office Visit [facility] MEDICINE [address] [place] [phone] Latrice Ibrahim MD [address] [place] [phone] 10/29/2024 9:00 AM EDT Medication Management [facility] [address] [place] [phone] Geeta Dove, PharmD [address] [place] [phone] 11/10/2024 9:15 AM EDT Office Visit [facility] MEDICINE [address] [place] [phone] Ananda Spain MD [address] [place] [phone] 02/05/2025 9:45 AM EST Office Visit [facility] OPTOMETRY [address] [place] [phone] Natalie Davis, OD [address] [place] [address] documented as of this encounter Goals Goal [...] Associated Diagnosis Comments GLUCOSE, WHOLE BLOOD Routine 10/13/2024 8:50 AM EDT documented in this encounter Results * Glucose, Whole Blood (10/13/2024 8:50 AM EDT) Glucose, Whole Blood 93 60 - 115 mg/dL [facility] Comment:METER #: [id number] Testing performed in the Endocrinology Department [address] , [address], [facility]. 10/13/2024 8:50 AM EDT 10/13/2024 8:53 AM EDT us Generic External Data Provider LAB BLOOD ORDERAB LES Final Result [facility] [address] [place] [phone] documented in this encounter Visit Diagnoses Not on filedocumented in this encounter Additional Health Concerns Assessment Noted Time PHQ-9 Depression Total Score: 5 07/16/19 11:03 AM EDT documented as of this encounter Care Teams Restaurant Server Relationship Specialty Start Date End Date Name, MD Ananda [address] [place] [address] PCP - General Family Medicine 06/01/15 Geeta Dove PharmD [address] [place] [address] Pharmacist Internal Medicine 07/21/24 documented as of this encounter
== END 2024-10-13 09:22 | disposition home or self-care (01) ==
LOC: HO.ENCR 08:40
PROVIDERS: PCP Internal Medicine Geriatric Medicine; Visit Provider Student in an Organized Health Care Education/Training Program
DX: E13.9 Other specified diabetes mellitus without complications (principal)
CPT/HCPCS: 95251; 99214

== ENCOUNTER → 2024-10-13 08:40 | Outpatient (BNVA) | payer OTHER, SELFPAY | PROVIDERS: PCP Internal Medicine Geriatric Medicine; Visit Provider Student in an Organized Health Care Education/Training Program | DX: E13.9 Other specified diabetes mellitus without complications (principal) | CPT/HCPCS: 82947; 83036; 99212 ==

== ENCOUNTER 2024-10-21 09:50 | Outpatient (AMB) | payer OTHER, SELFPAY ==
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
[2024-10-21 09:54] VITALS: BP 102/58; PULSE 86; O2SAT 94; BMI 19.4
--- OUTSIDE RECORDS SUMMARY | 2024-10-21 10:41 | XMS_ITS | Encounter Summary ---
Author Organization [employer] Address [address] [place] [address] 7t [place] [address] Care Team Providers Care Landscape Architecture Professor Name Role Phone Name, Ananda CRANDALL Primary Care Provider [phone] Geeta Dove PharmD Unavailable [phone] Encounter Details Date Type Department Care Team (Latest Contact Info) Description 01/06/2019 Abstract [facility] CONVERSIONS Dental, Provider, DDS Social [...] Description 10/28/2024 9:00 AM EDT Office Visit [facility] MEDICINE [address] [place] [address] Latrice Ibrahim MD [address] [place] [address] 10/29/2024 9:00 AM EDT Medication Management [facility] MEDICINE [address] [place] [address] Geeta Dove, PharmD [address] [place] [address] 11/10/2024 9:15 AM EDT Office Visit [address] [address] Name, MD Ananda 230 [place] [address] 02/05/2025 9:30 AM EST Office Visit [facility] OPTOMETRY 267 [place], [place] [phone] Griseldaclara Natalie, OD 267 [place], [place] [phone] documented as of this encounter Visit Diagnoses Not on filedocumented in this encounter Care Teams Landscape Architecture Professor Relationship Specialty Start Date End Date Name, MD Ananda [address] [place] [address] PCP - General Family Medicine 06/01/15 Geeta Dove, Donte [address] [place] [address] Pharmacist Internal Medicine 07/21/24 documented as of this encounter
== END 2024-10-21 10:35 | disposition home or self-care (01) ==
LOC: HO.HPSW 09:51
PROVIDERS: PCP Internal Medicine Geriatric Medicine; Visit Provider Nurse Practitioner Family
DX: J44.9 Chronic obstructive pulmonary disease, unspecified (principal); F17.210 Nicotine dependence, cigarettes, uncomplicated; R93.89 Abnormal findings on diagnostic imaging of other specified body structures; R91.8 Other nonspecific abnormal finding of lung field; R40.0 Somnolence
CPT/HCPCS: 99214

== ENCOUNTER → 2024-10-21 09:50 | Outpatient (BNVA) | payer OTHER, SELFPAY | PROVIDERS: PCP Internal Medicine Geriatric Medicine; Visit Provider Nurse Practitioner Family | DX: J44.9 Chronic obstructive pulmonary disease, unspecified (principal); R40.0 Somnolence; R91.8 Other nonspecific abnormal finding of lung field; R93.89 Abnormal findings on diagnostic imaging of other specified body structures; F17.210 Nicotine dependence, cigarettes, uncomplicated; Z99.81 Dependence on supplemental oxygen | CPT/HCPCS: 99212 ==

== ENCOUNTER 2024-11-05 11:43 | Outpatient (REF) | payer OTHER, SELFPAY ==
--- NOTE | ~2024-11-05 | US_ITS ---
EXAMINATION: US RETROPERITONEAL LIMITED (RENAL ONLY) CLINICAL INFORMATION: Malignant neoplasm of kidney. Status post cryoablation left kidney midpole lesion. COMPARISON: Ultrasound renal 12/06/2022. MRI 08/02/2023 TECHNIQUE: Routine retroperitoneal imaging of kidneys is performed FINDINGS: RIGHT KIDNEY: 11.5 x 4.8 x 4.8 cm (SAG x AP x TRV). The kidney is normal in size, contour, and echogenicity. Renal cortical thickness is normal. There are no echogenic calculi. There is an echogenic lesion in the upper pole right kidney measuring 1.4 x 1.1 x 1.0 cm . Question angiomyolipoma versus renal tumor. No hydronephrosis. LEFT KIDNEY: 9.7 x 6.4 x 3.6 cm (SAG x AP x TRV). The kidney is normal in size, contour, and echogenicity. Renal cortical thickness is normal. No echogenic calculi seen. There is 1.5 x 1.6 x 1.6 cm midpole cortical lesion with central hypoechoic area and a peripheral echogenic wall likely post cryoablation changes. On the previous ultrasound the same lesion in midpole measured 2.3 x 2.0 cm. It could represent a small angiomyolipoma or renal tumor. There is a second echogenic lesion in the midpole measuring 0.9 x 0.9 x 1.1 cm on axial image 35/38, series 1. This lesion was likely visualized on the previous MRI abdomen 08/02/2023 on axial slice 69/8 on MRI abdomen 08/02/2023. US/US renal BI IMPRESSION: Post cryoablation midpole lesion left kidney measures 1.5 x 1.6 x 1.6 cm. Previously it was exophytic partially exophytic and measured 1.8 x 2.3 cm on previous MRI. It has improved in size. Second echogenic lesion in and mid pole may represent angiomyolipoma or moderate small renal lesion. Likely angiomyolipoma or a small renal tumor upper pole right kidney. These small lesions are better visualized on the MRI abdomen study 08/02/2023. Electronically signed by: Sandeep Mackey MD 11/05/2024 03:46 PM EDT
--- OUTSIDE RECORDS SUMMARY | 2024-11-05 13:23 | XMS_ITS | Encounter Summary ---
Author Organization [employer] Address [address] [facility] [address] 7t [place] [address] Care Team Providers Care Gerentological Physiotherapist Name Role Phone Name, Ananda CRANDALL Primary Care Provider [phone] Geeta Dove PharmD Unavailable [phone] Reason for Visit * Reason Onset Date Comments case in lab 10/03/2022 Encounter Details Date Type Department Care Team ([facility] st Contact Info) Description 10/03/2022 Telephone [facility] ADULT DENTAL [address] [place] [address] Kelvin Haque, LENNY 230 [place] [address] case in lab Social History Tobacco Use [...] - 10/03/2022 2:29 PM EDT Hubert from [employer] called in tain that the soonest they [...] Care Team (Late st Contact Info) Description 11/10/2024 9:15 AM EDT Office Visit [facility] MEDICINE [address] [place] [address] Ananda Spain MD 230 [place] [address] 11/25/2024 9:15 AM EDT Office Visit [facility] MEDICINE [address] [place] [address] Latrice Ibrahim MD 230 [place] [address] 11/26/2024 9:00 AM EDT Medication Management [facility] MEDICINE 230 [place] [address] PuiaGeeta, PharmD 230 [place] [address] 02/05/2025 9:30 AM EST Office Visit [facility] OPTOMETRY 267 [place] [address] TarNatalie elizabeth, OD 267 [place] [address] documented as of this encounter Visit Diagnoses Not on filedocumented in this encounter Additional Health Concerns Assessment Noted Time PHQ-9 Depression Total Score: 3 10/04/19 23 2:21 PM EDT documented as of this encounter Care Teams Gerentological Physiotherapist Relationship Specialty Start Date End Date Ananda Spain MD 230 [place] [address] PCP - General Family Medicine 06/01/15 Geeta Dove PharmD 230 [place] [address] Pharmacist Internal Medicine 07/21/24 documented as of this encounter
--- OUTSIDE RECORDS SUMMARY | 2024-11-05 13:23 | XMS_ITS | Encounter Summary ---
Author Organization [employer] Address 75 [facility] 7t [place] [address] Care Team Providers Care Carpet Renovator Name Role Phone Name, Ananda CRANDALL Primary Care Provider [phone] Geeta Dove PharmD Unavailable [phone] Reason for Visit * Reason Onset Date Comments Appointment 09/06/2022 Encounter Details Date Type Department Care Team ([facility] st Contact Info) Description 09/06/2022 Telephone [facility] ADULT DENTAL 230 [place] [address] Kelvin Haque DDS 230 [place], [place] [phone] Appointment Social History Tobacco Use Types Packs/Day [...] Description 11/10/2024 9:15 AM EDT Office Visit [facility] MEDICINE [address] [place] [address] Name, MD Ananda [address] [place] [address] 11/25/2024 9:15 AM EDT Office Visit [address] [address] Latrice Ibrahim MD [address] [place] [address] 11/26/2024 9:00 AM EDT Medication Management [facility] MEDICINE [address] [place] [address] Geeta Dove PharmD [address] [place] [address] 02/05/2025 9:30 AM EST Office Visit [facility] OPTOMETRY 267 [place] [address] Natalie Davis, OD 267 [place] [address] documented as of this encounter Visit Diagnoses Not on filedocumented in this encounter Care Teams Carpet Renovator Relationship Specialty Start Date End Date Name, MD Ananda [address] [place] [address] PCP - General Family Medicine 06/01/15 Geeta Dove, PharmD [address] [place] [address] Pharmacist Internal Medicine 07/21/24 documented as of this encounter
--- OUTSIDE RECORDS SUMMARY | 2024-11-05 13:23 | XMS_ITS | Encounter Summary ---
Author Organization [employer] Address [address] [place] [address] 7t [place] [address] Care Team Providers Care Neuropsychology Service Director Name Role Phone Name, Ananda CRANDALL Primary Care Provider [phone] Geeta Dove PharmD Unavailable [phone] Encounter Details Date Type Department Care Team (Latest Contact Info) Description 01/09/2021 Abstract [facility] CONVERSIONS Dental, Provider, DDS Social History [...] Care Team ( st Contact Info) Description 11/10/2024 9:15 AM EDT Office Visit [facility] MEDICINE [address] [place] [address] Ananda Spain MD [address] [place] [address] 11/25/2024 9:15 AM EDT Office Visit [address] [address] Latrice Ibrahim MD [address] [place] [address] 11/26/2024 9:00 AM EDT Medication Management [address] [phone] Geeta Dove PharmD 230 [place] [address] 02/05/2025 9:30 AM EST Office Visit [facility] OPTOMETRY 267 [place], [place] [phone] Natalie Davis, OD 267 [place] [address] documented as of this encounter Visit Diagnoses Not on filedocumented in this encounter Care Teams Neuropsychology Service Director Relationship Specialty Start Date End Date Name, MD Ananda 230 [place], [place] [phone] PCP - General Family Medicine 06/01/15 Geeta Dove PharmD 230 [place] [address] Pharmacist Internal Medicine 07/21/24 documented as of this encounter
--- OUTSIDE RECORDS SUMMARY | 2024-11-05 13:23 | XMS_ITS | Encounter Summary ---
Author Organization [employer] Address [address] [place] [address] 7t [place] [address] Care Team Providers Care Staff Development Coordinator Name Role Phone Name, Ananda CRANDALL Primary Care Provider [phone] Geeta Dove PharmD Unavailable [phone] Encounter Details Date Type Department Care Team (Latest Contact Info) Description 01/06/2019 Abstract [facility] CONVERSIONS Dental, Provider, DDS Social [...] Description 11/10/2024 9:15 AM EDT Office Visit [facility] MEDICINE [address] [place] [address] Ananda Spain MD [address] [place] [address] 11/25/2024 9:15 AM EDT Office Visit [facility] MEDICINE [address] [place] [address] Latrice Ibrahim MD [address] [place] [address] 11/26/2024 9:00 AM EDT Medication Management [address] [address] Geeta Dove PharmD 230 [place] [address] 02/05/2025 9:30 AM EST Office Visit [facility] OPTOMETRY 267 [place], [place] [phone] Natalie Davis, OD 267 [place], [place] [phone] documented as of this encounter Visit Diagnoses Not on filedocumented in this encounter Care Teams Staff Development Coordinator Relationship Specialty Start Date End Date Name, MD Ananda 230 [place], [place] [phone] PCP - General Family Medicine 06/01/15 Geeta Dove PharmD 230 [place] [address] Pharmacist Internal Medicine 07/21/24 documented as of this encounter
--- OUTSIDE RECORDS SUMMARY | 2024-11-05 13:24 | XMS_ITS | Encounter Summary ---
Author Organization [employer] Address [address] [place] [address] 7t [place] [address] Care Team Providers Care Machine Setter Name Role Phone Name, Ananda CRANDALL Primary Care Provider [phone] Geeta Dove PharmD Unavailable [phone] Encounter Details Date Type Department Care Team ([facility] Contact Info) Description 05/10/2022 Orders Only [facility] MEDICINE [address] [place] [address] [phone] Alis Zavala, COREY Uncomplicated opioid dependence (CMS/HCC) Social History Tobacco [...] Encounters Date Type Department Care Team ([facility] Contact Info) Description 11/10/2024 9:15 AM EDT Office Visit [facility] MEDICINE [address] [place] [address] [phone] Name, MD Ananda [address] [place] [address] 11/25/2024 9:15 AM EDT Office Visit [facility] MEDICINE 230 [place] [address] Latrice Ibrahim MD 230 [place] [address] 11/26/2024 9:00 AM EDT Medication Management [facility] MEDICINE 230 [place] [address] Geeta Dove PharmD 230 [place] [address] 02/05/2025 9:30 AM EST Office Visit [facility] OPTOMETRY 267 [place] [address] Natalie Davis, OD 267 [place] [address] documented as of this encounter Visit Diagnoses Diagnosis Uncomplicated opioid dependence (CMS/[facility]) documented in this encounter Care Teams Machine Setter Relationship Specialty Start Date End Date Name, MD Ananda [address] [place] [address] PCP - General Family Medicine 06/01/15 Geeta Dove PharmD [address] [place] [address] Pharmacist Internal Medicine 07/21/24 documented as of this encounter
--- OUTSIDE RECORDS SUMMARY | 2024-11-05 13:24 | XMS_ITS | Encounter Summary ---
Author Organization [employer] Address [address] [facility] 7t [place] [address] Care Team Providers Care Tubing Mill Operator Name Role Phone Ananda Spain MD Primary Care Provider [phone] Geeta Dove PharmD Unavailable [phone] Reason for Visit * Reason Onset Date Comments ER Follow-up 09/26/2022 Encounter Details Date Type Department Care Team ([facility] st Contact Info) Description 09/26/2022 Telephone [facility] MEDICINE 230 [place], [place] [phone] Name, MD Ananda 230 [place] [address] ER Follow-up Social History Tobacco Use Types [...] 10:24 AM EDT T/c to pt. Through [employer] id - [id number] for below message, pt. Has surgery at [facility] for non - pressure chronic ulcer of [...] regarding message below. Please contact pt at [phone] (hebrew speaker) * Telephone Encounter - Em Leblanc RN - 09/27/2022 3:29 PM EDT T/C to pt. On [phone] through [employer] id - [id number] for status check and to schedule follow up apt. No answer. LVM to call back on [phone]. * Telephone Encounter - Netta Alvares - 09/26/2022 11:04 AM EDT Tc from pt calling to advise PCP of an ER visit to [facility] on 09/24/22 for surgery on the left leg. Pt advised will forward to team nurse for f/u. Please contact pt at [phone] (Bengali) documented in this encounter Plan of Treatment Upcoming Encounters Date Type Department Care Team (Late st Contact Info) Description 11/10/2024 9:15 AM EDT Office Visit [facility] MEDICINE 230 [facility] [place] [address] Name, MD Ananda 230 [facility] [place] [address] 11/25/2024 9:15 AM EDT Office Visit [facility] MEDICINE [address] [place] [address] [place] [address] Latrice Ibrahim MD 230 [facility] [place] [address] 11/26/2024 9:00 AM EDT Medication Management [facility] MEDICINE [address] [place] [address] [place] [address] Geeta Dove PharmD 230 [facility] [address] 02/05/2025 9:30 AM EST Office Visit [facility] OPTOMETRY 267 [place] [address] Natalie Davis, OD 267 [place] [address] documented as of this encounter Visit Diagnoses Not on filedocumented in this encounter Care Teams Tubing Mill Operator Relationship Specialty Start Date End Date Name, MD Ananda [address] [place], [place] [address] [address] PCP - General Family Medicine 06/01/15 Geeta Dove PharmD [address] [place], [place] [address]les[address] [facility] [place] [address] Pharmacist Internal Medicine 07/21/24 documented as of this encounter
--- OUTSIDE RECORDS SUMMARY | 2024-11-05 13:24 | XMS_ITS | Encounter Summary ---
Author Organization [employer] Address 75 [facility] 7t [place] [address] Care Team Providers Care Sky Diver Name Role Phone Name, Ananda CRANDALL Primary Care Provider [phone] Geeta Dove PharmD Unavailable [phone] Encounter Details Date Type Department Care Team ([facility] Contact Info) Description 03/28/2023 Abstract [facility] MEDICINE 230 [place], [place] [phone] Name, MD Ananda 230 [place] [address] Social History Tobacco Use Types Packs/Day Years [...] Description 11/10/2024 9:15 AM EDT Office Visit [facility] MEDICINE [address] [place] [address] Ananda Spain MD [address] [place] [address] 11/25/2024 9:15 AM EDT Office Visit [facility] MEDICINE [address] [place] [address] Latrice Ibrahim MD [address] [place] [address] 11/26/2024 9:00 AM EDT Medication Management [facility] MEDICINE [address] [place] [address] PuiaGeeta, PharmD 230 [place] [address] 02/05/2025 9:30 AM EST Office Visit [facility] OPTOMETRY 267 [place] [address] TarNatalie elizabeth, OD 267 [place] [address] documented as of this encounter Visit Diagnoses Not on filedocumented in this encounter Additional Health Concerns Assessment Noted Time PHQ-9 Depression Total Score: 3 10/04/19 23 2:21 PM EDT documented as of this encounter Care Teams Sky Diver Relationship Specialty Start Date End Date Ananda Spain MD 230 [place] [address] PCP - General Family Medicine 06/01/15 Geeta Dove PharmD 230 [place] [address] Pharmacist Internal Medicine 07/21/24 documented as of this encounter
--- OUTSIDE RECORDS SUMMARY | 2024-11-05 13:24 | XMS_ITS | Encounter Summary ---
Author Organization [employer] Address 75 [facility] 7t [place] [address] Care Team Providers Care Automobile Lights Assembler Name Role Phone Name, Ananda CRANDALL Primary Care Provider [phone] Geeta Dove PharmD Unavailable [phone] Reason for Visit * Reason Comments Med Refill Encounter Details Date Type Department Care Team ([facility] st Contact Info) Description 02/28/[address] [facility] 230 [place], [place] [phone] Name, MD Ananda 230 [place] [address] Pain of left leg Social History Tobacco [...] Description 11/10/2024 9:15 AM EDT Office Visit [facility] MEDICINE [address] [place] [address] Name, MD Ananda [address] [place] [address] 11/25/2024 9:15 AM EDT Office Visit [facility] MEDICINE [address] [place] [address] Latrice Ibrahim MD [address] [place] [address] 11/26/2024 9:00 AM EDT Medication Management [facility] MEDICINE [address] [place] [address] Geeta Dove, PharmD [address] [place] [address] 02/05/2025 9:30 AM EST Office Visit [facility] OPTOMETRY [address] [place] [address] Natalie Davis OD 267 [place] [address] documented as of this encounter Visit Diagnoses Diagnosis Pain of left leg documented in this encounter Additional Health Concerns Assessment Noted Time PHQ-9 Depression Total Score: 3 10/04/19 23 2:21 PM EDT documented as of this encounter Care Teams Automobile Lights Assembler Relationship Specialty Start Date End Date Name, MD Ananda 230 [place] [address] PCP - General Family Medicine 06/01/15 Geeta Dove, LoretoD 230 [place] [address] Pharmacist Internal Medicine 07/21/24 documented as of this encounter
--- OUTSIDE RECORDS SUMMARY | 2024-11-05 13:24 | XMS_ITS | Encounter Summary ---
Author Organization [employer] Address 75 [facility] 7t [place] [address] Care Team Providers Care Lab Associate Name Role Phone Name, Ananda CRANDALL Primary Care Provider [phone] Geeta Dove PharmD Unavailable [phone] Reason for Visit * Reason Comments Med Refill Encounter Details Date Type Department Care Team ([facility] st Contact Info) Description 03/08/2024 Refill [facility] MEDICINE 230 [place], [place] [phone] Name, MD Ananda 230 [place] [address] Chronic obstructive pulmonary disease, unspecified COPD type [...] Description 11/10/2024 9:15 AM EDT Office Visit [facility] MEDICINE [address] [place] [address] Ananda Spain MD [address] [place] [address] 11/25/2024 9:15 AM EDT Office Visit [facility] MEDICINE [address] [place] [address] Latrice Ibrahim MD 230 [place] [address] 11/26/2024 9:00 AM EDT Medication Management [facility] MEDICINE [address] [place] [address] Geeta Dove, PharmD 230 [place] [address] 02/05/2025 9:30 AM EST Office Visit [facility] OPTOMETRY 267 [place] [address] Natalie Davis, OD 267 [place] [address] documented as of this encounter Visit Diagnoses Diagnosis Chronic obstructive pulmonary disease, unspecified COPD type (CMS/HCC) documented in this encounter Additional Health Concerns Assessment Noted Time PHQ-9 Depression Total Score: 10 024 9:15 AM EDT documented as of this encounter Care Teams Lab Associate Relationship Specialty Start Date End Date Name, MD Ananda 230 [place] [address] PCP - General Family Medicine 06/01/15 Geeta Dove PharmD 230 [place] [address] Pharmacist Internal Medicine 07/21/24 documented as of this encounter
--- OUTSIDE RECORDS SUMMARY | 2024-11-05 13:24 | XMS_ITS | Encounter Summary ---
Author Organization [employer] Address 75 [facility] 7t [place] [address] Care Team Providers Care Instructional Media Services Technician Name Role Phone Name, Ananda CRANDALL Primary Care Provider Geeta Dove PharmD Unavailable [phone] Reason for Visit * Reason Comments Med Refill Encounter Details Date Type Department Care Team ([facility] st Contact Info) Description 08/23/2024 Refill [facility] MEDICINE 230 [place], [place] [phone] Name, MD Ananda 230 [place] [address] Chronic obstructive pulmonary disease, unspecified COPD type (CMS/HCC) Social History Tobacco Use Types Packs/Day Years Used Date Smoking Tobacco: Every Day Cigarettes 2.7 14.3 Started: 07/21/2010 Passive Smoke Exposure: Current Smokeless [...] 9:15 AM EDT Office Visit [facility] MEDICINE [address] [place] [address] Name, MD Ananda [address] [place] [address] 11/25/2024 9:15 AM EDT Office Visit [facility] MEDICINE [address] [place] [address] Latrice Ibrahim MD [address] [place] [address] 11/26/2024 9:00 AM EDT Medication Management [facility] MEDICINE [address] [place] [address] Geeta Dove, PharmD 230 [place] [address] 02/05/2025 9:30 AM EST Office Visit [facility] OPTOMETRY [address] [place] [address] Natalie Davis, OD 267 [place] [address] documented as of this encounter Goals Goal Patient Goal Type Associated Problems Recent Progress Patient-Stated? Author Increase coping skills to promote long-term recovery and improve ability to perform daily activities General On track( 025 10:52 AM EDT) No Sonali Stubbs, RN Reduce tobacco use (cigarettes, smokeless, etc) Tobacco Use On track( 025 10:52 AM EDT) No Sonali Stubbs, RN Note: 1-2 cigs per day documented as of this encounter Visit Diagnoses Diagnosis Chronic obstructive pulmonary disease, unspecified COPD type (CMS/HCC) documented in this encounter Additional Health Concerns Assessment Noted Time PHQ-9 Depression Total Score: 5 07/16/19 11:03 AM EDT documented as of this encounter Care Teams Instructional Media Services Technician Relationship Specialty Start Date End Date Name, MD Ananda 230 [place] [address] PCP - General Family Medicine 06/01/15 Geeta Dove PharmD [address] [place] [address] Pharmacist Internal Medicine 07/21/24 documented as of this encounter
--- OUTSIDE RECORDS SUMMARY | 2024-11-05 13:24 | XMS_ITS | Encounter Summary ---
Author Organization [employer] Address 75 [facility] 7t [place] [address] Care Team Providers Care Nurse Anesthesia Program Director Name Role Phone Name, Ananda CRANDALL Primary Care Provider [phone] Geeta Dove PharmD Unavailable Reason for Visit * Reason Onset Date Comments Durable Medical Equipment 09/18/2022 Encounter Details Date Type Department Care Team ([facility] st Contact Info) Description 09/18/2022 Telephone [facility] MEDICINE [address] [place], [place] [phone] Name, MD Ananda 230 [place] [address] Durable Medical Equipment Social History Tobacco Use [...] 09/21/2022 1:49 PM EDT Incoming call from [facility] regarding message below. [facility] PT states they have no record of pt ever going to their offices and getting PT. Unsure what next steps should be at this point. * Telephone Encounter - Christy Finn RN - 09/21/2022 1:39 PM EDT TC X1 to [facility] Core PT [phone] regarding message below. LVM to return call to nurses. * Telephone Encounter - Lauren Walsh - 09/20/2022 3:14 PM EDT Tc from patient returning call back, regarding message below. Patient states he's going to PT in [facility]. [address] [place] [address] [facility] [place] [address] Dr. Mcdaniel. * Telephone Encounter - Christy [...] Description 11/10/2024 9:15 AM EDT Office Visit [facility] MEDICINE [address] [place] [phone] Name, MD Ananda [address] [place] [address] 11/25/2024 9:15 AM EDT Office Visit [facility] MEDICINE [address] [place] [address] Latrice Ibrahim MD 230 [place] [address] 11/26/2024 9:00 AM EDT Medication Management [facility] MEDICINE [address] [place] [address] Geeta Dove PharmD [address] [place] [address] 02/05/2025 9:30 AM EST Office Visit [facility] OPTOMETRY [address] [place] [address] Natalie Davis OD [address] [place] [address] documented as of this encounter Visit Diagnoses Not on filedocumented in this encounter Care Teams Nurse Anesthesia Program Director Relationship Specialty Start Date End Date Name, MD Ananda [address] [place] [address] 18091 PCP - General Family Medicine 06/01/15 Geeta Dove PharmD [address] [place] [address]51 Pharmacist Internal Medicine 07/21/24 documented as of this encounter
--- OUTSIDE RECORDS SUMMARY | 2024-11-05 13:24 | XMS_ITS | Encounter Summary ---
Author Organization [employer] Address 75 [facility] 7t [place] [address] Care Team Providers Care Armor Reconnaissance Vehicle Driver Name Role Phone Name, Ananda CRANDALL Primary Care Provider [phone] Geeta Dove PharmD Unavailable [phone] Encounter Details Date Type Department Care Team ([facility] Contact Info) Description 02/14/[address] [facility] MEDICINE [address] [place] [address] [phone] Provider, MD Damari Social History Tobacco Use [...] Team ([facility] Contact Info) Description 11/10/2024 9:15 AM EDT Office Visit [facility] MEDICINE [address] [place] [address] [phone] Name, MD Ananda [address] [place] [address] 11/25/2024 9:15 AM EDT Office [address] [facility] MEDICINE 230 [place] [address] Latrice Ibrahim MD 230 [place] [address] 11/26/2024 9:00 AM EDT Medication Management [facility] [address] [place] [address] Geeta Dove PharmD [address] [place] [address] 02/05/2025 9:30 AM EST Office Visit [facility] OPTOMETRY [address] [place] [address] Natalie Davis, OD 267 [place] [address] documented as of this encounter Visit Diagnoses Not on filedocumented in this encounter Care Teams Armor Reconnaissance Vehicle Driver Relationship Specialty Start Date End Date Name, MD Ananda [address] [place] [address] PCP - General Family Medicine 06/01/15 Geeta Dove PharmD [address] [place] [address] 575[address] Pharmacist Internal Medicine 07/21/24 documented as of this encounter
--- OUTSIDE RECORDS SUMMARY | 2024-11-05 13:24 | XMS_ITS | Encounter Summary ---
Author Organization [employer] Address [address] [place] [address] 7t [place] [address] Care Team Providers Care Wash Tank Tender Name Role Phone Ananda Spain MD Primary Care Provider [phone] Geeta Dove PharmD Unavailable [phone] Reason for Visit * Reason Comments Med Refill Encounter Details Date Type Department Care Team ([facility] Contact Info) Description 04/25/2022 Refill [facility] MEDICINE [address] [place] [address] [phone] NameAnanda MD [address] [place] [phone] Wheezing (Primary Dx) Social History Tobacco Use [...] Upcoming Encounters Date Type Department Care Team ([facility] Contact Info) Description 11/10/2024 9:15 AM EDT Office Visit [facility] MEDICINE [address] [place] [address] [phone] Name, MD Ananda [address] [place] [address] 11/25/2024 9:15 AM EDT Office Visit [facility] MEDICINE [address] [place] [address] Latrice Ibrahim MD 230 [place] [address] 11/26/2024 9:00 AM EDT Medication Management [facility] MED[facility] [address] [place] [address] Geeta Dove PharmD [address] [place] [address] 239[address] 02/05/2025 9:30 AM EST Office Visit [facility] OPTOMETRY [address] [place] [address] 214[address] Natalie Davis OD 267 [place] [address] documented as of this encounter Visit Diagnoses Diagnosis Wheezing- Primary documented in this encounter Care Teams Wash Tank Tender Relationship Specialty Start Date End Date Name, MD Ananda [address] [place] [address] PCP - General Family Medicine 06/01/15 Geeta Dove PharmD [address] [place] [address] 28976 Pharmacist Internal Medicine 07/21/24 documented as of this encounter
--- OUTSIDE RECORDS SUMMARY | 2024-11-05 13:24 | XMS_ITS | Encounter Summary ---
Author Organization [employer] Address [address] [place] [address] 7t [place] [address] Care Team Providers Care Nutrition Teacher Name Role Phone Name, Ananda CRANDALL Primary Care Provider [phone] Geeta Dove PharmD Unavailable Reason for Visit * Reason Comments Med Refill Encounter Details Date Type Department Care Team (Late st Contact Info) Description 12/07/2022 Refill [facility] MEDICINE 230 [place] [address] Name, MD Ananda 230 [place] [address] Type 2 diabetes mellitus without complication, unspecified whether longwall shearer operator insulin use ([facility]); Type 2 diabetes mellitus without complication, with long-term current use of insulin ([facility]) Social History [...] Department Care Team (Late Contact Info) Description 11/10/2024 9:15 AM EDT Office Visit [facility] MEDICINE [address] [place] [address] [place] [address] Name, MD Ananda 230 [place] [address] 11/25/2024 9:15 AM EDT Office Visit [facility] MEDICINE [address] [place] [address] Latrice Ibrahim MD 230 [place] [address] 11/26/2024 9:00 AM EDT Medication Management [address] [address] Geeta Dove PharmD [address] [place] [address] [place] [address] 02/05/2025 9:30 AM EST Office Visit [facility] OPTOMETRY [address] [place] [address] Natalie Davis OD 267 [place] [address] documented as of this encounter Visit Diagnoses Diagnosis Type 2 diabetes mellitus without complication, unspecified whether skilled nursing insulin use ([facility]) documented in this encounter Additional Health Concerns Assessment Noted Time PHQ-9 Depression Total Score: 3 10/04/19 23 2:21 PM EDT documented as of this encounter Care Teams Nutrition Teacher Relationship Specialty Start Date End Date NameAnanda MD [address] [place], [place] [phone] [place] [address] PCP - General Family Medicine 06/01/15 Geeta Dove PharmD [address] [place], [place] [address] [place] [address] Pharmacist Internal Medicine 07/21/24 documented as of this encounter
--- OUTSIDE RECORDS SUMMARY | 2024-11-05 13:24 | XMS_ITS | Encounter Summary ---
Author Organization [employer] Address [address] [place] [address] 7t [place] [address] Care Team Providers Care Caterers Helper Name Role Phone Name, Ananda CRANDALL Primary Care Provider [phone] Geeta Dove PharmD Unavailable [phone] Encounter Details Date Type Department Care Team ([facility] Contact Info) Description 08/13/2022 Abstract [facility] MEDICINE [address] [place] [address] [phone] NameAnanda MD [address] [place] [address] Social History Tobacco Use Types Packs/Day Years [...] Upcoming Encounters Date Type Department Care Team ([facility] Contact Info) Description 11/10/2024 9:15 AM EDT Office Visit [facility] MEDICINE [address] [place] [address] [phone] NameAnanda MD 230 [place] [address] 11/25/2024 9:15 AM EDT Office Visit [facility] MEDICINE 230 [facility] [place] [address] Latrice Ibrahim MD 230 [facility] [place] [address] 11/26/2024 9:00 AM EDT Medication Management [facility] MEDICINE 230 [place] [address] Geeta Dove PharmD 230 [facility] [place] [address] 02/05/2025 9:30 AM EST Office Visit [facility] OPTOMETRY 267 [place] [address] Natalie Davis, OD 267 [place] [address] documented as of this encounter Procedures Procedure [...] on filedocumented in this encounter Care Teams Caterers Helper Relationship Specialty Start Date End Date Name, MD Ananda [facility] [place] [address] PCP - General Family Medicine 06/01/15 Geeta Dove PharmD [address] [place] [address] Pharmacist Internal Medicine 07/21/24 documented as of this encounter
--- OUTSIDE RECORDS SUMMARY | 2024-11-05 13:24 | XMS_ITS | Encounter Summary ---
Author Organization [employer] Address 75 [facility] 7t [place] [address] Care Team Providers Care Meat Grinder Name Role Phone Name, Ananda CRANDALL Primary Care Provider [phone] Geeta Dove PharmD Unavailable [phone] Encounter Details Date Type Department Care Team ([facility] Contact Info) Description 03/28/2022 Orders Only [facility] [address] [place], [place] [phone] Teresa Moody LPN Social History Tobacco Use [...] Upcoming Encounters Date Type Department Care Team ([facility] Contact Info) Description 11/10/2024 9:15 AM EDT Office Visit [facility] MEDICINE 230 [place], [place] [phone] Name, MD Ananda 230 [place] [address] 11/25/2024 9:15 AM EDT Office Visit [facility]INE 230 [place] [address] Latrice Ibrahim MD 230 [place] [address] 11/26/2024 9:00 AM EDT Medication Management [facility] [address] [place] [address] Geeta Dove PharmD [address] [place] [address] 02/05/2025 9:30 AM EST Office Visit [facility] OPTOMETRY [address] [place] [address] Natalie Davis, OD 267 [place] [address] documented as of this encounter Visit Diagnoses Not on filedocumented in this encounter Care Teams Meat Grinder Relationship Specialty Start Date End Date Name, MD Ananda [address] [place] [address] 267[address] PCP - General Family Medicine 06/01/15 Geeta Dove PharmD [address] [place] [address] 31157 Pharmacist Internal Medicine 07/21/24 documented as of this encounter
--- OUTSIDE RECORDS SUMMARY | 2024-11-05 13:24 | XMS_ITS | Encounter Summary ---
Author Organization [employer] Address 75 [facility] 7t [place] [address] Care Team Providers Care Senior Oracle Applications Developer Name Role Phone Name, Ananda CRANDALL Primary Care Provider [phone] Geeta Dove PharmD Unavailable [phone] Reason for Visit * Reason Comments Med Refill Encounter Details Date Type Department Care Team ([facility] Contact Info) Description 06/07/2022 Refill [facility] [address] [place] [address] Sebastián Graves MD [address] [place] [address] Pain of left leg Social History Tobacco [...] [facility] Contact Info) Description 11/10/2024 9:15 AM EDT Office Visit [facility] MEDICINE [address] [place] [address] Name, MD Ananad [address] [place] [address] [place] [address] 11/25/2024 9:15 AM EDT Office Visit [facility] MEDICINE [address] [place] [address] [place] [address] Latrice Ibrahim MD 230 [facility] [place] [address] 11/26/2024 9:00 AM EDT Medication Management [facility] [address] [place] [address] [place] [address] Geeta Dove PharmD [address] [place] [address] [place] [address] 02/05/2025 9:30 AM EST Office Visit [facility] OPTOMETRY [address] [place] [address] Natalie Davis OD 267 [place] [address] documented as of this encounter Visit Diagnoses Diagnosis Pain of left leg documented in this encounter Care Teams Senior Oracle Applications Developer Relationship Specialty Start Date End Date Name, MD Ananda [address] [place], [place] [address] PCP - General Family Medicine 06/01/15 Geeta Dove PharmD [address] [place], [place] [address] [place] Pharmacist Internal Medicine 07/21/24 documented as of this encounter
--- OUTSIDE RECORDS SUMMARY | 2024-11-05 13:24 | XMS_ITS | Encounter Summary ---
Author Organization [employer] Address [address] [facility] [address] 7t [place] [address] Care Team Providers Care Foundry Worker General Name Role Phone Name, Ananda CRANDALL Primary Care Provider [phone] Geeta Dove PharmD Unavailable [phone] Reason for Visit * Reason Comments Med Refill Encounter Details Date Type Department Care Team ([facility] st Contact Info) Description 09/19/2023 Refill [facility] [address] [place], [place] [phone] Name, MD Ananda 230 [place] [address] Pain of left leg Social History Tobacco [...] Description 11/10/2024 9:15 AM EDT Office Visit [facility] MEDICINE [address] [place] [address] Name, MD Ananda [address] [place] [address] 11/25/2024 9:15 AM EDT Office Visit [facility] MEDICINE [address] [place] [address] Latrice Ibrahim MD [address] [place] [address] 11/26/2024 9:00 AM EDT Medication Management [facility] [address] [place] [address] Geeta Dove, PharmD 230 [place] [address] 02/05/2025 9:30 AM EST Office Visit [facility] OPTOMETRY [address] [place] [address] Natalie Davis, OD 267 [place] [address] documented as of this encounter Visit Diagnoses Diagnosis Pain of left leg documented in this encounter Additional Health Concerns Assessment Noted Time PHQ-9 Depression Total Score: 10 024 9:15 AM EDT documented as of this encounter Care Teams Foundry Worker General Relationship Specialty Start Date End Date Name, MD Ananda 230 [place] [address] PCP - General Family Medicine 06/01/15 Geeta Dove, Donte 230 [place] [address] Pharmacist Internal Medicine 07/21/24 documented as of this encounter
--- OUTSIDE RECORDS SUMMARY | 2024-11-05 13:24 | XMS_ITS | Encounter Summary ---
Author Organization [employer] Address 75 [facility] 7t [place] [address] Care Team Providers Care Chain Saw Mechanic Name Role Phone Name, Ananda CRANDALL Primary Care Provider [phone] Geeta Dove PharmD Unavailable Reason for Visit * Reason Onset Date Comments Durable Medical Equipment 06/08/2022 Encounter Details Date Type Department Care Team ([facility] st Contact Info) Description 06/08/[address] [facility] MEDICINE 230 [place], [place] [phone] Name, MD Ananda 230 [place] [address] Durable Medical Equipment Social History Tobacco Use [...] Miscellaneous Notes * Telephone Encounter - Davina Canojia - 06/11/2022 12:30 PM EDT Tc from pt returning call , states unable to get a hold of home coordinator and would like to know if PCP can send script directly to [facility] . Please contact at [phone] * Telephone Encounter - Arleen James - 06/11/2022 11:28 AM EDT TC to patient and informed him to contact his child care director as a script for a recliner was emailed to her previously. Patient understood and agreed with plan. * Telephone Encounter - Darian Joiner - 06/08/2022 4:29 PM EDT Tc from pt requesting a script for a recliner chair to be send to [facility] please contact pt at [phone] documented in this encounter Plan of Treatment Upcoming Encounters Date Type Department Care Team (Late st Contact Info) Description 11/10/2024 9:15 AM EDT Office Visit [facility] MEDICINE [address] [place] [address] Ananda Spain MD [address] [place] [address] 11/25/2024 9:15 AM EDT Office Visit [facility] MEDICINE [address] [place] [address] Latrice Ibrahim MD [address] [place] [address] 11/26/2024 9:00 AM EDT Medication Management [facility] MEDICINE [address] [place] [address] Geeta Dove, Donte 230 [place] [address] 02/05/2025 9:30 AM EST Office Visit [facility] OPTOMETRY [address] [place] [address] [phone] Natalie Davis, OD 267 [place] [address] documented as of this encounter Visit Diagnoses Not on filedocumented in this encounter Care Teams Chain Saw Mechanic Relationship Specialty Start Date End Date Name, MD Ananda 230 [place], [place] [phone] PCP - General Family Medicine 06/01/15 Geeta Dove, LoretoD 230 [place] [address] Pharmacist Internal Medicine 07/21/24 documented as of this encounter
--- OUTSIDE RECORDS SUMMARY | 2024-11-05 13:24 | XMS_ITS | Clinical Summary ---
Author Organization [employer] Address [address] [place] [address] 7t [place] [address] Care Team Providers Care Orthodontist Assistant Name Role Phone Name, Ananda CRANDALL Primary Care Provider [phone] Geeta Dove PharmD Unavailable [phone] Allergies No known active allergies Medications ramelteon (Rozerem) 8 MG tablet Take 1 tablet by mouth at bed time. Active Misc. Devices (Pulse Oximeter For Finger) miscIndications :COPD exacerbation (CMS/[facility]) 1 each 2 times daily. Call [facility] if consistently < 95% 1 each 023 Active clonazePAM (KlonoPIN) 1 MG tablet Take 1 mg by mouth 2 times daily. 023 Active Lancets (OneTouch Delica Plus [id number]) misc TEST BLOOD SUGAR THREE TIMES DAILY 023 [...] mg by mouth 2 times daily. Active Tresiba FlexTouch 100 UNIT/ML injection INJECT 8 UNITS SUBCUTANEOUSLY EVERY DAY Active glucose 4 g chewable tablet CHEW 4 TABLETS BY MOUTH EVERY 15 MINUTES NEEDED FOR LOW BLOOD SUGAR UNTIL SYMPTOMS RESOLVED OR LOW BLOOD SUGAR IS RESOLVED Active albuterol (Ventolin HFA) 108 (90 Base) MCG/ACT inhalerIndicati ons:Chronic obstructive pulmonary disease, unspecified COPD type ([facility]) INHALE 2 PUFFS BY MOUTH EVERY 4 TO 6 HOURS NEEDED 18 g 5 Active senna (Senokot) 8.6 MG tabletIndicatio ns:Constipation , unspecified constipation type TAKE 2 TABLETS BY MOUTH EVERY DAY NEEDED FOR CONSTIPATION 60 tablet 5 Active Trelegy Ellipta 200-62.5-25 MCG/ACT aerosol powder Inhale 1 puff 1 (one) time each day at the same time. Active BD Pen Needle Pham U/F 32G X 4 MM miscIndications :Type 2 diabetes mellitus without complication, unspecified whether exterminator termite insulin use ([facility]) USE DIRECTED FOUR TIMES DAILY 100 each 5 Active montelukast (Singulair) 10 MG tabletIndicatio ns:Seasonal allergic rhinitis, unspecified trigger Take 1 tablet (10 mg) by mouth at bedtime. 90 tablet 1 Active Acetaminophen Extra Strength 500 MG tabletIndicatio ns:Cough in adult patient TAKE 1 TABLET BY MOUTH THREE TIMES DAILY 90 tablet 2 025 Active varenicline (Chantix) 1 MG tabletIndicatio ns:Tobacco dependence Take 1 tablet (1 mg) by mouth 2 times daily. Take with full glass of water. 56 tablet 4 Active atorvastatin (Lipitor) 40 MG tabletIndicatio ns:Type 2 diabetes mellitus with hyperglycemia, with long-term current use of insulin ([facility]) TAKE 1 TABLET BY MOUTH EVERY DAY DIRECTED 90 tablet 1 025 Active Continuous Glucose Sensor (FreeStyle Kasey 3 Plus Sensor) misc 2 each every 8 (eight) hours. Active aspirin (Aspirin Low Dose) 81 MG EC tabletIndicatio ns:Pain of left leg TAKE 1 TABLET BY MOUTH DAILY IN THE MORNING 90 tablet 1 025 Active Multiple Vitamin (Multivitamin) tablet TAKE 1 TABLET BY MOUTH EVERY DAY WITH FOOD 90 tablet 3 025 Active ipratropium-alb uterol (Duo-Neb) 0.5-2.5 mg/3 mL nebulizer solution INHALE 1 AMPULE USING A NEBULIZER EVERY 6 HOURS NEEDED FOR WHEEZING OR SHORTNESS OF BREATH 025 Active FreeStyle Precision Isak Test test stripIndication s:Type 2 diabetes mellitus with hyperglycemia, with long-term current use of insulin (CMS/HCC) USE TO TEST BLOOD SUGAR THREE TIMES DAILY 100 strip 3 025 Active Alcohol Swabs (Alcohol Prep) 70 % pads USE FOUR TIMES DAILY DIRECTED 100 each 11 025 Active albuterol (2.5 MG/3ML) 0.083% nebulizer solution Take 2.5 mg by nebulization every 6 (six) hours if needed for wheezing. 025 Active Suboxone 8-2 MG SL filmIndications :Uncomplicated opioid dependence (CMS/HCC) Place 3 Film under the tongue Once per day for 28 days. 84 Film 025 2024 Active Suboxone 8-2 MG SL filmIndications :Uncomplicated opioid dependence (CMS/HCC) Place 3 Film under the tongue Once per day for 28 days. 84 Film 025 2024 Discontinued(R eorder (will not trigger notification to Pharmacy)) levoFLOXacin (Levaquin) 250 MG tabletIndicatio ns:COPD exacerbation (CMS/HCC) Take 2 tablets (500 mg) by mouth Once per day for 5 days. 10 tablet 025 2024 predniSONE (Deltasone) 20 MG tabletIndicatio ns:COPD exacerbation (CMS/HCC) Take 2 tablets (40 mg) by mouth Once per day for 5 days. 10 tablet 025 2024 Active Problems Problem Noted Date Diagnosed Date COPD exacerbation 10/16/2024 Assessment & Plan (10/16/2024 11:04 AM EDT): Patient has pulmonology appointment on 10/21/2024 at 10 am at [facility] pulmon[facility] [place], [address] [address], I advise not to miss this appointment I will prescribe for patient levofloxacin 500mg for 5 days and prednisone 40mg for 5 days c/w albuterol inhaler/nebs PRN Chronic obstructive pulmonar y disease with acute exacerbation 08/28/2024 Assessment & Plan (08/28/2024 3:56 PM EDT): I will prescribe for patient levofloxacin 500 mg once daily for 5 days and 40 mg daily for 5 days ED precautions were reviewed with patient Partially edentulous mandible 11/14/2022 BPH (benign prostatic [...] and left lower lobe calcified large granuloma. [address] [address] [address] Scan Report Signed Patient: Hubert Rios MR#: [id number] : 1965 Acct:[id number] Age/Sex: 59 / M ADM Date: 07/02/24 Loc: HO.CT Attending Dr: Chanel Thomas NP Ordering Physician: Chanel Thomas NP Date of Service: 07/02/24 Procedure(s): CT chest wo IV con Accession Number(s): [id number] cc: Ananda Spain MD; Chanel Thomas NP Report Number: [id number]: Total DLP = 110.00 mGy-cm EXAMINATION: CT [...] 12/19/2011 Opioid dependence 08/15/2011 Assessment & Plan (10/28/2024 5:32 AM EDT): - in maintenance stage, long-term [...] support and recovery effort Assessment & Plan (07/08/2024 5:10 AM EDT): [...] Encounters Date Type Department Care Team Description 10/28/2024 9:00 AM EDT Office Visit [facility] [address] [place] [phone] Latrice Ibrahim MD Uncomplicated opioid dependence (CMS/HCC) (Primary Dx) 10/28/2024 Travel 10/27/[address] [address] Latrice Ibrahim MD CHART PREP 10/21/2024 Refill [facility] [address] [place] [phone] Sonali Stubbs RN Uncomplicated opioid dependence (CMS/HCC) 10/16/2024 11:00 AM EDT Office Visit [facility] [address] [place] [phone] So Lebron MD COPD exacerbation (CMS/HCC) (Primary Dx); Cough in adult patient 10/16/2024 Travel 10/13/2024 Orders Only GENERIC EXTERNAL DATA DEPARTMENT Provider, Generic External Data 10/09/2024 Orders Only GENERIC EXTERNAL DATA DEPARTMENT Provider, Generic External Data 09/30/2024 Orders Only [facility] External Provider, [facility] 09/29/2024 9:00 AM EDT Clinical Support [address] [address] Maya Jolly, COREY Opioid type dependence, continuous (CMS/HCC) 09/29/2024 Travel 09/23/2024 Refill [facility] [address] [place] [phone] Sonali Stubbs, COREY Uncomplicated opioid dependence ([facility]/HCC) 09/21/2024 Telephone [facility] [address] [place] [phone] Ananda Spain MD Letter Request (I called the patient, regarding his request for a letter. He stated that a lot of dust enters the apartment where he is currently living, and it is making his lung condition worse. He stated that housing will allow him to move to a different location, if he provides a letter from his PCP.) 09/21/2024 Travel 09/21/2024 Telephone [facility] [address] [place] [phone] Geeta Dove, LoretoD 09/02/2024 9:00 AM EDT Clinical Support [facility] [address] [place] [phone] Melvina Macias RN Opioid type dependence, continuous ([facility]) (Primary Dx) 09/02/2024 Travel 08/28/2024 10:40 AM EDT Office Visit [facility] [address] [place] [phone] So Lebron MD Cough in adult patient (Primary Dx); Chronic obstructive pulmonary disease with acute exacerbation ([facility]) 08/28/2024 Travel 08/26/2024 Refill [facility] [address] [place] [phone] Maya Jolly RN Uncomplicated opioid dependence ([facility]/HCC) 08/23/2024 Refill [facility] [address] [place] [phone] Ananda Spain MD Chronic obstructive pulmonary disease, unspecified COPD type ([facility]) 08/18/2024 9:00 AM EDT Office Visit [facility] [address] [place] [phone] Latrice Ibrahim MD COPD exacerbation ([facility]) (Primary Dx); Hypertension, unspecified type; Type 2 diabetes mellitus with hyperglycemia, with long-term current use of insulin ([facility]) 08/18/2024 Travel 08/17/2024 Refill [facility] [address] [place] [address] Teresa Hope DO Type 2 diabetes mellitus with hyperglycemia, with long-term current use of insulin ([facility]) 08/16/2024 Refill [facility] [address] [place] [address] Name, MD Ananda 08/11/2024 Orders Only GENERIC EXTERNAL DATA DEPARTMENT Provider, Generic External Data 08/07/2024 Telephone [facility] [address] [place] [address] Wilbur Aguilera MA october recalls 08/06/2024 9:00 AM EDT Office Visit [facility] [address] [place] [address] Natalie Davis, MADIE Reduced visual acuity (Primary Dx) 08/06/2024 Travel 08/05/2024 9:15 AM EDT Clinical Support [facility] [address] [place] [address] Sonali Stubbs RN Uncomplicated opioid dependence ([facility]) (Primary Dx) 08/05/2024 Travel from Last 3 Months Immunizations Immunization Administration [...] Sign Reading Time Taken Comments Blood Pressure 121/81 10/16/2024 10:17 AM EDT Pulse 82 10/16/2024 10:17 AM EDT Temperature 36.4 C (97.6 F) 10/16/2024 10:17 AM EDT Respiratory Rate 18 10/16/2024 10:17 AM EDT Oxygen Saturation 97% 10/16/2024 10:17 AM EDT Inhaled Oxygen Concentration - - Weight 56.2 kg (124 lb) 10/16/2024 10:17 AM EDT Height 170.2 cm (5' 7 ) 08/28/2024 10:54 AM EDT Body Mass Index 19.42 08/28/2024 10:54 AM EDT Plan of Treatment Upcoming Encounters Date Type Department Care Team (Late st Contact Info) Description 11/10/2024 9:15 AM EDT Office Visit [facility] [address] [place] [phone] Grabiel, MD Ananda [address] [place] [phone] 11/25/2024 9:15 AM EDT Office Visit [facility] [address] [place] [phone] Latrice Ibrahim MD [address] [place] [address] 11/26/2024 9:00 AM EDT Medication Management [facility] [address] [place] [phone] PuiaGeeta, PharmD [address] [place] [address] 02/05/2025 9:30 AM EST Office Visit [facility] [address] [place] [address] TarkaNatalie, OD [address] [place] [address] Health Maintenance Due Date Last Done Comments [...] Colonoscopy 08/15/2020 08/16/2015 Colorectal Cancer Screening 08/15/2020 Diabetes: Foot Exam 07/23/2024 07/24/2023, 07/24/2023, 07/24/2023, Additional history exists DTaP/Tdap/Td Vaccines (3 - Td or Tdap) 08/14/2024 08/14/2014, 05/25/2011 Diabetes: Hemoglobin A1C 10/15/2024 025, 05/27/2024, 04/16/2024, Additional history exists COVID-19 Vaccine ( season) 2024 02/10/2021, 05/18/2020 Influenza Vaccine (#1) 2024 , 11/20/2023, 01/21/2023, Additional history exists Lipid Panel 05/27/2025 05/27/2024, 05/02, 02/13/2022, Additional history exists Diabetes: Urine Protein Screening 05/29/2025 05/29/2024, 05/14/2023, 02/13/2022, Additional history exists Depression Screening 07/15/2025 07/15/2024, 07/16/19 25 Disability Screening 07/15/2025 07/15/2024 SDOH Screening 07/15/2025 07/15/2024 Tobacco Screening 10/16/2025 10/16/2024 Eye Exam 08/06/2026 08/06/2024, 06/0 07/2024, 08/06/2024, Additional history exists RSV Patients and Patients Aged 60 years or older (1 - 1-dose 75+ series) 2041 Hepatitis A Vaccines Aged Out 05/11/2009 No long er eligible based on patient's age to complete this topic Pneumococcal Vaccine: 50+ Years Completed 01/21/2023, 05/25/2011 HIV Screening Completed 03/29/2023, 07/06/2020 Hepatitis C Screening Completed 03/29/2023, 024 HIB Vaccines Aged Out No longer eligi [...] 025 10:52 AM EDT) No Sonali Stubbs, COREY Note: 1-2 cigs per day Procedures Procedure Name Priority Date/Time Associated Diagnosis Comments POCT FARA-14 URINE DRUG SCREEN Routine 10/28/2024 9:10 AM EDT Uncomplicated opioid dependence ([facility]) POCT RAPID COVID ANTIGEN Routine 10/16/2024 10:18 AM EDT Cough in adult patient POCT INFLUENZA B (ID NOW RAPID MOLECULAR) Routine 10/16/2024 10:18 AM EDT Cough in adult patient POCT INFLUENZA A (ID NOW RAPID MOLECULAR) Routine 10/16/2024 10:18 AM EDT Cough in adult patient GLUCOSE, WHOLE BLOOD Routine 10/13/2024 8:50 AM EDT IMMUNOGLOBULIN E Routine 10/09/2024 8:23 AM EDT RESPIRATORY ALLERGY PROFILE REGION I Routine 10/09/2024 8:23 AM EDT CBC WITH AUTO DIFFERENTIAL Routine 10/09/2024 8:23 AM EDT US JANAE COMPLETE Routine 09/30/2024 1:41 PM EDT POCT FARA-14 URINE DRUG SCREEN Routine 09/02/2024 8:45 AM EDT Opioid type dependence, continuous (CMS/HCC) POCT INFLUENZA A (ID NOW RAPID MOLECULAR) Routine 08/28/2024 11:23 AM EDT Cough in adult patient POCT INFLUENZA B (ID NOW RAPID MOLECULAR) Routine 08/28/2024 11:23 AM EDT Cough in adult patient POCT COVID-19 AG RAO ID NOW Routine 08/28/2024 11:21 AM EDT Cough in adult patient GLUCOSE, WHOLE BLOOD Routine 08/11/2024 8:20 AM EDT AUTOMATED VISUAL FIELD, EXTENDED - OU - BOTH EYES Routine 08/06/2024 9:00 AM EDT Reduced visual acuity POCT FRAA-14 URINE DRUG SCREEN Routine 08/05/2024 9:11 AM EDT Uncomplicated opioid dependence (CMS/HCC) POCT GLYCATED HEMOGLOBIN, TOTAL Routine 07/15/2024 10:54 AM EDT Type 2 diabetes mellitus with hyperglycemia, with long-term current use of insulin (CMS/HCC) ALBUMIN, RANDOM URINE W/CREATININE Routine 05/29/2024 8:43 AM EDT LIPID PANEL, STANDARD Routine 05/27/2024 8:40 AM EDT Type 2 diabetes mellitus with hyperglycemia, with long-term current use of insulin (CMS/HCC) Chronic obstructive pulmonary disease, unspecified COPD type (CMS/HCC) HEPATITIS C AB W/REFL TO HCV RNA, QN, PCR Routine 03/29/2023 9:12 AM EST HIV 1/2 ANTIGEN/ANTIBODY, FOURTH GENERATION W/RFL Routine 03/29/2023 9:12 AM EST HM COLONOSCOPY Routine 08/16/2015 1:52 PM EDT from Last 3 Months or Most Recently Relevant to Health Maintenance Results * (ABNORMAL) POCT FARA-14 Urine Drug Screen (10/28/2024 9:10 AM EDT) Only the most recent of3 resultswithin the time period is included. THC Negative Negative Cocaine Screen, Urine Negative Negative Opiate Screen, Urine Negative Negative Methamphetamine Screen Urine Negative Negative Amphetamine Screen, Urine Negative Negative Benzodiazepines Screen, Urine Positive(A) Negative Barbiturate Screen, Urine Negative Negative Methadone Screen, Urine Negative Negative Buprenophine Screen, Urine Positive(A) Negative TCA, Urine Negative Negative MDMA Urine Negative Negative ng/mL Oxycodone Screen, Urine Negative Negative Phencyclidine (PCP), Urine Negative Negative Fentanyl, Urine Negative Negative Urine Urine specimen obtained by clean catch procedure / Unknown 10/28/2024 9:10 AM EDT us Latrice Ibrahim MD POINT OF CARE TEST ENTER/EDIT OR DERABLES Final Result * Influenza B (ID NOW Rapid Molecular) (10/16/2024 10:18 AM EDT) Only the most recent of2 resultswithin the time period is included. Influenza B Negative Negative, Indeterminate [facility] Swab 10/16/2024 10:1 8 AM EDT us So Osman MD POINT OF CARE TEST EN TER/EDIT ORDERABLES Final Result [facility] [address] [place] [address] [phone] * Influenza A (ID NOW Rapid Molecular) (10/16/2024 10:18 AM EDT) Only the most recent of2 resultswithin the time period is included. Influenza A Negative Negative, Indeterminate [facility] Swab 10/16/2024 10:1 8 AM EDT So Osman MD POINT OF CARE TEST EN TER/EDIT ORDERABLES Final Result Performing Organization Address [facility] Co de Phone Number [facility] [address] [place] [phone] * POCT Rapid COVID Ag (10/16/2024 10:18 AM EDT) Pathologist [facility] Rapid COVID Ag Negative Swab 10/16/2024 10:1 8 AM EDT So Osman MD POINT OF CARE TEST EN TER/EDIT ORDERABLES Final Result * Glucose, Whole Blood (10/13/2024 8:50 AM EDT) Only the most recent of2 resultswithin the time period is included. [facility] Glucose, Whole Blood 93 60 - 115 mg/dL [facility] Comment:METER #: [id number] Testing performed in the Endocrinology Department [address] , [address], [facility]. 10/13/2024 8:50 AM EDT 10/13/2024 8:53 AM EDT Generic External Data Provider LAB BLOOD ORDERAB LES Final Result Performing Organization Address [facility] Co de Phone Number [facility] [address] [place] [phone] * (ABNORMAL) Respiratory Allergy Profile Region I (10/09/2024 8:23 AM EDT) [facility] Mouse Urine Proteins (E72) IgE <0.10 kU/L [facility] Class 0 [facility] Cockroach (I6) IgE 0.17(A) kU/L [facility] Class 0/1 [facility] Dermatophagoides farinae (D2) IgE 0.99(A) kU/L [facility] Class 2 [facility] Cat Dander (E1) IgE <0.10 kU/L [facility] Class 0 [facility] Comment:THIS TEST WAS PERFOR MED AT:[facility] [address] [id number] GARCIA MD Dog Dander (E5) IgE <0.10 kU/L [facility] Class 0 [facility] Comment:THIS TEST WAS PERFOR MED AT:[facility] [address] [id number] GARCIA MD Fredo Grass (G6) IgE <0.10 kU/L [facility] Class 0 [facility] Cladosporium herbarum (M2) IgE <0.10 kU/L [facility] Class 0 [facility] Aspergillus Fumigatis (M3) IgE <0.10 kU/L [facility] Class 0 [facility] Alternaria alternata (M6) IgE <0.10 kU/L [facility] Class 0 [facility] Comment:THIS TEST WAS PERFOR MED AT:[facility] [address] [phone] GARCIA MD [place] (t6) IgE <0.10 kU/L [facility] Class 0 [facility] [place] (T7) IgE <0.10 kU/L [facility] Class 0 [facility] [place] (T10) IgE <0.10 kU/L [facility] Class 0 [facility] [place] (T11) IgE <0.10 kU/L [facility] Class 0 [facility] [place] (T14) IgE <0.10 kU/L [facility] Class 0 [facility] [place] (t15) IgE <0.10 kU/L [facility] Class 0 [facility] [place] (T70) IgE <0.10 kU/L [facility] Class 0 [facility] Common Ragweed (Short) (W1) IgE 0.12(A) kU/L [facility] Class 0/1 [facility] Mugwort (w6) IgE <0.10 kU/L [facility] Class 0 [facility] Dermatophagoides pteronyssinus (D1) IgE 0.98(A) kU/L [facility] Class 2 [facility] [place] Grass (g2) IgE <0.10 kU/L [facility] Class 0 [facility] Penicillium Notatum (M1) IgE <0.10 kU/L [facility] Class 0 [facility] Birch (T3) IgE <0.10 kU/L [facility] Class 0 [facility] Elm (t8) IgE <0.10 kU/L [facility] Class 0 [facility] Maple ([place]) (T1) IgE <0.10 kU/L [facility] Class 0 [facility] Rough Pigweed (W14) IgE <0.10 kU/L [facility] Class 0 [facility] Sheep Sciota (W18) IgE <0.10 kU/L [facility] Class 0 [facility] Allergen Comment See Below [facility] Comment: Specific Level of AllergenIGE Class kU/L Specific IGE Antibody ----- --------- 0 <0.10 Absent/Undetectable 0/1 0.10-0.34 Very Low Level 1 0.35-0.69 Low Level 2 0.70-3.49 Moderate Level 3 3.50-17.4 High Level 4 17.5-49.9 Very High Level 5 50-100 Very High Level 6 >100 Very High LevelThe clinical relevance of allergen results of0.10-0.34 kU/L are undetermined and intended forspecialist use.Allergens denoted with a include results usingone or more analyte specific reagents. In thosecases, the test was developed and its analyticalperformance characteristics have been determined by[employer]. It has not been cleared or approvedby the U.S. Food and Drug Administration. This assayhas been validated pursuant to the CLIA regulationsand is used for clinical purposes.THIS TEST WAS PERFORMED AT:[facility] [address] [place] [id number] GARCIA MD 10/09/2024 8:23 AM EDT 10/09/2024 8:26 AM EDT us Generic External Data Provider LAB BLOOD ORDERAB LES Final Result [facility] [address] [place] [address] [phone] * (ABNORMAL) CBC auto differential (10/09/2024 8:23 AM EDT) White Blood Count 5.9 4.8 - 10.8 X10*3/uL [facility] Red Blood Count 4.56(L) 4.60 - 5.80 X10*6/uL [facility] Hemoglobin 13.5(L) 14.0 - 18.0 g/dl [facility] Hematocrit 40.9(L) 42.0 - 52.0 % [facility] Mean Corpuscular Volume 89.7 80.0 - 98.0 fL [facility] Mean Corpuscular Hemoglobin 29.6 27.0 - 33.0 pg [facility] Mean Corpuscular HGB Conc 33.0 31.0 - 36.0 g/dl [facility] Red Cell Distribution Width 13.3 11.0 - 16.0 % [facility] Platelet Count 237 160 - 400 X10*3/uL [facility] Mean Platelet Volume 10.6 9.4 - 12.4 fL [facility] Neutrophils Percent Auto 43.2(L) 45 - 73 % [facility] Imm Gran Pct Auto 0.3 0.0 - 0.4 % [facility] Lymphocytes Percent Auto 32.8 20 - 40 % [facility] Monocytes Percent Auto 12.5(H) 2 - 11 % [facility] Eosinophils Percent Auto 10.0(H) 0 - 4 % [facility] Basophils Percent Auto 1.2 0 - 2 % [facility] NRBC Pct Auto 0.0 0.0 - 0.2 /100WBC [facility] Neutrophils Absolute Auto 2.6 2.0 - 8.3 x10*3/uL [facility] Imm Gran Abs Auto 0.02 0.00 - 0.03 X10*3/uL [facility] Lymphocytes Absolute Auto 1.9 1.2 - 4.9 X10*3/uL [facility] Monocytes Absolute Auto 0.7 0.1 - 1.2 X10*3/uL [facility] Eosinophils Absolute Auto 0.6(H) 0.0 - 0.4 X10*3/uL [facility] Basophils Absolute Auto 0.1 0.0 - 0.2 X10*3/uL [facility] NRBC Abs Auto 0.000 0.0 - 0.012 X10*3/uL [facility] 10/09/2024 8:23 AM EDT 10/09/2024 8:26 AM EDT us Generic External Data Provider LAB BLOOD ORDERAB LES Final Result Performing Organization Address [facility]/ZIP Co de Phone Number [facility] [facility] [address] [place] [phone] * (ABNORMAL) Immunoglobulin E (10/09/2024 8:23 AM EDT) Immunoglobulin E 358(A) <FI=898 kU/L [facility] 10/09/2024 8:23 AM EDT 10/09/2024 8:26 AM EDT us Generic External Data Provider LAB BLOOD ORDERAB LES Final Result Performing Organization Address [facility]/ZIP Co de Phone Number [facility] [address] [place] [phone] * US JANAE COMPLETE (09/30/2024 1:41 PM EDT) Anatomical Region Laterality Modality Abdomen Ultrasound 09/30/2024 1:41 PM EDT Narrative 09/30/2024 1:42 PM EDT [address] [address] Ultrasound Report Signed Patient: Hubert Rios MR#: [id number] : 1965 Acct:[id number] Age/Sex: 59 / M ADM Date: 09/30/24 Loc: HO.US Attending Dr: Nichole Monteiro NP Ordering Physician: Nichole Monteiro NP Date of Service: 09/30/24 Procedure(s): US JANAE complete Accession Number(s): [id number] cc: Ananda Spain MD; Nichole Monteiro NP CLINICAL HISTORY: I73.9 - Peripheral vascular disease, unspecified --- Additional Notes or Special Instructions: prior heavy smoker in a diabetic patient Ankle-brachial index Comparison: None Findings: Right brachial artery 146 mmHg Right posterior tibial artery 161 mmHg Right dorsalis pedis artery 158 mmHg Left brachial artery 146 mmHg Left posterior tibial artery 159 mmHg Left dorsalis pedis artery 150 mmHg Impression: 1. Right JANAE 1.10 2. Left JANAE 1.09 This document has been electronically signed by: Yarely Allan MD on 09/30/2024 13:41:30 Dictated By: Yarely Allan MD Signed By: <Electronically signed by Yarely Allan MD in OV> 09/30/24 1342 DD/ 1341 TD/TT: 09/30/24 1341 Clamp Jig Assembler: Procedure Note Donotuseinterpreter, Image - 09/30/[address] [address] Ultrasound Report Signed Patient: Hubert Rios MMR#: [id number] : 1965Acct:[id number] Age/Sex: 59 / MADM Date: 09/30/24 Loc: HO.US Attending Dr: Nichole Monteiro INSPECTOR [employer] MIRROR Ordering Physician: Nichole Monteiro NP Date of Service: 09/30/24 Procedure(s): US JANAE complete Accession Number(s): [id number] cc: Ananda Spain MD; Nichole Monteiro NP CLINICAL HISTORY: I73.9 - Peripheral vascular disease, unspecified ---Additional Notes or Special Instructions: prior heavy smoker in a diabetic patient Ankle-brachial index Comparison: None Findings: Right brachial artery 146 mmHg Right posterior tibial artery 161 mmHg Right dorsalis pedis artery 158 mmHg Left brachial artery 146 mmHg Left posterior tibial artery 159 mmHg Left dorsalis pedis artery 150 mmHg Impression: 1. Right JANAE 1.10 2. Left JANAE 1.09 This document has been electronically signed by: Yarely Allan MD on 09/30/2024 13:41:30 Dictated By: Yarely Allan MD Signed By: <Electronically signed by Yarely Allan MD in OV> 09/30/24 1342 DD/ 1341 TD/TT: 09/30/24 1341 Clamp Jig Assembler: [facility] External Provider IMG US PROCEDURES Final Result * POCT Rapid Covid-19 RAO ID NOW (08/28/2024 11:21 AM EDT) Pathologist [facility] Coronavirus Antigen PCR Negative Negative, Indeterminate, None Detected, Invalid, Specimen unsatisfactory for evaluation, Weakly Positive, 2+ QC Media Lot # [id number] Lot# Expiration Date [id number] Swab 08/28/2024 11:2 1 AM EDT So Osman MD POINT OF CARE TEST EN TER/EDIT ORDERABLES Final Result * Automated Visual Field, Extended - OU - Both Eyes (08/06/2024 9:00 AM EDT) Narrative Natalie Davis, OD - 08/13/2024 12:02 PM EDT VISUAL FIELD INTERPRETATION Visual Field Interpretation Test Details: 24-2 pulsar Reliability: Right eye (OD): adequate reliability (0/7 FP, 2/7 FN) Left eye (OS): good reliability (07/ FP, 0/7 FN) Statistical Indices: MD: OD: 14.7 OS: 14.2 sLV/PSD: OD: 4.2 OS: 5.2 Impression: Reason for testing: Reduced Visual Acuity Impression: OD: Cluster of defects nasal midperiphery, some scattered defects inferior midperiphy and temporal to blindspot. No structural correlation with OCT. OS: Diffuse nasal midperipheral/peripheral field loss extending superiorly and inferiorly crossing vertical midline. No structural correlation with OCT Progression: Baseline Management Plan: Repeat visual field (VF) in 3-6 months. us Natalie Davis OD OPHTH VISUAL FIELD Final Result * (ABNORMAL) POCT HGB A1C (07/15/2024 10:54 AM EDT) Hemoglobin A1C 8.1(A) 4.0 - 6.0 % QC Media Lot # [id number] Lot# Expiration Date Blood 07/15/2024 10:5 4 AM EDT Ananda Spain MD POINT OF CARE TEST ENTER/EDIT OR DERABLES Final Result * Albumin, Random Urine W/Creatinine (05/29/2024 8:43 AM EDT) Creatinine, Urine 126.68 mg/dL [facility] Microalbumin Urine 15.0 mg/L [facility] Microalbum Creatinine Ratio Ur 11.8 <30 ug/mg cr [facility] Comment:Albumin/Creatinine R atio Reference Ranges: Normal: < 30 ug/mg creatinine Microalbuminuria: 30 - 300 ug/mg creatinineClinical Albuminuria: > 300 ug/mg creatinine 05/29/2024 8:43 AM EDT 05/29/2024 9:05 AM EDT us Generic External Data Provider LAB URINE ORDERAB LES Final Result [facility] [address] [place] [phone] * (ABNORMAL) Lipid Panel, Standard (05/27/2024 8:40 AM EDT) Triglycerides 73 <150 mg/dL [facility] Comment:Desirable Triglyceri de: less than 150 mg/dLBorderline High Triglyceride 150-199 mg/dLHigh Triglyceride: 200-499 mg/dLVery High Triglyceride: greater than or equal to 5OO mg/dL Cholesterol 221(H) <200 mg/dL [facility] Comment:Desirable Cholestero l: less than 200 mg/dLBorderline High Cholesterol: 200-239 mg/dLHigh Cholesterol: greater than 239 mg/dL LDL Cholesterol Calculated 75 <100 mg/dL [facility] Comment:Desirable LDL: less than 100 mg/dLNear Optimal/Above Optimal LDL: 110- 129 mg/dLBorderline High LDL: 130-159 mg/dLHigh LDL: 160-189 mg/dLVery High LDL: greater than or equal to 190 mg/dL HDL Cholesterol 132 >40 mg/dL [facility] Comment:Desirable HDL: great er than 40 mg/dL Note: This HDL assay may give artificially low results in patients with liver disease. Blood Venous blood specimen / Unknown 05/27/2024 8:40 AM EDT 05/27/2024 8:40 AM EDT Ananda Spain MD LAB BLOOD ORDERABLES Final Resul t Performing Organization Address City/[facility]/ZIP Co de Phone Number [facility] [address] [place] [phone] * (ABNORMAL) Hepatitis C Antibody with Reflex to HCV, RNA, Quantitative, Real- Time PCR (03/29/2023 9:12 AM EST) Hepatitis C Antibody Reactive( A) Nonreactive [facility] Comment:Presumptive evidence of antibodies to HCV. 03/29/2023 9:12 AM EST 03/29/2023 11:11 AM EST Latrice Ibrahim MD LAB BLOOD ORDERABLES Final Resul t Performing Organization Address City/[facility]/ZIP Co de Phone Number [facility] [address] [place] [phone] * HIV-1/2 Antigen and Antibodies, Fourth Generation, with Reflexes (03/29/2023 9:12 AM EST) HIV AB/AG Nonreactive Nonreactive [facility] Comment:HIV-1 p24 Ag and/or HIV-1/HIV-2 Ab not detected.A test result that is nonreactive does not exclude thepossibility of exposure to or infection with HIV-1 and/orHIV-2. Nonreactive results in this assay for individualswith prior exposure to HIV-1 and/or HIV-2 may be due toantigen and antibody levels that are below the limit ofdetection of this assay.The [employer] HIV Ag/Ab Combo assay result andsupplemental assay results should be interpreted inconjunction with the patient's clinical presentation,history and other laboratory results. If the results areinconsistent with clinical evidence, additional testing issuggested to confirm the result. 03/29/2023 9:12 AM EST 03/29/2023 11:11 AM EST Latrice Ibrahim MD LAB BLOOD ORDERABLES Final Resul t [facility] [address] [place] [phone] * Hm Colonoscopy (08/16/2015 1:52 PM EDT) Colonoscopy Normal Normal Narrative Gloria Álvarez - 08/16/2015 1:52 PM EDT Recommended 10 year follow up Historical Provider HEALTH MAINTENANCE Final Result from Last 3 Months or Most Recently Relevant to Health Maintenance [facility] [employer] ST[employer]ARD [facility] ONE CARE < 65 Care Teams Orthodontist Assistant Relationship Specialty Start Date End Date Name, MD Ananda [address] [place] [phone] PCP - General Family Medicine 06/01/15 Geeta Dove PharmD [address] [place] [phone] Pharmacist Internal Medicine 07/21/24
--- OUTSIDE RECORDS SUMMARY | 2024-11-05 13:24 | XMS_ITS | Encounter Summary ---
Author Organization [employer] Address [address] [place] [address] [address] [place] [address] Care Team Providers Care Media Planner / Buyer Name Role Phone Name, Ananda CRANDALL Primary Care Provider [phone] Geeta Dove PharmD Unavailable [phone] Reason for Visit * Reason Onset Date Comments Prior Authorization 05/07/2022 Appointment 05/07/2022 Encounter Details Date Type Department Care Team (Late st Contact Info) Description 05/07/2022 Telephone [facility] [address] [place] [address] Kelvin Haque DDS [address] [place], [place] [phone] Prior Authorization; Appointment Social History Tobacco Use [...] specify if for partial. Don't see if [facility] has approved partials for patient. Patient verifying. DR documented in this encounter Plan of Treatment Upcoming Encounters Date Type Department Care Team (Late st Contact Info) Description 11/10/2024 9:15 AM EDT Office Visit [facility] [address] [place] [phone] Name, MD Ananda [address] [place] [phone] 11/25/2024 9:15 AM EDT Office Visit [address] [address] Latrice Ibrahim MD [address] [place] [phone] 11/26/2024 9:00 AM EDT Medication Management [facility] [address] [place] [phone] Geeta Dove PharmD [address] [place] [address] 02/05/2025 9:30 AM EST Office Visit [facility] [address] [place] [address] Natalie Davis, OD [address] [place] [address] documented as of this encounter Visit Diagnoses Not on filedocumented in this encounter Care Teams Media Planner / Buyer Relationship Specialty Start Date End Date Name, MD Ananda [address] [place] [phone] PCP - General Family Medicine 06/01/15 Geeta Dove PharmD [address] [place] [address] [place] [address] Pharmacist Internal Medicine 07/21/24 documented as of this encounter
--- OUTSIDE RECORDS SUMMARY | 2024-11-05 13:24 | XMS_ITS | Encounter Summary ---
Author Organization [employer] Address [address] [facility] [address] [place] [address] Care Team Providers Care Plan Consultant Name Role Phone Name, Ananda CRANDALL Primary Care Provider [phone] Geeta Dove PharmD Unavailable [phone] Reason for Visit * Reason Comments Med Refill Encounter Details Date Type Department Care Team (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 insulin use ([facility]) Social History Tobacco Use Types [...] Description 11/10/2024 9:15 AM EDT Office Visit [facility] [address] [place] [phone] Name, MD Ananda [address] [place] [address] 11/25/2024 9:15 AM EDT Office Visit [facility] [address] [place] [phone] Latrice Ibrahim MD [address] [place] [address] 11/26/2024 9:00 AM EDT Medication Management [facility] [address] [place] [phone] Geeta Dove, PharmD [address] [place] [address] 02/05/2025 9:30 AM EST Office Visit [facility] [address] [place] [address] Natalie Davis, OD [address] [place] [address] documented as of this encounter Visit Diagnoses Diagnosis Type 2 diabetes mellitus without complication, unspecified whether usp insulin use ([facility]) documented in this encounter Additional Health Concerns Assessment Noted Time PHQ-9 Depression Total Score: 10 024 9:15 AM EDT documented as of this encounter Care Teams Plan Consultant Relationship Specialty Start Date End Date Name, MD Ananda [address] [place] [address] PCP - General Family Medicine 06/01/15 Geeta Dove PharmD [address] [place] [address] Pharmacist Internal Medicine 07/21/24 documented as of this encounter
== END 2024-11-05 11:44 | disposition home or self-care (01) ==
LOC: HO.US 11:43
PROVIDERS: PCP Internal Medicine Geriatric Medicine; Visit Provider Urology
DX: C64.9 Malignant neoplasm of unspecified kidney, except renal pelvis (principal)
CPT/HCPCS: 76775

== ENCOUNTER → 2024-11-05 11:46 | Outpatient (BNV) | payer OTHER, SELFPAY | PROVIDERS: PCP Internal Medicine Geriatric Medicine; Visit Provider Radiology Diagnostic Radiology | DX: D17.71 Benign lipomatous neoplasm of kidney (principal) | CPT/HCPCS: 76775 ==

== ENCOUNTER 2024-11-23 08:31 | Outpatient (AMB) | payer OTHER, SELFPAY ==
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
== END 2024-11-23 09:49 | disposition home or self-care (01) ==
LOC: HO.ENCR 08:32
PROVIDERS: PCP Internal Medicine Geriatric Medicine; Visit Provider Registered Nurse Diabetes Educator
DX: E13.9 Other specified diabetes mellitus without complications (principal)

== ENCOUNTER 2024-11-23 08:31 | Outpatient (AMB) | payer OTHER, SELFPAY ==
[2024-11-23 08:34] VITALS: BP 136/78; PULSE 89; O2SAT 96; BMI 19.4
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
[2024-11-23 09:24] LABS: Glucose, Whole Blood 91 mg/dL (60-115)
--- OUTSIDE RECORDS SUMMARY | 2024-11-23 09:50 | XMS_ITS | Encounter Summary ---
Author Organization [employer] Address [address] [place] [address] Care Team Providers Care Record Cutter Name Role Phone Name, Ananda CRANDALL Primary Care Provider [phone] Geeta Dove PharmD Unavailable [phone] Reason for Visit * Reason Comments Med Refill Encounter Details Date Type Department Care Team ([facility] st Contact Info) Description 12/11/2023 Refill [facility] [address] [place], [place] [phone] Name, MD Ananda [address] [place] [address] Type 2 diabetes mellitus without complication, unspecified whether long term care social worker insulin use ([facility]) Social History Tobacco Use Types Packs/Day [...] Care Team (Late st Contact Info) Description 11/25/2024 9:15 AM EDT Office Visit [facility] [address] [place] [phone] Latrice Ibrahim MD [address] [place] [phone] 11/26/2024 9:00 AM EDT Medication Management [facility] [address] [place] [phone] Geeta Dove, PharmD [address] [place] [address] 01/20/2025 9:15 AM EST Office Visit [facility] [address] [place] [phone] Latrice Ibrahim MD [address] [place] [address] 02/05/2025 9:30 AM EST Office Visit [facility] OPTOM[facility]RY [address] [place] [phone] Natalie Davis, OD [address] [place] [address] documented as of this encounter Visit Diagnoses Diagnosis Type 2 diabetes mellitus without complication, unspecified whether long term care social worker insulin use ([facility]) documented in this encounter Additional Health Concerns Assessment Noted Time PHQ-9 Depression Total Score: 10 024 9:15 AM EDT documented as of this encounter Care Teams Record Cutter Relationship Specialty Start Date End Date Name, MD Ananda [address] [place] [address] PCP - General Family Medicine 06/01/15 Geeta Dove PharmD [address] [place] [address] Pharmacist Internal Medicine 07/21/24 documented as of this encounter
--- OUTSIDE RECORDS SUMMARY | 2024-11-23 09:50 | XMS_ITS | Encounter Summary ---
Author Organization [employer] Address [address] [place] [address] Care Team Providers Care Teacher Emotionally Impaired Name Role Phone Name, Ananda CRANDALL Primary Care Provider [phone] Geeta Dove PharmD Unavailable [phone] Reason for Visit * Reason Onset Date Comments case in lab 10/03/2022 Encounter Details Date Type Department Care Team ([facility] st Contact Info) Description 10/03/2022 Telephone [facility] [address] [place] [address] Kelvin Haque, LENNY [address] [place] [address] case in lab Social History Tobacco Use [...] - 10/03/2022 2:29 PM EDT Hubert from [employer] called in rene that the soonest they can get case back in to office would be 10/10. They stated it is 5 business days and does not include drop off or vegetable picker date. Confirmed with Hubert that as of yet appt has not been scheduled to return and that I would inform officeDR documented in this encounter Plan of Treatment Upcoming Encounters Date Type Department Care Team (Late st Contact Info) Description 11/25/2024 9:15 AM EDT Office Visit [facility] [address] [place] [phone] Latrice Ibrahim MD [address] [place] [address] 11/26/2024 9:00 AM EDT Medication Management [facility] [address] [place] [address] Geeta Dove, PharmD [address] [place] [address] 01/20/2025 9:15 AM EST Office Visit [facility] [address] [place] [phone] Latrice Ibrahim MD [address] [place] [address] 02/05/2025 9:30 AM EST Office Visit [facility] OPTOMETRY [address] [place] [address] TarNatalie elizabeth, OD [address] [place] [address] documented as of this encounter Visit Diagnoses Not on filedocumented in this encounter Additional Health Concerns Assessment Noted Time PHQ-9 Depression Total Score: 3 10/04/19 23 2:21 PM EDT documented as of this encounter Care Teams Teacher Emotionally Impaired Relationship Specialty Start Date End Date Name, MD Ananda [address] [place] [address] PCP - General Family Medicine 06/01/15 Geeta Dove PharmD [address] [place] [address] Pharmacist Internal Medicine 07/21/24 documented as of this encounter
--- OUTSIDE RECORDS SUMMARY | 2024-11-23 09:50 | XMS_ITS | Encounter Summary ---
Author Organization [employer] Address [address] [place] [address] 7t [place] [address] Care Team Providers Care Class A Regional Drivers Name Role Phone Name, Ananda CRANDALL Primary Care Provider [phone] Geeta Dove PharmD Unavailable [phone] Encounter Details Date Type Department Care Team ([facility] Contact Info) Description 05/10/2022 Orders Only [facility] MEDICINE [address] [place] [address] [phone] Alis Zavala, COREY Uncomplicated opioid dependence (CMS/HCC) [...] Team ([facility] Contact Info) Description 11/25/2024 9:15 AM EDT Office Visit [facility] MEDICINE [address] [place] [address] Latrice Ibrahim MD 230 [place], [place] [phone] 11/26/2024 9:00 AM EDT Medication Management [facility] MEDICINE [address] [place] [address] 17[address] Geeta Dove, Donte 230 [place] [address] 01/20/2025 9:15 AM EST Office Visit [facility] MEDICINE [address] [place] [address] 78[address] Latrice Ibrahim MD [address] [place] [address] 02/05/2025 9:30 AM EST Office Visit [facility] OPTOMETRY 267 [place] [address] Natalie Davis, OD 267 [place] [address] documented as of this encounter Visit Diagnoses Diagnosis Uncomplicated opioid dependence (CMS/[facility]) documented in this encounter Care Teams Class A Regional Drivers Relationship Specialty Start Date End Date Name, MD Ananda [address] [place] [address] 14[address] PCP - General Family Medicine 06/01/15 Geeta Dove, Donte [address] [place] [address] Pharmacist Internal Medicine 07/21/24 documented as of this encounter
--- OUTSIDE RECORDS SUMMARY | 2024-11-23 09:50 | XMS_ITS | Encounter Summary ---
Author Organization [employer] Address [address] [place] [address] 7t [place] [address] Care Team Providers Care Linotype Operator Name Role Phone Name, Ananda CRANDALL Primary Care Provider [phone] Geeta Dove PharmD Unavailable [phone] Encounter Details Date Type Department Care Team ([facility] Contact Info) Description 08/13/2022 Abstract [facility] MEDICINE [address] [place] [address] [phone] Name, MD Ananda [address] [place] [address] Social History Tobacco Use Types Packs/Day Years [...] Team ([facility] Contact Info) Description 11/25/2024 9:15 AM EDT Office Visit [facility] MEDICINE [address] [place] [address] [phone] Ltarice Ibrahim MD 230 [place] [address] 11/26/2024 9:00 AM EDT Medication Management [facility] MEDICINE [address] [place] [address] [place] [address] Geeta Dove, Donte 230 [facility] [place] [address] 01/20/2025 9:15 AM EST Office Visit [facility] MEDICINE [address] [place] [address] Latrice Ibrahim MD 230 [place] [address] 02/05/2025 9:30 AM EST Office Visit [facility] OPTOMETRY 267 [place] [address] Natalie Davis, OD 267 [place] [address] documented as of this encounter Procedures Procedure [...] on filedocumented in this encounter Care Teams Linotype Operator Relationship Specialty Start Date End Date Name, MD Ananda [facility] [place] [address] PCP - General Family Medicine 06/01/15 Geeta Dove, Donte [place] [address] Pharmacist Internal Medicine 07/21/24 documented as of this encounter
--- OUTSIDE RECORDS SUMMARY | 2024-11-23 09:50 | XMS_ITS | Encounter Summary ---
Author Organization [employer] Address [address] [facility] 7t [place] [address] Care Team Providers Care Nc Machinist Name Role Phone Name, Ananda CRANDALL Primary Care Provider [phone] Geeta Dove PharmD Unavailable [phone] Reason for Visit * Reason Comments Med Refill Encounter Details Date Type Department Care Team ([facility] Contact Info) Description 06/07/2022 Refill [facility] [address] [place] [address] [phone] Sebastián Graves MD 230 [place] [address] Pain of left leg Social History Tobacco [...] Team ([facility] Contact Info) Description 11/25/2024 9:15 AM EDT Office Visit [facility] MEDICINE [address] [place] [address] 8[address] Latrice Ibrahim MD [address] [place] [address] [place] [address] 11/26/2024 9:00 AM EDT Medication Management [facility] MEDICINE [address] [place] [address] 17285 Geeta Dove PharmD [address] [place] [address] 8[address] 01/20/2025 9:15 AM EST Office Visit [facility] MEDICINE [address] [place] [address] Latrice Ibrahim MD [address] [place] [address] 02/05/2025 9:30 AM EST Office Visit [facility] OPTOMETRY 267 [place] [address] Natalie Davis OD 267 [place] [address] documented as of this encounter Visit Diagnoses Diagnosis Pain of left leg documented in this encounter Care Teams Nc Machinist Relationship Specialty Start Date End Date Name, MD Ananda [address] [place] [address] PCP - General Family Medicine 06/01/15 Geeta Dove PharmD [address] [place] [address] Pharmacist Internal Medicine 07/21/24 documented as of this encounter
--- OUTSIDE RECORDS SUMMARY | 2024-11-23 09:50 | XMS_ITS | Encounter Summary ---
Author Organization [employer] Address [address] [place] [address] 7t [place] [address] Care Team Providers Care Professor Of Public Administration Name Role Phone Name, Ananda CRANDALL Primary Care Provider [phone] Geeta Dove PharmD Unavailable [phone] Reason for Visit * Reason Comments Med Refill Encounter Details Date Type Department Care Team (Late st Contact Info) Description 12/07/2022 Refill [facility] MED[facility] 230 [place] [address] Name, MD Ananda 230 [place] [address] Type 2 diabetes mellitus without complication, unspecified whether rn long term care insulin use ([facility]); Type 2 diabetes mellitus without complication, with long-term current use of insulin ([facility]) Social History Tobacco Use [...] Department Care Team (Late Contact Info) Description 11/25/2024 9:15 AM EDT Office Visit [facility] MEDICINE [address] [place] [address] 91140 Latrice Ibrahim MD 230 [facility] [place] [address] 11/26/2024 9:00 AM EDT Medication Management [address] [address] Geeta Dove PharmD 230 [facility] [place] [address] 01/20/2025 9:15 AM EST Office Visit [facility] MEDICINE [address] [place] [address] [place] [address] Latrice Ibrahim MD 230 [facility] [place] [address] 02/05/2025 9:30 AM EST Office Visit [facility] OPTOMETRY 267 [place] [address] TarkaNatalie, OD 267 [place] [address] documented as of this encounter Visit Diagnoses Diagnosis Type 2 diabetes mellitus without complication, unspecified whether rn long term care insulin use ([facility]) documented in this encounter Additional Health Concerns Assessment Noted Time PHQ-9 Depression Total Score: 3 10/04/19 23 2:21 PM EDT documented as of this encounter Care Teams Professor Of Public Administration Relationship Specialty Start Date End Date Name, MD Ananda [address] [place], [place] [address]les[address] [facility] [place] [address] PCP - General Family Medicine 06/01/15 Geeta Dove PharmD [address] [place] [address] [place] [address] Pharmacist Internal Medicine 07/21/24 documented as of this encounter
--- OUTSIDE RECORDS SUMMARY | 2024-11-23 09:50 | XMS_ITS | Encounter Summary ---
Author Organization [employer] Address [address] [facility] 7t [place] [address] Care Team Providers Care Motorboat Mechanic Name Role Phone Name, Ananda CRANDALL Primary Care Provider [phone] Geeta Dove PharmD Unavailable [phone] Encounter Details Date Type Department Care Team ([facility] Contact Info) Description 11/23/2024 Orders Only GENERIC EXTERNAL DATA DEPARTMENT Provider, [...] Upcoming Encounters Date Type Department Care Team ([facility] st Contact Info) Description 11/25/2024 9:15 AM EDT Office Visit [facility] MEDICINE [address] [place] [address] Latrice Ibrahim MD [address] [place] [address] 11/26/2024 9:00 AM EDT Medication Management [facility] MEDICINE [address] [place] [address] Geeta Dove, PharmD [address] [place] [address] 01/20/2025 9:15 AM EST Office Visit [facility] MEDICINE [address] [place] [address] Latrice Ibrahim MD [address] [place] [address] 02/05/2025 9:30 AM EST Office Visit [facility] OPTOMETRY 267 [place] [address] Natalie Davis, OD 267 [place] [address] documented as of this encounter Goals Goal [...] Associated Diagnosis Comments GLUCOSE, WHOLE BLOOD Routine 11/23/2024 9:21 AM EDT documented in this encounter Results * Glucose, Whole Blood (11/23/2024 9:21 AM EDT) Glucose, Whole Blood 91 60 - 115 mg/dL [facility] Comment:METER #: [id number] Testing performed in the Endocrinology Department [address] , [address], [facility]. 11/23/2024 9:21 AM EDT 11/23/2024 9:24 AM EDT us Generic External Data Provider LAB BLOOD ORDERAB LES Final Result Performing Organization Address City/State/[facility] Co de Phone Number [facility] [address] [place] [phone] documented in this encounter Visit Diagnoses Not on filedocumented in this encounter Additional Health Concerns Assessment Noted Time PHQ-9 Depression Total Score: 5 07/16/19 11:03 AM EDT documented as of this encounter Care Teams Motorboat Mechanic Relationship Specialty Start Date End Date Name, MD Ananda 230 [place] [address] PCP - General Family Medicine 06/01/15 Geeta Dove PharmD 230 [place] [address] Pharmacist Internal Medicine 07/21/24 documented as of this encounter
--- OUTSIDE RECORDS SUMMARY | 2024-11-23 09:50 | XMS_ITS | Encounter Summary ---
Author Organization [employer] Address 75 [facility] 7t [place] [address] Care Team Providers Care Supply Analyst Name Role Phone Name, Annada CRANDALL Primary Care Provider Geeta Dove PharmD Unavailable [phone] Reason for Visit * Reason Comments Med Refill Encounter Details Date Type Department Care Team ([facility] st Contact Info) Description 02/28/2023 Refill [facility] 230 [place], [place] [phone] Name, MD Ananda 230 [place] [address] Pain of left leg Social History Tobacco [...] Description 11/25/2024 9:15 AM EDT Office Visit [facility] MEDICINE [address] [place] [address] Latrice Ibrahim MD [address] [place] [address] 11/26/2024 9:00 AM EDT Medication Management [facility] MEDICINE [address] [place] [address] 287[address] Geeta Dove, PharmD [address] [place] [address] 01/20/2025 9:15 AM EST Office Visit [address] [address] Latrice Ibrahim MD 230 [place] [address] 02/05/2025 9:30 AM EST Office Visit [facility] OPTOMETRY 267 [place] [address] Natalie Davis OD 267 [place] [address] documented as of this encounter Visit Diagnoses Diagnosis Pain of left leg documented in this encounter Additional Health Concerns Assessment Noted Time PHQ-9 Depression Total Score: 3 10/04/19 23 2:21 PM EDT documented as of this encounter Care Teams Supply Analyst Relationship Specialty Start Date End Date Name, MD Ananda 230 [place] [address] PCP - General Family Medicine 06/01/15 Geeta Dove, LoretoD 230 [place] [address] Pharmacist Internal Medicine 07/21/24 documented as of this encounter
--- OUTSIDE RECORDS SUMMARY | 2024-11-23 09:50 | XMS_ITS | Encounter Summary ---
Author Organization [employer] Address [address] [place] [address] 7t [place] [address] Care Team Providers Care Customer Marketing Assistant Name Role Phone Name, Ananda CRANDALL Primary Care Provider [phone] Geeta Dove PharmD Unavailable [phone] Encounter Details Date Type Department Care Team (Latest Contact Info) Description 01/09/2021 Abstract [facility] CONVERSIONS Dental, Provider, DDS Social [...] Care Team ( st Contact Info) Description 11/25/2024 9:15 AM EDT Office Visit [facility] MEDICINE [address] [place] [address] Latrice Ibrahim MD [address] [place] [address] 11/26/2024 9:00 AM EDT Medication Management [facility] MEDICINE [address] [place] [address] 23[address] Geeta Dove, PharmD [address] [place] [address] 422[address] 01/20/2025 9:15 AM EST Office Visit [address] [phone] Latrice Ibrahim MD 230 [place] [address] 02/05/2025 9:30 AM EST Office Visit [facility] OPTOMETRY 267 [place], [place] [phone] Natalie Davis, OD 267 [place] [address] documented as of this encounter Visit Diagnoses Not on filedocumented in this encounter Care Teams Customer Marketing Assistant Relationship Specialty Start Date End Date Name, MD Ananda [address] [place] [address] [phone] PCP - General Family Medicine 06/01/15 Geeta Dove, LoretoD [address] [place] [address] [phone] Pharmacist Internal Medicine 07/21/24 documented as of this encounter
--- OUTSIDE RECORDS SUMMARY | 2024-11-23 09:50 | XMS_ITS | Encounter Summary ---
Author Organization [employer] Address [address] [facility] 7t [place] [address] Care Team Providers Care Faculty I On Call Medical Assistant Name Role Phone Name, Ananda CRANDALL Primary Care Provider [phone] Geeta Dove PharmD Unavailable [phone] Encounter Details Date Type Department Care Team ([facility] Contact Info) Description 02/14/2022 Abstract [facility] MEDICINE [address] [place] [address] [phone] ProviderDamari MD Social History Tobacco Use Types [...] Care Team ([facility] Contact Info) Description 11/25/2024 9:15 AM EDT Office Visit [facility] MEDICINE [address] [place] [address] 9[address] Latrice Ibrahim MD [address] [place] [address] [phone] 11/26/2024 9:00 AM EDT Medication Management [facility] MEDICINE [address] [place] [address] 44495 Geeta Dove PharmD [address] [place] [address] 16[address] 01/20/2025 9:15 AM EST Office Visit [facility] MEDICINE [address] [place] [address] 467[address] Latrice Ibrahim MD [address] [place] [address] 24[address] 02/05/2025 9:30 AM EST Office Visit [facility] OPTOMETRY 267 [place] [address] Natalie Davis, OD 267 [place] [address] documented as of this encounter Visit Diagnoses Not on filedocumented in this encounter Care Teams Faculty I On Call Medical Assistant Relationship Specialty Start Date End Date Name, MD Ananda [address] [place] [address] PCP - General Family Medicine 06/01/15 Geeta Dove PharmD [address] [place] [address] Pharmacist Internal Medicine 07/21/24 documented as of this encounter
--- OUTSIDE RECORDS SUMMARY | 2024-11-23 09:50 | XMS_ITS | Encounter Summary ---
Author Organization [employer] Address [address] [facility] 7t [place] [address] Care Team Providers Care Needle Loom Operator Name Role Phone Name, Ananda CRANDALL Primary Care Provider [phone] Geeta Dove PharmD Unavailable [phone] Reason for Visit * Reason Comments Med Refill Encounter Details Date Type Department Care Team ([facility] st Contact Info) Description 03/08/[address] [facility] MEDICINE 230 [place], [place] [phone] Name, MD Ananda 230 [place] [address] Chronic obstructive pulmonary disease, unspecified COPD type [...] [facility] MEDICINE [address] [place] [address] Latrice Ibrahim MD [address] [place] [address] 11/26/2024 9:00 AM EDT Medication Management [facility] MEDICINE [address] [place] [address] Geeta Dove, PharmD [address] [place] [address] 01/20/2025 9:15 AM EST Office Visit [facility] MEDICINE [address] [place] [address] 9[address] Latrice Ibrahim MD 230 [place] [address] 02/05/2025 9:30 AM EST Office Visit [facility] OPTOMETRY 267 [place] [address] Natalie Davis, OD 267 [place] [address] documented as of this encounter Visit Diagnoses Diagnosis Chronic obstructive pulmonary disease, unspecified COPD type (CMS/[facility]) documented in this encounter Additional Health Concerns Assessment Noted Time PHQ-9 Depression Total Score: 10 024 9:15 AM EDT documented as of this encounter Care Teams Needle Loom Operator Relationship Specialty Start Date End Date Name, MD Ananda 230 [place] [address] PCP - General Family Medicine 06/01/15 Geeat Dove PharmD 230 [place] [address] Pharmacist Internal Medicine 07/21/24 documented as of this encounter
--- OUTSIDE RECORDS SUMMARY | 2024-11-23 09:50 | XMS_ITS | Encounter Summary ---
Author Organization [employer] Address [address] [facility] 7t [place] [address] Care Team Providers Care Waste Specialist Name Role Phone Name, Ananda CRANDALL Primary Care Provider [phone] Geeta Dove PharmD Unavailable [phone] Reason for Visit * Reason Onset Date Comments Appointment 09/06/2022 Encounter Details Date Type Department Care Team ([facility] st Contact Info) Description 09/06/2022 Telephone [facility] 230 [place] [address] Kelvin Haque DDS 230 [place], [place] [phone] Appointment Social History Tobacco Use Types Packs/Day [...] Description 11/25/2024 9:15 AM EDT Office Visit [facility] MEDICINE [address] [place] [address] Latrice Ibrahim MD [address] [place] [address] 11/26/2024 9:00 AM EDT Medication Management [address] [address] Geeta Dove PharmD [address] [place] [address] 01/20/2025 9:15 AM EST Office Visit [facility] MEDICINE [address] [place] [address] Latrice Ibrahim MD [address] [place] [address] 02/05/2025 9:30 AM EST Office Visit [facility] OPTOMETRY 267 [place] [address] Natalie Davis, OD 267 [place] [address] documented as of this encounter Visit Diagnoses Not on filedocumented in this encounter Care Teams Waste Specialist Relationship Specialty Start Date End Date Name, MD Ananda [address] [place] [address] PCP - General Family Medicine 06/01/15 Geeta Dove, PharmD [address] [place] [address] Pharmacist Internal Medicine 07/21/24 documented as of this encounter
--- OUTSIDE RECORDS SUMMARY | 2024-11-23 09:50 | XMS_ITS | Encounter Summary ---
Author Organization [employer] Address [address] [facility] 7t [place] [address] Care Team Providers Care Senior Oracle Soa Developer Name Role Phone Name, Ananda CRANDALL Primary Care Provider [phone] Geeta Dove PharmD Unavailable [phone] Reason for Visit * Reason Onset Date Comments Med Refill 11/18/2024 Encounter Details Date Type Department Care Team (Late st Contact Info) Description 11/18/[address] [facility] MEDICINE 230 [place], [place] [phone] Sonali Stubbs, COREY 230 [place] [address] Uncomplicated opioid dependence (CMS/HCC) Social History Tobacco [...] Telephone Encounter - Sonali Stubbs RN - 11/18/2024 11:47 AM EDT 8 week Rx documented in this encounter Plan of Treatment Upcoming Encounters Date Type Department Care Team (Late st Contact Info) Description 11/25/2024 9:15 AM EDT Office Visit [facility] MEDICINE [address] [place] [address] Latrice Ibrahim MD [address] [place] [address] 11/26/2024 9:00 AM EDT Medication Management [facility] MEDICINE [address] [place] [address] Geeta Dove, Donte [address] [place] [address] 01/20/2025 9:15 AM EST Office Visit [facility] MEDICINE [address] [place] [address] Latrice Ibrahim MD 230 [place] [address] 02/05/2025 9:30 AM EST Office Visit [facility] OPTOMETRY 267 [place] [address] Natalie Davis, OD 267 [place] [address] documented as of this encounter Goals Goal [...] as of this encounter Care Teams Senior Oracle Soa Developer Relationship Specialty Start Date End Date Name, MD Ananda [address] [place] [address] PCP - General Family Medicine 06/01/15 Geeta Dove PharmD [address] [place] [address] Pharmacist Internal Medicine 07/21/24 documented as of this encounter
--- OUTSIDE RECORDS SUMMARY | 2024-11-23 09:50 | XMS_ITS | Encounter Summary ---
Author Organization [employer] Address [address] [place] [address] 7t [place] [address] Care Team Providers Care Recycling Crew Supervisor Name Role Phone Name, Ananda CRANDALL Primary Care Provider [phone] Geeta Dove PharmD Unavailable [phone] Reason for Visit * Reason Onset Date Comments Prior Authorization 05/07/2022 Appointment 05/07/2022 Encounter Details Date Type Department Care Team (Late st Contact Info) Description 05/07/2022 Telephone [facility] 230 [place] [address] Kelvin Haque DDS 230 [place], [place] [phone] Prior Authorization; Appointment Social History Tobacco Use [...] for partial. Don't see if [facility] has approved partials for patient. Patient verifying. DR documented in this encounter Plan of Treatment Upcoming Encounters Date Type Department Care Team (Late st Contact Info) Description 11/25/2024 9:15 AM EDT Office Visit [facility] MEDICINE [address] [place] [address] Latrice Ibrahim MD [address] [place] [address] 11/26/2024 9:00 AM EDT Medication Management [address] [address] Geeta Dove PharmD [address] [place] [address] 01/20/2025 9:15 AM EST Office Visit [facility] MEDICINE [address] [place] [address] Latrice Ibrahim MD [address] [place] [address] 02/05/2025 9:30 AM EST Office Visit [facility] OPTOMETRY 267 [place] [address] Natalie Davis, OD 267 [place] [address] documented as of this encounter Visit Diagnoses Not on filedocumented in this encounter Care Teams Recycling Crew Supervisor Relationship Specialty Start Date End Date Name, MD Ananda [address] [place] [address] PCP - General Family Medicine 06/01/15 Geeta Dove PharmD [address] [place] [address], [place] [address] Pharmacist Internal Medicine 07/21/24 documented as of this encounter
--- OUTSIDE RECORDS SUMMARY | 2024-11-23 09:50 | XMS_ITS | Encounter Summary ---
Author Organization [employer] Address [address] [place] [address] Care Team Providers Care Comber Tender Name Role Phone Name, Ananda CRANDALL Primary Care Provider Geeta Dove PharmD Unavailable [phone] Reason for Visit * Reason Comments Med Refill Encounter Details Date Type Department Care Team ([facility] st Contact Info) Description 09/19/2023 Refill [facility] [address] [place], [place] [id number] Name, MD Ananda [address] [place] [address] Pain of left leg Social History Tobacco [...] Description 11/25/2024 9:15 AM EDT Office Visit [facility] [address] [place] [address] Latrice Ibrahim MD [address] [place] [address] 11/26/2024 9:00 AM EDT Medication Management [facility] [address] [place] [address] Geeta Dove, PharmD [address] [place] [address] 01/20/2025 9:15 AM EST Office Visit [facility] [address] [place] [address] Latrice Ibrahim MD [address] [place] [address] 02/05/2025 9:30 AM EST Office Visit [facility] [address] [place] [address] Natalie Davis, OD [address] [place] [address] documented as of this encounter Visit Diagnoses Diagnosis Pain of left leg documented in this encounter Additional Health Concerns Assessment Noted Time PHQ-9 Depression Total Score: 10 024 9:15 AM EDT documented as of this encounter Care Teams Comber Tender Relationship Specialty Start Date End Date Name, MD Ananda [address] [place] [address] PCP - General Family Medicine 06/01/15 Geeta Dove PharmD [address] [place] [address] Pharmacist Internal Medicine 07/21/24 documented as of this encounter
--- OUTSIDE RECORDS SUMMARY | 2024-11-23 09:50 | XMS_ITS | Encounter Summary ---
Author Organization [employer] Address [address] [facility] 7t [place] [address] Care Team Providers Care Agate Setter Name Role Phone Ananda Spain MD Primary Care Provider [phone] Geeta Dove PharmD Unavailable [phone] Reason for Visit * Reason Onset Date Comments ER Follow-up 09/26/2022 Encounter Details Date Type Department Care Team ([facility] st Contact Info) Description 09/26/2022 Telephone [facility] [address] [place], [place] [phone] Name, MD Ananda [address] [place] [address] ER Follow-up Social History Tobacco Use Types [...] 10:24 AM EDT T/c to pt. Through [employer] id - [id number] for below message, pt. Has surgery at [...] in case of any new or worseningsymptoms. [facility] hours are reviewed. * Telephone Encounter - Hawa Morales - 10/01/2022 9:35 AM EDT Tc from pt returning call regarding message below. Please contact pt at [phone] (yoruba speaker) * Telephone Encounter - Em Leblanc RN - 09/27/2022 3:29 PM EDT T/C to pt. On [phone] through [employer] id - [id number] for status check and to schedule follow up apt. No answer. LVM to call back on [phone]. * Telephone Encounter - Netta Alvares - 09/26/2022 11:04 AM EDT Tc from pt calling to advise PCP of an ER visit to [facility] on 09/24/22 for surgery on the left leg. Pt advised will forward to team nurse for f/u. Please contact pt at [phone] (Persian) documented in this encounter Plan of Treatment Upcoming Encounters Date Type Department Care Team (Late st Contact Info) Description 11/25/2024 9:15 AM EDT Office Visit [facility] [address] [facility] [place] [address] Latrice Ibrahim MD [address] [facility] [place] [address] 11/26/2024 9:00 AM EDT Medication Management [facility] [address] [place] [address] [place] [address] Geeta Dove PharmD [address] [facility] [place] [address] 01/20/2025 9:15 AM EST Office Visit [facility] [address] [place], [place] [address] [address] Latrice Ibrahim MD [address] [facility] [place] [address] 02/05/2025 9:30 AM EST Office Visit [facility] [address] [place] [address] TarkaNatalie, OD [address] [place] [address] documented as of this encounter Visit Diagnoses Not on filedocumented in this encounter Care Teams Agate Setter Relationship Specialty Start Date End Date Name, MD Ananda [address] [place], [place] [address] [place] [address] PCP - General Family Medicine 06/01/15 Geeta Dove PharmD [address] [place], [place] [address] [place] [address] Pharmacist Internal Medicine 07/21/24 documented as of this encounter
--- OUTSIDE RECORDS SUMMARY | 2024-11-23 09:50 | XMS_ITS | Encounter Summary ---
Author Organization [employer] Address [address] [place] [address] 7t [place] [address] Care Team Providers Care Staff Development Nurse Name Role Phone Name, Ananda CRANDALL Primary Care Provider [phone] Geeta Dove PharmD Unavailable [phone] Reason for Visit * Reason Comments Med Refill Encounter Details Date Type Department Care Team (Late Contact Info) Description 04/25/2022 Refill [facility] [address] [place] [address] [phone] Name, MD Ananda [address] [place] [phone] Wheezing (Primary Dx) Social History Tobacco Use [...] Team ([facility] Contact Info) Description 11/25/2024 9:15 AM EDT Office Visit [facility] [address] [place] [address] Latrice Ibrahim MD [address] [place] [address] 11/26/2024 9:00 AM EDT Medication Management [facility] [address] [place] [address] Geeta Dove PharmD [address] [place] [address] 01/20/2025 9:15 AM EST Office Visit [facility] [address] [place] [address] Latrice Ibrahim MD [address] [place] [address] 02/05/2025 9:30 AM EST Office Visit [facility] [address] [place] [address] Natalie Davis OD [address] [place] [address] documented as of this encounter Visit Diagnoses Diagnosis Wheezing- Primary documented in this encounter Care Teams Staff Development Nurse Relationship Specialty Start Date End Date Name, MD Ananda [address] [place] [address] PCP - General Family Medicine 06/01/15 Geeta Dove, Donte [address] [place] [address] Pharmacist Internal Medicine 07/21/24 documented as of this encounter
--- OUTSIDE RECORDS SUMMARY | 2024-11-23 09:50 | XMS_ITS | Clinical Summary ---
Author Organization [employer] Address [address] [place] [address] 7[address] [place] [address] Care Team Providers Care Special Education Supervisor Name Role Phone Name, Ananda CRANDALL Primary Care Provider [phone] Geeta Dove PharmD Unavailable [phone] Allergies No known active allergies Medications ramelteon (Rozerem) 8 MG tablet Take 1 tablet by mouth at bed time. Active Misc. Devices (Pulse Oximeter For Finger) miscIndications :COPD exacerbation ([facility]) 1 each 2 times daily. Call [facility] if consistently < 95% 1 each 023 Active clonazePAM (KlonoPIN) 1 MG tablet Take 1 mg by mouth 2 times daily. 023 Active Lancets (OneTouch Delica Plus [id number]) misc TEST BLOOD SUGAR THREE TIMES DAILY [...] obstructive pulmonary disease, unspecified COPD type ([facility]) INHALE 2 PUFFS BY MOUTH EVERY 4 [...] 2 diabetes mellitus without complication, unspecified whether filler leaf cutter long insulin use ([facility]) USE DIRECTED FOUR TIMES DAILY 100 each [...] with long-term current use of insulin ([facility]) TAKE 1 TABLET BY MOUTH EVERY DAY [...] 3 Film under the tongue Once per day. 84 Film 1 025 2024 Active Suboxone 8-2 MG SL [...] on 10/21/2024 at 10 am at [facility] pulmonology [place], [address] [facility] [address], I advise not to miss this appointment [...] and left lower lobe calcified large granuloma. [address] [address] [address] Scan Report Signed Patient: Hubert Rios MR#: [id number] : 1965 Acct:[id number] Age/Sex: 59 / M ADM Date: 07/02/24 Loc: HO.CT Attending Dr: Chanel Thomas NP Ordering Physician: Chanel Thomas NP Date of Service: 07/02/24 Procedure(s): CT chest wo IV con Accession Number(s): [id number] cc: Name,Ananda CRANDALL; Chanel Thomas NP Report Number: [id number]: Total DLP = 110.00 mGy-cm EXAMINATION: CT [...] 10/01/2022 07/15/2024 Disorder of abdomen 02/01/2022 07/24/19 24 Abdominal wall bulge 02/01/2022 024 Contusion of chest 10/24/2017 Rib pain 08/01/2017 07/24/2023 Non-cardiac chest pain 11/07/201607/15 Rib lesion 09/21/2016 08/29/2022 Wheezing 08/08/2016 08/29/2022 Backache 08/01/2011 07/15/2024 Encounters Date Type Department Care Team Description 11/23/2024 Orders Only GENERIC EXTERNAL DATA DEPARTMENT Provider, Generic External Data 11/18/2024 Refill [facility] MEDICINE [address] [place] [address] [phone] Sonali Stubbs RN Uncomplicated opioid dependence ([facility]/HCC) 11/06/2024 Telephone [facility] MEDICINE [address] [place] [address] [phone] Ananda Spain MD CHARTPREP 11/05/2024 Orders Only [facility] External Provider, [facility] 10/28/2024 9:00 AM EDT Office Visit [facility] MEDICINE [address] [place] [address] 37570 Latrice Ibrahim MD Uncomplicated opioid dependence (CMS/HCC) (Primary Dx) 10/28/2024 Travel 10/27/2024 Telephone [facility] MEDICINE [address] [place] [address] [phone] Latrice Ibrahim MD CHART PREP 10/21/2024 Refill [facility] MED[facility]INE [address] [place] [address] 08192 Sonali Stubbs RN Uncomplicated opioid dependence ([facility]/HCC) 10/16/2024 11:00 AM EDT Office Visit [facility] WALK-IN CENTER [address] [place] [address] 77378 So Lebron MD COPD exacerbation ([facility]) (Primary Dx); Cough in adult patient 10/16/2024 Travel 10/13/2024 Orders Only GENERIC EXTERNAL DATA DEPARTMENT Provider, Generic External Data 10/09/2024 Orders Only GENERIC EXTERNAL DATA DEPARTMENT Provider, Generic External Data 09/30/2024 Orders Only [facility] External Provider, [facility] 09/29/2024 9:00 AM EDT Clinical Support [address] [address] Maya Jolly RN Opioid type dependence, continuous (CMS/HCC) 09/29/2024 Travel 09/23/2024 Refill [facility] MEDICINE [address] [place] [address] 41500 Sonali Stubbs, COREY Uncomplicated opioid dependence ([facility]/HCC) 09/21/2024 Telephone [facility] MEDICINE [address] [place] [address] Ananda Spain MD Letter Request (I called the patient, regarding his request for a letter. He stated that a lot of dust enters the apartment where he is currently living, and it is making his lung condition worse. He stated that housing will allow him to move to a different location, if he provides a letter from his PCP.) 09/21/2024 Travel 09/21/2024 Telephone [facility] MEDICINE [address] [place] [phone] Geeta Dove, LoretoD 09/02/2024 9:00 AM EDT Clinical Support [facility] MEDICINE [address] [place] [address] [phone] Melvina Macias RN Opioid type dependence, continuous ([facility]) (Primary Dx) 09/02/2024 Travel 08/28/2024 10:40 AM EDT Office Visit [facility] [address] [place] [address] [phone] So Lebron MD Cough in adult patient (Primary Dx); Chronic obstructive pulmonary disease with acute exacerbation ([facility]) 08/28/2024 Travel 08/26/2024 Refill [facility] MEDICINE [address] [place] [address] [phone] Maya Jolly RN Uncomplicated opioid dependence ([facility]CC) 08/23/2024 Refill [facility] MEDICINE [address] [place] [address] [phone] Ananda Spain MD Chronic obstructive pulmonary disease, unspecified COPD type ([facility]) from Last 3 Months Immunizations Immunization Administration Dates Next Due Hep A, Adult 05/11/2009 Influenza injectable quadriv alent preservative free 01/21/2023,01/02/2022,02/10/2021,03/07,01/13/2019,01/11/2018 Influenza, Split (incl. aba fied surface antigen) 12/24/2012,11/06/2011 Influenza, seasonal, injecta ble, preservative free 03/30/2024,11/20/2023 [facility] SARS-CoV-2 Vaccination 05/18/2020 Pfizer Covid-19 Vaccine 12+ [...] Visit [facility] MEDICINE [address] [place] [address] [phone] Latrice Ibrahim MD [address] [place] [address] 11/26/2024 9:00 AM EDT Medication Management [facility] MEDICINE [address] [place] [address] 13559 Geeta Dove, PharmD [address] [place] [address] 01/20/2025 9:15 AM EST Office Visit [facility] MEDICINE [address] [place] [address] [phone] Latrice Ibrahim MD [address] [place] [address] 02/05/2025 9:30 AM EST Office Visit [facility] OPTOMETRY [address] [place] [address] Natalie Davis, OD [address] [place] [address] Health Maintenance Due Date Last Done Comments [...] to perform daily activities General On track( 10:52 AM EDT) No Sonali Stubbs, RN Reduce tobacco use (cigarettes, smokeless, etc) Tobacco Use On track( 10:52 AM EDT) No Sonali Stubbs, RN Note: 1-2 cigs per day Procedures Procedure Name Priority Date/Time Associated Diagnosis Comments GLUCOSE, WHOLE BLOOD Routine 11/23/2024 9:21 AM EDT US RENAL COMPLETE Routine 11/05/2024 12: 39 PM EDT POCT FARA-14 URINE DRUG SCREEN Routine 10/28/2024 9:10 AM EDT Uncomplicated opioid dependence (CMS/HCC) POCT RAPID COVID ANTIGEN Routine 10/16/2024 10:18 [...] 8:45 AM EDT Opioid type dependence, continuous ([facility]) POCT INFLUENZA A (ID NOW RAPID MOLECULAR) Routine 08/28/2024 11:23 AM EDT Cough in adult patient POCT INFLUENZA B (ID NOW RAPID MOLECULAR) Routine 08/28/2024 11:23 AM EDT Cough in adult patient POCT COVID-19 AG RAO ID NOW Routine 08/28/2024 11:21 AM EDT Cough in adult patient POCT GLYCATED HEMOGLOBIN, TOTAL Routine 07/15/2024 10:54 AM EDT Type 2 diabetes mellitus with hyperglycemia, with long-term current use of insulin ([facility]) ALBUMIN, RANDOM URINE W/CREATININE Routine 05/29/2024 8:43 [...] Health Maintenance Results * Glucose, Whole Blood (11/23/2024 9:21 AM EDT) Only the most recent of2 resultswithin the time period is included. Glucose, Whole Blood 91 60 - 115 mg/dL [facility] Comment:METER #: [id number] Testing performed in the Endocrinology Department [address] , [address], [facility]. 11/23/2024 9:21 AM EDT 11/23/2024 9:24 AM EDT us Generic External Data Provider LAB BLOOD ORDERAB LES Final Result Performing Organization Address City/State/[facility] Co de Phone Number [facility] [address] [place] [phone] * US Renal Complete (11/05/2024 12:39 PM EDT) Anatomical Region Laterality Modality Kidney Ultrasound 11/05/2024 12:3 9 PM EDT Narrative 11/05/2024 3:49 PM EDT [address] [address] Ultrasound Report Signed Patient: Hubert Rios MR#: [id number] 0650 : 1965 Acct:[id number] Age/Sex: 59 / M ADM Date: 11/05/24 Loc: HO.US Attending Dr: Hipolito Mcdaniel MD Ordering Physician: Hipolito Mcdaniel MD Date of Service: 11/05/24 Procedure(s): US renal BI Accession Number(s): [id number] cc: Hipolito Mcdaniel MD; Name,Ananda CRANDALL Reason for Exam: C64.9 - Malignant neoplasm of unspecified kidney, except renal pelvis EXAMINATION: US RETROPERITONEAL LIMITED (RENAL ONLY) CLINICAL INFORMATION: Malignant neoplasm of kidney. Status post cryoablation left kidney midpole lesion. COMPARISON: Ultrasound renal 12/06/2022. MRI 08/02/2023 TECHNIQUE: Routine retroperitoneal imaging of kidneys is performed FINDINGS: RIGHT KIDNEY: 11.5 x 4.8 x 4.8 cm (SAG x AP x TRV). The kidney is normal in size, contour, and echogenicity. Renal cortical thickness is normal. There are no echogenic calculi. There is an echogenic lesion in the upper pole right kidney measuring 1.4 x 1.1 x 1.0 cm . Question angiomyolipoma versus renal tumor. No hydronephrosis. LEFT KIDNEY: 9.7 x 6.4 x 3.6 cm (SAG x AP x TRV). The kidney is normal in size, contour, and echogenicity. Renal cortical thickness is normal. No echogenic calculi seen. There is 1.5 x 1.6 x 1.6 cm midpole cortical lesion with central hypoechoic area and a peripheral echogenic wall likely post cryoablation changes. On the previous ultrasound the same lesion in midpole measured 2.3 x 2.0 cm. It could represent a small angiomyolipoma or renal tumor. There is a second echogenic lesion in the midpole measuring 0.9 x 0.9 x 1.1 cm on axial image 35/38, series 1. This lesion was likely visualized on the previous MRI abdomen 08/02/2023 on axial slice 69/8 on MRI abdomen 08/02/2023. US/US renal BI IMPRESSION: Post cryoablation midpole lesion left kidney measures 1.5 x 1.6 x 1.6 cm. Previously it was exophytic partially exophytic and measured 1.8 x 2.3 cm on previous MRI. It has improved in size. Second echogenic lesion in and mid pole may represent angiomyolipoma or moderate small renal lesion. Likely angiomyolipoma or a small renal tumor upper pole right kidney. These small lesions are better visualized on the MRI abdomen study 08/02/2023. Electronically signed by: Sandeep Mackey MD 11/05/2024 03:46 PM EDT Dictated By: Sandeep Mackey MD Signed By: <Electronically signed by Sandeep Mackey MD in OV> 11/05/24 1546 DD/ 1239 TD/TT: 11/05/24 1250 Waiter/Waitress Captain: [facility] Procedure Note Donotuseinterpreter, Image - 11/05/[address] [address] Ultrasound Report Signed Patient: Hubert Rios [facility]#: [id number] 0650 : 1965Acct:[id number] Age/Sex: 59 / MADM Date: 11/05/24 Loc: HO.US Attending Dr: Hipolito Mcdaniel MD Ordering Physician: Hipolito Mcdaniel MD Date of Service: 11/05/24 Procedure(s): US renal BI Accession Number(s): [id number] cc: Hipolito Mcdaniel MD; Name,Ananda CRANDALL Reason for Exam: C64.9 - Malignant neoplasm of unspecified kidney, exceptrenal pelvis EXAMINATION: US RETROPERITONEAL LIMITED (RENAL ONLY) CLINICAL INFORMATION: Malignant neoplasm of kidney. Status post cryoablation left kidney midpole lesion. COMPARISON: Ultrasound renal 12/06/2022. MRI 08/02/2023 TECHNIQUE: Routine retroperitoneal imaging of kidneys is performed FINDINGS: RIGHT KIDNEY: 11.5 x 4.8 x 4.8 cm (SAG x AP x TRV). The kidney is normal in size, contour, and echogenicity. Renal cortical thickness is normal. There are no echogenic calculi. There is an echogenic lesion in the upper pole right kidney measuring 1.4 x 1.1 x 1.0 cm . Question angiomyolipoma versus renal tumor. No hydronephrosis. LEFT KIDNEY: 9.7 x 6.4 x 3.6 cm (SAG x AP x TRV). The kidney is normal in size, contour, and echogenicity. Renal cortical thickness is normal. No echogenic calculi seen. There is 1.5 x 1.6 x 1.6 cm midpole cortical lesion with central hypoechoic area and a peripheral echogenic wall likely post cryoablation changes. On the previous ultrasound the same lesion in midpole measured 2.3 x 2.0 cm. It could represent a small angiomyolipoma or renal tumor. There is a second echogenic lesion in the midpole measuring 0.9 x 0.9 x 1.1 cm on axial image 35/38, series 1. This lesion was likely visualized on the previous MRI abdomen 08/02/2023 on axial slice 69/8 on MRI abdomen 08/02/2023. US/US renal BI IMPRESSION: Post cryoablation midpole lesion left kidney measures 1.5 x 1.6 x 1.6 cm. Previously it was exophytic partially exophytic and measured 1.8 x 2.3 cm on previous MRI. It has improved in size. Second echogenic lesion in and mid pole may represent angiomyolipoma or moderate small renal lesion. Likely angiomyolipoma or a small renal tumor upper pole right kidney. These small lesions are better visualized on the MRI abdomen study 08/02/2023. Electronically signed by: Sandeep Mackey MD 11/05/2024 03:46 PM EDT RP Dictated By: Sandeep Mackey MD Signed By: <Electronically signed by Sandeep Mackey MD in OV> 11/05/24 1546 DD/ 1239 TD/TT: 11/05/24 1250 Waiter/Waitress Captain: ZABRINA [facility] External Provider IMG US PROCEDURES Final Result * (ABNORMAL) POCT FARA-14 Urine Drug Screen (10/28/2024 9:10 AM EDT) Only the most recent of2 resultswithin the time period is included. THC [...] procedure / Unknown 10/28/2024 9:10 AM EDT aLtrice Ibrahim MD POINT OF CARE TEST ENTER/EDIT OR DERABLES Final Result * Influenza B (ID NOW Rapid Molecular) (10/16/2024 10:18 AM EDT) Only the most recent of2 resultswithin the time period is included. [facility] Influenza B Negative Negative, Indeterminate [facility] Swab 10/16/2024 10:1 8 AM EDT So Osman MD POINT OF CARE TEST EN TER/EDIT ORDERABLES Final Result Performing Organization Address [facility] Co de Phone Number [facility] [address] [place] [phone] * Influenza A (ID NOW Rapid Molecular) (10/16/2024 10:18 AM EDT) Only the most recent of2 resultswithin the time period is included. [facility] Influenza A Negative Negative, Indeterminate [facility] Swab 10/16/2024 10:1 8 AM EDT So Osman MD POINT OF CARE TEST EN TER/EDIT ORDERABLES Final Result Performing Organization Address [facility] Co de Phone Number [facility] [address] [place] [phone] * POCT Rapid COVID Ag (10/16/2024 10:18 AM EDT) [facility] Rapid COVID Ag Negative Swab 10/16/2024 10:1 8 AM EDT So Osman MD POINT OF CARE TEST EN TER/EDIT ORDERABLES Final Result * (ABNORMAL) Respiratory Allergy Profile Region I (10/09/2024 8:23 AM EDT) Mouse Urine Proteins (E72) IgE <0.10 kU/L [facility] Class 0 [facility] Cockroach (I6) IgE 0.17(A) kU/L [facility] Class 0/1 [facility] Dermatophagoides farinae (D2) IgE 0.99(A) kU/L [facility] Class 2 [facility] Cat Dander (E1) IgE <0.10 kU/L [facility] Class 0 [facility] Comment:THIS TEST WAS PERFOR MED AT:[employer] [facility] [address] [phone] GARCIA MD Dog Dander (E5) IgE <0.10 kU/L [facility] Class 0 [facility] Comment:THIS TEST WAS PERFOR MED AT:[facility] [address] [phone] GARCIA MD Fredo Grass (G6) IgE <0.10 kU/L [facility] Class 0 [facility] Cladosporium herbarum (M2) IgE <0.10 kU/L [facility] Class 0 [facility] Aspergillus Fumigatis (M3) IgE <0.10 kU/L [facility] Class 0 [facility] Alternaria alternata (M6) IgE <0.10 kU/L [facility] Class 0 [facility] Comment:THIS TEST WAS PERFOR MED AT:[facility] [address] [phone] GARCIA MD [place] (t6) IgE <0.10 kU/L [facility] Class 0 [facility] Antigo (T7) IgE <0.10 kU/L [facility] Class 0 [facility] [place] Tree (T10) IgE <0.10 kU/L [facility] Class 0 [facility] [place] (T11) IgE <0.10 kU/L [facility] Class 0 [facility] [place] (T14) IgE <0.10 kU/L [facility] Class 0 [facility] [place] (t15) IgE <0.10 kU/L [facility] Class 0 [facility] White [place] (T70) IgE <0.10 kU/L [facility] Class 0 [facility] Common Ragweed (Short) (W1) IgE 0.12(A) kU/L [facility] Class 0/1 [facility] Mugwort (w6) IgE <0.10 kU/L [facility] Class 0 [facility] Dermatophagoides pteronyssinus (D1) IgE 0.98(A) kU/L [facility] Class 2 [facility] Bermuda Grass (g2) IgE <0.10 kU/L [facility] Class 0 [facility] Penicillium Notatum (M1) IgE <0.10 kU/L [facility] Class 0 [facility] Birch (T3) IgE <0.10 kU/L [facility] Class 0 [facility] Elm (t8) IgE <0.10 kU/L [facility] Class 0 [facility] Maple ([place]) (T1) IgE <0.10 kU/L [facility] Class 0 [facility] Rough Pigweed (W14) IgE <0.10 kU/L [facility] Class 0 [facility] Sheep [place] (W18) IgE <0.10 kU/L [facility] Class 0 [facility] Allergen Comment See Below [facility] Comment: Specific Level of AllergenIGE Class [...] and its analyticalperformance characteristics have been determined by[employer]. It has not been cleared or approvedby the U.S. Food and Drug Administration. This assayhas been validated pursuant to the CLIA regulationsand is used for clinical purposes.THIS TEST WAS PERFORMED AT:[employer] [place] [phone] GARCIA MD 10/09/2024 8:23 AM EDT 10/09/2024 8:26 AM EDT us Generic External Data Provider LAB BLOOD ORDERAB LES Final Result [facility] [address] [place] [phone] * (ABNORMAL) CBC auto differential (10/09/2024 8:23 AM EDT) White Blood Count 5.9 4.8 - 10.8 X10*3/uL [facility] Red Blood Count 4.56(L) 4.60 - 5.80 X10*6/uL [facility] Hemoglobin 13.5(L) 14.0 - 18.0 g/dl [facility] Hematocrit 40.9(L) 42.0 - 52.0 % [facility] Mean Corpuscular Volume 89.7 80.0 - 98.0 fL [facility] Mean Corpuscular Hemoglobin 29.6 27.0 - 33.0 pg [facility] Mean Corpuscular HGB Conc 33.0 31.0 - 36.0 g/dl [facility] Red Cell Distribution Width 13.3 11.0 - 16.0 % [facility] Platelet Count 237 160 - 400 X10*3/uL [facility] Mean Platelet Volume 10.6 9.4 - 12.4 fL [facility] Neutrophils Percent Auto 43.2(L) 45 - 73 % [facility] Imm Gran Pct Auto 0.3 0.0 - 0.4 % [facility] Lymphocytes Percent Auto 32.8 20 - 40 % [facility] Monocytes Percent Auto 12.5(H) 2 - 11 % [facility] Eosinophils Percent Auto 10.0(H) 0 - 4 % [facility] Basophils Percent Auto 1.2 0 - 2 % [facility] NRBC Pct Auto 0.0 0.0 - 0.2 /100WBC [facility] Neutrophils Absolute Auto 2.6 2.0 - 8.3 x10*3/uL [facility] Imm Gran Abs Auto 0.02 0.00 - 0.03 X10*3/uL [facility] Lymphocytes Absolute Auto 1.9 1.2 - 4.9 X10*3/uL [facility] Monocytes Absolute Auto 0.7 0.1 - 1.2 X10*3/uL [facility] Eosinophils Absolute Auto 0.6(H) 0.0 - 0.4 X10*3/uL [facility] Basophils Absolute Auto 0.1 0.0 - 0.2 X10*3/uL [facility] NRBC Abs Auto 0.000 0.0 - 0.012 X10*3/uL [facility] 10/09/2024 8:23 AM EDT 10/09/2024 8:26 AM EDT us Generic External Data Provider LAB BLOOD ORDERAB LES Final Result [facility] [address] [place] [phone] * (ABNORMAL) Immunoglobulin E (10/09/2024 8:23 AM EDT) Immunoglobulin E 358(A) <QC=999 kU/L [facility] 10/09/2024 8:23 AM EDT 10/09/2024 8:26 AM EDT us Generic External Data Provider LAB BLOOD ORDERAB LES Final Result Performing Organization Address City/State/[facility] Co de Phone Number [facility] [address] [place] [phone] * US JANAE COMPLETE (09/30/2024 1:41 PM EDT) Anatomical Region Laterality Modality Abdomen Ultrasound 09/30/2024 1:41 PM EDT Narrative 09/30/2024 1:42 PM EDT [address] [address] Ultrasound Report Signed Patient: Hubert Rios MR#: [id number] 0650 : 1965 Acct:[id number] Age/Sex: 59 / M ADM Date: 09/30/24 Loc: . Attending Dr: Nichole Monteiro NP Ordering Physician: Nichole Monteiro NP Date of Service: 09/30/24 Procedure(s): US JANAE complete Accession Number(s): [id number] cc: Ananda Spain MD; Nichole Monteiro NP [...] 09/30/24 1342 DD/ 1341 TD/TT: 09/30/24 1341 Waiter/Waitress Captain: Procedure Note Donotuseinterpreter, Image - 09/30/[address] [address] Ultrasound Report Signed Patient: Hubert Rios MMR#: [id number] : 1965Acct:[id number] Age/Sex: 59 / MADM Date: 09/30/24 Loc: .US Attending Dr: Nichole Monteiro NP Ordering Physician: Nichole Monteiro NP Date of Service: 09/30/24 Procedure(s): US JANAE complete Accession Number(s): [id number] cc: Ananda Spain MD; Nichole Monteiro NP [...] 09/30/24 1342 DD/ 1341 TD/TT: 09/30/24 1341 Waiter/Waitress Captain: [facility] External Provider IMG US PROCEDURES Final Result * POCT Rapid Covid-19 RAO ID NOW (08/28/2024 11:21 AM EDT) Coronavirus Antigen PCR Negative Negative, Indeterminate, None Detected, Invalid, Specimen unsatisfactory for evaluation, Weakly Positive, 2+ QC Media Lot # [id number] Lot# Expiration Date ,026 Swab 08/28/2024 11:2 1 AM EDT So Osman MD POINT OF CARE TEST EN TER/EDIT ORDERABLES Final Result * (ABNORMAL) POCT HGB A1C (07/15/2024 10:54 AM EDT) Hemoglobin A1C 8.1(A) 4.0 - 6.0 % QC Media Lot # [id number] Lot# Expiration Date Blood 07/15/2024 10:5 4 AM EDT us Ananda Name POINT OF CARE TEST ENTER/EDIT OR DERABLES Final Result * Albumin, Random Urine W/Creatinine (05/29/2024 8:43 AM EDT) Creatinine, Urine 126.68 mg/dL [facility] Microalbumin Urine 15.0 mg/L [facility] Microalbum Creatinine Ratio Ur 11.8 <30 ug/mg cr [facility] Comment:Albumin/Creatinine R atio Reference Ranges: Normal: < 30 ug/mg creatinine Microalbuminuria: 30 - 300 ug/mg creatinineClinical Albuminuria: > 300 ug/mg creatinine 05/29/2024 8:43 AM EDT 05/29/2024 9:05 AM EDT us Generic External Data Provider LAB URINE ORDERAB LES Final Result Performing Organization Address City/State/[facility] Co de Phone Number [facility] [address] [place] [phone] * (ABNORMAL) Lipid Panel, Standard (05/27/2024 8:40 AM EDT) Triglycerides 73 <150 mg/dL [facility] Comment:Desirable Triglyceri de: less than 150 mg/dLBorderline High Triglyceride 150-199 mg/dLHigh Triglyceride: 200-499 mg/dLVery High Triglyceride: greater than or equal to 5OO mg/dL Cholesterol 221(H) <200 mg/dL [facility] Comment:Desirable Cholestero l: less than 200 mg/dLBorderline High Cholesterol: 200-239 mg/dLHigh Cholesterol: greater than 239 mg/dL LDL Cholesterol Calculated 75 <100 mg/dL [facility] Comment:Desirable LDL: less than 100 mg/dLNear Optimal/Above Optimal LDL: 110- 129 mg/dLBorderline High LDL: 130-159 mg/dLHigh LDL: 160-189 mg/dLVery High LDL: greater than or equal to 190 mg/dL HDL Cholesterol 132 >40 mg/dL [facility] Comment:Desirable HDL: great er than 40 mg/dL Note: This HDL assay may give artificially low results in patients with liver disease. Blood Venous blood specimen / Unknown 05/27/2024 8:40 AM EDT 05/27/2024 8:40 AM EDT Ananda Spain MD LAB BLOOD ORDERABLES Final Resul t Performing Organization Address [facility]/ZIP Co de Phone Number [facility] [address] [place] [phone] * (ABNORMAL) Hepatitis C Antibody with Reflex to HCV, RNA, Quantitative, Real- Time PCR (03/29/2023 9:12 AM EST) Hepatitis C Antibody Reactive( A) Nonreactive [facility] Comment:Presumptive evidence of antibodies to HCV. 03/29/2023 9:12 AM EST 03/29/2023 11:11 AM EST Latrice Ibrahim MD LAB BLOOD ORDERABLES Final Resul t Performing Organization Address [facility] Co de Phone Number [facility] [address] [place] [address] [phone] * HIV-1/2 Antigen and Antibodies, Fourth Generation, with Reflexes (03/29/2023 9:12 AM EST) HIV AB/AG Nonreactive Nonreactive [facility] Comment:HIV-1 p24 Ag and/or HIV-1/HIV-2 Ab not detected.A test result that is nonreactive does not exclude thepossibility of exposure to or infection with HIV-1 and/orHIV-2. Nonreactive results in this assay for individualswith prior exposure to HIV-1 and/or HIV-2 may be due toantigen and antibody levels that are below the limit ofdetection of this assay.The [employer] HIV Ag/Ab Combo assay result andsupplemental assay results should be interpreted inconjunction with the patient's clinical presentation,history and other laboratory results. If the results areinconsistent with clinical evidence, additional testing issuggested to confirm the result. 03/29/2023 9:12 AM EST 03/29/2023 11:11 AM EST us Latrice Ibrahim MD LAB BLOOD ORDERABLES Final Resul t [facility] [address] [place] [phone] * Hm Colonoscopy (08/16/2015 1:52 PM EDT) Colonoscopy Normal Normal Narrative Gloria Álvarez - 08/16/2015 1:52 PM EDT Recommended 10 year follow up Historical Provider HEALTH MAINTENANCE Final Result from Last 3 Months or Most Recently Relevant to Health Maintenance Insurance [address] [place] [id number] [facility] ONE CARE < 65 Care Teams Special Education Supervisor Relationship Specialty Start Date End Date Name, MD Ananda [address] [place] [address] PCP - General Family Medicine 06/01/15 Geeta Dove PharmD [address] [place] [address] Pharmacist Internal Medicine 07/21/24
--- OUTSIDE RECORDS SUMMARY | 2024-11-23 09:50 | XMS_ITS | Encounter Summary ---
Author Organization [employer] Address [address] [place] [address] 7t [place] [address] Care Team Providers Care Traffic Inspector Name Role Phone Name, Ananda CRANDALL Primary Care Provider [phone] Geeta Dove PharmD Unavailable [phone] Encounter Details Date Type Department Care Team (Latest Contact Info) Description 01/06/2019 Abstract [facility] CONVERSIONS Dental, Provider, DDS Social [...] Office Visit [facility] MEDICINE [address] [place] [address] Latrice Ibrahim MD [address] [place] [address] 11/26/2024 9:00 AM EDT Medication Management [facility] MEDICINE [address] [place] [address] Geeta Dove, PharmD [address] [place] [address] 09[address] 01/20/2025 9:15 AM EST Office Visit [address] [phone] Latrice Ibrahim MD [address] [place] [address] 02/05/2025 9:30 AM EST Office Visit [facility] OPTOMETRY [address] [place], [place] [phone] Natalie Davis, OD [address] [place], [place] [phone] documented as of this encounter Visit Diagnoses Not on filedocumented in this encounter Care Teams Traffic Inspector Relationship Specialty Start Date End Date Name, MD Ananda [address] [place], [place] [phone] PCP - General Family Medicine 06/01/15 Geeta oDve, LoretoD [address] [place] [address] Pharmacist Internal Medicine 07/21/24 documented as of this encounter
--- OUTSIDE RECORDS SUMMARY | 2024-11-23 09:50 | XMS_ITS | Encounter Summary ---
Author Organization [employer] Address 75 [facility] 7t [place] [address] Care Team Providers Care Crook Operator Name Role Phone Name, Ananda CRANDALL Primary Care Provider [phone] Geeta Dove PharmD Unavailable [phone] Reason for Visit * Reason Comments Med Refill Encounter Details Date Type Department Care Team ([facility] st Contact Info) Description 08/23/2024 Refill [facility] MEDICINE [address] [place], [place] [phone] Name, MD Ananda [address] [place] [address] Chronic obstructive pulmonary disease, unspecified COPD type [...] Description 11/25/2024 9:15 AM EDT Office Visit [facility] MEDICINE [address] [place] [address] Latrice Ibrahim MD [address] [place] [address] 11/26/2024 9:00 AM EDT Medication Management [facility] MEDICINE [address] [place] [address] Geeta Dove, PharmD [address] [place] [address] 01/20/2025 9:15 AM EST Office Visit [facility] MEDICINE [address] [place] [address] Latrice Ibrahim MD [address] [place] [address] 02/05/2025 9:30 AM EST Office Visit [facility] OPTOMETRY [address] [place] [address] Natalie Davis, OD [address] [place] [address] documented as of this encounter Goals Goal [...] documented as of this encounter Care Teams Crook Operator Relationship Specialty Start Date End Date Name, MD Ananda [address] [place] [address] PCP - General Family Medicine 06/01/15 Geeta Dove PharmD [address] [place] [address]68 Pharmacist Internal Medicine 07/21/24 documented as of this encounter
--- OUTSIDE RECORDS SUMMARY | 2024-11-23 09:50 | XMS_ITS | Encounter Summary ---
Author Organization [employer] Address 75 [facility] 7t [place] [address] Care Team Providers Care Public Health Advisor Name Role Phone Name, Ananda CRANDALL Primary Care Provider [phone] Geeta Dove PharmD Unavailable [phone] Encounter Details Date Type Department Care Team ([facility] Contact Info) Description 03/28/2023 Abstract [facility] MEDICINE [address] [place], [place] [phone] Name, MD Ananda [address] [place] [address] Social History Tobacco Use Types Packs/Day Years [...] Description 11/25/2024 9:15 AM EDT Office Visit [facility] MEDICINE [address] [place] [address] Latrice Ibrahim MD [address] [place] [address] 11/26/2024 9:00 AM EDT Medication Management [facility] MEDICINE [address] [place] [address] PuiaGeeta, PharmD [address] [place] [address] 01/20/2025 9:15 AM EST Office Visit [address] [address] Latrice Ibrahim MD [address] [place] [address] 02/05/2025 9:30 AM EST Office Visit [facility] OPTOMETRY [address] [place] [address] TarNatalie elizabeth, OD 267 [place] [address] documented as of this encounter Visit Diagnoses Not on filedocumented in this encounter Additional Health Concerns Assessment Noted Time PHQ-9 Depression Total Score: 3 10/04/19 23 2:21 PM EDT documented as of this encounter Care Teams Public Health Advisor Relationship Specialty Start Date End Date Name, MD Ananda [address] [place], [place] [phone] PCP - General Family Medicine 06/01/15 Geeta Dove PharmD [address] [place] [address] Pharmacist Internal Medicine 07/21/24 documented as of this encounter
--- OUTSIDE RECORDS SUMMARY | 2024-11-23 09:50 | XMS_ITS | Encounter Summary ---
Author Organization [employer] Address 75 [facility] 7t [place] [address] Care Team Providers Care X Ray Service Technician Name Role Phone Name, Ananda CRANDALL Primary Care Provider Geeta Dove PharmD Unavailable [phone] Reason for Visit * Reason Onset Date Comments Durable Medical Equipment 09/18/2022 Encounter Details Date Type Department Care Team ([facility] st Contact Info) Description 09/18/[address] [facility] [address] [place], [place] [phone] Name, MD Ananda [address] [place] [address] Durable Medical Equipment Social History Tobacco Use [...] 09/21/2022 1:49 PM EDT Incoming call from [facility] regarding message below. [facility] states they have no record of pt ever going to their offices and getting PT. Unsure what next steps should be at this point. * Telephone Encounter - Christy Finn RN - 09/21/2022 1:39 PM EDT TC X1 to [facility] [phone] regarding message below. LVM to return call to nurses. * Telephone Encounter - Lauren Walsh - 09/20/2022 3:14 PM EDT Tc from patient returning call back, regarding message below. Patient states he's going to PT in [facility]. [address] [place] [address] [facility] [place] [address] [place]iel. * Telephone Encounter - Christy [...] Description 11/25/2024 9:15 AM EDT Office Visit [facility] [address] [place] [address] Latrice Ibrahim MD [address] [place] [address] 11/26/2024 9:00 AM EDT Medication Management [facility] [address] [place] [address] Geeta Dove PharmD [address] [place] [address] 01/20/2025 9:15 AM EST Office Visit [facility] MED[facility]INE [address] [place] [address] Latrice Ibrahim MD [address] [place] [address] 02/05/2025 9:30 AM EST Office Visit [facility] OPTOMETRY [address] [place] [address] Natalie Davis, OD 267 [place] [address] documented as of this encounter Visit Diagnoses Not on filedocumented in this encounter Care Teams X Ray Service Technician Relationship Specialty Start Date End Date Name, MD Ananda [address] [place] [address] PCP - General Family Medicine 06/01/15 Geeta Dove, Donte [address] [place] [address] Pharmacist Internal Medicine 07/21/24 documented as of this encounter
--- OUTSIDE RECORDS SUMMARY | 2024-11-23 09:50 | XMS_ITS | Encounter Summary ---
Author Organization [employer] Address [address] [facility] [address] 7t [place] [address] Care Team Providers Care Table Cover Folder Name Role Phone Name, Ananda CRANDALL Primary Care Provider [phone] Geeta Dove PharmD Unavailable [phone] Encounter Details Date Type Department Care Team ([facility] Contact Info) Description 03/28/2022 Orders Only [facility] MED & PEDS [address] [place], [place] [phone] Teresa Moody LPN Social History Tobacco Use [...] Upcoming Encounters Date Type Department Care Team ([facility] Contact Info) Description 11/25/2024 9:15 AM EDT Office Visit [facility] MEDICINE [address] [place], [place] [phone] Latrice Ibrahim MD 230 [place], [place] [phone] 11/26/2024 9:00 AM EDT Medication Management [facility] MEDICINE [address] [place] [address] Geeta Dove PharmD [address] [place] [address] 01/20/2025 9:15 AM EST Office Visit [facility] MEDICINE [address] [place] [address] Latrice Ibrahim MD [address] [place] [address] 02/05/2025 9:30 AM EST Office Visit [facility] OPTOMETRY [address] [place] [address] Natalie Davis, OD [address] [place] [address] documented as of this encounter Visit Diagnoses Not on filedocumented in this encounter Care Teams Table Cover Folder Relationship Specialty Start Date End Date Name, MD Ananda [address] [place] [address] PCP - General Family Medicine 06/01/15 Geeta Dove PharmD [address] [place] [address] 18229 Pharmacist Internal Medicine 07/21/24 documented as of this encounter
--- OUTSIDE RECORDS SUMMARY | 2024-11-23 09:50 | XMS_ITS | Encounter Summary ---
Author Organization [employer] Address 75 [facility] 7t [place] [address] Care Team Providers Care Dielectric Embossing Machine Operator Name Role Phone Name, Ananda CRANDALL Primary Care Provider [phone] Geeta Dove PharmD Unavailable [phone] Reason for Visit * Reason Onset Date Comments Durable Medical Equipment 06/08/2022 Encounter Details Date Type Department Care Team ([facility] st Contact Info) Description 06/08/2022 Telephone [facility] MEDICINE [address] [place], [place] [phone] Name, MD Ananda [address] [place] [address] Durable Medical Equipment Social History Tobacco Use [...] states unable to get a hold of student development coordinator and would like to know if PCP can send script directly to [facility] . Please contact at [phone] * Telephone Encounter - Arleen Ramirez - 06/11/2022 11:28 AM EDT TC to patient and informed him to contact his child care centre manager as a script for a recliner was emailed to her previously. Patient understood and agreed with plan. * Telephone Encounter - Darian Joiner - 06/08/2022 4:29 PM EDT Tc from pt requesting a script for a recliner chair to be send to [facility] please contact pt at [phone] documented in this encounter Plan of Treatment Upcoming Encounters Date Type Department Care Team (Late st Contact Info) Description 11/25/2024 9:15 AM EDT Office Visit [facility] MEDICINE [address] [place] [address] Latrice Ibrahim MD 230 [place] [address] 11/26/2024 9:00 AM EDT Medication Management [facility] MEDICINE [address] [place] [address] Geeta Dove, PharmD [address] [place] [address] 01/20/2025 9:15 AM EST Office Visit [facility] MEDICINE [address] [place] [address] Latrice Ibrahim MD [address] [place] [address] 02/05/2025 9:30 AM EST Office Visit [facility] OPTOMETRY [address] [place] [address] [phone] Natalie Davis, OD [address] [place] [address] documented as of this encounter Visit Diagnoses Not on filedocumented in this encounter Care Teams Dielectric Embossing Machine Operator Relationship Specialty Start Date End Date Name, MD Ananda [address] [place] [address] PCP - General Family Medicine 06/01/15 Geeta Dove, LoretoD [address] [place] [address] Pharmacist Internal Medicine 07/21/24 documented as of this encounter
== END 2024-11-23 09:47 | disposition home or self-care (01) ==
LOC: HO.ENCR 08:32
PROVIDERS: PCP Internal Medicine Geriatric Medicine; Visit Provider Student in an Organized Health Care Education/Training Program
DX: E13.9 Other specified diabetes mellitus without complications (principal)
CPT/HCPCS: 95251; 99214

== ENCOUNTER → 2024-11-23 08:31 | Outpatient (BNVA) | payer OTHER, SELFPAY | PROVIDERS: PCP Internal Medicine Geriatric Medicine; Visit Provider Student in an Organized Health Care Education/Training Program | DX: E10.9 Type 1 diabetes mellitus without complications (principal); Z79.4 Long term (current) use of insulin | CPT/HCPCS: 82947; 99211; 99212 ==

== ENCOUNTER 2024-12-02 07:57 | Outpatient (REF) | payer OTHER, SELFPAY ==
--- OUTSIDE RECORDS SUMMARY | 2024-11-27 09:00 | XMS_ITS | Encounter Summary ---
Author Organization [employer] Address 75 [facility] 7t [place] [address] Care Team Providers Care Letter Of Credit Clerk Name Role Phone Name, Ananda CRANDALL Primary Care Provider [phone] Geeta Dove PharmD Unavailable Reason for Visit * Consultation (Routine) - Pending Review Specialty Diagnoses / Procedures Referred By Contac t Referred To Contact Pharmacy Diagnoses Tobacco dependence Name, MD Ananda [address] [place] [address] Phone: tel: fax: Referral ID Status Reason Start Date Expiration Date Visits Requested Visits Authorized [id number] Pending Review Consult and Treat 06/10/2024 06/10/2025 6 6 Encounter Details Date Type Department Care Team ([facility] Contact Info) Description 11/27/2024 9:00 AM EDT Telemedicine [facility] MEDICINE 230 [place], [place] [phone] Geeta Dove, PharmD [address] [place], [place] [phone] Tobacco dependence (Primary Dx) Social History Tobacco Use Types Packs/Day Years Used Date Smoking Tobacco: Every Day Cigarettes 2.7 14.4 Started: 07/21/2010 Passive Smoke Exposure: Current Smokeless [...] Progress Notes * Geeta Dove PharmD - 11/27/2024 9:00 AM EDT Pharmacy Consult Visit Type: CDTM (referral expires 06/2025) Pharmacist: Geeta Dove PharmD Hubert Rios is a 59 y.o. year old patient here for follow-up visit completed in person. Subjective History: General / Intake Allergies: has no known allergies. Read/Write: Yes, in Polish (but limited per patient report) Recent Hospitalizations: No Social History as reported by patient: Tobacco: Current, see discussion below Alcohol: Denies Caffeine: Current, 1 cup of coffee daily QAM Illicit drugs: Denies; tx with Suboxone via [facility] program x15 years Adherence / patient self-management Takes from vials Denies missed doses or purposeful omission of any medication d/t suspected PAULA Refill history demonstrates adherence. 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 Regardless, he is followed by [facility] endocrinology & is not a candidate for [...] Endorses multiple previous quit attempts, most recent attempt 1 yr ago, longest attempt 1 mo Tried nicotine patches, nicotine lozenges, and nicotine gum to quit previously Patch, gum, lozenge didn't do anything // never used it combo but not interested in trialing d/t poor previous success with these agents. Per chart review, used Chantix in 2019 w/o documentation of PAULA. Current Quit Attempt Discussed in new patient visit 07/21/24: Motivational factors: improved respiratory health, reduced cost Barriers to cessation: fear of failing again Discussed 08/18/24: Reports adherence to Chantix 1 mg twice daily w/o PAULA. Currently smoking ~1 cigarette per day down from 2-3 prior. Discussed routine around that cigarettes use: wakes in AM, prays, makes coffee & goes outside to smoke. Encouraged patient to trial an alternative routine: perhaps make tea or another drink and stay inside to watch TV or read the paper. He is willing to try this. Discussed 09/21/24: Reports adherence to Chantix 1 mg daily w/o PAULA. Currently smoking 1/2 cigarette/day down from 2 cigarettes/day prior. Tobacco use is associated with AM routine & coffee intake. As discussed prior, patient reports trying to avoid coffee or substitute another morning beverage to help to break this routine. Comments COPD sx & home oxygen requirements are improved; he is very pleased with this. Discussed today 11/26/24: Reports ongoing adherence to Chantix 1 mg daily & denies PAULA including dream disturbance, exacerbation of BH symptoms, etc. Continues to smoke 1/2 cigarette per day associated with AM coffee. COPD sx continue to be well controlled & he is very pleased with this. 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, MRI Q6 mo), mood disorder, opioid dependence, COPD, lung nodules Recent labs: Lab Results Component Value Date ALT 28 05/27/2024 AST 38 (H) 05/27/2024 LDLCHOLCAL 75 05/27/2024 TRIG 73 05/27/2024 K 3.6 05/27/2024 NA 146 (H) 05/27/2024 VITB12 386 08/23/2023 MICROALBCREU 11.8 05/29/2024 CREATININE 0.73 05/27/2024 EGFR >60 05/27/2024 HGBA1C 8.0 (A) 10/13/2024 HGBA1C 8.1 (A) 07/15/2024 HGBA1C 8.3 (H) 05/27/2024 Recent blood pressure readings: BP Readings from Last 4 Encounters: 10/16/24 121/81 08/28/24 129/82 08/18/24 (!) 144/80 07/15/24 128/78 Pulse Readings from Last 4 Encounters: 10/16/24 82 08/28/24 93 08/18/24 100 07/15/24 94 Immunizations Due: Not discussed today (televisit). Revisit at next in person follow up; patient had previously been agreeable 08/18 but admin deferred at that time d/t acute illness. Influenza (seasonal) Shingrix series (age > 50 yo) - overdue for dose #2 of 2 to complete series Tetanus (q10 yrs, last 08/2014) - due Preferred Pharmacy: [facility] - [address] 230 [facility] [phone] Assessment/Plan: Smoking Cessation (Stage: Action) Pharmacotherapy: Varenicline 1 mg twice daily for 12-24 total weeks of therapy Goals of therapy per the [facility] Treating Tobacco Use and Dependence Clinical Practice Guideline: Achieve cessation via pharmacologic & non-pharmacologic intervention Plan: Continue Varenicline 1 mg twice daily to support complete tobacco cessation. Patient is aware &agreeable to this plan. Discussed potential PAULA including nausea, insomnia, dream disturbance and rare but serious AE of depression, suicidal ideation. Patient verbalized understanding; will discontinue med & reach out to provider team immediately if PAULA occur. Encouraged patient, again, to mix up his AM routine to eliminate once daily cigarette use (AM). Avoid coffee or substitute with another morning beverage to help break routine & association. He isagreeable to do so. Patient to follow up in CDTM in ~4 wks, as requested, for ongoing support. Total time spent on this encounter was 30 minutes, including time for history review, examination, counseling, care coordination, and documentation. documented in this encounter Plan of Treatment Upcoming Encounters Date Type Department Care Team (Late st Contact Info) Description 12/29/2024 9:00 AM EDT Telemedicine [facility] [address] [place] [address] Geeta Dove PharmD [address] [place] [address] 01/18/2025 3:15 PM EST Office Visit [address] [address] Ananda Spain MD [address] [place] [address] 01/20/2025 9:15 AM EST Office Visit [address] [address] Latrice Ibrahim MD [address] [place] [address] 02/05/2025 9:30 AM EST Office Visit [facility] OPTOMETRY [address] [place] [address] Natalie Davis, OD [address] [place] [address] documented as of this encounter Goals Goal [...] documented as of this encounter Care Teams Letter Of Credit Clerk Relationship Specialty Start Date End Date Name, MD Ananda [address] [place] [address] PCP - General Family Medicine 06/01/15 Geeta Dove PharmD [address] [place] [address] Pharmacist Internal Medicine 07/21/24 documented as of this encounter
--- OUTSIDE RECORDS SUMMARY | 2024-12-02 08:02 | XMS_ITS | Encounter Summary ---
Author Organization [employer] Address [address] [place] [address] 7t [place] [address] Care Team Providers Care Leather Tanner Name Role Phone Name, Ananda CRANDALL Primary Care Provider [phone] Geeta Dove PharmD Unavailable [phone] Encounter Details Date Type Department Care Team (Latest Contact Info) Description 01/09/2021 Abstract [facility] CONVERSIONS Dental, Provider, DDS Social [...] Care Team ( st Contact Info) Description 12/29/2024 9:00 AM EDT Telemedicine [facility] MEDICINE [address] [place] [address] Geeta Dove, PharmD [address] [place] [address] 01/18/2025 3:15 PM EST Office Visit [address] [address] NameAnanda MD [address] [place] [address] 01/20/2025 9:15 AM EST Office Visit [address] [address] Latrice Ibrahim MD 230 [place] [address] 02/05/2025 9:30 AM EST Office Visit [facility] OPTOMETRY 267 [place], [place] [phone] Natalie Davis, OD 267 [place] [address] documented as of this encounter Visit Diagnoses Not on filedocumented in this encounter Care Teams Leather Tanner Relationship Specialty Start Date End Date Name, MD Ananda 230 [place], [place] [phone] PCP - General Family Medicine 06/01/15 Geeta Dove PharmD 230 [place], [place] [phone] Pharmacist Internal Medicine 07/21/24 documented as of this encounter
--- OUTSIDE RECORDS SUMMARY | 2024-12-02 08:02 | XMS_ITS | Encounter Summary ---
Author Organization [employer] Address 75 [facility] 7t [place] [address] Care Team Providers Care Business Operations Consultant Name Role Phone Name, Ananda CRANDALL Primary Care Provider Geeta Dove PharmD Unavailable [phone] Reason for Visit * Reason Onset Date Comments Appointment 09/06/2022 Encounter Details Date Type Department Care Team ([facility] st Contact Info) Description 09/06/2022 Telephone [facility] ADULT DENTAL 230 [place] [address] Kelvin Haque DDS 230 [place], [place] [phone] Appointment Social History Tobacco Use Types Packs/Day [...] Info) Description 12/29/2024 9:00 AM EDT Telemedicine [facility] MEDICINE [address] [place] [address] Geeta Dove PharmD [address] [place] [address] 01/18/2025 3:15 PM EST Office Visit [address] [address] Name, MD nAanda [address] [place] [address] 01/20/2025 9:15 AM EST Office Visit [facility] MEDICINE [address] [place] [address] Latrice Ibrahim MD [address] [place] [address] 02/05/2025 9:30 AM EST Office Visit [facility] OPTOMETRY [address] [place] [address] Natalie Davis, OD 267 [place] [address] documented as of this encounter Visit Diagnoses Not on filedocumented in this encounter Care Teams Business Operations Consultant Relationship Specialty Start Date End Date Name, MD Ananda [address] [place] [address] PCP - General Family Medicine 06/01/15 Geeta Dove PharmD [address] [place] [address] Pharmacist Internal Medicine 07/21/24 documented as of this encounter
--- OUTSIDE RECORDS SUMMARY | 2024-12-02 08:02 | XMS_ITS | Encounter Summary ---
Author Organization [employer] Address [address] [place] [address] 7t [place] [address] Care Team Providers Care Sensory Scientist Name Role Phone Name, Ananda CRANDALL Primary Care Provider [phone] Geeta Dove PharmD Unavailable [phone] Encounter Details Date Type Department Care Team (Latest Contact Info) Description 01/06/2019 Abstract [facility] CONVERSIONS Dental, Provider, DDS Social History Tobacco [...] Info) Description 12/29/2024 9:00 AM EDT Telemedicine [facility] MEDICINE [address] [place] [address] Geeta Dove, PharmD [address] [place] [address] 01/18/2025 3:15 PM EST Office Visit [address] [address] NameAnanda MD [address] [place] [address] 01/20/2025 9:15 AM EST Office Visit [address] [address] Latrice Ibrahim MD 230 [place] [address] 02/05/2025 9:30 AM EST Office Visit [facility] OPTOMETRY 267 [place], [place] [phone] Ryan Natalie, OD 267 [place] [address] documented as of this encounter Visit Diagnoses Not on filedocumented in this encounter Care Teams Sensory Scientist Relationship Specialty Start Date End Date Name, MD Ananda 230 [place], [place] [phone] PCP - General Family Medicine 06/01/15 Geeta Dove PharmD [address] [place] [address] [phone] Pharmacist Internal Medicine 07/21/24 documented as of this encounter
--- OUTSIDE RECORDS SUMMARY | 2024-12-02 08:02 | XMS_ITS | Encounter Summary ---
Author Organization [employer] Address [address] [facility] [address] 7t [place] [address] Care Team Providers Care Foot And Ankle Surgeon Name Role Phone Name, Ananda CRANDALL Primary Care Provider [phone] Geeta Dove PharmD Unavailable [phone] Reason for Visit * Reason Onset Date Comments case in lab 10/03/2022 Encounter Details Date Type Department Care Team ([facility] st Contact Info) Description 10/03/2022 Telephone [facility] ADULT DENTAL [address] [place] [address] Kelvin Haque, LENNY 230 [place] [address] case in lab Social History Tobacco Use [...] - 10/03/2022 2:29 PM EDT Hubert from [employer] called in sttain that the soonest they can get case [...] Info) Description 12/29/2024 9:00 AM EDT Telemedicine [facility] MEDICINE [address] [place] [address] Geeta Dove, LoretoD 230 [place] [address] 01/18/2025 3:15 PM EST Office Visit [facility] MEDICINE 230 [place] [address] Ananda Spain MD 230 [place] [address] 01/20/2025 9:15 AM EST Office Visit [facility] MEDICINE [address] [place] [address] Latrice Ibrahim MD 230 [place] [address] 02/05/2025 9:30 AM EST Office Visit [facility] OPTOMETRY 267 [place] [address] Natalie Davis, OD 267 [place] [address] documented as of this encounter Visit Diagnoses Not on filedocumented in this encounter Additional Health Concerns Assessment Noted Time PHQ-9 Depression Total Score: 3 10/04/19 23 2:21 PM EDT documented as of this encounter Care Teams Foot And Ankle Surgeon Relationship Specialty Start Date End Date Ananda [place] MD 230 [place] [address] PCP - General Family Medicine 06/01/15 Geeta Dove, Donte 230 [place] [address] Pharmacist Internal Medicine 07/21/24 documented as of this encounter
--- OUTSIDE RECORDS SUMMARY | 2024-12-02 08:03 | XMS_ITS | Encounter Summary ---
Author Organization [employer] Address 75 [facility] 7t [place] [address] Care Team Providers Care Leather Shaver Name Role Phone Name, Ananda CRANDALL Primary Care Provider [phone] Geeta Dove PharmD Unavailable [phone] Reason for Visit * Reason Comments Med Refill Encounter Details Date Type Department Care Team ([facility] st Contact Info) Description 08/23/2024 Refill [facility] MEDICINE 230 [place], [place] [phone] Name, MD Ananda 230 [place] [address] Chronic obstructive pulmonary disease, unspecified COPD type [...] Info) Description 12/29/2024 9:00 AM EDT Telemedicine [facility] MEDICINE [address] [place] [address] Geeta Dove, PharmD [address] [place] [address] 01/18/2025 3:15 PM EST Office Visit [facility] MEDICINE [address] [place] [address] Name, MD Ananda [address] [place] [address] 01/20/2025 9:15 AM EST Office Visit [facility] MEDICINE [address] [place] [address] Latrice Ibrahim MD [address] [place] [address] 02/05/2025 9:30 AM EST Office Visit [facility] OPTOMETRY [address] [place] [address] Natalie Davis, OD [address] [place] [address] documented as of this encounter Goals Goal [...] obstructive pulmonary disease, unspecified COPD type (CMS/HCC) (HCC) documented in this encounter Additional Health Concerns Assessment Noted Time PHQ-9 Depression Total Score: 5 07/16/19 25 11:03 AM EDT documented as of this encounter Care Teams Leather Shaver Relationship Specialty Start Date End Date Name, MD Ananda [address] [place] [address] PCP - General Family Medicine 06/01/15 Geeta Dove PharmD [address] [place] [address] Pharmacist Internal Medicine 07/21/24 documented as of this encounter
--- OUTSIDE RECORDS SUMMARY | 2024-12-02 08:03 | XMS_ITS | Encounter Summary ---
Author Organization [email or web address] Address [address] [place] [address] 7t [place] [address] Care Team Providers Care Automotive Electrical Helper Name Role Phone Name, Ananda CRANDALL Primary Care Provider [phone] Geeta Dove PharmD Unavailable [phone] Reason for Visit * Reason Comments Med Refill Encounter Details Date Type Department Care Team (Late Contact Info) Description 04/25/2022 Refill [facility] MEDICINE [address] [place] [address] [phone] Name, MD Ananda [address] [place] [address] Wheezing (Primary Dx) Social History Tobacco Use [...] Department Care Team (Late Contact Info) Description 12/29/2024 9:00 AM EDT Telemedicine [facility] MEDICINE [address] [place] [address] [phone] Geeta Dove PharmD [address] [place] [address] 01/18/2025 3:15 PM EST Office Visit [facility] MEDICINE [address] [place] [address] Name, MD Ananda [address] [place] [address] 01/20/2025 9:15 AM EST Office Visit [facility] MEDICINE [address] [place] [address] Latrice Ibrahim MD [address] [place] [address] 02/05/2025 9:30 AM EST Office Visit [facility] OPTOMETRY [address] [place] [address] Natalie Davis, OD [address] [place] [address] documented as of this encounter Visit Diagnoses Diagnosis Wheezing- Primary documented in this encounter Care Teams Automotive Electrical Helper Relationship Specialty Start Date End Date Name, MD Ananda [address] [place] [address] PCP - General Family Medicine 06/01/15 Geeta Dove PharmD [address] [place] [address] Pharmacist Internal Medicine 07/21/24 documented as of this encounter
--- OUTSIDE RECORDS SUMMARY | 2024-12-02 08:03 | XMS_ITS | Encounter Summary ---
Author Organization [employer] Address [address] [place] [address] 7t [place] [address] Care Team Providers Care Transfer And Pumphouse Operator Name Role Phone Name, Ananda CRANDALL Primary Care Provider [phone] Geeta Dove PharmD Unavailable [phone] Encounter Details Date Type Department Care Team ([facility] Contact Info) Description 08/13/2022 Abstract [facility] MEDICINE [address] [place] [address] [phone] Name, MD Ananda [address] [place] [address] Social History Tobacco Use Types Packs/Day Years [...] ([facility] Contact Info) Description 12/29/2024 9:00 AM EDT Telemedicine [facility] MEDICINE [address] [place] [address] [phone] Puia, Donte Connor [facility] [place] [address] 01/18/2025 3:15 PM EST Office Visit [facility] MEDICINE 230 [facility] [place] [address] Name, MD Ananda [facility] [place] [address] 01/20/2025 9:15 AM EST Office Visit [facility] MEDICINE [address] [place] [address] Latrice Ibrahim MD 230 [facility] [place] [address] 02/05/2025 9:30 AM EST Office Visit [facility] OPTOMETRY 267 [place], [place] [phone] Natalie Davis, OD 267 [place] [address] documented as of this encounter Procedures Procedure Name Priority Date/Time Associated Diagnosis Comments COLONOSCOPY Routine 08/16/2015 1:52 PM EDT documented in this encounter Results * Colonoscopy (08/16/2015 1:52 PM EDT) [facility] Colonoscopy Normal Normal Narrative Gloria Álvarez - 08/16/2015 1:52 PM EDT Recommended 10 year follow up Historical Provider HEALTH MAINTENANCE Final Result documented in this encounter Visit Diagnoses Not on filedocumented in this encounter Care Teams Transfer And Pumphouse Operator Relationship Specialty Start Date End Date Name, MD Ananda [facility] [place] [phone] PCP - General Family Medicine 06/01/15 Geeta Dove PharmD [facility] [place] [address] Pharmacist Internal Medicine 07/21/24 documented as of this encounter
--- OUTSIDE RECORDS SUMMARY | 2024-12-02 08:03 | XMS_ITS | Encounter Summary ---
Author Organization [employer] Address [address] [facility] [address] 7t [place] [address] Care Team Providers Care Seaman Officer Name Role Phone Name, Ananda CRANDALL Primary Care Provider [phone] Geeta Dove PharmD Unavailable [phone] Reason for Visit * Reason Comments Med Refill Encounter Details Date Type Department Care Team ([facility] st Contact Info) Description 09/19/2023 Refill [facility] CHC MED & PEDS [address] [place], [place] [phone] Name, MD Ananda 230 [place] [address] Pain of left leg Social History Tobacco [...] Info) Description 12/29/2024 9:00 AM EDT Telemedicine [facility] MEDICINE [address] [place] [address] Geeta Dove, PharmD [address] [place] [address] 01/18/2025 3:15 PM EST Office Visit [facility] MEDICINE [address] [place] [address] Ananda [place] MD [address] [place] [address] 01/20/2025 9:15 AM EST Office Visit [facility] MEDICINE [address] [place] [address] Latrice Ibrahim MD [address] [place] [address] 02/05/2025 9:30 AM EST Office Visit [facility] OPTOMETRY [address] [place] [address] Natalie Davis, OD 267 [place] [address] documented as of this encounter Visit Diagnoses Diagnosis Pain of left leg documented in this encounter Additional Health Concerns Assessment Noted Time PHQ-9 Depression Total Score: 10 024 9:15 AM EDT documented as of this encounter Care Teams Seaman Officer Relationship Specialty Start Date End Date Name, MD Ananda 230 [place] [address] PCP - General Family Medicine 06/01/15 Geeta Dove PharmD 230 [place] [address] Pharmacist Internal Medicine 07/21/24 documented as of this encounter
--- OUTSIDE RECORDS SUMMARY | 2024-12-02 08:03 | XMS_ITS | Encounter Summary ---
Author Organization [employer] Address 75 [facility] 7t [place] [address] Care Team Providers Care Chair Frame Builder Name Role Phone Name, Ananda CRANDALL Primary Care Provider [phone] Geeta Dove PharmD Unavailable [phone] Reason for Visit * Reason Comments Med Refill Encounter Details Date Type Department Care Team ([facility] st Contact Info) Description 02/28/2023 Refill [facility] 230 [place], [place] [phone] Name, MD Ananda 230 [place] [address] Pain of left leg Social History Tobacco [...] Description 12/29/2024 9:00 AM EDT Telemedicine [facility] MEDICINE [address] [place] [address] Geeta Dove, PharmD [address] [place] [address] 01/18/2025 3:15 PM EST Office Visit [facility] MEDICINE [address] [place] [address] Ananda Spain MD [address] [place] [address] 01/20/2025 9:15 AM EST Office Visit [facility] MEDICINE [address] [place] [address] Latrice Ibrahim MD [address] [place] [address] 02/05/2025 9:30 AM EST Office Visit [facility] OPTOMETRY [address] [place] [address] Natalie Davis OD 267 [place] [address] documented as of this encounter Visit Diagnoses Diagnosis Pain of left leg documented in this encounter Additional Health Concerns Assessment Noted Time PHQ-9 Depression Total Score: 3 10/04/19 23 2:21 PM EDT documented as of this encounter Care Teams Chair Frame Builder Relationship Specialty Start Date End Date Name, MD Ananda 230 [place], [place] [phone] PCP - General Family Medicine 06/01/15 Geeta Dove, Donte 230 [place] [address] Pharmacist Internal Medicine 07/21/24 documented as of this encounter
--- OUTSIDE RECORDS SUMMARY | 2024-12-02 08:03 | XMS_ITS | Encounter Summary ---
Author Organization [employer] Address [address] [place] [address] 7t [place] [address] Care Team Providers Care Management Consulting Name Role Phone Name, Ananda CRANDALL Primary Care Provider [phone] Geeta Dove PharmD Unavailable Reason for Visit * Reason Comments Med Refill Encounter Details Date Type Department Care Team (Late st Contact Info) Description 12/07/2022 Refill [facility] MEDICINE [address] [place] [address] Name, MD Ananda 230 [place] [address] Type 2 diabetes mellitus without complication, unspecified whether longterm insulin use ([facility]); Type 2 diabetes mellitus without complication, with long-term current use of insulin ([facility]) Social History Tobacco [...] Info) Description 12/29/2024 9:00 AM EDT Telemedicine [facility] MEDICINE [address] [place] [address] Geeta Dove PharmD [address] [place] [address] 01/18/2025 3:15 PM EST Office Visit [address] [address] Ananda [place] MD [address] [place] [address] 01/20/2025 9:15 AM EST Office Visit [facility] MEDICINE [address] [place] [address] Latrice Ibrahim MD [address] [place] [address] 02/05/2025 9:30 AM EST Office Visit [facility] OPTOMETRY [address] [place] [address] Natalie Davis OD 267 [place] [address] documented as of this encounter Visit Diagnoses Diagnosis Type 2 diabetes mellitus without complication, unspecified whether longterm insulin use Type 2 diabetes mellitus without complication, with long-term current use of insulin (HCC) documented in this encounter Additional Health Concerns Assessment Noted Time PHQ-9 Depression Total Score: 3 10/04/19 23 2:21 PM EDT documented as of this encounter Care Teams Management Consulting Relationship Specialty Start Date End Date Ananda [place] MD [address] [place] [address] PCP - General Family Medicine 06/01/15 Geeta Dove, Donte [address] [place] [address] Pharmacist Internal Medicine 07/21/24 documented as of this encounter
--- OUTSIDE RECORDS SUMMARY | 2024-12-02 08:03 | XMS_ITS | Encounter Summary ---
Author Organization [email or web address] Address 75 [facility] 7t [place] [address] Care Team Providers Care Engineering Program Manager Name Role Phone Name, Ananda CRANDALL Primary Care Provider [phone] Geeta Dove PharmD Unavailable [phone] Encounter Details Date Type Department Care Team ([facility] Contact Info) Description 03/28/2022 Orders Only [facility] CHC MED & PEDS 505 [place] [address] Teresa Moody LPN Social History Tobacco Use [...] Team ([facility] Contact Info) Description 12/29/2024 9:00 AM EDT Telemedicine [facility] MEDICINE 230 [place], [place] [phone] Geeta Dove, PharmD 230 [place], [place] [phone] 01/18/2025 3:15 PM EST Office Visit [facility] MEDICINE [address] [place] [address] Name, MD Ananda [address] [place] [address] 01/20/2025 9:15 AM EST Office Visit [facility] MEDICINE [address] [place] [address] Latrice Ibrahim MD 230 [place] [address] 02/05/2025 9:30 AM EST Office Visit [facility] OPTOMETRY 267 [place], [place] [phone] Natalie Davis, OD 267 [place] [address] documented as of this encounter Visit Diagnoses Not on filedocumented in this encounter Care Teams Engineering Program Manager Relationship Specialty Start Date End Date Name, MD Ananda [address] [place] [address] PCP - General Family Medicine 06/01/15 Geeta Dove PharmD [address] [place] [address] Pharmacist Internal Medicine 07/21/24 documented as of this encounter
--- OUTSIDE RECORDS SUMMARY | 2024-12-02 08:03 | XMS_ITS | Encounter Summary ---
Author Organization [employer] Address 75 [facility] 7t [place] [address] Care Team Providers Care Smt Machine Operator Name Role Phone Name, Ananda CRANDALL Primary Care Provider [phone] Geeta Dove PharmD Unavailable [phone] Encounter Details Date Type Department Care Team ([facility] Contact Info) Description 03/28/2023 Abstract [facility] MEDICINE 230 [place], [place] [phone] Name, MD Ananda 230 [place] [address] Social History Tobacco Use Types Packs/Day Years [...] Info) Description 12/29/2024 9:00 AM EDT Telemedicine [facility] MEDICINE [address] [place] [address] Geeta Dove PharmD [address] [place] [address] 01/18/2025 3:15 PM EST Office Visit [facility] MEDICINE [address] [place] [address] Ananda Spani MD [address] [place] [address] 01/20/2025 9:15 AM EST Office Visit [address] [address] Latrice Ibrahim MD 230 [place] [address] 02/05/2025 9:30 AM EST Office Visit [facility] OPTOMETRY [address] [place] [address] Natalie Davis, OD 267 [place] [address] documented as of this encounter Visit Diagnoses Not on filedocumented in this encounter Additional Health Concerns Assessment Noted Time PHQ-9 Depression Total Score: 3 10/04/19 23 2:21 PM EDT documented as of this encounter Care Teams Smt Machine Operator Relationship Specialty Start Date End Date Ananda Spain MD 230 [place] [address] PCP - General Family Medicine 06/01/15 Geeta Dove PharmD 230 [place] [address] Pharmacist Internal Medicine 07/21/24 documented as of this encounter
--- OUTSIDE RECORDS SUMMARY | 2024-12-02 08:03 | XMS_ITS | Encounter Summary ---
Author Organization [employer] Address [address] [place] [address] 7[address] [place] [address] Care Team Providers Care Leather Sponger Name Role Phone Name, Ananda CRANDALL Primary Care Provider [phone] Geeta Dove PharmD Unavailable [phone] Reason for Visit * Reason Onset Date Comments Prior Authorization 05/07/2022 Appointment 05/07/2022 Encounter Details Date Type Department Care Team (Late st Contact Info) Description 05/07/2022 Telephone [facility] [address] [place] [address] Kelvin Haque DDS [address] [place], [place] [phone] Prior Authorization; Appointment Social History Tobacco Use [...] 12/29/2024 9:00 AM EDT Telemedicine [facility] MEDICINE [address] [place] [phone] Geeta Dove PharmD [address] [place] [phone] 01/18/2025 3:15 PM EST Office Visit [address] [address] Name, MD Ananda [address] [place] [phone] 01/20/2025 9:15 AM EST Office Visit [address] [address] Latrice Ibrahim MD [address] [place] [address] 02/05/2025 9:30 AM EST Office Visit [facility] [address] [place] [phone] Natalie Davis, OD [address] [place] [address] documented as of this encounter Visit Diagnoses Not on filedocumented in this encounter Care Teams Leather Sponger Relationship Specialty Start Date End Date Name, MD Ananda [address] [place] [phone] PCP - General Family Medicine 06/01/15 Geeta Dove PharmD [address] [place] [phone] Pharmacist Internal Medicine 07/21/24 documented as of this encounter
--- OUTSIDE RECORDS SUMMARY | 2024-12-02 08:03 | XMS_ITS | Encounter Summary ---
Author Organization [employer] Address [address] [facility] [address] [place] [address] Care Team Providers Care Wind Up Operator Name Role Phone Name, Ananda CRANDALL Primary Care Provider [phone] Geeta Dove PharmD Unavailable [phone] Reason for Visit * Reason Comments Med Refill Encounter Details Date Type Department Care Team ([facility] st Contact Info) Description 03/08/[address] [facility] [address] [place], [place] [phone] Name, MD Ananda [address] [place] [address] Chronic obstructive pulmonary disease, unspecified COPD type [...] Upcoming Encounters Date Type Department Care Team ([facility] st Contact Info) Description 12/29/2024 9:[address] [facility] [address] [place] [phone] Geeta Dove, PharmD [address] [place] [phone] 01/18/2025 3:15 PM EST Office [address] [facility] [address] [place] [phone] Ananda Spain MD [address] [place] [address] 01/20/2025 9:15 AM EST Office Visit [facility] [address] [place] [phone] Latrice Ibrahim MD [address] [place] [address] 02/05/2025 9:30 AM EST Office [address] [facility] [address] [place] [address] Natalie Davis, OD [address] [place] [address] documented as of this encounter Visit Diagnoses Diagnosis Chronic obstructive pulmonary disease, unspecified COPD type (CMS/HCC) (HCC) documented in this encounter Additional Health Concerns Assessment Noted Time PHQ-9 Depression Total Score: 10 024 9:15 AM EDT documented as of this encounter Care Teams Wind Up Operator Relationship Specialty Start Date End Date Name, MD Ananda [address] [place] [address] PCP - General Family Medicine 06/01/15 Geeta Dove PharmD [address] [place] [address] Pharmacist Internal Medicine 07/21/24 documented as of this encounter
--- OUTSIDE RECORDS SUMMARY | 2024-12-02 08:03 | XMS_ITS | Encounter Summary ---
Author Organization [email or web address] Address [address] [facility] [address] [place] [address] Care Team Providers Care Head Miller Name Role Phone Name, Ananda CRANDALL Primary Care Provider [phone] Geeta Dove PharmD Unavailable [phone] Reason for Visit * Reason Comments Med Refill Encounter Details Date Type Department Care Team ([facility] Contact Info) Description 06/07/2022 Refill [facility] [address] [place] [address] [phone] Sebastián Graves MD [address] [place] [address] Pain of left leg Social History Tobacco [...] ([facility] Contact Info) Description 12/29/2024 9:00 AM EDT Telemedicine [facility] [address] [place] [phone] Geeta Dove PharmD [address] [place] [phone] 01/18/2025 3:15 PM EST Office Visit [facility] [address] [place] [phone] Name, MD Ananda [address] [place] [phone] 01/20/2025 9:15 AM EST Office Visit [facility] [address] [place] [phone] Latrice Ibrahim MD [address] [place] [phone] 02/05/2025 9:30 AM EST Office Visit [facility] [address] [place] [phone] Natalie Davis OD [address] [place] [phone] documented as of this encounter Visit Diagnoses Diagnosis Pain of left leg documented in this encounter Care Teams Head Miller Relationship Specialty Start Date End Date Name, MD Ananda [address] [place] [phone] PCP - General Family Medicine 06/01/15 Geeta Dove, LoretoD [address] [place] [phone] Pharmacist Internal Medicine 07/21/24 documented as of this encounter
--- OUTSIDE RECORDS SUMMARY | 2024-12-02 08:03 | XMS_ITS | Clinical Summary ---
Author Organization [employer] Address [address] [place] [address] 7[address] [place] [address] Care Team Providers Care Personnel Training Officer Name Role Phone Name, Ananda CRANDALL Primary Care Provider [phone] Geeta Dove PharmD Unavailable [phone] Allergies No known active allergies Medications ramelteon (Rozerem) 8 MG tablet Take 1 tablet by mouth at bed time. Active Misc. Devices (Pulse Oximeter For Finger) miscIndications :COPD exacerbation (CMS/HCC) ([facility]) 1 each 2 times daily. Call [facility] if consistently < 95% 1 each 023 Active clonazePAM (KlonoPIN) 1 MG tablet Take 1 mg by mouth 2 times daily. 023 Active Lancets (OneTouch Delica Plus Yporcv09H) misc TEST BLOOD SUGAR THREE TIMES DAILY [...] penIndications: Diabetes mellitus type 2 in nonobese ([facility]) INJECT SUBCUTANEOUSLY THREE TIMES DAILY [...] obstructive pulmonary disease, unspecified COPD type (CMS/HCC) ([facility]) INHALE 2 PUFFS BY MOUTH [...] complication, unspecified whether skilled nursing insulin use USE DIRECTED FOUR TIMES DAILY 100 each [...] hyperglycemia, with long-term current use of insulin ([facility]) TAKE 1 TABLET BY MOUTH [...] hyperglycemia, with long-term current use of insulin ([facility]) USE TO TEST BLOOD SUGAR THREE TIMES DAILY 100 strip 3 Active Alcohol Swabs (Alcohol Prep) 70 % pads USE FOUR TIMES DAILY DIRECTED 100 each 11 025 Active albuterol (2.5 MG/3ML) 0.083% nebulizer solution Take 2.5 mg by nebulization every 6 (six) hours if needed for wheezing. 025 Active Suboxone 8-2 MG SL filmIndications :Uncomplicated opioid dependence (CMS/HCC) ([facility]) Place 3 Film under the tongue Once per day. 84 Film 1 025 2024 Active Suboxone 8-2 MG SL filmIndications :Uncomplicated opioid dependence (CMS/HCC) ([facility]) Place 3 Film under the tongue Once per day for 28 days. 84 Film 025 2024 Discontinued(R eorder (will not trigger notification to Pharmacy)) Active Problems Problem Noted Date Diagnosed Date COPD exacerbation (CMS/HCC) 10/16/2024 Assessment & Plan (10/16/2024 11:04 AM EDT): Patient has pulmonology appointment on 10/21/2024 at 10 am at [facility] pulmonology [place], [address] [facility] [address], I advise not to miss this appointment I will prescribe for patient levofloxacin 500mg for 5 days and prednisone 40mg for 5 days c/w albuterol inhaler/nebs PRN Chronic obstructive pulmonar y disease with acute exacerbation (CMS/HCC) 08/28/2024 Assessment & Plan (08/28/2024 3:56 PM EDT): I will prescribe for patient levofloxacin 500 mg once daily for 5 days and 40 mg daily for 5 days ED precautions were reviewed with patient Partially edentulous mandible 11/14/2022 BPH (benign prostatic hyperplasia) 10/01/2022 HLD (hyperlipidemia) 10/01/2022 HTN (hypertension) 10/01/2022 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 [address] [address] [address] Scan Report Signed Patient: Hubert iRos MR#: [id number] : 1965 Acct:[id number] Age/Sex: 59 / M ADM Date: 07/02/24 Loc: HO.CT Attending Dr: Chanel Thomas NP Ordering Physician: Chanel Thomas NP Date of Service: 07/02/24 Procedure(s): CT chest wo IV con Accession Number(s): [id number] cc: Grabiel,Ananda CRANDALL; Chanel Thomas NP Report Number: [id number]: Total DLP = 110.00 mGy-cm EXAMINATION: CT [...] 12/19/2011 Opioid dependence 08/15/2011 Assessment & Plan (11/24/2024 9:47 PM EDT): - in maintenance stage, long-term [...] support and recovery effort Assessment & Plan (10/28/2024 5:32 AM EDT): [...] Encounters Date Type Department Care Team Description 11/27/2024 9:00 AM EDT Telemedicine [address] [address] Geeta Dove, LoretoD Tobacco dependence (Primary Dx) 11/25/2024 9:15 AM EDT Office Visit [address] [address] Latrice Ibrahim MD Uncomplicated opioid dependence (CMS/HCC) (Primary Dx) 11/25/2024 Travel 11/24/[address] [address] Ananda Spain MD 11/23/2024 Orders Only GENERIC EXTERNAL DATA DEPARTMENT Provider, Generic External Data 11/18/[address] [address] Sonali Stubbs, COREY Uncomplicated opioid dependence (CMS/HCC) 11/06/[address] [address] Ananda Spain MD CHARTPREP 11/05/2024 Orders Only [facility] External Provider, [facility] 10/28/2024 9:00 AM EDT Office Visit [address] [address] Latrice Ibrahim MD Uncomplicated opioid dependence (CMS/HCC) (Primary Dx) 10/28/2024 Travel 10/27/[address] [address] Latrice Ibrahim MD CHART PREP 10/21/2024 Refill [facility] [address] [place] [address] Sonali Stubbs RN Uncomplicated opioid dependence ([facility]/HCC) 10/16/2024 11:00 AM EDT Office Visit [facility] [address] [place] [address] So Lebron MD COPD exacerbation ([facility]) (Primary Dx); Cough in adult patient 10/16/2024 Travel 10/13/2024 Orders Only GENERIC EXTERNAL DATA DEPARTMENT Provider, Generic External Data 10/09/2024 Orders Only GENERIC EXTERNAL DATA DEPARTMENT Provider, Generic External Data 09/30/2024 Orders Only [facility] External Provider, [facility] 09/29/2024 9:00 AM [place] [address] Maya Jolly RN Opioid type dependence, continuous ([facility]) 09/29/2024 Travel 09/23/2024 Refill [facility] [address] [place] [address] Sonali Stubbs RN Uncomplicated opioid dependence ([facility]/HCC) 09/21/2024 Telephone [facility] [address] [place] [address] Ananda Spain MD Letter Request (I called the patient, regarding his request for a letter. He stated that a lot of dust enters the apartment where he is currently living, and it is making his lung condition worse. He stated that housing will allow him to move to a different location, if he provides a letter from his PCP.) 09/21/2024 Travel 09/21/2024 Telephone [facility] [address] [place] [address] Geeta Dove, LoretoD 09/02/2024 9:00 AM EDT Clinical Support [address] [address] Melvina Macias RN Opioid type dependence, continuous ([facility]) (Primary Dx) 09/02/2024 Travel from Last 3 Months Immunizations Immunization [...] Info) Description 12/29/2024 9:00 AM EDT Telemedicine [address] [address] Geeta Dove, PharmD [address] [place] [address] 01/18/2025 3:15 PM EST Office Visit [address] [address] Name, MD Ananda [address] [place] [address] 01/20/2025 9:15 AM EST Office Visit [address] [address] Latrice Ibrahim MD [address] [place], [place] [phone] 02/05/2025 9:30 AM EST Office Visit [facility] [address] [place], [place] [phone] Natalie Davis, OD [address] [place], [place] [phone] Health Maintenance Due Date Last Done Comments [...] - Td or Tdap) 08/14/2024 08/14/2014, 05/25/2011 COVID-19 Vaccine (3 - 2024- season) 2024 02/10/2021, 05/18/2020 Influenza Vaccine (#1) 2024 , 11/20/2023, 01/21/2023, Additional history exists Diabetes: Hemoglobin A1C 01/13/2025 025, 07/15/2024, 05/27/2024, Additional history exists Lipid Panel 05/27/2025 05/27/2024, 05/02, 02/13/2022, Additional history exists Diabetes: Urine Protein Screening 05/29/2025 05/29/2024, 05/14/2023, 02/13/2022, Additional history exists Depression Screening 07/15/2025 07/15/2024, 07/16/19 Disability Screening 07/15/2025 07/15/2024 SDOH Screening 07/15/2025 07/15/2024 Tobacco Screening 10/16/2025 10/16/2024 Eye Exam 08/06/2026 08/06/2024, 07/2024, 08/06/2024, Additional history exists RSV Patients [...] WHOLE BLOOD Routine 10/13/2024 8:50 AM EDT HEMOGLOBIN A1C Routine 10/13/2024 IMMUNOGLOBULIN E Routine 10/09/2024 8:23 AM EDT [...] Whole Blood 91 60 - 115 mg/dL [facility] Comment:METER #: [id number] Testing performed in the Endocrinology Department [address] , [address], [facility]. 11/23/2024 9:21 AM EDT 11/23/2024 9:24 AM EDT us Generic External Data Provider LAB BLOOD ORDERAB LES Final Result Performing Organization Address City/State/[facility] Co de Phone Number [facility] [address] [place] [phone] * US Renal Complete (11/05/2024 12:39 PM EDT) Anatomical Region Laterality Modality Kidney Ultrasound 11/05/2024 12:3 9 PM EDT Narrative 11/05/2024 3:49 PM EDT [address] [address] Ultrasound Report Signed Patient: Hubert Rios MR#: [id number] 0650 : 1965 Acct:[id number] Age/Sex: 59 / M ADM Date: 11/05/24 Loc: HO.US Attending Dr: Hipolito Mcdaniel MD Ordering Physician: Hipolito Mcdaniel MD Date of Service: 11/05/24 Procedure(s): US renal BI Accession Number(s): [id number] cc: Hipolito Mcdaniel MD; Name,Ananda CRANDALL Reason [...] 11/05/24 1546 DD/ 1239 TD/TT: 11/05/24 1250 Human Factors Specialist: ZABRINA Procedure Note Donotuseinterpreter, Image - 11/05/2024 [place] [address] Ultrasound Report Signed Patient: Hubert Rios [facility]#: [id number] : 1965Acct:[id number] Age/Sex: 59 / MADM Date: 11/05/24 Loc: HO.US Attending Dr: Hipolito Mcdaniel MD Ordering Physician: Hipolito Mcdaniel MD Date of Service: 11/05/24 Procedure(s): US renal BI Accession Number(s): [id number] cc: Hipolito Mcdaniel MD; Name,Ananda CRANDALL Reason [...] 11/05/24 1546 DD/ 1239 TD/TT: 11/05/24 1250 Human Factors Specialist: ZABRINA [facility] External Provider IMG US PROCEDURES Final [...] procedure / Unknown 10/28/2024 9:10 AM EDT Latrice Ibrahim MD POINT OF CARE TEST ENTER/EDIT OR DERABLES Final Result * Influenza B (ID NOW Rapid Molecular) (10/16/2024 10:18 AM EDT) [facility] Influenza B Negative Negative, Indeterminate [facility] Swab 10/16/2024 10:1 8 AM EDT So Osman MD POINT OF CARE TEST EN TER/EDIT ORDERABLES Final Result Performing Organization Address [facility]/ZIP Co de Phone Number [facility] [address] [place] [phone] * Influenza A (ID NOW Rapid Molecular) (10/16/2024 10:18 AM EDT) [facility] Influenza A Negative Negative, Indeterminate [facility] Swab 10/16/2024 10:1 8 AM EDT So Osman MD POINT OF CARE TEST EN TER/EDIT ORDERABLES Final Result Performing Organization Address [facility] Co de Phone Number [facility] [address] [place] [phone] * POCT Rapid COVID Ag (10/16/2024 10:18 AM EDT) [facility] Rapid COVID Ag Negative Swab 10/16/2024 10:1 8 AM EDT So Osman MD POINT OF CARE TEST EN TER/EDIT ORDERABLES Final Result * (ABNORMAL) Hemoglobin A1c (10/13/2024) [facility] Hemoglobin A1C 8.0(A) 4.0 - 5.7 % Blood Venous blood specimen / Unknown us Historical Provider LAB BLOOD ORDERABLES Anna de león Result * (ABNORMAL) Respiratory Allergy Profile Region I (10/09/2024 8:23 AM EDT) Mouse Urine Proteins (E72) IgE <0.10 kU/L [facility] Class 0 [facility] Cockroach (I6) IgE 0.17(A) kU/L [facility] Class 0/1 [facility] Dermatophagoides farinae (D2) IgE 0.99(A) kU/L [facility] Class 2 [facility] Cat Dander (E1) IgE <0.10 kU/L [facility] Class 0 [facility] Comment:THIS TEST WAS PERFOR MED AT:[employer] [address] [phone] GARCIA MD Dog Dander (E5) IgE <0.10 kU/L [facility] Class 0 [facility] Comment:THIS TEST WAS PERFOR MED AT:[employer] [address] [phone] GARCIA MD [place] (G6) IgE <0.10 kU/L [facility] Class 0 [facility] Cladosporium herbarum (M2) IgE <0.10 kU/L [facility] Class 0 [facility] Aspergillus Fumigatis (M3) IgE <0.10 kU/L [facility] Class 0 [facility] Alternaria alternata (M6) IgE <0.10 kU/L [facility] Class 0 [facility] Comment:THIS TEST WAS PERFOR MED AT:[employer] [address] [phone] GARCIA MD [place] (t6) IgE <0.10 kU/L [facility] Class 0 [facility] [place] (T7) IgE <0.10 kU/L [facility] Class 0 [facility] Muir [place] (T10) IgE <0.10 kU/L [facility] Class 0 [facility] [employer] (T11) IgE <0.10 kU/L [facility] Class 0 [facility] [place] (T14) IgE <0.10 kU/L [facility] Class 0 [facility] [place] (t15) IgE <0.10 kU/L [facility] Class 0 [facility] [place] (T70) IgE <0.10 kU/L [facility] Class 0 [facility] Common Ragweed (Short) (W1) IgE 0.12(A) kU/L [facility] Class 0/1 [facility] Mugwort (w6) IgE <0.10 kU/L [facility] Class 0 [facility] Dermatophagoides pteronyssinus (D1) IgE 0.98(A) kU/L [facility] Class 2 [facility] B[place] Grass (g2) IgE <0.10 kU/L [facility] Class 0 [facility] Penicillium Notatum (M1) IgE <0.10 kU/L [facility] Class 0 [facility] Birch (T3) IgE <0.10 kU/L [facility] Class 0 [facility] Elm (t8) IgE <0.10 kU/L [facility] Class 0 [facility] Maple ([place]) (T1) IgE <0.10 kU/L [facility] Class 0 [facility] Rough Pigweed (W14) IgE <0.10 kU/L [facility] Class 0 [facility] Sheep Sells (W18) IgE <0.10 kU/L [facility] Class 0 [facility] Allergen Comment See Below [facility] Comment: Specific Level of AllergenIGE Class [...] and its analyticalperformance characteristics have been determined by[employer]. It has not been cleared or approvedby the U.S. Food and Drug Administration. This assayhas been validated pursuant to the CLIA regulationsand is used for clinical purposes.THIS TEST WAS PERFORMED AT:[employer] [place] [phone] GARCIA MD 10/09/2024 8:23 AM EDT 10/09/2024 8:26 AM EDT us Generic External Data Provider LAB BLOOD ORDERAB LES Final Result [facility] [address] [place] [phone] * (ABNORMAL) CBC auto differential (10/09/2024 8:23 AM EDT) White Blood Count 5.9 4.8 - 10.8 X10*3/uL [facility] Red Blood Count 4.56(L) 4.60 - 5.80 X10*6/uL [facility] Hemoglobin 13.5(L) 14.0 - 18.0 g/dl [facility] Hematocrit 40.9(L) 42.0 - 52.0 % [facility] Mean Corpuscular Volume 89.7 80.0 - 98.0 fL [facility] Mean Corpuscular Hemoglobin 29.6 27.0 - 33.0 pg [facility] Mean Corpuscular HGB Conc 33.0 31.0 - 36.0 g/dl [facility] Red Cell Distribution Width 13.3 11.0 - 16.0 % [facility] Platelet Count 237 160 - 400 X10*3/uL [facility] Mean Platelet Volume 10.6 9.4 - 12.4 fL [facility] Neutrophils Percent Auto 43.2(L) 45 - 73 % [facility] Imm Gran Pct Auto 0.3 0.0 - 0.4 % [facility] Lymphocytes Percent Auto 32.8 20 - 40 % [facility] Monocytes Percent Auto 12.5(H) 2 - 11 % [facility] Eosinophils Percent Auto 10.0(H) 0 - 4 % [facility] Basophils Percent Auto 1.2 0 - 2 % [facility] NRBC Pct Auto 0.0 0.0 - 0.2 /100WBC [facility] Neutrophils Absolute Auto 2.6 2.0 - 8.3 x10*3/uL [facility] Imm Gran Abs Auto 0.02 0.00 - 0.03 X10*3/uL [facility] Lymphocytes Absolute Auto 1.9 1.2 - 4.9 X10*3/uL [facility] Monocytes Absolute Auto 0.7 0.1 - 1.2 X10*3/uL [facility] Eosinophils Absolute Auto 0.6(H) 0.0 - 0.4 X10*3/uL [facility] Basophils Absolute Auto 0.1 0.0 - 0.2 X10*3/uL [facility] NRBC Abs Auto 0.000 0.0 - 0.012 X10*3/uL [facility] 10/09/2024 8:23 AM EDT 10/09/2024 8:26 AM EDT us Generic External Data Provider LAB BLOOD ORDERAB LES Final Result [facility] [address] [place] [phone] * (ABNORMAL) Immunoglobulin E (10/09/2024 8:23 AM EDT) Immunoglobulin E 358(A) <BW=884 kU/L [facility] 10/09/2024 8:23 AM EDT 10/09/2024 8:26 AM EDT us Generic External Data Provider LAB BLOOD ORDERAB LES Final Result [facility] [address] [place] [phone] * US JANAE COMPLETE (09/30/2024 1:41 PM EDT) Anatomical Region Laterality Modality Abdomen Ultrasound 09/30/2024 1:41 PM EDT Narrative 09/30/2024 1:42 PM EDT [address] [address] Ultrasound Report Signed Patient: Hubert Rios MR#: [id number] 0650 : 1965 Acct:[id number] Age/Sex: 59 / M ADM Date: 09/30/24 Loc: HO.US Attending Dr: Nichole Monteiro NP Ordering Physician: Nichole Monteiro NP Date of Service: 09/30/24 Procedure(s): US JANAE complete Accession Number(s): [id number] cc: Ananda Spain MD; Nichole Monteiro NP [...] 09/30/24 1342 DD/ 1341 TD/TT: 09/30/24 1341 Human Factors Specialist: Procedure Note Donjoseinterpreter, Image - 09/30/[address] [address] Ultrasound Report Signed Patient: Hubert Rios MMR#: [id number] 0650 : 1965Acct:[id number] Age/Sex: 59 / MADM Date: 09/30/24 Loc: .US Attending Dr: Nichole Monteiro NP Ordering Physician: Nichole Monteiro NP Date of Service: 09/30/24 Procedure(s): US JANAE complete Accession Number(s): [id number] cc: Ananda Spain MD; Nichole Monteiro NP [...] 09/30/24 1342 DD/ 1341 TD/TT: 09/30/24 1341 Human Factors Specialist: us [facility] External Provider IMG US PROCEDURES Final Result * Albumin, Random Urine W/Creatinine (05/29/2024 8:43 AM EDT) Creatinine, Urine 126.68 mg/dL [facility] Microalbumin Urine 15.0 mg/L [facility] Microalbum Creatinine Ratio Ur 11.8 <30 ug/mg cr [facility] Comment:Albumin/Creatinine R atio Reference Ranges: Normal: < 30 ug/mg creatinine Microalbuminuria: 30 - 300 ug/mg creatinineClinical Albuminuria: > 300 ug/mg creatinine 05/29/2024 8:43 AM EDT 05/29/2024 9:05 AM EDT us Generic External Data Provider LAB URINE ORDERAB LES Final Result Performing Organization Address City/[facility]/ZIP Co de Phone Number [facility] [address] [place] [phone] * (ABNORMAL) Lipid Panel, Standard (05/27/2024 8:40 AM EDT) Triglycerides 73 <150 mg/dL [facility] Comment:Desirable Triglyceri de: less than 150 mg/dLBorderline High Triglyceride 150-199 mg/dLHigh Triglyceride: 200-499 mg/dLVery High Triglyceride: greater than or equal to 5OO mg/dL Cholesterol 221(H) <200 mg/dL [facility] Comment:Desirable Cholestero l: less than 200 mg/dLBorderline High Cholesterol: 200-239 mg/dLHigh Cholesterol: greater than 239 mg/dL LDL Cholesterol Calculated 75 <100 mg/dL [facility] Comment:Desirable LDL: less than 100 mg/dLNear Optimal/Above Optimal LDL: 110- 129 mg/dLBorderline High LDL: 130-159 mg/dLHigh LDL: 160-189 mg/dLVery High LDL: greater than or equal to 190 mg/dL HDL Cholesterol 132 >40 mg/dL [facility] Comment:Desirable HDL: great er than 40 mg/dL Note: This HDL assay may give artificially low results in patients with liver disease. Blood Venous blood specimen / Unknown 05/27/2024 8:40 AM EDT 05/27/2024 8:40 AM EDT us Ananda Name LAB BLOOD ORDERABLES Final Resul t Performing Organization Address City/[facility]/ZIP Co de Phone Number [facility] [address] [place] [phone] * (ABNORMAL) Hepatitis C Antibody with Reflex to HCV, RNA, Quantitative, Real- Time PCR (03/29/2023 9:12 AM EST) Hepatitis C Antibody Reactive( A) Nonreactive [facility] Comment:Presumptive evidence of antibodies to HCV. 03/29/2023 9:12 AM EST 03/29/2023 11:11 AM EST Latrice Ibrahim MD LAB BLOOD ORDERABLES Final Resul t Performing Organization Address [facility] Co de Phone Number [facility] [address] [place] [phone] * HIV-1/2 Antigen and Antibodies, Fourth Generation, with Reflexes (03/29/2023 9:12 AM EST) HIV AB/AG Nonreactive Nonreactive [facility] Comment:HIV-1 p24 Ag and/or HIV-1/HIV-2 Ab not detected.A test result that is nonreactive does not exclude thepossibility of exposure to or infection with HIV-1 and/orHIV-2. Nonreactive results in this assay for individualswith prior exposure to HIV-1 and/or HIV-2 may be due toantigen and antibody levels that are below the limit ofdetection of this assay.The [employer] HIV Ag/Ab Combo assay result andsupplemental assay results should be interpreted inconjunction with the patient's clinical presentation,history and other laboratory results. If the results areinconsistent with clinical evidence, additional testing issuggested to confirm the result. 03/29/2023 9:12 AM EST 03/29/2023 11:11 AM EST Latrice Ibrahim MD LAB BLOOD ORDERABLES Final Resul t Performing Organization Address City/[facility]/ZIP Co de Phone Number [facility] [address] [place] [phone] * Hm Colonoscopy (08/16/2015 1:52 PM EDT) Colonoscopy Normal Normal Narrative Gloria Álvarez - 08/16/2015 1:52 PM EDT Recommended 10 year follow up Damari Zhang MD HEALTH MAINTENANCE Final Result from Last 3 Months or Most Recently Relevant to Health Maintenance Insurance [facility] ONE CARE < 65 Care Teams Personnel Training Officer Relationship Specialty Start Date End Date Name, MD Ananda [address] [place] [address] [phone] PCP - General Family Medicine 06/01/15 Geeta Dove, LoretoD [address] [place] [address] [place] [phone] Pharmacist Internal Medicine 07/21/24
--- OUTSIDE RECORDS SUMMARY | 2024-12-02 08:03 | XMS_ITS | Encounter Summary ---
Author Organization [employer] Address 75 [facility] 7t [place] [address] Care Team Providers Care Showcase Maker Name Role Phone Name, Ananda CRANDALL Primary Care Provider [phone] Geeta Dove PharmD Unavailable [phone] Reason for Visit * Reason Onset Date Comments Durable Medical Equipment 09/18/2022 Encounter Details Date Type Department Care Team ([facility] st Contact Info) Description 09/18/2022 Telephone [facility] [address] [place], [place] [phone] Name, MD Ananda 230 [place] [address] Durable Medical Equipment Social History Tobacco Use [...] 09/21/2022 1:49 PM EDT Incoming call from [facility] PT regarding message below. [facility] PT states they have no record of pt ever going to their offices and getting PT. Unsure what next steps should be at this point. * Telephone Encounter - Christy Finn RN - 09/21/2022 1:39 PM EDT TC X1 to [facility] Core PT [phone] regarding message below. LVM to return call to nurses. * Telephone Encounter - Lauren Walsh - 09/20/2022 3:14 PM EDT Tc from patient returning call back, regarding message below. Patient states he's going to PT in [facility]. [address] [place] [address] [facility] [place] [address] Dr. Mcdaniel. * Telephone Encounter - Christy [...] Info) Description 12/29/2024 9:00 AM EDT Telemedicine [facility] [address] [place] [address] Geeta Dove PharmD [address] [place] [address] 01/18/2025 3:15 PM EST Office Visit [facility] [address] [place] [address] Name, MD Ananda [address] [place] [address] 99[address] 01/20/2025 9:15 AM EST Office Visit [facility] [address] [place] [address] 91875 Latrice Ibrahim MD [address] [place] [address] 87162 02/05/2025 9:30 AM EST Office Visit [facility] [address] [place] [address] Natalie Davis, OD [address] [place] [address] documented as of this encounter Visit Diagnoses Not on filedocumented in this encounter Care Teams Showcase Maker Relationship Specialty Start Date End Date Name, MD Ananda [address] [place] [address] PCP - General Family Medicine 06/01/15 Geeta Dove PharmD [address] [place] [address]51 Pharmacist Internal Medicine 07/21/24 documented as of this encounter
--- OUTSIDE RECORDS SUMMARY | 2024-12-02 08:03 | XMS_ITS | Encounter Summary ---
Author Organization [employer] Address 75 [facility] 7t [place] [address] Care Team Providers Care Learning Services Coordinator Name Role Phone Name, Ananda CRANDALL Primary Care Provider [phone] Geeta Dove PharmD Unavailable Reason for Visit * Reason Onset Date Comments Durable Medical Equipment 06/08/2022 Encounter Details Date Type Department Care Team ([facility] st Contact Info) Description 06/08/2022 Telephone [facility] 230 [place], [place] [phone] Name, MD Ananda 230 [place] [address] Durable Medical Equipment Social History Tobacco Use [...] states unable to get a hold of yoga coordinator and would like to know if PCP can send script directly to L&C . Please contact at [phone] * Telephone Encounter - Arleen James - 06/11/2022 11:28 AM EDT TC to patient and informed him to contact his intensive care unit nurse as a script for a recliner was emailed to her previously. Patient understood and agreed with plan. * Telephone Encounter - Darian Joiner - 06/08/2022 4:29 PM EDT Tc from pt requesting a script for a recliner chair to be send to L&C please contact pt at [phone] documented in this encounter Plan of Treatment Upcoming Encounters Date Type Department Care Team (Late st Contact Info) Description 12/29/2024 9:00 AM EDT Telemedicine [facility] [address] [place] [address] 9[address] Geeta Dove, LoretoD 230 [place] [address] 01/18/2025 3:15 PM EST Office Visit [facility] [address] [place] [address] 22147 Ananda Spain MD [address] [place] [address] 01/20/2025 9:15 AM EST Office Visit [facility] [address] [place] [address] 49103 Latrice Ibrahim MD [address] [place] [address] 613[address] 02/05/2025 9:30 AM EST Office Visit [facility] [address] [place] [address] 17007 Natalie Davis, OD [address] [place] [address] documented as of this encounter Visit Diagnoses Not on filedocumented in this encounter Care Teams Learning Services Coordinator Relationship Specialty Start Date End Date Name, MD Ananda [address] [place] [address] PCP - General Family Medicine 06/01/15 Geeta Dove, Donte [address] [place] [address] Pharmacist Internal Medicine 07/21/24 documented as of this encounter
--- OUTSIDE RECORDS SUMMARY | 2024-12-02 08:03 | XMS_ITS | Encounter Summary ---
Author Organization [employer] Address [address] [place] [address] 7t [place] [address] Care Team Providers Care Stretcher Leveler Operator Name Role Phone Name, Ananda CRANDALL Primary Care Provider [phone] Geeta Dove PharmD Unavailable [phone] Encounter Details Date Type Department Care Team ([facility] Contact Info) Description 02/14/2022 Abstract [facility] [address] [place] [address] [phone] Provider, MD Damari Social History Tobacco Use [...] Upcoming Encounters Date Type Department Care Team ([facility] Contact Info) Description 12/29/2024 9:00 AM EDT Telemedicine [facility] [address] [place] [address] [phone] Geeta Dove, PharmD 230 [place] [address] 01/18/2025 3:15 PM EST Office Visit [facility] [address] [place] [address] Name, MD Ananda [address] [place] [address] 69[address] 01/20/2025 9:15 AM EST Office Visit [facility] [address] [place] [address] 389[address] Latrice Ibrhaim MD 230 [place] [address] 02/05/2025 9:30 AM EST Office Visit [facility] 267 [place], [place] [phone] Natalie Davis, OD 267 [place] [address] documented as of this encounter Visit Diagnoses Not on filedocumented in this encounter Care Teams Stretcher Leveler Operator Relationship Specialty Start Date End Date Name, MD Ananda [address] [place] [address]234 PCP - General Family Medicine 06/01/15 Geeta Dove PharmD [address] [place] [address] Pharmacist Internal Medicine 07/21/24 documented as of this encounter
--- OUTSIDE RECORDS SUMMARY | 2024-12-02 08:03 | XMS_ITS | Encounter Summary ---
Author Organization [employer] Address 75 [facility] 7t [place] [address] Care Team Providers Care Rotary Slicing Machine Operator Name Role Phone Ananda Spain MD Primary Care Provider [phone] Geeta Dove PharmD Unavailable [phone] Reason for Visit * Reason Onset Date Comments ER Follow-up 09/26/2022 Encounter Details Date Type Department Care Team ([facility] st Contact Info) Description 09/26/2022 Telephone [facility] 230 [place], [place] [phone] Name, MD Ananda 230 [place] [address] ER Follow-up Social History Tobacco Use Types [...] 10:24 AM EDT T/c to pt. Through [employer] id - [id number] for below message, pt. 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 [facility] hours are reviewed. * Telephone Encounter - Hawa Morales - 10/01/2022 9:35 AM EDT Tc from pt returning call regarding message below. Please contact pt at [phone] (setswana speaker) * Telephone Encounter - Em Leblanc RN - 09/27/2022 3:29 PM EDT T/C to pt. On [phone] through [employer] id - [id number] for status check and to schedule follow up apt. No answer. LVM to call back on [phone]. * Telephone Encounter - Netta Alvares - 09/26/2022 11:04 AM EDT Tc from pt calling to advise PCP of an ER visit to [facility] on 09/24/22 for surgery on the left leg. Pt advised will forward to team nurse for f/u. Please contact pt at [phone] (Faroese) documented in this encounter Plan of Treatment Upcoming Encounters Date Type Department Care Team (Late st Contact Info) Description 12/29/2024 9:00 AM EDT Telemedicine [facility] [address] [place] [address] [place] [address] Geeta Dove PharmD 230 [place] [address] 01/18/2025 3:15 PM EST Office Visit [address] [address] Name, MD Ananda 230 [place] [address] 01/20/2025 9:15 AM EST Office Visit [facility] [address] [place] [address] 34[address] Latrice Ibrahim MD [address] [place] [address] 9[address] 02/05/2025 9:30 AM EST Office Visit [facility] OPT[facility] [address] [place] [address] Natalie Davis, OD 267 [place] [address] documented as of this encounter Visit Diagnoses Not on filedocumented in this encounter Care Teams Rotary Slicing Machine Operator Relationship Specialty Start Date End Date Ananda Spain MD [address] [place] [address] PCP - General Family Medicine 06/01/15 Geeta Dove PharmD [address] [place] [address]10 Pharmacist Internal Medicine 07/21/24 documented as of this encounter
--- OUTSIDE RECORDS SUMMARY | 2024-12-02 08:03 | XMS_ITS | Encounter Summary ---
Author Organization [employer] Address 75 [facility] 7t [place] [address] Care Team Providers Care Rn Medication Name Role Phone Name, Ananda CRANDALL Primary Care Provider [phone] Geeta Dove PharmD Unavailable [phone] Reason for Visit * Reason Comments Med Refill Encounter Details Date Type Department Care Team ([facility] st Contact Info) Description 12/11/2023 Refill [facility] 230 [place], [place] [phone] Name, MD Ananda 230 [place] [address] Type 2 diabetes mellitus without complication, unspecified whether assisted insulin use ([facility]) Social History Tobacco Use Types Packs/Day Years [...] Description 12/29/2024 9:00 AM EDT Telemedicine [facility] [address] [place] [address] 13588 Geeta Dove, PharmD [address] [place] [address] 01/18/2025 3:15 PM EST Office Visit [facility] [address] [place] [address] 48457 Ananda Spain MD [address] [place] [address] 26117 01/20/2025 9:15 AM EST Office Visit [facility] [address] [place] [address] 45640 Latrice Ibrahim MD 230 [place] [address] 02/05/2025 9:30 AM EST Office Visit [facility] [address] [place] [address] 50357 Natalie Davis, OD 267 [place] [address] documented as of this encounter Visit Diagnoses Diagnosis Type 2 diabetes mellitus without complication, unspecified whether assisted insulin use documented in this encounter Additional Health Concerns Assessment Noted Time PHQ-9 Depression Total Score: 10 024 9:15 AM EDT documented as of this encounter Care Teams Rn Medication Relationship Specialty Start Date End Date Name, MD Ananda 230 [place] [address] PCP - General Family Medicine 06/01/15 Geeta Dove PharmD 230 [place] [address] Pharmacist Internal Medicine 07/21/24 documented as of this encounter
--- OUTSIDE RECORDS SUMMARY | 2024-12-02 08:03 | XMS_ITS | Encounter Summary ---
Author Organization [employer] Address [address] [place] [address] 7t [place] [address] Care Team Providers Care Central Scheduler Name Role Phone Name, Ananda CRANDALL Primary Care Provider [phone] Geeta Dove PharmD Unavailable [phone] Encounter Details Date Type Department Care Team ([facility] Contact Info) Description 05/10/2022 Orders Only [facility] [address] [place] [address] [phone] Alis Zavala, COREY Uncomplicated opioid dependence (CMS/HCC) [...] Upcoming Encounters Date Type Department Care Team ([facility] Contact Info) Description 12/29/2024 9:00 AM EDT Telemedicine [facility]INE 230 [place], [place] [phone] Geeta Dove, PharmD 230 [place], [place] [phone] 01/18/2025 3:15 PM EST Office Visit [facility] [address] [place] [address] Name, MD Ananda [address] [place] [address] 12879 01/20/2025 9:15 AM EST Office Visit [facility] [address] [place] [address] 60532 Latrice Ibrahim MD [address] [place] [address] 59[address] 02/05/2025 9:30 AM EST Office Visit [facility] OPT[facility] [address] [place] [address] 86183 Natalie Davis, OD 267 [place] [address] documented as of this encounter Visit Diagnoses Diagnosis Uncomplicated opioid dependence (CMS/HCC) (HCC) documented in this encounter Care Teams Central Scheduler Relationship Specialty Start Date End Date Name, MD Ananda [address] [place] [address] 62195 PCP - General Family Medicine 06/01/15 Geeta Dove PharmD [address] [place] [address] 65357 Pharmacist Internal Medicine 07/21/24 documented as of this encounter
== END 2024-12-02 07:58 | disposition home or self-care (01) ==
LOC: HO.LAB 07:57
PROVIDERS: PCP Internal Medicine Geriatric Medicine; Visit Provider Nurse Practitioner Family
DX: Z91.09 Other allergy status, other than to drugs and biological substances (principal)
CPT/HCPCS: 36415; 82785

== ENCOUNTER 2024-12-15 10:15 | Day surgery (SDC) | payer OTHER, SELFPAY ==
--- OUTSIDE RECORDS SUMMARY | 2024-12-07 16:42 | XMS_ITS | Encounter Summary ---
Author Organization [employer] Address 75 [facility] 7t [place] [address] Care Team Providers Care Decontamination Worker Name Role Phone Name, Ananda CRANDALL Primary Care Provider [phone] Geeta Dove PharmD Unavailable Reason for Visit * Reason Onset Date Comments Durable Medical Equipment 06/08/2022 Encounter Details Date Type Department Care Team ([facility] st Contact Info) Description 06/08/2022 Telephone [facility] MED[facility]INE 230 [place], [place] [phone] Name, MD Ananda 230 [place] [address] Durable Medical Equipment Social History Tobacco Use [...] states unable to get a hold of therapy site coordinator and would like to know if PCP can send script directly to L&C . Please contact at [phone] * Telephone Encounter - Arleen James - 06/11/2022 11:28 AM EDT TC to patient and informed him to contact his healthcare liaison as a script for a recliner was emailed to her previously. Patient understood and agreed with plan. * Telephone Encounter - Darian Joiner - 06/08/2022 4:29 PM EDT Tc from pt requesting a script for a recliner chair to be send to L&C please contact pt at [phone] documented in this encounter Plan of Treatment Upcoming Encounters Date Type Department Care Team (Late st Contact Info) Description 12/29/2024 9:00 AM EDT Telemedicine [facility] MEDICINE [address] [place] [address] Geeta Dove, LoretoD 230 [place] [address] 01/18/2025 3:15 PM EST Office Visit [facility]INE [address] [place] [address] 58923 Ananda Spain MD [address] [place] [address]20 01/20/2025 9:15 AM EST Office Visit [facility] MED[facility]INE [address] [place] [address] 6[address]38 Latrice Ibrahim MD [address] [place] [address] 35689 02/05/2025 9:30 AM EST Office Visit [facility] [address] [place] [address] Natalie Davis, OD [address] [place] [address] documented as of this encounter Visit Diagnoses Not on filedocumented in this encounter Care Teams Decontamination Worker Relationship Specialty Start Date End Date Name, MD Ananda 230 [place] [address] PCP - General Family Medicine 06/01/15 Geeta Dove, Donte [address] [place] [address] Pharmacist Internal Medicine 07/21/24 documented as of this encounter
--- OUTSIDE RECORDS SUMMARY | 2024-12-07 16:42 | XMS_ITS | Encounter Summary ---
Author Organization [employer] Address [address] [place] [address] 7t [place] [address] Care Team Providers Care Director Account Management Name Role Phone Name, Ananda CRANDALL Primary Care Provider [phone] Geeta Dove PharmD Unavailable [phone] Reason for Visit * Reason Onset Date Comments Prior Authorization 05/07/2022 Appointment 05/07/2022 Encounter Details Date Type Department Care Team (Late st Contact Info) Description 05/07/2022 Telephone [facility] ADULT DENTAL [address] [place] [address] Kelvin Haque DDS [address] [place], [place] [phone] Prior Authorization; Appointment Social History Tobacco Use [...] Info) Description 12/29/2024 9:00 AM EDT Telemedicine [facility] MEDICINE [address] [place] [address] 76[address] Geeta Dove PharmD [address] [place] [address] 01/18/2025 3:15 PM EST Office Visit [address] [address] Name, MD Ananda [address] [place] [address] 01/20/2025 9:15 AM EST Office Visit [address] [address] Latrice Ibrahim MD 230 [place] [address] 02/05/2025 9:30 AM EST Office Visit [facility] OPTOMETRY [address] [place] [address] 6[address] Natalie Davis, OD 267 [place] [address] documented as of this encounter Visit Diagnoses Not on filedocumented in this encounter Care Teams Director Account Management Relationship Specialty Start Date End Date Name, MD Ananda [address] [place] [address] PCP - General Family Medicine 06/01/15 Geeta Dove PharmD [address] [place] [address] 07[address] Pharmacist Internal Medicine 07/21/24 documented as of this encounter
--- OUTSIDE RECORDS SUMMARY | 2024-12-07 16:42 | XMS_ITS | Encounter Summary ---
Author Organization [employer] Address 75 [facility] 7t [place] [address] Care Team Providers Care Millinery Designer Name Role Phone Name, Ananda CRANDALL Primary Care Provider [phone] Geeta Dove PharmD Unavailable [phone] Reason for Visit * Reason Onset Date Comments Appointment 09/06/2022 Encounter Details Date Type Department Care Team ([facility] st Contact Info) Description 09/06/2022 Telephone [facility] ADULT DENTAL 230 [place] [address] Kelvin Haque DDS 230 [place], [place] [phone] Appointment Social History Tobacco Use Types Packs/Day [...] Description 12/29/2024 9:00 AM EDT Telemedicine [facility] MEDICINE [address] [place] [address] Geeta Dove PharmD [address] [place] [address] 01/18/2025 3:15 PM EST Office Visit [address] [address] Name, MD Ananda [address] [place] [address] 17982 01/20/2025 9:15 AM EST Office Visit [facility] MEDICINE [address] [place] [address] Latrice Ibrahim MD [address] [place] [address] 0[address] 02/05/2025 9:30 AM EST Office Visit [facility] OPTOMETRY [address] [place] [address] Natalie Davis, OD [address] [place] [address] documented as of this encounter Visit Diagnoses Not on filedocumented in this encounter Care Teams Millinery Designer Relationship Specialty Start Date End Date Name, MD Ananda [address] [place] [address] PCP - General Family Medicine 06/01/15 Geeta Dove PharmD [address] [place] [address]79 Pharmacist Internal Medicine 07/21/24 documented as of this encounter
--- OUTSIDE RECORDS SUMMARY | 2024-12-07 16:42 | XMS_ITS | Encounter Summary ---
Author Organization [employer] Address 75 [facility] 7t [place] [address] Care Team Providers Care Grease Monkey Name Role Phone Name, Ananda CRANDALL Primary Care Provider [phone] Geeta Dove PharmD Unavailable [phone] Reason for Visit * Reason Comments Med Refill Encounter Details Date Type Department Care Team ([facility] Contact Info) Description 06/07/2022 Refill [facility] [address] [place] [address] [phone] Sebastián Graves MD 230 [place] [address] Pain of left leg Social History Tobacco [...] Upcoming Encounters Date Type Department Care Team ([facility] Contact Info) Description 12/29/2024 9:00 AM EDT Telemedicine [facility] MED[facility]INE [address] [place] [address] Geeta Dove PharmD [address] [place] [address] 01/18/2025 3:15 PM EST Office Visit [facility] MED[facility]INE [address] [place] [address] Name, MD Ananda [address] [place] [address] 800[address] 01/20/2025 9:15 AM EST Office Visit [facility] MED[facility]INE [address] [place] [address] Latrice Ibrahim MD [address] [place] [address] 98237 02/05/2025 9:30 AM EST Office Visit [facility] OPT[facility] [address] [place] [address] Natalie Davis OD [address] [place] [address] documented as of this encounter Visit Diagnoses Diagnosis Pain of left leg documented in this encounter Care Teams Grease Monkey Relationship Specialty Start Date End Date Name, MD Ananda [address] [place] [address] PCP - General Family Medicine 06/01/15 Geeta Dove, LoretoD [address] [place] [address] 31557 Pharmacist Internal Medicine 07/21/24 documented as of this encounter
--- OUTSIDE RECORDS SUMMARY | 2024-12-07 16:42 | XMS_ITS | Clinical Summary ---
Author Organization [employer] Address [address] [place] [address] [address] [place] [address] Care Team Providers Care Certified Alcohol Counselor Name Role Phone Name, Ananda CRANDALL Primary Care Provider [phone] Geeta Dove PharmD Unavailable [phone] Allergies No known active allergies Medications ramelteon (Rozerem) 8 MG tablet Take 1 tablet by mouth at bed time. Active Misc. Devices (Pulse Oximeter For Finger) miscIndications :COPD exacerbation (CMS/HCC) ([facility]) 1 each 2 times daily. Call [facility] if consistently < 95% 1 each 023 Active clonazePAM (KlonoPIN) 1 MG tablet Take 1 mg by mouth 2 times daily. 023 Active Lancets (OneTouch Delica Plus [id number]) misc TEST BLOOD SUGAR THREE TIMES DAILY [...] penIndications: Diabetes mellitus type 2 in nonobese ([facility]) INJECT SUBCUTANEOUSLY THREE TIMES DAILY PER [...] obstructive pulmonary disease, unspecified COPD type (CMS/HCC) ([facility]) INHALE 2 PUFFS BY MOUTH EVERY [...] without complication, unspecified whether jail insulin use USE DIRECTED FOUR TIMES DAILY [...] hyperglycemia, with long-term current use of insulin ([facility]) TAKE 1 TABLET BY MOUTH EVERY [...] hyperglycemia, with long-term current use of insulin ([facility]) USE TO TEST BLOOD SUGAR THREE TIMES DAILY 100 strip 3 Active Alcohol Swabs (Alcohol Prep) 70 % pads USE FOUR TIMES DAILY DIRECTED 100 each 11 025 Active albuterol (2.5 MG/3ML) 0.083% nebulizer solution Take 2.5 mg by nebulization every 6 (six) hours if needed for wheezing. 025 Active Suboxone 8-2 MG SL filmIndications :Uncomplicated opioid dependence (CMS/HCC) ([facility]) Place 3 Film under the tongue Once per day. 84 Film 1 025 2024 Active Suboxone 8-2 MG SL filmIndications :Uncomplicated opioid dependence (CMS/HCC) ([facility]) Place 3 Film under the tongue Once per day for 28 days. 84 Film 025 2024 Discontinued(R eorder (will not trigger notification to Pharmacy)) Active Problems Problem Noted Date Diagnosed Date COPD exacerbation (CMS/HCC) 10/16/2024 Assessment & Plan (10/16/2024 11:04 AM EDT): Patient has pulmonology appointment on 10/21/2024 at 10 am at [facility] pulmonology [place], [address] [facility] [address], I advise not to miss this appointment [...] and left lower lobe calcified large granuloma. [address] [address] [address] Scan Report Signed Patient: Hubert Rios MR#: [id number] : 1965 Acct:[id number] Age/Sex: 59 / M ADM Date: 07/02/24 Loc: HO.CT Attending Dr: Chanel Thomas NP Ordering Physician: Chanel Thomas NP Date of Service: 07/02/24 Procedure(s): CT chest wo IV con Accession Number(s): [id number] cc: Grabiel,Ananda CRANDALL; Chanel Thomas NP Report Number: [id number]: Total DLP = 110.00 mGy-cm EXAMINATION: CT [...] Encounters Date Type Department Care Team Description 12/02/2024 Orders Only GENERIC EXTERNAL DATA DEPARTMENT Provider, Generic External Data 11/27/2024 9:00 AM EDT Telemedicine [address] [address] Geeta Dove, LoretoD Tobacco dependence (Primary Dx) 11/25/2024 9:15 AM EDT Office Visit [address] [address] Latrice Ibrahim MD Uncomplicated opioid dependence (CMS/HCC) (Primary Dx) 11/25/2024 Travel 11/24/[address] [address] Ananda Spain MD 11/23/2024 Orders Only GENERIC EXTERNAL DATA DEPARTMENT Provider, Generic External Data 11/18/[address] [address] Sonali Stubbs, RN Uncomplicated opioid dependence (CMS/HCC) 11/06/[address] [address] Ananda Spain MD CHARTPREP 11/05/2024 Orders Only [facility] External Provider, [facility] 10/28/2024 9:00 AM EDT Office Visit [address] [address] Latrice Ibrahim MD Uncomplicated opioid dependence (CMS/HCC) (Primary Dx) 10/28/2024 Travel 10/27/2024 Telephone [facility] [address] [place] [address] Latrice Ibrahim MD CHART PREP 10/21/2024 Refill [facility] [address] [place] [address] Sonali Stubbs RN Uncomplicated opioid dependence ([facility]) 10/16/2024 11:00 AM EDT Office Visit [facility] [address] [place] [address] So Lebron MD COPD exacerbation ([facility]) (Primary Dx); Cough in adult patient 10/16/2024 Travel 10/13/2024 Orders Only GENERIC EXTERNAL DATA DEPARTMENT Provider, Generic External Data 10/09/2024 Orders Only GENERIC EXTERNAL DATA DEPARTMENT Provider, Generic External Data 09/30/2024 Orders Only [facility] External Provider, [facility] 09/29/2024 9:00 AM EDT Clinical Support [address] [address] Maya Jolly RN Opioid type dependence, continuous ([facility]) 09/29/2024 Travel 09/23/2024 Refill [facility] [address] [place] [address] Sonali Stubbs RN Uncomplicated opioid dependence ([facility]) 09/21/2024 Telephone [facility] [address] [place] [address] Grabiel, MD Ananda Letter Request (I called the patient, regarding his request for a letter. He stated that a lot of dust enters the apartment where he is currently living, and it is making his lung condition worse. He stated that housing will allow him to move to a different location, if he provides a letter from his PCP.) 09/21/2024 Travel 09/21/2024 Telephone [facility] [address] [place] [address] Geeta Dove, LoretoD from Last 3 Months Immunizations Immunization Administration [...] Info) Description 12/29/2024 9:00 AM EDT Telemedicine [address] [address] Geeta Dove, PharmD [address] [place] [address] 01/18/2025 3:15 PM EST Office Visit [address] [address] Name, MD Ananda [address] [place] [address] 01/20/2025 9:15 AM EST Office Visit [address] [address] Latrice Ibrahim MD [address] [place] [address] 02/05/2025 9:30 AM EST Office Visit [facility] [address] [place], [place] [phone] Natalie Davis, OD [address] [place] [address] Health Maintenance Due Date Last Done Comments [...] Screening 10/16/2025 10/16/2024 Eye Exam 08/06/2026 08/06/2024, 0607/2024, 08/06/2024, Additional history exists RSV Patients and [...] Procedure Name Priority Date/Time Associated Diagnosis Comments IMMUNOGLOBULIN E Routine 12/02/2024 8:10 AM EDT GLUCOSE, WHOLE BLOOD Routine 11/23/2024 9:21 AM [...] JANAE COMPLETE Routine 09/30/2024 1:41 PM EDT ALBUMIN, RANDOM URINE W/CREATININE Routine 05/29/2024 8:43 AM EDT LIPID PANEL, STANDARD Routine 05/27/2024 8:40 AM EDT Type 2 diabetes mellitus with hyperglycemia, with long-term current use of insulin (CMS/HCC) Chronic obstructive pulmonary disease, unspecified COPD type (CMS/HCC) HEPATITIS C AB W/REFL TO HCV RNA, QN, PCR Routine 03/29/2023 9:12 AM EST HIV 1/2 ANTIGEN/ANTIBODY, FOURTH GENERATION W/RFL Routine 03/29/2023 9:12 AM EST COLONOSCOPY Routine 08/16/2015 1:52 PM EDT from Last 3 Months or Most Recently Relevant to Health Maintenance Results * (ABNORMAL) Immunoglobulin E (12/02/2024 8:10 AM EDT) Only the most recent of2 resultswithin the time period is included. Immunoglobulin E 373(A) <YN=070 kU/L [facility] Comment:THIS TEST WAS PERFOR MED AT:[employer] [place] [id number] GARCIA MD 12/02/2024 8:10 AM EDT 12/02/2024 8:10 AM EDT Generic External Data Provider LAB BLOOD ORDERAB LES Final Result Performing Organization Address [facility]/ZIP Co de Phone Number [facility] [address] [place] [phone] * Glucose, Whole Blood (11/23/2024 9:21 AM EDT) Only the most recent of2 resultswithin the time period is included. Glucose, Whole Blood 91 60 - 115 mg/dL [facility] Comment:METER #: [id number] Testing performed in the Endocrinology Department [address] , [address], [facility]. 11/23/2024 9:21 AM EDT 11/23/2024 9:24 AM EDT us Generic External Data Provider LAB BLOOD ORDERAB LES Final Result Performing Organization Address [facility]/ZIP Co de Phone Number [facility] [address] [place] [address] [phone] * US Renal Complete (11/05/2024 12:39 PM EDT) Anatomical Region Laterality Modality Kidney Ultrasound 11/05/2024 12:3 9 PM EDT Narrative 11/05/2024 3:49 PM EDT [address] [address] Ultrasound Report Signed Patient: Hubert Rios MR#: [id number] : 1965 Acct:[id number] Age/Sex: 59 / M ADM Date: 11/05/24 Loc: HO.US Attending Dr: Hipolito Mcdaniel MD Ordering Physician: Hipolito Mcdaniel MD Date of Service: 11/05/24 Procedure(s): US renal BI Accession Number(s): [id number] cc: Hipolito Mcdaniel MD; Name,Ananda CRANDALL Reason [...] 11/05/24 1546 DD/ 1239 TD/TT: 11/05/24 1250 Epic Anesthesia Analyst: [facility] Procedure Note Donotuseinterpreter, Image - 11/05/2024 [place] [address] Ultrasound Report Signed Patient: Hubert Rios MMR#: [id number] : 1965Acct:[id number] Age/Sex: 59 / MADM Date: 11/05/24 Loc: .US Attending Dr: Hipoilto Mcdaniel MD Ordering Physician: Hipolito Mcdaniel MD Date of Service: 11/05/24 Procedure(s): US renal BI Accession Number(s): [id number] cc: Hipolito Mcdaniel MD; Name,Ananda CRANDALL Reason [...] 11/05/24 1546 DD/ 1239 TD/TT: 11/05/24 1250 Epic Anesthesia Analyst: ZABRINA [facility] External Provider IMG US PROCEDURES Final Result * (ABNORMAL) POCT FARA-14 Urine Drug Screen (10/28/2024 9:10 AM EDT) THC Negative Negative Cocaine Screen, Urine Negative [...] NOW Rapid Molecular) (10/16/2024 10:18 AM EDT) [facility] Influenza B Negative Negative, Indeterminate [facility] Swab 10/16/2024 10:1 8 AM EDT us So Osman MD POINT OF CARE TEST EN TER/EDIT ORDERABLES Final Result Performing Organization Address [facility] Co de Phone Number [facility] [address] [place] [phone] * Influenza A (ID NOW Rapid Molecular) (10/16/2024 10:18 AM EDT) [facility] Influenza A Negative Negative, Indeterminate [facility] Swab 10/16/2024 10:1 8 AM EDT So Osman MD POINT OF CARE TEST EN TER/EDIT ORDERABLES Final Result Performing Organization Address [facility] Co de Phone Number [facility] [address] [place] [phone] * POCT Rapid COVID Ag (10/16/2024 10:18 AM EDT) [facility] Rapid COVID Ag Negative Swab 10/16/2024 10:1 8 AM EDT So Osman MD POINT OF CARE TEST EN TER/EDIT ORDERABLES Final Result * (ABNORMAL) Hemoglobin A1c (10/13/2024) Pathologist [facility] Hemoglobin A1C 8.0(A) 4.0 - 5.7 % Blood Venous blood specimen / Unknown Historical Provider LAB BLOOD ORDERABLES Anna l Result * (ABNORMAL) Respiratory Allergy Profile Region I (10/09/2024 8:23 AM EDT) Pathologist [facility] Mouse Urine Proteins (E72) IgE <0.10 kU/L [facility] Class 0 [facility] Cockroach (I6) IgE 0.17(A) kU/L [facility] Class 0/1 [facility] Dermatophagoides farinae (D2) IgE 0.99(A) kU/L [facility] Class 2 [facility] Cat Dander (E1) IgE <0.10 kU/L [facility] Class 0 [facility] Comment:THIS TEST WAS PERFOR MED AT:[employer] [address] [phone] GARCIA MD Dog Dander (E5) IgE <0.10 kU/L [facility] Class 0 [facility] Comment:THIS TEST WAS PERFOR MED AT:[employer] [address] [phone] GARCIA MD Fredo Grass (G6) IgE <0.10 kU/L [facility] Class 0 [facility] Cladosporium herbarum (M2) IgE <0.10 kU/L [facility] Class 0 [facility] Aspergillus Fumigatis (M3) IgE <0.10 kU/L [facility] Class 0 [facility] Alternaria alternata (M6) IgE <0.10 kU/L [facility] Class 0 [facility] Comment:THIS TEST WAS PERFOR MED AT:[employer] [place] [phone] Stephany HENSLEY [place] (t6) IgE <0.10 kU/L [facility] Class 0 [facility] Manor (T7) IgE <0.10 kU/L [facility] Class 0 [facility] [place] Tree (T10) IgE <0.10 kU/L [facility] Class 0 [facility] Art (T11) IgE <0.10 kU/L [facility] Class 0 [facility] Mason (T14) IgE <0.10 kU/L [facility] Class 0 [facility] White Andrew (t15) IgE <0.10 kU/L [facility] Class 0 [facility] White [place] (T70) IgE <0.10 kU/L [facility] Class 0 [facility] Common Ragweed (Short) (W1) IgE 0.12(A) kU/L [facility] Class 0/1 [facility] Mugwort (w6) IgE <0.10 kU/L [facility] Class 0 [facility] Dermatophagoides pteronyssinus (D1) IgE 0.98(A) kU/L [facility] Class 2 [facility] Bermuda Grass (g2) IgE <0.10 kU/L [facility] Class 0 [facility] Penicillium Notatum (M1) IgE <0.10 kU/L [facility] Class 0 [facility] Birch (T3) IgE <0.10 kU/L [facility] Class 0 [facility] Elm (t8) IgE <0.10 kU/L [facility] Class 0 [facility] Maple (Cochran) (T1) IgE <0.10 kU/L [facility] Class 0 [facility] Rough Pigweed (W14) IgE <0.10 kU/L [facility] Class 0 [facility] Sheep Suncook (W18) IgE <0.10 kU/L [facility] Class 0 [facility] Allergen Comment See Below [facility] Comment: Specific Level of AllergenIGE Class [...] and its analyticalperformance characteristics have been determined by[employer]. It has not been cleared or approvedby the U.S. Food and Drug Administration. This assayhas been validated pursuant to the CLIA regulationsand is used for clinical purposes.THIS TEST WAS PERFORMED AT:[employer] [place] [phone] GARCIA MD 10/09/2024 8:23 AM EDT 10/09/2024 8:26 AM EDT us Generic External Data Provider LAB BLOOD ORDERAB LES Final Result [facility] [address] [place] [phone] * (ABNORMAL) CBC auto differential (10/09/2024 8:23 AM EDT) White Blood Count 5.9 4.8 - 10.8 X10*3/uL [facility] Red Blood Count 4.56(L) 4.60 - 5.80 X10*6/uL [facility] Hemoglobin 13.5(L) 14.0 - 18.0 g/dl [facility] Hematocrit 40.9(L) 42.0 - 52.0 % [facility] Mean Corpuscular Volume 89.7 80.0 - 98.0 fL [facility] Mean Corpuscular Hemoglobin 29.6 27.0 - 33.0 pg [facility] Mean Corpuscular HGB Conc 33.0 31.0 - 36.0 g/dl [facility] Red Cell Distribution Width 13.3 11.0 - 16.0 % [facility] Platelet Count 237 160 - 400 X10*3/uL [facility] Mean Platelet Volume 10.6 9.4 - 12.4 fL [facility] Neutrophils Percent Auto 43.2(L) 45 - 73 % [facility] Imm Gran Pct Auto 0.3 0.0 - 0.4 % [facility] Lymphocytes Percent Auto 32.8 20 - 40 % [facility] Monocytes Percent Auto 12.5(H) 2 - 11 % [facility] Eosinophils Percent Auto 10.0(H) 0 - 4 % [facility] Basophils Percent Auto 1.2 0 - 2 % [facility] NRBC Pct Auto 0.0 0.0 - 0.2 /100WBC [facility] Neutrophils Absolute Auto 2.6 2.0 - 8.3 x10*3/uL [facility] Imm Gran Abs Auto 0.02 0.00 - 0.03 X10*3/uL [facility] Lymphocytes Absolute Auto 1.9 1.2 - 4.9 X10*3/uL [facility] Monocytes Absolute Auto 0.7 0.1 - 1.2 X10*3/uL [facility] Eosinophils Absolute Auto 0.6(H) 0.0 - 0.4 X10*3/uL [facility] Basophils Absolute Auto 0.1 0.0 - 0.2 X10*3/uL [facility] NRBC Abs Auto 0.000 0.0 - 0.012 X10*3/uL [facility] 10/09/2024 8:23 AM EDT 10/09/2024 8:26 AM EDT us Generic External Data Provider LAB BLOOD ORDERAB LES Final Result [facility] [address] [place] [phone] * US JANAE COMPLETE (09/30/2024 1:41 PM EDT) Anatomical Region Laterality Modality Abdomen Ultrasound 09/30/2024 1:41 PM EDT Narrative 09/30/2024 1:42 PM EDT [address] [address] Ultrasound Report Signed Patient: Hubert Rios MR#: [id number] : 1965 Acct:[id number] Age/Sex: 59 / M ADM Date: 09/30/24 Loc: . Attending Dr: Nichole Monteiro NP Ordering Physician: Nichole Monteiro NP Date of Service: 09/30/24 Procedure(s): US JANAE complete Accession Number(s): [id number] cc: Ananda Spain MD; Nichole Monteiro NP [...] 09/30/24 1342 DD/ 1341 TD/TT: 09/30/24 1341 Epic Anesthesia Analyst: Procedure Note Donotuseinterpreter, Image - 09/30/[address] [place] [address] Ultrasound Report Signed Patient: Hubert Rios MMR#: [id number] : 1965Acct:[id number] Age/Sex: 59 / MADM Date: 09/30/24 Loc: [facility] Attending Dr: Nichole Monteiro NP Ordering Physician: Nichole Monteiro NP Date of Service: 09/30/24 Procedure(s): US JANAE complete Accession Number(s): [id number] cc: Ananda Spain MD; Nichole Monteiro NP [...] 09/30/24 1342 DD/ 1341 TD/TT: 09/30/24 1341 Epic Anesthesia Analyst: [facility] External Provider IMG US PROCEDURES Final Result * Albumin, Random Urine W/Creatinine (05/29/2024 8:43 AM EDT) Creatinine, Urine 126.68 mg/dL [facility] Microalbumin Urine 15.0 mg/L [facility] Microalbum Creatinine Ratio Ur 11.8 <30 ug/mg cr [facility] Comment:Albumin/Creatinine R atio Reference Ranges: Normal: < 30 ug/mg creatinine Microalbuminuria: 30 - 300 ug/mg creatinineClinical Albuminuria: > 300 ug/mg creatinine 05/29/2024 8:43 AM EDT 05/29/2024 9:05 AM EDT us Generic External Data Provider LAB URINE ORDERAB LES Final Result Performing Organization Address [facility] Co de Phone Number [facility] [address] [place] [phone] * (ABNORMAL) Lipid Panel, Standard (05/27/2024 8:40 AM EDT) Triglycerides 73 <150 mg/dL [facility] Comment:Desirable Triglyceri de: less than 150 mg/dLBorderline High Triglyceride 150-199 mg/dLHigh Triglyceride: 200-499 mg/dLVery High Triglyceride: greater than or equal to 5OO mg/dL Cholesterol 221(H) <200 mg/dL [facility] Comment:Desirable Cholestero l: less than 200 mg/dLBorderline High Cholesterol: 200-239 mg/dLHigh Cholesterol: greater than 239 mg/dL LDL Cholesterol Calculated 75 <100 mg/dL [facility] Comment:Desirable LDL: less than 100 mg/dLNear Optimal/Above Optimal LDL: 110- 129 mg/dLBorderline High LDL: 130-159 mg/dLHigh LDL: 160-189 mg/dLVery High LDL: greater than or equal to 190 mg/dL HDL Cholesterol 132 >40 mg/dL [facility] Comment:Desirable HDL: great er than 40 mg/dL Note: This HDL assay may give artificially low results in patients with liver disease. Blood Venous blood specimen / Unknown 05/27/2024 8:40 AM EDT 05/27/2024 8:40 AM EDT Ananda Spain MD LAB BLOOD ORDERABLES Final Resul t Performing Organization Address [facility]/ZIP Co de Phone Number [facility] [address] [place] [address] [phone] * (ABNORMAL) Hepatitis C Antibody with Reflex to HCV, RNA, Quantitative, Real- Time PCR (03/29/2023 9:12 AM EST) Hepatitis C Antibody Reactive( A) Nonreactive [facility] Comment:Presumptive evidence of antibodies to HCV. 03/29/2023 9:12 AM EST 03/29/2023 11:11 AM EST us Latrice Ibrahim MD LAB BLOOD ORDERABLES Final Resul t Performing Organization Address [facility] Co de Phone Number [facility] [address] [place] [phone] * HIV-1/2 Antigen and Antibodies, Fourth Generation, with Reflexes (03/29/2023 9:12 AM EST) HIV AB/AG Nonreactive Nonreactive [facility] Comment:HIV-1 p24 Ag and/or HIV-1/HIV-2 Ab not detected.A test result that is nonreactive does not exclude thepossibility of exposure to or infection with HIV-1 and/orHIV-2. Nonreactive results in this assay for individualswith prior exposure to HIV-1 and/or HIV-2 may be due toantigen and antibody levels that are below the limit ofdetection of this assay.[employer] HIV Ag/Ab Combo assay result andsupplemental assay results should be interpreted inconjunction with the patient's clinical presentation,history and other laboratory results. If the results areinconsistent with clinical evidence, additional testing issuggested to confirm the result. 03/29/2023 9:12 AM EST 03/29/2023 11:11 AM EST us Latrice Ibrahim MD LAB BLOOD ORDERABLES Final Resul t Performing Organization Address [facility]/ZIP Co de Phone Number [facility] [address] [place] [phone] * Hm Colonoscopy (08/16/2015 1:52 PM EDT) Colonoscopy Normal Normal Narrative Gloria Álvarez - 08/16/2015 1:52 PM EDT Recommended 10 year follow up Damari Zhang MD HEALTH MAINTENANCE Final Result from Last 3 Months or Most Recently Relevant to Health Maintenance Insurance [facility] CARE < 65 Care Teams Certified Alcohol Counselor Relationship Specialty Start Date End Date Name, MD Ananda [address] [place] [phone] PCP - General Family Medicine 06/01/15 Geeta Dove, PharmD [address] [place] [phone] Pharmacist Internal Medicine 07/21/24
--- OUTSIDE RECORDS SUMMARY | 2024-12-07 16:42 | XMS_ITS | Encounter Summary ---
Author Organization [employer] Address [address] [facility] 7t [place] [address] Care Team Providers Care Director Translation Name Role Phone Name, Ananda CRANDALL Primary Care Provider [phone] Geeta Dove PharmD Unavailable Reason for Visit * Reason Onset Date Comments Durable Medical Equipment 09/18/2022 Encounter Details Date Type Department Care Team ([facility] st Contact Info) Description 09/18/2022 Telephone [facility] MEDICINE [address] [place], [place] [phone] Name, MD Ananda 230 [place] [address] Durable Medical Equipment Social History Tobacco Use [...] 09/21/2022 1:49 PM EDT Incoming call from [facility] PT regarding message below. [facility] PT states they have no record of pt ever going to their offices and getting PT. Unsure what next steps should be at this point. * Telephone Encounter - Christy Finn RN - 09/21/2022 1:39 PM EDT TC X1 to [facility] Core PT [phone] regarding message below. LVM to return call to nurses. * Telephone Encounter - Lauren Walsh - 09/20/2022 3:14 PM EDT Tc from patient returning call back, regarding message below. Patient states he's going to PT in [facility]. [address] [place] [address] [facility] [place] [address] Dr. Mcdaniel. * Telephone Encounter - Christy [...] Info) Description 12/29/2024 9:00 AM EDT Telemedicine [facility] MEDICINE [address] [place] [address] Geeta Dove PharmD [address] [place] [address] 01/18/2025 3:15 PM EST Office Visit [facility] MEDICINE [address] [place] [address] Name, MD Ananda [address] [place] [address] 01/20/2025 9:15 AM EST Office Visit [facility] MEDICINE [address] [place] [address] Latrice Ibrahim MD [address] [place] [address] 02/05/2025 9:30 AM EST Office Visit [facility] OPTOMETRY [address] [place] [address] Natalie Davis, OD [address] [place] [address] documented as of this encounter Visit Diagnoses Not on filedocumented in this encounter Care Teams Director Translation Relationship Specialty Start Date End Date Name, MD Ananda [address] [place] [address] PCP - General Family Medicine 06/01/15 Geeta Dove PharmD [address] [place] [address]44 Pharmacist Internal Medicine 07/21/24 documented as of this encounter
--- OUTSIDE RECORDS SUMMARY | 2024-12-07 16:42 | XMS_ITS | Encounter Summary ---
Author Organization [email or web address] Address [address] [facility] [address] 7t [place] [address] Care Team Providers Care Pattern Keeper Name Role Phone Name, Ananda CRANDALL Primary Care Provider [phone] Geeta Dove PharmD Unavailable [phone] Reason for Visit * Reason Comments Med Refill Encounter Details Date Type Department Care Team ([facility] st Contact Info) Description 09/19/2023 Refill [facility]EDS [address] [place], [place] [phone] Name, MD Ananda 230 [place] [address] Pain of left leg Social History Tobacco [...] Info) Description 12/29/2024 9:00 AM EDT Telemedicine [facility] MEDICINE [address] [place] [address] Geeta Dove, PharmD [address] [place] [address] 27[address] 01/18/2025 3:15 PM EST Office Visit [facility] MEDICINE [address] [place] [address] Ananda Spain MD [address] [place] [address] 207[address] 01/20/2025 9:15 AM EST Office Visit [facility] MEDICINE [address] [place] [address] Latrice Ibrahim MD [address] [place] [address] 02/05/2025 9:30 AM EST Office Visit [facility] OPTOMETRY [address] [place] [address] Natalie Davis, OD 267 [place] [address] documented as of this encounter Visit Diagnoses Diagnosis Pain of left leg documented in this encounter Additional Health Concerns Assessment Noted Time PHQ-9 Depression Total Score: 10 024 9:15 AM EDT documented as of this encounter Care Teams Pattern Keeper Relationship Specialty Start Date End Date Name, MD Ananda 230 [place] [address] PCP - General Family Medicine 06/01/15 Geeta Dove PharmD 230 [place] [address] Pharmacist Internal Medicine 07/21/24 documented as of this encounter
--- OUTSIDE RECORDS SUMMARY | 2024-12-07 16:42 | XMS_ITS | Encounter Summary ---
Author Organization [employer] Address [address] [place] [address] 7t [place] [address] Care Team Providers Care Leather Worker Name Role Phone Name, Ananda CRANDALL Primary Care Provider [phone] Geeta Dove PharmD Unavailable [phone] Reason for Visit * Reason Comments Med Refill Encounter Details Date Type Department Care Team (Late st Contact Info) Description 12/07/[address] [facility] MEDICINE [address] [place] [address] Name, MD Ananda 230 [place] [address] Type 2 diabetes mellitus without complication, unspecified whether prison insulin use ([facility]); Type 2 diabetes mellitus without complication, with long-term current use of insulin ([facility]) Social History Tobacco Use Types [...] Description 12/29/2024 9:[address] [facility] MEDICINE [address] [place] [address] Geeta Dove PharmD [address] [place] [address] 01/18/2025 3:15 PM EST Office Visit [address] [address] Ananda Spain MD [address] [place] [address] 01/20/2025 9:15 AM EST Office Visit [facility] MEDICINE [address] [place] [address] Latrice Ibrahim MD [address] [place] [address] 02/05/2025 9:30 AM EST Office Visit [facility] OPTOMETRY [address] [place] [address] Natalie Davis OD 267 [place] [address] documented as of this encounter Visit Diagnoses Diagnosis Type 2 diabetes mellitus without complication, unspecified whether prison insulin use Type 2 diabetes mellitus without complication, with long-term current use of insulin (HCC) documented in this encounter Additional Health Concerns Assessment Noted Time PHQ-9 Depression Total Score: 3 10/04/19 23 2:21 PM EDT documented as of this encounter Care Teams Leather Worker Relationship Specialty Start Date End Date Ananda Spain MD [address] [place] [address] PCP - General Family Medicine 06/01/15 Geeta Dove, Donte [address] [place] [address] Pharmacist Internal Medicine 07/21/24 documented as of this encounter
--- OUTSIDE RECORDS SUMMARY | 2024-12-07 16:42 | XMS_ITS | Encounter Summary ---
Author Organization [employer] Address [address] [facility] 7t [place] [address] Care Team Providers Care Corporate Communications Manager Name Role Phone Name, Ananda CRANDALL Primary Care Provider Geeta Dove PharmD Unavailable [phone] Encounter Details Date Type Department Care Team ([facility] Contact Info) Description 03/28/2022 Orders Only [facility] MED & PEDS [address] [place] [address] Teresa Moody LPN Social History Tobacco Use [...] Upcoming Encounters Date Type Department Care Team ([facility] Contact Info) Description 12/29/2024 9:00 AM EDT Telemedicine [facility] MEDICINE 230 [place], [place] [phone] Geeta Dove, PharmD 230 [place], [place] [phone] 01/18/2025 3:15 PM EST Office Visit [facility] MEDICINE [address] [place] [address] Name, MD Ananda [address] [place] [address] 01/20/2025 9:15 AM EST Office Visit [facility] MEDICINE [address] [place] [address] Latrice Ibrahim MD 230 [place] [address] 02/05/2025 9:30 AM EST Office Visit [facility] OPTOMETRY [address] [place], [place] [phone] Natalie Davis, OD 267 [place] [address] documented as of this encounter Visit Diagnoses Not on filedocumented in this encounter Care Teams Corporate Communications Manager Relationship Specialty Start Date End Date Name, MD Ananda [address] [place] [address] PCP - General Family Medicine 06/01/15 Geeta Dove PharmD [address] [place] [address] 11948 Pharmacist Internal Medicine 07/21/24 documented as of this encounter
--- OUTSIDE RECORDS SUMMARY | 2024-12-07 16:42 | XMS_ITS | Encounter Summary ---
Author Organization [employer] Address [address] [place] [address] 7t [place] [address] Care Team Providers Care Counter Dish Carrier Name Role Phone Name, Ananda CRANDALL Primary Care Provider [phone] Geeta Dove PharmD Unavailable [phone] Encounter Details Date Type Department Care Team (Latest Contact Info) Description 01/06/2019 Abstract [facility] CONVERSIONS Dental, Provider, DDS Social History Tobacco [...] 12/29/2024 9:00 AM EDT Telemedicine [facility] MEDICINE [address] [place] [address] Geeta Dove, PharmD [address] [place] [address] 01/18/2025 3:15 PM EST Office Visit [address] [address] NameAnanda MD [address] [place] [address] 01/20/2025 9:15 AM EST Office Visit [address] [address] Latrice Ibrahim MD 230 [place] [address] 02/05/2025 9:30 AM EST Office Visit [facility] OPTOMETRY 267 [place], [place] [phone] Ryan Natalie, OD 267 [place] [address] documented as of this encounter Visit Diagnoses Not on filedocumented in this encounter Care Teams Counter Dish Carrier Relationship Specialty Start Date End Date Name, MD Ananda 230 [place], [place] [phone] PCP - General Family Medicine 06/01/15 Geeta Dove PharmD [address] [place] [address] [phone] Pharmacist Internal Medicine 07/21/24 documented as of this encounter
--- OUTSIDE RECORDS SUMMARY | 2024-12-07 16:42 | XMS_ITS | Encounter Summary ---
Author Organization [employer] Address [address] [place] [address] 7t [place] [address] Care Team Providers Care Pharmacist Intern Name Role Phone Name, Ananda CRANDALL Primary Care Provider [phone] Geeta Dove PharmD Unavailable [phone] Encounter Details Date Type Department Care Team ([facility] Contact Info) Description 02/14/2022 Abstract [facility] MEDICINE [address] [place] [address] [phone] Provider, MD Damari Social History Tobacco Use [...] Upcoming Encounters Date Type Department Care Team ([facility] Contact Info) Description 12/29/2024 9:00 AM EDT Telemedicine [facility] MEDICINE [address] [place] [address] [phone] Geeta Dove, PharmD 230 [place] [address] 01/18/2025 3:15 PM EST Office Visit [facility] MEDICINE [address] [place] [address] Name, MD Ananda [address] [place] [address] 01/20/2025 9:15 AM EST Office Visit [facility] MEDICINE [address] [place] [address] Latrice Ibrahim MD 230 [place] [address] 02/05/2025 9:30 AM EST Office Visit [facility] OPTOMETRY [address] [place], [place] [phone] Natalie Davis, OD 267 [place] [address] documented as of this encounter Visit Diagnoses Not on filedocumented in this encounter Care Teams Pharmacist Intern Relationship Specialty Start Date End Date Name, MD Ananda [address] [place] [address] PCP - General Family Medicine 06/01/15 Geeta Dove PharmD [address] [place] [address] 96809 Pharmacist Internal Medicine 07/21/24 documented as of this encounter
--- OUTSIDE RECORDS SUMMARY | 2024-12-07 16:42 | XMS_ITS | Encounter Summary ---
Author Organization [employer] Address 75 [facility] 7t [place] [address] Care Team Providers Care Community Music Therapist Name Role Phone Name, Ananda CRANDALL Primary Care Provider [phone] Geeta Dove PharmD Unavailable [phone] Encounter Details Date Type Department Care Team ([facility] Contact Info) Description 03/28/2023 Abstract [facility] MEDICINE 230 [place], [place] [phone] Name, MD Ananda 230 [place] [address] Social History Tobacco Use Types Packs/Day Years [...] Info) Description 12/29/2024 9:00 AM EDT Telemedicine [facility] MEDICINE [address] [place] [address] 19781 Geeta Dove PharmD [address] [place] [address] 01/18/2025 3:15 PM EST Office Visit [facility] MEDICINE [address] [place] [address] Ananda Spain MD [address] [place] [address]47 01/20/2025 9:15 AM EST Office Visit [address] [address] Latrice Ibrahim MD 230 [place] [address] 02/05/2025 9:30 AM EST Office Visit [facility] OPTOMETRY [address] [place] [address] Natalie Davis, OD 267 [place] [address] documented as of this encounter Visit Diagnoses Not on filedocumented in this encounter Additional Health Concerns Assessment Noted Time PHQ-9 Depression Total Score: 3 10/04/19 23 2:21 PM EDT documented as of this encounter Care Teams Community Music Therapist Relationship Specialty Start Date End Date Ananda Spain MD [address] [place] [address] PCP - General Family Medicine 06/01/15 Geeta Dove PharmD [address] [place] [address] Pharmacist Internal Medicine 07/21/24 documented as of this encounter
--- OUTSIDE RECORDS SUMMARY | 2024-12-07 16:42 | XMS_ITS | Encounter Summary ---
Author Organization [employer] Address [address] [place] [address] 7t [place] [address] Care Team Providers Care Crane Helper Name Role Phone Name, Ananda CRANDALL Primary Care Provider [phone] Geeta Dove PharmD Unavailable [phone] Encounter Details Date Type Department Care Team (Latest Contact Info) Description 01/09/2021 Abstract [facility] CONVERSIONS Dental, Provider, DDS Social [...] Info) Description 12/29/2024 9:00 AM EDT Telemedicine [facility] MEDICINE [address] [place] [address] Geeta Dove, PharmD [address] [place] [address] 9[address] 01/18/2025 3:15 PM EST Office Visit [address] [address] NameAnanda MD [address] [place] [address] 330[address] 01/20/2025 9:15 AM EST Office Visit [address] [address] Latrice Ibrahim MD 230 [place] [address] 02/05/2025 9:30 AM EST Office Visit [facility] OPTOMETRY [address] [place], [place] [phone] Natalie Davis, OD 267 [place] [address] documented as of this encounter Visit Diagnoses Not on filedocumented in this encounter Care Teams Crane Helper Relationship Specialty Start Date End Date Name, MD Ananda 230 [place], [place] [phone] PCP - General Family Medicine 06/01/15 Geeta Dove PharmD 230 [place], [place] [phone] Pharmacist Internal Medicine 07/21/24 documented as of this encounter
--- OUTSIDE RECORDS SUMMARY | 2024-12-07 16:42 | XMS_ITS | Encounter Summary ---
Author Organization [employer] Address 75 [facility] 7t [place] [address] Care Team Providers Care Underground Mining Section Foreman Name Role Phone Ananda Spain MD Primary Care Provider [phone] Geeta Dove PharmD Unavailable [phone] Reason for Visit * Reason Onset Date Comments ER Follow-up 09/26/2022 Encounter Details Date Type Department Care Team ([facility] st Contact Info) Description 09/26/2022 Telephone [facility] MEDICINE 230 [place], [place] [phone] Name, MD Ananda 230 [place] [address] ER Follow-up Social History Tobacco Use Types [...] 10:24 AM EDT T/c to pt. Through [facility] [employer] [facility] id - [id number] for below message, pt. 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 Please contact pt at [phone] (faroese speaker) * Telephone Encounter - Em Leblanc RN - 09/27/2022 3:29 PM EDT T/C to pt. On [phone] through [facility] [employer] [facility] id - [id number] for status check and to schedule follow up apt. No answer. LVM to call back on [phone]. * Telephone Encounter - Netta Alvares - 09/26/2022 11:04 AM EDT Tc from pt calling to advise PCP of an ER visit to [facility] on 09/24/22 for surgery on the left leg. Pt advised will forward to team nurse for f/u. Please contact pt at [phone] (Yoruba) documented in this encounter Plan of Treatment Upcoming Encounters Date Type Department Care Team (Late st Contact Info) Description 12/29/2024 9:00 AM EDT Telemedicine [facility] MEDICINE [address] [place] [address] [place] [address] Geeta Dove PharmD 230 [place] [address] 01/18/2025 3:15 PM EST Office Visit [address] [address] Name, MD Ananda 230 [place] [address] 01/20/2025 9:15 AM EST Office Visit [facility] MEDICINE [address] [place] [address] Latrice Ibrahim MD [address] [place] [address] 02/05/2025 9:30 AM EST Office Visit [facility] OPTOMETRY [address] [place] [address] Natalie Davis, OD 267 [place] [address] documented as of this encounter Visit Diagnoses Not on filedocumented in this encounter Care Teams Underground Mining Section Foreman Relationship Specialty Start Date End Date Ananda Spain MD [address] [place] [address] PCP - General Family Medicine 06/01/15 Geeta Dove PharmD [address] [place] [address] Pharmacist Internal Medicine 07/21/24 documented as of this encounter
--- OUTSIDE RECORDS SUMMARY | 2024-12-07 16:42 | XMS_ITS | Encounter Summary ---
Author Organization [employer] Address 75 [facility] 7t [place] [address] Care Team Providers Care Senior Java Data Architect Name Role Phone Name, Ananda CRANDALL Primary Care Provider [phone] Geeta Dove PharmD Unavailable [phone] Encounter Details Date Type Department Care Team ([facility] Contact Info) Description 12/02/2024 Orders Only GENERIC EXTERNAL DATA [...] Team ([facility] Contact Info) Description 12/29/2024 9:00 AM EDT Telemedicine [facility] MEDICINE [address] [place] [address] Geeta Dove, LoretoD [address] [place] [address] 01/18/2025 3:15 PM EST Office Visit [address] [address] Ananda Spain MD [address] [place] [address] 01/20/2025 9:15 AM EST Office Visit [facility] MEDICINE [address] [place] [address] Latrice Ibrahim MD [address] [place] [address] 02/05/2025 9:30 AM EST Office Visit [facility] OPTOMETRY [address] [place] [address] Natalie Davis, OD [address] [place] [address] documented as of this encounter Goals Goal [...] IMMUNOGLOBULIN E Routine 12/02/2024 8:10 AM EDT documented in this encounter Results * (ABNORMAL) Immunoglobulin E (12/02/2024 8:10 AM EDT) Immunoglobulin E 373(A) <MN=170 kU/L [facility] Comment:THIS TEST WAS PERFOR MED AT:[employer] [place] [id number] GARCIA MD 12/02/2024 8:10 AM EDT 12/02/2024 8:10 AM EDT us Generic External Data Provider LAB BLOOD ORDERAB LES Final Result [facility] [address] [place] [phone] documented in this encounter Visit Diagnoses Not on filedocumented in this encounter Additional Health Concerns Assessment Noted Time PHQ-9 Depression Total Score: 5 07/16/19 11:03 AM EDT documented as of this encounter Care Teams Senior Java Data Architect Relationship Specialty Start Date End Date Name, MD Ananda 230 [place] [address] PCP - General Family Medicine 06/01/15 Geeta Dove PharmD 230 [place] [address] Pharmacist Internal Medicine 07/21/24 documented as of this encounter
--- OUTSIDE RECORDS SUMMARY | 2024-12-07 16:42 | XMS_ITS | Encounter Summary ---
Author Organization [employer] Address 75 [facility] 7t [place] [address] Care Team Providers Care Social Science Instructor Name Role Phone Name, Ananda CRANDALL Primary Care Provider Geeta Dove PharmD Unavailable [phone] Reason for Visit * Reason Comments Med Refill Encounter Details Date Type Department Care Team ([facility] st Contact Info) Description 08/23/2024 Refill [facility] MEDICINE 230 [place], [place] [phone] Name, MD Ananda 230 [place] [address] Chronic obstructive pulmonary disease, unspecified COPD type [...] Info) Description 12/29/2024 9:00 AM EDT Telemedicine [facility] MEDICINE [address] [place] [address] Geeta Dove, PharmD [address] [place] [address] 01/18/2025 3:15 PM EST Office Visit [facility] MEDICINE [address] [place] [address] Name, MD Ananda [address] [place] [address] 01/20/2025 9:15 AM EST Office Visit [facility] MEDICINE [address] [place] [address] Latrice Ibrahim MD [address] [place] [address] 02/05/2025 9:30 AM EST Office Visit [facility] OPTOMETRY [address] [place] [address] Natalie Davis, OD [address] [place] [address] documented as of this encounter Goals Goal [...] documented as of this encounter Care Teams Social Science Instructor Relationship Specialty Start Date End Date Name, MD Ananda [address] [place] [address] PCP - General Family Medicine 06/01/15 Geeta Dove PharmD [address] [place] [address] Pharmacist Internal Medicine 07/21/24 documented as of this encounter
--- OUTSIDE RECORDS SUMMARY | 2024-12-07 16:42 | XMS_ITS | Encounter Summary ---
Author Organization [employer] Address [address] [place] [address] 7t [place] [address] Care Team Providers Care Wall To Wall Carpet Installer Name Role Phone Name, Ananda CRANDALL Primary Care Provider [phone] Geeta Dove PharmD Unavailable [phone] Encounter Details Date Type Department Care Team ([facility] Contact Info) Description 08/13/2022 Abstract [facility] [address] [place] [address] [phone] Name, MD Ananda [address] [place] [phone] Social History Tobacco Use Types Packs/Day Years [...] 12/29/2024 9:00 AM EDT Telemedicine [facility] [address] [place] [address] [phone] Puia, Donte Connor [facility] [place] [address] 01/18/2025 3:15 PM EST Office Visit [facility] [address] [facility] [place] [address] Name, MD Ananda [facility] [address] 01/20/2025 9:15 AM EST Office Visit [facility] [address] [place] [phone] Latrice Ibrahim MD 230 [facility] [address] 02/05/2025 9:30 AM EST Office Visit [facility] [address] [place], [place] [phone] Natalie Davis, OD 267 [place] [address] documented as of this encounter Procedures Procedure Name Priority Date/Time Associated Diagnosis Comments COLONOSCOPY Routine 08/16/2015 1:52 PM EDT documented in this encounter Results * Colonoscopy (08/16/2015 1:52 PM EDT) [facility] Colonoscopy Normal Normal Narrative Gloria Álvarez - 08/16/2015 1:52 PM EDT Recommended 10 year follow up Historical Provider HEALTH MAINTENANCE Final Result documented in this encounter Visit Diagnoses Not on filedocumented in this encounter Care Teams Wall To Wall Carpet Installer Relationship Specialty Start Date End Date Name, MD Ananda [facility] [place] [phone] PCP - General Family Medicine 06/01/15 Geeta Dove PharmD [facility] [place] [address] Pharmacist Internal Medicine 07/21/24 documented as of this encounter
--- OUTSIDE RECORDS SUMMARY | 2024-12-07 16:42 | XMS_ITS | Encounter Summary ---
Author Organization [employer] Address 75 [facility] 7t [place] [address] Care Team Providers Care Journalist Name Role Phone Name, Ananda CRANDALL Primary Care Provider [phone] Geeta Dove PharmD Unavailable [phone] Reason for Visit * Reason Comments Med Refill Encounter Details Date Type Department Care Team ([facility] st Contact Info) Description 03/08/2024 Refill [facility] 230 [place], [place] [phone] Name, MD Ananda 230 [place] [address] Chronic obstructive pulmonary disease, unspecified COPD type [...] Upcoming Encounters Date Type Department Care Team ([facility] st Contact Info) Description 12/29/2024 9:00 AM EDT Telemedicine [facility] [address] [place] [address] Geeta Dove, PharmD [address] [place] [address] 01/18/2025 3:15 PM EST Office Visit [facility] [address] [place] [address] Ananda Spain MD 230 [place] [address] 01/20/2025 9:15 AM EST Office Visit [facility] [address] [place] [address] Latrice Ibrahim MD 230 [place] [address] 02/05/2025 9:30 AM EST Office Visit [facility] [address] [place] [address] Natalie Davis, OD 267 [place] [address] documented as of this encounter Visit Diagnoses Diagnosis Chronic obstructive pulmonary disease, unspecified COPD type (CMS/HCC) (HCC) documented in this encounter Additional Health Concerns Assessment Noted Time PHQ-9 Depression Total Score: 10 024 9:15 AM EDT documented as of this encounter Care Teams Journalist Relationship Specialty Start Date End Date Name, MD Ananda 230 [place] [address] PCP - General Family Medicine 06/01/15 Geeta Dove PharmD 230 [place] [address] Pharmacist Internal Medicine 07/21/24 documented as of this encounter
--- OUTSIDE RECORDS SUMMARY | 2024-12-07 16:42 | XMS_ITS | Encounter Summary ---
Author Organization [employer] Address [address] [facility] [address] 7t [place] [address] Care Team Providers Care Dinkey Skinner Name Role Phone Name, Ananda CRANDALL Primary Care Provider [phone] Geeta Dove PharmD Unavailable [phone] Reason for Visit * Reason Onset Date Comments case in lab 10/03/2022 Encounter Details Date Type Department Care Team ([facility] st Contact Info) Description 10/03/2022 Telephone [facility] [address] [place] [address] Kelvin aHque, LENNY 230 [place] [address] case in lab Social History Tobacco Use [...] - 10/03/2022 2:29 PM EDT Hubert from [employer] called in sttain that the soonest they can get case back in to office would be 10/10. They stated it is 5 business days and does not include drop off or merchandise pickup/receiving associate date. Confirmed with Hubert that as of yet appt has not been scheduled to return and that I would inform officeDR documented in this encounter Plan of Treatment Upcoming Encounters Date Type Department Care Team (Late st Contact Info) Description 12/29/2024 9:00 AM EDT Telemedicine [facility] [address] [place] [address] Geeta Dove, LoretoD 230 [place] [address] 01/18/2025 3:15 PM EST Office Visit [facility] 230 [place] [address] Ananda Spain MD 230 [place] [address] 01/20/2025 9:15 AM EST Office Visit [facility] [address] [place] [address] Latrice Ibrahim MD 230 [place] [address] 02/05/2025 9:30 AM EST Office Visit [facility] [address] [place] [address] Natalie Davis, OD 267 [place] [address] documented as of this encounter Visit Diagnoses Not on filedocumented in this encounter Additional Health Concerns Assessment Noted Time PHQ-9 Depression Total Score: 3 10/04/19 23 2:21 PM EDT documented as of this encounter Care Teams Dinkey Skinner Relationship Specialty Start Date End Date Ananda Spain MD 230 [place] [address] PCP - General Family Medicine 06/01/15 Geeta Dove, Donte [address] [place] [address] Pharmacist Internal Medicine 07/21/24 documented as of this encounter
--- OUTSIDE RECORDS SUMMARY | 2024-12-07 16:42 | XMS_ITS | Encounter Summary ---
Author Organization [employer] Address 75 [facility] 7t [place] [address] Care Team Providers Care Rigging Engineer Name Role Phone Name, Ananda CRANDALL Primary Care Provider [phone] Geeta Dove PharmD Unavailable [phone] Reason for Visit * Reason Comments Med Refill Encounter Details Date Type Department Care Team ([facility] st Contact Info) Description 12/11/2023 Refill [facility] 230 [place], [place] [phone] Name, MD Ananda 230 [place] [address] Type 2 diabetes mellitus without complication, unspecified whether skilled nursing insulin use ([facility]) Social History Tobacco Use [...] Info) Description 12/29/2024 9:00 AM EDT Telemedicine [facility] [address] [place] [address] Geeta Dove, PharmD [address] [place] [address] 01/18/2025 3:15 PM EST Office Visit [facility] [address] [place] [address] Ananda Spain MD [address] [place] [address] 01/20/2025 9:15 AM EST Office Visit [facility] [address] [place] [address] Latrice Ibrahim MD 230 [place] [address] 02/05/2025 9:30 AM EST Office Visit [facility] [address] [place] [address] Natalie Davis, OD [address] [place] [address] documented as of this encounter Visit Diagnoses Diagnosis Type 2 diabetes mellitus without complication, unspecified whether skilled nursing insulin use documented in this encounter Additional Health Concerns Assessment Noted Time PHQ-9 Depression Total Score: 10 024 9:15 AM EDT documented as of this encounter Care Teams Rigging Engineer Relationship Specialty Start Date End Date Name, MD Ananda 230 [place] [address] PCP - General Family Medicine 06/01/15 Geeta Dove PharmD 230 [place] [address] Pharmacist Internal Medicine 07/21/24 documented as of this encounter
--- OUTSIDE RECORDS SUMMARY | 2024-12-07 16:42 | XMS_ITS | Encounter Summary ---
Author Organization [employer] Address 75 [facility] 7t [place] [address] Care Team Providers Care Department Mgr Name Role Phone Name, Ananda CRANDALL Primary Care Provider [phone] Geeta Dove PharmD Unavailable [phone] Reason for Visit * Reason Comments Med Refill Encounter Details Date Type Department Care Team ([facility] st Contact Info) Description 02/28/2023 Refill [facility] 230 [place], [place] [phone] Name, MD Ananda 230 [place] [address] Pain of left leg Social History Tobacco [...] Info) Description 12/29/2024 9:00 AM EDT Telemedicine [facility] [address] [place] [phone] Geeta Dove, PharmD [address] [place] [address] 01/18/2025 3:15 PM EST Office Visit [facility] [address] [place] [address] Ananda Spain MD [address] [place] [address] 01/20/2025 9:15 AM EST Office Visit [facility] [address] [place] [address] Latrice Ibrahim MD [address] [place] [address] 02/05/2025 9:30 AM EST Office Visit [facility] [address] [place] [phone] Natalie Davis OD 267 [place] [address] documented as of this encounter Visit Diagnoses Diagnosis Pain of left leg documented in this encounter Additional Health Concerns Assessment Noted Time PHQ-9 Depression Total Score: 3 10/04/19 23 2:21 PM EDT documented as of this encounter Care Teams Department Mgr Relationship Specialty Start Date End Date Name, MD Ananda 230 [place], [place] [phone] PCP - General Family Medicine 06/01/15 Geeta Dove, Donte [address] [place] [address] Pharmacist Internal Medicine 07/21/24 documented as of this encounter
--- OUTSIDE RECORDS SUMMARY | 2024-12-07 16:42 | XMS_ITS | Encounter Summary ---
Author Organization [employer] Address [address] [place] [address] 7t [place] [address] Care Team Providers Care Coat Repair Inspector Name Role Phone Name, Ananda CRANDALL Primary Care Provider [phone] Geeta Dove PharmD Unavailable [phone] Encounter Details Date Type Department Care Team ([facility] Contact Info) Description 05/10/2022 Orders Only [facility] [address] [place] [address] [phone] lAis Zavala, COREY Uncomplicated opioid dependence (CMS/HCC) Social [...] Department Care Team ([facility] Contact Info) Description 12/29/2024 9:00 AM EDT Telemedicine [facility] 230 [place], [place] [phone] Geeta Dove, PharmD 230 [place], [place] [phone] 01/18/2025 3:15 PM EST Office Visit [facility] [address] [place] [address] Name, MD Ananda [address] [place] [address] 01/20/2025 9:15 AM EST Office Visit [facility] [address] [place] [address] Latrice Ibrahim MD [address] [place] [address] 02/05/2025 9:30 AM EST Office Visit [facility] [address] [place] [address] Natalie Davis, OD [address] [place] [address] documented as of this encounter Visit Diagnoses Diagnosis Uncomplicated opioid dependence (CMS/HCC) (HCC) documented in this encounter Care Teams Coat Repair Inspector Relationship Specialty Start Date End Date Name, MD Ananda [address] [place] [address] PCP - General Family Medicine 06/01/15 Geeta Dove PharmD [address] [place] [address] Pharmacist Internal Medicine 07/21/24 documented as of this encounter
--- OUTSIDE RECORDS SUMMARY | 2024-12-07 16:42 | XMS_ITS | Encounter Summary ---
Author Organization [employer] Address [address] [place] [address] 7t [place] [address] Care Team Providers Care Supervisor Uranium Processing Name Role Phone Name, Ananda CRANDALL Primary Care Provider [phone] Geeta Dove PharmD Unavailable [phone] Reason for Visit * Reason Comments Med Refill Encounter Details Date Type Department Care Team (Late Contact Info) Description 04/25/2022 Refill [facility] [address] [place] [address] [phone] Name, MD Ananda [address] [place] [address] Wheezing (Primary Dx) Social History Tobacco Use [...] 12/29/2024 9:00 AM EDT Telemedicine [facility] [address] [place] [address] [phone] Geeta Dove PharmD [address] [place] [address] 01/18/2025 3:15 PM EST Office Visit [facility] [address] [place] [phone] Name, MD Ananda [address] [place] [address] 01/20/2025 9:15 AM EST Office Visit [facility] [address] [place] [address] Latrice Ibrahim MD [address] [place] [address] 02/05/2025 9:30 AM EST Office Visit [facility] [address] [place] [address] Natalie Davis, OD [address] [place] [address] documented as of this encounter Visit Diagnoses Diagnosis Wheezing- Primary documented in this encounter Care Teams Supervisor Uranium Processing Relationship Specialty Start Date End Date Name, MD Ananda [address] [place] [address] PCP - General Family Medicine 06/01/15 Geeta Dove PharmD [address] [place] [address] Pharmacist Internal Medicine 07/21/24 documented as of this encounter
[2024-12-10 09:19] VITALS: BMI 19.4
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
[2024-12-15 10:19] VITALS: BP 143/84; PULSE 90; RESP 20; TEMP 36.9; O2SAT 97; BMI 19.6
--- NOTE | 2024-12-15 10:35 | MHC.SHP ---
Pre-Procedural Eval Section A - 24 Hr Update-Section A only Date of Service: 12/15/24 Section B - Complete if H&P > 30 days Chief Complaint: Hx of polyps Details of Present Illness: PMX COPD Smoker Opioid dependence High cholesterol Hypertension BPH History of renal cell carcinoma Varicose veins with history of venous ulcer left lower leg - healed Tubular adenoma-2015 Diabetes SURGICAL HISTORY Foot surgery - debredment of left LL ulcer Renal cryoablation Hernia repair - incisional hernia from RCC repair/nephrectomy Partial nephrectomy Colonoscopy/EGD-2015 [place]= TA Present Medications: see Short Stay Collaborative assessment Allergies: Allergies Allergy/AdvReac Type Severity Reaction Status Date / Time sitagliptin (From Maruv) AdvReac Intermediate pancreatiti Verified 11/23/24 09:19 s Review of Systems Review of Systems Comment: Ten point ROS negative Exam Exam Comment: Gen appear: No acute distress HEENT: no icterus Chest: No overt resp distress Abd: soft, nontender, nondistended Psych: Stable affect, answering questions appropriately Neuro: A/Ox3 noted to move all extremities spontaneously Ext: no peripheral edema Plan Diagnosis/Plan: Unchanged I have reviewed the history and physical and performed a pertinent physical examination on my patient. No changes have occurred unless specified. Time Spent With Patient Time: Total time managing care of this patient today ____ minutes.
[2024-12-15] MEDS: Lactated Ringers 1,000 ML 100 ML IVCONT (10:42)
[2024-12-15] MEDS: Albuterol Sulfate (0.083%) 2.5 MG/3 ML VIAL.NEB INHALE (11:35)
[2024-12-15 12:03] VITALS: BP 143/84; PULSE 102; RESP 16; TEMP 37.3; O2SAT 97
--- NOTE | 2024-12-15 12:07 | P.OPN-COLO_ITS ---
Colonoscopy Operative Note Operative Note Date of Service: 12/15/24 Narrative: Procedure: Colonoscopy Indication: Personal hx of polyps, fam hx of CRC Endoscopist: Ciara Dahl MD Anesthesia Provider: Dr Dami Diggs Anesthesia type: MAC Instrument: Olympus [id number]-H190L Consent: Indication, risks vs benefits, and alternatives were discussed with the patient who gave written informed consent to proceed. EKG, pulse, pulse oximetry and blood pressure were monitored throughout the procedure. Please see anesthesia flowsheet. Procedure: The patient was brought to the procedure room and placed in the left lateral decubitus position. IV medications were administered by the anesthesia provider in attendance. A digital rectal exam was performed which was normal. A distal attachment cap was affixed to the tip of the colonoscope which was then inserted through the anus and advanced through the colon to the sigmoid colon with solid stool occluding the entire lumen. Limitations: Poor prep. Findings: Mucosa: Solid stool in rectum and sigmoid colon precluding any meaningful visualization of underlying mucosa. Protruding lesions: * medium internal hemorrhoids without stigmata of recent bleeding. Impression: 1. Poor prep 2. Internal hemorrhoids Recommendations: - Repeat colonoscopy will be booked within the next few months.
[2024-12-15 12:18] VITALS: BP 144/82; PULSE 91; RESP 18; TEMP 36.6; O2SAT 96
== END 2024-12-15 13:02 | disposition home or self-care (01) ==
PROVIDERS: PCP Internal Medicine Geriatric Medicine; Visit Provider Internal Medicine
PROC: 0DJD8ZZ Inspection of Lower Intestinal Tract, Via Natural or Artificial Opening Endoscopic (ICD-10-PCS; CPT 45378; principal; 2024-12-15 13:00)
DX: Z12.11 Encounter for screening for malignant neoplasm of colon (principal); Z86.0101 Personal history of adenomatous and serrated colon polyps; Z80.0 Family history of malignant neoplasm of digestive organs; K64.8 Other hemorrhoids; Z53.8 Procedure and treatment not carried out for other reasons
CPT/HCPCS: G0104; J2003; J2704

== ENCOUNTER → 2024-12-15 10:15 | Outpatient (BNV) | payer OTHER, SELFPAY | PROVIDERS: PCP Internal Medicine Geriatric Medicine; Visit Provider Internal Medicine | DX: Z12.11 Encounter for screening for malignant neoplasm of colon (principal); Z86.0100 Personal history of colon polyps, unspecified; Z91.199 Patient's noncompliance with other medical treatment and regimen due to unspecified reason; K64.8 Other hemorrhoids | CPT/HCPCS: 45378 ==

== ENCOUNTER 2024-12-16 07:44 | Outpatient (AMB) | payer OTHER, SELFPAY ==
--- OUTSIDE RECORDS SUMMARY | 2024-12-16 07:50 | XMS_ITS | Data Portability ---
Author Organization [employer] [facility], [facility] Address [address] [place] [id number] Care Team Providers Care [employer] Teacher Name Role Phone HIM CCA OTHER Assessment Encounter Date Assessment Date Assessment LastModified by Organization Details LastModified Time 04/23/2024 04/23/2024 I have reviewed and agree with the assessment and plan as documented by the child care coordinator. I provided real-time medical direction for this encounter and was immediately available to provide additional phone-based assistance as needed. History as noted in EMR and by child care coordinator. I would add / emphasize: Patient seen [...] this. Patient was in agreement transported to [facility] subsequently. pallfather Not available 04/24/2024 14:02:36 Plan of Treatment Reminders Order Date Submit Date Provider Last Modified By Organization Details Last Modified Time Details Appointments None recorded. Lab rapid SARS CoV 2 Ag, QL IA, respiratory specimen [address], [phone] 5 14:47:38 rapid flu (A+B) [address], [phone] 14:47:39 Referral None recorded. Procedures None recorded. [...] Heart rate Body temperature Respiratory rate Systolic And Diastolic Provider Name and Address Organization Details Last Updated DateTime 5 87 % 87 % 104 /min 98.1 [degF] 16 /min 126/74 mm[Hg] Not Available [facility] - production 5 18:36:46 Social History None recorded. Functional Status None recorded. Mental Status None recorded. Family History Nothing Reported. Medical History No medical history recorded. Past Encounters Encounter ID Performer Location Encounter Start Date Encounter Closed Date Diagnosis/Indication Diagnosis SNOMED-CT Code Diagnosis ICD10 Code Diagnosis IMO Codes Diagnosis Note [id number] Dillon Galeano MD Main - [facility] [address] [place] [address] 04/23/2024 18:36:39 04/24/2024 20:56:44 Hypoxemia 193283468 R09.02 Health Concerns Section Related Observation LastModified by Organization Detai ls LastModified Time None Recorded Concern Status LastModified by Organization Details LastModified Time None Recorded Advance Directives Directive None Recorded Payers Insurance Date Sequence Insurance Name Policy Number Policy Tomlin Covered Member ID Tomlin Member ID Guarantor Name 04/23/2024 1 [facility] - DOS ON OR AFTER 2022 - DUAL ELIGIBLE - PENITENTIARY OPTIONS AND ONE CARE (MEDICARE REPLACEMENT/ADV ANTAGE - HMO) Hubert Rios [id number] Hubert Rios Notes Date Note Type Note Provider Name and Address Organization Details Recorded Time 04/23/2024 text/html CRC Nurse Triage Notes (Parvin Barrios - RN): Reason For Request: Patient having breathing problems. Denies: Increased work of breathing/labored with or without fever Unable to speak in full sentences without distress Discoloration of skin -cyanosis Needs to sleep sitting up, can t catch breath Shortness of breath in [...] does not report any new symptoms- [place] Chemistry Laboratory Technician Organization Information for [facility] Business Legal Name: [employer]. Address: [address] [place] [id number], Cartography Technician: Gucci VELEZ No.: [id number] Chemistry Laboratory Technician POC Test Results from [facility] - [facility] Rapid COVID antigen (18:34:09) COVID: - Attachments uploaded as part of this test result can be found under Documents section. Rapid influenza antigen (18:34:10) Flu: - Attachments uploaded as part of this test result can be found under Documents section. .................. .................. .................. .................. .................. .................. .................. ............... Chemistry Laboratory Technician Note From [facility]: Dispatched to above [...] to low 80s, HR increased to 115-120. [facility] contacted, advised of patient complaints, exam findings and test results. [facility] recommends transport to ER for further evaluation due to concerns for PE. Patient agrees with this plan. 911 called, [facility] and [facility] responded. Verbal report given to Jose Enrique Chemistry Laboratory Technician, took over patient care, will transport to [facility]. Sc8 clear. EOR. .................. .................. .................. .................. .................. .................. .................. ............... [facility] Consulted: Dillon Galeano .................. .................. .................. .................. .................. .................. .................. ............... Disposition: Fulfilled Dillon Galeano MD [address] [place] [address],[address], [place], [address], [employer] 04/24/2024 14:02:45
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
== END 2024-12-16 08:34 | disposition home or self-care (01) ==
LOC: HO.ENCR 07:45
PROVIDERS: PCP Internal Medicine Geriatric Medicine; Visit Provider Registered Nurse Diabetes Educator
DX: E13.9 Other specified diabetes mellitus without complications (principal)

== ENCOUNTER → 2024-12-16 07:44 | Outpatient (BNVA) | payer OTHER, SELFPAY | PROVIDERS: PCP Internal Medicine Geriatric Medicine; Visit Provider Registered Nurse Diabetes Educator | DX: E13.9 Other specified diabetes mellitus without complications (principal); Z79.4 Long term (current) use of insulin | CPT/HCPCS: 99211 ==

== ENCOUNTER 2024-12-31 07:52 | Outpatient (AMB) | payer OTHER, SELFPAY ==
--- OUTSIDE RECORDS SUMMARY | 2024-12-29 09:00 | XMS_ITS | Encounter Summary ---
Author Organization [employer] Address [address] [facility] 7t [place] [address] Care Team Providers Care Gradall Operator Name Role Phone Name, Ananda CRANDALL Primary Care Provider Geeta Dove PharmD Unavailable Reason for Visit * Consultation (Routine) - Pending Review Specialty Diagnoses / Procedures Referred By Contac t Referred To Contact Pharmacy Diagnoses Tobacco dependence Name, MD Ananda [address] [place] [address] Phone: tel: fax: Referral ID Status Reason Start Date Expiration Date Visits Requested Visits Authorized [id number] Pending Review Consult and Treat 06/10/2024 06/10/2025 6 6 Encounter Details Date Type Department Care Team ([facility] Contact Info) Description 12/29/2024 9:00 AM EDT Telemedicine [facility] 230 [place], [place] [phone] Geeta Dove, PharmD [address] [place], [place] [phone] Tobacco dependence (Primary Dx) Social History Tobacco [...] Progress Notes * Geeta Dove PharmD - 12/29/2024 9:00 AM EDT Pharmacy Consult Visit Type: CDTM (referral expires 06/2025) Pharmacist: Geeta Dove PharmD Hubert Rios is a 59 y.o. year old patient here for follow-up visit completed over the phone. Subjective History: General / Intake Allergies: has no known allergies. Read/Write: Yes, in Scottish (but limited per patient report) Recent Hospitalizations: No Social History as reported by patient: Tobacco: Current, see discussion below Alcohol: Denies Caffeine: Current, 1 cup of coffee daily QAM Illicit drugs: Denies; tx with Suboxone via [facility] OBAT program x15 years Adherence / patient self-management Takes from vials Denies missed doses or purposeful omission of any medication d/t suspected PAULA Refill history demonstrates adherence. 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 Regardless, he is followed by [facility] endocrinology & is not a candidate for [...] mg daily w/o PAULA. Currently smoking 1/2 cigarette/day. Tobacco use is associated with AM routine & coffee intake.As discussed prior, patient reports trying to avoid coffee or substitute another morning beverage to help to break this routine. Comments COPD sx & home oxygen requirements are improved; he is very pleased with this. Discussed 11/26/24: Reports ongoing adherence to Chantix 1 mg daily w/o PAULA. Continues to smoke 1/2 cigarette per day associated with AM coffee. COPD sx continue to be well controlled & he is very pleased with this. Discussed today 12/28/24: Reports ongoing adherence to Chantix 1 mg daily & denies PAULA including dream disturbance, exacerbation of BH symptoms, etc. States he did change his AM routine; switched to tea from coffee and can now go 5-7 days w/o any tobacco use. Reports he has completed meds prescribed at [facility] 12/17 for COPD exacerbation and is feeling well. Continues on his inhalers as prescribed. Objective History: Treatment history/considerations: PMH: diabetes, HTN, [...] readings: BP Readings from Last 4 Encounters: 12/17/24 (!) 148/92 10/16/24 121/81 08/28/24 129/82 08/18/24 (!) 144/80 Pulse Readings from Last 4 Encounters: 12/17/24 99 10/16/24 82 08/28/24 93 08/18/24 100 Immunizations Due: Not discussed today (televisit). Revisit at next in person follow up; patient had previously been agreeable 08/18 but admin deferred at that time d/t acute illness. Influenza (seasonal) Shingrix series (age > 50 yo) - overdue for dose #2 of 2 to complete series Tetanus (q10 yrs, last 08/2014) - due Preferred Pharmacy: [facility] - [address] [phone] Assessment/Plan: Smoking Cessation (Stage: Action) Pharmacotherapy: Varenicline 1 mg twice daily for 12-24 total weeks of therapy Goals of therapy per the [place] [facility] Treating Tobacco Use and Dependence Clinical Practice [...] Care Team (Late st Contact Info) Description 01/18/2025 3:15 PM EST Office Visit [facility] MEDICINE [address] [place] [address] Name, MD Ananda [address] [place] [address] 01/20/2025 9:15 AM EST Office Visit [address] [address] Latrice Ibrahim MD [address] [place] [address] 01/27/2025 10:00 AM EST Telemedicine [facility] MEDICINE [address] [place] [address] Geeat Dove PharmD [address] [place] [address] 02/05/2025 9:30 AM EST Office Visit [facility] OPTOMETRY [address] [place] [address] Natalie Davis, OD [address] [place] [address] documented as of this encounter Goals Goal [...] documented as of this encounter Care Teams Gradall Operator Relationship Specialty Start Date End Date Name, MD Ananda [address] [place] [address] PCP - General Family Medicine 06/01/15 Geeta Dove PharmD [address] [place] [address] Pharmacist Internal Medicine 07/21/24 documented as of this encounter
--- OUTSIDE RECORDS SUMMARY | 2024-12-31 07:57 | XMS_ITS | Encounter Summary ---
Author Organization [employer] Address [address] [place] [address] 7t [place] [address] Care Team Providers Care Meteorologist In Charge Name Role Phone Ananda Spain MD Primary Care Provider [phone] Geeta Dove PharmD Unavailable [phone] Reason for Visit * Reason Comments Med Refill Encounter Details Date Type Department Care Team (Late Contact Info) Description 04/25/2022 Refill [facility] [address] [place] [address] [phone] NameAnanda MD [address] [place] [address] Wheezing (Primary Dx) Social History Tobacco Use [...] Upcoming Encounters Date Type Department Care Team ([facility] Contact Info) Description 01/18/2025 3:15 PM EST Office Visit [facility] [address] [place] [address] [phone] Ananda Spain, MD [address] [place] [address] 01/20/2025 9:15 AM EST Office Visit [facility] [address] [place] [address] Latrice Ibrahim MD [address] [place] [address] 01/27/2025 10:00 AM EST Telemedicine [facility] [address] [place] [address] Geeta Dove PharmD [address] [place] [address] 02/05/2025 9:30 AM EST Office Visit [facility] OPTOMETRY [address] [place] [address] Natalie Davis OD [address] [place] [address] documented as of this encounter Visit Diagnoses Diagnosis Wheezing- Primary documented in this encounter Care Teams Meteorologist In Charge Relationship Specialty Start Date End Date Name, MD Ananda [address] [place] [address] PCP - General Family Medicine 06/01/15 Geeta Dove PharmD [address] [place] [address] Pharmacist Internal Medicine 07/21/24 documented as of this encounter
--- OUTSIDE RECORDS SUMMARY | 2024-12-31 07:57 | XMS_ITS | Encounter Summary ---
Author Organization [employer] Address [address] [facility] [address] 7t [place] [address] Care Team Providers Care Architectural Wood Model Maker Name Role Phone Name, Ananda CRANDALL Primary Care Provider Geeta Dove PharmD Unavailable [phone] Reason for Visit * Reason Onset Date Comments case in lab 10/03/2022 Encounter Details Date Type Department Care Team ([facility] st Contact Info) Description 10/03/2022 Telephone [facility] [address] [place] [address] Kelvin Haque, LENNY 230 [place] [address] case in lab Social History Tobacco Use [...] down Not at all 10/03/2022 2:21 PM Jose Elias Klineen Trouble concentrating on thi ngs, such as reading the newspaper or watching television Not at all 10/03/2022 2:21 PM Almita Kline Moving or speaking so slowly that other people could have noticed? Or the opposite - being so fidgety or restless that you have been moving around a lot more than usual. Not at all 10/03/2022 2:21 PM Almita Kline Thoughts that you would be b liliam off or hurting yourself in some way Not at all 10/03/2022 2:21 PM Almita Kline Patient Health Questionnaire -9 Score 3 10/03/2022 2:21 PM Almita Kline documented as of this encounter Miscellaneous Notes * Telephone Encounter - Joanie Gonzalez - 10/03/2022 2:29 PM EDT Hubert from [employer] called in sttain that the soonest they can get case back in to office would be 10/10. They stated it is 5 business days and does not include drop off or waste picker date. Confirmed with Hubert that as of yet appt has not been scheduled to return and that I would inform officeDR documented in this encounter Plan of Treatment Upcoming Encounters Date Type Department Care Team (Late st Contact Info) Description 01/18/2025 3:15 PM EST Office Visit [facility] MEDICINE [address] [place] [address] Ananda Spain MD 230 [place] [address] 01/20/2025 9:15 AM EST Office Visit [facility] MEDICINE [address] [place] [address] Latrice Ibrahim MD [address] [place] [address] 01/27/2025 10:00 AM EST Telemedicine [facility] MEDICINE [address] [place] [address] Geeta Dove, PharmD [address] [place] [address] 02/05/2025 9:30 AM EST Office Visit [facility] OPTOMETRY [address] [place] [address] TarNatalie elizabeth, OD [address] [place] [address] documented as of this encounter Visit Diagnoses Not on filedocumented in this encounter Additional Health Concerns Assessment Noted Time PHQ-9 Depression Total Score: 3 10/04/19 23 2:21 PM EDT documented as of this encounter Care Teams Architectural Wood Model Maker Relationship Specialty Start Date End Date Ananda Spain MD [address] [place] [address] PCP - General Family Medicine 06/01/15 Geeta Dove, Donte [address] [place] [address] Pharmacist Internal Medicine 07/21/24 documented as of this encounter
--- OUTSIDE RECORDS SUMMARY | 2024-12-31 07:57 | XMS_ITS | Encounter Summary ---
Author Organization [employer] Address 75 [facility] 7t [place] [address] Care Team Providers Care Scallop Raker Name Role Phone Name, Ananda CRANDALL Primary Care Provider [phone] Geeta Dove PharmD Unavailable [phone] Reason for Visit * Reason Comments Med Refill Encounter Details Date Type Department Care Team ([facility] st Contact Info) Description 12/11/2023 Refill [facility] MEDICINE 230 [place], [place] [phone] Name, MD Ananda [address] [place] [address] Type 2 diabetes mellitus without complication, unspecified whether intermodal owner operator truck driver insulin use ([facility]) Social History Tobacco Use [...] Description 01/18/2025 3:15 PM EST Office Visit [facility] MEDICINE [address] [place] [address] Ananda Spain MD [address] [place] [address] 01/20/2025 9:15 AM EST Office Visit [facility] MEDICINE [address] [place] [address] Latrice Ibrahim MD [address] [place] [address] 01/27/2025 10:00 AM EST Telemedicine [facility] MEDICINE [address] [place] [address] Geeta Dove, PharmD [address] [place] [address] 02/05/2025 9:30 AM EST Office Visit [facility] OPTOMETRY [address] [place] [address] Natalie Davis, OD [address] [place] [address] documented as of this encounter Visit Diagnoses Diagnosis Type 2 diabetes mellitus without complication, unspecified whether fdc insulin use documented in this encounter Additional Health Concerns Assessment Noted Time PHQ-9 Depression Total Score: 10 024 9:15 AM EDT documented as of this encounter Care Teams Scallop Raker Relationship Specialty Start Date End Date Name, MD Ananda [address] [place] [address] PCP - General Family Medicine 06/01/15 Geeta Dove PharmD [address] [place] [address] Pharmacist Internal Medicine 07/21/24 documented as of this encounter
--- OUTSIDE RECORDS SUMMARY | 2024-12-31 07:57 | XMS_ITS | Encounter Summary ---
Author Organization [employer] Address [address] [facility] [address] 7t [place] [address] Care Team Providers Care Aviation Operations Specialist Name Role Phone Name, Ananda CRANDALL Primary Care Provider [phone] Geeta Dove PharmD Unavailable [phone] Reason for Visit * Reason Comments Med Refill Encounter Details Date Type Department Care Team ([facility] st Contact Info) Description 09/19/[address] [facility] PEDS [address] [place], [place] [phone] Name, MD Ananda [address] [place] [address] Pain of left leg Social History Tobacco [...] Description 01/18/2025 3:15 PM EST Office Visit [facility] MEDICINE [address] [place] [address] Name, MD Ananda [address] [place] [address] 01/20/2025 9:15 AM EST Office Visit [facility] MEDICINE [address] [place] [address] Latrice Ibrahim MD [address] [place] [address] 01/27/2025 10:00 AM EST Telemedicine [facility] MEDICINE [address] [place] [address] Geeta Dove, PharmD [address] [place] [address] 02/05/2025 9:30 AM EST Office Visit [facility] OPTOMETRY [address] [place] [address] Natalie Davis, OD [address] [place] [address] documented as of this encounter Visit Diagnoses Diagnosis Pain of left leg documented in this encounter Additional Health Concerns Assessment Noted Time PHQ-9 Depression Total Score: 10 024 9:15 AM EDT documented as of this encounter Care Teams Aviation Operations Specialist Relationship Specialty Start Date End Date Name, MD Ananda [address] [place] [address] PCP - General Family Medicine 06/01/15 Geeta Dove PharmD [address] [place] [address] Pharmacist Internal Medicine 07/21/24 documented as of this encounter
--- OUTSIDE RECORDS SUMMARY | 2024-12-31 07:57 | XMS_ITS | Encounter Summary ---
Author Organization [employer] Address [address] [facility] 7t [place] [address] Care Team Providers Care Fisher Terrapin Name Role Phone Name, Ananda CRANDALL Primary Care Provider [phone] Geeta Dove PharmD Unavailable [phone] Reason for Visit * Reason Onset Date Comments Durable Medical Equipment 09/18/2022 Encounter Details Date Type Department Care Team ([facility] st Contact Info) Description 09/18/2022 Telephone [facility] 230 [place], [place] [phone] Name, MD Ananda 230 [place] [address] Durable Medical Equipment Social History Tobacco Use [...] 1:49 PM EDT Incoming call from [facility] regarding message below. [facility] states they have no record of pt ever going to their offices and getting PT. Unsure what next steps should be at this point. * Telephone Encounter - Christy Finn RN - 09/21/2022 1:39 PM EDT TC X1 to [facility] [phone] regarding message below. LVM to return call to nurses. * Telephone Encounter - Lauren Walsh - 09/20/2022 3:14 PM EDT Tc from patient returning call back, regarding message below. Patient states he's going to PT in [facility] [address] [place] [address] [place] [address] Dr. Mcdaniel. * Telephone Encounter - Christy [...] Description 01/18/2025 3:15 PM EST Office Visit [facility] MED[facility]INE [address] [place] [address] Name, MD Ananda [address] [place] [address] [place] [address] 01/20/2025 9:15 AM EST Office Visit [facility] MEDICINE [address] [place] [address] [place] [address] Latrice Ibrahim MD [address] [place] [address] 01/27/2025 10:00 AM EST Telemedicine [facility] [address] [place] [address] Geeta Dove PharmD [address] [place] [address] 02/05/2025 9:30 AM EST Office Visit [facility] OPTOMETRY [address] [place] [address] Natalie Davis, OD [address] [place] [address] documented as of this encounter Visit Diagnoses Not on filedocumented in this encounter Care Teams Fisher Terrapin Relationship Specialty Start Date End Date Name, MD Ananda [address] [place] [address] [place] [address] PCP - General Family Medicine 06/01/15 Geeta Dove PharmD [address] [place] [address] Pharmacist Internal Medicine 07/21/24 documented as of this encounter
--- OUTSIDE RECORDS SUMMARY | 2024-12-31 07:57 | XMS_ITS | Encounter Summary ---
Author Organization [employer] Address [address] [facility] 7t [place] [address] Care Team Providers Care Flake Drier Name Role Phone Ananda Spain MD Primary Care Provider [phone] Geeta Dove PharmD Unavailable [phone] Reason for Visit * Reason Onset Date Comments ER Follow-up 09/26/2022 Encounter Details Date Type Department Care Team ([facility] st Contact Info) Description 09/26/2022 Telephone [facility] MEDICINE 230 [place], [place] [phone] Name, MD Ananda 230 [place] [address] ER Follow-up Social History Tobacco Use Types [...] 10:24 AM EDT T/c to pt. Through [employer] id - [id number] for below message, pt. 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 [facility] hours are reviewed. * Telephone Encounter - Hawa Morales - 10/01/2022 9:35 AM EDT Tc from pt returning call regarding message below. Please contact pt at [phone] (kosovan speaker) * Telephone Encounter - Em Leblanc RN - 09/27/2022 3:29 PM EDT T/C to pt. On [phone] through [employer] id - [id number] for status check and to schedule follow up apt. No answer. LVM to call back on [phone]. * Telephone Encounter - Netta Alvares - 09/26/2022 11:04 AM EDT Tc from pt calling to advise PCP of an ER visit to [facility] on 09/24/22 for surgery on the left leg. Pt advised will forward to team nurse for f/u. Please contact pt at [phone] (Estonian) documented in this encounter Plan of Treatment Upcoming Encounters Date Type Department Care Team (Late st Contact Info) Description 01/18/2025 3:15 PM EST Office Visit [facility] 230 [facility] [place] [address] Name, MD Ananda [address] [place] [address] 01/20/2025 9:15 AM EST Office Visit [facility] MED[facility]INE [address] [place] [address] [place] [address] Latrice Ibrahim MD 230 [place] [address] 01/27/2025 10:00 AM EST Telemedicine [facility] MEDICINE [address] [place] [address] [place] [address] Geeta Dove PharmD [address] [place], [place] [address] [address] 02/05/2025 9:30 AM EST Office Visit [facility] OPTOMETRY [address] [place] [address] Natalie Davis, OD [address] [place] [address] documented as of this encounter Visit Diagnoses Not on filedocumented in this encounter Care Teams Flake Drier Relationship Specialty Start Date End Date Name, MD Ananda [facility] [place] [address] PCP - General Family Medicine 06/01/15 Geeta Dove PharmD [address] [place], [place] [address] [facility] [place] [address] Pharmacist Internal Medicine 07/21/24 documented as of this encounter
--- OUTSIDE RECORDS SUMMARY | 2024-12-31 07:57 | XMS_ITS | Encounter Summary ---
Author Organization [employer] Address [address] [facility] 7t [place] [address] Care Team Providers Care Asset Protection Officer Name Role Phone Name, Ananda CRANDALL Primary Care Provider [phone] Geeta Dove PharmD Unavailable [phone] Reason for Visit * Reason Onset Date Comments Durable Medical Equipment 06/08/2022 Encounter Details Date Type Department Care Team ([facility] st Contact Info) Description 06/08/2022 Telephone [facility] [address] [place], [place] [phone] Name, MD Ananda [address] [place] [address] Durable Medical Equipment Social History Tobacco Use [...] unable to get a hold of sales and catering coordinator and would like to know if PCP can send script directly to [facility] . Please contact at [phone] * Telephone Encounter - Arleen Ramirez - 06/11/2022 11:28 AM EDT TC to patient and informed him to contact his personal care attendant as a script for a recliner was emailed to her previously. Patient understood and agreed with plan. * Telephone Encounter - Darian Joiner - 06/08/2022 4:29 PM EDT Tc from pt requesting a script for a recliner chair to be send to [facility] please contact pt at [phone] documented in this encounter Plan of Treatment Upcoming Encounters Date Type Department Care Team (Late st Contact Info) Description 01/18/2025 3:15 PM EST Office Visit [facility] [address] [place] [address] Ananda Spain MD [address] [place] [address] 01/20/2025 9:15 AM EST Office Visit [facility] [address] [place] [address] Latrice Ibrahim MD [address] [place] [address] 01/27/2025 10:00 AM EST Telemedicine [facility] [address] [place] [address] Geeta Dove, Donte [address] [place] [address] 02/05/2025 9:30 AM EST Office Visit [facility] [address] [place] [address] Natalie Davis, OD [address] [place] [address] documented as of this encounter Visit Diagnoses Not on filedocumented in this encounter Care Teams Asset Protection Officer Relationship Specialty Start Date End Date Name, MD Ananda [address] [place] [address] PCP - General Family Medicine 06/01/15 Geeta Dove, Donte [address] [place] [address] Pharmacist Internal Medicine 07/21/24 documented as of this encounter
--- OUTSIDE RECORDS SUMMARY | 2024-12-31 07:57 | XMS_ITS | Encounter Summary ---
Author Organization [employer] Address [address] [place] [address] 7t [place] [address] Care Team Providers Care Supply Chain Manager Name Role Phone Name, Ananda CRANDALL Primary Care Provider Geeta Dove PharmD Unavailable [phone] Encounter Details Date Type Department Care Team ([facility] Contact Info) Description 08/13/2022 Abstract [facility] MEDICINE [address] [place] [address] [phone] NameAnanda MD [address] [place] [address] Social History Tobacco Use Types Packs/Day Years [...] Encounters Date Type Department Care Team ([facility] Contact Info) Description 01/18/2025 3:15 PM EST Office Visit [facility] MEDICINE [address] [place] [address] [phone] Ananda Spain MD [address] [place] [address], [place] [address] 01/20/2025 9:15 AM EST Office Visit [facility] MEDICINE [address] [facility] [place] [address] Latrice Ibrahim MD [address] [facility] [place] [address] 01/27/2025 10:00 AM EST Telemedicine [facility] MED[facility]INE [address] [facility] [place] [address] Geeta Dove PharmD [address] [facility] [place] [address] 02/05/2025 9:30 AM EST Office Visit [facility] OPTOMETRY [address] [place] [address] Natalie Davis, OD [address] [place] [address] documented as of this encounter Procedures Procedure Name Priority Date/Time Associated Diagnosis Comments COLONOSCOPY Routine 08/16/2015 1:52 PM EDT documented in this encounter Results * Colonoscopy (08/16/2015 1:52 PM EDT) [facility] Signature Colonoscopy Normal Normal Narrative Gloria Álvarez - 08/16/2015 1:52 PM EDT Recommended 10 year follow up Historical Provider HEALTH MAINTENANCE Final Result documented in this encounter Visit Diagnoses Not on filedocumented in this encounter Care Teams Supply Chain Manager Relationship Specialty Start Date End Date Name[place] [address] PCP - General Family Medicine 06/01/15 Geeta Dove PharmD [address] [facility] [place] [address] Pharmacist Internal Medicine 07/21/24 documented as of this encounter
--- OUTSIDE RECORDS SUMMARY | 2024-12-31 07:57 | XMS_ITS | Data Portability ---
Author Organization [employer] [facility], [facility] Address [address] [place] [phone] Care Team Providers Care Pomologist Name Role Phone HIM CCA OTHER Assessment Encounter Date Assessment Date Assessment LastModified by Organization Details LastModified Time 04/23/2024 04/23/2024 I have reviewed and agree with the assessment and plan as documented by the chairman of the board. I provided real-time medical direction for this encounter and was immediately available to provide additional phone-based assistance as needed. History as noted in EMR and by chairman of the board. I would add / emphasize: Patient seen [...] this. Patient was in agreement transported to [facility] subsequently. pallfather Not available 04/24/2024 14:02:36 Plan of Treatment Reminders Order Date Submit Date Provider Last Modified By Organization Details Last Modified Time Details Appointments None recorded. Lab rapid SARS CoV 2 Ag, QL [place], respiratory specimen [address], [id number] 5 14:47:38 rapid flu (A+B) [address], [id number] 14:47:39 Referral None recorded. Procedures None recorded. [...] ICD10 Code Diagnosis IMO Codes Diagnosis Note [id number] Dillon Galeano MD Main - instED [address] [place] [address] 04/23/2024 18:36:39 04/24/2024 20:56:44 Hypoxemia [id number] R09.02 Health Concerns Section Related Observation LastModified by Organization Detai ls LastModified Time None Recorded Concern Status LastModified by Organization Details LastModified Time None Recorded Advance Directives Directive None Recorded Payers Insurance Date Sequence Insurance Name Policy Number Policy Tomlin Covered Member ID Tomlin Member ID Guarantor Name 04/23/2024 1 [facility] - DOS ON OR AFTER 2022 - DUAL ELIGIBLE - [employer]DC OPTIONS AND ONE CARE (MEDICARE REPLACEMENT/ADV ANTAGE - HMO) Hubert Rios [id number] Hubert Rios Notes Date Note Type Note [...] does not report any new symptoms- [place] Christmas Tree Farm Manager Organization Information for [employer] Business Legal Name: [employer]. Address: [address] [place] [address], Car Repair Supervisor: Gucci VELEZ No.: [id number] Christmas Tree Farm Manager POC Test Results from [facility] - [facility] Rapid COVID antigen (18:34:09) COVID: - Attachments uploaded as part of this test result can be found under Documents section. Rapid influenza antigen (18:34:10) Flu: - Attachments uploaded as part of this test result can be found under Documents section. .................. .................. .................. .................. .................. .................. .................. ............... Christmas Tree Farm Manager Note From [facility]: Dispatched to [...] 80s, HR increased to 115-120. [facility] contacted, advised of patient complaints, exam findings and test results. [facility] recommends transport to ER for further evaluation due to concerns for PE. Patient agrees with this plan. 911 called, [facility] and [facility] responded. Verbal report given to Jose Enrique Christmas Tree Farm Manager, took over patient care, will transport to [facility]. Sc8 clear. EOR. .................. .................. .................. .................. .................. .................. .................. ............... [facility] Consulted: Dillon Galeano .................. .................. .................. .................. .................. .................. .................. ............... Disposition: Fulfilled Dillon Galeano MD [address] [place] [address],[address], [place], [address], [employer] App - [place] 04/24/2024 14:02:45
--- OUTSIDE RECORDS SUMMARY | 2024-12-31 07:57 | XMS_ITS | Encounter Summary ---
Author Organization [employer] Address [address] [place] [address] 7t [place] [address] Care Team Providers Care Jackhammer Operator Name Role Phone Name, Ananda CRANDALL Primary Care Provider [phone] Geeta Dove PharmD Unavailable [phone] Encounter Details Date Type Department Care Team (Latest Contact Info) Description 01/09/2021 Abstract [facility] CONVERSIONS Dental, Provider, DDS Social History [...] Care Team ( st Contact Info) Description 01/18/2025 3:15 PM EST Office Visit [facility] MEDICINE [address] [place] [address] Name, MD Ananda [address] [place] [address] 01/20/2025 9:15 AM EST Office Visit [facility] MEDICINE [address] [place] [address] Latrice Ibrahim MD [address] [place] [address] 01/27/2025 10:00 AM EST Telemedicine [facility] MEDICINE [address] [place] [address] Geeta Dove PharmD [address] [place] [address] 02/05/2025 9:30 AM EST Office Visit [facility] OPT[facility] [address] [place], [place] [phone] Griseldaclara Natalie, OD [address] [place] [address] documented as of this encounter Visit Diagnoses Not on filedocumented in this encounter Care Teams Jackhammer Operator Relationship Specialty Start Date End Date Name, MD Ananda [address] [place], [place] [phone] PCP - General Family Medicine 06/01/15 Geeta Dove, Donte [address] [place] [address] Pharmacist Internal Medicine 07/21/24 documented as of this encounter
--- OUTSIDE RECORDS SUMMARY | 2024-12-31 07:57 | XMS_ITS | Encounter Summary ---
Author Organization [employer] Address [address] [place] [address] 7t [place] [address] Care Team Providers Care Layboy Operator Name Role Phone Name, Ananda CRANDALL Primary Care Provider [phone] Geeta Dove PharmD Unavailable [phone] Encounter Details Date Type Department Care Team (Latest Contact Info) Description 01/06/2019 Abstract [facility] CONVERSIONS Dental, Provider, DDS Social History [...] Description 01/18/2025 3:15 PM EST Office Visit [facility] MEDICINE [address] [place] [address] Name, MD Ananda [address] [place] [address] 01/20/2025 9:15 AM EST Office Visit [facility] MEDICINE [address] [place] [address] Latrice Ibrahim MD [address] [place] [address] 01/27/2025 10:00 AM EST Telemedicine [facility] MEDICINE [address] [place] [address] Geeta Dove PharmD [address] [place] [address] 02/05/2025 9:30 AM EST Office Visit [facility] OPTOMETRY [address] [place], [place] [phone] Griseldaclara Natalie, OD [address] [place] [address] documented as of this encounter Visit Diagnoses Not on filedocumented in this encounter Care Teams Layboy Operator Relationship Specialty Start Date End Date Name, MD Ananda [address] [place] [address] [phone] PCP - General Family Medicine 06/01/15 Geeta Dove, Donte [address] [place] [phone] Pharmacist Internal Medicine 07/21/24 documented as of this encounter
--- OUTSIDE RECORDS SUMMARY | 2024-12-31 07:57 | XMS_ITS | Encounter Summary ---
Author Organization [employer] Address [address] [facility] 7t [place] [address] Care Team Providers Care Returned Item Clerk Name Role Phone Name, Ananda CRANDALL Primary Care Provider [phone] Geeta Dove PharmD Unavailable [phone] Reason for Visit * Reason Comments Med Refill Encounter Details Date Type Department Care Team ([facility] st Contact Info) Description 08/23/2024 Refill [facility] [address] [place], [place] [phone] Name, MD Ananda [address] [place] [address] Chronic obstructive pulmonary disease, unspecified COPD type [...] 3:15 PM EST Office Visit [facility] [address] [place] [address] Ananda Spain MD [address] [place] [address] 01/20/2025 9:15 AM EST Office Visit [facility] [address] [place] [address] Latrice Ibrahim MD [address] [place] [address] 01/27/2025 10:00 AM EST Telemedicine [facility] [address] [place] [address] Geeta Dove, Donte [address] [place] [address] 02/05/2025 9:30 AM EST Office Visit [facility] [address] [place] [address] Natalie Davis OD [address] [place] [address] documented as of this encounter Goals Goal [...] documented as of this encounter Care Teams Returned Item Clerk Relationship Specialty Start Date End Date Name, MD Ananda [address] [place] [address] PCP - General Family Medicine 06/01/15 Geeta Dove PharmD [address] [place] [address] Pharmacist Internal Medicine 07/21/24 documented as of this encounter
--- OUTSIDE RECORDS SUMMARY | 2024-12-31 07:57 | XMS_ITS | Encounter Summary ---
Author Organization [employer] Address [address] [facility] 7t [place] [address] Care Team Providers Care Web Solutions Architect Name Role Phone Name, Ananda CRANDALL Primary Care Provider [phone] Geeta Dove PharmD Unavailable [phone] Reason for Visit * Reason Onset Date Comments Appointment 09/06/2022 Encounter Details Date Type Department Care Team ([facility] st Contact Info) Description 09/06/2022 Telephone [facility] [address] [place] [address] Kelvin Haque DDS [address] [place], [place] [phone] Appointment Social History Tobacco Use Types Packs/Day [...] Description 01/18/2025 3:15 PM EST Office Visit [facility]INE [address] [place] [address] Name, MD Ananda [address] [place] [address] 01/20/2025 9:15 AM EST Office Visit [address] [address] Latrice Ibrahim MD [address] [place] [address] 01/27/2025 10:00 AM EST Telemedicine [facility] MEDICINE [address] [place] [address] Geeta Dove PharmD [address] [place] [address] 02/05/2025 9:30 AM EST Office Visit [facility] [address] [place] [address] Natalie Davis, OD [address] [place] [address] documented as of this encounter Visit Diagnoses Not on filedocumented in this encounter Care Teams Web Solutions Architect Relationship Specialty Start Date End Date Name, MD Ananda [address] [place] [address] PCP - General Family Medicine 06/01/15 Geeta Dove, PharmD [address] [place] [address] Pharmacist Internal Medicine 07/21/24 documented as of this encounter
--- OUTSIDE RECORDS SUMMARY | 2024-12-31 07:57 | XMS_ITS | Encounter Summary ---
Author Organization [employer] Address [address] [facility] 7t [place] [address] Care Team Providers Care Poultry Process Worker Name Role Phone Name, Ananda CRANDALL Primary Care Provider [phone] Geeta Dove PharmD Unavailable [phone] Reason for Visit * Reason Comments Med Refill Encounter Details Date Type Department Care Team ([facility] Contact Info) Description 06/07/2022 Refill [facility] [address] [place] [address] [phone] Sebastián Graves MD [address] [place] [phone] Pain of left leg Social History Tobacco [...] Upcoming Encounters Date Type Department Care Team ([facility] Contact Info) Description 01/18/2025 3:15 PM EST Office Visit [facility] MED[facility]INE [address] [place] [address] [phone] Name, MD Ananda [address] [place] [address] 01/20/2025 9:15 AM EST Office Visit [facility] MEDICINE [address] [place] [address] Latrice Ibrahim MD [address] [place] [address] 01/27/2025 10:00 AM EST Telemedicine [facility] MEDICINE [address] [place] [address] Geeta Dove PharmD [address] [place] [address] 02/05/2025 9:30 AM EST Office Visit [facility] [address] [place] [address] Natalie Davis OD [address] [place] [address] documented as of this encounter Visit Diagnoses Diagnosis Pain of left leg documented in this encounter Care Teams Poultry Process Worker Relationship Specialty Start Date End Date Name, MD Ananda [address] [place] [address] PCP - General Family Medicine 06/01/15 Geeta Dove PharmD [address] [place] [address] Pharmacist Internal Medicine 07/21/24 documented as of this encounter
--- OUTSIDE RECORDS SUMMARY | 2024-12-31 07:57 | XMS_ITS | Clinical Summary ---
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 Active Misc. Devices (Pulse Oximeter For Finger) miscIndications :COPD exacerbation (CMS/HCC) ([facility]) 1 each 2 times daily. Call [facility] if consistently < 95% 1 each 023 Active clonazePAM (KlonoPIN) 1 MG tablet Take 1 mg by mouth 2 times daily. 023 Active Lancets (OneTouch Delica Plus [id number]) misc TEST BLOOD SUGAR THREE TIMES DAILY [...] mellitus type 2 in nonobese ([facility]) INJECT SUBCUTANEOUSLY THREE TIMES DAILY PER SLIDING SCALE: BLOOD SUGAR < 200: DO NOT USE, 201-250 = 2 UNITS, 251-300 = 4U, 301-350 = 8U, > 351 = 10U 15 mL 4 024 Active busPIRone (Buspar) 15 MG tablet Take 15 mg by mouth 2 times daily. 024 Active Tresiba FlexTouch 100 UNIT/ML injection INJECT 8 UNITS SUBCUTANEOUSLY EVERY DAY Active glucose 4 g chewable tablet CHEW 4 TABLETS BY MOUTH EVERY 15 MINUTES NEEDED FOR LOW BLOOD SUGAR UNTIL SYMPTOMS RESOLVED OR LOW BLOOD SUGAR IS RESOLVED Active albuterol (Ventolin HFA) 108 (90 Base) MCG/ACT inhalerIndicati ons:Chronic obstructive pulmonary disease, unspecified COPD type (CMS/HCC) ([facility]) INHALE 2 PUFFS BY MOUTH EVERY 4 TO 6 HOURS NEEDED 18 g 5 025 Active Trelegy Ellipta 200-62.5-25 MCG/ACT aerosol powder Inhale 1 puff 1 (one) time each day at the same time. Active BD Pen Needle Pham U/F 32G X 4 MM miscIndications :Type 2 diabetes mellitus without complication, unspecified whether alf insulin use USE DIRECTED FOUR TIMES DAILY 100 each 5 025 Active montelukast (Singulair) 10 MG tabletIndicatio ns:Seasonal allergic rhinitis, unspecified trigger Take 1 tablet (10 mg) by mouth at bedtime. 90 tablet 1 025 Active varenicline (Chantix) 1 MG tabletIndicatio ns:Tobacco dependence Take 1 tablet (1 mg) by mouth 2 times daily. Take with full glass of water. 56 tablet 4 025 Active atorvastatin (Lipitor) 40 MG tabletIndicatio ns:Type 2 diabetes mellitus with hyperglycemia, with long-term current use of insulin ([facility]) TAKE 1 TABLET BY MOUTH EVERY [...] NEEDED FOR WHEEZING OR SHORTNESS OF BREATH Active FreeStyle Precision Isak Test test stripIndication s:Type 2 diabetes mellitus with hyperglycemia, with long-term current use of insulin ([facility]) USE TO TEST BLOOD SUGAR THREE TIMES DAILY 100 strip 3 025 Active Alcohol Swabs (Alcohol Prep) 70 % pads USE FOUR TIMES DAILY DIRECTED 100 each 11 Active albuterol (2.5 MG/3ML) 0.083% nebulizer solution Take 2.5 mg by nebulization every 6 (six) hours if needed for wheezing. 025 Active Suboxone 8-2 MG SL filmIndications :Uncomplicated opioid dependence (CMS/HCC) ([facility]) Place 3 Film under the tongue Once per day. 84 Film 1 025 2024 Active Acetaminophen Extra Strength 500 MG tabletIndicatio ns:Cough in adult patient TAKE 1 TABLET BY MOUTH THREE TIMES DAILY 90 tablet 2 025 Active predniSONE (Deltasone) 10 MG tabletIndicatio ns:COPD exacerbation (CMS/HCC) ([facility]) Take by oral route daily. 6 tabs (=60mg) on day 1-2; 5 tabs (=50mg) on day 3-4; 4 tabs (=40mg) on day 5-6; 3 tabs (=30mg) on day 7-8; 2 tabs (=20mg) on day 9-10; 1 tab on day 11-12; 1/2 tab on day 13-14 43 tablet 025 Active sennosides (Nanci-deanna) 8.6 MG tabletIndicatio ns:Constipation , unspecified constipation type TAKE 2 TABLETS BY MOUTH ONCE DAILY NEEDED FOR CONSTIPATION 60 tablet 5 025 Active senna (Senokot) 8.6 MG tabletIndicatio ns:Constipation , unspecified constipation type TAKE 2 TABLETS BY MOUTH EVERY DAY NEEDED FOR CONSTIPATION 60 tablet 5 02/20/2 025 2024 Discontinued Acetaminophen Extra Strength 500 MG tabletIndicatio ns:Cough in adult patient TAKE 1 TABLET BY MOUTH THREE TIMES DAILY 90 tablet 2 025 2024 Discontinued azithromycin (Zithromax) 250 MG tabletIndicatio ns:COPD exacerbation (CMS/HCC) (HCC) Take 2 tablets (500 mg) by mouth Once per day for 1 day, THEN 1 tablet (250 mg) Once per day for 4 days. 6 tablet 025 2024 Active Problems Problem Noted Date Diagnosed Date COPD exacerbation (CMS/HCC) 10/16/2024 Assessment & Plan (10/16/2024 11:04 AM EDT): Patient has pulmonology appointment on 10/21/2024 at 10 am at [facility] [place] [place], [address] [place] [address], I advise not to miss this appointment [...] and left lower lobe calcified large granuloma. [place] [address] [address] Scan Report Signed Patient: Hubert Rios MR#: [id number] : 1965 Acct:[id number] Age/Sex: 59 / M ADM Date: 07/02/24 Loc: HO.CT Attending Dr: Chanel Thomas NP Ordering Physician: Chanel Thomas NP Date of Service: 07/02/24 Procedure(s): CT chest wo IV con Accession Number(s): [id number] cc: Grabiel,Ananda CRANDALL; Chanel Thomas NP Report Number: [id number]: Total DLP = 110.00 mGy-cm EXAMINATION: CT [...] Encounters Date Type Department Care Team Description 12/29/2024 9:00 AM EDT Telemedicine [facility] [address] [place] [phone] Geeta Dove, Donte Tobacco dependence (Primary Dx) 12/18/2024 Refill [facility] [address], [place] [phone] Name, MD Ananda Constipation, unspecified constipation type 12/17/2024 10:20 AM EDT Office Visit [facility] [address] [address] Luis Espinoza MD COPD exacerbation (CMS/HCC) (HCC) (Primary Dx) 12/17/2024 Travel 12/11/20[facility] [address] [address] Ananda Spain MD Cough in adult patient 12/02/2024 Orders Only GENERIC EXTERNAL DATA DEPARTMENT Provider, Generic External Data 11/27/2024 9:00 AM EDT Telemedicine [address] [address] Geeta Dove PharmD Tobacco dependence (Primary Dx) 11/25/2024 9:15 AM EDT Office Visit [address] [address] Latrice Ibrahim MD Uncomplicated opioid dependence (CMS/HCC) (Primary Dx) 11/25/2024 Travel 11/24/2024 Abstract [facility] [address] [place] [address] Ananda Spain MD 11/23/2024 Orders Only GENERIC EXTERNAL DATA DEPARTMENT Provider, Generic External Data 11/18/2024 Refill [facility] [address] [place] [address] Sonali Stubbs RN Uncomplicated opioid dependence (CMS/HCC) 11/06/[address] [address] Ananda Spain MD CHARTPREP 11/05/2024 Orders Only [facility] External Provider, [facility] 10/28/2024 9:00 AM EDT Office Visit [facility] [address] [place] [address] Latrice Ibrahim MD Uncomplicated opioid dependence (CMS/HCC) (Primary Dx) 10/28/2024 Travel 10/27/2024 Telephone [facility] [address] [place] [phone] Latrice Ibrahim MD CHART PREP 10/21/2024 Refill [facility] [address] [place] [phone] Sonali Stubbs RN Uncomplicated opioid dependence (CMS/HCC) 10/16/2024 11:00 AM EDT Office Visit [facility] [address] [address] So Lebron MD COPD exacerbation ([facility]) (Primary Dx); Cough in adult patient 10/16/2024 Travel 10/13/2024 Orders Only GENERIC EXTERNAL DATA DEPARTMENT Provider, Generic External Data 10/09/2024 Orders Only GENERIC EXTERNAL DATA DEPARTMENT Provider, Generic External Data 09/30/2024 Orders Only [facility] External Provider, [facility] from Last 3 Months Immunizations Immunization Administration Dates Next Due Hep A, Adult 05/11/2009 Influenza injectable quadriv alent preservative free 01/21/2023,01/02/2022,02/10/2021,03/07,01/13/2019,01/11/2018 Influenza, Split (incl. aba fied surface antigen) 12/24/2012,11/06/2011 Influenza, seasonal, injecta ble, preservative free 03/30/2024,11/20/2023 [employer] SARS-CoV-2 Vaccination 05/18/2020 Pfizer Covid-19 Vaccine 12+ [...] Sign Reading Time Taken Comments Blood Pressure 148/92 12/17/2024 10:20 AM EDT Pulse 99 12/17/2024 10:20 AM EDT Temperature 36.7 C (98 F) 12/17/2024 10:20 AM EDT Respiratory Rate 18 12/17/2024 10:20 AM EDT Oxygen Saturation 97% 12/17/2024 10:20 AM EDT Inhaled Oxygen Concentration - - Weight 56.2 kg (124 lb) 12/17/2024 10:20 AM EDT Height 170.2 cm (5' 7 ) 12/17/2024 10:20 AM EDT Body Mass Index 19.42 12/17/2024 10:20 AM EDT Plan of Treatment Upcoming Encounters Date Type Department Care Team (Late st Contact Info) Description 01/18/2025 3:15 PM EST Office Visit [facility] [address] [place] [phone] Ananda Spain MD [address] [place] [address] 01/20/2025 9:15 AM EST Office Visit [facility] [address] [place] [phone] Latrice Ibrahim MD [address] [place] [address] 01/27/2025 10:00 AM EST Telemedicine [facility] [address] [place] [address] JamilahiaGeeta, PharmD [address] [place] [address] 02/05/2025 9:30 AM EST Office Visit [facility] [address] [place] [address] Natalie Davis, OD [address] [place] [address] Health Maintenance Due Date Last Done Comments CT Colonography 1965 Dental Oral Exam 1966 Dental Prophylaxis 1966 Dental X-Ray: Bitewings 1966 Dental X-Ray: Full Mouth 1966 FIT DNA/Cologuard 1966 FIT 1966 FOBT 1965 Sigmoidoscopy 1966 Alcohol/Substance Use Screening 1978 Lung Cancer Screening 2016 Zoster Vaccines (2 of 2) 03/08/2018 01/11/2018 Colonoscopy 08/15/2020 08/16/2015 Colorectal Cancer Screening 08/15/2020 Diabetes: Foot Exam 07/23/2024 07/24/2023, 07/24/2023, 07/24/2023, Additional history exists DTaP/Tdap/Td Vaccines (3 - Td or Tdap) 08/14/2024 08/14/2014, 05/25/2011 COVID-19 Vaccine (3 - season) 2024 02/10/2021, 05/18/2020 Influenza Vaccine (#1) 2024 5, 11/20/2023, 01/21/2023, Additional history exists Diabetes: Hemoglobin A1C 01/13/2025 025, 07/15/2024, 05/27/2024, Additional history exists Lipid Panel 05/27/2025 05/27/2024, 05/02, 02/13/2022, Additional history exists Diabetes: Urine Protein Screening 05/29/2025 05/29/2024, 05/14/2023, 02/13/2022, Additional history exists Depression Screening 07/15/2025 07/15/2024, 07/16/19 Disability Screening 07/15/2025 07/15/2024 SDOH Screening 07/15/2025 07/15/2024 Tobacco Screening 12/17/2025 12/17/2024 Eye Exam 08/06/2026 08/06/2024, 06/0 07/2024, 08/06/2024, [...] on patient's age to complete this topic Hepatitis B Vaccines Discontinued IPV Vaccines Aged Out No longer eligi [...] 10/28/2024 9:10 AM EDT Uncomplicated opioid dependence ([facility]) POCT RAPID COVID ANTIGEN Routine 10/16/2024 10:18 [...] time period is included. Immunoglobulin E 373(A) <GC=962 kU/L [facility] Comment:THIS TEST WAS PERFOR MED AT:[employer] [place] [phone] GARCIA MD 12/02/2024 8:10 AM EDT 12/02/2024 8:10 AM EDT us Generic External Data Provider LAB BLOOD ORDERAB LES Final Result [facility] [address] [place] [address] [phone] * Glucose, Whole Blood (11/23/2024 9:21 AM EDT) Only the most recent of2 resultswithin the time period is included. Glucose, Whole Blood 91 60 - 115 mg/dL [facility] Comment:METER #: [id number] Testing performed in the Endocrinology Department [address], [place]. 11/23/2024 9:21 AM EDT 11/23/2024 9:24 AM EDT us Generic External Data Provider LAB BLOOD ORDERAB LES Final Result [facility] [address] [place] [phone] * US Renal Complete (11/05/2024 12:39 PM EDT) Anatomical Region Laterality Modality Kidney Ultrasound 11/05/2024 12:3 9 PM EDT Narrative 11/05/2024 3:49 PM EDT [address] [address] Ultrasound Report Signed Patient: Hubert Rios MR#: [id number] 0650 : 1965 Acct:[id number] Age/Sex: 59 / M ADM Date: 11/05/24 Loc: HO.US Attending Dr: Hipolito Mcdaniel MD Ordering Physician: Hipolito Mcdaniel MD Date of Service: 11/05/24 Procedure(s): US renal BI Accession Number(s): [id number] cc: Hipolito Mcdaniel MD; Name,Ananda CRANDALL Reason [...] 11/05/24 1546 DD/ 1239 TD/TT: 11/05/24 1250 Mechanical Meter Tester: [facility] Procedure Note Donotuseinterpreter, Image - 11/05/[address] [address] Ultrasound Report Signed Patient: Hubert Rios [facility]#: [id number] 0650 : 1965Acct:[id number] Age/Sex: 59 / MADM Date: 11/05/24 Loc: HO.US Attending Dr: Hipolito Mcdaniel MD Ordering Physician: Hipolito Mcdaniel MD Date of Service: 11/05/24 Procedure(s): US renal BI Accession Number(s): [id number] cc: Hipolito Mcdaniel MD; Name,Ananda CRANDALL Reason [...] abdomen study 08/02/2023. Electronically signed by: Sandeep Makcey MD 11/05/2024 03:46 PM EDT RP Dictated By: Sandeep Mackey MD Signed By: <Electronically signed by Sandeep Mackey MD in OV> 11/05/24 1546 DD/ 1239 TD/TT: 11/05/24 1250 Mechanical Meter Tester: [facility] External Provider IMG US PROCEDURES Final Result * (ABNORMAL) POCT FARA-14 Urine Drug Screen (10/28/2024 9:10 AM EDT) Pathologist [facility] [place] THC Negative Negative Cocaine Screen, Urine Negative [...] procedure / Unknown 10/28/2024 9:10 AM EDT Result [facility] Latrice Ibrahim MD POINT OF CARE TEST ENTER/EDIT OR DERABLES Final Result * Influenza B (ID NOW Rapid Molecular) (10/16/2024 10:18 AM EDT) Pathologist [facility] [place] Influenza B Negative Negative, Indeterminate [facility] Swab 10/16/2024 10:1 8 AM EDT So Osman MD POINT OF CARE TEST EN TER/EDIT ORDERABLES Final Result [facility] [address] [place] [phone] * Influenza A (ID NOW Rapid Molecular) (10/16/2024 10:18 AM EDT) Pathologist [facility] [place] Influenza A Negative Negative, Indeterminate [facility] Swab 10/16/2024 10:1 8 AM EDT So Osman MD POINT OF CARE TEST EN TER/EDIT ORDERABLES Final Result [facility] [address] [place] [phone] * POCT Rapid COVID Ag (10/16/2024 10:18 AM EDT) [facility] Rapid COVID Ag Negative Swab 10/16/2024 10:1 8 AM EDT So Osman MD POINT OF CARE TEST EN TER/EDIT ORDERABLES Final Result * (ABNORMAL) Hemoglobin A1c (10/13/2024) [facility] Hemoglobin A1C 8.0(A) 4.0 - 5.7 % Blood Venous blood specimen / Unknown Result [facility] Provider LAB BLOOD ORDERABLES Anna l Result * (ABNORMAL) Respiratory Allergy Profile Region I (10/09/2024 8:23 AM EDT) [facility] Mouse Urine Proteins (E72) IgE <0.10 kU/L [facility] Class 0 [facility] Cockroach (I6) IgE 0.17(A) kU/L [facility] Class 0/1 [facility] Dermatophagoides farinae (D2) IgE 0.99(A) kU/L [facility] Class 2 [facility] Cat Dander (E1) IgE <0.10 kU/L [facility] Class 0 [facility] Comment:THIS TEST WAS PERFOR MED AT:[employer] [place] [phone] GARCIA MD Dog Dander (E5) IgE <0.10 kU/L [facility] Class 0 [facility] Comment:THIS TEST WAS PERFOR MED AT:[employer] [id number] [place] [phone] GARCIA MD Fredo Grass (G6) IgE <0.10 kU/L [facility] Class 0 [facility] Cladosporium herbarum (M2) IgE <0.10 kU/L [facility] Class 0 [facility] Aspergillus Fumigatis (M3) IgE <0.10 kU/L [facility] Class 0 [facility] Alternaria alternata (M6) IgE <0.10 kU/L [facility] Class 0 [facility] Comment:THIS TEST WAS PERFOR MED AT:[employer] [id number] [place] [phone] GARCIA MD [place] (t6) IgE <0.10 kU/L [facility] Class 0 [facility] [place] (T7) IgE <0.10 kU/L [facility] Class 0 [facility] [place] Tree (T10) IgE <0.10 kU/L [facility] Class 0 [facility] Cocoa (T11) IgE <0.10 kU/L [facility] Class 0 [facility] [place] (T14) IgE <0.10 kU/L [facility] Class 0 [facility] [place] (t15) IgE <0.10 kU/L [facility] Class 0 [facility] [place] (T70) IgE <0.10 kU/L [facility] Class 0 [facility] Common Ragweed (Short) (W1) IgE 0.12(A) kU/L [facility] Class 0/1 [facility] Mugwort (w6) IgE <0.10 kU/L [facility] Class 0 [facility] Dermatophagoides pteronyssinus (D1) IgE 0.98(A) kU/L [facility] Class 2 [facility] Bermuda Grass (g2) IgE <0.10 kU/L [facility] Class 0 [facility] Penicillium Notatum (M1) IgE <0.10 kU/L [facility] Class 0 [facility] Birch (T3) IgE <0.10 kU/L [facility] Class 0 [facility] Elm (t8) IgE <0.10 kU/L [facility] Class 0 [facility] Maple ([place]) (T1) IgE <0.10 kU/L [facility] Class 0 [facility] Rough Pigweed (W14) IgE <0.10 kU/L [facility] Class 0 [facility] Sheep [place] (W18) IgE <0.10 kU/L [facility] Class 0 [facility] Allergen Comment See Below [facility] Comment: Specific Level of AllergenIGE Class [...] and its analyticalperformance characteristics have been determined by[employer]. It has not been cleared or approvedby the U.S. Food and Drug Administration. This assayhas been validated pursuant to the CLIA regulationsand is used for clinical purposes.THIS TEST WAS PERFORMED AT:[employer] [place] [phone] GARCIA MD 10/09/2024 8:23 AM EDT 10/09/2024 8:26 AM EDT us Generic External Data Provider LAB BLOOD ORDERAB LES Final Result [facility] [address] [place] [address] [phone] * (ABNORMAL) CBC auto differential (10/09/2024 8:23 AM EDT) White Blood Count 5.9 4.8 - 10.8 X10*3/uL [facility] Red Blood Count 4.56(L) 4.60 - 5.80 X10*6/uL [facility] Hemoglobin 13.5(L) 14.0 - 18.0 g/dl [facility] Hematocrit 40.9(L) 42.0 - 52.0 % [facility] Mean Corpuscular Volume 89.7 80.0 - 98.0 fL [facility] Mean Corpuscular Hemoglobin 29.6 27.0 - 33.0 pg [facility] Mean Corpuscular HGB Conc 33.0 31.0 - 36.0 g/dl [facility] Red Cell Distribution Width 13.3 11.0 - 16.0 % [facility] Platelet Count 237 160 - 400 X10*3/uL [facility] Mean Platelet Volume 10.6 9.4 - 12.4 fL [facility] Neutrophils Percent Auto 43.2(L) 45 - 73 % [facility] Imm Gran Pct Auto 0.3 0.0 - 0.4 % [facility] Lymphocytes Percent Auto 32.8 20 - 40 % [facility] Monocytes Percent Auto 12.5(H) 2 - 11 % [facility] Eosinophils Percent Auto 10.0(H) 0 - 4 % [facility] Basophils Percent Auto 1.2 0 - 2 % [facility] NRBC Pct Auto 0.0 0.0 - 0.2 /100WBC [facility] Neutrophils Absolute Auto 2.6 2.0 - 8.3 x10*3/uL [facility] Imm Gran Abs Auto 0.02 0.00 - 0.03 X10*3/uL [facility] Lymphocytes Absolute Auto 1.9 1.2 - 4.9 X10*3/uL [facility] Monocytes Absolute Auto 0.7 0.1 - 1.2 X10*3/uL [facility] Eosinophils Absolute Auto 0.6(H) 0.0 - 0.4 X10*3/uL [facility] Basophils Absolute Auto 0.1 0.0 - 0.2 X10*3/uL [facility] NRBC Abs Auto 0.000 0.0 - 0.012 X10*3/uL [facility] 10/09/2024 8:23 AM EDT 10/09/2024 8:26 AM EDT us Generic External Data Provider LAB BLOOD ORDERAB LES Final Result Performing Organization Address City/State/[facility] Co de Phone Number [facility] [address] [place] [phone] * US JANAE COMPLETE (09/30/2024 1:41 PM EDT) Anatomical Region Laterality Modality Abdomen Ultrasound 09/30/2024 1:41 PM EDT Narrative 09/30/2024 1:42 PM EDT [address] [address] Ultrasound Report Signed Patient: Hubert Rios MR#: [id number] 0650 : 1965 Acct:[id number] Age/Sex: 59 / M ADM Date: 09/30/24 Loc: HO.US Attending Dr: Nichole Monteiro NP Ordering Physician: Nichole Monteiro NP Date of Service: 09/30/24 Procedure(s): US JANAE complete Accession Number(s): [id number] cc: Ananda Spain MD; Nichole Monteiro NP [...] OV> 09/30/24 1342 DD/ 1341 TD/TT: 09/30/24 134 Mechanical Meter Tester: Procedure Note Donotuseinterpreter, Image - 09/30/2024 [place] [address] Ultrasound Report Signed Patient: Hubert Rios MMR#: [id number] : 1965Acct:[id number] Age/Sex: 59 / MADM Date: 09/30/24 Loc: . Attending Dr: Nichole Monteiro NP Ordering Physician: Nichole Monteiro NP Date of Service: 09/30/24 Procedure(s): US JANAE complete Accession Number(s): [id number] cc: Name,Ananda CRANDALL; Nichole Monteiro NP CLINICAL HISTORY: I73.9 - [...] OV> 09/30/24 1342 DD/ 1341 TD/TT: 09/30/24 134 Mechanical Meter Tester: us [facility] External Provider IMG US PROCEDURES Final Result * Albumin, Random Urine W/Creatinine (05/29/2024 8:43 AM EDT) Creatinine, Urine 126.68 mg/dL [facility] Microalbumin Urine 15.0 mg/L [facility] Microalbum Creatinine Ratio Ur 11.8 <30 ug/mg cr [facility] Comment:Albumin/Creatinine R atio Reference Ranges: Normal: < 30 ug/mg creatinine Microalbuminuria: 30 - 300 ug/mg creatinineClinical Albuminuria: > 300 ug/mg creatinine 05/29/2024 8:43 AM EDT 05/29/2024 9:05 AM EDT us Generic External Data Provider LAB URINE ORDERAB LES Final Result [facility] [address] [place] [phone] * (ABNORMAL) Lipid Panel, Standard (05/27/2024 8:40 AM EDT) Triglycerides 73 <150 mg/dL [facility] Comment:Desirable Triglyceri de: less than 150 mg/dLBorderline High Triglyceride 150-199 mg/dLHigh Triglyceride: 200-499 mg/dLVery High Triglyceride: greater than or equal to 5OO mg/dL Cholesterol 221(H) <200 mg/dL [facility] Comment:Desirable Cholestero l: less than 200 mg/dLBorderline High Cholesterol: 200-239 mg/dLHigh Cholesterol: greater than 239 mg/dL LDL Cholesterol Calculated 75 <100 mg/dL [facility] Comment:Desirable LDL: less than 100 mg/dLNear Optimal/Above Optimal LDL: 110- 129 mg/dLBorderline High LDL: 130-159 mg/dLHigh LDL: 160-189 mg/dLVery High LDL: greater than or equal to 190 mg/dL HDL Cholesterol 132 >40 mg/dL [facility] Comment:Desirable HDL: great er than 40 mg/dL Note: This HDL assay may give artificially low results in patients with liver disease. Blood Venous blood specimen / Unknown 05/27/2024 8:40 AM EDT 05/27/2024 8:40 AM EDT Ananda Spain MD LAB BLOOD ORDERABLES Final Resul t Performing Organization Address [facility] [place]/ZIP Co de Phone Number [facility] [address] [place] [phone] * (ABNORMAL) Hepatitis C Antibody with Reflex to HCV, RNA, Quantitative, Real- Time PCR (03/29/2023 9:12 AM EST) Hepatitis C Antibody Reactive( A) Nonreactive [facility] Comment:Presumptive evidence of antibodies to HCV. 03/29/2023 9:12 AM EST 03/29/2023 11:11 AM EST Latrice Ibrahim MD LAB BLOOD ORDERABLES Final Resul t Performing Organization Address [facility] Co de Phone Number [facility] [address] [place] [phone] * HIV-1/2 Antigen and Antibodies, Fourth Generation, with Reflexes (03/29/2023 9:12 AM EST) HIV AB/AG Nonreactive Nonreactive [facility] Comment:HIV-1 p24 Ag and/or HIV-1/HIV-2 Ab not detected.A test result that is nonreactive does not exclude thepossibility of exposure to or infection with HIV-1 and/orHIV-2. Nonreactive results in this assay for individualswith prior exposure to HIV-1 and/or HIV-2 may be due toantigen and antibody levels that are below the limit ofdetection of this assay.The [employer] HIV Ag/Ab Combo assay result andsupplemental assay results should be interpreted inconjunction with the patient's clinical presentation,history and other laboratory results. If the results areinconsistent with clinical evidence, additional testing issuggested to confirm the result. 03/29/2023 9:12 AM EST 03/29/2023 11:11 AM EST us Latrice Ibrahim MD LAB BLOOD ORDERABLES Final Resul t [facility] [address] [place] [address] [phone] * Hm Colonoscopy (08/16/2015 1:52 PM EDT) Colonoscopy Normal Normal Narrative Gloria Álvarez - 08/16/2015 1:52 PM EDT Recommended 10 year follow up Historical Provider HEALTH MAINTENANCE Final Result from Last 3 Months or Most Recently Relevant to Health Maintenance Insurance [facility] ONE CARE < 65 Care Teams Welding Process Engineer Relationship Specialty Start Date End Date Name, MD Ananda [address] [place] [address] PCP - General Family Medicine 06/01/15 Geeta Dove PharmD [address] [place] [phone] Pharmacist Internal Medicine 07/21/24
--- OUTSIDE RECORDS SUMMARY | 2024-12-31 07:58 | XMS_ITS | Encounter Summary ---
Author Organization [employer] Address [address] [place] [address] 7t [place] [address] Care Team Providers Care Board Certified Arts Therapist Name Role Phone Name, Ananda CRANDALL Primary Care Provider [phone] Geeta Dove PharmD Unavailable Reason for Visit * Reason Comments Med Refill Encounter Details Date Type Department Care Team (Late st Contact Info) Description 12/07/2022 Refill [facility] [address] [place] [address] Name, MD Ananda [address] [place] [address] Type 2 diabetes mellitus without complication, unspecified whether intermodal truck driver insulin use ([facility]); Type 2 diabetes mellitus without complication, with long-term current use of insulin ([facility]) Social History Tobacco [...] Department Care Team (Late Contact Info) Description 01/18/2025 3:15 PM EST Office Visit [facility] [address] [place] [address] Name, MD Ananda [address] [place] [address] 01/20/2025 9:15 AM EST Office Visit [facility] [address] [place] [address] Latrice Ibrahim MD [address] [place] [address] 01/27/2025 10:00 AM EST Telemedicine [facility] [address] [place] [address] Geeta Dove PharmD [address] [place] [address] 02/05/2025 9:30 AM EST Office Visit [facility] OPTOMETRY [address] [place] [address] Natalie Davis, OD [address] [place] [address] documented as of this encounter Visit Diagnoses Diagnosis Type 2 diabetes mellitus without complication, unspecified whether skilled nursing insulin use Type 2 diabetes mellitus without complication, with long-term current use of insulin (HCC) documented in this encounter Additional Health Concerns Assessment Noted Time PHQ-9 Depression Total Score: 3 10/04/19 23 2:21 PM EDT documented as of this encounter Care Teams Board Certified Arts Therapist Relationship Specialty Start Date End Date Name, MD Ananda [address] [place] [address] PCP - General Family Medicine 06/01/15 Geeta Dove PharmD [address] [place] [address] Pharmacist Internal Medicine 07/21/24 documented as of this encounter
--- OUTSIDE RECORDS SUMMARY | 2024-12-31 07:58 | XMS_ITS | Encounter Summary ---
Author Organization [employer] Address [address] [place] [address] 7t [place] [address] Care Team Providers Care Javascript Web Developer Name Role Phone Name, Ananda CRANDALL Primary Care Provider [phone] Geeta Dove PharmD Unavailable [phone] Encounter Details Date Type Department Care Team ([facility] Contact Info) Description 02/14/2022 Abstract [facility] [address] [place] [address] [phone] Provider, MD Damari Social History Tobacco Use [...] ([facility] Contact Info) Description 01/18/2025 3:15 PM EST Office Visit [facility] [address] [place] [address] [phone] Name, MD Ananda [address] [place] [address] 01/20/2025 9:15 AM EST Office Visit [facility] [address] [place] [address] Latrice Ibrahim MD [address] [place] [address] 01/27/2025 10:00 AM EST Telemedicine [facility] [address] [place] [address] Geeta Dove PharmD [address] [place] [address] 02/05/2025 9:30 AM EST Office Visit [facility] OPTOMETRY [address] [place], [place] 1999840 Natalie Davis, OD [address] [place] [address] documented as of this encounter Visit Diagnoses Not on filedocumented in this encounter Care Teams Javascript Web Developer Relationship Specialty Start Date End Date Name, MD Ananda [address] [place] [address] PCP - General Family Medicine 06/01/15 Geeta Dove PharmD [address] [place] [address] Pharmacist Internal Medicine 07/21/24 documented as of this encounter
--- OUTSIDE RECORDS SUMMARY | 2024-12-31 07:58 | XMS_ITS | Encounter Summary ---
Author Organization [employer] Address [address] [facility] 7t [place] [address] Care Team Providers Care Roof Cement And Paint Maker Name Role Phone Name, Ananda CRANDALL Primary Care Provider [phone] Geeta Dove PharmD Unavailable [phone] Reason for Visit * Reason Comments Med Refill Encounter Details Date Type Department Care Team ([facility] st Contact Info) Description 03/08/2024 Refill [facility] [address] [place], [place] [phone] Name, MD Ananda [address] [place] [address] Chronic obstructive pulmonary disease, unspecified COPD type [...] Description 01/18/2025 3:15 PM EST Office Visit [facility] [address] [place] [address] Name, MD Aannda [address] [place] [address] 01/20/2025 9:15 AM EST Office Visit [address] [address] Latrice Ibrahim MD [address] [place] [address] 01/27/2025 10:00 AM EST Telemedicine [facility] [address] [place] [address] Geeta Dove, PharmD [address] [place] [address] 02/05/2025 9:30 AM EST Office Visit [facility] OPTOMETRY [address] [place] [address] Natalie Davis, OD [address] [place] [address] documented as of this encounter Visit Diagnoses Diagnosis Chronic obstructive pulmonary disease, unspecified COPD type (CMS/HCC) (HCC) documented in this encounter Additional Health Concerns Assessment Noted Time PHQ-9 Depression Total Score: 10 024 9:15 AM EDT documented as of this encounter Care Teams Roof Cement And Paint Maker Relationship Specialty Start Date End Date Name, MD Ananda [address] [place] [address] PCP - General Family Medicine 06/01/15 Geeta Dove PharmD [address] [place] [address] Pharmacist Internal Medicine 07/21/24 documented as of this encounter
--- OUTSIDE RECORDS SUMMARY | 2024-12-31 07:58 | XMS_ITS | Encounter Summary ---
Author Organization [employer] Address [address] [place] [address] 7t [place] [address] Care Team Providers Care Impregnator And Drier Helper Name Role Phone Name, Ananda CRANDALL Primary Care Provider [phone] Geeta Dove PharmD Unavailable [phone] Encounter Details Date Type Department Care Team ([facility] Contact Info) Description 05/10/2022 Orders Only [facility] [address] [place] [address] Alis Zavala, COREY Uncomplicated opioid dependence (CMS/HCC) [...] Team ([facility] Contact Info) Description 01/18/2025 3:15 PM EST Office Visit [facility] [address] [place] [address] [phone] Name, MD Ananda [address] [place] [address] 01/20/2025 9:15 AM EST Office Visit [facility] [address] [place] [address] Latrice Ibrahim MD [address] [place] [address] 01/27/2025 10:00 AM EST Telemedicine [facility] [address] [place] [address] Geeta Dove PharmD [address] [place] [address] 02/05/2025 9:30 AM EST Office Visit [facility] OPTOMETRY [address] [place] [address] Natalie Davis, OD [address] [place] [address] documented as of this encounter Visit Diagnoses Diagnosis Uncomplicated opioid dependence (CMS/HCC) (HCC) documented in this encounter Care Teams Impregnator And Drier Helper Relationship Specialty Start Date End Date Name, MD Ananda [address] [place] [address] PCP - General Family Medicine 06/01/15 Geeta Dove PharmD [address] [place] [address] Pharmacist Internal Medicine 07/21/24 documented as of this encounter
--- OUTSIDE RECORDS SUMMARY | 2024-12-31 07:58 | XMS_ITS | Encounter Summary ---
Author Organization [employer] Address [address] [place] [address] 7t [place] [address] Care Team Providers Care Fire Supervisor Name Role Phone Name, Ananda CRANDALL Primary Care Provider [phone] Geeta Dove PharmD Unavailable [phone] Reason for Visit * Reason Onset Date Comments Prior Authorization 05/07/2022 Appointment 05/07/2022 Encounter Details Date Type Department Care Team (Late st Contact Info) Description 05/07/2022 Telephone [facility] [address] [place] [address] Kelvin Haque DDS [address] [place], [place] [phone] Prior Authorization; Appointment Social History Tobacco Use [...] for partial. Don't see if [facility] has approved partials for patient. Patient verifying. DR documented in this encounter Plan of Treatment Upcoming Encounters Date Type Department Care Team (Late st Contact Info) Description 01/18/2025 3:15 PM EST Office Visit [facility] [address] [place] [address] Name, MD Ananda [address] [place] [address] 01/20/2025 9:15 AM EST Office Visit [address] [address] Latrice Ibrahim MD [address] [place] [address] 01/27/2025 10:00 AM EST Telemedicine [facility] [address] [place] [address] Geeta Dove PharmD [address] [place] [address] 02/05/2025 9:30 AM EST Office Visit [facility] OPTOMETRY [address] [place] [address] TarkaNatalie, OD [address] [place] [address] documented as of this encounter Visit Diagnoses Not on filedocumented in this encounter Care Teams Fire Supervisor Relationship Specialty Start Date End Date Name, MD Ananda [address] [place] [address] PCP - General Family Medicine 06/01/15 Geeta Dove PharmD [address] [place] [address] Pharmacist Internal Medicine 07/21/24 documented as of this encounter
--- OUTSIDE RECORDS SUMMARY | 2024-12-31 07:58 | XMS_ITS | Encounter Summary ---
Author Organization [employer] Address [address] [facility] 7t [place] [address] Care Team Providers Care Car Unloader Helper Name Role Phone Name, Ananda CRANDALL Primary Care Provider [phone] Geeta Dove PharmD Unavailable [phone] Reason for Visit * Reason Comments Med Refill Encounter Details Date Type Department Care Team ([facility] st Contact Info) Description 02/28/2023 Refill [facility] [address] [place], [place] [phone] Name, MD Ananda [address] [place] [address] Pain of left leg Social History Tobacco [...] Description 01/18/2025 3:15 PM EST Office Visit [facility] [address] [place] [address] Ananda Spain MD [address] [place] [address] 01/20/2025 9:15 AM EST Office Visit [facility] [address] [place] [address] Latrice Ibrahim MD [address] [place] [address] 01/27/2025 10:00 AM EST Telemedicine [facility] [address] [place] [address] Geeta Dove, PharmD [address] [place] [address] 02/05/2025 9:30 AM EST Office Visit [facility] OPTOMETRY [address] [place] [address] Natalie Davis OD [address] [place] [address] documented as of this encounter Visit Diagnoses Diagnosis Pain of left leg documented in this encounter Additional Health Concerns Assessment Noted Time PHQ-9 Depression Total Score: 3 10/04/19 23 2:21 PM EDT documented as of this encounter Care Teams Car Unloader Helper Relationship Specialty Start Date End Date Name, MD Ananda [address] [place], [place] [phone] PCP - General Family Medicine 06/01/15 Geeta Dove, Donte [address] [place] [address] Pharmacist Internal Medicine 07/21/24 documented as of this encounter
--- OUTSIDE RECORDS SUMMARY | 2024-12-31 07:58 | XMS_ITS | Encounter Summary ---
Author Organization [employer] Address [address] [facility] 7t [place] [address] Care Team Providers Care Internet Ecommerce Specialist Name Role Phone Name, Ananda CRANDALL Primary Care Provider [phone] Geeta Dove PharmD Unavailable [phone] Encounter Details Date Type Department Care Team ([facility] Contact Info) Description 03/28/2023 Abstract [facility] [address] [place], [place] [phone] Name, MD Ananda [address] [place] [address] Social History Tobacco Use Types Packs/Day Years [...] Description 01/18/2025 3:15 PM EST Office Visit [facility] [address] [place] [address] Ananda Spain MD [address] [place] [address] 01/20/2025 9:15 AM EST Office Visit [facility] [address] [place] [address] Latrice Ibrahim MD [address] [place] [address] 01/27/2025 10:00 AM EST Telemedicine [facility] [address] [place] [address] JamilahiaGeeta, PharmD [address] [place] [address] 02/05/2025 9:30 AM EST Office Visit [facility] [address] [place] [address] TarkaNatalie, OD [address] [place] [address] documented as of this encounter Visit Diagnoses Not on filedocumented in this encounter Additional Health Concerns Assessment Noted Time PHQ-9 Depression Total Score: 3 10/04/19 23 2:21 PM EDT documented as of this encounter Care Teams Internet Ecommerce Specialist Relationship Specialty Start Date End Date Ananda Spain MD [address] [place] [address] PCP - General Family Medicine 06/01/15 Geeta Dove PharmD [address] [place] [address] Pharmacist Internal Medicine 07/21/24 documented as of this encounter
--- OUTSIDE RECORDS SUMMARY | 2024-12-31 07:58 | XMS_ITS | Encounter Summary ---
Author Organization [employer] Address [address] [facility] 7t [place] [address] Care Team Providers Care Crystal Slicer Name Role Phone Name, Ananda CRANDALL Primary Care Provider [phone] Geeta Dove PharmD Unavailable [phone] Encounter Details Date Type Department Care Team ([facility] Contact Info) Description 03/28/2022 Orders Only [facility] [address] [place], [place] [phone] Teresa Moody LPN Social History Tobacco Use [...] Upcoming Encounters Date Type Department Care Team ([facility] Contact Info) Description 01/18/2025 3:15 PM EST Office Visit [facility] [address] [place], [place] [phone] Name, MD Ananda [address] [place] [address] 01/20/2025 9:15 AM EST Office Visit [facility] [address] [place] [address] Latrice Ibrahim MD [address] [place] [address] 01/27/2025 10:00 AM EST Telemedicine [facility] [address] [place] [address] Geeta Dove PharmD [address] [place] [address] 02/05/2025 9:30 AM EST Office Visit [facility] OPTOMETRY [address] [place], [place] [phone] Natalie Davis, OD [address] [place] [address] documented as of this encounter Visit Diagnoses Not on filedocumented in this encounter Care Teams Crystal Slicer Relationship Specialty Start Date End Date Name, MD Ananda [address] [place] [address] PCP - General Family Medicine 06/01/15 Geeta Dove PharmD [address] [place] [address] Pharmacist Internal Medicine 07/21/24 documented as of this encounter
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
== END 2024-12-31 08:40 | disposition home or self-care (01) ==
LOC: HO.ENCR 07:52
PROVIDERS: PCP Internal Medicine Geriatric Medicine; Visit Provider Registered Nurse Diabetes Educator
DX: E13.9 Other specified diabetes mellitus without complications (principal)

== ENCOUNTER → 2024-12-31 07:52 | Outpatient (BNVA) | payer OTHER, SELFPAY | PROVIDERS: PCP Internal Medicine Geriatric Medicine; Visit Provider Registered Nurse Diabetes Educator | DX: E13.9 Other specified diabetes mellitus without complications (principal) | CPT/HCPCS: 99211 ==

== ENCOUNTER 2025-01-21 12:12 | Outpatient (AMB) | payer OTHER, SELFPAY ==
--- NOTE | 2025-01-21 12:35 | A.OFFVIS_ITS ---
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 Last Diabetic eye exam was on: 04/04/2024 Last Podiatry exam was on: Patient does not see a Circus Performer Most recent HbA1c: 8.2%, 01/21/2025 Random Glucose- 244 mg/dL, Today Repairer Auto Clocks Required: Yes Repairer Auto Clocks Language: Sales Management Trainee Services: Repairer Auto Clocks Present Repairer Auto Clocks Name: Devan Information Interpreted: non-clinical & clinical Accompanied by: Self / Same As Patient Allergies sitagliptin (From Januvia) Adverse Reaction (Intermediate, Verified 11/23/24 09:19) pancreatitis HPI Comments Details: Patient is a 59 yo male with insulin dependent diabetes mellitus presenting for follow up. Last seen [place] by Dr. Smith on 11/23/2024. This is my 1st time seeing this patient. History of diabetes mellitus diagnosed in 1988 when he was hospitalized with HHS/DKA Initially diagnosed as type 2. Is now insulin deficient. He has a history of pancreatitis after being kicked in the abdomen by a horse. C-peptide 0.50 10/2023 CARLOZ <5.0 islet cell antibodies negative He has decided against Omnipod insulin pump. Bolus insulin has has progressively been increased to lower A1c. Hemoglobin A1c 10/13/24 POC : 8 % 05/19/24: 7.9% 02/18/2024 8.4% down from previous 9.2%. Prior therapy History of pancreatitis while on Januvia Diabetes medications: Tresiba 12 units at night novolog Breakfast 80-150 5 units 151-200 7 units 201-250 8 units 250-300 9 units Over 300 10 units Lunch 80-150 7 units 150-200 8 units 201-250 9 units 250-300 10units Over 300 11 units Supper 80-150 9 units 150-200 10 units 201-250 11 units 250-300 12units Over 300 13 units same ranges dosing 9,10,11,12,13 CGM data: Interpretation: persistent hyperglycemia, most accentuated after meals. He was underdosing his insulin Has neuropathy: Symptoms reported: + numbness, tingling in lower extremities. Denies cramping in lower extremities has some difficulty cutting toenails due to thickness and would like referral to Podiatry: has referral Hypoglycemia: Reports symptoms of fatigue, shakiness, sweating. Carries glucose gel at all times Denies retinopathy: last eye exam 08/2024 seen by director volunteer services [facility] Has nephropathy: 04/12/2024 eGFR>60 microalbumin 11.8 05/26 Has HLD on atorvastatin 40 mg daily 05/2024 LDL 75 BNP 11 Exercise: 1/2 - 1 hour a day. Other specialists: psychiatrist, therapist, nephrology [facility] screen Fibrosis-4 (Fib-4) Index for liver fibrosis (calculated on lab work done: 04/28) 1.29 points Advanced fibrosis excluded Approximate Fibrosis stage Brad 0-1 *Use with caution in patients <35 or >65 years old, as the score has been shown to be less reliable in these patients. Prior Imaging 09/2022 LIVER, GALLBLADDER, AND BILIARY TREE: The liver is normal in size, shape, and attenuation. No focal hepatic lesion. Prominence of the extrahepatic biliary ductal system is stable. No choledocholithiasis or gross pancreatic head lesion.. The gallbladder is unremarkable with no evidence of radiopaque gallstones, gallbladder wall thickening, or obvious pericholecystic inflammatory changes. Action Plan: rescreen two years from date of screening labs 04/2026 Interval history: He reports that been using insulin 15 mins prior to meal He thinks that his diet could be the reason for his BG control Per last health promotion educator, he will be started on Onmipod after this visit today Denies not recent episodes of hypoglycemia, mostly hypoglycemia He reports being compliance with insulin regimen, but he was using Lantus 10 units instead of the 14 units he was supposed to be used (seems like he didn't realize it should have been increased). Lispro he is using it based on SS, generally 7-8 per meal Physical exam: General: Well appearing. NAD. Neck/Thyroid: Thyroid not palpable, no nodules. CV: RRR, no murmur. No edema. Resp:Lungs clear to auscultation bilaterally Abdomen: Soft, nontender. nondistended Extremities/Neuro: No weakness or tremor of outstretched hands Foot exam: Checked October 2024 intact sensation to monofilament, intact pulses, intact vibration Laboratory Tests 05/27/24 05/29/24 10/09/24 08:40 08:43 08:23 Hgb 13.5 L Hct 40.9 L Plt Count 237 Creatinine 0.73 Estimated GFR > 60 Glucose (Clinic) Hemoglobin A1c % 8.3 H Triglycerides 73 Cholesterol 221 H LDL Cholesterol, Calc 75 HDL Cholesterol 132 Urine Creatinine 126.68 Urine Microalbumin 15.0 Microalb/Creat Ratio 11.8 10/13/24 08:50 Hgb Hct Plt Count Creatinine Estimated GFR Glucose (Clinic) 93 Hemoglobin A1c % Triglycerides Cholesterol LDL Cholesterol, Calc HDL Cholesterol Urine Creatinine Urine Microalbumin Microalb/Creat Ratio PFSH Medical History Hx of penetrating abdominal trauma Nonhealing ulcer of left lower extremity Uncontrolled diabetes mellitus with hypoglycemia On supplemental oxygen therapy Mass of left lower leg Abdominal wall bulge Renal neoplasm Renal cell cancer Anxiety Tubular adenoma of colon History of pancreatitis Seborrheic dermatitis Mood disorder 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 pylori infection GERD (gastroesophageal reflux disease) Vitamin D deficiency HLD (hyperlipidemia) HTN (hypertension) T2DM (type 2 diabetes mellitus) Surgical History History of incisional hernia repair History of surgery Hx of prior ablation treatment Hx of partial nephrectomy Hx of colonoscopy History of esophagogastroduodenoscopy (EGD) Family History Father Liver cancer Diabetes Alcohol abuse Mother Diabetes Breast cancer Social History Household Members: None Alcohol intake: current Alcohol intake frequency: does not drink Alcohol type: beer Comment: 2 beers on Saturday Patient Tobacco Use Status: Current everyday Tobacco user Tobacco use type: Cigarette Cigarettes Per Day: 1 Physical Exam Vital Signs: BMI result Body Mass Index 19.2 Results AMB Hemoglobin A1c 2 AMB Hemoglobin A1c 8.2 % Last Edit by JAYSON Thomas on 01/21/25 12:49 Assessment & Plan Assessment & Plan (1) Type 1.5 diabetes, managed as type 1: Code(s): E13.9 - Other specified diabetes mellitus without complications Category: Medical Plan: 59-year-old male with t insulin dependent diabetes mellitus with complications of neuropathy and microalbuminuria. A1c at 8% POC 10/13/2024 which is about the same as 7.9% from May 2024. CGM data downloaded also shows he is only in target range about 40% of the time, and overall his hyperglycemic overnight, in the morning he has hyperglycemia then followed by some hypoglycemia and then later in the day he remains hyperglycemic. He says that he is injecting his NovoLog after eating , this is contributing to the hypoglycemia, I educated him about injecting it 15 minutes before because he does have periods of hyperglycemia and then followed by hypoglycemia. He also has fasting hyperglycemia I am going to increase his Tresiba. Plan: -increase Tresiba to 14 units -Use sliding scale in patient's instructions -He will start Omnipod, supplies ordered -He will come back to see [place] when pump supplies available -Change Kasey 3+ to Kasey 2+ sensors due to Omnipod compatibility not available with Kasey 3+ -Will see podiatry next year, -Follow up in 3 months Plan I spent 30 minutes in reviewing the record, seeing the patient and documenting in the medical record. Orders: Orders 2 AMB Glucose Monitoring Today E13.9 - Other specified diabetes mellitus without complications AMB Hemoglobin A1c Today E13.9 - Other specified diabetes mellitus without complications Medications: New 2 blood-glucose sensor (FreeStyle Kasey 2 Plus Sensor device) As directed every 15 days 2 ea 6RF E13.9 - Other specified diabetes mellitus without complications Discontinued 2 FreeStyle Kasey 3 Plus Sensor (blood-glucose sensor) Discontinued Reason: Doctor's Order As directed every 15 days 2 ea 11RF NS E13.9 - Other specified diabetes mellitus without complications Patient Instructions: Use Lispro 15 minutos antes de las comidas Aumente Tresiba a 14 unidades diarias Llame para concertar yuan kevon con la educadora cuanto tenga la bomba de insulina Coding Level of Care Code Est Pt Level 4 (39718) Diagnoses Type 1.5 diabetes, managed as type 1 E13.9
[2025-01-21 12:37] VITALS: BP 122/80; PULSE 100; O2SAT 96; BMI 19.2
[2025-01-21 12:45] LABS: Glucose, Whole Blood 244 mg/dL (60-115)
--- OUTSIDE RECORDS SUMMARY | 2025-01-21 18:16 | XMS_ITS | Data Portability ---
Author Organization [facility] Address [address] [place] [id number] Care Team Providers Care International Logistics Manager Name Role Phone HIM CCA OTHER Assessment Encounter Date Assessment Date Assessment LastModified by Organization Details LastModified Time 04/23/2024 04/23/2024 I have reviewed and agree with the assessment and plan as documented by the urologist physician. I provided real-time medical direction for this encounter and was immediately available to provide additional phone-based assistance as needed. History as noted in EMR and by urologist physician. I would add / emphasize: Patient seen [...] this. Patient was in agreement transported to [facility] subsequently. pallfather Not available 04/24/2024 14:02:36 Plan of Treatment Reminders Order Date Submit Date Provider Last Modified By Organization Details Last Modified Time Details Appointments None recorded. Lab rapid SARS CoV 2 Ag, QL [place], respiratory specimen [address], [id number] 5 14:47:38 rapid flu (A+B) [address], [id number] 14:47:39 Referral None recorded. Procedures None recorded. [...] Not Available Vitals Date Recorded Oxygen saturation Heart rate Body temperature Respiratory rate Systolic And Diastolic Provider Name and Address Organization Details Last Updated DateTime 5 87 % 104 /min 98.1 [degF] 16 /min 126/74 mm[Hg] Not Available [facility] - production 5 18:36:46 Social History None recorded. Functional Status None recorded. Mental Status None recorded. Family History Nothing Reported. Medical History No medical history recorded. Past Encounters Encounter ID Performer Location Encounter Start Date Encounter Closed Date Diagnosis/Indication Diagnosis SNOMED-CT Code Diagnosis ICD10 Code Diagnosis IMO Codes Diagnosis Note [id number] Dillon Galeano MD Main - [facility] [address] [place] [address] 04/23/2024 18:36:39 04/24/2024 20:56:44 Hypoxemia 796180460 R09.02 Health Concerns Section Related Observation LastModified by Organization Detai ls LastModified Time None Recorded Concern Status LastModified by Organization Details LastModified Time None Recorded Advance Directives Directive None Recorded Payers Insurance Date Sequence Insurance Name Policy Number Policy Tomlin Covered Member ID Tomlin Member ID Guarantor Name 04/23/2024 1 [facility] - DOS ON OR AFTER 2022 - DUAL ELIGIBLE - [employer] OPTIONS AND ONE CARE (MEDICARE REPLACEMENT/ADV ANTAGE - HMO) Hubert Rios [id number] Hubert Rios Notes Date Note Type Note [...] does not report any new symptoms- [place] Therapeutic Recreation Leader Organization Information for [employer] Name: [employer] Address: [address] [place] [address], Client Delivery Manager: Gucci King MD [facility] No.: [id number] Therapeutic Recreation Leader POC Test Results from [facility] - ALS Rapid COVID antigen (18:34:09) COVID: - Attachments uploaded as part of this test result can be found under Documents section. Rapid influenza antigen (18:34:10) Flu: - Attachments uploaded as part of this test result can be found under Documents section. .................. .................. .................. .................. .................. .................. .................. ............... Therapeutic Recreation Leader Note From JohnAdán julio: Dispatched to above address for breathing problem. [...] to low 80s, HR increased to 115-120. [facility] contacted, advised of patient complaints, exam findings and test results. [facility] recommends transport to ER for further evaluation due to concerns for PE. Patient agrees with this plan. 911 called, Sam[facility]ONT[facility] responded. Verbal report given to [facility] Therapeutic Recreation Leader, took over patient care, will transport to [facility]. Sc8 clear. EOR. .................. .................. .................. .................. .................. .................. .................. ............... [facility] Consulted: Dillon Galeano .................. .................. .................. .................. .................. .................. .................. ............... Disposition: Fulfilled Dillon Galeano MD [address] [facility],[address], [place], [address], [facility] - GERSON DAWSON 04/24/2024 14:02:45
== END 2025-01-21 12:59 | disposition home or self-care (01) ==
LOC: HO.ENCR 12:12
PROVIDERS: PCP Internal Medicine Geriatric Medicine; Visit Provider Student in an Organized Health Care Education/Training Program
DX: E13.9 Other specified diabetes mellitus without complications (principal)
CPT/HCPCS: 99214

== ENCOUNTER → 2025-01-21 12:12 | Outpatient (BNVA) | payer OTHER, SELFPAY | PROVIDERS: PCP Internal Medicine Geriatric Medicine; Visit Provider Student in an Organized Health Care Education/Training Program | DX: E13.9 Other specified diabetes mellitus without complications (principal); Z96.41 Presence of insulin pump (external) (internal); E13.21 Other specified diabetes mellitus with diabetic nephropathy; E13.40 Other specified diabetes mellitus with diabetic neuropathy, unspecified | CPT/HCPCS: 82947; 83036; 95250; 99212 ==

== ENCOUNTER 2025-01-26 08:57 | Outpatient (AMB) | payer OTHER, SELFPAY ==
[2025-01-26 08:59] VITALS: BP 108/64; PULSE 74; O2SAT 97; BMI 19.2
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
--- OUTSIDE RECORDS SUMMARY | 2025-01-26 09:34 | XMS_ITS | Encounter Summary ---
Author Organization [employer] Address [address] [facility] 7t [place] [address] Care Team Providers Care Dipping Machine Operator Name Role Phone Name, Ananda CRANDALL Primary Care Provider Geeta Dove PharmD Unavailable [phone] Reason for Visit * Reason Comments Med Refill Encounter Details Date Type Department Care Team ([facility] st Contact Info) Description 02/28/[address] [facility] [address] [place], [place] [phone] Name, MD Ananda [address] [place] [address] Pain of left leg Social History Tobacco [...] Care Team (Late st Contact Info) Description 01/27/2025 10:00 AM EST Telemedicine [facility] [address] [place] [address] Geeta Dove, LoretoD [address] [place] [address] 02/05/2025 9:30 AM EST Office Visit [facility] [address] [place] [address] Natalie Davis, OD [address] [place] [address] 03/17/2025 9:00 AM EST Clinical Support [address] [address] Sonali Stubbs, RN [address] [place] [address] 04/05/2025 2:30 PM EST Office Visit [address] [address] Ananda Spain MD [address] [place] [address] documented as of this encounter Visit Diagnoses Diagnosis Pain of left leg documented in this encounter Additional Health Concerns Assessment Noted Time PHQ-9 Depression Total Score: 3 10/04/19 23 2:21 PM EDT documented as of this encounter Care Teams Dipping Machine Operator Relationship Specialty Start Date End Date NameAnanda MD [address] [place] [address] PCP - General Family Medicine 06/01/15 Geeta Dove PharmD [address] [place] [address] Pharmacist Internal Medicine 07/21/24 documented as of this encounter
--- OUTSIDE RECORDS SUMMARY | 2025-01-26 09:34 | XMS_ITS | Encounter Summary ---
Author Organization [employer] Address [address] [facility] 7t [place] [address] Care Team Providers Care Director Water And Waste Services Name Role Phone Name, Ananda CRANDALL Primary Care Provider [phone] Geeta Dove PharmD Unavailable [phone] Reason for Visit * Reason Onset Date Comments Durable Medical Equipment 09/18/2022 Encounter Details Date Type Department Care Team ([facility] st Contact Info) Description 09/18/2022 Telephone [facility] [address] [place], [place] [phone] Name, MD Ananda [address] [place] [address] Durable Medical Equipment Social History Tobacco Use [...] 1:49 PM EDT Incoming call from [facility] regarding message below. [facility] states they have no record of pt ever going to their offices and getting PT. Unsure what next steps should be at this point. * Telephone Encounter - Christy Finn RN - 09/21/2022 1:39 PM EDT TC X1 to [facility] [phone] regarding message below. LVM to return call to nurses. * Telephone Encounter - Lauren Walsh - 09/20/2022 3:14 PM EDT Tc from patient returning call back, regarding message below. Patient states he's going to PT in [facility]. [address] [place] [address] [facility] [place] [address] Dr. Mcdaniel. * Telephone Encounter - Christy [...] Info) Description 01/27/2025 10:00 AM EST Telemedicine [facility] [address] [place] [address] Geeta Dove PharmD [address] [place] [address] 02/05/2025 9:30 AM EST Office Visit [facility] [address] [place] [address] Natalie Davis, OD [address] [place] [address] 03/17/2025 9:00 AM EST Clinical Support [facility] [address] [place] [address] Sonali Stubbs, COREY [address] [place] [address] 04/05/2025 2:30 PM EST Office Visit [facility] [address] [place] [address] Name, MD Ananda [address] [place] [address] documented as of this encounter Visit Diagnoses Not on filedocumented in this encounter Care Teams Director Water And Waste Services Relationship Specialty Start Date End Date Name, MD Ananda [address] [place] [address] PCP - General Family Medicine 06/01/15 Geeta Dove, LoretoD [address] [place] [address] Pharmacist Internal Medicine 07/21/24 documented as of this encounter
--- OUTSIDE RECORDS SUMMARY | 2025-01-26 09:34 | XMS_ITS | Encounter Summary ---
Author Organization [employer] Address [address] [facility] [address] 7t [place] [address] Care Team Providers Care Garbage Collector Driver Name Role Phone Name, Ananda CRANDALL Primary Care Provider [phone] Geeta Dove PharmD Unavailable [phone] Reason for Visit * Reason Onset Date Comments case in lab 10/03/2022 Encounter Details Date Type Department Care Team ([facility] st Contact Info) Description 10/03/2022 Telephone [facility] [address] [place] [address] Kelvin Haque, LENNY [address] [place] [address] case in lab Social History Tobacco Use [...] 1 04/2022 2:21 PM Almita Kline * How difficult have these problems made it for you to do your work, take care of things at home, or get along with other people? Answer Date of Assessment Author Not difficult at all 10/03/2022 2:21 PM [...] - 10/03/2022 2:29 PM EDT Hubert from [employer] called in noel that the soonest they can get case back in to office would be 10/10. They stated it is 5 business days and does not include drop off or scrap picker date. Confirmed with Hubert that as of yet appt has not been scheduled to return and that I would inform officeDR documented in this encounter Plan of Treatment Upcoming Encounters Date Type Department Care Team (Late st Contact Info) Description 01/27/2025 10:00 AM EST Telemedicine [facility] [address] [place] [address] Geeta Dove PharmD [address] [place] [address] 02/05/2025 9:30 AM EST Office Visit [facility] [address] [place] [address] Natalie Davis, OD [address] [place] [address] 03/17/2025 9:00 AM EST Clinical Support [facility] [address] [place] [address] Sonali Stubbs, RN [address] [place] [address] 04/05/2025 2:30 PM EST Office Visit [facility] [address] [place] [address] NameAnanda MD [address] [place] [address] documented as of this encounter Visit Diagnoses Not on filedocumented in this encounter Additional Health Concerns Assessment Noted Time PHQ-9 Depression Total Score: 3 10/04/19 23 2:21 PM EDT documented as of this encounter Care Teams Garbage Collector Driver Relationship Specialty Start Date End Date Ananda Spain MD [address] [place] [address] PCP - General Family Medicine 06/01/15 Geeta Dove, Donte [address] [place] [address] Pharmacist Internal Medicine 07/21/24 documented as of this encounter
--- OUTSIDE RECORDS SUMMARY | 2025-01-26 09:34 | XMS_ITS | Encounter Summary ---
Author Organization [employer] Address [address] [place] [address] 7t [place] [address] Care Team Providers Care Product Evangelist Name Role Phone Name, Ananda CRANDALL Primary Care Provider [phone] Geeta Dove PharmD Unavailable [phone] Encounter Details Date Type Department Care Team ([facility] Contact Info) Description 05/10/2022 Orders Only [facility] [address] [place] [address] [phone] Alis Zavala, COREY Uncomplicated opioid dependence (CMS/HCC) [...] [facility]) Description 01/27/2025 10:00 AM EST Telemedicine [facility] [address] [place], [place] [phone] Geeta Dove, PharmD [address] [place], [place] [phone] 02/05/2025 9:30 AM EST Office Visit [facility] [address] [place] [address] Natalie Davis, OD [address] [place] [address] 03/17/2025 9:00 AM EST Clinical Support [facility] [address] [place] [address] Sonali Stubbs, COREY [address] [place] [address] 04/05/2025 2:30 PM EST Office Visit [facility] [address] [place] [address] Name, MD Anadna [address] [place] [address] documented as of this encounter Visit Diagnoses Diagnosis Uncomplicated opioid dependence (CMS/HCC) (HCC) documented in this encounter Care Teams Product Evangelist Relationship Specialty Start Date End Date Name, MD Ananda [address] [place] [address] PCP - General Family Medicine 06/01/15 Geeta Dove, Donte [address] [place] [address] Pharmacist Internal Medicine 07/21/24 documented as of this encounter
--- OUTSIDE RECORDS SUMMARY | 2025-01-26 09:34 | XMS_ITS | Encounter Summary ---
Author Organization [employer] Address [address] [facility] 7t [place] [address] Care Team Providers Care Cma Or Lpn Name Role Phone Name, Ananda CRANDALL Primary Care Provider [phone] Geeta Dove PharmD Unavailable [phone] Encounter Details Date Type Department Care Team ([facility] Contact Info) Description 03/28/[address] [facility] [address] [place] [address] Teresa Moody LPN Social History Tobacco Use [...] ([facility] Contact Info) Description 01/27/2025 10:[address] [facility] [address] [place], [place] [phone] Geeta Dove, PharmD [address] [place], [place] [phone] 02/05/2025 9:30 AM EST Office [address] [facility] [address] [place] [address] Natalie Davis, OD [address] [place] [address] 03/17/2025 9:00 AM EST Clinical Support [facility] [address] [place] [address] Sonali Stubbs, COREY [address] [place] [address] 04/05/2025 2:30 PM EST Office [facility] [address] [place] [address] Name, MD Ananda [address] [place] [address] documented as of this encounter Visit Diagnoses Not on filedocumented in this encounter Care Teams Cma Or Lpn Relationship Specialty Start Date End Date Name, MD Ananda [address] [place] [address] PCP - General Family Medicine 06/01/15 Geeta Dove PharmD [address] [place] [phone] Pharmacist Internal Medicine 07/21/24 documented as of this encounter
--- OUTSIDE RECORDS SUMMARY | 2025-01-26 09:34 | XMS_ITS | Encounter Summary ---
Author Organization [employer] Address [address] [place] [address] 7t [place] [address] Care Team Providers Care Chief Wellness Officer Name Role Phone Name, Ananda CRANDALL Primary Care Provider [phone] Geeta Dove PharmD Unavailable [phone] Reason for Visit * Reason Comments Med Refill Encounter Details Date Type Department Care Team (Late Contact Info) Description 04/25/2022 Refill [facility] [address] [place] [address] [phone] Name, MD Ananda [address] [place] [address] Wheezing (Primary Dx) Social History Tobacco Use [...] Department Care Team (Late Contact Info) Description 01/27/2025 10:00 AM EST Telemedicine [facility] [address] [place] [address] [phone] Geeta Dove PharmD [address] [place] [address] 02/05/2025 9:30 AM EST Office Visit [facility] OPTOMETRY [address] [place] [address] Natalie Davis, OD [address] [place] [address] 03/17/2025 9:00 AM EST Clinical Support [facility] [address] [place] [address] Sonali Stubbs, COREY [address] [place] [address] 04/05/2025 2:30 PM EST Office Visit [facility] [address] [place] [address] Name, MD Ananda [address] [place] [address] documented as of this encounter Visit Diagnoses Diagnosis Wheezing- Primary documented in this encounter Care Teams Chief Wellness Officer Relationship Specialty Start Date End Date Name, MD Ananda [address] [place] [address] PCP - General Family Medicine 06/01/15 Geeta Dove PharmD [address] [place] [address] Pharmacist Internal Medicine 07/21/24 documented as of this encounter
--- OUTSIDE RECORDS SUMMARY | 2025-01-26 09:34 | XMS_ITS | Encounter Summary ---
Author Organization [employer] Address [address] [facility] 7t [place] [address] Care Team Providers Care Dredge Pipeman Name Role Phone Name, Ananda CRANDALL Primary Care Provider [phone] Geeta Dove PharmD Unavailable Reason for Visit * Reason Onset Date Comments Durable Medical Equipment 06/08/2022 Encounter Details Date Type Department Care Team ([facility] st Contact Info) Description 06/08/2022 Telephone [facility] [address] [place], [place] [phone] Name, MD Ananda [address] [place] [address] Durable Medical Equipment Social History Tobacco Use [...] states unable to get a hold of shutdown coordinator and would like to know if PCP can send script directly to [facility] . Please contact at [phone] * Telephone Encounter - Arleen James - 06/11/2022 11:28 AM EDT TC to patient and informed him to contact his child day care center worker as a script for a recliner was emailed to her previously. Patient understood and agreed with plan. * Telephone Encounter - Darian Joiner - 06/08/2022 4:29 PM EDT Tc from pt requesting a script for a recliner chair to be send to [facility] please contact pt at [phone] documented in this encounter Plan of Treatment Upcoming Encounters Date Type Department Care Team (Late st Contact Info) Description 01/27/2025 10:00 AM EST Telemedicine [facility] MEDICINE [address] [place] [address] Geeta Dove, LoretoD [address] [place] [address] 02/05/2025 9:30 AM EST Office Visit [facility] OPTOMETRY [address] [place] [address] Natalie Davis, OD [address] [place] [address] 03/17/2025 9:00 AM EST Clinical Support [facility] MED[facility]INE [address] [place] [address] Sonali Stubbs, RN [address] [place] [address] 04/05/2025 2:30 PM EST Office Visit [address] [address] Name, MD Ananda [address] [place] [address] documented as of this encounter Visit Diagnoses Not on filedocumented in this encounter Care Teams Dredge Pipeman Relationship Specialty Start Date End Date Name, MD Ananda [address] [place] [address] PCP - General Family Medicine 06/01/15 Geeta Dove, Donte [address] [place] [address] Pharmacist Internal Medicine 07/21/24 documented as of this encounter
--- OUTSIDE RECORDS SUMMARY | 2025-01-26 09:34 | XMS_ITS | Encounter Summary ---
Author Organization [employer] Address [address] [place] [address] Care Team Providers Care Skilled Labor Name Role Phone Name, Ananda CRANDALL Primary Care Provider [phone] Geeta Dove PharmD Unavailable [phone] Reason for Visit * Reason Comments Med Refill Encounter Details Date Type Department Care Team ([facility] st Contact Info) Description 08/23/2024 Refill [facility] [address] [place], [place] [phone] Name, MD Ananda [address] [place] [address] Chronic obstructive pulmonary disease, unspecified COPD type (CMS/HCC) Social History Tobacco Use Types Packs/Day Years Used Date Smoking Tobacco: Every Day Cigarettes 2.7 14.5 Started: 07/21/2010 Passive Smoke Exposure: Current Smokeless [...] Info) Description 01/27/2025 10:00 AM EST Telemedicine [facility] [address] [place] [phone] Geeta Dove, PharmD [address] [place] [phone] 02/05/2025 9:30 AM EST Office Visit [facility] [address] [place] [phone] Natalie Davis, OD [address] [place] [phone] 03/17/2025 9:00 AM EST Clinical Support [facility] [address] [place] [phone] Sonali Stubbs, COREY [address] [place] [phone] 04/05/2025 2:30 PM EST Office Visit [facility] [address] [place] [phone] Name, MD Ananda [address] [place] [phone] documented as of this encounter Goals Goal Patient Goal Type Associated Problems Recent Progress Patient-Stated? Author Increase coping skills to promote long-term recovery and improve ability to perform daily activities General On track( 10:52 AM EDT) No Sonali Stubbs, RN Reduce tobacco use (cigarettes, smokeless, etc) Tobacco Use Improving( 9:48 AM EST) No Sonali Stubbs, RN Note: 1 cig per day documented as of this encounter Visit Diagnoses Diagnosis Chronic obstructive pulmonary disease, unspecified COPD type (CMS/HCC) (HCC) documented in this encounter Additional Health Concerns Assessment Noted Time PHQ-9 Depression Total Score: 5 07/16/19 11:03 AM EDT documented as of this encounter Care Teams Skilled Labor Relationship Specialty Start Date End Date Name, MD Ananda [address] [place] [phone] PCP - General Family Medicine 06/01/15 Geeta Dove PharmD [address] [place] [phone] Pharmacist Internal Medicine 07/21/24 documented as of this encounter
--- OUTSIDE RECORDS SUMMARY | 2025-01-26 09:34 | XMS_ITS | Clinical Summary ---
Author Organization [employer] Address [address] [place] [address] 7[address] [place] [address] Care Team Providers Care Investigator Cash Shortage Name Role Phone Name, Ananda CRANDALL Primary Care Provider [phone] Geeta Dove PharmD Unavailable Allergies No known active allergies Medications ramelteon (Rozerem) 8 MG tablet Take 1 tablet by mouth at bed time. Active Misc. Devices (Pulse Oximeter For Finger) miscIndications :COPD exacerbation (CMS/HCC) ([facility]) 1 each 2 times daily. Call [facility] if consistently < 95% 1 each 023 Active clonazePAM (KlonoPIN) 1 MG tablet Take 1 mg by mouth 2 times daily. 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 90 tablet 1 01/19/20 25 1:09 PM EST 025 Active varenicline (Chantix) 1 MG tabletIndicatio ns:Tobacco dependence Take 1 tablet (1 mg) by mouth 2 times daily. Take with full glass of water. 56 tablet 4 025 Active Continuous Glucose Sensor (FreeStyle Kasey 3 Plus Sensor) misc 2 each every 8 (eight) hours. Active Multiple Vitamin (Multivitamin) tablet TAKE 1 TABLET BY MOUTH EVERY DAY WITH FOOD 90 tablet 3 025 Active ipratropium-alb uterol (Duo-Neb) 0.5-2.5 mg/3 mL nebulizer solution INHALE 1 AMPULE USING A NEBULIZER EVERY 6 HOURS NEEDED FOR WHEEZING OR SHORTNESS OF BREATH 025 Active FreeStyle Precision Isak Test test stripIndication s:Type 2 diabetes mellitus with hyperglycemia, with long-term current use of insulin ([facility]) USE TO TEST BLOOD SUGAR THREE TIMES DAILY 100 strip 3 Active Alcohol Swabs (Alcohol Prep) 70 % pads USE FOUR TIMES DAILY DIRECTED 100 each 11 Active albuterol (2.5 MG/3ML) 0.083% nebulizer solution Take 2.5 mg by nebulization every 6 (six) hours if needed for wheezing. Active Acetaminophen Extra Strength 500 MG tabletIndicatio ns:Cough in adult patient TAKE 1 TABLET BY MOUTH THREE TIMES DAILY 90 tablet 2 01/19/20 25 1:09 PM EST Active sennosides (Nanci-deanna) 8.6 MG tabletIndicatio ns:Constipation , unspecified constipation type TAKE 2 TABLETS BY MOUTH ONCE DAILY NEEDED FOR CONSTIPATION 60 tablet 5 Active predniSONE (Deltasone) 10 MG tabletIndicatio ns:COPD exacerbation (CMS/HCC) ([facility]) Take by oral route daily. 6 tabs (=60mg) on day 1-2; 5 tabs (=50mg) on day 3-4; 4 tabs (=40mg) on day 5-6; 3 tabs (=30mg) on day 7-8; 2 tabs (=20mg) on day 9-10; 1 tab on day 11-12; 1/2 tab on day 13-14 43 tablet Active Suboxone 8-2 MG SL filmIndications :Uncomplicated opioid dependence (CMS/HCC) ([facility]) Place 3 Film under the tongue Once per day. 84 Film 1 01/21/20 9:35 AM EST 2025 Active atorvastatin (Lipitor) 40 MG tabletIndicatio ns:Type 2 diabetes mellitus with hyperglycemia, with long-term current use of insulin ([facility]) TAKE 1 TABLET BY MOUTH EVERY DAY 90 tablet 1 Active Aspirin Low Dose 81 MG EC tabletIndicatio ns:Pain of left leg TAKE 1 TABLET BY MOUTH EVERY DAY IN THE MORNING 90 tablet 1 Active Fluticasone Furoate-Vilante rol (Breo Ellipta) 100-25 MCG/ACT aerosol powder Inhale 1 Inhalation Once per day. 28 each 3 01/21/20 25 9:35 AM EST Active Umeclidinium [place] (Incruse Ellipta) 62.5 MCG/ACT aerosol powder Inhale 1 Act (62.5 mcg) Once per day. 30 each 01/21/20 9:35 AM EST Active Trelegy Ellipta 200-62.5-25 MCG/ACT aerosol powder Inhale 1 puff 1 (one) time each day at the same time. 2024 Discontinued(T herapy completed) atorvastatin (Lipitor) 40 MG tabletIndicatio ns:Type 2 diabetes mellitus with hyperglycemia, with long-term current use of insulin (HCC) TAKE 1 TABLET BY MOUTH EVERY DAY DIRECTED 90 tablet 1 2024 Discontinued aspirin (Aspirin Low Dose) 81 MG EC tabletIndicatio ns:Pain of left leg TAKE 1 TABLET BY MOUTH DAILY IN THE MORNING 90 tablet 1 2024 Discontinued Suboxone 8-2 MG SL filmIndications :Uncomplicated opioid dependence (CMS/HCC) (HCC) Place 3 Film under the tongue Once per day. 84 Film 1 2024 Discontinued(R eorder (will not trigger notification to Pharmacy)) predniSONE (Deltasone) 10 MG tabletIndicatio ns:COPD exacerbation (CMS/HCC) (HCC) Take by oral route daily. 6 tabs (=60mg) on day 1-2; 5 tabs (=50mg) on day 3-4; 4 tabs (=40mg) on day 5-6; 3 tabs (=30mg) on day 7-8; 2 tabs (=20mg) on day 9-10; 1 tab on day 11-12; 1/2 tab on day 13-14 43 tablet 2024 Discontinued(R eorder (will not trigger notification to Pharmacy)) azithromycin (Zithromax) 250 MG tabletIndicatio ns:COPD exacerbation (CMS/HCC) (HCC) Take 2 tablets (500 mg) by mouth Once per day for 1 day, THEN 1 tablet (250 mg) Once per day for 4 days. 6 tablet 2024 Active Problems Problem Noted Date Diagnosed Date COPD exacerbation (CMS/HCC) 10/16/2024 Assessment & Plan (01/12/2025 11:19 AM EST): Orders: predniSONE (Deltasone) 10 MG tablet; Take by oral route daily. 6 tabs (=60mg) on day 1-2; 5 tabs (=50mg) on day 3-4; 4 tabs (=40mg) on day 5-6; 3 tabs (=30mg) on day 7-8; 2 tabs (=20mg) on day 9-10; 1 tab on day 11-12; 1/2 tab on day 13-14 azithromycin (Zithromax) 250 MG tablet; Take 2 tablets (500 mg) by mouth Once per day for 1 day, THEN 1 tablet (250 mg) Once per day for 4 days. Assessment & Plan (10/16/2024 11:04 AM EDT): Patient has pulmonology appointment on 10/21/2024 at 10 am at [facility], [address] [address], I advise not to miss this appointment [...] and left lower lobe calcified large granuloma. [place] [address] [address] Scan Report Signed Patient: Hubert Rios MR#: [id number] : 1965 Acct:[id number] Age/Sex: 59 / M ADM Date: 07/02/24 Loc: HO.CT Attending Dr: Chanel Thomas NP Ordering Physician: Chanel Thomas NP Date of Service: 07/02/24 Procedure(s): CT chest wo IV con Accession Number(s): [id number] cc: Ananda Spain MD; Chanel Thomas NP Report Number: [id number]: Total DLP = 110.00 mGy-cm EXAMINATION: CT [...] 12/19/2011 Opioid dependence 08/15/2011 Assessment & Plan (01/19/2025 11:17 PM EST): - in maintenance stage, long-term [...] support and recovery effort Assessment & Plan (11/24/2024 9:47 PM EDT): [...] Encounters Date Type Department Care Team Description 01/21/2025 Orders Only GENERIC EXTERNAL DATA DEPARTMENT Provider, Generic External Data 01/20/2025 9:15 AM EST Office Visit [facility] [address] [place] [address] Latrice Ibrahim MD Uncomplicated opioid dependence (CMS/HCC) (HCC) (Primary Dx) 01/18/2025 3:15 PM EST Office Visit [facility] [address] [place] [address] Ananda Spain MD Chronic obstructive pulmonary disease, unspecified COPD type (CMS/HCC) (HCC) (Primary Dx); Encounter for immunization; Vaccination refused by patient; Type 2 diabetes mellitus with hyperglycemia, with long-term current use of insulin (HCC) 01/18/2025 Travel 01/17/2025 Refill [facility] [place] [address] Ananda Spain MD Type 2 diabetes mellitus with hyperglycemia, with long-term current use of insulin (HCC); Pain of left leg 01/13/2025 Refill [facility] [address] [facility] [place] [address] Sonali Stubbs, RN Uncomplicated opioid dependence (CMS/HCC) (HCC) 01/12/2025 11:00 AM EST Office Visit [facility] [address] [place] [address] Alondra Montalvo MD COPD with acute exacerbation (CMS/HCC) ([facility]) (Primary Dx); COPD exacerbation (CMS/HCC) (HCC) 01/12/2025 Travel 01/05/2025 Refill [facility] [address] [facility] [place] [address] PuiaGeeta, PharmD Tobacco dependence 12/29/2024 9:00 AM EDT Telemedicine [facility] [address] [place] [address] PuiaMiguelGeeta, PharmD Tobacco dependence (Primary Dx) 12/18/2024 Refill [facility] [address] [place] [address] Ananda Spain MD Constipation, unspecified constipation type 12/17/2024 10:20 AM EDT [facility] [address] [address] Luis Espinoza MD COPD exacerbation (CMS/HCC) (HCC) (Primary Dx) 12/17/2024 Travel 12/11/[address] [facility] [address] [address] Ananda Spain MD Cough in adult patient 12/02/2024 Orders Only GENERIC EXTERNAL DATA DEPARTMENT Provider, Generic External Data 11/27/2024 9:00 AM EDT Telemedicine [address] [address] Geeta Dove PharmD Tobacco dependence (Primary Dx) 11/25/2024 9:15 AM EDT Office Visit [address] [address] Latrice Ibrahim MD Uncomplicated opioid dependence (CMS/HCC) (Primary Dx) 11/25/2024 Travel 11/24/[address] [address] Ananda Spain MD 11/23/2024 Orders Only GENERIC EXTERNAL DATA DEPARTMENT Provider, Generic External Data 11/18/[address] [address] Sonali Stubbs, COREY Uncomplicated opioid dependence (CMS/HCC) 11/06/[address] [address] Ananda Spain MD CHARTPREP 11/05/2024 Orders Only [facility] External Provider, [facility] 10/28/2024 9:00 AM EDT Office Visit [address] [address] Latrice Ibrahim MD Uncomplicated opioid dependence (CMS/HCC) (Primary Dx) 10/28/2024 Travel 10/27/[address] [address] Latrice Ibrahim MD CHART PREP from Last 3 Months Immunizations Immunization Administration [...] tox oid, preservative free, adsorbed 08/14/2014 Tdap 01/18/2025,05/25/2011 Zoster, Recombinant 01/11/2018 Social History Tobacco Use [...] Sign Reading Time Taken Comments Blood Pressure 120/78 01/18/2025 2:48 PM EST Pulse 97 01/18/2025 2:48 PM EST Temperature 36.1 C (97 F) 01/18/2025 2:48 PM EST Respiratory Rate 20 01/18/2025 2:48 PM EST Oxygen Saturation 97% 01/18/2025 2:48 PM EST Inhaled Oxygen Concentration - - Weight 54.3 kg (119 lb 12.8 oz) 01/18/2025 2:48 PM EST Height 168.9 cm (5' 6.5 ) 01/18/2025 2:48 PM EST Body Mass Index 19.05 01/18/2025 2:48 PM EST Plan of Treatment Upcoming Encounters Date Type Department Care Team (Late st Contact Info) Description 01/27/2025 10:00 AM EST Telemedicine [facility] [address] [place] [address] Geeta Dove, PharmD [address] [place] [address] 02/05/2025 9:30 AM EST Office Visit [facility] [address] [place] [address] Natalie Davis, OD [address] [place] [address] 03/17/2025 9:00 AM EST Clinical Support [facility] [address] [place] [address] Sonali Stubbs, COREY [address] [place] [address] 04/05/2025 2:30 PM EST Office Visit [facility] [address] [place] [phone] Name, [place] [address] Health Maintenance Due Date Last Done Comments CT Colonography 1965 Dental Oral Exam 1966 Dental Prophylaxis 1966 Dental X-Ray: Bitewings 1966 Dental X-Ray: Full Mouth 1966 FIT DNA/Cologuard 1966 FIT 1966 FOBT 1965 Sigmoidoscopy 1966 Alcohol/Substance Use Screening 1978 Lung Cancer Screening 2016 RSV Patients and Patients Aged 60 years or older (1 - Risk 50-74 years 1-dose series) 2016 Zoster Vaccines (2 of 2) 03/08/2018 01/11/2018 Colonoscopy 08/15/2020 08/16/2015 Colorectal Cancer Screening 08/15/2020 Diabetes: Foot Exam 07/23/2024 07/24/2023, 07/24/2023, 07/24/2023, Additional history exists COVID-19 Vaccine ( season) 2024 02/10/2021, 05/18/2020 Influenza Vaccine (#1) 2024 , 11/20/2023, 01/21/2023, Additional history exists Diabetes: Hemoglobin A1C 04/20/2025 025, 10/13/2024, 07/15/2024, Additional history exists Lipid Panel 05/27/2025 05/27/2024, 05/02, 02/13/2022, Additional history exists Diabetes: Urine Protein Screening 05/29/2025 05/29/2024, 05/14/2023, 02/13/2022, Additional history exists Depression Screening 07/15/2025 07/15/2024, 07/16/19 25 Disability Screening 07/15/2025 07/15/2024 SDOH Screening 07/15/2025 07/15/2024 Tobacco Screening 01/20/2026 01/20/2025 Eye Exam 08/06/2026 08/06/2024, 0607/2024, 08/06/2024, Additional history exists DTaP/Tdap/Td Vaccines (4 - Td or Tdap) 01/18/2035 01/18/2025, 08/14/2014, 05/25/2011 Hepatitis A Vaccines Aged Out 05/11/2009 No [...] Stubbs, RN Note: 1 cig per day Help patients manage their type 2 diabetes Care Plan Help patients manage their type 2 diabetes No Sonali Stubbs, RN Patient has chronic kidney disease Care Plan Patient has chronic kidney disease No Sonali Stubbs RN Patient has chronic kidney disease Care Plan Patient has chronic kidney disease No Jonathan Tuttle MA Patient has chronic kidney disease Care Plan Patient has chronic kidney disease No Latrice Ibrahim MD Procedures Procedure Name Priority Date/Time Associated Diagnosis Comments GLUCOSE, WHOLE BLOOD Routine 01/21/2025 12:40 PM EST POCT FARA-14 URINE DRUG SCREEN Routine 01/20/2025 9:05 AM EST Uncomplicated opioid dependence (CMS/HCC) (HCC) POCT GLYCOSYLATED HEMOGLOBIN (HGB A1C) Routine 01/18/2025 3:23 PM EST Type 2 diabetes mellitus with hyperglycemia, with long-term current use of insulin (HCC) POCT GLUCOSE Routine 01/18/2025 3:22 PM EST Type 2 diabetes mellitus with hyperglycemia, with long-term current use of insulin (HCC) IMMUNOGLOBULIN E Routine 12/02/2024 8:10 AM EDT GLUCOSE, WHOLE BLOOD Routine 11/23/2024 9:21 AM EDT US RENAL COMPLETE Routine 11/05/2024 12: 39 PM EDT POCT FARA-14 URINE DRUG SCREEN Routine 10/28/2024 9:10 AM EDT Uncomplicated opioid dependence (CMS/HCC) ALBUMIN, RANDOM URINE W/CREATININE Routine 05/29/2024 [...] Maintenance Results * (ABNORMAL) Glucose, Whole Blood (01/21/2025 12:40 PM EST) Only the most recent of2 resultswithin the time period is included. Glucose, Whole Blood 244(H) 60 - 115 mg/dL [facility] Comment:METER #: [id number] 0Testing performed in the Endocrinology Department [address] , [address], [facility]. 01/21/2025 12:4 0 PM EST 01/21/2025 12:44 PM EST us Generic External Data Provider LAB BLOOD ORDERAB LES Final Result Performing Organization Address City/State/[facility] Co de Phone Number [facility] [address] [place] [phone] * (ABNORMAL) POCT FARA-14 Urine Drug Screen (01/20/2025 9:05 AM EST) Only the most recent of2 [...] obtained by clean catch procedure / Unknown 01/20/2025 9:05 AM EST us Latrice Ibrahim MD POINT OF CARE TEST ENTER/EDIT OR DERABLES Final Result * (ABNORMAL) POCT glycosylated hemoglobin (Hgb A1c) (01/18/2025 3:23 PM EST) Pathologist [facility] Hemoglobin A1C 8.3(A) 4.0 - 5.7 % QC Media Lot # [id number] Lot# Expiration Date Blood Capillary blood specimen / Unknown 01/18/2025 3:23 PM EST us Ananda Spain MD POINT OF CARE TEST ENTER/EDIT OR DERABLES Final Result * (ABNORMAL) POCT glucose manually resulted (01/18/2025 3:22 PM EST) [facility] Glucose Blood, POC 313(A) 60 - 200 mg/dL [facility] QC Media Lot # [id number] [facility] Lot# Expiration Date 504, [facility] Blood Capillary blood specimen / Unknown 01/18/2025 3:22 PM EST us Ananda Spain MD POINT OF CARE TEST ENTER/EDIT OR DERABLES Final Result Performing Organization Address [facility] Co de Phone Number [facility] [address] [place] [phone] * (ABNORMAL) Immunoglobulin E (12/02/2024 8:10 AM EDT) Pathologist [facility] Immunoglobulin E 373(A) <VV=073 kU/L [facility] Comment:THIS TEST WAS PERFOR MED AT:[employer] [place] [id number] GARCIA MD 12/02/2024 8:10 AM EDT 12/02/2024 8:10 AM EDT Generic External Data Provider LAB BLOOD ORDERAB LES Final Result Performing Organization Address [facility]/ZIP Co de Phone Number [facility] [address] [place] [phone] * US Renal Complete (11/05/2024 12:39 PM EDT) Anatomical Region Laterality Modality Kidney Ultrasound 11/05/2024 12:3 9 PM EDT Narrative 11/05/2024 3:49 PM EDT [address] [address] Ultrasound Report Signed Patient: Hubert Rios MR#: [id number] : 1965 Acct:[id number] Age/Sex: 59 / M ADM Date: 11/05/24 Loc: HO.US Attending Dr: Hipolito Mcdaniel MD Ordering Physician: Hipolito Mcdaniel MD Date of Service: 11/05/24 Procedure(s): US renal BI Accession Number(s): [id number] cc: Hipolito Mcdaniel MD; Name,Ananda CRANDALL Reason [...] 11/05/24 1546 DD/ 1239 TD/TT: 11/05/24 1250 Septic Cleaner: [facility] Procedure Note Donotuseinterpreter, Image - 11/05/2024 [place] [address] Ultrasound Report Signed Patient: Hubert Rios MMR#: [id number] : 1965Acct:[id number] Age/Sex: 59 / MADM Date: 11/05/24 Loc: HO.US Attending Dr: Hipolito Mcdaniel MD Ordering Physician: Hipolito Mcdaniel MD Date of Service: 11/05/24 Procedure(s): US renal BI Accession Number(s): [id number] cc: Hipolito Mcdaniel MD; Name,Ananda CRANDALL Reason [...] 11/05/24 1546 DD/ 1239 TD/TT: 11/05/24 1250 Septic Cleaner: [facility] External Provider IMG US PROCEDURES Final Result * Albumin, Random Urine W/Creatinine (05/29/2024 8:43 AM EDT) Creatinine, Urine 126.68 mg/dL [facility] Microalbumin Urine 15.0 mg/L [facility] Microalbum Creatinine Ratio Ur 11.8 <30 ug/mg cr [facility] Comment:Albumin/Creatinine R atio Reference Ranges: Normal: < 30 ug/mg creatinine Microalbuminuria: 30 - 300 ug/mg creatinineClinical Albuminuria: > 300 ug/mg creatinine 05/29/2024 8:43 AM EDT 05/29/2024 9:05 AM EDT us Generic External Data Provider LAB URINE ORDERAB LES Final Result [facility] [address] [place] [phone] * (ABNORMAL) Lipid Panel, Standard (05/27/2024 8:40 AM EDT) Triglycerides 73 <150 mg/dL [facility] Comment:Desirable Triglyceri de: less than 150 mg/dLBorderline High Triglyceride 150-199 mg/dLHigh Triglyceride: 200-499 mg/dLVery High Triglyceride: greater than or equal to 5OO mg/dL Cholesterol 221(H) <200 mg/dL [facility] Comment:Desirable Cholestero l: less than 200 mg/dLBorderline High Cholesterol: 200-239 mg/dLHigh Cholesterol: greater than 239 mg/dL LDL Cholesterol Calculated 75 <100 mg/dL [facility] Comment:Desirable LDL: less than 100 mg/dLNear Optimal/Above Optimal LDL: 110- 129 mg/dLBorderline High LDL: 130-159 mg/dLHigh LDL: 160-189 mg/dLVery High LDL: greater than or equal to 190 mg/dL HDL Cholesterol 132 >40 mg/dL [facility] Comment:Desirable HDL: great er than 40 mg/dL Note: This HDL assay may give artificially low results in patients with liver disease. Blood Venous blood specimen / Unknown 05/27/2024 8:40 AM EDT 05/27/2024 8:40 AM EDT us Ananda Spain MD LAB BLOOD ORDERABLES Final Resul t Performing Organization Address [facility] Co de Phone Number [facility] [address] [place] [phone] * (ABNORMAL) Hepatitis C Antibody with Reflex to HCV, RNA, Quantitative, Real- Time PCR (03/29/2023 9:12 AM EST) Hepatitis C Antibody Reactive( A) Nonreactive [facility] Comment:Presumptive evidence of antibodies to HCV. 03/29/2023 9:12 AM EST 03/29/2023 11:11 AM EST Latrice Ibrahim MD LAB BLOOD ORDERABLES Final Resul t Performing Organization Address [facility] de Phone Number [facility] [address] [place] [phone] * HIV-1/2 Antigen and Antibodies, Fourth Generation, with Reflexes (03/29/2023 9:12 AM EST) HIV AB/AG Nonreactive Nonreactive [facility] Comment:HIV-1 p24 Ag and/or HIV-1/HIV-2 Ab not detected.A test result that is nonreactive does not exclude thepossibility of exposure to or infection with HIV-1 and/orHIV-2. Nonreactive results in this assay for individualswith prior exposure to HIV-1 and/or HIV-2 may be due toantigen and antibody levels that are below the limit ofdetection of this assay.[employer] HIV Ag/Ab Combo assay result andsupplemental assay results should be interpreted inconjunction with the patient's clinical presentation,history and other laboratory results. If the results areinconsistent with clinical evidence, additional testing issuggested to confirm the result. 03/29/2023 9:12 AM EST 03/29/2023 11:11 AM EST us Latrice Ibrahim MD LAB BLOOD ORDERABLES Final Resul t [facility] [address] [place] [phone] [phone] * Hm Colonoscopy (08/16/2015 1:52 PM EDT) Colonoscopy Normal Normal Narrative Gloria Álvarez - 08/16/2015 1:52 PM EDT Recommended 10 year follow up us Historical Provider HEALTH MAINTENANCE Final Result from Last 3 Months or Most Recently Relevant to Health Maintenance Additional Health Concerns Active Problems Noted Date Diagnosed Date Help patients manage their type 2 diabetes 01/13 Patient has chronic kidney disease 01/13/2025 Patient has chronic kidney disease 01/18/2025 Patient has chronic kidney disease 01/19/2025 Insurance [facility] STANDARD [facility] ONE CARE < 65 Care Teams Investigator Cash Shortage Relationship Specialty Start Date End Date Name, MD Ananda [address] [place] [address] PCP - General Family Medicine 06/01/15 Geeta Dove, LoretoD [address] [place] [address] Pharmacist Internal Medicine 07/21/24
--- OUTSIDE RECORDS SUMMARY | 2025-01-26 09:34 | XMS_ITS | Encounter Summary ---
Author Organization [employer] Address [address] [place] [address] [address] [place] [address] Care Team Providers Care Photographic Engineer Name Role Phone Name, Ananda CRANDALL Primary Care Provider [phone] Geeta Dove PharmD Unavailable [phone] Encounter Details Date Type Department Care Team (Latest Contact Info) Description 01/06/2019 Abstract [facility] CONVERSIONS [...] Care Team ( st Contact Info) Description 01/27/2025 10:00 AM EST Telemedicine [facility] MEDICINE [address] [place] [phone] Geeta Dove, PharmD [address] [place] [address] 02/05/2025 9:30 AM EST Office Visit [facility] OPTOMETRY [address] [place] [address] Natalie Davis, OD [address] [place] [address] 03/17/2025 9:00 AM EST Clinical Support [facility] [address] [place] [phone] Sonali Stubbs, RN [address] [place] [address] 04/05/2025 2:30 PM EST Office Visit [facility] [address] [place] [phone] Name, MD Ananda [address] [place] [phone] documented as of this encounter Visit Diagnoses Not on filedocumented in this encounter Care Teams Photographic Engineer Relationship Specialty Start Date End Date Name, MD Ananda [address] [place] [phone] PCP - General Family Medicine 06/01/15 Geeta Dove, LoretoD [address] [place] [phone] Pharmacist Internal Medicine 07/21/24 documented as of this encounter
--- OUTSIDE RECORDS SUMMARY | 2025-01-26 09:34 | XMS_ITS | Encounter Summary ---
Author Organization [employer] Address [address] [place] [address] 7t [place] [address] Care Team Providers Care Human Resources Partner Name Role Phone Name, Ananda CRANDALL Primary Care Provider [phone] Geeta Dove PharmD Unavailable [phone] Encounter Details Date Type Department Care Team (Latest Contact Info) Description 01/09/2021 Abstract [facility] Dental, Provider, DDS Social History [...] Info) Description 01/27/2025 10:00 AM EST Telemedicine [facility] [address] [place] [address] Geeta Dove, PharmD 230 [place] [address] 02/05/2025 9:30 AM EST Office Visit [facility] [address] [place] [address] Natalie Davis, OD 267 [place] [address] 03/17/2025 9:00 AM EST Clinical Support [facility] [address] [place] [address] 66511 Sonali Stubbs, RN [address] [place] [address] 04/05/2025 2:30 PM EST Office Visit [facility] [address] [place] [address] 92426 Name, MD Ananda [address] [place] [address] documented as of this encounter Visit Diagnoses Not on filedocumented in this encounter Care Teams Human Resources Partner Relationship Specialty Start Date End Date Name, MD Ananda [address] [place] [address] 43325 PCP - General Family Medicine 06/01/15 Geeta Dove PharmD [address] [place] [address] 13708 Pharmacist Internal Medicine 07/21/24 documented as of this encounter
--- OUTSIDE RECORDS SUMMARY | 2025-01-26 09:34 | XMS_ITS | Encounter Summary ---
Author Organization [employer] Address [address] [facility] 7t [place] [address] Care Team Providers Care Fashion Model Name Role Phone Ananda Spain MD Primary Care Provider [phone] Geeta Dove PharmD Unavailable [phone] Reason for Visit * Reason Onset Date Comments ER Follow-up 09/26/2022 Encounter Details Date Type Department Care Team ([facility] st Contact Info) Description 09/26/[address] [facility] 230 [place], [place] [phone] Name, MD Ananda 230 [place] [address] ER Follow-up Social History Tobacco Use Types [...] 10:24 AM EDT T/c to pt. Through [facility] id - [id number] for below message, pt. Has [place] [facility] for non - pressure chronic ulcer of [...] in case of any new or worseningsymptoms. [facility] hours are reviewed. * Telephone Encounter - Hawa Morales - 10/01/2022 9:35 AM EDT Tc from pt returning call regarding message below. Please contact pt at [phone] (bulgarian speaker) * Telephone Encounter - Em Leblanc RN - 09/27/2022 3:29 PM EDT T/C to pt. On [phone] through [facility] id - [id number] for status check and to schedule follow up apt. No answer. LVM to call back on [phone]. * Telephone Encounter - Netta Alvares - 09/26/2022 11:04 AM EDT Tc from pt calling to advise PCP of an ER visit to [facility] [place]24[place]22 for surgery on the left leg. Pt advised will forward to team nurse for f/u. Please contact pt at [phone] (Romansh) documented in this encounter Plan of Treatment Upcoming Encounters Date Type Department Care Team (Late st Contact Info) Description 01/27/2025 10:[address] [facility] MED[facility]INE [address] [place] [address] 52664 Geeta Dove PharmD [address] [place] [address] 02/05/2025 9:30 AM EST Office Visit [facility] OPTOM[facility] [address] [place] [address] 47775 Natalie Davis, OD 267 [place] [address] 03/17/2025 9:00 AM EST Clinical Support [address] [address] Sonali Stubbs, COREY [address] [place] [address] 04/05/2025 2:30 PM EST Office Visit [address] [address] Name, MD Ananda [address] [place] [address] 31367 documented as of this encounter Visit Diagnoses Not on filedocumented in this encounter Care Teams Fashion Model Relationship Specialty Start Date End Date Name, MD Ananda [address] [place] [address] 72029 PCP - General Family Medicine 06/01/15 Geeta Dove PharmD [address] [place] [address] 09266 Pharmacist Internal Medicine 07/21/24 documented as of this encounter
--- OUTSIDE RECORDS SUMMARY | 2025-01-26 09:34 | XMS_ITS | Encounter Summary ---
Author Organization [email or web address] Address [address] [facility] 7t [place] [address] Care Team Providers Care Outsole Splicer Name Role Phone Name, Ananda CRANDALL Primary Care Provider [phone] Geeta Dove PharmD Unavailable [phone] Reason for Visit * Reason Comments Med Refill Encounter Details Date Type Department Care Team (Late Contact Info) Description 06/07/2022 Refill [facility] [address] [place] [address] [phone] Sebastián Graves MD 230 [place] [address] Pain of left leg Social History Tobacco [...] Upcoming Encounters Date Type Department Care Team ([facility] Contact Info) Description 01/27/2025 10:00 AM EST Telemedicine [facility] MED[facility] [address] [place] [address] 60252 Geeta Dove PharmD 230 [place] [address] 02/05/2025 9:30 AM EST Office Visit [facility] OPT[facility] 267 [place] [address] Natalie Davis, OD 267 [place] [address] 03/17/2025 9:00 AM EST Clinical Support [facility] [address] [place] [address] 679[address] Sonali Stubbs, COREY [address] [place] [address] 04/05/2025 2:30 PM EST Office Visit [facility] [address] [place] [address] 61267 Name, MD Ananda [address] [place] [address] 27741 documented as of this encounter Visit Diagnoses Diagnosis Pain of left leg documented in this encounter Care Teams Outsole Splicer Relationship Specialty Start Date End Date Name, MD Ananda [address] [place] [address] 51973 PCP - General Family Medicine 06/01/15 Geeta Dove, LoretoD [address] [place] [address] 57583 Pharmacist Internal Medicine 07/21/24 documented as of this encounter
--- OUTSIDE RECORDS SUMMARY | 2025-01-26 09:34 | XMS_ITS | Encounter Summary ---
Author Organization [employer] Address [address] [facility] [facility] [address] 7t [place] [address] Care Team Providers Care Class A Lineman Name Role Phone Name, Ananda CRANDALL Primary Care Provider [phone] Geeta Dove PharmD Unavailable [phone] Reason for Visit * Reason Comments Med Refill Encounter Details Date Type Department Care Team ([facility] st Contact Info) Description 09/19/2023 Refill [facility] [address] [place], [place] [phone] Name, MD Ananda 230 [place] [address] Pain of left leg Social History Tobacco [...] Info) Description 01/27/2025 10:00 AM EST Telemedicine [facility] MED[facility]INE [address] [place] [address] 89[address] Geeta Dove, LoretoD [address] [place] [address] 573[address] 02/05/2025 9:30 AM EST Office Visit [facility] OPTOM[facility] [address] [place] [address] Natalie Davis, OD [address] [place] [address] 03/17/2025 9:00 AM EST Clinical Support [facility] MED[facility] [address] [place] [address] 39[address] Sonali Stubbs, RN [address] [place] [address] 59[address] 04/05/2025 2:30 PM EST Office Visit [facility] [address] [place] [address] 19038 Name, MD Ananda [address] [place] [address] 54387 documented as of this encounter Visit Diagnoses Diagnosis Pain of left leg documented in this encounter Additional Health Concerns Assessment Noted Time PHQ-9 Depression Total Score: 024 9:15 AM EDT documented as of this encounter Care Teams Class A Lineman Relationship Specialty Start Date End Date Name, MD Ananda 230 [place] [address] PCP - General Family Medicine 06/01/15 Geeta Dove PharmD 230 [place] [address] Pharmacist Internal Medicine 07/21/24 documented as of this encounter
--- OUTSIDE RECORDS SUMMARY | 2025-01-26 09:34 | XMS_ITS | Encounter Summary ---
Author Organization [employer] Address [address] [place] [address] 7t [place] [address] Care Team Providers Care Fence Making Machine Operator Name Role Phone Name, Ananda CRANDALL Primary Care Provider [phone] Geeta Dove PharmD Unavailable [phone] Encounter Details Date Type Department Care Team ([facility] Contact Info) Description 08/13/2022 Abstract [facility] MEDICINE [address] [place] [address] [phone] Name, MD Ananda [address] [place] [address] 38[address] Social History Tobacco Use Types Packs/Day Years [...] Team ([facility] Contact Info) Description 01/27/2025 10:00 AM EST Telemedicine [facility] MEDICINE [address] [place] [address] [phone] Puia, Geeta, PharmD 230 [place] [address] 02/05/2025 9:30 AM EST Office Visit [facility] OPTOMETRY 267 [place] [address] Natalie Davis, OD 267 [place] [address] 03/17/2025 9:00 AM EST Clinical Support [facility] MED[facility]INE 230 [place] [address] Sonali Stubbs, RN 230 [place] [address] 04/05/2025 2:30 PM EST Office Visit [address] [address] Name, MD Ananda [address] [place] [address] 68134 documented as of this encounter Procedures Procedure [...] on filedocumented in this encounter Care Teams Fence Making Machine Operator Relationship Specialty Start Date End Date Name, MD Ananda [address] [place] [address] 14331 PCP - General Family Medicine 06/01/15 Geeta Dove PharmD [address] [place] [address] 90928 Pharmacist Internal Medicine 07/21/24 documented as of this encounter
--- OUTSIDE RECORDS SUMMARY | 2025-01-26 09:34 | XMS_ITS | Encounter Summary ---
Author Organization [employer] Address [address] [facility] 7t [place] [address] Care Team Providers Care County Sheriff Name Role Phone Name, Ananda CRANDALL Primary Care Provider [phone] Geeta Dove PharmD Unavailable [phone] Reason for Visit * Reason Onset Date Comments Appointment 09/06/2022 Encounter Details Date Type Department Care Team ([facility] st Contact Info) Description 09/06/2022 Telephone [facility] 230 [place] [address] Kelvin Haque DDS 230 [place], [place] [phone] Appointment Social History Tobacco Use Types Packs/Day [...] Info) Description 01/27/2025 10:00 AM EST Telemedicine [facility] MEDICINE [address] [place] [address] 86[address] Geeta Dove PharmD [address] [place] [address] 75[address] 02/05/2025 9:30 AM EST Office Visit [facility] OPTOMETRY [address] [place] [address] 0[address] Natalie Davis, OD [address] [place] [address] 267[address] 03/17/2025 9:00 AM EST Clinical Support [facility] MED[facility] [address] [place] [address] 11747 Sonali Stubbs, RN [address] [place] [address] 025[address] 04/05/2025 2:30 PM EST Office Visit [address] [address] Name, MD Ananda [address] [place] [address] 30505 documented as of this encounter Visit Diagnoses Not on filedocumented in this encounter Care Teams County Sheriff Relationship Specialty Start Date End Date Name, MD Ananda [address] [place] [address] 51309 PCP - General Family Medicine 06/01/15 Geeta Dove PharmD [address] [place] [address] 82758 Pharmacist Internal Medicine 07/21/24 documented as of this encounter
--- OUTSIDE RECORDS SUMMARY | 2025-01-26 09:34 | XMS_ITS | Encounter Summary ---
Author Organization [employer] Address 75 [facility] 7t [place] [address] Care Team Providers Care Health Information Provider Name Role Phone Name, Ananda CRANDALL Primary Care Provider [phone] Geeta Dove PharmD Unavailable [phone] Encounter Details Date Type Department Care Team ([facility] Contact Info) Description 02/14/2022 Abstract [facility] [address] [place] [address] [phone] Provider, MD Damari Social History Tobacco Use [...] Upcoming Encounters Date Type Department Care Team ([facility] Contact Info) Description 01/27/2025 10:00 AM EST Telemedicine [facility] 230 [place] [address] Geeta Dove, PharmD 230 [place] [address] 02/05/2025 9:30 AM EST Office Visit [facility] OPTOMETRY 267 [place] [address] Griseldaclara Natalie, OD 267 [place] [address] 03/17/2025 9:00 AM EST Clinical Support [facility] 230 [place] [address] Sonali Stubbs, RN 230 [place] [address] 04/05/2025 2:30 PM EST Office Visit [address] [address] Name, MD Ananda [address] [place] [address] 228[address] documented as of this encounter Visit Diagnoses Not on filedocumented in this encounter Care Teams Health Information Provider Relationship Specialty Start Date End Date Name, MD Ananda [address] [place] [address] 31274 PCP - General Family Medicine 06/01/15 Geeta Dove PharmD [address] [place] [address] 24093 Pharmacist Internal Medicine 07/21/24 documented as of this encounter
--- OUTSIDE RECORDS SUMMARY | 2025-01-26 09:34 | XMS_ITS | Encounter Summary ---
Author Organization [employer] Address 75 [facility] 7t [place] [address] Care Team Providers Care Breed To Wean Production Technician Name Role Phone Name, Ananda CRANDALL Primary Care Provider [phone] Geeta Dove PharmD Unavailable [phone] Reason for Visit * Reason Comments Med Refill Encounter Details Date Type Department Care Team ([facility] st Contact Info) Description 12/11/2023 Refill [facility] 230 [place], [place] [phone] Name, MD Ananda 230 [place] [address] Type 2 diabetes mellitus without complication, unspecified whether bicycle assembler insulin use ([facility]) Social History Tobacco Use Types [...] Info) Description 01/27/2025 10:00 AM EST Telemedicine [facility] MEDICINE [address] [place] [address] 9[address] Geeta Dove, PharmD [address] [place] [address] 10897 02/05/2025 9:30 AM EST Office Visit [facility] OPTOMETRY [address] [place] [address]65 Natalie Davis, OD [address] [place] [address] 03/17/2025 9:00 AM EST Clinical Support [facility]INE [address] [place] [address] 78663 Sonali Stubbs, RN [address] [place] [address] 447[address] 04/05/2025 2:30 PM EST Office Visit [facility] [address] [place] [address] 38790 Name, MD Ananda [address] [place] [address] 87596 documented as of this encounter Visit Diagnoses Diagnosis Type 2 diabetes mellitus without complication, unspecified whether long-term insulin use documented in this encounter Additional Health Concerns Assessment Noted Time PHQ-9 Depression Total Score: 10 024 9:15 AM EDT documented as of this encounter Care Teams Breed To Wean Production Technician Relationship Specialty Start Date End Date Name, MD Ananda 230 [place] [address] PCP - General Family Medicine 06/01/15 Geeta Dove PharmD 230 [place] [address] Pharmacist Internal Medicine 07/21/24 documented as of this encounter
--- OUTSIDE RECORDS SUMMARY | 2025-01-26 09:34 | XMS_ITS | Encounter Summary ---
Author Organization [employer] Address [address] [place] [address] 7t [place] [address] Care Team Providers Care Salesperson Shoes Name Role Phone Name, Ananda CRANDALL Primary Care Provider [phone] Geeta Dove PharmD Unavailable [phone] Reason for Visit * Reason Onset Date Comments Prior Authorization 05/07/2022 Appointment 05/07/2022 Encounter Details Date Type Department Care Team (Late st Contact Info) Description 05/07/2022 Telephone [facility] 230 [place] [address] Kelvin Haque DDS 230 [place], [place] [phone] Prior Authorization; Appointment Social History Tobacco Use [...] specify if for partial. Don't see if [facility] has approved partials for patient. Patient verifying. DR documented in this encounter Plan of Treatment Upcoming Encounters Date Type Department Care Team (Late st Contact Info) Description 01/27/2025 10:00 AM EST Telemedicine [facility] MEDICINE [address] [place] [address] 14436 Geeta Dove PharmD [address] [place] [address] 02/05/2025 9:30 AM EST Office Visit [facility] OPTOMETRY [address] [place] [address] 9[address] Natalie Davis, OD [address] [place] [address] 03/17/2025 9:00 AM EST Clinical Support [facility] MED[facility]INE [address] [place] [address] 83629 Sonali Stubbs, RN [address] [place] [address] 169[address] 04/05/2025 2:30 PM EST Office Visit [facility] [address] [place] [address] 24[address] Name, MD Ananda [address] [place] [address] 10716 documented as of this encounter Visit Diagnoses Not on filedocumented in this encounter Care Teams Salesperson Shoes Relationship Specialty Start Date End Date Name, MD Ananda [address] [place] [address] 6[address] PCP - General Family Medicine 06/01/15 Geeta Dove PharmD [address] [place] [address] 6[address]75 Pharmacist Internal Medicine 07/21/24 documented as of this encounter
--- OUTSIDE RECORDS SUMMARY | 2025-01-26 09:34 | XMS_ITS | Encounter Summary ---
Author Organization [employer] Address 75 [facility] 7t [place] [address] Care Team Providers Care Silver Chaser Name Role Phone Name, Ananda CRANDALL Primary Care Provider Geeta Dove PharmD Unavailable [phone] Encounter Details Date Type Department Care Team ([facility] Contact Info) Description 03/28/2023 Abstract [facility] MEDICINE 230 [place], [place] [phone] Name, MD Ananda 230 [place] [address] Social History Tobacco Use Types Packs/Day Years [...] 01/27/2025 10:00 AM EST Telemedicine [facility] MEDICINE [address] [place] [address] Geeta Dove, LoretoD [address] [place] [address] 02/05/2025 9:30 AM EST Office Visit [facility] OPTOMETRY [address] [place] [address] Natalie Davis, OD [address] [place] [address] 66[address] 03/17/2025 9:00 AM EST Clinical Support [address] [address] Sonali Stubbs, RN [address] [place] [address] 24[address] 04/05/2025 2:30 PM EST Office Visit [facility] MEDICINE [address] [place] [address] Ananda Spain MD [address] [place] [address] 42444 documented as of this encounter Visit Diagnoses Not on filedocumented in this encounter Additional Health Concerns Assessment Noted Time PHQ-9 Depression Total Score: 3 10/04/19 23 2:21 PM EDT documented as of this encounter Care Teams Silver Chaser Relationship Specialty Start Date End Date NameAnanda MD [address] [place] [address] [phone] PCP - General Family Medicine 06/01/15 Geeta Dove, LoretoD [address] [place] [address] [place] [address] Pharmacist Internal Medicine 07/21/24 documented as of this encounter
--- OUTSIDE RECORDS SUMMARY | 2025-01-26 09:35 | XMS_ITS | Encounter Summary ---
Author Organization [employer] Address [address] [place] [address] 7t [place] [address] Care Team Providers Care Irrigation Manager Name Role Phone Name, Ananda CRANDALL Primary Care Provider [phone] Geeta Dove PharmD Unavailable [phone] Reason for Visit * Reason Comments Med Refill Encounter Details Date Type Department Care Team (Late st Contact Info) Description 12/07/2022 Refill [facility] [address] [place] [address] Name, MD Ananda 230 [place] [address] Type 2 diabetes mellitus without complication, unspecified whether extermination inspector insulin use ([facility]); Type 2 diabetes mellitus without complication, with long-term current use of insulin ([facility]) Social History Tobacco Use [...] Info) Description 01/27/2025 10:00 AM EST Telemedicine [facility] [address] [place] [address] 84687 Geeta Dove PharmD 230 [place] [address] 02/05/2025 9:30 AM EST Office Visit [facility] OPT[facility] [address] [place] [address] Natalie Davis, OD 267 [place] [address] 03/17/2025 9:00 AM EST Clinical Support [facility] [address] [place] [address] Sonali Stubbs, COREY [address] [place] [address] 04/05/2025 2:30 PM EST Office Visit [facility] [address] [place] [address] 20743 Name, MD Ananda [address] [place] [address] documented as of this encounter Visit Diagnoses Diagnosis Type 2 diabetes mellitus without complication, unspecified whether fdc insulin use Type 2 diabetes mellitus without complication, with long-term current use of insulin (HCC) documented in this encounter Additional Health Concerns Assessment Noted Time PHQ-9 Depression Total Score: 3 10/04/19 23 2:21 PM EDT documented as of this encounter Care Teams Irrigation Manager Relationship Specialty Start Date End Date Ananda Spain MD [address] [place] [address] PCP - General Family Medicine 06/01/15 Geeta Dove PharmD [address] [place] [address] Pharmacist Internal Medicine 07/21/24 documented as of this encounter
--- OUTSIDE RECORDS SUMMARY | 2025-01-26 09:35 | XMS_ITS | Encounter Summary ---
Author Organization [employer] Address 75 [facility] 7t [place] [address] Care Team Providers Care Waterworks Chief Engineer Name Role Phone Name, Ananda CRANDALL Primary Care Provider [phone] Geeta Dove PharmD Unavailable [phone] Reason for Visit * Reason Comments Med Refill Encounter Details Date Type Department Care Team ([facility] st Contact Info) Description 03/08/2024 Refill [facility] MEDICINE 230 [place], [place] [phone] Name, MD Ananda 230 [place] [address] Chronic obstructive pulmonary disease, unspecified COPD type [...] Info) Description 01/27/2025 10:00 AM EST Telemedicine [facility] MEDICINE [address] [place] [address] Geeta Dove, PharmD [address] [place] [address] 02/05/2025 9:30 AM EST Office Visit [facility] OPTOMETRY [address] [place] [address] Natalie Davis, OD [address] [place] [address] 03/17/2025 9:00 AM EST Clinical Support [facility] MED[facility]INE [address] [place] [address] Sonali Stubbs, COREY [address] [place] [address] 04/05/2025 2:30 PM EST Office Visit [address] [address] Name, MD Ananda [address] [place] [address] 7[address] documented as of this encounter Visit Diagnoses Diagnosis Chronic obstructive pulmonary disease, unspecified COPD type (CMS/HCC) (HCC) documented in this encounter Additional Health Concerns Assessment Noted Time PHQ-9 Depression Total Score: 10 024 9:15 AM EDT documented as of this encounter Care Teams Waterworks Chief Engineer Relationship Specialty Start Date End Date Name, MD Ananda 230 [place] [address] PCP - General Family Medicine 06/01/15 Geeta Dove, Donte 230 [place] [address] Pharmacist Internal Medicine 07/21/24 documented as of this encounter
--- OUTSIDE RECORDS SUMMARY | 2025-01-26 09:35 | XMS_ITS | Encounter Summary ---
Author Organization [employer] Address [address] [facility] 7t [place] [address] Care Team Providers Care Contract Project Manager Name Role Phone Name, Ananda CRANDALL Primary Care Provider [phone] Geeta Dove PharmD Unavailable Encounter Details Date Type Department Care Team ([facility] Contact Info) Description 01/21/2025 Orders Only GENERIC EXTERNAL DATA [...] Upcoming Encounters Date Type Department Care Team ([facility] st Contact Info) Description 01/27/2025 10:00 AM EST Telemedicine [facility] MEDICINE [address] [place] [address] Geeta Dove, LoretoD [address] [place] [address] 02/05/2025 9:30 AM EST Office Visit [facility] OPTOMETRY [address] [place] [address] Natalie Davis, OD [address] [place] [address] 03/17/2025 9:00 AM EST Clinical Support [facility] [address] [place] [address] Sonali Stubbs, COREY [address] [place] [address] 68[address] 04/05/2025 2:30 PM EST Office Visit [address] [address] Name, MD Ananda [address] [place] [address] documented as of this encounter Goals Goal Patient Goal Type Associated Problems Recent Progress Patient-Stated? Author Increase coping skills to promote long-term recovery and improve ability to perform daily activities General On track( 025 10:52 AM EDT) No Sonali Stubbs RN Reduce tobacco use (cigarettes, smokeless, etc) Tobacco Use Improving( 9:48 AM EST) No Sonali Stubbs RN Note: 1 cig per day Help patients manage their type 2 diabetes Care Plan Help patients manage their type 2 diabetes No Sonali Stubbs RN Patient has chronic kidney disease Care Plan Patient has chronic kidney disease No Sonali Stubbs RN Patient has chronic kidney disease Care Plan Patient has chronic kidney disease No Jonathan Tuttle MA Patient has chronic kidney disease Care Plan Patient has chronic kidney disease No Latrice Ibrahim MD documented as of this encounter Procedures Procedure Name Priority Date/Time Associated Diagnosis Comments GLUCOSE, WHOLE BLOOD Routine 01/21/2025 12:40 PM EST documented in this encounter Results * (ABNORMAL) Glucose, Whole Blood (01/21/2025 12:40 PM EST) Glucose, Whole Blood 244(H) 60 - 115 mg/dL [facility] Comment:METER #: [id number] 0Testing performed in the Endocrinology Department [address] , [address], [facility]. 01/21/2025 12:4 0 PM EST 01/21/2025 12:44 PM EST us Generic External Data Provider LAB BLOOD ORDERAB LES Final Result [facility] [address] [place] [phone] documented in this encounter Visit Diagnoses Not on filedocumented in this encounter Additional Health Concerns Active Problems Noted Date Diagnosed Date Help patients manage their type 2 diabetes 01/13 Patient has chronic kidney disease 01/13/2025 Patient has chronic kidney disease 01/18/2025 Patient has chronic kidney disease 01/19/2025 Assessment Noted Time PHQ-9 Depression Total Score: 5 07/16/19 25 11:03 AM EDT documented as of this encounter Care Teams Contract Project Manager Relationship Specialty Start Date End Date Name, MD Ananda [address] [place], [place] [phone] PCP - General Family Medicine 06/01/15 Geeta Dove, Donte [address] [place] [address] Pharmacist Internal Medicine 07/21/24 documented as of this encounter
== END 2025-01-26 09:25 | disposition home or self-care (01) ==
LOC: HO.HPSW 08:58
PROVIDERS: PCP Internal Medicine Geriatric Medicine; Visit Provider Nurse Practitioner Family
DX: J44.89 Other specified chronic obstructive pulmonary disease (principal); F17.210 Nicotine dependence, cigarettes, uncomplicated; R91.8 Other nonspecific abnormal finding of lung field
CPT/HCPCS: 99214

== ENCOUNTER → 2025-01-26 08:57 | Outpatient (BNVA) | payer OTHER, SELFPAY | PROVIDERS: PCP Internal Medicine Geriatric Medicine; Visit Provider Nurse Practitioner Family | DX: J44.89 Other specified chronic obstructive pulmonary disease (principal); R91.8 Other nonspecific abnormal finding of lung field; F17.210 Nicotine dependence, cigarettes, uncomplicated | CPT/HCPCS: 99212 ==

== ENCOUNTER → 2025-02-04 08:54 | Day surgery (SDC) | payer OTHER, SELFPAY ==
--- OUTSIDE RECORDS SUMMARY | 2024-12-29 09:00 | XMS_ITS | Encounter Summary ---
Author Organization [employer] Address [address] [place] [address] 7t [place] [address] Care Team Providers Care Linux Systems Administrator Name Role Phone Name, Ananda CRANDALL Primary Care Provider [phone] Geeta Dove PharmD Unavailable Reason for Visit * Consultation (Routine) - Pending Review Specialty Diagnoses / Procedures Referred By Contac t Referred To Contact Pharmacy Diagnoses Tobacco dependence Name, MD Ananda [address] [place] [address] Phone: tel: fax: Referral ID Status Reason Start Date Expiration Date Visits Requested Visits Authorized [id number] Pending Review Consult and Treat 06/10/2024 06/10/2025 6 6 Encounter Details Date Type Department Care Team ([facility] Contact Info) Description 12/29/2024 9:00 AM EDT Telemedicine [facility] MEDICINE 230 [place], [place] [phone] Geeta Dove, PharmD [address] [place], [place] [phone] Tobacco dependence (Primary Dx) Social History Tobacco [...] has no known allergies. Read/Write: Yes, in Ethiopian (but limited per patient report) Recent Hospitalizations: No Social History as reported by patient: Tobacco: Current, see discussion below Alcohol: Denies Caffeine: Current, 1 cup of coffee daily QAM Illicit drugs: Denies; tx with Suboxone via [facility] OBAT program x15 years Adherence / patient self-management Takes from vials Denies missed doses or purposeful omission of any medication d/t suspected PAULA Refill history demonstrates adherence. 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 Regardless, he is followed by [facility] endocrinology & is not a candidate for [...] yrs, last 08/2014) - due Preferred Pharmacy: [facility] - [address] [phone] Assessment/Plan: Smoking Cessation (Stage: Action) Pharmacotherapy: Varenicline 1 mg twice daily for 12-24 total weeks of therapy Goals of therapy per the [facility] Treating Tobacco Use and Dependence Clinical Practice [...] Description 01/18/2025 3:15 PM EST Office Visit [facility] MEDICINE [address] [place] [address] Name, MD Ananda [address] [place] [address] 01/20/2025 9:15 AM EST Office Visit [address] [address] Latrice Ibrahim MD [address] [place] [address] 01/27/2025 10:00 AM EST Telemedicine [facility] MEDICINE [address] [place] [address] Geeta Dove PharmD [address] [place] [address] 02/05/2025 9:30 AM EST Office Visit [facility] OPTOMETRY [address] [place] [address] Natalie Davis, OD 267 [place] [address] documented as of this encounter Goals Goal [...] documented as of this encounter Care Teams Linux Systems Administrator Relationship Specialty Start Date End Date Name, MD Ananda [address] [place] [address] PCP - General Family Medicine 06/01/15 Geeta Dove PharmD [address] [place] [address] Pharmacist Internal Medicine 07/21/24 documented as of this encounter
--- OUTSIDE RECORDS SUMMARY | 2025-01-01 06:58 | XMS_ITS | Encounter Summary ---
Author Organization [employer] Address [address] [facility] 7t [place] [address] Care Team Providers Care Combination Man Name Role Phone Name, Ananda CRANDALL Primary Care Provider [phone] Geeta Dove PharmD Unavailable [phone] Reason for Visit * Reason Comments Med Refill Encounter Details Date Type Department Care Team ([facility] Contact Info) Description 06/07/2022 Refill [facility] [address] [place] [address] [phone] Sebastián Graves MD [address] [place] [address] 60148 Pain of left leg Social History Tobacco [...] Encounters Date Type Department Care Team ([facility] Contact Info) Description 01/18/2025 3:15 PM EST Office Visit [facility] [address] [place] [address] [phone] Name, MD Ananda [address] [place] [address] 78[address] 01/20/2025 9:15 AM EST Office Visit [facility] [address] [place] [address] 45971 Latrice Ibrahim MD [address] [place] [address] 24798 01/27/2025 10:00 AM EST Telemedicine [facility] [address] [place] [address] 02836 Geeta Dove PharmD [address] [place] [address] 57[address] 02/05/2025 9:30 AM EST Office Visit [facility] [address] [place] [address] Natalie Davis OD [address] [place] [address] documented as of this encounter Visit Diagnoses Diagnosis Pain of left leg documented in this encounter Care Teams Combination Man Relationship Specialty Start Date End Date Name, MD Ananda [address] [place] [address] PCP - General Family Medicine 06/01/15 Geeta Dove PharmD [address] [place] [address] 42298 Pharmacist Internal Medicine 07/21/24 documented as of this encounter
--- OUTSIDE RECORDS SUMMARY | 2025-01-01 06:58 | XMS_ITS | Encounter Summary ---
Author Organization [employer] Address [address] [place] [address] 7t [place] [address] Care Team Providers Care Stogy Maker Name Role Phone Name, Ananda CRANDALL Primary Care Provider [phone] Geeat Dove PharmD Unavailable [phone] Reason for Visit * Reason Onset Date Comments Prior Authorization 05/07/2022 Appointment 05/07/2022 Encounter Details Date Type Department Care Team (Late st Contact Info) Description 05/07/2022 Telephone [facility] [address] [place] [address] Kelvin Haque DDS [address] [place], [place] [phone] Prior Authorization; Appointment Social History Tobacco Use [...] specify if for partial. Don't see if [facility] has approved partials for patient. Patient verifying. DR documented in this encounter Plan of Treatment Upcoming Encounters Date Type Department Care Team (Late st Contact Info) Description 01/18/2025 3:15 PM EST Office Visit [facility] [address] [place] [address] Name, MD Ananda [address] [place] [address] 14619 01/20/2025 9:15 AM EST Office Visit [address] [address] Latrice Ibrahim MD [address] [place] [address] 00[address] 01/27/2025 10:00 AM EST Telemedicine [facility] [address] [place] [address] 51684 Geeta Dove PharmD [address] [place] [address] 02/05/2025 9:30 AM EST Office Visit [facility] [address] [place] [address] TarkaNatalie, OD [address] [place] [address] documented as of this encounter Visit Diagnoses Not on filedocumented in this encounter Care Teams Stogy Maker Relationship Specialty Start Date End Date Name, MD Ananda [address] [place] [address]134 PCP - General Family Medicine 06/01/15 Geeta Dove PharmD [address] [place] [address]603 Pharmacist Internal Medicine 07/21/24 documented as of this encounter
--- OUTSIDE RECORDS SUMMARY | 2025-01-01 06:58 | XMS_ITS | Encounter Summary ---
Author Organization [employer] Address [address] [facility] 7t [place] [address] Care Team Providers Care Oil Pump Station Operator Chief Name Role Phone Name, Ananda CRANDALL Primary Care Provider [phone] Geeta Dove PharmD Unavailable [phone] Reason for Visit * Reason Comments Med Refill Encounter Details Date Type Department Care Team ([facility] st Contact Info) Description 12/11/2023 Refill [facility] [address] [place], [place] [phone] Name, MD Ananda [address] [place] [address] Type 2 diabetes mellitus without complication, unspecified whether predatory animal exterminator insulin use ([facility]) Social History Tobacco Use Types Packs/Day Years [...] 3:15 PM EST Office Visit [facility] [address] [place] [address] 27[address] Ananda Spain MD [address] [place] [address] 469[address] 01/20/2025 9:15 AM EST Office Visit [facility] [address] [place] [address] 6[address] Latrice Ibrahim MD [address] [place] [address] 01/27/2025 10:00 AM EST Telemedicine [facility] [address] [place] [address] 88774 Geeta Dove, PharmD [address] [place] [address] 02/05/2025 9:30 AM EST Office Visit [facility] [address] [place] [address] Natalie Davis, OD [address] [place] [address] documented as of this encounter Visit Diagnoses Diagnosis Type 2 diabetes mellitus without complication, unspecified whether group home insulin use documented in this encounter Additional Health Concerns Assessment Noted Time PHQ-9 Depression Total Score: 10 024 9:15 AM EDT documented as of this encounter Care Teams Oil Pump Station Operator Chief Relationship Specialty Start Date End Date Name, MD Ananda [address] [place] [address] PCP - General Family Medicine 06/01/15 Geeta Dove PharmD [address] [place] [address] Pharmacist Internal Medicine 07/21/24 documented as of this encounter
--- OUTSIDE RECORDS SUMMARY | 2025-01-01 06:58 | XMS_ITS | Encounter Summary ---
Author Organization [employer] Address [address] [place] [address] 7t [place] [address] Care Team Providers Care Chairman & Co Founder Name Role Phone Ananda Spain MD Primary Care Provider [phone] Geeta Dove PharmD Unavailable [phone] Reason for Visit * Reason Comments Med Refill Encounter Details Date Type Department Care Team (Late Contact Info) Description 04/25/2022 Refill [facility] [address] [place] [address] [phone] NameAnanda MD [address] [place] [address] [phone] Wheezing (Primary Dx) Social History Tobacco Use [...] Upcoming Encounters Date Type Department Care Team ([facility] Contact Info) Description 01/18/2025 3:15 PM EST Office Visit [facility] [address] [place] [address] [phone] Ananda Spain, MD [address] [place] [address] 9[address] 01/20/2025 9:15 AM EST Office Visit [facility] [address] [place] [address] 14136 Latrcie Ibrahim MD [address] [place] [address] 0[address] 01/27/2025 10:00 AM EST Telemedicine [facility] [address] [place] [address] 7[address]57 Geeta Dove PharmD [address] [place] [address] 25649 02/05/2025 9:30 AM EST Office Visit [facility] [address] [place] [address] Natalie Davis OD [address] [place] [address] documented as of this encounter Visit Diagnoses Diagnosis Wheezing- Primary documented in this encounter Care Teams Chairman & Co Founder Relationship Specialty Start Date End Date Name, MD Ananda [address] [place] [address] 6[address] PCP - General Family Medicine 06/01/15 Geeta Dove PharmD [address] [place] [address]48 Pharmacist Internal Medicine 07/21/24 documented as of this encounter
--- OUTSIDE RECORDS SUMMARY | 2025-01-01 06:58 | XMS_ITS | Encounter Summary ---
Author Organization [employer] Address [address] [facility] [address] 7t [place] [address] Care Team Providers Care Tire Retreader Name Role Phone Name, Ananda CRANDALL Primary Care Provider [phone] Geeta Dove PharmD Unavailable [phone] Reason for Visit * Reason Onset Date Comments case in lab 10/03/2022 Encounter Details Date Type Department Care Team ([facility] st Contact Info) Description 10/03/2022 Telephone [facility] [address] [place] [address] Kelvin Haque, LENNY [address] [place] [address] case in lab Social History Tobacco Use [...] - 10/03/2022 2:29 PM EDT Hubert from [facility] called in sttain that the soonest they can get case back in to office would be 10/10. They stated it is 5 business days and does not include drop off or excelsior picker date. Confirmed with Hubert that as of yet appt has not been scheduled to return and that I would inform officeDR documented in this encounter Plan of Treatment Upcoming Encounters Date Type Department Care Team (Late st Contact Info) Description 01/18/2025 3:15 PM EST Office Visit [facility] [address] [place] [address] Ananda Spain MD [address] [place] [address] 01/20/2025 9:15 AM EST Office Visit [facility] [address] [place] [address] Latrice Ibrahim MD [address] [place] [address] 01/27/2025 10:00 AM EST Telemedicine [facility] [address] [place] [address] Geeta Dove, PharmD [address] [place] [address] 02/05/2025 9:30 AM EST Office Visit [facility] [address] [place] [address] TarNatalie elizabeth, OD [address] [place] [address] documented as of this encounter Visit Diagnoses Not on filedocumented in this encounter Additional Health Concerns Assessment Noted Time PHQ-9 Depression Total Score: 3 10/04/19 23 2:21 PM EDT documented as of this encounter Care Teams Tire Retreader Relationship Specialty Start Date End Date Ananda Spain MD [address] [place] [address] PCP - General Family Medicine 06/01/15 Geeta Dove, Donte [address] [place] [address] Pharmacist Internal Medicine 07/21/24 documented as of this encounter
--- OUTSIDE RECORDS SUMMARY | 2025-01-01 06:58 | XMS_ITS | Encounter Summary ---
Author Organization [employer] Address [address] [place] [address] 7t [place] [address] Care Team Providers Care Foundry Supervisor Name Role Phone Name, Ananda CRANDALL Primary Care Provider [phone] Geeta Dove PharmD Unavailable [phone] Encounter Details Date Type Department Care Team (Latest Contact Info) Description 01/06/2019 Abstract [facility] CONVERSION[facility] Dental, Provider, DDS Social History [...] PM EST Office Visit [facility] [address] [place] [address] 59552 Name, MD Ananda [address] [place] [address] 01/20/2025 9:15 AM EST Office Visit [facility] [address] [place] [address] 38675 Latrice Ibrahim MD [address] [place] [address] 81270 01/27/2025 10:00 AM EST Telemedicine [facility] [address] [place] [address] 445[address] Geeta Dove PharmD [address] [place] [address] 02/05/2025 9:30 AM EST Office Visit [facility] [address] [place], [place] [phone] Griseldaclara Natalie, OD [address] [place] [address] documented as of this encounter Visit Diagnoses Not on filedocumented in this encounter Care Teams Foundry Supervisor Relationship Specialty Start Date End Date Name, MD Ananda [address] [place] [address] [phone] PCP - General Family Medicine 06/01/15 Geeta Dove, Donte [address] [place] [address] [phone] Pharmacist Internal Medicine 07/21/24 documented as of this encounter
--- OUTSIDE RECORDS SUMMARY | 2025-01-01 06:58 | XMS_ITS | Encounter Summary ---
Author Organization [employer] Address [address] [facility] [address] [place] [address] Care Team Providers Care Quality Control Tech Name Role Phone Name, Ananda CRANDALL Primary Care Provider [phone] Geeta Dove PharmD Unavailable [phone] Reason for Visit * Reason Comments Med Refill Encounter Details Date Type Department Care Team ([facility] st Contact Info) Description 09/19/2023 Refill [facility] [address] [place], [place] [phone] Name, MD Ananda [address] [place] [address] Pain of left leg Social History Tobacco [...] Description 01/18/2025 3:15 PM EST Office Visit [facility] [address] [place] [address] Name, MD Ananda [address] [place] [address] 01/20/2025 9:15 AM EST Office Visit [facility] [address] [place] [address] Latrice Ibrahim MD [address] [place] [address] 01/27/2025 10:00 AM EST Telemedicine [facility] [address] [place] [place] [address] 76[address] Geeta Dove, PharmD [address] [place] [address] 02/05/2025 9:30 AM EST Office Visit [facility] [address] [place] [address] Natalie Davis, OD [address] [place] [address] documented as of this encounter Visit Diagnoses Diagnosis Pain of left leg documented in this encounter Additional Health Concerns Assessment Noted Time PHQ-9 Depression Total Score: 10 024 9:15 AM EDT documented as of this encounter Care Teams Quality Control Tech Relationship Specialty Start Date End Date Name, MD Ananda [address] [place] [address] PCP - General Family Medicine 06/01/15 Geeta Dove PharmD [address] [place] [address] Pharmacist Internal Medicine 07/21/24 documented as of this encounter
--- OUTSIDE RECORDS SUMMARY | 2025-01-01 06:58 | XMS_ITS | Encounter Summary ---
Author Organization [employer] Address [address] [place] [address] 7t [place] [address] Care Team Providers Care Etymology Professor Name Role Phone Name, Ananda CRANDALL Primary Care Provider [phone] Geeta Dove PharmD Unavailable [phone] Encounter Details Date Type Department Care Team ([facility] Contact Info) Description 05/10/2022 Orders Only [facility] [address] [place] [address] Alis Zavala, COREY Uncomplicated opioid dependence (CMS/HCC) [...] Upcoming Encounters Date Type Department Care Team ([facility] Contact Info) Description 01/18/2025 3:15 PM EST Office Visit [facility] [address] [place] [address] [phone] Name, MD Ananda [address] [place] [address] 01/20/2025 9:15 AM EST Office Visit [facility] [address] [place] [address] Latrice Ibrahim MD [address] [place] [address] 01/27/2025 10:00 AM EST Telemedicine [facility] [address] [place] [address] Geeta Dove PharmD [address] [place] [address] 02/05/2025 9:30 AM EST Office Visit [facility] OPTOMETRY [address] [place] [address] Natalie Davis, OD [address] [place] [address] documented as of this encounter Visit Diagnoses Diagnosis Uncomplicated opioid dependence (CMS/HCC) (HCC) documented in this encounter Care Teams Etymology Professor Relationship Specialty Start Date End Date Name, MD Ananda [address] [place] [address] PCP - General Family Medicine 06/01/15 Geeta Dove PharmD [address] [place] [address] Pharmacist Internal Medicine 07/21/24 documented as of this encounter
--- OUTSIDE RECORDS SUMMARY | 2025-01-01 06:58 | XMS_ITS | Encounter Summary ---
Author Organization [employer] Address [address] [place] [address] 7t [place] [address] Care Team Providers Care E Commerce Merchant Name Role Phone Name, Ananda CRANDALL Primary Care Provider [phone] Geeta Dove PharmD Unavailable [phone] Encounter Details Date Type Department Care Team ([facility] Contact Info) Description 08/13/2022 Abstract [facility] MEDICINE [address] [place] [address] [phone] NameAnanda MD [address] [place] [address] Social History Tobacco Use Types Packs/Day Years [...] Upcoming Encounters Date Type Department Care Team ([facility] Contact Info) Description 01/18/2025 3:15 PM EST Office Visit [facility] MEDICINE [address] [place] [address] [phone] Ananda Spain MD [address] [place], [place] [address], [place] [address] 01/20/2025 9:15 AM EST Office Visit [facility] MED[facility]INE 230 [facility] [place] [address] Latrice Ibrahim MD 230 [facility] [address] 01/27/2025 10:00 AM EST Telemedicine [facility] 230 [facility] [place] [address] Geeta Dove PharmD 230 [facility] [place] [address] 02/05/2025 9:30 AM EST Office Visit [facility] OPTOMETRY [address] [place] [address] Natalie Davis, OD [address] [place] [address] documented as of this encounter Procedures Procedure Name Priority Date/Time Associated Diagnosis Comments COLONOSCOPY Routine 08/16/2015 1:52 PM EDT documented in this encounter Results * Colonoscopy (08/16/2015 1:52 PM EDT) [facility] Signature Colonoscopy Normal Normal Narrative Gloria Álvarez - 08/16/2015 1:52 PM EDT Recommended 10 year follow up Historical Provider HEALTH MAINTENANCE Final Result documented in this encounter Visit Diagnoses Not on filedocumented in this encounter Care Teams E Commerce Merchant Relationship Specialty Start Date End Date Name, [place] [address] PCP - General Family Medicine 06/01/15 Geeta Dove PharmD [facility] [place] [address] Pharmacist Internal Medicine 07/21/24 documented as of this encounter
--- OUTSIDE RECORDS SUMMARY | 2025-01-01 06:58 | XMS_ITS | Encounter Summary ---
Author Organization [employer] Address [address] [facility] 7t [place] [address] Care Team Providers Care Beverage Manager Name Role Phone Name, Ananda CRANDALL Primary Care Provider [phone] Geeta Dove PharmD Unavailable [phone] Reason for Visit * Reason Onset Date Comments Appointment 09/06/2022 Encounter Details Date Type Department Care Team ([facility] st Contact Info) Description 09/06/2022 Telephone [facility] [address] [place] [address] Kelvin Haque DDS [address] [place], [place] [phone] Appointment Social History Tobacco Use Types Packs/Day [...] Description 01/18/2025 3:15 PM EST Office Visit [facility] [address] [place] [address] Name, MD Ananda [address] [place] [address] 01/20/2025 9:15 AM EST Office Visit [address] [address] Latrice Ibrahim MD [address] [place] [address] 01/27/2025 10:00 AM EST Telemedicine [facility] [address] [place] [address] Geeta Dove PharmD [address] [place] [address] 02/05/2025 9:30 AM EST Office Visit [facility] [address] [place] [address] Natalie Davis, OD [address] [place] [address] documented as of this encounter Visit Diagnoses Not on filedocumented in this encounter Care Teams Beverage Manager Relationship Specialty Start Date End Date Name, MD Ananda [address] [place] [address] PCP - General Family Medicine 06/01/15 Geeta Dove, PharmD [address] [place] [address] Pharmacist Internal Medicine 07/21/24 documented as of this encounter
--- OUTSIDE RECORDS SUMMARY | 2025-01-01 06:58 | XMS_ITS | Encounter Summary ---
Author Organization [employer] Address [address] [place] [address] 7t [place] [address] Care Team Providers Care Sales Planning Analyst Name Role Phone Name, Ananda CRANDALL Primary Care Provider [phone] Geeta Dove PharmD Unavailable [phone] Encounter Details Date Type Department Care Team (Latest Contact Info) Description 01/09/2021 Abstract [facility] CONVERSIONS Dental, Provider, DDS [...] Description 01/18/2025 3:15 PM EST Office Visit [facility] MEDICINE [address] [place] [address] Name, MD Ananda [address] [place] [address] 01/20/2025 9:15 AM EST Office Visit [facility] MEDICINE [address] [place] [address] Latrice Ibrahim MD [address] [place] [address] 01/27/2025 10:00 AM EST Telemedicine [facility] MEDICINE [address] [place] [address] Geeta Dove PharmD [address] [place] [address] 02/05/2025 9:30 AM EST Office Visit [facility] OPTOMETRY [address] [place], [place] [phone] Griseldaclara Natalie, OD [address] [place] [address] documented as of this encounter Visit Diagnoses Not on filedocumented in this encounter Care Teams Sales Planning Analyst Relationship Specialty Start Date End Date Name, MD Ananda [address] [place], [place] [phone] PCP - General Family Medicine 06/01/15 Geeta Dove, Donte [address] [place] [address] Pharmacist Internal Medicine 07/21/24 documented as of this encounter
--- OUTSIDE RECORDS SUMMARY | 2025-01-01 06:58 | XMS_ITS | Encounter Summary ---
Author Organization [employer] Address [address] [place] [address] 7t [place] [address] Care Team Providers Care Aircraft Inspector Name Role Phone Name, Ananda CRANDALL Primary Care Provider [phone] Geeta Dove PharmD Unavailable [phone] Encounter Details Date Type Department Care Team ([facility] Contact Info) Description 02/14/2022 Abstract [facility] MEDICINE [address] [place] [address] [phone] Provider, MD Damari Social History Tobacco Use [...] Upcoming Encounters Date Type Department Care Team ([facility] Contact Info) Description 01/18/2025 3:15 PM EST Office Visit [facility] MEDICINE [address] [place] [address] [phone] Name, MD Ananda [address] [place] [address] 01/20/2025 9:15 AM EST Office Visit [facility] MEDICINE [address] [place] [address] Latrice Ibrahim MD [address] [place] [address] 01/27/2025 10:00 AM EST Telemedicine [facility] MEDICINE [address] [place] [address] Geeta Dove PharmD [address] [place] [address] 02/05/2025 9:30 AM EST Office Visit [facility] OPTOMETRY [address] [place], [place] [phone] Natalie Davis, OD [address] [place] [address] documented as of this encounter Visit Diagnoses Not on filedocumented in this encounter Care Teams Aircraft Inspector Relationship Specialty Start Date End Date Name, MD Ananda [address] [place] [address] PCP - General Family Medicine 06/01/15 Geeta Dove PharmD [address] [place] [address] Pharmacist Internal Medicine 07/21/24 documented as of this encounter
--- OUTSIDE RECORDS SUMMARY | 2025-01-01 06:58 | XMS_ITS | Encounter Summary ---
Author Organization [employer] Address [address] [facility] 7t [place] [address] Care Team Providers Care Program Management Professional Name Role Phone Name, Ananda CRANDALL Primary Care Provider [phone] Geeta Dove PharmD Unavailable [phone] Reason for Visit * Reason Comments Med Refill Encounter Details Date Type Department Care Team ([facility] st Contact Info) Description 08/23/2024 Refill [facility] [address] [place], [place] [phone] Name, MD Ananda [address] [place] [address] Chronic obstructive pulmonary disease, unspecified COPD type [...] 3:15 PM EST Office Visit [facility] [address] [place] [address] Ananda Spain MD [address] [place] [address] 01/20/2025 9:15 AM EST Office Visit [facility] [address] [place] [address] Latrice Ibrahim MD [address] [place] [address] 01/27/2025 10:00 AM EST Telemedicine [facility] [address] [place] [address] Geeta Dove, Donte [address] [place] [address] 02/05/2025 9:30 AM EST Office Visit [facility] OPTOMETRY [address] [place] [address] Natalie Davis OD [address] [place] [address] documented as of this encounter Goals Goal [...] as of this encounter Care Teams Program Management Professional Relationship Specialty Start Date End Date Name, MD Ananda [address] [place] [address] PCP - General Family Medicine 06/01/15 Geeta Dove PharmD [address] [place] [address] Pharmacist Internal Medicine 07/21/24 documented as of this encounter
--- OUTSIDE RECORDS SUMMARY | 2025-01-01 06:58 | XMS_ITS | Encounter Summary ---
Author Organization [employer] Address [address] [facility] 7t [place] [address] Care Team Providers Care Planning Intern Name Role Phone Ananda Spain MD Primary Care Provider [phone] Geeta Dove PharmD Unavailable [phone] Reason for Visit * Reason Onset Date Comments ER Follow-up 09/26/2022 Encounter Details Date Type Department Care Team ([facility] st Contact Info) Description 09/26/2022 Telephone [facility] MEDICINE 230 [place], [place] [phone] Name, MD Ananda [address] [place] [address] ER Follow-up Social History Tobacco Use Types [...] 10:24 AM EDT T/c to pt. Through [email or web address] Application id - [id number] for below message, pt. Has surgery at [facility] for non - pressure [...] in case of any new or worseningsymptoms. [facility] hours are reviewed. * Telephone Encounter - Hawa Morales - 10/01/2022 9:35 AM EDT Tc from pt returning call regarding message below. Please contact pt at [phone] (british virgin islander speaker) * Telephone Encounter - Em Leblanc RN - 09/27/2022 3:29 PM EDT T/C to pt. On [phone] through [email or web address] Application id - [id number] for status check and to schedule follow up apt. No answer. LVM to call back on [phone]. * Telephone Encounter - Netta Alvares - 09/26/2022 11:04 AM EDT Tc from pt calling to advise PCP of an ER visit to [facility] on 09/24/22 for surgery on the left leg. Pt advised will forward to team nurse for f/u. Please contact pt at [phone] (Korean) documented in this encounter Plan of Treatment Upcoming Encounters Date Type Department Care Team (Late st Contact Info) Description 01/18/2025 3:15 PM EST Office Visit [facility] [place] [address] Name, MD Ananda [address] [place] [address] 01/20/2025 9:15 AM EST Office Visit [facility] MEDICINE [address] [place] [address] [place] [address] Latrice Ibrahim MD 230 [facility] [place] [address] 01/27/2025 10:00 AM EST Telemedicine [facility] MEDICINE [address] [place] [address] [place] [address] Geeta Dove PharmD [address] [place], [place] [address]lester [place] [address] 02/05/2025 9:30 AM EST Office Visit [facility] OPTOMETRY [address] [place] [address] Natalie Davis, OD [address] [place] [address] documented as of this encounter Visit Diagnoses Not on filedocumented in this encounter Care Teams Planning Intern Relationship Specialty Start Date End Date Name, MD Ananda [facility] [place] [address] PCP - General Family Medicine 06/01/15 Geeta Dove PharmD [address] [place], [place] [address]lester [facility] [place] [address] Pharmacist Internal Medicine 07/21/24 documented as of this encounter
--- OUTSIDE RECORDS SUMMARY | 2025-01-01 06:58 | XMS_ITS | Encounter Summary ---
Author Organization [employer] Address [address] [facility] 7t [place] [address] Care Team Providers Care Scorer Single Name Role Phone Name, Ananda CRANDALL Primary Care Provider [phone] Geeta Dove PharmD Unavailable [phone] Reason for Visit * Reason Onset Date Comments Durable Medical Equipment 09/18/2022 Encounter Details Date Type Department Care Team ([facility] st Contact Info) Description 09/18/2022 Telephone [facility] MEDICINE 230 [place], [place] [phone] Name, MD Ananda [address] [place] [address] Durable Medical Equipment Social History Tobacco Use [...] 09/21/2022 1:49 PM EDT Incoming call from [facility] regarding message below. [facility] PT states they have no record of pt ever going to their offices and getting PT. Unsure what next steps should be at this point. * Telephone Encounter - Christy Finn RN - 09/21/2022 1:39 PM EDT TC X1 to [facility] PT [phone] regarding message below. LVM to return call to nurses. * Telephone Encounter - Lauren Walsh - 09/20/2022 3:14 PM EDT Tc from patient returning call back, regarding message below. Patient states he's going to PT in [facility]. [address] [place] [address] [place] [address] Dr. Mcdaniel. * Telephone Encounter - Christy [...] Description 01/18/2025 3:15 PM EST Office Visit [facility] MEDICINE [address] [place] [address] Name, MD Ananda [address] [place] [address] [place] [address] 01/20/2025 9:15 AM EST Office Visit [facility] MEDICINE [address] [place] [address] [place] [address] Latrice Ibrahim MD [address] [place] [address] 01/27/2025 10:00 AM EST Telemedicine [facility] MEDICINE [address] [place] [address] Geeta Dove PharmD [address] [place] [address] 02/05/2025 9:30 AM EST Office Visit [facility] OPTOMETRY [address] [place] [address] Natalie Davis, OD [address] [place] [address] documented as of this encounter Visit Diagnoses Not on filedocumented in this encounter Care Teams Scorer Single Relationship Specialty Start Date End Date Name, MD Ananda [address] [place] [address] [place] [address] PCP - General Family Medicine 06/01/15 Geeta Dove PharmD [address] [place] [address] Pharmacist Internal Medicine 07/21/24 documented as of this encounter
--- OUTSIDE RECORDS SUMMARY | 2025-01-01 06:58 | XMS_ITS | Clinical Summary ---
Author Organization [employer] Address [address] [place] [address] 7[address] [place] [address] Care Team Providers Care Fashion Intern Name Role Phone Name, Ananda CRANDALL Primary Care Provider [phone] Geeta Dove PharmD Unavailable [phone] Allergies No known active allergies Medications ramelteon (Rozerem) 8 MG tablet Take 1 tablet by mouth at bed time. Active Misc. Devices (Pulse Oximeter For Finger) miscIndications :COPD exacerbation (CMS/HCC) ([facility]) 1 each 2 times daily. Call [facility] if consistently < 95% 1 each 023 Active clonazePAM (KlonoPIN) 1 MG tablet Take 1 mg by mouth 2 times daily. 023 Active Lancets (OneTouch Delica Plus [id number]) misc TEST BLOOD SUGAR THREE TIMES DAILY [...] without complication, unspecified whether fpc insulin use USE DIRECTED FOUR TIMES DAILY [...] appointment on 10/21/2024 at 10 am at [facility] pulmonology [place], [address] [place] [address], I advise not to miss this appointment [...] and left lower lobe calcified large granuloma. [place] [address] [address] Scan Report Signed Patient: Hubert Rios MR#: [id number] : 1965 Acct:[id number] Age/Sex: 59 / M ADM Date: 07/02/24 Loc: HO.CT Attending Dr: Chanel Thomas NP Ordering Physician: Chanel Thomas NP Date of Service: 07/02/24 Procedure(s): CT chest wo IV con Accession Number(s): [id number] cc: Grabiel,Ananda CRANDALL; Chanel Thomas NP Report Number: [id number]: Total DLP = 110.00 mGy-cm EXAMINATION: CT [...] Team Description 12/29/2024 9:00 AM EDT Telemedicine [facility] MEDICINE [address] [place] [phone] Geeta Dove, Donte Tobacco dependence (Primary Dx) 12/18/2024 Refill [facility] MEDICINE [address] [place], [place] [phone] Name, MD Ananda Constipation, unspecified constipation type 12/17/2024 10:20 AM EDT Office Visit [facility] WALK-IN [address] [address] Luis Espinoza MD COPD exacerbation (CMS/HCC) (HCC) (Primary Dx) 12/17/2024 Travel 12/11/2024 [facility] [address] [address] Ananda Spain MD Cough in adult patient 12/02/2024 Orders Only GENERIC EXTERNAL DATA DEPARTMENT Provider, Generic External Data 11/27/2024 9:00 AM EDT Telemedicine [address] [address] Geeta Dove PharmD Tobacco dependence (Primary Dx) 11/25/2024 9:15 AM EDT Office Visit [address] [address] Latrice Ibrahim MD Uncomplicated opioid dependence (CMS/HCC) (Primary Dx) 11/25/2024 Travel 11/24/2024 Abstract [facility] MEDICINE [address] [place] [address] Ananda Spain MD 11/23/2024 Orders Only GENERIC EXTERNAL DATA DEPARTMENT Provider, Generic External Data 11/18/2024 Refill [facility] MEDICINE [address] [place] [address] Sonali Stubbs RN Uncomplicated opioid dependence (CMS/HCC) 11/06/[address] [address] Ananda Spain MD CHARTPREP 11/05/2024 Orders Only [facility] External Provider, [facility] 10/28/2024 9:00 AM EDT Office Visit [facility] MEDICINE [address] [place] [address] Latrice Ibrahim MD Uncomplicated opioid dependence (CMS/HCC) (Primary Dx) 10/28/2024 Travel 10/27/2024 Telephone [facility] MEDICINE [address] [place] [address] Latrice Ibrahim MD CHART PREP 10/21/2024 Refill [facility] MEDICINE [address] [place] [phone] Sonali Stubbs RN Uncomplicated opioid dependence (CMS/HCC) 10/16/2024 11:00 AM EDT Office Visit [facility] [address] [address] So Lebron MD COPD exacerbation ([facility]) (Primary Dx); Cough in adult patient 10/16/2024 Travel 10/13/2024 Orders Only GENERIC EXTERNAL DATA DEPARTMENT Provider, Generic External Data 10/09/2024 Orders Only GENERIC EXTERNAL DATA DEPARTMENT Provider, Generic External Data from Last 3 Months Immunizations Immunization Administration Dates Next Due Hep A, Adult 05/11/2009 Influenza injectable quadriv alent preservative free 01/21/2023,01/02/2022,02/10/2021,03/07,01/13/2019,01/11/2018 Influenza, Split (incl. aba fied surface antigen) 12/24/2012,11/06/2011 Influenza, seasonal, injecta ble, preservative free 03/30/2024,11/20/2023 [place] SARS-CoV-2 Vaccination 05/18/2020 Pfizer Covid-19 Vaccine 12+ [...] Description 01/18/2025 3:15 PM EST Office Visit [facility] MEDICINE [address] [place] [address] Name, MD Ananda [address] [place] [address] 01/20/2025 9:15 AM EST Office Visit [facility] MEDICINE [address] [place] [address] Latrice Ibrahim MD [address] [place] [address] 01/27/2025 10:00 AM EST Telemedicine [facility] MEDICINE [address] [place] [address] Geeta Dove, PharmD [address] [place] [address] 02/05/2025 9:30 AM EST Office Visit [facility] OPTOMETRY [address] [place] [address] Ryan Natalie, OD [address] [place] [address] Health Maintenance Due Date Last Done Comments [...] Screening 12/17/2025 12/17/2024 Eye Exam 08/06/2026 08/06/2024, 0607/2024, 08/06/2024, Additional [...] track( 025 10:52 AM EDT) No Sonali Stubbs RN Note: 1-2 cigs per day Procedures Procedure Name Priority Date/Time Associated Diagnosis Comments IMMUNOGLOBULIN E Routine 12/02/2024 8:10 AM EDT GLUCOSE, WHOLE BLOOD Routine 11/23/2024 9:21 AM EDT US RENAL COMPLETE Routine 11/05/2024 12: 39 PM EDT POCT FARA-14 URINE DRUG SCREEN Routine 10/28/2024 9:10 AM EDT Uncomplicated opioid dependence ([facility]) POCT RAPID COVID ANTIGEN [...] AUTO DIFFERENTIAL Routine 10/09/2024 8:23 AM EDT ALBUMIN, RANDOM URINE W/CREATININE Routine 05/29/2024 [...] time period is included. Immunoglobulin E 373(A) <YP=604 kU/L [facility] Comment:THIS TEST WAS PERFOR MED AT:[facility] [place] [phone] GARCIA MD 12/02/2024 8:10 AM EDT 12/02/2024 8:10 AM EDT us Generic External Data Provider LAB BLOOD ORDERAB LES Final Result [facility] [address] [place] [phone] * Glucose, Whole Blood (11/23/2024 9:21 AM EDT) Only the most recent of2 resultswithin the time period is included. Glucose, Whole Blood 91 60 - 115 mg/dL [facility] Comment:METER #: [id number] Testing performed in the Endocrinology Department [address] , [address], [facility]. 11/23/2024 9:21 AM EDT 11/23/2024 9:24 AM EDT us Generic External Data Provider LAB BLOOD ORDERAB LES Final Result [facility] [address] [place] [phone] * US Renal Complete (11/05/2024 12:39 PM EDT) Anatomical Region Laterality Modality Kidney Ultrasound 11/05/2024 12:3 9 PM EDT Narrative 11/05/2024 3:49 PM EDT [address] [address] Ultrasound Report Signed Patient: Hubert Rios MR#: [id number] : 1965 Acct:[id number] Age/Sex: 59 / M ADM Date: 11/05/24 Loc: HO.US Attending Dr: Hipolito Mcdaniel MD Ordering Physician: Hipolito Mcdaniel MD Date of Service: 11/05/24 Procedure(s): US renal BI Accession Number(s): [id number] cc: Hipolito Mcdaniel MD; Name,Ananda CRANDALL Reason [...] 11/05/24 1546 DD/ 1239 TD/TT: 11/05/24 1250 Hog Killer: [facility] Procedure Note Donotuseinterpreter, Image - 11/05/2024 [place] [address] Ultrasound Report Signed Patient: Hubert Rios MMR#: [id number] : 1965Acct:[id number] Age/Sex: 59 / MADM Date: 11/05/24 Loc: HO.US Attending Dr: Hipolito Mcdaniel MD Ordering Physician: Hipolito Mcdaniel MD Date of Service: 11/05/24 Procedure(s): US renal BI Accession Number(s): [id number] cc: Hipolito Mcdaniel MD; Name,Ananda CRANDALL Reason [...] 11/05/24 1546 DD/ 1239 TD/TT: 11/05/24 1250 Hog Killer: [facility] External Provider IMG US PROCEDURES Final Result * (ABNORMAL) POCT FARA-14 Urine Drug Screen (10/28/2024 9:10 AM EDT) Pathologist [facility] THC Negative Negative Cocaine Screen, Urine Negative [...] NOW Rapid Molecular) (10/16/2024 10:18 AM EDT) [facility] Influenza B Negative Negative, Indeterminate [facility] Swab 10/16/2024 10:1 8 AM EDT So Osman MD POINT OF CARE TEST EN TER/EDIT ORDERABLES Final Result [facility] [address] [place] [address] [phone] * Influenza A (ID NOW Rapid Molecular) (10/16/2024 10:18 AM EDT) [facility] Influenza A Negative Negative, Indeterminate [facility] Swab 10/16/2024 10:1 8 AM EDT So Osman MD POINT OF CARE TEST EN TER/EDIT ORDERABLES Final Result [facility] [address] [place] [address] [phone] * POCT Rapid COVID Ag (10/16/2024 10:18 AM EDT) Pathologist [facility] Rapid COVID Ag Negative Swab 10/16/2024 10:1 8 AM EDT So Osman MD POINT OF CARE TEST EN TER/EDIT ORDERABLES Final Result * (ABNORMAL) Hemoglobin A1c (10/13/2024) [facility] Hemoglobin A1C 8.0(A) 4.0 - 5.7 % Blood Venous blood specimen / Unknown [facility] Provider LAB BLOOD ORDERABLES Anna l Result * (ABNORMAL) Respiratory Allergy Profile Region I (10/09/2024 8:23 AM EDT) [facility] Mouse Urine Proteins (E72) IgE <0.10 kU/L [facility] Class 0 [facility] Cockroach (I6) IgE 0.17(A) kU/L [facility] Class 0/1 [facility] Dermatophagoides farinae (D2) IgE 0.99(A) kU/L [facility] Class 2 [facility] Cat Dander (E1) IgE <0.10 kU/L [facility] Class 0 [facility] Comment:THIS TEST WAS PERFOR MED AT:[facility] [address] [phone] GARCIA MD Dog Dander (E5) IgE <0.10 kU/L [facility] Class 0 [facility] Comment:THIS TEST WAS PERFOR MED AT:[facility] [address] [phone] GARCIA MD Fredo Grass (G6) IgE <0.10 kU/L [facility] Class 0 [facility] Cladosporium herbarum (M2) IgE <0.10 kU/L [facility] Class 0 [facility] Aspergillus Fumigatis (M3) IgE <0.10 kU/L [facility] Class 0 [facility] Alternaria alternata (M6) IgE <0.10 kU/L [facility] Class 0 [facility] Comment:THIS TEST WAS PERFOR MED AT:[facility] [address] [phone] GARCIA MD [place] (t6) IgE <0.10 kU/L [facility] Class 0 [facility] Taberg (T7) IgE <0.10 kU/L [facility] Class 0 [facility] [place] Tree (T10) IgE <0.10 kU/L [facility] Class 0 [facility] Shelby (T11) IgE <0.10 kU/L [facility] Class 0 [facility] Dane (T14) IgE <0.10 kU/L [facility] Class 0 [facility] [place] (t15) IgE <0.10 kU/L [facility] Class 0 [facility] [place] (T70) IgE <0.10 kU/L [facility] Class 0 [facility] Common Ragweed (Short) (W1) IgE 0.12(A) kU/L [facility] Class 0/1 [facility] Mugwort (w6) IgE <0.10 kU/L [facility] Class 0 [facility] Dermatophagoides pteronyssinus (D1) IgE 0.98(A) kU/L [facility] Class 2 [facility] Bermuda Grass (g2) IgE <0.10 kU/L [facility] Class 0 [facility] Penicillium Notatum (M1) IgE <0.10 kU/L [facility] Class 0 [facility] Birch (T3) IgE <0.10 kU/L [facility] Class 0 [facility] Elm (t8) IgE <0.10 kU/L [facility] Class 0 [facility] Maple ([place]) (T1) IgE <0.10 kU/L [facility] Class 0 [facility] Rough Pigweed (W14) IgE <0.10 kU/L [facility] Class 0 [facility] Sheep [place] (W18) IgE <0.10 kU/L [facility] Class 0 [facility] Allergen Comment See Below [facility] Comment: Specific Level of AllergenIGE [...] and its analyticalperformance characteristics have been determined by[employer]. It has not been cleared or approvedby the U.S. Food and Drug Administration. This assayhas been validated pursuant to the CLIA regulationsand is used for clinical purposes.THIS TEST WAS PERFORMED AT:[facility] [place] [phone] GARCIA MD 10/09/2024 8:23 AM EDT 10/09/2024 8:26 AM EDT us Generic External Data Provider LAB BLOOD ORDERAB LES Final Result [facility] [address] [place] [phone] * (ABNORMAL) CBC auto differential (10/09/2024 8:23 AM EDT) White Blood Count 5.9 4.8 - 10.8 X10*3/uL [facility] Red Blood Count 4.56(L) 4.60 - 5.80 X10*6/uL [facility] Hemoglobin 13.5(L) 14.0 - 18.0 g/dl [facility] Hematocrit 40.9(L) 42.0 - 52.0 % [facility] Mean Corpuscular Volume 89.7 80.0 - 98.0 fL [facility] Mean Corpuscular Hemoglobin 29.6 27.0 - 33.0 pg [facility] Mean Corpuscular HGB Conc 33.0 31.0 - 36.0 g/dl [facility] Red Cell Distribution Width 13.3 11.0 - 16.0 % [facility] Platelet Count 237 160 - 400 X10*3/uL [facility] Mean Platelet Volume 10.6 9.4 - 12.4 fL [facility] Neutrophils Percent Auto 43.2(L) 45 - 73 % [facility] Imm Gran Pct Auto 0.3 0.0 - 0.4 % [facility] Lymphocytes Percent Auto 32.8 20 - 40 % [facility] Monocytes Percent Auto 12.5(H) 2 - 11 % [facility] Eosinophils Percent Auto 10.0(H) 0 - 4 % [facility] Basophils Percent Auto 1.2 0 - 2 % [facility] NRBC Pct Auto 0.0 0.0 - 0.2 /100WBC [facility] Neutrophils Absolute Auto 2.6 2.0 - 8.3 x10*3/uL [facility] Imm Gran Abs Auto 0.02 0.00 - 0.03 X10*3/uL [facility] Lymphocytes Absolute Auto 1.9 1.2 - 4.9 X10*3/uL [facility] Monocytes Absolute Auto 0.7 0.1 - 1.2 X10*3/uL [facility] Eosinophils Absolute Auto 0.6(H) 0.0 - 0.4 X10*3/uL [facility] Basophils Absolute Auto 0.1 0.0 - 0.2 X10*3/uL [facility] NRBC Abs Auto 0.000 0.0 - 0.012 X10*3/uL [facility] 10/09/2024 8:23 AM EDT 10/09/2024 8:26 AM EDT Generic External Data Provider LAB BLOOD ORDERAB LES Final Result Performing Organization Address [facility]/ZIP Co de Phone Number [facility] [address] [place] [phone] * Albumin, Random Urine W/Creatinine (05/29/2024 8:43 AM EDT) Creatinine, Urine 126.68 mg/dL [facility] Microalbumin Urine 15.0 mg/L [facility] Microalbum Creatinine Ratio Ur 11.8 <30 ug/mg cr [facility] Comment:Albumin/Creatinine R atio Reference Ranges: Normal: < 30 ug/mg creatinine Microalbuminuria: 30 - 300 ug/mg creatinineClinical Albuminuria: > 300 ug/mg creatinine 05/29/2024 8:43 AM EDT 05/29/2024 9:05 AM EDT Generic External Data Provider LAB URINE ORDERAB LES Final Result Performing Organization Address City/[facility]/ZIP Co de Phone Number [facility] [address] [place] [address] [phone] * (ABNORMAL) Lipid Panel, Standard (05/27/2024 8:40 AM EDT) Triglycerides 73 <150 mg/dL [facility] Comment:Desirable Triglyceri de: less than 150 mg/dLBorderline High Triglyceride 150-199 mg/dLHigh Triglyceride: 200-499 mg/dLVery High Triglyceride: greater than or equal to 5OO mg/dL Cholesterol 221(H) <200 mg/dL [facility] Comment:Desirable Cholestero l: less than 200 mg/dLBorderline High Cholesterol: 200-239 mg/dLHigh Cholesterol: greater than 239 mg/dL LDL Cholesterol Calculated 75 <100 mg/dL [facility] Comment:Desirable LDL: less than 100 mg/dLNear Optimal/Above Optimal LDL: 110- 129 mg/dLBorderline High LDL: 130-159 mg/dLHigh LDL: 160-189 mg/dLVery High LDL: greater than or equal to 190 mg/dL HDL Cholesterol 132 >40 mg/dL [facility] Comment:Desirable HDL: great er than 40 mg/dL Note: This HDL assay may give artificially low results in patients with liver disease. Blood Venous blood specimen / Unknown 05/27/2024 8:40 AM EDT 05/27/2024 8:40 AM EDT Ananda Spain MD LAB BLOOD ORDERABLES Final Resul t Performing Organization Address City/[facility]/ZIP Co de Phone Number [facility] [address] [place] [phone] * (ABNORMAL) Hepatitis C Antibody with Reflex to HCV, RNA, Quantitative, Real- Time PCR (03/29/2023 9:12 AM EST) Hepatitis C Antibody Reactive( A) Nonreactive [facility] Comment:Presumptive evidence of antibodies to HCV. 03/29/2023 9:12 AM EST 03/29/2023 11:11 AM EST Latrice Ibrahim MD LAB BLOOD ORDERABLES Final Resul t Performing Organization Address [facility]/ZIP Co de Phone Number [facility] [address] [place] [phone] * HIV-1/2 Antigen and Antibodies, Fourth Generation, with Reflexes (03/29/2023 9:12 AM EST) HIV AB/AG Nonreactive Nonreactive [facility] Comment:HIV-1 p24 Ag and/or HIV-1/HIV-2 Ab not detected.A test result that is nonreactive does not exclude thepossibility of exposure to or infection with HIV-1 and/orHIV-2. Nonreactive results in this assay for individualswith prior exposure to HIV-1 and/or HIV-2 may be due toantigen and antibody levels that are below the limit ofdetection of this assay.The [employer] HIV Ag/Ab Combo assay result andsupplemental assay results should be interpreted inconjunction with the patient's clinical presentation,history and other laboratory results. If the results areinconsistent with clinical evidence, additional testing issuggested to confirm the result. 03/29/2023 9:12 AM EST 03/29/2023 11:11 AM EST us Latrice Ibrahim MD LAB BLOOD ORDERABLES Final Resul t [facility] [address] [place] [address] [phone] * Hm Colonoscopy (08/16/2015 1:52 PM EDT) Colonoscopy Normal Normal Narrative Gloria Álvarez - 08/16/2015 1:52 PM EDT Recommended 10 year follow up us Historical Provider HEALTH MAINTENANCE Final Result from Last 3 Months or Most Recently Relevant to Health Maintenance Insurance [address] [place], [place] [address] ONE CARE < 65 Care Teams Fashion Intern Relationship Specialty Start Date End Date Name, MD Ananda [address] [place] [address] PCP - General Family Medicine 06/01/15 Geeta Dove PharmD [address] [place] [address] Pharmacist Internal Medicine 07/21/24
--- OUTSIDE RECORDS SUMMARY | 2025-01-01 06:58 | XMS_ITS | Encounter Summary ---
Author Organization [employer] Address [address] [facility] [address] [place] [address] Care Team Providers Care Biological Sciences Professor Name Role Phone Name, Ananda CRANDALL Primary Care Provider [phone] Geeta Dove PharmD Unavailable [phone] Reason for Visit * Reason Onset Date Comments Durable Medical Equipment 06/08/2022 Encounter Details Date Type Department Care Team ([facility] st Contact Info) Description 06/08/2022 Telephone [facility] MEDICINE [address] [place], [place] [phone] Name, MD Ananda [address] [place] [address] Durable Medical Equipment Social History Tobacco Use [...] states unable to get a hold of change control coordinator and would like to know if PCP can send script directly to [facility] . Please contact at [phone] * Telephone Encounter - Arleen Ramirez - 06/11/2022 11:28 AM EDT TC to patient and informed him to contact his career information specialist as a script for a recliner was emailed to her previously. Patient understood and agreed with plan. * Telephone Encounter - Darian Joiner - 06/08/2022 4:29 PM EDT Tc from pt requesting a script for a recliner chair to be send to [facility] please contact pt at [phone] documented in this encounter Plan of Treatment Upcoming Encounters Date Type Department Care Team (Late st Contact Info) Description 01/18/2025 3:15 PM EST Office Visit [facility] MEDICINE [address] [place] [phone] Ananda Spain MD [address] [place] [address] 01/20/2025 9:15 AM EST Office Visit [facility] MEDICINE [address] [place] [phone] Latrice Ibrahim MD [address] [place] [phone] 01/27/2025 10:00 AM EST Telemedicine [facility] MEDICINE [address] [place] [phone] Geeta Dove, Donte [address] [place] [address] 02/05/2025 9:30 AM EST Office Visit [facility] OPTOMETRY [address] [place] [phone] Natalie Davis, OD [address] [place] [address] documented as of this encounter Visit Diagnoses Not on filedocumented in this encounter Care Teams Biological Sciences Professor Relationship Specialty Start Date End Date Name, MD Ananda [address] [place] [address] PCP - General Family Medicine 06/01/15 Geeta Dove, Donte [address] [place] [address] Pharmacist Internal Medicine 07/21/24 documented as of this encounter
--- OUTSIDE RECORDS SUMMARY | 2025-01-01 06:59 | XMS_ITS | Encounter Summary ---
Author Organization [facility] Address [address] [facility] 7t [place] [address] Care Team Providers Care Staff Respiratory Therapist Name Role Phone Name, Ananda RCANDALL Primary Care Provider [phone] Geeta Dove PharmD Unavailable [phone] Reason for Visit * Reason Comments Med Refill Encounter Details Date Type Department Care Team ([facility] st Contact Info) Description 03/08/2024 Refill [facility] MEDICINE [address] [place], [place] [phone] Name, MD Ananda [address] [place] [address] Chronic obstructive pulmonary disease, unspecified COPD type [...] Description 01/18/2025 3:15 PM EST Office Visit [facility] MEDICINE [address] [place] [address] Name, MD Ananda [address] [place] [address] 01/20/2025 9:15 AM EST Office Visit [address] [address] Latrice Ibrahim MD [address] [place] [address] 01/27/2025 10:00 AM EST Telemedicine [facility] MEDICINE [address] [place] [address] Geeta Dove, PharmD [address] [place] [address] 02/05/2025 9:30 AM EST Office Visit [facility] OPTOMETRY [address] [place] [address] Natalie Davis, OD [address] [place] [address] documented as of this encounter Visit Diagnoses Diagnosis Chronic obstructive pulmonary disease, unspecified COPD type (CMS/HCC) (HCC) documented in this encounter Additional Health Concerns Assessment Noted Time PHQ-9 Depression Total Score: 10 024 9:15 AM EDT documented as of this encounter Care Teams Staff Respiratory Therapist Relationship Specialty Start Date End Date Name, MD Ananda [address] [place] [address] PCP - General Family Medicine 06/01/15 Geeta Dove PharmD [address] [place] [address] Pharmacist Internal Medicine 07/21/24 documented as of this encounter
--- OUTSIDE RECORDS SUMMARY | 2025-01-01 06:59 | XMS_ITS | Encounter Summary ---
Author Organization [employer] Address [address] [facility] 7t [place] [address] Care Team Providers Care Hr Business Partner Name Role Phone Name, Ananda CRANDALL Primary Care Provider [phone] Geeta Dove PharmD Unavailable [phone] Encounter Details Date Type Department Care Team ([facility] Contact Info) Description 03/28/[address] [facility] CHC MED & PEDS [address] [place], [place] [phone] Teresa Moody LPN Social History Tobacco Use [...] Upcoming Encounters Date Type Department Care Team ([facility] Contact Info) Description 01/18/2025 3:15 PM EST Office Visit [facility] MEDICINE [address] [place], [place] [phone] Name, MD Ananda [address] [place] [address] 01/20/2025 9:15 AM EST Office Visit [facility] MEDICINE [address] [place] [address] Latrice Ibrahim MD [address] [place] [address] 01/27/2025 10:[address] [facility] MEDICINE [address] [place] [address] Geeta Dove PharmD [address] [place] [address] 02/05/2025 9:30 AM EST Office Visit [facility] OPTOMETRY [address] [place], [place] [phone] Natalie Davis, OD [address] [place] [address] documented as of this encounter Visit Diagnoses Not on filedocumented in this encounter Care Teams Hr Business Partner Relationship Specialty Start Date End Date Name, MD Ananda [address] [place] [address] PCP - General Family Medicine 06/01/15 Geeta Dove PharmD [address] [place] [address] Pharmacist Internal Medicine 07/21/24 documented as of this encounter
--- OUTSIDE RECORDS SUMMARY | 2025-01-01 06:59 | XMS_ITS | Encounter Summary ---
Author Organization [employer] Address [address] [facility] 7t [place] [address] Care Team Providers Care Weather Anchor Name Role Phone Name, Ananda CRANDALL Primary Care Provider [phone] Geeta Dove PharmD Unavailable [phone] Reason for Visit * Reason Comments Med Refill Encounter Details Date Type Department Care Team ([facility] st Contact Info) Description 02/28/2023 Refill [facility] [address] [place], [place] [phone] Name, MD Ananda 230 [place] [address] Pain of left leg Social History Tobacco [...] Description 01/18/2025 3:15 PM EST Office Visit [facility] MED[facility] [address] [place] [address] Ananda Spain MD [address] [place] [address] 01/20/2025 9:15 AM EST Office Visit [facility] MED[facility]INE [address] [place] [address] Latrice Ibrahim MD [address] [place] [address] 01/27/2025 10:00 AM EST Telemedicine [facility] MEDICINE [address] [place] [address] Geeta Dove, PharmD 230 [place] [address] 02/05/2025 9:30 AM EST Office Visit [facility] OPTOMETRY [address] [place] [address] Natalie Davis OD [address] [place] [address] documented as of this encounter Visit Diagnoses Diagnosis Pain of left leg documented in this encounter Additional Health Concerns Assessment Noted Time PHQ-9 Depression Total Score: 3 10/04/19 23 2:21 PM EDT documented as of this encounter Care Teams Weather Anchor Relationship Specialty Start Date End Date Name, MD Ananda [address] [place], [place] [phone] PCP - General Family Medicine 06/01/15 Geeta Dove, Donte [address] [place] [address] Pharmacist Internal Medicine 07/21/24 documented as of this encounter
--- OUTSIDE RECORDS SUMMARY | 2025-01-01 06:59 | XMS_ITS | Encounter Summary ---
Author Organization [employer] Address [address] [place] [address] 7t [place] [address] Care Team Providers Care Hoe Worker Name Role Phone Name, Ananda CRANDALL Primary Care Provider [phone] Geeta Dove PharmD Unavailable Reason for Visit * Reason Comments Med Refill Encounter Details Date Type Department Care Team (Late st Contact Info) Description 12/07/2022 Refill [facility] MEDICINE [address] [place] [address] Name, MD Ananda [address] [place] [address] Type 2 diabetes mellitus without complication, unspecified whether intermodal customer service insulin use ([facility]); Type 2 diabetes mellitus without complication, with long-term current use of insulin ([facility]) Social History Tobacco [...] Description 01/18/2025 3:15 PM EST Office Visit [facility] MEDICINE [address] [place] [address] Name, MD Ananda 230 [place] [address] 01/20/2025 9:15 AM EST Office Visit [facility] MEDICINE [address] [place] [address] Latrice Ibrahim MD 230 [place] [address] 01/27/2025 10:00 AM EST Telemedicine [facility] MEDICINE [address] [place] [address] Geeta Dove PharmD [address] [place] [address] 02/05/2025 9:30 AM EST Office Visit [facility] OPTOMETRY [address] [place] [address] Natalie Davis, OD [address] [place] [address] documented as of this encounter Visit Diagnoses Diagnosis Type 2 diabetes mellitus without complication, unspecified whether long-term insulin use Type 2 diabetes mellitus without complication, with long-term current use of insulin (HCC) documented in this encounter Additional Health Concerns Assessment Noted Time PHQ-9 Depression Total Score: 3 10/04/19 23 2:21 PM EDT documented as of this encounter Care Teams Hoe Worker Relationship Specialty Start Date End Date Name, MD Ananda [address] [place] [address] PCP - General Family Medicine 06/01/15 Geeta Dove PharmD [address] [place] [address] Pharmacist Internal Medicine 07/21/24 documented as of this encounter
--- OUTSIDE RECORDS SUMMARY | 2025-01-01 06:59 | XMS_ITS | Encounter Summary ---
Author Organization [employer] Address [address] [facility] 7t [place] [address] Care Team Providers Care Physical Laboratory Assistant Name Role Phone Name, Ananda CRANDALL Primary Care Provider [phone] Geeta Dove PharmD Unavailable [phone] Encounter Details Date Type Department Care Team ([facility] Contact Info) Description 03/28/2023 Abstract [facility] MEDICINE [address] [place], [place] [phone] Name, MD Ananda 230 [place] [address] Social History Tobacco Use Types Packs/Day Years [...] Description 01/18/2025 3:15 PM EST Office Visit [facility] MEDICINE [address] [place] [address] Ananda Spain MD [address] [place] [address] 01/20/2025 9:15 AM EST Office Visit [facility] MEDICINE [address] [place] [address] Latrice Ibrahim MD [address] [place] [address] 01/27/2025 10:00 AM EST Telemedicine [facility] MEDICINE [address] [place] [address] JamilahiaGeeta, PharmD 230 [place] [address] 02/05/2025 9:30 AM EST Office Visit [facility] OPTOMETRY [address] [place] [address] TarkaNatalie, OD [address] [place] [address] documented as of this encounter Visit Diagnoses Not on filedocumented in this encounter Additional Health Concerns Assessment Noted Time PHQ-9 Depression Total Score: 3 10/04/19 23 2:21 PM EDT documented as of this encounter Care Teams Physical Laboratory Assistant Relationship Specialty Start Date End Date Ananda Spain MD [address] [place] [address] PCP - General Family Medicine 06/01/15 Geeta Dove PharmD [address] [place] [address] Pharmacist Internal Medicine 07/21/24 documented as of this encounter
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
[2025-02-02 13:36] VITALS: BMI 19.6
[2025-02-04 09:47] VITALS: BMI 19.0
[2025-02-04 09:48] VITALS: BP 105/65; PULSE 100; RESP 16; TEMP 36.6; O2SAT 94
--- NOTE | 2025-02-04 10:24 | PC.NURSE ---
TONE CABINET ASSEMBLER AND MD MORALES BY BEDSIDE SPEAKING TO PATIENT REGARDING HIS PLAN OF CARE. EVERYTHING EXPLAINED THE NEED OF THE ORAL PREP.
== END ==
LOC: HO.SSS 08:55
PROVIDERS: PCP Internal Medicine Geriatric Medicine; Visit Provider Internal Medicine
DX: Z12.11 Encounter for screening for malignant neoplasm of colon (principal); Z53.8 Procedure and treatment not carried out for other reasons

== ENCOUNTER 2025-02-15 08:39 | Outpatient (AMB) | payer OTHER, SELFPAY ==
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
[2025-02-15 09:23] VITALS: BMI 18.9
== END 2025-02-15 09:30 | disposition home or self-care (01) ==
LOC: HO.ENCR 08:39
PROVIDERS: PCP Internal Medicine Geriatric Medicine; Visit Provider Dietitian, Registered
DX: E13.9 Other specified diabetes mellitus without complications (principal)

== ENCOUNTER → 2025-02-15 08:39 | Outpatient (BNVA) | payer OTHER, SELFPAY | PROVIDERS: PCP Internal Medicine Geriatric Medicine; Visit Provider Dietitian, Registered | DX: E13.9 Other specified diabetes mellitus without complications (principal); Z71.3 Dietary counseling and surveillance | CPT/HCPCS: 97803 ==

== ENCOUNTER → 2025-02-17 09:40 | Outpatient (REF) | payer OTHER, SELFPAY ==
--- OUTSIDE RECORDS SUMMARY | 2025-02-17 11:16 | XMS_ITS | Encounter Summary ---
Author Organization [employer] Address [address] [facility] [address] 7[address] [place] [address] Care Team Providers Care Plastics Worker Name Role Phone Name, Ananda CRANDALL Primary Care Provider [phone] Geeta Dove PharmD Unavailable [phone] Reason for Visit * Reason Onset Date Comments case in lab 10/03/2022 Encounter Details Date Type Department Care Team ([facility] st Contact Info) Description 10/03/2022 Telephone [facility] ADULT DENTAL [address] [place] [address] Kelvin Haque, LENNY [address] [place] [address] case in lab Social History Tobacco Use [...] - 10/03/2022 2:29 PM EDT Hubert from [employer] called in noel that the soonest they can get case back in to office would be 10/10. They stated it is 5 business days and does not include drop off or pickling drum operator date. Confirmed with Hubert that as of yet appt has not been scheduled to return and that I would inform officeDR documented in this encounter Plan of Treatment Upcoming Encounters Date Type Department Care Team (Late st Contact Info) Description 03/17/2025 9:00 AM EST Clinical Support [facility] [address] [place] [address] Sonali Stubbs, COREY [address] [place] [phone] 04/05/2025 2:30 PM EST Office Visit [facility] [address] [place] [phone] Name, MD Ananda [address] [place] [address] 08/06/2025 9:00 AM EDT Office Visit [facility] OPTOMETRY [address] [place] [address] Natalie Davis, OD [address] [place] [address] documented as of this encounter Visit Diagnoses Not on filedocumented in this encounter Additional Health Concerns Assessment Noted Time PHQ-9 Depression Total Score: 3 10/04/19 23 2:21 PM EDT documented as of this encounter Care Teams Plastics Worker Relationship Specialty Start Date End Date Name, MD Ananda [address] [place] [address] PCP - General Family Medicine 06/01/15 Geeta Dove, Donte [address] [place] [phone] Pharmacist Internal Medicine 07/21/24 01/26/25 documented as of this encounter
--- OUTSIDE RECORDS SUMMARY | 2025-02-17 11:16 | XMS_ITS | Encounter Summary ---
Author Organization [employer] Address [address] [place] [address] 7t [place] [address] Care Team Providers Care Injection Molding Machine Setter Name Role Phone Name, Ananda CRANDALL Primary Care Provider [phone] Geeta Dove PharmD Unavailable [phone] Encounter Details Date Type Department Care [...] Care Team ( st Contact Info) Description 03/17/2025 9:00 AM EST Clinical Support [facility] MEDICINE [address] [place] [address] Sonali Stubbs, COREY [address] [place] [address] 04/05/2025 2:30 PM EST Office Visit [facility] MEDICINE [address] [place] [address] Ananda Spain MD [address] [place] [address] 08/06/2025 9:00 AM EDT Office Visit [facility] OPTOMETRY [address] [place] [address] Natalie Davis, OD [address] [place] [address] documented as of this encounter Visit Diagnoses Not on filedocumented in this encounter Care Teams Injection Molding Machine Setter Relationship Specialty Start Date End Date Name, MD Ananda [address] [place] [address] PCP - General Family Medicine 06/01/15 Geeta Dove PharmD [address] [place] [address] Pharmacist Internal Medicine 07/21/24 01/26/25 documented as of this encounter
--- OUTSIDE RECORDS SUMMARY | 2025-02-17 11:16 | XMS_ITS | Encounter Summary ---
Author Organization [employer] Address [address] [facility] 7t [place] [address] Care Team Providers Care Lead Burner Supervisor Name Role Phone Name, Ananda CRANDALL Primary Care Provider [phone] Reason for Visit * Reason Comments Med Refill Encounter Details Date Type Department Care Team ([facility] Contact Info) Description 02/13/2025 Refill [facility] MEDICINE [address] [place], [place] [phone] Name, MD Ananda [address] [place] [address] Social History Tobacco Use Types Packs/Day Years Used Date Smoking Tobacco: Every Day Cigarettes 2.7 14.6 Started: 07/21/2010 Passive Smoke Exposure: Current Smokeless [...] Description 03/17/2025 9:00 AM EST Clinical Support [facility] MEDICINE [address] [place] [address] Sonali Stubbs, COREY [address] [place] [address] 04/05/2025 2:30 PM EST Office Visit [facility] MEDICINE [address] [place] [address] Name, MD Ananda [address] [place] [address] 08/06/2025 9:00 AM EDT Office Visit [facility] OPTOMETRY [address] [place] [address] Natalie Davis, OD [address] [place] [address] documented as of this encounter Goals Goal [...] chronic kidney disease No Latrice Ibrahim MD Patient has chronic kidney disease Care Plan Patient has chronic kidney disease No Geeta Dove PharmD Patient has chronic kidney disease Care Plan Patient has chronic kidney disease No Jessica Murray MA Patient has chronic kidney disease Care Plan Patient has chronic kidney disease No Natalie Davis OD documented as of this encounter Visit Diagnoses Not on filedocumented in this encounter Additional Health Concerns Active Problems Noted Date Diagnosed Date Help patients manage their type 2 diabetes 01/13 Patient has chronic kidney disease 01/13/2025 Patient has chronic kidney disease 01/18/2025 Patient has chronic kidney disease 01/19/2025 Patient has chronic kidney disease 01/26/2025 Patient has chronic kidney disease 02/03/2025 Patient has chronic kidney disease 02/05/2025 Assessment Noted Time PHQ-9 Depression Total Score: 5 07/16/19 25 11:03 AM EDT documented as of this encounter Care Teams Lead Burner Supervisor Relationship Specialty Start Date End Date Name, MD Ananda [address] [place] [phone] PCP - General Family Medicine 06/01/15 documented as of this encounter
--- OUTSIDE RECORDS SUMMARY | 2025-02-17 11:16 | XMS_ITS | Encounter Summary ---
Author Organization [employer] Address [address] [place] [address] 7t [place] [address] Care Team Providers Care Soybean Specialties Cook Name Role Phone Name, Ananda CRANDALL Primary Care Provider [phone] Geeta Dove PharmD Unavailable [phone] Encounter Details Date Type Department Care Team (Latest Contact Info) Description 01/09/2021 Abstract [facility] CONVERSIONS Dental, Provider, DDS Social History [...] Description 03/17/2025 9:00 AM EST Clinical Support [facility] MEDICINE [address] [place] [phone] Sonali Stubbs, RN [address] [place] [address] 04/05/2025 2:30 PM EST Office Visit [facility] MEDICINE [address] [place] [phone] Name, MD Ananda [address] [place] [address] 08/06/2025 9:00 AM EDT Office Visit [facility] OPTOMETRY [address] [place] [phone] Natalie Davis, OD [address] [place] [address] documented as of this encounter Visit Diagnoses Not on filedocumented in this encounter Care Teams Soybean Specialties Cook Relationship Specialty Start Date End Date Name, MD Ananda [address] [place] [address] PCP - General Family Medicine 06/01/15 Geeta Dove PharmD [address] [place] [address] Pharmacist Internal Medicine 07/21/24 01/26/25 documented as of this encounter
--- OUTSIDE RECORDS SUMMARY | 2025-02-17 11:16 | XMS_ITS | Encounter Summary ---
Author Organization [employer] Address [address] [facility] 7t [place] [address] Care Team Providers Care Assembler Motor Vehicle Name Role Phone Name, Ananda CRANDALL Primary Care Provider [phone] Geeta Dove PharmD Unavailable [phone] Reason for Visit * Reason Onset Date Comments Appointment 09/06/2022 Encounter Details Date Type Department Care Team ([facility] st Contact Info) Description 09/06/[address] [facility] ADULT DENTAL [address] [place] [address] Kelvin Haque DDS [address] [place], [place] [phone] Appointment Social History Tobacco Use Types Packs/Day [...] Description 03/17/2025 9:00 AM EST Clinical Support [facility] MEDICINE [address] [place] [address] Sonali Stubbs, COREY [address] [place] [address] 04/05/2025 2:30 PM EST Office Visit [facility] MEDICINE [address] [place] [address] Name, MD Ananda [address] [place] [address] 08/06/2025 9:00 AM EDT Office Visit [facility] OPTOMETRY [address] [place] [address] Natalie Davis, OD [address] [place] [address] documented as of this encounter Visit Diagnoses Not on filedocumented in this encounter Care Teams Assembler Motor Vehicle Relationship Specialty Start Date End Date Ananda Spain MD [address] [place] [address] PCP - General Family Medicine 06/01/15 Geeta Dove PharmD [address] [place] [address] Pharmacist Internal Medicine 07/21/24 01/26/25 documented as of this encounter
--- OUTSIDE RECORDS SUMMARY | 2025-02-17 11:17 | XMS_ITS | Encounter Summary ---
Author Organization [employer] Address [address] [facility] 7t [place] [address] Care Team Providers Care Ramp Jockey Name Role Phone Name, Ananda CRANDALL Primary Care Provider [phone] Geeta Dove PharmD Unavailable [phone] Reason for Visit * Reason Comments Med Refill Encounter Details Date Type Department Care Team ([facility] st Contact Info) Description 12/11/2023 Refill [facility] MED[facility] [address] [place], [place] [phone] Name, MD Ananda [address] [place] [address] Type 2 diabetes mellitus without complication, unspecified whether long term care pharmacist insulin use ([facility]) Social History Tobacco Use Types Packs/Day Years [...] Description 03/17/2025 9:00 AM EST Clinical Support [facility] MEDICINE [address] [place] [phone] Sonali Stubbs, COREY [address] [place] [address] 04/05/2025 2:30 PM EST Office Visit [facility] MED[facility]INE [address] [place] [phone] Ananda Spain MD [address] [place] [address] 08/06/2025 9:00 AM EDT Office Visit [facility] OPTOMETRY [address] [place] [address] Natalie Davis, OD [address] [place] [address] documented as of this encounter Visit Diagnoses Diagnosis Type 2 diabetes mellitus without complication, unspecified whether long term care pharmacist insulin use documented in this encounter Additional Health Concerns Assessment Noted Time PHQ-9 Depression Total Score: 10 024 9:15 AM EDT documented as of this encounter Care Teams Ramp Jockey Relationship Specialty Start Date End Date Ananda Spain MD [address] [place] [address] PCP - General Family Medicine 06/01/15 Geeta Dove, LoretoD [address] [place] [address] [place] [address] Pharmacist Internal Medicine 07/21/24 01/26/25 documented as of this encounter
--- OUTSIDE RECORDS SUMMARY | 2025-02-17 11:17 | XMS_ITS | Encounter Summary ---
Author Organization [employer] Address [address] [place] [address] 7t [place] [address] Care Team Providers Care Piano Tuner Name Role Phone Name, Ananda CRANDALL Primary Care Provider [phone] Geeta Dove PharmD Unavailable [phone] Encounter Details Date Type Department Care Team (Late Contact Info) Description 02/14/2022 Abstract [facility] MEDICINE [address] [place] [address] [phone] ProviderDamari MD Social History Tobacco Use Types [...] [facility] Contact Info) Description 03/17/2025 9:00 AM EST Clinical Support [address] [address] Sonali Stubbs, COREY [address] [place] [address] 04/05/2025 2:30 PM EST Office Visit [facility] MEDICINE [address] [place] [address] Name, MD Ananda [address] [place] [address] 08/06/2025 9:00 AM EDT Office Visit [facility] OPTOMETRY [address] [place] [address] Natalie Davis, OD [address] [place] [address] documented as of this encounter Visit Diagnoses Not on filedocumented in this encounter Care Teams Piano Tuner Relationship Specialty Start Date End Date Name, MD Ananda [address] [place] [address] PCP - General Family Medicine 06/01/15 Geeta Dove PharmD [address] [place] [address] Pharmacist Internal Medicine 07/21/24 01/26/25 documented as of this encounter
--- OUTSIDE RECORDS SUMMARY | 2025-02-17 11:17 | XMS_ITS | Encounter Summary ---
Author Organization [email or web address] Address [address] [facility] 7t [place] [address] Care Team Providers Care Outdoor Landscape Architect Name Role Phone Name, Ananda CRANDALL Primary Care Provider [phone] Geeta Dove PharmD Unavailable [phone] Reason for Visit * Reason Onset Date Comments Durable Medical Equipment 06/08/2022 Encounter Details Date Type Department Care Team ([facility] st Contact Info) Description 06/08/2022 Telephone [facility] MEDICINE [address] [place], [place] [phone] Name, MD Ananda [address] [place] [address] Durable Medical Equipment Social History Tobacco Use [...] states unable to get a hold of payroll coordinator and would like to know if PCP can send script directly to [facility] . Please contact at [phone] * Telephone Encounter - Arleen Ramirez - 06/11/2022 11:28 AM EDT TC to patient and informed him to contact his manager critical care as a script for a recliner was emailed to her previously. Patient understood and agreed with plan. * Telephone Encounter - Darian Joiner - 06/08/2022 4:29 PM EDT Tc from pt requesting a script for a recliner chair to be send to [facility] please contact pt at [phone] documented in this encounter Plan of Treatment Upcoming Encounters Date Type Department Care Team (Late st Contact Info) Description 03/17/2025 9:00 AM EST Clinical Support [facility] MEDICINE [address] [place] [address] Sonali Stubbs, COREY [address] [place] [address] 04/05/2025 2:30 PM EST Office Visit [facility] MEDICINE [address] [place] [address] Name, MD Ananda [address] [place] [address] 08/06/2025 9:00 AM EDT Office Visit [facility] OPTOMETRY [address] [place] [address] Natalie Davis OD [address] [place] [address] documented as of this encounter Visit Diagnoses Not on filedocumented in this encounter Care Teams Outdoor Landscape Architect Relationship Specialty Start Date End Date Name, MD Ananda [address] [place] [address] PCP - General Family Medicine 06/01/15 Geeta Dove, Donte [address] [place] [address] Pharmacist Internal Medicine 07/21/24 01/26/25 documented as of this encounter
--- OUTSIDE RECORDS SUMMARY | 2025-02-17 11:17 | XMS_ITS | Encounter Summary ---
Author Organization [employer] Address [address] [facility] 7t [place] [address] Care Team Providers Care Customer Advocacy Manager Name Role Phone Name, Ananda CRANDALL Primary Care Provider [phone] Geeta Dove PharmD Unavailable Reason for Visit * Reason Onset Date Comments Durable Medical Equipment 09/18/2022 Encounter Details Date Type Department Care Team ([facility] st Contact Info) Description 09/18/2022 Telephone [facility] MEDICINE [address] [place], [place] [phone] Name, MD Ananad [address] [place] [address] Durable Medical Equipment Social History Tobacco Use [...] 09/21/2022 1:49 PM EDT Incoming call from [facility] PT regarding message below. [facility] PT states they have no record of pt ever going to their offices and getting PT. Unsure what next steps should be at this point. * Telephone Encounter - Christy Finn RN - 09/21/2022 1:39 PM EDT TC X1 to [facility] PT [phone] regarding message below. LVM to return call to nurses. * Telephone Encounter - Lauren Walsh - 09/20/2022 3:14 PM EDT Tc from patient returning call back, regarding message below. Patient states he's going to PT in [facility]. [address] [place] [address] [place] [phone] [address]. Mcdaniel. * Telephone Encounter - Christy [...] Description 03/17/2025 9:00 AM EST Clinical Support [address] [address] Sonali Stubbs, RN [address] [place] [address] 04/05/2025 2:30 PM EST Office Visit [facility] MEDICINE [address] [place] [address] Name, MD Ananda [address] [place] [address] 08/06/2025 9:00 AM EDT Office Visit [facility] OPTOMETRY [address] [place] [address] Natalie Davis, OD [address] [place] [address] documented as of this encounter Visit Diagnoses Not on filedocumented in this encounter Care Teams Customer Advocacy Manager Relationship Specialty Start Date End Date Name, MD Ananda [address] [place] [address] PCP - General Family Medicine 06/01/15 Geeta Dove, LoretoD [address] [place] [address] Pharmacist Internal Medicine 07/21/24 01/26/25 documented as of this encounter
--- OUTSIDE RECORDS SUMMARY | 2025-02-17 11:17 | XMS_ITS | Encounter Summary ---
Author Organization [employer] Address [address] [facility] 7t [place] [address] Care Team Providers Care Non Emergency Services Ambulance Driver Name Role Phone Name, Ananda CRANDALL Primary Care Provider [phone] Geeta Dove PharmD Unavailable [phone] Reason for Visit * Reason Comments Med Refill Encounter Details Date Type Department Care Team ([facility] st Contact Info) Description 08/23/[address] [facility] MEDICINE [address] [place], [place] [phone] Name, MD Ananda [address] [place] [address] Chronic obstructive pulmonary disease, unspecified COPD type [...] 9:00 AM EST Clinical Support [facility] MEDICINE [address] [place] [address] Sonali Stubbs, COREY [address] [place] [address] 04/05/2025 2:30 PM EST Office Visit [facility] MEDICINE [address] [place] [address] Name, MD Ananda [address] [place] [address] 08/06/2025 9:00 AM EDT Office Visit [facility] OPTOMETRY [address] [place] [address] [phone] Natalie Davis OD [address] [place] [address] documented as of this encounter Goals Goal [...] documented as of this encounter Care Teams Non Emergency Services Ambulance Driver Relationship Specialty Start Date End Date Name, MD Ananda [address] [place] [address] PCP - General Family Medicine 06/01/15 Geeta Dove PharmD [address] [place] [address] Pharmacist Internal Medicine 07/21/24 01/26/25 documented as of this encounter
--- OUTSIDE RECORDS SUMMARY | 2025-02-17 11:17 | XMS_ITS | Encounter Summary ---
Author Organization [employer] Address [address] [facility] 7t [place] [address] Care Team Providers Care Farm Equipment Service Technician Name Role Phone Name, Ananda CRANDALL Primary Care Provider [phone] Geeta Dove PharmD Unavailable [phone] Reason for Visit * Reason Comments Med Refill Encounter Details Date Type Department Care Team (Late Contact Info) Description 06/07/2022 Refill [facility] [address] [place] [address] [phone] Sebastián Graves MD [address] [place] [address] Pain of left leg Social History Tobacco [...] Care Team ([facility] Contact Info) Description 03/17/2025 9:00 AM EST Clinical Support [facility] MEDICINE [address] [place] [address] [phone] Sonali Stubbs, RN [address] [place] [address] 04/05/2025 2:30 PM EST Office Visit [facility] MEDICINE [address] [place] [address] Name, MD Ananda [address] [place] [address] 08/06/2025 9:00 AM EDT Office Visit [facility] OPTOMETRY [address] [place] [address] Natalie Davis, OD [address] [place] [address] documented as of this encounter Visit Diagnoses Diagnosis Pain of left leg documented in this encounter Care Teams Farm Equipment Service Technician Relationship Specialty Start Date End Date Name, MD Ananda [address] [place] [address] PCP - General Family Medicine 06/01/15 Geeta Dove PharmD [address] [place] [address] Pharmacist Internal Medicine 07/21/24 01/26/25 documented as of this encounter
--- OUTSIDE RECORDS SUMMARY | 2025-02-17 11:17 | XMS_ITS | Clinical Summary ---
Author Organization [employer] Address [address] [place] [address] 7t [place] [address] Care Team Providers Care Tobacco Curer Name Role Phone Name, Ananda CRANDALL Primary Care Provider [phone] Allergies No known active allergies Medications ramelteon (Rozerem) 8 MG tablet Take 1 tablet by mouth at bed time. Active Misc. Devices (Pulse Oximeter For Finger) miscIndications :COPD exacerbation (CMS/HCC) ([facility]) 1 each 2 times daily. Call [facility] if consistently < 95% 1 each 023 Active clonazePAM (KlonoPIN) 1 MG tablet Take 1 mg by mouth 2 times daily. 023 Active Lancets (OneTouch Delica Plus Diwbzu51V) mis TEST BLOOD SUGAR THREE TIMES DAILY [...] penIndications: Diabetes mellitus type 2 in nonobese ([facility]) INJECT SUBCUTANEOUSLY [...] obstructive pulmonary disease, unspecified COPD type (CMS/HCC) ([facility]) INHALE 2 PUFFS BY MOUTH EVERY 4 TO 6 HOURS NEEDED 18 g 5 Active BD Pen Needle Pham U/F 32G X 4 MM miscIndications :Type 2 diabetes mellitus without complication, unspecified whether assisted insulin use USE DIRECTED FOUR TIMES DAILY 100 each 5 025 Active montelukast (Singulair) 10 MG tabletIndicatio ns:Seasonal allergic rhinitis, unspecified trigger Take 1 tablet (10 mg) by mouth at bedtime. 90 tablet 1 01/19/20 25 1:09 PM EST Active Continuous Glucose Sensor (FreeStyle Kasey 3 Plus Sensor) misc 2 each every 8 (eight) hours. Active Multiple Vitamin (Multivitamin) tablet TAKE 1 TABLET BY MOUTH EVERY DAY WITH FOOD 90 tablet 3 02/02/20 25 10:28 AM EST 025 Active ipratropium-alb uterol (Duo-Neb) 0.5-2.5 mg/3 mL nebulizer solution INHALE 1 AMPULE USING A NEBULIZER EVERY 6 HOURS NEEDED FOR WHEEZING OR SHORTNESS OF BREATH 025 Active FreeStyle Precision Isak Test test stripIndication s:Type 2 diabetes mellitus with hyperglycemia, with long-term current use of insulin ([facility]) USE TO TEST BLOOD SUGAR THREE TIMES DAILY 100 strip 3 Active Alcohol Swabs (Alcohol Prep) 70 % pads USE FOUR TIMES DAILY DIRECTED 100 each 11 02/02/20 25 10:29 AM EST 025 Active Acetaminophen Extra Strength 500 MG tabletIndicatio ns:Cough in adult patient TAKE 1 TABLET BY MOUTH THREE TIMES DAILY 90 tablet 2 02/16/20 25 1:14 PM EST 025 Active sennosides (Nanci-deanna) 8.6 MG tabletIndicatio ns:Constipation , unspecified constipation type TAKE 2 TABLETS BY MOUTH ONCE DAILY NEEDED FOR CONSTIPATION 60 tablet 5 025 Active predniSONE (Deltasone) 10 MG tabletIndicatio ns:COPD exacerbation (CMS/HCC) ([facility]) Take by oral route daily. 6 tabs (=60mg) on day 1-2; 5 tabs (=50mg) on day 3-4; 4 tabs (=40mg) on day 5-6; 3 tabs (=30mg) on day 7-8; 2 tabs (=20mg) on day 9-10; 1 tab on day 11-12; 1/2 tab on day 13-14 43 tablet 025 Active Suboxone 8-2 MG SL filmIndications :Uncomplicated opioid dependence (CMS/HCC) ([facility]) Place 3 Film under the tongue Once per day. 84 Film 1 02/17/20 25 11:19 AM EST 025 2025 Active atorvastatin (Lipitor) 40 MG tabletIndicatio ns:Type 2 diabetes mellitus with hyperglycemia, with long-term current use of insulin ([facility]) TAKE 1 TABLET BY MOUTH EVERY DAY 90 tablet 1 02/02/20 25 10:28 AM EST 025 Active Aspirin Low Dose 81 MG EC tabletIndicatio ns:Pain of left leg TAKE 1 TABLET BY MOUTH EVERY DAY IN THE MORNING 90 tablet 1 02/02/20 25 10:29 AM EST 025 Active amoxicillin-cla vulanate (Augmentin) 875-125 MG tablet Take 1 tablet by mouth 2 times daily. 14 tablet 02/04/20 25 12:52 PM EST 025 Active Fluticasone-Ume clidin-Vilant (Trelegy Ellipta) 200-62.5-25 MCG/ACT aerosol powder Inhale 1 puff in the morning. 1 each 3 02/04/20 25 12:52 PM EST 025 Active nicotine polacrilex (Commit) 2 MG lozengeIndicati ons:Tobacco dependence DISSOLVE 1 LOZENGE IN MOUTH EVERY 1 TO 2 HOURS NEEDED DO NOT EXCEED 20 PER 24 HOURS 72 lozenge 1 Active albuterol (2.5 MG/3ML) 0.083% nebulizer solution INHALE 1 AMPULE USING APPLY NEBULIZER EVERY 6 HOURS IN THE LEFT EAR NEEDED FOR WHEEZING 90 mL 11 Active varenicline (Chantix) 1 MG tabletIndicatio ns:Tobacco dependence Take 1 tablet (1 mg) by mouth 2 times daily. Take with full glass of water. 56 tablet 4 025 2024 Discontinued(T herapy completed) albuterol (2.5 MG/3ML) 0.083% nebulizer solution Take 2.5 mg by nebulization every 6 (six) hours if needed for wheezing. 025 2024 Discontinued Fluticasone Furoate-Vilante rol (Breo Ellipta) 100-25 MCG/ACT aerosol powder Inhale 1 Inhalation Once per day. 28 each 3 01/21/20 25 9:35 AM EST 2024 Discontinued(I neffective) Umeclidinium [place] (Incruse Ellipta) 62.5 MCG/ACT aerosol powder Inhale 1 Act (62.5 mcg) Once per day. 30 each 01/21/20 25 9:35 AM EST 025 2024 Discontinued(I neffective) nicotine polacrilex (Commit) 2 MG lozengeIndicati ons:Tobacco dependence Dissolve 1 lozenge, as directed, every 1-2 hours as needed for cravings. Max 20 lozenges per 24 hours. 72 lozenge 1 02/02/20 25 10:29 AM EST 2024 Discontinued predniSONE (Deltasone) 20 MG tablet Take 2 tablets (40 mg) by mouth Once per day for 5 days. 10 tablet 02/04/20 25 12:51 PM EST 2024 Active Problems Problem Noted Date Diagnosed Date COPD exacerbation ([facility]) 10/16/2024 Assessment & Plan (01/12/2025 11:19 AM [...] appointment on 10/21/2024 at 10 am at [facility] pulmonology [place], [address] [place] [address], I advise not to miss this appointment [...] and left lower lobe calcified large granuloma. [place] [address] [address] Scan Report Signed Patient: Hubert Rios MR#: [id number] : 1965 Acct:[id number] Age/Sex: 59 / M ADM Date: 07/02/24 Loc: HO.CT Attending Dr: Chanel Thomas [employer] Ordering Physician: Chanel Thomas NP Date of Service: 07/02/24 Procedure(s): CT chest wo IV con Accession Number(s): [id number] cc: Grabiel,Ananda CRANDALL; Chanel Thomas NP Report Number: [id number]: Total DLP = 110.00 mGy-cm EXAMINATION: CT [...] Encounters Date Type Department Care Team Description 02/13/[address] [facility] [address] [facility] [address] Ananda Spain MD 02/05/2025 9:30 AM EST Office Visit [facility] OPTOMETRY [address] [place] [address] Tarka, Natalie, OD Other specified disorders of choroid (Primary Dx) 02/05/2025 Travel 02/04/[address] [facility] [address] [facility] [place] [address] Ananda Spain MD Tobacco dependence 02/03/2025 10:40 AM EST Office Visit [facility] [address] Sebastián Graves MD Chronic obstructive pulmonary disease with acute exacerbation (CMS/HCC) (HCC) (Primary Dx) 02/03/2025 Travel 01/27/2025 10:00 AM EST Telemedicine [facility] [place] [address] Geeta Dove PharmD Tobacco dependence (Primary Dx) 01/21/2025 Orders Only GENERIC EXTERNAL DATA DEPARTMENT Provider, Generic External Data 01/20/2025 9:15 AM EST Office Visit [facility] [place] [address] Latrice Ibrahim MD Uncomplicated opioid dependence (CMS/HCC) (HCC) (Primary Dx) 01/18/2025 3:15 PM EST Office Visit [facility] [place] [address] Ananda Spain MD Chronic obstructive pulmonary disease, unspecified COPD type (CMS/HCC) (HCC) (Primary Dx); Encounter for immunization; Vaccination refused by patient; Type 2 diabetes mellitus with hyperglycemia, with long-term current use of insulin (HCC) 01/18/2025 Travel 01/17/[address] [facility] [address] [place] [address] Ananda Spain MD Type 2 diabetes mellitus with hyperglycemia, with long-term current use of insulin (HCC); Pain of left leg 01/13/[address] [facility] [address] [place] [address] Sonali Stubbs, COREY Uncomplicated opioid dependence (CMS/HCC) (HCC) 01/12/2025 11:00 AM EST Office Visit [facility] [address] [place] [phone] Alondra Montalov MD COPD with acute exacerbation (CMS/HCC) ([facility]) (Primary Dx); COPD exacerbation (CMS/HCC) (HCC) 01/12/2025 Travel 01/05/[address] [facility] [address] [place] [address] Puia, Geeta, PharmD Tobacco dependence 12/29/2024 9:00 AM EDT Telemedicine [address] [address] Puia, Geeta, PharmD Tobacco dependence (Primary Dx) 12/18/[address] [facility] [address] [place] [address] Ananda Spain MD Constipation, unspecified constipation type 12/17/2024 10:20 AM EDT Office Visit [facility] [address] [place] [address] Luis Espinoza MD COPD exacerbation ([facility]) ([facility]) (Primary Dx) 12/17/2024 Travel 12/11/2024 [facility] [address] [place] [address] Ananda Spain MD Cough in adult patient 12/02/2024 Orders Only GENERIC EXTERNAL DATA DEPARTMENT Provider, Generic External Data 11/27/2024 9:00 AM EDT Telemedicine [address] [address] Puia, Geeta, PharmD Tobacco dependence (Primary Dx) 11/25/2024 9:15 AM EDT Office Visit [address] [address] Latrice Ibrahim MD Uncomplicated opioid dependence (CMS/HCC) (Primary Dx) 11/25/2024 Travel 11/24/[address] [address] Ananda Spain MD 11/23/2024 Orders Only GENERIC EXTERNAL DATA DEPARTMENT Provider, Generic External Data 11/18/[address] [facility] [address] [place] [address] Sonali Stubbs RN Uncomplicated opioid dependence ([facility]) from Last 3 Months Immunizations Immunization Administration [...] Sign Reading Time Taken Comments Blood Pressure 117/82 02/03/2025 11:03 AM EST Pulse 107 02/03/2025 11:03 AM EST Temperature 35.7 C (96.2 F) 02/03/2025 11:03 AM EST Respiratory Rate 20 02/03/2025 11:0 3 AM EST Oxygen Saturation 98% 02/03/2025 11: 03 AM EST Inhaled Oxygen Concentration - - Weight 53.9 kg (118 lb 12.8 oz) 025 11:03 AM EST Height 168.9 cm (5' 6.5 ) 01/18/2025 2:48 PM EST Body Mass Index 18.89 01/18/2025 2:48 PM EST Plan of Treatment Upcoming Encounters Date Type Department Care Team (Late st Contact Info) Description 03/17/2025 9:00 AM EST Clinical Support [facility] [address] [place] [address] Sonali Stubbs, RN [address] [place] [address] 04/05/2025 2:30 PM EST Office Visit [facility] [address] [place] [phone] Name, MD Ananda [address] [place] [address] 08/06/2025 9:00 AM EDT Office Visit [facility] OPT[facility] [address] [place] [address] Natalie Davis, OD [address] [place] [address] Health Maintenance Due Date Last Done Comments [...] 07/15/2024 SDOH Screening 07/15/2025 07/15/2024 Tobacco Screening 02/05/2026 02/05/2025 Eye Exam 02/05/2027 02/05/2025, 1207/2024, 02/05/2025, Additional history exists DTaP/Tdap/Td Vaccines (4 - [...] Patient has chronic kidney disease No Sonali Stubbs, RN Patient has chronic [...] chronic kidney disease No Natalie Davis OD Procedures Procedure Name Priority Date/Time Associated Diagnosis Comments OCT, RETINA - OU - BOTH EYES Routine 02/05/2025 9:30 AM EST Other specified disorders of choroid POCT RAPID COVID ANTIGEN Routine 02/03/2025 1:28 PM EST Chronic obstructive pulmonary disease with acute exacerbation (CMS/HCC) (HCC) POCT INFLUENZA B Routine 02/03/2025 1:28 PM EST Chronic obstructive pulmonary disease with acute exacerbation (CMS/HCC) (HCC) POCT INFLUENZA A Routine 02/03/2025 1:28 PM EST Chronic obstructive pulmonary disease with acute exacerbation (CMS/HCC) (HCC) GLUCOSE, WHOLE BLOOD Routine 01/21/2025 12:40 PM [...] WHOLE BLOOD Routine 11/23/2024 9:21 AM EDT ALBUMIN, RANDOM URINE W/CREATININE Routine [...] OCT, Retina - OU - Both Eyes (02/05/2025 9:30 AM EST) Narrative Natalie Davis, OD - 02/12/2025 8:42 AM EST OCT RETINA INTERPRETATION Optical Coherence Tomography Interpretation Report Reliability: OD: SS 47, adequate quality OS: SS 41, adequate quality Measurements: Central subfoveal thickness OD: 253 microns OS: 246 microns Test findings: OD: Pachychoroid. Some mild fragmentation of RPE is present temporal to fovea. Resolution of 2 juxtafoveal PEDs that were present on 03/05/2024. Improved. OS: Pachychoroid. PIL and RPE irregularity with a SIRE like lesions inferiorly nasally encroaching onto fovea, VMA, no IRF/subretinal fluid (SRF). Stable to last. Impression and Plan: Pachychoroid spectrum disorder both eyes (OU). RTC in 4 months. us Natalie Davis OD OPHTH TOMOGRAPHY Final Result * POCT Rapid COVID Ag (02/03/2025 1:28 PM EST) Rapid COVID Ag Negative Swab 02/03/2025 1:28 PM EST Sebastián Graves MD POINT OF CARE TEST ENTER/EDIT OR DERABLES Final Result * POCT Influenza B manually resulted (02/03/2025 1:28 PM EST) [facility] Rapid Influenza B Ag Negative Negative, Indeterminate Swab 02/03/2025 1:28 PM EST Result [facility] Sebastián Graves MD POINT OF CARE TEST ENTER/EDIT OR DERABLES Final Result * POCT Influenza A manually resulted (02/03/2025 1:28 PM EST) [facility] Rapid Influenza A Ag Negative Negative, Indeterminate Swab Nasopharyngeal structure / Unknown 02/03/2025 1:28 PM EST Sebastián Graves MD POINT OF CARE TEST ENTER/EDIT OR DERABLES Final Result * (ABNORMAL) Glucose, Whole Blood (01/21/2025 12:40 PM EST) Only the most recent of2 resultswithin the time period is included. [facility] Glucose, Whole Blood 244(H) 60 - 115 mg/dL [facility] Comment:METER #: [id number] 0Testing performed in the Endocrinology Department [address] , [address], [facility]. 01/21/2025 12:4 0 PM EST 01/21/2025 12:44 PM EST Generic External Data Provider LAB BLOOD ORDERAB LES Final Result [facility] [address] [place] [address] [phone] * (ABNORMAL) POCT FARA-14 Urine Drug Screen (01/20/2025 9:05 AM EST) [facility] THC Negative Negative Cocaine Screen, Urine Negative [...] hemoglobin (Hgb A1c) (01/18/2025 3:23 PM EST) Hemoglobin A1C 8.3(A) 4.0 - 5.7 % QC Media Lot # [id number] Lot# Expiration Date Blood Capillary blood specimen / Unknown 01/18/2025 3:23 PM EST Result [facility] us Ananda Spain MD POINT OF CARE TEST ENTER/EDIT OR DERABLES Final Result * (ABNORMAL) POCT glucose manually resulted (01/18/2025 3:22 PM EST) Pathologist [facility] Glucose Blood, POC 313(A) 60 - 200 mg/dL [facility] QC Media Lot # [id number] [facility] Lot# Expiration Date [id number] [facility] Blood Capillary blood specimen / Unknown 01/18/2025 3:22 PM EST Result [facility] Ananda Spain MD POINT OF CARE TEST ENTER/EDIT OR DERABLES Final Result [facility] [address] [place], [place] [phone] * (ABNORMAL) Immunoglobulin E (12/02/2024 8:10 AM EDT) Immunoglobulin E 373(A) <CL=339 kU/L [facility] Comment:THIS TEST WAS PERFOR MED AT:[address] [place] [id number] GARCIA MD 12/02/2024 8:10 AM EDT 12/02/2024 8:10 AM EDT us Generic External Data Provider LAB BLOOD ORDERAB LES Final Result Performing Organization Address [facility] Co de Phone Number [facility] [address] [place] [phone] * Albumin, Random Urine W/Creatinine (05/29/2024 8:43 AM EDT) Creatinine, Urine 126.68 mg/dL [facility] Microalbumin Urine 15.0 mg/L [facility] Microalbum Creatinine Ratio Ur 11.8 <30 ug/mg cr [facility] Comment:Albumin/Creatinine R atio Reference Ranges: Normal: < 30 ug/mg creatinine Microalbuminuria: 30 - 300 ug/mg creatinineClinical Albuminuria: > 300 ug/mg creatinine 05/29/2024 8:43 AM EDT 05/29/2024 9:05 AM EDT us Generic External Data Provider LAB URINE ORDERAB LES Final Result Performing Organization Address City/[facility]/ZIP Co de Phone Number [facility] [address] [place] [phone] * (ABNORMAL) Lipid Panel, Standard (05/27/2024 8:40 AM EDT) Triglycerides 73 <150 mg/dL [facility] Comment:Desirable Triglyceri de: less than 150 mg/dLBorderline High Triglyceride 150-199 mg/dLHigh Triglyceride: 200-499 mg/dLVery High Triglyceride: greater than or equal to 5OO mg/dL Cholesterol 221(H) <200 mg/dL [facility] Comment:Desirable Cholestero l: less than 200 mg/dLBorderline High Cholesterol: 200-239 mg/dLHigh Cholesterol: greater than 239 mg/dL LDL Cholesterol Calculated 75 <100 mg/dL [facility] Comment:Desirable LDL: less than 100 mg/dLNear Optimal/Above Optimal LDL: 110- 129 mg/dLBorderline High LDL: 130-159 mg/dLHigh LDL: 160-189 mg/dLVery High LDL: greater than or equal to 190 mg/dL HDL Cholesterol 132 >40 mg/dL [facility] Comment:Desirable HDL: great er than 40 mg/dL Note: This HDL assay may give artificially low results in patients with liver disease. Blood Venous blood specimen / Unknown 05/27/2024 8:40 AM EDT 05/27/2024 8:40 AM EDT Ananda Spain MD LAB BLOOD ORDERABLES Final Resul t Performing Organization Address [facility] Co de Phone Number [facility] [address] [place] [phone] * (ABNORMAL) Hepatitis C Antibody with Reflex to HCV, RNA, Quantitative, Real- Time PCR (03/29/2023 9:12 AM EST) Hepatitis C Antibody Reactive( A) Nonreactive [facility] Comment:Presumptive evidence of antibodies to HCV. 03/29/2023 9:12 AM EST 03/29/2023 11:11 AM EST Latrice Ibrahim MD LAB BLOOD ORDERABLES Final Resul t Performing Organization Address [facility] Co de Phone Number [facility] [address] [place] [phone] * HIV-1/2 Antigen and Antibodies, Fourth Generation, with Reflexes (03/29/2023 9:12 AM EST) HIV AB/AG Nonreactive Nonreactive [facility] Comment:HIV-1 p24 Ag and/or HIV-1/HIV-2 Ab not detected.A test result that is nonreactive does not exclude thepossibility of exposure to or infection with HIV-1 and/orHIV-2. Nonreactive results in this assay for individualswith prior exposure to HIV-1 and/or HIV-2 may be due toantigen and antibody levels that are below the limit ofdetection of this assay.The [employer] HIV Ag/Ab Combo assay result andsupplemental assay results should be interpreted inconjunction with the patient's clinical presentation,history and other laboratory results. If the results areinconsistent with clinical evidence, additional testing issuggested to confirm the result. 03/29/2023 9:12 AM EST 03/29/2023 11:11 AM EST us Latrice Ibrahim MD LAB BLOOD ORDERABLES Final Resul t [facility] [address] [place] [phone] * Hm Colonoscopy (08/16/2015 1:52 PM [...] 02/03/2025 Patient has chronic kidney disease 02/05/2025 [facility] CARE < 65 Care Teams Tobacco Curer Relationship Specialty Start Date End Date Name, MD Ananda [address] [place] [phone] PCP - General Family Medicine 06/01/15
--- OUTSIDE RECORDS SUMMARY | 2025-02-17 11:17 | XMS_ITS | Encounter Summary ---
Author Organization [employer] Address [address] [place] [address] [address] [place] [address] Care Team Providers Care Design Supervisor Name Role Phone Name, nAanda CRANDALL Primary Care Provider [phone] Geeta Dove PharmD Unavailable [phone] Encounter Details Date Type Department Care Team (Late Contact Info) Description 05/10/2022 Orders Only [facility] [address] [place] [phone] Alis Zavala, COREY Uncomplicated opioid dependence (CMS/[facility]) Social History Tobacco Use Types Packs/Day [...] Department Care Team (Late Contact Info) Description 03/17/2025 9:00 AM EST Clinical Support [facility] [address] [place] [address] Sonali Stubbs, COREY [address] [place] [address] 04/05/2025 2:30 PM EST Office Visit [facility] [address] [place] [address] Name, MD Ananda [address] [place] [phone] 08/06/2025 9:00 AM EDT Office Visit [facility] [address] [place], [place] [phone] Natalie Davis, OD [address] [place] [address] documented as of this encounter Visit Diagnoses Diagnosis Uncomplicated opioid dependence (CMS/HCC) (HCC) documented in this encounter Care Teams Design Supervisor Relationship Specialty Start Date End Date Name, MD Ananda [address] [place] [phone] PCP - General Family Medicine 06/01/15 Geeta Dove, LoretoD [address] [place] [phone] Pharmacist Internal Medicine 07/21/24 01/26/25 documented as of this encounter
--- OUTSIDE RECORDS SUMMARY | 2025-02-17 11:17 | XMS_ITS | Encounter Summary ---
Author Organization [employer] Address [address] [place] [address] Care Team Providers Care Laboratory Analyst Name Role Phone Name, Ananda CRANDALL Primary Care Provider [phone] Geeta Dove PharmD Unavailable [phone] Reason for Visit * Reason Comments Med Refill Encounter Details Date Type Department Care Team ([facility] st Contact Info) Description 09/19/2023 Refill [facility] [address] [place], [place] [phone] Name, MD Ananda [address] [place] [address] Pain of left leg Social History Tobacco [...] 03/17/2025 9:00 AM EST Clinical Support [facility] [address] [place] [address] Sonali Stubbs RN [address] [place] [address] 04/05/2025 2:30 PM EST Office Visit [facility] [address] [place] [phone] NameAnanda MD [address] [place] [address] 08/06/2025 9:00 AM EDT Office Visit [facility] [address] [place] [address] Natalie Davis, OD [address] [place] [address] documented as of this encounter Visit Diagnoses Diagnosis Pain of left leg documented in this encounter Additional Health Concerns Assessment Noted Time PHQ-9 Depression Total Score: 10 024 9:15 AM EDT documented as of this encounter Care Teams Laboratory Analyst Relationship Specialty Start Date End Date Ananda Spain MD [address] [place] [phone] PCP - General Family Medicine 06/01/15 Geeta Dove, Donte [address] [place] [phone] Pharmacist Internal Medicine 07/21/24 01/26/25 documented as of this encounter
--- OUTSIDE RECORDS SUMMARY | 2025-02-17 11:17 | XMS_ITS | Encounter Summary ---
Author Organization [employer] Address 75 [facility] 7t [place] [address] Care Team Providers Care Ticket Sales Agent Name Role Phone Ananda Spain MD Primary Care Provider [phone] Geeta Dove PharmD Unavailable [phone] Reason for Visit * Reason Onset Date Comments ER Follow-up 09/26/2022 Encounter Details Date Type Department Care Team ([facility] st Contact Info) Description 09/26/2022 Telephone [facility] MEDICINE [address] [place], [place] [phone] Name, MD Ananda 230 [place] [address] ER Follow-up Social History Tobacco Use Types [...] 10:24 AM EDT T/c to pt. Through [facility] for below message, pt. 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 [facility] hours are reviewed. * Telephone Encounter - Hawa Morales - 10/01/2022 9:35 AM EDT Tc from pt returning call regarding message below. Please contact pt at [phone] (maltese speaker) * Telephone Encounter - Em Lebalnc RN - 09/27/2022 3:29 PM EDT T/C to pt. On [phone] through [facility] for status check and to schedule follow up apt. No answer. LVM to call back on [phone]. * Telephone Encounter - Netta Alvares - 09/26/2022 11:04 AM EDT Tc from pt calling to advise PCP of an ER visit to [facility] on 09/24/22 for surgery on the left leg. Pt advised will forward to team nurse for f/u. Please contact pt at [phone] (Wolof) documented in this encounter Plan of Treatment Upcoming Encounters Date Type Department Care Team (Late st Contact Info) Description 03/17/2025 9:00 AM EST Clinical Support [facility] MEDICINE [address] [place] [address] Sonali Stubbs, COREY [address] [place] [address] 04/05/2025 2:30 PM EST Office Visit [facility] MEDICINE [address] [place] [address] Name, MD Ananda [address] [place] [address] 08/06/2025 9:00 AM EDT Office Visit [facility] OPTOMETRY [address] [place], [place] [phone] Natalie Davis OD [address] [place] [address] documented as of this encounter Visit Diagnoses Not on filedocumented in this encounter Care Teams Ticket Sales Agent Relationship Specialty Start Date End Date Name, MD Ananda [address] [place] [address] PCP - General Family Medicine 06/01/15 Geeta Dove PharmD [address] [place] [address] Pharmacist Internal Medicine 07/21/24 01/26/25 documented as of this encounter
--- OUTSIDE RECORDS SUMMARY | 2025-02-17 11:17 | XMS_ITS | Encounter Summary ---
Author Organization [employer] Address [address] [place] [address] 7t [place] [address] Care Team Providers Care Carpet Sewing Machine Operator Name Role Phone Name, Ananda CRANDALL Primary Care Provider [phone] Geeta Dove PharmD Unavailable Reason for Visit * Reason Comments Med Refill Encounter Details Date Type Department Care Team (Late st Contact Info) Description 12/07/2022 Refill [facility] MEDICINE 230 [place] [address] Name, MD Ananda 230 [place] [address] Type 2 diabetes mellitus without complication, unspecified whether intermodal dispatcher insulin use ([facility]); Type 2 diabetes mellitus without complication, with long-term current use of insulin ([facility]) Social History Tobacco Use Types [...] Description 03/17/2025 9:00 AM EST Clinical Support [facility] MEDICINE [address] [place] [address] Sonali Stubbs, COREY [address] [place] [address] 04/05/2025 2:30 PM EST Office Visit [facility] MEDICINE [address] [place] [address] Name, MD Ananda [address] [place], [place] 08/06/2025 9:00 AM EDT Office Visit [facility] OPTOMETRY [address] [place] [address] Natalie Davis OD [address] [place] [address] documented as of this encounter Visit Diagnoses Diagnosis Type 2 diabetes mellitus without complication, unspecified whether intermodal dispatcher insulin use Type 2 diabetes mellitus without complication, with long-term current use of insulin (HCC) documented in this encounter Additional Health Concerns Assessment Noted Time PHQ-9 Depression Total Score: 3 10/04/19 23 2:21 PM EDT documented as of this encounter Care Teams Carpet Sewing Machine Operator Relationship Specialty Start Date End Date NameAnanda MD [address] [place] [address] PCP - General Family Medicine 06/01/15 Geeta Dove PharmD [address] [place] [address] Pharmacist Internal Medicine 07/21/24 01/26/25 documented as of this encounter
--- OUTSIDE RECORDS SUMMARY | 2025-02-17 11:17 | XMS_ITS | Encounter Summary ---
Author Organization [employer] Address 75 [facility] 7t [place] [address] Care Team Providers Care Neck Band Maker Name Role Phone Name, Ananda CRANDALL Primary Care Provider [phone] Geeta Dove PharmD Unavailable [phone] Reason for Visit * Reason Comments Med Refill Encounter Details Date Type Department Care Team ([facility] st Contact Info) Description 02/28/2023 Refill [facility] 230 [place], [place] [phone] Name, MD Ananda 230 [place] [address] Pain of left leg Social History Tobacco [...] Description 03/17/2025 9:00 AM EST Clinical Support [facility] MEDICINE [address] [place] [address] Sonali Stubbs, COREY [address] [place] [address] 04/05/2025 2:30 PM EST Office Visit [facility] MEDICINE [address] [place] [address] Name, MD Ananda [address] [place] [address] 08/06/2025 9:00 AM EDT Office Visit [facility] OPTOMETRY [address] [place] [address] Natalie Davis, OD [address] [place] [address] documented as of this encounter Visit Diagnoses Diagnosis Pain of left leg documented in this encounter Additional Health Concerns Assessment Noted Time PHQ-9 Depression Total Score: 3 10/04/19 23 2:21 PM EDT documented as of this encounter Care Teams Neck Band Maker Relationship Specialty Start Date End Date NameAnanda MD [address] [place] [address] PCP - General Family Medicine 06/01/15 Geeta Dove PharmD [address] [place] [address] Pharmacist Internal Medicine 07/21/24 01/26/25 documented as of this encounter
--- OUTSIDE RECORDS SUMMARY | 2025-02-17 11:17 | XMS_ITS | Encounter Summary ---
Author Organization [employer] Address [address] [place] [address] 7t [place] [address] Care Team Providers Care Cna Ltc Name Role Phone Name, Ananda CRANDALL Primary Care Provider [phone] Geeta Dove PharmD Unavailable [phone] Reason for Visit * Reason Onset Date Comments Prior Authorization 05/07/2022 Appointment 05/07/2022 Encounter Details Date Type Department Care Team (Late st Contact Info) Description 05/07/2022 Telephone [facility]ULT DENTAL [address] [place] [address] Kelvin Haque DDS [address] [place], [place] [phone] Prior Authorization; Appointment Social History Tobacco Use [...] specify if for partial. Don't see if [facility] has approved partials for patient. Patient verifying. DR documented in this encounter Plan of Treatment Upcoming Encounters Date Type Department Care Team (Late st Contact Info) Description 03/17/2025 9:00 AM EST Clinical Support [facility] MEDICINE [address] [place] [address] Sonali Stubbs, COREY 230 [place] [address] 04/05/2025 2:30 PM EST Office Visit [facility] MEDICINE [address] [place] [address] Name, MD Ananda [address] [place] [address] 08/06/2025 9:00 AM EDT Office Visit [facility] OPTOMETRY [address] [place] [address] Natalie Davis OD [address] [place] [address] documented as of this encounter Visit Diagnoses Not on filedocumented in this encounter Care Teams Cna Ltc Relationship Specialty Start Date End Date Name, MD Ananda [address] [place] [address] PCP - General Family Medicine 06/01/15 Geeta Dove PharmD [address] [place] [address] Pharmacist Internal Medicine 07/21/24 01/26/25 documented as of this encounter
--- OUTSIDE RECORDS SUMMARY | 2025-02-17 11:17 | XMS_ITS | Encounter Summary ---
Author Organization [email or web address] Address [address] [place] [address] 7t [place] [address] Care Team Providers Care Stitch Bonding Machine Operator Name Role Phone Name, Ananda CRANDALL Primary Care Provider [phone] Geeta Dove PharmD Unavailable [phone] Reason for Visit * Reason Comments Med Refill Encounter Details Date Type Department Care Team (Late Contact Info) Description 04/25/2022 Refill [facility] MEDICINE [address] [place] [address] [phone] Name, MD Ananda [address] [place] [address] Wheezing (Primary Dx) Social History Tobacco Use [...] 03/17/2025 9:00 AM EST Clinical Support [facility] MEDICINE [address] [place] [address] Sonali Stubbs, RN [address] [place] [address] 04/05/2025 2:30 PM EST Office Visit [facility] MEDICINE [address] [place] [address] Name, MD Ananda 230 [place] [address] 08/06/2025 9:00 AM EDT Office Visit [facility] OPTOMETRY [address] [place] [address] Natalie Davis, OD [address] [place] [address] documented as of this encounter Visit Diagnoses Diagnosis Wheezing- Primary documented in this encounter Care Teams Stitch Bonding Machine Operator Relationship Specialty Start Date End Date Name, MD Ananda [address] [place] [address] PCP - General Family Medicine 06/01/15 Geeta Dove PharmD [address] [place] [address] Pharmacist Internal Medicine 07/21/24 01/26/25 documented as of this encounter
--- OUTSIDE RECORDS SUMMARY | 2025-02-17 11:17 | XMS_ITS | Encounter Summary ---
Author Organization [employer] Address [address] [place] [address] 7t [place] [address] Care Team Providers Care Diagnostic Imaging Manager Name Role Phone Name, Ananda CRANDALL Primary Care Provider [phone] Geeta Dove PharmD Unavailable [phone] Encounter Details Date Type Department Care Team ([facility] Contact Info) Description 08/13/2022 Abstract [facility] MEDICINE [address] [place] [address] Name, MD Ananda [address] [place] [address] Social History Tobacco Use Types Packs/Day Years [...] Care Team ([facility] Contact Info) Description 03/17/2025 9:00 AM EST Clinical Support [facility] MEDICINE [address] [place] [address] Sonali Stubbs RN 230 [place] [address] 04/05/2025 2:30 PM EST Office Visit [facility] MEDICINE 230 [place] [address] Name, MD Ananda 230 [place] [address] 08/06/2025 9:00 AM EDT Office Visit [facility] OPTOMETRY [address] [place] [address] Natalie Davis, OD [address] [place] [address] documented as of this encounter Procedures Procedure [...] on filedocumented in this encounter Care Teams Diagnostic Imaging Manager Relationship Specialty Start Date End Date Name, MD Ananda [address] [place] [address] PCP - General Family Medicine 06/01/15 Geeta Dove, LoretoD [address] [place] [address]91 Pharmacist Internal Medicine 07/21/24 01/26/25 documented as of this encounter
--- OUTSIDE RECORDS SUMMARY | 2025-02-17 11:17 | XMS_ITS | Encounter Summary ---
Author Organization [employer] Address 75 [facility] 7t [place] [address] Care Team Providers Care Shampooer Name Role Phone Name, Ananda CRANDALL Primary Care Provider [phone] Geeta Dove PharmD Unavailable [phone] Reason for Visit * Reason Comments Med Refill Encounter Details Date Type Department Care Team ([facility] st Contact Info) Description 03/08/2024 Refill [facility] MEDICINE 230 [place], [place] [phone] Name, MD Ananda [address] [place] [address] Chronic obstructive pulmonary disease, unspecified COPD type [...] Clinical Support [facility] MEDICINE [address] [place] [address] Sonali Stubbs, COREY [address] [place] [address] 04/05/2025 2:30 PM EST Office Visit [facility] MEDICINE [address] [place] [address] Ananda Spain MD [address] [place] [address] 08/06/2025 9:00 AM EDT Office Visit [facility] OPTOMETRY [address] [place] [address] Natalie Davis, OD [address] [place] [address] documented as of this encounter Visit Diagnoses Diagnosis Chronic obstructive pulmonary disease, unspecified COPD type (CMS/HCC) (HCC) documented in this encounter Additional Health Concerns Assessment Noted Time PHQ-9 Depression Total Score: 10 024 9:15 AM EDT documented as of this encounter Care Teams Shampooer Relationship Specialty Start Date End Date Ananda Spain MD [address] [place] [address] PCP - General Family Medicine 06/01/15 Geeta Dove, Donte [address] [place] [address] [phone] Pharmacist Internal Medicine 07/21/24 01/26/25 documented as of this encounter
--- OUTSIDE RECORDS SUMMARY | 2025-02-17 11:17 | XMS_ITS | Encounter Summary ---
Author Organization [employer] Address [address] [facility] 7t [place] [address] Care Team Providers Care Drag Out Man Name Role Phone Name, Ananda CRANDALL Primary Care Provider [phone] Geeta Dove PharmD Unavailable [phone] Encounter Details Date Type Department Care Team ([facility] Contact Info) Description 03/28/2023 Abstract [facility] MEDICINE 230 [place], [place] [phone] Name, MD Ananda 230 [place] [address] Social History Tobacco Use Types Packs/Day Years [...] Description 03/17/2025 9:00 AM EST Clinical Support [facility] MEDICINE [address] [place] [address] Sonali Stubbs, COREY [address] [place] [address] 04/05/2025 2:30 PM EST Office Visit [facility] MEDICINE [address] [place] [address] NameAnanda MD [address] [place] [address] 08/06/2025 9:00 AM EDT Office Visit [facility] OPTOMETRY [address] [place] [address] Tarclara Natalie, OD [address] [place] [address] documented as of this encounter Visit Diagnoses Not on filedocumented in this encounter Additional Health Concerns Assessment Noted Time PHQ-9 Depression Total Score: 3 10/04/19 23 2:21 PM EDT documented as of this encounter Care Teams Drag Out Man Relationship Specialty Start Date End Date Ananda Spain MD [address] [place] [address] PCP - General Family Medicine 06/01/15 Geeta Dove PharmD [address] [place] [address]15 Pharmacist Internal Medicine 07/21/24 01/26/25 documented as of this encounter
--- OUTSIDE RECORDS SUMMARY | 2025-02-17 11:17 | XMS_ITS | Encounter Summary ---
Author Organization [employer] Address [address] [facility] [address] 7t [place] [address] Care Team Providers Care Ux Visual Designer Name Role Phone Name, Ananda CRANDALL Primary Care Provider [phone] Geeta Dove PharmD Unavailable [phone] Encounter Details Date Type Department Care Team (Late Contact Info) Description 03/28/2022 Orders Only [facility] MED & PEDS [address] [place] [address] Teresa Moody LPN Social History Tobacco Use [...] Upcoming Encounters Date Type Department Care Team ([facility] Contact Info) Description 03/17/2025 9:00 AM EST Clinical Support [facility] MEDICINE [address] [place], [place] [phone] Sonali Stubbs, COREY 230 [place] [address] 04/05/2025 2:30 PM EST Office Visit [facility] MEDICINE [address] [place] [address] Name, MD Ananda 230 [place] [address] 08/06/2025 9:00 AM EDT Office Visit [facility] OPTOMETRY [address] [place] [address] Natalie Davis, OD [address] [place] [address] documented as of this encounter Visit Diagnoses Not on filedocumented in this encounter Care Teams Ux Visual Designer Relationship Specialty Start Date End Date Name, MD Ananda [address] [place] [address] PCP - General Family Medicine 06/01/15 Geeta Dove PharmD [address] [place] [address] 10615 Pharmacist Internal Medicine 07/21/24 01/26/25 documented as of this encounter
== END ==
LOC: HO.SL 09:40
PROVIDERS: PCP Internal Medicine Geriatric Medicine; Visit Provider Nurse Practitioner Family
DX: R40.0 Somnolence (principal)
CPT/HCPCS: 95806

== ENCOUNTER → 2025-02-22 09:51 | Outpatient (BNV) | payer OTHER, SELFPAY | PROVIDERS: PCP Internal Medicine Geriatric Medicine; Visit Provider Internal Medicine | DX: R06.83 Snoring (principal) | CPT/HCPCS: 95806 ==